=== PATIENT | female | born 1955 | race Caucasian/White ===

== ENCOUNTER 2020-03-13 20:23 | Inpatient (IN) | payer MEDICARE, SELFPAY ==
[2020-03-13 20:30] VITALS: BP 115/49; PULSE 57; RESP 26; TEMP 36.4; O2SAT 95; BMI 35.4
--- NOTE | 2020-03-13 21:36 | ED_ITS ---
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 Mode of arrival: ambulatory Limitations: no limitations History of Present Illness MD complaint: shortness of breath Onset (ago): day(s) (5) Severity: moderate Context: none known Associated symptoms: dry cough and chest pain Asthma History: childhood onset Treatments Prior to Arrival: inhaled bronchodilator Related Data Home Medications Medication Instructions Recorded Confirmed albuterol sulfate [Ventolin HFA] 2 puff PO Q6H PRN 03/14/20 03/14/20 anastrozole 1 tab PO DAILY 03/14/20 03/14/20 aspirin 1 tab PO DAILY 03/14/20 03/14/20 benzonatate 1 cap PO TID PRN 03/14/20 03/14/20 budesonide-formoterol [Symbicort] 2 puff PO Q12H 03/14/20 03/14/20 cholecalciferol (vitamin D3) 1 cap PO DAILY 03/14/20 03/14/20 clotrimazole applic TOPICAL BID 03/14/20 cyanocobalamin (vitamin B-12) 1 tab PO DAILY 03/14/20 03/14/20 diclofenac sodium g TOPICAL BID 03/14/20 fluticasone furoate-vilanterol 1 puff PO DAILY 03/14/20 03/14/20 [Breo Ellipta] furosemide 1 tab PO DAILY 03/14/20 03/14/20 gabapentin 1 tab PO TID 03/14/20 03/14/20 hydroxyzine HCl 1 tab PO DAILY PRN 03/14/20 03/14/20 insulin regular hum U-500 conc unit SUBCUT 03/14/20 [Humulin R U-500 (Conc) Kwikpen] linagliptin [Tradjenta] 1 tab PO DAILY 03/14/20 03/14/20 losartan 1 tab PO DAILY 03/14/20 03/14/20 metformin 1 tab PO DAILY 03/14/20 03/14/20 metoprolol tartrate 1 tab PO TID 03/14/20 03/14/20 mirtazapine 1 tab PO BEDTIME 03/14/20 03/14/20 omega-3 fatty acids-fish oil [Fish 1 cap PO BID 03/14/20 03/14/20 Oil] omeprazole 1 cap PO DAILY 03/14/20 03/14/20 oxycodone-acetaminophen 1 tab PO QID PRN 03/14/20 03/14/20 pravastatin 1 tab PO DAILY 03/14/20 03/14/20 sertraline 1 tab PO QAM 03/14/20 03/14/20 zafirlukast 1 tab PO BID 03/14/20 03/14/20 Allergies Allergy/AdvReac Type Severity Reaction Status Date / Time tramadol [TRAMADOL] Allergy Severe THROAT, Unverified 02/06/20 18:12 LIPS SWELLING, latex [LATEX] Allergy Intermediate RASH Unverified 02/06/20 18:12 IV plastic insert Allergy Unknown Uncoded 12/24/19 00:00 Review of Systems Review of Systems: Constitutional : No Fever, No Chills ENT/Mouth : No sore throat, No Rhinorrhea, No Swallowing Difficulty Eyes: No Eye Pain, No Swelling, No Redness Cardiovascular : positve Chest Pain, positive SOB, No Orthopnea, positive Edema Respiratory : pos Cough, No Sputum, positive Wheezing, positive dyspnea Gastrointestinal : No Nausea, No Vomiting, No Diarrhea, No abdominal Pain, No Hematochezia, No Melena Genitourinary : No Dysuria, No Urinary Frequency, No Hematuria Musculoskeletal : No joint pain, No Myalgias Skin : No Skin Lesions, No rash Neuro : No Weakness, No Numbness, No Dizziness, No Headache Psych : No Anxiety/Panic, No Depression Heme/Lymph: No Bruising, No Lymphadenopathy Endocrine : No Polyuria, No Polydipsia All other systems reviewed and are negative PMFSH Past Medical History Medical History Asthma Breast cancer Depression Diabetes mellitus, type 2 GERD (gastroesophageal reflux disease) Hyperlipidemia Hypertension Surgical History H/O: section Hx of appendectomy Social History Social History (Updated 03/13/20 @ 21:46 by Daylin Joyner DO) Alcohol intake: never Smoking Status: Former smoker Use of substances other than those prescribed or required for medical reasons: No Advance Directives: No Advance Directives Information Provided: Yes Physical Exam Vital Signs: Vital Signs: Vital Signs Temp Pulse Resp BP Pulse Ox 03/14/20 01:28 57 20 117/35 L 99 03/14/20 00:16 60 17 127/46 L 99 03/13/20 23:04 99.3 F 56 181 H 98 03/13/20 22:13 98.5 F 52 14 128/42 L 92 03/13/20 20:30 97.5 F 57 26 H 115/49 L 95 Body Mass Index 35.4 Appearance: Alert. Oriented X3. No acute distress. Eyes: Pupils equal, round and reactive to light. ENT: Pharynx normal. Neck: Normal inspection. Neck supple. CVS: Normal heart rate and rhythm. Pulses normal. Respiratory: No respiratory distress. Breath sounds decreased throughout Abdomen: Soft and nontender. Skin: Skin warm and dry. Normal skin color. Normal skin turgor. Extremities: bilateral pitting edema 1+ ankles, L ankle ttp and foot ttp NV intact, No calf ttp Neuro: Oriented X 3. No motor deficit. No sensory deficit. Course Course Course Narrative: RA sat after neb 90% now 99% on 2L NC, repeat 2.5mg albuterol neb ordered BNP > 1000 which is hightest for patient, IV lasix ordered CTA canceled, ddimer ordered she has CRI, CXR ordered, suspect volume overload, DVT studies ordered, VQ ordered for AM no significant rise in troponin signed out to Dr. Espana pending US and admission Procedures Orthopedic Splinting/Casting Injury #1: Side: left Lower Extremity Injury Location: ankle Lower Extremity Immobilizer: posterior splint and stirrup splint MDM - Asthma MDM Narrative Medical decision making narrative: 64 yo female with hx of breast cancer on oral medications, asthma here with 5 days of dyspnea and chest pain will need labs, CTA:PE given known prior malignancy, 5mg albuterol, IV steroids, rolled her L ankle prior to arrival no other injuries xray of ankle and foot ordered, dispo per results and findings Lab Data Result diagrams: 03/13/20 22:24 03/13/20 23:03 Labs: Lab Results 03/13/20 03/13/20 03/13/20 Range/Units 22:24 22:24 22:24 WBC 13.5 H (4.8-10.8) X10*3/uL RBC 3.66 L (4.20-5.50) X10*6/uL Hgb 10.3 L (12.0-16.0) g/dl Hct 30.7 L (37-47) % MCV 83.9 (80-98) fL MCH 28.1 (27.0-33.0) pg MCHC 33.6 (31.0-35.0) g/dl RDW 14.6 (11.0-16.0) % Plt Count 237 (160-400) X10*3/uL MPV 10.3 (9.4-12.3) fL Immature Gran % (Auto) 1.7 H (0.0-0.4) % Neut % (Auto) 88.6 H (45-73) % Lymph % (Auto) 6.5 L (20-40) % Harding % (Auto) 2.5 (2-11) % Eos % (Auto) 0.4 (0-4) % Baso % (Auto) 0.3 (0-2) % Lymph # (Auto) 0.9 L (1.2-4.9) X10*3/uL Harding # (Auto) 0.3 (0.1-1.2) X10*3/uL Eos # (Auto) 0.1 (0.0-0.4) X10*3/uL Baso # (Auto) 0.0 (0.0-0.2) X10*3/uL Abs Immat Gran (auto) 0.23 H (0.00-0.03) X10*3/uL Absolute Neuts (auto) 11.9 H (2.0-8.3) X10*3/uL Absolute Nucleated RBC 0.000 (0.0-0.012) X10*3/uL Nucleated RBC % (auto) 0.0 (0.0-0.2) /100WBC PT 11.8 (10.8-13.0) SEC INR 1.0 (0.9-1.1) APTT 31.5 (24.1-38.0) SEC D-Dimer 805 NG/ML Sodium (135-145) mmol/L Potassium (3.3-5.1) mmol/l Chloride (96-108) mmol/L Carbon Dioxide (22-29) mmol/L Anion Gap (12-20) BUN (9-16) mg/dL Creatinine (0.5-1.4) mg/dL Estim Creat Clear Calc Estimated GFR Random Glucose (60-115) mg/dL Lactic Acid (0.5-2.0) mmol/L Calcium (8.4-10.2) mg/dL Troponin I High Sens 112.5 H (<3.5-17.0) ng/L B-Natriuretic Peptide 1028 H (<100) pg/mL Coronavirus (PCR) (Negative) 03/13/20 03/13/20 03/13/20 Range/Units 23:03 23:04 23:51 WBC (4.8-10.8) X10*3/uL RBC (4.20-5.50) X10*6/uL Hgb (12.0-16.0) g/dl Hct (37-47) % MCV (80-98) fL MCH (27.0-33.0) pg MCHC (31.0-35.0) g/dl RDW (11.0-16.0) % Plt Count (160-400) X10*3/uL MPV (9.4-12.3) fL Immature Gran % (Auto) (0.0-0.4) % Neut % (Auto) (45-73) % Lymph % (Auto) (20-40) % Harding % (Auto) (2-11) % Eos % (Auto) (0-4) % Baso % (Auto) (0-2) % Lymph # (Auto) (1.2-4.9) X10*3/uL Harding # (Auto) (0.1-1.2) X10*3/uL Eos # (Auto) (0.0-0.4) X10*3/uL Baso # (Auto) (0.0-0.2) X10*3/uL Abs Immat Gran (auto) (0.00-0.03) X10*3/uL Absolute Neuts (auto) (2.0-8.3) X10*3/uL Absolute Nucleated RBC (0.0-0.012) X10*3/uL Nucleated RBC % (auto) (0.0-0.2) /100WBC PT (10.8-13.0) SEC INR (0.9-1.1) APTT (24.1-38.0) SEC D-Dimer NG/ML Sodium 137 (135-145) mmol/L Potassium 5.6 H (3.3-5.1) mmol/l Chloride 103 (96-108) mmol/L Carbon Dioxide 22 (22-29) mmol/L Anion Gap 18 (12-20) BUN 30 H (9-16) mg/dL Creatinine 1.57 H (0.5-1.4) mg/dL Estim Creat Clear Calc 29.8 Estimated GFR 33 Random Glucose 136 H (60-115) mg/dL Lactic Acid 1.8 (0.5-2.0) mmol/L Calcium 8.7 (8.4-10.2) mg/dL Troponin I High Sens (<3.5-17.0) ng/L B-Natriuretic Peptide (<100) pg/mL Coronavirus (PCR) NEGATIVE (Negative) 03/14/20 Range/Units 00:35 WBC (4.8-10.8) X10*3/uL RBC (4.20-5.50) X10*6/uL Hgb (12.0-16.0) g/dl Hct (37-47) % MCV (80-98) fL MCH (27.0-33.0) pg MCHC (31.0-35.0) g/dl RDW (11.0-16.0) % Plt Count (160-400) X10*3/uL MPV (9.4-12.3) fL Immature Gran % (Auto) (0.0-0.4) % Neut % (Auto) (45-73) % Lymph % (Auto) (20-40) % Harding % (Auto) (2-11) % Eos % (Auto) (0-4) % Baso % (Auto) (0-2) % Lymph # (Auto) (1.2-4.9) X10*3/uL Harding # (Auto) (0.1-1.2) X10*3/uL Eos # (Auto) (0.0-0.4) X10*3/uL Baso # (Auto) (0.0-0.2) X10*3/uL Abs Immat Gran (auto) (0.00-0.03) X10*3/uL Absolute Neuts (auto) (2.0-8.3) X10*3/uL Absolute Nucleated RBC (0.0-0.012) X10*3/uL Nucleated RBC % (auto) (0.0-0.2) /100WBC PT (10.8-13.0) SEC INR (0.9-1.1) APTT (24.1-38.0) SEC D-Dimer NG/ML Sodium (135-145) mmol/L Potassium (3.3-5.1) mmol/l Chloride (96-108) mmol/L Carbon Dioxide (22-29) mmol/L Anion Gap (12-20) BUN (9-16) mg/dL Creatinine (0.5-1.4) mg/dL Estim Creat Clear Calc Estimated GFR Random Glucose (60-115) mg/dL Lactic Acid (0.5-2.0) mmol/L Calcium (8.4-10.2) mg/dL Troponin I High Sens 125.5 H (<3.5-17.0) ng/L B-Natriuretic Peptide (<100) pg/mL Coronavirus (PCR) (Negative) ECG Data Attestation: I personally reviewed and interpreted this ECG as follows: ECG interpretation date: 03/13/20 ECG interpretation time: 22:21 Interpretation: Rate: 51 Rhythm: sinus bradycardia Jackson: normal Normal P waves. Normal [place]. Normal QRS complex. ST T wave : normal qTC: normal prior studies: no acute ischemia The study has been interpreted contemporaneously by me. . Discharge Plan Discharge Clinical Impression: Elevated troponin Asthma with acute exacerbation Qualifiers: Asthma severity: moderate Asthma persistence: persistent Qualified Code(s): J45.41 - Moderate persistent asthma with (acute) exacerbation Fibula fracture Qualifiers: Encounter type: initial encounter Fibula location: distal Fracture type: closed Fracture morphology: other fracture Laterality: left Qualified Code(s): S82.832A - Other fracture of upper and lower end of left fibula, initial encounter for closed fracture Congestive heart failure Qualifiers: Heart failure type: unspecified Heart failure chronicity: acute Qualified Code(s): I50.9 - Heart failure, unspecified Prescriptions: No Action furosemide 40 mg tablet 1 tab PO DAILY RF: 0 metformin 500 mg tablet 1 tab PO DAILY RF: 0 anastrozole 1 mg tablet 1 tab PO DAILY RF: 0 gabapentin 600 mg tablet 1 tab PO TID RF: 0 sertraline 100 mg tablet 1 tab PO QAM RF: 0 cyanocobalamin (vitamin B-12) 1,000 mcg tablet 1 tab PO DAILY RF: 0 aspirin 81 mg tablet,delayed release (DR/EC) 1 tab PO DAILY RF: 0 oxycodone-acetaminophen 5-325 mg tablet 1 tab PO QID PRN (Reason: pain) RF: 0 pravastatin 80 mg tablet 1 tab PO DAILY RF: 0 benzonatate 100 mg capsule 1 cap PO TID PRN (Reason: cough) RF: 0 zafirlukast 20 mg tablet 1 tab PO BID RF: 0 omeprazole 20 mg capsule,delayed release(DR/EC) 1 cap PO DAILY RF: 0 mirtazapine 15 mg tablet 1 tab PO BEDTIME RF: 0 albuterol sulfate [Ventolin HFA] 90 mcg/actuation HFA aerosol inhaler 2 puff PO Q6H PRN (Reason: wheezing) RF: 0 hydroxyzine HCl 10 mg tablet 1 tab PO DAILY PRN (Reason: itch) RF: 0 losartan 100 mg tablet 1 tab PO DAILY RF: 0 clotrimazole 1 % cream topical BID RF: 0 cholecalciferol (vitamin D3) 125 mcg (5,000 unit) capsule 1 cap PO DAILY RF: 0 metoprolol tartrate 25 mg tablet 1 tab PO TID RF: 0 Fish Oil 340-1,000 mg capsule 1 cap PO BID RF: 0 budesonide-formoterol [Symbicort] 160-4.5 mcg/actuation HFA aerosol inhaler 2 puff PO Q12H RF: 0 diclofenac sodium 1 % gel topical BID RF: 0 Tradjenta 5 mg tablet 1 tab PO DAILY RF: 0 Breo Ellipta 100-25 mcg/dose blister with device 1 puff PO DAILY RF: 0 Humulin R U-500 (Conc) Kwikpen 500 unit/mL (3 mL) insulin pen subcut RF: 0
--- NOTE | 2020-03-13 21:39 | ECG_ITS ---
Test Reason : SOB Blood Pressure : / mmHG Vent. Rate : 051 BPM Atrial Rate : 051 BPM P-R Int : 150 ms QRS Dur : 072 ms QT Int : 434 ms P-R-T Axes : 073 013 057 degrees QTc Int : 400 ms Sinus bradycardia Otherwise normal ECG When compared with ECG of 14-JUL-2019 10:10, Heart rate has decreased Referred By: Daylin Joyner Electronically Signed By:KIMANI FISCHER MD
[2020-03-13] MEDS: Albuterol Sulfate (0.083%) 2.5 MG/3 ML VIAL.NEB 5 MG INHALE (21:47)
--- NOTE | 2020-03-13 21:48 | XR_ITS ---
EXAMINATION: LEFT FOOT. LEFT ANKLE. CLINICAL INFORMATION: Fall. COMPARISON: None TECHNIQUE: 2 views left foot and 2 views left ankle. FINDINGS: LEFT ANKLE: There is a nondisplaced distal fibular fracture with moderate lateral malleolar soft tissue swelling. No additional fractures seen. The ankle mortise and subtalar joints are normal. LEFT FOOT: There is no visible acute fracture, dislocation or subluxation seen. There is a moderate retrocalcaneal heel spur. Soft tissues are unremarkable. XR/XR ankle LT 2V IMPRESSION: Nondisplaced oblique fracture distal fibula with moderate lateral malleolar soft tissue swelling. Unremarkable left foot exam except for a moderate-sized retrocalcaneal heel spur.
--- NOTE | 2020-03-13 21:48 | XR_ITS ---
EXAMINATION: LEFT FOOT. LEFT ANKLE. CLINICAL INFORMATION: Fall. COMPARISON: None TECHNIQUE: 2 views left foot and 2 views left ankle. FINDINGS: LEFT ANKLE: There is a nondisplaced distal fibular fracture with moderate lateral malleolar soft tissue swelling. No additional fractures seen. The ankle mortise and subtalar joints are normal. LEFT FOOT: There is no visible acute fracture, dislocation or subluxation seen. There is a moderate retrocalcaneal heel spur. Soft tissues are unremarkable. XR/XR foot LT 2V IMPRESSION: Nondisplaced oblique fracture distal fibula with moderate lateral malleolar soft tissue swelling. Unremarkable left foot exam except for a moderate-sized retrocalcaneal heel spur.
[2020-03-13 22:13] VITALS: BP 128/42; PULSE 52; RESP 14; TEMP 36.9; O2SAT 92
[2020-03-13] MEDS: methylPREDNISolone Sod Succ/PF 125 MG/2 ML VIAL 60 MG IVPUSH (22:29)
[2020-03-13 22:31] LABS: MANUAL DIFF FLAG NO
[2020-03-13 22:32] LABS: Basophils Percent Auto 0.3 % (0-2); Eosinophils Absolute Auto 0.1 X10*3/uL (0.0-0.4); Eosinophils Percent Auto 0.4 % (0-4); Hematocrit 30.7 % (37-47); Hemoglobin 10.3 g/dl (12.0-16.0); Imm Gran Abs Auto 0.23 X10*3/uL (0.00-0.03); Imm Gran Pct Auto 1.7 % (0.0-0.4); Lymphocytes Absolute Auto 0.9 X10*3/uL (1.2-4.9); Lymphocytes Percent Auto 6.5 % (20-40); Mean Corpuscular HGB Conc 33.6 g/dl (31.0-35.0); Mean Corpuscular Hemoglobin 28.1 pg (27.0-33.0); Mean Corpuscular Volume 83.9 fL (80-98); Mean Platelet Volume 10.3 fL (9.4-12.3); Monocytes Absolute Auto 0.3 X10*3/uL (0.1-1.2); Monocytes Percent Auto 2.5 % (2-11); Neutrophils Absolute Auto 11.9 X10*3/uL (2.0-8.3); Neutrophils Percent Auto 88.6 % (45-73); Platelet Count 237 X10*3/uL (160-400); Red Blood Count 3.66 X10*6/uL (4.20-5.50); Red Cell Distribution Width 14.6 % (11.0-16.0); White Blood Count 13.5 X10*3/uL (4.8-10.8)
[2020-03-13] MEDS: Albuterol Sulfate (0.083%) 2.5 MG/3 ML VIAL.NEB INHALE (22:33)
[2020-03-13] MEDS: Morphine Sulfate 4 MG/ML CARTRIDGE IVPUSH (22:33)
[2020-03-13] MEDS: ondansetron HCL 4 MG/2 ML VIAL IVPUSH (22:34)
[2020-03-13 22:40] LABS: Prothrombin Time 11.8 SEC (10.8-13.0)
[2020-03-13 22:43] LABS: Partial Thromboplastin Time 31.5 SEC (24.1-38.0)
--- NOTE | 2020-03-13 22:49 | PC.NURSE ---
Pt desat to 90-92 on room air, lung sounds remain diminished throughout, speaks in clear and full sentences. tech at bedside to apply l ankle cast
[2020-03-13 23:04] VITALS: PULSE 56; RESP 181; TEMP 37.4; O2SAT 98
--- NOTE | 2020-03-13 23:05 | PC.NURSE ---
report taken from olamide. pt has recieved two breathing treatments hx of asthma requires oxygen aty this time desats to 90's without. does not rely on oxygen at home. 98% on 2 nc. otherwise patient stable. plan for more labs, bc x 2
[2020-03-13 23:07] LABS: Troponin-I High Sensitivity 112.5 ng/L (<3.5-17.0)
[2020-03-13 23:48] LABS: B Type Natriuretic Peptide 1028 pg/mL (<100)
[2020-03-13] MEDS: Aspirin 81 MG TAB.CHEW 162 MG PO (23:50)
[2020-03-13 23:55] LABS: Lactic Acid 1.8 mmol/L (0.5-2.0)
[2020-03-13 23:57] LABS: Anion Gap 18 (12-20); Blood Urea Nitrogen 30 mg/dL (9-16); Calcium 8.7 mg/dL (8.4-10.2); Carbon Dioxide 22 mmol/L (22-29); Chloride 103 mmol/L (96-108); Creatinine Clr Calc Pharmacy 29.8; Estimated Glomerular Filt Rate 33; Glucose Random 136 mg/dL (60-115); Potassium 5.6 mmol/l (3.3-5.1); Sodium 137 mmol/L (135-145)
[2020-03-14] VITALS (9 sets, daily range): BP systolic 112–153; BP diastolic 35–76; PULSE 54–60; RESP 16–24; TEMP 35.9–36.8; O2SAT 95–99
--- NOTE | 2020-03-14 | NM_ITS ---
EXAMINATION: NM LUNG IMAGE PERFUSION CLINICAL INFORMATION: Worsening SOB. Elevated d-dimer. COMPARISON: None TECHNIQUE: Following intravenous administration of 4 mCi of technetium 99m MAA images of both lungs are obtained in multiple projections. Ventilation study was not performed. FINDINGS: There is normal perfusion seen to all segments of both both lobes of the lungs. No perfusion defects seen. NM/NM pul perfusion IMPRESSION: Normal perfusion scan.
--- NOTE | 2020-03-14 00:01 | XR_ITS ---
EXAMINATION: XR CHEST CLINICAL INFORMATION: Dyspnea COMPARISON: 07/14/2019 TECHNIQUE: Frontal view of the chest was obtained. FINDINGS: Lung volumes are symmetric. No focal consolidation is seen. Mild right basilar atelectasis is suspected, similar to prior accounting for differences in patient positioning. No evidence of pneumothorax or pleural effusion. Cardiac size appears within normal limits, with assessment somewhat limited due to patient rotation. No acute osseous findings are seen. Right axillary clips are noted. XR/XR chest 1V IMPRESSION: No acute cardiopulmonary findings. Suspect mild right basilar atelectasis.
[2020-03-14] MEDS: Furosemide 20 MG/2 ML VIAL IVPUSH ×2 (00:24→00:55)
[2020-03-14 00:28] LABS: D Dimer 805 NG/ML
--- NOTE | 2020-03-14 00:39 | US_ITS ---
EXAMINATION: US VENOUS ULTRASOUND WITH DOPPLER LOWER EXTREMITY, BILATERAL CLINICAL INFORMATION: Pain, swelling COMPARISON: None TECHNIQUE: Ultrasound of the deep veins is performed from the hip to the calf with compression sonography and color and pulse Doppler assessment. Spectral analysis with color-flow imaging is performed. FINDINGS: RIGHT: There is normal venous compression and respiratory variation and augmented flow. The visualized common femoral vein, superficial femoral vein, profunda femoral vein, popliteal vein, and the trifurcation region shows no evidence of deep venous thrombosis. There is no significant popliteal fossa cyst. LEFT: There is normal venous compression and respiratory variation and augmented flow. The visualized common femoral vein, superficial femoral vein, profunda femoral vein, popliteal vein, and the trifurcation region shows no evidence of deep venous thrombosis. Of note, the posterior tibial vein could not be imaged due to presence of a cast. There is no significant popliteal fossa cyst. If the patient's symptoms persist, followup ultrasound in 5 days 7 days might be of value to exclude proximal propagation from a non-visualized calf vein. US/US venous duplex LE BI IMPRESSION: No DVT demonstrated in the bilateral lower extremities.
--- NOTE | 2020-03-14 00:56 | PC.NURSE ---
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
[2020-03-14 01:07] LABS: SARS COV2 PCR INHOUSE NEGATIVE (Negative)
[2020-03-14 01:32] LABS: Troponin-I High Sensitivity 125.5 ng/L (<3.5-17.0)
--- NOTE | 2020-03-14 01:50 | PC.NURSE ---
us at bedside
[2020-03-14 01:54] LABS: Alanine Aminotransferase 84 U/L (0-31); Albumin Level 3.5 g/dL (3.5-5.0); Alkaline Phosphatase 136 U/L (39-117); Anion Gap 17 (12-20); Aspartate Amino Transferase 82 U/L (5-31); Bilirubin Direct 0.2 mg/dL (0.0-0.5); Bilirubin Total 0.5 mg/dL (0.0-1.0); Blood Urea Nitrogen 29 mg/dL (9-16); Calcium 8.3 mg/dL (8.4-10.2); Carbon Dioxide 22 mmol/L (22-29); Chloride 102 mmol/L (96-108); Creatinine Clr Calc Pharmacy 30.3; Estimated Glomerular Filt Rate 34; Glucose Random 158 mg/dL (60-115); Magnesium 1.8 mg/dL (1.6-2.6); Potassium 6.2 mmol/l (3.3-5.1); Sodium 135 mmol/L (135-145); Total Protein 6.6 g/dL (6.5-8.0)
--- NOTE | 2020-03-14 02:40 | PC.NURSE ---
pt up to bed side commode with 1 assist. pt voided 650 cc or urine.
--- NOTE | 2020-03-14 03:28 | PC.NURSE ---
hospitalist at bedside
[2020-03-14 03:54] LABS: Anion Gap 17 (12-20); Blood Urea Nitrogen 30 mg/dL (9-16); Calcium 8.7 mg/dL (8.4-10.2); Carbon Dioxide 24 mmol/L (22-29); Chloride 103 mmol/L (96-108); Creatinine Clr Calc Pharmacy 29.6; Estimated Glomerular Filt Rate 33; Glucose Random 90 mg/dL (60-115); Potassium 4.9 mmol/l (3.3-5.1); Sodium 139 mmol/L (135-145)
--- NOTE | 2020-03-14 04:18 | PM.IMHP ---
History of Present Illness Date of Service: 03/14/20 Chief Complaint: SOB 64 y/o female with extensive PMHX including Asthma who presented from home due to worsening SOB. Per history provided by the patient, her symptoms started approximately 10 days, which was precipitated more with exertion. Was seen by her PCP and started on prednisone 5 days ago but her symptoms did not improve. Now reports symptoms even at rest. While waiting today to come to the ED patient tripped and fell on the floor hiting her left foot on impact. On presentation to the ED patient is found to be hemodynamically stable, no evidence of fever. WBC of 13.5, creatinine of 1.5 (baseline), LFT's / alk phosph elevated, troponin from 112 to 125.5, BNP of 1028. Covid negative. Patient was given several doses of albuterol inhaler as well as lasix IV and solu-medrol. D dimer found to be elevated which raised concern for possible PE. Dopple of LE negative for DVT. Left foot xray positive for nondisplace oblique fracture of distal fibula. CXR clear, possible evidence of atelectasis. Decision for admission was given. Patient seen and examined at the bedside, laying down in bed in no acute distress. ROS as above otherwise negative. Physical exam positive for decreased bilateral breath sounds, no rales or wheezes on exam. Pitting edema +1 of bilateral LE, Cast of the left foot is evident. PMHX: 1. Type 2 diabetes mellitus. 2. Hyperlipidemia. 3. Hypertension. 4. Depression. 5. Insomnia. 6. Obstructive sleep apnea, for which she uses CPAP. 7. CKD stage III. 8. Moderate persistent asthma. 9. GERD 10.Sciatica PSX: 1. Right shoulder surgery. 2. section x3. 3. Cholecystectomy. 4. Total abdominal hysterectomy. Toxic habits: No hx of alcohol abuse, smoking or IVDA Review of Systems Cardiovascular: Cardiovascular: Reports dyspnea Respiratory: Respiratory: Reports dyspnea [facility] Medical History (Updated 03/14/20 @ 04:43 by Davonte Virk MD) Asthma Breast cancer Depression Diabetes mellitus, type 2 GERD (gastroesophageal reflux disease) Hyperlipidemia Hypertension Functional capacity: independent ambulation Surgical History H/O: section Hx of appendectomy Social History Alcohol intake: never Smoking Status: Former smoker Use of substances other than those prescribed or required for medical reasons: No Advance Directives: No Advance Directives Information Provided: Yes Meds Allergies Allergy/AdvReac Type Severity Reaction Status Date / Time tramadol [TRAMADOL] Allergy Severe THROAT, Unverified 02/06/20 18:12 LIPS SWELLING, latex [LATEX] Allergy Intermediate RASH Unverified 02/06/20 18:12 IV plastic insert Allergy Unknown Uncoded 12/24/19 00:00 Home Medications Medication Instructions Recorded Confirmed Type albuterol sulfate [Ventolin HFA] 2 puff PO Q6H PRN 03/14/20 03/14/20 History anastrozole 1 tab PO DAILY 03/14/20 03/14/20 History aspirin 1 tab PO DAILY 03/14/20 03/14/20 History benzonatate 1 cap PO TID PRN 03/14/20 03/14/20 History budesonide-formoterol [Symbicort] 2 puff PO Q12H 03/14/20 03/14/20 History cholecalciferol (vitamin D3) 1 cap PO DAILY 03/14/20 03/14/20 History clotrimazole applic TOPICAL BID 03/14/20 History cyanocobalamin (vitamin B-12) 1 tab PO DAILY 03/14/20 03/14/20 History diclofenac sodium g TOPICAL BID 03/14/20 History fluticasone furoate-vilanterol 1 puff PO DAILY 03/14/20 03/14/20 History [Breo Ellipta] furosemide 1 tab PO DAILY 03/14/20 03/14/20 History gabapentin 1 tab PO TID 03/14/20 03/14/20 History hydroxyzine HCl 1 tab PO DAILY PRN 03/14/20 03/14/20 History insulin regular hum U-500 conc unit SUBCUT 03/14/20 History [Humulin R U-500 (Conc) Kwikpen] linagliptin [Tradjenta] 1 tab PO DAILY 03/14/20 03/14/20 History losartan 1 tab PO DAILY 03/14/20 03/14/20 History metformin 1 tab PO DAILY 03/14/20 03/14/20 History metoprolol tartrate 1 tab PO TID 03/14/20 03/14/20 History mirtazapine 1 tab PO BEDTIME 03/14/20 03/14/20 History omega-3 fatty acids-fish oil [Fish 1 cap PO BID 03/14/20 03/14/20 History Oil] omeprazole 1 cap PO DAILY 03/14/20 03/14/20 History oxycodone-acetaminophen 1 tab PO QID PRN 03/14/20 03/14/20 History pravastatin 1 tab PO DAILY 03/14/20 03/14/20 History sertraline 1 tab PO QAM 03/14/20 03/14/20 History zafirlukast 1 tab PO BID 03/14/20 03/14/20 History Physical Exam Vital Signs and Narrative: Vital Signs: Last Vital Signs Temp 99.3 F 03/13/20 23:04 Pulse 56 03/14/20 03:45 Resp 20 03/14/20 03:45 BP 153/67 H 03/14/20 03:45 Pulse Ox 95 03/14/20 03:45 Body Mass Index 35.4 Const: General: cooperative, healthy appearing and comfortable Orientation/consciousness: oriented to person, oriented to place and oriented to time HENMT: Head: Yes normal to inspection Eyes: General: appearance normal, both eyes and all related structures Neck: Yes normal visual inspection Chest: Chest palpation & inspection: normal inspection of the chest Resp: Effort & Inspection: normal respiratory effort Auscultation: diminished lung sounds Cardio: Jugular venous distension: no JVD Rate: regular rate Rhythm: regular rhythm Heart sounds: S1 normal heart sound present and S2 normal heart sound present GI: Inspection: Yes normal to inspection Skin: General skin exam: no rashes or lesions noted Neuro: General: oriented to person, oriented to place and oriented to time Extrem: Left lower extremity: full ROM (Cast applied to Left foot) Psych: Appearance: grossly normal Results Labs Labs: Laboratory Tests 03/13/20 03/13/20 03/13/20 22:24 22:24 22:24 WBC 13.5 H RBC 3.66 L Hgb 10.3 L Hct 30.7 L MCV 83.9 MCH 28.1 MCHC 33.6 RDW 14.6 Plt Count 237 MPV 10.3 Immature Gran % (Auto) 1.7 H Neut % (Auto) 88.6 H Lymph % (Auto) 6.5 L [place] % (Auto) 2.5 Eos % (Auto) 0.4 Baso % (Auto) 0.3 Lymph # (Auto) 0.9 L [place] # (Auto) 0.3 Eos # (Auto) 0.1 Baso # (Auto) 0.0 Abs Immat Gran (auto) 0.23 H Absolute Neuts (auto) 11.9 H Absolute Nucleated RBC 0.000 Nucleated RBC % (auto) 0.0 PT 11.8 INR 1.0 APTT 31.5 D-Dimer 805 Sodium 135 Potassium 6.2 H* Chloride 102 Carbon Dioxide 22 Anion Gap 17 BUN 29 H Creatinine 1.54 H Estim Creat Clear Calc 30.3 Estimated GFR 34 Random Glucose 158 H Lactic Acid Calcium 8.3 L Magnesium 1.8 Total Bilirubin 0.5 Direct Bilirubin 0.2 AST 82 H ALT 84 H Alkaline Phosphatase 136 H Troponin I High Sens B-Natriuretic Peptide Total Protein 6.6 Albumin 3.5 Coronavirus (PCR) 03/13/20 03/13/20 03/13/20 22:24 23:03 23:04 WBC RBC Hgb Hct MCV MCH MCHC RDW Plt Count MPV Immature Gran % (Auto) Neut % (Auto) Lymph % (Auto) [place] % (Auto) Eos % (Auto) Baso % (Auto) Lymph # (Auto) [place] # (Auto) Eos # (Auto) Baso # (Auto) Abs Immat Gran (auto) Absolute Neuts (auto) Absolute Nucleated RBC Nucleated RBC % (auto) PT INR APTT D-Dimer Sodium 137 Potassium 5.6 H Chloride 103 Carbon Dioxide 22 Anion Gap 18 BUN 30 H Creatinine 1.57 H Estim Creat Clear Calc 29.8 Estimated GFR 33 Random Glucose 136 H Lactic Acid 1.8 Calcium 8.7 Magnesium Total Bilirubin Direct Bilirubin AST ALT Alkaline Phosphatase Troponin I High Sens 112.5 H B-Natriuretic Peptide 1028 H Total Protein Albumin Coronavirus (PCR) 03/13/20 03/14/20 03/14/20 23:51 00:35 03:13 WBC RBC Hgb Hct MCV MCH MCHC RDW Plt Count MPV Immature Gran % (Auto) Neut % (Auto) Lymph % (Auto) [place] % (Auto) Eos % (Auto) Baso % (Auto) Lymph # (Auto) [place] # (Auto) Eos # (Auto) Baso # (Auto) Abs Immat Gran (auto) Absolute Neuts (auto) Absolute Nucleated RBC Nucleated RBC % (auto) PT INR APTT D-Dimer Sodium 139 Potassium 4.9 Chloride 103 Carbon Dioxide 24 Anion Gap 17 BUN 30 H Creatinine 1.58 H Estim Creat Clear Calc 29.6 Estimated GFR 33 Random Glucose 90 Lactic Acid Calcium 8.7 Magnesium Total Bilirubin Direct Bilirubin AST ALT Alkaline Phosphatase Troponin I High Sens 125.5 H B-Natriuretic Peptide Total Protein Albumin Coronavirus (PCR) NEGATIVE Assessment and Plan (1) Asthma with acute exacerbation: Qualifiers: Asthma persistence: persistent Asthma severity: moderate Qualified Code(s): J45.41 - Moderate persistent asthma with (acute) exacerbation Status: Acute S/p multiple dose of albuterol treatment and one dose of solumedrol continue with Solumedrol as ordered and taper down as tolerated Continue with O2 therapy and titrate off as tolerated Will not start antbx given there is no evidence of any acute infectious process in the lung Covid test negative Ventilation-perfusion scan ordered to r/o PE (PE unlikely given no risk factors, elevation likely due to poor renla function). Doppler LE negative for DVT (2) Congestive heart failure: Qualifiers: Heart failure chronicity: acute Heart failure type: unspecified Qualified Code(s): I50.9 - Heart failure, unspecified Status: Acute S/p Lasix diuresis in the ED Continue with small IV lasix dose as ordered Follow up 2D echo in the am Cardiology consult in the am (3) Fibula fracture: Qualifiers: Encounter type: initial encounter Fibula location: distal Fracture morphology: other fracture Fracture type: closed Laterality: left Qualified Code(s): S82.832A - Other fracture of upper and lower end of left fibula, initial encounter for closed fracture Status: Acute Cast in place in LLE Ambulate as tolerated with NWB of LLE (4) Transaminitis: Status: Acute unknown etiology follow up US abdomen (5) Elevated troponin: Status: Acute Elevated troponin likely due to renal dysfunction troponin from 112 to 125.5. No evidence of chest pain Will continue to monitor for now quality assurance monitor chassis Cardiology evaluation in the am (6) D-dimer, elevated: Status: Acute Plan as stated above (7) Hypertension: Status: Acute conitnue with losartan home dose continue with aspirin home dose continue with metoprolol home dose (8) Diabetes mellitus, type 2: Status: Acute continue with insulin regimen as ordered (9) Peripheral neuropathy: Status: Acute continue with gabapentin home dose (10) CKD (chronic kidney disease): Status: Acute creatinine level baseline 1.5 (11) Hyperlipidemia: Status: Acute continue with statin home dose (12) Depression: Status: Acute continue with antidepressants home dose (13) Breast cancer: Problem details: s/p radiation and currently on oral hormones Status: Acute continue with anastrazole home dose
--- NOTE | 2020-03-14 05:20 | PC.NURSE ---
pending report to floor
--- NOTE | 2020-03-14 05:20 | PC.NURSE ---
pending report to floor
--- NOTE | 2020-03-14 05:51 | PC.NURSE ---
report given to ioana brooks on floor 462/2
[2020-03-14] MEDS: Heparin Sodium,Porcine 5,000 UNIT/ML VIAL 5000 UNIT SUBCUT ×3 (06:29→21:38)
[2020-03-14 08:10] LABS: Glucose, Whole Blood 96 mg/dL (60-115)
[2020-03-14] MEDS: Flu Vacc QS2020-21(6mos up)/PF 0.5 ML SYRINGE IM (08:25)
[2020-03-14] MEDS: Cholecalciferol (Vitamin D3) 25 MCG TABLET 125 MCG PO (08:30)
[2020-03-14] MEDS: 0.9 % Sodium Chloride Flush 3 ML SYRINGE IVFLUSH ×2 (08:30→15:55)
[2020-03-14] MEDS: Anastrozole 1 MG TABLET PO (08:30)
[2020-03-14] MEDS: Pravastatin Sodium 80 MG TABLET PO (08:31)
[2020-03-14] MEDS: Metoprolol Tartrate 25 MG TABLET PO ×3 (08:31→21:37)
[2020-03-14] MEDS: Aspirin Enteric Coated 81 MG TABLET.DR PO (08:31)
[2020-03-14] MEDS: Omeprazole 20 MG CAPSULE.DR PO (08:31)
[2020-03-14] MEDS: Losartan Potassium 50 MG TABLET 100 MG PO (08:31)
[2020-03-14] MEDS: Gabapentin 600 MG TABLET PO ×3 (08:31→21:37)
[2020-03-14 11:16] LABS: Glucose, Whole Blood 283 mg/dL (60-115)
--- NOTE | 2020-03-14 12:51 | PM.CNCAR ---
History of Present Illness History of Present Illness Date of Consult: March 14, 2020 Requesting physician: Salazar Short Chief complaint: ASTHMA/ASTHMA EXACERBATION/CHF EXACERBATION Narrative: This is a cardiology consultation regarding shortness of breath. Patient has numerous medical comorbidities. Current admission is for shortness of breath. She apparently has a history of asthma but no known cardiac problems. Denies any history of coronary disease myocardial infarction or cardiomyopathy or congestive heart failure or in fact any other cardiac issues in the past. The last several days, she has been getting increasingly shortness of breath. Apparently seen by PCP and put on prednisone but things did not get better. While waiting to come to the ER, she is somewhat tripped and fell down and hit her left foot on impact. So far, COVID negative. She is being treated for possible congestive heart failure as well as asthma exacerbation. Additionally, foot x-ray on the left side shows nondisplaced fracture of the distal fibula. Otherwise, she denies any clear anginal-type symptoms but has had nonspecific chest pains at different times. Review of Systems Review of Systems: Cardiac-positive for shortness of breath. No clear anginal-type symptoms. Mild leg swelling. No dizzy spells or syncopal episodes. Remainder of the 10 system review is negative. [facility] Past Medical History Medical History Asthma Breast cancer Depression Diabetes mellitus, type 2 GERD (gastroesophageal reflux disease) Hyperlipidemia Hypertension Functional capacity: independent ambulation Surgical History Surgical History H/O: section Hx of appendectomy Social History Social History Household Members: Spouse Housing: Apartment Do you presently have visiting nurse or other home services: No Alcohol intake: never Smoking Status: Former smoker Use of substances other than those prescribed or required for medical reasons: No Have you been hit, kicked, punched, or otherwise hurt by someone within the past year? If so, by whom?: No Do you feel safe in your current relationship?: Yes Is there a partner from a previous relationship who is making you feel unsafe now?: No Are you made to feel afraid or neglected: No [employer] Healthcare Practices: [employer] Advance Directives: No Advance Directives Information Provided: Yes Do you have thoughts of harming others: None Do you have a plan to hurt others: No Plan Recently lost weight without trying: Unsure Meds Allergies Allergy/AdvReac Type Severity Reaction Status Date / Time tramadol [TRAMADOL] Allergy Severe THROAT, Unverified 02/06/20 18:12 LIPS SWELLING, latex [LATEX] Allergy Intermediate RASH Unverified 02/06/20 18:12 IV plastic insert Allergy Unknown Uncoded 12/24/19 00:00 Home Medications Medication Instructions Recorded Confirmed Type albuterol sulfate [Ventolin HFA] 2 puff PO Q6H PRN 03/14/20 03/14/20 History anastrozole 1 tab PO DAILY 03/14/20 03/14/20 History aspirin 1 tab PO DAILY 03/14/20 03/14/20 History benzonatate 1 cap PO TID PRN 03/14/20 03/14/20 History budesonide-formoterol [Symbicort] 2 puff PO Q12H 03/14/20 03/14/20 History cholecalciferol (vitamin D3) 1 cap PO DAILY 03/14/20 03/14/20 History clotrimazole applic TOPICAL BID 03/14/20 History cyanocobalamin (vitamin B-12) 1 tab PO DAILY 03/14/20 03/14/20 History diclofenac sodium g TOPICAL BID 03/14/20 History fluticasone furoate-vilanterol 1 puff PO DAILY 03/14/20 03/14/20 History [Breo Ellipta] furosemide 1 tab PO DAILY 03/14/20 03/14/20 History gabapentin 1 tab PO TID 03/14/20 03/14/20 History hydroxyzine HCl 1 tab PO DAILY PRN 03/14/20 03/14/20 History insulin regular hum U-500 conc unit SUBCUT 03/14/20 History [Humulin R U-500 (Conc) Kwikpen] linagliptin [Tradjenta] 1 tab PO DAILY 03/14/20 03/14/20 History losartan 1 tab PO DAILY 03/14/20 03/14/20 History metformin 1 tab PO DAILY 03/14/20 03/14/20 History metoprolol tartrate 1 tab PO TID 03/14/20 03/14/20 History mirtazapine 1 tab PO BEDTIME 03/14/20 03/14/20 History omega-3 fatty acids-fish oil [Fish 1 cap PO BID 03/14/20 03/14/20 History Oil] omeprazole 1 cap PO DAILY 03/14/20 03/14/20 History oxycodone-acetaminophen 1 tab PO QID PRN 03/14/20 03/14/20 History pravastatin 1 tab PO DAILY 03/14/20 03/14/20 History sertraline 1 tab PO QAM 03/14/20 03/14/20 History zafirlukast 1 tab PO BID 03/14/20 03/14/20 History Physical Exam Vital Signs: Vital Signs: Vital Signs Temp Pulse Resp BP Pulse Ox 03/14/20 11:05 97.9 F 60 18 146/61 H 97 03/14/20 07:44 97.6 F 56 18 127/48 L 97 03/14/20 06:16 98.2 F 59 18 152/67 H 98 03/14/20 03:45 56 20 153/67 H 95 03/14/20 02:36 58 24 H 153/76 H 96 03/14/20 01:28 57 20 117/35 L 99 03/14/20 00:16 60 17 127/46 L 99 03/13/20 23:04 99.3 F 56 181 H 98 03/13/20 22:13 98.5 F 52 14 128/42 L 92 03/13/20 20:30 97.5 F 57 26 H 115/49 L 95 Body Mass Index 35.4 Comfortable, no distress No pallor, icterus or cyanosis HEENT -unremarkable JVD- normal Cardiac- normal heart sounds, no murmurs, gallops or rubs, normal PMI Respiratory-normal breath sounds bilaterally, no crackles, no wheeze Abdomen- soft, nontender Neuro- alert and oriented Lower extremities- trace edema, warm well perfused Results Labs and Meds Result diagrams: 03/13/20 22:24 03/14/20 03:13 Lab results: Laboratory Results - last 24 hr 03/13/20 03/13/20 03/13/20 22:24 22:24 22:24 WBC 13.5 H RBC 3.66 L Hgb 10.3 L Hct 30.7 L MCV 83.9 MCH 28.1 MCHC 33.6 RDW 14.6 Plt Count 237 MPV 10.3 Immature Gran % (Auto) 1.7 H Neut % (Auto) 88.6 H Lymph % (Auto) 6.5 L [place] % (Auto) 2.5 Eos % (Auto) 0.4 Baso % (Auto) 0.3 Lymph # (Auto) 0.9 L [place] # (Auto) 0.3 Eos # (Auto) 0.1 Baso # (Auto) 0.0 Abs Immat Gran (auto) 0.23 H Absolute Neuts (auto) 11.9 H Absolute Nucleated RBC 0.000 Nucleated RBC % (auto) 0.0 PT 11.8 INR 1.0 APTT 31.5 D-Dimer 805 Sodium 135 Potassium 6.2 H* Chloride 102 Carbon Dioxide 22 Anion Gap 17 BUN 29 H Creatinine 1.54 H Estim Creat Clear Calc 30.3 Estimated GFR 34 POC Glucose Random Glucose 158 H Lactic Acid Calcium 8.3 L Magnesium 1.8 Total Bilirubin 0.5 Direct Bilirubin 0.2 AST 82 H ALT 84 H Alkaline Phosphatase 136 H Troponin I High Sens B-Natriuretic Peptide Total Protein 6.6 Albumin 3.5 Coronavirus (PCR) 03/13/20 03/13/20 03/13/20 22:24 23:03 23:04 WBC RBC Hgb Hct MCV MCH MCHC RDW Plt Count MPV Immature Gran % (Auto) Neut % (Auto) Lymph % (Auto) [place] % (Auto) Eos % (Auto) Baso % (Auto) Lymph # (Auto) [place] # (Auto) Eos # (Auto) Baso # (Auto) Abs Immat Gran (auto) Absolute Neuts (auto) Absolute Nucleated RBC Nucleated RBC % (auto) PT INR APTT D-Dimer Sodium 137 Potassium 5.6 H Chloride 103 Carbon Dioxide 22 Anion Gap 18 BUN 30 H Creatinine 1.57 H Estim Creat Clear Calc 29.8 Estimated GFR 33 POC Glucose Random Glucose 136 H Lactic Acid 1.8 Calcium 8.7 Magnesium Total Bilirubin Direct Bilirubin AST ALT Alkaline Phosphatase Troponin I High Sens 112.5 H B-Natriuretic Peptide 1028 H Total Protein Albumin Coronavirus (PCR) 03/13/20 03/14/20 03/14/20 23:51 00:35 03:13 WBC RBC Hgb Hct MCV MCH MCHC RDW Plt Count MPV Immature Gran % (Auto) Neut % (Auto) Lymph % (Auto) [place] % (Auto) Eos % (Auto) Baso % (Auto) Lymph # (Auto) [place] # (Auto) Eos # (Auto) Baso # (Auto) Abs Immat Gran (auto) Absolute Neuts (auto) Absolute Nucleated RBC Nucleated RBC % (auto) PT INR APTT D-Dimer Sodium 139 Potassium 4.9 Chloride 103 Carbon Dioxide 24 Anion Gap 17 BUN 30 H Creatinine 1.58 H Estim Creat Clear Calc 29.6 Estimated GFR 33 POC Glucose Random Glucose 90 Lactic Acid Calcium 8.7 Magnesium Total Bilirubin Direct Bilirubin AST ALT Alkaline Phosphatase Troponin I High Sens 125.5 H B-Natriuretic Peptide Total Protein Albumin Coronavirus (PCR) NEGATIVE 03/14/20 03/14/20 07:46 11:04 WBC RBC Hgb Hct MCV MCH MCHC RDW Plt Count MPV Immature Gran % (Auto) Neut % (Auto) Lymph % (Auto) [place] % (Auto) Eos % (Auto) Baso % (Auto) Lymph # (Auto) [place] # (Auto) Eos # (Auto) Baso # (Auto) Abs Immat Gran (auto) Absolute Neuts (auto) Absolute Nucleated RBC Nucleated RBC % (auto) PT INR APTT D-Dimer Sodium Potassium Chloride Carbon Dioxide Anion Gap BUN Creatinine Estim Creat Clear Calc Estimated GFR POC Glucose 96 283 H Random Glucose Lactic Acid Calcium Magnesium Total Bilirubin Direct Bilirubin AST ALT Alkaline Phosphatase Troponin I High Sens B-Natriuretic Peptide Total Protein Albumin Coronavirus (PCR) EKG Interpretation EKG Comments: EKG shows sinus rhythm at 51/Min. No significant ST-T changes and overall unremarkable. Similar to prior. Assessment and Plan (1) Acute congestive heart failure: Qualifiers: Heart failure type: unspecified Qualified Code(s): I50.9 - Heart failure, unspecified Status: Acute (2) Elevated troponin: Status: Acute (3) Asthma with acute exacerbation: Qualifiers: Asthma persistence: persistent Asthma severity: moderate Qualified Code(s): J45.41 - Moderate persistent asthma with (acute) exacerbation Status: Acute (4) CKD (chronic kidney disease): Qualifiers: Chronic kidney disease stage: unspecified stage Qualified Code(s): N18.9 - Chronic kidney disease, unspecified Status: Acute (5) Type 2 diabetes mellitus with unspecified complications: Status: Acute (6) Essential hypertension: Status: Acute (7) Other and unspecified hyperlipidemia: Status: Acute (8) Obstructive sleep apnea on CPAP: Status: Acute Unclear if it is all diastolic heart failure versus asthma or some combination of both. Gentle diuretics. Will get an echocardiogram on Monday. At some point, she will need a stress test, possibly as an outpatient due to the numerous risk factors.
[2020-03-14] MEDS: Insulin Lispro 100 UNIT/ML 3 ML VIAL SUBCUT ×3 (13:15→21:37)
[2020-03-14] MEDS: oxyCODONE HCl Immed Release 5 MG TABLET PO (14:39)
[2020-03-14 17:11] LABS: Glucose, Whole Blood 306 mg/dL (60-115)
[2020-03-14] MEDS: Furosemide 40 MG/4 ML VIAL IVPUSH (17:36)
[2020-03-14 21:11] LABS: Glucose, Whole Blood 379 mg/dL (60-115)
[2020-03-14] MEDS: Mirtazapine 15 MG TABLET PO (21:37)
[2020-03-15] VITALS (7 sets, daily range): BP systolic 131–184; BP diastolic 60–82; PULSE 52–61; RESP 16–20; TEMP 36.3–36.8; O2SAT 96–98
--- NOTE | 2020-03-15 | ECG_ITS ---
Test Reason : HYPERKALEMIA Blood Pressure : / mmHG Vent. Rate : 060 BPM Atrial Rate : 060 BPM P-R Int : 150 ms QRS Dur : 084 ms QT Int : 442 ms P-R-T Axes : 062 017 054 degrees QTc Int : 442 ms Normal sinus rhythm Normal ECG When compared with ECG of 13-MAR-2020 22:08, No significant change was found Heart rate has increased Referred By: Salazar Short Electronically Signed By:KIMANI FISCHER MD
[2020-03-15] MEDS: 0.9 % Sodium Chloride Flush 3 ML SYRINGE IVFLUSH ×4 (00:58→21:38)
[2020-03-15] MEDS: Heparin Sodium,Porcine 5,000 UNIT/ML VIAL 5000 UNIT SUBCUT ×3 (03:18→21:38)
[2020-03-15] MEDS: Furosemide 20 MG/2 ML VIAL IVPUSH (06:38)
--- NOTE | 2020-03-15 06:45 | PC.NURSE ---
CARE ASSUMED 23:15...RESTFUL OVERNIGHT...RESPIRATIONS EASY...DENIES PAIN OR SOB WHEN AWAKE...SPLINT TO LEFT LOWER LEG/ANKLE INTACT..TOES WARM/GOOD CMS..OOB TO COMMODE WITH 2 ASSIST AND VOIDED 600ml YELLOW URINE..MONITOR SShenaJCARLOS HR 44-48 OVRNIGHT...DR BLANKENSHIP UPDATED AT R/T HR & ASYMPTOMATIC STATUS..NO NEW ORDERS
[2020-03-15 07:15] LABS: Basophils Percent Auto 0.2 % (0-2); Eosinophils Percent Auto 0.1 % (0-4); Hematocrit 34.2 % (37-47); Hemoglobin 10.9 g/dl (12.0-16.0); Lymphocytes Absolute Auto 0.6 X10*3/uL (1.2-4.9); Lymphocytes Percent Auto 6.1 % (20-40); MANUAL DIFF FLAG SCAN; Mean Corpuscular HGB Conc 31.9 g/dl (31.0-35.0); Mean Corpuscular Hemoglobin 27.5 pg (27.0-33.0); Mean Corpuscular Volume 86.4 fL (80-98); Mean Platelet Volume 10.9 fL (9.4-12.3); Monocytes Absolute Auto 0.3 X10*3/uL (0.1-1.2); Monocytes Percent Auto 3.2 % (2-11); Neutrophils Absolute Auto 9.1 X10*3/uL (2.0-8.3); Neutrophils Percent Auto 89.4 % (45-73); Platelet Count 256 X10*3/uL (160-400); Red Blood Count 3.96 X10*6/uL (4.20-5.50); Red Cell Distribution Width 14.7 % (11.0-16.0); SCAN SMEAR FLAG 1; White Blood Count 10.2 X10*3/uL (4.8-10.8)
[2020-03-15 07:49] LABS: Glucose, Whole Blood 425 mg/dL (60-115)
[2020-03-15 07:55] LABS: SLIDE REVIEW VERIFIED
[2020-03-15] MEDS: Insulin Lispro 100 UNIT/ML 3 ML VIAL SUBCUT ×4 (08:02→21:38)
[2020-03-15 08:51] LABS: Anion Gap 16 (12-20); Blood Urea Nitrogen 49 mg/dL (9-16); Calcium 8.3 mg/dL (8.4-10.2); Carbon Dioxide 27 mmol/L (22-29); Chloride 98 mmol/L (96-108); Creatinine Clr Calc Pharmacy 23.5; Estimated Glomerular Filt Rate 25; Glucose Random 449 mg/dL (60-115); Potassium 7.1 mmol/l (3.3-5.1); Sodium 134 mmol/L (135-145)
[2020-03-15] MEDS: Sodium Polystyrene Sulfon/Sorb 15 GM/60 ML ORAL.SUSP 45 GM PO (09:20)
[2020-03-15] MEDS: Insulin Regular, Human 100 UNIT/ML 3 ML VIAL 10 UNIT IVPUSH (09:23)
[2020-03-15] MEDS: Aspirin Enteric Coated 81 MG TABLET.DR PO (09:26)
[2020-03-15] MEDS: Gabapentin 600 MG TABLET PO ×3 (09:26→21:37)
[2020-03-15] MEDS: Omeprazole 20 MG CAPSULE.DR PO (09:26)
[2020-03-15] MEDS: Cholecalciferol (Vitamin D3) 25 MCG TABLET 125 MCG PO (09:26)
[2020-03-15] MEDS: Anastrozole 1 MG TABLET PO (09:26)
[2020-03-15] MEDS: Pravastatin Sodium 80 MG TABLET PO (09:26)
[2020-03-15] MEDS: Sertraline HCL 100 MG TABLET PO (09:26)
[2020-03-15] MEDS: Calcium Gluconate/NaCl,Iso-Osm 1 GM/50 ML PLAST..BAG IV (09:57)
[2020-03-15 10:12] LABS: Glucose, Whole Blood 516 mg/dL (60-115)
[2020-03-15 10:43] LABS: Potassium 4.9 mmol/l (3.3-5.1)
[2020-03-15 11:27] LABS: Glucose, Whole Blood 531 mg/dL (60-115)
[2020-03-15] MEDS: Insulin Lispro 100 UNIT/ML 3 ML VIAL 10 UNIT SUBCUT ×2 (11:30→21:37)
--- NOTE | 2020-03-15 12:26 | P.PNIM_ITS ---
Subjective Subjective Date of Service: 03/15/20 Interval History: patient seen and examined at bedside patient reported shortness of breath Cardiovascular Cardiovascular: Reports dyspnea Respiratory Respiratory: Reports dyspnea Gastrointestinal Gastrointestinal: Reports vomiting Physical Exam Vital Signs: Vital Signs: Vital Signs Temp Pulse Resp BP Pulse Ox 03/15/20 11:35 97.6 F 61 18 170/74 H 97 03/15/20 08:00 98.3 F 52 20 158/80 H 97 03/15/20 04:00 97.8 F 52 16 179/80 H 98 03/15/20 00:00 97.4 F 54 16 184/72 H 98 03/14/20 20:00 96.7 F L 54 16 129/65 98 03/14/20 15:53 97.9 F 54 18 112/48 L 95 Body Mass Index 35.4 Const: General: cooperative, healthy appearing and comfortable Orientat ion/consciousness: oriented to person, oriented to place and oriented to time HENMT: Head: Yes normal to inspection Eyes: General: appearance normal, both eyes and all related structures Neck: Neck: Yes normal visual inspection Chest: Chest palpation & inspection: normal inspection of the chest Resp: Effort & Inspection: normal respiratory effort Auscultation: diminished lung sounds Cardio: Jugular venous distension: no JVD Rate: regular rate Rhythm: regular rhythm Heart sounds: S1 normal heart sound present and S2 normal heart sound present GI: Inspection: Yes normal to inspection Skin: General skin exam: no rashes or lesions noted Neuro: General: oriented to person, oriented to place and oriented to time Extrem: Left lower extremity: full ROM (Cast applied to Left foot) Psych: Appearance: grossly normal Objective Data Current Medications Generic Name Dose Route Start Last Admin Trade Name Freq PRN Reason Stop Dose Admin Albuterol Sulfate 1.25 mg 03/14/20 04:10 Albuterol Sulfate (0.042%) 1.25 Mg/3 Ml Vial.Neb INHALE RQ4H PRN Shortness of Breath Anastrozole 1 mg 03/14/20 09:00 03/15/20 09:26 Anastrozole 1 Mg Tablet PO 1 mg DAILY SEKOU Administration Aspirin 81 mg 03/14/20 09:00 03/15/20 09:26 Aspirin Enteric Coated 81 Mg Tablet.Dr PO 81 mg DAILY SEKOU Administration Benzonatate 100 mg 03/14/20 03:09 Benzonatate 100 Mg Capsule PO TID PRN cough Fluticasone/Vilanterol 1 puff 03/14/20 09:00 Fluticasone/Vilanterol 200/25 Blst.W.Dev INHALE DAILY [facility] Gabapentin 600 mg 03/14/20 09:00 03/15/20 09:26 Gabapentin 600 Mg Tablet PO 600 mg TID SEKOU Administration Heparin Sodium (Porcine) 5,000 unit 03/14/20 04:15 03/15/20 11:31 Heparin Sodium,Porcine 5,000 Unit/Ml Vial SUBCUT 5,000 unit Q8H [facility] Administration Insulin Human Lispro 0 unit 03/14/20 07:30 03/15/20 11:31 Insulin Lispro 100 Unit/Ml 3 Ml Vial SUBCUT 10 unit QIDACHS [facility] Administration Protocol Methylprednisolone Sodium Succinate 40 mg 03/14/20 22:00 03/15/20 09:26 Methylprednisolone Sod Succ/Pf 40 Mg/Ml Vial IVPUSH 40 mg Q12H [facility] Administration Metoprolol Tartrate 25 mg 03/14/20 09:00 03/15/20 10:42 Metoprolol Tartrate 25 Mg Tablet PO Not Given TID [facility] Protocol Mirtazapine 15 mg 03/14/20 21:00 03/14/20 21:37 Mirtazapine 15 Mg Tablet PO 15 mg BEDTIME [facility] Administration Omeprazole 20 mg 03/14/20 09:00 03/15/20 09:26 Omeprazole 20 Mg Capsule.Dr PO 20 mg DAILY [facility] Administration Oxycodone HCl 5 mg 03/14/20 14:15 03/14/20 14:39 Oxycodone Hcl Immed Release 5 Mg Tablet PO 5 mg Q6H PRN Administration Pain, Moderate (Pain Scale 4-6 Pravastatin Sodium 80 mg 03/14/20 09:00 03/15/20 09:26 Pravastatin Sodium 80 Mg Tablet PO 80 mg DAILY [facility] Administration Sertraline HCl 100 mg 03/14/20 03:15 03/15/20 09:26 Sertraline Hcl 100 Mg Tablet PO 100 mg DAILY [facility] Administration Sodium Chloride 3 ml 03/14/20 08:00 03/15/20 08:04 0.9 % Sodium Chloride Flush 3 Ml Syringe IVFLUSH 3 ml QSHIFT [facility] Administration Vitamin D 125 mcg 03/14/20 09:00 03/15/20 09:26 Cholecalciferol (Vitamin D3) 25 Mcg Tablet PO 125 mcg DAILY [facility] Administration Labs CBC & Chem 7: 03/15/20 06:10 03/15/20 10:06 Microbiology Microbiology Results: Microbiology 03/13/20 23:25 Blood - Venous Blood Culture - Preliminary No growth after 24 hours. 03/13/20 23:04 Blood - Venous Blood Culture - Preliminary No growth after 24 hours. Assessment and Plan (1) Asthma with acute exacerbation: Status: Acute (2) Congestive heart failure: Status: Acute (3) Fibula fracture: Status: Acute (4) Transaminitis: Status: Acute (5) Elevated troponin: Status: Acute (6) D-dimer, elevated: Status: Acute (7) Hypertension: Status: Deleted (8) Diabetes mellitus, type 2: Status: Acute (9) Peripheral neuropathy: Status: Acute (10) CKD (chronic kidney disease): Status: Acute (11) Hyperlipidemia: Status: Deleted (12) Depression: Status: Acute (13) Breast cancer: Problem details: s/p radiation and currently on oral hormones Status: Acute Assessment and Plan: Asthma exacerbation continue steroids continue nebulizer treat continue oxygen supplementation Acute on chronic diastolic heart failure received IV Lasix hold Lasix given worsening kidney function acute on chronic kidney injury creatinine trended up from 1.5 to 1.86 likely secondary to over-diuresis will hold Lasix monitor kidney function avoid nephrotoxins hyperkalemia potassium 7.1 today morning repeat potassium was 4.9 received Kayexalate , calcium gluconate and insulin monitor potassium closely nephrology consult Elevated troponin likely due to renal dysfunction troponin from 112 to 125 seen by Cardiology ACS less likely for echocardiogram tomorrow hypertension history of CAD hold losartan for hyperkalemia continue with aspirin continue with metoprolol uncontrolled diabetes mellitus likely steroids contributing to hyperglycemia on U 500 at home blood glucose in 400s will start on Lantus continue sliding scale insulin monitor blood glucose closely creatinine level baseline 1.5 continue with statin home dose history of anxiety and depression continue with antidepressants home dose DVT prophylaxis heparin subcu
[2020-03-15] MEDS: Insulin Glargine,Hum.rec.anlog 100 UNIT/ML 10 ML VIAL 20 UNIT SUBCUT (13:21)
[2020-03-15 13:26] LABS: Glucose, Whole Blood 522 mg/dL (60-115)
--- NOTE | 2020-03-15 14:17 | PC.NURSE ---
dr stoner aware of all critical poc, patient is medicated with insulin as ordered.
--- NOTE | 2020-03-15 14:43 | PM.EVENT ---
Event Note Event Note: Pt seen and examined Full consult dictated 1. MEGA _ CHF / IV diuretic use/ ARB use / Hyperglycemia with osmotic diuresis 2. CKD - 3 baseline around 1.5 in the setting of DM/ HTN 3. Hyperkalemia - MEGA/ CKD/ ARB/ Insulin deficiency 4. ASthma/ CHF Off Diuretics now - Reevaluate in AM Medical Rx for High K - Now 4.6 Hold ARB Hold Metformin Lower Gabapentin to 300 TID Strict I and O Fluid restriction/ Low NA + K diet Renal USG in Am if creatinine not better Thx Will follow
--- NOTE | 2020-03-15 16:18 | MHC.CM.PN ---
PT LIVES AT HOME WITH HER S/O AND IS INDEPENDENT WITH SELF CARE AND MOBILITY. PT HAS A HCP ON FILE AND HER PCP IS JOYCE GRAVES CURRENT DC PLAN IS HOME WITH NO SERVICES PTS FAMILY TO TRANSPORT
[2020-03-15 16:42] LABS: Glucose, Whole Blood 457 mg/dL (60-115)
--- NOTE | 2020-03-15 19:23 | PC.NURSE ---
P: DINNER POC 457 I: PT GIVEN 10 UNITS REGULAR INSULIN PER SLIDING SCALE. COVERING MD MADE AWARE. NO NEW ORDERS PLACED. E: POC WILL BE CHECKED PRIOR TO BEDTIME.
[2020-03-15 21:14] LABS: Glucose, Whole Blood 556 mg/dL (60-115)
[2020-03-15] MEDS: oxyCODONE HCl Immed Release 5 MG TABLET PO (21:36)
[2020-03-15] MEDS: Metoprolol Tartrate 25 MG TABLET PO (21:36)
[2020-03-15] MEDS: Mirtazapine 15 MG TABLET PO (21:37)
--- NOTE | 2020-03-15 22:09 | PC.NURSE ---
POC AT HS 556. MD NOTIFIED. ADDITIONAL 10 UNITS LISPRO GIVEN PER ORDER. WILL CONTINUE TO MONITOR.
[2020-03-15 22:53] LABS: Creatinine Urine 32.28 mg/dL
[2020-03-15 22:56] LABS: Total Protein Urine Random 30 mg/dL (<12)
[2020-03-16] VITALS (12 sets, daily range): BP systolic 122–176; BP diastolic 49–76; PULSE 48–60; RESP 16–20; TEMP 36.5–36.9; O2SAT 95–98; BMI 35.4
[2020-03-16] MEDS: Heparin Sodium,Porcine 5,000 UNIT/ML VIAL 5000 UNIT SUBCUT ×3 (05:08→22:08)
[2020-03-16 07:30] LABS: Glucose, Whole Blood 340 mg/dL (60-115)
[2020-03-16] MEDS: Pravastatin Sodium 80 MG TABLET PO (08:57)
[2020-03-16] MEDS: Sertraline HCL 100 MG TABLET PO (08:57)
[2020-03-16] MEDS: Insulin Lispro 100 UNIT/ML 3 ML VIAL SUBCUT ×4 (08:57→22:07)
[2020-03-16] MEDS: Cholecalciferol (Vitamin D3) 25 MCG TABLET 125 MCG PO (08:57)
[2020-03-16] MEDS: Anastrozole 1 MG TABLET PO (08:57)
[2020-03-16] MEDS: Insulin Glargine,Hum.rec.anlog 100 UNIT/ML 10 ML VIAL 30 UNIT SUBCUT (08:57)
[2020-03-16] MEDS: Omeprazole 20 MG CAPSULE.DR PO (08:58)
[2020-03-16] MEDS: 0.9 % Sodium Chloride Flush 3 ML SYRINGE IVFLUSH ×3 (08:59→22:11)
[2020-03-16] MEDS: Aspirin Enteric Coated 81 MG TABLET.DR PO (09:02)
[2020-03-16] MEDS: Gabapentin 600 MG TABLET PO ×3 (09:02→22:06)
--- NOTE | 2020-03-16 11:00 | CA_ITS ---
Transthoracic Echocardiogram Patient (Last, First, Middle): Angela Cullen, Gender: Female Date of : 1955 Age: 64 Procedure Date: 03/16/2020 Procedure Type: Transthoracic Echocardiogram Location: [facility] [place] Height: 144. cm Weight: 74.39 kg BSA: 1.65 m2 Heart Rate: bpm BP: 122 / 54 mmHg Beading Installer: Ivonne MD: Salazar Short MD Symptoms: chf exacerbation assess LVF Study Quality: Good ECG Rhythm: Sinus Conclusions: - The left ventricular systolic function is normal. The visually estimated ejection fraction is between 60-65%. - Evidence suggests grade II (moderate) diastolic dysfunction. - The basal inferior segment is hypokinetic. - There is mild calcification of the aortic valve. - There is mild mitral valve regurgitation. Findings Left Ventricle Normal left ventricular cavity size. There is mildly increased left ventricular wall thickness. The left ventricular systolic function is normal. The visually estimated ejection fraction is between 60-65%. There is no evidence of regional wall motion abnormalities. E/E prime ratio is >15, consistent with elevated filling pressures. Evidence suggests grade II (moderate) diastolic dysfunction. Wall Motion Rest Echo Findings The basal inferior segment is hypokinetic. Atria Both atria are normal in size. Aortic Valve There is a normal trileaflet aortic valve. There is mild calcification of the aortic valve. There is no aortic valve stenosis. There is no aortic valve regurgitation. Mitral Valve The mitral valve appears normal. There is mild mitral valve regurgitation. There is no mitral valve stenosis. Pulmonic Valve The pulmonic valve was not well visualized. Tricuspid Valve Normal tricuspid valve structure. There is trace tricuspid valve regurgitation. The pulmonary artery systolic pressure is normal. Great Vessels The aortic annulus, sinuses of valsalva, asc aorta, and aortic arch are normal in size. Venous The inferior vena cava is normal in size and collapses greater than 50% with inspiration. Pericardium/Pleural There is no evidence of pericardial effusion. Prior Study Comparison No prior study available for comparison. Measurements 2D Linear Measurements RVIDd: 2.54 RVIDd Index: 1.54 IVSd: 1.09 0.6-0.9/0.6-1.0 cm LVIDd: 4.85 3.9-5.3/4.2-5.9 cm LVIDd Index: 2.94 2.4-3.2/2.2-3.1 cm/m2 LVIDs: 3.54 2.0-3.6 cm LVPWd: 1.15 0.7-1.1 cm Ao Root: 2.60 2.1-3.5 cm LA Diam: 4.10 2.7-3.8/3.0-4.0 cm LAIDs Index: 2.48 1.5-2.3 cm/m2 LV Mass: 252.01 67-162/88-224 g LV Mass Index: 152.73 43-95/49-115 g/m2 LVOT Diam: 2.00 3.0+(-)1.3 cm 2D Systolic Function EF 4C: 75.50 >55% EF 2C: 69.10 >55% EF BiP: 71.90 >55% Mitral Valve MV Pk E: 1.17 MV PK A: 0.46 MV Decel Time: 290.00 E/A: 2.60 E'Lateral: 9.19 E'Medial: 6.58 E/E' Med: 17.80 E/E' Lat: 12.70 Aortic Valve AoV Pk Mert: 1.47 AoV Mn Mert: 0.94 AoV VTI: 0.38 AoV Pk Grad: 9.00 Aov Mn Grad: 4.00 ROBERTO Cont.VTI: 1.84 LVOT LVOT Pk Mert: 0.81 LVOT Mn Mert: 0.54 LVOT VTI: 0.22 LVOT Pk Grad: 3.00 LVOT Mn Grad: 1.00 LVOT Diam: 2.00 LVOT Area: 3.14 Diastolic Function MV Pk E: 1.17 MV Pk A: 0.46 E/A: 2.60 E'Medial: 6.58 E/E' Med: 17.80 E' Laterial: 9.19 E/E' Lat: 12.70 Tricuspid Valve TR Pk Mert: 2.63 TR Pk Grad: 28.00 RA Press: 3.00 RVSP: 31.00 Great Vessels Aorta Ao Root-2D: 2.60 2.0-3.7 cm Ao Asc: 2.90 2.1-3.4 cm Ao Arch: 2.50 Updated in Other Vendor System with Status of Final Víctor Kim MD electronically signed on 03/16/2020 11:44:09 AM with status of Final
[2020-03-16 11:04] LABS: Glucose, Whole Blood 318 mg/dL (60-115)
--- NOTE | 2020-03-16 11:20 | PM.PNNEP ---
Subjective Subjective Interval history: patient seen and examined at bedside Feeling better Responded to diuretcs Physical Exam Vital Signs: Vital Signs: Vital Signs Temp Pulse Resp BP Pulse Ox 03/16/20 11:14 98.7 F 88 18 139/63 95 03/16/20 08:59 56 03/16/20 07:25 97.8 F 49 L 16 132/49 L 98 03/16/20 04:00 97.8 F 48 L 18 122/54 L 98 03/16/20 00:00 97.7 F 53 20 127/62 98 03/15/20 21:36 60 180/82 H 03/15/20 19:10 97.4 F 60 16 180/82 H 96 03/15/20 15:57 97.7 F 60 18 131/60 97 03/15/20 11:35 97.6 F 61 18 170/74 H 97 Body Mass Index 35.4 Const: General: cooperative Orientation/consciousness: patient oriented x3 HENMT: Head: Yes normal to inspection Neck: Neck: Yes supple Chest: Chest palpation & inspection: normal inspection of the chest Resp: Auscultation: diminished lung sounds Cardio: Palpation: no palpable S3 Heart sounds: no rubs GI: Inspection: Yes normal to inspection Palpation (GI): Soft to palpation Skin: General skin exam: no rashes or lesions noted Neuro: General: patient oriented x3 Motor exam (neuro): No Asterixis during motor activity present Assessment & Plan Assessment and plan (1) CKD (chronic kidney disease): Status: Acute Assessment and Plan: Most likely due to diabetic nephropathy Cr is trending up Recheck Cr today Hyperkalemia- due to CKD and possible translocation due to hyperglycemia Recheck K Optimize blood glucose (2) Acute congestive heart failure: Status: Acute
--- NOTE | 2020-03-16 11:21 | P.PNCA_ITS ---
Subjective Subjective Interval history: Patient seen and examined. She states that she feels okay. Less short of breath than before. Review of Systems Review of Systems Cardiac-positive for shortness of breath but improved from prior. No angina. No palpitations, dizzy spells, or syncopal episodes. Remainder of the 10 system review is negative. Physical Exam Vital Signs: Vital Signs Temp Pulse Resp BP Pulse Ox 03/16/20 11:14 98.7 F 88 18 139/63 95 03/16/20 08:59 56 03/16/20 07:25 97.8 F 49 L 16 132/49 L 98 03/16/20 04:00 97.8 F 48 L 18 122/54 L 98 03/16/20 00:00 97.7 F 53 20 127/62 98 03/15/20 21:36 60 180/82 H 03/15/20 19:10 97.4 F 60 16 180/82 H 96 03/15/20 15:57 97.7 F 60 18 131/60 97 03/15/20 11:35 97.6 F 61 18 170/74 H 97 Body Mass Index 35.4 Comfortable, no distress No pallor, icterus or cyanosis HEENT -unremarkable JVD- normal Cardiac- normal heart sounds, no murmurs, gallops or rubs, normal PMI Respiratory-normal breath sounds bilaterally, no crackles, no wheeze Abdomen- soft, nontender Neuro- alert and oriented Lower extremities- trace edema, warm well perfused Results Labs and Meds Result diagrams: 03/15/20 06:10 03/15/20 10:06 Progress Note: A&P Assessment and plan (1) Acute congestive heart failure: Status: Acute (2) Elevated troponin: Status: Acute (3) Asthma with acute exacerbation: Status: Acute (4) CKD (chronic kidney disease): Status: Acute (5) Type 2 diabetes mellitus with unspecified complications: Status: Acute (6) Essential hypertension: Status: Acute (7) Other and unspecified hyperlipidemia: Status: Acute (8) Obstructive sleep apnea on CPAP: Status: Acute Assessment and Plan: Unclear if it is all diastolic heart failure versus asthma or some combination of both. Gentle diuretics as tolerated by renal function. Will review her echocardiogram. At some point, she will need a stress test, possibly as an outpatient due to the numerous risk factors. Fall Risk Details Current Medications: Current Medications Generic Name Dose Route Start Last Admin Trade Name Freq PRN Reason Stop Dose Admin Albuterol Sulfate 1.25 mg 03/14/20 04:10 Albuterol Sulfate (0.042%) 1.25 Mg/3 Ml Vial.Neb INHALE RQ4H PRN Shortness of Breath Anastrozole 1 mg 03/14/20 09:00 03/16/20 08:57 Anastrozole 1 Mg Tablet PO 1 mg DAILY SEKOU Administration Aspirin 81 mg 03/14/20 09:00 03/16/20 09:02 Aspirin Enteric Coated 81 Mg Tablet. PO 81 mg DAILY SEKOU Administration Benzonatate 100 mg 03/14/20 03:09 Benzonatate 100 Mg Capsule PO TID PRN cough Fluticasone/Vilanterol 1 puff 03/14/20 09:00 Fluticasone/Vilanterol 200/25 Blst.W.Dev INHALE DAILY [facility] Gabapentin 600 mg 03/14/20 09:00 03/16/20 09:02 Gabapentin 600 Mg Tablet PO 600 mg TID SEKOU Administration Heparin Sodium (Porcine) 5,000 unit 03/14/20 04:15 03/16/20 05:08 Heparin Sodium,Porcine 5,000 Unit/Ml Vial SUBCUT 5,000 unit Q8H [facility] Administration Insulin Glargine 30 unit 03/16/20 09:00 03/16/20 08:57 Insulin Glargine,Hum.Rec.Anlog 100 Unit/Ml 10 Ml Vial SUBCUT 30 unit DAILY [facility] Administration Insulin Human Lispro 0 unit 03/14/20 07:30 03/16/20 08:57 Insulin Lispro 100 Unit/Ml 3 Ml Vial SUBCUT 10 unit QIDACHS [facility] Administration Protocol Metoprolol Tartrate 25 mg 03/14/20 09:00 03/16/20 08:59 Metoprolol Tartrate 25 Mg Tablet PO Not Given TID [facility] Protocol Mirtazapine 15 mg 03/14/20 21:00 03/15/20 21:37 Mirtazapine 15 Mg Tablet PO 15 mg BEDTIME [facility] Administration Omeprazole 20 mg 03/14/20 09:00 03/16/20 08:58 Omeprazole 20 Mg Capsule. PO 20 mg DAILY [facility] Administration Oxycodone HCl 5 mg 03/14/20 14:15 03/15/20 21:36 Oxycodone Hcl Immed Release 5 Mg Tablet PO 5 mg Q6H PRN Administration Pain, Moderate (Pain Scale 4-6 Pravastatin Sodium 80 mg 03/14/20 09:00 03/16/20 08:57 Pravastatin Sodium 80 Mg Tablet PO 80 mg DAILY [facility] Administration Sertraline HCl 100 mg 03/14/20 03:15 03/16/20 08:57 Sertraline Hcl 100 Mg Tablet PO 100 mg DAILY [facility] Administration Sodium Chloride 3 ml 03/14/20 08:00 03/16/20 08:59 0.9 % Sodium Chloride Flush 3 Ml Syringe IVFLUSH 3 ml QSHIFT [facility] Administration Vitamin D 125 mcg 03/14/20 09:00 03/16/20 08:57 Cholecalciferol (Vitamin D3) 25 Mcg Tablet PO 125 mcg DAILY [facility] Administration Time Spent With Patient Time: Total time spent is greater than 50% in coordination of care (as documented) at patient's floor/unit and/or counseling patient: Time with patient: 15 - 24 minutes
--- NOTE | 2020-03-16 13:14 | MHC.CM.PN ---
Home is the goal for dc; PT eval pending. CM will continue to follow.
--- NOTE | 2020-03-16 14:20 | P.DS_ITS ---
DS: Providers Provider Date of admission: 03/14/20 04:10 Primary care physician: Angelica Guerra MD Consults: 03/14/20 04:11 Consult to Physician Routine Consulting Provider: [facility] [place] Cardiovascular Services Reason for consultation: CHF exacerbation Has provider been notified: No 03/14/20 06:44 Consult Respiratory Therapy Routine Reason for consultation: ROLAN needs CPAP 03/15/20 09:07 Consult to Nephrology Routine Consulting Provider: Wilbur Beckman Reason for consultation: hyperkalemia janene DS: Diagnosis Discharge Diagnosis (1) CKD (chronic kidney disease): Status: Acute (2) Acute congestive heart failure: Status: Acute (3) Type 2 diabetes mellitus with unspecified complications: Status: Acute (4) Essential hypertension: Status: Acute (5) Other and unspecified hyperlipidemia: Status: Acute (6) Obstructive sleep apnea on CPAP: Status: Acute DS: Summary Time Spent with Patient Time attestation: Total time spent providing and/or coordinating discharge services: Physical Exam Vital Signs: Vital Signs: Vital Signs Temp Pulse Resp BP Pulse Ox 03/16/20 11:14 98 F 56 18 136/59 L 95 03/16/20 08:59 56 03/16/20 07:25 97.8 F 49 L 16 132/49 L 98 03/16/20 04:00 97.8 F 48 L 18 122/54 L 98 03/16/20 00:00 97.7 F 53 20 127/62 98 03/15/20 21:36 60 180/82 H 03/15/20 19:10 97.4 F 60 16 180/82 H 96 03/15/20 15:57 97.7 F 60 18 131/60 97 Body Mass Index 35.4 DS: Data Data Completed and Pending Labs on day of discharge: Labs from last 24 hours 03/16/20 03/16/20 03/15/20 11:01 07:27 22:10 POC Glucose 318 H 340 H U Random Total Protein 30 H Ur Random Sodium Urine Creatinine 03/15/20 03/15/20 03/15/20 22:10 21:08 16:19 POC Glucose 556 H* 457 H* U Random Total Protein Ur Random Sodium 39.0 Urine Creatinine 32.28 Preliminary micro results at discharge 03/13/20 23:25 Blood Culture - Preliminary Blood - Venous No growth after 48 hours. 03/13/20 23:04 Blood Culture - Preliminary Blood - Venous No growth after 48 hours. Discharge Plan Discharge Anticipated Discharge Date/Time: 03/16/20 10:57 Patient Disposition: Home Health Service Referrals: Angelica Guerra MD [Primary Care Provider] - Discharge Medications: New prednisone 20 mg tablet 20 mg PO DAILY Qty: 3 RF: 0 Continued furosemide 40 mg tablet 1 tab PO DAILY RF: 0 metformin 500 mg tablet 1 tab PO DAILY RF: 0 anastrozole 1 mg tablet 1 tab PO DAILY RF: 0 gabapentin 600 mg tablet 1 tab PO TID RF: 0 sertraline 100 mg tablet 1 tab PO QAM RF: 0 cyanocobalamin (vitamin B-12) 1,000 mcg tablet 1 tab PO DAILY RF: 0 aspirin 81 mg tablet,delayed release (DR/EC) 1 tab PO DAILY RF: 0 oxycodone-acetaminophen 5-325 mg tablet 1 tab PO QID PRN (Reason: pain) RF: 0 pravastatin 80 mg tablet 1 tab PO DAILY RF: 0 benzonatate 100 mg capsule 1 cap PO TID PRN (Reason: cough) RF: 0 zafirlukast 20 mg tablet 1 tab PO BID RF: 0 omeprazole 20 mg capsule,delayed release(DR/EC) 1 cap PO DAILY RF: 0 mirtazapine 15 mg tablet 1 tab PO BEDTIME RF: 0 albuterol sulfate [Ventolin HFA] 90 mcg/actuation HFA aerosol inhaler 2 puff PO Q6H PRN (Reason: wheezing) RF: 0 hydroxyzine HCl 10 mg tablet 1 tab PO DAILY PRN (Reason: itch) RF: 0 clotrimazole 1 % cream topical BID RF: 0 cholecalciferol (vitamin D3) 125 mcg (5,000 unit) capsule 1 cap PO DAILY RF: 0 metoprolol tartrate 25 mg tablet 1 tab PO TID RF: 0 Fish Oil 340-1,000 mg capsule 1 cap PO BID RF: 0 budesonide-formoterol [Symbicort] 160-4.5 mcg/actuation HFA aerosol inhaler 2 puff PO Q12H RF: 0 diclofenac sodium 1 % gel topical BID RF: 0 Tradjenta 5 mg tablet 1 tab PO DAILY RF: 0 Breo Ellipta 100-25 mcg/dose blister with device 1 puff PO DAILY RF: 0 Humulin R U-500 (Conc) Kwikpen 500 unit/mL (3 mL) insulin pen subcut RF: 0 Discontinued losartan 100 mg tablet 1 tab PO DAILY RF: 0 Discharge Orders: Discharge Order (Routine); Ordered 03/16/20 Ordered By: Salazar Short Diet: advance to your usual diet and diabetic diet Activity on Discharge: As tolerated Other Ambulatory Orders: NM cardiolite stress test (Routine) Timeframe: 2 Weeks Facility: [facility] - Location: Nuclear Medicine Ordered By: Víctor Kim Visit Report Forms: Patient Portal Discharge page Care Plan Goals: prevent rehospitalization Health Concerns: no new health concerns at this time except patient's chronic medical conditions Plan of Treatment: prednisone Lasix
--- NOTE | 2020-03-16 14:56 | MHC.CM.PN ---
Patient has been medically cleared for dc to home today with [facility]., Per Brit at [facility], [facility] will provide RN services r/t med management. Last IMM addressed 03/14/20.
--- NOTE | 2020-03-16 15:34 | P.PNIM_ITS ---
Subjective Subjective Date of Service: 03/16/20 Interval History: patient seen and examined at bedside patient reported shortness of breath improving Constitutional Constitutional: Reports weakness Cardiovascular Cardiovascular: Reports dyspnea Respiratory Respiratory: Reports dyspnea Gastrointestinal Gastrointestinal: Denies vomiting Neurologic Neurologic: Reports weakness Physical Exam Vital Signs: Vital Signs: Vital Signs Temp Pulse Resp BP Pulse Ox 03/16/20 15:26 56 03/16/20 15:17 56 176/76 H 03/16/20 11:14 98 F 56 18 136/59 L 95 03/16/20 08:59 56 03/16/20 07:25 97.8 F 49 L 16 132/49 L 98 03/16/20 04:00 97.8 F 48 L 18 122/54 L 98 03/16/20 00:00 97.7 F 53 20 127/62 98 03/15/20 21:36 60 180/82 H 03/15/20 19:10 97.4 F 60 16 180/82 H 96 03/15/20 15:57 97.7 F 60 18 131/60 97 Body Mass Index 35.4 Const: General: cooperative, healthy appearing and comfortable Orientation/consciousness: oriented to person, oriented to place and oriented to time HENMT: Head: Yes normal to inspection Eyes: General: appearance normal, both eyes and all related structures Neck: Neck: Yes normal visual inspection Chest: Chest palpation & inspection: normal inspection of the chest Resp: Effort & Inspection: normal respiratory effort Auscultation: diminished lung sounds Cardio: Jugular venous distension: no JVD Rate: regular rate Rhythm: regular rhythm Heart sounds: S1 normal heart sound present and S2 normal heart sound present GI: Inspection: Yes normal to inspection Skin: General skin exam: no rashes or lesions noted Neuro: General: oriented to person, oriented to place and oriented to time Extrem: Left lower extremity: full ROM (Cast applied to Left foot) Psych: Appearance: grossly normal Objective Data Current Medications Generic Name Dose Route Start Last Admin Trade Name Freq PRN Reason Stop Dose Admin Albuterol Sulfate 1.25 mg 03/14/20 04:10 Albuterol Sulfate (0.042%) 1.25 Mg/3 Ml Vial.Neb INHALE RQ4H PRN Shortness of Breath Amlodipine Besylate 5 mg 03/16/20 15:30 Amlodipine Besylate 5 Mg Tablet PO DAILY SEKOU Protocol Anastrozole 1 mg 03/14/20 09:00 03/16/20 08:57 Anastrozole 1 Mg Tablet PO 1 mg DAILY SEKOU Administration Aspirin 81 mg 03/14/20 09:00 03/16/20 09:02 Aspirin Enteric Coated 81 Mg Tablet. PO 81 mg DAILY SEKOU Administration Benzonatate 100 mg 03/14/20 03:09 Benzonatate 100 Mg Capsule PO TID PRN cough Fluticasone/Vilanterol 1 puff 03/14/20 09:00 Fluticasone/Vilanterol 200/25 Blst.W.Dev INHALE DAILY COUNTS INCLUDE 234 BEDS AT THE [facility] Gabapentin 600 mg 03/14/20 09:00 03/16/20 15:24 Gabapentin 600 Mg Tablet PO 600 mg TID SEKOU Administration Heparin Sodium (Porcine) 5,000 unit 03/14/20 04:15 03/16/20 11:38 Heparin Sodium,Porcine 5,000 Unit/Ml Vial SUBCUT 5,000 unit Q8H SEKOU Administration Insulin Glargine 30 unit 03/16/20 09:00 03/16/20 08:57 Insulin Glargine,Hum.Rec.Anlog 100 Unit/Ml 10 Ml Vial SUBCUT 30 unit DAILY SEKOU Administration Insulin Human Lispro 0 unit 03/14/20 07:30 03/16/20 11:38 Insulin Lispro 100 Unit/Ml 3 Ml Vial SUBCUT 10 unit QIDACHS COUNTS INCLUDE 234 BEDS AT THE [facility] Administration Protocol Metoprolol Tartrate 25 mg 03/14/20 09:00 03/16/20 15:26 Metoprolol Tartrate 25 Mg Tablet PO Not Given TID COUNTS INCLUDE 234 BEDS AT THE [facility] Protocol Mirtazapine 15 mg 03/14/20 21:00 03/15/20 21:37 Mirtazapine 15 Mg Tablet PO 15 mg BEDTIME SEKOU Administration Omeprazole 20 mg 03/14/20 09:00 03/16/20 08:58 Omeprazole 20 Mg Capsule. PO 20 mg DAILY SEKOU Administration Oxycodone HCl 5 mg 03/14/20 14:15 03/15/20 21:36 Oxycodone Hcl Immed Release 5 Mg Tablet PO 5 mg Q6H PRN Administration Pain, Moderate (Pain Scale 4-6 Pravastatin Sodium 80 mg 03/14/20 09:00 03/16/20 08:57 Pravastatin Sodium 80 Mg Tablet PO 80 mg DAILY SEKOU Administration Sertraline HCl 100 mg 03/14/20 03:15 03/16/20 08:57 Sertraline Hcl 100 Mg Tablet PO 100 mg DAILY SEKOU Administration Sodium Chloride 3 ml 03/14/20 08:00 03/16/20 08:59 0.9 % Sodium Chloride Flush 3 Ml Syringe IVFLUSH 3 ml QSHIFT SEKOU Administration Vitamin D 125 mcg 03/14/20 09:00 03/16/20 08:57 Cholecalciferol (Vitamin D3) 25 Mcg Tablet PO 125 mcg DAILY SEKOU Administration Labs CBC & Chem 7: 03/15/20 06:10 03/16/20 16:25 Microbiology Microbiology Results: Microbiology 03/13/20 23:25 Blood - Venous Blood Culture - Preliminary No growth after 48 hours. 03/13/20 23:04 Blood - Venous Blood Culture - Preliminary No growth after 48 hours. Assessment and Plan (1) CKD (chronic kidney disease): Status: Acute (2) Acute congestive heart failure: Status: Acute (3) Type 2 diabetes mellitus with unspecified complications: Status: Acute (4) Essential hypertension: Status: Acute (5) Other and unspecified hyperlipidemia: Status: Acute (6) Obstructive sleep apnea on CPAP: Status: Acute Assessment and Plan: Asthma exacerbation shortness of breath improved continue nebulizer treat continue oxygen supplementation Acute on chronic diastolic heart failure improving received IV Lasix hold Lasix given worsening kidney function acute on chronic kidney injury likely secondary to over-diuresis creatinine trending down will hold Lasix monitor kidney function avoid nephrotoxins hyperkalemia resolved monitor potassium Elevated troponin likely due to renal dysfunction troponin from 112 to 125 seen by Cardiology echocardiogram shows EF 60-65% , and some hypokinesis cardiology recommended stress test as outpatient hypertension hold losartan for hyperkalemia blood pressure on higher side will start amlodipine monitor blood pressure h/o CAD continue with aspirin Lopressor dose reduced from t.i.d. to b.i.d. given heart rate on lower side uncontrolled diabetes mellitus likely steroids contributing to hyperglycemia on U 500 at home blood glucose improving continue Lantus continue sliding scale insulin monitor blood glucose closely hyperlipidemia continue with statin home dose history of anxiety and depression continue with antidepressants home dose DVT prophylaxis heparin subcu
[2020-03-16] MEDS: amLODIPine Besylate 5 MG TABLET PO (15:44)
[2020-03-16 16:25] LABS: Glucose, Whole Blood 315 mg/dL (60-115)
[2020-03-16 17:47] LABS: Anion Gap 16 (12-20); Blood Urea Nitrogen 54 mg/dL (9-16); Calcium 9.2 mg/dL (8.4-10.2); Carbon Dioxide 30 mmol/L (22-29); Chloride 98 mmol/L (96-108); Estimated Glomerular Filt Rate 33; Glucose Random 317 mg/dL (60-115); Potassium 4.1 mmol/l (3.3-5.1); Sodium 140 mmol/L (135-145)
[2020-03-16 21:19] LABS: Glucose, Whole Blood 244 mg/dL (60-115)
[2020-03-16] MEDS: Mirtazapine 15 MG TABLET PO (22:06)
[2020-03-17] VITALS (8 sets, daily range): BP systolic 137–186; BP diastolic 52–74; PULSE 53–61; RESP 18; TEMP 36.4–37; O2SAT 93–96
[2020-03-17] MEDS: Heparin Sodium,Porcine 5,000 UNIT/ML VIAL 5000 UNIT SUBCUT ×2 (04:36→12:10)
[2020-03-17 07:28] LABS: Glucose, Whole Blood 249 mg/dL (60-115)
[2020-03-17] MEDS: Insulin Lispro 100 UNIT/ML 3 ML VIAL SUBCUT ×2 (07:30→12:11)
[2020-03-17] MEDS: Anastrozole 1 MG TABLET PO (09:50)
[2020-03-17] MEDS: Insulin Glargine,Hum.rec.anlog 100 UNIT/ML 10 ML VIAL 30 UNIT SUBCUT (09:50)
[2020-03-17] MEDS: Omeprazole 20 MG CAPSULE.DR PO (09:51)
[2020-03-17] MEDS: Pravastatin Sodium 80 MG TABLET PO (09:51)
[2020-03-17] MEDS: Sertraline HCL 100 MG TABLET PO (09:51)
[2020-03-17] MEDS: Cholecalciferol (Vitamin D3) 25 MCG TABLET 125 MCG PO (09:51)
[2020-03-17] MEDS: Metoprolol Tartrate 25 MG TABLET PO (09:51)
[2020-03-17] MEDS: Aspirin Enteric Coated 81 MG TABLET.DR PO (09:52)
[2020-03-17] MEDS: Gabapentin 600 MG TABLET PO ×2 (09:52→14:35)
[2020-03-17] MEDS: amLODIPine Besylate 5 MG TABLET PO ×2 (09:52→14:35)
[2020-03-17] MEDS: 0.9 % Sodium Chloride Flush 3 ML SYRINGE IVFLUSH (09:53)
--- NOTE | 2020-03-17 10:17 | CONS_ITS ---
DATE OF SERVICE: 03/15/2020 REASON FOR CONSULTATION: Consult requested by the medical team to evaluate and help in management of patient with hyperkalemia and acute kidney injury. HISTORY OF PRESENT ILLNESS: The patient is a 64-year-old female, who is a poor historian, past medical history of asthma and history of chronic kidney disease, stage 3, who presented to the hospital with shortness of breath. This has been going on for about 10 days. Her breathing was difficult with exertion and at rest. She was seen by her primary care physician and started on prednisone 5 days ago, but she had noted the symptoms did not improve. She apparently tripped and fell on the floor, hitting her left foot when she was trying to come to the ER. In the ER, the patient had a white count of 13.5. She was hemodynamically stable. Creatinine was 1.5, close to baseline. BNP was 1028. COVID was negative. She was treated with albuterol inhaler, IV Lasix, and Solu-Medrol. D-dimer was found to be elevated as there was a question of PE. Doppler of lower extremity was negative. Left foot x-ray showed nondisplaced oblique fracture of distal fibula. She was treated also with IV Lasix. Renal consult has been requested as the creatinine level is increased to 1.9 and potassium was also high, but repeat potassiums are acceptable. PAST MEDICAL HISTORY: History of type 2 diabetes mellitus; hyperlipidemia; hypertension; depression; insomnia; obstructive sleep apnea, on CPAP; chronic kidney disease, stage 3, at baseline, baseline creatinine around 1.5; moderate persistent asthma; GERD; and sciatica. PAST SURGICAL HISTORY: Includes right shoulder surgery, section x3, cholecystectomy, and total abdominal hysterectomy. PERSONAL AND SOCIAL HISTORY: The patient does not smoke, drink, or use drugs. REVIEW OF SYSTEMS: As noted above. Other system reviewed negative. ALLERGIES: TRAMADOL, LATEX, AND IV PLASTIC INSERTED PRODUCTS. HOME MEDICATIONS: Include albuterol, anastrozole, aspirin, benzonatate, Symbicort, vitamin D3, clotrimazole cream, vitamin B12, diclofenac sodium, Breo Ellipta, furosemide, gabapentin, hydroxyzine, insulin, Tradjenta, losartan, metformin, metoprolol tartrate, mirtazapine, omega-3, omeprazole, oxycodone/acetaminophen, pravastatin, Zoloft, and Singulair. PHYSICAL EXAMINATION: GENERAL: The patient is resting in the bed, obese, awake, alert. No significant distress. VITAL SIGNS: Blood pressure was 170/74, pulse 61, and afebrile. HEENT: Pupils equal, round, and reactive bilaterally to light. NECK: No jugular venous distention is noted. Neck was short and supple. No thyromegaly is noted. CARDIOVASCULAR SYSTEM: S1, S2 without rub. RESPIRATORY SYSTEM: Air entry decreased in the bases with occasional rhonchi. ABDOMEN: Obese and soft. Bowel sounds normal. EXTREMITIES: Left lower extremity has a cast. There is trace edema. There is no peripheral cyanosis or clubbing. LABORATORY DATA: Labs done today. WBC is 10.2, hemoglobin 10.9, hematocrit 34.2, platelets 256. Sodium 134; potassium 7.1, repeat again was 4.9; chloride 98; CO2 of 27; BUN 49; creatinine 1.99; glucose 449. IMPRESSION: 1. Elderly female with acute kidney injury. Acute kidney injury in this patient likely secondary to renal hypoperfusion due to multifactorial reasons including diuretic use and congestive heart failure. She was also on losartan, which could worsen the renal insufficiency. There is also likely osmotic diuresis in the setting of severe hyperglycemia with prerenal state. We need to rule out obstruction if her renal function continues to worsen. 2. Chronic kidney disease, stage 3, at baseline in setting of longstanding diabetes and hypertension. 3. Hyperkalemia due to multifactorial reasons including acute kidney injury, chronic kidney disease, use of losartan, and possible severe hyperglycemia in the setting of insulin deficiency. 4. Bronchial asthma. 5. Uncontrolled diabetes. RECOMMENDATIONS: At this juncture, I would recommend checking spot urine for creatinine and protein. I also agree with holding off on metformin and losartan. Hyperkalemia has improved with medical management. We need to keep blood sugar less than 200 and preferably less than 150. I agree with holding off on Lasix for now and re-evaluating in a.m. We should avoid using NSAIDs/LOPEZ-2 inhibitors. The patient is on high-dose gabapentin, and I recommend decreasing the dose to 300 mg 3 times a day. As mentioned before, renal function continues to worsen, I recommend doing a renal ultrasound on this patient. Thank you for allowing me to participate in medical management of patient. MD JUAN Gross/EMILIANO / [phone]
--- NOTE | 2020-03-17 10:55 | PM.PNNEP ---
Subjective Subjective Interval history: Event noted Feeling better Physical Exam Vital Signs: Vital Signs: Vital Signs Temp Pulse Resp BP Pulse Ox 03/17/20 09:52 61 157/70 H 03/17/20 09:51 61 157/70 H 03/17/20 07:15 98.6 F 61 18 157/70 H 93 03/17/20 03:08 98.0 F 56 18 156/69 H 95 03/17/20 00:00 97.5 F 53 18 137/61 93 03/16/20 22:12 54 145/67 H 03/16/20 19:56 98.4 F 54 20 145/67 H 95 03/16/20 16:13 98.3 F 60 16 176/76 H 98 03/16/20 15:44 56 176/76 H 03/16/20 15:39 98.3 F 03/16/20 15:26 56 03/16/20 15:17 56 176/76 H 03/16/20 11:14 98 F 56 18 136/59 L 95 Body Mass Index 35.4 Const: General: cooperative Orientation/consciousness: patient oriented x3 HENMT: Head: Yes normal to inspection Neck: Neck: Yes supple Chest: Chest palpation & inspection: normal inspection of the chest Resp: Auscultation: diminished lung sounds Cardio: Palpation: no palpable S3 Heart sounds: no rubs GI: Inspection: Yes normal to inspection Palpation (GI): Soft to palpation Skin: General skin exam: no rashes or lesions noted Neuro: General: patient oriented x3 Motor exam (neuro): No Asterixis during motor activity present Assessment & Plan Assessment and plan (1) CKD (chronic kidney disease): Status: Acute Assessment and Plan: Most likely due to diabetic nephropathy Cr back to baseline Hyperkalemia- due to CKD and possible translocation due to hyperglycemia REsolved Optimize blood glucose h/o CHF Can resume Lasix 40 mg QD
[2020-03-17 11:20] LABS: Glucose, Whole Blood 296 mg/dL (60-115)
--- NOTE | 2020-03-17 13:58 | PM.DS ---
DS: Providers Provider Date of admission: 03/14/20 04:10 Primary care physician: Angelica Guerra MD Consults: 03/14/20 04:11 Consult to Physician Routine Consulting Provider: [facility] Cardiovascular Services Reason for consultation: CHF exacerbation Has provider been notified: No 03/14/20 06:44 Consult Respiratory Therapy Routine Reason for consultation: ROLAN needs CPAP 03/15/20 09:07 Consult to Nephrology Routine Consulting Provider: Wilbur Beckman Reason for consultation: hyperkalemia janene DS: Diagnosis Discharge Diagnosis (1) CKD (chronic kidney disease): Status: Acute DS: Summary Hospital Course Hospital Course: 64 y/o female with extensive PMHX including Asthma who presented from home due to worsening SOB. Per history provided by the patient, her symptoms started approximately 10 days, which was precipitated more with exertion. Was seen by her PCP and started on prednisone 5 days ago but her symptoms did not improve. Now reports symptoms even at rest. While waiting today to come to the ED patient tripped and fell on the floor hiting her left foot on impact. On presentation to the ED patient is found to be hemodynamically stable, no evidence of fever. WBC of 13.5, creatinine of 1.5 (baseline), LFT's / alk phosph elevated, troponin from 112 to 125.5, BNP of 1028. Covid negative. Patient was given several doses of albuterol inhaler as well as lasix IV and solu-medrol. D dimer found to be elevated which raised concern for possible PE. Dopple of LE negative for DVT. Left foot xray positive for nondisplace oblique fracture of distal fibula. CXR clear, possible evidence of atelectasis. Decision for admission was given. Patient seen and examined at the bedside, laying down in bed in no acute distress. ROS as above otherwise negative. Physical exam positive for decreased bilateral breath sounds, no rales or wheezes on exam. Pitting edema +1 of bilateral LE, Cast of the left foot is evident. PMHX: 1. Type 2 diabetes mellitus. 2. Hyperlipidemia. 3. Hypertension. 4. Depression. 5. Insomnia. 6. Obstructive sleep apnea, for which she uses CPAP. 7. CKD stage III. 8. Moderate persistent asthma. 9. GERD 10.Sciatica Hospital course problem joe section: Asthma exacerbation: Initially started on nebs, oxygen-subsequently patient was found to have Acute on chronic diastolic heart failure : Started on IV Lasix and subsequently shortness of breath improved significantly Shortness of breath improved: Subsequently Lasix was put on hold and nephrology were consulted- creatinine seems to be in baseline today as per Nephro. Nephro suggested to restart Lasix upon discharge. Patient need to follow renal function and electrolyte outpatient with PCP and Nephro. 2. hyperkalemia: Losartan discontinued, hyperkalemia resolved Please monitor renal function and electrolyte out patiently and if needed start losartan outpatient as per Nephrology. 3.Elevated troponin likely due to renal dysfunction troponin from 112 to 125 seen by Cardiology echocardiogram shows EF 60-65% , and some hypokinesis -cardiology recommended stress test as outpatient. Patient is to follow-up with Cardiology outpatient. Cardiology may arrange their own appointment. 4.hypertension and bradycardia: Patient is symptomatic, heart rate is still in high 40s. Metoprolol adjusted 25 mg to b.i.d., amlodipine adjusted to 10 mg daily for blood pressure management further management outpatient as per PCP. 5.h/o CAD: continue with aspirin, Lopressor dose reduced from t.i.d. to b.i.d. given bradycardia. Above management discussed with the patient in detail length she understand and in agreement with the above plan, time spent 50 minutes and 50% time spent on counseling. Significant findings: As above. Procedures performed: None. Treatment and response: As above. Complications: None. Time Spent with Patient Time attestation: Total time spent providing and/or coordinating discharge services: Time spent: Greater than 30 minutes Physical Exam Vital Signs: Vital Signs: Vital Signs Temp Pulse Resp BP Pulse Ox 03/17/20 10:53 98.6 F 59 18 186/52 H 96 03/17/20 09:52 61 157/70 H 03/17/20 09:51 61 157/70 H 03/17/20 07:15 98.6 F 61 18 157/70 H 93 03/17/20 03:08 98.0 F 56 18 156/69 H 95 03/17/20 00:00 97.5 F 53 18 137/61 93 03/16/20 22:12 54 145/67 H 03/16/20 19:56 98.4 F 54 20 145/67 H 95 03/16/20 16:13 98.3 F 60 16 176/76 H 98 10/26/20 15:44 56 176/76 H 03/16/20 15:39 98.3 F 03/16/20 15:26 56 03/16/20 15:17 56 176/76 H Body Mass Index 35.4 Cvs: rrr, [id number] , no murmur res: clear to auscultation ,no rhonchii or wheezing abd: no rebound or guarding ,nt, bs present. ext pulses present , no cyanosis , left leg wrapped with dressing-no pain or swelling round it. neuro: axo3 , nonfocal. DS: Data Data Completed and Pending Labs on day of discharge: Labs from last 24 hours 03/17/20 03/17/20 03/16/20 11:13 07:18 21:12 Sodium Potassium Chloride Carbon Dioxide Anion Gap BUN Creatinine Estim Creat Clear Calc Estimated GFR POC Glucose 296 H 249 H 244 H Random Glucose Calcium 03/16/20 03/16/20 16:25 16:12 Sodium 140 Potassium 4.1 Chloride 98 Carbon Dioxide 30 H Anion Gap 16 BUN 54 H Creatinine 1.56 H Estim Creat Clear Calc 30.0 Estimated GFR 33 POC Glucose 315 H Random Glucose 317 H Calcium 9.2 Preliminary micro results at discharge 03/13/20 23:25 Blood Culture - Preliminary Blood - Venous No growth after 48 hours. 03/13/20 23:04 Blood Culture - Preliminary Blood - Venous No growth after 48 hours. Discharge Plan Discharge Anticipated Discharge Date/Time: 03/16/20 10:57 Patient Disposition: Home Health Service Referrals: [facility] will resume services [Other] Angelica Guerra MD [Primary Care Provider] - Discharge Medications: New prednisone 20 mg tablet 20 mg PO DAILY Qty: 3 RF: 0 amlodipine [Norvasc] 10 mg tablet 10 mg PO DAILY Qty: 30 RF: 0 Continued furosemide 40 mg tablet 1 tab PO DAILY RF: 0 metformin 500 mg tablet 1 tab PO DAILY RF: 0 anastrozole 1 mg tablet 1 tab PO DAILY RF: 0 gabapentin 600 mg tablet 1 tab PO TID RF: 0 sertraline 100 mg tablet 1 tab PO QAM RF: 0 cyanocobalamin (vitamin B-12) 1,000 mcg tablet 1 tab PO DAILY RF: 0 aspirin 81 mg tablet,delayed release (DR/EC) 1 tab PO DAILY RF: 0 oxycodone-acetaminophen 5-325 mg tablet 1 tab PO QID PRN (Reason: pain) RF: 0 pravastatin 80 mg tablet 1 tab PO DAILY RF: 0 benzonatate 100 mg capsule 1 cap PO TID PRN (Reason: cough) RF: 0 zafirlukast 20 mg tablet 1 tab PO BID RF: 0 omeprazole 20 mg capsule,delayed release(DR/EC) 1 cap PO DAILY RF: 0 mirtazapine 15 mg tablet 1 tab PO BEDTIME RF: 0 albuterol sulfate [Ventolin HFA] 90 mcg/actuation HFA aerosol inhaler 2 puff PO Q6H PRN (Reason: wheezing) RF: 0 hydroxyzine HCl 10 mg tablet 1 tab PO DAILY PRN (Reason: itch) RF: 0 clotrimazole 1 % cream topical BID RF: 0 cholecalciferol (vitamin D3) 125 mcg (5,000 unit) capsule 1 cap PO DAILY RF: 0 Fish Oil 340-1,000 mg capsule 1 cap PO BID RF: 0 budesonide-formoterol [Symbicort] 160-4.5 mcg/actuation HFA aerosol inhaler 2 puff PO Q12H RF: 0 diclofenac sodium 1 % gel topical BID RF: 0 Tradjenta 5 mg tablet 1 tab PO DAILY RF: 0 Breo Ellipta 100-25 mcg/dose blister with device 1 puff PO DAILY RF: 0 Humulin R U-500 (Conc) Kwikpen 500 unit/mL (3 mL) insulin pen subcut RF: 0 Changed metoprolol tartrate 25 mg tablet 1 tab PO BID Qty: 0 RF: 0 Discontinued losartan 100 mg tablet 1 tab PO DAILY RF: 0 Discharge Orders: Discharge Order (Routine); Ordered 03/17/20 Ordered By: Bhumika Stahl Diet: advance to your usual diet and diabetic diet Activity on Discharge: As tolerated Discharge Date/Time: 03/17/20 17:15 Other Ambulatory Orders: NM cardiolite stress test (Routine) Timeframe: 2 Weeks Facility: [facility] - Location: Nuclear Medicine Ordered By: Víctor Kim Visit Report Forms: Patient Portal Discharge page Care Plan Goals: prevent rehospitalization Health Concerns: no new health concerns at this time except patient's chronic medical conditions Plan of Treatment: prednisone Lasix
--- NOTE | 2020-03-17 14:58 | MHC.CM.PN ---
Patient was not dc yesterday like originally discussed. Patient has now been medically cleared for dc to home today with [facility]. Second IMM addressed.
== END 2020-03-17 17:15 | disposition home health service (06) | DRG 202 ==
LOC: HO.ED 03-14 03:06 → HO.IMC 03-14 05:10
PROVIDERS: Internal Medicine; Internal Medicine Nephrology; Admitting Provider Internal Medicine; Emergency Provider Emergency Medicine; PCP Internal Medicine; Visit Provider Internal Medicine
DX: J45.41 Moderate persistent asthma with (acute) exacerbation (principal); I13.0 Hypertensive heart and chronic kidney disease with heart failure and stage 1 through stage 4 chronic kidney disease, or unspecified chronic kidney disease; N17.9 Acute kidney failure, unspecified; I50.32 Chronic diastolic (congestive) heart failure; K21.9 Gastro-esophageal reflux disease without esophagitis; E78.5 Hyperlipidemia, unspecified; Z20.828 Contact with and (suspected) exposure to other viral communicable diseases; E11.22 Type 2 diabetes mellitus with diabetic chronic kidney disease; C50.919 Malignant neoplasm of unspecified site of unspecified female breast; E11.65 Type 2 diabetes mellitus with hyperglycemia; E87.5 Hyperkalemia; N18.30 Chronic kidney disease, stage 3 unspecified; F32.9 Major depressive disorder, single episode, unspecified; F41.9 Anxiety disorder, unspecified; Z99.89 Dependence on other enabling machines and devices; S82.832A Other fracture of upper and lower end of left fibula, initial encounter for closed fracture; W19.XXXA Unspecified fall, initial encounter; Y93.9 Activity, unspecified; Y92.9 Unspecified place or not applicable; Y99.9 Unspecified external cause status; G47.33 Obstructive sleep apnea (adult) (pediatric); I25.10 Atherosclerotic heart disease of native coronary artery without angina pectoris; R00.1 Bradycardia, unspecified; Z23 Encounter for immunization; Z88.5 Allergy status to narcotic agent; Z79.4 Long term (current) use of insulin; Z79.82 Long term (current) use of aspirin; Z79.899 Other long term (current) drug therapy
CPT/HCPCS: 36415; 71045; 73600; 73620; 78580; 80048; 80076; 82947; 83605; 83735; 83880; 84132; 84156; 84300; 84484; 85025; 85379; 85610; 85730; 87040; 87635; 90686; 93005; 93306; 93970; 96374; 96375; 99225; 99285; A9540; J0610; J1940; J2270; J2405; J2920; J2930

== ENCOUNTER → 2020-03-25 10:13 | Outpatient (BNVA) | payer MEDICARE, SELFPAY | PROVIDERS: PCP Internal Medicine; Referring Provider Internal Medicine; Visit Provider Internal Medicine Endocrinology, Diabetes & Metabolism | DX: E11.22 Type 2 diabetes mellitus with diabetic chronic kidney disease (principal); I12.9 Hypertensive chronic kidney disease with stage 1 through stage 4 chronic kidney disease, or unspecified chronic kidney disease; N18.9 Chronic kidney disease, unspecified; E11.319 Type 2 diabetes mellitus with unspecified diabetic retinopathy without macular edema; E11.40 Type 2 diabetes mellitus with diabetic neuropathy, unspecified; Z79.4 Long term (current) use of insulin; E78.5 Hyperlipidemia, unspecified; E66.9 Obesity, unspecified | CPT/HCPCS: 99212 ==

== ENCOUNTER 2020-03-30 12:09 | Outpatient (REF) | payer MEDICARE, SELFPAY ==
--- NOTE | 2020-03-30 12:51 | XR_ITS ---
EXAMINATION: XR ANKLE, LEFT CLINICAL INFORMATION: Follow-up fracture COMPARISON: Previous x-ray February 2020 TECHNIQUE: AP, lateral, and mortise views of the left ankle. FINDINGS: Nondisplaced fracture of the distal fibular shaft appears unchanged. No other fracture is seen. The ankle mortise is normal. There is a calcaneal spur at the Achilles tendon insertion. There is lateral soft tissue swelling. XR/XR ankle LT min 3V IMPRESSION: No change in nondisplaced distal fibular shaft fracture.
== END 2020-03-30 12:10 | disposition home or self-care (01) ==
LOC: HO.HOSX 12:09
PROVIDERS: Visit Provider Physician Assistant
DX: S82.62XA Displaced fracture of lateral malleolus of left fibula, initial encounter for closed fracture (principal)
CPT/HCPCS: 73610; 99202

== ENCOUNTER 2020-04-01 08:10 | Outpatient (REF) | payer MEDICARE, SELFPAY ==
[2020-04-01 08:48] LABS: MANUAL DIFF FLAG NO
[2020-04-01 09:05] LABS: Basophils Percent Auto 0.7 % (0-2); Eosinophils Absolute Auto 0.2 X10*3/uL (0.0-0.4); Eosinophils Percent Auto 3.4 % (0-4); Hematocrit 31.5 % (37-47); Hemoglobin 10.5 g/dl (12.0-16.0); Imm Gran Abs Auto 0.08 X10*3/uL (0.00-0.03); Imm Gran Pct Auto 1.3 % (0.0-0.4); Lymphocytes Absolute Auto 1.1 X10*3/uL (1.2-4.9); Lymphocytes Percent Auto 17.3 % (20-40); Mean Corpuscular HGB Conc 33.3 g/dl (31.0-35.0); Mean Corpuscular Hemoglobin 28.4 pg (27.0-33.0); Mean Corpuscular Volume 85.1 fL (80-98); Mean Platelet Volume 9.9 fL (9.4-12.3); Monocytes Absolute Auto 0.6 X10*3/uL (0.1-1.2); Neutrophils Absolute Auto 4.2 X10*3/uL (2.0-8.3); Neutrophils Percent Auto 68.3 % (45-73); Platelet Count 277 X10*3/uL (160-400); Red Cell Distribution Width 14.3 % (11.0-16.0); White Blood Count 6.1 X10*3/uL (4.8-10.8)
[2020-04-01 09:22] LABS: Albumin Level 3.5 g/dL (3.5-5.0); Anion Gap 14 (12-20); Blood Urea Nitrogen 18 mg/dL (9-16); Calcium 8.6 mg/dL (8.4-10.2); Carbon Dioxide 23 mmol/L (22-29); Chloride 105 mmol/L (96-108); Estimated Glomerular Filt Rate 41; Magnesium 1.6 mg/dL (1.6-2.6); Phosphorus 3.8 mg/dL (2.7-4.5); Sodium 137 mmol/L (135-145)
[2020-04-01 09:30] LABS: Glucose Urine UA NEG (NEG); Leukocyte Esterase Urine NEG (NEG); Nitrite Urine NEG (NEG); Specific Gravity - Urine 1.025 (1.005-1.025); Urine Blood NEG (NEG); Urine Ketones NEG (NEG); Urine Protein 2+ MG/DL (NEG-TRACE)
[2020-04-01 09:32] LABS: Appearance Urine CLEAR; Color Urine YELLOW
[2020-04-01 09:33] LABS: Renal w Reflex-LAB USE ONLY Order Verified
[2020-04-01 09:41] LABS: Bacteria Urine TRACE /LPF; RBC Urine 0 /HPF (0); Squamous Epithelial Cell Urine 2+ /LPF; WBC Urine 0-2 /HPF (0-4)
[2020-04-01 10:00] LABS: Creatinine Urine 63.18 mg/dL
[2020-04-01 10:02] LABS: Creatinine Urine 62.58 mg/dL; Protein/Creatinine Ratio, Ur 1.79 (<0.2); Total Protein Urine Random 112 mg/dL (<12)
[2020-04-01 10:13] LABS: Microalbum/Creatinine Ratio Ur 1060.4 ug/mg cr
[2020-04-01 13:21] LABS: Vitamin D 25-OH Total 33.5 ng/mL (>30)
[2020-04-01 14:16] LABS: Renal w Reflex Lab Use Only Order verified
[2020-04-03 12:02] LABS: PTHI 99 pg/mL (14-64)
== END 2020-04-01 08:11 | disposition home or self-care (01) ==
LOC: HO.LAB 08:10
PROVIDERS: PCP Internal Medicine; Visit Provider Internal Medicine Nephrology
DX: I12.9 Hypertensive chronic kidney disease with stage 1 through stage 4 chronic kidney disease, or unspecified chronic kidney disease (principal); E11.22 Type 2 diabetes mellitus with diabetic chronic kidney disease; N18.30 Chronic kidney disease, stage 3 unspecified
CPT/HCPCS: 36415; 80051; 81001; 82040; 82043; 82306; 82310; 82565; 83735; 83970; 84100; 84156; 84520; 85025

== ENCOUNTER → 2020-04-08 08:02 | Outpatient (REF) | payer MEDICARE, SELFPAY ==
--- NOTE | 2020-04-08 08:30 | CA_ITS ---
Acquisition Time: 2020-04-08 08:33:34 Total Exercise Time: 00:02:00 Test Indications: Dyspnea Medications: SEE DISCHARGE SUMMARY Protocol: LEXISCAN Max HR: 075 BPM 48% of Pred: 155 BPM Max BP: 152/070 mmHG Max Work Load: 1.0 METS Pharmacological stress test using Lexiscan while sitting and kicking her feet. Pt tolerated well, denies any anginal sx. EKG without any arrhythmias, non-diagnostic for ischemia. Nuclear images to follow. Normotensive response to test. Test reviewed with DR. Kim Referred By: Víctor Kim Overread By: Jody Mercedes
--- NOTE | 2020-04-08 08:40 | NM_ITS ---
Myocardial perfusion study Indication: Heart failure to evaluate for myocardial ischemia Technique: The patient was brought in for a Lexiscan perfusion study on 04/08/2020. Patient performed low-level exercise and was injected 0.4 mg of Lexiscan intravenously. Within a minute of injection, 25 mCi of sestamibi was given intravenously. Images were obtained using the SPECT gamma camera interlaced with the gating device. Images were obtained in supine position. Resting perfusion study was performed on 04/09/2020. Patient was administered 25 mCi of sestamibi intravenously at rest. Images were then obtained in supine position. Images obtained with and without CT attenuation. Total DLP 69 MGY-CM. Images were processed with the software and compared side to side in short axis, horizontal long axis and vertical long axis views. Findings: The stress perfusion study showed normal uptake of radiotracer in all segments of LV myocardium on non attenuated images. Attenuation corrected images show minimally reduced uptake in the apex of the LV myocardium. The gated study shows normal LV systolic function with calculated LVEF of 58%. LV cavity is normal in size. The gated study shows normal systolic wall thickening and contraction of segments. Resting study shows no change in perfusion study compared to stress perfusion study. Gating at rest reveals normal systolic wall motion with ejection fraction at 70%. The findings are consistent with normal myocardial perfusion. NM/NM cardiolite stress test Impression: 1. Myocardial perfusion imaging study shows normal myocardial perfusion 2. Gated LVEF is 58% 3. Transient ischemic dilatation not present EKG is nondiagnostic for ischemia
== END ==
LOC: HO.CARD 08:02
PROVIDERS: PCP Internal Medicine; Visit Provider Internal Medicine
DX: I50.9 Heart failure, unspecified (principal)
CPT/HCPCS: 78452; 93017; A9500; J0280; J2785

== ENCOUNTER → 2020-04-21 09:49 | Outpatient (BNVA) | payer MEDICARE, SELFPAY | PROVIDERS: PCP Internal Medicine; Visit Provider Nurse Practitioner Family | DX: E87.5 Hyperkalemia (principal); E11.21 Type 2 diabetes mellitus with diabetic nephropathy; E11.319 Type 2 diabetes mellitus with unspecified diabetic retinopathy without macular edema; E66.9 Obesity, unspecified; I11.0 Hypertensive heart disease with heart failure; I50.32 Chronic diastolic (congestive) heart failure; G47.33 Obstructive sleep apnea (adult) (pediatric); E78.5 Hyperlipidemia, unspecified; Z71.3 Dietary counseling and surveillance; Z79.4 Long term (current) use of insulin; Z99.89 Dependence on other enabling machines and devices | CPT/HCPCS: 99212 ==

== ENCOUNTER 2020-05-06 10:36 | Outpatient (REF) | payer MEDICARE, SELFPAY ==
--- NOTE | 2020-05-06 14:07 | XR_ITS ---
EXAMINATION: XR ANKLE, LEFT CLINICAL INFORMATION: Follow-up fracture COMPARISON: Previous x-ray March 2020 TECHNIQUE: AP, lateral, and mortise views of the left ankle. FINDINGS: There is a healing transverse fracture of the lateral malleolus. There is increasing bony callus formation. Fracture line is still seen. Alignment is unchanged. No other fracture is seen. The ankle mortise is normal. There is a calcaneal spur at the Achilles tendon insertion. XR/XR ankle LT min 3V IMPRESSION: Healing left lateral malleolar fracture.
== END 2020-05-06 10:37 | disposition home or self-care (01) ==
LOC: HO.HOSX 10:36
PROVIDERS: Visit Provider Physician Assistant
DX: S82.892A Other fracture of left lower leg, initial encounter for closed fracture (principal); S82.63XD Displaced fracture of lateral malleolus of unspecified fibula, subsequent encounter for closed fracture with routine healing
CPT/HCPCS: 73610; 99212

== ENCOUNTER 2020-05-08 10:04 | Outpatient (REF) | payer MEDICARE, SELFPAY ==
[2020-05-08 12:05] LABS: Anion Gap 15 (12-20); Blood Urea Nitrogen 20 mg/dL (9-16); Calcium 9.5 mg/dL (8.4-10.2); Carbon Dioxide 24 mmol/L (22-29); Chloride 107 mmol/L (96-108); Estimated Glomerular Filt Rate 46; Glucose Random 192 mg/dL (60-115); Potassium 5.2 mmol/l (3.3-5.1); Sodium 141 mmol/L (135-145)
[2020-05-08 12:09] LABS: B Type Natriuretic Peptide 485 pg/mL (<100)
== END 2020-05-08 10:05 | disposition home or self-care (01) ==
LOC: HO.LAB 10:04
PROVIDERS: PCP Internal Medicine; Visit Provider Nurse Practitioner Family
DX: I50.9 Heart failure, unspecified (principal); I11.0 Hypertensive heart disease with heart failure; G47.33 Obstructive sleep apnea (adult) (pediatric); E11.9 Type 2 diabetes mellitus without complications; E78.5 Hyperlipidemia, unspecified; Z99.89 Dependence on other enabling machines and devices
CPT/HCPCS: 80048; 83880; 99212

== ENCOUNTER → 2020-07-02 13:27 | Outpatient (BNVA) | payer MEDICARE, SELFPAY | PROVIDERS: PCP Internal Medicine; Visit Provider Hospitalist | DX: J45.40 Moderate persistent asthma, uncomplicated (principal); R06.00 Dyspnea, unspecified; I50.9 Heart failure, unspecified; G47.33 Obstructive sleep apnea (adult) (pediatric); Z99.89 Dependence on other enabling machines and devices | CPT/HCPCS: 99202 ==

== ENCOUNTER 2020-07-08 07:26 | Outpatient (REF) | payer MEDICARE, SELFPAY ==
[2020-07-08 08:12] LABS: MANUAL DIFF FLAG NO
[2020-07-08 08:14] LABS: Basophils Percent Auto 0.6 % (0-2); Eosinophils Absolute Auto 0.3 X10*3/uL (0.0-0.4); Eosinophils Percent Auto 3.8 % (0-4); Hematocrit 34.2 % (37-47); Hemoglobin 11.3 g/dl (12.0-16.0); Imm Gran Abs Auto 0.06 X10*3/uL (0.00-0.03); Imm Gran Pct Auto 0.9 % (0.0-0.4); Lymphocytes Absolute Auto 1.8 X10*3/uL (1.2-4.9); Lymphocytes Percent Auto 25.4 % (20-40); Mean Corpuscular Hemoglobin 27.8 pg (27.0-33.0); Monocytes Absolute Auto 0.9 X10*3/uL (0.1-1.2); Monocytes Percent Auto 12.5 % (2-11); Neutrophils Absolute Auto 3.9 X10*3/uL (2.0-8.3); Neutrophils Percent Auto 56.8 % (45-73); Platelet Count 244 X10*3/uL (160-400); Red Blood Count 4.07 X10*6/uL (4.20-5.50); Red Cell Distribution Width 13.8 % (11.0-16.0); White Blood Count 6.9 X10*3/uL (4.8-10.8)
[2020-07-08 09:08] LABS: Erythrocyte Sedimentation Rate 38 MM/HR (0-20)
== END 2020-07-08 07:27 | disposition home or self-care (01) ==
LOC: HO.LAB 07:26
PROVIDERS: PCP Internal Medicine; Referring Provider Nurse Practitioner Family; Visit Provider Hospitalist
DX: J45.909 Unspecified asthma, uncomplicated (principal)
CPT/HCPCS: 36415; 82785; 85025; 85652; 86003

== ENCOUNTER → 2020-08-03 10:06 | Outpatient (BNVA) | payer MEDICARE, SELFPAY | PROVIDERS: PCP Internal Medicine; Visit Provider Nurse Practitioner Family | DX: I11.0 Hypertensive heart disease with heart failure (principal); I50.9 Heart failure, unspecified; E11.22 Type 2 diabetes mellitus with diabetic chronic kidney disease; G47.33 Obstructive sleep apnea (adult) (pediatric); E78.5 Hyperlipidemia, unspecified; Z99.89 Dependence on other enabling machines and devices; Z79.899 Other long term (current) drug therapy; Z87.891 Personal history of nicotine dependence | CPT/HCPCS: 99212 ==

== ENCOUNTER 2020-08-20 08:59 | Outpatient (REF) | payer MEDICARE, SELFPAY ==
--- NOTE | 2020-08-20 11:31 | PFT_ITS ---
FLOWS: FEV1 of 76% of predicted at 1.33 L. FVC 66% of predicted at 1.53 L. FEV1 to FVC ratio of 0.87. No bronchodilator response. LUNG VOLUMES: Total lung capacity 77% of predicted at 3.11 L. Residual volume 79% of predicted at 1.40 L. Slow vital capacity 75% of predicted at 1.71 L. Expiratory reserve volume 57% of predicted at 0.27 L. Diffusion capacity is normal. IMPRESSION: Moderate restrictive ventilatory defect with no bronchodilator response. MD SHALOM Humphries/MODL / [id number]
== END 2020-08-20 09:00 | disposition home or self-care (01) ==
LOC: HO.RESP 08:59
PROVIDERS: PCP Internal Medicine; Visit Provider Hospitalist
DX: J45.909 Unspecified asthma, uncomplicated (principal)
CPT/HCPCS: 94060; 94727; 94729; 99212

== ENCOUNTER → 2020-09-01 13:55 | Outpatient (BNVA) | payer MEDICARE, SELFPAY | PROVIDERS: PCP Internal Medicine; Visit Provider Internal Medicine Endocrinology, Diabetes & Metabolism | DX: E11.319 Type 2 diabetes mellitus with unspecified diabetic retinopathy without macular edema (principal); E11.21 Type 2 diabetes mellitus with diabetic nephropathy; E11.22 Type 2 diabetes mellitus with diabetic chronic kidney disease; I12.9 Hypertensive chronic kidney disease with stage 1 through stage 4 chronic kidney disease, or unspecified chronic kidney disease; N18.9 Chronic kidney disease, unspecified; Z79.4 Long term (current) use of insulin; E78.5 Hyperlipidemia, unspecified; G62.9 Polyneuropathy, unspecified | CPT/HCPCS: 82947; 99212 ==

== ENCOUNTER 2020-11-25 17:43 | Emergency (ER) | payer MEDICARE, SELFPAY ==
--- NOTE | ~2020-11-25 | XR_ITS ---
EXAMINATION: XR CHEST CLINICAL INFORMATION: Shortness of breath COMPARISON: 03/14/2020 TECHNIQUE: 2 views of the chest were obtained. FINDINGS: Radiopaque anchor in the right humeral head. Right axillary surgical clips. The lungs are well expanded. There is no focal consolidation, edema, or effusion. Bronchial wall thickening. No pneumothorax. The cardiomediastinal silhouette is within normal limits of size with a calcified aorta. No acute osseous abnormality. XR/XR chest 2V IMPRESSION: No dense consolidation. Bronchial wall thickening can be seen with a small airways process such as asthma or atypical/viral infection.
[2020-11-25 18:27] VITALS: BP 146/69; PULSE 61; RESP 20; TEMP 36.8; O2SAT 94; BMI 37.2
--- NOTE | 2020-11-25 19:24 | ED.ASTHMA ---
HPI - Asthma General Chief Complaint: Asthma Stated Complaint: Asthma Time Seen by Provider: 11/25/20 19:23 Source: patient and family Limitations: no limitations History of Present Illness HPI Narrative: this is a 65-year-old female with a history of asthma and diabetes, as well as heart failure, who complains of wheezing since yesterday. The patient was seen in clinic today and had an EKG, was prescribed an albuterol inhaler, to use in addition to her albuterol nebulizer at home. The patient was referred here for further evaluation. The patient has had some chronic leg swelling. She denies any cough or fever. She does feel worse lying flat. She she has not had any chest pain. She denies any abdominal pain. Related Data Home Medications Medication Instructions Recorded Confirmed Fish Oil 1 cap PO BID 03/14/20 09/01/20 albuterol sulfate [Ventolin HFA] 2 puff PO Q6H PRN 03/14/20 09/01/20 anastrozole 1 tab PO DAILY 03/14/20 09/01/20 aspirin 1 tab PO DAILY 03/14/20 09/01/20 benzonatate 1 cap PO TID PRN 03/14/20 09/01/20 budesonide-formoterol [Symbicort] 2 puff PO Q12H 03/14/20 09/01/20 clotrimazole applic TOPICAL BID 03/14/20 09/01/20 cyanocobalamin (vitamin B-12) 1 tab PO DAILY 03/14/20 09/01/20 diclofenac sodium g TOPICAL BID 03/14/20 09/01/20 furosemide 1 tab PO DAILY 03/14/20 09/01/20 gabapentin 1 tab PO TID 03/14/20 09/01/20 hydroxyzine HCl 1 tab PO DAILY PRN 03/14/20 09/01/20 mirtazapine 1 tab PO BEDTIME 03/14/20 09/01/20 omeprazole 1 cap PO DAILY 03/14/20 09/01/20 oxycodone-acetaminophen 1 tab PO QID PRN 03/14/20 09/01/20 sertraline 1 tab PO QAM 03/14/20 09/01/20 docusate sodium 100 mg capsule 100 mg PO BID 04/21/20 09/01/20 mirtazapine 7.5 mg tablet 7.5 mg PO BEDTIME 04/21/20 09/01/20 losartan 50 mg tablet 50 mg PO DAILY 05/13/20 09/01/20 Previous Rx's Medication Instructions Recorded metoprolol tartrate 1 tab PO BID #0 tab 03/16/20 prednisone 20 mg PO DAILY #3 tab 03/16/20 amlodipine [Norvasc] 10 mg PO DAILY #30 tab 03/17/20 leg brace #1 ea 04/08/20 flash glucose sensor #2 ea 04/21/20 azelastine 205.5 mcg (0.15 %) 2 spray INTRANASAL BID 30 Days #30 07/02/20 nasal spray ml montelukast 10 mg tablet 10 mg PO BEDTIME 30 Days #30 tab 07/02/20 montelukast 10 mg tablet 10 mg PO BEDTIME 30 Days #30 tab 07/02/20 fluticasone fur. 200 mcg-umeclid 1 inh INHALATION DAILY 30 Days #60 08/20/20 62.5 mcg-vilant 25 mcg ea inhalat.powder prednisone 10 mg tablet 10 mg PO DAILY 18 Days #63 tab 08/20/20 insulin regular hum U-500 conc See Rx Instructions SUBCUT .Twice 09/01/20 a day 30 Days #12 ml cholecalciferol (vitamin D3) 125 125 mcg PO DAILY 90 Days #90 cap 09/15/20 mcg (5,000 unit) capsule metformin 500 mg tablet 500 mg PO DAILY 30 Days #30 tab 09/15/20 pen needle, diabetic 32 gauge x #100 ea 09/15/20 pravastatin 80 mg tablet 80 mg PO DAILY 90 Days #90 tab 09/15/20 linagliptin 5 mg tablet 5 mg PO DAILY 30 Days #30 tab 10/06/20 prednisone 40 mg PO DAILY #10 tab 11/25/20 Allergies Allergy/AdvReac Type Severity Reaction Status Date / Time tramadol [TRAMADOL] Allergy Severe THROAT, Verified 11/25/20 18:27 LIPS SWELLING, latex [LATEX] Allergy Intermediate RASH Verified 11/25/20 18:27 IV plastic insert Allergy Severe Hives and Uncoded 08/20/20 10:22 Itch Review of Systems Review of Systems: Yes all other systems are reviewed and are negative Constitutional: Constitutional: Reports as per HPI and Denies fever(s) Eyes: Eyes: Reports as per HPI and Reports no additional eye complaints ENT: Reports system reviewed and no additional complaints, except as documented, Reports as per HPI, Denies nasal congestion, Denies nasal discharge and Denies sore throat Cardiovascular: Cardiovascular: Reports as per HPI, Denies chest pain and Reports dyspnea Respiratory: Respiratory: Reports as per HPI, Denies cough and Reports dyspnea Gastrointestinal: Gastrointestinal: Reports as per HPI, Denies abdominal pain, Denies diarrhea and Denies vomiting Genitourinary: Genitourinary: Reports as per HPI, Denies hematuria, Denies urinary frequency and Denies dysuria Musculoskeletal: Musculoskeletal: Reports no additional musculoskeletal complaints and Denies numbness Integumentary/Breasts: Skin/Breast: Reports as per HPI and Denies rash Neurologic: Reports as per HPI, Denies focal weakness, Denies numbness and Denies Sensory deficit (Neuro) Psychiatric: Psychiatric: Reports no additional psychiatric complaints and Reports as per HPI Endocrine: Endocrine: Reports no additional endocrine complaints and Reports as per HPI Hematologic/Lymphatic: Hematologic/Lymphatic: Reports no additional hematologic/lymphatic complaints, Reports as per HPI and Reports other ( Chronic leg edema) [facility] Past Medical History Medical History (Updated 11/26/20 @ 00:00 by William Roche) Asthma Asthma Breast cancer Chronic restrictive lung disease Depression Diabetes mellitus, type 2 Diabetic nephropathy associated with type 2 diabetes mellitus Diabetic retinopathy associated with type 2 diabetes mellitus Dyslipidemia Dyspnea Essential hypertension GERD (gastroesophageal reflux disease) 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 Obesity (BMI 30-39.9) Obstructive sleep apnea on CPAP Other and unspecified hyperlipidemia Type 2 diabetes mellitus with unspecified complications Surgical History H/O: section Hx of appendectomy Social History Social History Household Members: Spouse Housing: Apartment Do you presently have visiting nurse or other home services: No Alcohol intake: never Advance Directives: No Advance Directives Information Provided: No service: No Current occupational status: disabled Physical Exam Vital Signs: Vital Signs: Last Vital Signs Temp 98.2 F 11/25/20 18:27 Pulse 61 11/25/20 20:10 Resp 16 11/25/20 19:43 BP 148/51 H 11/25/20 19:43 Pulse Ox 92 11/25/20 21:06 Body Mass Index 37.2 Const: General: cooperative, no acute distress and alert Orientation/consciousness: patient oriented x3 HENMT: Head: Yes normal to inspection Eyes: General: appearance normal, both eyes and all related structures Eyelids: Yes eyelids normal Conjunctivae: conjunctivae normal Pupils: Equal, round and reactive pupils present Neck: Neck: Yes normal visual inspection and Yes supple Chest: Chest palpation & inspection: normal inspection of the chest Resp: Effort & Inspection: normal respiratory effort, no audible wheezes, no cough and No prolonged expiratory phase Auscultation: clear to auscultation bilaterally Cardio: Rate: regular rate Rhythm: regular rhythm Heart sounds: S1 normal heart sound present, S2 normal heart sound present, no gallops, no murmurs and no rubs GI: Palpation (GI): Soft to palpation, nontender and Other GI palpation findings present (Non-distended) Auscultation: normal bowel sounds Skin: General skin exam: no rashes or lesions noted Neuro: General: patient oriented x3, no focal motor deficits and CN's II-XI intact bilaterally Cranial nerves: Yes Equal, round and reactive pupils present Cognition (Neuro): normal cognition Motor exam (neuro): 5/5 motor strength present throughout Sensory Exam: No Sensory deficit (Neuro) Extrem: General: Yes normal to inspection and No no pedal edema ( nonpitting edema to the lower legs bilaterally) Psych: Appearance: grossly normal Affect: normal affect MDM - Asthma MDM Narrative Medical decision making narrative: Patient with reported dyspnea, in the setting of asthma, was prescribed albuterol MDI today, has a home nebulizer machine. Patient denied any chest pain or pressure. She had clear lungs, perhaps mildly decreased breath sounds bilaterally. Chest x-ray showed no evidence of CHF or pneumonia. Patient had some improvement with an albuterol neb. Pulse oximetry was initially 94%, remained in the low 90s. Patient was given prednisone 40 mg p.o., and will be started on a 5 day course of prednisone. Imaging Data Chest x-ray: Radiologist's impression: Patient: Rsoario Cullen#: [id number]: 5Acct:[id number]/Sex: 65 / FADM Date: 11/25/20Loc: HO.EDAttending Dr: Ordering Physician: Manuel Gould MD Date of Service: 11/25/20 Procedure(s): XR chest 2V Accession Number(s): [id number] cc: Manuel Gould MD~ EXAMINATION: XR CHEST CLINICAL INFORMATION: Shortness of breath COMPARISON: 03/14/2020 TECHNIQUE: 2 views of the chest were obtained. FINDINGS: Radiopaque anchor in the right humeral head. Right axillary surgical clips. The lungs are well expanded. There is no focal consolidation, edema, or effusion. Bronchial wall thickening. No pneumothorax. The cardiomediastinal silhouette is within normal limits of size with a calcified aorta. No acute osseous abnormality. XR/XR chest 2V IMPRESSION: No dense consolidation. Bronchial wall thickening can be seen with a small airways process such as asthma or atypical/viral infection. Dictated By:Felice Nixon MDSigned By:<Electronically signed by Felice Nixon MD in OV>11/25/201937 Discharge Plan Discharge Clinical Impression: Asthma Patient Disposition: Home, Self-Care Instructions: Asthma (ED) Additional Instructions: continue using the albuterol nebulizer every 6 hours at home. Use the rescue albuterol inhaler as needed. Start the prednisone as prescribed. Follow-up with primary care physician. Return for any worsened symptoms such as worse shortness of breath Prescriptions: New prednisone 20 mg tablet 40 mg PO DAILY Qty: 10 RF: 0 No Action losartan 50 mg tablet 50 mg PO DAILY RF: 0 metformin 500 mg tablet 500 mg PO DAILY 30 Days Qty: 30 RF: 6 cholecalciferol (vitamin D3) 125 mcg (5,000 unit) capsule 125 mcg PO DAILY 90 Days Qty: 90 RF: 1 (DME) pen needle, diabetic 32 gauge x 5/32 needle See Rx Instructions ea .ROUTE BID Qty: 100 RF: 6 pravastatin 80 mg tablet 80 mg PO DAILY 90 Days Qty: 90 RF: 1 Tradjenta 5 mg tablet 5 mg PO DAILY 30 Days Qty: 30 RF: 6 furosemide 40 mg tablet 1 tab PO DAILY RF: 0 anastrozole 1 mg tablet 1 tab PO DAILY RF: 0 gabapentin 600 mg tablet 1 tab PO TID RF: 0 sertraline 100 mg tablet 1 tab PO QAM RF: 0 cyanocobalamin (vitamin B-12) 1,000 mcg tablet 1 tab PO DAILY RF: 0 aspirin 81 mg tablet,delayed release (DR/EC) 1 tab PO DAILY RF: 0 oxycodone-acetaminophen 5-325 mg tablet 1 tab PO QID PRN (Reason: pain) RF: 0 benzonatate 100 mg capsule 1 cap PO TID PRN (Reason: cough) RF: 0 omeprazole 20 mg capsule,delayed release(DR/EC) 1 cap PO DAILY RF: 0 mirtazapine 15 mg tablet 1 tab PO BEDTIME RF: 0 albuterol sulfate [Ventolin HFA] 90 mcg/actuation HFA aerosol inhaler 2 puff PO Q6H PRN (Reason: wheezing) RF: 0 hydroxyzine HCl 10 mg tablet 1 tab PO DAILY PRN (Reason: itch) RF: 0 clotrimazole 1 % cream topical BID RF: 0 Fish Oil 340-1,000 mg capsule 1 cap PO BID RF: 0 budesonide-formoterol [Symbicort] 160-4.5 mcg/actuation HFA aerosol inhaler 2 puff PO Q12H RF: 0 diclofenac sodium 1 % gel topical BID RF: 0 prednisone 20 mg tablet 20 mg PO DAILY Qty: 3 RF: 0 metoprolol tartrate 25 mg tablet 1 tab PO BID Qty: 0 RF: 0 amlodipine [Norvasc] 10 mg tablet 10 mg PO DAILY Qty: 30 RF: 0 (DME) FreeStyle Jeovany 14 Day Sensor Kit See Rx Instructions .MEDSUPPLY Qty: 2 RF: 11 (DME) Ankle Brace Misc See Rx Instructions .MEDSUPPLY Qty: 1 RF: 0 mirtazapine 7.5 mg tablet 7.5 mg PO BEDTIME RF: 0 docusate sodium 100 mg capsule 100 mg PO BID RF: 0 montelukast [Singulair] 10 mg tablet 10 mg PO BEDTIME 30 Days Qty: 30 RF: 11 azelastine 0.15 % (205.5 mcg) spray,non-aerosol 2 spray intranasal BID 30 Days Qty: 30 RF: 11 montelukast [Singulair] 10 mg tablet 10 mg PO BEDTIME 30 Days Qty: 30 RF: 11 Trelegy Ellipta 200-62.5-25 mcg blister with device 1 inh inhalation DAILY 30 Days Qty: 60 RF: 12 prednisone 10 mg tablet 10 mg PO DAILY 18 Days Qty: 63 RF: 0 Humulin R U-500 (Conc) Kwikpen 500 unit/mL (3 mL) insulin pen See Rx Instructions subcut .Twice a day 30 Days Qty: 12 RF: 6 Interventions: ED Discharge Assessment Last Done: 11/25/20 21:07 Discharge Date/Time: 11/25/20 21:08
[2020-11-25 19:43] VITALS: BP 148/51; PULSE 61; RESP 16; O2SAT 96
[2020-11-25] MEDS: Albuterol/Iprat 2.5/0.5MG 3 ML AMPUL.NEB 1.5 ML INHALE (20:09)
[2020-11-25 20:10] VITALS: PULSE 61; O2SAT 96
[2020-11-25] MEDS: predniSONE 20 MG TABLET 40 MG PO (21:01)
[2020-11-25 21:06] VITALS: O2SAT 92
== END 2020-11-25 21:08 | disposition home or self-care (01) ==
PROVIDERS: Emergency Provider Emergency Medicine; PCP Internal Medicine
DX: J45.909 Unspecified asthma, uncomplicated (principal); E11.9 Type 2 diabetes mellitus without complications; I10 Essential (primary) hypertension; Z79.4 Long term (current) use of insulin; Z79.899 Other long term (current) drug therapy
CPT/HCPCS: 71046; 94640; 99284

== ENCOUNTER → 2020-12-28 09:21 | Outpatient (REF) | payer MEDICARE, SELFPAY ==
--- NOTE | ~2020-12-28 | NM_ITS ---
Lexiscan Myocardial perfusion study Indication: Shortness of breath, assess for coronary disease and ischemia Technique: The patient was brought in for a Lexiscan perfusion study on 12/28/2020 and was injected 0.4 mg of Lexiscan intravenously. Within a minute of this injection 25 mCi of sestamibi was given intravenously. Images were obtained using the SPECT gamma camera interlaced with the gating device. Images were obtained in supine position. Resting perfusion study was performed on 12/29/2020. Patient was administered 25 mCi of sestamibi intravenously at rest. Images were then obtained in supine position. Total DLP 98mGy-cm. Images were processed with the software and compared side to side in short axis, horizontal long axis and vertical long axis views. Findings: Raw acquisition was reviewed. The stress perfusion study showed no significant perfusion abnormality. Both uncorrected as well as CT attenuation corrected images were reviewed. The gated study shows normal LV systolic function with calculated LVEF of 65%. LV cavity is normal in size. The gated study shows normal wall thickening and contraction of segments. Resting study shows no significant perfusion abnormality. Gating at rest reveals normal wall motion with ejection fraction at 72%. The findings are consistent with no reversible or fixed perfusion abnormality. NM/NM david perf SPECT rest & str Impression: 1. Myocardial perfusion imaging study shows normal myocardial perfusion. 2. Gated LVEF is 65% during stress and 72% during rest. 3. Transient ischemic dilatation not present. EKG component of the test reported separately.
--- NOTE | 2020-12-28 10:00 | CA_ITS ---
Acquisition Time: 2020-12-28 09:48:55 Total Exercise Time: 00:02:00 Test Indications: Dyspnea Medications: SEE H Protocol: LEXISCAN Max HR: 076 BPM 49% of Pred: 154 BPM Max BP: 128/054 mmHG Max Work Load: 1.0 METS Pharmacological stress test with Lexiscan injection, while sitting and kicking her legs, without anginal symptoms, with isolated PAC, with normotensive response to injection, with nondiagnostic EKG for ischemia. Nuclear images pending.Test reviewed with Dr Greer. Referred By: Raudel Castaneda Overread By: DARLEEN BENEDICT
== END ==
LOC: HO.CARD 09:21
PROVIDERS: Visit Provider Internal Medicine Cardiovascular Disease
DX: I50.9 Heart failure, unspecified (principal); R06.00 Dyspnea, unspecified
CPT/HCPCS: 78452; 93017; A9500; J0280; J2785

== ENCOUNTER 2021-01-13 08:13 | Outpatient (REF) | payer MEDICARE, SELFPAY ==
[2021-01-13 09:16] LABS: MANUAL DIFF FLAG NO
[2021-01-13 09:17] LABS: Basophils Percent Auto 0.4 % (0-2); Eosinophils Absolute Auto 0.2 X10*3/uL (0.0-0.4); Eosinophils Percent Auto 3.1 % (0-4); Hematocrit 29.8 % (37-47); Hemoglobin 9.8 g/dl (12.0-16.0); Imm Gran Pct Auto 1.5 % (0.0-0.4); Lymphocytes Absolute Auto 1.1 X10*3/uL (1.2-4.9); Mean Corpuscular HGB Conc 32.9 g/dl (31.0-35.0); Mean Corpuscular Hemoglobin 28.3 pg (27.0-33.0); Mean Corpuscular Volume 86.1 fL (80-98); Mean Platelet Volume 10.7 fL (9.4-12.3); Monocytes Absolute Auto 0.6 X10*3/uL (0.1-1.2); Monocytes Percent Auto 8.5 % (2-11); Neutrophils Absolute Auto 4.8 X10*3/uL (2.0-8.3); Neutrophils Percent Auto 70.5 % (45-73); Platelet Count 239 X10*3/uL (160-400); Red Blood Count 3.46 X10*6/uL (4.20-5.50); Red Cell Distribution Width 14.6 % (11.0-16.0); White Blood Count 6.9 X10*3/uL (4.8-10.8)
[2021-01-13 09:44] LABS: Albumin Level 3.7 g/dL (3.5-5.0); Anion Gap 15 (12-20); Blood Urea Nitrogen 38 mg/dL (9-16); Calcium 9.6 mg/dL (8.4-10.2); Carbon Dioxide 26 mmol/L (22-29); Chloride 104 mmol/L (96-108); Estimated Glomerular Filt Rate 25; Iron 60 mcg/dL (30-160); Magnesium 1.9 mg/dL (1.6-2.6); Phosphorus 3.7 mg/dL (2.7-4.5); Potassium 4.7 mmol/L (3.3-5.1); Sodium 140 mmol/L (135-145)
[2021-01-13 09:59] LABS: Vitamin D 25-OH Total 77.1 ng/mL (>30)
[2021-01-13 10:05] LABS: Glucose Urine UA NEG (NEG); Leukocyte Esterase Urine NEG (NEG); Nitrite Urine NEG (NEG); PH 6.5 (5.0-8.0); Specific Gravity - Urine 1.015 (1.005-1.025); Urine Blood NEG (NEG); Urine Ketones NEG (NEG); Urine Protein TRACE MG/DL (NEG-TRACE)
[2021-01-13 10:06] LABS: Appearance Urine HAZY; Color Urine YELLOW
[2021-01-13 10:38] LABS: Creatinine Urine 49.92 mg/dL; Microalbum/Creatinine Ratio Ur 398.6 ug/mg cr; Protein/Creatinine Ratio, Ur 0.64 (<0.2); Total Protein Urine Random 32 mg/dL (<12)
[2021-01-13 14:57] LABS: Percent Iron Saturation 17 % (15-50); Total Iron Binding Capacity 360 mcg/dL (228-428); Unsaturated Iron Binding 300 ug/dL
[2021-01-15 19:32] LABS: Calcium (PTHI) 9.7 mg/dL (8.6-10.4); PTHI 91 pg/mL (14-64)
== END 2021-01-13 08:14 | disposition home or self-care (01) ==
LOC: HO.LAB 08:13
PROVIDERS: PCP Internal Medicine; Visit Provider Internal Medicine Nephrology
DX: N18.4 Chronic kidney disease, stage 4 (severe) (principal); E11.22 Type 2 diabetes mellitus with diabetic chronic kidney disease; R80.9 Proteinuria, unspecified
CPT/HCPCS: 36415; 80051; 81003; 82040; 82043; 82306; 82310; 82565; 83540; 83735; 83970; 84100; 84156; 84520; 85025; 87086

== ENCOUNTER → 2021-03-23 09:34 | Outpatient (BNVA) | payer MEDICARE, SELFPAY | PROVIDERS: PCP Internal Medicine; Visit Provider Hospitalist | DX: J45.40 Moderate persistent asthma, uncomplicated (principal); J98.4 Other disorders of lung; G47.33 Obstructive sleep apnea (adult) (pediatric); R06.00 Dyspnea, unspecified; Z99.89 Dependence on other enabling machines and devices | CPT/HCPCS: 99212 ==

== ENCOUNTER 2021-04-18 15:08 | Emergency (ER) | payer MEDICARE, SELFPAY ==
--- NOTE | ~2021-04-18 | XR_ITS ---
EXAMINATION: XR CHEST CLINICAL INFORMATION: Chest pain. COMPARISON: Chest radiograph dated 11/25/2020. TECHNIQUE: Frontal view of the chest was obtained. FINDINGS: No focal airspace consolidation. Previously seen patchy right basilar airspace opacities no longer seen. No pleural effusion or pneumothorax. Stable cardiomediastinal silhouette. Interval placement of a left chest wall pacer with its leads in the right heart. Right humeral head surgical anchor, unchanged. XR/XR chest 1V IMPRESSION: No acute cardiopulmonary findings.
--- NOTE | 2021-04-18 15:14 | ECG_ITS ---
Test Reason : CHEST PAIN Blood Pressure : / mmHG Vent. Rate : 074 BPM Atrial Rate : 074 BPM P-R Int : 162 ms QRS Dur : 080 ms QT Int : 398 ms P-R-T Axes : 071 022 069 degrees QTc Int : 441 ms Normal sinus rhythm Normal ECG When compared with ECG of 15-MAR-2020 09:01, No significant change was found Referred By: Generic ED Physician Electronically Signed By:KIMANI FISCHER MD
[2021-04-18 15:19] VITALS: BP 151/90; PULSE 80; O2SAT 98
[2021-04-18 15:48] VITALS: BP 157/51; PULSE 75; RESP 20; TEMP 36.5; O2SAT 98; BMI 35.6
--- NOTE | 2021-04-18 15:56 | ED.CHESTPAIN ---
HPI - Chest Pain General Chief Complaint: Chest Pain Stated Complaint: cp Time Seen by Provider: 04/18/21 15:42 Source: patient and EMS Mode of arrival: EMS History of Present Illness HPI narrative: 65-year-old female with a past medical history of diabetes, hyperlipidemia, hypertension, depression, insomnia, obstructive sleep apnea on CPAP, CKD, asthma, GERD, sciatica, presenting to the ED complaining of sudden onset chest pain after witnessing granddaughter had seizure. Admits initially felt SOB/anxious. Reports mild symptomatic improvement at present. Denies fever, chills, cough, abdominal pain, nausea/vomiting, LE edema MD complaint: chest pain Related Data Home Medications Medication Instructions Recorded Confirmed albuterol sulfate 90 mcg/actuation 2 puff PO Q6H PRN 03/14/20 09/01/20 aerosol inhaler (Ventolin HFA) anastrozole 1 mg tablet 1 tab PO DAILY 03/14/20 09/01/20 aspirin 81 mg tablet,delayed 1 tab PO DAILY 03/14/20 09/01/20 release budesonide-formoterol HFA 160 2 puff PO Q12H 03/14/20 09/01/20 mcg-4.5 mcg/actuation aerosol inhaler (Symbicort) cyanocobalamin (vitamin B-12) 1 tab PO DAILY 03/14/20 09/01/20 1,000 mcg tablet gabapentin 600 mg tablet 1 tab PO TID 03/14/20 09/01/20 hydroxyzine HCl 10 mg tablet 1 tab PO DAILY PRN 03/14/20 09/01/20 omeprazole 20 mg capsule,delayed 1 cap PO DAILY 03/14/20 09/01/20 release oxycodone-acetaminophen 5 mg-325 1 tab PO QID PRN 03/14/20 09/01/20 mg tablet docusate sodium 100 mg capsule 100 mg PO BID 04/21/20 09/01/20 mirtazapine 7.5 mg tablet 7.5 mg PO BEDTIME 04/21/20 09/01/20 losartan 50 mg tablet 50 mg PO DAILY 05/13/20 09/01/20 insulin aspart U-100 100 unit/mL 8 - 20 unit SUBCUT TID ml 03/12/21 (3 mL) subcutaneous pen (Novolog Flexpen U-100 Insulin aspart) insulin glargine 100 unit/mL (3 44 unit SUBCUT QPM ml 03/12/21 mL) subcutaneous pen (Lantus Solostar U-100 Insulin) ascorbic acid (vitamin C) 500 mg 500 mg PO Q OTHER DAY 03/23/21 tablet (Vitamin C) atorvastatin 40 mg tablet 40 mg PO BEDTIME 03/23/21 carvedilol 6.25 mg tablet 6.25 mg PO BID 03/23/21 dapagliflozin 5 mg tablet (Farxiga) 5 mg PO QAM 03/23/21 folic acid 1 mg tablet 1 mg PO DAILY 03/23/21 hydralazine 50 mg tablet 50 mg PO TID 03/23/21 isosorbide dinitrate 20 mg tablet 20 mg PO TID 03/23/21 sertraline 50 mg tablet 50 mg PO QAM 03/23/21 torsemide 20 mg tablet 20 mg PO DAILY 03/23/21 Previous Rx's Medication Instructions Recorded amlodipine 10 mg tablet (Norvasc) 10 mg PO DAILY #30 tab 03/17/20 flash glucose sensor (FreeStyle #2 ea 04/21/20 Jeovany 14 Day Sensor) azelastine 205.5 mcg (0.15 %) 2 spray INTRANASAL BID 30 Days #30 07/02/20 nasal spray ml montelukast 10 mg tablet 10 mg PO BEDTIME 30 Days #30 tab 07/02/20 (Singulair) fluticasone fur. 200 mcg-umeclid 1 inh INHALATION DAILY 30 Days #60 08/20/20 62.5 mcg-vilant 25 mcg ea inhalat.powder (Trelegy Ellipta) cholecalciferol (vitamin D3) 125 125 mcg PO DAILY 90 Days #90 cap 09/15/20 mcg (5,000 unit) capsule pen needle, diabetic 32 gauge x #100 ea 09/15/20 linagliptin 5 mg tablet (Tradjenta) 5 mg PO DAILY 30 Days #30 tab 10/06/20 Allergies Allergy/AdvReac Type Severity Reaction Status Date / Time tramadol [TRAMADOL] Allergy Severe THROAT, Verified 03/23/21 09:44 LIPS SWELLING, latex [LATEX] Allergy Intermediate RASH Verified 03/23/21 09:44 IV plastic insert Allergy Severe Hives and Uncoded 03/23/21 09:44 Itch Review of Systems Review of Systems: Constitutional: No Fever, No Fatigue, No Malaise ENT/Mouth:No Ear Pain, No Nasal Congestion, No sore throat, No Swallowing Difficulty Eyes: No Eye Pain, No Swelling, No Redness Cardiovascular: + Chest Pain, + SOB (resolved), No Dyspnea on Exertion, No Edema Respiratory: No Cough, No Sputum, No Dyspnea Gastrointestinal: No Nausea, No Vomiting, No Diarrhea, No Constipation, No Abdominal pain Genitourinary: No Dysuria,No Hematuria, No Flank Pain Musculoskeletal: No joint pain, No Myalgias, No Joint Swelling Skin: No Skin Lesions, No rash Neuro: No Weakness, No Numbness, No Paresthesias, No Loss of Consciousness, No Dizziness, No Headache Yes all other systems are reviewed and are negative [facility] Past Medical History Attestation statement: The following information was validated with the patient. Medical History Asthma Asthma Breast cancer Chronic restrictive lung disease Depression Diabetes mellitus, type 2 Diabetic nephropathy associated with type 2 diabetes mellitus Diabetic retinopathy associated with type 2 diabetes mellitus Dyslipidemia Dyspnea Essential hypertension GERD (gastroesophageal reflux disease) [facility] (current) use of insulin Obesity (BMI 30-39.9) Obstructive sleep apnea on CPAP Other and unspecified hyperlipidemia Type 2 diabetes mellitus with unspecified complications Surgical History H/O: section Hx of appendectomy Social History Social History Household Members: Spouse Housing: Apartment Do you presently have visiting nurse or other home services: No Alcohol intake: never Patient Tobacco Use Status: Former Tobacco user Tobacco use type: Cigarette Years Smoked: 12 years Advance Directives: No Advance Directives Information Provided: No service: No Current occupational status: disabled Physical Exam Vital Signs: Vital Signs: Last Vital Signs Temp 97.7 F 04/18/21 15:48 Pulse 75 04/18/21 15:48 Resp 20 04/18/21 15:48 BP 157/51 H 04/18/21 15:48 Pulse Ox 98 04/18/21 15:48 Body Mass Index 35.6 Const: General: cooperative, healthy appearing and no acute distress Orientation/consciousness: patient oriented x3 Limitations: no limitations HENMT: Head: Yes normal to inspection and Yes atraumatic Ears: hearing grossly normal bilaterally General nose exam: Normal external nose present Face and sinus: Yes normal facial exam Eyes: General: appearance normal, both eyes and all related structures EOM: EOMs intact bilaterally Neck: Neck: Yes normal visual inspection and Yes no meningeal signs Chest: Chest palpation & inspection: normal inspection of the chest, no crepitus and tenderness (Left anterior chest wall) Resp: Effort & Inspection: normal respiratory effort Auscultation: clear to auscultation bilaterally, no rales, no rhonchi and no wheezes Cardio: Rate: regular rate Heart sounds: S1 normal heart sound present and S2 normal heart sound present GI: Inspection: Yes normal to inspection Palpation (GI): Soft to palpation, nontender, no guarding and not rigid Skin: Rashes: no rashes Wounds: no wounds Neuro: General: patient oriented x3 and no meningeal signs Gait exam (Neuro): Normal gait present Extrem: Other: 1+ bilaterally edema Course Course Course Narrative: -1653--no leukocytosis. H&H at patient's baseline. Chronic CKD. AST/ALT chronically elevated -initial troponin 9.3 > will obtain 3 or repeat XR chest 1V IMPRESSION: No acute cardiopulmonary findings. -1800--ED care transferred to PURVI Rodriguez pending repeat troponin at 1900 & anticipated DC home MDM - Chest Pain MDM Narrative Medical decision making narrative: 65-year-old female with a past medical history of diabetes, hyperlipidemia, hypertension, depression, insomnia, obstructive sleep apnea on CPAP, CKD, asthma, GERD, sciatica, presenting to the ED complaining of sudden onset chest pain after witnessing granddaughter had seizure. On exam vital signs stable, NAD, well-appearing, lungs CTA, 1+ bilateral edema. Concern for anxiety reaction/panic attack. Rule out ACS vs CHF. Lower concern for asthma exacerbation/PE Plan: EKG, labs, CXR, troponin x2 Medical Records Data Attestation: I reviewed the patient's medical records. Lab Data Attestation: I reviewed the patient's lab results. Result diagrams: 04/18/21 16:01 04/18/21 16:01 Labs: Lab Results 04/18/21 04/18/21 04/18/21 Range/Units 16:01 16:01 16:01 WBC 6.9 (4.8-10.8) X10*3/uL RBC 3.50 L (4.20-5.50) X10*6/uL Hgb 9.8 L (12.0-16.0) g/dl Hct 29.8 L (37.0-47.0) % MCV 85.1 (80.0-98.0) fL MCH 28.0 (27.0-33.0) pg MCHC 32.9 (31.0-35.0) g/dl RDW 13.6 (11.0-16.0) % Plt Count 214 (160-400) X10*3/uL MPV 9.8 (9.4-12.3) fL Immature Gran % (Auto) 0.6 H (0.0-0.4) % Neut % (Auto) 75.1 H (45-73) % Lymph % (Auto) 14.2 L (20-40) % [place] % (Auto) 7.3 (2-11) % Eos % (Auto) 2.2 (0-4) % Baso % (Auto) 0.6 (0-2) % Lymph # (Auto) 1.0 L (1.2-4.9) X10*3/uL [place] # (Auto) 0.5 (0.1-1.2) X10*3/uL Eos # (Auto) 0.2 (0.0-0.4) X10*3/uL Baso # (Auto) 0.0 (0.0-0.2) X10*3/uL Abs Immat Gran (auto) 0.04 H (0.00-0.03) X10*3/uL Absolute Neuts (auto) 5.2 (2.0-8.3) x10*3/uL Absolute Nucleated RBC 0.000 (0.0-0.012) X10*3/uL Nucleated RBC % (auto) 0.0 (0.0-0.2) /100WBC Sodium 141 (135-145) mmol/L Potassium 3.9 (3.3-5.1) mmol/L Chloride 109 H (96-108) mmol/L Carbon Dioxide 21 L (22-29) mmol/L Anion Gap 15 (12-20) BUN 27 H (9-16) mg/dL Creatinine 1.74 H (0.5-1.4) mg/dL Estim Creat Clear Calc 26.6 Estimated GFR 29 Random Glucose 308 H (60-115) mg/dL Calcium 9.9 (8.4-10.2) mg/dL Magnesium 1.9 (1.6-2.6) mg/dL Total Bilirubin 0.5 (0.0-1.0) mg/dL Direct Bilirubin 0.3 (0.0-0.5) mg/dL AST 58 H (5-31) U/L ALT 78 H (0-31) U/L Alkaline Phosphatase 237 H D (39-117) U/L Troponin I High Sens 9.3 (<3.5-17.0) ng/L B-Natriuretic Peptide 128 H (<100) pg/mL Total Protein 7.4 (6.5-8.0) g/dL Albumin 4.0 (3.5-5.0) g/dL Discharge Plan Discharge Clinical Impression: Anxiety Chest pain Qualifiers: Chest pain type: unspecified Qualified Code(s): R07.9 - Chest pain, unspecified Patient Disposition: Still a Patient Instructions: Chest Pain (ED) Additional Instructions: Your blood work and chest x-ray were reassuring today in the emergency department It is very important for you to follow-up with her primary care doctor If her symptoms persist or worsen, have constant worsening shortness breath, chest pain, fever or swelling in her legs please return to the ED [place] an?lisis de shakir y radiograf?a de t?rax fueron tranquilizadores hoy en el departamento de emergencias. Es muy importante que hagas un seguimiento con [facility] m?dico de atenci?n primaria. Si belen s?ntomas persisten o empeoran, tiene dificultad para respirar que empeora constantemente, dolor en el pecho, fiebre o hinchaz?n en las piernas, regrese al servicio de urgencias. Prescriptions: No Action losartan 50 mg tablet 50 mg PO DAILY RF: 0 cholecalciferol (vitamin D3) 125 mcg (5,000 unit) capsule 125 mcg PO DAILY 90 Days Qty: 90 RF: 1 (DME) pen needle, diabetic 32 gauge x 5/32 needle See Rx Instructions ea .ROUTE BID Qty: 100 RF: 6 Tradjenta 5 mg tablet 5 mg PO DAILY 30 Days Qty: 30 RF: 6 Lantus Solostar U-100 Insulin 100 unit/mL (3 mL) insulin pen 44 unit subcut QPM RF: 0 insulin aspart U-100 [Novolog Flexpen U-100 Insulin] 100 unit/mL (3 mL) insulin pen 8 - 20 unit subcut TID RF: 0 anastrozole 1 mg tablet 1 tab PO DAILY RF: 0 gabapentin 600 mg tablet 1 tab PO TID RF: 0 cyanocobalamin (vitamin B-12) 1,000 mcg tablet 1 tab PO DAILY RF: 0 aspirin 81 mg tablet,delayed release (DR/EC) 1 tab PO DAILY RF: 0 oxycodone-acetaminophen 5-325 mg tablet 1 tab PO QID PRN (Reason: pain) RF: 0 omeprazole 20 mg capsule,delayed release(DR/EC) 1 cap PO DAILY RF: 0 albuterol sulfate [Ventolin HFA] 90 mcg/actuation HFA aerosol inhaler 2 puff PO Q6H PRN (Reason: wheezing) RF: 0 hydroxyzine HCl 10 mg tablet 1 tab PO DAILY PRN (Reason: itch) RF: 0 budesonide-formoterol [Symbicort] 160-4.5 mcg/actuation HFA aerosol inhaler 2 puff PO Q12H RF: 0 amlodipine [Norvasc] 10 mg tablet 10 mg PO DAILY Qty: 30 RF: 0 (DME) FreeStyle Jeovany 14 Day Sensor Kit See Rx Instructions .MEDSUPPLY Qty: 2 RF: 11 mirtazapine 7.5 mg tablet 7.5 mg PO BEDTIME RF: 0 docusate sodium 100 mg capsule 100 mg PO BID RF: 0 azelastine 0.15 % (205.5 mcg) spray,non-aerosol 2 spray intranasal BID 30 Days Qty: 30 RF: 11 montelukast [Singulair] 10 mg tablet 10 mg PO BEDTIME 30 Days Qty: 30 RF: 11 Trelegy Ellipta 200-62.5-25 mcg blister with device 1 inh inhalation DAILY 30 Days Qty: 60 RF: 12 sertraline 50 mg tablet 50 mg PO QAM RF: 0 ascorbic acid (vitamin C) [Vitamin C] 500 mg tablet 500 mg PO Q OTHER DAY RF: 0 carvedilol 6.25 mg tablet 6.25 mg PO BID RF: 0 atorvastatin 40 mg tablet 40 mg PO BEDTIME RF: 0 torsemide 20 mg tablet 20 mg PO DAILY RF: 0 Farxiga 5 mg tablet 5 mg PO QAM RF: 0 hydralazine 50 mg tablet 50 mg PO TID RF: 0 isosorbide dinitrate 20 mg tablet 20 mg PO TID RF: 0 folic acid 1 mg tablet 1 mg PO DAILY RF: 0 Referrals: Angela Luz MD [Primary Care Provider] - 2 days Print Language: Croatian
[2021-04-18 16:05] LABS: MANUAL DIFF FLAG NO
[2021-04-18 16:06] LABS: Basophils Percent Auto 0.6 % (0-2); Eosinophils Absolute Auto 0.2 X10*3/uL (0.0-0.4); Eosinophils Percent Auto 2.2 % (0-4); Hematocrit 29.8 % (37.0-47.0); Hemoglobin 9.8 g/dl (12.0-16.0); Imm Gran Abs Auto 0.04 X10*3/uL (0.00-0.03); Imm Gran Pct Auto 0.6 % (0.0-0.4); Lymphocytes Percent Auto 14.2 % (20-40); Mean Corpuscular HGB Conc 32.9 g/dl (31.0-35.0); Mean Corpuscular Volume 85.1 fL (80.0-98.0); Mean Platelet Volume 9.8 fL (9.4-12.3); Monocytes Absolute Auto 0.5 X10*3/uL (0.1-1.2); Monocytes Percent Auto 7.3 % (2-11); Neutrophils Absolute Auto 5.2 x10*3/uL (2.0-8.3); Neutrophils Percent Auto 75.1 % (45-73); Platelet Count 214 X10*3/uL (160-400); Red Cell Distribution Width 13.6 % (11.0-16.0); White Blood Count 6.9 X10*3/uL (4.8-10.8)
[2021-04-18] MEDS: LORazepam 0.5 MG TABLET PO (16:18)
[2021-04-18 16:29] LABS: B Type Natriuretic Peptide 128 pg/mL (<100); Troponin-I High Sensitivity 9.3 ng/L (<3.5-17.0)
[2021-04-18 16:33] LABS: Alanine Aminotransferase 78 U/L (0-31); Alkaline Phosphatase 237 U/L (39-117); Anion Gap 15 (12-20); Aspartate Amino Transferase 58 U/L (5-31); Bilirubin Direct 0.3 mg/dL (0.0-0.5); Bilirubin Total 0.5 mg/dL (0.0-1.0); Blood Urea Nitrogen 27 mg/dL (9-16); Calcium 9.9 mg/dL (8.4-10.2); Carbon Dioxide 21 mmol/L (22-29); Chloride 109 mmol/L (96-108); Creatinine Clr Calc Pharmacy 26.6; Estimated Glomerular Filt Rate 29; Glucose Random 308 mg/dL (60-115); Magnesium 1.9 mg/dL (1.6-2.6); Potassium 3.9 mmol/L (3.3-5.1); Sodium 141 mmol/L (135-145); Total Protein 7.4 g/dL (6.5-8.0)
[2021-04-18 18:42] VITALS: PULSE 60; RESP 18; O2SAT 98
[2021-04-18 19:49] LABS: Troponin-I High Sensitivity 10.2 ng/L (<3.5-17.0)
[2021-04-18 20:06] VITALS: BP 148/51; PULSE 71; RESP 16; O2SAT 97
== END 2021-04-18 20:09 | disposition home or self-care (01) ==
PROVIDERS: Physician Assistant; Emergency Provider Internal Medicine; PCP Internal Medicine
DX: F41.9 Anxiety disorder, unspecified (principal); R07.9 Chest pain, unspecified; E11.22 Type 2 diabetes mellitus with diabetic chronic kidney disease; I13.0 Hypertensive heart and chronic kidney disease with heart failure and stage 1 through stage 4 chronic kidney disease, or unspecified chronic kidney disease; N18.9 Chronic kidney disease, unspecified; I50.9 Heart failure, unspecified; E78.5 Hyperlipidemia, unspecified; Z79.4 Long term (current) use of insulin; Z79.82 Long term (current) use of aspirin; Z79.02 Long term (current) use of antithrombotics/antiplatelets; Z79.899 Other long term (current) drug therapy
CPT/HCPCS: 36415; 71045; 80048; 80076; 83735; 83880; 84484; 85025; 93005; 99284; 99285

== ENCOUNTER → 2021-04-28 10:37 | Outpatient (BNVA) | payer MEDICARE, SELFPAY | PROVIDERS: PCP Internal Medicine; Visit Provider Nurse Practitioner Gerontology | DX: E11.21 Type 2 diabetes mellitus with diabetic nephropathy (principal); E11.319 Type 2 diabetes mellitus with unspecified diabetic retinopathy without macular edema; E11.22 Type 2 diabetes mellitus with diabetic chronic kidney disease; I12.9 Hypertensive chronic kidney disease with stage 1 through stage 4 chronic kidney disease, or unspecified chronic kidney disease; N18.9 Chronic kidney disease, unspecified; E78.5 Hyperlipidemia, unspecified; E66.9 Obesity, unspecified; G62.9 Polyneuropathy, unspecified; Z79.4 Long term (current) use of insulin; Z68.34 Body mass index [BMI] 34.0-34.9, adult | CPT/HCPCS: 82947; 83036; 99212 ==

== ENCOUNTER → 2021-06-18 11:41 | Outpatient (BNVA) | payer MEDICARE, SELFPAY | PROVIDERS: PCP Internal Medicine; Visit Provider Registered Nurse Diabetes Educator | CPT/HCPCS: Q3014 ==

== ENCOUNTER 2021-06-29 08:27 | Outpatient (REF) | payer MEDICARE, SELFPAY ==
[2021-06-29 09:39] LABS: Alanine Aminotransferase 70 U/L (0-31); Albumin Level 3.8 g/dL (3.5-5.0); Alkaline Phosphatase 245 U/L (39-117); Anion Gap 14 (12-20); Aspartate Amino Transferase 54 U/L (5-31); Bilirubin Total 0.7 mg/dL (0.0-1.0); Blood Urea Nitrogen 25 mg/dL (9-16); Calcium 9.5 mg/dL (8.4-10.2); Carbon Dioxide 24 mmol/L (22-29); Chloride 106 mmol/L (96-108); Cholesterol 133 mg/dL; Estimated Glomerular Filt Rate 28; Glucose Fasting 384 mg/dL (60-99); HDL Cholesterol 41 mg/dL; LDL Cholesterol Calculated 68 mg/dl; Potassium 5.1 mmol/L (3.3-5.1); Sodium 139 mmol/L (135-145); Total Protein 6.9 g/dL (6.5-8.0); Triglycerides 121 mg/dL
[2021-06-29 16:23] LABS: Creatinine Urine 32.33 mg/dL
[2021-07-01 04:06] LABS: LDL Cholesterol Direct 63 mg/dL (<100)
== END 2021-06-29 08:28 | disposition home or self-care (01) ==
LOC: HO.LAB 08:27
PROVIDERS: PCP Internal Medicine; Visit Provider Nurse Practitioner Gerontology
DX: E11.319 Type 2 diabetes mellitus with unspecified diabetic retinopathy without macular edema (principal)
CPT/HCPCS: 36415; 80053; 80061; 82043; 83721

== ENCOUNTER 2021-06-30 08:59 | Outpatient (REF) | payer MEDICARE, SELFPAY ==
[2021-06-30 10:17] LABS: Hematocrit 30.7 % (37.0-47.0); Hemoglobin 9.9 g/dl (12.0-16.0); Mean Corpuscular HGB Conc 32.2 g/dl (31.0-35.0); Mean Corpuscular Hemoglobin 27.3 pg (27.0-33.0); Mean Corpuscular Volume 84.8 fL (80.0-98.0); Mean Platelet Volume 10.7 fL (9.4-12.3); Platelet Count 211 X10*3/uL (160-400); Red Blood Count 3.62 X10*6/uL (4.20-5.50); Red Cell Distribution Width 14.4 % (11.0-16.0); White Blood Count 6.1 X10*3/uL (4.8-10.8)
[2021-06-30 11:02] LABS: Appearance Urine HAZY; Color Urine YELLOW; Glucose Urine UA >=1000 MG/DL (NEG); Leukocyte Esterase Urine NEG (NEG); Nitrite Urine NEG (NEG); Urine Blood NEG (NEG); Urine Ketones NEG (NEG); Urine Protein NEG (NEG-TRACE)
[2021-06-30 11:23] LABS: Squamous Epithelial Cell Urine 3+ /LPF
[2021-06-30 12:34] LABS: Creatinine Urine 40.35 mg/dL; Microalbum/Creatinine Ratio Ur 168.5 ug/mg cr; Protein/Creatinine Ratio, Ur 0.35 (<0.2); Total Protein Urine Random 14 mg/dL (<12)
[2021-06-30 13:00] LABS: Albumin Level 3.7 g/dL (3.5-5.0); Anion Gap 13 (12-20); Carbon Dioxide 25 mmol/L (22-29); Chloride 108 mmol/L (96-108); Estimated Glomerular Filt Rate 30; Magnesium 2.1 mg/dL (1.6-2.6); Phosphorus 3.7 mg/dL (2.7-4.5); Potassium 4.8 mmol/L (3.3-5.1); Sodium 141 mmol/L (135-145)
[2021-06-30 13:20] LABS: Vitamin D 25-OH Total 70.2 ng/mL (>30)
[2021-06-30 15:36] LABS: Blood Urea Nitrogen 27 mg/dL (9-16); Calcium 9.6 mg/dL (8.4-10.2)
[2021-07-01 17:01] LABS: Calcium (PTHI) 9.3 mg/dL (8.6-10.4); PTHI 126 pg/mL (14-64)
== END 2021-06-30 09:00 | disposition home or self-care (01) ==
LOC: HO.LAB 08:59
PROVIDERS: PCP Internal Medicine; Visit Provider Internal Medicine Nephrology
DX: N18.32 Chronic kidney disease, stage 3b (principal)
CPT/HCPCS: 36415; 80051; 81001; 82040; 82043; 82306; 82310; 82565; 83735; 83970; 84100; 84156; 84520; 85027; 87086

== ENCOUNTER → 2021-07-02 12:46 | Outpatient (BNVA) | payer MEDICARE, SELFPAY | PROVIDERS: PCP Internal Medicine; Visit Provider Registered Nurse Diabetes Educator | DX: E11.21 Type 2 diabetes mellitus with diabetic nephropathy (principal) | CPT/HCPCS: 99211 ==

== ENCOUNTER 2021-07-28 15:11 | Outpatient (REF) | payer MEDICARE, SELFPAY ==
--- NOTE | ~2021-07-28 | XR_ITS ---
EXAMINATION: XR FOOT, LEFT CLINICAL INFORMATION: Pain in left foot COMPARISON: Radiographs of the left foot 03/13/2020 TECHNIQUE: AP, lateral, and oblique views of the left foot. FINDINGS: Best visualized on oblique radiograph, there is a transversely oriented fracture at the neck of the proximal phalanx of the first toe with lucency along the lateral plantar aspect of the distal fragment. No other fractures identified. There is mild degenerative change of the midfoot with more pronounced degenerative change at the second tarsometatarsal joint. There is enthesopathy at the Achilles tendon insertion. Soft tissues are unremarkable. XR/XR foot LT min 3V IMPRESSION: Relatively transversely oriented fracture at the neck of the proximal phalanx of the first toe with some lucency along the plantar lateral margin of the distal fragments. Question whether this may represent a subacute or old injury.
== END 2021-07-28 15:12 | disposition home or self-care (01) ==
LOC: HO.XRAY 15:11
PROVIDERS: PCP Internal Medicine; Visit Provider Internal Medicine
DX: M79.672 Pain in left foot (principal)
CPT/HCPCS: 73630

== ENCOUNTER → 2021-08-05 08:57 | Outpatient (BNVA) | payer MEDICARE, SELFPAY | PROVIDERS: PCP Internal Medicine; Visit Provider Nurse Practitioner Gerontology | DX: E11.319 Type 2 diabetes mellitus with unspecified diabetic retinopathy without macular edema (principal); E11.21 Type 2 diabetes mellitus with diabetic nephropathy; E11.22 Type 2 diabetes mellitus with diabetic chronic kidney disease; I12.9 Hypertensive chronic kidney disease with stage 1 through stage 4 chronic kidney disease, or unspecified chronic kidney disease; N18.9 Chronic kidney disease, unspecified; E78.5 Hyperlipidemia, unspecified; E66.9 Obesity, unspecified; G62.9 Polyneuropathy, unspecified; R79.89 Other specified abnormal findings of blood chemistry; Z79.4 Long term (current) use of insulin; Z68.34 Body mass index [BMI] 34.0-34.9, adult | CPT/HCPCS: 82947; 83036; 99212 ==

== ENCOUNTER 2021-08-12 08:49 | Outpatient (REF) | payer MEDICARE, SELFPAY ==
--- NOTE | ~2021-08-12 | XR_ITS ---
EXAMINATION: XR WRIST, RIGHT CLINICAL INFORMATION: Pain. COMPARISON: None TECHNIQUE: PA, lateral, and oblique views of the right wrist are submitted, together with a dedicated navicular view. FINDINGS: There is bony demineralization. There is a mild ulnar positive variance. No fracture or dislocation is seen. The proximal and distal carpal rows are intact. The soft tissue planes are unremarkable, without foreign body. XR/XR wrist RT min 3V IMPRESSION: 1. No fracture, dislocation or unusual degenerative change is seen. 2. There is bony demineralization.
== END 2021-08-12 08:50 | disposition home or self-care (01) ==
LOC: HO.XRAY 08:49
PROVIDERS: PCP Internal Medicine; Visit Provider Internal Medicine
DX: M25.531 Pain in right wrist (principal)
CPT/HCPCS: 73110

== ENCOUNTER → 2021-08-31 12:52 | Outpatient (BNVA) | payer OTHER, SELFPAY | PROVIDERS: PCP Internal Medicine; Visit Provider Registered Nurse Diabetes Educator | DX: E11.8 Type 2 diabetes mellitus with unspecified complications (principal) | CPT/HCPCS: 95250; 99211 ==

== ENCOUNTER → 2021-09-14 07:55 | Outpatient (BNVA) | payer OTHER, SELFPAY | PROVIDERS: PCP Internal Medicine; Visit Provider Nurse Practitioner Gerontology | DX: E11.319 Type 2 diabetes mellitus with unspecified diabetic retinopathy without macular edema (principal); E11.21 Type 2 diabetes mellitus with diabetic nephropathy; E11.22 Type 2 diabetes mellitus with diabetic chronic kidney disease; I12.9 Hypertensive chronic kidney disease with stage 1 through stage 4 chronic kidney disease, or unspecified chronic kidney disease; N18.9 Chronic kidney disease, unspecified; E78.5 Hyperlipidemia, unspecified; E66.9 Obesity, unspecified; R79.89 Other specified abnormal findings of blood chemistry; Z79.4 Long term (current) use of insulin; G62.9 Polyneuropathy, unspecified; Z68.34 Body mass index [BMI] 34.0-34.9, adult | CPT/HCPCS: 82947; 99212 ==

== ENCOUNTER → 2021-09-23 09:53 | Outpatient (BNVA) | payer MEDICARE, SELFPAY | PROVIDERS: PCP Internal Medicine; Visit Provider Hospitalist | DX: J45.40 Moderate persistent asthma, uncomplicated (principal); J98.4 Other disorders of lung; R06.00 Dyspnea, unspecified; G47.33 Obstructive sleep apnea (adult) (pediatric); Z99.89 Dependence on other enabling machines and devices | CPT/HCPCS: 99212 ==

== ENCOUNTER 2021-10-07 09:20 | Outpatient (REF) | payer OTHER, SELFPAY ==
[2021-10-07 11:10] LABS: MANUAL DIFF FLAG NO
[2021-10-07 11:39] LABS: Basophils Absolute Auto 0.1 X10*3/uL (0.0-0.2); Basophils Percent Auto 0.6 % (0-2); Eosinophils Absolute Auto 0.2 X10*3/uL (0.0-0.4); Eosinophils Percent Auto 2.9 % (0-4); Hematocrit 32.5 % (37.0-47.0); Hemoglobin 10.8 g/dl (12.0-16.0); Imm Gran Abs Auto 0.05 X10*3/uL (0.00-0.03); Imm Gran Pct Auto 0.6 % (0.0-0.4); Lymphocytes Absolute Auto 1.5 X10*3/uL (1.2-4.9); Lymphocytes Percent Auto 18.8 % (20-40); Mean Corpuscular HGB Conc 33.2 g/dl (31.0-35.0); Mean Corpuscular Volume 84.2 fL (80.0-98.0); Mean Platelet Volume 9.4 fL (9.4-12.3); Monocytes Absolute Auto 0.8 X10*3/uL (0.1-1.2); Monocytes Percent Auto 9.4 % (2-11); Neutrophils Absolute Auto 5.6 x10*3/uL (2.0-8.3); Neutrophils Percent Auto 67.7 % (45-73); Platelet Count 260 X10*3/uL (160-400); Red Blood Count 3.86 X10*6/uL (4.20-5.50); Red Cell Distribution Width 13.7 % (11.0-16.0); White Blood Count 8.2 X10*3/uL (4.8-10.8)
[2021-10-07 12:11] LABS: Alanine Aminotransferase 90 U/L (0-31); Albumin Level 3.8 g/dL (3.5-5.0); Alkaline Phosphatase 226 U/L (39-117); Anion Gap 14 (12-20); Aspartate Amino Transferase 63 U/L (5-31); Bilirubin Total 0.5 mg/dL (0.0-1.0); Blood Urea Nitrogen 22 mg/dL (9-16); Calcium 9.9 mg/dL (8.4-10.2); Carbon Dioxide 33 mmol/L (22-29); Chloride 96 mmol/L (96-108); Estimated Glomerular Filt Rate 30; Glucose Random 141 mg/dL (60-115); Iron 61 mcg/dL (30-160); Percent Iron Saturation 19 % (15-50); Potassium 4.4 mmol/L (3.3-5.1); Sodium 139 mmol/L (135-145); Total Iron Binding Capacity 321 mcg/dL (228-428); Total Protein 7.1 g/dL (6.5-8.0); Unsaturated Iron Binding 260 ug/dL
[2021-10-07 12:25] LABS: Ferritin 141 ng/mL (10-250)
[2021-10-07 13:15] LABS: Folate > 20.0 ng/mL (> or = 4.0); Vitamin B12 1472 pg/mL (200-900)
[2021-10-10 13:56] LABS: Anti Nuclear Antibody Screen NEGATIVE (NEGATIVE)
== END 2021-10-07 09:21 | disposition home or self-care (01) ==
LOC: HO.LAB 09:20
PROVIDERS: PCP Internal Medicine; Referring Provider Internal Medicine; Visit Provider Physician Assistant
DX: R10.11 Right upper quadrant pain (principal); K52.9 Noninfective gastroenteritis and colitis, unspecified; R74.01 Elevation of levels of liver transaminase levels; R79.89 Other specified abnormal findings of blood chemistry; D64.9 Anemia, unspecified; K21.9 Gastro-esophageal reflux disease without esophagitis; K59.09 Other constipation
CPT/HCPCS: 36415; 80053; 82607; 82728; 82746; 83540; 85025; 86038; 86039; 99202; 99212

== ENCOUNTER 2021-11-05 08:06 | Outpatient (REF) | payer OTHER, SELFPAY ==
[2021-11-05 08:28] LABS: MANUAL DIFF FLAG NO
[2021-11-05 08:46] LABS: Basophils Absolute Auto 0.1 X10*3/uL (0.0-0.2); Basophils Percent Auto 0.7 % (0-2); Eosinophils Absolute Auto 0.2 X10*3/uL (0.0-0.4); Eosinophils Percent Auto 3.3 % (0-4); Hematocrit 31.4 % (37.0-47.0); Hemoglobin 10.5 g/dl (12.0-16.0); Imm Gran Abs Auto 0.12 X10*3/uL (0.00-0.03); Imm Gran Pct Auto 1.6 % (0.0-0.4); Lymphocytes Absolute Auto 1.3 X10*3/uL (1.2-4.9); Lymphocytes Percent Auto 17.4 % (20-40); Mean Corpuscular HGB Conc 33.4 g/dl (31.0-35.0); Mean Corpuscular Hemoglobin 28.4 pg (27.0-33.0); Mean Corpuscular Volume 84.9 fL (80.0-98.0); Mean Platelet Volume 9.5 fL (9.4-12.3); Monocytes Absolute Auto 0.5 X10*3/uL (0.1-1.2); Monocytes Percent Auto 6.3 % (2-11); Neutrophils Absolute Auto 5.2 x10*3/uL (2.0-8.3); Neutrophils Percent Auto 70.7 % (45-73); Platelet Count 242 X10*3/uL (160-400); Red Cell Distribution Width 14.4 % (11.0-16.0); White Blood Count 7.3 X10*3/uL (4.8-10.8)
[2021-11-05 09:21] LABS: B Type Natriuretic Peptide 35 pg/mL (<100)
[2021-11-05 09:23] LABS: Anion Gap 13 (12-20); Blood Urea Nitrogen 26 mg/dL (9-16); Carbon Dioxide 34 mmol/L (22-29); Chloride 99 mmol/L (96-108); Estimated Glomerular Filt Rate 26; Magnesium 2.1 mg/dL (1.6-2.6); Phosphorus 3.6 mg/dL (2.7-4.5); Potassium 4.1 mmol/L (3.3-5.1); Sodium 142 mmol/L (135-145)
[2021-11-05 09:40] LABS: Appearance Urine CLEAR; Color Urine YELLOW; Glucose Urine UA >=1000 MG/DL (NEG); Leukocyte Esterase Urine NEG (NEG); Nitrite Urine NEG (NEG); PH 7.5 (5.0-8.0); Specific Gravity - Urine <= 1.005 (1.005-1.025); Urine Blood NEG (NEG); Urine Ketones NEG (NEG); Urine Protein NEG (NEG-TRACE)
[2021-11-05 09:47] LABS: Vitamin D 25-OH Total 91.8 ng/mL (>30)
[2021-11-05 10:01] LABS: RBC Urine 0 /HPF (0); Squamous Epithelial Cell Urine 1+ /LPF; WBC Urine 0 /HPF (0-4)
[2021-11-05 11:39] LABS: Creatinine Urine 46.98 mg/dL; Microalbum/Creatinine Ratio Ur 97.9 ug/mg cr; Protein/Creatinine Ratio, Ur 0.21 (<0.2); Total Protein Urine Random 10 mg/dL (<12)
[2021-11-08 17:02] LABS: PTHI 76 pg/mL (16-77)
== END 2021-11-05 08:07 | disposition home or self-care (01) ==
LOC: HO.LAB 08:06
PROVIDERS: Absent Provider Internal Medicine Nephrology; PCP Internal Medicine; Visit Provider Internal Medicine Cardiovascular Disease
DX: I50.9 Heart failure, unspecified (principal); N18.4 Chronic kidney disease, stage 4 (severe); E11.22 Type 2 diabetes mellitus with diabetic chronic kidney disease; I73.9 Peripheral vascular disease, unspecified; R80.9 Proteinuria, unspecified; N25.0 Renal osteodystrophy
CPT/HCPCS: 36415; 80051; 81001; 82040; 82043; 82306; 82310; 82565; 83735; 83880; 83970; 84100; 84156; 84520; 85025; 87086

== ENCOUNTER → 2021-11-16 07:58 | Outpatient (BNVA) | payer OTHER, SELFPAY | PROVIDERS: PCP Internal Medicine; Visit Provider Nurse Practitioner Gerontology | DX: E11.319 Type 2 diabetes mellitus with unspecified diabetic retinopathy without macular edema (principal); E11.40 Type 2 diabetes mellitus with diabetic neuropathy, unspecified; E11.22 Type 2 diabetes mellitus with diabetic chronic kidney disease; I12.9 Hypertensive chronic kidney disease with stage 1 through stage 4 chronic kidney disease, or unspecified chronic kidney disease; N18.9 Chronic kidney disease, unspecified; E78.5 Hyperlipidemia, unspecified; E66.9 Obesity, unspecified; Z79.4 Long term (current) use of insulin | CPT/HCPCS: Q3014 ==

== ENCOUNTER 2021-12-01 07:55 | Outpatient (REF) | payer OTHER, SELFPAY ==
--- NOTE | ~2021-12-01 | US_ITS ---
EXAMINATION: US COMPLETE ABDOMEN WITH LIVER ELASTOGRAPHY CLINICAL INFORMATION: GERD. COMPARISON: None. TECHNIQUE: Real-time imaging of the abdominal viscera. Noninvasive ultrasound liver fibrosis assessment is performed using Mya ElastPQ point quantification shear wave elastography (2D-SWE) with a C5-2 MHz transducer. Multiple elastography samples are obtained. FINDINGS: PANCREAS: The visualized pancreatic head and body are normal in appearance. The remainder of the pancreas is obscured from visualization by the overlying bowel gas. ABDOMINAL AORTA: The proximal, middle, and distal aortic segments are normal in caliber. INFERIOR VENA CAVA: Visualized portions are normal. LIVER: The liver demonstrates normal size, contour and course increased echogenicity. No focal lesion or intrahepatic biliary duct dilatation. The right lobe measures 17.5 cm in length. The left lobe measures 14.2 cm in length. Portal flow is up Shear wave liver elastography median stiffness is 2.61 m/s (reference: normal median stiffness is 1.3 m/s or less). IQR/median stiffness to assess sampling precision is 0.06 (reference: good quality data set is IQR/median stiffness of 0.15 or less). GALLBLADDER: Normal. The gallbladder is physiologically distended without evidence of stones, sludge, polyps, wall thickening or pericholecystic fluid. COMMON BILE DUCT: Normal in caliber measuring 0.8 cm in diameter. RIGHT KIDNEY: No hydronephrosis. No renal calculi or focal parenchymal lesions. The kidney measures 10.5 cm in maximum dimension. There is an anechoic cyst versus focal caliectasis in midpole laterally measuring 0.5 x 0.4 x 0.5 cm. LEFT KIDNEY: Normal. No hydronephrosis. No renal calculi or focal parenchymal lesions. The kidney measures 10.5 cm in maximum dimension. SPLEEN: Normal. The spleen measures 13.4 cm in maximum dimension. FREE FLUID: None. US/US abdomen comp w elastography IMPRESSION: 1. Coarse echogenic liver. No focal lesion. 2. Borderline spleen. 3. Anechoic cyst versus focal caliectasis in midpole right kidney . 4. Liver elastography: Median liver stiffness measures 2.61 m/s corresponding to [facility]. REFERENCE: Society of Radiologists in Ultrasound Liver Stiffness Thresholds (2020): LIVER STIFFNESS THRESHOLDS: *Liver Stiffness equal or less than 1.3 m/s: High probability of being normal. *Liver Stiffness less than 1.7 m/s: In the absence of other known clinical signs, rules out compensated advanced chronic liver disease. *Liver Stiffness 1.7-2.1 m/s: Suggestive of compensated advanced chronic liver disease but need further test for confirmation. *Liver Stiffness over 2.1 m/s: Rules in compensated advanced chronic liver disease. *Liver Stiffness over 2.4 m/s: Suggestive of clinically significant portal hypertension. QUALITY OF DATA SET: *IQR/Median value equal or less than 0.15 implies a quality data set. *IQR/Median value over 0.15 implies a poor quality data set. SIGNIFICANT CHANGE FROM PRIOR EXAM: Significant change if liver stiffness measurement is 10% or greater from prior exam. OTHER CONSIDERATIONS: The stage of liver fibrosis may be overestimated in the setting of acute hepatitis, liver inflammation, elevated liver function tests, hepatic vascular congestion, obstructive cholestasis, non-fasting state, and infiltrative diseases such as amyloidosis and lymphoma. In some patients with NAFLD, the liver stiffness thresholds for compensated advanced chronic liver disease may be lower. In causes other than viral hepatitis and NAFLD, liver stiffness thresholds are not well established.
== END 2021-12-01 07:56 | disposition home or self-care (01) ==
LOC: HO.US 07:55
PROVIDERS: Visit Provider Physician Assistant
DX: R10.11 Right upper quadrant pain (principal); E66.9 Obesity, unspecified; R79.89 Other specified abnormal findings of blood chemistry
CPT/HCPCS: 76705; 76981

== ENCOUNTER 2022-01-13 13:34 | Emergency (ER) | payer OTHER, SELFPAY ==
--- NOTE | ~2022-01-13 | CT_ITS ---
EXAMINATION: CT ABDOMEN AND PELVIS WITHOUT CONTRAST CLINICAL INFORMATION: Liver pain COMPARISON: CT abdomen and pelvis 07/05/2012, abdominal ultrasound 12/01/2021 TECHNIQUE: Multidetector volumetric imaging was performed from the superior aspect of the liver through the pubic symphysis. Sagittal and coronal reformatted images were obtained on the technologist's workstation. This CT examination was performed using dose optimization techniques as appropriate, variously including the following: *Automated exposure control *Adjustment of mA and/or kV according to patient size (this includes techniques or standardized protocols for targeted exams where dose is matched to indication/reason for exam; i.e. extremities or head) *Use of iterative reconstruction technique DLP: 594 mGy-cm FINDINGS: LUNG BASES: Minimal bibasilar atelectasis. Pacer leads terminating in the right atrium and right ventricle. LIVER, GALLBLADDER, AND BILIARY TREE: Liver is normal in size of the right lobe measuring 15.3 cm in craniocaudal length. Mild hepatic hypoattenuation compatible with mild steatosis. Slightly lobulated/nodular liver surface contour. No liver lesion. No biliary ductal dilation. Status post cholecystectomy. Surgical clips in the gallbladder fossa. PANCREAS: Unremarkable. SPLEEN: Unremarkable. ADRENAL GLANDS: Unremarkable. KIDNEYS AND URETERS: The kidneys are normal in size, shape, and attenuation. No hydronephrosis, hydroureter, or definite calculi seen. Linear calcifications in the corticomedullary junction of both kidneys, are likely vascular calcifications. No perinephric stranding. BLADDER: Unremarkable. GASTROINTESTINAL TRACT: Single sigmoid diverticulum. No evidence of acute diverticulitis. No dilated bowel loops. No bowel wall thickening. Normal appendix. No ascites or free air. ABDOMINAL WALL: Fat-containing left inguinal hernia. LYMPH NODES: No lymphadenopathy. VASCULAR: Moderate vascular calcifications. Normal caliber abdominal aorta. PELVIC VISCERA: Status post hysterectomy. No free pelvic fluid. OSSEOUS STRUCTURES: No acute fracture or suspicious osseous lesion. CT/CT abdomen pelvis wo con IMPRESSION: 1. Normal hepatic size with mild hepatic steatosis and subtly nodular liver surface contour raising concern for underlying fibrosis/cirrhosis. 2. No acute intra-abdominal process.
[2022-01-13 13:56] VITALS: BP 142/43; PULSE 72; RESP 18; O2SAT 97; BMI 34.2
[2022-01-13 14:38] LABS: Basophils Percent Auto 0.6 % (0-2); Eosinophils Absolute Auto 0.3 X10*3/uL (0.0-0.4); Eosinophils Percent Auto 3.6 % (0-4); Hematocrit 28.9 % (37.0-47.0); Hemoglobin 9.9 g/dl (12.0-16.0); Imm Gran Abs Auto 0.06 X10*3/uL (0.00-0.03); Imm Gran Pct Auto 0.9 % (0.0-0.4); Lymphocytes Absolute Auto 1.5 X10*3/uL (1.2-4.9); Lymphocytes Percent Auto 21.5 % (20-40); MANUAL DIFF FLAG NO; Mean Corpuscular HGB Conc 34.3 g/dl (31.0-35.0); Mean Corpuscular Hemoglobin 28.6 pg (27.0-33.0); Mean Corpuscular Volume 83.5 fL (80.0-98.0); Mean Platelet Volume 8.8 fL (9.4-12.3); Monocytes Absolute Auto 0.5 X10*3/uL (0.1-1.2); Monocytes Percent Auto 7.7 % (2-11); Neutrophils Absolute Auto 4.6 x10*3/uL (2.0-8.3); Neutrophils Percent Auto 65.7 % (45-73); Platelet Count 206 X10*3/uL (160-400); Red Blood Count 3.46 X10*6/uL (4.20-5.50); Red Cell Distribution Width 13.8 % (11.0-16.0)
[2022-01-13 14:56] LABS: Anion Gap 17 (12-20); Blood Urea Nitrogen 31 mg/dL (9-16); Calcium 8.9 mg/dL (8.4-10.2); Carbon Dioxide 28 mmol/L (22-29); Chloride 101 mmol/L (96-108); Creatinine Clr Calc Pharmacy 26.1; Estimated Glomerular Filt Rate 30; Glucose Random 237 mg/dL (60-115); Potassium 3.3 mmol/L (3.3-5.1); Sodium 143 mmol/L (135-145)
--- NOTE | 2022-01-13 18:41 | ED.GENADULT ---
HPI - General Adult General Chief complaint: General Medical Stated complaint: abnormal labs Time Seen by Provider: 01/13/22 18:40 History of Present Illness HPI narrative: Patient is 66 years old sent in for evaluation of possible abnormalities in her liver. Patient has a history of breast cancer status post surgery and treatment at [facility]. Has baseline elevated LFTs. Presented today requesting further evaluation of the right upper quadrant abdominal pain. Patient had an ultrasound done of the liver back in November. She claims that this pain is continuation of the same pain. It has been ongoing for 2 months. There is no fever no chills. There is no change in diet. There is no nausea no vomiting. No coughing or congestion or upper respiratory symptoms. No change in color of stool. No new weaknesses. No chest pain shortness of breath. No diaphoresis. Patient is from home. Symptoms not affected by food. Related Data Home Medications Medication Instructions Recorded Confirmed anastrozole 1 mg tablet 1 tab PO DAILY 03/14/20 10/07/21 aspirin 81 mg tablet,delayed 1 tab PO DAILY 03/14/20 11/16/21 release cyanocobalamin (vitamin B-12) 1 tab PO DAILY 03/14/20 10/07/21 1,000 mcg tablet omeprazole 20 mg capsule,delayed 1 cap PO DAILY 03/14/20 10/07/21 release oxycodone-acetaminophen 5 mg-325 1 tab PO QID PRN pain 03/14/20 10/07/21 mg tablet docusate sodium 100 mg capsule 100 mg PO BID 04/21/20 10/07/21 atorvastatin 40 mg tablet 40 mg PO BEDTIME 03/23/21 11/16/21 carvedilol 6.25 mg tablet 6.25 mg PO BID 03/23/21 11/16/21 folic acid 1 mg tablet 1 mg PO DAILY 03/23/21 10/07/21 sertraline 50 mg tablet 50 mg PO QAM 03/23/21 10/07/21 torsemide 20 mg tablet 20 mg PO DAILY 03/23/21 10/07/21 lancets 33 gauge (TRUEplus Lancets) #100 ea 04/28/21 04/28/21 cholecalciferol (vitamin D3) 125 125 mcg PO DAILY 09/14/21 11/16/21 mcg (5,000 unit) tablet losartan 25 mg tablet 25 mg PO DAILY 09/14/21 11/16/21 albuterol sulfate 2.5 mg/3 mL mg inhalation 09/23/21 10/07/21 (0.083 %) solution for nebulization dapagliflozin 10 mg tablet 10 mg PO DAILY 09/23/21 11/16/21 ([facility]) doxepin 10 mg capsule 10 mg PO BEDTIME PRN insomnia 09/23/21 10/07/21 mirtazapine 15 mg tablet 15 mg PO BEDTIME 09/23/21 10/07/21 ascorbate calcium (vitamin C) 500 500 mg PO DAILY 10/07/21 11/16/21 mg tablet clotrimazole 1 % topical cream appl topical 10/07/21 10/07/21 gabapentin 400 mg capsule 400 mg PO TID 10/07/21 11/16/21 montelukast 10 mg tablet 10 mg PO BEDTIME 10/07/21 10/07/21 pen needle, diabetic 29 gauge x #100 ea 10/07/21 11/16/21 1/2 (UltiCare Pen Needle) Previous Rx's Medication Instructions Recorded amlodipine 10 mg tablet (Norvasc) 10 mg PO DAILY #30 tabs 03/17/20 pen needle, diabetic 32 gauge x #200 ea 08/31/21 insulin degludec 200 unit/mL (3 80 unit (0.4 mL) subcut DAILY 30 09/01/21 mL) subcutaneous pen ( #12 mL FlexTouch U-200 insulin) blood sugar diagnostic (FreeStyle #400 ea 09/14/21 Lite Strips) lancets 28 gauge (FreeStyle #400 ea 09/14/21 Lancets) liraglutide 0.6 mg/0.1 mL (18 mg/3 1.8 mg (0.3 mL) subcut Q24H #9 mL 09/14/21 mL) subcutaneous pen injector (Victoza 3-Huey) pen needle, diabetic 32 gauge x #250 ea 09/14/21 (BD Ultra-Fine Carolyn Pen Needle) azelastine 205.5 mcg (0.15 %) 2 spray intranasal BID #30 mL 09/16/21 nasal spray Trelegy Ellipta 200 mcg-62.5 1 ea inhalation DAILY #60 ea 09/23/21 mcg-25 mcg powder for inhalation (hhwthsyckyl-npcejoiiq-zhntoser) albuterol sulfate 90 mcg/actuation 2 puff PO Q6H PRN wheezing 30 days 09/23/21 aerosol inhaler (Ventolin HFA) #8.5 grams insulin aspart U-100 100 unit/mL See Rx Instructions subcut 11/16/21 (3 mL) subcutaneous pen (Novolog .COMPLEX 30 days #45 mL Flexpen U-100 Insulin aspart) Allergies Allergy/AdvReac Type Severity Reaction Status Date / Time tramadol [TRAMADOL] Allergy Severe THROAT, Verified 11/16/21 08:25 LIPS SWELLING, latex [LATEX] Allergy Intermediate RASH Verified 11/16/21 08:25 IV plastic insert Allergy Severe Hives and Uncoded 11/16/21 08:25 Itch Review of Systems Review of Systems: No fever no chills no cough no congestion or upper respiratory symptoms Yes all other systems are reviewed and are negative PMFSH Past Medical History Attestation statement: The following information was validated with the patient. 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 Obesity (BMI 30-39.9) Obstructive sleep apnea on CPAP Other and unspecified hyperlipidemia Type 2 diabetes mellitus with unspecified complications Surgical History History of 3 sections History of cholecystectomy History of esophagogastroduodenoscopy (EGD) History of permanent cardiac pacemaker placement History of shoulder surgery History of total abdominal hysterectomy Hx of colonoscopy Family History Family History Father Diabetes Brother Diabetes Sister Diabetes Mother No known problems Social History Social History Household Members: Spouse Housing: Apartment Do you presently have visiting nurse or other home services: No Alcohol intake: never Patient Tobacco Use Status: Former Tobacco user Tobacco use type: Cigarette Years Smoked: 12 years Advance Directives: No Advance Directives Information Provided: No service: No Current occupational status: disabled Physical Exam ED Vital Signs: Vital Signs - 24 hr 01/13/22 13:56 01/13/22 19:27 Pulse Rate 72 69 Respiratory Rate 18 15 Blood Pressure 142/43 H 146/50 H Pulse Oximetry 97 95 Oxygen Delivery Method Room Air Room Air BMI result Body Mass Index 34.2 Appearance: Alert. Oriented X3. No acute distress. Eyes: Pupils equal, round and reactive to light. ENT: Pharynx normal. Neck: Normal inspection. Neck supple. No lymph nodes noted. No crepitus CVS: Normal heart rate and rhythm. Pulses normal. Normal S1 and S2 Respiratory: No respiratory distress. Breath sounds normal. No Wheezing. No rales Abdomen: Soft and nontender. No rigidity. No distention. good BS x4 Skin: Skin warm and dry. Normal skin color. Normal skin turgor. Extremities: No lower extremity edema. Neurovascular intact to all extremities. No Lacerations. No Rash Neuro: Oriented X 3. No motor deficit. No sensory deficit. Moving all extermities. No slurred speech Medical Decision Making MDM Narrative Medical decision making narrative: Patient's CT scan of the abdomen did not show any acute evidence of pancreatitis although the left lipase was elevated over 191. More likely this is a nonspecific finding. Patient's LFTs are baseline. The abdominal pain has been chronic in nature. The finding was discussed with Dr. Mckeon from GI. Agreed patient can be follow up on an outpatient basis. Patient is already on a PPI. Initial liver study was ordered by GI. Dr. Mckeon will refer the patient back to [facility]. Patient is in stable condition. No acute issues tonight. She is in stable condition. Lab Data Result diagrams: 01/13/22 14:34 01/13/22 14:34 Labs: Lab Results 01/13/22 01/13/22 Range/Units 14:34 14:34 WBC 7.0 (4.8-10.8) X10*3/uL RBC 3.46 L (4.20-5.50) X10*6/uL Hgb 9.9 L (12.0-16.0) g/dl Hct 28.9 L (37.0-47.0) % MCV 83.5 (80.0-98.0) fL MCH 28.6 (27.0-33.0) pg MCHC 34.3 (31.0-35.0) g/dl RDW 13.8 (11.0-16.0) % Plt Count 206 (160-400) X10*3/uL MPV 8.8 L (9.4-12.3) fL Immature Gran % (Auto) 0.9 H (0.0-0.4) % Neut % (Auto) 65.7 (45-73) % Lymph % (Auto) 21.5 (20-40) % Converse % (Auto) 7.7 (2-11) % Eos % (Auto) 3.6 (0-4) % Baso % (Auto) 0.6 (0-2) % Lymph # (Auto) 1.5 (1.2-4.9) X10*3/uL Converse # (Auto) 0.5 (0.1-1.2) X10*3/uL Eos # (Auto) 0.3 (0.0-0.4) X10*3/uL Baso # (Auto) 0.0 (0.0-0.2) X10*3/uL Abs Immat Gran (auto) 0.06 H (0.00-0.03) X10*3/uL Absolute Neuts (auto) 4.6 (2.0-8.3) x10*3/uL Absolute Nucleated RBC 0.000 (0.0-0.012) X10*3/uL Nucleated RBC % (auto) 0.0 (0.0-0.2) /100WBC Sodium 143 (135-145) mmol/L Potassium 3.3 (3.3-5.1) mmol/L Chloride 101 (96-108) mmol/L Carbon Dioxide 28 (22-29) mmol/L Anion Gap 17 (12-20) BUN 31 H (9-16) mg/dL Creatinine 1.71 H (0.5-1.4) mg/dL Estim Creat Clear Calc 26.1 Estimated GFR 30 Random Glucose 237 H (60-115) mg/dL Calcium 8.9 D (8.4-10.2) mg/dL Total Bilirubin 0.4 (0.0-1.0) mg/dL Direct Bilirubin 0.2 (0.0-0.5) mg/dL AST 76 H (5-31) U/L ALT 54 H (0-31) U/L Alkaline Phosphatase 187 H (39-117) U/L Total Protein 7.0 (6.5-8.0) g/dL Albumin 3.8 (3.5-5.0) g/dL Lipase 191 H (8-78) U/L Discharge Plan Discharge Clinical Impression: Cirrhosis of liver Patient Disposition: Home, Self-Care Instructions: Cirrhosis (ED) Prescriptions: No Action (DME) pen needle, diabetic 32 gauge x 5/32 needle See Rx Instructions .ROUTE BID Qty: 200 11RF Rx Instructions: Six times a day Tresiba FlexTouch U-200 200 unit/mL (3 mL) insulin pen 80 unit subcut DAILY 30 Days Qty: 12 6RF azelastine 205.5 mcg (0.15 %) spray,non-aerosol 2 spray intranasal BID Qty: 30 11RF anastrozole 1 mg tablet 1 tab PO DAILY cyanocobalamin (vitamin B-12) 1,000 mcg tablet 1 tab PO DAILY aspirin 81 mg tablet,delayed release (DR/EC) 1 tab PO DAILY oxycodone-acetaminophen 5-325 mg tablet 1 tab PO QID PRN (Reason: pain) omeprazole 20 mg capsule,delayed release(DR/EC) 1 cap PO DAILY amlodipine [Norvasc] 10 mg tablet 10 mg PO DAILY Qty: 30 0RF docusate sodium 100 mg capsule 100 mg PO BID (DME) lancets [TRUEplus Lancets] 33 gauge misc See Rx Instructions Not Applicable QID Qty: 100 Rx Instructions: As directed Farxiga 10 mg tablet 10 mg PO DAILY mirtazapine 15 mg tablet 15 mg PO BEDTIME albuterol sulfate 2.5 mg /3 mL (0.083 %) solution for nebulization inhalation doxepin 10 mg capsule 10 mg PO BEDTIME PRN (Reason: insomnia) Trelegy Ellipta 200-62.5-25 mcg blister with device 1 ea inhalation DAILY Qty: 60 12RF albuterol sulfate [Ventolin HFA] 90 mcg/actuation HFA aerosol inhaler 2 puff PO Q6H PRN (Reason: wheezing) 30 Days Qty: 8.5 11RF losartan 25 mg tablet 25 mg PO DAILY cholecalciferol (vitamin D3) 125 mcg (5,000 unit) tablet 125 mcg PO DAILY Victoza 3-Huey 0.6 mg/0.1 mL (18 mg/3 mL) pen injector 1.8 mg subcut Q24H Qty: 9 6RF (DME) pen needle, diabetic [BD Ultra-Fine Carolyn Pen Needle] 32 gauge x 5/32 needle See Rx Instructions .ROUTE .MEDSUPPLY Qty: 250 11RF Rx Instructions: As directed eight times a day (DME) FreeStyle Lite Strips Strip See Rx Instructions .ROUTE .MEDSUPPLY Qty: 400 3RF Rx Instructions: As directed four times a day (DME) lancets [FreeStyle Lancets] 28 gauge misc See Rx Instructions .ROUTE .MEDSUPPLY Qty: 400 3RF Rx Instructions: 4 times a day sertraline 50 mg tablet 50 mg PO QAM carvedilol 6.25 mg tablet 6.25 mg PO BID atorvastatin 40 mg tablet 40 mg PO BEDTIME torsemide 20 mg tablet 20 mg PO DAILY folic acid 1 mg tablet 1 mg PO DAILY ascorbate calcium (vitamin C) 500 mg tablet 500 mg PO DAILY gabapentin 400 mg capsule 400 mg PO TID montelukast 10 mg tablet 10 mg PO BEDTIME (DME) pen needle, diabetic [UltiCare Pen Needle] 29 gauge x 1/2 needle See Rx Instructions .ROUTE .MEDSUPPLY Qty: 100 Rx Instructions: As directed clotrimazole 1 % cream topical insulin aspart U-100 [Novolog Flexpen U-100 Insulin] 100 unit/mL (3 mL) insulin pen See Rx Instructions subcut .COMPLEX 30 Days Qty: 45 6RF Rx Instructions: 24 u small meal, 32u medium meal, 36u large meal, + 2 u for bg over 200, +6 u for bg over 250, + 8 u for bg over 300, 12 unit snack subcut up to five times a day; Referrals: Mario Mckeon MD [Physician] - Print Language: Ghanaian
[2022-01-13 19:11] LABS: Alanine Aminotransferase 54 U/L (0-31); Albumin Level 3.8 g/dL (3.5-5.0); Alkaline Phosphatase 187 U/L (39-117); Aspartate Amino Transferase 76 U/L (5-31); Bilirubin Direct 0.2 mg/dL (0.0-0.5); Bilirubin Total 0.4 mg/dL (0.0-1.0); Lipase 191 U/L (8-78)
[2022-01-13 19:27] VITALS: BP 146/50; PULSE 69; RESP 15; O2SAT 95
[2022-01-13 20:59] VITALS: BP 142/79; PULSE 72; RESP 18; O2SAT 97
== END 2022-01-13 21:03 | disposition home or self-care (01) ==
PROVIDERS: Emergency Provider Emergency Medicine Emergency Medical Services; PCP Internal Medicine
DX: K74.60 Unspecified cirrhosis of liver (principal); R10.11 Right upper quadrant pain; E11.9 Type 2 diabetes mellitus without complications; I10 Essential (primary) hypertension; E78.5 Hyperlipidemia, unspecified; Z79.82 Long term (current) use of aspirin; Z79.02 Long term (current) use of antithrombotics/antiplatelets; Z79.899 Other long term (current) drug therapy; Z79.4 Long term (current) use of insulin; Z87.891 Personal history of nicotine dependence; Z95.0 Presence of cardiac pacemaker
CPT/HCPCS: 36415; 74176; 80048; 80076; 83690; 85025; 99283; 99284

== ENCOUNTER 2022-02-09 07:28 | Day surgery (SDC) | payer OTHER, SELFPAY ==
[2022-02-07 10:08] VITALS: BMI 34.6
--- NOTE | 2022-02-09 08:31 | P.CONAN_ITS ---
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) Dyslipidemia (Acute) Diabetic nephropathy associated with type 2 diabetes mellitus (Acute) Diabetic retinopathy associated with type 2 diabetes mellitus (Acute) Obstructive sleep apnea on CPAP (Acute) Other and unspecified hyperlipidemia (Acute) Essential hypertension (Acute) Type 2 diabetes mellitus with unspecified complications (Acute) Depression (Acute) CKD (chronic kidney disease) (Acute) Peripheral neuropathy (Acute) Diabetes mellitus, type 2 (Acute) Fibula fracture (Acute) Congestive heart failure (Acute) Past Medical History Medical History Anemia Asthma Asthma Breast cancer Chronic restrictive lung disease Depression Diabetes mellitus, type 2 Diabetic nephropathy associated with type 2 diabetes mellitus Diabetic retinopathy associated with type 2 diabetes mellitus Dyslipidemia Dyspnea Essential hypertension 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 Obesity (BMI 30-39.9) Obstructive sleep apnea on CPAP Other and unspecified hyperlipidemia Type 2 diabetes mellitus with unspecified complications Family History Family History Father Diabetes Brother Diabetes Sister Diabetes Mother No known problems Family history of problems with anesthesia: No Surgical History Surgical History History of 3 sections History of cholecystectomy History of esophagogastroduodenoscopy (EGD) History of permanent cardiac pacemaker placement History of shoulder surgery History of total abdominal hysterectomy Hx of colonoscopy History of Problems with Anesthesia: No Social History Social History Household Members: Spouse Housing: Apartment Do you presently have visiting nurse or other home services: No Alcohol intake: never Patient Tobacco Use Status: Former Tobacco user Tobacco use type: Cigarette Years Smoked: 12 years Are you DNR?: Yes Advance Directives: No Advance Directives Information Provided: Yes service: No Current occupational status: disabled Meds Allergies Allergy/AdvReac Type Severity Reaction Status Date / Time tramadol [TRAMADOL] Allergy Severe THROAT, Verified 11/16/21 08:25 LIPS SWELLING, latex [LATEX] Allergy Intermediate RASH Verified 11/16/21 08:25 Active Medications: Current Medications Lactated Ringer's (Lr) 1,000 mls @ 50 mls/hr IVCONT .Q20H SEKOU Home Medications Medication Instructions Recorded Confirmed Last Taken Type anastrozole 1 mg tablet 1 tab PO DAILY 03/14/20 10/07/21 03/13/20 History aspirin 81 mg tablet,delayed 1 tab PO DAILY 03/14/20 11/16/21 03/13/20 History release cyanocobalamin (vitamin B-12) 1 tab PO DAILY 03/14/20 10/07/21 03/13/20 History 1,000 mcg tablet omeprazole 20 mg capsule,delayed 1 cap PO DAILY 03/14/20 10/07/21 03/13/20 History release oxycodone-acetaminophen 5 mg-325 1 tab PO QID PRN pain 03/14/20 10/07/21 03/13/20 History mg tablet docusate sodium 100 mg capsule 100 mg PO BID 04/21/20 10/07/21 Unknown History atorvastatin 40 mg tablet 40 mg PO BEDTIME 03/23/21 11/16/21 Unknown History carvedilol 6.25 mg tablet 6.25 mg PO BID 03/23/21 11/16/21 Unknown History folic acid 1 mg tablet 1 mg PO DAILY 03/23/21 10/07/21 Unknown History sertraline 50 mg tablet 50 mg PO QAM 03/23/21 10/07/21 Unknown History torsemide 20 mg tablet 20 mg PO DAILY 03/23/21 10/07/21 Unknown History lancets 33 gauge (TRUEplus Lancets) #100 ea 04/28/21 04/28/21 Unknown History cholecalciferol (vitamin D3) 125 125 mcg PO DAILY 09/14/21 11/16/21 Unknown History mcg (5,000 unit) tablet losartan 25 mg tablet 25 mg PO DAILY 09/14/21 11/16/21 Unknown History albuterol sulfate 2.5 mg/3 mL mg inhalation 09/23/21 10/07/21 Unknown History (0.083 %) solution for nebulization dapagliflozin 10 mg tablet 10 mg PO DAILY 09/23/21 11/16/21 Unknown History (Farxiga) doxepin 10 mg capsule 10 mg PO BEDTIME PRN insomnia 09/23/21 10/07/21 Unknown History mirtazapine 15 mg tablet 15 mg PO BEDTIME 09/23/21 10/07/21 Unknown History ascorbate calcium (vitamin C) 500 500 mg PO DAILY 10/07/21 11/16/21 Unknown History mg tablet clotrimazole 1 % topical cream appl topical 10/07/21 10/07/21 Unknown History gabapentin 400 mg capsule 400 mg PO TID 10/07/21 11/16/21 Unknown History montelukast 10 mg tablet 10 mg PO BEDTIME 10/07/21 10/07/21 Unknown History pen needle, diabetic 29 gauge x #100 ea 10/07/21 11/16/21 Unknown History 1/2 (UltiCare Pen Needle) Exam Exam Date and Time: February 09, 2022 0831 Height,Weight and Vital Signs: Height 4 ft 9 in Weight 72.575 kg Airway Mallampati Class: II TM Dist: >3cm Neck ROM: Full Denture: Upper and Lower Heart: rrr Lungs: cta Assessment and Plan Assessment Anesthesia Assessment: Anesthesia Plan Discussed and Chart Reviewed Final Anesthetic Review Family History of Problems with Anesthesia: No History of Problems with Anesthesia: No NPO: Yes ASA Class: III Final Preanesthetic Review: No Changes in Pt Med Stat, Meds/Allgs Chart Reviewed and Consent Obtained/Reviewed Patient Risk: Intermediate Procedure Risk: Intermediate Anesthetic Plan Anesthetic Plan: MAC: Disposition: Standard PACU
[2022-02-09 08:40] VITALS: BP 150/41; PULSE 67; RESP 18; TEMP 36.1; O2SAT 96
[2022-02-09 08:43] VITALS: BMI 34.4
[2022-02-09 08:48] VITALS: BMI 34.4
--- NOTE | 2022-02-09 08:52 | MHC.SHP ---
Pre-Procedural Eval Section A Date of Service: 02/09/22 Section B Chief Complaint: anemia Relevant Family History (Specify if Yes): No Relevant Social History: None Present Medications: see Short Stay Collaborative assessment Medical History: Significant History (Anemia Asthma Asthma Breast cancer Chronic restrictive lung disease Depression Diabetes mellitus, type 2 Diabetic nephropathy associated with type 2 diabetes mellitus Diabetic retinopathy associated with type 2 diabetes mellitus Dyslipidemia Dyspnea Essential hypertension GERD (gastroesophageal refl) History of Previous Operations: Relevant previous surgery/procedure and date(s) (History of 3 sections History of cholecystectomy History of esophagogastroduodenoscopy (EGD) History of permanent cardiac pacemaker placement History of shoulder surgery History of total abdominal hysterectomy Hx of colonoscopy) Allergies: Allergies Allergy/AdvReac Type Severity Reaction Status Date / Time tramadol [TRAMADOL] Allergy Severe THROAT, Verified 11/16/21 08:25 LIPS SWELLING, latex [LATEX] Allergy Intermediate RASH Verified 11/16/21 08:25 Review of Systems Sugical H&P ROS: Negative: Constitution, Cardiovascular, Respiratory, Neurological, Psychiatric, Hem-Onc, Allergic/Immunologic, Gastrointestinal, Genitourinary, Musculoskeletal, Integumentary, Endocrine and Eyes/Ears/Nose/Throat Exam Surgical H&P Exam: Normal: HEENT, Normal: Heart, Normal: Lungs, Normal: Extremities, Normal: Abdomen, Normal: Skin and Normal: Neurological Plan Diagnosis/Plan: Unchanged I have reviewed the history and physical and performed a pertinent physical examination on my patient. No changes have occurred unless specified.
--- NOTE | 2022-02-09 08:55 | P.OP_ITS ---
Operative Note Operative Note Date of Service: 02/09/22 Narrative: Operative Information Procedure Description: EGD, Colonoscopy Indication: anemia Anesthesia: MAC FLEXIBLE TRANSORAL UPPER GASTROINTESTINAL ENDOSCOPY AND COLONOSCOPY PROCEDURE NOTE UPPER ENDOSCOPY Consent: Indications for the procedure and potential complications of bleeding, perforation, reaction to medications and missed diagnosis were discussed with the patient and informed consent was obtained. Instrument: Olympus GIF H 190 J mid size upper endoscope Monitoring: Vital signs and clinical assessment, continuous EKG monitoring, Pulse oximetry, Carbon Dioxide monitoring and blood pressure monitoring were done throughout the procedure. Procedure: The patient was placed in the left lateral decubitis position and pre-procedure medications were administered and a bite block was placed. The endoscope was inserted into the mouth and advanced under direct vision to the third part of duodenum. A careful inspection was made as the upper endoscope was withdrawn including a retroflexed examination of the proximal stomach; Findings and interventions are described below. Findings: Larynx:normal Esophagus: GE junction at 36 cm, diaphragm hiatus at 36 cm, slightly erythematous mucosa with dissication in distal esophagus, bx taken Stomach: Granular and erythematous mucosa. Biopsies were obtained. Grade 2 flap valve on retroflexed examination of the cardia. Duodenum: Normal bulb and descending duodenum, bx taken Intervention: Biopsies as noted above COLONOSCOPY Instrument: Olympus variable stiffness pediatric scope 190L Colonoscopy Monitoring: Vital signs and clinical assessment, continuous EKG monitoring, Pulse oximetry, Carbon Dioxide monitoring and blood pressure monitoring were done throughout the procedure. Colon withdrawal time was 12 minutes. Procedure: The patient was placed in the left lateral decubitis position and pre-procedure medications were administered. After a digital rectal examination of the ano-rectum, the video colonoscope was inserted into the rectum and advanced through the colon to the cecum/TI. The colonoscope was slowly withdrawn in a retrograde panoramic fashion and the colon mucosa was carefully examined including a retroflexed view of the rectum. Findings and interventions are described below. Procedure Difficulty:moderate Findings: Terminal Ileum- unable to intubate due to looping Cecum: x 1 sessile polyp removed with cold forceps -- 5-6 mm in size Ascending Colon: few diverticula seen and melanosis coli Transverse Colon - x1 sessile polyps 7-8 mm removed with cold forceps Descending Colon: x 1 sessile polyp 10-12 mm removed with cold snare and x 2 sessile polyps 6-7 mm removed with cold forceps Sigmoid Colon: mild to moderate diverticulosis Rectum: Retroflexion with small to medium sized internal hemorrhoids, grade I Anorectum - normal Colon preparation: Alexander Bowel Preparation Scale Right colon; 2 Transverse colon: 3 Left colon; 3 (0 = Unprepared colon segment with mucosa not seen due to solid stool that cannot be cleared. 1 = Portion of mucosa of the colon segment seen, but other areas of the colon segment not well seen due to staining, residual stool and/or opaque liquid. 2 = Minor amount of residual staining, small fragments of stool and/or opaque liquid, but mucosa of colon segment seen well. 3 = Entire mucosa of colon segment seen well with no residual staining, small fragments of stool or opaque liquid) Impression and Post Procedure Diagnosis: Endoscopy Findings: esophagitis gastritis Colonoscopy Findings: polyps internal hemorrhoids diverticular disease melanosis coli Plan: Await Pathology results Repeat Colonoscopy in 3-5 years or earlier if clinically indicated High fiber diet leaflet avoid straining at stool, epsom salts and sitz bath, anusol supps or cream no obvious cause for anemia, most likely it is anemia of chronic disease from her CKD Above findings were reviewed with the patient and relevant handouts were provided if indicated.
[2022-02-09] MEDS: Lactated Ringers 1,000 ML 50 ML IVCONT (09:15)
[2022-02-09 09:50] LABS: Glucose, Whole Blood 147 mg/dL (60-115)
[2022-02-09 10:03] VITALS: BP 117/44; PULSE 60; RESP 20; TEMP 36.6; O2SAT 93
[2022-02-09 10:18] VITALS: BP 117/44; PULSE 60; RESP 18; TEMP 36.7; O2SAT 93
[2022-02-09 10:18] LABS: Glucose, Whole Blood 91 mg/dL (60-115)
== END 2022-02-09 11:40 | disposition home or self-care (01) ==
PROVIDERS: PCP Internal Medicine; Visit Provider Internal Medicine Gastroenterology
PROC: (CPT 45385; principal; 2022-02-09 09:10)
DX: D64.9 Anemia, unspecified (principal); D12.0 Benign neoplasm of cecum; D12.3 Benign neoplasm of transverse colon; K63.5 Polyp of colon; K57.30 Diverticulosis of large intestine without perforation or abscess without bleeding; K64.0 First degree hemorrhoids; K63.89 Other specified diseases of intestine; K59.00 Constipation, unspecified; R10.11 Right upper quadrant pain; K29.50 Unspecified chronic gastritis without bleeding; K20.80 Other esophagitis without bleeding; K21.9 Gastro-esophageal reflux disease without esophagitis; K44.9 Diaphragmatic hernia without obstruction or gangrene; R79.89 Other specified abnormal findings of blood chemistry; I10 Essential (primary) hypertension; E11.9 Type 2 diabetes mellitus without complications; I73.9 Peripheral vascular disease, unspecified; E78.5 Hyperlipidemia, unspecified; J45.909 Unspecified asthma, uncomplicated; G47.33 Obstructive sleep apnea (adult) (pediatric); C50.919 Malignant neoplasm of unspecified site of unspecified female breast; Z79.811 Long term (current) use of aromatase inhibitors; Z79.51 Long term (current) use of inhaled steroids; Z79.4 Long term (current) use of insulin; Z88.8 Allergy status to other drugs, medicaments and biological substances; Z91.040 Latex allergy status; Z87.891 Personal history of nicotine dependence
CPT/HCPCS: 45385; 45380; 43239; 82947; 88305; 88342

== ENCOUNTER → 2022-03-31 09:44 | Outpatient (BNVA) | payer OTHER, SELFPAY | PROVIDERS: PCP Internal Medicine; Visit Provider Hospitalist | DX: J45.41 Moderate persistent asthma with (acute) exacerbation (principal); J40 Bronchitis, not specified as acute or chronic; J98.4 Other disorders of lung; R06.00 Dyspnea, unspecified; G47.33 Obstructive sleep apnea (adult) (pediatric); Z99.89 Dependence on other enabling machines and devices | CPT/HCPCS: 99212 ==

== ENCOUNTER 2022-04-21 08:56 | Outpatient (REF) | payer OTHER, SELFPAY ==
[2022-04-21 09:21] LABS: MANUAL DIFF FLAG NO
[2022-04-21 09:37] LABS: Basophils Absolute Auto 0.1 X10*3/uL (0.0-0.2); Basophils Percent Auto 0.8 % (0-2); Eosinophils Absolute Auto 0.3 X10*3/uL (0.0-0.4); Hematocrit 31.1 % (37.0-47.0); Hemoglobin 10.3 g/dl (12.0-16.0); Imm Gran Abs Auto 0.04 X10*3/uL (0.00-0.03); Imm Gran Pct Auto 0.6 % (0.0-0.4); Lymphocytes Absolute Auto 1.4 X10*3/uL (1.2-4.9); Lymphocytes Percent Auto 22.7 % (20-40); Mean Corpuscular HGB Conc 33.1 g/dl (31.0-35.0); Mean Corpuscular Hemoglobin 28.1 pg (27.0-33.0); Mean Corpuscular Volume 84.7 fL (80.0-98.0); Mean Platelet Volume 9.7 fL (9.4-12.3); Monocytes Absolute Auto 0.6 X10*3/uL (0.1-1.2); Monocytes Percent Auto 9.7 % (2-11); Neutrophils Absolute Auto 3.8 x10*3/uL (2.0-8.3); Neutrophils Percent Auto 61.2 % (45-73); Platelet Count 251 X10*3/uL (160-400); Red Blood Count 3.67 X10*6/uL (4.20-5.50); White Blood Count 6.3 X10*3/uL (4.8-10.8)
[2022-04-21 10:07] LABS: Albumin Level 3.9 g/dL (3.5-5.0); Anion Gap 21 (12-20); Blood Urea Nitrogen 26 mg/dL (9-16); Calcium 9.5 mg/dL (8.4-10.2); Carbon Dioxide 22 mmol/L (22-29); Chloride 102 mmol/L (96-108); Estimated Glomerular Filt Rate 36; Magnesium 2.3 mg/dL (1.6-2.6); Phosphorus 4.1 mg/dL (2.7-4.5); Potassium 4.1 mmol/L (3.3-5.1); Sodium 141 mmol/L (135-145)
[2022-04-21 10:28] LABS: Vitamin D 25-OH Total 91.2 ng/mL (>30)
[2022-04-21 11:38] LABS: Appearance Urine Clear; Color Urine Yellow; Glucose Urine UA Negative (Negative); Leukocyte Esterase Urine Trace (Negative); Nitrite Urine Negative (Negative); PH 5.5 (5.0-9.0); Specific Gravity - Urine 1.015 (1.005-1.025); UMIC TRIGGER UA YES; Urine Blood Negative (Negative); Urine Ketones Negative (Negative); Urine Protein 30 (1+) mg/dL (Neg-Trace)
[2022-04-21 11:45] LABS: Bacteria Urine Trace (None Seen); RBC Urine 0-2 /HPF (0-2); WBC Urine 0-5 /HPF (0-5)
[2022-04-21 12:14] LABS: Creatinine Urine 85.13 mg/dL; Microalbum/Creatinine Ratio Ur 236.1 ug/mg cr; Protein/Creatinine Ratio, Ur 0.48 (<0.2); Total Protein Urine Random 41 mg/dL (<12)
[2022-04-24 15:39] LABS: Calcium (PTHI) 9.8 mg/dL (8.6-10.4); PTHI 211 pg/mL (16-77)
== END 2022-04-21 08:57 | disposition home or self-care (01) ==
LOC: HO.LAB 08:56
PROVIDERS: Visit Provider Internal Medicine Nephrology
DX: E11.22 Type 2 diabetes mellitus with diabetic chronic kidney disease (principal); N18.4 Chronic kidney disease, stage 4 (severe); N25.0 Renal osteodystrophy
CPT/HCPCS: 36415; 80051; 81001; 82040; 82043; 82306; 82310; 82565; 83735; 83970; 84100; 84156; 84520; 85025; 87086

== ENCOUNTER → 2022-04-29 10:17 | Outpatient (BNVA) | payer OTHER, SELFPAY | PROVIDERS: PCP Internal Medicine; Visit Provider Internal Medicine Gastroenterology | DX: R79.89 Other specified abnormal findings of blood chemistry (principal); R10.11 Right upper quadrant pain | CPT/HCPCS: 99212 ==

== ENCOUNTER 2022-09-26 09:54 | Outpatient (REF) | payer OTHER, SELFPAY ==
--- NOTE | ~2022-09-26 | XR_ITS ---
EXAMINATION: XR CHEST CLINICAL INFORMATION: Chest pain COMPARISON: Chest x-ray 04/18/2021 TECHNIQUE: 2 views of the chest were obtained. FINDINGS: Cardiac silhouette is normal in size. Dual-lead pacemaker again demonstrated. The lungs are well aerated. There is no lobar consolidation. No pleural effusion or pneumothorax. Surgical clips project over the right axilla. Postsurgical changes of the right shoulder. Mild degenerative changes of the spine. XR/XR chest 2V IMPRESSION: No acute pulmonary pathology.
== END 2022-09-26 09:55 | disposition home or self-care (01) ==
LOC: HO.XRAY 09:54
PROVIDERS: PCP Internal Medicine; Visit Provider Hospitalist
DX: J45.40 Moderate persistent asthma, uncomplicated (principal); R06.00 Dyspnea, unspecified; R07.89 Other chest pain; I51.9 Heart disease, unspecified; G47.33 Obstructive sleep apnea (adult) (pediatric); J98.4 Other disorders of lung; Z99.89 Dependence on other enabling machines and devices; Z79.899 Other long term (current) drug therapy
CPT/HCPCS: 71046; 99212

== ENCOUNTER 2022-10-07 07:53 | Outpatient (REF) | payer OTHER, SELFPAY ==
[2022-10-07 08:15] LABS: MANUAL DIFF FLAG NO
[2022-10-07 08:31] LABS: Basophils Absolute Auto 0.1 X10*3/uL (0.0-0.2); Basophils Percent Auto 0.7 % (0-2); Eosinophils Absolute Auto 0.3 X10*3/uL (0.0-0.4); Eosinophils Percent Auto 3.9 % (0-4); Hematocrit 30.3 % (37.0-47.0); Hemoglobin 10.3 g/dl (12.0-16.0); Imm Gran Abs Auto 0.07 X10*3/uL (0.00-0.03); Lymphocytes Absolute Auto 1.8 X10*3/uL (1.2-4.9); Lymphocytes Percent Auto 26.2 % (20-40); Mean Corpuscular Hemoglobin 28.1 pg (27.0-33.0); Mean Corpuscular Volume 82.6 fL (80.0-98.0); Mean Platelet Volume 9.3 fL (9.4-12.3); Monocytes Absolute Auto 0.6 X10*3/uL (0.1-1.2); Monocytes Percent Auto 8.6 % (2-11); Neutrophils Absolute Auto 4.1 x10*3/uL (2.0-8.3); Neutrophils Percent Auto 59.6 % (45-73); Platelet Count 229 X10*3/uL (160-400); Red Blood Count 3.67 X10*6/uL (4.20-5.50); White Blood Count 6.9 X10*3/uL (4.8-10.8)
[2022-10-07 09:06] LABS: Anion Gap 15 (12-20); Blood Urea Nitrogen 42 mg/dL (9-16); Calcium 9.5 mg/dL (8.4-10.2); Carbon Dioxide 29 mmol/L (22-29); Chloride 101 mmol/L (96-108); Estimated Glomerular Filt Rate 30; Magnesium 2.1 mg/dL (1.6-2.6); Phosphorus 4.2 mg/dL (2.7-4.5); Potassium 3.9 mmol/L (3.3-5.1); Sodium 141 mmol/L (135-145)
[2022-10-07 09:23] LABS: Vitamin D 25-OH Total 66.8 ng/mL (>30)
[2022-10-07 10:32] LABS: Appearance Urine Clear; Color Urine Yellow; Glucose Urine UA >=1000 mg/dL (Negative); Leukocyte Esterase Urine Trace (Negative); Nitrite Urine Negative (Negative); PH 5.5 (5.0-9.0); Specific Gravity - Urine 1.015 (1.005-1.025); UMIC TRIGGER UA YES; UMIC TRIGGER UACC YES; Urine Blood Negative (Negative); Urine Ketones Negative (Negative); Urine Protein Negative (Neg-Trace)
[2022-10-07 10:56] LABS: Bacteria Urine None Seen (None Seen); Hyaline Casts Urine 0-2 /LPF (0-2); RBC Urine 0-2 /HPF (0-2); WBC Urine 0-5 /HPF (0-5)
[2022-10-07 11:16] LABS: Creatinine Urine 52.07 mg/dL; Microalbum/Creatinine Ratio Ur 21.1 ug/mg cr; Total Protein Urine Random < 7 mg/dL (<12)
[2022-10-10 15:54] LABS: Calcium (PTHI) 9.5 mg/dL (8.6-10.4); PTHI 298 pg/mL (16-77)
== END 2022-10-07 07:54 | disposition home or self-care (01) ==
LOC: HO.LAB 07:53
PROVIDERS: PCP Internal Medicine; Visit Provider Internal Medicine Nephrology
DX: E11.22 Type 2 diabetes mellitus with diabetic chronic kidney disease (principal); N18.32 Chronic kidney disease, stage 3b; N25.0 Renal osteodystrophy
CPT/HCPCS: 36415; 80051; 81001; 81003; 82043; 82306; 82310; 82565; 83735; 83970; 84100; 84156; 84520; 85025

== ENCOUNTER 2023-01-20 08:44 | Outpatient (REF) | payer OTHER, SELFPAY ==
--- NOTE | ~2023-01-20 | XR_ITS ---
EXAMINATION: XR SHOULDER, LEFT CLINICAL INFORMATION: Worsening left shoulder pain, without trauma. COMPARISON: None available. TECHNIQUE: AP external rotation, Grashey, scapular Y, and axillary views of the left shoulder. FINDINGS: The bones and soft tissues are normal. No fracture. Glenohumeral and acromioclavicular alignment is anatomic with normal joint space. No abnormal soft tissue calcifications. A pacemaker device is noted. XR/XR shoulder LT min 2V IMPRESSION: Normal left shoulder.
== END 2023-01-20 08:45 | disposition home or self-care (01) ==
LOC: HO.HHCX 08:44
PROVIDERS: Visit Provider Nurse Practitioner Primary Care
DX: M25.512 Pain in left shoulder (principal)
CPT/HCPCS: 73030

== ENCOUNTER 2023-03-02 10:52 | Outpatient (REF) | payer OTHER, SELFPAY ==
--- NOTE | ~2023-03-02 | XR_ITS ---
EXAMINATION: XR CERVICAL SPINE CLINICAL INFORMATION: Neck pain for 2 days, cervical spondylosis with radiculopathy COMPARISON: None available. TECHNIQUE: 3 views of the cervical spine were obtained. FINDINGS: The visualized cervical vertebrae are intact with normal alignment. Odontoid process is intact with normal C1/C2 lateral masses alignment. Pre-dental interval is normal. Pre vertebral soft tissue is normal in thickness. There is mild decrease in C5-C6 disc height. Sharp anterior syndesmophytes are present. Left subclavian approach dual-chamber pacemaker wires are partially visualized. XR/XR cervical spine 3V IMPRESSION: 1. C5-C6 degenerative cervical disc disease with sharp anterior syndesmophytes is present. 2. No fracture or dislocation of cervical spine is seen. Disclaimer: Plain x-rays of cervical spine cannot detect all fractures. In case of significant neck trauma, the need for further evaluation with CT scan of cervical spine will have to be decided on clinical grounds.
== END 2023-03-02 10:53 | disposition home or self-care (01) ==
LOC: HO.HHCX 10:52
PROVIDERS: Visit Provider Internal Medicine
DX: M47.22 Other spondylosis with radiculopathy, cervical region (principal)
CPT/HCPCS: 72040

== ENCOUNTER 2023-03-17 10:58 | Outpatient (REF) | payer OTHER, SELFPAY ==
[2023-03-17 11:22] LABS: MANUAL DIFF FLAG NO
[2023-03-17 11:59] LABS: Basophils Percent Auto 0.5 % (0-2); Eosinophils Absolute Auto 0.2 X10*3/uL (0.0-0.4); Eosinophils Percent Auto 3.3 % (0-4); Hematocrit 29.1 % (37.0-47.0); Hemoglobin 9.8 g/dl (12.0-16.0); Imm Gran Abs Auto 0.02 X10*3/uL (0.00-0.03); Imm Gran Pct Auto 0.4 % (0.0-0.4); Lymphocytes Absolute Auto 1.4 X10*3/uL (1.2-4.9); Lymphocytes Percent Auto 23.9 % (20-40); Mean Corpuscular HGB Conc 33.7 g/dl (31.0-35.0); Mean Corpuscular Hemoglobin 26.9 pg (27.0-33.0); Mean Corpuscular Volume 79.9 fL (80.0-98.0); Mean Platelet Volume 9.7 fL (9.4-12.3); Monocytes Absolute Auto 0.5 X10*3/uL (0.1-1.2); Monocytes Percent Auto 9.1 % (2-11); Neutrophils Absolute Auto 3.6 x10*3/uL (2.0-8.3); Neutrophils Percent Auto 62.8 % (45-73); Platelet Count 221 X10*3/uL (160-400); Red Blood Count 3.64 X10*6/uL (4.20-5.50); Red Cell Distribution Width 14.2 % (11.0-16.0); White Blood Count 5.7 X10*3/uL (4.8-10.8)
[2023-03-17 12:50] LABS: Anion Gap 16 (12-20); Blood Urea Nitrogen 24 mg/dL (9-16); Calcium 9.6 mg/dL (8.4-10.2); Carbon Dioxide 26 mmol/L (22-29); Chloride 103 mmol/L (96-108); Estimated Glomerular Filt Rate 32; Magnesium 2.2 mg/dL (1.6-2.6); Potassium 4.4 mmol/L (3.3-5.1); Sodium 141 mmol/L (135-145)
[2023-03-17 12:54] LABS: Vitamin D 25-OH Total 48.3 ng/mL (>30)
[2023-03-17 13:34] LABS: Appearance Urine Cloudy; Color Urine Yellow; Glucose Urine UA >=1000 mg/dL (Negative); Leukocyte Esterase Urine Moderate (2+) (Negative); Nitrite Urine Negative (Negative); Specific Gravity - Urine 1.015 (1.005-1.025); UMIC TRIGGER UA YES; Urine Blood Negative (Negative); Urine Ketones Negative (Negative); Urine Protein 30 (1+) mg/dL (Neg-Trace)
[2023-03-17 13:36] LABS: Bacteria Urine 4+ (None Seen); Hyaline Casts Urine 0-2 /LPF (0-2); RBC Urine 0-2 /HPF (0-2); Squamous Epithelial Cell Urine >20 /HPF (0-2); WBC Urine 21-50 /HPF (0-5)
[2023-03-17 14:24] LABS: Creatinine Urine 63.48 mg/dL; Microalbum/Creatinine Ratio Ur 296.1 ug/mg cr (<30); Protein/Creatinine Ratio, Ur 0.55 (<0.2); Total Protein Urine Random 35 mg/dL (<12)
[2023-03-20 11:48] LABS: Calcium (PTHI) 9.1 mg/dL (8.6-10.4); PTHI 340 pg/mL (16-77)
== END 2023-03-17 10:59 | disposition home or self-care (01) ==
LOC: HO.LAB 10:58
PROVIDERS: PCP Internal Medicine; Visit Provider Internal Medicine Nephrology
DX: E11.22 Type 2 diabetes mellitus with diabetic chronic kidney disease (principal); N18.4 Chronic kidney disease, stage 4 (severe); R82.90 Unspecified abnormal findings in urine
CPT/HCPCS: 36415; 80051; 81001; 82040; 82043; 82306; 82310; 82565; 82570; 83735; 83970; 84100; 84156; 84520; 85025; 87086

== ENCOUNTER 2023-03-20 09:54 | Outpatient (AMB) | payer OTHER, SELFPAY ==
--- NOTE | 2023-03-20 10:13 | MHC.OFFVIS ---
Intake Vital Signs 03/20/23 10:17 Height 4 ft 9 in Weight 154 lb 5.177 oz BMI 33.4 BP 135/46 L Blood Pressure Location Lt brachial Position Sitting Pulse 62 Intake Visit Reasons: pt req follow up Intake Note: Angela presents in the office as a follow up requested be patient. CC: She states that she gets some pains in the stomach and she has nausea and vomiting. She gets a lot of pain and a ball in her RUQ. 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 Allergies tramadol [TRAMADOL] Allergy (Severe, Verified 03/20/23 10:17) THROAT, LIPS SWELLING, latex [LATEX] Allergy (Intermediate, Verified 03/20/23 10:17) RASH HPI pt req follow up HPI Details 67 yr old f with Dm, depression, Pranav, CKD, CHF and neuropathy here for f/u She was seen by [facility] for assessment of anemia and abn LFT She had EGD, colonoscopy 02/10 with gastritis, esophagitis, polyps, melanosis coli, hemorrhoids and diverticulosis noted, no active bleeding anemia thought to be ACD and due to CKD path with serrated and adenomatous polyps LABS with stable HGB around 10 g/dl for several readings. AST, ALT, Alk p elevated US 11/2021- with coarse liver architecture and increased elastography consistent with portal hypertension INTERIM: she has been having abdominal pain RUQ and epigastric areas she has been having worsening heartburn she is taking omeprazole seats fruits, rice, veg she takes percocet QID every day for arm pain, 8 yrs ago she had her GB removed about 12 yrs ago she has been having issues with nausea and vomiting she has been having constipation --she can go up to 3 days before going to the toilet if she passes stool and gas can help her pain EXAM: GENERAL: The patient is well developed and nontoxic. VITAL SIGNS:see workflow HEENT: Nonicteric sclerae, PERRLA, EOMI. Oropharynx clear. Moist mucous membranes. Conjunctivae appear well perfused. No thyroid mass. CHEST: Chest wall is nontender. HEART: Regular rate and rhythm without murmurs. LUNGS: Clear to auscultation bilaterally. ABDOMEN: Soft, positive bowel sounds, nontender, no organomegaly.no flank tenderness SKIN: No rash, no excessive bruising, petechiae, or purpura. NEUROLOGIC: Cranial nerves II-XII intact without motor/sensory deficit. Psych: nml affect A/P: 1/ Anemia, chronic disease, stable HGB, may also be due to portal hypertension and CKD 2/ abn LFt, may have early stage compensated cirrhosis, possible from TOMLINSON given her co morbidities PLAN: 1/ liver serologies incl AMA--didnt go last time 2/ periodic HGB check, if downtrending then capsule endoscopy--has been stable 3/ movantik for constipation 4/ repeat Us in 6-12 months 5/ may have some gastroparesis 2/2 to medications and DM, advised on diet, avoiding fats, increase fluids with food, small meals--will get ba swallow 6/ AXR today to assess stool burden 7/ change ppi to esomeprazole PFSH Medical History (Updated 09/26/22 @ 21:54 by Raciel Rebolledo MD) Chest discomfort Anemia Chronic restrictive lung disease Dyspnea Asthma 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 (BMI 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 Dyslipidemia Diabetic nephropathy associated with type 2 diabetes mellitus Diabetic retinopathy associated with type 2 diabetes mellitus Obstructive sleep apnea on CPAP Other and unspecified hyperlipidemia Essential hypertension Type 2 diabetes mellitus with unspecified complications GERD (gastroesophageal reflux disease) Breast cancer Depression Diabetes mellitus, type 2 Asthma Surgical History Hx of colonoscopy History of esophagogastroduodenoscopy (EGD) History of total abdominal hysterectomy History of cholecystectomy History of shoulder surgery History of 3 sections History of permanent cardiac pacemaker placement Family History Father Diabetes Brother Diabetes Sister Diabetes Mother No known problems Social History Household Members: Spouse Housing: Apartment Do you presently have visiting nurse or other home services: No Alcohol intake: never Patient Tobacco Use Status: Former Tobacco user Tobacco use type: Cigarette Years Smoked: 12 years service: No Current occupational status: disabled Physical Exam Vital Signs: Last Vital Signs Pulse 62 03/20/23 10:17 BP 135/46 L 03/20/23 10:17 BMI result Body Mass Index 33.4 Assessment & Plan Assessment & Plan (1) Chronic constipation: Comment: Bowel regimen HFD Code(s): K59.09 - Other constipation (2) GERD (gastroesophageal reflux disease): Comment: cont ppi reflux precaution Code(s): K21.9 - Gastro-esophageal reflux disease without esophagitis (3) RUQ pain: Comment: labs U/s Code(s): R10.11 - Right upper quadrant pain Orders: Orders XR KUB Today K59.09 - Other constipation US abdomen milan w elastography Today K74.60 - Unspecified cirrhosis of liver, K75.81 - Nonalcoholic steatohepatitis (TOMLINSON) FL upper GI series Today K21.9 - Gastro-esophageal reflux disease without esophagitis, R10.11 - Right upper quadrant pain Medications: New naloxegol (Movantik) must be taken on empty stomach; no food 1 hr after or 2-3 hrs before dose 12.5 mg PO QAM 60 tabs 1RF esomeprazole magnesium 20 mg PO DAILY 90 caps 1RF Coding Level of Care Code Est Pt Level 4 (68886) Diagnoses Chronic constipation K59.09 GERD (gastroesophageal reflux disease) K21.9 RUQ pain R10.11
[2023-03-20 10:17] VITALS: BP 135/46; PULSE 62; BMI 33.4
== END 2023-03-20 11:02 | disposition home or self-care (01) ==
PROVIDERS: PCP Internal Medicine; Visit Provider Internal Medicine Gastroenterology
DX: K59.09 Other constipation (principal); K21.9 Gastro-esophageal reflux disease without esophagitis; R10.11 Right upper quadrant pain
CPT/HCPCS: 99214

== ENCOUNTER 2023-03-20 09:54 | Outpatient (REF) | payer OTHER, SELFPAY ==
--- NOTE | ~2023-03-20 | XR_ITS ---
EXAMINATION: XR ABDOMEN KUB CLINICAL INDICATION: Constipation, abdominal distention COMPARISON: CT abdomen and pelvis 01/13/2022. TECHNIQUE: 3 AP views of the abdomen. FINDINGS: Moderate to large amount of stool in the colon. Nonobstructive bowel gas pattern. Surgical clips right upper quadrant of the abdomen. Degenerative changes in the thoracic spine XR/XR KUB IMPRESSION: Moderate to large amount of stool in the colon. Nonobstructive bowel gas pattern.
[2023-03-20 11:46] LABS: Prothrombin Time 12.6 SEC (11.1-13.3)
[2023-03-20 12:55] LABS: Alanine Aminotransferase 48 U/L (0-31); Albumin Level 4.1 g/dL (3.5-5.0); Alkaline Phosphatase 168 U/L (39-117); Aspartate Amino Transferase 56 U/L (5-31); Bilirubin Direct 0.2 mg/dL (0.0-0.5); Bilirubin Total 0.4 mg/dL (0.0-1.0)
[2023-03-20 13:16] LABS: Ferritin 31 ng/mL (10-250); Vitamin D 25-OH Total 48.7 ng/mL (>30)
[2023-03-20 13:17] LABS: HBS Num1 0.17 mIU/mL (0-7.99); HBc Num1 0.12 S/CO (0.00-0.79); HBsAGNum1 0.37 S/CO (0.00-0.99); Hepatitis A Antibody IgM 0.24 Index (0-0.79); Hepatitis B Core Antibody Nonreactive (Nonreactive); Hepatitis B Surface Antigen Negative (Negative); ~HepC Num1 0.07 S/CO (0.00-0.79); ~Hepatitis A Antibody IgM Nonreactive (Nonreactive); ~Hepatitis B Surface Antibody NONREACTIVE (Nonreactive); ~Hepatitis C Antibody Nonreactive (Nonreactive)
[2023-03-20 13:23] LABS: Gamma Glutamyl Transpeptidase 215 U/L (7-33)
[2023-03-21 09:11] LABS: Folate 17.1 ng/mL (> or = 4.0); Vitamin B12 1596 pg/mL (200-900)
[2023-03-22 14:58] LABS: Immunoglobulin G 1589 mg/dL (600-1540)
[2023-03-23 12:29] LABS: Zinc 63 mcg/dL (60-130)
[2023-03-23 13:58] LABS: Mitochondrial Antibodies NEGATIVE (NEGATIVE)
[2023-03-23 17:23] LABS: Vitamin K1 395 pg/mL (130-1500)
[2023-03-24 08:24] LABS: Angiotensin Converting Enzyme 82.5 U/L (9-67)
[2023-03-24 12:28] LABS: Vitamin C 0.6 mg/dL (0.3-2.7)
[2023-03-24 13:48] LABS: Vitamin B6 10.7 ng/mL (2.1-21.7)
[2023-03-24 14:08] LABS: Smooth Muscle Antibody <20 U (<20)
[2023-03-24 15:48] LABS: Vitamin B1 45 nmol/L (8-30)
[2023-03-24 17:19] LABS: Alpha-Tocopherol 14.7 mg/L (5.7-19.9); Beta-Gamma Tocopherol <1.0 mg/L (<=4.3)
[2023-03-24 21:08] LABS: Vitamin B5 (Pantothenic Acid) 105 ng/mL (<275)
[2023-03-24 22:18] LABS: Nicotinamide 21 ng/mL; Vit B3 - Nicotinic Acid <20 ng/mL
[2023-03-27 16:14] LABS: Vitamin A 90 mcg/dL (38-98)
[2023-03-29 14:43] LABS: Transglutaminase IgA <1.0 U/mL
[2023-04-03 08:13] LABS: Soluble Liver Ag Autoantibody <20.1
== END 2023-03-20 09:55 | disposition home or self-care (01) ==
LOC: HO.XRAY 09:54
PROVIDERS: PCP Internal Medicine; Visit Provider Internal Medicine Gastroenterology
DX: R10.11 Right upper quadrant pain (principal); R10.33 Periumbilical pain; K21.9 Gastro-esophageal reflux disease without esophagitis; K52.839 Microscopic colitis, unspecified; R79.89 Other specified abnormal findings of blood chemistry; K59.09 Other constipation; E11.22 Type 2 diabetes mellitus with diabetic chronic kidney disease; N18.9 Chronic kidney disease, unspecified; K74.60 Unspecified cirrhosis of liver; K75.81 Nonalcoholic steatohepatitis (NASH); R11.2 Nausea with vomiting, unspecified
CPT/HCPCS: 36415; 74018; 80076; 82103; 82164; 82180; 82306; 82390; 82607; 82728; 82746; 82784; 82977; 83520; 84207; 84425; 84446; 84590; 84591; 84597; 84630; 85610; 86015; 86364; 86381; 86704; 86706; 86709; 86803; 87340; 99212

== ENCOUNTER 2023-03-24 08:40 | Outpatient (REF) | payer OTHER, SELFPAY ==
[2023-03-24 10:44] LABS: Anion Gap 13 (12-20); Blood Urea Nitrogen 20 mg/dL (9-16); Calcium 9.8 mg/dL (8.4-10.2); Carbon Dioxide 30 mmol/L (22-29); Chloride 102 mmol/L (96-108); Estimated Glomerular Filt Rate 30; Glucose Random 177 mg/dL (60-115); Potassium 4.2 mmol/L (3.3-5.1); Sodium 141 mmol/L (135-145)
[2023-03-24 10:45] LABS: B Type Natriuretic Peptide 63 pg/mL (<100)
== END 2023-03-24 08:41 | disposition home or self-care (01) ==
LOC: HO.LAB 08:40
PROVIDERS: PCP Internal Medicine; Visit Provider Internal Medicine Cardiovascular Disease
DX: I50.9 Heart failure, unspecified (principal)
CPT/HCPCS: 36415; 80048; 83880

== ENCOUNTER 2023-04-12 09:30 | Outpatient (AMB) | payer OTHER, SELFPAY ==
--- NOTE | 2023-04-12 09:31 | MHC.OFFVIS ---
Intake Intake Visit Reasons: New Prob- Chronic shoulder pain Intake Note: Eder 67 year old right hand dominant female presents today for an evaluation of progressively worsening left shoulder pain and weakness. Patient is states that she has undergone 2 right shoulder ?rotator cuff repair surgeries? in the past. She reports mild intermittent discomfort in her right shoulder. Patient did injure her left shoulder function 1 year ago while lifting a heavy object. Since that time her symptoms have gotten worse in spite of continued non operative treatments. She has done physical therapy for 12 weeks over the last 6 months which aggravated her pain. She has also tried Tylenol and anti-inflammatory medicines which gave her minimal relief. She has had injections in the past which gave him no relief. The patient reports difficulty lifting her left hand above shoulder height. Allergies tramadol [TRAMADOL] Allergy (Severe, Verified 04/12/23 09:36) THROAT, LIPS SWELLING, latex [LATEX] Allergy (Intermediate, Verified 04/12/23 09:36) RASH Medication List - Last Reconciled 04/12/23 by Gato Dhaliwal MD albuterol sulfate mg inhalation albuterol sulfate 90 mcg/actuation (Ventolin HFA) 2 puffs PO Q6H PRN amlodipine (Norvasc) 10 mg PO DAILY anastrozole 1 tab PO DAILY ascorbic acid (vitamin C) (Vitamin C) 0 mg PO aspirin 1 tab PO DAILY atorvastatin 40 mg PO BEDTIME azelastine 2 sprays intranasal BID blood sugar diagnostic (FreeStyle Lite Strips) As directed four times a day carvedilol 6.25 mg PO BID cholecalciferol (vitamin D3) 125 mcg PO DAILY clotrimazole 1% appl topical cyanocobalamin (vitamin B-12) 1 tab PO DAILY dapagliflozin propanediol (Farxiga) 10 mg PO DAILY docusate sodium 100 mg PO BID doxepin 10 mg PO BEDTIME PRN esomeprazole magnesium 20 mg PO DAILY folic acid 1 mg PO DAILY gabapentin 400 mg PO TID insulin aspart U-100 (Novolog FlexPen U-100 Insulin aspart) 24 u small meal, 32u medium meal, 36u large meal, + 2 u for bg over 200, +6 u for bg over 250, + 8 u for bg over 300, 12 unit snack subcut up to five times a day; 30 days insulin degludec (Tresiba FlexTouch U-200 insulin) 80 units (0.4 mL) subcut DAILY 30 days lancets (FreeStyle Lancets) 4 times a day lancets (TRUEplus Lancets) As directed liraglutide (Victoza 3-Huey) 1.8 mg (0.3 mL) subcut Q24H losartan 25 mg PO DAILY mirtazapine 15 mg PO BEDTIME montelukast 10 mg PO BEDTIME naloxegol (Movantik) 12.5 mg PO QAM oxycodone-acetaminophen 5-325 mg 1 tab PO QID PRN pen needle, diabetic Six times a day pen needle, diabetic (BD Ultra-Fine Carolyn Pen Needle) As directed eight times a day pen needle, diabetic (UltiCare Pen Needle) As directed plecanatide (Trulance) 3 mg PO DAILY sennosides (senna) 17.2 mg PO BEDTIME PRN sertraline 50 mg PO QAM torsemide 20 mg PO DAILY Trelegy Ellipta 200-62.5-25 mcg ([id number]) 1 ea inhalation DAILY [facility] Medical History (Updated 04/12/23 @ 09:48 by Gato Dhaliwal MD) Chest discomfort Anemia Chronic restrictive lung disease Dyspnea Asthma 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 Dyslipidemia Diabetic nephropathy associated with type 2 diabetes mellitus Diabetic retinopathy associated with type 2 diabetes mellitus Obstructive sleep apnea on CPAP Other and unspecified hyperlipidemia Essential hypertension Type 2 diabetes mellitus with unspecified complications GERD (gastroesophageal reflux disease) Breast cancer Depression Diabetes mellitus, type 2 Asthma Surgical History Hx of colonoscopy History of esophagogastroduodenoscopy (EGD) History of total abdominal hysterectomy History of cholecystectomy History of shoulder surgery History of 3 sections History of permanent cardiac pacemaker placement Family History Father Diabetes Brother Diabetes Sister Diabetes Mother No known problems Household Members: Spouse Housing: Apartment Do you presently have visiting nurse or other home services: No Alcohol intake: never Patient Tobacco Use Status: Former Tobacco user Tobacco use type: Cigarette Years Smoked: 12 years service: No Current occupational status: disabled Physical Exam Const Other: Well-nourished well-developed very friendly female awake alert and oriented x3 in no acute distress Lungs - clear to auscultation bilaterally with symmetric expansion Cardiovascular exam - regular rate and rhythm Abdominal exam - soft nontender nondistended Extrem Other: Bilateral upper extremity examination shows good capillary refill, no skin lesions noted, normal sensation light touch Left shoulder examination shows decreased range of motion when compared to her right shoulder, 4/5 strength with supraspinatus testing, positive impingement signs, tenderness over her acromioclavicular joint, no instability Results Reviewed Results Reviewed: X-rays of the patient's left shoulder show severe acromioclavicular joint narrowing, a type 2 acromion, no acute bony abnormalities Assessment & Plan Assessment & Plan (1) Impingement syndrome of left shoulder: Code(s): M75.42 - Impingement syndrome of left shoulder Plan: Ms. Alberto Moreno presents with progressively worsening left shoulder pain and weakness due to impingement syndrome, acromioclavicular joint arthritis and most likely a full-thickness rotator cuff tear. I had a lengthy discussion with the patient regarding the treatment options. At this point she has failed continued non operative treatments. The risks and benefits of left shoulder surgery were discussed at length with the patient. The patient wishes to proceed with surgery. The patient is not able to get an MRI because of a pacemaker implant. Surgery will most likely involve left shoulder diagnostic arthroscopy with distal clavicle excision, acromioplasty and rotator cuff repair showed a full-thickness tear be found at the time of her surgery. The patient will contact my office to pick a surgery date. She will follow-up as instructed. Feel free to call me at any time should questions regarding her orthopedic management arise. Thank you very much for asking me to see this very friendly patient. I spent 22 minutes in reviewing the patient's records and imaging studies, seeing the patient and documenting in the medical record. Coding Level of Care Code New Pt Level 2 (90660) Diagnoses Impingement syndrome of left shoulder M75.42
== END 2023-04-12 09:46 | disposition home or self-care (01) ==
PROVIDERS: PCP Internal Medicine; Visit Provider Orthopaedic Surgery
DX: M75.42 Impingement syndrome of left shoulder (principal)
CPT/HCPCS: 99202

== ENCOUNTER → 2023-04-12 09:30 | Outpatient (BNVA) | payer OTHER, SELFPAY | PROVIDERS: PCP Internal Medicine; Visit Provider Orthopaedic Surgery | DX: M75.42 Impingement syndrome of left shoulder (principal) | CPT/HCPCS: 99202 ==

== ENCOUNTER 2023-05-03 09:16 | Outpatient (REF) | payer OTHER, SELFPAY ==
--- NOTE | ~2023-05-03 | US_ITS ---
EXAMINATION: US ABDOMEN LIMITED WITH LIVER ELASTOGRAPHY CLINICAL INFORMATION: TOMLINSON COMPARISON: CT of January 13, 2022 and ultrasound of December 01, 2021 TECHNIQUE: Real-time imaging of the abdominal viscera. Noninvasive ultrasound liver fibrosis assessment is performed using Mya ElastPQ point quantification shear wave elastography (2D-SWE) with a C5-2 MHz transducer. Multiple elastography samples are obtained. FINDINGS: PANCREAS: Normal. The visualized pancreatic head and body are normal in appearance. The remainder of the pancreas is obscured from visualization by the overlying bowel gas. LIVER: There is coarsened increased echogenicity present without suspicious solid mass. There is a 4 mm cyst within the right lobe inferiorly. There is a lobulated contour to the liver. The right lobe measures 17.7 cm in length. The left lobe measures 11.7 cm in length. Portal flow is hepatopedal Shear wave liver elastography median stiffness is 1.85 m/s (reference: normal median stiffness is 1.3 m/s or less). IQR/median stiffness to assess sampling precision is 0.13 (reference: good quality data set is IQR/median stiffness of 0.15 or less). GALLBLADDER: Status post cholecystectomy COMMON BILE DUCT: Normal in caliber measuring 0.7 cm in diameter. RIGHT KIDNEY: Normal. No hydronephrosis. No renal calculi or solid focal parenchymal lesions. There is a 5 mm simple appearing cyst within the midpole which does not require follow-up. The kidney measures 10.3 cm in maximum dimension. FREE FLUID: None. US/US abdomen milan w elastography IMPRESSION: 1. Imaging findings consistent with hepatic cirrhosis 2. Liver elastography: Measurements are suggestive of compensated advanced chronic liver disease but need further test for confirmation. REFERENCE: Society of Radiologists in Ultrasound Liver Stiffness Thresholds (2020): LIVER STIFFNESS THRESHOLDS: *Liver Stiffness equal or less than 1.3 m/s: High probability of being normal. *Liver Stiffness less than 1.7 m/s: In the absence of other known clinical signs, rules out compensated advanced chronic liver disease. *Liver Stiffness 1.7-2.1 m/s: Suggestive of compensated advanced chronic liver disease but need further test for confirmation. *Liver Stiffness over 2.1 m/s: Rules in compensated advanced chronic liver disease. *Liver Stiffness over 2.4 m/s: Suggestive of clinically significant portal hypertension. QUALITY OF DATA SET: *IQR/Median value equal or less than 0.15 implies a quality data set. *IQR/Median value over 0.15 implies a poor quality data set. SIGNIFICANT CHANGE FROM PRIOR EXAM: Significant change if liver stiffness measurement is 10% or greater from prior exam. OTHER CONSIDERATIONS: The stage of liver fibrosis may be overestimated in the setting of acute hepatitis, liver inflammation, elevated liver function tests, hepatic vascular congestion, obstructive cholestasis, non-fasting state, and infiltrative diseases such as amyloidosis and lymphoma. In some patients with NAFLD, the liver stiffness thresholds for compensated advanced chronic liver disease may be lower. In causes other than viral hepatitis and NAFLD, liver stiffness thresholds are not well established.
== END 2023-05-03 09:17 | disposition home or self-care (01) ==
LOC: HO.US 09:16
PROVIDERS: PCP Internal Medicine; Visit Provider Internal Medicine Gastroenterology
DX: K75.81 Nonalcoholic steatohepatitis (NASH) (principal); K74.60 Unspecified cirrhosis of liver
CPT/HCPCS: 76705; 76981

== ENCOUNTER 2023-05-23 09:49 | Outpatient (REF) | payer OTHER, SELFPAY ==
[2023-05-23 11:52] LABS: Cholesterol 102 mg/dL (<200); HDL Cholesterol 31 mg/dL (>40); LDL Cholesterol Calculated 50 mg/dL (<100); Triglycerides 106 mg/dL (<150)
== END 2023-05-23 09:50 | disposition home or self-care (01) ==
LOC: HO.HHCL 09:49
PROVIDERS: Visit Provider Internal Medicine
DX: I10 Essential (primary) hypertension (principal)
CPT/HCPCS: 36415; 80061

== ENCOUNTER 2023-05-29 09:11 | Outpatient (REF) | payer OTHER, SELFPAY | END 2023-05-29 09:12 | disposition home or self-care (01) | LOC: HO.XRAY 09:11 | PROVIDERS: PCP Internal Medicine; Visit Provider Internal Medicine Gastroenterology | DX: R10.11 Right upper quadrant pain (principal); K21.9 Gastro-esophageal reflux disease without esophagitis | CPT/HCPCS: 74240 ==

== ENCOUNTER → 2023-05-29 09:14 | Outpatient (BNV) | payer OTHER, SELFPAY | PROVIDERS: PCP Internal Medicine; Visit Provider Radiology Diagnostic Radiology | DX: R10.13 Epigastric pain (principal); K21.9 Gastro-esophageal reflux disease without esophagitis | CPT/HCPCS: 74246 ==

== ENCOUNTER 2023-06-08 13:00 | Outpatient (RCR) | payer OTHER, SELFPAY | END 2023-06-20 11:29 | disposition home or self-care (01) | LOC: HO.PT 13:00 | PROVIDERS: PCP Internal Medicine; Visit Provider Nurse Practitioner Primary Care | DX: M25.512 Pain in left shoulder (principal); M25.511 Pain in right shoulder; G89.29 Other chronic pain | CPT/HCPCS: 97110; 97140; 97162 ==

== ENCOUNTER 2023-07-17 09:39 | Outpatient (AMB) | payer OTHER, SELFPAY ==
--- NOTE | 2023-07-17 10:21 | MHC.OFFVIS ---
Intake Vital Signs 07/17/23 10:23 Height 4 ft 9 in Weight 152 lb BMI 32.9 BP 168/70 H Blood Pressure Location Lt brachial Position Sitting Pulse 65 Intake Visit Reasons: 4 month follow up Intake Note: Angela presents in the office as a 4 month follow up. CC: feels pains in her stomach and a ball in her stomach. She has been dealing with gas and heartburn. Allergies tramadol [TRAMADOL] Allergy (Severe, Verified 07/17/23 10:22) THROAT, LIPS SWELLING, latex [LATEX] Allergy (Intermediate, Verified 07/17/23 10:22) RASH HPI 4 month follow up HPI Details 67 yr old f with Dm, depression, Pranav, CKD, CHF and neuropathy here for f/u She was [place] [facility] [place] of anemia and abn LFT She had EGD, colonoscopy 02/10 with gastritis, esophagitis, polyps, melanosis coli, hemorrhoids and diverticulosis noted, no active bleeding anemia thought to be ACD and due to CKD she had her GB removed about 12 yrs ago path with serrated and adenomatous polyps LABS with stable HGB around 10 g/dl for several readings. AST, ALT, Alk p elevated US 11/2021- with coarse liver architecture and increased elastography consistent with portal hypertension US 05/13-- cirrhosis, no masses or tumour GI series: 06/14 1. Mild esophageal dysmotility 2. Small type I hiatal hernia 3. Mild to moderate gastroesophageal reflux. 4. Technically limited evaluation of the stomach due to poor barium coating of the lesser curvature and superior wall, although suspect some degree of fold thickening consistent with mild gastritis. Recommend correlating with EGD. INTERIM: she has problems with swallowing, mostly liquids, no issues with solids she has peigastric pain she has no issues with constipation she takes percocet QID every day for arm pain, 8 yrs ago she only takes movantik occasionally, advised to take daily as she takes percocet daily--when takes it it works well for her awaiting liver bx EXAM: GENERAL: The patient is well developed and nontoxi-obese. VITAL SIGNS:see workflow HEENT: Nonicteric sclerae, PERRLA, EOMI. Oropharynx clear. Moist mucous membranes. Conjunctivae appear well perfused. No thyroid mass. CHEST: Chest wall is nontender. HEART: Regular rate and rhythm without murmurs. LUNGS: Clear to auscultation bilaterally. ABDOMEN: Soft, positive bowel sounds, tender epigastrium, no organomegaly.no flank tenderness SKIN: No rash, no excessive bruising, petechiae, or purpura. NEUROLOGIC: Cranial nerves II-XII intact without motor/sensory deficit. Psych: nml affect A/P: 1/ Anemia, chronic disease, stable HGB, may also be due to portal hypertension and CKD 2/ abn LFt, may have early stage compensated cirrhosis, possible from [place] given her co morbidities --live rbx pending PLAN: 1/ liver bx is pending 2/ periodic HGB check, if downtrending then capsule endoscopy--has been stable 3/ movantik for constipation--advised to take daily, if swallowing improves then great otherwise will get EGD 4/ repeat Us in 6-12 months for HCC screening 5/ rept KUB today [facility] Medical History (Updated 07/17/23 @ 11:12 by Chance Schwartz MD) Chest discomfort Anemia Chronic restrictive lung disease Dyspnea Asthma 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 (BMI 30-39.9) 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 Dyslipidemia Diabetic nephropathy associated with type 2 diabetes mellitus Diabetic retinopathy associated with type 2 diabetes mellitus Obstructive sleep apnea on CPAP Other and unspecified hyperlipidemia Essential hypertension Type 2 diabetes mellitus with unspecified complications GERD (gastroesophageal reflux disease) (~05/18/23) Breast cancer Depression Diabetes mellitus, type 2 Asthma Surgical History Hx of colonoscopy History of esophagogastroduodenoscopy (EGD) History of total abdominal hysterectomy History of cholecystectomy History of shoulder surgery History of 3 sections History of permanent cardiac pacemaker placement Family History Father Diabetes Brother Diabetes Sister Diabetes Mother No known problems Social History Household Members: Spouse Housing: Apartment Do you presently have visiting nurse or other home services: No Alcohol intake: never Patient Tobacco Use Status: Former Tobacco user Tobacco use type: Cigarette Years Smoked: 12 years service: No Current occupational status: disabled Physical Exam Vital Signs: Last Vital Signs Pulse 65 07/17/23 10:23 BP 168/70 H 07/17/23 10:23 BMI result Body Mass Index 32.9 Assessment & Plan Assessment & Plan (1) Elevated LFTs: Comment: labs- Code(s): R79.89 - Other specified abnormal findings of blood chemistry Plan: A/P: 1/ Anemia, chronic disease, stable HGB, may also be due to portal hypertension and CKD 2/ abn LFt, may have early stage compensated cirrhosis, possible from [place] given her co morbidities --live rbx pending PLAN: 1/ liver bx is pending 2/ periodic HGB check, if downtrending then capsule endoscopy--has been stable 3/ movantik for constipation--advised to take daily, if swallowing improves then great otherwise will get EGD 4/ repeat Us in 6-12 months for HCC screening 5/ rept KUB today (2) GERD (gastroesophageal reflux disease): Onset Date: ~05/18/23 Code(s): K21.9 - Gastro-esophageal reflux disease without esophagitis Plan: A/P: 1/ Anemia, chronic disease, stable HGB, may also be due to portal hypertension and CKD 2/ abn LFt, may have early stage compensated cirrhosis, possible from [place] given her co morbidities --live rbx pending PLAN: 1/ liver bx is pending 2/ periodic HGB check, if downtrending then capsule endoscopy--has been stable 3/ movantik for constipation--advised to take daily, if swallowing improves then great otherwise will get EGD 4/ repeat Us in 6-12 months for HCC screening 5/ rept KUB today Orders: Orders XR KUB Today Medications: Refilled naloxegol (Movantik) must be taken on empty stomach; no food 1 hr after or 2-3 hrs before dose 12.5 mg PO QAM 60 tabs 1RF Coding Level of Care Code Est Pt Level 4 (52309) Diagnoses Elevated LFTs R79.89 GERD (gastroesophageal reflux disease) K21.9
[2023-07-17 10:23] VITALS: BP 168/70; PULSE 65; BMI 32.9
== END 2023-07-17 11:11 | disposition home or self-care (01) ==
PROVIDERS: PCP Internal Medicine; Visit Provider Internal Medicine Gastroenterology
DX: R79.89 Other specified abnormal findings of blood chemistry (principal); K21.9 Gastro-esophageal reflux disease without esophagitis
CPT/HCPCS: 99214

== ENCOUNTER → 2023-07-17 09:39 | Outpatient (BNVA) | payer OTHER, SELFPAY | PROVIDERS: PCP Internal Medicine; Visit Provider Internal Medicine Gastroenterology | DX: K21.9 Gastro-esophageal reflux disease without esophagitis (principal); R79.89 Other specified abnormal findings of blood chemistry | CPT/HCPCS: 99212 ==

== ENCOUNTER 2023-07-31 08:46 | Day surgery (SDC) | payer OTHER, SELFPAY ==
[2023-07-31] VITALS (9 sets, daily range): BP systolic 128–154; BP diastolic 41–66; PULSE 60–64; RESP 16–18; TEMP 36.6–36.7; O2SAT 94–99; BMI 32.7
--- NOTE | ~2023-07-31 | US_ITS ---
Ultrasound-guided liver biopsy History: Elevated LFTs Procedure: Ultrasound-guided liver biopsy Risks and benefits and possible complications were discussed with the patient and consent form was signed. The abdomen was prepped and draped in usual sterile fashion. 1% lidocaine was used for anesthesia. A 17-gauge coaxial needle was inserted through the skin and soft tissues and into the right lobe of the liver. A total of 3, 18-gauge cores were performed. Permanent ultrasound images were archived. 2 Gelfoam torpedoes were inserted through the coaxial and administered into the biopsy tract and at the level of the capsule. The needle was then removed. The specimens were placed in formalin and sent to pathology. The patient tolerated the procedure well. The procedure was performed under moderate sedation with a dedicated nurse for monitoring of vital signs. The patient received a total of 2 Versed, and 100 Fentanyl. Moderate sedation time: 17 min This procedure was performed by Pete Burden PA-C, and directly supervised by Dr. Riggs. US/US biopsy liver Impression: Ultrasound-guided liver biopsy
[2023-07-31 10:03] LABS: Glucose, Whole Blood 128 mg/dL (60-115)
[2023-07-31 10:07] LABS: MANUAL DIFF FLAG NO
[2023-07-31 10:15] LABS: INTERNATIONAL NORM RATIO 1.1 (0.9-1.1); Prothrombin Time 13.4 SEC (11.1-13.3)
[2023-07-31 10:17] LABS: Basophils Absolute Auto 0.1 X10*3/uL (0.0-0.2); Basophils Percent Auto 0.8 % (0-2); Eosinophils Absolute Auto 0.2 X10*3/uL (0.0-0.4); Eosinophils Percent Auto 3.7 % (0-4); Hematocrit 30.1 % (37.0-47.0); Imm Gran Abs Auto 0.07 X10*3/uL (0.00-0.03); Imm Gran Pct Auto 1.1 % (0.0-0.4); Lymphocytes Absolute Auto 1.6 X10*3/uL (1.2-4.9); Lymphocytes Percent Auto 24.6 % (20-40); Mean Corpuscular HGB Conc 33.2 g/dl (31.0-35.0); Mean Corpuscular Hemoglobin 26.2 pg (27.0-33.0); Mean Platelet Volume 9.1 fL (9.4-12.3); Monocytes Absolute Auto 0.8 X10*3/uL (0.1-1.2); Monocytes Percent Auto 12.5 % (2-11); Neutrophils Absolute Auto 3.8 x10*3/uL (2.0-8.3); Neutrophils Percent Auto 57.3 % (45-73); Partial Thromboplastin Time 34.6 SEC (26.0-36.8); Platelet Count 225 X10*3/uL (160-400); Red Blood Count 3.81 X10*6/uL (4.20-5.50); Red Cell Distribution Width 15.8 % (11.0-16.0); White Blood Count 6.6 X10*3/uL (4.8-10.8)
[2023-07-31] MEDS: Lidocaine HCl 1 % MPF 5 ML VIAL 10 ML SUBCUT (11:13)
== END 2023-07-31 13:25 | disposition home or self-care (01) ==
PROVIDERS: Physician Assistant Surgical; Student in an Organized Health Care Education/Training Program; PCP Internal Medicine; Visit Provider Internal Medicine Gastroenterology
DX: R79.89 Other specified abnormal findings of blood chemistry (principal); R10.11 Right upper quadrant pain; K74.02 Hepatic fibrosis, advanced fibrosis; K76.0 Fatty (change of) liver, not elsewhere classified; K21.9 Gastro-esophageal reflux disease without esophagitis; E11.21 Type 2 diabetes mellitus with diabetic nephropathy; E11.319 Type 2 diabetes mellitus with unspecified diabetic retinopathy without macular edema; Z79.4 Long term (current) use of insulin; E11.22 Type 2 diabetes mellitus with diabetic chronic kidney disease; N18.9 Chronic kidney disease, unspecified; G62.9 Polyneuropathy, unspecified; G47.33 Obstructive sleep apnea (adult) (pediatric); Z99.89 Dependence on other enabling machines and devices; Z88.5 Allergy status to narcotic agent; Z91.040 Latex allergy status
CPT/HCPCS: 36415; 47000; 76942; 82947; 85025; 85610; 85730; 86850; 86900; 86901; 88307; 88313; 99152; 99153; J2250; J2310; J3010

== ENCOUNTER → 2023-07-31 10:09 | Outpatient (BNV) | payer OTHER, SELFPAY | PROVIDERS: PCP Internal Medicine; Visit Provider Physician Assistant Surgical | DX: R74.01 Elevation of levels of liver transaminase levels (principal) | CPT/HCPCS: 47000; 76942 ==

== ENCOUNTER 2023-08-23 17:53 | Inpatient (IN) | payer OTHER, SELFPAY ==
[2023-08-23 18:03] VITALS: BP 131/50; PULSE 78; RESP 20; TEMP 37.2; O2SAT 96; BMI 31.2
--- NOTE | 2023-08-23 18:22 | MHC.CARE ---
Patient was seen by [facility] co response and transported to [facility] ED on a section 12 secondary to endorsing suicidal ideation with plan and intent to use knife. It was reported that they engaged in self harming behavior by means of cutting yesterday. Crisis evaluation will be faxed when completed. IPLOC being recommended at this time.
--- NOTE | 2023-08-23 18:25 | ED_ITS ---
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 She is dawna upset and tearful. MD complaint: suicidal ideation and feels depressed Onset (ago): day(s) (few) Duration: getting worse History of same: No Relieving factors: none Exacerbating factors: other Context: significant life stressor Associated psychiatric symptoms: depression and suicidal ideation Associated symptoms: denies other symptoms Treatments prior to arrival: placed on mental health hold If self harm: admits thoughts of self harm, has plan, has acted on plan and self-inflicted trauma Related Data Home Medications Medication Instructions Recorded Confirmed anastrozole 1 mg tablet 1 tab PO DAILY 03/14/20 07/31/23 aspirin 81 mg tablet,delayed 1 tab PO DAILY 03/14/20 07/31/23 release cyanocobalamin (vitamin B-12) 1 tab PO DAILY 03/14/20 07/31/23 1,000 mcg tablet oxycodone-acetaminophen 5 mg-325 1 tab PO QID PRN pain 03/14/20 07/31/23 mg tablet docusate sodium 100 mg capsule 100 mg PO BID 04/21/20 07/31/23 atorvastatin 40 mg tablet 40 mg PO BEDTIME 03/23/21 07/31/23 sertraline 50 mg tablet 50 mg PO QAM 03/23/21 07/31/23 torsemide 20 mg tablet 20 mg PO DAILY 03/23/21 07/31/23 lancets 33 gauge (TRUEplus Lancets) #100 ea 04/28/21 04/12/23 cholecalciferol (vitamin D3) 125 125 mcg PO DAILY 09/14/21 07/31/23 mcg (5,000 unit) tablet losartan 25 mg tablet 25 mg PO DAILY 09/14/21 07/31/23 albuterol sulfate 2.5 mg/3 mL mg inhalation 09/23/21 04/12/23 (0.083 %) solution for nebulization dapagliflozin propanediol 10 mg 10 mg PO DAILY 09/23/21 07/31/23 tablet (Farxiga) doxepin 10 mg capsule 10 mg PO BEDTIME PRN insomnia 09/23/21 07/31/23 mirtazapine 15 mg tablet 15 mg PO BEDTIME 09/23/21 07/31/23 clotrimazole 1 % topical cream appl topical 10/07/21 04/12/23 gabapentin 400 mg capsule 400 mg PO TID 10/07/21 07/31/23 pen needle, diabetic 29 gauge x #100 ea 10/07/21 04/12/23 1/2 (UltiCare Pen Needle) sennosides 8.6 mg tablet (senna) 17.2 mg PO BEDTIME PRN constipation 03/31/22 07/31/23 ascorbic acid (vitamin C) 500 mg 0 mg PO 04/29/22 04/12/23 tablet (Vitamin C) furosemide 20 mg tablet 20 mg PO TID 07/17/23 07/31/23 naloxone 4 mg/actuation nasal spray intranasal 07/17/23 triamcinolone acetonide 0.1 % 1 appl topical BID-TID 07/17/23 07/31/23 topical cream Previous Rx's Medication Instructions Recorded amlodipine 10 mg tablet (Norvasc) 10 mg PO DAILY #30 tabs 03/17/20 pen needle, diabetic 32 gauge x #200 ea 08/31/21 insulin degludec 200 unit/mL (3 80 unit (0.4 mL) subcut DAILY 30 09/01/21 mL) subcutaneous pen ( #12 mL FlexTouch U-200 insulin) blood sugar diagnostic (FreeStyle #400 ea 09/14/21 Lite Strips) lancets 28 gauge (FreeStyle #400 ea 09/14/21 Lancets) liraglutide 0.6 mg/0.1 mL (18 mg/3 1.8 mg (0.3 mL) subcut Q24H #9 mL 09/14/21 mL) subcutaneous pen injector (Victoza 3-Huey) pen needle, diabetic 32 gauge x #250 ea 09/14/21 (BD Ultra-Fine Carolyn Pen Needle) insulin aspart U-100 100 unit/mL See Rx Instructions subcut 11/16/21 (3 mL) subcutaneous pen (Novolog .COMPLEX 30 days #45 mL FlexPen U-100 Insulin aspart) montelukast 10 mg tablet 10 mg PO BEDTIME #30 tabs 09/12/22 Trelegy Ellipta 200 mcg-62.5 1 ea inhalation DAILY #60 ea 09/14/22 mcg-25 mcg powder for inhalation (oichsheygan-zykxzplxb-isdxwhrk) azelastine 205.5 mcg (0.15 %) 2 spray intranasal BID #30 mL 12/06/22 nasal spray esomeprazole magnesium 20 mg 20 mg PO DAILY #90 caps 03/20/23 capsule,delayed release naloxegol 12.5 mg tablet (Movantik) 12.5 mg PO QAM #60 tabs 07/17/23 plecanatide 3 mg tablet (Trulance) 3 mg PO DAILY #30 tabs 07/17/23 ursodiol 500 mg tablet 500 mg PO BID #60 tabs 08/04/23 albuterol sulfate 90 mcg/actuation 2 puff inhalation Q6H PRN for 08/07/23 aerosol inhaler (Ventolin HFA) wheezing #18 grams Allergies Allergy/AdvReac Type Severity Reaction Status Date / Time tramadol [TRAMADOL] Allergy Severe THROAT, Verified 07/31/23 10:09 LIPS SWELLING, latex [LATEX] Allergy Intermediate RASH Verified 07/31/23 10:09 Review of Systems Review of Systems: Constitutional : No Fever, No Chills ENT/Mouth : No Ear Pain, No Nasal Congestion, No sore throat Eyes: No Eye Pain, No Swelling, No Redness Cardiovascular : No Chest Pain, No SOB Respiratory : No Cough, No Sputum, No Dyspnea Gastrointestinal : No Nausea, No Vomiting, No Diarrhea, No Hematochezia, No Melena Genitourinary : No Dysuria, No Urinary Frequency, No Hematuria Musculoskeletal : No Myalgias Skin : No Skin Lesions, No rash Neuro : No Weakness, No Numbness, No Paresthesias, No Dizziness, No Headache Psych : positive Anxiety, positive Depression, positive SI no HI All other systems reviewed and are negative PMFSH Past Medical History Attestation statement: The following information was validated with the patient. 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 Dyslipidemia Diabetic nephropathy associated with type 2 diabetes mellitus Diabetic retinopathy associated with type 2 diabetes mellitus Obstructive sleep apnea on CPAP Other and unspecified hyperlipidemia Essential hypertension Type 2 diabetes mellitus with unspecified complications GERD (gastroesophageal reflux disease) (~05/18/23) Breast cancer Depression Diabetes mellitus, type 2 Asthma Surgical History Hx of colonoscopy History of esophagogastroduodenoscopy (EGD) History of total abdominal hysterectomy History of cholecystectomy History of shoulder surgery History of 3 sections History of permanent cardiac pacemaker placement Family History Family History Father Diabetes Brother Diabetes Sister Diabetes Mother No known problems Social History Social History Household Members: Spouse Housing: Apartment Do you presently have visiting nurse or other home services: No Alcohol intake: never Patient Tobacco Use Status: Former Tobacco user Tobacco use type: Cigarette Years Smoked: 12 years Smoked in Last 30 Days: No Use of substances other than those prescribed or required for medical reasons: No Advance Directives: No Advance Directives Information Provided: No service: No Current occupational status: disabled Physical Exam Vital Signs: Vital Signs: Last Vital Signs Temp 98.9 F 08/23/23 18:03 Pulse 78 08/23/23 18:03 Resp 20 08/23/23 18:03 BP 131/50 L 08/23/23 18:03 Pulse Ox 96 08/23/23 18:03 BMI result Body Mass Index 31.2 Appearance: Alert. Oriented X3. No acute distress. Eyes: Pupils equal, round and reactive to light. ENT: Pharynx normal. Neck: Normal inspection. Neck supple. CVS: Normal heart rate and rhythm. Pulses normal. Respiratory: No respiratory distress. Breath sounds normal. Abdomen: Soft and non-tender. Skin: Skin warm and dry. Normal skin color. Normal skin turgor. Extremities: No lower extremity edema. No calf ttp L forearm superficial crusted and scabbed over linear abrasion Neuro: Oriented X 3. No motor deficit. No sensory deficit. CN 2-12 intact Course Course Course Narrative: ceftin for UTI ordered, culture pending Medications Administered Discontinued Medications Generic Name Dose Route Start Last Admin Trade Name Joaquina PRN Reason Stop Dose Admin Lorazepam 0.5 mg 08/23/23 18:31 08/23/23 18:49 Lorazepam 0.5 Mg Tablet PO 08/23/23 18:32 0.5 mg ONCE ONE Administration Medical Decision Making Medical Decision Making [facility] Narrative: 67 yo female with PMH of asthma, PPM, HLD, DM, ROLAN on CPAP, HTN, DM, CKD, CHF here with c/o SI and depression and wants to after her left her after a 50 year marriage. She states she wants to . At this time labs ordered. She is already inpatient bed search and S12 Differential Diagnosis Differential Diagnoses: The differential diagnosis associated with the presentation includes SI, adjustment disorder Admission/Observation Consideration of admission/observation: Escalation of care including admission/observation considered physician observation started at 635pm until placement obtained Consult Healthcare Provider Management of the patient was discussed with: Behavioral Health Provider ([facility]) Lab Data [facility] Lab Attestation statement: I reviewed the patient's lab results. Labs: Lab Results 08/23/23 Range/Units 18:33 Urine Color Yellow Urine Appearance Cloudy Urine pH 6.5 (5.0-9.0) Ur Specific [place] 1.015 (1.005-1.025) Urine Protein Trace (Neg-Trace) mg/dL Urine Glucose (UA) >=1000 H (Negative) mg/dL Urine Ketones Negative (Negative) mg/dL Urine Blood Negative (Negative) Urine Nitrite Negative (Negative) Ur Leukocyte Esterase Moderate (2+) H (Negative) Urine RBC 0-2 (0-2) /HPF Urine WBC >50 H (0-5) /HPF Ur Squamous Epith Cells >20 (0-2) /HPF Urine Bacteria 4+ (None Seen) Hyaline Casts 0-2 (0-2) /LPF Urine Opiates Screen Not Detected (Not Detect) Urine Fentanyl Screen Not Detected (Not Detect) Ur Barbiturates Screen Not Detected (Not Detect) Ur Phencyclidine Scrn Not Detected (Not Detect) Ur Amphetamines Screen Not Detected (Not Detect) U Benzodiazepines Scrn Not Detected (Not Detect) Urine Cocaine Screen Not Detected (Not Detect) U Marijuana (THC) Screen Not Detected (Not Detect) Independent Historian Clinical information obtained from an independent historian. History obtained from or confirmed by: EMS External Record Review External record reviewed: Inpatient record Discharge Plan Discharge Clinical Impression: Suicidal ideation, Acute UTI Patient Disposition: Still a Patient Prescriptions: No Action (DME) pen needle, diabetic 32 gauge x /32 needle See Rx Instructions .ROUTE BID Qty: 200 11RF Rx Instructions: Six times a day Tresiba FlexTouch U-200 200 unit/mL (3 mL) insulin pen 80 unit subcut DAILY 30 Days Qty: 12 6RF montelukast 10 mg tablet 10 mg PO BEDTIME Qty: 30 11RF Trelegy Ellipta 200-62.5-25 mcg blister with device 1 ea inhalation DAILY Qty: 60 11RF azelastine 205.5 mcg (0.15 %) spray,non-aerosol 2 spray intranasal BID Qty: 30 11RF Trulance 3 mg tablet 3 mg PO DAILY Qty: 30 2RF ursodiol 500 mg tablet 500 mg PO BID Qty: 60 3RF albuterol sulfate [Ventolin HFA] 90 mcg/actuation HFA aerosol inhaler 2 puff inhalation Q6H PRN (Reason: for wheezing) Qty: 18 11RF anastrozole 1 mg tablet 1 tab PO DAILY cyanocobalamin (vitamin B-12) 1,000 mcg tablet 1 tab PO DAILY aspirin 81 mg tablet,delayed release (DR/EC) 1 tab PO DAILY oxycodone-acetaminophen 5-325 mg tablet 1 tab PO QID PRN (Reason: pain) amlodipine [Norvasc] 10 mg tablet 10 mg PO DAILY Qty: 30 0RF docusate sodium 100 mg capsule 100 mg PO BID (DME) lancets [TRUEplus Lancets] 33 gauge misc See Rx Instructions Not Applicable QID Qty: 100 Rx Instructions: As directed Farxiga 10 mg tablet 10 mg PO DAILY mirtazapine 15 mg tablet 15 mg PO BEDTIME albuterol sulfate 2.5 mg /3 mL (0.083 %) solution for nebulization inhalation doxepin 10 mg capsule 10 mg PO BEDTIME PRN (Reason: insomnia) losartan 25 mg tablet 25 mg PO DAILY cholecalciferol (vitamin D3) 125 mcg (5,000 unit) tablet 125 mcg PO DAILY Victoza 3-Huey 0.6 mg/0.1 mL (18 mg/3 mL) pen injector 1.8 mg subcut Q24H Qty: 9 6RF (DME) pen needle, diabetic [BD Ultra-Fine Carolyn Pen Needle] 32 gauge x 5/32 needle See Rx Instructions .ROUTE .MEDSUPPLY Qty: 250 11RF Rx Instructions: As directed eight times a day (DME) FreeStyle Lite Strips Strip See Rx Instructions .ROUTE .MEDSUPPLY Qty: 400 3RF Rx Instructions: As directed four times a day (DME) lancets [FreeStyle Lancets] 28 gauge misc See Rx Instructions .ROUTE .MEDSUPPLY Qty: 400 3RF Rx Instructions: 4 times a day sennosides [senna] 8.6 mg tablet 17.2 mg PO BEDTIME PRN (Reason: constipation) ascorbic acid (vitamin C) [Vitamin C] 500 mg tablet 0 mg PO sertraline 50 mg tablet 50 mg PO QAM atorvastatin 40 mg tablet 40 mg PO BEDTIME torsemide 20 mg tablet 20 mg PO DAILY gabapentin 400 mg capsule 400 mg PO TID (DME) pen needle, diabetic [UltiCare Pen Needle] 29 gauge x 1/2 needle See Rx Instructions .ROUTE .MEDSUPPLY Qty: 100 Rx Instructions: As directed clotrimazole 1 % cream topical insulin aspart U-100 [Novolog FlexPen U-100 Insulin] 100 unit/mL (3 mL) insulin pen See Rx Instructions subcut .COMPLEX 30 Days Qty: 45 6RF Rx Instructions: 24 u small meal, 32u medium meal, 36u large meal, + 2 u for bg over 200, +6 u for bg over 250, + 8 u for bg over 300, 12 unit snack subcut up to five times a day; esomeprazole magnesium 20 mg capsule,delayed release(DR/EC) 20 mg PO DAILY Qty: 90 1RF naloxone 4 mg/actuation spray,non-aerosol intranasal furosemide 20 mg tablet 20 mg PO TID triamcinolone acetonide 0.1 % cream 1 appl topical BID-TID Movantik 12.5 mg tablet 12.5 mg PO QAM Qty: 60 1RF Rx Instructions: must be taken on empty stomach; no food 1 hr after or 2-3 hrs before dose Interventions: [place]-Suicide Risk Severity Scale Last Done: 08/23/23 18:10
[2023-08-23 18:47] LABS: Appearance Urine Cloudy; Color Urine Yellow; Glucose Urine UA >=1000 mg/dL (Negative); Leukocyte Esterase Urine Moderate (2+) (Negative); Nitrite Urine Negative (Negative); PH 6.5 (5.0-9.0); Specific Gravity - Urine 1.015 (1.005-1.025); UMIC TRIGGER UACC YES; Urine Blood Negative (Negative); Urine Ketones Negative (Negative); Urine Protein Trace mg/dL (Neg-Trace)
[2023-08-23] MEDS: LORazepam 0.5 MG TABLET PO (18:49)
[2023-08-23 18:51] LABS: Bacteria Urine 4+ (None Seen); Hyaline Casts Urine 0-2 /LPF (0-2); RBC Urine 0-2 /HPF (0-2); Squamous Epithelial Cell Urine >20 /HPF (0-2); UACC Culture Trigger YES; WBC Urine >50 /HPF (0-5)
[2023-08-23 18:53] LABS: Amphetamine Screen Urine Not Detected (Not Detect); Barbiturates, Urine Not Detected (Not Detect); Benzodiazepines Screen Urine Not Detected (Not Detect); Cannabinoid Screen Urine Not Detected (Not Detect); Cocaine Screen Urine Not Detected (Not Detect); Fentanyl, urine Not Detected (Not Detect); Opiate Screen Urine Not Detected (Not Detect); Phencyclidine Screen Urine Not Detected (Not Detect)
[2023-08-23 19:06] LABS: MANUAL DIFF FLAG NO
[2023-08-23 19:07] LABS: Basophils Percent Auto 0.5 % (0-2); Eosinophils Absolute Auto 0.2 X10*3/uL (0.0-0.4); Eosinophils Percent Auto 2.5 % (0-4); Hematocrit 31.1 % (37.0-47.0); Hemoglobin 10.4 g/dl (12.0-16.0); Imm Gran Abs Auto 0.03 X10*3/uL (0.00-0.03); Imm Gran Pct Auto 0.5 % (0.0-0.4); Lymphocytes Percent Auto 16.1 % (20-40); Mean Corpuscular HGB Conc 33.4 g/dl (31.0-35.0); Mean Corpuscular Hemoglobin 26.3 pg (27.0-33.0); Mean Corpuscular Volume 78.7 fL (80.0-98.0); Mean Platelet Volume 9.2 fL (9.4-12.3); Monocytes Absolute Auto 0.7 X10*3/uL (0.1-1.2); Monocytes Percent Auto 11.1 % (2-11); Neutrophils Absolute Auto 4.2 x10*3/uL (2.0-8.3); Neutrophils Percent Auto 69.3 % (45-73); Platelet Count 187 X10*3/uL (160-400); Red Blood Count 3.95 X10*6/uL (4.20-5.50); Red Cell Distribution Width 14.9 % (11.0-16.0)
[2023-08-23 19:23] LABS: Alanine Aminotransferase 34 U/L (0-31); Albumin Level 3.9 g/dL (3.5-5.0); Alkaline Phosphatase 127 U/L (39-117); Anion Gap 16 (12-20); Aspartate Amino Transferase 45 U/L (5-31); Bilirubin Direct 0.2 mg/dL (0.0-0.5); Bilirubin Total 0.3 mg/dL (0.0-1.0); Blood Urea Nitrogen 27 mg/dL (9-16); Calcium 9.5 mg/dL (8.4-10.2); Carbon Dioxide 25 mmol/L (22-29); Chloride 104 mmol/L (96-108); Creatinine Clr Calc Pharmacy 29.5; Estimated Glomerular Filt Rate 32; Glucose Random 108 mg/dL (60-115); Potassium 3.8 mmol/L (3.3-5.1); Sodium 141 mmol/L (135-145); Total Protein 8.2 g/dL (6.5-8.0)
[2023-08-23 21:12] LABS: Glucose, Whole Blood 35 mg/dL (60-115)
[2023-08-23 21:13] VITALS: BP 144/36; PULSE 80; RESP 18; TEMP 37; O2SAT 96
[2023-08-23 21:31] LABS: Glucose, Whole Blood 53 mg/dL (60-115)
[2023-08-23 21:55] LABS: Glucose, Whole Blood 101 mg/dL (60-115)
--- NOTE | 2023-08-23 22:08 | PC.NURSE ---
Lyrica and lantus held due to hypoglycemic episode. Will recheck in 1 hour. Notified provider, Rashel ZACARIAS
[2023-08-23] MEDS: Atorvastatin Calcium 40 MG TABLET PO (22:32)
[2023-08-23] MEDS: cefuroxime axetiL 250 MG TABLET PO (22:32)
[2023-08-23] MEDS: amLODIPine Besylate 10 MG TABLET PO (22:32)
[2023-08-23] MEDS: Montelukast Sodium 10 MG TABLET PO (22:32)
[2023-08-23] MEDS: Mirtazapine 15 MG TABLET PO (22:33)
[2023-08-23] MEDS: oxyCODONE HCl Immed Release 5 MG TABLET PO (22:34)
[2023-08-23 23:11] LABS: Glucose, Whole Blood 144 mg/dL (60-115)
--- NOTE | 2023-08-23 23:19 | PC.NURSE ---
POC 144. Provider aware. plan is to continue to hold lantus and lyrica and continue q1 poc checks until 2am
[2023-08-24 01:11] LABS: Glucose, Whole Blood 143 mg/dL (60-115)
[2023-08-24 06:15] VITALS: BP 146/53; PULSE 75; RESP 16; TEMP 36.6; O2SAT 99
[2023-08-24 06:29] LABS: Glucose, Whole Blood 71 mg/dL (60-115)
[2023-08-24] MEDS: Omeprazole 20 MG CAPSULE.DR PO (06:30)
[2023-08-24] MEDS: Anastrozole 1 MG TABLET PO (09:33)
[2023-08-24] MEDS: Losartan Potassium 25 MG TABLET PO (09:33)
[2023-08-24] MEDS: Empagliflozin 10 MG TABLET PO (09:33)
[2023-08-24] MEDS: cefuroxime axetiL 250 MG TABLET PO ×2 (09:33→20:47)
[2023-08-24] MEDS: UrsodioL 300 MG CAPSULE 600 MG PO ×2 (09:33→20:47)
[2023-08-24] MEDS: Torsemide 20 MG TABLET 40 MG PO (09:34)
[2023-08-24 09:37] LABS: Glucose, Whole Blood 95 mg/dL (60-115)
[2023-08-24] MEDS: Ascorbic Acid 500 MG TABLET PO (09:39)
[2023-08-24] MEDS: Sertraline HCL 25 MG TABLET 75 MG PO (09:39)
[2023-08-24] MEDS: Pregabalin 75 MG CAPSULE PO ×2 (09:39→20:47)
[2023-08-24] MEDS: Aspirin Enteric Coated 81 MG TABLET.DR PO (09:39)
[2023-08-24] MEDS: Docusate Sodium 100 MG CAPSULE PO ×2 (09:39→14:10)
--- NOTE | 2023-08-24 10:19 | PC.NURSE ---
chicken tender used to educate patient that POC was 95, encouraged patient to continue eating, patient would like orange juice and crackers, food brought to bedside.
[2023-08-24 11:25] LABS: Influenza A PCR NEGATIVE (Negative); Influenza B PCR NEGATIVE (Negative); Resp Syncy Virus RNA Qual PCR NEGATIVE (Negative); SARS COV2 PCR INHOUSE NEGATIVE (Negative)
--- NOTE | 2023-08-24 12:26 | PC.NURSE ---
Called Daughter Mandy for Ripnatik and Anae from home.
[2023-08-24 12:27] LABS: Glucose, Whole Blood 220 mg/dL (60-115)
--- NOTE | 2023-08-24 12:30 | PC.NURSE ---
[facility]em[facility] patients poc 220 at 1230 waiting for [facility] to arrive has lispro 30units scheduled how much do you want me to give?
[2023-08-24] MEDS: Insulin Lispro 100 UNIT/ML 3 ML VIAL 20 UNIT SUBCUT (13:46)
[2023-08-24 14:07] LABS: Estimated Average Glucose 174 mg/dL; Hemoglobin A1c % 7.7 % (<6.0)
[2023-08-24] MEDS: Fluticasone/Umeclidinium/Vilanterol 200/62.5/25 BLST.W.DEV 1 PUFF INHALE (14:12)
--- NOTE | 2023-08-24 14:16 | PC.NURSE ---
Did not give Movantik because she was just given her lunch tray.
--- NOTE | 2023-08-24 14:31 | PC.NURSE ---
Patient states she doesn't want to go inpatient. On section 12.
--- NOTE | 2023-08-24 14:32 | HO.PSYADMNOT ---
HPI Date of Service: 08/24/23 Chief Complaint: SI Sources of Information: patient interviewed, chart reviewed and crisis/core team assessment reviewed HPI Subjective Notes: Diaz Warning (given and shows understanding) and Section 12B Narrative: Mrs. Dominguez is a 67 year-old woman who was brought via EMS after daughter called 911 due to pt planning to OD on medications due to recently learning that her of 50 years was having an affair. Utox was negative. Pt had cut her left forearm superficially the day before she threatened to OD and was brought to the hospital. Pt reports she last Kashif she found out that her of 50 years was having an affair with another woman. She states she confronted him and he admitted to seeing someone else. It is unclear if plans to leave the home or separate from her. She reports he is still at home as far as she is aware. She was tearful and upset during our interview. She denied prior hisotry of suicide attempts or suicidal ideation. She reports she has multiple medical conditions which have affected her quality of life. She feels her has betrayed her. She states he had done this in the past but she had forgiven him. She denies SI/HI. However, when discussing protective factors pt continues to be very upset with her daughter for not allowing her to OD or continue self harm. Her daughter came earlier to visit her here in the hospital and pt asked her to leave. Angela continues to report that her daughter will regret calling the police with minimal insight into events leading to this admission and concern that family has about her well being. Pt reports poor appetite. She has had episodes of hypoglecemia here- due to being on high doses of humalog and lispro and not eating as much. Collateral information from daughter to care team who reported pt was pointing knife at daughter while she was calling the police due to pt insisting in OD with her medications. Daughter reported this is unlike the pt and is worried about pt's safety is discharged without treatment. 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 Dyslipidemia Diabetic nephropathy associated with type 2 diabetes mellitus Diabetic retinopathy associated with type 2 diabetes mellitus Obstructive sleep apnea on CPAP Other and unspecified hyperlipidemia Essential hypertension Type 2 diabetes mellitus with unspecified complications GERD (gastroesophageal reflux disease) (~05/18/23) Breast cancer Depression Diabetes mellitus, type 2 Asthma Surgical History Hx of colonoscopy History of esophagogastroduodenoscopy (EGD) History of total abdominal hysterectomy History of cholecystectomy History of shoulder surgery History of 3 sections History of permanent cardiac pacemaker placement Diagnostics Vital Signs (24Hr): Vital Signs - 24 hr 08/23/23 18:03 08/23/23 21:13 08/24/23 06:15 Temperature 98.9 F 98.6 F 97.8 F Pulse Rate 78 80 75 Respiratory Rate 20 18 16 Blood Pressure 131/50 L 144/36 H 146/53 H Pulse Oximetry 96 96 99 Oxygen Delivery Method Room Air Room Air BMI result Body Mass Index 31.2 Labs 08/23/23 19:02 08/23/23 19:02 Labs: Laboratory Results - last 48 hr 08/23/23 08/23/23 08/23/23 18:33 19:02 21:06 WBC 6.0 RBC 3.95 L Hgb 10.4 L Hct 31.1 L MCV 78.7 L MCH 26.3 L MCHC 33.4 RDW 14.9 Plt Count 187 MPV 9.2 L Immature Gran % (Auto) 0.5 H Neut % (Auto) 69.3 Lymph % (Auto) 16.1 L [place] % (Auto) 11.1 H Eos % (Auto) 2.5 Baso % (Auto) 0.5 Lymph # (Auto) 1.0 L [place] # (Auto) 0.7 Eos # (Auto) 0.2 Baso # (Auto) 0.0 Abs Immat Gran (auto) 0.03 Absolute Neuts (auto) 4.2 Absolute Nucleated RBC 0.000 Nucleated RBC % (auto) 0.0 Sodium 141 Potassium 3.8 Chloride 104 Carbon Dioxide 25 Anion Gap 16 BUN 27 H Creatinine 1.62 H Estim Creat Clear Calc 29.5 Estimated GFR 32 POC Glucose 35 L* Random Glucose 108 Estimat Average Glucose 174 Hemoglobin A1c % 7.7 H Calcium 9.5 Total Bilirubin 0.3 Direct Bilirubin 0.2 AST 45 H ALT 34 H Alkaline Phosphatase 127 H Total Protein 8.2 H Albumin 3.9 Urine Color Yellow Urine Appearance Cloudy Urine pH 6.5 Ur Specific [place] 1.015 Urine Protein Trace Urine Glucose (UA) >=1000 H Urine Ketones Negative Urine Blood Negative Urine Nitrite Negative Ur Leukocyte Esterase Moderate (2+) H Urine RBC 0-2 Urine WBC >50 H Ur Squamous Epith Cells >20 Urine Bacteria 4+ Hyaline Casts 0-2 Urine Opiates Screen Not Detected Urine Fentanyl Screen Not Detected Ur Barbiturates Screen Not Detected Ur Phencyclidine Scrn Not Detected Ur Amphetamines Screen Not Detected U Benzodiazepines Scrn Not Detected Urine Cocaine Screen Not Detected U Marijuana (THC) Screen Not Detected Influenza Type A (PCR) Influenza Type B (PCR) RSV RNA Qual (PCR) SARS-CoV-2 RNA (RT-PCR) 08/23/23 08/23/23 08/23/23 21:27 21:52 23:07 WBC RBC Hgb Hct MCV MCH MCHC RDW Plt Count MPV Immature Gran % (Auto) Neut % (Auto) Lymph % (Auto) [place] % (Auto) Eos % (Auto) Baso % (Auto) Lymph # (Auto) [place] # (Auto) Eos # (Auto) Baso # (Auto) Abs Immat Gran (auto) Absolute Neuts (auto) Absolute Nucleated RBC Nucleated RBC % (auto) Sodium Potassium Chloride Carbon Dioxide Anion Gap BUN Creatinine Estim Creat Clear Calc Estimated GFR POC Glucose 53 L* 101 144 H Random Glucose Estimat Average Glucose Hemoglobin A1c % Calcium Total Bilirubin Direct Bilirubin AST ALT Alkaline Phosphatase Total Protein Albumin Urine Color Urine Appearance Urine pH Ur Specific [place] Urine Protein Urine Glucose (UA) Urine Ketones Urine Blood Urine Nitrite Ur Leukocyte Esterase Urine RBC Urine WBC Ur Squamous Epith Cells Urine Bacteria Hyaline Casts Urine Opiates Screen Urine Fentanyl Screen Ur Barbiturates Screen Ur Phencyclidine Scrn Ur Amphetamines Screen U Benzodiazepines Scrn Urine Cocaine Screen U Marijuana (THC) Screen Influenza Type A (PCR) Influenza Type B (PCR) RSV RNA Qual (PCR) SARS-CoV-2 RNA (RT-PCR) 08/24/23 08/24/23 08/24/23 01:07 06:25 09:34 WBC RBC Hgb Hct MCV MCH MCHC RDW Plt Count MPV Immature Gran % (Auto) Neut % (Auto) Lymph % (Auto) [place] % (Auto) Eos % (Auto) Baso % (Auto) Lymph # (Auto) [place] # (Auto) Eos # (Auto) Baso # (Auto) Abs Immat Gran (auto) Absolute Neuts (auto) Absolute Nucleated RBC Nucleated RBC % (auto) Sodium Potassium Chloride Carbon Dioxide Anion Gap BUN Creatinine Estim Creat Clear Calc Estimated GFR POC Glucose 143 H 71 95 Random Glucose Estimat Average Glucose Hemoglobin A1c % Calcium Total Bilirubin Direct Bilirubin AST ALT Alkaline Phosphatase Total Protein Albumin Urine Color Urine Appearance Urine pH Ur Specific [place] Urine Protein Urine Glucose (UA) Urine Ketones Urine Blood Urine Nitrite Ur Leukocyte Esterase Urine RBC Urine WBC Ur Squamous Epith Cells Urine Bacteria Hyaline Casts Urine Opiates Screen Urine Fentanyl Screen Ur Barbiturates Screen Ur Phencyclidine Scrn Ur Amphetamines Screen U Benzodiazepines Scrn Urine Cocaine Screen U Marijuana (THC) Screen Influenza Type A (PCR) Influenza Type B (PCR) RSV RNA Qual (PCR) SARS-CoV-2 RNA (RT-PCR) 08/24/23 08/24/23 10:17 12:23 WBC RBC Hgb Hct MCV MCH MCHC RDW Plt Count MPV Immature Gran % (Auto) Neut % (Auto) Lymph % (Auto) [place] % (Auto) Eos % (Auto) Baso % (Auto) Lymph # (Auto) [place] # (Auto) Eos # (Auto) Baso # (Auto) Abs Immat Gran (auto) Absolute Neuts (auto) Absolute Nucleated RBC Nucleated RBC % (auto) Sodium Potassium Chloride Carbon Dioxide Anion Gap BUN Creatinine Estim Creat Clear Calc Estimated GFR POC Glucose 220 H Random Glucose Estimat Average Glucose Hemoglobin A1c % Calcium Total Bilirubin Direct Bilirubin AST ALT Alkaline Phosphatase Total Protein Albumin Urine Color Urine Appearance Urine pH Ur Specific [place] Urine Protein Urine Glucose (UA) Urine Ketones Urine Blood Urine Nitrite Ur Leukocyte Esterase Urine RBC Urine WBC Ur Squamous Epith Cells Urine Bacteria Hyaline Casts Urine Opiates Screen Urine Fentanyl Screen Ur Barbiturates Screen Ur Phencyclidine Scrn Ur Amphetamines Screen U Benzodiazepines Scrn Urine Cocaine Screen U Marijuana (THC) Screen Influenza Type A (PCR) NEGATIVE Influenza Type B (PCR) NEGATIVE RSV RNA Qual (PCR) NEGATIVE SARS-CoV-2 RNA (RT-PCR) NEGATIVE Meds/Allergies Meds Home Medications ?Medication ?Instructions ?Recorded ?Confirmed ?Type anastrozole 1 mg tablet 1 tab PO DAILY 03/14/20 08/23/23 History aspirin 81 mg tablet,delayed 1 tab PO DAILY 03/14/20 08/23/23 History release oxycodone-acetaminophen 5 mg-325 1 tab PO QID PRN pain 03/14/20 08/23/23 History mg tablet docusate sodium 100 mg capsule 100 mg PO DIRECTED 04/21/20 08/23/23 History atorvastatin 40 mg tablet 40 mg PO BEDTIME 03/23/21 08/23/23 History sertraline 50 mg tablet 75 mg PO QAM 03/23/21 08/23/23 History torsemide 20 mg tablet 40 mg PO DAILY 03/23/21 08/23/23 History losartan 25 mg tablet 25 mg PO DAILY 09/14/21 08/23/23 History doxepin 10 mg capsule 10 mg PO BEDTIME PRN insomnia 09/23/21 08/23/23 History mirtazapine 15 mg tablet 15 mg PO BEDTIME 09/23/21 08/23/23 History clotrimazole 1 % topical cream See Rx Instructions .Route 10/07/21 08/23/23 History .COMPLEX PRN Itchiness sennosides 8.6 mg tablet (senna) 17.2 mg PO BEDTIME PRN constipation 03/31/22 08/23/23 History ascorbic acid (vitamin C) 500 mg 500 mg PO DIRECTED 04/29/22 08/23/23 History tablet (Vitamin C) albuterol sulfate 2.5 mg/3 mL 1 mg inhalation TID 08/23/23 08/23/23 History (0.083 %) solution for nebulization amlodipine 10 mg tablet (Norvasc) 10 mg PO BEDTIME 08/23/23 08/23/23 History dapagliflozin propanediol 10 mg 10 mg PO DAILY 08/23/23 08/23/23 History tablet (Farxiga) insulin aspart U-100 100 unit/mL See Rx Instructions .Route .COMPLEX 08/23/23 08/23/23 History (3 mL) subcutaneous pen (Novolog FlexPen U-100 Insulin aspart) insulin degludec 200 unit/mL (3 See Rx Instructions .Route .COMPLEX 08/23/23 08/23/23 History mL) subcutaneous pen (Tresiba FlexTouch U-200 insulin) plecanatide 3 mg tablet (Trulance) 3 mg PO DAILY 08/23/23 08/23/23 History pregabalin 75 mg capsule 75 mg PO BID 08/23/23 08/23/23 History tizanidine 2 mg tablet 2 mg PO Q8H PRN muscle spasm 08/23/23 08/23/23 History Allergies Allergies Allergy/AdvReac Type Severity Reaction Status Date / Time tramadol [TRAMADOL] Allergy Severe THROAT, Verified 07/31/23 10:09 LIPS SWELLING, latex [LATEX] Allergy Intermediate RASH Verified 07/31/23 10:09 Mental Status Exam Mental Status Exam Narrative: Appearance: wearing hospital gown, fair hygine, tearful Behaviors: cooperative Psychomotor: no agitation or retardation noted Speech: clear, normal rate/rhythm/volume, spontaneous TP: linear TC: upset and overwhelmed with finding that of 50 years was having an affair mood: okay Affect: upset, intense emotions SI: denies- but still upset that daughter stopped her from OD and that police was called HI:denies VH/AH: none Delusions: none Insight/judgment: poor x 2. Memory/cog: alert, oriented x 3. pending MOCA and ACL. Assessment & Plan Assessment & Plan (1) MDD (major depressive disorder), recurrent episode, moderate: Status: Acute Code(s): F33.1 - Major depressive disorder, recurrent, moderate (2) Adjustment disorder with depressed mood: Status: Acute Code(s): F43.21 - Adjustment disorder with depressed mood Plan Mrs. Dominguez is a 67 year-old woman who was brought via EMS after daughter called police due to pt threatening to OD on her medications in setting of learning that her of 50 years is having an affair. Pt cut her left forearm superficially the day before being brought to the hospital. Pt continues to present as upset with daughter from calling the police and apparently was holding a knife to the daughter while she was calling the police asking her to hang up the phone. Pt continues to present with significant emotional dysregulation and still upset with daughter. We discussed risks, benefits and alternative treatment options. continue sertraline. Her BS has been low and she is on a high dose of humalog and lispro. A1C 7.7% today. hospitalist consult ordered to adjust insulin will hold lispro for now. PLAN 1. Admit to S1, Sect 12b, 15 minutes checks for safety 2. hospitalist consult due to hypoglecemia and high dose humalog and lispro 3. obtain collateral information 4. Aftercare planning. Patient educated on: diagnosis and medication risk/benefits Reason for continued inpatient stay Substantial Risk for: harm to self and harm to others Statement Statement: I have reviewed the history and physical and performed a pertinent examination on my patient. No changes have occurred unless specified. If the History and Physical was not performed prior to admission, the Hospitalist's service will be consulted for completing the admission physical. Time Spent With Patient Time: Total time managing care of this patient today ____ minutes.
[2023-08-24 14:44] VITALS: BP 157/74; PULSE 63; RESP 18; TEMP 36.4; O2SAT 100
--- NOTE | 2023-08-24 15:31 | PC.NURSE ---
Angela reported she uses CPAP at home and Mandy Hawley NP notified.
[2023-08-24 15:50] VITALS: BMI 31.2
[2023-08-24 16:05] LABS: Glucose, Whole Blood 77 mg/dL (60-115)
--- NOTE | 2023-08-24 16:57 | PC.ADMIT ---
Angela arrived on the unit at 1436 from the POD with suicidal ideation. She is primarily [place] speaking. Angela denied SI/HI/AVH. Angela has a PMH of asthma, HPL, DM, ROLAN, HTN, DM, CKD and CHF. She came to the hospital as her recently left her and reported she wanted to end her life. She caused an abrasion to her left forearm and reported she wrote a suicide note. Angela was tearful during the time of the interview and reported she wanted to leave. She is alert and oriented x 3 with poor insight. She was oriented to the unit, toiletries were given, and dinner was ordered. Notified Mandy Hawley NP that Angela needs a CPAP ordered. Will continue to monitor for safety and changes in behavior. Currently on five minute checks per facility protocol.
[2023-08-24 18:00] VITALS: BP 160/71; PULSE 62; RESP 18; TEMP 36.9; O2SAT 96
[2023-08-24 20:28] LABS: Glucose, Whole Blood 154 mg/dL (60-115)
[2023-08-24] MEDS: Albuterol Sulfate (0.083%) 2.5 MG/3 ML VIAL.NEB INHALE (20:39)
[2023-08-24 20:40] VITALS: PULSE 63; RESP 100; O2SAT 18
[2023-08-24] MEDS: Insulin Glargine,Hum.rec.anlog 100 UNIT/ML 10 ML VIAL 33 UNIT SUBCUT (20:43)
[2023-08-24] MEDS: amLODIPine Besylate 10 MG TABLET PO (20:46)
[2023-08-24] MEDS: Atorvastatin Calcium 40 MG TABLET PO (20:46)
[2023-08-24] MEDS: Montelukast Sodium 10 MG TABLET PO (20:47)
[2023-08-24] MEDS: Doxepin HCl 10 MG CAPSULE PO (22:52)
[2023-08-24 23:50] VITALS: PULSE 63
[2023-08-25 06:00] VITALS: BP 157/71; PULSE 67; RESP 18; TEMP 36.8; O2SAT 95
[2023-08-25] MEDS: Omeprazole 20 MG CAPSULE.DR PO (06:09)
[2023-08-25 06:29] LABS: Glucose, Whole Blood 61 mg/dL (60-115)
[2023-08-25 07:57] LABS: MANUAL DIFF FLAG NO
[2023-08-25 08:00] LABS: Basophils Absolute Auto 0.1 X10*3/uL (0.0-0.2); Eosinophils Absolute Auto 0.3 X10*3/uL (0.0-0.4); Hemoglobin 10.8 g/dl (12.0-16.0); Imm Gran Abs Auto 0.03 X10*3/uL (0.00-0.03); Imm Gran Pct Auto 0.6 % (0.0-0.4); Lymphocytes Absolute Auto 1.3 X10*3/uL (1.2-4.9); Lymphocytes Percent Auto 25.5 % (20-40); Mean Corpuscular HGB Conc 32.7 g/dl (31.0-35.0); Mean Corpuscular Hemoglobin 26.2 pg (27.0-33.0); Mean Corpuscular Volume 79.9 fL (80.0-98.0); Mean Platelet Volume 9.5 fL (9.4-12.3); Monocytes Absolute Auto 0.5 X10*3/uL (0.1-1.2); Monocytes Percent Auto 10.4 % (2-11); Neutrophils Absolute Auto 2.9 x10*3/uL (2.0-8.3); Neutrophils Percent Auto 57.5 % (45-73); Platelet Count 219 X10*3/uL (160-400); Red Blood Count 4.13 X10*6/uL (4.20-5.50); Red Cell Distribution Width 15.1 % (11.0-16.0)
[2023-08-25 08:08] LABS: Estimated Average Glucose 177 mg/dL; Hemoglobin A1c % 7.8 % (<6.0)
[2023-08-25 08:25] LABS: Alanine Aminotransferase 34 U/L (0-31); Albumin Level 3.8 g/dL (3.5-5.0); Alkaline Phosphatase 127 U/L (39-117); Anion Gap 16 (12-20); Aspartate Amino Transferase 48 U/L (5-31); Bilirubin Total 0.5 mg/dL (0.0-1.0); Blood Urea Nitrogen 21 mg/dL (9-16); Calcium 9.7 mg/dL (8.4-10.2); Carbon Dioxide 28 mmol/L (22-29); Chloride 102 mmol/L (96-108); Cholesterol 99 mg/dL (<200); Creatinine Clr Calc Pharmacy 27.7; Estimated Glomerular Filt Rate 34; Glucose Fasting 217 mg/dL (60-99); HDL Cholesterol 35 mg/dL (>40); LDL Cholesterol Calculated 40 mg/dL (<100); Potassium 4.2 mmol/L (3.3-5.1); Sodium 142 mmol/L (135-145); Total Protein 8.2 g/dL (6.5-8.0); Triglycerides 121 mg/dL (<150)
[2023-08-25 08:40] LABS: Thyroid Stimulating Hormone 1.33 uIU/mL (0.32-4.0)
[2023-08-25 08:49] LABS: Folate 13.4 ng/mL (> or = 4.0); Vitamin B12 1627 pg/mL (200-900)
[2023-08-25] MEDS: Fluticasone/Umeclidinium/Vilanterol 200/62.5/25 BLST.W.DEV 1 PUFF INHALE (08:57)
[2023-08-25] MEDS: Sertraline HCL 100 MG TABLET PO (09:00)
[2023-08-25] MEDS: cefuroxime axetiL 250 MG TABLET PO ×2 (09:00→21:23)
[2023-08-25] MEDS: Torsemide 20 MG TABLET 40 MG PO (09:00)
[2023-08-25] MEDS: Empagliflozin 10 MG TABLET PO (09:00)
[2023-08-25] MEDS: Aspirin Enteric Coated 81 MG TABLET.DR PO (09:00)
[2023-08-25] MEDS: UrsodioL 300 MG CAPSULE 600 MG PO ×2 (09:00→21:24)
[2023-08-25] MEDS: Docusate Sodium 100 MG CAPSULE PO ×2 (09:01→12:26)
[2023-08-25] MEDS: Pregabalin 75 MG CAPSULE PO ×2 (09:01→21:24)
[2023-08-25] MEDS: Losartan Potassium 25 MG TABLET PO (09:01)
[2023-08-25 11:16] LABS: Glucose, Whole Blood 220 mg/dL (60-115)
--- NOTE | 2023-08-25 11:20 | HO.PM.IMCN ---
History of Present Illness Data of Consult Service Date: 08/25/23 Primary Care Provider: Angela Haley MD HPI Reason for consult: Admission H&P Pt is a 67-year-old female with a PMH significant for? who is admitted to [facility] . Medical consult for admission H&P. ? 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 Dyslipidemia Diabetic nephropathy associated with type 2 diabetes mellitus Diabetic retinopathy associated with type 2 diabetes mellitus Obstructive sleep apnea on CPAP Other and unspecified hyperlipidemia Essential hypertension Type 2 diabetes mellitus with unspecified complications GERD (gastroesophageal reflux disease) (~05/18/23) Breast cancer Depression Diabetes mellitus, type 2 Asthma Family History Father Diabetes Brother Diabetes Sister Diabetes Mother No known problems Surgical History Hx of colonoscopy History of esophagogastroduodenoscopy (EGD) History of total abdominal hysterectomy History of cholecystectomy History of shoulder surgery History of 3 sections History of permanent cardiac pacemaker placement Social History Household Members: Spouse and Family Housing: Apartment Do you presently have visiting nurse or other home services: No Alcohol intake: never Patient Tobacco Use Status: Former Tobacco user Tobacco use type: Cigarette Years Smoked: 12 years Smoked in Last 30 Days: No e-Cigarette/Vaping Use: Former Use Patient Interested in Nicotine Replacement: No Patient Given Instructions on How to Stop Smoking: No Second Hand Smoke Exposure: No Use of substances other than those prescribed or required for medical reasons: No Currently Displaying Signs/Symptoms of Drug Intoxication Withdrawal: No Any prior treatment program specific to substance use: No Have you been hit, kicked, punched, or otherwise hurt by someone within the past year? If so, by whom?: No Do you feel safe in your current relationship?: Yes Is there a partner from a previous relationship who is making you feel unsafe now?: No Are you made to feel afraid or neglected: No Advance Directives: No Advance Directives Information Provided: No Do you have thoughts of harming others: None Do you have a plan to hurt others: No Plan Recently lost weight without trying: Yes How much weight loss: 2-13 pounds Eating poorly because of decreased appetite: Yes Nutrition screen score: 4 Nutrition Risks: No Nutritional Risk Patient : No : No Poor oral hygiene: No service: No Current occupational status: disabled Meds Allergies Allergy/AdvReac Type Severity Reaction Status Date / Time tramadol [TRAMADOL] Allergy Severe THROAT, Verified 07/31/23 10:09 LIPS SWELLING, latex [LATEX] Allergy Intermediate RASH Verified 07/31/23 10:09 Active Medications: Current Medications Acetaminophen (Acetaminophen 325 Mg Tablet) 650 mg PO Q6H PRN PRN Reason: Headache/Pain Mild Scale (1-3) Al Hydroxide/Mg Hydroxide (Magnesium Hydrox/Alum Hydrox 30 Ml Oral.Susp) 30 ml PO Q6H PRN PRN Reason: Heartburn/Nausea Albuterol Sulfate (Albuterol Sulfate 90 Mcg 8 Gm Inhaler) 2 puff INHALE Q6H PRN PRN Reason: for wheezing Albuterol Sulfate (Albuterol Sulfate (0.083%) 2.5 Mg/3 Ml Vial.Neb) 2.5 mg INHALE RTID [facility] Last Admin: 08/25/23 09:01 Dose: Not Given Amlodipine Besylate (Amlodipine Besylate 10 Mg Tablet) 10 mg PO BEDTIME [facility]; Protocol Last Admin: 08/24/23 20:46 Dose: 10 mg Anastrozole (Anastrozole 1 Mg Tablet) 1 mg PO DAILY [facility] Last Admin: 08/25/23 11:15 Dose: Not Given Ascorbic Acid (Ascorbic Acid 500 Mg Tablet) 500 mg PO Q48H [facility] Last Admin: 08/24/23 09:39 Dose: 500 mg Aspirin (Aspirin Enteric Coated 81 Mg Tablet.Dr) 81 mg PO DAILY [facility] Last Admin: 08/25/23 09:00 Dose: 81 mg Atorvastatin Calcium (Atorvastatin Calcium 40 Mg Tablet) 40 mg PO BEDTIME [facility] Last Admin: 08/24/23 20:46 Dose: 40 mg Cefuroxime Axetil (Cefuroxime Axetil 250 Mg Tablet) 250 mg PO BID [facility] Stop: 08/30/23 09:01 Last Admin: 08/25/23 09:00 Dose: 250 mg Clonazepam (Clonazepam 0.5 Mg Tablet) 0.5 mg PO BID PRN PRN Reason: moderate/severe anxiety Clotrimazole (Clotrimazole 1 % Cream 15 Gm Tube) 1 appl TOPICAL BID PRN; Protocol PRN Reason: Itchiness Docusate Sodium (Docusate Sodium 100 Mg Capsule) 100 mg PO BID@0900,1200 [facility] Last Admin: 08/25/23 09:01 Dose: 100 mg Doxepin HCl (Doxepin Hcl 10 Mg Capsule) 10 mg PO BEDTIME PRN PRN Reason: insomnia Last Admin: 08/24/23 22:52 Dose: 10 mg Empagliflozin (Empagliflozin 10 Mg Tablet) 10 mg PO DAILY [facility] Last Admin: 08/25/23 09:00 Dose: 10 mg Fluticasone/Umeclidinium/Vilanterol (Fluticasone/Umeclidinium/Vilanterol 200/62.5/25 Blst.W.Dev) 1 puff INHALE RDAILY [facility] Last Admin: 08/25/23 08:57 Dose: 1 puff Insulin Glargine (Insulin Glargine,Hum.Rec.Anlog 100 Unit/Ml 10 Ml Vial) 29 unit SUBCUT DAILY [facility] Last Admin: 08/25/23 09:01 Dose: Not Given Insulin Glargine (Insulin Glargine,Hum.Rec.Anlog 100 Unit/Ml 10 Ml Vial) 33 unit SUBCUT BEDTIME [facility] Last Admin: 08/24/23 20:43 Dose: 33 unit Losartan Potassium (Losartan Potassium 25 Mg Tablet) 25 mg PO DAILY [facility]; Protocol Last Admin: 08/25/23 09:01 Dose: 25 mg Magnesium Hydroxide (Milk Of Magnesia 30 Ml Oral.Susp) 30 ml PO DAILY PRN PRN Reason: Constipation Montelukast Sodium (Montelukast Sodium 10 Mg Tablet) 10 mg PO BEDTIME [facility] Last Admin: 08/24/23 20:47 Dose: 10 mg Patient Own ( Naloxegol [Movantik] 12.5 Mg Tablet) 12.5 mg PO DAILY [facility] Last Admin: 08/25/23 08:58 Dose: 12.5 mg Patient Own ( Plecanatide [ Trulance] 3 Mg Tablet) 3 mg PO DAILY [facility] Last Admin: 08/25/23 08:59 Dose: 3 mg Omeprazole (Omeprazole 20 Mg Capsule.Dr) 20 mg PO DAILY@0630 [facility] Last Admin: 08/25/23 06:09 Dose: 20 mg Oxycodone HCl (Oxycodone Hcl Immed Release 5 Mg Tablet) 5 mg PO QID PRN PRN Reason: Pain, Moderate(Pain Scale 4-6) Last Admin: 08/23/23 22:34 Dose: 5 mg Pregabalin (Pregabalin 75 Mg Capsule) 75 mg PO BID [facility] Last Admin: 08/25/23 09:01 Dose: 75 mg Senna (Sennosides 8.6 Mg Tablet) 17.2 mg PO BEDTIME PRN PRN Reason: constipation Sertraline HCl (Sertraline Hcl 100 Mg Tablet) 100 mg PO DAILY [facility] Last Admin: 08/25/23 09:00 Dose: 100 mg Tizanidine HCl (Tizanidine Hcl 4 Mg Tablet) 2 mg PO Q8H PRN PRN Reason: muscle spasm Torsemide (Torsemide 20 Mg Tablet) 40 mg PO DAILY [facility]; Protocol Last Admin: 08/25/23 09:00 Dose: 40 mg Ursodiol (Ursodiol 300 Mg Capsule) 600 mg PO BID [facility] Last Admin: 08/25/23 09:00 Dose: 600 mg Home Medications ?Medication ?Instructions ?Recorded ?Confirmed ?Last Taken ?Type anastrozole 1 mg tablet 1 tab PO DAILY 03/14/20 08/23/23 03/13/20 History aspirin 81 mg tablet,delayed 1 tab PO DAILY 03/14/20 08/23/23 03/13/20 History release oxycodone-acetaminophen 5 mg-325 1 tab PO QID PRN pain 03/14/20 08/23/23 03/13/20 History mg tablet docusate sodium 100 mg capsule 100 mg PO DIRECTED 04/21/20 08/23/23 Unknown History atorvastatin 40 mg tablet 40 mg PO BEDTIME 03/23/21 08/23/23 Unknown History sertraline 50 mg tablet 75 mg PO QAM 03/23/21 08/23/23 Unknown History torsemide 20 mg tablet 40 mg PO DAILY 03/23/21 08/23/23 Unknown History losartan 25 mg tablet 25 mg PO DAILY 09/14/21 08/23/23 Unknown History doxepin 10 mg capsule 10 mg PO BEDTIME PRN insomnia 09/23/21 08/23/23 Unknown History mirtazapine 15 mg tablet 15 mg PO BEDTIME 09/23/21 08/23/23 Unknown History clotrimazole 1 % topical cream See Rx Instructions .Route 10/07/21 08/23/23 Unknown History .COMPLEX PRN Itchiness sennosides 8.6 mg tablet (senna) 17.2 mg PO BEDTIME PRN constipation 03/31/22 08/23/23 Unknown History ascorbic acid (vitamin C) 500 mg 500 mg PO DIRECTED 04/29/22 08/23/23 Unknown History tablet (Vitamin C) albuterol sulfate 2.5 mg/3 mL 1 mg inhalation TID 08/23/23 08/23/23 Unknown History (0.083 %) solution for nebulization amlodipine 10 mg tablet (Norvasc) 10 mg PO BEDTIME 08/23/23 08/23/23 Unknown History dapagliflozin propanediol 10 mg 10 mg PO DAILY 08/23/23 08/23/23 Unknown History tablet (Farxiga) insulin aspart U-100 100 unit/mL See Rx Instructions .Route .COMPLEX 08/23/23 08/23/23 Unknown History (3 mL) subcutaneous pen (Novolog FlexPen U-100 Insulin aspart) insulin degludec 200 unit/mL (3 See Rx Instructions .Route .COMPLEX 08/23/23 08/23/23 Unknown History mL) subcutaneous pen (Tresiba FlexTouch U-200 insulin) plecanatide 3 mg tablet (Trulance) 3 mg PO DAILY 08/23/23 08/23/23 Unknown History pregabalin 75 mg capsule 75 mg PO BID 08/23/23 08/23/23 Unknown History tizanidine 2 mg tablet 2 mg PO Q8H PRN muscle spasm 08/23/23 08/23/23 Unknown History Physical Exam Vital Signs and Narrative: Vital Signs: Last Vital Signs Temp 98.2 F 08/25/23 06:00 Pulse 67 08/25/23 06:00 Resp 18 08/25/23 06:00 BP 157/71 H 08/25/23 06:00 Pulse Ox 95 08/25/23 06:00 O2 Del Method Room Air 08/25/23 06:00 BMI result Body Mass Index 31.2 Results Labs 08/25/23 07:37 08/25/23 07:36 Labs: Laboratory Results - last 24 hr 08/23/23 08/24/2324 19:02 10:17 12:23 MCV MCH MCHC RDW Plt Count MPV Immature Gran % (Auto) Neut % (Auto) Lymph % (Auto) [place] % (Auto) Eos % (Auto) Baso % (Auto) Lymph # (Auto) [place] # (Auto) Eos # (Auto) Baso # (Auto) Abs Immat Gran (auto) Absolute Neuts (auto) Absolute Nucleated RBC Nucleated RBC % (auto) Anion Gap Estim Creat Clear Calc Estimated GFR POC Glucose 220 H Fasting Glucose Estimat Average Glucose 174 Hemoglobin A1c % 7.7 H Calcium Total Bilirubin AST ALT Alkaline Phosphatase Total Protein Albumin Triglycerides Cholesterol LDL Cholesterol, Calc HDL Cholesterol Vitamin B12 Folate TSH Influenza Type A (PCR) NEGATIVE Influenza Type B (PCR) NEGATIVE RSV RNA Qual (PCR) NEGATIVE SARS-CoV-2 RNA (RT-PCR) NEGATIVE 08/24/23 08/24/23 08/25/23 16:01 20:23 06:04 MCV MCH MCHC RDW Plt Count MPV Immature Gran % (Auto) Neut % (Auto) Lymph % (Auto) [place] % (Auto) Eos % (Auto) Baso % (Auto) Lymph # (Auto) [place] # (Auto) Eos # (Auto) Baso # (Auto) Abs Immat Gran (auto) Absolute Neuts (auto) Absolute Nucleated RBC Nucleated RBC % (auto) Anion Gap Estim Creat Clear Calc Estimated GFR POC Glucose 77 154 H 61 Fasting Glucose Estimat Average Glucose Hemoglobin A1c % Calcium Total Bilirubin AST ALT Alkaline Phosphatase Total Protein Albumin Triglycerides Cholesterol LDL Cholesterol, Calc HDL Cholesterol Vitamin B12 Folate TSH Influenza Type A (PCR) Influenza Type B (PCR) RSV RNA Qual (PCR) SARS-CoV-2 RNA (RT-PCR) 08/25/23 08/25/23 08/25/23 07:36 07:37 11:12 MCV 79.9 L MCH 26.2 L MCHC 32.7 RDW 15.1 Plt Count 219 MPV 9.5 Immature Gran % (Auto) 0.6 H Neut % (Auto) 57.5 Lymph % (Auto) 25.5 [place] % (Auto) 10.4 Eos % (Auto) 5.0 H Baso % (Auto) 1.0 Lymph # (Auto) 1.3 [place] # (Auto) 0.5 Eos # (Auto) 0.3 Baso # (Auto) 0.1 Abs Immat Gran (auto) 0.03 Absolute Neuts (auto) 2.9 Absolute Nucleated RBC 0.000 Nucleated RBC % (auto) 0.0 Anion Gap 16 Estim Creat Clear Calc 27.7 Estimated GFR 34 POC Glucose 220 H Fasting Glucose 217 H Estimat Average Glucose 177 Hemoglobin A1c % 7.8 H Calcium 9.7 Total Bilirubin 0.5 AST 48 H ALT 34 H Alkaline Phosphatase 127 H Total Protein 8.2 H Albumin 3.8 Triglycerides 121 Cholesterol 99 LDL Cholesterol, Calc 40 HDL Cholesterol 35 L Vitamin B12 1627 H Folate 13.4 TSH 1.33 Influenza Type A (PCR) Influenza Type B (PCR) RSV RNA Qual (PCR) SARS-CoV-2 RNA (RT-PCR)
[2023-08-25] MEDS: Anastrozole 1 MG TABLET PO (11:25)
[2023-08-25] MEDS: Insulin Glargine,Hum.rec.anlog 100 UNIT/ML 10 ML VIAL 29 UNIT SUBCUT (11:25)
--- NOTE | 2023-08-25 11:44 | P.EN_ITS ---
Event Note Date of Service: 08/25/23 Event Note: Patient is a 67 female with PMH significant for asthma, HTN, HLD, insulin- dependent type 2 diabetes, ROLAN on CPAP, CKD, CHF, and pace maker in place who was admitted to [facility] for increasing depression with SI with attempt to cut herself. Hospitalist consult for insulin management and readjustment. Patient has experienced moments of hypoglycemia while hospital, including POC as low as 35 and 53. Patient was previously on Tresiba 42 units in the morning and 48 units at bedtime, but confirmed with pharmacy patient has not filled that prescription for well over a year. In the ED pt was started on Lantus 29 units in the morning and 33 units at bedtime. Patient's A1c currently 7.8. It is unclear if patient has been using any insulin at all, including her home sliding scale. Patient also prescribed Farxiga which we do not have on the formulary. Given patient likely has not been using daily long-acting insulin for quite some time, will stop all Lantus for now and cover patient only with sliding scale insulin. Encourage diabetic diet, and we will continue to follow for now and adjust insulin coverage as necessary. Time Spent With Patient Time: Total time managing care of this patient today ____ minutes.
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
--- NOTE | 2023-08-25 15:27 | P.DS_ITS ---
DS: Providers Provider Date of Service: 08/25/23 Date of admission: 08/24/23 12:07 Date of discharge: 08/25/23 Primary care physician: Angela Haley MD Consults: 08/24/23 14:36 Consult to Hospitalist Routine Comment: Consulting Provider: Hospitalist Reason For Exam: adjust high dose insulin regimen, hypoglicemia DS: Diagnosis Discharge Diagnosis (1) MDD (major depressive disorder), recurrent episode, moderate: Status: Acute (2) Adjustment disorder with depressed mood: Status: Acute DS: Medications Discharge Medications Home Medications: Home Medications ?Medication ?Instructions ?Recorded ?Confirmed anastrozole 1 mg tablet 1 tab PO DAILY 03/14/20 08/23/23 aspirin 81 mg tablet,delayed 1 tab PO DAILY 03/14/20 08/23/23 release oxycodone-acetaminophen 5 mg-325 1 tab PO QID PRN pain 03/14/20 08/23/23 mg tablet docusate sodium 100 mg capsule 100 mg PO DIRECTED 04/21/20 08/23/23 atorvastatin 40 mg tablet 40 mg PO BEDTIME 03/23/21 08/23/23 sertraline 50 mg tablet 75 mg PO QAM 03/23/21 08/23/23 torsemide 20 mg tablet 40 mg PO DAILY 03/23/21 08/23/23 losartan 25 mg tablet 25 mg PO DAILY 09/14/21 08/23/23 doxepin 10 mg capsule 10 mg PO BEDTIME PRN insomnia 09/23/21 08/23/23 mirtazapine 15 mg tablet 15 mg PO BEDTIME 09/23/21 08/23/23 clotrimazole 1 % topical cream See Rx Instructions .Route 10/07/21 08/23/23 .COMPLEX PRN Itchiness sennosides 8.6 mg tablet (senna) 17.2 mg PO BEDTIME PRN constipation 03/31/22 08/23/23 ascorbic acid (vitamin C) 500 mg 500 mg PO DIRECTED 04/29/22 08/23/23 tablet (Vitamin C) albuterol sulfate 2.5 mg/3 mL 1 mg inhalation TID 08/23/23 08/23/23 (0.083 %) solution for nebulization amlodipine 10 mg tablet (Norvasc) 10 mg PO BEDTIME 08/23/23 08/23/23 dapagliflozin propanediol 10 mg 10 mg PO DAILY 08/23/23 08/23/23 tablet (Farxiga) insulin aspart U-100 100 unit/mL See Rx Instructions .Route .COMPLEX 08/23/23 08/23/23 (3 mL) subcutaneous pen (Novolog FlexPen U-100 Insulin aspart) insulin degludec 200 unit/mL (3 See Rx Instructions .Route .COMPLEX 08/23/23 08/23/23 mL) subcutaneous pen (Tresiba FlexTouch U-200 insulin) plecanatide 3 mg tablet (Trulance) 3 mg PO DAILY 08/23/23 08/23/23 pregabalin 75 mg capsule 75 mg PO BID 08/23/23 08/23/23 tizanidine 2 mg tablet 2 mg PO Q8H PRN muscle spasm 08/23/23 08/23/23 Previous Rx's ?Medication ?Instructions ?Recorded montelukast 10 mg tablet 10 mg PO BEDTIME #30 tabs 09/12/22 Trelegy Ellipta 200 mcg-62.5 1 ea inhalation DAILY #60 ea 09/14/22 mcg-25 mcg powder for inhalation (bqenkswkgsb-gzzrmeook-bwwkuubo) esomeprazole magnesium 20 mg 20 mg PO DAILY #90 caps 03/20/23 capsule,delayed release naloxegol 12.5 mg tablet (Movantik) 12.5 mg PO QAM #60 tabs 07/17/23 ursodiol 500 mg tablet 500 mg PO BID #60 tabs 08/04/23 albuterol sulfate 90 mcg/actuation 2 puff inhalation Q6H PRN for 08/07/23 aerosol inhaler (Ventolin HFA) wheezing #18 grams Mental Status Exam Mental Status Exam Patient Appearance: Appropriate Patient Orientation: Person and Situation Level of Consciousness: Awake and Appropriate Patient Behavior: Appropriate and Cooperative Mood Description: Calm Affect Description: Constricted Ability to Follow Directions: Good Speech Pattern: Clear Hallucinations: None Delusions: Not Present Thought Process: Linear Thought Content: positive for Circumstantial Data Data Completed and Pending Completed studies during hospitalization [Text1]: 08/23/23 08/23/23 08/23/23 18:33 19:02 21:06 WBC 6.0 RBC 3.95 L Hgb 10.4 L Hct 31.1 L MCV 78.7 L MCH 26.3 L MCHC 33.4 RDW 14.9 Plt Count 187 MPV 9.2 L Immature Gran % (Auto) 0.5 H Neut % (Auto) 69.3 Lymph % (Auto) 16.1 L [place] % (Auto) 11.1 H Eos % (Auto) 2.5 Baso % (Auto) 0.5 Lymph # (Auto) 1.0 L [place] # (Auto) 0.7 Eos # (Auto) 0.2 Baso # (Auto) 0.0 Abs Immat Gran (auto) 0.03 Absolute Neuts (auto) 4.2 Absolute Nucleated RBC 0.000 Nucleated RBC % (auto) 0.0 Sodium 141 Potassium 3.8 Chloride 104 Carbon Dioxide 25 Anion Gap 16 BUN 27 H Creatinine 1.62 H Estim Creat Clear Calc 29.5 Estimated GFR 32 POC Glucose 35 L* Random Glucose 108 Fasting Glucose Estimat Average Glucose 174 Hemoglobin A1c % 7.7 H Calcium 9.5 Total Bilirubin 0.3 Direct Bilirubin 0.2 AST 45 H ALT 34 H Alkaline Phosphatase 127 H Total Protein 8.2 H Albumin 3.9 Triglycerides Cholesterol LDL Cholesterol, Calc HDL Cholesterol Vitamin B12 Folate TSH Urine Color Yellow Urine Appearance Cloudy Urine pH 6.5 Ur Specific [place] 1.015 Urine Protein Trace Urine Glucose (UA) >=1000 H Urine Ketones Negative Urine Blood Negative Urine Nitrite Negative Ur Leukocyte Esterase Moderate (2+) H Urine RBC 0-2 Urine WBC >50 H Ur Squamous Epith Cells >20 Urine Bacteria 4+ Hyaline Casts 0-2 Urine Opiates Screen Not Detected Urine Fentanyl Screen Not Detected Ur Barbiturates Screen Not Detected Ur Phencyclidine Scrn Not Detected Ur Amphetamines Screen Not Detected U Benzodiazepines Scrn Not Detected Urine Cocaine Screen Not Detected U Marijuana (THC) Screen Not Detected Influenza Type A (PCR) Influenza Type B (PCR) RSV RNA Qual (PCR) SARS-CoV-2 RNA (RT-PCR) 08/23/23 08/23/23 08/23/23 21:27 21:52 23:07 WBC RBC Hgb Hct MCV MCH MCHC RDW Plt Count MPV Immature Gran % (Auto) Neut % (Auto) Lymph % (Auto) [place] % (Auto) Eos % (Auto) Baso % (Auto) Lymph # (Auto) [place] # (Auto) Eos # (Auto) Baso # (Auto) Abs Immat Gran (auto) Absolute Neuts (auto) Absolute Nucleated RBC Nucleated RBC % (auto) Sodium Potassium Chloride Carbon Dioxide Anion Gap BUN Creatinine Estim Creat Clear Calc Estimated GFR POC Glucose 53 L* 101 144 H Random Glucose Fasting Glucose Estimat Average Glucose Hemoglobin A1c % Calcium Total Bilirubin Direct Bilirubin AST ALT Alkaline Phosphatase Total Protein Albumin Triglycerides Cholesterol LDL Cholesterol, Calc HDL Cholesterol Vitamin B12 Folate TSH Urine Color Urine Appearance Urine pH Ur Specific [place] Urine Protein Urine Glucose (UA) Urine Ketones Urine Blood Urine Nitrite Ur Leukocyte Esterase Urine RBC Urine WBC Ur Squamous Epith Cells Urine Bacteria Hyaline Casts Urine Opiates Screen Urine Fentanyl Screen Ur Barbiturates Screen Ur Phencyclidine Scrn Ur Amphetamines Screen U Benzodiazepines Scrn Urine Cocaine Screen U Marijuana (THC) Screen Influenza Type A (PCR) Influenza Type B (PCR) RSV RNA Qual (PCR) SARS-CoV-2 RNA (RT-PCR) 08/24/23 08/24/23 08/24/23 01:07 06:25 09:34 WBC RBC Hgb Hct MCV MCH MCHC RDW Plt Count MPV Immature Gran % (Auto) Neut % (Auto) Lymph % (Auto) [place] % (Auto) Eos % (Auto) Baso % (Auto) Lymph # (Auto) [place] # (Auto) Eos # (Auto) Baso # (Auto) Abs Immat Gran (auto) Absolute Neuts (auto) Absolute Nucleated RBC Nucleated RBC % (auto) Sodium Potassium Chloride Carbon Dioxide Anion Gap BUN Creatinine Estim Creat Clear Calc Estimated GFR POC Glucose 143 H 71 95 Random Glucose Fasting Glucose Estimat Average Glucose Hemoglobin A1c % Calcium Total Bilirubin Direct Bilirubin AST ALT Alkaline Phosphatase Total Protein Albumin Triglycerides Cholesterol LDL Cholesterol, Calc HDL Cholesterol Vitamin B12 Folate TSH Urine Color Urine Appearance Urine pH Ur Specific [place] Urine Protein Urine Glucose (UA) Urine Ketones Urine Blood Urine Nitrite Ur Leukocyte Esterase Urine RBC Urine WBC Ur Squamous Epith Cells Urine Bacteria Hyaline Casts Urine Opiates Screen Urine Fentanyl Screen Ur Barbiturates Screen Ur Phencyclidine Scrn Ur Amphetamines Screen U Benzodiazepines Scrn Urine Cocaine Screen U Marijuana (THC) Screen Influenza Type A (PCR) Influenza Type B (PCR) RSV RNA Qual (PCR) SARS-CoV-2 RNA (RT-PCR) 08/24/23 08/24/23 08/24/23 10:17 12:23 16:01 WBC RBC Hgb Hct MCV MCH MCHC RDW Plt Count MPV Immature Gran % (Auto) Neut % (Auto) Lymph % (Auto) [place] % (Auto) Eos % (Auto) Baso % (Auto) Lymph # (Auto) [place] # (Auto) Eos # (Auto) Baso # (Auto) Abs Immat Gran (auto) Absolute Neuts (auto) Absolute Nucleated RBC Nucleated RBC % (auto) Sodium Potassium Chloride Carbon Dioxide Anion Gap BUN Creatinine Estim Creat Clear Calc Estimated GFR POC Glucose 220 H 77 Random Glucose Fasting Glucose Estimat Average Glucose Hemoglobin A1c % Calcium Total Bilirubin Direct Bilirubin AST ALT Alkaline Phosphatase Total Protein Albumin Triglycerides Cholesterol LDL Cholesterol, Calc HDL Cholesterol Vitamin B12 Folate TSH Urine Color Urine Appearance Urine pH Ur Specific [place] Urine Protein Urine Glucose (UA) Urine Ketones Urine Blood Urine Nitrite Ur Leukocyte Esterase Urine RBC Urine WBC Ur Squamous Epith Cells Urine Bacteria Hyaline Casts Urine Opiates Screen Urine Fentanyl Screen Ur Barbiturates Screen Ur Phencyclidine Scrn Ur Amphetamines Screen U Benzodiazepines Scrn Urine Cocaine Screen U Marijuana (THC) Screen Influenza Type A (PCR) NEGATIVE Influenza Type B (PCR) NEGATIVE RSV RNA Qual (PCR) NEGATIVE SARS-CoV-2 RNA (RT-PCR) NEGATIVE 08/24/23 08/25/23 08/25/23 20:23 06:04 07:36 WBC RBC Hgb Hct MCV MCH MCHC RDW Plt Count MPV Immature Gran % (Auto) Neut % (Auto) Lymph % (Auto) [place] % (Auto) Eos % (Auto) Baso % (Auto) Lymph # (Auto) [place] # (Auto) Eos # (Auto) Baso # (Auto) Abs Immat Gran (auto) Absolute Neuts (auto) Absolute Nucleated RBC Nucleated RBC % (auto) Sodium 142 Potassium 4.2 Chloride 102 Carbon Dioxide 28 Anion Gap 16 BUN 21 H Creatinine 1.51 H Estim Creat Clear Calc 27.7 Estimated GFR 34 POC Glucose 154 H 61 Random Glucose Fasting Glucose 217 H Estimat Average Glucose 177 Hemoglobin A1c % 7.8 H Calcium 9.7 Total Bilirubin 0.5 Direct Bilirubin AST 48 H ALT 34 H Alkaline Phosphatase 127 H Total Protein 8.2 H Albumin 3.8 Triglycerides 121 Cholesterol 99 LDL Cholesterol, Calc 40 HDL Cholesterol 35 L Vitamin B12 Folate TSH 1.33 Urine Color Urine Appearance Urine pH Ur Specific [place] Urine Protein Urine Glucose (UA) Urine Ketones Urine Blood Urine Nitrite Ur Leukocyte Esterase Urine RBC Urine WBC Ur Squamous Epith Cells Urine Bacteria Hyaline Casts Urine Opiates Screen Urine Fentanyl Screen Ur Barbiturates Screen Ur Phencyclidine Scrn Ur Amphetamines Screen U Benzodiazepines Scrn Urine Cocaine Screen U Marijuana (THC) Screen Influenza Type A (PCR) Influenza Type B (PCR) RSV RNA Qual (PCR) SARS-CoV-2 RNA (RT-PCR) 08/25/23 08/25/23 07:37 11:12 WBC 5.0 RBC 4.13 L Hgb 10.8 L Hct 33.0 L MCV 79.9 L MCH 26.2 L MCHC 32.7 RDW 15.1 Plt Count 219 MPV 9.5 Immature Gran % (Auto) 0.6 H Neut % (Auto) 57.5 Lymph % (Auto) 25.5 [place] % (Auto) 10.4 Eos % (Auto) 5.0 H Baso % (Auto) 1.0 Lymph # (Auto) 1.3 [place] # (Auto) 0.5 Eos # (Auto) 0.3 Baso # (Auto) 0.1 Abs Immat Gran (auto) 0.03 Absolute Neuts (auto) 2.9 Absolute Nucleated RBC 0.000 Nucleated RBC % (auto) 0.0 Sodium Potassium Chloride Carbon Dioxide Anion Gap BUN Creatinine Estim Creat Clear Calc Estimated GFR POC Glucose 220 H Random Glucose Fasting Glucose Estimat Average Glucose Hemoglobin A1c % Calcium Total Bilirubin Direct Bilirubin AST ALT Alkaline Phosphatase Total Protein Albumin Triglycerides Cholesterol LDL Cholesterol, Calc HDL Cholesterol Vitamin B12 1627 H Folate 13.4 TSH Urine Color Urine Appearance Urine pH Ur Specific [place] Urine Protein Urine Glucose (UA) Urine Ketones Urine Blood Urine Nitrite Ur Leukocyte Esterase Urine RBC Urine WBC Ur Squamous Epith Cells Urine Bacteria Hyaline Casts Urine Opiates Screen Urine Fentanyl Screen Ur Barbiturates Screen Ur Phencyclidine Scrn Ur Amphetamines Screen U Benzodiazepines Scrn Urine Cocaine Screen U Marijuana (THC) Screen Influenza Type A (PCR) Influenza Type B (PCR) RSV RNA Qual (PCR) SARS-CoV-2 RNA (RT-PCR) 08/23/23 Unknown Urine clean catch - Urine santos top Urine Culture - Final DS: Summary Hospital Course Hospital Course: The patient is a 67-year-old [place] female with a past history of major depressive disorder who was brought into this facility for suicidal ideation in the context of finding out that her 50-year-old was cheating on her. Please see the HPI of the admission note for further details. On admission the patient was medically assessed and we found that she had a UTI. Also we decided to increased her Zoloft from 75 mg to 100 mg p.o. daily and she was started on antibiotics for the UTI. Even though the patient was upset and sad for the psychosocial stressors she was able to contract for safety and she adamantly denies any safety concerns. We had a family meeting with her daughter who lives with her and she assured us that she will be safe. Since there were no safety concerns discharge planning was discussed. The patient adamantly denies any suicidal saddle thoughts, she is future oriented and she is fully aware of her medical problems. Time spent discussing smoking cessation with patient: 3 to 10 minutes Status at Discharge Cognitive/behavioral status at discharge: At baseline Functional status at discharge: independent ambulation Overall status at discharge: patient is back to baseline Time Spent with Patient Time attestation: Total time managing care of this patient today _30___ minutes. Time spent: Less than 30 minutes Discharge Plan Discharge Anticipated Discharge Date/Time: 08/26/23 11:00 Patient Disposition: Home, Self-Care Discharge Diagnosis: Major depressive disorder recurrent episode severe Adjustment disorder UTI Referrals: Angela Luz MD [Primary Care Provider] - 09/11/23 1:00 pm (Your follow up appointment has been scheduled for Monday09/11/23 @ 1pm. ) Discharge Medications: New cefuroxime axetil 250 mg Tablet 250 mg PO BID 5 Days Qty: 10 0RF sertraline 100 mg Tablet 100 mg PO DAILY 30 Days Qty: 30 0RF Continued atorvastatin 40 mg tablet 40 mg PO BEDTIME 30 Days Qty: 30 0RF anastrozole 1 mg tablet 1 tab PO DAILY 30 Days Qty: 30 0RF sennosides 8.6 mg tablet 17.2 mg PO BEDTIME PRN (Reason: constipation) 30 Days Qty: 60 0RF torsemide 20 mg tablet 40 mg PO DAILY 30 Days Qty: 60 0RF tizanidine 2 mg tablet 2 mg PO Q8H PRN (Reason: muscle spasm) 30 Days Qty: 60 0RF albuterol sulfate 2.5 mg /3 mL (0.083 %) solution for nebulization 1 mg inhalation TID 30 Days Qty: 108 0RF doxepin 10 mg capsule 10 mg PO BEDTIME PRN (Reason: insomnia) 30 Days Qty: 30 0RF aspirin 81 mg tablet,delayed release (DR/EC) 1 tab PO DAILY 30 Days Qty: 30 0RF oxycodone-acetaminophen 5-325 mg tablet 1 tab PO QID PRN (Reason: pain) 14 Days Qty: 28 0RF ascorbic acid (vitamin C) 500 mg tablet 500 mg PO DIRECTED 30 Days Qty: 30 0RF Rx Instructions: Every other day losartan 25 mg tablet 25 mg PO DAILY 30 Days Qty: 30 0RF docusate sodium 100 mg capsule 100 mg PO DIRECTED 30 Days Qty: 30 0RF Rx Instructions: Take in the morning and at noon montelukast 10 mg tablet 10 mg PO BEDTIME Qty: 30 11RF mirtazapine 15 mg tablet 15 mg PO BEDTIME 30 Days Qty: 30 0RF albuterol sulfate 90 mcg/actuation HFA aerosol inhaler 2 puff inhalation Q6H PRN (Reason: for wheezing) Qty: 18 11RF clotrimazole 1 % cream See Rx Instructions .ROUTE .COMPLEX PRN (Reason: Itchiness) 30 Days Qty: 5 0RF Rx Instructions: Apply topically to arms and feet for itchiness esomeprazole magnesium 20 mg capsule,delayed release(DR/EC) 20 mg PO DAILY Qty: 90 1RF Rx Instructions: Before breakfast insulin aspart U-100 [Novolog FlexPen U-100 Insulin] 100 unit/mL (3 mL) insulin pen See Rx Instructions .ROUTE .COMPLEX 30 Days Qty: 10 0RF Rx Instructions: INJECT 30 UNITS SUBCUTANEOUSLY BEFORE BREAKFAST AND BEFORE LUNCH AND INJECT 40 UNITS SUBCUTANEOUSLY BEFORE SUPPER ursodiol 500 mg tablet 500 mg PO BID Qty: 60 3RF pregabalin 75 mg capsule 75 mg PO BID 30 Days Qty: 60 0RF insulin degludec [Tresiba FlexTouch U-200] 200 unit/mL (3 mL) insulin pen See Rx Instructions .ROUTE .COMPLEX 30 Days Qty: 10 0RF Rx Instructions: INJECT 42 UNITS SUBCUTANEOUSLY EVERY MORNING AND 48 UNITS SUBCUTANEOUSLY EVERY EVENING dapagliflozin propanediol [Farxiga] 10 mg tablet 10 mg PO DAILY 30 Days Qty: 30 0RF Movantik 12.5 mg tablet 12.5 mg PO QAM Qty: 60 1RF Rx Instructions: must be taken on empty stomach; no food 1 hr after or 2-3 hrs before dose Trulance 3 mg tablet 3 mg PO DAILY 30 Days Qty: 30 0RF Trelegy Ellipta 200-62.5-25 mcg blister with device 1 ea inhalation DAILY Qty: 60 11RF Changed amlodipine [Norvasc] 10 mg tablet 10 mg PO BEDTIME 30 Days Qty: 30 0RF Discontinued sertraline 50 mg tablet 75 mg PO QAM Discharge Orders: Discharge Order (Routine); Ordered 08/26/23 Ordered By: Evgeny Whiting Diet: Diabetic diet Activity on Discharge: As tolerated Stand Alone Forms: Patient Portal Discharge page Print Language: Latvian Care Plan Goals: Care plan goals achieved in this admission Health Concerns: Continue with regular primary care physician at [facility] Plan of Treatment: Continue medication management at the [facility] in [place] with also psychotherapy. Assessment: Elderly [place] female with a past history of major depressive disorder who was brought into the facility after she disclosed suicidal ideation after finding out that her of 50 years was cheating on her. The patient was assessed by crisis and transferring to this facility for stabilization. At this moment the patient does not have any suicidal thoughts she is very upset but able to cope assertively. We found out that she had a UTI we started antibiotics. Also we increase the Zoloft up to 100 mg p.o. daily to target d epression. No safety concerns at this moment
[2023-08-25 16:18] LABS: Glucose, Whole Blood 258 mg/dL (60-115)
--- NOTE | 2023-08-25 16:37 | PC.NURSE ---
POC before dinner 258. No lispro orders. Provider notified.
[2023-08-25 18:00] VITALS: BP 137/65; PULSE 65; RESP 16; TEMP 36.2; O2SAT 97
[2023-08-25 20:08] LABS: Glucose, Whole Blood 221 mg/dL (60-115)
[2023-08-25] MEDS: amLODIPine Besylate 10 MG TABLET PO (21:24)
[2023-08-25] MEDS: Atorvastatin Calcium 40 MG TABLET PO (21:24)
[2023-08-25] MEDS: Montelukast Sodium 10 MG TABLET PO (21:25)
[2023-08-26 06:00] VITALS: BP 160/72; PULSE 76; RESP 18; TEMP 36.9; O2SAT 97
[2023-08-26 06:10] LABS: Glucose, Whole Blood 51 mg/dL (60-115)
[2023-08-26] MEDS: Omeprazole 20 MG CAPSULE.DR PO (06:13)
[2023-08-26 06:41] LABS: Glucose, Whole Blood 115 mg/dL (60-115)
[2023-08-26] MEDS: Anastrozole 1 MG TABLET PO (08:51)
[2023-08-26] MEDS: Losartan Potassium 25 MG TABLET PO (08:52)
[2023-08-26] MEDS: Aspirin Enteric Coated 81 MG TABLET.DR PO (08:53)
[2023-08-26] MEDS: Pregabalin 75 MG CAPSULE PO (08:53)
[2023-08-26] MEDS: Sertraline HCL 100 MG TABLET PO (08:53)
[2023-08-26] MEDS: UrsodioL 300 MG CAPSULE 600 MG PO (08:53)
[2023-08-26] MEDS: Docusate Sodium 100 MG CAPSULE PO (08:53)
[2023-08-26] MEDS: Empagliflozin 10 MG TABLET PO (08:53)
[2023-08-26] MEDS: Ascorbic Acid 500 MG TABLET PO (08:54)
[2023-08-26] MEDS: cefuroxime axetiL 250 MG TABLET PO (08:54)
[2023-08-26] MEDS: Torsemide 20 MG TABLET 40 MG PO (09:15)
[2023-08-26] MEDS: Fluticasone/Umeclidinium/Vilanterol 200/62.5/25 BLST.W.DEV 1 PUFF INHALE (09:38)
--- NOTE | 2023-08-26 11:10 | PC.NURSE ---
Patient aware of discharge, reported readines to be discharged. D/C instructions, education on medications, appointments given to patient and her daughter Kareen Kiser, who translated information to the patient. Angela took her belongings. Left the floor at 10:52 accompanied by two daughters and pt's .
--- NOTE | 2023-08-26 11:16 | P.PNPSI_ITS ---
Subjective Subjective Date of Service: 08/26/23 Reason For Visit: SI Subjective Notes: Conditional Voluntary Interim History: Pt is awake, ambulatory, prepared for family to transport her home after discharge. We met with [facility] [place]. Pt reviewed precipitants to her admission, satisfaction with her treatment and the support received from her team. She is alert, oriented, denies SI, HI, plan or intent, denies depressive sx, denies perceptual alterations or fears at this time. She reports sleep and appetite are adequate to her usual pattern at home. She feels prepared to leave and is aware she may call and/or return as needed. Medication Compliance: Yes Side effects from medications: No Review of Systems Acute medical concerns: No Medical Review of Systems: unchanged Review of Systems Review of Systems Yes all other systems are reviewed and are negative Mental Status Exam Mental Status Exam Patient Appearance: Appropriate Patient Orientation: Person and Situation Level of Consciousness: Awake and Appropriate Patient Behavior: Appropriate and Cooperative Mood Description: Calm Affect Description: Constricted Ability to Follow Directions: Good Speech Pattern: Clear Hallucinations: None Delusions: Not Present Thought Process: Linear Thought Content: positive for Circumstantial Diagnostics Vital Signs (24Hr): Vital Signs - 24 hr 08/25/23 18:00 08/26/23 06:00 Temperature 97.1 F 98.5 F Pulse Rate 65 76 Respiratory Rate 16 18 Blood Pressure 137/65 160/72 H Pulse Oximetry 97 97 Oxygen Delivery Method Room Air Room Air BMI result Body Mass Index 31.2 Labs 08/25/23 07:37 08/25/23 07:36 Labs: Laboratory Results - last 48 hr 08/23/23 08/24/23 08/24/23 19:02 10:17 12:23 WBC RBC Hgb Hct MCV MCH MCHC RDW Plt Count MPV Immature Gran % (Auto) Neut % (Auto) Lymph % (Auto) [place] % (Auto) Eos % (Auto) Baso % (Auto) Lymph # (Auto) [place] # (Auto) Eos # (Auto) Baso # (Auto) Abs Immat Gran (auto) Absolute Neuts (auto) Absolute Nucleated RBC Nucleated RBC % (auto) Sodium Potassium Chloride Carbon Dioxide Anion Gap BUN Creatinine Estim Creat Clear Calc Estimated GFR POC Glucose 220 H Fasting Glucose Estimat Average Glucose 174 Hemoglobin A1c % 7.7 H Calcium Total Bilirubin AST ALT Alkaline Phosphatase Total Protein Albumin Triglycerides Cholesterol LDL Cholesterol, Calc HDL Cholesterol Vitamin B12 Folate TSH Influenza Type A (PCR) NEGATIVE Influenza Type B (PCR) NEGATIVE RSV RNA Qual (PCR) NEGATIVE SARS-CoV-2 RNA (RT-PCR) NEGATIVE 08/24/23 08/24/23 08/25/23 16:01 20:23 06:04 WBC RBC Hgb Hct MCV MCH MCHC RDW Plt Count MPV Immature Gran % (Auto) Neut % (Auto) Lymph % (Auto) [place] % (Auto) Eos % (Auto) Baso % (Auto) Lymph # (Auto) [place] # (Auto) Eos # (Auto) Baso # (Auto) Abs Immat Gran (auto) Absolute Neuts (auto) Absolute Nucleated RBC Nucleated RBC % (auto) Sodium Potassium Chloride Carbon Dioxide Anion Gap BUN Creatinine Estim Creat Clear Calc Estimated GFR POC Glucose 77 154 H 61 Fasting Glucose Estimat Average Glucose Hemoglobin A1c % Calcium Total Bilirubin AST ALT Alkaline Phosphatase Total Protein Albumin Triglycerides Cholesterol LDL Cholesterol, Calc HDL Cholesterol Vitamin B12 Folate TSH Influenza Type A (PCR) Influenza Type B (PCR) RSV RNA Qual (PCR) SARS-CoV-2 RNA (RT-PCR) 08/25/23 08/25/23 08/25/23 07:36 07:37 11:12 WBC 5.0 RBC 4.13 L Hgb 10.8 L Hct 33.0 L MCV 79.9 L MCH 26.2 L MCHC 32.7 RDW 15.1 Plt Count 219 MPV 9.5 Immature Gran % (Auto) 0.6 H Neut % (Auto) 57.5 Lymph % (Auto) 25.5 [place] % (Auto) 10.4 Eos % (Auto) 5.0 H Baso % (Auto) 1.0 Lymph # (Auto) 1.3 [place] # (Auto) 0.5 Eos # (Auto) 0.3 Baso # (Auto) 0.1 Abs Immat Gran (auto) 0.03 Absolute Neuts (auto) 2.9 Absolute Nucleated RBC 0.000 Nucleated RBC % (auto) 0.0 Sodium 142 Potassium 4.2 Chloride 102 Carbon Dioxide 28 Anion Gap 16 BUN 21 H Creatinine 1.51 H Estim Creat Clear Calc 27.7 Estimated GFR 34 POC Glucose 220 H Fasting Glucose 217 H Estimat Average Glucose 177 Hemoglobin A1c % 7.8 H Calcium 9.7 Total Bilirubin 0.5 AST 48 H ALT 34 H Alkaline Phosphatase 127 H Total Protein 8.2 H Albumin 3.8 Triglycerides 121 Cholesterol 99 LDL Cholesterol, Calc 40 HDL Cholesterol 35 L Vitamin B12 1627 H Folate 13.4 TSH 1.33 Influenza Type A (PCR) Influenza Type B (PCR) RSV RNA Qual (PCR) SARS-CoV-2 RNA (RT-PCR) 08/25/23 08/25/23 08/26/23 15:57 19:58 06:06 WBC RBC Hgb Hct MCV MCH MCHC RDW Plt Count MPV Immature Gran % (Auto) Neut % (Auto) Lymph % (Auto) [place] % (Auto) Eos % (Auto) Baso % (Auto) Lymph # (Auto) [place] # (Auto) Eos # (Auto) Baso # (Auto) Abs Immat Gran (auto) Absolute Neuts (auto) Absolute Nucleated RBC Nucleated RBC % (auto) Sodium Potassium Chloride Carbon Dioxide Anion Gap BUN Creatinine Estim Creat Clear Calc Estimated GFR POC Glucose 258 H 221 H 51 L* Fasting Glucose Estimat Average Glucose Hemoglobin A1c % Calcium Total Bilirubin AST ALT Alkaline Phosphatase Total Protein Albumin Triglycerides Cholesterol LDL Cholesterol, Calc HDL Cholesterol Vitamin B12 Folate TSH Influenza Type A (PCR) Influenza Type B (PCR) RSV RNA Qual (PCR) SARS-CoV-2 RNA (RT-PCR) 08/26/23 06:36 WBC RBC Hgb Hct MCV MCH MCHC RDW Plt Count MPV Immature Gran % (Auto) Neut % (Auto) Lymph % (Auto) [place] % (Auto) Eos % (Auto) Baso % (Auto) Lymph # (Auto) [place] # (Auto) Eos # (Auto) Baso # (Auto) Abs Immat Gran (auto) Absolute Neuts (auto) Absolute Nucleated RBC Nucleated RBC % (auto) Sodium Potassium Chloride Carbon Dioxide Anion Gap BUN Creatinine Estim Creat Clear Calc Estimated GFR POC Glucose 115 Fasting Glucose Estimat Average Glucose Hemoglobin A1c % Calcium Total Bilirubin AST ALT Alkaline Phosphatase Total Protein Albumin Triglycerides Cholesterol LDL Cholesterol, Calc HDL Cholesterol Vitamin B12 Folate TSH Influenza Type A (PCR) Influenza Type B (PCR) RSV RNA Qual (PCR) SARS-CoV-2 RNA (RT-PCR) Medications Allergies Allergies Allergy/AdvReac Type Severity Reaction Status Date / Time tramadol [TRAMADOL] Allergy Severe THROAT, Verified 07/31/23 10:09 LIPS SWELLING, latex [LATEX] Allergy Intermediate RASH Verified 07/31/23 10:09 Assessment & Plan Assessment & Plan (1) MDD (major depressive disorder), recurrent episode, moderate: Status: Acute Code(s): F33.1 - Major depressive disorder, recurrent, moderate (2) Adjustment disorder with depressed mood: Status: Acute Code(s): F43.21 - Adjustment disorder with depressed mood Plan Mrs. Dominguez is a 67 year-old woman who was brought via EMS after daughter called police due to pt threatening to OD on her medications in setting of learning that her of 50 years is having an affair. Pt cut her left forearm superficially the day before being brought to the hospital. Pt continues to present as upset with daughter from calling the police and apparently was holding a knife to the daughter while she was calling the police asking her to hang up the phone. Pt continues to present with significant emotional dysregulation and still upset with daughter. We discussed risks, benefits and alternative treatment options. continue sertraline. Her BS has been low and she is on a high dose of humalog and lispro. A1C 7.7% today. hospitalist consult ordered to adjust insulin will hold lispro for now. PLAN 1. Admit to S1, Sect 12b, 15 minutes checks for safety 2. hospitalist consult due to hypoglecemia and high dose humalog and lispro 3. obtain collateral information 4. Aftercare planning. Informed Consent: understands Reason for continued inpatient stay Substantial Risk for: stable for discharge Time Spent With Patient Time: Total time managing care of this patient today ____ minutes.
[2023-10-19 10:45] LABS: Glucose, Whole Blood 36 mg/dL (60-115)
== END 2023-08-26 11:10 | disposition home or self-care (01) | DRG 885 ==
LOC: HO.ED 18:44 → HO.PGERI 08-24 13:55
PROVIDERS: Social Worker; Admitting Provider Psychiatry & Neurology Psychiatry; Emergency Provider Emergency Medicine; PCP Internal Medicine; Visit Provider Psychiatry & Neurology Psychiatry
DX: F33.1 Major depressive disorder, recurrent, moderate (principal); R45.851 Suicidal ideations; N39.0 Urinary tract infection, site not specified; I13.0 Hypertensive heart and chronic kidney disease with heart failure and stage 1 through stage 4 chronic kidney disease, or unspecified chronic kidney disease; E11.42 Type 2 diabetes mellitus with diabetic polyneuropathy; E78.5 Hyperlipidemia, unspecified; F43.21 Adjustment disorder with depressed mood; G47.33 Obstructive sleep apnea (adult) (pediatric); E11.22 Type 2 diabetes mellitus with diabetic chronic kidney disease; N18.9 Chronic kidney disease, unspecified; I50.9 Heart failure, unspecified; Z95.0 Presence of cardiac pacemaker; Z87.891 Personal history of nicotine dependence; Z79.4 Long term (current) use of insulin; Z79.82 Long term (current) use of aspirin; Z79.899 Other long term (current) drug therapy
CPT/HCPCS: 0241U; 36415; 80048; 80053; 80061; 80076; 80307; 81001; 82607; 82746; 82947; 83036; 84443; 85025; 87086; 94660; 99285

== ENCOUNTER → 2023-08-24 12:07 | Outpatient (BNV) | payer OTHER, SELFPAY | PROVIDERS: Admitting Provider Psychiatry & Neurology Psychiatry; Emergency Provider Emergency Medicine; PCP Internal Medicine; Visit Provider Social Worker | DX: F33.1 Major depressive disorder, recurrent, moderate (principal); F43.21 Adjustment disorder with depressed mood | CPT/HCPCS: 90792; 99232; 99238; 99499 ==

== ENCOUNTER 2023-10-13 09:27 | Outpatient (AMB) | payer MEDICARE, MEDICAID, SELFPAY ==
--- NOTE | 2023-10-13 09:40 | A.OFFVIS_ITS ---
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 Apparently her respiratory status has been worsening for the last several years.? She did not have asthma as a child.? Later on in life she started developing asthma like symptoms.? She was started on respiratory therapy.? However, with the current respiratory regimen including Symbicort and her allergy medication and her rescue inhaler she still having shortness of breath.? About a year ago she was diagnosed with breast cancer and did undergo a lumpectomy with radiation therapy.? Currently she is on hormonal therapy.? Appears to have recovered well from that event.? The patient does have lower extremity edema and does have a cardiac condition.? In the meantime the patient has not had any allergy testing or any pulmonary function studies.? She did have a chest x-ray back in April 2020 which I personally reviewed with them.? It appears that she had increased cardiac size but otherwise some postop changes to her right breast.? No evidence of any acute lung disease.? The patient also had blood work at some point which reviewed demonstrating some de gree of eosinophilia bringing up the possibility of allergies.? On further questioning she states she has rugs at home.? She denies any past.? She does have a small dog in the house that she has had for about a year.? At this point will try to optimize respiratory therapy likely does have a known asthma component.? However it is likely that her shortness of breath is multifactorial.? Will request additional blood work in addition to her pulmonary function studies. 09/26/2022 the patient is here for a pulmonary up visit. The patient overall is doing well. She continues respiratory therapy with good response. Has not had her to use her rescue inhaler. She does complaint of some right-sided flank discomfort. Denies any pleuritic component. The pain is [id number] severity and is intermittent. Right now it she does not feel it. Will have her get a chest x-ray to make sure. In the meantime she continues use her CPAP every night CPAP therapy continues to be affecting beneficial. She gets supplies regularly. She does use it for more than 4 hours a night. Since we last spoke she has not required any prednisone. She is grieving the loss of her sister and also her knees. This has been very hard for her. 10/13/2023 the patient is here for a pulmonary follow-up visit. The patient overall has been doing well from a respiratory status. Continue the Trelegy inhaler. She does have a rescue inhaler but she typically does not have to use it more than twice a week. She has not had any recent flare-ups. Has not required any prednisone. The patient also has been using the CPAP. The CPAP therapy has been affecting beneficial. She does use it for more than 4 hours a night. She does need to get supplies so therefore I will send a script over to her [employer], [employer]. In the meantime she has struggling with the separation of her of 51 years. Been significant stress for her and her family. 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 Dyslipidemia Diabetic nephropathy associated with type 2 diabetes mellitus Diabetic retinopathy associated with type 2 diabetes mellitus Obstructive sleep apnea on CPAP Other and unspecified hyperlipidemia Essential hypertension Type 2 diabetes mellitus with unspecified complications GERD (gastroesophageal reflux disease) (~05/18/23) Breast cancer Depression Diabetes mellitus, type 2 Asthma Surgical History Hx of colonoscopy History of esophagogastroduodenoscopy (EGD) History of total abdominal hysterectomy History of cholecystectomy History of shoulder surgery History of 3 sections History of permanent cardiac pacemaker placement Family History Father Diabetes Brother Diabetes Sister Diabetes Mother No known problems Social History Household Members: Spouse and Family Housing: Apartment Do you presently have visiting nurse or other home services: No Alcohol intake: never Patient Tobacco Use Status: Former Tobacco user Tobacco use type: Cigarette Years Smoked: 12 years e-Cigarette/Vaping Use: Former Use Second Hand Smoke Exposure: No service: No Current occupational status: disabled Sexual orientation: Straight/Heterosexual Review of Systems Const Denies night sweats ENT Denies change in voice, Denies mouth pain, Reports nasal congestion and Reports nasal discharge Card Denies chest pain and Reports dyspnea on exertion Resp Denies chest congestion, Reports cough, Reports dyspnea on exertion and Denies wheezing GI Denies abdominal pain Musc Denies no additional complaints Neuro Denies Neuro-related abnormal movements Psych Denies no additional complaints Massimo/Lymph Denies easy bleeding and Denies lymphadenopathy Aller/Immun Denies wheezing Physical Exam Vital Signs: Last Vital Signs Pulse 64 10/13/23 09:41 Pulse Ox 98 10/13/23 09:41 Oxygen Delivery Method Room Air 10/13/23 09:41 BMI result Body Mass Index 32.3 Const General: alert Neck Neck: Yes normal visual inspection, Yes full ROM and Yes no lymphadenopathy Chest Chest palpation & inspection: normal inspection of the chest and tenderness (site of recent PM) pectoral muscle Resp Auscultation: no rales, no rhonchi and diminished lung sounds Cardio Rate: regular rate Rhythm: regular rhythm Heart sounds: S1 normal heart sound present and S2 normal heart sound present GI Palpation (GI): Soft to palpation and nontender Auscultation: normal bowel sounds Assessment & Plan Assessment & Plan (1) Asthma: Code(s): J45.909 - Unspecified asthma, uncomplicated Category: Medical Qualifiers: Asthma complication type: uncomplicated Asthma persistence: persistent Asthma severity: moderate Qualified Code(s): J45.40 - Moderate persistent asthma, uncomplicated (2) Dyspnea: Code(s): R06.00 - Dyspnea, unspecified Category: Medical Qualifiers: Dyspnea type: dyspnea on exertion Qualified Code(s): R06.00 - Dyspnea, unspecified (3) Obstructive sleep apnea on CPAP: Code(s): G47.33 - Obstructive sleep apnea (adult) (pediatric); Z99.89 - Dependence on other enabling machines and devices Category: Medical (4) Chronic restrictive lung disease: Code(s): J98.4 - Other disorders of lung Category: Medical Plan Continue Trelegy 200 mcg Continue singulair Continue CPAP therapy Follow-up in 8-12 months Coding Level of Care Code Est Pt Level 4 (15475) Diagnoses Moderate persistent asthma without complication J45.40 Asthma complication type: uncomplicated Asthma persistence: persistent Asthma severity: moderate Dyspnea on exertion R06.00 Dyspnea type: dyspnea on exertion Obstructive sleep apnea on CPAP G47.33; Z99.89 Chronic restrictive lung disease J98.4 Time Spent (min) 16
[2023-10-13 09:41] VITALS: PULSE 64; O2SAT 98; BMI 32.3
== END 2023-10-13 09:55 | disposition home or self-care (01) ==
PROVIDERS: PCP Internal Medicine; Visit Provider Hospitalist
DX: J45.40 Moderate persistent asthma, uncomplicated (principal); R06.00 Dyspnea, unspecified; G47.33 Obstructive sleep apnea (adult) (pediatric); Z99.89 Dependence on other enabling machines and devices; J98.4 Other disorders of lung
CPT/HCPCS: 99214

== ENCOUNTER → 2023-10-13 09:27 | Outpatient (BNVA) | payer MEDICARE, MEDICAID, SELFPAY | PROVIDERS: PCP Internal Medicine; Visit Provider Hospitalist | DX: J45.40 Moderate persistent asthma, uncomplicated (principal); R06.00 Dyspnea, unspecified; G47.33 Obstructive sleep apnea (adult) (pediatric); J98.4 Other disorders of lung; Z99.89 Dependence on other enabling machines and devices | CPT/HCPCS: 99212 ==

== ENCOUNTER 2023-11-09 09:26 | Outpatient (REF) | payer OTHER, SELFPAY ==
[2023-11-09 12:23] LABS: Anion Gap 12 (12-20); Blood Urea Nitrogen 32 mg/dL (9-16); Calcium 9.2 mg/dL (8.4-10.2); Carbon Dioxide 25 mmol/L (22-29); Chloride 109 mmol/L (96-108); Estimated Glomerular Filt Rate 41; Glucose Random 167 mg/dL (60-115); Potassium 3.4 mmol/L (3.3-5.1); Sodium 143 mmol/L (135-145)
== END 2023-11-09 09:27 | disposition home or self-care (01) ==
LOC: HO.HHCL 09:26
PROVIDERS: Visit Provider Internal Medicine
DX: I10 Essential (primary) hypertension (principal)
CPT/HCPCS: 36415; 80048

== ENCOUNTER 2023-11-20 20:35 | Emergency (ER) | payer OTHER, SELFPAY ==
[2023-11-20 21:11] VITALS: BP 154/36; PULSE 62; RESP 20; TEMP 36.8; O2SAT 97; BMI 30.7
[2023-11-20 21:20] LABS: Glucose, Whole Blood 47 mg/dL (60-115)
[2023-11-20 21:31] LABS: MANUAL DIFF FLAG NO
[2023-11-20 21:32] LABS: Basophils Percent Auto 0.5 % (0-2); Eosinophils Absolute Auto 0.2 X10*3/uL (0.0-0.4); Eosinophils Percent Auto 2.1 % (0-4); Hematocrit 28.7 % (37.0-47.0); Hemoglobin 9.7 g/dl (12.0-16.0); Imm Gran Abs Auto 0.03 X10*3/uL (0.00-0.03); Imm Gran Pct Auto 0.4 % (0.0-0.4); Lymphocytes Absolute Auto 1.7 X10*3/uL (1.2-4.9); Mean Corpuscular HGB Conc 33.8 g/dl (31.0-35.0); Mean Corpuscular Hemoglobin 25.9 pg (27.0-33.0); Mean Corpuscular Volume 76.7 fL (80.0-98.0); Mean Platelet Volume 9.3 fL (9.4-12.3); Monocytes Absolute Auto 0.9 X10*3/uL (0.1-1.2); Neutrophils Absolute Auto 5.6 x10*3/uL (2.0-8.3); Platelet Count 219 X10*3/uL (160-400); Red Blood Count 3.74 X10*6/uL (4.20-5.50); Red Cell Distribution Width 15.6 % (11.0-16.0); White Blood Count 8.4 X10*3/uL (4.8-10.8)
[2023-11-20 21:45] LABS: Glucose, Whole Blood 44 mg/dL (60-115)
[2023-11-20] MEDS: Dextrose 10 % 250 ML 750 ML IV (21:50)
--- OUTSIDE RECORDS SUMMARY | 2023-11-20 21:51 | XMS_ITS | Patient Health Record ---
Author Organization [facility] liance Address [address] [place] [address] Care Team Providers Care Valve Fitter Name Role Phone Angela Luz Primary Care Provider Nehal Skinner Unavailable [phone] Clinical, Operations Unavailable Unavailable Amari Villavicencio Unavailable [phone] Ramy Guerrero Unavailable [phone] ALLERGIES Allergen (clinical drug ingredient) Drug/Non Drug Allergy documented on EMR Reaction Allergy Type Onset Date Status Adhesive rash Allergy Active Latex Latex Unknown Allergy Active tramadol Tramadol lip swelling Drug Allergy Acti ve REASON FOR REFERRAL No Information MEDICATIONS Medication SIG (Take, Route, Frequency, Duration) Notes Start Date End Date Status Trelegy Ellipta 200-62.5-25 MCG/INH 1 puff Inhalation Once a day Active Ventolin HFA 108 (90 Base) MCG/ACT 1 puff as needed Inhalation every 4 hrs Active Vitamin C 500 MG 1 CAP Orally daily Active Lactulose 10 GM/15ML 15 mL as needed Orally Once a day reports not taking Not-Taking Naloxegol Oxalate 12.5 MG 1 tablet in the morning Orally Once a day reports not taking Not-Taking Baqsimi One Pack reports not taking Not-Taking Carvedilol 6.25 MG 1 tablet with food Orally Twice a day reports not taking Not-Taking Furosemide 20 MG 3 Tablets Orally Once a day reports not taking Not-Taking amLODIPine Besylate 10 MG 1 tablet Orally Once a day Active Gabapentin 400 MG 1 capsule Orally 3 X daily reports not taking Not-Taking Anastrozole 1 MG 1 tablet Orally Once a day Active Omeprazole 20 MG 1 capsule 30 minutes before morning meal Orally Once a day reports not taking Not-Taking Albuterol Sulfate (2.5 MG/3ML) 0.083% 3 mL as needed Inhalation Three times a day Active Aspirin Adult Low Dose 81 MG 1 tablet Orally Once a day Active Cyanocobalamin 1000 MCG 1 tablet Orally Once a day reports mot taking Not-Taking Atorvastatin Calcium 40 MG 1 tablet Orally Once a day Active NovoLOG FlexPen 100 UNIT/ML Per sliding scale - 30-40 units as directed Subcutaneous 3 times a day with meals 06/29/2021 Active Plecanatide 3 MG 1 tablet Orally Once a day Active Tresiba FlexTouch 200 UNIT/ML 42 in AM 48 in PM Subcutaneous Daily Reports taking 42 units in the AM and 48 in the evening Active Victoza 18 MG/3ML 1 X Daily Subcutaneous At Night 1.8 MG/0.3 ML 09/15/2021 Not-Taking Vitamin B 12 100 MCG 1 tablet Orally Once a day reports not taking Not-Taking Docusate Sodium 100 MG 1 capsule Orally TWICE A DAY Active Ursodiol 500 MG 1 tablet Orally Twice a day Active Doxepin HCl 10 MG 1 capsule at bedtime as needed Orally Once a day Active Trulance 3 MG 1 tablet Orally Once a day Active Esomeprazole Magnesium 20 MG 1 capsule Orally Once a day Active Triamcinolone Acetonide 0.1 % 1 application Externally Twice a day Active Farxiga 10 MG 1 tablet Orally Once a day Active Senna 8.6 MG 2 tablets at bedtime as needed Orally Once a day Active Losartan Potassium 25 MG 1 tablet Orally Once a day Active Pregabalin 75 MG 1 capsule Orally Twice a day reports taking as needed - education provided Active Mirtazapine 15 MG 1 tablet at bedtime Orally Once a day CURRENTLY NOT IN BLISTER PACK Active Clotrimazole Anti-Fungal 1 % 1 application Externally Twice a day Active Montelukast Sodium 10 MG 1 tablet Orally Once a day Active Acetaminophen 325 MG 2 tabs Orally every 4 hrs Active oxyCODONE-Acetaminoph en 5-325 MG 1 tablet as needed Orally every 6 hrs Active Albuterol Sulfate HFA 108 (90 Base) MCG/ACT 1 puff as needed Inhalation every 4 hrs Active Sertraline HCl 100 MG 1 tablet Orally Once a day Active Torsemide 20 MG 2 tables Orally Twice daily in the AM and PM for 10 days Active IMMUNIZATIONS Vaccine Route Administration Date Status Comme [facility] COVID-19 COMIRNATSynAgile Vaccine, Fall 2023, SARS-CoV-2 virus strain Omjonathanron XBB.1.5 Unknown 06/28/2023 Administered COVID-19, mRNA, LNP-S, bival ent booster, PF, 30 mcg/0.3 mL Unknown 06/10/2022 Administered Flu Vac (Flucelvax) egg free Unknown 03/21/2019 Adminis tered Flu Vac (Fluzone /Alfuria) QIV PFS Unknown 03/14/2020 A dministered FLULAVAL, VACC Unknown 02/13/2012 Administered FLULAVAL, VACC Unknown 03/28/2013 Administered FLULAVAL, VACC Unknown 04/24/2014 Administered FLULAVAL, VACC Unknown 02/23/2015 Administered FLULAVAL, VACC Unknown 05/02/2016 Administered influenza, high-dose, quadrivalent Unknown 02/26/2021 A dministered influenza, high-dose, quadrivalent Unknown 03/30/2023 A dministered Influenza, injectable, MDCK, quadrivalent, preservative Unknown 04/19/2017 Administered Pfizer-BioNTech COVID-19 Vac cine 12+ IM Unknown 10/07/2021 Administered Pfizer-BioNTech COVID-19 Vaccine IM Unknown 07/08/2020 Administered Pfizer-BioNTech COVID-19 Vaccine IM Unknown 07/30/2020 Administered Pfizer-BioNTech COVID-19 Vaccine IM Unknown 03/02/2021 Administered Pneumococcal Unknown 09/02/2014 Administered Pneumococcal Unknown 05/08/2017 Administered PNEUMOCOCCAL VAC (Prevnar 13), PFS Unknown 03/30/2021 A dministered Tdap Vac (Boostrix) PFS, IM Unknown 08/21/2012 Administ ered Tdap Vac (Boostrix) PFS, IM Unknown 03/28/2013 Administ ered Zoster Vac (Shingrix) Recombinant Unknown 03/30/2021 Ad ministered SOCIAL HISTORY Tobacco Use: Social History Observation Description Date Details (start date - stop date) Former Smoker NA - NA Sex Assigned At : Social History Observation Description Sex Assigned At Unknown Tobacco Use/Smoking Question Answer Notes Are you a former smoker Additional Findings: Tobacco Non-User Cu rrent non-smoker, but past smoking history unknown Alcohol Screen Question Answer Notes Did you have a drink containing alcohol in the p ast year? No Points 0 Interpretation Negative PROBLEMS Problem Type ICD Code Onset Dates Problem Status W/U Status Risk SNOMED Code Notes Problem Other malaise (R53.81) Inactive confirmed 728988414 Problem Anxiety disorder (F41.9) Inactive confirmed Anxiety disorde r (857996692) Problem ROLAN on CPAP (G47.33) Active confirmed Obstructive sle ep apnea syndrome (74662641) Problem Type 2 diabetes mellitus with hyperglycemia (E11.65) Active confirmed 84633777 Problem Type 2 diabetes mellitus with diabetic chronic kidney disease (E11.22) Active confirmed 52052672 Recommended by CDI Problem lobsterman (current) use of insulin (Z79.4) Active confirmed 243062331 Problem Mixed hyperlipidemia (E78.2) Active confirmed 977289600 Problem Osteoporosis (M81.0) Active confirmed Osteoporosis (46324078) Problem Arthritis (M19.90) Inactive confirmed Arthritis (5043943) Problem JENNIFER (generalized anxiety disorder) (F41.1) Active confirmed Generalized anxiety disorder (94095520) Problem Cataracts, bilateral (H26.9) Inactive confirmed Cataract (222122526) Problem Breast cancer (C50.919) Inactive confirmed Breast cancer (568450963) May 2019 Problem Osteoarthritis of multiple joints (M15.9) Active confirmed Osteoarthritis of multiple joints (361570458) Problem lobsterman (current) use of opiate analgesic (Z79.891) Active confirmed [id number] Problem Chronic kidney disease, stage 4 (severe) (N18.4) Active confirmed Chronic kid yamile disease stage 4 (919261347) Problem Gait instability (R26.81) Inactive confirmed Abnormal gait (17958690) Problem Type 2 diabetes mellitus with hypoglycemia without coma (E11.649) Active confirmed 69203530 Problem Major depressive disorder, recurrent episode, moderate degree (F33.1) Active confirmed Moderate recurrent major depression (19305089) Problem Constipation due to opioid therapy (K59.09) Active confirmed Constipation (87892930) Problem Acute systolic (congestive) heart failure (I50.21) Active confirmed 613605073 Problem jail (current) use of aspirin (Z79.82) Active confirmed [id number] Problem Hypertensive heart and chronic kidney disease with heart failure and stage 1 through stage 4 chronic kidney disease, or unspecified chronic kidney disease (I13.0) Active confirmed 61613865 Problem Breast cancer, right breast (C50.911) Active confirmed Malignant neoplasm of female breast (533732943) Problem Primary hypertension (I10) Inactive confirmed 83946944 Problem Moderate persistent asthma without complication (J45.40) Active confirmed 317459948 Problem Mild episode of recurrent major depressive disorder (F33.0) Inactive confirmed 834819328 Problem 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) Active confirmed 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 (219297652) Problem Adult general medical exam (Z00.00) Active confirmed Adult health examination (895351153) Problem Episode of recurrent major depressive disorder, unspecified depression episode severity (F33.9) Inactive confirmed 831297159 Problem Type 2 diabetes mellitus with mild nonproliferative diabetic retinopathy without macular edema, left eye (E11.3292) Active confirmed Proliferative diabetic retinopathy due to type II diabetes mellitus (6044704836060) Problem Type 2 diabetes mellitus with moderate nonproliferative diabetic retinopathy with macular edema, right eye (E11.3311) Active confirmed Moderate nonproliferative retinopathy of right eye due to diabetes mellitus (disorder) (386403653) Problem Chronic heart failure, unspecified heart failure type (I50.9) Active confirmed 91259374 Problem S/P cardiac pacemaker procedure (Z95.0) Active confirmed 238478537 Problem 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 Height 59 in 11/06/2023 Member reports checking glucose levels 3 times a day with duaghters assistance. Encounters Encounter Location Date Provider Diagnosis [facility] [address] [place] [address] 04/29/2023 Amari Villavicencio Moderate persistent asthma without complication J45.40 ; ROLAN on CPAP G47.33 ; Hypertensive heart and chronic kidney disease with heart failure and stage 1 through stage 4 chronic kidney disease, or unspecified chronic kidney disease I13.0 ; jail (current) use of aspirin Z79.82 ; Chronic kidney disease, stage 4 (severe) N18.4 ; Mixed hyperlipidemia E78.2 ; S/P cardiac pacemaker procedure Z95.0 ; Chronic heart failure with preserved ejection fraction I50.32 ; 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.22 ; Type 2 diabetes mellitus with diabetic cataract, unspecified whether assisted insulin use E11.36 ; Type 2 diabetes mellitus with hyperglycemia E11.65 ; Diabetes mellitus with ophthalmic complication E11.39 ; Type 2 diabetes mellitus with hypoglycemia without coma E11.649 ; Type 2 diabetes mellitus with moderate nonproliferative diabetic retinopathy with macular edema, right eye E11.3311 ; Type 2 diabetes mellitus with mild nonproliferative diabetic retinopathy without macular edema, left eye E11.3292 ; lobsterman (current) use of insulin Z79.4 ; 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 ; Gastroesophageal reflux disease, unspecified whether esophagitis present K21.9 ; Osteoporosis M81.0 ; Major depressive disorder, recurrent episode, moderate degree F33.1 ; Anxiety disorder F41.9 ; Osteoarthritis of multiple joints M15.9 ; jail (current) use of opiate analgesic Z79.891 ; Constipation due to opioid therapy K59.09 ; Breast cancer, right breast C50.911 ; Adult general medical exam Z00.00 ; Acute systolic (congestive) heart failure I50.21 and Chronic heart failure, unspecified heart failure type I50.[address] [address] 08/30/2023 Ramy Guerrero Major depressive disorder, recurrent episode, moderate degree F33.1 and JENNIFER (generalized anxiety disorder) F41.[address] [address] 09/19/2023 Ramy Guerrero Major depressive disorder, recurrent episode, moderate degree F33.1 and JENNIFER (generalized anxiety disorder) F41.[address] [address] 11/06/2023 Operations Clinical Moderate persistent asthma without complication J45.40 ; ROLAN on CPAP G47.33 ; Hypertensive heart and chronic kidney disease with heart failure and stage 1 through stage 4 chronic kidney disease, or unspecified chronic kidney disease I13.0 ; lobsterman (current) use of aspirin Z79.82 ; Chronic kidney disease, stage 4 (severe) N18.4 ; Mixed hyperlipidemia E78.2 ; S/P cardiac pacemaker procedure Z95.0 ; Chronic heart failure with preserved ejection fraction I50.32 ; 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.22 ; Type 2 diabetes mellitus with diabetic cataract, unspecified whether termite control technician insulin use E11.36 ; Type 2 diabetes mellitus with hyperglycemia E11.65 ; Diabetes mellitus with ophthalmic complication E11.39 ; Type 2 diabetes mellitus with hypoglycemia without coma E11.649 ; Type 2 diabetes mellitus with moderate nonproliferative diabetic retinopathy with macular edema, right eye E11.3311 ; Type 2 diabetes mellitus with mild nonproliferative diabetic retinopathy without macular edema, left eye E11.3292 ; jail (current) use of insulin Z79.4 ; 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 ; Gastroesophageal reflux disease, unspecified whether esophagitis present K21.9 ; Osteoporosis M81.0 ; Major depressive disorder, recurrent episode, moderate degree F33.1 ; Osteoarthritis of multiple joints M15.9 ; lobsterman (current) use of opiate analgesic Z79.891 ; Constipation due to opioid therapy K59.09 ; Breast cancer, right breast C50.911 ; Adult general medical exam Z00.00 ; Acute systolic (congestive) heart failure I50.21 ; Chronic heart failure, unspecified heart failure type I50.9 and JENNIFER (generalized anxiety disorder) F41.1 [facility] (Closed) [address] [place] [address] 08/24/2023 Nehal Ballard [facility] (Closed) [address] [place] [address] 08/28/2023 Nehal Ballard ASSESSMENTS Encounter Date Diagnosis Assessment Notes Treatment Notes Treatment Clinical Notes 04/29/2023 Moderate persistent asthma without complication (ICD-10 - J45.40) 08/30/2023 Major depressive disorder, recurrent episode, moderate degree (ICD-10 - F33.1) 09/19/2023 Major depressive disorder, recurrent episode, moderate degree (ICD-10 - F33.1) 11/06/2023 Moderate persistent asthma without complication (ICD-10 - J45.40) 11/06/2023 ROLAN on CPAP (ICD-10 - G47.33) 09/19/2023 JENNIFER (generalized anxiety disorder) (ICD-10 - F41.1) 08/30/2023 JENNIFER (generalized anxiety disorder) (ICD-10 - F41.1) 04/29/2023 ROLAN on CPAP (ICD-10 - G47.33) 04/29/2023 Hypertensive heart a nd chronic kidney disease with heart failure and stage 1 through stage 4 chronic kidney disease, or unspecified chronic kidney disease (ICD-10 - I13.0) 11/06/2023 Hypertensive heart a nd chronic kidney disease with heart failure and stage 1 through stage 4 chronic kidney disease, or unspecified chronic kidney disease (ICD-10 - I13.0) 11/06/2023 lobsterman (current) use of aspirin (ICD-10 - Z79.82) 04/29/2023 lobsterman (current) use of aspirin (ICD-10 - Z79.82) 04/29/2023 Chronic kidney disea se, stage 4 (severe) (ICD-10 - N18.4) 11/06/2023 Chronic kidney disea se, stage 4 (severe) (ICD-10 - N18.4) 11/06/2023 Mixed hyperlipidemia (ICD-10 - E78.2) 04/29/2023 Mixed hyperlipidemia (ICD-10 - E78.2) 04/29/2023 S/P cardiac pacemake r procedure (ICD-10 - Z95.0) 11/06/2023 S/P cardiac pacemake r procedure (ICD-10 - Z95.0) 04/29/2023 Chronic heart failur e with preserved ejection fraction (ICD-10 - I50.32) 11/06/2023 Chronic heart failur e with preserved ejection fraction (ICD-10 - I50.32) 04/29/2023 Type 2 diabetes mellitus with diabetic chronic kidney disease (ICD-10 - E11.22) Recommended by CDI 11/06/2023 Type 2 diabetes mellitus with diabetic chronic kidney disease (ICD-10 - E11.22) Recommended by CDI 04/29/2023 Type 2 diabetes mellitus with diabetic cataract, unspecified whether assisted insulin use (ICD-10 - E11.36) 11/06/2023 Type 2 diabetes mellitus with diabetic cataract, unspecified whether assisted insulin use (ICD-10 - E11.36) 04/29/2023 Type 2 diabetes mellitus with hyperglycemia (ICD-10 - E11.65) 11/06/2023 Type 2 diabetes mellitus with hyperglycemia (ICD-10 - E11.65) 11/06/2023 Diabetes mellitus wi th ophthalmic complication (ICD-10 - E11.39) 04/29/2023 Diabetes mellitus wi th ophthalmic complication (ICD-10 - E11.39) 04/29/2023 Type 2 diabetes mellitus with hypoglycemia without coma (ICD-10 - E11.649) 11/06/2023 Type 2 diabetes mellitus with hypoglycemia without coma (ICD-10 - E11.649) 11/06/2023 Type 2 diabetes mellitus with moderate nonproliferative diabetic retinopathy with macular edema, right eye (ICD-10 - E11.3311) 04/29/2023 Type 2 diabetes mellitus with moderate nonproliferative diabetic retinopathy with macular edema, right eye (ICD-10 - E11.3311) 04/29/2023 Type 2 diabetes mellitus with mild nonproliferative diabetic retinopathy without macular edema, left eye (ICD-10 - E11.3292) 11/06/2023 Type 2 diabetes mellitus with mild nonproliferative diabetic retinopathy without macular edema, left eye (ICD-10 - E11.3292) 11/06/2023 jail (current) use of insulin (ICD-10 - Z79.4) 04/29/2023 lobsterman (current) use of insulin (ICD-10 - Z79.4) 04/29/2023 Blind left eye (ICD- 10 - H54.40) 11/06/2023 Blind left eye (ICD- 10 - H54.40) 04/29/2023 Gastroesophageal ref lux disease, unspecified whether esophagitis present (ICD-10 - K21.9) 11/06/2023 Gastroesophageal ref lux disease, unspecified whether esophagitis present (ICD-10 - K21.9) 04/29/2023 Osteoporosis (ICD-10 - M81.0) 11/06/2023 Osteoporosis (ICD-10 - M81.0) 11/06/2023 Major depressive disorder, recurrent episode, moderate degree (ICD-10 - F33.1) 04/29/2023 Major depressive disorder, recurrent episode, moderate degree (ICD-10 - F33.1) 04/29/2023 Anxiety disorder (ICD-10 - F41.9) 11/06/2023 Osteoarthritis of multiple joints (ICD-10 - M15.9) 11/06/2023 jail (current) use of opiate analgesic (ICD-10 - Z79.891) 04/29/2023 Osteoarthritis of multiple joints (ICD-10 - M15.9) 04/29/2023 lobsterman (current) use of opiate analgesic (ICD-10 - Z79.891) 11/06/2023 Constipation due to opioid therapy (ICD-10 - K59.09) 11/06/2023 Breast cancer, right breast (ICD-10 - C50.911) 04/29/2023 Constipation due to opioid therapy (ICD-10 - K59.09) 04/29/2023 Breast cancer, right breast (ICD-10 - C50.911) 11/06/2023 Adult general medica l exam (ICD-10 - Z00.00) 11/06/2023 Acute systolic (congestive) heart failure (ICD-10 - I50.21) 04/29/2023 Adult general medica l exam (ICD-10 - Z00.00) 04/29/2023 Acute systolic (congestive) heart failure (ICD-10 - I50.21) 11/06/2023 Chronic heart failur e, unspecified heart failure type (ICD-10 - I50.9) 11/06/2023 JENNIFER (generalized anxiety disorder) (ICD-10 - F41.1) 04/29/2023 Chronic heart failur e, unspecified heart failure type (ICD-10 - I50.9) PLAN OF TREATMENT Pending Test Test Name Order Date BASIC METABOLIC PANEL 07/27/2021 CBC (COMPLETE BLOOD COUNT) WITH DIFF 12/2021 Insurance Providers Payer Name Payer Address Payer Phone Subscriber Number Group Number Insured Name Patient Relationship to Insured Coverage Start Date Coverage End Date [facility] ([id number]) [id number] [facility] [address] [place] [address] [id number] Angela Stahl Self - patient is the insured 9 MEDICAL (GENERAL) HISTORY Medical History History ICD Code Uncontrolled type 2 DM with retinopathy and cataracts Type 2 DM with CKD stage 4 Type 2 DM polyneuropathy Demand ischemia HFpEF ROLAN on CPAP Total loss of vision left eye Mixed hyperlipidemia Primary hypertension Moderate persistent asthma Mild depression Arthritis Osteoporosis History of breast cancer Surgical History Surgery Date(Month/Year) lumpectomy of right breast 2019 exploratory lap for ovarian cystadenofib rosie with TAHBSO 04/2011 R shoulder surgery 2011 Hospitalization History Reason Date(Month/Year) [facility]: Symptomatic bardycardia with juncti onal rhythm 02/08-02/13/21 [facility] CHF/MEGA 02/01/21-02/03/21 [facility]: HF exacerbation 11/26/20 [facility]: HF exacerbation 03/13/20
[2023-11-20 21:59] LABS: Alanine Aminotransferase 33 U/L (0-31); Albumin Level 3.8 g/dL (3.5-5.0); Alkaline Phosphatase 124 U/L (39-117); Anion Gap 13 (12-20); Aspartate Amino Transferase 52 U/L (5-31); Bilirubin Total 0.3 mg/dL (0.0-1.0); Blood Urea Nitrogen 28 mg/dL (9-16); Calcium 9.4 mg/dL (8.4-10.2); Carbon Dioxide 24 mmol/L (22-29); Chloride 108 mmol/L (96-108); Creatinine Clr Calc Pharmacy 24.2; Estimated Glomerular Filt Rate 30; Glucose Random 46 mg/dL (60-115); Lipase 105 U/L (8-78); Potassium 3.6 mmol/L (3.3-5.1); Sodium 141 mmol/L (135-145); Total Protein 7.8 g/dL (6.5-8.0)
[2023-11-20 22:00] VITALS: BP 149/43; PULSE 66; RESP 20; TEMP 36.9; O2SAT 99
--- NOTE | 2023-11-20 22:06 | ED_ITS ---
HPI - General Adult General Chief complaint: General Medical Stated complaint: low blood sugar last reading 26 Time Seen by Provider: 11/20/23 21:45 Source: patient Mode of arrival: ambulatory Limitations: no limitations and language barrier History of Present Illness HPI narrative: Patient is a 68-year-old female who presents to the emergency department with daughter. Reportedly over the past 3 hours patient blood glucose levels have been low, 30s-40s. She has attempted oral glucose gel, orange juice, and different foods over the past 2 hours. When asked, how much insulin she took today she reports 30 units of NovoLog and 80 units of Tresiba. Daughter then asked patient to elaborate further because she is supposed to be taking Tresiba 40 units in the morning and 48 units in the evening, at this time she she states that she took her insulin; NovoLog 30 units at 14:00 and Tresiba 40 units at 14:00 (in addition to 40 units in the morning, which is why she said 80). Daughter does state that she recently started taking Ozempic 3 days ago, this was started because her A1c is 8.5 and her blood glucose levels are typically ranging from 300-350. She reports that the patient does not typically eat very much, today she consumed a slice of bread with cheese and 1 cup of coffee for breakfast, this afternoon she had a piece of [place] and rice, this is typical of her appetite even before taking Ozempic. Related Data Home Medications ?Medication ?Instructions ?Recorded ?Confirmed CPAP (CPAP Machine/Device) 10/13/23 nebulizers 10/13/23 Previous Rx's ?Medication ?Instructions ?Recorded Trelegy Ellipta 200 mcg-62.5 1 ea inhalation DAILY #60 ea 08/25/23 mcg-25 mcg powder for inhalation (pvkqosbecwz-lvnowcrua-rdzkpeea) albuterol sulfate 2.5 mg/3 mL 1 mg (1.2 mL) inhalation TID 30 08/25/23 (0.083 %) solution for nebulization days #108 mL albuterol sulfate 90 mcg/actuation 2 puff inhalation Q6H PRN for 08/25/23 aerosol inhaler wheezing #18 grams amlodipine 10 mg tablet (Norvasc) 10 mg PO BEDTIME 30 days #30 tabs 08/25/23 anastrozole 1 mg tablet 1 tab PO DAILY 30 days #30 tabs 08/25/23 ascorbic acid (vitamin C) 500 mg 500 mg PO DIRECTED 30 days #30 08/25/23 tablet tabs aspirin 81 mg tablet,delayed 1 tab PO DAILY 30 days #30 tabs 08/25/23 release atorvastatin 40 mg tablet 40 mg PO BEDTIME 30 days #30 tabs 08/25/23 cefuroxime axetil 250 mg tablet 250 mg PO BID 5 days #10 tabs 08/25/23 clotrimazole 1 % topical cream See Rx Instructions .Route 08/25/23 .COMPLEX PRN Itchiness 30 days #5 grams dapagliflozin propanediol 10 mg 10 mg PO DAILY 30 days #30 tabs 08/25/23 tablet (Farxiga) docusate sodium 100 mg capsule 100 mg PO DIRECTED 30 days #30 08/25/23 caps doxepin 10 mg capsule 10 mg PO BEDTIME PRN insomnia 30 08/25/23 days #30 caps esomeprazole magnesium 20 mg 20 mg PO DAILY #90 caps 08/25/23 capsule,delayed release insulin aspart U-100 100 unit/mL See Rx Instructions .Route 08/25/23 (3 mL) subcutaneous pen (Novolog .COMPLEX 30 days #10 mL FlexPen U-100 Insulin aspart) insulin degludec 200 unit/mL (3 See Rx Instructions .Route 08/25/23 mL) subcutaneous pen (Tresiba .COMPLEX 30 days #10 mL FlexTouch U-200 insulin) losartan 25 mg tablet 25 mg PO DAILY 30 days #30 tabs 08/25/23 mirtazapine 15 mg tablet 15 mg PO BEDTIME 30 days #30 tabs 08/25/23 montelukast 10 mg tablet 10 mg PO BEDTIME #30 tabs 08/25/23 oxycodone-acetaminophen 5 mg-325 1 tab PO QID PRN pain 14 days #28 08/25/23 mg tablet tabs pregabalin 75 mg capsule 75 mg PO BID 30 days #60 caps 08/25/23 sennosides 8.6 mg tablet 17.2 mg (2 x 8.6 mg) PO BEDTIME 08/25/23 PRN constipation 30 days #60 tabs sertraline 100 mg tablet 100 mg PO DAILY 30 days #30 tabs 08/25/23 tizanidine 2 mg tablet 2 mg PO Q8H PRN muscle spasm 30 08/25/23 days #60 tabs torsemide 20 mg tablet 40 mg (2 x 20 mg) PO DAILY 30 days 08/25/23 #60 tabs ursodiol 500 mg tablet 500 mg PO BID #60 tabs 08/25/23 plecanatide 3 mg tablet (Trulance) 3 mg PO DAILY #30 tabs 10/25/23 naloxegol 12.5 mg tablet (Movantik) 12.5 mg PO QAM #60 tabs 11/11/23 Allergies Allergy/AdvReac Type Severity Reaction Status Date / Time tramadol [TRAMADOL] Allergy Severe THROAT, Verified 11/20/23 21:19 LIPS SWELLING, latex [LATEX] Allergy Intermediate RASH Verified 11/20/23 21:19 Review of Systems 2 Review of Systems: Yes all other systems are reviewed and are negative [facility] Past Medical History Attestation statement: The following information was validated with the patient. 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 Dyslipidemia Diabetic nephropathy associated with type 2 diabetes mellitus Diabetic retinopathy associated with type 2 diabetes mellitus Obstructive sleep apnea on CPAP Other and unspecified hyperlipidemia Essential hypertension Type 2 diabetes mellitus with unspecified complications GERD (gastroesophageal reflux disease) (~05/18/23) Breast cancer Depression Diabetes mellitus, type 2 Asthma Surgical History Hx of colonoscopy History of esophagogastroduodenoscopy (EGD) History of total abdominal hysterectomy History of cholecystectomy History of shoulder surgery History of 3 sections History of permanent cardiac pacemaker placement Family History Family History Father Diabetes Brother Diabetes Sister Diabetes Mother No known problems Social History Social History Household Members: Spouse and Family Housing: Apartment Do you presently have visiting nurse or other home services: No Alcohol intake: never Patient Tobacco Use Status: Former Tobacco user Tobacco use type: Cigarette Years Smoked: 12 years e-Cigarette/Vaping Use: Former Use Second Hand Smoke Exposure: No Advance Directives: No Advance Directives Information Provided: No service: No Current occupational status: disabled Sexual orientation: Straight/Heterosexual Physical Exam ED Vital Signs: Vital Signs - 24 hr 11/20/23 21:11 11/20/23 22:00 11/21/23 00:59 Temperature 98.3 F 98.5 F 98.0 F Pulse Rate 62 66 65 Respiratory Rate 20 20 17 Blood Pressure 154/36 H 149/43 H 141/42 H Pulse Oximetry 97 99 Oxygen Delivery Method Room Air Room Air Room Air BMI result Body Mass Index 30.7 Appearance: Alert.?Oriented to person, place and time. No acute distress.?Normal affect. Eyes: Pupils equal, round and reactive to light.? ENT: Pharynx normal.?? Neck: Normal inspection.? Neck supple.?? CVS: Heart sounds normal. Normal heart rate and rhythm.? Pulses normal.?? Respiratory: No respiratory distress.? Lung sounds clear to auscultation bilaterally?? Abdomen: Soft and non-tender. Normoactive bowel sounds. Skin: Skin warm and dry.? Normal skin color.? Extremities: No lower extremity edema.? No calf ttp? Neuro: Moves all extremities spontaneously. Sensation intact bilaterally. CN II- XII intact. No focal neuro deficits. Course Reevaluation(s) Reevaluation #1: Patient remains asymptomatic, offers no complaints. Ambulatory with a steady gait. After receiving dextrose glucose 160s and steady. Discussed this case with ED attending Dr. Gramajo and agree's patient stable for discharge home at this time. Discussed with patient and daughter close observation of her blood glucose levels over the next few days and if she continues to have episodes of hypoglycemia we discussed appropriate intervention, reasons to come to the emergency department, and follow-up with her doctors to consider potential medication adjustments. They verbalized understood areas Medications Administered Discontinued Medications Generic Name Dose Route Start Last Admin Trade Name Freq PRN Reason Stop Dose Admin Dextrose 250 mls @ 750 mls/hr 11/20/23 21:44 11/21/23 00:04 D10 IV Infused Q15M PRN Infusion per Hypoglycemia Standing Ord. Medical Decision Making Medical Decision Making [facility] Narrative: Patient is a 68-year-old female past medical history of asthma, PPM, HLD, DM, ROLAN on CPAP, HTN, DM, CKD, CHF who presents to the emergency department for evaluation of hypoglycemia, she is without diaphoresis, pallor, irritability, tachycardia, tremors, dizziness, anxiety, vision changes seemingly asymptomatic. Discussed with patient and daughter peak effect of Tresiba 9 hours after administration. Plan to check basic labs, urinalysis, inpatient will receive dextrose 10%; D50 equivalent and will re-evaluate. Differential Diagnosis Differential Diagnoses: The differential diagnosis associated with the presentation includes Admission/Observation Consideration of admission/observation: Escalation of care including admission/observation considered Lab Data MDM Lab Attestation statement: I reviewed the patient's lab results. CBC revealing a microcytic anemia consistent with baseline is not meet transfusion criteria, no electrolyte derangement, renal function at baseline, hypoglycemia as per course narrative. Urinalysis without compelling evidence of infection. 11/20/23 21:27 11/20/23 21:27 Labs: Lab Results 11/20/23 11/20/23 11/20/23 Range/Units 21:17 21:27 21:33 WBC 8.4 (4.8-10.8) X10*3/uL RBC 3.74 L (4.20-5.50) X10*6/uL Hgb 9.7 L (12.0-16.0) g/dl Hct 28.7 L (37.0-47.0) % MCV 76.7 L (80.0-98.0) fL MCH 25.9 L (27.0-33.0) pg MCHC 33.8 (31.0-35.0) g/dl RDW 15.6 (11.0-16.0) % Plt Count 219 (160-400) X10*3/uL MPV 9.3 L (9.4-12.3) fL Immature Gran % (Auto) 0.4 (0.0-0.4) % Neut % (Auto) 66.0 (45-73) % Lymph % (Auto) 20.0 (20-40) % Haines % (Auto) 11.0 (2-11) % Eos % (Auto) 2.1 (0-4) % Baso % (Auto) 0.5 (0-2) % Lymph # (Auto) 1.7 (1.2-4.9) X10*3/uL Haines # (Auto) 0.9 (0.1-1.2) X10*3/uL Eos # (Auto) 0.2 (0.0-0.4) X10*3/uL Baso # (Auto) 0.0 (0.0-0.2) X10*3/uL Abs Immat Gran (auto) 0.03 (0.00-0.03) X10*3/uL Absolute Neuts (auto) 5.6 (2.0-8.3) x10*3/uL Absolute Nucleated RBC 0.000 (0.0-0.012) X10*3/uL Nucleated RBC % (auto) 0.0 (0.0-0.2) /100WBC Sodium 141 (135-145) mmol/L Potassium 3.6 (3.3-5.1) mmol/L Chloride 108 (96-108) mmol/L Carbon Dioxide 24 (22-29) mmol/L Anion Gap 13 (12-20) BUN 28 H (9-16) mg/dL Creatinine 1.69 H (0.5-1.4) mg/dL Estim Creat Clear Calc 24.2 Estimated GFR 30 POC Glucose 47 L* 44 L* (60-115) mg/dL Random Glucose 46 L* (60-115) mg/dL Calcium 9.4 (8.4-10.2) mg/dL Total Bilirubin 0.3 (0.0-1.0) mg/dL AST 52 H (5-31) U/L ALT 33 H (0-31) U/L Alkaline Phosphatase 124 H (39-117) U/L Total Protein 7.8 (6.5-8.0) g/dL Albumin 3.8 (3.5-5.0) g/dL Lipase 105 H (8-78) U/L Urine Color Urine Appearance Urine pH (5.0-9.0) Ur Specific [employer] Mdl (1.005-1.025) Urine Protein (Neg-Trace) mg/dL Urine Glucose (UA) (Negative) mg/dL Urine Ketones (Negative) mg/dL Urine Blood (Negative) Urine Nitrite (Negative) Ur Leukocyte Esterase (Negative) Urine RBC (0-2) /HPF Urine WBC (0-5) /HPF Ur Squamous Epith Cells (0-2) /HPF Urine Bacteria (None Seen) Hyaline Casts (0-2) /LPF 11/20/23 11/20/23 11/21/23 Range/Units 23:07 23:29 00:15 WBC (4.8-10.8) X10*3/uL RBC (4.20-5.50) X10*6/uL Hgb (12.0-16.0) g/dl Hct (37.0-47.0) % MCV (80.0-98.0) fL MCH (27.0-33.0) pg MCHC (31.0-35.0) g/dl RDW (11.0-16.0) % Plt Count (160-400) X10*3/uL MPV (9.4-12.3) fL Immature Gran % (Auto) (0.0-0.4) % Neut % (Auto) (45-73) % Lymph % (Auto) (20-40) % Haines % (Auto) (2-11) % Eos % (Auto) (0-4) % Baso % (Auto) (0-2) % Lymph # (Auto) (1.2-4.9) X10*3/uL Haines # (Auto) (0.1-1.2) X10*3/uL Eos # (Auto) (0.0-0.4) X10*3/uL Baso # (Auto) (0.0-0.2) X10*3/uL Abs Immat Gran (auto) (0.00-0.03) X10*3/uL Absolute Neuts (auto) (2.0-8.3) x10*3/uL Absolute Nucleated RBC (0.0-0.012) X10*3/uL Nucleated RBC % (auto) (0.0-0.2) /100WBC Sodium (135-145) mmol/L Potassium (3.3-5.1) mmol/L Chloride (96-108) mmol/L Carbon Dioxide (22-29) mmol/L Anion Gap (12-20) BUN (9-16) mg/dL Creatinine (0.5-1.4) mg/dL Estim Creat Clear Calc Estimated GFR POC Glucose 173 H 167 H (60-115) mg/dL Random Glucose (60-115) mg/dL Calcium (8.4-10.2) mg/dL Total Bilirubin (0.0-1.0) mg/dL AST (5-31) U/L ALT (0-31) U/L Alkaline Phosphatase (39-117) U/L Total Protein (6.5-8.0) g/dL Albumin (3.5-5.0) g/dL Lipase (8-78) U/L Urine Color Yellow Urine Appearance Clear Urine pH 5.5 (5.0-9.0) Ur Specific [employer] Mdl <= 1.005 (1.005-1.025) Urine Protein Negative (Neg-Trace) mg/dL Urine Glucose (UA) 500 H (Negative) mg/dL Urine Ketones Negative (Negative) mg/dL Urine Blood Negative (Negative) Urine Nitrite Negative (Negative) Ur Leukocyte Esterase Moderate (2+) H (Negative) Urine RBC 0-2 (0-2) /HPF Urine WBC 11-20 H (0-5) /HPF Ur Squamous Epith Cells 0-2 (0-2) /HPF Urine Bacteria None Seen (None Seen) Hyaline Casts 0-2 (0-2) /LPF 11/21/23 Range/Units 00:30 WBC (4.8-10.8) X10*3/uL RBC (4.20-5.50) X10*6/uL Hgb (12.0-16.0) g/dl Hct (37.0-47.0) % MCV (80.0-98.0) fL MCH (27.0-33.0) pg MCHC (31.0-35.0) g/dl RDW (11.0-16.0) % Plt Count (160-400) X10*3/uL MPV (9.4-12.3) fL Immature Gran % (Auto) (0.0-0.4) % Neut % (Auto) (45-73) % Lymph % (Auto) (20-40) % Haines % (Auto) (2-11) % Eos % (Auto) (0-4) % Baso % (Auto) (0-2) % Lymph # (Auto) (1.2-4.9) X10*3/uL Haines # (Auto) (0.1-1.2) X10*3/uL Eos # (Auto) (0.0-0.4) X10*3/uL Baso # (Auto) (0.0-0.2) X10*3/uL Abs Immat Gran (auto) (0.00-0.03) X10*3/uL Absolute Neuts (auto) (2.0-8.3) x10*3/uL Absolute Nucleated RBC (0.0-0.012) X10*3/uL Nucleated RBC % (auto) (0.0-0.2) /100WBC Sodium (135-145) mmol/L Potassium (3.3-5.1) mmol/L Chloride (96-108) mmol/L Carbon Dioxide (22-29) mmol/L Anion Gap (12-20) BUN (9-16) mg/dL Creatinine (0.5-1.4) mg/dL Estim Creat Clear Calc Estimated GFR POC Glucose 161 H (60-115) mg/dL Random Glucose (60-115) mg/dL Calcium (8.4-10.2) mg/dL Total Bilirubin (0.0-1.0) mg/dL AST (5-31) U/L ALT (0-31) U/L Alkaline Phosphatase (39-117) U/L Total Protein (6.5-8.0) g/dL Albumin (3.5-5.0) g/dL Lipase (8-78) U/L Urine Color Urine Appearance Urine pH (5.0-9.0) Ur Specific [employer] Mdl (1.005-1.025) Urine Protein (Neg-Trace) mg/dL Urine Glucose (UA) (Negative) mg/dL Urine Ketones (Negative) mg/dL Urine Blood (Negative) Urine Nitrite (Negative) Ur Leukocyte Esterase (Negative) Urine RBC (0-2) /HPF Urine WBC (0-5) /HPF Ur Squamous Epith Cells (0-2) /HPF Urine Bacteria (None Seen) Hyaline Casts (0-2) /LPF Independent Historian Clinical information obtained from an independent historian. History obtained from or confirmed by: Other (Daughter who confirms history) External Record Review External record reviewed: Outpatient record Discharge Plan Discharge Clinical Impression: Hypoglycemia Patient Disposition: Home, Self-Care Additional Instructions: Monitor your blood sugar levels very closely. Be sure that you are taking your medication as prescribed by your doctor. If you continued to have episodes of low blood sugar you may need to speak with your doctor about adjustments to your diabetic medications. Be sure that you have glucose gel on hand, if you are required to take it consume with it a meal to help stabilize her blood sugar for a longer period. You may return back to emergency department any new or worsening symptoms or concerns. Prescriptions: No Action Trulance 3 mg tablet 3 mg PO DAILY Qty: 30 0RF Movantik 12.5 mg tablet 12.5 mg PO QAM Qty: 60 1RF Rx Instructions: must be taken on empty stomach; no food 1 hr after or 2-3 hrs before dose cefuroxime axetil 250 mg Tablet 250 mg PO BID 5 Days Qty: 10 0RF sertraline 100 mg Tablet 100 mg PO DAILY 30 Days Qty: 30 0RF atorvastatin 40 mg tablet 40 mg PO BEDTIME 30 Days Qty: 30 0RF anastrozole 1 mg tablet 1 tab PO DAILY 30 Days Qty: 30 0RF sennosides 8.6 mg tablet 17.2 mg PO BEDTIME PRN (Reason: constipation) 30 Days Qty: 60 0RF torsemide 20 mg tablet 40 mg PO DAILY 30 Days Qty: 60 0RF tizanidine 2 mg tablet 2 mg PO Q8H PRN (Reason: muscle spasm) 30 Days Qty: 60 0RF albuterol sulfate 2.5 mg /3 mL (0.083 %) solution for nebulization 1 mg inhalation TID 30 Days Qty: 108 0RF doxepin 10 mg capsule 10 mg PO BEDTIME PRN (Reason: insomnia) 30 Days Qty: 30 0RF aspirin 81 mg tablet,delayed release (DR/EC) 1 tab PO DAILY 30 Days Qty: 30 0RF oxycodone-acetaminophen 5-325 mg tablet 1 tab PO QID PRN (Reason: pain) 14 Days Qty: 28 0RF ascorbic acid (vitamin C) 500 mg tablet 500 mg PO DIRECTED 30 Days Qty: 30 0RF Rx Instructions: Every other day amlodipine [Norvasc] 10 mg tablet 10 mg PO BEDTIME 30 Days Qty: 30 0RF losartan 25 mg tablet 25 mg PO DAILY 30 Days Qty: 30 0RF docusate sodium 100 mg capsule 100 mg PO DIRECTED 30 Days Qty: 30 0RF Rx Instructions: Take in the morning and at noon montelukast 10 mg tablet 10 mg PO BEDTIME Qty: 30 11RF mirtazapine 15 mg tablet 15 mg PO BEDTIME 30 Days Qty: 30 0RF albuterol sulfate 90 mcg/actuation HFA aerosol inhaler 2 puff inhalation Q6H PRN (Reason: for wheezing) Qty: 18 11RF clotrimazole 1 % cream See Rx Instructions .ROUTE .COMPLEX PRN (Reason: Itchiness) 30 Days Qty: 5 0RF Rx Instructions: Apply topically to arms and feet for itchiness esomeprazole magnesium 20 mg capsule,delayed release(DR/EC) 20 mg PO DAILY Qty: 90 1RF Rx Instructions: Before breakfast insulin aspart U-100 [Novolog FlexPen U-100 Insulin] 100 unit/mL (3 mL) insulin pen See Rx Instructions .ROUTE .COMPLEX 30 Days Qty: 10 0RF Rx Instructions: INJECT 30 UNITS SUBCUTANEOUSLY BEFORE BREAKFAST AND BEFORE LUNCH AND INJECT 40 UNITS SUBCUTANEOUSLY BEFORE SUPPER ursodiol 500 mg tablet 500 mg PO BID Qty: 60 3RF pregabalin 75 mg capsule 75 mg PO BID 30 Days Qty: 60 0RF insulin degludec [Tresiba FlexTouch U-200] 200 unit/mL (3 mL) insulin pen See Rx Instructions .ROUTE .COMPLEX 30 Days Qty: 10 0RF Rx Instructions: INJECT 42 UNITS SUBCUTANEOUSLY EVERY MORNING AND 48 UNITS SUBCUTANEOUSLY EVERY EVENING dapagliflozin propanediol [Farxiga] 10 mg tablet 10 mg PO DAILY 30 Days Qty: 30 0RF Trelegy Ellipta 200-62.5-25 mcg blister with device 1 ea inhalation DAILY Qty: 60 11RF (DME) nebulizers Misc See Rx Instructions .ROUTE Rx Instructions: As directed (DME) CPAP Machine/Device Device See Rx Instructions .ROUTE Rx Instructions: As directed Referrals: Angela Luz MD [Primary Care Provider] - Interventions: ED Discharge Assessment Last Done: 11/21/23 00:59 Discharge Date/Time: 11/21/23 01:06 Print Language: Japanese
--- NOTE | 2023-11-20 22:37 | MHC.EDTECH ---
attempted to obtain urine sample. Patient unable to void.
[2023-11-20 23:12] LABS: Glucose, Whole Blood 173 mg/dL (60-115)
[2023-11-20 23:33] LABS: Glucose, Whole Blood 167 mg/dL (60-115)
[2023-11-21 00:34] LABS: Glucose, Whole Blood 161 mg/dL (60-115)
[2023-11-21 00:35] LABS: Appearance Urine Clear; Color Urine Yellow; Glucose Urine UA 500 mg/dL (Negative); Leukocyte Esterase Urine Moderate (2+) (Negative); Nitrite Urine Negative (Negative); PH 5.5 (5.0-9.0); Specific Gravity - Urine <= 1.005 (1.005-1.025); UMIC TRIGGER UACC YES; Urine Blood Negative (Negative); Urine Ketones Negative (Negative); Urine Protein Negative (Neg-Trace)
[2023-11-21 00:40] LABS: Bacteria Urine None Seen (None Seen); Hyaline Casts Urine 0-2 /LPF (0-2); RBC Urine 0-2 /HPF (0-2); Squamous Epithelial Cell Urine 0-2 /HPF (0-2); UACC Culture Trigger YES
[2023-11-21 00:59] VITALS: BP 141/42; PULSE 65; RESP 17; TEMP 36.7
== END 2023-11-21 01:06 | disposition home or self-care (01) ==
PROVIDERS: Nurse Practitioner Family; Emergency Provider Internal Medicine; PCP Internal Medicine
DX: E11.649 Type 2 diabetes mellitus with hypoglycemia without coma (principal); Z79.4 Long term (current) use of insulin; Z79.899 Other long term (current) drug therapy; Z87.891 Personal history of nicotine dependence
CPT/HCPCS: 36415; 80053; 81001; 82947; 83690; 85025; 87086; 96365; 96366; 99284

== ENCOUNTER 2023-12-11 09:33 | Outpatient (REF) | payer OTHER, SELFPAY ==
[2023-12-11 11:05] LABS: MANUAL DIFF FLAG NO
[2023-12-11 11:44] LABS: Basophils Percent Auto 0.6 % (0-2); Eosinophils Absolute Auto 0.2 X10*3/uL (0.0-0.4); Eosinophils Percent Auto 2.9 % (0-4); Hematocrit 27.9 % (37.0-47.0); Hemoglobin 9.1 g/dl (12.0-16.0); Imm Gran Abs Auto 0.04 X10*3/uL (0.00-0.03); Imm Gran Pct Auto 0.6 % (0.0-0.4); Lymphocytes Absolute Auto 1.8 X10*3/uL (1.2-4.9); Lymphocytes Percent Auto 25.7 % (20-40); Mean Corpuscular HGB Conc 32.6 g/dl (31.0-35.0); Mean Corpuscular Hemoglobin 25.6 pg (27.0-33.0); Mean Corpuscular Volume 78.6 fL (80.0-98.0); Monocytes Absolute Auto 0.7 X10*3/uL (0.1-1.2); Monocytes Percent Auto 10.1 % (2-11); Neutrophils Absolute Auto 4.2 x10*3/uL (2.0-8.3); Neutrophils Percent Auto 60.1 % (45-73); Platelet Count 190 X10*3/uL (160-400); Red Blood Count 3.55 X10*6/uL (4.20-5.50); Red Cell Distribution Width 15.4 % (11.0-16.0)
[2023-12-11 11:50] LABS: INTERNATIONAL NORM RATIO 1.3 (0.9-1.1); Prothrombin Time 15.5 SEC (11.1-13.3)
[2023-12-11 12:04] LABS: Alanine Aminotransferase 20 U/L (0-31); Albumin Level 3.7 g/dL (3.5-5.0); Alkaline Phosphatase 116 U/L (39-117); Anion Gap 15 (12-20); Aspartate Amino Transferase 29 U/L (5-31); Bilirubin Total 0.4 mg/dL (0.0-1.0); Blood Urea Nitrogen 32 mg/dL (9-16); Calcium 9.2 mg/dL (8.4-10.2); Carbon Dioxide 24 mmol/L (22-29); Chloride 102 mmol/L (96-108); Estimated Glomerular Filt Rate 23; Glucose Random 245 mg/dL (60-115); Potassium 3.5 mmol/L (3.3-5.1); Sodium 137 mmol/L (135-145); Total Protein 7.4 g/dL (6.5-8.0)
[2023-12-16 21:33] LABS: TPMT Activity 15
== END 2023-12-11 09:34 | disposition home or self-care (01) ==
LOC: HO.LAB 09:33
PROVIDERS: PCP Internal Medicine; Visit Provider Internal Medicine Gastroenterology
DX: Z23 Encounter for immunization (principal); K75.81 Nonalcoholic steatohepatitis (NASH); R79.89 Other specified abnormal findings of blood chemistry; K74.60 Unspecified cirrhosis of liver; Z20.828 Contact with and (suspected) exposure to other viral communicable diseases
CPT/HCPCS: 36415; 80053; 84433; 85025; 85610; 90471; 90632; 90746; 99212

== ENCOUNTER 2023-12-11 09:33 | Outpatient (AMB) | payer OTHER, SELFPAY ==
--- NOTE | 2023-12-11 09:45 | MHC.OFFVIS ---
Vital Signs 12/11/23 09:48 Height 4 ft 8 in Weight 143 lb 4.807 oz BMI 32.1 BP 131/61 Blood Pressure Location Lt brachial Position Sitting Pulse 59 Intake Visit Reasons: 4 month follow up Intake Note: Angela presents in the office as a 4 month follow up. CC: She is not having any concerns at this time! Denies all GI symptoms. Allergies tramadol [TRAMADOL] Allergy (Severe, Verified 12/11/23 09:48) THROAT, LIPS SWELLING, latex [LATEX] Allergy (Intermediate, Verified 12/11/23 09:48) RASH HPI HPI 4 month follow up: Details: 68 yr old f with Dm, depression, Pranav, CKD, CHF and neuropathy here for f/u She [place] [facility] [place] and abn [place]FT She had EGD, colonoscopy 02/10 with gastritis, esophagitis, polyps, melanosis coli, hemorrhoids and diverticulosis noted, no active bleeding anemia thought to be ACD and due to CKD she had her GB removed about 12 yrs ago path with serrated and adenomatous polyps LABS with stable HGB around 10 g/dl for several readings. AST, ALT, Alk p elevated US 11/2021- with coarse liver architecture and increased elastography consistent with portal hypertension US 05/13-- cirrhosis, no masses or tumour GI series: 06/14 1. Mild esophageal dysmotility 2. Small type I hiatal hernia 3. Mild to moderate gastroesophageal reflux. 4. Technically limited evaluation of the stomach due to poor bariumcoating of the lesser curvature and superior wall, although suspect some degree of fold thickening consistent with mild gastritis. Recommend correlating with EGD. liver bx: Chronic hepatitis with moderate inflammation (grade 3), mild steatosis, and stage 3-4 fibrosis/early cirrhosis - INTERIM: no swallowing issues no constipation she has episodic ruq discomfort, no joint pains reviewed liver bx with, her, stage 3 inflammation, chronic hepatitis EXAM: GENERAL: The patient is well developed and nontoxi-obese. VITAL SIGNS:see workflow HEENT: Nonicteric sclerae, PERRLA, EOMI. Oropharynx clear. Moist mucous membranes. Conjunctivae appear well perfused. No thyroid mass. CHEST: Chest wall is nontender. HEART: Regular rate and rhythm without murmurs. LUNGS: Clear to auscultation bilaterally. ABDOMEN: Soft, positive bowel sounds, tender ruq, no organomegaly.no flank tenderness SKIN: No rash, no excessive bruising, petechiae, or purpura. NEUROLOGIC: Cranial nerves II-XII intact without motor/sensory deficit. Psych: nml affect A/P: 1/ Anemia, chronic disease, stable HGB, may also be due to portal hypertension and CKD 2/ abn LFt, with stage 3 inflammation and F3/4, lymphoplasmacytic infiltrate, prob ERA neg AIH PLAN: 1/ US liver for HCC screening 2/ commence low dose pred and check TPMT< will prob start low dose AZT if ok 3/ stop ursodiol 4/ hep a and b vaccine 5/ EGD at future date 6/ recheck labs in 2 weeks PFSH Medical History Chest discomfort Anemia Chronic restrictive lung disease Dyspnea Asthma Obesity (BMI 30-39.9) MCC (current) use of insulin Dyslipidemia Diabetic nephropathy associated with type 2 diabetes mellitus Diabetic retinopathy associated with type 2 diabetes mellitus Obstructive sleep apnea on CPAP Other and unspecified hyperlipidemia Essential hypertension Type 2 diabetes mellitus with unspecified complications GERD (gastroesophageal reflux disease) (~05/18/23) Breast cancer Depression Diabetes mellitus, type 2 Asthma Surgical History Hx of colonoscopy History of esophagogastroduodenoscopy (EGD) History of total abdominal hysterectomy History of cholecystectomy History of shoulder surgery History of 3 sections History of permanent cardiac pacemaker placement Family History Father Diabetes Brother Diabetes Sister Diabetes Mother No known problems Social History Household Members: Spouse and Family Housing: Apartment Do you presently have visiting nurse or other home services: No Alcohol intake: never Patient Tobacco Use Status: Former Tobacco user Tobacco use type: Cigarette Years Smoked: 12 years e-Cigarette/Vaping Use: Former Use Second Hand Smoke Exposure: No service: No Current occupational status: disabled Sexual orientation: Straight/Heterosexual Physical Exam Vital Signs: Last Vital Signs Pulse 59 12/11/23 09:48 BP 131/61 12/11/23 09:48 BMI result Body Mass Index 32.1 Assessment & Plan Assessment & Plan (1) Elevated LFTs: Comment: labs- Code(s): R7.89 - Other specified abnormal findings of blood chemistry Category: Medical Plan: see above Orders: Orders Complete Blood Count Auto Diff Today R7 - Other specified abnormal findings of blood chemistry Comprehensive Met. Panel Today K75.81 - Nonalcoholic steatohepatitis (TOMLINSON), R79.89 - Other specified abnormal findings of blood chemistry Complete Blood Count Auto Diff Today R7. - Other specified abnormal findings of blood chemistry Complete Blood Count Auto Diff 12/25/23 R7. - Other specified abnormal findings of blood chemistry Complete Blood Count Auto Diff 01/08/24 R7.89 - Other specified abnormal findings of blood chemistry Complete Blood Count Auto Diff 02/19/24 R7. - Other specified abnormal findings of blood chemistry Comprehensive Met. Panel 01/08/24 K75.81 - Nonalcoholic steatohepatitis (TOMLINSON), R79.89 - Other specified abnormal findings of blood chemistry Comprehensive Met. Panel 01/22/24 K75.81 - Nonalcoholic steatohepatitis (TOMLINSON), R79.89 - Other specified abnormal findings of blood chemistry Comprehensive Met. Panel 02/05/24 K75.81 - Nonalcoholic steatohepatitis (TOMLINSON), R79.89 - Other specified abnormal findings of blood chemistry Thiopurine Methyltransferase Today R7.89 - Other specified abnormal findings of blood chemistry Prothrombin Time INR Today R7. - Other specified abnormal findings of blood chemistry Complete Blood Count Auto Diff 01/22/24 R7.89 - Other specified abnormal findings of blood chemistry Complete Blood Count Auto Diff 02/05/24 R7.89 - Other specified abnormal findings of blood chemistry Comprehensive Met. Panel Today K75.81 - Nonalcoholic steatohepatitis (TOMLINSON), R79.89 - Other specified abnormal findings of blood chemistry Comprehensive Met. Panel 12/25/23 K75.81 - Nonalcoholic steatohepatitis (TOMLINSON), R79.89 - Other specified abnormal findings of blood chemistry Comprehensive Met. Panel 02/19/24 K75.81 - Nonalcoholic steatohepatitis (TOMLINSON), R79.89 - Other specified abnormal findings of blood chemistry US abdomen milan w elastography Today K74.60 - Unspecified cirrhosis of liver, K75.81 - Nonalcoholic steatohepatitis (TOMLINSON) Medications: New prednisone 4 tabs for 2 weeks, 3 tab for 2 week, 2 tab for 2 week, then 1 tab for 2 week 5 mg PO DIRECTED 140 tabs 0RF Discontinued ursodiol Discontinued Reason: Doctor's Order 500 mg PO BID 60 tabs 3RF Coding Level of Care Code Est Pt Level 4 (27371) Diagnoses Elevated LFTs R79.89
[2023-12-11 09:48] VITALS: BP 131/61; PULSE 59; BMI 32.1
== END 2023-12-11 10:32 | disposition home or self-care (01) ==
PROVIDERS: PCP Internal Medicine; Visit Provider Internal Medicine Gastroenterology
DX: R79.89 Other specified abnormal findings of blood chemistry (principal); Z23 Encounter for immunization
CPT/HCPCS: 99214

== ENCOUNTER 2023-12-22 09:08 | Outpatient (REF) | payer OTHER, SELFPAY ==
--- NOTE | ~2023-12-22 | US_ITS ---
EXAMINATION: US ABDOMEN LIMITED WITH LIVER ELASTOGRAPHY CLINICAL INFORMATION: Nonalcoholic steatohepatitis. COMPARISON: Abdominal ultrasound dated 05/03/2023. TECHNIQUE: Real-time imaging of the abdominal viscera. Noninvasive ultrasound liver fibrosis assessment is performed using Mya ElastPQ point quantification shear wave elastography (pSWE) with a 5 MHz transducer. Multiple elastography samples are obtained. FINDINGS: PANCREAS: Normal. The visualized pancreatic head and body are normal in appearance. The remainder of the pancreas is obscured from visualization by the overlying bowel gas. LIVER: Normal. The liver demonstrates normal size, a lobulated contour and course echogenicity. No focal lesion or intrahepatic biliary duct dilatation. The right lobe measures 17.5 cm in length. The left lobe measures 10.6 cm in length. There is hepatopedal portal venous flow. Shear wave elastography provides a median stiffness of 1.55 m/s (reference: normal median stiffness is 0.81 - 1.22 m/s). The IQR/median stiffness to assess sampling precision is 0.10 (reference: optimal IQR/median stiffness is under 0.3). GALLBLADDER: Surgically absent. COMMON BILE DUCT: Normal in caliber measuring 0.7 cm in diameter. RIGHT KIDNEY: At the upper pole, a 3 mm nonobstructing calculus is seen. There is slight upper pole caliectasis, without samaria hydronephrosis. No focal parenchymal solid lesion is seen. The kidney measures 9.8 cm in maximum dimension. At the upper pole, a 1.1 cm benign, simple cyst is seen. At the interpolar aspect, a 5 mm benign, simple cyst is seen. At the lower pole, a 5 cm benign, simple cyst is seen. These require no imaging follow-up. FREE FLUID: None. US/US abdomen milan w elastography IMPRESSION: 1. There is coarse hepatic echotexture, consistent with fatty infiltration or hepatocellular disease. Please correlate clinically. No focal hepatic mass or intrahepatic biliary dilatation is seen. 2. There is mild hepatomegaly. 3. Elastography: Liver elastography measurements are consistent with a minimal risk for clinically significant liver fibrosis (METAVIR Stage F0-F1). 4. The gallbladder is surgically absent. 5. A 3 mm nonobstructing right renal calculus is seen. No samaria hydronephrosis is noted. Electronically signed by: Boris Mcdaniel MD 01/15/2024 05:05 PM EDT RP
== END 2023-12-22 09:09 | disposition home or self-care (01) ==
LOC: HO.US 09:08
PROVIDERS: PCP Internal Medicine; Visit Provider Internal Medicine Gastroenterology
DX: K75.81 Nonalcoholic steatohepatitis (NASH) (principal); K74.60 Unspecified cirrhosis of liver
CPT/HCPCS: 76705; 76981

== ENCOUNTER 2023-12-27 08:28 | Outpatient (REF) | payer OTHER, SELFPAY ==
[2023-12-27 08:51] LABS: MANUAL DIFF FLAG NO
[2023-12-27 09:45] LABS: Basophils Percent Auto 0.5 % (0-2); Eosinophils Absolute Auto 0.2 X10*3/uL (0.0-0.4); Eosinophils Percent Auto 4.1 % (0-4); Hematocrit 26.7 % (37.0-47.0); Hemoglobin 8.8 g/dl (12.0-16.0); Imm Gran Abs Auto 0.01 X10*3/uL (0.00-0.03); Imm Gran Pct Auto 0.2 % (0.0-0.4); Lymphocytes Absolute Auto 1.5 X10*3/uL (1.2-4.9); Lymphocytes Percent Auto 26.3 % (20-40); Mean Corpuscular Hemoglobin 25.6 pg (27.0-33.0); Mean Corpuscular Volume 77.6 fL (80.0-98.0); Mean Platelet Volume 10.3 fL (9.4-12.3); Monocytes Absolute Auto 0.6 X10*3/uL (0.1-1.2); Monocytes Percent Auto 10.7 % (2-11); Neutrophils Absolute Auto 3.3 x10*3/uL (2.0-8.3); Neutrophils Percent Auto 58.2 % (45-73); Platelet Count 219 X10*3/uL (160-400); Red Blood Count 3.44 X10*6/uL (4.20-5.50); Red Cell Distribution Width 15.5 % (11.0-16.0); White Blood Count 5.6 X10*3/uL (4.8-10.8)
[2023-12-27 09:48] LABS: Appearance Urine Cloudy; Color Urine Yellow; Glucose Urine UA >=1000 mg/dL (Negative); Leukocyte Esterase Urine Small (1+) (Negative); Nitrite Urine Negative (Negative); PH 5.5 (5.0-9.0); Specific Gravity - Urine 1.015 (1.005-1.025); UMIC TRIGGER UA YES; Urine Blood Negative (Negative); Urine Ketones Negative (Negative); Urine Protein Negative (Neg-Trace)
[2023-12-27 09:51] LABS: Bacteria Urine 3+ (None Seen); RBC Urine 0-2 /HPF (0-2); Squamous Epithelial Cell Urine >20 /HPF (0-2)
[2023-12-27 10:29] LABS: Parathyroid Hormone Intact 338.8 pg/mL (8.7-77.1)
[2023-12-27 10:35] LABS: Albumin Level 3.7 g/dL (3.5-5.0); Anion Gap 13 (12-20); Blood Urea Nitrogen 26 mg/dL (9-16); Calcium 9.6 mg/dL (8.4-10.2); Carbon Dioxide 27 mmol/L (22-29); Chloride 105 mmol/L (96-108); Estimated Glomerular Filt Rate 29; Phosphorus 3.8 mg/dL (2.7-4.5); Potassium 4.3 mmol/L (3.3-5.1); Sodium 141 mmol/L (135-145)
[2023-12-27 10:36] LABS: Creatinine Urine 61.41 mg/dL; Microalbum/Creatinine Ratio Ur 16.2 ug/mg cr (<30); Total Protein Urine Random < 7 mg/dL (<12)
[2023-12-27 10:44] LABS: Vitamin D 25-OH Total 31.1 ng/mL (>30)
== END 2023-12-27 08:29 | disposition home or self-care (01) ==
LOC: HO.LAB 08:28
PROVIDERS: PCP Internal Medicine; Visit Provider Internal Medicine Nephrology
DX: E11.22 Type 2 diabetes mellitus with diabetic chronic kidney disease (principal); N18.32 Chronic kidney disease, stage 3b; N25.0 Renal osteodystrophy
CPT/HCPCS: 36415; 80051; 81001; 82040; 82043; 82306; 82310; 82565; 82570; 83735; 83970; 84100; 84156; 84520; 85025

== ENCOUNTER 2024-01-16 08:51 | Outpatient (AMB) | payer OTHER, SELFPAY ==
--- NOTE | 2024-01-16 08:52 | A.OFFVIS_ITS ---
Intake Visit Reasons: OV - Left Shoulder - discuss surgery Intake Note: Eder 67 year old right hand dominant female presents today for an evaluation of progressively worsening left shoulder pain and weakness. Patient is states that she has undergone 2 right shoulder ?rotator cuff repair surgeries? in the past. She reports mild intermittent discomfort in her right shoulder. Patient did injure her left shoulder function 1 year ago while lifting a heavy object. Since that time her symptoms have gotten worse in spite of continued non operative treatments. She has done physical therapy for 12 weeks over the last 6 months which aggravated her pain. She has also tried Tylenol and anti- inflammatory medicines which gave her minimal relief. She has had injections in the past which gave him no relief. The patient reports difficulty lifting her left hand above shoulder height. Accompanied by: Daughter Allergies tramadol [TRAMADOL] Allergy (Severe, Verified 01/16/24 08:53) THROAT, LIPS SWELLING, latex [LATEX] Allergy (Intermediate, Verified 01/16/24 08:53) RASH Medication List - Last Reconciled 01/16/24 by Gato Dhaliwal MD albuterol sulfate 90 mcg/actuation 2 puffs inhalation Q6H PRN albuterol sulfate 1 mg (1.2 mL) inhalation TID 30 days amlodipine (Norvasc) 10 mg PO BEDTIME 30 days anastrozole 1 tab PO DAILY 30 days ascorbic acid (vitamin C) 500 mg PO DIRECTED 30 days aspirin 1 tab PO DAILY 30 days atorvastatin 40 mg PO BEDTIME 30 days cefuroxime axetil 250 mg PO BID 5 days clotrimazole 1% Apply topically to arms and feet for itchiness 30 days CPAP (CPAP Machine/Device) As directed dapagliflozin propanediol (Farxiga) 10 mg PO DAILY 30 days docusate sodium 100 mg PO DIRECTED 30 days doxepin 10 mg PO BEDTIME PRN 30 days esomeprazole magnesium 20 mg PO DAILY insulin aspart U-100 (Novolog FlexPen U-100 Insulin aspart) INJECT 30 UNITS SUBCUTANEOUSLY BEFORE BREAKFAST AND BEFORE LUNCH AND INJECT 40 UNITS SUBCUTANEOUSLY BEFORE SUPPER 30 days insulin degludec (Tresiba FlexTouch U-200 insulin) INJECT 42 UNITS SUBCUTANEOUSLY EVERY MORNING AND 48 UNITS SUBCUTANEOUSLY EVERY EVENING 30 days losartan 25 mg PO DAILY 30 days mirtazapine 15 mg PO BEDTIME 30 days montelukast 10 mg PO BEDTIME naloxegol (Movantik) 12.5 mg PO QAM nebulizers As directed oxycodone-acetaminophen 5-325 mg 1 tab PO QID PRN 14 days plecanatide (Trulance) 3 mg PO DAILY prednisone 5 mg PO DIRECTED pregabalin 75 mg PO BID 30 days semaglutide (Ozempic) mg subcut sennosides 17.2 mg (2 x 8.6 mg) PO BEDTIME PRN 30 days sertraline 100 mg PO DAILY 30 days tizanidine 2 mg PO Q8H PRN 30 days torsemide 40 mg (2 x 20 mg) PO DAILY 30 days Trelegy Ellipta 200-62.5-25 mcg (xzvybkuvjql-vflmsuklb-mjqscbge) 1 ea inhalation DAILY NS PFSH Medical History Chest discomfort Anemia Chronic restrictive lung disease Dyspnea Asthma Obesity (BMI 30-39.9) intermediate (current) use of insulin Dyslipidemia Diabetic nephropathy associated with type 2 diabetes mellitus Diabetic retinopathy associated with type 2 diabetes mellitus Obstructive sleep apnea on CPAP Other and unspecified hyperlipidemia Essential hypertension Type 2 diabetes mellitus with unspecified complications GERD (gastroesophageal reflux disease) (~05/18/23) Breast cancer Depression Diabetes mellitus, type 2 Asthma Surgical History Hx of colonoscopy History of esophagogastroduodenoscopy (EGD) History of total abdominal hysterectomy History of cholecystectomy History of shoulder surgery History of 3 sections History of permanent cardiac pacemaker placement Family History Father Diabetes Brother Diabetes Sister Diabetes Mother No known problems Social History Household Members: Spouse and Family Housing: Apartment Do you presently have visiting nurse or other home services: No Alcohol intake: never Patient Tobacco Use Status: Former Tobacco user Tobacco use type: Cigarette Years Smoked: 12 years e-Cigarette/Vaping Use: Former Use Second Hand Smoke Exposure: No service: No Current occupational status: disabled Sexual orientation: Straight/Heterosexual Physical Exam Const Other: Well-nourished well-developed very friendly female awake alert and oriented x3 in no acute distress Extrem Other: Bilateral upper extremity examination shows good capillary refill, no skin lesions noted, normal sensation light touch Left shoulder examination shows decreased range of motion when compared to her right shoulder, positive impingement signs, 4+ out of 5 strength with supraspinatus testing, tenderness over her acromioclavicular joint, no instability Results Reviewed Results Reviewed: X-rays of the patient's left shoulder taken previously show severe joint space narrowing, a type 3 acromion, no acute bony abnormalities The patient can not get an MRI because she has a pacemaker Assessment & Plan Assessment & Plan (1) Impingement syndrome of left shoulder: Code(s): M75.42 - Impingement syndrome of left shoulder Category: Medical Plan Ms. Alberto Moerno presents with progressively worsening left shoulder pain and weakness due to impingement syndrome, acromioclavicular joint arthritis and possible rotator cuff tearing. I had a lengthy discussion with the patient regarding her treatment options. At this point she has failed continued non operative treatments. The risks and benefits of left shoulder surgery were discussed at length with the patient. The patient wishes to proceed with surgery. Surgery will involve left shoulder diagnostic arthroscopy with distal clavicle excision, acromioplasty and rotator cuff repair should a full-thickness tear be found at the time of surgery. She will be scheduled for next available date. She will continue with her range of motion exercises in the meantime to prevent stiffness. She will follow-up as instructed. Feel free to call me at any time should questions regarding her orthopedic management arise. I spent 22 minutes in reviewing the patient's records and imaging studies, seeing the patient and documenting in the medical record. Coding Level of Care Code Est Pt Level 3 (05375) Diagnoses Impingement syndrome of left shoulder M75.42
== END 2024-01-16 09:03 | disposition home or self-care (01) ==
PROVIDERS: PCP Internal Medicine; Visit Provider Orthopaedic Surgery
DX: M75.42 Impingement syndrome of left shoulder (principal)
CPT/HCPCS: 99214

== ENCOUNTER → 2024-01-16 08:51 | Outpatient (BNVA) | payer OTHER, SELFPAY | PROVIDERS: PCP Internal Medicine; Visit Provider Orthopaedic Surgery | DX: M75.42 Impingement syndrome of left shoulder (principal) | CPT/HCPCS: 99212 ==

== ENCOUNTER 2024-02-02 06:45 | Day surgery (SDC) | payer OTHER, SELFPAY ==
--- NOTE | 2024-01-23 | ECG_ITS ---
Test Reason : preop Blood Pressure : / mmHG Vent. Rate : 063 BPM Atrial Rate : 063 BPM P-R Int : 144 ms QRS Dur : 076 ms QT Int : 426 ms P-R-T Axes : 069 022 054 degrees QTc Int : 435 ms Normal sinus rhythm Nonspecific ST abnormality Abnormal ECG When compared with ECG of 18-APR-2021 15:31, No significant change was found Referred By: Adriana Cosby Electronically Signed By:VERONICA BRAMBILA
[2024-01-23 10:37] VITALS: BP 168/70; PULSE 62; RESP 16; O2SAT 99; BMI 31.4
--- NOTE | 2024-01-23 10:47 | P.CONAN_ITS ---
Documented by User: Adriana Cosby NP 01/25/24 11:59 HPI - Anesthesia Eval Consult details Narrative: 68yo F for Left Shoulder Arthroscopy distal clavicle excision, acromioplasty, rotator cuff repair Pulmo optmized. Follows [facility] pulmo Cardiac optimizted. Follows [facility] Cardiol Pacer in situ No recent illness No CP/SOB with minimal activity. Short walks daily Asthma/Restrictive lung disease: Stable per patient. Albuterol ~ 1 time every 2 weeks DM2: FBS ~ 150-160 GERD: ppi controls CKD St 4: Follows renal. Last office visit 12/2023. Baseline creat 1.6-1.7 Anesthesia Pre-Procedure Meds Is the patient on any of the following meds?: GLP1/DPP4 and SGLT2 Inhib PMFSH Active Problems Active Problems: All Active Problems MDD (major depressive disorder), recurrent episode, moderate (Acute) Adjustment disorder with depressed mood (Acute) Impingement syndrome of left shoulder (Acute) Bronchitis (Acute) Asthma (Acute) Pacemaker (Acute) Chronic constipation (Acute) RUQ pain (Acute) Elevated LFTs (Acute) Closed fracture of lateral malleolus with routine healing (Acute) Lateral malleolar fracture (Acute) Closed left ankle fracture (Acute) CKD (chronic kidney disease) (Acute) Peripheral neuropathy (Acute) Congestive heart failure (Acute) Fibula fracture (Acute) Chest discomfort (Acute) GERD (gastroesophageal reflux disease) (Acute ~05/18/23) Anemia (Acute) Chronic restrictive lung disease (Acute) Dyspnea (Acute) Asthma (Acute) Obesity (BMI 30-39.9) (Acute) intermediate card tender (current) use of insulin (Acute) Dyslipidemia (Acute) Diabetic nephropathy associated with type 2 diabetes mellitus (Acute) Diabetic retinopathy associated with type 2 diabetes mellitus (Acute) Obstructive sleep apnea on CPAP (Acute) Other and unspecified hyperlipidemia (Acute) Essential hypertension (Acute) Type 2 diabetes mellitus with unspecified complications (Acute) Depression (Acute) Diabetes mellitus, type 2 (Acute) Past Medical History Medical History CKD (chronic kidney disease) Hx of radiation therapy Arthritis HTN (hypertension) Chest discomfort Anemia Chronic restrictive lung disease Dyspnea Asthma Obesity (BMI 30-39.9) intermediate card tender (current) use of insulin Dyslipidemia Diabetic nephropathy associated with type 2 diabetes mellitus Diabetic retinopathy associated with type 2 diabetes mellitus Obstructive sleep apnea on CPAP Other and unspecified hyperlipidemia Essential hypertension Type 2 diabetes mellitus with unspecified complications GERD (gastroesophageal reflux disease) (~05/18/23) Breast cancer Depression Diabetes mellitus, type 2 Family History Family History Father Diabetes Brother Diabetes Sister Diabetes Mother No known problems Family history of problems with anesthesia: No Surgical History Surgical History Hx of cardiac catheterization Hx of colonoscopy History of esophagogastroduodenoscopy (EGD) History of total abdominal hysterectomy History of cholecystectomy History of shoulder surgery History of 3 sections History of permanent cardiac pacemaker placement History of Problems with Anesthesia: No Social History Social History Household Members: Spouse and Family Housing: Apartment Are you a primary career and technology education teacher to a significant other at home: No Do you presently have visiting nurse or other home services: Yes (nurse) Alcohol intake: never Patient Tobacco Use Status: Former Tobacco user Tobacco use type: Cigarette Years Smoked: 12 years e-Cigarette/Vaping Use: Former Use Second Hand Smoke Exposure: No Use of substances other than those prescribed or required for medical reasons: No Have you been hit, kicked, punched, or otherwise hurt by someone within the past year? If so, by whom?: No Are you DNR?: Yes Advance Directives: No Advance Directives Information Provided: Yes Advance Directives on File: No Recently lost weight without trying: No Eating poorly because of decreased appetite: No Nutrition Risks: No Nutritional Risk Patient : No : No Poor oral hygiene: No (not teeth , no dentures) service: No Current occupational status: disabled Sexual orientation: Straight/Heterosexual Meds Allergies Allergy/AdvReac Type Severity Reaction Status Date / Time tramadol [TRAMADOL] Allergy Severe THROAT, Verified 02/02/24 07:21 LIPS SWELLING, latex [LATEX] Allergy Intermediate RASH Verified 02/02/24 07:21 Home Medications ?Medication ?Instructions ?Recorded ?Confirmed ?Last Taken ?Type CPAP (CPAP Machine/Device) 10/13/23 01/16/24 Unknown History nebulizers 10/13/23 01/16/24 Unknown History semaglutide 0.25 mg or 0.5 mg (2 2 mg subcut QWEEK 12/11/23 01/23/24 Unknown History mg/3 mL) subcutaneous pen injector (Ozempic) amlodipine 10 mg tablet (Norvasc) 10 mg PO DAILY 01/23/24 02/02/24 02/02/24 History atorvastatin 40 mg tablet 40 mg PO DAILY 01/23/24 02/02/24 02/02/24 History docusate sodium 100 mg capsule 100 mg PO DAILY PRN Constipation 01/23/24 01/23/24 Unknown History insulin degludec 200 unit/mL (3 40 unit subcut QNOON 01/23/24 01/23/24 Unknown History mL) subcutaneous pen (Tresiba FlexTouch U-200 insulin) pantoprazole 20 mg tablet,delayed 20 mg PO DAILY 01/23/24 02/02/24 02/02/24 History release Exam Height,Weight and Vital Signs: Height 4 ft 8 in Weight 63.503 kg Last Vital Signs Pulse 62 01/23/24 10:37 Resp 16 01/23/24 10:37 BP 168/70 H 01/23/24 10:37 Pulse Ox 99 01/23/24 10:37 O2 Del Method Room Air 01/23/24 10:37 Pertinent Lab Results Pertinent Lab Results: Lab Results 01/23/24 Range/Units 11:08 WBC 8.7 (4.8-10.8) X10*3/uL RBC 3.63 L (4.20-5.50) X10*6/uL Hgb 8.5 L (12.0-16.0) g/dl Hct 26.9 L (37.0-47.0) % MCV 74.1 L (80.0-98.0) fL MCH 23.4 L (27.0-33.0) pg MCHC 31.6 (31.0-35.0) g/dl RDW 14.5 (11.0-16.0) % Plt Count 264 (160-400) X10*3/uL MPV 9.8 (9.4-12.3) fL Absolute Nucleated RBC 0.000 (0.0-0.012) X10*3/uL Nucleated RBC % (auto) 0.0 (0.0-0.2) /100WBC Sodium 141 (135-145) mmol/L Potassium 4.1 (3.3-5.1) mmol/L Chloride 105 (96-108) mmol/L Carbon Dioxide 26 (22-29) mmol/L Anion Gap 14 (12-20) BUN 34 H (9-16) mg/dL Creatinine 1.69 H (0.5-1.4) mg/dL Estim Creat Clear Calc 23.4 Estimated GFR 30 Random Glucose 147 H (60-115) mg/dL Calcium 10.0 (8.4-10.2) mg/dL Narrative Narrative: Pacer interr 10/2023 AP 23% Battery 80% Values in nml range 0% AT/AF burden ECHO 2022 1. LV nml size 2. LV nml wall thickness 3. LVEF 65-70% 4. Nml diastolic filling pattern 5. No WMA 6. LA nml size 7. RV sys function nml 8. PAcer wire seen in right atria and ventricle 9. Aortic sclerosis without stenosis 10. Trace MR 11. No pulmo htn 12. No change c/w 2021 EKG 01/2024 NSR @ [address] abn Airway Mallampati Class: II TM Dist: <=3cm Neck ROM: Full Heart: RRR Lungs: Faint exp wheeze Assessment and Plan Assessment Anesthesia Assessment: Anesthesia Plan Discussed and PAT Visit Final Anesthetic Review Family History of Problems with Anesthesia: No History of Problems with Anesthesia: No Documented by User: Renetta Allred MD 02/02/24 08:07 HPI - Anesthesia Eval Anesthesia Pre-Procedure Meds If yes to any meds - educate patient: Pt education - increased risk of aspiration and/or euvolemic DKA and Pt education - possibility of cancelled proc at provider's discretion PMFSH Past Medical History Medical History CKD (chronic kidney disease) Hx of radiation therapy Arthritis HTN (hypertension) Chest discomfort Anemia Chronic restrictive lung disease Dyspnea Asthma Obesity (BMI 30-39.9) intermediate card tender (current) use of insulin Dyslipidemia Diabetic nephropathy associated with type 2 diabetes mellitus Diabetic retinopathy associated with type 2 diabetes mellitus Obstructive sleep apnea on CPAP Other and unspecified hyperlipidemia Essential hypertension Type 2 diabetes mellitus with unspecified complications GERD (gastroesophageal reflux disease) (~05/18/23) Breast cancer Depression Diabetes mellitus, type 2 Family History Family History Father Diabetes Brother Diabetes Sister Diabetes Mother No known problems Surgical History Surgical History Hx of cardiac catheterization Hx of colonoscopy History of esophagogastroduodenoscopy (EGD) History of total abdominal hysterectomy History of cholecystectomy History of shoulder surgery History of 3 sections History of permanent cardiac pacemaker placement Social History Social History Household Members: Spouse and Family Housing: Apartment Are you a primary career and technology education teacher to a significant other at home: No Do you presently have visiting nurse or other home services: Yes (nurse) Alcohol intake: never Patient Tobacco Use Status: Former Tobacco user Tobacco use type: Cigarette Years Smoked: 12 years e-Cigarette/Vaping Use: Former Use Second Hand Smoke Exposure: No Use of substances other than those prescribed or required for medical reasons: No Have you been hit, kicked, punched, or otherwise hurt by someone within the past year? If so, by whom?: No Are you DNR?: Yes Advance Directives: No Advance Directives Information Provided: Yes Advance Directives on File: No Recently lost weight without trying: No Eating poorly because of decreased appetite: No Nutrition Risks: No Nutritional Risk Patient : No : No Poor oral hygiene: No (not teeth , no dentures) service: No Current occupational status: disabled Sexual orientation: Straight/Heterosexual Meds Allergies Allergy/AdvReac Type Severity Reaction Status Date / Time tramadol [TRAMADOL] Allergy Severe THROAT, Verified 02/02/24 07:21 LIPS SWELLING, latex [LATEX] Allergy Intermediate RASH Verified 02/02/24 07:21 Home Medications ?Medication ?Instructions ?Recorded ?Confirmed ?Last Taken ?Type CPAP (CPAP Machine/Device) 10/13/23 01/16/24 Unknown History nebulizers 10/13/23 01/16/24 Unknown History semaglutide 0.25 mg or 0.5 mg (2 2 mg subcut QWEEK 12/11/23 01/23/24 Unknown History mg/3 mL) subcutaneous pen injector (Ozempic) amlodipine 10 mg tablet (Norvasc) 10 mg PO DAILY 01/23/24 02/02/24 02/02/24 History atorvastatin 40 mg tablet 40 mg PO DAILY 01/23/24 02/02/24 02/02/24 History docusate sodium 100 mg capsule 100 mg PO DAILY PRN Constipation 01/23/24 01/23/24 Unknown History insulin degludec 200 unit/mL (3 40 unit subcut QNOON 01/23/24 01/23/24 Unknown History mL) subcutaneous pen (Tresiba FlexTouch U-200 insulin) pantoprazole 20 mg tablet,delayed 20 mg PO DAILY 01/23/24 02/02/24 02/02/24 History release Assessment and Plan Final Anesthetic Review NPO: Yes ASA Class: III Final Preanesthetic Review: No Changes in Pt Med Stat, Meds/Allgs Chart Reviewed, Consent Obtained/Reviewed and Anes Risks/Benef Reviewed Patient Risk: Intermediate Procedure Risk: Intermediate Anesthetic Plan Anesthetic Plan: GA and Regional Block Disposition: Standard PACU
[2024-01-23 11:41] LABS: Hematocrit 26.9 % (37.0-47.0); Hemoglobin 8.5 g/dl (12.0-16.0); Mean Corpuscular HGB Conc 31.6 g/dl (31.0-35.0); Mean Corpuscular Hemoglobin 23.4 pg (27.0-33.0); Mean Corpuscular Volume 74.1 fL (80.0-98.0); Mean Platelet Volume 9.8 fL (9.4-12.3); Platelet Count 264 X10*3/uL (160-400); Red Blood Count 3.63 X10*6/uL (4.20-5.50); Red Cell Distribution Width 14.5 % (11.0-16.0); White Blood Count 8.7 X10*3/uL (4.8-10.8)
[2024-01-23 12:30] LABS: Anion Gap 14 (12-20); Blood Urea Nitrogen 34 mg/dL (9-16); Carbon Dioxide 26 mmol/L (22-29); Chloride 105 mmol/L (96-108); Creatinine Clr Calc Pharmacy 23.4; Estimated Glomerular Filt Rate 30; Glucose Random 147 mg/dL (60-115); Potassium 4.1 mmol/L (3.3-5.1); Sodium 141 mmol/L (135-145)
[2024-02-02] VITALS (8 sets, daily range): BP systolic 140–179; BP diastolic 42–54; PULSE 60–66; RESP 16–18; TEMP 36.1–37.1; O2SAT 92–100; BMI 32.3
--- OUTSIDE RECORDS SUMMARY | 2024-02-02 06:47 | XMS_ITS ---
Author Organization [facility] Address [address] [place] [address] Care Team Providers Care Motor Equipment Lieutenant Name Role Phone Angela Luz Primary Care Provider Nehal Skinner Unavailable [phone] Yamilet Barragan Unavailable [phone] Encounters Encounter Location Date Provider Diagnosis [facility] [address] [place] [address] 01/30/2024 Yamilet Barragan PLAN OF TREATMENT No Information
--- OUTSIDE RECORDS SUMMARY | 2024-02-02 06:47 | XMS_ITS ---
Author Organization [facility] Address [address] [place] [address] Care Team Providers Care Paragliding Instructor Name Role Phone Anglea Luz Primary Care Provider Nehal Skinner Unavailable [phone] Clinical, Operations Unavailable Unavailable ALLERGIES Allergen (clinical drug ingredient) Drug/Non Drug Allergy documented on EMR Reaction Allergy Type Onset Date Status Adhesive rash Allergy Active Latex Latex Unknown Allergy Active tramadol Tramadol lip swelling Drug Allergy Acti ve REASON FOR VISIT MDS assessment MEDICATIONS Medication SIG (Take, Route, Frequency, Duration) Notes Start Date End Date Status Albuterol Sulfate (2.5 MG/3ML) 0.083% 3 mL as needed Inhalation Three times a day Active Cyanocobalamin 1000 MCG 1 tablet Orally Once a day reports mot taking Not-Taking NovoLOG FlexPen 100 UNIT/ML Per sliding scale - 30-40 units as directed Subcutaneous 3 times a day with meals 06/29/2021 Active Plecanatide 3 MG 1 tablet Orally Once a day Active Tresiba FlexTouch 200 UNIT/ML 42 in AM 48 in PM Subcutaneous Daily Reports taking 42 units in the AM and 48 in the evening Active Senna 8.6 MG 2 tablets at bedtime as needed Orally Once a day Active Pregabalin 75 MG 1 capsule Orally Twice a day reports taking as needed - education provided Active Clotrimazole Anti-Fungal 1 % 1 application Externally Twice a day Active Acetaminophen 325 MG 2 tabs Orally every 4 hrs Active Albuterol Sulfate HFA 108 (90 Base) MCG/ACT 1 puff as needed Inhalation every 4 hrs Active Vitamin B 12 100 MCG 1 tablet Orally Once a day reports not taking Not-Taking Ursodiol 500 MG 1 tablet Orally Twice a day Active Trulance 3 MG 1 tablet Orally Once a day Active Triamcinolone Acetonide 0.1 % 1 application Externally Twice a day Active Victoza 18 MG/3ML 1 X Daily Subcutaneous At Night 1.8 MG/0.3 ML 09/15/2021 Not-Taking Baqsimi One Pack reports not taking Not-Taking Carvedilol 6.25 MG 1 tablet with food Orally Twice a day reports not taking Not-Taking Furosemide 20 MG 3 Tablets Orally Once a day reports not taking Not-Taking Gabapentin 400 MG 1 capsule Orally 3 X daily reports not taking Not-Taking Omeprazole 20 MG 1 capsule 30 minutes before morning meal Orally Once a day reports not taking Not-Taking Trelegy Ellipta 200-62.5-25 MCG/INH 1 puff Inhalation [...] Once a day reports not taking Not-Taking Mirtazapine 15 MG 1 tablet at bedtime Orally Once a day CURRENTLY NOT IN BLISTER PACK Active Montelukast Sodium 10 MG 1 tablet Orally Once a day Active oxyCODONE-Acetaminoph en 5-325 MG 1 tablet as needed Orally every 6 hrs Active Sertraline HCl 100 MG 1 tablet Orally Once a day Active Torsemide 20 MG 2 tables Orally Twice daily in the AM and PM for 10 days Active Docusate Sodium 100 MG 1 capsule Orally TWICE A DAY Active Doxepin HCl 10 MG 1 capsule at bedtime as needed Orally Once a day Active Esomeprazole Magnesium 20 MG 1 capsule Orally Once a day Active Farxiga 10 MG 1 tablet Orally Once a day Active Losartan Potassium 25 MG 1 tablet Orally Once a day Active amLODIPine Besylate 10 MG 1 tablet Orally Once a day Active Anastrozole 1 MG 1 tablet Orally Once a day Active Aspirin Adult Low Dose 81 MG 1 tablet Orally Once a day Active Atorvastatin Calcium 40 MG 1 tablet Orally Once a day Active VITAL SIGNS Height 59 in 11/06/2023 Height-cm 149.86 cm 11/06/2023 Member reports checking gluc ose levels 3 times a day with hugo assistance. Encounters Encounter Location Date Provider Diagnosis [facility] [address] [place] [address] 11/06/2023 Operations Clinical Moderate persistent asthma without complication J45.40 ; ROLAN on CPAP G47.33 ; Hypertensive heart and chronic kidney disease with heart failure and stage 1 through stage 4 chronic kidney disease, or unspecified chronic kidney disease I13.0 ; senior care (current) use of aspirin Z79.82 ; Chronic kidney disease, stage 4 (severe) N18.4 ; Mixed hyperlipidemia E78.2 ; S/P cardiac pacemaker procedure Z95.0 ; Chronic heart failure with preserved ejection fraction I50.32 ; 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.22 ; Type 2 diabetes mellitus with diabetic cataract, unspecified whether half-way insulin use E11.36 ; Type 2 diabetes mellitus with hyperglycemia E11.65 ; Diabetes mellitus with ophthalmic complication E11.39 ; Type 2 diabetes mellitus with hypoglycemia without coma E11.649 ; Type 2 diabetes mellitus with moderate nonproliferative diabetic retinopathy with macular edema, right eye E11.3311 ; Type 2 diabetes mellitus with mild nonproliferative diabetic retinopathy without macular edema, left eye E11.3292 ; 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 Z79.4 ; 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 ; Gastroesophageal reflux disease, unspecified whether esophagitis present K21.9 ; Osteoporosis M81.0 ; Major depressive disorder, recurrent episode, moderate degree F33.1 ; Osteoarthritis of multiple joints M15.9 ; terminal supervisor (current) use of opiate analgesic Z79.891 ; Constipation due to opioid therapy K59.09 ; Breast cancer, right breast C50.911 ; Adult general medical exam Z00.00 ; Acute systolic (congestive) heart failure I50.21 ; Chronic heart failure, unspecified heart failure type I50.9 and JENNIFER (generalized anxiety disorder) F41.1 ASSESSMENTS Encounter Date Diagnosis Assessment Notes Treatment Notes Treatment Clinical Notes 11/06/2023 Moderate persistent asthma without complication (ICD-10 - J45.40) 11/06/2023 ROLAN on CPAP (ICD-10 - G47.33) 11/06/2023 Hypertensive heart a nd chronic kidney disease with heart failure and stage 1 through stage 4 chronic kidney disease, or unspecified chronic kidney disease (ICD-10 - I13.0) 11/06/2023 senior care (current) use of aspirin (ICD-10 - Z79.82) 11/06/2023 Chronic kidney disea se, stage 4 (severe) (ICD-10 - N18.4) 11/06/2023 Mixed hyperlipidemia (ICD-10 - E78.2) 11/06/2023 S/P cardiac pacemake r procedure (ICD-10 - Z95.0) 11/06/2023 Chronic heart failur e with preserved ejection fraction (ICD-10 - I50.32) 11/06/2023 Type 2 diabetes mellitus with diabetic chronic kidney disease (ICD-10 - E11.22) Recommended by CDI 11/06/2023 Type 2 diabetes mellitus with diabetic cataract, unspecified whether parts counterman insulin use (ICD-10 - E11.36) 11/06/2023 Type 2 diabetes mellitus with hyperglycemia (ICD-10 - E11.65) 11/06/2023 Diabetes mellitus wi th ophthalmic complication (ICD-10 - E11.39) 11/06/2023 Type 2 diabetes mellitus with hypoglycemia without coma (ICD-10 - E11.649) 11/06/2023 Type 2 diabetes mellitus with moderate nonproliferative diabetic retinopathy with macular edema, right eye (ICD-10 - E11.3311) 11/06/2023 Type 2 diabetes mellitus with mild nonproliferative diabetic retinopathy without macular edema, left eye (ICD-10 - E11.3292) 11/06/2023 senior care (current) use of insulin (ICD-10 - Z79.4) 11/06/2023 Blind left eye (ICD- 10 - H54.40) 11/06/2023 Gastroesophageal ref lux disease, unspecified whether esophagitis present (ICD-10 - K21.9) 11/06/2023 Osteoporosis (ICD-10 - M81.0) 11/06/2023 Major depressive disorder, recurrent episode, moderate degree (ICD-10 - F33.1) 11/06/2023 Osteoarthritis of multiple joints (ICD-10 - M15.9) 11/06/2023 senior care (current) use of opiate analgesic (ICD-10 - Z79.891) 11/06/2023 Constipation due to opioid therapy (ICD-10 - K59.09) 11/06/2023 Breast cancer, right breast (ICD-10 - C50.911) 11/06/2023 Adult general medica l exam (ICD-10 - Z00.00) 11/06/2023 Acute systolic (congestive) heart failure (ICD-10 - I50.21) 11/06/2023 Chronic heart failur e, unspecified heart failure type (ICD-10 - I50.9) 11/06/2023 JENNIFER (generalized anxiety disorder) (ICD-10 - F41.1) PLAN OF TREATMENT No Information History and Physical Notes * HPI (History of Present Illness) Category Sub-Category Detail Notes Depression Screening PHQ-9 Little inte rest or pleasure in doing things: More than half the days Feeling down, depressed, or hopeless: Mo re than half the days Trouble falling or staying asleep, or sl eeping too much: Several days Feeling tired or having little energy: S everal days Poor appetite or overeating: Not at all Feeling bad about yourself o r that you are a failure, or have let yourself or your family down: Not at all Trouble concentrating on thi ngs, such as reading the newspaper or watching television: Several days Moving or speaking so slowly that other people could have noticed; or the opposite, being so fidgety or restless that you have been moving around a lot more than usual: Not at all Thoughts that you would be b antoni off or of hurting yourself in some way: Not at all Total Score: 7 Interpretation: Mild Depression COVID-19 Screening (Question s Revised 09/23/2019) COVID-19 Screening Member or any household memb er has any new or worsening breathing problems:: No Member or any household memb er has other general or non-respiratory symptoms:: No Member or any household memb er has been in close contact with anyone diagnosed or suspected case of COVID:: No
--- OUTSIDE RECORDS SUMMARY | 2024-02-02 06:47 | XMS_ITS ---
Author Organization [facility] liance Address [address] [place] [address] Care Team Providers Care Bagel Maker Name Role Phone Angela Luz Primary Care Provider Nehal Skinner Unavailable [phone] Jamila Ledezma Unavailable [phone] REASON FOR VISIT TFTT MEDICATIONS Medication SIG (Take, Route, Frequency, Duration) Notes Start Date End Date Status Doxepin HCl 10 MG 1 capsule at bedtime as needed Orally Once a day Active Docusate Sodium 100 MG 1 capsule Orally TWICE A DAY Active Farxiga 10 MG 1 tablet Orally Once a day Active Esomeprazole Magnesium 20 MG 1 capsule Orally Once a day Active Losartan Potassium [...] Once a day reports mot taking Not-Taking Omeprazole 20 MG 1 capsule 30 minutes before morning meal Orally Once a day reports not taking Not-Taking Gabapentin 400 MG 1 capsule Orally 3 X daily reports not taking Not-Taking Vitamin B 12 100 MCG 1 tablet Orally Once a day reports not taking Not-Taking Victoza 18 MG/3ML 1 X Daily Subcutaneous At Night 1.8 MG/0.3 ML 09/15/2021 Not-Taking Furosemide 20 MG 3 Tablets Orally Once a day reports not taking Not-Taking Lactulose 10 GM/15ML 15 mL as needed Orally Once a day reports not taking Not-Taking Tresiba FlexTouch 200 UNIT/ML 42 in AM 48 in PM Subcutaneous Daily Reports taking 42 units in the AM and 48 in the evening Active Baqsimi One Pack reports not taking Not-Taking Naloxegol Oxalate 12.5 MG 1 tablet in the morning Orally Once a day reports not taking Not-Taking Carvedilol 6.25 MG 1 tablet with food Orally Twice a day reports not taking Not-Taking Albuterol Sulfate HFA 108 (90 Base) MCG/ACT 1 puff as needed Inhalation every 4 hrs Active Acetaminophen 325 MG 2 tabs Orally every 4 hrs Active NovoLOG FlexPen 100 UNIT/ML Per sliding scale - 30-40 units as directed Subcutaneous 3 times a day with meals 06/29/2021 Active Albuterol Sulfate (2.5 MG/3ML) 0.083% 3 mL as needed Inhalation Three times a day Active Plecanatide 3 MG 1 tablet Orally Once a day Active Trulance 3 MG 1 tablet Orally Once a day Active Triamcinolone Acetonide 0.1 % 1 application Externally Twice a day Active Pregabalin 75 MG 1 capsule Orally Twice a day reports taking as needed - education provided Active Senna 8.6 MG 2 tablets at bedtime as needed Orally Once a day Active Clotrimazole Anti-Fungal 1 % 1 application Externally Twice a day Active Trelegy Ellipta 200-62.5-25 MCG/INH 1 puff Inhalation Once a day Active Ventolin HFA 108 (90 Base) MCG/ACT 1 puff as needed Inhalation every 4 hrs Active Vitamin C 500 MG 1 CAP Orally daily Active Ursodiol 500 MG 1 tablet Orally Twice a day Active Torsemide 20 MG 2 tables Orally Twice daily in the AM and PM for 10 days Active Mirtazapine 15 MG 1 tablet at bedtime Orally Once a day CURRENTLY NOT IN BLISTER PACK Active Montelukast Sodium 10 MG 1 tablet Orally Once a day Active oxyCODONE-Acetaminoph en 5-325 MG 1 tablet as needed Orally every 6 hrs Active Sertraline HCl 100 MG 1 tablet Orally Once a day Active Encounters Encounter Location Date Provider Diagnosis [facility] [address] [place] [address] 01/16/2024 Jamila Ledezma PLAN OF TREATMENT No Information Progress Notes * Examination Category Sub-Category Detail Notes ADL-IADL Bathing Limited Assistan ce Toileting Supervision Dressing Limited Assistance Transfers Limited Assistance Bowel Continence Continent Bladder Continence Occasionally Inconti nent Feeding Independent Bed Transfer Supervision Telephone Independent Travel Dependent Shopping Limited Assistance Meal Preparation Limited Assistance Housework Limited Assistance Laundry Limited Assistance Medication Administration Limited Assist ance Finances Limited Assistance History and Physical Notes * HPI (History of Present Illness) Category Sub-Category Detail Notes COVID-19 Screening (Question s Revised 09/23/2019) COVID-19 Screening Member or any household memb er has any new or worsening breathing problems:: No Member or any household memb er has other general or non-respiratory symptoms:: No Member or any household memb er has been in close contact with anyone diagnosed or suspected case of COVID:: No Medication Review Medication Review What service was performed?: Post-discharge medication review Visit/Encounter Type: Telephone Was the medication list in e CW updated?: Yes- there were no new or changed medications Were medication discrepancies/issues yuly ntified?: No What interventions have been performed?: No discrepancies found
--- OUTSIDE RECORDS SUMMARY | 2024-02-02 06:48 | XMS_ITS | Patient Health Record ---
Author Organization [facility] liance Address [address] [place] [address] Care Team Providers Care Contour Path Tape Mill Operator Name Role Phone Angela Luz Primary Care Provider Nehal Skinner Unavailable [phone] Clinical, Operations Unavailable Unavailable Amari Villavicencio Unavailable [phone] Ramy Guerrero Unavailable [phone] Jamila Ledezma Unavailable [phone] Yamilet Barragan Unavailable [phone] ALLERGIES Allergen (clinical drug ingredient) Drug/Non Drug Allergy documented on EMR Reaction Allergy Type Onset Date Status Adhesive rash Allergy Active Latex Latex Unknown Allergy Active tramadol Tramadol lip swelling Drug Allergy Acti ve REASON FOR REFERRAL No Information MEDICATIONS Medication SIG (Take, Route, Frequency, Duration) Notes Start Date End Date Status Albuterol Sulfate HFA 108 (90 Base) MCG/ACT [...] 1 tablet Orally Once a day Active Trelegy Ellipta 200-62.5-25 MCG/INH 1 puff Inhalation Once a day Active Ventolin HFA 108 (90 Base) MCG/ACT 1 puff as needed Inhalation every 4 hrs Active Anastrozole 1 MG 1 tablet Orally Once a day Active Vitamin C 500 MG 1 CAP Orally daily Active amLODIPine Besylate 10 MG 1 tablet Orally Once a day Active Atorvastatin Calcium 40 MG 1 tablet Orally Once a day Active Ursodiol 500 MG 1 tablet Orally Twice a day Active Aspirin Adult Low Dose 81 MG 1 tablet Orally Once a day Active Doxepin HCl 10 MG 1 capsule at bedtime as needed Orally Once a day Active Trulance 3 MG 1 tablet Orally Once a day Active Docusate Sodium 100 MG 1 capsule Orally TWICE A DAY Active Farxiga 10 MG 1 tablet Orally Once a day Active Lactulose 10 GM/15ML 15 mL as needed Orally Once a day reports not taking Not-Taking Esomeprazole Magnesium 20 MG 1 capsule Orally Once a day Active Tresiba FlexTouch 200 UNIT/ML 42 in AM 48 in PM Subcutaneous Daily Reports taking 42 units in the AM and 48 in the evening Active Baqsimi One Pack reports not taking Not-Taking Losartan Potassium 25 MG 1 tablet Orally Once a day Active Naloxegol Oxalate 12.5 MG 1 tablet in the morning Orally Once a day reports not taking Not-Taking Furosemide 20 MG 3 Tablets Orally Once a day reports not taking Not-Taking Carvedilol 6.25 MG 1 tablet with food Orally Twice a day reports not taking Not-Taking Omeprazole 20 MG [...] At Night 1.8 MG/0.3 ML 09/15/2021 Not-Taking Mirtazapine 15 MG 1 tablet at bedtime Orally Once a day CURRENTLY NOT IN BLISTER PACK Active Montelukast Sodium 10 MG 1 tablet Orally Once a day Active oxyCODONE-Acetaminoph en 5-325 MG 1 tablet as needed Orally every 6 hrs Active Cyanocobalamin 1000 MCG 1 tablet Orally Once a day reports mot taking Not-Taking Sertraline HCl 100 MG 1 tablet Orally Once a day Active Triamcinolone Acetonide 0.1 % 1 application Externally Twice a day Active Torsemide 20 MG 2 tables Orally Twice daily in the AM and PM for 10 days Active Pregabalin 75 MG 1 capsule Orally Twice a day reports taking as needed - education provided Active Senna 8.6 MG 2 tablets at bedtime as needed Orally Once a day Active Clotrimazole Anti-Fungal 1 % 1 application Externally Twice a day Active IMMUNIZATIONS Vaccine Route Administration Date Status Comme nts COVID-19 COMIRNATY Vaccine, Fall 2022, SARS-CoV-2 virus strain Jayla XBB.1.5 Unknown 06/28/2023 Administered COVID-19, mRNA, LNP-S, [...] Notes Problem Other malaise (R53.81) Inactive confirmed 184960672 Problem Anxiety disorder (F41.9) Inactive confirmed Anxiety disorde r (020484878) Problem ROLAN on CPAP (G47.33) Active confirmed Obstructive sle ep apnea syndrome (46562983) Problem Type 2 diabetes mellitus with hyperglycemia (E11.65) Active confirmed 74277185 Problem Type 2 diabetes mellitus with diabetic chronic kidney disease (E11.22) Active confirmed 54586606 Recommended by CDI Problem oysterman (current) use of insulin (Z79.4) Active confirmed 873034813 Problem Mixed hyperlipidemia (E78.2) Active confirmed 636099597 Problem Osteoporosis (M81.0) Active confirmed Osteoporosis (12492420) Problem Arthritis (M19.90) Inactive confirmed Arthritis (5134725) Problem JENNIFER (generalized anxiety disorder) (F41.1) Active confirmed Generalized anxiety disorder (16123912) Problem Cataracts, bilateral (H26.9) Inactive confirmed Cataract (819484229) Problem Breast cancer (C50.919) Inactive confirmed Breast cancer (592459672) May 2019 Problem Osteoarthritis of multiple joints (M15.9) Active confirmed Osteoarthritis of multiple joints (285258172) Problem oysterman (current) use of opiate analgesic (Z79.891) Active confirmed [id number] Problem Chronic kidney disease, stage 4 (severe) (N18.4) Active confirmed Chronic kid ymaile disease stage 4 (651773565) Problem Gait instability (R26.81) Inactive confirmed Abnormal gait (79955896) Problem Type 2 diabetes mellitus with hypoglycemia without coma (E11.649) Active confirmed 18229070 Problem Major depressive disorder, recurrent episode, moderate degree (F33.1) Active confirmed Moderate recurrent major depression (20903433) Problem Constipation due to opioid therapy (K59.09) Active confirmed Constipation (25971406) Problem Acute systolic (congestive) heart failure (I50.21) Active confirmed 500953378 Problem shelter (current) use of aspirin (Z79.82) Active confirmed 302266238329276 Problem Hypertensive heart and chronic kidney disease with heart failure and stage 1 through stage 4 chronic kidney disease, or unspecified chronic kidney disease (I13.0) Active confirmed 62381427 Problem Breast cancer, right breast (C50.911) Active confirmed Malignant neoplasm of female breast (626434132) Problem Primary hypertension (I10) Inactive confirmed 94756868 Problem Moderate persistent asthma without complication (J45.40) Active confirmed 590958243 Problem Mild episode of recurrent major depressive disorder (F33.0) Inactive confirmed 674137050 Problem 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) Active confirmed 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 (049800989) Problem Adult general medical exam (Z00.00) Active confirmed Adult health examination (232303776) Problem Episode of recurrent major depressive disorder, unspecified depression episode severity (F33.9) Inactive confirmed 840601219 Problem Type 2 diabetes mellitus with mild nonproliferative diabetic retinopathy without macular edema, left eye (E11.3292) Active confirmed Proliferative diabetic retinopathy due to type II diabetes mellitus (6897763183918) Problem Type 2 diabetes mellitus with moderate nonproliferative diabetic retinopathy with macular edema, right eye (E11.3311) Active confirmed Moderate nonproliferative retinopathy of right eye due to diabetes mellitus (disorder) (804455819) Problem Chronic heart failure, unspecified heart failure type (I50.9) Active confirmed 86907377 Problem S/P cardiac pacemaker procedure (Z95.0) Active confirmed 103870962 Problem 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 Height 59 in 11/06/2023 Member reports checking glucose levels 3 times a day with duaghters assistance. Encounters Encounter Location Date Provider Diagnosis [facility] [address] [place] [address] 04/29/2023 Anesu Gambiza Moderate persistent asthma without complication J45.40 ; ROLAN on CPAP G47.33 ; Hypertensive heart and chronic kidney disease with heart failure and stage 1 through stage 4 chronic kidney disease, or unspecified chronic kidney disease I13.0 ; shelter (current) use of aspirin Z79.82 ; Chronic kidney disease, stage 4 (severe) N18.4 ; Mixed hyperlipidemia E78.2 ; S/P cardiac pacemaker procedure Z95.0 ; Chronic heart failure with preserved ejection fraction I50.32 ; 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.22 ; Type 2 diabetes mellitus with diabetic cataract, unspecified whether retirement insulin use E11.36 ; Type 2 diabetes mellitus with hyperglycemia E11.65 ; Diabetes mellitus with ophthalmic complication E11.39 ; Type 2 diabetes mellitus with hypoglycemia without coma E11.649 ; Type 2 diabetes mellitus with moderate nonproliferative diabetic retinopathy with macular edema, right eye E11.3311 ; Type 2 diabetes mellitus with mild nonproliferative diabetic retinopathy without macular edema, left eye E11.3292 ; oysterman (current) use of insulin Z79.4 ; 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 ; Gastroesophageal reflux disease, unspecified whether esophagitis present K21.9 ; Osteoporosis M81.0 ; Major depressive disorder, recurrent episode, moderate degree F33.1 ; Anxiety disorder F41.9 ; Osteoarthritis of multiple joints M15.9 ; shelter (current) use of opiate analgesic Z79.891 ; Constipation due to opioid therapy K59.09 ; Breast cancer, right breast C50.911 ; Adult general medical exam Z00.00 ; Acute systolic (congestive) heart failure I50.21 and Chronic heart failure, unspecified heart failure type I50.[address] [address] 08/30/2023 Ramy Guerrero Major depressive disorder, recurrent episode, moderate degree F33.1 and JENNIFER (generalized anxiety disorder) F41.[address] [address] 09/19/2023 Ramy Guerrero Major depressive disorder, recurrent episode, moderate degree F33.1 and JENNIFER (generalized anxiety disorder) F41.1 [facility] [place] [address] 11/06/2023 Operations Clinical Moderate persistent asthma without complication J45.40 ; ROLAN on CPAP G47.33 ; Hypertensive heart and chronic kidney disease with heart failure and stage 1 through stage 4 chronic kidney disease, or unspecified chronic kidney disease I13.0 ; oysterman (current) use of aspirin Z79.82 ; Chronic kidney disease, stage 4 (severe) N18.4 ; Mixed hyperlipidemia E78.2 ; S/P cardiac pacemaker procedure Z95.0 ; Chronic heart failure with preserved ejection fraction I50.32 ; 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.22 ; Type 2 diabetes mellitus with diabetic cataract, unspecified whether long term care phlebotomist insulin use E11.36 ; Type 2 diabetes mellitus with hyperglycemia E11.65 ; Diabetes mellitus with ophthalmic complication E11.39 ; Type 2 diabetes mellitus with hypoglycemia without coma E11.649 ; Type 2 diabetes mellitus with moderate nonproliferative diabetic retinopathy with macular edema, right eye E11.3311 ; Type 2 diabetes mellitus with mild nonproliferative diabetic retinopathy without macular edema, left eye E11.3292 ; shelter (current) use of insulin Z79.4 ; 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 ; Gastroesophageal reflux disease, unspecified whether esophagitis present K21.9 ; Osteoporosis M81.0 ; Major depressive disorder, recurrent episode, moderate degree F33.1 ; Osteoarthritis of multiple joints M15.9 ; shelter (current) use of opiate analgesic Z79.891 ; Constipation due to opioid therapy K59.09 ; Breast cancer, right breast C50.911 ; Adult general medical exam Z00.00 ; Acute systolic (congestive) heart failure I50.21 ; Chronic heart failure, unspecified heart failure type I50.9 and JENNIFER (generalized anxiety disorder) F41.1 [facility] [address] [place] [address] 01/16/2024 Jamila Ledezma [facility] (Closed) [address] [place] [address] 08/24/2023 Nehal Ballard [facility] (Closed) [address] [place] [address] 08/28/2023 Nehal Ballard [facility] [address] [place] [address] 01/30/2024 Yamilet Barragan ASSESSMENTS Encounter Date Diagnosis Assessment Notes Treatment [...] chronic kidney disease (ICD-10 - I13.0) 11/06/2023 oysterman (current) use of aspirin (ICD-10 - Z79.82) 04/29/2023 shelter (current) use of aspirin (ICD-10 - Z79.82) [...] diabetes mellitus with diabetic cataract, unspecified whether retirement insulin use (ICD-10 - E11.36) 11/06/2023 Type 2 diabetes mellitus with diabetic cataract, unspecified whether long term care phlebotomist insulin use (ICD-10 - E11.36) 04/29/2023 Type [...] edema, left eye (ICD-10 - E11.3292) 11/06/2023 shelter (current) use of insulin (ICD-10 - Z79.4) 04/29/2023 shelter (current) use of insulin (ICD-10 - Z79.4) [...] of multiple joints (ICD-10 - M15.9) 11/06/2023 shelter (current) use of opiate analgesic (ICD-10 - Z79.891) 04/29/2023 Osteoarthritis of multiple joints (ICD-10 - M15.9) 04/29/2023 oysterman (current) use of opiate analgesic (ICD-10 - [...] Insured Coverage Start Date Coverage End Date [facility] ([id number]) [id number] [address] [id number] Angela Stahl Self - patient is the insured 4 9 MEDICAL (GENERAL) HISTORY Medical History History [...] [facility] 02[facility]21-02[facility]03[facility]21 [facility]: HF exacerbation 11/26/20 [facility]: HF exacerbation 03/13/20
[2024-02-02] MEDS: Lactated Ringers 1,000 ML 100 ML IVCONT (07:39)
[2024-02-02 07:56] LABS: Glucose, Whole Blood 112 mg/dL (60-115)
--- NOTE | 2024-02-02 10:41 | P.BOP_ITS ---
Brief Operative Note Date of Service: 02/02/24 Pre-op diagnosis: Left shoulder impingement syndrome, left shoulder acromioclavicular joint arthritis Post-op diagnosis: same (Same as preoperative diagnoses as well as left shoulder long head biceps tendon tear) Procedure: Left shoulder diagnostic arthroscopy with left shoulder arthroscopic distal clavicle excision, left shoulder arthroscopic acromioplasty, left shoulder arthroscopic biceps tenotomy Implants: none Surgeon: Gato Dhaliwal MD Anesthesia: GETA and regional Was an Camera Prototyping Engineer used for this Procedure?: No Estimated blood loss (mL): 10 Pathology: none sent Condition: stable Disposition: PACU
--- NOTE | 2024-02-02 10:43 | W.PM.OPN ---
Operative Note Operative Note Date of Service: 02/02/24 Narrative: After the patient was identified as Angela Moreno and her left shoulder was initialed by myself the patient was brought to the holding area where a left shoulder interscalene regional block was performed by the anesthesiologist in routine fashion. The patient was then brought to the operating room where general anesthesia was induced by the anesthesiologist in routine fashion. The patient was given 2 g of IV Ancef preoperatively for infection prophylaxis. Examination under anesthesia of the patient's left shoulder showed full passive range of motion of the patient's left shoulder when compared to the right. The patient was gently positioned in the beach chair position with all bony prominences well padded. The patient's left shoulder region and upper extremity were prepped and draped in sterile fashion. A formal time-out was completed. A #11 scalpel blade was used to make a posterior portal 2 cm inferior and 1 cm medial to the posterolateral corner of the acromion. Blunt trocar technique was used to enter the glenohumeral joint in routine fashion. An anterior portal was made just lateral to the coracoid process after proper positioning was confirmed using a spinal needle. Diagnostic arthroscopy showed minimal degenerative changes of the glenoid and humeral head articular surfaces. There was no evidence of rotator cuff tearing. There was tearing of the long head biceps tendon measuring approximately 80% of the tendon width. A biceps tenotomy was then performed using the arthroscopic biter and arthroscopic shaver. There was no inflammation of the anterior joint capsule. The arthroscope was then placed from the posterior portal into the subacromial space. A lateral portal was made 2 fingerbreadths lateral to the anterior lateral corner of the acromion. The ArthroCare Wand was used to ablate soft tissues along the undersurface of the acromion as well as to excise the coracoacromial ligament. There was a sharp spur along the undersurface of the acromion which was removed using the hooded bur. The arthroscope was then placed into the lateral portal and the acromioplasty was completed with the bur in the posterior portal using the posterior aspect of the acromion as a cutting block. The ArthroCare Wand was then brought in through the anterior portal and was used to ablate soft tissues along the acromioclavicular joint and distal clavicle. The posterior and superior ligamentous structures were left intact. A distal clavicle excision of 8 mm was performed using the hooded bur. Any remaining bursal tissue was removed using the arthroscopic shaver. The subacromial space was irrigated and then drained. All arthroscopic instruments were removed. The 3 portals were closed with 3-0 nylon interrupted suture. The subacromial space was injected with Marcaine. Dry sterile dressing was placed over all incisions. The patient's left upper extremity was placed into a sling. The patient was awoken and extubated in the operating room. The patient was transferred to the recovery room in stable condition.
[2024-02-02] MEDS: cefTRIAXone sodium 1 GM in 0.9 % Sodium Chloride 50 ML IV (10:49)
== END 2024-02-02 12:20 | disposition home or self-care (01) ==
PROVIDERS: Nurse Practitioner; PCP Internal Medicine; Visit Provider Orthopaedic Surgery
PROC: (CPT 29805; principal; 2024-02-02 09:00)
DX: M75.42 Impingement syndrome of left shoulder (principal); S46.122A Laceration of muscle, fascia and tendon of long head of biceps, left arm, initial encounter; X50.9XXA Other and unspecified overexertion or strenuous movements or postures, initial encounter; M19.012 Primary osteoarthritis, left shoulder; E11.9 Type 2 diabetes mellitus without complications; I10 Essential (primary) hypertension; E78.5 Hyperlipidemia, unspecified; J45.909 Unspecified asthma, uncomplicated; G47.33 Obstructive sleep apnea (adult) (pediatric); Z99.89 Dependence on other enabling machines and devices; Z87.891 Personal history of nicotine dependence; Z85.3 Personal history of malignant neoplasm of breast; Z95.0 Presence of cardiac pacemaker; Z79.899 Other long term (current) drug therapy; Z79.02 Long term (current) use of antithrombotics/antiplatelets; Z79.4 Long term (current) use of insulin; Z79.82 Long term (current) use of aspirin; Y93.9 Activity, unspecified; Y92.9 Unspecified place or not applicable; Y99.9 Unspecified external cause status
CPT/HCPCS: 29824; 29826; 29822; 36415; 80048; 82947; 85027; 93005; J0131; J0171; J0665; J0690; J0696; J1100; J2250; J2405; J2704; J2795; J3010

== ENCOUNTER → 2024-02-02 06:45 | Outpatient (BNV) | payer OTHER, SELFPAY | PROVIDERS: PCP Internal Medicine; Visit Provider Orthopaedic Surgery | DX: S46.112A Strain of muscle, fascia and tendon of long head of biceps, left arm, initial encounter (principal); M75.42 Impingement syndrome of left shoulder; M19.012 Primary osteoarthritis, left shoulder | CPT/HCPCS: 29824; 29826; 29828 ==

== ENCOUNTER 2024-02-15 12:53 | Outpatient (AMB) | payer OTHER, SELFPAY ==
--- NOTE | 2024-02-15 12:55 | A.OFFVIS_ITS ---
Intake Visit Reasons: PO LT shoulder 02/02/24 Intake Note: Angela is a 68 year old female that presents today for a PO appointment of left shoulder 02/02/24 . She reports some pain but otherwise doing well. Neetu Kiser, her daughter. She denies any fevers or chills. Process Lead Services: Process Lead Offered & Declined Allergies tramadol [TRAMADOL] Allergy (Severe, Verified 02/02/24 07:21) THROAT, LIPS SWELLING, latex [LATEX] Allergy (Intermediate, Verified 02/02/24 07:21) RASH Medication List - Last Reconciled 02/15/24 by Gato Dhaliwal MD albuterol sulfate 90 mcg/actuation 2 puffs inhalation Q6H PRN albuterol sulfate 1 mg (1.2 mL) inhalation TID 30 days amlodipine (Norvasc) 10 mg PO DAILY anastrozole 1 tab PO DAILY 30 days aspirin 1 tab PO DAILY 30 days atorvastatin 40 mg PO DAILY CPAP (CPAP Machine/Device) As directed dapagliflozin propanediol (Farxiga) 10 mg PO DAILY 30 days docusate sodium 100 mg PO DAILY PRN doxepin 10 mg PO BEDTIME PRN 30 days insulin aspart U-100 (Novolog FlexPen U-100 Insulin aspart) INJECT 30 UNITS SUBCUTANEOUSLY BEFORE BREAKFAST AND BEFORE LUNCH AND INJECT 40 UNITS SUBCUTANEOU SLY BEFORE SUPPER 30 days insulin degludec (Tresiba FlexTouch U-200 insulin) 40 units subcut QNOON losartan 25 mg PO DAILY 30 days mirtazapine 15 mg PO BEDTIME 30 days montelukast 10 mg PO BEDTIME naloxegol (Movantik) 12.5 mg PO QAM nebulizers As directed oxycodone 10 mg (2 x 5 mg) PO Q4H PRN 1 week oxycodone-acetaminophen 5-325 mg 1 tab PO QID PRN 14 days pantoprazole 20 mg PO DAILY plecanatide (Trulance) 3 mg PO DAILY semaglutide (Ozempic) 2 mg subcut QWEEK sertraline 100 mg PO DAILY 30 days torsemide 40 mg (2 x 20 mg) PO DAILY 30 days Trelegy Ellipta 200-62.5-25 mcg (iyzsirfkmdn-knyuhenkr-jkytgxgl) 1 ea inhalation DAILY NS [facility] Medical History CKD (chronic kidney disease) Hx of radiation therapy Arthritis HTN (hypertension) Chest discomfort Anemia Chronic restrictive lung disease Dyspnea Asthma Obesity (BMI 30-39.9) nursing home (current) use of insulin Dyslipidemia Diabetic nephropathy associated with type 2 diabetes mellitus Diabetic retinopathy associated with type 2 diabetes mellitus Obstructive sleep apnea on CPAP Other and unspecified hyperlipidemia Essential hypertension Type 2 diabetes mellitus with unspecified complications GERD (gastroesophageal reflux disease) (~05/18/23) Breast cancer Depression Diabetes mellitus, type 2 Surgical History Hx of cardiac catheterization Hx of colonoscopy History of esophagogastroduodenoscopy (EGD) History of total abdominal hysterectomy History of cholecystectomy History of shoulder surgery History of 3 sections History of permanent cardiac pacemaker placement Family History Father Diabetes Brother Diabetes Sister Diabetes Mother No known problems Social History Household Members: Spouse and Family Housing: Apartment Are you a primary care transition mgr to a significant other at home: No Do you presently have visiting nurse or other home services: Yes (nurse) Alcohol intake: never Patient Tobacco Use Status: Former Tobacco user Tobacco use type: Cigarette Years Smoked: 12 years e-Cigarette/Vaping Use: Former Use Second Hand Smoke Exposure: No service: No Current occupational status: disabled Sexual orientation: Straight/Heterosexual Physical Exam Extrem Other: Left shoulder examination shows that the surgical incisions are healing well, no erythema, minimal discomfort with shoulder range of motion Assessment & Plan Assessment & Plan (1) Left shoulder pain: Code(s): M25.512 - Pain in left shoulder Category: Medical Plan Ms. Alberto Moreno is doing very well after undergoing left shoulder arthroscopic surgery on 02/02/2024. Her sutures were removed and Steri-Strips placed over her incisions. She will continue with her qmyno-qw-eqmtax exercises. She will contact me prior to her follow-up appointment in 6 weeks should any questions or concerns arise. Feel free to call me at any time should questions regarding her orthopedic management arise. Coding Level of Care Code Global (77191) Diagnoses Left shoulder pain M25.512
== END 2024-02-15 13:11 | disposition home or self-care (01) ==
PROVIDERS: PCP Internal Medicine; Visit Provider Orthopaedic Surgery
DX: M25.512 Pain in left shoulder (principal)
CPT/HCPCS: 99024

== ENCOUNTER → 2024-02-15 12:53 | Outpatient (BNVA) | payer OTHER, SELFPAY | PROVIDERS: PCP Internal Medicine; Visit Provider Orthopaedic Surgery | DX: Z47.89 Encounter for other orthopedic aftercare (principal); Z98.890 Other specified postprocedural states | CPT/HCPCS: 99212 ==

== ENCOUNTER 2024-03-25 08:54 | Outpatient (REF) | payer OTHER, SELFPAY ==
[2024-03-25 09:52] LABS: MANUAL DIFF FLAG NO
[2024-03-25 10:35] LABS: Basophils Absolute Auto 0.1 X10*3/uL (0.0-0.2); Basophils Percent Auto 0.9 % (0-2); Eosinophils Absolute Auto 0.3 X10*3/uL (0.0-0.4); Eosinophils Percent Auto 4.6 % (0-4); Hematocrit 27.7 % (37.0-47.0); Hemoglobin 8.8 g/dl (12.0-16.0); Imm Gran Abs Auto 0.02 X10*3/uL (0.00-0.03); Imm Gran Pct Auto 0.4 % (0.0-0.4); Lymphocytes Absolute Auto 1.2 X10*3/uL (1.2-4.9); Lymphocytes Percent Auto 22.7 % (20-40); Mean Corpuscular HGB Conc 31.8 g/dl (31.0-35.0); Mean Corpuscular Hemoglobin 21.9 pg (27.0-33.0); Mean Corpuscular Volume 69.1 fL (80.0-98.0); Mean Platelet Volume 10.1 fL (9.4-12.3); Monocytes Absolute Auto 0.5 X10*3/uL (0.1-1.2); Monocytes Percent Auto 9.5 % (2-11); Neutrophils Absolute Auto 3.4 x10*3/uL (2.0-8.3); Neutrophils Percent Auto 61.9 % (45-73); Platelet Count 220 X10*3/uL (160-400); Red Blood Count 4.01 X10*6/uL (4.20-5.50); Red Cell Distribution Width 16.8 % (11.0-16.0); White Blood Count 5.5 X10*3/uL (4.8-10.8)
[2024-03-25 12:43] LABS: Alanine Aminotransferase 18 U/L (0-31); Alkaline Phosphatase 119 U/L (39-117); Anion Gap 18 (12-20); Aspartate Amino Transferase 37 U/L (5-31); Bilirubin Direct 0.2 mg/dL (0.0-0.5); Bilirubin Total 0.5 mg/dL (0.0-1.0); Blood Urea Nitrogen 17 mg/dL (9-16); Calcium 9.7 mg/dL (8.4-10.2); Carbon Dioxide 26 mmol/L (22-29); Chloride 100 mmol/L (96-108); Estimated Glomerular Filt Rate 33; Glucose Random 148 mg/dL (60-115); Sodium 139 mmol/L (135-145); Total Protein 7.8 g/dL (6.5-8.0)
[2024-03-28 13:44] LABS: TS Negative Control Passed; TS Panel A 0; TS Panel B 0; TS Positive Control Passed; TSpotTB Negative (Negative)
== END 2024-03-25 08:55 | disposition home or self-care (01) ==
LOC: HO.LAB 08:54
PROVIDERS: PCP Internal Medicine; Visit Provider Internal Medicine Gastroenterology
DX: E11.65 Type 2 diabetes mellitus with hyperglycemia (principal); Z79.4 Long term (current) use of insulin; Z11.1 Encounter for screening for respiratory tuberculosis; R79.89 Other specified abnormal findings of blood chemistry; K75.81 Nonalcoholic steatohepatitis (NASH); R10.13 Epigastric pain
CPT/HCPCS: 36415; 80053; 80076; 82248; 85025; 85610; 86481; 99212

== ENCOUNTER 2024-03-25 08:54 | Outpatient (AMB) | payer OTHER, SELFPAY ==
--- NOTE | 2024-03-25 08:57 | MHC.OFFVIS ---
Vital Signs 03/25/24 08:59 Height 4 ft 9 in Weight 132 lb 4.438 oz BMI 28.6 BP 120/74 Blood Pressure Location Lt brachial Position Sitting Pulse 60 Intake Visit Reasons: 4 month follow up Intake Note: Angela presents in the office as a 4 month follow up. CC: She states that she is feeling okay but a little but of pains in the stomach. Denies irregular bowel movements. 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 Allergies tramadol [TRAMADOL] Allergy (Severe, Verified 03/25/24 09:00) THROAT, LIPS SWELLING, latex [LATEX] Allergy (Intermediate, Verified 03/25/24 09:00) RASH HPI HPI 4 month follow up: Details: 68 yr old f with Dm, depression, Pranav, CKD, CHF and neuropathy here for f/u RECAP She was seen by [facility] for assessment of anemia and abn LFT She had EGD, colonoscopy 02/10 with gastritis, esophagitis, polyps, melanosis coli, hemorrhoids and diverticulosis noted, no active bleeding anemia thought to be ACD and due to CKD she had her GB removed about 12 yrs ago path with serrated and adenomatous polyps LABS with stable HGB around 10 g/dl for several readings. AST, ALT, Alk p elevated US 11/2021- with coarse liver architecture and increased elastography consistent with portal hypertension US 05/13-- cirrhosis, no masses or tumour GI series: 06/14 1. Mild esophageal dysmotility 2. Small type I hiatal hernia 3. Mild to moderate gastroesophageal reflux. 4. Possible gastritis liver bx: Chronic hepatitis with moderate inflammation (grade 3), mild steatosis, and stage 3-4 fibrosis/early cirrhosis - US 01/12- small right kidney stone, possibel fatty liver, F0-1 by elastography INTERIM: she has epigastric pain, can be mild 3-4 d a week can be worse with food at times she has occ swallowing problems with food getting stuck, is taking low dose pantoprazole I was going to start her on pred for hepatitis but her last LFT were normal EXAM: GENERAL: The patient is well developed and nontoxic-obese. VITAL SIGNS:see workflow HEENT: Nonicteric sclerae, PERRLA, EOMI. Oropharynx clear. Moist mucous membranes. Conjunctivae appear well perfused. No thyroid mass. CHEST: Chest wall is nontender. HEART: Regular rate and rhythm without murmurs. LUNGS: Clear to auscultation bilaterally. ABDOMEN: Soft, positive bowel sounds, tender epigastrium, no organomegaly.no flank tenderness SKIN: No rash, no excessive bruising, petechiae, or purpura. NEUROLOGIC: Cranial nerves II-XII intact without motor/sensory deficit. Psych: nml affect A/P: 1/ Anemia, chronic disease, stable HGB, may also be due to portal hypertension and CKD 2/ abn LFt, with stage 3 inflammation and F3/4, lymphoplasmacytic infiltrate, prob ERA neg AIH--last LFT were normal PLAN: 1/ US liver for HCC screening q6 months 2/ commence low dose pred and check TPMT< will prob start low dose AZT if LFT worsen again, or restart ursodiol as this may have helped 3/ EGD 4/ recheck labs today PFSH Medical History CKD (chronic kidney disease) Hx of radiation therapy Arthritis HTN (hypertension) Chest discomfort Anemia Chronic restrictive lung disease Dyspnea Asthma 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 (BMI 30-39.9) 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 of 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 Dyslipidemia Diabetic nephropathy associated with type 2 diabetes mellitus Diabetic retinopathy associated with type 2 diabetes mellitus Obstructive sleep apnea on CPAP Other and unspecified hyperlipidemia Essential hypertension Type 2 diabetes mellitus with unspecified complications GERD (gastroesophageal reflux disease) (~05/18/23) Breast cancer Depression Diabetes mellitus, type 2 Surgical History Hx of cardiac catheterization Hx of colonoscopy History of esophagogastroduodenoscopy (EGD) History of total abdominal hysterectomy History of cholecystectomy History of shoulder surgery History of 3 sections History of permanent cardiac pacemaker placement Family History Father Diabetes Brother Diabetes Sister Diabetes Mother No known problems Social History Household Members: Spouse and Family Housing: Apartment Are you a primary customer care voice consultant to a significant other at home: No Do you presently have visiting nurse or other home services: Yes (nurse) Alcohol intake: never Patient Tobacco Use Status: Former Tobacco user Tobacco use type: Cigarette Years Smoked: 12 years e-Cigarette/Vaping Use: Former Use Second Hand Smoke Exposure: No service: No Current occupational status: disabled Sexual orientation: Straight/Heterosexual Physical Exam Vital Signs: Last Vital Signs Pulse 60 03/25/24 08:59 BP 120/74 03/25/24 08:59 BMI result Body Mass Index 28.6 Assessment & Plan Assessment & Plan (1) Epigastric abdominal pain: Code(s): R10.13 - Epigastric pain Category: Medical Plan: see above Coding Level of Care Code Est Pt Level 4 (28163) Diagnoses Epigastric abdominal pain R10.13
[2024-03-25 08:59] VITALS: BP 120/74; PULSE 60; BMI 28.6
== END 2024-03-25 09:20 | disposition home or self-care (01) ==
LOC: HO.HGI 08:55
PROVIDERS: PCP Internal Medicine; Visit Provider Internal Medicine Gastroenterology
DX: R10.13 Epigastric pain (principal)
CPT/HCPCS: 99214

== ENCOUNTER 2024-03-27 10:05 | Outpatient (AMB) | payer OTHER, SELFPAY ==
--- NOTE | 2024-03-27 10:08 | MHC.OFFVIS ---
Intake Visit Reasons: PO LT shoulder 02/02/24 DR-6 Wk Intake Note: Angela is a 68 year old female who presents with complaints of mild intermittent discomfort in her left shoulder after undergoing left shoulder arthroscopic surgery on 02/02/2024. She continues with her home stretching program. She denies any fevers or chills. Allergies tramadol [TRAMADOL] Allergy (Severe, Verified 03/27/24 10:12) THROAT, LIPS SWELLING, latex [LATEX] Allergy (Intermediate, Verified 03/27/24 10:12) RASH Medication List - Last Reconciled 03/27/24 by Gato Dhaliwal MD albuterol sulfate 90 mcg/actuation 2 puffs inhalation Q6H PRN albuterol sulfate 1 mg (1.2 mL) inhalation TID 30 days amlodipine (Norvasc) 10 mg PO DAILY anastrozole 1 tab PO DAILY 30 days aspirin 1 tab PO DAILY 30 days atorvastatin 40 mg PO DAILY CPAP (CPAP Machine/Device) As directed dapagliflozin propanediol (Farxiga) 10 mg PO DAILY 30 days docusate sodium 100 mg PO DAILY PRN doxepin 10 mg PO BEDTIME PRN 30 days insulin aspart U-100 (Novolog FlexPen U-100 Insulin aspart) INJECT 30 UNITS SUBCUTANEOUSLY BEFORE BREAKFAST AND BEFORE LUNCH AND INJECT 40 UNITS SUBCUTANEOUSLY BEFORE SUPPER 30 days insulin degludec (Tresiba FlexTouch U-200 insulin) 40 units subcut QNOON losartan 25 mg PO DAILY 30 days mirtazapine 15 mg PO BEDTIME 30 days montelukast 10 mg PO BEDTIME naloxegol (Movantik) 12.5 mg PO QAM nebulizers As directed oxycodone 10 mg (2 x 5 mg) PO Q4H PRN 1 week oxycodone-acetaminophen 5-325 mg 1 tab PO QID PRN 14 days pantoprazole 20 mg PO DAILY plecanatide (Trulance) 3 mg PO DAILY semaglutide (Ozempic) 2 mg subcut QWEEK sertraline 100 mg PO DAILY 30 days torsemide 40 mg (2 x 20 mg) PO DAILY 30 days Trelegy Ellipta 200-62.5-25 mcg (xwkajvrppcg-ryxnvadwv-fdrhqbtk) 1 ea inhalation DAILY NS PFSH Medical History CKD (chronic kidney disease) Hx of radiation therapy Arthritis HTN (hypertension) Chest discomfort Anemia Chronic restrictive lung disease Dyspnea Asthma 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 (BMI 30-39.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 Dyslipidemia Diabetic nephropathy associated with type 2 diabetes mellitus Diabetic retinopathy associated with type 2 diabetes mellitus Obstructive sleep apnea on CPAP Other and unspecified hyperlipidemia Essential hypertension Type 2 diabetes mellitus with unspecified complications GERD (gastroesophageal reflux disease) (~05/18/23) Breast cancer Depression Diabetes mellitus, type 2 Surgical History Hx of cardiac catheterization Hx of colonoscopy History of esophagogastroduodenoscopy (EGD) History of total abdominal hysterectomy History of cholecystectomy History of shoulder surgery History of 3 sections History of permanent cardiac pacemaker placement Family History Father Diabetes Brother Diabetes Sister Diabetes Mother No known problems Social History Household Members: Spouse and Family Housing: Apartment Are you a primary med care manager to a significant other at home: No Do you presently have visiting nurse or other home services: Yes (nurse) Alcohol intake: never Patient Tobacco Use Status: Former Tobacco user Tobacco use type: Cigarette Years Smoked: 12 years e-Cigarette/Vaping Use: Former Use Second Hand Smoke Exposure: No service: No Current occupational status: disabled Sexual orientation: Straight/Heterosexual Physical Exam Extrem Other: Left shoulder examination shows that the surgical incisions are well healed, no erythema, slightly decreased range of motion when compared to her right shoulder, no instability Assessment & Plan Assessment & Plan (1) Left shoulder pain: Code(s): M25.512 - Pain in left shoulder Category: Medical Plan Angela continues to do fairly well after undergoing left shoulder arthroscopic surgery on 02/02/2024. She will continue with her home stretching program. She does not wish to go to formal physical therapy. She will contact me prior to her follow-up appointment in 3 months should any questions or concerns arise. Feel free to call me at any time should questions regarding her orthopedic management arise. Coding Level of Care Code Global (84925) Diagnoses Left shoulder pain M25.512
== END 2024-03-27 10:21 | disposition home or self-care (01) ==
PROVIDERS: PCP Internal Medicine; Visit Provider Orthopaedic Surgery
DX: M25.512 Pain in left shoulder (principal)
CPT/HCPCS: 99024

== ENCOUNTER → 2024-03-27 10:06 | Outpatient (BNVA) | payer OTHER, SELFPAY | PROVIDERS: PCP Internal Medicine; Visit Provider Orthopaedic Surgery | DX: M25.512 Pain in left shoulder (principal); Z47.89 Encounter for other orthopedic aftercare; Z98.890 Other specified postprocedural states | CPT/HCPCS: 99212 ==

== ENCOUNTER 2024-04-30 09:25 | Outpatient (REF) | payer OTHER, SELFPAY ==
[2024-04-30 11:42] LABS: MANUAL DIFF FLAG NO
[2024-04-30 11:58] LABS: Basophils Percent Auto 0.6 % (0-2); Eosinophils Absolute Auto 0.3 X10*3/uL (0.0-0.4); Eosinophils Percent Auto 4.2 % (0-4); Hematocrit 23.8 % (37.0-47.0); Hemoglobin 7.5 g/dl (12.0-16.0); Imm Gran Abs Auto 0.07 X10*3/uL (0.00-0.03); Imm Gran Pct Auto 1.1 % (0.0-0.4); Lymphocytes Absolute Auto 1.2 X10*3/uL (1.2-4.9); Lymphocytes Percent Auto 18.8 % (20-40); Mean Corpuscular HGB Conc 31.5 g/dl (31.0-35.0); Mean Corpuscular Hemoglobin 21.4 pg (27.0-33.0); Mean Corpuscular Volume 67.8 fL (80.0-98.0); Mean Platelet Volume 9.7 fL (9.4-12.3); Monocytes Absolute Auto 0.6 X10*3/uL (0.1-1.2); Monocytes Percent Auto 9.4 % (2-11); Neutrophils Absolute Auto 4.4 x10*3/uL (2.0-8.3); Neutrophils Percent Auto 65.9 % (45-73); Platelet Count 270 X10*3/uL (160-400); Red Blood Count 3.51 X10*6/uL (4.20-5.50); White Blood Count 6.6 X10*3/uL (4.8-10.8)
[2024-04-30 12:23] LABS: Alanine Aminotransferase 17 U/L (0-31); Albumin Level 3.4 g/dL (3.5-5.0); Alkaline Phosphatase 103 U/L (39-117); Anion Gap 15 (12-20); Aspartate Amino Transferase 34 U/L (5-31); Bilirubin Total 0.3 mg/dL (0.0-1.0); Blood Urea Nitrogen 33 mg/dL (9-16); Calcium 8.7 mg/dL (8.4-10.2); Carbon Dioxide 25 mmol/L (22-29); Chloride 107 mmol/L (96-108); Estimated Glomerular Filt Rate 39; Glucose Random 84 mg/dL (60-115); Potassium 3.6 mmol/L (3.3-5.1); Sodium 143 mmol/L (135-145); Total Protein 7.3 g/dL (6.5-8.0)
[2024-04-30 12:47] LABS: Folate 6.9 ng/mL (> or = 4.0); Vitamin B12 1150 pg/mL (200-900)
[2024-04-30 12:48] LABS: Ferritin 19 ng/mL (10-250)
[2024-04-30 13:10] LABS: Creatinine Urine 81.21 mg/dL; Microalbum/Creatinine Ratio Ur 75.1 ug/mg cr (<30)
== END 2024-04-30 09:26 | disposition home or self-care (01) ==
LOC: HO.HHCL 09:25
PROVIDERS: Internal Medicine; Visit Provider Internal Medicine Gastroenterology
DX: E11.649 Type 2 diabetes mellitus with hypoglycemia without coma (principal); K75.81 Nonalcoholic steatohepatitis (NASH); R79.89 Other specified abnormal findings of blood chemistry; D64.9 Anemia, unspecified; Z79.4 Long term (current) use of insulin
CPT/HCPCS: 36415; 80053; 82043; 82570; 82607; 82728; 82746; 85025

== ENCOUNTER 2024-05-06 10:31 | Outpatient (REF) | payer OTHER, SELFPAY ==
--- NOTE | ~2024-05-06 | XR_ITS ---
EXAMINATION: XR CHEST CLINICAL INFORMATION: cough x over 1 month COMPARISON: X-ray 09/26/2022 TECHNIQUE: 2 views of the chest were obtained. FINDINGS: Left pectoral pacemaker with leads extending to the right atrium and right ventricle. Mediastinal clips. Cardiomediastinal silhouette is stable, within normal limits. Lungs are symmetrically expanded. There is bronchial wall thickening. No focal consolidation seen. No effusion, pulmonary edema. No pneumothorax is seen. Right humeral head bone anchor. Surgical clips in the right chest wall. Multilevel spine degeneration. XR/XR chest 2V IMPRESSION: Bronchial wall thickening suggestive of small airway disease. No focal consolidation. Electronically signed by: Salazar Garza MD 05/06/2024 03:25 PM EST
== END 2024-05-06 10:32 | disposition home or self-care (01) ==
LOC: HO.HHCX 10:31
PROVIDERS: Visit Provider Internal Medicine
DX: R05.9 Cough, unspecified (principal)
CPT/HCPCS: 71046

== ENCOUNTER 2024-06-06 07:30 | Outpatient (RCR) | payer OTHER, SELFPAY ==
[2024-05-03 08:55] VITALS: BP 147/52; PULSE 60; RESP 16; TEMP 36.6; O2SAT 100
[2024-05-03] MEDS: Iron Sucrose Complex 200 MG/10 ML VIAL IVPUSH (09:04)
[2024-05-09 07:28] VITALS: BP 173/48; PULSE 65; RESP 18; TEMP 36.3
[2024-05-09] MEDS: Iron Sucrose Complex 200 MG/10 ML VIAL IVPUSH (07:40)
[2024-05-16 07:29] VITALS: BP 157/48; PULSE 62; RESP 18; TEMP 36.2
[2024-05-16] MEDS: Iron Sucrose Complex 200 MG/10 ML VIAL IVPUSH (07:32)
[2024-05-23 07:13] VITALS: BP 154/47; PULSE 60; RESP 20; TEMP 36.9; O2SAT 99
[2024-05-23] MEDS: Iron Sucrose Complex 200 MG/10 ML VIAL IVPUSH (07:25)
[2024-05-30 07:50] VITALS: BP 143/43; PULSE 60; RESP 20; TEMP 37.2; O2SAT 98
[2024-05-30] MEDS: Iron Sucrose Complex 200 MG/10 ML VIAL IVPUSH (07:55)
[2024-06-06 07:34] VITALS: BP 153/41; PULSE 59; RESP 16; TEMP 36.2; O2SAT 100
[2024-06-06] MEDS: Iron Sucrose Complex 200 MG/10 ML VIAL IVPUSH (07:47)
== END 2024-06-06 07:55 | disposition home or self-care (01) ==
LOC: HO.INF 07:30
PROVIDERS: PCP Internal Medicine; Visit Provider Internal Medicine Gastroenterology
DX: D64.9 Anemia, unspecified (principal)
CPT/HCPCS: 96374; J1756

== ENCOUNTER → 2024-06-27 09:53 | Outpatient (AMB) | payer OTHER, SELFPAY ==
--- NOTE | 2024-06-27 09:55 | A.OFFVIS_ITS ---
Vital Signs 06/27/24 09:55 Height 4 ft 9 in Weight 132 lb BMI 28.6 Intake Visit Reasons: Left shoulder pain Intake Note: Angela is a 68 year old female who presents with complaints of mild to moderate discomfort in her left shoulder after undergoing left shoulder arthroscopic surgery on 02/02/2024. She continues with her home stretching program. She denies any numbness or tingling in either of her upper extremities. She denies any fevers or chills. She has tried Tylenol and anti-inflammatory medicines which gave her mild relief. Frame Operator Required: No Allergies tramadol [TRAMADOL] Allergy (Severe, Verified 06/27/24 09:56) THROAT, LIPS SWELLING, latex [LATEX] Allergy (Intermediate, Verified 06/27/24 09:56) RASH Medication List - Last Reconciled 06/27/24 by Gato Dhaliwal MD albuterol sulfate 90 mcg/actuation 2 puffs inhalation Q6H PRN albuterol sulfate 1 mg (1.2 mL) inhalation TID 30 days amlodipine (Norvasc) 10 mg PO DAILY anastrozole 1 tab PO DAILY 30 days aspirin 1 tab PO DAILY 30 days atorvastatin 40 mg PO DAILY CPAP (CPAP Machine/Device) As directed dapagliflozin propanediol (Farxiga) 10 mg PO DAILY 30 days docusate sodium 100 mg PO DAILY PRN doxepin 10 mg PO BEDTIME PRN 30 days insulin aspart U-100 (Novolog FlexPen U-100 Insulin aspart) INJECT 30 UNITS SUBCUTANEOUSLY BEFORE BREAKFAST AND BEFORE LUNCH AND INJECT 40 UNITS SUBCUTANEOUSLY BEFORE SUPPER 30 days insulin degludec (Tresiba FlexTouch U-200 insulin) 40 units subcut QNOON losartan 25 mg PO DAILY 30 days mirtazapine 15 mg PO BEDTIME 30 days montelukast 10 mg PO BEDTIME naloxegol (Movantik) 12.5 mg PO QAM nebulizers As directed oxycodone 10 mg (2 x 5 mg) PO Q4H PRN 1 week pantoprazole 20 mg PO DAILY plecanatide (Trulance) 3 mg PO DAILY semaglutide (Ozempic) 2 mg subcut QWEEK sertraline 100 mg PO DAILY 30 days sodium,potassium,mag sulfates 17.5-3.13-1.6 gram (Suprep Bowel Prep Kit) DILUTE; drink 1/2 at 6-8 pm and half at 11 PM- 1AM torsemide 40 mg (2 x 20 mg) PO DAILY 30 days Trelegy Ellipta 200-62.5-25 mcg (skyqzxadqiz-qkkarigeu-hxadanek) 1 ea inhalation DAILY NS PFSH Medical History CKD (chronic kidney disease) Hx of radiation therapy Arthritis HTN (hypertension) Chest discomfort Anemia Chronic restrictive lung disease Dyspnea Asthma Obesity (BMI 30-39.9) 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 Dyslipidemia Diabetic nephropathy associated with type 2 diabetes mellitus Diabetic retinopathy associated with type 2 diabetes mellitus Obstructive sleep apnea on CPAP Other and unspecified hyperlipidemia Essential hypertension Type 2 diabetes mellitus with unspecified complications GERD (gastroesophageal reflux disease) (~05/18/23) Breast cancer Depression Diabetes mellitus, type 2 Surgical History Hx of cardiac catheterization Hx of colonoscopy History of esophagogastroduodenoscopy (EGD) History of total abdominal hysterectomy History of cholecystectomy History of shoulder surgery History of 3 sections History of permanent cardiac pacemaker placement Family History Father Diabetes Brother Diabetes Sister Diabetes Mother No known problems Social History Household Members: Spouse and Family Housing: Apartment Are you a primary floor care specialist to a significant other at home: No Do you presently have visiting nurse or other home services: Yes (nurse) Alcohol intake: never Patient Tobacco Use Status: Former Tobacco user Tobacco use type: Cigarette Years Smoked: 12 years e-Cigarette/Vaping Use: Former Use Second Hand Smoke Exposure: No service: No Current occupational status: disabled Sexual orientation: Straight/Heterosexual Physical Exam Vital Signs: BMI result Body Mass Index 28.6 Const Other: Well-nourished well-developed very friendly female awake alert and oriented x3 in no acute distress Extrem Other: Left shoulder examination shows that the surgical incisions are well healed, no erythema, slightly decreased range of motion when compared to her right shoulder, 5/5 strength with supraspinatus testing, mild to moderate discomfort with resisted forward flexion, no instability Office Procedures AMB Joint Injection/Aspiration Joint Injection/Aspiration Primary Site: left shoulder Prep: site was prepped using aseptic technique Injected: 40 mg of, DepoMedrol and 1% plain lidocaine Procedure: The patient tolerated the procedure well Coding - Large joint Procedure code (CPT) selection complete Assessment & Plan Assessment & Plan (1) Impingement syndrome of left shoulder: Code(s): M75.42 - Impingement syndrome of left shoulder Category: Medical (2) Left shoulder pain: Code(s): M25.512 - Pain in left shoulder Category: Medical Plan Ms. Alberto Moreno presents with left shoulder pain due to rotator cuff tendinosis after undergoing arthroscopic surgery on 02/02/2024. The risks and benefits of a left shoulder cortisone injection were discussed at length with the patient. The patient wished to proceed. She tolerated the injection well. She will continue with her home stretching program. She will contact me prior to her follow-up appointment in 3 months should any questions or concerns arise. Feel free to call me at any time should questions regarding her orthopedic management arise. I spent 22 minutes in reviewing the patient's records and imaging studies, seeing the patient and documenting in the medical record. Orders: Orders AMB Joint Injection/Aspiration Today M75.42 - Impingement syndrome of left shoulder Coding Level of Care Code Est Pt Level 3 (29823) Complex EM visit Add On G2211 Diagnoses Impingement syndrome of left shoulder M75.42 Left shoulder pain M25.512 CPT Codes Coding - Large joint: 39576 - Large joint ([id number])
--- OUTSIDE RECORDS SUMMARY | 2024-06-27 09:57 | XMS_ITS | Encounter Summary ---
Author Organization [facility] Address [address] [facility] [address] [place] [address] Phone Care Team Providers Care Thickener Operator Name Role Phone Angela Luz MD Primary Care Provide r Reason for Visit * Reason Comments Med Refill Encounter Details Date Type Department Care Team (Late Contact Info) Description 06/26/2024 Refill [facility] [address] [facility] [address] [place] [phone] Beau Vargas MD [address] [facility] [address] [place] [phone] Hypertension; Type 2 diabetes mellitus with diabetic chronic kidney disease (HCC); Anemia in chronic kidney disease; Iron deficiency anemia, not otherwise specified Social History Tobacco Use Types Packs/Day Years Used Date Smoking Tobacco: Never Smokeless Tobacco: Never Alcohol Use Standard Drinks/Week Comments No 0 (1 standard drink = 0.6 oz pur e alcohol) Comments Unknown Sex and Gender Information Value Date Recorded Sex Assigned at Female 04/25/2022 7:28 PM EST Legal Sex Female 4:55 PM EST Gender Identity Not on file Sexual Orientation Not on file documented as of this encounter Plan of Treatment Upcoming Encounters Date Type Department Care Team (Late Contact Info) Description 08/05/2024 1:00 PM EDT Office Visit [facility] [address] [place] [phone] Beau Vargas MD [address] [facility] [address] [place] [address] documented as of this encounter Visit Diagnoses Diagnosis Hypertension Type 2 diabetes mellitus with diabetic chronic kidney disease (HCC) Anemia in chronic kidney disease Iron deficiency anemia, not otherwise specified documented in this encounter Care Teams Thickener Operator Relationship Specialty Start Date End Date Angela Luz MD [address] [place] [phone] PCP - General Internal Medicine 01/12/21 documented as of this encounter
--- OUTSIDE RECORDS SUMMARY | 2024-06-27 09:58 | XMS_ITS | Data Portability ---
Author Organization [employer] [place] [employer] [place] Address [address] [place] [id number] Care Team Providers Care Consultant Technology Name Role Phone [facility] Referring Provider [phone] Assessment Encounter Date Assessment Date Assessment LastModified by Organization Details LastModified Time 07/27/2021 07/27/2021 65 YOF w/ hx of HTN, COPD, DM, and recent falls due to generalised weakness in the legs. She notes she has felt generally weak and her knees have buckled on her. She does walk with a cane at baseline. No fevers, chills, chest pain, SOB, or increased LE swelling. EKG show normal sinus rhythm no acute ischemic changes or evidence of arrythmia [email or web address] Not available 07/27/2021 15:36:59 04/11/2022 04/11/2022 Called to rigoberto solis 66 y/o f w h/o CHF, breast CA who c/o rash x 4 days. Per medic, describes rash as pruritic, painful, burning limited to UE b/l, upper torso and chest. Denies any other assoc sxs or use of new creams/detergen ts. VSS, skin: rash along length of C4-C5 dermatome A/P: Presentation appears c/w shingles, neuropathic pain and location of rash consistent. Member at risk given breast ca diagnosis. Plan to treat accordingly. Alarm signs/sxs reviewed, advised to call 911 if onset. Care team, please f/u w member in 2-3 days. [email or web address] Not available 04/11/2022 14:51:28 Plan of Treatment Reminders Order Date Submit Date Provider Last Modified By Organization Details Last Modified Time Details Appointments None recorded. Lab CBC 2021 022 [facility], [address], [place], [id number], 11:32:54 Referral None recorded. Procedures None recorded. Surgeries None recorded. Imaging None recorded. Medication Orders valacyclovi r 1 gram tablet 2021 022 [facility], [address] [place] [address], [id number], 2 15:01:13 torsemide 40 mg tablet 2021 022 [facility], [address] [place] [address], [id number], 2 14:01:21 Patient TargetsNo targets recorded. Patient InstructionsNo instructions recorded. Reason for Referral None Reported. Medical Equipment None Reported. Allergies Allergen ID Allergen Name Allergen Category Reaction Reaction Severity Criticality Documentation Date Start Date Code Code System Note Provider Name and Address Organization Details Recorded Time 8628 latex environme nt,medica tion Not available Not available Not available 03/19/2024 57116 91 RxNorm Not Available [facility] - production 4 03:45:39 Medications Name Sig Start Date Stop Date Status Note LastModified by Organization Details LastModified Time Prescription - Renewal active Not Available Not Available No t Available furosemide 40 mg tablet TAKE 1 TABLET BY MOUTH ONCE DAILY active Not Available Not Available No t Available atorvastatin 40 mg tablet TAKE 1 TABLET BY MOUTH EVERY DAY active Not Available Not Available No t Available anastrozole 1 mg tablet TAKE 1 TABLET BY MOUTH EVERY DAY active Not Available Not Available No t Available carvedilol 6.25 mg tablet TAKE 1 TABLET BY MOUTH EVERY DAY WITH FOOD active Not Available Not Available No t Available prednisone 10 mg tablet TAKE 2 TABLETS BY MOUTH DAILY FOR 5 DAYS, THEN TAKE 1 TABLET DAILY FOR 5 DAYS active Not Available Not Available No t Available torsemide 20 mg tablet TAKE 2 TABLETS BY MOUTH TWICE DAILY active Not Available Not Available No t Available albuterol sulfate 2.5 mg/3 mL (0.083 %) solution for nebulization USE 1 AMPULE USING A NEBULIZER THREE TIMES DAILY active Not Available Not Available No t Available Vitamin C 500 mg tablet TAKE 1 TABLET BY MOUTH EVERY OTHER DAY active Not Available Not Available No t Available valacyclovir 1 gram tablet TAKE 1 TABLET BY MOUTH THREE TIMES DAILY FOR 10 DAYS active Not Available Not Available Not Available senna 8.6 mg tablet TAKE 2 TABLETS BY MOUTH AT BEDTIME NEEDED FOR CONSTIPATIO N active Not Available Not Available No t Available gabapentin 400 mg capsule TAKE 1 CAPSULE BY MOUTH THREE TIMES DAILY active Not Available Not Available Not Available permethrin 5 % topical cream APPLY BY TOPICAL ROUTE. THOROUGHLY MASSAGE INTO SKIN FROM HEAD TO SOLES OF FEET ONCE. LEAVE ON FOR 8 TO 14 HOURS, THEN REMOVE BY THOROUGH WASHING active Not Available Not Available No t Available cyanocobalam in (vit B-12) 1,000 mcg tablet TAKE 1 TABLET BY MOUTH EVERY DAY active Not Available Not Available No t Available doxepin 10 mg capsule TAKE 1 CAPSULE BY MOUTH AT BEDTIME NEEDED for SLEEP active Not Available Not Available No t Available aspirin 81 mg tablet,delay ed release TAKE 1 TABLET BY MOUTH EVERY DAY active Not Available Not Available No t Available oxycodone-ac etaminophen 5 mg-325 mg tablet TAKE 1 TABLET BY MOUTH EVERY 6 HOURS NEEDED active Not Available Not Available No t Available amlodipine 10 mg tablet TAKE 1 TABLET BY MOUTH EVERY DAY active Not Available Not Available No t Available isosorbide dinitrate 20 mg tablet TAKE 1 TABLET BY MOUTH THREE TIMES DAILY active Not Available Not Available Not Available losartan 25 mg tablet TAKE 1 TABLET BY MOUTH EVERY DAY active Not Available Not Available No t Available docusate sodium 100 mg capsule TAKE 1 CAPSULE BY MOUTH TWICE DAILY active Not Available Not Available No t Available omeprazole 20 mg capsule,aidan yed release TAKE 1 CAPSULE BY MOUTH EVERY DAY BEFORE A MEAL active Not Available Not Available No t Available Banophen 25 mg capsule TAKE 1 TO 2 CAPSULES BY MOUTH EVERY 4 TO 6 HOURS NEEDED FOR ITCHING active Not Available Not Available No t Available aspirin 81 mg chewable tablet CHEW 1 TABLET BY MOUTH EVERY DAY active Not Available Not Available No t Available folic acid 1 mg tablet TAKE 1 TABLET BY MOUTH EVERY DAY active Not Available Not Available No t Available montelukast 10 mg tablet TAKE 1 TABLET BY MOUTH AT BEDTIME active Not Available Not Available No t Available bisacodyl 5 mg tablet,delay ed release TAKE 2 TABLETS BY MOUTH ONCE DIRECTED BEFORE DE LA COLONOSCOPY active Not Available Not Available Not Available hydralazine 50 mg tablet TAKE 1 TABLET BY MOUTH THREE TIMES DAILY WITH FOOD active Not Available Not Available No t Available furosemide 20 mg tablet TAKE 1 TABLET BY MOUTH EVERY DAY active Not Available Not Available No t Available mirtazapine 15 mg tablet TAKE 1 TABLET BY MOUTH AT BEDTIME active Not Available Not Available No t Available Novolog U-100 Insulin aspart 100 unit/mL subcutaneous solution INJECT SUBCUTANEOU SLY PER SLIDING SCALE BLOOD SUGAR 100-149 = 14 UNITS, 150-199=16U , 200-249= 18U, 250-299= 20U, 300-349= 22U; 350-399= 24U, >400= 26U. MAX DAILY DOSE= 78U active Not Available Not Available No t Available polyethylene glycol 3350 17 gram/dose oral powder MIX AND DRINK DIRECTED BEFORE DE LA COLONOSCOPY active Not Available Not Available Not Available clotrimazole 1 % topical cream APPLY TO AFFECTED AREA(S) AND SURROUNDING AREA(S) TWICE DAILY IN THE MORNING AND EVENING active Not Available Not Available No t Available sertraline 50 mg tablet TAKE 1 TABLET BY MOUTH EVERY MORNING active Not Available Not Available No t Available Ventolin HFA 90 mcg/actuatio n aerosol inhaler INHALE 2 PUFFS BY MOUTH EVERY 6 HOURS NEEDED FOR WHEEZING active Not Available Not Available No t Available ciclopirox 0.77 % topical gel APPLY TO TOENAILS ONCE DAILY DIRECTED active Not Available Not Available Not Available azithromycin 500 mg tablet TAKE 1 TABLET BY MOUTH DAILY FOR 3 DAYS active Not Available Not Available N ot Available Novolog FlexPen U-100 Insulin aspart 100 unit/mL (3 mL) subcutaneous INJECT 8-22 UNITS SUBCUTANEOU SLY DIRECTED PER SLIDING SCALE active Not Available Not Available No t Available metoprolol tartrate 25 mg tablet TAKE 1/2 TABLET BY MOUTH TWICE DAILY active Not Available Not Available No t Available mirtazapine 7.5 mg tablet TAKE 1 TABLET BY MOUTH AT BEDTIME active Not Available Not Available No t Available nitrofuranto in monohydrate/ macrocrystal s 100 mg capsule TAKE 1 CAPSULE BY MOUTH EVERY TWELVE HOURS WITH FOOD UNTIL FINISHED active Not Available Not Available No t Available UltiCare Pen Needle 29 gauge x 1/2 USE FOUR TIMES DAILY WITH INSULIN active Not Available Not Available No t Available ferrous gluconate 324 mg (38 mg iron) tablet TAKE 1 TABLET BY MOUTH EVERY OTHER DAY active Not Available Not Available No t Available Glutose-15 40 % oral gel TAKE 1 TUBE NEEDED FOR BLOOD SUGAR LESS THAN 70mg/dl. REPEAT IN 15 MINUTES IF NO IMPROVEMENT active Not Available Not Available Not Available FreeStyle Lite Strips TEST BLOOD SUGAR FOUR TIMES DAILY active Not Available Not Available Not Available FeroSul 325 mg (65 mg iron) tablet TAKE 1 TABLET BY MOUTH EVERY OTHER DAY with vitamin c active Not Available Not Available No t Available Lantus Solostar U-100 Insulin 100 unit/mL (3 mL) subcutaneous pen INJECT 78 UNITS SUBCUTANEOU SLY EVERY EVENING active Not Available Not Available No t Available cholecalcife rol (vitamin D3) 125 mcg (5,000 unit) tablet TAKE 1 TABLET BY MOUTH DAILY active Not Available Not Available Not Available azelastine 205.5 mcg (0.15 %) nasal spray USE 2 SPRAYS IN EACH NOSTRIL TWICE DAILY active Not Available Not Available Not Available Tradjenta 5 mg tablet TAKE 1 TABLET BY MOUTH EVERY DAY active Not Available Not Available No t Available TRUEplus Lancets 33 gauge TEST BLOOD SUGAR FOUR TIMES DAILY active Not Available Not Available Not Available Victoza 3-Huey 0.6 mg/0.1 mL (18 mg/3 mL) subcutaneous pen injector INJECT 1.2 MG SUBCUTANEOU SLY EVERY DAY active Not Available Not Available No t Available Farxiga 10 mg tablet TAKE 1 TABLET BY MOUTH EVERY DAY active Not Available Not Available No t Available Farxiga 5 mg tablet TAKE 1 TABLET BY MOUTH EVERY DAY IN THE MORNING active Not Available Not Available No t Available Pentips Pen Needle 32 gauge x 5/32 USE SIX TIMES DAILY active Not Available Not Available Not Available Tresiba FlexTouch U-200 insulin 200 unit/mL (3 mL) subcutaneous pen INJECT 80 UNITS SUBCUTANEOU SLY EVERY DAY DIRECTED active Not Available Not Available No t Available Tresiba FlexTouch U-100 insulin 100 unit/mL (3 mL) subcutaneous pen INJECT 76 UNITS SUBCUTANEOU SLY ONCE DAILY active Not Available Not Available No t Available Narcan 4 mg/actuation nasal spray FOR SUSPECTED OPIOID OVERDOSE. SPRAY 0.1mL IN ONE NOSTRIL. REPEAT IN ALTERNATE NOSTRIL 2-3 MINUTES IF NEEDED. SEEK MEDICAL ATTENTION IMMEDIATELY EVEN IF PATIENT RESPONDS. active Not Available Not Available No t Available Humulin R U-500 (Conc) Insulin Kwikpen 500 unit/mL (3 mL) subcutaneous INJECT 120 UNITS SUBCUTANEOU SLY BEFORE BREAKFAST AND 80 UNITS BEFORE LUNCH active Not Available Not Available No t Available Trulance 3 mg tablet active Not Available Not Available No t Available Baqsimi 3 mg/actuation nasal spray USE DIRECTED IN NOSTRIL FOR LOW BLOOD SUGAR < 54 REPEAT IN 15 MINUTES IF NO IMPROVEMENT active Not Available Not Available Not Available Trelegy Ellipta 200 mcg-62.5 mcg-25 mcg powder for inhalation INHALE 1 PUFF EVERY DAY AT THE SAME TIME active Not Available Not Available No t Available torsemide 40 mg tablet Take 1 tablet twice a day by oral route for 30 days. 2021 active Not Available Not Available Not Avai lable Vitals Date Recorded Respiratory rate Oxygen saturation Oxygen saturation in Arterial blood by Pulse oximetry Heart rate Heart rate Respiratory rate Body weight Body temperature Oxygen saturation Oxygen saturation in Arterial blood by Pulse oximetry Systolic blood pressure Diastolic blood pressure Systolic blood pressure Diastolic blood pressure Provider Name and Address Organization Details Last Updated DateTime 2 12 /min 98 % 98 % 65 /min 65 /min 12 /min 28122.7 2 g 98.4 [degF] 98 % 98 % 146 mm[Hg] 52 mm[Hg] 146 mm[Hg] 52 mm[Hg] Not Available [employer] [facility] production 2 11:35:05 Date Recorded Respiratory rate Heart rate Oxygen saturation Oxygen saturation in Arterial blood by Pulse oximetry Body temperature Systolic blood pressure Diastolic blood pressure Provider Name and Address Organization Details Last Updated DateTime 2 18 /min 62 /min 97 % 97 % 98.1 [degF] 135 mm[Hg] 86 mm[Hg] Not Available [employer] [employer] 13:40:32 Social History None recorded. Functional Status None recorded. Mental Status None recorded. Family History Nothing Reported. Medical History No medical history recorded. Gynecological HistoryNo gynecological history recorded. Obstetrics History GPAL:G 0 P 0 0 0 0 Past Encounters Encounter ID Performer Location Encounter Start Date Encounter Closed Date Diagnosis/Indication Diagnosis SNOMED-CT Code Diagnosis ICD10 Code Diagnosis Note [id number] Pete Cunha MD [facility] - [facility] [address] [place] [phone] 07/27/2021 13:19:49 01/21/2022 11:58:08 Fatigue 10183614 R53.83 [id number] Kanchan Meza MD [facility] - [facility] [address] [place] [id number] 04/11/2022 11:34:58 04/13/2022 12:51:20 Herpes zoster 5665111 B02.9 [id number] Remi Ríos MD Main - [address] [phone] 04/13/2022 13:40:15 04/15/2022 10:51:28 Chronic systolic heart failure [id number] I50.22 This 66-year-ol d female with a history of type 2 diabetes and CHP called [facility] because of shortness of breath and exertional dyspnea without chest pain. Her EKG was unremarkab le. I ordered Lasix 40 mg IV and I called in a refill for her Demadex 40 mg bid. She will follow-up with her PCP. She will call 911 if her condition worsens. The patient agreed with this plan. Hyperglyce renato due to type 2 diabetes mellitus [id number] 34700 E11.65 This 66-year-ol d female with poorly controlled type 2 diabetes took her usual dose of Novolog 30 u this morning. Now her glucose is 527. I recommende d that she give herself an additional 20 units of Novolog now. She will contact her PCP regarding further management decisions. The patient agreed with this plan. Health Concerns Section Related Observation LastModified by Organization Detai ls LastModified Time None Recorded Concern Status LastModified by Organization Details LastModified Time None Recorded Advance Directives Directive None Recorded Payers Encounter Date Sequence Insurance Name Policy Number Policy Jin Covered Member ID Jin Member ID Guarantor Name 07/27/2021 1 [facility] - DOS PRIOR TO 2022 - DUAL ELIGIBLE (MEDICARE REPLACEMENT/ADV ANTAGE - HMO) Angela Dominguez Josh [id number] Angela Dominguez Moreno 04/11/2022 1 [facility] - DOS PRIOR TO 2022 - DUAL ELIGIBLE (MEDICARE REPLACEMENT/ADV ANTAGE - HMO) Angela Dominguez Moreno [id number] Angela Dominguez Moreno 04/13/2022 1 [facility] - DOS PRIOR TO 2022 - DUAL ELIGIBLE (MEDICARE REPLACEMENT/ADV ANTAGE - HMO) Angela Caceresagena [id number] Angela Paza Notes Date Note Type Note Provider Name and Address Organization Details Recorded Time 07/27/2021 text/html 65 YOF w/ hx of HTN, COPD, DM, and recent falls due to generalised weakness in the legs. She notes she has felt generally weak and her knees have buckled on her. She does walk with a cane at baseline. No fevers, chills, chest pain, SOB, or increased LE swelling. Pete Cunha MD [address] [facility],[address], [place], [phone], [place] [employer] 07/27/2021 15:37:23 04/11/2022 text/html HPI: 66 y/o female admitted to palliative care on 01/19/22 with palliative diagnosis of CHF. Comorbidities include: SSS, tricuspid regurgitation, DM II, HTN, glaucoma, obesity, vitamin B insufficiency, mild ROLAN, venous insufficiency HLD, PAD, s/p pacemaker, right breast cancer s/p radiation on oral chemo, osteopenia, anemia, and CKD stage 4. Member with worsening rash and itching to chest and arms for past 4 days unrelieved with Benadryl. Denies sick contacts, fever, chills, drainage, use of new skin products/detergents , changes in medication, or worsening shortness of breath. ................... ................... ................... ................... ................... ................... ................... ........ CRC Nursing Assessment: Comments: CRC RN DID NOT NEED FURTHER INFO ................... ................... ................... ................... ................... ................... ................... ........ Application Development Consultant Note: Dispatched to the home of 66-year-old female patient who has a rash which started four days ago on her body. Patient denies any new laundry detergent, soaps, clothes, or medication. Otherwise patient? s vitals are is noted and is stable. Question jamal Spoke to Dr. SANTORO and she is calling in a prescription for valacyclovir and will treat patient for the shingles. Educated family on treatment and if rash progresses to face ears, her eyes, the patient should go to the emergency room. ................... ................... ................... ................... ................... ................... ................... ........ Disposition: Fulfilled Kanchan Meza MD [address] [place] [address],[address] [facility], [place], [phone], [employer] 04/13/2022 09:19:05 04/13/2022 text/html HPI: This RN who has not seen member with hx. of CHF since 12/22/21 received call from member's daughter Nora, who reports member has had a 5lb. weight gain in the past 2 days with some increased SOB. Daughter did call electric sign assembler who is not in the office. ................... ................... ................... ................... ................... ................... ................... ........ CRC Nursing Assessment: Comments: CRC RN DID NOT NEED FURTHER INFO Remi Ríos MD [address] [place] [address],[address], [place], [phone], [employer] [employer] 04/13/2022 13:53:09 OBGyn Episode No OBEpisode recorded.
--- OUTSIDE RECORDS SUMMARY | 2024-06-27 09:58 | XMS_ITS | Clinical Summary ---
Author Organization [facility] Address [address] [place] [address] Phone Care Team Providers Care Service Tester Name Role Phone Angela Luz MD Primary Care Provide r Allergies Active Allergy Reactions Criticality Noted Date Comments Latex 07/08/2019 Tramadol 07/08/2019 Medications Medication Sig Dispensed Refills Start Date End Date Status acetaminophen (TYLENOL 8 HOUR) 650 mg 8 hr tablet Take 1 tablet (650 mg total) by mouth every 8 hours as needed. Active albuterol 2.5 mg /3 mL (0.083 %) nebulizer solution Take 3 mL (2.5 mg total) by nebulization every 6 (six) hours as needed for wheezing. Active albuterol sulfate 90 mcg/actuation aerosol powdr breath activated Inhale into the lungs. Active amLODIPine (NORVASC) 10 mg tablet Take 1 tablet (10 mg total) by mouth 1 (one) time each day. Active anastrozole (ARIMIDEX) 1 mg TAKE 1 TABLET BY MOUTH EVERY EVENING 09/19/2023 Active ascorbic acid (VITAMIN C) 250 mg tablet Take 2 tablets (500 mg total) by mouth daily. Active aspirin 81 mg EC tablet Take 1 tablet (81 mg total) by mouth 1 (one) time each day. Active atorvastatin (LIPITOR) 40 mg tablet Take 1 tablet (40 mg total) by mouth 1 (one) time each day. Active azelastine (ASTELIN) 137 mcg (0.1 %) nasal spray spray or apply 1 spray inside Nose 2 (two) times a day. Use in each nostril as directed Active carvediloL (COREG) 6.25 mg tablet Take by mouth 2 (two) times a day with meals. Active clotrimazole (LOTRIMIN) 1 % cream Apply topically 2 (two) times a day. Active cyanocobalamin (VITAMIN B-12) 500 mcg tablet Take 1,000 mcg by mouth daily. Active dapagliflozin propanediol (Farxiga) 5 mg tablet Take by mouth. Active diphenhydrAMINE (BENADRYL) 25 mg capsule Take 1 capsule (25 mg total) by mouth Every 4 hours as needed. Active docusate sodium (COLACE) 100 mg capsule Take 1 capsule (100 mg total) by mouth 2 (two) times a day. Active doxepin (SINEquan) 10 mg capsule Take 1 capsule (10 mg total) by mouth every night at bedtime. Active esomeprazole (NexIUM) [address] capsule Take 1 capsule (20 mg total) by mouth every morning before breakfast. Active fluticasone-umeclid inium-vilanterol (TRELEGY ELLIPTA) 200-62.5-25 mcg inhaler Inhale into the lungs. Active gabapentin (NEURONTIN) 400 mg capsule Take 1 capsule (400 mg total) by mouth 3 (three) times a day. Active INSULIN ASPART U-100 SUBQ Inject 8 Units under the skin 3 (three) times a day with meals. Active insulin degludec (Tresiba U-100 Insulin) 100 unit/mL injection Inject under the skin. Active insulin glargine (LANTUS) 100 unit/mL injection Inject under the skin every night at bedtime. Active lactulose (CHRONULAC) solution Take 30 mL (20 g total) by mouth once. Active liraglutide (Victoza 2-Huey) 0.6 mg/0.1 mL (18 mg/3 mL) injection Inject under the skin. Active losartan (COZAAR) 100 mg tablet Take 25 mg by mouth daily. Active mirtazapine (REMERON) 7.5 mg tablet Take 2 tablets (15 mg total) by mouth every night at bedtime. Active montelukast (SINGULAIR) 10 mg tablet Take 1 tablet (10 mg total) by mouth every night at bedtime. Active naloxegoL (Movantik) 12.5 mg tablet Take 12.5 mg by mouth daily. Active oxyCODONE-acetamino phen (PERCOCET) 5-325 mg per tablet Take 1 tablet by mouth Every 4 hours as needed. Active pen needle, diabetic (Pen Needle) 31 gauge x 3/16 needle by Does not apply route. Active sertraline (ZOLOFT) 100 mg tablet Take 1 tablet (100 mg total) by mouth 1 (one) time each day. Active torsemide (DEMADEX) 20 mg tablet Take 1 tablet (20 mg total) by mouth 1 (one) time each day. Active blood-glucose meter misc by Does not apply route. Active glucose blood (Blood Glucose Test) test strip 1 each by Other route as needed for other. Use as instructed Active FREESTYLE LANCETS MISC 1 each by Other route as needed for other. Use as instructed Active naloxone HCl (NARCAN NASL) spray or apply inside Nose. Active RSV vacc, preF A and preF B/PF (ABRYSVO, PF, IM) Inject into the muscle. Active Ozempic 0.25 mg or 0.5 mg (2 mg/3 mL) injection pen INJECT 0.5 MG SUBCUTANEOUSLY EVERY 7 DAYS IN THE ABDOMEN, THIGHS, OR UPPER ARM, ROTATE INJECTION SITES. Active Encounters Date Type Department Care Team Description 04/19/2024 8:47 AM EST - 04/19/2024 11:59 PM EST Hospital Encounter [facility] at [address] [address] Encounter for screening mammogram for breast cancer Discharge Disposition: Home or Self Care 04/19/2024 8:46 AM EST - 04/19/2024 11:59 PM EST Hospital Encounter [facility] Bone Density [address] [place] [address] Osteopenia, unspecified location; Post-menopausal Discharge Disposition: Home or Self Care 03/28/2024 9:00 AM EST Office Visit [facility] Hematology Oncology [address] [place] [phone] Nabeel March MD Invasive ductal carcinoma of right breast (CMS/HCC) (Primary Dx) from Last 3 Months Immunizations Name Administration Dates Next Due COVID-19 (Pfizer/Comirnaty) 12yo and older 06/28/2023 [facility] SARS-CoV-2 COVID-19, mRNA, LNP-S, preservative free 06/10/2022,10/07/2021,03/02/2021,2020,07/02/2020 Surgical History Surgery Date Site/Laterality Comments OTHER SURGICAL HISTORY PROCEDURE:HISTORICAL CHOLECYSTECTOMY PROCEDURE:CHOLECYSTECTOMY COLONOSCOPY PROCEDURE:COLONOSCOPY OTHER SURGICAL HISTORY PROCEDURE:HISTORICAL EYE SURGERY OTHER SURGICAL HISTORY PROCEDURE:HISTORICAL SHOULDER SURGERY HYSTERECTOMY PROCEDURE:HYSTERECTOMY BREAST LUMPECTOMY Medical History Medical History Date Comments Obesity DX:Obesity Post-nasal drainage DX:Post-nasa l drainage Allergic rhinitis due to pollen DX:Allergic rhinitis due to pollen Cervical spondylosis with radiculopathy DX:Cervical spondylosis with radiculopathy Chronic neck pain DX:Chronic nec k pain Methacholine challenge positive DX:Methacholine challenge positive Moderate persistent asthma DX:Mo derate persistent asthma CKD stage 3 due to type 2 di abetes mellitus ([facility]/HCC) DX:CKD stage 3 due to type 2 diabetes mellitus (HCC) Insomnia DX:Insomnia Chronic shoulder pain DX:Chronic shoulder pain Type 2 diabetes mellitus wit h diabetic neuropathy (CMS/HCC) DX:Type 2 diabetes mellitus with diabetic neuropathy (HCC) Heel pain DX:Heel pain Venous insufficiency DX:Venous i nsufficiency HTN, goal below 140/80 DX:HTN, g oal below 140/80 Vitamin B12 deficiency anemia DX :Vitamin B12 deficiency anemia Allergic rhinitis DX:Allergic rh initis Solitary pulmonary nodule DX:Alisa itary pulmonary nodule Nonproliferative diabetic re tinopathy associated with type 2 diabetes mellitus (CMS/HCC) DX:Nonproliferative diabetic retinopathy associated with type 2 diabetes mellitus (HCC) Mild obstructive sleep apnea DX: Mild obstructive sleep apnea RLS (restless legs syndrome) DX: RLS (restless legs syndrome) Anemia DX:Anemia PAD (peripheral artery disease) (CMS/HCC) DX:PAD (peripheral artery disease) ([facility]) Hyperlipidemia DX:Hyperlipidemi a Essential hypertension, benign D X:Essential hypertension, benign Glaucoma DX:Glaucoma DM (diabetes mellitus) type II controlled, neurological manifestation (CMS/HCC) DX:DM (diabetes m ellitus) type II controlled, neurological manifestation ([facility]) Breast cancer ([facility]/HCC) Social History Tobacco Use Types Packs/Day Years Used Date Smoking Tobacco: Former Smokeless Tobacco: Never Alcohol Use Standard Drinks/Week Comments No 0 (1 standard drink = 0.6 oz pur e alcohol) Sex and Gender Information Value Date Recorded Sex Assigned at Not on file Gender Identity Not on file Sexual Orientation Not on file Job Start Date Occupation Industry Not on file Not on file Not on file Obstetrics History Para Term AB IAB SAB Ectopic Multiple Livin g Live Births 3 Last Filed Vital Signs Vital Sign Reading Time Taken Comments Blood Pressure 147/49 03/28/2024 9:10 AM EST Pulse 61 03/28/2024 9:10 AM EST Temperature 37.1 ??C (98.8 ??F) 03/28/2024 9:10 AM ES T Respiratory Rate - - Oxygen Saturation 100% 03/28/2024 9:10 AM EST Inhaled Oxygen Concentration - - Weight 61.7 kg (136 lb) 04/19/2024 9:25 AM EST Height 142.2 cm (4' 8 ) 04/19/2024 9:25 AM EST Body Mass Index 30.49 04/19/2024 9:25 AM EST Plan of Treatment Upcoming Encounters Date Type Department Care Team (Late st Contact Info) Description 11/25/2024 9:00 AM EDT Office Visit [facility] Hematology Oncology [address] [place] [phone] Nabeel March MD [address] [place] [address] Health Maintenance Due Date Last Done Comments Diabetes: Annual Foot Exam 1964 Diabetes: Annual Retina Eye Exam 1965 Colorectal Cancer Screening: Colonoscopy 04/28/2022 Depression Screening 04/28/2022 Falls Risk Assessment 04/28/2022 Medicare Annual Wellness Visit 04/28/2022 Social Influencers of Health Screening 04/28/2022 Diabetes: Blood Sugar Control Test (HGBA1C) 09/23/2024 03/26/2024, 03/29/2021 Diabetes: Annual Urine Albumin-Creatinine Ratio (uACR) 12/26/2024 12/27/2023, 10/07/2022 Diabetes: Annual GFR (Glomerular Filtration Rate) 01/22/2025 01/23/2024, 01/13/2022 Hypertension/CHF/CAD Annual BMP Blood Test 01/22/2025 01/23/2024, 01/13/2022 Breast Cancer Screening 04/19/2026 04/19/20 24, 04/17/2023, 06/03/2019, Additional history exists Cholesterol Screening (Lipid Panel) 05/23/2028 05/23/2023, 05/23/2023 DTaP,Tdap,and Td Vaccines (4 - Td or Tdap) 08/20/2033 08/21/2023, 03/28/2013, 08/21/2012 Osteoporosis Screening (Bone Density Screening) 04/19/2034 04/19/2024, 01/21/2022, 12/18/2019 Hepatitis C Screening Completed 11/17/2021 Pneumococcal Vaccine: 65+ Years Completed 06/28/2023, 03/30/2021, 05/08/2017, Additional history exists RSV Immunization Patients 60+ Years Old Completed 07/20/2023 Zoster Vaccines Completed 07/20/2023, 03/30/2021 Hepatitis A Vaccines Aged Out 12/11/2023 No long er eligible based on patient's age to complete this topic Hepatitis B Vaccines Completed 12/11/2023, 12/07/2023, 08/21/2023 COVID-19 Vaccine Completed 03/26/2024, 11/2023, 06/10/2022, Additional history exists Influenza Vaccine Completed 03/26/2024, , 02/26/2021, Additional history exists HIB Vaccines Aged Out No longer eligi ble based on patient's age to complete this topic HPV Vaccines Aged Out No longer eligi ble based on patient's age to complete this topic IPV Vaccines Aged Out No longer eligi ble based on patient's age to complete this topic MMR Vaccines Aged Out No longer eligi ble based on patient's age to complete this topic Meningococcal ACWY Vaccine Aged Out N o longer eligible based on patient's age to complete this topic RSV Immunization Patients Under 20 months Aged Out No longer eligible based on patient's age to complete this topic Varicella Vaccines Aged Out No longer eligible based on patient's age to complete this topic Procedures Procedure Name Priority Date/Time Associated Diagnosis Comments MG MAMMO DIGITAL SCREENING W RANDELL BILAT Routine 04/19/2024 10:02 AM EST Encounter for screening mammogram for breast cancer BD BONE DENSITY DXA AXIAL SKELETON Routine 04/19/2024 9:31 AM EST Osteopenia, unspecified location Post-menopausal LIPID PANEL Routine 05/23/2023 URINE ALBUMIN CREATININE RATIO Routine 10/07/2022 ANNUAL BMP BLOOD TEST Routine 01/13/2022 HEPATITIS C SCREENING Routine 11/17/2021 HEMOGLOBIN A1C Routine 03/29/2021 from Last 3 Months or Most Recently Relevant to Health Maintenance Results * MG Mammo Digital Screening w Randell bilat (04/19/2024 10:02 AM EST) Anatomical Region Laterality Modality Breast Bilateral Mammography 04/19/2024 2:04 PM EST Impressions 04/19/2024 2:13 PM EST No mammographic evidence of new or recurrent malignancy. ?? No suspicious interval change. A negative mammogram in the presence of a clinically suspicious palpable abnormality does not preclude the possibility of malignancy or alter the indications for biopsy. ASSESSMENT: ?? BI-RADS 2: BENIGN RECOMMENDATION(S): 1: Routine screening mammogram BILATERAL in 1 year. -------- FINAL REPORT -------- Dictated By: Raymon Pruitt Dictated Date: 04/19/2024 14:04 ET Assigned Physician: Raymon Pruitt Reviewed and Electronically Signed By: Raymon Pruitt Signed Date: 04/19/2024 14:13 ET Workstation ID: [id number] Transcribed By: Self Edit Transcribed Date: 04/19/2024 14:04 ET Narrative 04/19/2024 2:13 PM EST EXAM: ??SCREENING MAMMOGRAPHY, BILATERAL HISTORY: ??SCREENING. ??Personal history of breast cancer. ??Prior right lumpectomy COMPARISON: ??04/17/2023, 04/08/2022, 03/08/2021, 03/06/2020 TECHNIQUE: Synthesized CC and MLO projections of each breast. ??Tomosynthesis of each breast in the CC and MLO projections. ADDITIONAL IMAGING: Craniocaudal view of the right breast exaggerated toward the axilla using Tomosynthesis Computer-aided detection was employed with the iCAD ??profound AI 3-D. TISSUE DENSITY: The breasts are heterogeneously dense, which may obscure small masses. (BI-RADS category C) FINDINGS: RIGHT BREAST: The right breast is smaller than the left. ??There is skin retraction. ??There is architectural distortion. ??There are surgical clips. ??There is evolving calcified fat necrosis surrounding an oil cyst. ??No additional suspicious right breast findings LEFT BREAST: No suspicious mass. No new suspicious calcification. No distortion. ?? No suspicious change in some regional punctate calcifications in the upper outer left breast. ??These should be monitored at the time of annual screening. Power generator obscures some of the anatomy. Procedure Note Raymon Pruitt MD - 04/19/2024 EXAM: SCREENING MAMMOGRAPHY, BILATERAL HISTORY: SCREENING. Personal history of breast cancer. Prior rightlumpectomy COMPARISON: 04/17/2023, 04/08/2022, 03/08/2021, 03/06/2020 TECHNIQUE: Synthesized CC and MLO projections of each breast.Tomosynthesis of each breast in the CC and MLO projections. ADDITIONAL IMAGING: Craniocaudal view of the right breast exaggeratedtoward the axilla using Tomosynthesis Computer-aided detection was employed with the iCAD profound AI 3-D. TISSUE DENSITY: The breasts are heterogeneously dense, which may obscuresmall masses. (BI-RADS category C) FINDINGS: RIGHT BREAST: The right breast is smaller than the left. There is skin retraction.There is architectural distortion. There are surgical clips. There isevolving calcified fat necrosis surrounding an oil cyst. No additionalsuspicious right breast findings LEFT BREAST: No suspicious mass. No new suspicious calcification. No distortion. Nosuspicious change in some regional punctate calcifications in the upperouter left breast. These should be monitored at the time of annualscreening. Power generator obscures some of the anatomy. IMPRESSION: No mammographic evidence of new or recurrent malignancy. No suspicious interval change. A negative mammogram in the presence of a clinically suspicious palpableabnormality does not preclude the possibility of malignancy or alter theindications for biopsy. ASSESSMENT: BI-RADS 2: BENIGN RECOMMENDATION(S): 1: Routine screening mammogram BILATERAL in 1 year. -------- FINAL REPORT -------- Dictated By: Raymon Pruitt Dictated Date: 04/19/2024 14:04 ET Assigned Physician: Raymon Pruitt Reviewed and Electronically Signed By: Raymon Pruitt Signed Date: 04/19/2024 14:13 ET Workstation ID: [id number] Transcribed By: Self Edit Transcribed Date: 04/19/2024 14:04 ET Angela Haley MD IMG BI PROCED URES * BD Bone Density DXA Axial Skeleton (04/19/2024 9:31 AM EST) Anatomical Region Laterality Modality Wrist, Hip, L-spine Bone Densito metry 04/19/2024 9:53 AM EST Impressions 04/19/2024 9:54 AM EST 1. Osteopenia. ??There has been an increase of 6.6% in bone mineral density in the lumbar spine since the prior examination of 01/21/2022. ??There has been a decrease of 3.1% in bone mineral density in the right femur and a decrease of 10.4% in bone mineral density in the left femur. 2. FRAX analysis yields a 10-year probability of major osteoporotic fracture of 17.4% and a 10-year probability of hip fracture of 4.0%. Code 69362 -------- FINAL REPORT -------- Dictated By: Joby Brand Dictated Date: 04/19/2024 09:53 ET Assigned Physician: Joby Brand Reviewed and Electronically Signed By: Joby Brand Signed Date: 04/19/2024 09:54 ET Workstation ID: [id number] Transcribed By: Self Edit Transcribed Date: 04/19/2024 09:53 ET Narrative 04/19/2024 9:54 AM EST HISTORY: ??The patient is a 68-year-old postmenopausal female with clinical concern for metabolic bone disease. FINDINGS: ??Dual energy x-ray absorptiometry of the lumbar spine and femurs is performed. The mean bone mineral density at L1-L4 is 1.083 gm/cm2 which is 92% of that of young normals and 107% of that of age matched controls. This yields a T- score of -0.8 and a Z-score of 0.6 and there is therefore no evidence of osteoporosis or osteopenia here. The mean bone mineral density of the femurs bilaterally is 0.907 gm/cm2 which is 90% of that of young normals and 107% of that of age matched controls. ??This yields a T-score of -0.8 and a Z-score of 0.5 and there is therefore no evidence of osteoporosis or osteopenia here. However, the T-score of the right femoral neck is -2.2 and that of the left femoral neck is -2.2 which is diagnostic of osteopenia. Procedure Note Joby Brand MD - 04/19/2024 HISTORY: The patient is a 68-year-old postmenopausal female with clinicalconcern for metabolic bone disease. FINDINGS: Dual energy x-ray absorptiometry of the lumbar spine and femursis performed. The mean bone mineral density at L1-L4 is 1.083 gm/cm2 whichis 92% of that of young normals and 107% of that of age matched controls.This yields a T-score of -0.8 and a Z-score of 0.6 and there is thereforeno evidence of osteoporosis or osteopenia here. The mean bone mineral density of the femurs bilaterally is 0.907 gm/tw6wuake is 90% of that of young normals and 107% of that of age matchedcontrols. This yields a T-score of -0.8 and a Z-score of 0.5 and there istherefore no evidence of osteoporosis or osteopenia here. However, theT-score of the right femoral neck is -2.2 and that of the left femoralneck is -2.2 which is diagnostic of osteopenia. IMPRESSION: 1. Osteopenia. There has been an increase of 6.6% in bone mineral densityin the lumbar spine since the prior examination of 01/21/2022. There hasbeen a decrease of 3.1% in bone mineral density in the right femur and adecrease of 10.4% in bone mineral density in the left femur. 2. FRAX analysis yields a 10-year probability of major osteoporoticfracture of 17.4% and a 10-year probability of hip fracture of 4.0%. Code 82081 -------- FINAL REPORT -------- Dictated By: Joby Brand Dictated Date: 04/19/2024 09:53 ET Assigned Physician: Joby Brand Reviewed and Electronically Signed By: Joby Brand Signed Date: 04/19/2024 09:54 ET Workstation ID: [id number] Transcribed By: Self Edit Transcribed Date: 04/19/2024 09:53 ET Nabeel March MD IMJonnathan DXA PROCEDURES * Lipid panel (05/23/2023) [facility] Triglycerides 0 mg/dL Comment:No interpretation Cholesterol 0 mg/dL Comment:No interpretation HDL 0 mg/dL Comment:No interpretation LDL Cholesterol 0 mg/dL Comment:No interpretation Blood Venous blood specimen / Unknown Historical Provider LAB BLOOD ORDERAB LES * Urine Albumin Creatinine Ratio (10/07/2022) [facility] Urine Albumin Creatinine Ratio Abstracted [facility] Provider [facility] Annual BMP Blood Test (01/13/2022) [facility] Annual BMP Blood Test Abstracted [facility] Provider [facility] Hepatitis C Screening (11/17/2021) [facility] Hepatitis C Screening Abstracted [facility] Provider [facility] Hemoglobin A1c (03/29/2021) [facility] Hemoglobin A1C 0.0 % Comment:No interpretation Blood Venous blood specimen / Unknown Historical Provider LAB BLOOD ORDERAB LES from Last 3 Months or Most Recently Relevant to Health Maintenance Care Teams Service Tester Relationship Specialty Start Date End Date Angela Luz MD [address] [facility] [address] [place] [id number] PCP - General Internal Medicine 01/28/21
--- OUTSIDE RECORDS SUMMARY | 2024-06-27 09:58 | XMS_ITS | Clinical Summary ---
Author Organization [facility] Facility Address [address] [place] [id number] Care Team Providers Care Butter Fat Tester Name Role Phone Angela Luz MD Primary Care Provide r Allergies Active Allergy Reactions Criticality Noted Date Comments Latex Other (see comments) 06/10/2019 Tramadol Rash,Swelling,Other (see comments) Low 0 10/06/2011 Medications GABAPENTIN ENACARBIL ER PO Take 400 mg by mouth 3 (three) times a day Active insulin degludec (Tresiba FlexTouch) 200 UNIT/ML injection Inject 82 Units under the skin Active pravastatin (PRAVACHOL) 80 MG tablet Take 1 tablet by mouth 1 (one) time each day Active sertraline (ZOLOFT) 100 MG tablet Take 1 tablet by mouth 02/09/2018 Active anastrozole (ARIMIDEX) 1 MG chemo tablet Take 1 mg by mouth 1 (one) time each day Swallow whole with a drink of water. Active amLODIPine (NORVASC) 10 MG tablet Take 0.5 tablets (5 mg total) by mouth 1 (one) time each day 90 tablet 3 07/20/2020 Active aspirin (ST IRAM) 81 MG EC tablet Take 81 mg by mouth 1 (one) time each day 12/05/2019 Active FeroSul 325 (65 Fe) MG tablet Take 1 tablet by mouth every other day 12/28/2020 Active folic acid (FOLVITE) 1 MG tablet Take 1 tablet by mouth 1 (one) time each day 09/21/2020 Active hydrALAZINE 50 MG tablet Take 50 mg by mouth 3 (three) times a day with meals 12/17/2020 Active isosorbide dinitrate (ISORDIL) 20 MG tablet Take 20 mg by mouth 3 times a day 12/17/2020 Active metoprolol tartrate 25 MG tablet Take 1 tablet by mouth 3 times a day 09/21/2020 Active mirtazapine (REMERON) 7.5 MG tablet Take 7.5 mg by mouth every night Active oxyCODONE-aceta minophen (PERCOCET) 5-325 MG per tablet Take 1 tablet by mouth 4 (four) times a day Active losartan (COZAAR) 100 MG tablet Take 100 mg by mouth 1 (one) time each day Active predniSONE (DELTASONE) 20 MG tablet Take 40 mg by mouth 1 (one) time each day Active linaGLIPtin (Tradjenta) 5 MG tablet Take 5 mg by mouth 1 (one) time each day Active cholecalciferol (VITAMIN D-3) 125 MCG (5000 UT) capsule Take 5,000 Units by mouth 1 (one) time each day Active carvedilol (COREG) 6.25 MG tablet Take 6.25 mg by mouth 1 (one) time each day 03/08/2021 Active atorvastatin (LIPITOR) 40 MG tablet Take 40 mg by mouth at bed time at bedtime 03/08/2021 Active insulin aspart (NovoLOG) 100 UNIT/ML injection Inject under the skin 3 (three) times a day before meals 24-36 units Active Torsemide 40 MG tablet Take 40 mg by mouth in the morning and 40 mg before bedtime. 180 tablet 3 05/08/2023 Active torsemide (DEMADEX) 20 MG tabletIndicatio ns:Hypertension ,Type 2 diabetes mellitus with diabetic chronic kidney disease (HCC),Anemia in chronic kidney disease,Iron deficiency anemia, not otherwise specified Take 1 tablet (20 mg total) by mouth in the morning and 1 tablet (20 mg total) in the evening. 180 tablet 2 10/24/2023 Active calcitriol (ROCALTROL) 0.25 MCG capsule TAKE 1 CAPSULE BY MOUTH EVERY OTHER DAY IN THE MORNING 45 capsule 04/08/2024 Active Farxiga 10 MG tablet TAKE 1 TABLET BY MOUTH EVERY MORNING 90 tablet 3 05/01/2024 Active Active Problems Problem Noted Date Diagnosed Date Epistaxis 10/07/2022 Precordial pain 04/29/2022 Pain in wrist 04/29/2022 Pain in right shoulder 04/29/2022 Forgetful 04/29/2022 Foot pain 04/29/2022 Closed fracture of proximal phalanx of great toe 04/29/2022 Chronic systolic heart failure 04/29/2022 Chronic obstructive pulmonary disease 12/16/2021 Depressive disorder 12/16/2021 Gastroesophageal reflux disease 12/16/2021 Generalized anxiety disorder 12/16/2021 Anemia in chronic kidney disease 07/19/2021 Renal osteodystrophy 07/19/2021 Chronic kidney disease, stage 4 (severe) Chronic kidney disease, stage 4 (severe) Type 2 diabetes mellitus wit h diabetic chronic kidney disease 01/12/2021 Microalbuminuria 12/04/2020 Stage 3b chronic kidney disease 05/04/2017 Type 2 diabetes mellitus with diabetic neuropath y 12/17/2015 Overview (07/20/2020): Last Assessment & Plan: Pt is currently taking Lantus 50 units daily at 7pm. She will stop Humulin R and start Humalog 4 units before each meal with sliding scale coverage for elevations BS 200-250, add 2 units BS 251-300, add 4 units BS 301-350, add 6 units Nutritional anemia 09/19/2012 Overview (07/20/2020): Seeing Dr. Adams. Labs have been unremarkable including LDH, hapto, iron, B12. Pt declines BMBx. Expectant mgt Type 2 diabetes mellitus 05/07/2012 Overview (01/12/2021): Dr. Gee Oneal Peripheral vascular disease 02/15/2011 Overview (01/12/2021): 04/03/2013 US - 50-99% left SFA but impression mild diffuse plaque of b/l MAURA. Dr. Crowley's note 06/13/13, no significant PAD . 03/2014 US - moderate (20-49%) stenosis in right EIA, left EIA, left SFA Gastroparesis 02/14/2011 Overview (01/12/2021): Last Assessment & Plan: Pt is currently taking Lantus 50 units daily at 7pm. She will stop Humulin R and start Humalog 4 units before each meal with sliding scale coverage for elevations BS 200-250, add 2 units BS 251-300, add 4 units BS 301-350, add 6 units Resolved Problems Problem Noted Date Diagnosed Date Resolved Date Congestive heart failure 07/20/2020 Malignant tumor of breast 06/24/2019 Overview (07/20/2020): Right partial mastectomy 07/11, invasive intraductal carcinoma Body mass index 30+ - obesity 04/01/2019 01/11/2021 Allergic rhinitis due to pollen 04/06/2018 01/11/2021 Radiculopathy due to cervical spondylosis 03/26/2018 01/11/2021 Overview (07/20/2020): 2011 - Dr Guevara Chronic neck pain 03/26/2018 01/11/2021 Moderate persistent asthma 08/07/2017 0 01/11/2021 Overview (07/20/2020): Methacholine challenge (+) Insomnia 10/05/2016 01/11/2021 Shoulder pain 09/16/2016 01/11/2021 Overview (07/20/2020): 2011 - right shoulder pain; complete rotator cuff tear s/p surgery Venous insufficiency of leg 02/10/2014 01/11/2021 Overview (07/20/2020): S/p right endovenous ablation 2013 Allergic rhinitis 09/18/2012 01/11/2021 Solitary pulmonary nodule 06/11/2012 Overview (07/20/2020): 01/[address] in [place]. Last CT (abd) 06/02/12 - 5x7 pulm nodule, recommended rpt CT to confirm 2 years of stability. Obstructive sleep apnea 01/31/201212/21 Restless legs 10/06/2011 01/11/2021 Glaucoma 02/15/2011 01/11/2021 Hyperlipidemia 02/15/2011 01/11/2021 Encounters Date Type Department Care Team Description 06/26/2024 Refill [facility] [address] [place] [phone] Beau Vargas MD Hypertension; Type 2 diabetes mellitus with diabetic chronic kidney disease (HCC); Anemia in chronic kidney disease; Iron deficiency anemia, not otherwise specified 05/01/2024 Refill [facility] [place] [address] [place] [phone] Baeu Vargas MD 04/07/2024 Refill [facility] [address] [place] [address] Beau Vargas MD from Last 3 Months Immunizations Name Administration Dates Next Due Influenza TIV (IM) 05/02/2016, 5,04/24/2014,03/28,02/13/2012 Influenza, MDCK, PF, Quadrivalent 03/21/2019 Influenza, MDCK, Quadrivalen t, with preservative 04/19/2017 Influenza, Quadrivalent, Pre servative Free 03/14/2020 Influenza, Trivalent, Adjuvanted 016,02/23/2015,04/24/2014,03/28,02/13/2012 Influenza, Unspecified 02/26/2021,03/21/2019, Pfizer SARS-COV-2 06/10/2022, 2,03/02/2021,07/30,07/02/2020 Pneumococcal Conjugate 13-Valent 03/30/2021 Pneumococcal Polysaccharide 05/08/2017, 5 Shingrix 03/30/2021 Tdap 03/28/2013,08/21/2012 Family History Medical History Relation Comments Diabetes Child Diabetes Father Diabetes Sibling Relation Status Comments Child Father Mother Sibling Social History Tobacco Use Types Packs/Day Years [...] on file Sexual Orientation Not on file Last Filed Vital Signs Vital Sign Reading Time Taken Comments Blood Pressure 128/64 01/15/2024 1:23 PM EDT Pulse 64 01/15/2024 1:23 PM EDT Temperature - - Respiratory Rate - - Oxygen Saturation 98% 01/15/2024 1:23 PM EDT Inhaled Oxygen Concentration - - Weight 63.9 kg (140 lb 12.8 oz) 01/15/2024 1:23 PM EDT Height 144.8 cm (4' 9 ) 03/30/2020 12:0 0 PM EST Body Mass Index 30.47 03/30/2020 12:00 PM EST Plan of Treatment Upcoming Encounters Date Type Department Care Team (Late st Contact Info) Description 08/05/2024 1:00 PM EDT Office Visit [facility] [address] [place] [phone] Beau Vargas MD [address] [facility] [address] [place] [phone] Health Maintenance Due Date Last Done Comments Breast Cancer Screening 1955 Colorectal Cancer Screening: Annual FOBT 10/24/2003 Colorectal Cancer Screening: Colonoscopy 10/24/2003 Colorectal Cancer Screening: Sigmoidoscopy 10/24/2003 Diabetes: Ophthalmology Exam 06/18/2020 Diabetes: Pedal Pulse Checked 06/18/2020 Diabetes: Sensory Foot Exam 06/18/2020 Diabetes: Visual Foot Exam 06/18/2020 Hepatitis B Vaccine (3 of 3 - 19+ 3-dose series) 02/20/2024 12/11/2023, 12/07/2023, 08/21/2023 Diabetes: Hemoglobin A1C 06/26/2024 024, 12/06/2023, 03/30/2023, Additional history exists Pneumococcal Vaccine: 65+ Years Completed 06/28/2023, 03/30/2021, 05/08/2017, Additional history exists Influenza Vaccine Completed 03/26/2024, , 03/14/2020, Additional history exists Insurance [facility] ([id number]) [facility] ([id number]) Care Teams Butter Fat Tester Relationship Specialty Start Date End Date Angela Luz MD [address] [place] [address] [place] [phone] PCP - General Internal Medicine 01/12/21
== END | disposition home or self-care (01) ==
PROVIDERS: PCP Internal Medicine; Visit Provider Orthopaedic Surgery
CPT/HCPCS: 20610; 99213

== ENCOUNTER → 2024-06-27 09:53 | Outpatient (BNVA) | payer OTHER, SELFPAY | PROVIDERS: PCP Internal Medicine; Visit Provider Orthopaedic Surgery | DX: M75.42 Impingement syndrome of left shoulder (principal); M25.512 Pain in left shoulder; Z98.890 Other specified postprocedural states | CPT/HCPCS: 20610; 99212; J1010; J2003 ==

== ENCOUNTER 2024-07-22 09:00 | Outpatient (REF) | payer OTHER, SELFPAY ==
[2024-07-22 10:22] LABS: MANUAL DIFF FLAG NO
[2024-07-22 10:41] LABS: Basophils Percent Auto 0.8 % (0-2); Eosinophils Absolute Auto 0.3 X10*3/uL (0.0-0.4); Eosinophils Percent Auto 5.7 % (0-4); Hematocrit 35.5 % (37.0-47.0); Hemoglobin 11.7 g/dl (12.0-16.0); Imm Gran Abs Auto 0.02 X10*3/uL (0.00-0.03); Imm Gran Pct Auto 0.4 % (0.0-0.4); Lymphocytes Absolute Auto 1.4 X10*3/uL (1.2-4.9); Lymphocytes Percent Auto 27.4 % (20-40); Mean Corpuscular Hemoglobin 26.3 pg (27.0-33.0); Mean Corpuscular Volume 79.8 fL (80.0-98.0); Mean Platelet Volume 9.3 fL (9.4-12.3); Monocytes Absolute Auto 0.4 X10*3/uL (0.1-1.2); Monocytes Percent Auto 7.5 % (2-11); Neutrophils Percent Auto 58.2 % (45-73); Red Blood Count 4.45 X10*6/uL (4.20-5.50); Red Cell Distribution Width 20.4 % (11.0-16.0); White Blood Count 5.2 X10*3/uL (4.8-10.8)
[2024-07-22 10:53] LABS: Platelet Count 141 X10*3/uL (160-400)
--- OUTSIDE RECORDS SUMMARY | 2024-07-22 11:20 | XMS_ITS ---
Author Organization [facility] Address [address] [place] [address] Care Team Providers Care Knot Tying Operator Name Role Phone Angela Luz Primary Care Provider Jen vailable Dunia Trevino Unavailable [phone] REASON FOR VISIT Chronic Care F/U Medications Medication SIG (Take, Route, Frequency, Duration) Notes Start Date End Date Status Triamcinolone Acetonide 0.1 % 1 application Externally Twice a day Active Trulance 3 MG 1 tablet Orally Once a day Active Vitamin C 500 MG 1 CAP Orally daily Active Ursodiol 500 MG 1 tablet Orally Twic e a day Active Ventolin HFA 108 (90 Base) MCG/ACT 1 puff as needed Inhalation every 4 hrs Active Torsemide 20 MG 1 tablet Orally Twic e daily in the AM and PM for 10 days Active Trelegy Ellipta 200-62.5-25 MCG/INH 1 puff Inhalation Once a day Active Senna 8.6 MG 2 tablets at bedtime as needed Orally Once a day Active Sertraline HCl 100 MG 1 tablet Orally On ce a day Active Tresiba FlexTouch 200 UNIT/ML 42 in AM 48 in PM Subcutaneous Daily Active Movantik 12.5 MG 1 tablet in the morn ing Orally Once a day Active Ozempic (0.25 or 0.5 MG/DOSE) 2 MG/3ML as directed Subcutaneous Active Pregabalin 75 MG 1 capsule Orally Twi ce a day Active NovoLOG FlexPen 100 UNIT/ML Per sliding scale - 30-40 units as directed Subcutaneous 3 times a day with meals tid 06/29/2021 Active oxyCODONE-Acetaminophen 5-325 MG 1 tablet as needed Orally every 6 hrs Active Glucose 15 GM/33GM as directed Orally Active Losartan Potassium 25 MG 1 tablet Orally Once a day Active Farxiga 10 MG 1 tablet Orally Once a day Active Mirtazapine 15 MG 1 tablet at bedtime Orally Once a day Active Montelukast Sodium 10 MG 1 tablet Orally Once a day Active Esomeprazole Magnesium 20 MG 1 capsule Orally Once a day Active Docusate Sodium 100 MG 1 capsule Orally TWICE A DAY Active Doxepin HCl 10 MG 1 capsule at bedtime as needed Orally Once a day Active Calcitriol 0.25 MCG 1 capsule Orally michelle ry other day in morning 02/09/2024 Active Clotrimazole Anti-Fungal 1 % 1 application Externally Twice a day Active amLODIPine Besylate 10 MG 1 tablet Orall y Once a day Active Anastrozole 1 MG 1 tablet Orally Once a day Active Aspirin Adult Low Dose 81 MG 1 tablet Orally Once a day Active Atorvastatin Calcium 40 MG 1 tablet Oral ly Once a day Active Baqsimi Two Pack 3 MG/DOSE as directed Nasally Active Albuterol Sulfate (2.5 MG/3ML) 0.083% 3 mL as needed Inhalation Three times a day Active Albuterol Sulfate HFA 108 (90 Base) MCG/ACT 1 puff as needed Inhalation every 4 hrs Active Problems Problem Type SNOMED Code ICD Code Onset Dates Problem Status W/U Status Risk Notes Problem [id number] 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 supervisor 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 use of oral hypoglycemic drug (Z79.84) Active confirmed Problem 444458135 Long-term current use of injectable noninsulin antidiabetic medication (Z79.85) Active confirmed Problem [id number] Unqualified visual loss, left eye, 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) Active confirmed Recommended by CDI Problem [id number] Drug induced constipation (K59.03) Active confirmed Recommended by CDI Vital Signs Heart Rate 60 /min 06/24/2024 Blood pressure systolic 116 mm Hg 06/24/19 25 Blood pressure diastolic 50 mm Hg 025 Respiratory Rate 16 /min 06/24/2024 Oximetry 99 % 06/24/2024 Height 59 in 06/24/2024 Height-cm 149.86 cm 06/24/2024 Encounters Encounter Location Date Provider Diagnosis [address] [address] 06/24/2024 Dunia Trevino 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.22 ; Chronic kidney disease, stage 4 (severe) N18.4 ; halfway (current) use of insulin Z79.4 ; 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 supervisor current use of oral hypoglycemic drug Z79.84 ; Long-term current use of injectable noninsulin antidiabetic medication Z79.85 ; Osteoarthritis of multiple joints M15.9 ; Hypertensive heart and chronic kidney disease with heart failure and stage 1 through stage 4 chronic kidney disease, or unspecified chronic kidney disease I13.0 and Chronic heart failure with preserved ejection fraction I50.32 Assessments Encounter Date Diagnosis (ICD Code) Assessment Notes Treatment Notes Treatment Clinical Notes Section Notes 06/24/2024 Type 2 diabetes mellitus with diabetic chronic kidney disease (ICD-10 - E11.22) Recommended by CDI N18.4 Chronic kidney disease, stage IV (severe)Z79.4 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 supervisor (current) use of nsphslgI69.84 Long-term current use of oral hypoglycemic xipauE90.85 Long-term current use of injectable non-insulin antidiabetic drugs-Patient follows closely with an penciller. She has a continuous glucose monitor. Her A1c is now around 7. She also follows with a dielectric testing machine operator. Would continue current medications for now. 06/24/2024 Chronic kidney disease, stage 4 (severe) (ICD-10 - N18.4) 06/24/2024 halfway (current) use of insulin (ICD-10 - Z79.4) 06/24/2024 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 supervisor current use of oral hypoglycemic drug (ICD-10 - Z79.84) 06/24/2024 Long-term current use of injectable noninsulin antidiabetic medication (ICD-10 - Z79.85) 06/24/2024 Osteoarthritis of multiple joints (ICD-10 - M15.9) - Patient has osteoarthritis. She is going to see the orthopedic at [facility] on for her issues with her left shoulder. Hopefully she is able to start with injections now that her A1c is more controlled. 06/24/2024 Hypertensive heart and chronic kidney disease with heart failure and stage 1 through stage 4 chronic kidney disease, or unspecified chronic kidney disease (ICD-10 - I13.0) I50.32 Chronic heart failure with preserved ejection fraction-Blood pressure as above. Patient appears euvolemic on exam. She follows closely with her PCP and repulping supervisor. She also follows with a dielectric testing machine operator for CKD 4. Would continue current medications for now. She denies any major symptoms associated with these diagnoses 06/24/2024 Chronic heart failure with preserved ejection fraction (ICD-10 - I50.32) Plan Of Treatment Treatment Notes Assessment Notes Type 2 diabetes mellitus wit h diabetic chronic kidney disease N18.4 Chronic kidney disease, stage IV (severe)Z79.4 halfway (current) use of xortaswF88.84 Long-term current use of oral hypoglycemic ddhbbH92.85 Long-term current use of injectable non-insulin antidiabetic drugs-Patient follows closely with an penciller. She has a continuous glucose monitor. Her A1c is now around 7. She also follows with a dielectric testing machine operator. Would continue current medications for now. Osteoarthritis of multiple joints - Kaitlynn ent has osteoarthritis. She is going to see the orthopedic at [facility] on for her issues with her left shoulder. Hopefully she is able to start with injections now that her A1c is more controlled. Hypertensive heart and chron ic kidney disease with heart failure and stage 1 through stage 4 chronic kidney disease, or unspecified chronic kidney disease I50.32 Chronic heart failure with preserved ejection fraction-Blood pressure as above. Patient appears euvolemic on exam. She follows closely with her PCP and repulping supervisor. She also follows with a dielectric testing machine operator for CKD 4. Would continue current medications for now. She denies any major symptoms associated with these diagnoses Next Appt Details Follow Up: 09/25/24, Reason: Provider Name:Dunia Cortes, 09/25/2024 10:30:00 AM, [address] [place] [address], [phone], Progress Notes * Angela MATUTE SDOB :1955 (68 yo F)Acc No.[id number]:06/24/2024 Patient:?Helder MATUTE ??External Provider:?Dunia Trevino :1955???Age:68 Y???Sex:Female D ate:06/24/2024 Address:[address] [place] [address], [place], [id number] Pcp:Angela Haley Patient's Default Facility:[facility] Subjective: * Chief Complaints: * ???Chronic Care F/U * HPI: ???History of Present Illness:? Angela Moreno is a 68-year-old female with chronic medical conditions significant for asthma, ROLAN, HTN, CKD 4, DM II w/ jail insulin use, s/p cardiac pacemaker, HLD, CHF, blind left eye, GERD, osteoporosis, JENNIFER, depression. ?. ?She is seen today in her home for [facility] follow up. She overall has been feeling well, aside from her issues with neuropathy and left shoulder pain. She is going to see the orthopedic at [facility] on . They were not able to do injections in the past due to her diabetes, but it is now under control. ?PCP: C ?Assistant Program Director: [facility] ?Director Of Guidance: [facility] ?Fishing Boat Mate: Dr. More ? Providers: BHN, Psych every 2 mos; therapy every 2 weeks ?Pharmacy: [facility] ?Distribution Technician: [facility] ?Ortho: [facility] ?Oncology: [facility] ?Podiatry: [facility] ?Opthamologist: [facility] ? . ???General Visit Information:?Encounter Information:?Other(s) present at the visit:?Yes ?Name:?Daughter, Neetu ?Length of Visit (total time spent):?42 * ROS:?General ROS:?CONSTITUTIONAL?Denies, fever, chills, sweats, malaise,?headache, lightheadedness.?Reports change in appetite.?EYES?Denies:, blurred vision, red eye, discharge, eye pain.?ENT?Denies, decreased hearing, ear pain, ringing in the ears, sinus pain, ?difficulty swallowing, sore throat, hoarseness, swollen glands.?Reports no teeth, runny nose, nasal congestion.?CARDIOVASCULAR?Denies, chest pain at rest, chest pain with exertion, dyspnea on exertion, dyspnea at rest, dyspnea lying flat, palpitations, fluid accumulation in the legs, dizziness, weakness.?RESPIRATORY?Denies?shortness of breath, increased sputum production,??wheezing, chest pain with inspiration.?Reports cough.?GASTROINTESTINAL?Denies, nausea, vomiting, abdominal pain, diarrhea, constipation, change in bowel habits, blood in the stool, rectal bleeding, difficulty swallowing.?SKIN?Denies, rash, itching, changing moles, new skin lesions, discoloration, skin breakdown.?NEUROLOGIC Denies?difficulty speaking, dizziness, syncope, seizures, headaches, tingling or numbness, memory loss.?Reports difficulty with balance.?GENITOURINARY?Denies, painful urination, frequent urination, incontinence, blood in the urine, flank pain.?PSYCHIATRIC?Denies?suicidal thoughts, thoughts of hurting others, auditory or visual hallucinations.?Reports depressed/anxious mood.? * Medical History:?? * Surgical History:? * Hospitalization/Major Diagno stic Procedure:? * Family History:?Father: dece ased, diagnosed with Unspecified heart disease, Diabetes, Hypertension.?Mother: .? Members mother Is , she tells me that her mother from complications related to kidney disease. Father is also , she tells me he related to heart problems and diabetes. She has 3 living children, they suffered from diabetes, hypertension, asthma and two have thyroid disorders. * Medications:?TakingAlbuterol Sulfate (2.5 MG/3ML) 0.083% Nebulization Solution 3 mL as needed Inhalation Three times a day Albuterol Sulfate HFA 108 (90 Base) MCG/ACT Aerosol Solution 1 puff as needed Inhalation every 4 hrs amLODIPine Besylate 10 MG Tablet 1 tablet Orally Once a day Anastrozole 1 MG Tablet 1 tablet Orally Once a day Aspirin Adult Low Dose 81 MG Tablet Delayed Release 1 tablet Orally Once a day Atorvastatin Calcium 40 MG Tablet 1 tablet Orally Once a day Baqsimi Two Pack 3 MG/DOSE Powder as directed Nasally Calcitriol 0.25 MCG Capsule 1 capsule Orally every other day in morning Clotrimazole Anti-Fungal 1 % Cream 1 application Externally Twice a day Docusate Sodium 100 MG Capsule 1 capsule Orally TWICE A DAY Doxepin HCl 10 MG Capsule 1 capsule at bedtime as needed Orally Once a day Esomeprazole Magnesium 20 MG Capsule Delayed Release 1 capsule Orally Once a day Farxiga 10 MG Tablet 1 tablet Orally Once a day Glucose 15 GM/33GM Gel as directed Orally Losartan Potassium 25 MG Tablet 1 tablet Orally Once a day Mirtazapine 15 MG Tablet 1 tablet at bedtime Orally Once a day Montelukast Sodium 10 MG Tablet 1 tablet Orally Once a day Movantik 12.5 MG Tablet 1 tablet in the morning Orally Once a day NovoLOG FlexPen 100 UNIT/ML Solution Pen-injector Per sliding scale - 30-40 units as directed Subcutaneous 3 times a day with meals , Notes to Pharmacist: tidoxyCODONE-Acetaminophen 5-325 MG Tablet 1 tablet as needed Orally every 6 hrs Ozempic (0.25 or 0.5 MG/DOSE) 2 MG/3ML Solution Pen-injector as directed Subcutaneous Pregabalin 75 MG Capsule 1 capsule Orally Twice a day Senna 8.6 MG Tablet 2 tablets at bedtime as needed Orally Once a day Sertraline HCl 100 MG Tablet 1 tablet Orally Once a day Torsemide 20 MG Tablet 1 tablet Orally Twice daily in the AM and PM Trelegy Ellipta 200-62.5-25 MCG/INH Aerosol Powder Breath Activated 1 puff Inhalation Once a day Tresiba FlexTouch 200 UNIT/ML Solution Pen-injector 42 in AM 48 in PM Subcutaneous Daily Triamcinolone Acetonide 0.1 % Lotion 1 application Externally Twice a day Trulance 3 MG Tablet 1 tablet Orally Once a day Ursodiol 500 MG Tablet 1 tablet Orally Twice a day Ventolin HFA 108 (90 Base) MCG/ACT Aerosol Solution 1 puff as needed Inhalation every 4 hrs Vitamin C 500 MG Capsule 1 CAP Orally daily Medication List reviewed and reconciled with the patientTaking Albuterol Sulfate (2.5 MG/3ML) 0.083% Nebulization Solution 3 mL as needed Inhalation Three times a day Taking Albuterol Sulfate HFA 108 (90 Base) MCG/ACT Aerosol Solution 1 puff as needed Inhalation every 4 hrs Taking amLODIPine Besylate 10 MG Tablet 1 tablet Orally Once a day Taking Anastrozole 1 MG Tablet 1 tablet Orally Once a day Taking Aspirin Adult Low Dose 81 MG Tablet Delayed Release 1 tablet Orally Once a day Taking Atorvastatin Calcium 40 MG Tablet 1 tablet Orally Once a day Taking Baqsimi Two Pack 3 MG/DOSE Powder as directed Nasally Taking Calcitriol 0.25 MCG Capsule 1 capsule Orally every other day in morning Taking Clotrimazole Anti-Fungal 1 % Cream 1 application Externally Twice a day Taking Docusate Sodium 100 MG Capsule 1 capsule Orally TWICE A DAY Taking Doxepin HCl 10 MG Capsule 1 capsule at bedtime as needed Orally Once a day Taking Esomeprazole Magnesium 20 MG Capsule Delayed Release 1 capsule Orally Once a day Taking Farxiga 10 MG Tablet 1 tablet Orally Once a day Taking Glucose 15 GM/33GM Gel as directed Orally Taking Losartan Potassium 25 MG Tablet 1 tablet Orally Once a day Taking Mirtazapine 15 MG Tablet 1 tablet at bedtime Orally Once a day Taking Montelukast Sodium 10 MG Tablet 1 tablet Orally Once a day Taking Movantik 12.5 MG Tablet 1 tablet in the morning Orally Once a day Taking NovoLOG FlexPen 100 UNIT/ML Solution Pen- injector Per sliding scale - 30-40 units as directed Subcutaneous 3 times a day with meals , Notes to Pharmacist: tidTaking oxyCODONE-Acetaminophen 5-325 MG Tablet 1 tablet as needed Orally every 6 hrs Taking Ozempic (0.25 or 0.5 MG/DOSE) 2 MG/3ML Solution Pen-injector as directed Subcutaneous Taking Pregabalin 75 MG Capsule 1 capsule Orally Twice a day Taking Senna 8.6 MG Tablet 2 tablets at bedtime as needed Orally Once a day Taking Sertraline HCl 100 MG Tablet 1 tablet Orally Once a day Taking Torsemide 20 MG Tablet 1 tablet Orally Twice daily in the AM and PM Taking Trelegy Ellipta 200-62.5-25 MCG/INH Aerosol Powder Breath Activated 1 puff Inhalation Once a day Taking Tresiba FlexTouch 200 UNIT/ML Solution Pen-injector 42 in AM 48 in PM Subcutaneous Daily Taking Triamcinolone Acetonide 0.1 % Lotion 1 application Externally Twice a day Taking Trulance 3 MG Tablet 1 tablet Orally Once a day Taking Ursodiol 500 MG Tablet 1 tablet Orally Twice a day Taking Ventolin HFA 108 (90 Base) MCG/ACT Aerosol Solution 1 puff as needed Inhalation every 4 hrs Taking Vitamin C 500 MG Capsule 1 CAP Orally daily Medication List reviewed and reconciled with the patient Objective: * Vitals:?HR:60/min, BP:116/50 mm Hg, RR:16/min, Oxygen sat %:99%, Pain scale:60- 10, Ht: 59 in, Ht-cm: 149.86 cm. * Examination: ???General Examination-New: ?GENERAL APPEARANCE:?alert, well hydrated, in no acute distress.?HEAD:?normocephalic, atraumatic.?EYES:?extraocular movement intact (EOMI).?EARS:?No external deformities.?NOSE:?no lesions.?SKIN:?Warm and dry.?HEART:?regular rate and rhythm,, S1, S2 normal, no murmurs, rubs, gallops, no jugular venous distention.?LUNGS:?clear to auscultation bilaterally.?ABDOMEN:?bowel sounds present, soft, non tender, non distended.?EXTREMITIES:?no edema.?NEUROLOGIC:?oriented to person, place, time, situation, normal speech, cooperative with exam.?PSYCH:?alert, oriented, cognitive function intact, cooperative with exam, good eye contact, judgement and insight good, mood/affect full range, speech clear, thought process logical, goal directed.? Assessment: * Assessment: 1.?Type 2 diabetes mellitus with diabetic chronic kidney disease - E11.22, Recommended by CDI?2.?Chronic kidney disease, stage 4 (severe) - N18.4?3.?halfway (current) use of insulin - Z79.4?4.?halfway current use of oral hypoglycemic drug - Z79.84?5.?Long-term current use of injectable noninsulin antidiabetic medication - Z79.85?6.?Osteoarthritis of multiple joints - M15.9?7.?Hypertensive heart and chronic kidney disease with heart failure and stage 1 through stage 4 chronic kidney disease, or unspecified chronic kidney disease - I13.0?8.?Chronic heart failure with preserved ejection fraction - I50.32? Plan: * Treatment: 2.?Osteoarthritis of multipl e joints? Notes: - Patient has osteoarthritis. She is going to see the orthopedic at [facility] on for her issues with her left shoulder. Hopefully she is able to start with injections now that her A1c is more controlled.?? 3.?Hypertensive heart and ch ronic kidney disease with heart failure and stage 1 through stage 4 chronic kidney disease, or unspecified chronic kidney disease? Notes: I50.32 Chronic heart failure with preserved ejection fraction-Blood pressure as above. Patient appears euvolemic on exam. She follows closely with her PCP and repulping supervisor. She also follows with a dielectric testing machine operator for CKD 4. Would continue current medications for now. She denies any major symptoms associated with these diagnoses?? * Procedure Codes:?1159F Medic ation list documented in medical [id number] Review of all medications by a prescribing practitioner or clinical pharmacist documented in the medical [id number] Most recent systolic blood pressure < 130 mm [id number] Most recent diastolic blood pressure < 80 mm [id number] Pain severity quantified; pain present * Follow Up:?09/25/24 Care Plan: * Problems:? * * Sign off status: Completed true * Provider:?Dunia Trevino Date:?06/24/19 Generated for Stephen ying/Nelda/Gita on:?07/22/2024 10:56 AM EST History and Physical Notes * HPI (History of Present Illness) Category Sub-Category Detail Notes Category Not es General Visit Information Encounter Information: Other(s) present at the visit:: Yes ?Name:: Neetu Palomino Length of Visit (total time spent):: 42 Examination Category Sub-Category Detail Notes Category Not es General Examination-New GENERAL APPEARANCE: alert, well hydrated, in no acute distress HEAD: normocephalic, atrau matic EYES: extraocular movement intact (EOMI) EARS: No external deformit ies NOSE: no lesions SKIN: Warm and dry HEART: regular rate and rhy thm,, S1, S2 normal, no murmurs, rubs, gallops, no jugular venous distention LUNGS: clear to auscultatio n bilaterally ABDOMEN: bowel sounds present , soft, non tender, non distended EXTREMITIES: no edema NEUROLOGIC: oriented to person, place, time, situation, normal speech, cooperative with exam PSYCH: alert, oriented, cog nitive function intact, cooperative with exam, good eye contact, judgement and insight good, mood/affect full range, speech clear, thought process logical, goal directed
--- OUTSIDE RECORDS SUMMARY | 2024-07-22 11:20 | XMS_ITS | Encounter Summary ---
Author Organization [employer] Address [address] [place] [address] Care Team Providers Care Core Man Name Role Phone Angela Luz MD Primary Care Provide r Ninfa Dietrich PharmD Unavailable [phone] Reason for Visit * Reason Comments Med Refill Encounter Details Date Type Department Care Team (Late st Contact Info) Description 05/30/2023 Refill [facility] [address] [place], [place] [phone] Angela Cornell MD [address] [place], [place] [phone] Type 2 diabetes mellitus with stage 3 [...] Info) Description 07/23/2024 9:00 AM EST Telemedicine [facility] [address] [place] [phone] Ninfa Dietrich PharmD [address] [place] [phone] 08/21/2024 10:30 AM EDT Clinical Support [facility] [address] [place] [phone] Nazia Martins RN documented as of this encounter Visit Diagnoses Diagnosis Type 2 diabetes mellitus with stage 3 chronic kidney disease, with long-term current use of insulin, unspecified whether stage 3a or 3b CKD (CMS/HCC) documented in this encounter Care Teams Core Man Relationship Specialty Start Date End Date Angela Luz MD [address] [place] [phone] PCP - General Family Medicine 10/27/20 Ninfa Dietrich PharmD [address] [place] [phone] Pharmacist Internal Medicine 11/10/23 [employer] 12/20/23 documented as of this encounter
--- OUTSIDE RECORDS SUMMARY | 2024-07-22 11:20 | XMS_ITS | Encounter Summary ---
Author Organization [employer] Address [address] [facility] 7[address] [place] [address] Care Team Providers Care Associate Professor Of Biostatistics Name Role Phone Angela Luz MD Primary Care Provide r Ninfa Dietrich PharmD Unavailable [phone] Encounter Details Date Type Department Care Team (Late st Contact Info) Description 03/26/2024 Orders Only [facility] [address] [place], [place] [phone] Angela Luz MD [address] [place], [place] [phone] Social History Tobacco Use Types Packs/Day Years [...] Info) Description 07/23/2024 9:00 AM EST Telemedicine [facility] [address] [place] [phone] Ninfa Dietrich, LauraD [address] [place] [phone] 08/21/2024 10:30 AM EDT Clinical Support [address] [address] aNzia Martins, RN documented as of this encounter [...] on filedocumented in this encounter Care Teams Associate Professor Of Biostatistics Relationship Specialty Start Date End Date Angela Luz MD [address] [place] [phone] PCP - General Family Medicine 10/27/20 Ninfa Dietrich, LauraD [address] [place] [phone] Pharmacist Internal Medicine 11/10/23 [employer] 12/20/23 documented as of this encounter
--- OUTSIDE RECORDS SUMMARY | 2024-07-22 11:20 | XMS_ITS | Encounter Summary ---
Author Organization [facility] Address [address] [facility] [address] [place] [address] Phone Care Team Providers Care Penciller Name Role Phone Angela Luz MD Primary Care Provide r Reason for Visit * Reason Comments Med Refill Encounter Details Date Type Department Care Team (Late Contact Info) Description 06/26/2024 Refill [facility] [address] [facility] [address] [place] [phone] Beau Vargas MD [address] [facility] [address] [place] [phone] Hypertension; Type 2 diabetes mellitus with diabetic [...] Visit [facility] [address] [place] [phone] Beau Vargas MD [address] [facility] [address] [place] [address] documented as of this encounter Visit Diagnoses Diagnosis Hypertension Type 2 diabetes mellitus with diabetic chronic kidney disease (HCC) Anemia in chronic kidney disease Iron deficiency anemia, not otherwise specified documented in this encounter Care Teams Penciller Relationship Specialty Start Date End Date Angela Luz MD [address] [place] [phone] PCP - General Internal Medicine 01/12/21 documented as of this encounter
--- OUTSIDE RECORDS SUMMARY | 2024-07-22 11:21 | XMS_ITS | Encounter Summary ---
Author Organization [employer] Address 75 [facility] 7t [place] [address] Care Team Providers Care Tele Marketing Executive Name Role Phone Angela Luz MD Primary Care Provide r Ninfa Dietrich PharmD Unavailable Reason for Visit * Reason Comments Med Refill Encounter Details Date Type Department Care Team ([facility] Contact Info) Description 07/21/2022 Refill [facility] 230 [place], [place] [phone] vAa Winn DO 230 [place], [place] [phone] Other chronic pain Social History Tobacco Use [...] Info) Description 07/23/2024 9:00 AM EST Telemedicine [facility] [address] [place] [phone] Ninfa Dietrich PharmD [address] [place] [address] 08/21/2024 10:30 AM EDT Clinical Support [address] [address] Nazia Martins, DIAMOND documented as of this encounter Visit Diagnoses Diagnosis Other chronic pain documented in this encounter Care Teams Tele Marketing Executive Relationship Specialty Start Date End Date Angela Luz MD [address] [place] [address] PCP - General Family Medicine 10/27/20 Ninfa Dietrich PharmD [address] [place] [address] Pharmacist Internal Medicine 11/10/23 [employer] 12/20/23 documented as of this encounter
--- OUTSIDE RECORDS SUMMARY | 2024-07-22 11:21 | XMS_ITS | Encounter Summary ---
Author Organization [employer] Address 75 [facility] 7t [place] [address] Care Team Providers Care Sizer Machine Name Role Phone Angela Luz MD Primary Care Provide r Ninfa Dietrich PharmD Unavailable [phone]- [phone] Reason for Visit * Reason Comments Med Refill Encounter Details Date Type Department Care Team ([facility] st Contact Info) Description 03/21/2023 Refill [facility] 230 [place], [place] [phone] Angela Luz MD 230 [place], [place] [phone] Other chronic pain Social History Tobacco Use [...] Description 07/23/2024 9:00 AM EST Telemedicine [facility] [address] [place] [address] Ninfa Dietrich PharmD [address] [place] [address] 08/21/2024 10:30 AM EDT Clinical Support [address] [address] Nazia Martins RN documented as of this encounter Visit Diagnoses Diagnosis Other chronic pain documented in this encounter Care Teams Sizer Machine Relationship Specialty Start Date End Date Angela Luz MD [address] [place] [address] PCP - General Family Medicine 10/27/20 Ninfa Dietrich, PharmD [address] [place] [address] Pharmacist Internal Medicine 11/10/23 [employer] 12/20/23 documented as of this encounter
--- OUTSIDE RECORDS SUMMARY | 2024-07-22 11:21 | XMS_ITS | Encounter Summary ---
Author Organization [employer] Address 75 [facility] 7t [place] [address] Care Team Providers Care Shopper Name Role Phone Angela Luz MD Primary Care Provide r Ninfa Dietrich PharmD Unavailable [phone]- [phone] Reason for Visit * Reason Comments Med Refill Encounter Details Date Type Department Care Team (Late Contact Info) Description 01/27/2023 Refill [facility] 230 [place] [address] Angela Luz MD 230 [place], [place] [phone] Other chronic pain Social History Tobacco Use [...] Description 07/23/2024 9:00 AM EST Telemedicine [facility] [address] [place], [place] [phone] Ninfa Dietrich, PharmD 230 [place] [address] 08/21/2024 10:30 AM EDT Clinical Support [facility] [address] [place] [address] Nazia Martins RN documented as of this encounter Visit Diagnoses Diagnosis Other chronic pain documented in this encounter Care Teams Shopper Relationship Specialty Start Date End Date Angela Luz MD [address] [place] [address] PCP - General Family Medicine 10/27/20 Ninfa Dietrich PharmD [address] [place] [address] Pharmacist Internal Medicine 11/10/23 [employer] 12/20/23 documented as of this encounter
--- OUTSIDE RECORDS SUMMARY | 2024-07-22 11:21 | XMS_ITS | Encounter Summary ---
Author Organization [employer] Address 75 [facility] 7t [place] [address] Care Team Providers Care Quality Assurance Lab Technician Name Role Phone Angela Luz MD Primary Care Provide r Ninfa Dietrich PharmD Unavailable Reason for Visit * Reason Comments Med Refill Encounter Details Date Type Department Care Team (Late Contact Info) Description 02/22/2023 Refill [facility] 230 [place], [place] [phone] Angela Luz MD 230 [place], [place] [phone] Type 2 diabetes mellitus with stage 3 [...] Info) Description 07/23/2024 9:00 AM EST Telemedicine [facility] [address] [place] [address] Ninfa Dietrich PharmD [address] [place] [address] 08/21/2024 10:30 AM EDT Clinical Support [address] [address] Nazia Martins RN documented as of this encounter Visit Diagnoses Diagnosis Type 2 diabetes mellitus with stage 3 chronic kidney disease, with long-term current use of insulin, unspecified whether stage 3a or 3b CKD (CMS/HCC) documented in this encounter Care Teams Quality Assurance Lab Technician Relationship Specialty Start Date End Date Angela Luz MD [address] [place] [address] PCP - General Family Medicine 10/27/20 Ninfa Dietrich PharmD [address] [place] [phone] Pharmacist Internal Medicine 11/10/23 [employer] 12/20/23 documented as of this encounter
--- OUTSIDE RECORDS SUMMARY | 2024-07-22 11:21 | XMS_ITS | Encounter Summary ---
Author Organization [employer] Address 75 [facility] 7t [place] [address] Care Team Providers Care Mine Equipment Design Engineer Name Role Phone Angela Luz MD Primary Care Provide r Ninfa Dietrich PharmD Unavailable [phone]- [phone] Reason for Visit * Reason Onset Date Comments Med Refill 05/30/2023 Encounter Details Date Type Department Care Team (Late st Contact Info) Description 05/30/2023 Refill [facility] 230 [place], [place] [phone] Lashonda Alvarado MD 230 [place], [place] [phone] Constipation, unspecified constipation type Social History Tobacco [...] Info) Description 07/23/2024 9:00 AM EST Telemedicine [facility] [address] [place] [address] Ninfa Dietrich PharmD [address] [place] [address] 08/21/2024 10:30 AM EDT Clinical Support [address] [address] Nazia Martins RN documented as of this encounter Visit Diagnoses Diagnosis Constipation, unspecified constipation type documented in this encounter Care Teams Mine Equipment Design Engineer Relationship Specialty Start Date End Date Angela Luz MD [address] [place] [address] PCP - General Family Medicine 10/27/20 Ninfa Dietrich PharmD [address] [place] [address] Pharmacist Internal Medicine 11/10/23 [employer] 12/20/23 documented as of this encounter
--- OUTSIDE RECORDS SUMMARY | 2024-07-22 11:21 | XMS_ITS | Encounter Summary ---
Author Organization [employer] Address 75 [facility] 7t [place] [address] Care Team Providers Care Director Of Perioperative Services Name Role Phone Angela Luz MD Primary Care Provide r Ninfa Dietrich PharmD Unavailable [phone]- [phone] Reason for Visit * Reason Comments Med Refill Encounter Details Date Type Department Care Team (Late st Contact Info) Description 07/20/2023 Refill [facility] 230 [place], [place] [phone] Angela Cornell MD 230 [place], [place] [phone] Social History Tobacco Use Types Packs/Day Years [...] Info) Description 07/23/2024 9:00 AM EST Telemedicine [address] [address] Ninfa Dietrich PharmD [address] [place] [address] 08/21/2024 10:30 AM EDT Clinical Support [address] [address] Nazia Martins RN documented as of this [...] on filedocumented in this encounter Care Teams Director Of Perioperative Services Relationship Specialty Start Date End Date Angela Luz MD [address] [place] [address] [phone] PCP - General Family Medicine 10/27/20 Ninfa Dietrich PharmD [address] [place] [address] [phone] Pharmacist Internal Medicine 11/10/23 [employer] 12/20/23 documented as of this encounter
--- OUTSIDE RECORDS SUMMARY | 2024-07-22 11:21 | XMS_ITS | Encounter Summary ---
Author Organization [employer] Address 75 [facility] 7t [place] [address] Care Team Providers Care Tobacco Grader Name Role Phone Angela Luz MD Primary Care Provide r Ninfa Dietrich PharmD Unavailable [phone]- [phone] Reason for Visit * Reason Onset Date Comments Med Refill 05/30/2023 Encounter Details Date Type Department Care Team (Late st Contact Info) Description 05/30/2023 Refill [facility] 230 [place], [place] [phone] Gemini Lagunas MD 230 [place], [place] [phone] Primary hypertension Social History Tobacco Use Types [...] Info) Description 07/23/2024 9:00 AM EST Telemedicine [facility] [address] [place] [address] Ninfa Dietrich PharmD [address] [place] [address] 08/21/2024 10:30 AM EDT Clinical Support [facility] [address] [place] [address] Nazia Martins RN documented as of this encounter Visit Diagnoses Diagnosis Primary hypertension Unspecified essential hypertension documented in this encounter Care Teams Tobacco Grader Relationship Specialty Start Date End Date Angela Luz MD [address] [place] [address] PCP - General Family Medicine 10/27/20 Ninfa Dietrich PharmD [address] [place] [phone] Pharmacist Internal Medicine 11/10/23 [employer] 12/20/23 documented as of this encounter
--- OUTSIDE RECORDS SUMMARY | 2024-07-22 11:21 | XMS_ITS | Encounter Summary ---
Author Organization [employer] Address 75 [facility] 7t [place] [address] Care Team Providers Care Scout Name Role Phone Angela Luz MD Primary Care Provide r Ninfa Dietrich PharmD Unavailable [phone]- [phone] Reason for Visit * Reason Comments Follow-up COPD Encounter Details Date Type Department Care Team (Late st Contact Info) Description 06/28/2024 11:15 AM EST Office Visit [facility] 230 [place], [place] [phone] Angela Luz MD 230 [place], [place] [phone] Primary hypertension (Primary Dx); Type 2 diabetes [...] disease, with long-term current use of insulin ([facility]/HCC) Social History Tobacco Use Types Packs/Day [...] retinopathy associated with type 2 diabetes mellitus ([facility]/HCC) Normocytic anemia B12 deficiency anemia Obesity (BMI 30-39.9) Obstructive sleep apnea Precordial pain Renal osteodystrophy Solitary pulmonary nodule Type 2 diabetes mellitus with diabetic chronic kidney disease (CMS/HCC) Type 2 diabetes mellitus ([facility]/HCC) Hypertension Venous insufficiency of leg Other chronic pain Type 2 diabetes mellitus with stage 3 chronic kidney disease, with long-term current use of insulin([facility]) Epistaxis Other constipation Diabetic polyneuropathy associated with type 2 diabetes mellitus ([facility]/HCC) Depression with anxiety Type 2 diabetes mellitus with hypoglycemia without coma, with long-term current use of insulin ([facility]) Anemia due to stage 3b chronic kidney disease (CMS/HCC) (CMS/HCC) Congestive heart failure ([facility]/HCC) Health care maintenance Idiopathic hypotension Chronic kidney disease, stage 4 (severe) ([facility]) No family history on file. Review [...] by mouth daily. Blood Glucose Monitoring Suppl (RFMicronyle Lite) device Inject under the skin 4 [...] THE EVENING 30 g 0 Continuous Glucose Sediment Remediation Consultant (RFMicronyle Jeovany 2 [place]) device USE DIRECTED TO TEST BLOOD SUGAR [...] tip and replace cap. 16 g 0 Vdvarjxrkfw-Wbxpfzzzk-Hthahz (Trelegy Ellipta) 200-62.5-25 MCG/ACT aerosol powder inhale [...] Addressed This Visit Type 2 diabetes mellitus ([facility]) Diabetes is: controlled - Lab Results [...] dose Chronic kidney disease, stage 4 (severe) ([facility]) Creatinine and EGFR seems to be stable I advised to avoid nephrotoxic medications Continue to follow-up with nephrology Chronic combined systolic and diastolic heart failure ([facility]) Patient is clinically stable Continue with same medications and follow-up with cardiology Chronic obstructive pulmonary disease ([facility]) Stable continue with same medications and continue to follow-up with pulmonology Congestive heart failure ([facility]) documented in this encounter Miscellaneous Notes * Assessment & Plan Note - Angela Haley MD - 06/28/2024 4:40 PM EST Associated Problem(s): Type 2 diabetes mellitus ([facility]) Diabetes is: controlled - Lab Results [...] Info) Description 07/23/2024 9:00 AM EST Telemedicine [facility] [address] [place] [address] [phone] Ninfa Dietrich LauraD 230 [place] [address] 08/21/2024 10:30 AM EDT Clinical Support [facility] 230 [place] [address] Nazia Martins, RN Scheduled Orders Name Type Priority Associated Diagnoses Orde r Schedule Lipid Panel, Standard Lab Routine Type 2 diabetes mellitus with hyperglycemia, with long-term current use of insulin ([facility]) Expected: 06/28/2024 (Approximate), Expires: 06/28/2025 Comprehensive Metabolic Panel Lab Routine Type 2 diabetes mellitus with hyperglycemia, with long-term current use of insulin ([facility]) Expected: 06/28/2024 (Approximate), Expires: 06/28/2025 documented [...] hyperglycemia, with long-term current use of insulin ([facility]) documented in this encounter Results * (ABNORMAL) POCT glucose manually resulted (06/28/2024 11:07 AM EST) Glucose Blood, POC 273(A) 60 - 200 mg/dL [facility] Blood Capillary blood specimen / Unknown 06/28/2024 11:07 AM EST us Angela Haley MD POINT OF CARE TEST EN TER/EDIT ORDERABLES Final Result [facility] [address] [place] [phone] documented in this encounter Visit Diagnoses Diagnosis Primary hypertension- Primary Unspecified essential hypertension Type 2 diabetes mellitus with hyperglycemia, with long-term current use of insulin ([facility]) Chronic kidney disease, stage 4 (severe) (CMS/HCC) Chronic combined systolic and diastolic heart failure ([facility]/HCC) Chronic combined systolic and diastolic heart failure Chronic bronchitis, unspecified chronic bronchitis type ([facility]/HCC) Congestive heart failure, unspecified HF chronicity, unspecified heart failure type ([facility]) Type 2 diabetes mellitus with stage 3b chronic kidney disease, with long-term current use of insulin ([facility]) documented in this encounter Care Teams Scout Relationship Specialty Start Date End Date Angela Luz MD 230 [place] [address] PCP - General Family Medicine 10/27/20 Ninfa Dietrich PharmD 230 [place] [address] Pharmacist Internal Medicine 11/10/23 [employer] 12/20/23 documented as of this encounter
--- OUTSIDE RECORDS SUMMARY | 2024-07-22 11:21 | XMS_ITS | Encounter Summary ---
Author Organization [employer] Address [address] [facility] [address] 7t [place] [address] Care Team Providers Care Allergist/Immunologist Name Role Phone Angela Luz MD Primary Care Provide r Ninfa Dietrich PharmD Unavailable [phone]- [phone] Reason for Visit * Reason Onset Date Comments Med Refill 05/30/2023 Encounter Details Date Type Department Care Team (Late st Contact Info) Description 05/30/2023 Refill [facility] [address] [place], [place] [phone] Angela Cornell MD 230 [place], [place] [phone] Diabetic polyneuropathy associated with type 2 diabetes [...] Info) Description 07/23/2024 9:00 AM EST Telemedicine [facility]INE [address] [place] [address] Ninfa Dietrich PharmD [address] [place] [address] 08/21/2024 10:30 AM EDT Clinical Support [address] [address] Nazia Martins, DIAMOND documented as of this encounter Visit Diagnoses Diagnosis Diabetic polyneuropathy associated with type 2 diabetes mellitus (CMS/HCC) documented in this encounter Care Teams Allergist/Immunologist Relationship Specialty Start Date End Date Angela Luz MD [address] [place] [address] PCP - General Family Medicine 10/27/20 Ninfa Dietrich PharmD [address] [place] [address] Pharmacist Internal Medicine 11/10/23 [employer] 12/20/23 documented as of this encounter
--- OUTSIDE RECORDS SUMMARY | 2024-07-22 11:21 | XMS_ITS | Encounter Summary ---
Author Organization [employer] Address 75 [facility] 7t [place] [address] Care Team Providers Care Furniture Mover Helper Name Role Phone Angela Luz MD Primary Care Provide r Ninfa Dietrich PharmD Unavailable [phone]- [phone] Reason for Visit * Reason Comments Med Refill Encounter Details Date Type Department Care Team ([facility] st Contact Info) Description 06/29/2024 Refill [facility] 230 [place], [place] [phone] Angela Luz MD 230 [place], [place] [phone] Social History Tobacco Use Types Packs/Day Years [...] Description 07/23/2024 9:00 AM EST Telemedicine [address] [address] Ninfa Dietrich, LauraD [address] [place] [address] 08/21/2024 10:30 AM EDT Clinical Support [address] [address] Nazia Martins RN documented as of this [...] on filedocumented in this encounter Care Teams Furniture Mover Helper Relationship Specialty Start Date End Date Angela Luz MD [address] [place] [address] PCP - General Family Medicine 10/27/20 Ninfa Dietrich, LauraD [address] [place] [address] Pharmacist Internal Medicine 11/10/23 [employer] 12/20/23 documented as of this encounter
--- OUTSIDE RECORDS SUMMARY | 2024-07-22 11:21 | XMS_ITS | Encounter Summary ---
Author Organization [employer] Address [address] [facility] [address] 7t [place] [address] Care Team Providers Care Banquet Steward Name Role Phone Angela Luz MD Primary Care Provide r Ninfa Dietrich PharmD Unavailable [phone]- [phone] Encounter Details Date Type Department Care Team [...] Info) Description 07/23/2024 9:00 AM EST Telemedicine [address] [phone] Ninfa Dietrich PharmD [address] [place] [address] 08/21/2024 10:30 AM EDT Clinical Support [address] [address] Nazia Martins, DIAMOND documented as of this [...] on filedocumented in this encounter Care Teams Banquet Steward Relationship Specialty Start Date End Date Angela Luz MD [address] [place] [address] [phone] PCP - General Family Medicine 10/27/20 Ninfa Dietrich PharmD [address] [place] [address] [phone] Pharmacist Internal Medicine 11/10/23 [employer] 12/20/23 documented as of this encounter
--- OUTSIDE RECORDS SUMMARY | 2024-07-22 11:21 | XMS_ITS | Encounter Summary ---
Author Organization [employer] Address 75 [facility] 7t [place] [address] Care Team Providers Care Oxyacetylene Cutter Name Role Phone Angela Luz MD Primary Care Provide r Ninfa Dietrich PharmD Unavailable [phone]- [phone] Reason for Visit * Reason Onset Date Comments Med Refill 02/28/2023 Encounter Details Date Type Department Care Team (Late st Contact Info) Description 02/28/[address] [facility] MED[facility]INE 230 [place], [place] [phone] Angela Luz MD 230 [place], [place] [phone] Other chronic pain Social History Tobacco Use [...] 07/23/2024 9:00 AM EST Telemedicine [facility] MEDICINE [address] [place] [address] Ninfa Dietrich PharmD [address] [place] [address] 08/21/2024 10:30 AM EDT Clinical Support [address] [address] Nazia Martins RN documented as of this encounter Visit Diagnoses Diagnosis Other chronic pain documented in this encounter Care Teams Oxyacetylene Cutter Relationship Specialty Start Date End Date Angela Luz MD [address] [place] [address] PCP - General Family Medicine 10/27/20 Ninfa Dietrich PharmD [address] [place] [address] Pharmacist Internal Medicine 11/10/23 [employer] 12/20/23 documented as of this encounter
--- OUTSIDE RECORDS SUMMARY | 2024-07-22 11:21 | XMS_ITS | Clinical Summary ---
Author Organization [employer] Address [address] [facility] [address] [place] [address] Care Team Providers Care Dust Collector Ore Crushing Name Role Phone Angela Luz MD Primary Care Provide r Ninfa Dietrich PharmD Unavailable [phone] Allergies Active Allergy Reactions Criticality Noted Date [...] MG/3ML) 0.083% nebulizer solutionIndicati ons:Simple chronic bronchitis ([facility]) INHALE 1 AMPULE USING A NEBULIZER THREE [...] unspecified whether stage 3a or 3b CKD ([facility]) Use to test blood sugar 3 times daily 100 each 12 024 2024 Active sertraline (Zoloft) 100 MG tablet Take 1 tablet by mouth in the morning. 024 Active glucose (Glutose) 40 % gel oral gelIndications:T ype 2 diabetes mellitus with stage 3 chronic kidney disease, with long-term current use of insulin, unspecified whether stage 3a or 3b CKD ([facility]) Take 15 g by mouth if needed for low blood sugar. 45 g 11 06/28/2 024 Active glucagon (Baqsimi) 3 MG/DOSE nasal powderIndication s:Type 2 diabetes mellitus with hypoglycemia without coma, with long-term current use of insulin ([facility]) For severe hypoglycemia, administer 3 mg (1 [...] coma, with long-term current use of insulin ([facility]) Use for insulin administration three times daily. Use as instructed 100 each 024 2024 Active clotrimazole (Lotrimin) 1 % creamIndications :Type 2 diabetes mellitus with other specified complication, unspecified whether ferry terminal agent insulin use ([facility]) APPLY TOPICALLY TO AFFECTED AREA(S) AND SURROUNDING AREA(S) TWICE DAILY IN THE MORNING AND IN THE EVENING 30 g Active Continuous Glucose Ship Surveyor (FreeStyle Jeovany 2 [place]) deviceIndication s:Type 2 diabetes mellitus with stage 3 chronic kidney disease, with long-term current use of insulin, unspecified whether stage 3a or 3b CKD ([facility]) USE DIRECTED TO TEST BLOOD SUGAR EVERY [...] unspecified whether stage 3a or 3b CKD ([facility]) INJECT 44 UNITS SUBCUTANEOUSLY ONCE DAILY 024 Active pregabalin (Lyrica) 75 MG capsuleIndicatio ns:Diabetic polyneuropathy associated with type 2 diabetes mellitus ([facility]) TAKE 1 CAPSULE BY MOUTH TWICE DAILY IN THE MORNING AND IN THE EVENING 60 capsule 1 024 Active insulin aspart (NovoLOG FLEXPEN) 100 UNIT/ML penIndications:T ype 2 diabetes mellitus with stage 3 chronic kidney disease, with long-term current use of insulin, unspecified whether stage 3a or 3b CKD ([facility]) USE DIRECTED THREE TIMES DAILY PER SLIDING [...] unspecified whether stage 3a or 3b CKD ([facility]) USE DIRECTED CHANGE EVERY 14 DAYS 2 [...] hyperglycemia, with long-term current use of insulin ([facility]) Inject 1 mg under the skin 1 [...] unspecified whether stage 3a or 3b CKD ([facility]) Inject under the skin 4 times daily. [...] hyperglycemia, with long-term current use of insulin ([facility]) INJECT 0.5 MG SUBCUTANEOUSLY EVERY 7 DAYS [...] AM EDT): I will refer patient to scrap dealer outside after this plan is to refer [...] current medications - Patient already has seen scrap dealer diabetes has being challenging to manage I will refer her to endocrinology Assessment & Plan (07/21/2022 12:56 PM EST): Llast A1c was high. Continue current insulins dose XXXXX Continue Farxiga. FU with PCP in 2 months. FU closely with registered nurse fetal. Assessment & Plan (06/08/2022 1:02 PM EST): Restart Farxiga 10 mg and increase Lantus to 50 units qhs, continue 43 units in the morning. -Continue Humalog sliding scale. -Encouraged to increase small in fraction meals. -Will refer to state tested nursing assistant and transport corps officer. -FU with me in 3-4 weeks. Other [...] or stolen. Prescription sent today. FU with DRAFT ROLLER [employer]ER nurse. Moderate persistent asthma 08/07/2017 Overview (04/29/2022): [...] 06/11/2012 Overview (04/29/2022): 01/[address] in [place]. Last CT (abd) 06/02/12 - 5x7 pulm [...] 06/03/2019 that showed infiltrating ductal carcinoma, ER VT positive HER-2/ayanna negative grade 2 malignancy Patient [...] right breast. Pt follow up closely at [facility]/Dr. March. Obtain result of last mammogram. Continue on anastrozole Encounters Date Type Department Care Team Description 07/22/2024 Orders Only GENERIC EXTERNAL DATA DEPARTMENT Provider, Generic External Data 07/09/2024 Refill [facility] [address] [place] [phone] Angela Luz MD Other chronic pain 07/01/2024 Travel 06/29/2024 Refill [facility] [address] [place] [address] Angela Luz MD 06/28/2024 11:15 AM EST Office Visit [facility] [address] [place] [address] Angela Luz MD Primary hypertension (Primary Dx); Type 2 diabetes mellitus with hyperglycemia, with long-term current use of insulin ([facility]); Chronic kidney disease, stage 4 (severe) ([facility]); Chronic combined systolic and diastolic heart failure ([facility]); Chronic bronchitis, unspecified chronic bronchitis type ([facility]); Congestive heart failure, unspecified HF chronicity, unspecified heart failure type ([facility]); Type 2 diabetes mellitus with stage 3b chronic kidney disease, with long-term current use of insulin ([facility]) 06/28/2024 Travel 06/26/2024 Telephone [facility] [address] [place] [address] Lars Vides [place] Chart Prep 06/23/2024 Refill [facility] [address] [place], [place] [phone] Angela Luz MD 06/10/2024 Refill [facility] [address] [place] [address] Angela Luz MD Type 2 diabetes mellitus with stage 3 chronic kidney disease, with long-term current use of insulin, unspecified whether stage 3a or 3b CKD ([facility]) 06/06/2024 Refill [facility] [address] [place] [address] Angela Luz MD Other chronic pain 05/31/2024 Refill [facility] [address] [place] [address] Angela Luz MD 05/30/2024 Refill [facility] [address] [place] [address] Angela Luz MD Primary hypertension; Constipation, unspecified constipation type 05/28/2024 Refill [facility] [address] [place] [address] Ninfa Dietrich PharmD Type 2 diabetes mellitus with stage 3 chronic kidney disease, with long-term current use of insulin, unspecified whether stage 3a or 3b CKD (CMS/HCC) 05/16/2024 Refill [facility] [address] [place] [address] Angela Luz MD Diabetic polyneuropathy associated with type 2 diabetes mellitus ([facility]) 05/10/2024 Telephone [facility] [address] [place] [address] Angela Luz MD Med Refill 05/10/2024 Refill [facility] [address] [place] [phone] Angela Luz MD Other chronic pain 05/07/2024 Telephone [facility] [address] [place] [phone] Hortencia Dueñas MD 05/07/2024 Telephone [facility] [address] [place] [phone] Joyce Peñaloza [place] 05/06/2024 9:20 AM EST Office Visit [facility] [address] [place] [phone] Hortencia Dueñas MD Cough in adult patient; Acute cough 05/03/2024 Refill [facility] [address] [place] [phone] Angela Luz MD 05/01/2024 Refill [facility] [address] [place] [phone] Angela Luz MD Anemia in chronic kidney disease, unspecified CKD stage 04/30/2024 Orders Only [facility] [address] [place] [phone] Angela Luz MD Type 2 diabetes mellitus with stage 3 chronic kidney disease, with long-term current use of insulin, unspecified whether stage 3a or 3b CKD ([facility]) (Primary Dx); Primary hypertension 04/30/2024 Orders Only [facility] [address] [place] [address] Angela Luz MD 04/30/2024 Telephone [facility] [address] [place] [address] Ninfa Dietrich, Shadia 04/30/2024 Travel 04/25/2024 10:00 AM EST Office Visit [facility] [address] [place] [address] Azalea España ANP Viral URI (Primary Dx); Nasal congestion; Acute cough 04/25/2024 9:00 AM EST Clinical Support [facility] [address] [place], [place] [phone] Nazia Martins, service establishment attendant right shoulder pain (Primary Dx) 04/25/2024 Travel 04/25/2024 Refill [facility] [address] [place] [address] Ninfa Dietrich, PharmD Type 2 diabetes mellitus with hyperglycemia, with long-term current use of insulin ([facility]) 04/25/2024 Telephone [facility] [address] [place] [address] Nazia Martins, RN Recomended [employer] Tier 3 from Last 3 Months Immunizations [...] t he electric, gas, oil or water [employer] threatened to shut off services in your [...] 9:00 AM EST Telemedicine [facility] [address] [place] [phone] Ninfa Dietrich, LauraD [address] [place] [phone] 08/21/2024 10:30 AM EDT Clinical Support [facility] [address] [place] [phone] Nazia Martins, DIAMOND Health Maintenance Due Date Last Done Comments CT Colonography 1955 Colonoscopy 1955 Colorectal Cancer Screening 1955 Dental Prophylaxis 1955 Dental X-Ray: Bitewings 1954 FIT DNA/Cologuard 1955 FIT 1955 FOBT 1955 Sigmoidoscopy 1954 Diabetes: Foot Exam 1964 Eye Exam 1965 Dental Oral Exam 08/08/2023 02/06/2023 Lipid Panel 05/23/2024 05/23/2023, 0212/2021, 10/28/2020 Diabetes: Hemoglobin A1C 06/26/2024 024, 12/06/2023, 09/11/2023, Additional history exists SDOH Screening 06/27/2024 06/27/2023 Depression Screening 12/25/2024 12/26/2023, 12/26/19 24 Alcohol/Substance [...] Procedure Name Priority Date/Time Associated Diagnosis Comments PROTHROMBIN TIME-INR Routine 07/22/2024 10:21 AM EST CBC WITH AUTO DIFFERENTIAL Routine 07/22/2024 10:21 AM EST POCT GLUCOSE Routine 06/28/2024 11:07 AM EST Type 2 diabetes mellitus with hyperglycemia, with long-term current use of insulin ([facility]) XR CHEST 2 VIEWS Routine 05/06/2024 10:3 [...] disease, with long-term current use of insulin ([facility]) LIPID PANEL, STANDARD Routine 05/23/2023 9:57 AM EST Primary hypertension HEPATITIS PANEL, GENERAL Routine 03/20/2023 11:30 AM EDT PANORAMIC RADIOGRAPHIC IMAGE Routine 02/06/2023 11:00 AM EDT Edentulism COMPREHENSIVE ORAL EVALUATION - NEW OR ESTABLISHED PATIENT Routine 02/06/2023 11:00 AM EDT Edentulism HM MAMMOGRAPHY Routine 04/08/2022 from Last 3 Months or Most Recently Relevant to Health Maintenance Results * (ABNORMAL) CBC auto differential (07/22/2024 10:21 AM EST) White Blood Count 5.2 4.8 - 10.8 X10*3/uL [facility] Red Blood Count 4.45 4.20 - 5.50 X10*6/uL [facility] Hemoglobin 11.7(L) 12.0 - 16.0 g/dl [facility] Hematocrit 35.5(L) 37.0 - 47.0 % [facility] Mean Corpuscular Volume 79.8(L) 80.0 - 98.0 fL [facility] Mean Corpuscular Hemoglobin 26.3(L) 27.0 - 33.0 pg [facility] Mean Corpuscular HGB Conc 33.0 31.0 - 35.0 g/dl [facility] Red Cell Distribution Width 20.4(H) 11.0 - 16.0 % [facility] Platelet Count 141(L) 160 - 400 X10*3/uL [facility] Comment:Test was verified by repeat analysis. Mean Platelet Volume 9.3(L) 9.4 - 12.3 fL [facility] Neutrophils Percent Auto 58.2 45 - 73 % [facility] Imm Gran Pct Auto 0.4 0.0 - 0.4 % [facility] Lymphocytes Percent Auto 27.4 20 - 40 % [facility] Monocytes Percent Auto 7.5 2 - 11 % [facility] Eosinophils Percent Auto 5.7(H) 0 - 4 % [facility] Basophils Percent Auto 0.8 0 - 2 % [facility] NRBC Pct Auto 0.0 0.0 - 0.2 /100WBC [facility] Neutrophils Absolute Auto 3.0 2.0 - 8.3 x10*3/uL [facility] Imm Gran Abs Auto 0.02 0.00 - 0.03 X10*3/uL [facility] Lymphocytes Absolute Auto 1.4 1.2 - 4.9 X10*3/uL [facility] Monocytes Absolute Auto 0.4 0.1 - 1.2 X10*3/uL [facility] Eosinophils Absolute Auto 0.3 0.0 - 0.4 X10*3/uL [facility] Basophils Absolute Auto 0.0 0.0 - 0.2 X10*3/uL [facility] NRBC Abs Auto 0.000 0.0 - 0.012 X10*3/uL [facility] 07/22/2024 10:2 1 AM EST 07/22/2024 10:21 AM EST us Generic External Data Provider LAB BLOOD ORDERAB LES Final Result [facility] [address] [place] [phone] * Prothrombin Time-INR (07/22/2024 10:21 AM EST) Prothrombin Time 12.0 10.9 - 12.4 SEC [facility] INTERNATIONAL NORM RATIO 1.0 0.9 - 1.1 [facility] Comment:INTERNATIONAL NORMAL IZED RATIO (INR) REFERENCE RANGES Reference RangeFor patients not on anticoagulant therapy: 0.9 - 1.1INR ranges for oral anticoagulanttherapy:For prevention and treatment of venous thrombosis and pulmonary embolism: 2.0 - 3.0For acute myocardial infarction with aspirin therapy: 2.0 - 3.0For acute myocardial infarction without aspirin therapy: 3.0 - 4.0For patients with mechanical prosthetic heart valves: 2.5 - 3.5 07/22/2024 10:2 1 AM EST 07/22/2024 10:21 AM EST us Generic External Data Provider LAB BLOOD ORDERAB LES Final Result Performing Organization Address [facility] Co de Phone Number [facility] [address] [place] [phone] * (ABNORMAL) POCT glucose manually resulted (06/28/2024 11:07 AM EST) Glucose Blood, POC 273(A) 60 - 200 mg/dL [facility] Blood Capillary blood specimen / Unknown 06/28/2024 11:07 AM EST us Angela Haley MD POINT OF CARE TEST EN TER/EDIT ORDERABLES Final Result Performing Organization Address [facility] Co de Phone Number [facility] [address] [place] [phone] * XR Chest 2 Views (05/06/2024 10:32 AM EST) Anatomical Region Laterality Modality Chest Radiographic [place] ging 05/06/2024 10:3 2 AM EST Narrative 05/06/2024 3:28 PM EST ?[facility] ?[address] ?[place] [address] ?XRay Report ? Signed ? Patient: Dominguez Moreno,Angela ?MR#: ?? [id number] ? : 1955 ?Acct:[id number] ? Age/Sex: 68 / F ?ADM Date: 12/16/24 ? Loc: HO.HHCX ? Attending Dr: Hortencia Dueñas MD ? Ordering Physician: Hortencia Dueñas MD ?? Date of Service: 05/06/24 ?? Procedure(s): XR chest 2V ?? Accession Number(s): [id number] ? cc: Hortencia Dueñas MD ? EXAMINATION: [...] ??Salazar Garza MD ??05/06/2024 03:25 PM EST ? Dictated By: ?Salazar Garza MD ? Signed By: ?<Electronically signed by Salazar Garza MD in OV> ?05/06/24 1525 ? DD/ 1032 ? TD/TT: 05/06/24 1040 ? Ring Striker: HB ? Procedure Note Benjamin, Varun - 05/06/[address] [address] XRay Report Signed Patient: Angela Cullen#: [id number] : 5Acct:[id number] Age/Sex: 68 / FADM Date: 05/06/24 Loc: HO.HHCX Attending Dr: Hortencia Dueñas MD Ordering Physician: Hortencia Deuñas MD Date of Service: 05/06/24 Procedure(s): XR chest 2V Accession Number(s): [id number] cc: Hortencia Dueñas MD EXAMINATION: XR CHEST [...] Salazar Garza MD 05/06/2024 03:25 PM EST RP Dictated By: Salazar Garza MD Signed By: <Electronically signed by Salazar Garza MD in OV> 05/06/24 1525 DD/ 1032 TD/TT: 05/06/24 1040 Ring Striker: HB us Hortencia Dueñas MD IMG XR PROCEDURES Edited Re sult - Final * Influenza B (ID NOW Rapid Molecular) (05/06/2024 9:42 AM EST) Only the most recent of2 resultswithin the time period is included. [facility] Influenza B Negative Negative, Indeterminate [facility] Swab 05/06/2024 9:42 AM EST us Hortencia Dueñas MD POINT OF CARE TEST ENTER/ED IT ORDERABLES Final Result [facility] [address] [place] [phone] * Influenza A (ID NOW Rapid Molecular) (05/06/2024 9:42 AM EST) Only the most recent of2 resultswithin the time period is included. [facility] Influenza A Negative Negative, Indeterminate [facility] Swab 05/06/2024 9:42 AM EST us Hortencia Dueñas MD POINT OF CARE TEST ENTER/ED IT ORDERABLES Final Result Performing Organization Address City/[facility] Co de Phone Number [facility] [address] [place] [phone] * POCT Rapid COVID Ag (05/06/2024 9:34 AM EST) [facility] Rapid COVID Ag Negative Swab 05/06/2024 9:34 AM EST us Hortencia Dueñas MD POINT OF CARE TEST ENTER/ED IT ORDERABLES Final Result * (ABNORMAL) Albumin, Random Urine W/Creatinine (04/30/2024 9:29 AM EST) [facility] Creatinine, Urine 81.21 mg/dL [facility] Microalbumin Urine 61.0 mg/L [facility] Microalbum Creatinine Ratio Ur 75.1(H) <30 ug/mg cr [facility] Comment:Albumin/Creatinine R atio Reference Ranges: Normal: < 30 ug/mg creatinine Microalbuminuria: 30 - 300 ug/mg creatinineClinical Albuminuria: > 300 ug/mg creatinine 04/30/2024 9:29 AM EST 04/30/2024 11:34 AM EST us Angela Haley MD LAB URINE ORDERABLES Final Result Performing Organization Address City/[facility]/ZIP Co de Phone Number [facility] [address] [place] [phone] * POCT Rapid Covid-19 HAYDEN ID NOW (04/25/2024 10:10 AM EST) [facility] Coronavirus Antigen PCR Negative Negative, Indeterminate, None Detected, Invalid, Specimen unsatisfactory for evaluation, Weakly Positive [facility] QC Media Lot # [id number] [facility] Lot# Expiration Date [id number] [facility] Swab 04/25/2024 10:1 0 AM EST Azalea CENTENO POINT OF CARE TEST ENTER/EDIT OR DERABLES Final Result [facility] [address] [place] [address] [phone] * POCT MIRANDA-14 Urine Drug Screen [...] Date Blood 03/26/2024 10:1 8 AM EST Agnela Haley MD POINT OF CARE TEST EN TER/EDIT ORDERABLES Final Result * (ABNORMAL) Lipid Panel, Standard (05/23/2023 9:57 AM EST) Triglycerides 106 <150 mg/dL [facility] Comment:Desirable Triglyceri de: less than 150 mg/dLBorderline High Triglyceride 150-199 mg/dLHigh Triglyceride: 200-499 mg/dLVery High Triglyceride: greater than or equal to 5OO mg/dL Cholesterol 102 <200 mg/dL [facility] Comment:Desirable Cholestero l: less than 200 mg/dLBorderline High Cholesterol: 200-239 mg/dLHigh Cholesterol: greater than 239 mg/dL LDL Cholesterol Calculated 50 <100 mg/dL [facility] Comment:Desirable LDL: less than 100 mg/dLNear Optimal/Above Optimal LDL: 110- 129 mg/dLBorderline High LDL: 130-159 mg/dLHigh LDL: 160-189 mg/dLVery High LDL: greater than or equal to 190 mg/dL HDL Cholesterol 31(L) >40 mg/dL [facility] Comment:Desirable HDL: great er than 40 mg/dL Note: This HDL assay may give artificially low results in patients with liver disease. Blood Venous blood specimen / Unknown 05/23/2023 9:57 AM EST 05/23/2023 10:59 AM EST Angela Haley MD LAB BLOOD ORDERABLES Final Result Performing Organization Address [facility] Co de Phone Number [facility] [address] [place] [phone] * Hepatitis Panel, General (03/20/2023 11:30 AM EDT) Hepatitis A IgM Nonreactive Nonreactive [facility] Comment:IgM antibodies to [place] V not detected; does not exclude earlyacute or recovered HAV infection. ~Hepatitis B Surface Antibody NONREACTIVE Nonreactive [facility] Comment:Nonreactive: < 8.00 mIU/mL Hepatitis B Core Antibody Nonreactive Nonreactive [facility] Hepatitis C Antibody Nonreactive Nonreactive [facility] Comment:Antibodies to HCV no t detected; does not exclude early acuteHCV infection. Hepatitis B Surface Ag Negative Negative [facility] 03/20/2023 11:3 0 AM EDT 03/20/2023 11:32 AM EDT [facility] External Provider LAB BLO OD ORDERABLES Final Result Performing Organization Address [facility] Co de Phone Number [facility] [address] [place] [phone] * Hm Mammography (04/08/2022) Pathologist [facility], [facility]1983 Mammogram Bi-rads 2 Anatomical Region Laterality Modality Other us Historical Provider MD HEALTH MAINTENANCE Final Result from Last 3 Months or Most Recently Relevant to Health Maintenance Insurance [facility] Care Teams Dust Collector Ore Crushing Relationship Specialty Start Date End Date Angela Luz MD [address] [place] [address] PCP - General Family Medicine 10/27/20 Ninfa Dietrich, LauraD [address] [place] [address] Pharmacist Internal Medicine 11/10/23 [employer] 12/20/23
--- OUTSIDE RECORDS SUMMARY | 2024-07-22 11:21 | XMS_ITS | Encounter Summary ---
Author Organization [employer] Address [address] [place] [address] Care Team Providers Care Global Human Resources Director Name Role Phone Angela Luz MD Primary Care Provide r Ninfa Dietrich PharmD Unavailable [phone] Encounter Details Date Type Department Care Team [...] Info) Description 07/23/2024 9:00 AM EST Telemedicine [address] [phone] Ninfa Dietrich PharmD [address] [place] [phone] 08/21/2024 10:30 AM EDT Clinical Support [address] [phone] Nazia Martins, DIAMOND documented as of this [...] on filedocumented in this encounter Care Teams Global Human Resources Director Relationship Specialty Start Date End Date Angela Luz MD [address] [place] [address] [phone] PCP - General Family Medicine 10/27/20 Ninfa Dietrich PharmD [address] [place] [address] [phone] Pharmacist Internal Medicine 11/10/23 [employer] 12/20/23 documented as of this encounter
--- OUTSIDE RECORDS SUMMARY | 2024-07-22 11:21 | XMS_ITS | Encounter Summary ---
Author Organization [employer] Address 75 [facility] 7t [place] [address] Care Team Providers Care Gas Engine Operator Name Role Phone Angela Luz MD Primary Care Provide r Ninfa Dietrich PharmD Unavailable [phone]- [phone] Reason for Visit * Reason Onset Date Comments Med Refill 05/30/2023 Encounter Details Date Type Department Care Team (Late st Contact Info) Description 05/30/2023 Refill [facility] 230 [place], [place] [phone] Yunier Mohr MD 230 [place], [place] [phone] Forgetfulness Social History Tobacco Use Types Packs/Day [...] Description 07/23/2024 9:00 AM EST Telemedicine [facility] [address] [place] [address] Ninfa Dietrich PharmD [address] [place] [address] 08/21/2024 10:30 AM EDT Clinical Support [address] [address] Nazia Martins RN documented as of this encounter Visit Diagnoses Diagnosis Forgetfulness Other general symptoms documented in this encounter Care Teams Gas Engine Operator Relationship Specialty Start Date End Date Angela Luz MD [address] [place] [address] PCP - General Family Medicine 10/27/20 Ninfa Dietrcih, LauraD [address] [place] [address] Pharmacist Internal Medicine 11/10/23 [employer] 12/20/23 documented as of this encounter
--- OUTSIDE RECORDS SUMMARY | 2024-07-22 11:21 | XMS_ITS | Encounter Summary ---
Author Organization [employer] Address [address] [facility] [address] 7t [place] [address] Care Team Providers Care Gasoline Locomotive Crane Operator Name Role Phone Angela Luz MD Primary Care Provide r Ninfa Dietrich PharmD Unavailable [phone]- [phone] Reason for Visit * Reason Onset Date Comments Med Refill 05/30/2023 Encounter Details Date Type Department Care Team (Late st Contact Info) Description 05/30/2023 Refill [facility] 230 [place], [place] [phone] Yunier Mohr MD 230 [place], [place] [phone] Cervical spondylosis with radiculopathy Social History Tobacco [...] Info) Description 07/23/2024 9:00 AM EST Telemedicine [address] [address] Ninfa Dietrich PharmD [address] [place] [address] 08/21/2024 10:30 AM EDT Clinical Support [address] [address] Nazia Martins, DIAMOND documented as of this encounter Visit Diagnoses Diagnosis Cervical spondylosis with radiculopathy Cervical spondylosis with myelopathy documented in this encounter Care Teams Gasoline Locomotive Crane Operator Relationship Specialty Start Date End Date Angela Luz MD [address] [place] [address] PCP - General Family Medicine 10/27/20 Ninfa Dietrich PharmD [address] [place] [address] Pharmacist Internal Medicine 11/10/23 [employer] 12/20/23 documented as of this encounter
--- OUTSIDE RECORDS SUMMARY | 2024-07-22 11:21 | XMS_ITS | Encounter Summary ---
Author Organization [employer] Address 75 [facility] 7t [place] [address] Care Team Providers Care Learn To Swim Instructor Name Role Phone Angela Luz MD Primary Care Provide r Ninfa Dietrich PharmD Unavailable [phone]- [phone] Reason for Visit * Reason Comments Med Refill Encounter Details Date Type Department Care Team (Late st Contact Info) Description 07/03/2023 Refill [facility] 230 [place], [place] [phone] Angela Luz MD 230 [place], [place] [phone] Seasonal allergic rhinitis, unspecified trigger; Type 2 diabetes mellitus with other specified complication, unspecified whether water commissioner insulin use ([facility] Social History Tobacco Use Types Packs/Day Years [...] Info) Description 07/23/2024 9:00 AM EST Telemedicine [facility] [address] [place] [address] Ninfa Dietrich PharmD [address] [place] [address] 08/21/2024 10:30 AM EDT Clinical Support [facility] [address] [place] [address] Nazia Martins RN documented as of this encounter Visit Diagnoses Diagnosis Seasonal allergic rhinitis, unspecified trigger Type 2 diabetes mellitus with other specified complication, unspecified whether water commissioner insulin use ([facility]) documented in this encounter Care Teams Learn To Swim Instructor Relationship Specialty Start Date End Date Angela Luz MD [address] [place] [address] PCP - General Family Medicine 10/27/20 Ninfa Dietrich PharmD [address] [place] [address] Pharmacist Internal Medicine 11/10/23 [employer] 12/20/23 documented as of this encounter
--- OUTSIDE RECORDS SUMMARY | 2024-07-22 11:21 | XMS_ITS | Encounter Summary ---
Author Organization [employer] Address 75 [facility] 7t [place] [address] Care Team Providers Care Clinical Support Nurse Name Role Phone Angela Luz MD Primary Care Provide r Ninfa Dietrich PharmD Unavailable [phone]- [phone] Reason for Visit * Reason Onset Date Comments Med Refill 06/28/2023 Encounter Details Date Type Department Care Team (Late st Contact Info) Description 06/28/2023 Refill [facility] 230 [place], [place] [phone] Angela Luz MD 230 [place], [place] [phone] Other chronic pain Social History Tobacco Use [...] Info) Description 07/23/2024 9:00 AM EST Telemedicine [facility] [address] [place] [address] Ninfa Dietrich PharmD [address] [place] [address] 08/21/2024 10:30 AM EDT Clinical Support [address] [address] Nazia Martins RN documented as of this encounter Visit Diagnoses Diagnosis Other chronic pain documented in this encounter Care Teams Clinical Support Nurse Relationship Specialty Start Date End Date Angela Luz MD [address] [place] [address] PCP - General Family Medicine 10/27/20 Ninfa Dietrich, PharmD [address] [place] [address] Pharmacist Internal Medicine 11/10/23 [employer] 12/20/23 documented as of this encounter
--- OUTSIDE RECORDS SUMMARY | 2024-07-22 11:21 | XMS_ITS | Encounter Summary ---
Author Organization [employer] Address 75 [facility] 7t [place] [address] Care Team Providers Care Office Auditor Name Role Phone Angela Luz MD Primary Care Provide r Ninfa Dietrich PharmD Unavailable [phone]- [phone] Reason for Visit * Reason Comments Med Refill Encounter Details Date Type Department Care Team ([facility] st Contact Info) Description 03/14/2023 Refill [facility] 230 [place], [place] [phone] Jeancarlos Brice MD 230 [place], [place] [phone] Chronic pruritus Social History Tobacco Use Types Packs/Day Years Used Date Smoking Tobacco: Never Passive Smoke Exposure: Never Smokeless Tobacco: Never Alcohol Use Standard Drinks/Week Comments Never 0 (1 standard drink = 0.6 oz pur e alcohol) Housing Stability Answer Date Recorded What is your housing situation today? I have aclos carmen 03/07/[address] you [...] 9:00 AM EST Telemedicine [facility] [address] [place] [address] Ninfa Dietrich PharmD [address] [place] [address] 08/21/2024 10:30 AM EDT Clinical Support [address] [address] Nazia Martins RN documented as of this encounter Visit Diagnoses Diagnosis Chronic pruritus documented in this encounter Care Teams Office Auditor Relationship Specialty Start Date End Date Angela Luz MD [address] [place] [address] PCP - General Family Medicine 10/27/20 Ninfa Dietrich, PharmD [address] [place] [address] Pharmacist Internal Medicine 11/10/23 [employer] 12/20/23 documented as of this encounter
--- OUTSIDE RECORDS SUMMARY | 2024-07-22 11:21 | XMS_ITS | Encounter Summary ---
Author Organization [employer] Address 75 [facility] 7t [place] [address] Care Team Providers Care Eastern Philosophy Professor Name Role Phone Angela Luz MD Primary Care Provide r Ninfa Dietrich PharmD Unavailable Reason for Visit * Reason Comments Med Refill Encounter Details Date Type Department Care Team (Late Contact Info) Description 02/20/2023 Refill [facility] 505 [place], [place] [phone] Angela Luz MD 230 [place], [place] [phone] Gastroesophageal reflux disease, unspecified whether esophagitis present [...] Info) Description 07/23/2024 9:00 AM EST Telemedicine [facility] 230 [place], [place] [phone] Ninfa Dietrich PharmD [address] [place] [address] 08/21/2024 10:30 AM EDT Clinical Support [facility] [address] [place] [address] Nazia Martins RN documented as of this encounter Visit Diagnoses Diagnosis Gastroesophageal reflux disease, unspecified whether esophagitis present documented in this encounter Care Teams Eastern Philosophy Professor Relationship Specialty Start Date End Date Angela Luz MD [address] [place] [address] PCP - General Family Medicine 10/27/20 Ninfa Dietrich PharmD [address] [place] [address] Pharmacist Internal Medicine 11/10/23 [employer] 12/20/23 documented as of this encounter
--- OUTSIDE RECORDS SUMMARY | 2024-07-22 11:21 | XMS_ITS | Encounter Summary ---
Author Organization [employer] Address 75 [facility] 7t [place] [address] Care Team Providers Care Pattern Carrier Name Role Phone Angela Luz MD Primary Care Provide r Ninfa Dietrich PharmD Unavailable [phone] Reason for Visit * Reason Comments Med Refill Encounter Details Date Type Department Care Team ([facility] st Contact Info) Description 07/09/2024 Refill [facility] 230 [place], [place] [phone] Angela Luz MD 230 [place], [place] [phone] Other chronic pain Social History Tobacco Use [...] Info) Description 07/23/2024 9:00 AM EST Telemedicine [address] [address] Ninfa Dietrich PharmD [address] [place] [address] 08/21/2024 10:30 AM EDT Clinical Support [address] [address] Nazia Martins RN documented as of this [...] pain documented in this encounter Care Teams Pattern Carrier Relationship Specialty Start Date End Date Angela Luz MD [address] [place] [address] PCP - General Family Medicine 10/27/20 Ninfa Dietrich, LauraD [address] [place] [address] Pharmacist Internal Medicine 11/10/23 [employer] 12/20/23 documented as of this encounter
--- OUTSIDE RECORDS SUMMARY | 2024-07-22 11:21 | XMS_ITS | Encounter Summary ---
Author Organization [employer] Address [address] [facility] [address] 7t [place] [address] Care Team Providers Care Sanitation Worker Name Role Phone Angela Luz MD Primary Care Provide r Ninfa Dietrich PharmD Unavailable [phone] Reason for Visit * Reason Comments Med Refill Encounter Details Date Type Department Care Team (Late st Contact Info) Description 06/23/2024 Refill [facility] [address] [place], [place] [phone] Angela Luz MD 230 [place], [place] [phone] Social History Tobacco Use Types Packs/Day Years [...] Info) Description 07/23/2024 9:00 AM EST Telemedicine [address] [address] Ninfa Dietrich PharmD [address] [place] [address] 08/21/2024 10:30 AM EDT Clinical Support [address] [address] Nazia Martins RN documented as of this [...] on filedocumented in this encounter Care Teams Sanitation Worker Relationship Specialty Start Date End Date Angela Luz MD [address] [place] [address] PCP - General Family Medicine 10/27/20 Ninfa Dietrich, Shadia [address] [place] [address] Pharmacist Internal Medicine 11/10/23 [employer] 12/20/23 documented as of this encounter
--- OUTSIDE RECORDS SUMMARY | 2024-07-22 11:21 | XMS_ITS | Encounter Summary ---
Author Organization [employer] Address [address] [facility] [address] 7t [place] [address] Care Team Providers Care Repairer Pump Name Role Phone Angela Luz MD Primary Care Provide r Ninfa Dietrich PharmD Unavailable [phone] Reason for Visit * Reason Onset Date Comments Chart Prep 06/26/2024 Encounter Details Date Type Department Care Team ([facility] st Contact Info) Description 06/26/2024 Telephone [facility] 230 [place], [place] [phone] Lars Vides MA Chart Prep Social History [...] Description 07/23/2024 9:00 AM EST Telemedicine [facility] [address] [place] [address] Ninfa Dietrich, LauraD [address] [place] [address] 08/21/2024 10:30 AM EDT Clinical Support [facility] [address] [place] [address] Nazia Martins RN documented as of this [...] on filedocumented in this encounter Care Teams Repairer Pump Relationship Specialty Start Date End Date Angela Luz MD 230 [place] [address] PCP - General Family Medicine 10/27/20 Ninfa Dietrich PharmD 230 [place] [address] Pharmacist Internal Medicine 11/10/23 [employer] 12/20/23 documented as of this encounter
--- OUTSIDE RECORDS SUMMARY | 2024-07-22 11:21 | XMS_ITS | Encounter Summary ---
Author Organization [employer] Address 75 [facility] 7t [place] [address] Care Team Providers Care Arboreal Scientist Name Role Phone Angela Luz MD Primary Care Provide r Ninfa Dietrich PharmD Unavailable [phone]- [phone] Reason for Visit * Reason Onset Date Comments Med Refill 03/14/2024 Encounter Details Date Type Department Care Team (Late st Contact Info) Description 03/14/2024 Refill [facility] 230 [place], [place] [phone] Angela Luz MD 230 [place], [place] [phone] Social History Tobacco Use Types Packs/Day Years [...] Description 07/23/2024 9:00 AM EST Telemedicine [facility] [address] [place] [address] Ninfa Dietrich PharmD [address] [place] [address] 08/21/2024 10:30 AM EDT Clinical Support [address] [address] Nazia Martins RN documented as of this [...] on filedocumented in this encounter Care Teams Arboreal Scientist Relationship Specialty Start Date End Date Angela Luz MD [address] [place] [address] PCP - General Family Medicine 10/27/20 Ninfa Dietrich, Shadia [address] [place] [address] Pharmacist Internal Medicine 11/10/23 [employer] 12/20/23 documented as of this encounter
--- OUTSIDE RECORDS SUMMARY | 2024-07-22 11:22 | XMS_ITS | Encounter Summary ---
Author Organization [employer] Address 75 [facility] 7t [place] [address] Care Team Providers Care Surgical Appliances Salesperson Name Role Phone Angela Luz MD Primary Care Provide r Ninfa Dietrich PharmD Unavailable Reason for Visit * Reason Comments Med Refill Encounter Details Date Type Department Care Team (Late Contact Info) Description 12/05/2022 Refill [facility] 505 [place] [address] Angela Luz MD 230 [place] [address] Diabetic polyneuropathy associated with type 2 diabetes [...] Info) Description 07/23/2024 9:00 AM EST Telemedicine [address] [address] Ninfa Dietrich PharmD [address] [place] [address] 08/21/2024 10:30 AM EDT Clinical Support [address] [address] Nazia Martins RN documented as of this encounter Visit Diagnoses Diagnosis Diabetic polyneuropathy associated with type 2 diabetes mellitus (CMS/HCC) Primary hypertension Unspecified essential hypertension Chronic right-sided thoracic back pain documented in this encounter Care Teams Surgical Appliances Salesperson Relationship Specialty Start Date End Date Angela Luz MD [address] [place] [address] PCP - General Family Medicine 10/27/20 Ninfa Dietrich PharmD [address] [place] [address] Pharmacist Internal Medicine 11/10/23 [employer] 12/20/23 documented as of this encounter
--- OUTSIDE RECORDS SUMMARY | 2024-07-22 11:22 | XMS_ITS | Encounter Summary ---
Author Organization [employer] Address 75 [facility] 7t [place] [address] Care Team Providers Care Side Door Worker Name Role Phone Angela Luz MD Primary Care Provide r Ninfa Dietrich PharmD Unavailable Reason for Visit * Reason Comments Med Refill Encounter Details Date Type Department Care Team (Late Contact Info) Description 12/05/2022 Refill [facility] 230 [place] [address] Gemini Lagunas MD 230 [place], [place] [phone] Type 2 diabetes mellitus with unspecified complications [...] AM EST Telemedicine [facility] 230 [place], [place] [phone] Ninfa Dietrich PharmD [address] [place] [address] 08/21/2024 10:30 AM EDT Clinical Support [facility] [address] [place] [address] Nazia Martins RN documented as of this encounter Visit Diagnoses Diagnosis Type 2 diabetes mellitus with unspecified complications (CMS/HCC) documented in this encounter Care Teams Side Door Worker Relationship Specialty Start Date End Date Angela Luz MD [address] [place] [address] PCP - General Family Medicine 10/27/20 Ninfa Dietrich PharmD [address] [place] [address] Pharmacist Internal Medicine 11/10/23 [employer] 12/20/23 documented as of this encounter
--- OUTSIDE RECORDS SUMMARY | 2024-07-22 11:22 | XMS_ITS | Clinical Summary ---
Author Organization [facility] Address [address] [place] [address] Care Team Providers Care Monologist Name Role Phone Angela Luz MD Primary [...] 06/11/2012 Overview (07/20/2020): 01/[address] in [place]. Last CT (abd) 06/02/12 - 5x7 pulm nodule, recommended rpt CT to confirm 2 years of stability. Obstructive sleep apnea 01/31/201212/21 Restless legs 10/06/2011 01/11/2021 Glaucoma 02/15/2011 01/11/2021 Hyperlipidemia 02/15/2011 01/11/2021 Encounters Date Type Department Care Team Description 06/26/2024 Refill [facility] [address] [place] [address] Beau Vargas MD Hypertension; Type 2 diabetes mellitus with diabetic chronic kidney disease (HCC); Anemia in chronic kidney disease; Iron deficiency anemia, not otherwise specified 05/01/2024 Refill [facility] [address] [place] [address] Beau Vargas MD from Last 3 Months [...] Visit [facility] [address] [place] [address] Beau Vargas MD [address] [facility] [address] [place] [phone] Health Maintenance Due Date Last Done Comments [...] 03/26/2024, , 03/14/2020, Additional history exists Insurance [facility] ([id number]) [place] [id number] [id number] [facility] [place] [address] [facility] ([id number]) Care Teams Monologist Relationship Specialty Start Date End Date Angela Luz MD [address] [place] [phone] PCP - General Internal Medicine 01/12/21
--- OUTSIDE RECORDS SUMMARY | 2024-07-22 11:22 | XMS_ITS | Encounter Summary ---
Author Organization [employer] Address [address] [facility] [address] 7t [place] [address] Care Team Providers Care Enamel Cracker Name Role Phone Angela Luz MD Primary Care Provide r Ninfa Dietrich PharmD Unavailable [phone]- [phone] Encounter Details Date Type Department Care Team (Late st Contact Info) Description 04/18/2023 Abstract [facility]INE 230 [place] [address] Delia Ballard Social History Tobacco Use Types [...] Description 07/23/2024 9:00 AM EST Telemedicine [facility]INE [address] [place] [address] Ninfa Dietrich PharmD [address] [place] [address] 08/21/2024 10:30 AM EDT Clinical Support [facility] [address] [place] [address] Nazia Martins RN documented as of this encounter Visit Diagnoses Not on filedocumented in this encounter Care Teams Enamel Cracker Relationship Specialty Start Date End Date Anegla Luz MD [address] [place] [address] [phone] PCP - General Family Medicine 10/27/20 Ninfa Dietrich PharmD [address] [place] [address] Pharmacist Internal Medicine 11/10/23 [employer] 12/20/23 documented as of this encounter
--- OUTSIDE RECORDS SUMMARY | 2024-07-22 11:22 | XMS_ITS | Encounter Summary ---
Author Organization [employer] Address 75 [facility] 7t [place] [address] Care Team Providers Care Laser Beam Machine Operator Name Role Phone Angela Luz MD Primary Care Provide r Ninfa Dietrich PharmD Unavailable Reason for Visit * Reason Comments Med Refill Encounter Details Date Type Department Care Team ([facility] Contact Info) Description 06/30/2022 Refill [facility] 505 [place] [address] Balwinder Kumar MD 230 [place] [address] Social History Tobacco Use Types Packs/Day Years [...] Upcoming Encounters Date Type Department Care Team ([facility] Contact Info) Description 07/23/2024 9:00 AM EST Telemedicine [address] [address] Ninfa Dietrich PharmD [address] [place] [address] 08/21/2024 10:30 AM EDT Clinical Support [address] [address] Nazia Martins RN documented as of this encounter Visit Diagnoses Not on filedocumented in this encounter Care Teams Laser Beam Machine Operator Relationship Specialty Start Date End Date Angela Luz MD [address] [place] [address] PCP - General Family Medicine 10/27/20 Ninfa Dietrich PharmD [address] [place] [address] Pharmacist Internal Medicine 11/10/23 [employer] 12/20/23 documented as of this encounter
--- OUTSIDE RECORDS SUMMARY | 2024-07-22 11:22 | XMS_ITS | Encounter Summary ---
Author Organization [employer] Address 75 [facility] 7t [place] [address] Care Team Providers Care Iap Displays Analyst Name Role Phone Angela Luz MD Primary Care Provide r Ninfa Dietrich PharmD Unavailable [phone] Encounter Details Date Type Department Care Team (Late st Contact Info) Description 08/30/2022 Telephone [facility] MEDICINE 230 [place] [address] Lacie Mtz, DIAMOND 230 [place] [address] Social History Tobacco Use Types Packs/Day Years [...] DM RV. Pt seen 07/[address] Cornell for DM. Will task to team MA's to follow up and schedule as needed. documented in this encounter Plan of Treatment Upcoming Encounters Date Type Department Care Team (Late st Contact Info) Description 07/23/2024 9:00 AM EST Telemedicine [address] [address] Ninfa Dietrich PharmD [address] [place] [address] 08/21/2024 10:30 AM EDT Clinical Support [address] [address] Nazia Martins RN documented as of this encounter Visit Diagnoses Not on filedocumented in this encounter Care Teams Iap Displays Analyst Relationship Specialty Start Date End Date Angela Luz MD [address] [place] [address] PCP - General Family Medicine 10/27/20 Ninfa Dietrich, LauraD [address] [place] [address] Pharmacist Internal Medicine 11/10/23 [employer] 12/20/23 documented as of this encounter
--- OUTSIDE RECORDS SUMMARY | 2024-07-22 11:22 | XMS_ITS | Encounter Summary ---
Author Organization [employer] Address [address] [facility] 7t [place] [address] Care Team Providers Care Unleavened Dough Mixer Name Role Phone Angela Luz MD Primary Care Provide r Ninfa Dietrich PharmD Unavailable Reason for Visit * Reason Comments Med Refill Encounter Details Date Type Department Care Team ([facility] Contact Info) Description 06/30/2022 Refill [facility] CHC MED & PEDS [address] [place] [address] Yunier Mohr MD [address] [place] [address] Seasonal allergic rhinitis, unspecified trigger Social History [...] Upcoming Encounters Date Type Department Care Team ([facility] Contact Info) Description 07/23/2024 9:00 AM EST Telemedicine [address] [address] Ninfa Dietrich PharmD [address] [place] [address] 08/21/2024 10:30 AM EDT Clinical Support [address] [address] Nazia Martins RN documented as of this encounter Visit Diagnoses Diagnosis Seasonal allergic rhinitis, unspecified trigger documented in this encounter Care Teams Unleavened Dough Mixer Relationship Specialty Start Date End Date Angela Luz MD [address] [place] [address] PCP - General Family Medicine 10/27/20 Ninfa Dietrich PharmD [address] [place] [address] Pharmacist Internal Medicine 11/10/23 [employer] 12/20/23 documented as of this encounter
--- OUTSIDE RECORDS SUMMARY | 2024-07-22 11:22 | XMS_ITS ---
Author Organization [facility] [place] [address] Care Team Providers Care Trimmer Tailer Name Role Phone Angela Luz Primary Care Provider Jen vailable Dunia Trevino Unavailable [phone] Marissa Piper Unavailable [phone] REASON FOR VISIT MDS/FA Assessment Encounters Encounter Location Date Provider Diagnosis [facility] [address] [facility] [place] [place] [address] 07/19/2024 Marissa Piper Plan Of Treatment Next Appt Details Provider Name:Dunia Cortes, 09/25/2024 10:30:00 AM, [address] [facility] [place], [address], Progress Notes * Angela MATUTE SDOB :1955 (68 yo F)Acc No.[id number]:07/19/2024 Patient:?Helder MATUTE ??External Provider:?Marissa Piper RN :1955???Age:68 Y???Sex:Female D ate:07/19/2024 Address:[address] [place] [address], [address] , [place], [id number] Pcp:Angela Haley Patient's Default Facility:[facility] Subjective: * Chief Complaints: * ???1. MDS/FA Assessment. * Medical History:?? Objective: * Vitals:? Assessment: Plan: * Treatment: Care Plan: * Problems:? * * The named appointment provid er may or may not be the originator of this progress note, and it is not deemed complete until electronically signed by the appointment provider. Sign off status: Pending * Provider:?Marissa Piper RN Date:? 025 Generated for Stephen ying/Nelda/eTransmitting on:?07/22/2024 10:56 AM EST
--- OUTSIDE RECORDS SUMMARY | 2024-07-22 11:22 | XMS_ITS | Encounter Summary ---
Author Organization [employer] Address [address] [facility] 7t [place] [address] Care Team Providers Care Business Support Coordinator Name Role Phone Angela Luz MD Primary Care Provide r Ninfa Dietrich PharmD Unavailable [phone] Reason for Visit * Reason Onset Date Comments Med Refill 04/03/2023 Encounter Details Date Type Department Care Team (Late st Contact Info) Description 04/03/2023 Refill [facility] MEDICINE 230 [place], [place] [phone] Angela Luz MD 230 [place], [place] [phone] Type 2 diabetes mellitus with other specified complication, unspecified whether fdc insulin use ([facility]) Social History Tobacco Use Types Packs/Day Years [...] 07/23/2024 9:00 AM EST Telemedicine [facility] [address] [place] [address] Ninfa Dietrich PharmD [address] [place] [address] 08/21/2024 10:30 AM EDT Clinical Support [address] [address] Nazia Martins, DIAMOND documented as of this encounter Visit Diagnoses Diagnosis Type 2 diabetes mellitus with other specified complication, unspecified whether fdc insulin use ([facility]) documented in this encounter Care Teams Business Support Coordinator Relationship Specialty Start Date End Date Angela Luz MD [address] [place] [address] PCP - General Family Medicine 10/27/20 Ninfa Dietrich PharmD [address] [place] [address] Pharmacist Internal Medicine 11/10/23 [employer] 12/20/23 documented as of this encounter
--- OUTSIDE RECORDS SUMMARY | 2024-07-22 11:22 | XMS_ITS | Encounter Summary ---
Author Organization [email or web address] Address [address] [facility] [address] 7[address] [place] [address] Care Team Providers Care Frame Opener Name Role Phone Angeal Luz MD Primary Care Provide r Ninfa Dietrich PharmD Unavailable [phone] Reason for Visit * Reason Comments Med Refill Encounter Details Date Type Department Care Team (Late st Contact Info) Description 03/24/2023 Refill [facility] 230 [place], [place] [phone] Angela Luz MD 230 [place], [place] [phone] Cervical spondylosis with radiculopathy Social History Tobacco [...] Description 07/23/2024 9:00 AM EST Telemedicine [facility] MEDICINE [address] [place] [address] Ninfa Dietrich PharmD [address] [place] [address] 08/21/2024 10:30 AM EDT Clinical Support [address] [address] Nazia Martins RN documented as of this encounter Visit Diagnoses Diagnosis Cervical spondylosis with radiculopathy Cervical spondylosis with myelopathy documented in this encounter Care Teams Frame Opener Relationship Specialty Start Date End Date Angela Luz MD [address] [place] [address] PCP - General Family Medicine 10/27/20 Ninfa Dietrich, LauraD [address] [place] [address] Pharmacist Internal Medicine 11/10/23 [employer] 12/20/23 documented as of this encounter
--- OUTSIDE RECORDS SUMMARY | 2024-07-22 11:22 | XMS_ITS | Encounter Summary ---
Author Organization [employer] Address [address] [facility] [place] [place] [address] [place] [address] Care Team Providers Care Cement Mason Highways And Streets Name Role Phone Angela Luz MD Primary Care Provide r Ninfa Dietrich PharmD Unavailable Reason for Visit * Reason Comments Med Refill Encounter Details Date Type Department Care Team (Late st Contact Info) Description 09/27/2023 Refill [facility] CHC MED & PEDS [address] [place], [place] [phone] Angela Luz MD 230 [place], [place] [phone] Seasonal allergic rhinitis, unspecified trigger; Other chronic [...] Info) Description 07/23/2024 9:00 AM EST Telemedicine [address] [address] Ninfa Dietrich PharmD [address] [place] [address] 08/21/2024 10:30 AM EDT Clinical Support [address] [address] Nazia Martins RN documented as of this [...] in this encounter Care Teams [employer] Relationship Specialty Start Date End Date Angela Luz MD [address] [place] [address] PCP - General Family Medicine 10/27/20 Ninfa Dietrich PharmD 230 [place] [address] Pharmacist Internal Medicine 11/10/23 [employer] 12/20/23 documented as of this encounter
--- OUTSIDE RECORDS SUMMARY | 2024-07-22 11:22 | XMS_ITS | Encounter Summary ---
Author Organization [employer] Address 75 [facility] 7t [place] [address] Care Team Providers Care Pharmacy Benefit Manager Name Role Phone Angela Luz MD Primary Care Provide r Ninfa Dietrich PharmD Unavailable Reason for Visit * Reason Comments Med Refill Encounter Details Date Type Department Care Team (Late Contact Info) Description 09/13/[address] [facility] MEDICINE 230 [place] [address] Angela Luz MD 230 [place], [place] [phone] Other chronic pain Social History Tobacco Use [...] 9:00 AM EST Telemedicine [facility] MED[facility]INE 230 [place], [place] [phone] Ninfa Dietrich, PharmD 230 [place] [address] 08/21/2024 10:30 AM EDT Clinical Support [facility] MED[facility] [address] [place] [address] Nazia Martins RN documented as of this encounter Visit Diagnoses Diagnosis Other chronic pain documented in this encounter Care Teams Pharmacy Benefit Manager Relationship Specialty Start Date End Date Angela Luz MD [address] [place] [address] PCP - General Family Medicine 10/27/20 Ninfa Dietrich PharmD [address] [place] [address] Pharmacist Internal Medicine 11/10/23 [employer] 12/20/23 documented as of this encounter
--- OUTSIDE RECORDS SUMMARY | 2024-07-22 11:22 | XMS_ITS | Encounter Summary ---
Author Organization [employer] Address [address] [facility] [address] [place] [address] Care Team Providers Care Basket Assembler Name Role Phone Angela Luz MD Primary Care Provide r Ninfa Dietrich PharmD Unavailable [phone] Reason for Visit * Reason Onset Date Comments Call Back Request 01/24/2024 Encounter Details Date Type Department Care Team ([facility] st Contact Info) Description 01/24/2024 Telephone [facility] MEDICINE 230 [place], [place] [phone] Angela Luz MD 230 [place], [place] [phone] Call Back Request Social History Tobacco Use [...] EDT Tc from Angela the [facility] at [employer] requesting a calll back in regards to a sliding scale that was suppose to be faxed to [phone] please call Angela at [phone] documented in this encounter Plan of Treatment Upcoming Encounters Date Type Department Care Team (Late st Contact Info) Description 07/23/2024 9:00 AM EST Telemedicine [facility] MEDICINE [address] [place] [address] Ninfa Dietrich PharmD [address] [place] [address] 08/21/2024 10:30 AM EDT Clinical Support [facility] [address] [place] [address] Nazia Martins RN documented as of this [...] on filedocumented in this encounter Care Teams Basket Assembler Relationship Specialty Start Date End Date Angela Luz MD 230 [place] [address] PCP - General Family Medicine 10/27/20 Ninfa Dietrich, Shadia [address] [place] [address] Pharmacist Internal Medicine 11/10/23 [employer] 12/20/23 documented as of this encounter
--- OUTSIDE RECORDS SUMMARY | 2024-07-22 11:22 | XMS_ITS | Encounter Summary ---
Author Organization [employer] Address [address] [facility] 7t [place] [address] Care Team Providers Care Solar Designer/Installer Name Role Phone Angela Luz MD Primary Care Provide r Ninfa Dietrich PharmD Unavailable Reason for Visit * Reason Onset Date Comments Med Refill 11/11/2022 Encounter Details Date Type Department Care Team (Late st Contact Info) Description 11/11/2022 Refill [facility] MEDICINE 230 [place], [place] [phone] Angela Luz MD 230 [place], [place] [phone] Other chronic pain Social History Tobacco Use [...] Info) Description 07/23/2024 9:00 AM EST Telemedicine [address] [address] Ninfa Dietrich PharmD [address] [place] [address] 08/21/2024 10:30 AM EDT Clinical Support [address] [address] Nazia Martins RN documented as of this encounter Visit Diagnoses Diagnosis Other chronic pain documented in this encounter Care Teams Solar Designer/Installer Relationship Specialty Start Date End Date Angela Luz MD [address] [place] [address] PCP - General Family Medicine 10/27/20 Ninfa Dietrich PharmD [address] [place] [address] Pharmacist Internal Medicine 11/10/23 [employer] 12/20/23 documented as of this encounter
--- OUTSIDE RECORDS SUMMARY | 2024-07-22 11:22 | XMS_ITS | Encounter Summary ---
Author Organization [employer] Address [address] [facility] [address]t [place] [address] Care Team Providers Care Fire Support Specialist Name Role Phone Angela Luz MD Primary Care Provide r Ninfa Dietrich PharmD Unavailable [phone] Reason for Visit * Reason Comments Med Refill Encounter Details Date Type Department Care Team (Late st Contact Info) Description 09/06/2023 Refill [facility] MEDICINE 230 [place], [place] [phone] Angela Luz MD 230 [place], [place] [phone] Type 2 diabetes mellitus with other specified complication, unspecified whether intermediate insulin use ([facility]) Social History Tobacco Use Types [...] Info) Description 07/23/2024 9:00 AM EST Telemedicine [address] [address] Ninfa Dietrich PharmD [address] [place] [address] 08/21/2024 10:30 AM EDT Clinical Support [address] [address] Nazia Martins, DIAMOND documented as of this [...] mellitus with other specified complication, unspecified whether terminal operations supervisor insulin use (CMS/HCC) documented in this encounter Care Teams Fire Support Specialist Relationship Specialty Start Date End Date Angela Luz MD [address] [place] [address] PCP - General Family Medicine 10/27/20 Ninfa Dietrich PharmD [address] [place] [address] Pharmacist Internal Medicine 11/10/23 [employer] 12/20/23 documented as of this encounter
--- OUTSIDE RECORDS SUMMARY | 2024-07-22 11:22 | XMS_ITS | Encounter Summary ---
Author Organization [employer] Address 75 [facility] 7t [place] [address] Care Team Providers Care Diamond Cleaver Name Role Phone Angela Luz MD Primary Care Provide r Ninfa Dietrich PharmD Unavailable [phone] Reason for Visit * Reason Onset Date Comments Med Refill 12/04/2023 Encounter Details Date Type Department Care Team (Late st Contact Info) Description 12/04/2023 Refill [facility] MEDICINE 230 [place], [place] [phone] Angela Luz MD 230 [place], [place] [phone] Other chronic pain Social History Tobacco Use [...] Info) Description 07/23/2024 9:00 AM EST Telemedicine [facility] MEDICINE [address] [place] [address] Ninfa Dietrich PharmD [address] [place] [address] 08/21/2024 10:30 AM EDT Clinical Support [address] [address] Nazia Martins RN documented as of this [...] pain documented in this encounter Care Teams Diamond Cleaver Relationship Specialty Start Date End Date Angela Luz MD [address] [place] [address] PCP - General Family Medicine 10/27/20 Ninfa Dietrich PharmD [address] [place] [address], [place] [address] Pharmacist Internal Medicine 11/10/23 [employer] 12/20/23 documented as of this encounter
--- OUTSIDE RECORDS SUMMARY | 2024-07-22 11:22 | XMS_ITS | Clinical Summary ---
Author Organization [facility] Address [address] [place] [address] Phone Care Team Providers Care Jewelry Bench Worker Name Role Phone Angela Luz MD [...] Due COVID-19 (Pfizer/Comirnaty) 12yo and older 06/28/2023 [employer] SARS-CoV-2 COVID-19, mRNA, LNP-S, preservative free 06/10/2022,10/07/2021,03/02/2021,2020,07/02/2020 [...] 2 diabetes mellitus wit h diabetic neuropathy ([facility]/HCC) DX:Type 2 diabetes mellitus with diabetic neuropathy (HCC) Heel pain DX:Heel pain Venous insufficiency DX:Venous i nsufficiency HTN, goal below 140/80 DX:HTN, g oal below 140/80 Vitamin B12 deficiency anemia DX :Vitamin B12 deficiency anemia Allergic rhinitis DX:Allergic rh initis Solitary pulmonary nodule DX:Alisa itary pulmonary nodule Nonproliferative diabetic re tinopathy associated with type 2 diabetes mellitus ([facility]/HCC) DX:Nonproliferative diabetic retinopathy associated with type 2 diabetes mellitus ([facility]) Mild obstructive sleep apnea DX: Mild obstructive sleep apnea RLS (restless legs syndrome) DX: RLS (restless legs syndrome) Anemia DX:Anemia PAD (peripheral artery disease) ([facility]) DX:PAD (peripheral artery disease) ([facility]) Hyperlipidemia DX:Hyperlipidemi a Essential hypertension, benign D X:Essential hypertension, benign Glaucoma DX:Glaucoma DM (diabetes mellitus) type II controlled, neurological manifestation ([facility]) DX:DM (diabetes m ellitus) type II controlled, neurological manifestation ([facility]) Breast cancer ([facility]) Social History Tobacco Use Types Packs/Day Years [...] Description 11/25/2024 9:00 AM EDT Office Visit [facility] Hematology Oncology [address] [place] [phone] Nabeel March MD [address] [place] [address] Health Maintenance Due Date Last Done Comments [...] Signed Date: 04/19/2024 14:13 ET Workstation ID: [id number] Transcribed By: Self Edit Transcribed Date: 04/19/2024 [...] Tomosynthesis Computer-aided detection was employed with the [employer] AI 3-D. TISSUE DENSITY: The breasts are [...] Signed Date: 04/19/2024 14:13 ET Workstation ID: [id number] Transcribed By: Self Edit Transcribed Date: 04/19/2024 [...] probability of hip fracture of 4.0%. Code 77928 -------- FINAL REPORT -------- Dictated By: Joby Brand Dictated Date: 04/19/2024 09:53 ET Assigned Physician: Joby Brand Reviewed and Electronically Signed By: Joby Brand Signed Date: 04/19/2024 09:54 ET Workstation ID: [id number] Transcribed By: Self Edit Transcribed Date: 04/19/2024 [...] density of the femurs bilaterally is 0.907 gm/db9relbb is 90% of that of young normals [...] probability of hip fracture of 4.0%. Code 65469 -------- FINAL REPORT -------- Dictated By: Joby Brand Dictated Date: 04/19/2024 09:53 ET Assigned Physician: Joby Brand Reviewed and Electronically Signed By: Joby Brand Signed Date: 04/19/2024 09:54 ET Workstation ID: [id number] Transcribed By: Self Edit Transcribed Date: 04/19/2024 09:53 ET us Nabeel March MD IM DXA PROCEDURES Final Res ult * Lipid panel (05/23/2023) [facility] Triglycerides 0 mg/dL Comment:No interpretation Cholesterol 0 mg/dL Comment:No interpretation HDL 0 mg/dL Comment:No interpretation LDL Cholesterol 0 mg/dL Comment:No interpretation Blood Venous blood specimen / Unknown Result [facility] Provider LAB BLOOD ORDERABLES Ruthy l Result * Urine Albumin Creatinine Ratio (10/07/2022) Pathologist [facility] Urine Albumin Creatinine Ratio Abstracted Result [facility] Provider HEALTH MAINTENANCE Final Result * Annual BMP Blood Test (01/13/2022) [facility] Annual BMP Blood Test Abstracted Result [facility] HEALTH MAINTENANCE Final Result * Hepatitis C Screening (11/17/2021) [facility] Hepatitis C Screening Abstracted Result [facility] HEALTH MAINTENANCE Final Result * Hemoglobin A1c (03/29/2021) [facility] Hemoglobin A1C 0.0 % Comment:No interpretation Blood Venous blood specimen / Unknown Result [facility] LAB BLOOD ORDERABLES Ruthy l Result from Last 3 Months or Most Recently Relevant to Health Maintenance Insurance [facility] MEDICARE Member Subscriber Plan / Payer (Ef fective 2023-Present) Name:Angela Dominguez Relation to Subscriber:Self Name:Angela Dominguez Payer ID:[id number] Group ID:[id number] Type:Not on file Address: [place] [address] [address] [address] Care Teams Jewelry Bench Worker Relationship Specialty Start Date End Date Angela Luz MD 230 [facility] [address] [place] [address] PCP - General Internal Medicine 01/28/21
--- OUTSIDE RECORDS SUMMARY | 2024-07-22 11:22 | XMS_ITS | Encounter Summary ---
Author Organization [employer] Address [address] [facility] [address] 7t [place] [address] Care Team Providers Care Institutional Nutrition Consultant Name Role Phone Angela Luz MD Primary Care Provide r Ninfa Dietrich PharmD Unavailable [phone] Reason for Visit * Reason Onset Date Comments Med Refill 05/30/2023 Encounter Details Date Type Department Care Team (Late st Contact Info) Description 05/30/2023 Refill [facility] CHC MED & PEDS [address] [place], [place] [phone] Angela Luz MD 230 [place], [place] [phone] Primary hypertension Social History Tobacco Use Types [...] Info) Description 07/23/2024 9:00 AM EST Telemedicine [facility] MEDICINE [address] [place] [address] Ninfa Dietrich PharmD [address] [place] [address] 08/21/2024 10:30 AM EDT Clinical Support [address] [address] Nazia Martins RN documented as of this encounter Visit Diagnoses Diagnosis Primary hypertension Unspecified essential hypertension documented in this encounter Care Teams Institutional Nutrition Consultant Relationship Specialty Start Date End Date Angela Luz MD [address] [place] [address] PCP - General Family Medicine 10/27/20 Ninfa Dietrich PharmD [address] [place] [address] [phone] Pharmacist Internal Medicine 11/10/23 [employer] 12/20/23 documented as of this encounter
--- OUTSIDE RECORDS SUMMARY | 2024-07-22 11:22 | XMS_ITS | Encounter Summary ---
Author Organization [employer] Address [address] [facility] [address] 7t [place] [address] Care Team Providers Care Vp Mobile Products Name Role Phone Angela Luz MD Primary Care Provide r Ninfa Dietrich PharmD Unavailable [phone] Reason for Visit * Reason Onset Date Comments Shade 03/28/2023 Encounter Details Date Type Department Care Team ([facility] st Contact Info) Description 03/28/2023 Telephone [facility] ADULT DENTAL [address] [place] [address] Percy Dennison, DMD [address] [place], [place] [phone] Shade Social History Tobacco Use Types Packs/Day [...] from [employer] looking for shade of denture. [phone]. Pls contact lab documented in this encounter Plan of Treatment Upcoming Encounters Date Type Department Care Team (Late st Contact Info) Description 07/23/2024 9:00 AM EST Telemedicine [facility] MEDICINE [address] [place] [address] Ninfa Dietrich PharmD [address] [place] [address] 08/21/2024 10:30 AM EDT Clinical Support [facility] MEDICINE [address] [place] [address] Nazia Martins RN documented as of this encounter Visit Diagnoses Not on filedocumented in this encounter Care Teams Vp Mobile Products Relationship Specialty Start Date End Date Angela Luz MD [address] [place] [address] [phone] PCP - General Family Medicine 10/27/20 Ninfa Dietrich PharmD [address] [place] [address] Pharmacist Internal Medicine 11/10/23 [employer] 12/20/23 documented as of this encounter
--- OUTSIDE RECORDS SUMMARY | 2024-07-22 11:22 | XMS_ITS | Encounter Summary ---
Author Organization [employer] Address [address] [place] [address] Care Team Providers Care Sales Analyst Name Role Phone Angela Luz MD Primary Care Provide r Ninfa Dietrich PharmD Unavailable Reason for Visit * Reason Comments Med Refill Encounter Details Date Type Department Care Team (Late st Contact Info) Description 02/15/2024 Refill [facility] MED & PEDS [address] [place], [place] [phone] Angela Luz MD [address] [place], [place] [phone] Seasonal allergic rhinitis, unspecified trigger Social History [...] EST Telemedicine [facility] MEDICINE [address] [place] [phone] Ninfa Dietrich PharmD [address] [place] [address] 08/21/2024 10:30 AM EDT Clinical Support [address] [address] Nazia Martins RN documented as of this [...] trigger documented in this encounter Care Teams Sales Analyst Relationship Specialty Start Date End Date Angela Luz MD [address] [place] [phone] PCP - General Family Medicine 10/27/20 Ninfa Dietrich, LauraD [address] [place] [address] Pharmacist Internal Medicine 11/10/23 [employer] 12/20/23 documented as of this encounter
--- OUTSIDE RECORDS SUMMARY | 2024-07-22 11:22 | XMS_ITS | Encounter Summary ---
Author Organization [employer] Address [address] [facility] 7t [place] [address] Care Team Providers Care Payroll And Benefits Coordinator Name Role Phone Angela Luz MD Primary Care Provide r Ninfa Dietrich PharmD Unavailable [phone] Reason for Visit * Reason Onset Date Comments Med Refill 05/30/2023 Encounter Details Date Type Department Care Team (Late st Contact Info) Description 05/30/2023 Refill [facility] MEDICINE [address] [place], [place] [phone] Angela Luz MD [address] [place], [place] [phone] Type 2 diabetes mellitus with other specified complication, unspecified whether group home insulin use (CMS/HCC); Type 2 diabetes mellitus [...] Info) Description 07/23/2024 9:00 AM EST Telemedicine [address] [address] Ninfa Dietrich PharmD [address] [place] [address] 08/21/2024 10:30 AM EDT Clinical Support [address] [address] Nazia Martins RN documented as of this encounter Visit Diagnoses Diagnosis Type 2 diabetes mellitus with other specified complication, unspecified whether group home insulin use (CMS/HCC) Type 2 diabetes mellitus with stage 3 chronic kidney disease, with long-term current use of insulin, unspecified whether stage 3a or 3b CKD (CMS/HCC) Other chronic pain documented in this encounter Care Teams Payroll And Benefits Coordinator Relationship Specialty Start Date End Date Angela Luz MD [address] [place] [phone] PCP - General Family Medicine 10/27/20 Ninfa Dietrich PharmD [address] [place] [address] Pharmacist Internal Medicine 11/10/23 [employer] 12/20/23 documented as of this encounter
--- OUTSIDE RECORDS SUMMARY | 2024-07-22 11:22 | XMS_ITS | Encounter Summary ---
Author Organization [employer] Address [address] 7[address] [place] [address] Care Team Providers Care Student Truck Driver Name Role Phone Angela Luz MD Primary Care Provide r Ninfa Dietrich PharmD Unavailable [phone] Reason for Visit * Reason Onset Date Comments Med Refill 05/30/2023 Encounter Details Date Type Department Care Team (Late st Contact Info) Description 05/30/2023 Refill [facility] CH[facility] MED & PEDS [address] [place], [place] [phone] Balwinder Kumar MD [address] [place], [place] [phone] Seasonal allergic rhinitis, unspecified trigger Social History [...] 07/23/2024 9:00 AM EST Telemedicine [facility] MEDICINE [address] [place] [address] Ninfa Dietrich PharmD [address] [place] [phone] 08/21/2024 10:30 AM EDT Clinical Support [address] [address] Nazia Martins RN documented as of this encounter Visit Diagnoses Diagnosis Seasonal allergic rhinitis, unspecified trigger documented in this encounter Care Teams Student Truck Driver Relationship Specialty Start Date End Date Angela Luz MD [address] [place] [phone] PCP - General Family Medicine 10/27/20 Ninfa Dietrich PharmD [address] [place] [phone] Pharmacist Internal Medicine 11/10/23 En[employer] 12/20/23 documented as of this encounter
--- OUTSIDE RECORDS SUMMARY | 2024-07-22 11:22 | XMS_ITS ---
Author Organization [facility] Address [address] [place] [address] Care Team Providers Care Quality Head Name Role Phone Angela Luz Primary Care Provider Jen vailable Dunia Trevino Unavailable [phone] Christie Preciado Unavailable [phone] Allergies Allergen (clinical drug ingredient) Drug/Non Drug Allergy documented on EMR Reaction Allergy Type Onset Date Status Adhesive rash Allergy Active Latex Latex Unknown Allergy Active tramadol Tramadol lip swelling Drug Allergy Acti ve REASON FOR VISIT MDS assessment Medications Medication SIG (Take, Route, Frequency, Duration) Notes Start Date End Date Status Movantik 12.5 MG 1 tablet in the morn ing Orally Once a day Active Ozempic (0.25 or 0.5 MG/DOSE) 2 MG/3ML as directed Subcutaneous Active Tresiba FlexTouch 200 UNIT/ML 42 in AM 48 in PM Subcutaneous Daily Active Calcitriol 0.25 MCG 1 capsule Orally michelle ry other day in morning 02/09/2024 Active Glucose 15 GM/33GM as directed Orally Active Clotrimazole Anti-Fungal 1 % 1 application Externally Twice a day Active Baqsimi Two Pack 3 MG/DOSE as directed Nasally Not-Taki ng Albuterol Sulfate HFA 108 (90 Base) MCG/ACT 1 puff as needed Inhalation every 4 hrs Active Albuterol Sulfate (2.5 MG/3ML) 0.083% 3 mL as needed Inhalation Three times a day Active NovoLOG FlexPen 100 UNIT/ML Per sliding scale - 30-40 units as directed Subcutaneous 3 times a day with meals tid 06/29/2021 Active Pregabalin 75 MG 1 capsule Orally Twi ce a day Active Senna 8.6 MG 2 tablets at bedtime as needed Orally Once a day Active Triamcinolone Acetonide 0.1 % 1 application Externally Twice a day Active Trulance 3 MG 1 tablet Orally Once a day Active Ursodiol 500 MG 1 tablet Orally Twic e a day Active Sertraline HCl 100 MG 1 tablet Orally On ce a day Active Trelegy Ellipta 200-62.5-25 MCG/INH 1 puff Inhalation Once a day Active Torsemide 20 MG 1 tablet Orally Twic e daily in the AM and PM for 10 days Active Vitamin C 500 MG 1 CAP Orally daily Active Ventolin HFA 108 (90 Base) MCG/ACT 1 puff as needed Inhalation every 4 hrs Active oxyCODONE-Acetaminophen 5-325 MG 1 tablet as needed Orally every 6 hrs Active Montelukast Sodium 10 MG 1 tablet Orally Once a day Active Mirtazapine 15 MG 1 tablet at bedtime Orally Once a day Active Losartan Potassium 25 MG 1 tablet Orally Once a day Active Farxiga 10 MG 1 tablet Orally Once a day Active Aspirin Adult Low Dose 81 MG 1 tablet Orally Once a day Active Atorvastatin Calcium 40 MG 1 tablet Orally Once a day Active Esomeprazole Magnesium 20 MG 1 capsule Orally Once a day Active Doxepin HCl 10 MG 1 capsule at bedtime as needed Orally Once a day Active Docusate Sodium 100 MG 1 capsule Orally TWICE A DAY Active amLODIPine Besylate 10 MG 1 tablet Orall y Once a day Active Anastrozole 1 MG 1 tablet Orally Once a day Active Encounters Encounter Location Date Provider Diagnosis [facility] (Closed) [address] [place] [address] 07/19/2024 Christie Preciado Breast cancer, right breast C50.911 ; 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.22 ; Type 2 diabetes mellitus with mild nonproliferative diabetic retinopathy without macular edema, left eye E11.3292 ; Type 2 diabetes mellitus with moderate nonproliferative diabetic retinopathy with macular edema, right eye E11.3311 ; Type 2 diabetes mellitus with moderate nonproliferative diabetic retinopathy without macular edema, right eye E11.3391 ; Type 2 diabetes mellitus with diabetic cataract, unspecified whether mcfp insulin use E11.36 ; Type 2 diabetes mellitus with hypoglycemia without coma E11.649 ; Type 2 diabetes mellitus with hyperglycemia E11.65 ; Overweight E66.3 ; Mixed hyperlipidemia E78.2 ; Major depressive disorder, recurrent episode, moderate degree F33.1 ; JENNIFER (generalized anxiety disorder) F41.1 ; ROLAN on CPAP G47.33 ; Unqualified visual loss, left eye, normal vision right eye H54.62 ; Hypertensive heart and chronic kidney disease with heart failure and stage 1 through stage 4 chronic kidney disease, or unspecified chronic kidney disease I13.0 ; Chronic heart failure with preserved ejection fraction I50.32 ; Moderate persistent asthma without complication J45.40 ; Gastroesophageal reflux disease, unspecified whether esophagitis present K21.9 ; Drug induced constipation K59.03 ; Osteoarthritis of multiple joints M15.9 ; Osteoporosis M81.0 ; Chronic kidney disease, stage 4 (severe) N18.4 ; BMI 27.0-27.9,adult Z68.27 ; remote computer terminal operator (current) use of insulin Z79.4 ; remote computer terminal operator (current) use of aspirin Z79.82 ; senior care current use of oral hypoglycemic drug Z79.84 ; Long-term current use of injectable noninsulin antidiabetic medication Z79.85 ; remote computer terminal operator (current) use of opiate analgesic Z79.891 and S/P cardiac pacemaker procedure Z95.0 Assessments Encounter Date Diagnosis (ICD Code) Assessment Notes Treatment Notes Treatment Clinical Notes Section Notes 07/19/2024 Breast cancer, right breast (ICD-10 - C50.911) 07/19/2024 Type 2 diabetes mellitus with diabetic chronic kidney disease (ICD-10 - E11.22) Recommended by CDI 07/19/2024 Type 2 diabetes mellitus with mild nonproliferative diabetic retinopathy without macular edema, left eye (ICD-10 - E11.3292) 07/19/2024 Type 2 diabetes mellitus with moderate nonproliferative diabetic retinopathy with macular edema, right eye (ICD-10 - E11.3311) 07/19/2024 Type 2 diabetes mellitus with moderate nonproliferative diabetic retinopathy without macular edema, right eye (ICD-10 - E11.3391) 07/19/2024 Type 2 diabetes mellitus with diabetic cataract, unspecified whether manager terminal insulin use (ICD-10 - E11.36) 07/19/2024 Type 2 diabetes mellitus with hypoglycemia without coma (ICD-10 - E11.649) 07/19/2024 Type 2 diabetes mellitus with hyperglycemia (ICD-10 - E11.65) 07/19/2024 Overweight (ICD-10 - E66.3) 07/19/2024 Mixed hyperlipidemia (ICD-10 - E78.2) 07/19/2024 Major depressive disorder, recurrent episode, moderate degree (ICD-10 - F33.1) 07/19/2024 JENNIFER (generalized anxiety disorder) (ICD-10 - F41.1) 07/19/2024 ROLAN on CPAP (ICD-10 - G47.33) 07/19/2024 Unqualified visual loss, left eye, normal vision right eye (ICD-10 - H54.62) Recommended by [facility] 07/19/2024 Hypertensive heart and chronic kidney disease with heart failure and stage 1 through stage 4 chronic kidney disease, or unspecified chronic kidney disease (ICD-10 - I13.0) 07/19/2024 Chronic heart failure with preserved ejection fraction (ICD-10 - I50.32) 07/19/2024 Moderate persistent asthma without complication (ICD-10 - J45.40) 07/19/2024 Gastroesophageal reflux disease, unspecified whether esophagitis present (ICD-10 - K21.9) 07/19/2024 Drug induced constipation (ICD-10 - K59.03) Recommended by [facility] 07/19/2024 Osteoarthritis of multiple joints (ICD-10 - M15.9) 07/19/2024 Osteoporosis (ICD-10 - M81.0) 07/19/2024 Chronic kidney disease, stage 4 (severe) (ICD-10 - N18.4) 07/19/2024 BMI 27.0-27.9,adult (ICD-10 - Z68.27) 07/19/2024 remote computer terminal operator (current) use of insulin (ICD-10 - Z79.4) 07/19/2024 senior care (current) use of aspirin (ICD-10 - Z79.82) 07/19/2024 senior care current use of oral hypoglycemic drug (ICD-10 - Z79.84) 07/19/2024 Long-term current use of injectable noninsulin antidiabetic medication (ICD-10 - Z79.85) 07/19/2024 senior care (current) use of opiate analgesic (ICD-10 - Z79.891) 07/19/2024 S/P cardiac pacemaker procedure (ICD-10 - Z95.0) Plan Of Treatment Next Appt Details Provider Name:Dunia Richard mario, 09/25/2024 10:30:00 AM, [address], [place], [address], Progress Notes * MIO COMBS Angela SDOB :1955 (68 yo F)Acc No.[id number]:07/19/2024 Patient:?MIO COMBSHelder ??External Provider:?Christie Preciado RN, [facility]1955???Age:68 Y???Sex:Female D ate:07/19/2024 Address:[address] [place], [place] [phone] Pcp:Angela Haley Patient's Default Facility:[facility] Subjective: * Chief Complaints: * ???MDS assessment * HPI: ???Depression Screening:?PHQ-9?Little interest or pleasure in doing things?Not at all ?Feeling down, depressed, or hopeless?Not at all ?Trouble falling or staying asleep, or sleeping too much?Not at all ?Feeling tired or having little energy?Not at all ?Poor appetite or overeating?Not at all ?Feeling bad about yourself or that you are a failure, or have let yourself or your family down?Not at all ?Trouble concentrating on things, such as reading the newspaper or watching television?Not at all ?Moving or speaking so slowly that other people could have noticed; or the opposite, being so fidgety or restless that you have been moving around a lot more than usual?Not at all ?Thoughts that you would be better off or of hurting yourself in some way?Not at all ?Total Score?0 ???COVID-19 Screening (Questions Revised 08/15/2019):?COVID-19 Screening?Member or any household member has any new or worsening breathing problems:?No ?Member or any household member has a fever or fatigue/myalgia:?No ?Member or any household member has been in close contact with anyone diagnosed with COVID19:?No ?Member or any household member traveled abroad or aey-ne-jmdso or been on a cruise ship in the past 14 days:?No * Medical History:?? * Surgical History:? * Hospitalization/Major Diagno stic Procedure:? * Medications:?TakingamLODIPin e Besylate 10 MG Tablet 1 tablet Orally Once a day Anastrozole 1 MG Tablet 1 tablet Orally Once a day Aspirin Adult Low Dose 81 MG Tablet Delayed Release 1 tablet Orally Once a day Atorvastatin Calcium 40 MG Tablet 1 tablet Orally Once a day Docusate Sodium 100 MG Capsule 1 capsule Orally TWICE A DAY Doxepin HCl 10 MG Capsule 1 capsule at bedtime as needed Orally Once a day Esomeprazole Magnesium 20 MG Capsule Delayed Release 1 capsule Orally Once a day Farxiga 10 MG Tablet 1 tablet Orally Once a day Losartan Potassium 25 MG Tablet 1 tablet Orally Once a day Mirtazapine 15 MG Tablet 1 tablet at bedtime Orally Once a day Montelukast Sodium 10 MG Tablet 1 tablet Orally Once a day oxyCODONE-Acetaminophen 5-325 MG Tablet 1 tablet as needed Orally every 6 hrs Sertraline HCl 100 MG Tablet 1 tablet Orally Once a day Torsemide 20 MG Tablet 1 tablet Orally Twice daily in the AM and PM Trelegy Ellipta 200-62.5-25 MCG/INH Aerosol Powder Breath Activated 1 puff Inhalation Once a day Ventolin HFA 108 (90 Base) MCG/ACT Aerosol Solution 1 puff as needed Inhalation every 4 hrs Vitamin C 500 MG Capsule 1 CAP Orally daily Ursodiol 500 MG Tablet 1 tablet Orally Twice a day Trulance 3 MG Tablet 1 tablet Orally Once a day Triamcinolone Acetonide 0.1 % Lotion 1 application Externally Twice a day Senna 8.6 MG Tablet 2 tablets at bedtime as needed Orally Once a day Pregabalin 75 MG Capsule 1 capsule Orally Twice a day Clotrimazole Anti-Fungal 1 % Cream 1 application Externally Twice a day Albuterol Sulfate HFA 108 (90 Base) MCG/ACT Aerosol Solution 1 puff as needed Inhalation every 4 hrs Albuterol Sulfate (2.5 MG/3ML) 0.083% Nebulization Solution 3 mL as needed Inhalation Three times a day NovoLOG FlexPen 100 UNIT/ML Solution Pen-injector Per sliding scale - 30-40 units as directed Subcutaneous 3 times a day with meals , Notes to Pharmacist: Rigo FlexTouch 200 UNIT/ML Solution Pen-injector 42 in AM 48 in PM Subcutaneous Daily Calcitriol 0.25 MCG Capsule 1 capsule Orally every other day in morning Glucose 15 GM/33GM Gel as directed Orally Movantik 12.5 MG Tablet 1 tablet in the morning Orally Once a day Ozempic (0.25 or 0.5 MG/DOSE) 2 MG/3ML Solution Pen-injector as directed Subcutaneous Taking amLODIPine Besylate 10 MG Tablet 1 tablet Orally Once a day Taking Anastrozole 1 MG Tablet 1 tablet Orally Once a day Taking Aspirin Adult Low Dose 81 MG Tablet Delayed Release 1 tablet Orally Once a day Taking Atorvastatin Calcium 40 MG Tablet 1 tablet Orally Once a day Taking Docusate Sodium 100 MG Capsule 1 capsule Orally TWICE A DAY Taking Doxepin HCl 10 MG Capsule 1 capsule at bedtime as needed Orally Once a day Taking Esomeprazole Magnesium 20 MG Capsule Delayed Release 1 capsule Orally Once a day Taking Farxiga 10 MG Tablet 1 tablet Orally Once a day Taking Losartan Potassium 25 MG Tablet 1 tablet Orally Once a day Taking Mirtazapine 15 MG Tablet 1 tablet at bedtime Orally Once a day Taking Montelukast Sodium 10 MG Tablet 1 tablet Orally Once a day Taking oxyCODONE-Acetaminophen 5-325 MG Tablet 1 tablet as needed Orally every 6 hrs Taking Sertraline HCl 100 MG Tablet 1 tablet Orally Once a day Taking Torsemide 20 MG Tablet 1 tablet Orally Twice daily in the AM and PM Taking Trelegy Ellipta 200-62.5-25 MCG/INH Aerosol Powder Breath Activated 1 puff Inhalation Once a day Taking Ventolin HFA 108 (90 Base) MCG/ACT Aerosol Solution 1 puff as needed Inhalation every 4 hrs Taking Vitamin C 500 MG Capsule 1 CAP Orally daily Taking Ursodiol 500 MG Tablet 1 tablet Orally Twice a day Taking Trulance 3 MG Tablet 1 tablet Orally Once a day Taking Triamcinolone Acetonide 0.1 % Lotion 1 application Externally Twice a day Taking Senna 8.6 MG Tablet 2 tablets at bedtime as needed Orally Once a day Taking Pregabalin 75 MG Capsule 1 capsule Orally Twice a day Taking Clotrimazole Anti- Fungal 1 % Cream 1 application Externally Twice a day Taking Albuterol Sulfate HFA 108 (90 Base) MCG/ACT Aerosol Solution 1 puff as needed Inhalation every 4 hrs Taking Albuterol Sulfate (2.5 MG/3ML) 0.083% Nebulization Solution 3 mL as needed Inhalation Three times a day Taking NovoLOG FlexPen 100 UNIT/ML Solution Pen-injector Per sliding scale - 30-40 units as directed Subcutaneous 3 times a day with meals , Notes to Pharmacist: tidTaking Tresiba FlexTouch 200 UNIT/ML Solution Pen-injector 42 in AM 48 in PM Subcutaneous Daily Taking Calcitriol 0.25 MCG Capsule 1 capsule Orally every other day in morning Taking Glucose 15 GM/33GM Gel as directed Orally Taking Movantik 12.5 MG Tablet 1 tablet in the morning Orally Once a day Taking Ozempic (0.25 or 0.5 MG/DOSE) 2 MG/3ML Solution Pen-injector as directed Subcutaneous Not- TakingBaqsimi Two Pack 3 MG/DOSE Powder as directed Nasally Medication List reviewed and reconciled with the patientNot-Taking Baqsimi Two Pack 3 MG/DOSE Powder as directed Nasally Medication List reviewed and reconciled with the patient * Allergies:?Adhesive: rash - Side EffectsTramadol: lip swelling - AllergyLatexno[Allergies Verified] Objective: * Vitals:? Assessment: * Assessment: 1.?Breast cancer, right jessica st - C50.911 (Primary)???2.?Type 2 diabetes mellitus with diabetic chronic kidney disease - E11???Notes :Recommended by CDI???3.?Type 2 diabetes mellitus with mild nonproliferative diabetic retinopathy without macular edema, left eye - E11.3292???4.?Type 2 diabetes mellitus with moderate nonproliferative diabetic retinopathy with macular edema, right eye - E11.3311?? 5.?Type 2 diabetes mellitus with moderate nonproliferative diabetic retinopathy without macular edema, right eye - E11.3391???6.?Type 2 diabetes mellitus with diabetic cataract, unspecified whether mcfp insulin use - E11.36???7.?Type 2 diabetes mellitus with hypoglycemia without coma - E11.649???8.?Type 2 diabetes mellitus with hyperglycemia - E11.65???9.?Overweight - E66.3???10.?Mixed hyperlipidemia - E78.2???11.?Major depressive disorder, recurrent episode, moderate degree - F33.1???12.?JENNIFER (generalized anxiety disorder) - F41.1???13.?ROLAN on CPAP - G47.33???14.?Unqualified visual loss, left eye, normal vision right eye - H54.62???Notes :Recommended by CDI???15.?Hypertensive heart and chronic kidney disease with heart failure and stage 1 through stage 4 chronic kidney disease, or unspecified chronic kidney disease - I13.0? ?16.?Chronic heart failure with preserved ejection fraction - I50.32???17.?Moderate persistent asthma without complication - J45.40???18.?Gastroesophageal reflux disease, unspecified whether esophagitis present - K21.9???19.?Drug induced constipation - K59.03???Notes :Recommended by CDI???20.?Osteoarthritis of multiple joints - M15.9???21.?Osteoporosis - M81.0???22.?Chronic kidney disease, stage 4 (severe) - N18.4? ?23.?BMI 27.0-27.9,adult - Z68.27???24.?remote computer terminal operator (current) use of insulin - Z79.4???25.?senior care (current) use of aspirin - Z79.82???26.?remote computer terminal operator current use of oral hypoglycemic drug - Z79.84???27.?Long-term current use of injectable noninsulin antidiabetic medication - Z79.85???28.?remote computer terminal operator (current) use of opiate analgesic - Z79.891???29.?S/P cardiac pacemaker procedure - Z95.0??? Plan: * Treatment: * Procedure Codes:? Care Plan: * Problems:? * * Sign off status: Completed true * Provider:?Christie Preciado RN, CCACG W est Date:?07/19/2024 Generated for Printing/Faxing/eTransmitting on:?07/22/2024 11:21 AM EST History and Physical Notes * HPI (History of Present Illness) Category Sub-Category Detail Notes Category Not es Depression Screening PHQ-9 Little inte rest or pleasure in doing things: Not at all Feeling down, depressed, or hopeless: No t at all Trouble falling or staying asleep, or sl eeping too much: Not at all Feeling tired or having little energy: N ot at all Poor appetite or overeating: Not at all Feeling bad about yourself o r that you are a failure, or have let yourself or your family down: Not at all Trouble concentrating on thi ngs, such as reading the newspaper or watching television: Not at all Moving or speaking so slowly that other people could have noticed; or the opposite, being so fidgety or restless that you have been moving around a lot more than usual: Not at all Thoughts that you would be b antoni off or of hurting yourself in some way: Not at all Total Score: 0 COVID-19 Screening (Question s Revised 08/15/2019) COVID-19 Screening Member or any household memb er has any new or worsening breathing problems:: No Member or any household member has a fev er or fatigue/myalgia: : No Member or any household memb er has been in close contact with anyone diagnosed with COVID19: : No Member or any household memb er traveled abroad or oom-cj-yjliu or been on a cruise ship in the past 14 days: : No
--- OUTSIDE RECORDS SUMMARY | 2024-07-22 11:22 | XMS_ITS | Encounter Summary ---
Author Organization [employer] Address 75 [facility] 7t [place] [address] Care Team Providers Care Manufacturing Engineering Intern Name Role Phone Angela Luz MD Primary Care Provide r Ninfa Dietrich PharmD Unavailable Reason for Visit * Reason Comments Med Refill Encounter Details Date Type Department Care Team (Late st Contact Info) Description 10/26/2022 Refill [facility] [address] [place], [place] [phone] Angela Luz MD [address] [place], [place] [phone] Type 2 diabetes mellitus with other specified complication, unspecified whether assisted insulin use ([facility]) Social History Tobacco Use Types Packs/Day [...] Info) Description 07/23/2024 9:00 AM EST Telemedicine [address] [address] Ninfa Dietrich PharmD [address] [place] [address] 08/21/2024 10:30 AM EDT Clinical Support [address] [address] Nazia Martins, DIAMOND documented as of this encounter Visit Diagnoses Diagnosis Type 2 diabetes mellitus with other specified complication, unspecified whether computer terminal operator insulin use ([facility]) documented in this encounter Care Teams Manufacturing Engineering Intern Relationship Specialty Start Date End Date Angela Luz MD [address] [place] [address] PCP - General Family Medicine 10/27/20 Ninfa iDetrich PharmD [address] [place] [address] Pharmacist Internal Medicine 11/10/23 [employer] 12/20/23 documented as of this encounter
--- OUTSIDE RECORDS SUMMARY | 2024-07-22 11:22 | XMS_ITS | Encounter Summary ---
Author Organization [employer] Address 75 [facility] 7t [place] [address] Care Team Providers Care Coal Cutting Machine Operator Name Role Phone Angela Luz MD Primary Care Provide r Ninfa Dietrich PharmD Unavailable [phone]- [phone] Encounter Details Date Type Department Care Team (Late st Contact Info) Description 07/22/2024 Orders Only GENERIC EXTERNAL DATA DEPARTMENT Provider, Generic External Data Social History Tobacco Use Types Packs/Day Years [...] Info) Description 07/23/2024 9:00 AM EST Telemedicine [facility] [address] [place] [address] Ninfa Dietrich PharmD [address] [place] [address] 08/21/2024 10:30 AM EDT Clinical Support [address] [address] Nazia Martins RN documented as of this encounter Goals Goal Patient Goal Type Associated Problems Recent Progress Patient-Stated? Author Blood Pressure < 140/90 Blood Pressure 142/44(2024 10:39 AM EST) No Ady Araujo Hemoglobin A1c < 8 Result Component 6.9( 10:18 AM EST) No Ady Araujo Note: Comorbidities: CHF, CKD, cirrhosis documented as of this encounter Procedures Procedure Name Priority Date/Time Associated Diagnosis Comments CBC WITH AUTO DIFFERENTIAL Routine 07/22/2024 10:21 AM EST PROTHROMBIN TIME-INR Routine 07/22/2024 10:21 AM EST documented in this encounter Results * Prothrombin Time-INR (07/22/2024 10:21 AM EST) Prothrombin Time 12.0 10.9 - 12.4 SEC [facility] INTERNATIONAL NORM RATIO 1.0 0.9 - 1.1 [facility] Comment:INTERNATIONAL NORMAL IZED RATIO (INR) [...] Provider LAB BLOOD ORDERAB LES Final Result [facility] [address] [place] [phone] * (ABNORMAL) CBC auto differential (07/22/2024 10:21 AM EST) White Blood Count 5.2 4.8 - 10.8 X10*3/uL [facility] Red Blood Count 4.45 4.20 - 5.50 X10*6/uL [facility] Hemoglobin 11.7(L) 12.0 - 16.0 g/dl [facility] Hematocrit 35.5(L) 37.0 - 47.0 % [facility] Mean Corpuscular Volume 79.8(L) 80.0 - 98.0 fL [facility] Mean Corpuscular Hemoglobin 26.3(L) 27.0 - 33.0 pg [facility] Mean Corpuscular HGB Conc 33.0 31.0 - 35.0 g/dl [facility] Red Cell Distribution Width 20.4(H) 11.0 - 16.0 % [facility] Platelet Count 141(L) 160 - 400 X10*3/uL [facility] Comment:Test was verified by repeat analysis. Mean Platelet Volume 9.3(L) 9.4 - 12.3 fL [facility] Neutrophils Percent Auto 58.2 45 - 73 % [facility] Imm Gran Pct Auto 0.4 0.0 - 0.4 % [facility] Lymphocytes Percent Auto 27.4 20 - 40 % [facility] Monocytes Percent Auto 7.5 2 - 11 % [facility] Eosinophils Percent Auto 5.7(H) 0 - 4 % [facility] Basophils Percent Auto 0.8 0 - 2 % [facility] NRBC Pct Auto 0.0 0.0 - 0.2 /100WBC [facility] Neutrophils Absolute Auto 3.0 2.0 - 8.3 x10*3/uL [facility] Imm Gran Abs Auto 0.02 0.00 - 0.03 X10*3/uL [facility] Lymphocytes Absolute Auto 1.4 1.2 - 4.9 X10*3/uL [facility] Monocytes Absolute Auto 0.4 0.1 - 1.2 X10*3/uL [facility] Eosinophils Absolute Auto 0.3 0.0 - 0.4 X10*3/uL [facility] Basophils Absolute Auto 0.0 0.0 - 0.2 X10*3/uL [facility] NRBC Abs Auto 0.000 0.0 - 0.012 X10*3/uL [facility] 07/22/2024 10:2 1 AM EST 07/22/2024 10:21 AM EST us Generic External Data Provider LAB BLOOD ORDERAB LES Final Result Performing Organization Address City/State/[facility] Co de Phone Number [facility] [address] [place] [phone] documented in this encounter Visit Diagnoses Not on filedocumented in this encounter Care Teams Coal Cutting Machine Operator Relationship Specialty Start Date End Date Angela Luz MD [address] [place] [address] PCP - General Family Medicine 10/27/20 Ninfa Dietrich, Shadia [address] [place] [address] Pharmacist Internal Medicine 11/10/23 [employer] 12/20/23 documented as of this encounter
[2024-07-22 11:32] LABS: Alanine Aminotransferase 27 U/L (0-31); Alkaline Phosphatase 129 U/L (39-117); Anion Gap 15 (12-20); Aspartate Amino Transferase 37 U/L (5-31); Bilirubin Total 0.5 mg/dL (0.0-1.0); Blood Urea Nitrogen 36 mg/dL (9-16); Calcium 9.6 mg/dL (8.4-10.2); Carbon Dioxide 29 mmol/L (22-29); Chloride 103 mmol/L (96-108); Estimated Glomerular Filt Rate 36; Ferritin 435 ng/mL (10-250); Glucose Random 105 mg/dL (60-115); Potassium 4.6 mmol/L (3.3-5.1); Sodium 142 mmol/L (135-145); Total Protein 8.1 g/dL (6.5-8.0)
== END 2024-07-22 09:01 | disposition home or self-care (01) ==
LOC: HO.LAB 09:00
PROVIDERS: PCP Internal Medicine; Visit Provider Internal Medicine Gastroenterology
DX: D64.9 Anemia, unspecified (principal); R10.13 Epigastric pain; K75.81 Nonalcoholic steatohepatitis (NASH)
CPT/HCPCS: 36415; 80053; 82728; 85025; 85610; 99212

== ENCOUNTER 2024-07-22 09:00 | Outpatient (AMB) | payer OTHER, SELFPAY ==
[2024-07-22 09:24] VITALS: BP 129/67; PULSE 60; BMI 28.1
--- NOTE | 2024-07-22 09:24 | MHC.OFFVIS ---
Vital Signs 07/22/24 09:24 Height 4 ft 9 in Weight 130 lb BMI 28.1 BP 129/67 Blood Pressure Location Lt brachial Position Sitting Pulse 60 Intake Visit Reasons: 4 months f/u Intake Note: Angela presents in the office as a 4 month follow up. CC: She states that she is just here for a follow up - no concerns at this time. Support Services Tech Required: No Allergies tramadol [TRAMADOL] Allergy (Severe, Verified 07/22/24 09:32) THROAT, LIPS SWELLING, latex [LATEX] Allergy (Intermediate, Verified 07/22/24 09:32) RASH HPI HPI 4 months f/u: Details: 68 yr old f with Dm, depression, Pranav, CKD, CHF and neuropathy here for f/u RECAP She was seen by [facility] for assessment of anemia and abn LFT She had EGD, colonoscopy 02/10 with gastritis, esophagitis, polyps, melanosis coli, hemorrhoids and diverticulosis noted, no active bleeding anemia thought to be ACD and due to CKD she had her GB removed about 12 yrs ago path with serrated and adenomatous polyps LABS with stable HGB around 10 g/dl for several readings. AST, ALT, Alk p elevated US 11/2021- with coarse liver architecture and increased elastography consistent with portal hypertension US 05/13-- cirrhosis, no masses or tumour GI series: 06/14 1. Mild esophageal dysmotility 2. Small type I hiatal hernia 3. Mild to moderate gastroesophageal reflux. 4. Possible gastritis liver bx: Chronic hepatitis with moderate inflammation (grade 3), mild steatosis, and stage 3-4 fibrosis/early cirrhosis - US 01/12- small right kidney stone, possibel fatty liver, F0-1 by elastography INTERIM: she has epigastric pain, same as before no issues with swallowing appetite is good taking ursodiol no nausea or vomiting no melena or rectal bleeding got iron infusions after last HGB EXAM: GENERAL: The patient is well developed and nontoxic-obese. VITAL SIGNS:see workflow HEENT: Nonicteric sclerae, PERRLA, EOMI. Oropharynx clear. Moist mucous membranes. Conjunctivae appear well perfused. No thyroid mass. CHEST: Chest wall is nontender. HEART: Regular rate and rhythm without murmurs. LUNGS: Clear to auscultation bilaterally. ABDOMEN: Soft, positive bowel sounds, tender epigastrium, no organomegaly.no flank tenderness SKIN: No rash, no excessive bruising, petechiae, or purpura. NEUROLOGIC: Cranial nerves II-XII intact without motor/sensory deficit. 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 Dyslipidemia Diabetic nephropathy associated with type 2 diabetes mellitus Diabetic retinopathy associated with type 2 diabetes mellitus Obstructive sleep apnea on CPAP Other and unspecified hyperlipidemia Essential hypertension Type 2 diabetes mellitus with unspecified complications GERD (gastroesophageal reflux disease) (~05/18/23) Breast cancer Depression Diabetes mellitus, type 2 Surgical History Hx of cardiac catheterization Hx of colonoscopy History of esophagogastroduodenoscopy (EGD) History of total abdominal hysterectomy History of cholecystectomy History of shoulder surgery History of 3 sections History of permanent cardiac pacemaker placement Family History Father Diabetes Brother Diabetes Sister Diabetes Mother No known problems Social History Household Members: Spouse and Family Housing: Apartment Are you a primary director of health care marketing to a significant other at home: No Do you presently have visiting nurse or other home services: Yes (nurse) Alcohol intake: never Patient Tobacco Use Status: Former Tobacco user Tobacco use type: Cigarette Years Smoked: 12 years e-Cigarette/Vaping Use: Former Use Second Hand Smoke Exposure: No service: No Current occupational status: disabled Sexual orientation: Straight/Heterosexual Physical Exam Vital Signs: Last Vital Signs Pulse 60 07/22/24 09:24 BP 129/67 07/22/24 09:24 BMI result Body Mass Index 28.1 Assessment & Plan Assessment & Plan (1) Anemia: Comment: labs EGD/ colo with anesthesia consult-pulmonary, cardiology clearance Code(s): D64.9 - Anemia, unspecified Category: Medical Plan: as above (2) Epigastric abdominal pain: Code(s): R10.13 - Epigastric pain Category: Medical Plan: as above Orders: Orders Complete Blood Count Auto Diff Today D64.9 - Anemia, unspecified, R10.13 - Epigastric pain Comprehensive Met. Panel Today D64.9 - Anemia, unspecified, K75.81 - Nonalcoholic steatohepatitis (TOMLINSON), R10.13 - Epigastric pain US abdomen milan w elastography Today K74.60 - Unspecified cirrhosis of liver, K75.81 - Nonalcoholic steatohepatitis (TOMLINSON) Ferritin Today D64.9 - Anemia, unspecified, R10.13 - Epigastric pain Prothrombin Time INR Today D64.9 - Anemia, unspecified, R10.13 - Epigastric pain Coding Level of Care Code Est Pt Level 4 (97556) Diagnoses Anemia D64.9 Epigastric abdominal pain R10.13
--- OUTSIDE RECORDS SUMMARY | 2024-07-22 09:38 | XMS_ITS | Encounter Summary ---
Author Organization [employer] Address [address] [facility] [address] [place] [address] Care Team Providers Care Coat Joiner Lockstitch Name Role Phone Angela Luz MD Primary Care Provide r Ninfa Dietrich PharmD Unavailable [phone] Reason for Visit * Reason Onset Date Comments Med Refill 06/28/2023 Encounter Details Date Type Department Care Team (Late st Contact Info) Description 06/28/2023 Refill [facility] [address] [place], [place] [phone] Angela Luz MD [address] [place], [place] [phone] Other chronic pain Social History Tobacco Use Types Packs/Day Years Used Date Smoking Tobacco: Never Passive Smoke Exposure: Never Smokeless Tobacco: Never Alcohol Use Standard Drinks/Week Comments Never 0 (1 standard drink = 0.6 oz pur e alcohol) Housing Stability Answer Date Recorded What is your housing situation today? I have calos carmen 03/07/[address] you li ve. Do you have problems with any of the following? None of the above 03/07/2023 Food Insecurity Answer Date Recorded Within the past 12 months, y ou worried that your food would run out before you got money to buy more: Never True 03/07/2023 Within the past 12 months,th e food you bought just didn't last and you didn't have enough money to get more: Never True Transportation Answer Date Recorded In the past 12 months, has l ack of transportation kept you from medical appts, meetings, work or from getting things needed for daily living? No 03/07/2023 Utilities Answer Date Recorded In the past 12 months, has t he electric, gas, oil or water company threatened to shut off services in your home? No 03/07/2023 Depression Answer Date Recorded Patient Health Questionnaire-2 Score 0 07/21/2022 Comments Unknown Sex and Gender Information Value Date Recorded Sex Assigned at Female 03/21/2022 10:38 AM EDT Legal Sex Female 10:38 AM EDT Gender Identity Female 03/21/2022 10:38 AM EDT Sexual Orientation Straight 03/21/2022 10 :38 AM EDT documented as of this encounter Plan of Treatment Upcoming Encounters Date Type Department Care Team (Late st Contact Info) Description 07/23/2024 9:00 AM EST Telemedicine [facility] [address] [place] [phone] Ninfa Dietrich PharmD [address] [place] [phone] 08/21/2024 10:30 AM EDT Clinical Support [address] [address] Nazia Martins RN documented as of this encounter Visit Diagnoses Diagnosis Other chronic pain documented in this encounter Care Teams Coat Joiner Lockstitch Relationship Specialty Start Date End Date Angela Luz MD [address] [place] [id number] PCP - General Family Medicine 10/27/20 Ninfa Dietrich, PharmD [address] [place] [phone] Pharmacist Internal Medicine 11/10/23 Hotreader 12/20/23 documented as of this encounter
--- OUTSIDE RECORDS SUMMARY | 2024-07-22 09:38 | XMS_ITS | Clinical Summary ---
Author Organization [employer] Address [address] [place] [address] Care Team Providers Care Battery Charger Name Role Phone Angela Luz MD Primary Care Provide r Ninfa Dietrich PharmD Unavailable [phone] Allergies Active Allergy Reactions Criticality Noted Date Comments Latex Dermatitis,Rash Low 06/10/2019 Tramadol Rash,Swelling Low 10/06/2011 Other reaction(s): Lip swelling, Other (see comments) Medications * This document contains information received from the source organization and may not represent a complete record from that organization. anastrozole (Arimidex) 1 MG chemo tablet take 1 tablet by oral route every day Active aspirin 81 MG EC tablet Take 1 tablet by mouth daily. Active atorvastatin (Lipitor) 40 MG tablet Take 1 tablet by mouth daily. Active doxepin (SINEquan) 10 MG capsule Take 1 capsule by mouth if needed at bedtime for sleep. Active dapagliflozin (Farxiga) 10 MG take 1 tablet by oral route every day Active mirtazapine (Remeron) 15 MG tablet Take 1 Tab by mouth at bedtime. Active montelukast (Singulair) 10 MG tablet take 1 tablet by oral route every day in the evening Active torsemide (Demadex) 20 MG tablet Take 20 mg by mouth 2 times daily. Active Fluticasone-Umec lidin-Vilant (Trelegy Ellipta) 200-62.5-25 MCG/ACT aerosol powder inhale 1 puff by inhalation route every day at the same time each day Active albuterol 108 (90 Base) MCG/ACT inhaler inhale 2 puff by inhalation route every 6 hours as needed for wheezing 022 Active plecanatide (Trulance) tablet tablet Take 1 tablet by mouth every day Active ceramides (CeraVe) moisturizing creamIndications :Chronic pruritus Mix with triamcinolone and apply as directed 453 g 1 023 Active albuterol (2.5 MG/3ML) 0.083% nebulizer solutionIndicati ons:Simple chronic bronchitis ([facility]) INHALE 1 AMPULE USING A NEBULIZER THREE TIMES DAILY 180 mL 3 024 Active Movantik 12.5 MG tablet TAKE 1 TABLET BY MOUTH EVERY MORNING ON AN EMPTY STOMACH, no FOOD 1 HOUR AFTER OR 2 TO 3 HOURS BEFORE DOSE 024 Active lactulose (Chronulac) 10 GM/15ML solution TAKE 15 ML BY MOUTH EVERY MORNING FOR 10 DAYS 150 mL 1 024 Active Lancets 33G misc 1 each 2 times daily. Test blood sugar 4 times a day 400 each 11 024 Active triamcinolone (Kenalog) 0.1 % creamIndications :Chronic pruritus MIX WITH cerave CREAM AND APPLY TO THE AFFECTED AREA(S) TWICE DAILY IN THE MORNING AND AT BEDTIME NEEDED FOR PAIN AND SWELLING 80 g 3 024 Active glucose blood (FreeStyle Precision Boris Test) test stripIndications :Type 2 diabetes mellitus with stage 3 chronic kidney disease, with long-term current use of insulin, unspecified whether stage 3a or 3b CKD ([facility]) Use to test blood sugar 3 times daily 100 each 12 024 2024 Active sertraline (Zoloft) 100 MG tablet Take 1 tablet by mouth in the morning. 024 Active glucose (Glutose) 40 % gel oral gelIndications:T ype 2 diabetes mellitus with stage 3 chronic kidney disease, with long-term current use of insulin, unspecified whether stage 3a or 3b CKD ([facility]) Take 15 g by mouth if needed for low blood sugar. 45 g 11 06/28/2 024 Active glucagon (Baqsimi) 3 MG/DOSE nasal powderIndication s:Type 2 diabetes mellitus with hypoglycemia without coma, with long-term current use of insulin ([facility] For severe hypoglycemia, administer 3 mg (1 actuation) into 1 nostril. May repeat dose if there has been no response after 15 minutes 2 each Active predniSONE (Deltasone) 5 MG tablet TAKE 4 TABLETS BY MOUTH DAILY FOR FOURTEEN DAYS, 3 TABLET FOR FOURTEEN DAYS, 2 TABLET FOR FOURTEEN DAYS, THEN 1 TABLET FOR FOURTEEN DAYS Active pen needle 32G x 4 mm miscIndications: Type 2 diabetes mellitus with hypoglycemia without coma, with long-term current use of insulin ([facility] Use for insulin administration three times daily. Use as instructed 100 each 024 2024 Active clotrimazole (Lotrimin) 1 % creamIndications :Type 2 diabetes mellitus with other specified complication, unspecified whether dedicated intermodal truck driver insulin use ([facility]) APPLY TOPICALLY TO AFFECTED AREA(S) AND SURROUNDING AREA(S) TWICE DAILY IN THE MORNING AND IN THE EVENING 30 g Active Continuous Glucose Retort Condenser Attendant (FreeStyle Jeovany 2 [place]) deviceIndication s:Type 2 diabetes mellitus with stage 3 chronic kidney disease, with long-term current use of insulin, unspecified whether stage 3a or 3b CKD ([facility]) USE DIRECTED TO TEST BLOOD SUGAR EVERY 8 HOURS 1 each Active calcitriol (Rocaltrol) 0.25 MCG capsule Take 0.25 mcg by mouth every other day. Active amLODIPine (Norvasc) 10 MG tabletIndication s:Primary hypertension TAKE 1 TABLET BY MOUTH AT BEDTIME 90 tablet 1 Active naloxone (Narcan) 4 mg/0.1 mL nasal sprayIndications :Chronic right shoulder pain Administer 1 spray (4 mg) into affected nostril(s) if needed for opioid reversal. spray 0.1 milliliter by intranasal route in 1 nostril may repeat dose every 2-3 minutes as needed alternating nostrils with each dose 2 each 2 Active diphenhydrAMINE (Banophen) 25 MG capsuleIndicatio ns:Seasonal allergic rhinitis, unspecified trigger TAKE 1 TO 2 CAPSULES BY MOUTH EVERY 4 TO 6 HOURS NEEDED FOR ITCHING 40 capsule 024 Active fluticasone (Flonase) 50 MCG/ACT nasal sprayIndications :Nasal congestion Administer 1-2 sprays into each nostril 1-2x per day as needed for congestion. Shake gently. Before first use, prime pump. After use, clean tip and replace cap. 16 g 024 Active insulin degludec (Tresiba FlexTouch) 200 UNIT/ML injectionIndicat ions:Type 2 diabetes mellitus with stage 3 chronic kidney disease, with long-term current use of insulin, unspecified whether stage 3a or 3b CKD ([facility]) INJECT 44 UNITS SUBCUTANEOUSLY ONCE DAILY 024 Active pregabalin (Lyrica) 75 MG capsuleIndicatio ns:Diabetic polyneuropathy associated with type 2 diabetes mellitus ([facility]) TAKE 1 CAPSULE BY MOUTH TWICE DAILY IN THE MORNING AND IN THE EVENING 60 capsule 1 024 Active insulin aspart (NovoLOG FLEXPEN) 100 UNIT/ML penIndications:T ype 2 diabetes mellitus with stage 3 chronic kidney disease, with long-term current use of insulin, unspecified whether stage 3a or 3b CKD ([facility]) USE DIRECTED THREE TIMES DAILY PER SLIDING SCALE <150mg/dL= 0 units,151-199mg/ dL=4 units,200-249mg/ dL=6 units,250-299mg/ dL=8 units,300-349mg/ dL=10 units,350-399mg/ dL=12 units,>400mg/dL 14 units & call offic 15 mL 3 025 Active losartan (Cozaar) 25 MG tabletIndication s:Primary hypertension TAKE 1 TABLET BY MOUTH EVERY MORNING 90 tablet 1 025 Active senna (Senokot) 8.6 MG tabletIndication s:Constipation, unspecified constipation type TAKE 2 TABLETS BY MOUTH EVERY DAY AT BEDTIME NEEDED FOR CONSTIPATION 180 tablet 1 025 Active Continuous Glucose Sensor (FreeStyle Jeovany 2 Sensor) miscIndications: Type 2 diabetes mellitus with stage 3 chronic kidney disease, with long-term current use of insulin, unspecified whether stage 3a or 3b CKD ([facility]) USE DIRECTED CHANGE EVERY 14 DAYS 2 each 2 025 Active esomeprazole (NexIUM) [address] capsule TAKE 1 CAPSULE BY MOUTH EVERY MORNING BEFORE BREAKFAST 30 capsule 025 Active ursodiol (Actigall) 500 MG tablet TAKE 1 TABLET BY MOUTH TWICE DAILY IN THE MORNING AND IN THE EVENING 60 tablet 025 Active semaglutide (Ozempic, 1 MG/DOSE,) 2 MG/1.5ML solution pen-injectorIndi cations:Type 2 diabetes mellitus with hyperglycemia, with long-term current use of insulin ([facility]) Inject 1 mg under the skin 1 (one) time per week. 2 each 3 025 Active oxyCODONE-acetam inophen (Percocet) 5-325 MG tabletIndication s:Other chronic pain TAKE 1 TABLET BY MOUTH EVERY 6 HOURS NEEDED FOR SEVERE PAIN 112 tablet 025 2024 Active Blood Glucose Monitoring Suppl (FreeStyle Lite) deviceIndication s:Type 2 diabetes mellitus with stage 3 chronic kidney disease, with long-term current use of insulin, unspecified whether stage 3a or 3b CKD ([facility]) Inject under the skin 4 times daily. Test daily before all meals/snacks and once before bedtime. 1 each 023 2024 Discontinued(O ther) glucose blood (FREESTYLE LITE) test strip TEST BLOOD SUGAR FOUR TIMES DAILY 200 strip 3 024 2024 Discontinued(O ther) acetaminophen (Tylenol 8 Hour) 650 MG ER tabletIndication s:Cervical spondylosis with radiculopathy TAKE 1 TABLET BY MOUTH EVERY 8 HOURS NEEDED FOR MILD PAIN FOR UP TO 10 DAYS DO NOT BREAK, CRUSH, DISSOLVE OR CHEW 30 tablet 024 2024 Discontinued(M ed list cleanup (will not trigger notification to Pharmacy)) esomeprazole (NexIUM) [address] capsule Take 1 capsule (20 mg) by mouth before breakfast. 30 capsule 3 024 2024 Discontinued Ozempic, 0.25 or 0.5 MG/DOSE, 2 MG/3ML solution pen-injectorIndi cations:Type 2 diabetes mellitus with hyperglycemia, with long-term current use of insulin ([facility]) INJECT 0.5 MG SUBCUTANEOUSLY EVERY 7 DAYS IN THE ABDOMEN, THIGHS, OR UPPER ARM, ROTATE INJECTION SITES. 3 mL 3 024 2024 Discontinued(D ose adjustment) Ascorbic Acid (vitamin C) 500 MG tabletIndication s:Anemia in chronic kidney disease, unspecified CKD stage TAKE 1 TABLET BY MOUTH EVERY OTHER DAY IN THE MORNING 45 tablet 1 024 2024 Discontinued(T herapy completed) ursodiol (Actigall) 500 MG tablet TAKE 1 TABLET BY MOUTH TWICE DAILY IN THE MORNING AND IN THE EVENING 60 tablet 025 2024 Discontinued oxyCODONE-acetam inophen (Percocet) 5-325 MG tabletIndication s:Other chronic pain TAKE 1 TABLET BY MOUTH EVERY 6 HOURS NEEDED FOR SEVERE PAIN 112 tablet 025 2024 Discontinued Active Problems Problem Noted Date Diagnosed Date Chronic kidney disease, stage 4 (severe) Assessment & Plan (06/28/2024 4:39 PM EST): Creatinine and EGFR seems to be stable I advised to avoid nephrotoxic medications Continue to follow-up with nephrology Idiopathic hypotension 03/27/2024 Assessment & Plan (03/27/2024 4:16 PM EST): Patient known to have low diastolic blood pressure, she is clinically asymptomatic, I advise to c/w same medication regimens, maintain hydration, continue to follow also with specialists Health care maintenance 01/14/2024 Assessment & Plan (01/14/2024 1:01 PM EDT): S/p hysterectomy In care with dental /optometry In care with pharm for shady Arevalo on colonoscopy, 02/10 mammogram (managed by oncology) Osteoporosis- managed by oncology In care with GI, cardiology, nephrology, and team Anticipatory guidance reviewed Anemia due to stage 3b chronic kidney disease ([facility]) 12/26/2023 Congestive heart failure 12/26/2023 Overview (12/26/2023): 04/13 echo wnl Assessment & Plan (01/14/2024 12:45 PM EDT): Continue current regimen, in care with cardiology, denies orthopnea, edema or sob, Bp above goal today but at goal at home per pt report Type 2 diabetes mellitus wit h hypoglycemia without coma, with long-term current use of insulin 12/06/2023 Assessment & Plan (12/15/2023 12:30 PM EDT): I will adjust insulin doses A1c today is 7 I will go down on tresibe to 38U AM and PM I also went down on novolog to 28U with breakfast and 34U with dinner C/w ozempic 0.25mg weekly Patient is already refer to our pharmacy team CTDM for further medication adjustments Its my medical opinion patient will benefit from VNA services for help in glucose monitoring and medications administration, service will be set up for her Depression with anxiety 09/11/2023 Assessment & Plan (09/11/2023 1:57 PM EDT): Continue to follow up with psychiatrist and therapist Diabetic polyneuropathy asso ciated with type 2 diabetes mellitus 08/08/2023 Assessment & Plan (01/14/2024 12:46 PM EDT): Tolerating lyrica DM management is significantly improved Continue with pharm dm visits Assessment & Plan (08/08/2023 9:46 AM EDT): I discontinue her gabapentine on chart I will start her on pregabalin 75mg BID Continue to follow with podiatry Other constipation 03/30/2023 Assessment & Plan (01/14/2024 12:55 PM EDT): Current regimen effective , continue senna Assessment & Plan (12/06/2023 11:04 AM EDT): Refill for colace done today Assessment & Plan (03/30/2023 12:34 PM EST): More water and fiber on diet Epistaxis 10/07/2022 Type 2 diabetes mellitus wit h stage 3 chronic kidney disease, with long-term current use of insulin 06/08/2022 Assessment & Plan (03/26/2024 11:07 AM EST): Diabetes is: controlled - Lab Results Component Value Date HGBA1C 6.9 (A) 03/26/2024 HGBA1C 7.0 (A) 12/06/2023 HGBA1C 7.5 (A) 09/11/2023 - Lab Results Component Value Date MICROALBUR 11.0 10/07/2022 CREATININE 1.69 (H) 01/23/2024 -Changes: none - Diabetic eye exam:upcoming visit next month - Diabetic foot exam:up to date - Continue lifestyle modifications - Continue current medications - Follow up: 3 months Assessment & Plan (09/11/2023 1:57 PM EDT): Continue with same interventions Assessment & Plan (08/08/2023 9:48 AM EDT): I will refer patient to pre certification specialist outside after this plan is to refer her to endocrinology Meanwhile c/w same insulin regimen, I agree with discontinuation of trcachorro, extensive discussion about diabetic diet done Assessment & Plan (06/28/2023 10:51 AM EST): - Lab Results Component Value Date HGBA1C 8.0 (A) 06/28/2023 HGBA1C 7.7 (A) 03/30/2023 HGBA1C 8.3 (A) 01/19/2023 - Lab Results Component Value Date MICROALBUR 11.0 10/07/2022 CREATININE 1.72 (H) 10/07/2022 - - Diabetic eye exam: - Diabetic foot exam: - Continue lifestyle modifications - Continue current medications Assessment & Plan (03/30/2023 12:35 PM EST): - Lab Results Component Value Date HGBA1C 7.7 (A) 03/30/2023 HGBA1C 8.3 (A) 01/19/2023 HGBA1C 9.3 (A) 10/07/2022 - Lab Results Component Value Date MICROALBUR 11.0 10/07/2022 CREATININE 1.72 (H) 10/07/2022 - Diabetic eye exam: up to date - Diabetic foot exam:pending - Continue lifestyle modifications - Continue current medications Assessment & Plan (10/07/2022 9:39 AM EDT): - Lab Results Component Value Date HGBA1C 8.8 (A) 05/25/2022 HGBA1C 10.2 (H) 03/29/2021 HGBA1C 9.7 (H) 10/28/2020 - Lab Results Component Value Date MICROALBUR 201.0 04/21/2022 CREATININE 1.72 (H) 10/07/2022 - - Diabetic eye exam: up to date - Diabetic foot exam: pending - Continue lifestyle modifications - Continue current medications - Patient already has seen pre certification specialist diabetes has being challenging to manage I will refer her to endocrinology Assessment & Plan (07/21/2022 12:56 PM EST): Llast A1c was high. Continue current insulins dose XXXXX Continue Farxiga. FU with PCP in 2 months. FU closely with centrifugal station operator. Assessment & Plan (06/08/2022 1:02 PM EST): Restart Farxiga 10 mg and increase Lantus to 50 units qhs, continue 43 units in the morning. -Continue Humalog sliding scale. -Encouraged to increase small in fraction meals. -Will refer to school vocational educator and implant polisher. -FU with me in 3-4 weeks. Other chronic pain 05/25/2022 Assessment & Plan (01/14/2024 12:44 PM EDT): Continue current regimen of oxycodone 5/325 q 6 hours prn Assessment & Plan (05/25/2022 10:10 PM EST): ?msucular? Related to previous lumpectomy? Use diclofenac gel prn pain Continue Oxycodone same dose, patient is Aware that she is due to pick it up tomorrow. Chronic combined systolic and diastolic heart fa ilure 04/29/2022 Assessment & Plan (06/28/2024 4:39 PM EST): Patient is clinically stable Continue with same medications and follow-up with cardiology Bradycardia 04/29/2022 Chronic right shoulder pain 04/29/2022 Pain in wrist 04/29/2022 Chronic systolic heart failure 04/29/2022 Closed fracture of proximal phalanx of great toe 04/29/2022 Left foot pain 04/29/2022 Forgetfulness 04/29/2022 Precordial pain 04/29/2022 Chronic obstructive pulmonary disease 12/16/2021 Assessment & Plan (06/28/2024 4:38 PM EST): Stable continue with same medications and continue to follow-up with pulmonology Depressive disorder 12/16/2021 Assessment & Plan (01/14/2024 12:50 PM EDT): Stable on setraline, Gastroesophageal reflux disease 12/16/2021 Generalized anxiety disorder 12/16/2021 Normocytic anemia 07/19/2021 Assessment & Plan (01/14/2024 12:48 PM EDT): In care with GI, thought to be secondary to CKD. Utd on endoscopy and colonoscopy , abdominal ultrasound ordered by GI Renal osteodystrophy 07/19/2021 Type 2 diabetes mellitus wit h diabetic chronic kidney disease 01/12/2021 Microalbuminuria 12/04/2020 Obesity (BMI 30-39.9) 04/01/2019 Cervical spondylosis with radiculopathy 03/26/20 18 Overview (04/29/2022): 2012 - Dr Guevara Assessment & Plan (03/02/2023 10:16 AM EDT): Pt here with acute onset of neck pain, examination indicative of muscle spasm, review of medical record shows a Hx of cervical spondylosis with radiculopathy. No fever, no meningismus. No headache. Plan: Continue Oxycodone, Add Acetaminophen and muscle relaxant, Not a good candidate for NSAIDS. Plain films of Cervical Spine. Instructed to call or present to the ER if symptoms do nor improve or worsen, or if she is to develop headache, fever, or any other associated symptoms. Follow up with PCP in 1 week Assessment & Plan (07/21/2022 12:53 PM EST): Pain is controlled with oxycodone 3-4 times per day. Reminded about taking medications as prescribed with mild to moderate pain symptoms. We have done Pharmaco education re opiate side effects including dizziness, somnolence, constipation, urinary retention, dependance, etc. Patient is aware of the importance of avoiding any activity that requires vigilance while taking these meds including driving. We have discussed re avoiding diversion of medication, including giving pills to relatives. Patient is to keep medications in a safe place and is aware that rx will not be replaced if lost or stolen. Prescription sent today. FU with PATTERN GRADER SUPERVISOR nurse. Moderate persistent asthma 08/07/2017 Overview (04/29/2022): Methacholine challenge (+) Assessment & Plan (01/14/2024 12:44 PM EDT): Stable on current inhalers continue Chronic kidney disease 05/04/2017 Assessment & Plan (01/14/2024 12:56 PM EDT): Creatinine 2. Continue losartan Pain in right shoulder 09/16/2016 Overview (11/10/2023): 2011 - right shoulder pain; complete rotator cuff tear s/p surgery Venous insufficiency of leg 02/10/2014 Overview (04/29/2022): 04/03/2013 US - 50-99% left SFA but impression mild diffuse plaque of b/l MAURA. Dr. Crowley's note 06/13/13, no significant PAD . 03/2014 US - moderate (20-49%) stenosis in right EIA, left EIA, left SFA S/p right endovenous ablation 2013 Hypertension 10/24/2013 Assessment & Plan (06/28/2024 4:39 PM EST): Blood pressure seems to be under control I advised low-sodium diet and to take her medications every day without missing any dose Assessment & Plan (03/26/2024 11:06 AM EST): Maintenance: BMP:up to date Lipid Panel:up to date ASCVD Risk:high on atorvastatin 40mg daily, ASA 81mg daily - Aerobic exercise to reduce BP. Initial goal of 30 min walk 3-5x/week. Increase as tolerated. - low-sodium diet (goal: <2g/day) and heart healthy diet such as DASH to reduce BP and prevent ASCVD. - Home BP monitoring 1-2 x day with goal of <140/90. - Seek immediate medical attention for chest pain, palpitations, SOB, syncope, or sudden changes in mental status. - Do not change or discontinue current prescriptions without first consulting health care provider Assessment & Plan (01/14/2024 12:57 PM EDT): Above goal today, continue to monitor Continue amlodipine. Assessment & Plan (09/11/2023 1:56 PM EDT): Today BP is estefany I suspect it is because she is very upset, I advise to take her medications every day and to maintain a low Na diet, I ask her to log her BP and bring it for next upcoming appointment with me Assessment & Plan (06/28/2023 1:35 PM EST): - Aerobic exercise to reduce BP. Initial goal of 30 min walk 3-5x/week. Increase as tolerated. - low-sodium diet (goal: <2g/day) and heart healthy diet such as DASH to reduce BP and prevent ASCVD. - Home BP monitoring 1-2 x day with goal of <140/90. - Seek immediate medical attention for chest pain, palpitations, SOB, syncope, or sudden changes in mental status. - Do not change or discontinue current prescriptions without first consulting health care provider Assessment & Plan (03/30/2023 12:34 PM EST): - Aerobic exercise to reduce BP. Initial goal of 30 min walk 3-5x/week. Increase as tolerated. - low-sodium diet (goal: <2g/day) and heart healthy diet such as DASH to reduce BP and prevent ASCVD. - Home BP monitoring 1-2 x day with goal of <140/90. - Seek immediate medical attention for chest pain, palpitations, SOB, syncope, or sudden changes in mental status. - Do not change or discontinue current prescriptions without first consulting health care provider Assessment & Plan (10/07/2022 9:32 AM EDT): - Aerobic exercise to reduce BP. Initial goal of 30 min walk 3-5x/week. Increase as tolerated. - low-sodium diet (goal: <2g/day) and heart healthy diet such as DASH to reduce BP and prevent ASCVD. - Home BP monitoring 1-2 x day with goal of <140/90. - Seek immediate medical attention for chest pain, palpitations, SOB, syncope, or sudden changes in mental status. - Do not change or discontinue current prescriptions without first consulting health care provider Assessment & Plan (07/21/2022 12:59 PM EST): BP is at goal. Continue losartan 25 + carvedilol 6.25 + amlodipine 10 Counseled re low salt diet/increase moderate physical activity. Check home BP BIW and prn CP/CAMARILLO/RAMIREZ Non smoking patient. Assessment & Plan (05/25/2022 10:06 PM EST): Uncontrolled today, likely related to pain Continue to monitor BP at home three times per week and fu in 1m. No med changes today B12 deficiency anemia 09/19/2012 Allergic rhinitis 09/18/2012 Solitary pulmonary nodule 06/11/2012 Overview (04/29/2022): 01/[address] [place]. Last CT (abd) 06/02/12 - 5x7 pulm nodule, recommended rpt CT to confirm 2 years of stability. Nonproliferative diabetic re tinopathy associated with type 2 diabetes mellitus 05/07/2012 Overview (04/29/2022): Dr. Gee Oneal Type 2 diabetes mellitus 05/07/2012 Overview (04/29/2022): Last Assessment & Plan: Pt is currently taking Lantus 50 units daily at 7pm. She will stop Humulin R and start Humalog 4 units before each meal with sliding scale coverage for elevations BS 200-250, add 2 units BS 251-300, add 4 units BS 301-350, add [address] Gee Oneal Assessment & Plan (06/28/2024 4:40 PM EST): Diabetes is: controlled - Lab Results Component Value Date HGBA1C 6.9 (A) 03/26/2024 HGBA1C 7.0 (A) 12/06/2023 HGBA1C 7.5 (A) 09/11/2023 - Lab Results Component Value Date MICROALBUR 61.0 04/30/2024 CREATININE 1.69 (H) 01/23/2024 -Changes: None - Diabetic eye exam: Pending - Diabetic foot exam: Pending - Continue lifestyle modifications - Continue current medications - Follow up: 3 months Assessment & Plan (05/25/2022 10:09 PM EST): Patient is having hypoglycemia, liekly due to high Novolog dose. Increase Tresiba to 86u and fu in 1-2w, may need to split dose in to bid. Decrease Novolog tid ac meals to 6-15u and adjust at next appt according to fgstks. FU in 1-2w Obstructive sleep apnea 01/31/2012 Assessment & Plan (01/14/2024 12:17 PM EDT): Tolerating mask nightly, continue Assessment & Plan (07/21/2022 1:01 PM EST): Pt using cpap every night, tolerates well. Needs to continue using CPAP to decrease morbidity and mortality. Gastroparesis 02/14/2011 Overview (04/29/2022): Last Assessment & Plan: Pt is currently taking Lantus 50 units daily at 7pm. She will stop Humulin R and start Humalog 4 units before each meal with sliding scale coverage for elevations BS 200-250, add 2 units BS 251-300, add 4 units BS 301-350, add 6 units Last Assessment & Plan: Pt is currently taking Lantus 50 units daily at 7pm. She will stop Humulin R and start Humalog 4 units before each meal with sliding scale coverage for elevations BS 200-250, add 2 units BS 251-300, add 4 units BS 301-350, add 6 units Resolved Problems Problem Noted Date Diagnosed Date Resolved Date Breast cancer, right 06/24/2019 025 Overview (12/26/2023): Right partial mastectomy 07/11, invasive intraductal carcinoma Patient underwent ultrasound-guided core biopsy on 06/03/2019 that showed infiltrating ductal carcinoma, ER DE positive HER-2/ayanna negative grade [address] Oziel Sanchez and on 06/10/2019 patient underwent partial mastectomy/lumpectomy with sentinel lymph node dissection, pathology result showed 1.2 cm single focus invasive ductal carcinoma, sentinel lymph node was negative for malignancy (pathological stage T1cN0) Assessment & Plan (01/14/2024 12:11 PM EDT): Continue in care with oncology tolerating anastrazole Assessment & Plan (07/21/2022 12:54 PM EST): On right breast. Pt follow up closely at [facility]/Dr. March. Obtain result of last mammogram. Continue on anastrozole Encounters Date Type Department Care Team Description 07/09/2024 Refill [facility] [address] [place] [address] Angela Luz MD Other chronic pain 07/01/2024 Travel 06/29/2024 Refill [facility] [address] [place] [address] Angela Luz MD 06/28/2024 11:15 AM EST Office Visit [facility] [address] [place] [address] Angela Luz MD Primary hypertension (Primary Dx); Type 2 diabetes mellitus with hyperglycemia, with long-term current use of insulin ([facility]); Chronic kidney disease, stage 4 (severe) ([facility]); Chronic combined systolic and diastolic heart failure ([facility]); Chronic bronchitis, unspecified chronic bronchitis type ([facility]); Congestive heart failure, unspecified HF chronicity, unspecified heart failure type ([facility]); Type 2 diabetes mellitus with stage 3b chronic kidney disease, with long-term current use of insulin ([facility]) 06/28/2024 Travel 06/26/2024 Telephone [facility] [address] [place] [address] Lars Vides MA Chart Prep 06/23/2024 Refill [facility] [address] [place] [address] Angela Luz MD 06/10/2024 Refill [facility] [address] [place] [address] Angela Luz MD Type 2 diabetes mellitus with stage 3 chronic kidney disease, with long-term current use of insulin, unspecified whether stage 3a or 3b CKD ([facility]) 06/06/2024 Refill [facility] [address] [place] [address] Angela Luz MD Other chronic pain 05/31/2024 Refill [facility] [address] [place] [address] Angela Luz MD 05/30/2024 Refill [facility] [address] [place] [address] Angela Luz MD Primary hypertension; Constipation, unspecified constipation type 05/28/2024 Refill [facility] [address] [place] [address] Ninfa Dietrich PharmD Type 2 diabetes mellitus with stage 3 chronic kidney disease, with long-term current use of insulin, unspecified whether stage 3a or 3b CKD (CMS/HCC) 05/16/2024 Refill [facility] [address] [place] [phone] Angela Luz MD Diabetic polyneuropathy associated with type 2 diabetes mellitus (CMS/HCC) 05/10/2024 Telephone [facility] [address] [place] [address] Angela Luz MD Med Refill 05/10/2024 Refill [facility] [address] [place] [phone] Angela Luz MD Other chronic pain 05/07/2024 Telephone [facility] [address] [place] [address] Hortencia Dueñas MD 05/07/2024 Telephone [facility] [address] [place] [phone] Jh Joyce, [place] 05/06/2024 9:20 AM EST Office Visit [facility] [address] [place] [phone] Hortencia Dueñas MD Cough in adult patient; Acute cough 05/03/2024 Refill [facility] [address] [place] [phone] Angela Luz MD 05/01/2024 Refill [facility] [address] [place] [phone] Angela Luz MD Anemia in chronic kidney disease, unspecified CKD stage 04/30/2024 Orders Only [facility] [address] [place] [phone] Angela Luz MD Type 2 diabetes mellitus with stage 3 chronic kidney disease, with long-term current use of insulin, unspecified whether stage 3a or 3b CKD (CMS/HCC) (Primary Dx); Primary hypertension 04/30/2024 Orders Only [facility] [address] [place] [phone] Angela Luz MD 04/30/2024 Telephone [facility] [address] [place] [address] Ninfa Dietrich, PharmD 04/30/2024 Travel 04/25/2024 10:00 AM EST Office Visit [address] [address] Azalea España ANP Viral URI (Primary Dx); Nasal congestion; Acute cough 04/25/2024 9:00 AM EST Clinical Support [address] [address] Nazia Martins, schedule clerk right shoulder pain (Primary Dx) 04/25/2024 Travel 04/25/2024 Refill [facility] [address] [place] [address] Ninfa Dietrich, PharmD Type 2 diabetes mellitus with hyperglycemia, with long-term current use of insulin ([facility]) 04/25/2024 Telephone [facility] [address] [place] [address] Nazia Martins, RN 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 Tier 3 from Last 3 Months Immunizations Name Administration Dates Next Due Hep A, Adult 12/11/2023 Hep B, adult 12/11/2023 HepB-CpG 12/07/2023,08/21/2023 INFLUENZA INJECTABLE QUADRIV ALANT CCIIV4 MDCK Multi-dose vial 04/19/2017 Influenza High-dose Quadriva lent Preservative Free 03/30/2023,02/26/2021 Influenza Injectable Quadriv alant Preservative Free IIV4 MDCK 03/21/2019 Influenza injectable quadriv alent preservative free 03/14/2020 Influenza, High Dose Seasona l, Preservative Free 03/26/2024 Influenza, IIV3, injectable 03/21/2019,1 06/19/2016,05/02/2016,02/23,04/24/2014,03/28/2013,02/13/2012 Influenza, Unspecified 02/26/2021 Influenza, trivalent, adjuvanted 016,02/23/2015,04/24/2014,03/28,02/13/2012 Pfizer Covid-19 Vaccine 12+ 03/26/2024,0 06/28/2023,10/07/2021,03/02,07/30/2020,07/08/2020,07/02/2020 Pfizer Covid-19 Vaccine 12+ Bivalent 06/10/2022 Pfizer Covid-19 Vaccine 12+ kelechi-sucrose (Rosales Cap) 10/07/2021 Pneumococcal Conjugate PCV 13 03/30/2021 Pneumococcal Conjugate PCV 20 06/28/2023 Pneumococcal Polysaccharide PPSV23 05/08/2017, RSV Bivalent 07/20/2023 Tdap 08/21/2023,03/28/2013,08/21/2012 Zoster, Recombinant 07/20/2023,03/30/2021 Social History Tobacco Use Types Packs/Day Years Used Date Smoking Tobacco: Never Passive Smoke Exposure: Never Smokeless Tobacco: Never Tobacco Cessation:Counseling Given: Not Answered Alcohol Use Standard Drinks/Week Comments Never 0 (1 standard drink = 0.6 oz pur e alcohol) Alcohol Answer Date Recorded Frequency of Alcohol Consumption Not on file 03/26/2024 Average Number of Drinks Not on file 024 Frequency of Binge Drinking Not on file 09/2023 Score 0 03/26/2024 Housing Stability Answer Date Recorded What is your housing situation today? I have calosamado carmen 03/07/[address] you [...] Answer Date Recorded Patient Health Questionnaire-2 Score 6 12/26/2023 Comments Unknown Sex and Gender Information Value Date Recorded Sex Assigned at Female 03/21/2022 10:38 AM EDT Legal Sex Female 10:38 AM EDT Gender Identity Female 03/21/2022 10:38 AM EDT Sexual Orientation Straight 03/21/2022 10 :38 AM EDT Last Filed Vital Signs Vital Sign Reading Time Taken Comments Blood Pressure 142/44 07/01/2024 10:39 AM EST Pulse 61 07/01/2024 10:39 AM EST Temperature 36.7 ??C (98 ??F) 06/28/2024 11:05 AM EST Respiratory Rate 20 06/28/2024 11:05 AM EST Oxygen Saturation 100% 05/06/2024 9:31 AM EST Inhaled Oxygen Concentration - - Weight 62.7 kg (138 lb 3.2 oz) 06/28/2024 11:05 AM EST Height 142.2 cm (4' 8 ) 04/25/2024 10:00 AM EST Body Mass Index 30.98 04/25/2024 10:00 AM EST Plan of Treatment Upcoming Encounters Date Type Department Care Team (Late st Contact Info) Description 07/23/2024 9:00 AM EST Telemedicine [facility] [address] [place] [phone] Ninfa Dietrich, PharmD [address] [place] [phone] 08/21/2024 10:30 AM EDT Clinical Support [facility] [address] [place] [phone] Nazia Martins, DIAMOND Health Maintenance Due Date Last Done Comments CT Colonography 1955 Colonoscopy 1955 Colorectal Cancer Screening 1955 Dental Prophylaxis 1955 Dental X-Ray: Bitewings 1954 FIT DNA/Cologuard 1955 FIT 1955 FOBT 1955 Sigmoidoscopy 1955 Diabetes: Foot Exam 1964 Eye Exam 1965 Dental Oral Exam 08/08/2023 02/06/2023 Lipid Panel 05/23/2024 05/23/2023, 02/0 12/2021, 10/28/2020 SDOH Screening 06/27/2024 06/27/2023 Diabetes: Hemoglobin A1C 09/23/2024 024, 12/06/2023, 09/11/2023, Additional history exists Depression Screening 12/25/2024 12/26/2023, 12/26/19 24 Alcohol/Substance Use Screening 03/26/2025 03/26/2024 Mammogram 04/19/2025 04/19/2024, 03/22, 04/08/2022 Tobacco Screening 04/25/2025 04/25/2024 Dental X-Ray: Full Mouth 02/07/2026 02/06/2023 DTaP/Tdap/Td Vaccines (4 - Td or Tdap) 08/20/2033 08/21/2023, 03/28/2013, 08/21/2012 Hepatitis C Screening Completed 03/20/2023, 022 Pneumococcal Vaccine: 50+ Years Completed 06/28/2023, 03/30/2021, 05/08/2017, Additional history exists RSV Patients and Patients Aged 60 years or older Completed 07/20/2023 Zoster Vaccines Completed 07/20/2023, 03/30/2021 [...] patient's age to complete this topic Meningococcal Vaccine Aged Out No mari ngoc eligible based on patient's age to complete this topic RSV under 20 months Aged Out No longe r eligible based on patient's age to complete this topic Rotavirus Vaccines Aged Out No longer eligible based on patient's age to complete this topic Goals Goal Patient Goal Type Associated Problems Recent Progress Patient-Stated? Author Blood Pressure < 140/90 Blood Pressure 142/44(2024 10:39 AM EST) No Ady Araujo Hemoglobin A1c < 8 Result Component 6.9( 10:18 AM EST) No Ady Araujo Note: Comorbidities: CHF, CKD, cirrhosis Procedures Procedure Name Priority Date/Time Associated Diagnosis Comments POCT GLUCOSE Routine 06/28/2024 11:07 AM EST Type 2 diabetes mellitus with hyperglycemia, with long-term current use of insulin ([facility]) XR CHEST 2 VIEWS Routine 05/06/2024 10:3 2 AM EST Cough in adult patient POCT INFLUENZA B (ID NOW RAPID MOLECULAR) Routine 05/06/2024 9:42 AM EST Cough in adult patient POCT INFLUENZA A (ID NOW RAPID MOLECULAR) Routine 05/06/2024 9:42 AM EST Cough in adult patient POCT RAPID COVID ANTIGEN Routine 05/06/2024 9:34 AM EST Cough in adult patient ALBUMIN, RANDOM URINE W/CREATININE Routine 04/30/2024 9:29 AM EST POCT INFLUENZA B (ID NOW RAPID MOLECULAR) Routine 04/25/2024 10:11 AM EST Nasal congestion POCT INFLUENZA A (ID NOW RAPID MOLECULAR) Routine 04/25/2024 10:10 AM EST Nasal congestion POCT COVID-19 AG HAYDEN ID NOW Routine 04/25/2024 10:10 AM EST Nasal congestion POCT MIRANDA-14 URINE DRUG SCREEN Routine 04/25/2024 9:12 AM EST Chronic right shoulder pain POCT GLYCATED HEMOGLOBIN, TOTAL Routine 03/26/2024 10:18 AM EST Type 2 diabetes mellitus with stage 3b chronic kidney disease, with long-term current use of insulin (CMS/HCC) LIPID PANEL, STANDARD Routine 05/23/2023 9:57 AM EST Primary hypertension HEPATITIS PANEL, GENERAL Routine 03/20/2023 11:30 AM EDT PANORAMIC RADIOGRAPHIC IMAGE Routine 02/06/2023 11:00 AM EDT Edentulism COMPREHENSIVE ORAL EVALUATION - NEW OR ESTABLISHED PATIENT Routine 02/06/2023 11:00 AM EDT Edentulism HM MAMMOGRAPHY Routine 04/08/2022 from Last 3 Months or Most Recently Relevant to Health Maintenance Results * (ABNORMAL) POCT glucose manually resulted (06/28/2024 11:07 AM EST) Glucose Blood, POC 273(A) 60 - 200 mg/dL [facility] Blood Capillary blood specimen / Unknown 06/28/2024 11:07 AM EST us Angela Haley MD POINT OF CARE TEST EN TER/EDIT ORDERABLES Final Result [facility] [address] [place] [phone] * XR Chest 2 Views (05/06/2024 10:32 AM EST) Anatomical Region Laterality Modality Chest Radiographic Kenya ging 05/06/2024 10:3 2 AM EST Narrative 05/06/2024 3:28 PM EST ?[facility] ?[address] ?[place] [address] ?XRay Report ? Signed ? Patient: Dominguez Moreno,Angela ?MR#: ?? [id number] ? : 1955 ?Acct:[id number] ? Age/Sex: 68 / F ?ADM Date: 12/16/24 ? Loc: HO.HHCX ? Attending Dr: Hortencia Dueñas MD ? Ordering Physician: Hortencia Dueñas MD ?? Date of Service: 05/06/24 ?? Procedure(s): XR chest 2V ?? Accession Number(s): [id number] ? cc: Hortencia Dueñas MD ? EXAMINATION: ?? XR CHEST ? CLINICAL INFORMATION: ?? cough x over 1 month ? COMPARISON: ?? X-ray 09/26/2022 ? TECHNIQUE: ?? 2 views of the chest were obtained. ? FINDINGS: ?? Left pectoral pacemaker with leads extending to the right atrium and ?? right ventricle. Mediastinal clips. Cardiomediastinal silhouette is ?? stable, within normal limits. ?? Lungs are symmetrically expanded. There is bronchial wall thickening. ?? No focal consolidation seen. No effusion, pulmonary edema. No ?? pneumothorax is seen. Right humeral head bone anchor. Surgical clips in ?? the right chest wall. Multilevel spine degeneration. ? XR/XR chest 2V ?? IMPRESSION: ?? Bronchial wall thickening suggestive of small airway disease. ?? No focal consolidation. ? Electronically signed by: ??Salazar Garza MD ??05/06/2024 03:25 PM EST ?? RP ? Dictated By: ?Salazar Garza MD ? Signed By: ?<Electronically signed by Salazar Garza MD in OV> ?05/06/24 1525 ? DD/ 1032 ? TD/TT: 05/06/24 1040 ? Office Machine Service Supervisor: HB ? Procedure Note Varun Alexander - 05/06/[address] [address] XRay Report Signed Patient: Angela CullenMR#: [id number] : 5Acct:[id number] Age/Sex: 68 / FADM Date: 05/06/24 Loc: HO.HHCX Attending Dr: Hortencia Dueñas MD Ordering Physician: Hortencia Dueñas MD Date of Service: 05/06/24 Procedure(s): XR chest 2V Accession Number(s): [id number] cc: Hortencia Dueñas MD EXAMINATION: XR CHEST CLINICAL INFORMATION: cough x over 1 month COMPARISON: X-ray 09/26/2022 TECHNIQUE: 2 views of the chest were obtained. FINDINGS: Left pectoral pacemaker with leads extending to the right atrium and right ventricle. Mediastinal clips. Cardiomediastinal silhouette is stable, within normal limits. Lungs are symmetrically expanded. There is bronchial wall thickening. No focal consolidation seen. No effusion, pulmonary edema. No pneumothorax is seen. Right humeral head bone anchor. Surgical clips in the right chest wall. Multilevel spine degeneration. XR/XR chest 2V IMPRESSION: Bronchial wall thickening suggestive of small airway disease. No focal consolidation. Electronically signed by: Salazar Garza MD 05/06/2024 03:25 PM EST Dictated By: Salazar Garza MD Signed By: <Electronically signed by Salazar Garza MD in OV> 05/06/24 1525 DD/ 1032 TD/TT: 05/06/24 1040 Office Machine Service Supervisor: HB us Hortencia Dueñas MD IMG XR PROCEDURES Edited Re sult - Final * Influenza B (ID NOW Rapid Molecular) (05/06/2024 9:42 AM EST) Only the most recent of2 resultswithin the time period is included. Influenza B Negative Negative, Indeterminate [facility] Swab 05/06/2024 9:42 AM EST us Hortencia Dueñas MD POINT OF CARE TEST ENTER/ED IT ORDERABLES Final Result [facility] [address] [place] [phone] * Influenza A (ID NOW Rapid Molecular) (05/06/2024 9:42 AM EST) Only the most recent of2 resultswithin the time period is included. Influenza A Negative Negative, Indeterminate [facility] Swab 05/06/2024 9:42 AM EST us Hortencia Dueñas MD POINT OF CARE TEST ENTER/ED IT ORDERABLES Final Result Performing Organization Address [facility] Co de Phone Number [facility] [address] [place] [address] [phone] * POCT Rapid COVID Ag (05/06/2024 9:34 AM EST) Rapid COVID Ag Negative Swab 05/06/2024 9:34 AM EST us Hortencia Dueñas MD POINT OF CARE TEST ENTER/ED IT ORDERABLES Final Result * (ABNORMAL) Albumin, Random Urine W/Creatinine (04/30/2024 9:29 AM EST) Pathologist [facility] Creatinine, Urine 81.21 mg/dL [facility] Microalbumin Urine 61.0 mg/L [facility] Microalbum Creatinine Ratio Ur 75.1(H) <30 ug/mg cr [facility] Comment:Albumin/Creatinine R atio Reference Ranges: Normal: < 30 ug/mg creatinine Microalbuminuria: 30 - 300 ug/mg creatinineClinical Albuminuria: > 300 ug/mg creatinine 04/30/2024 9:29 AM EST 04/30/2024 11:34 AM EST us Angela Haley MD LAB URINE ORDERABLES Final Result Performing Organization Address [facility] Co de Phone Number [facility] [address] [place] [address] [phone] * POCT Rapid Covid-19 HAYDEN ID NOW (04/25/2024 10:10 AM EST) Coronavirus Antigen PCR Negative Negative, Indeterminate, None Detected, Invalid, Specimen unsatisfactory for evaluation, Weakly Positive [facility] QC Media Lot # [id number] [facility] Lot# Expiration Date [id number] [facility] Swab 04/25/2024 10:1 0 AM EST Azalea CENTENO POINT OF CARE TEST ENTER/EDIT OR DERABLES Final Result [facility] [address] [place] [address] [phone] * POCT MIRANDA-14 Urine Drug Screen (04/25/2024 9:12 AM EST) TCA, Urine Positive Oxycodone Screen, Urine Positive Urine Urine specimen obtained by clean catch procedure / Unknown 04/25/2024 9:12 AM EST Angela Haley MD POINT OF CARE TEST EN TER/EDIT ORDERABLES Final Result * (ABNORMAL) POCT HGB A1C (03/26/2024 10:18 AM EST) Hemoglobin A1C 6.9(A) 4.0 - 6.0 % QC Media Lot # [id number] Lot# Expiration Date Blood 03/26/2024 10:1 8 AM EST Angela Haley MD POINT OF CARE TEST EN TER/EDIT ORDERABLES Final Result * (ABNORMAL) Lipid Panel, Standard (05/23/2023 9:57 AM EST) Triglycerides 106 <150 mg/dL [facility] Comment:Desirable Triglyceri de: less than 150 mg/dLBorderline High Triglyceride 150-199 mg/dLHigh Triglyceride: 200-499 mg/dLVery High Triglyceride: greater than or equal to 5OO mg/dL Cholesterol 102 <200 mg/dL [facility] Comment:Desirable Cholestero l: less than 200 mg/dLBorderline High Cholesterol: 200-239 mg/dLHigh Cholesterol: greater than 239 mg/dL LDL Cholesterol Calculated 50 <100 mg/dL [facility] Comment:Desirable LDL: less than 100 mg/dLNear Optimal/Above Optimal LDL: 110- 129 mg/dLBorderline High LDL: 130-159 mg/dLHigh LDL: 160-189 mg/dLVery High LDL: greater than or equal to 190 mg/dL HDL Cholesterol 31(L) >40 mg/dL [facility] Comment:Desirable HDL: great er than 40 mg/dL Note: This HDL assay may give artificially low results in patients with liver disease. Blood Venous blood specimen / Unknown 05/23/2023 9:57 AM EST 05/23/2023 10:59 AM EST Angela Haley MD LAB BLOOD ORDERABLES Final Result Performing Organization Address [facility] de Phone Number [facility] [address] [place] [phone] * Hepatitis Panel, General (03/20/2023 11:30 AM EDT) Pathologist [facility] Hepatitis A IgM Nonreactive Nonreactive [facility] Comment:IgM antibodies to [place] V not detected; does not exclude earlyacute or recovered HAV infection. ~Hepatitis B Surface Antibody NONREACTIVE Nonreactive [facility] Comment:Nonreactive: < 8.00 mIU/mL Hepatitis B Core Antibody Nonreactive Nonreactive [facility] Hepatitis C Antibody Nonreactive Nonreactive [facility] Comment:Antibodies to HCV no t detected; does not exclude early acuteHCV infection. Hepatitis B Surface Ag Negative Negative [facility] 03/20/2023 11:3 0 AM EDT 03/20/2023 11:32 AM EDT [facility] External Provider LAB BLO OD ORDERABLES Final Result Performing Organization Address [facility] Co de Phone Number [facility] [address] [place] [phone] * Mammography (04/08/2022) Mammogram Bi-rads 2 Anatomical Region Laterality Modality Other us Historical Provider MD HEALTH MAINTENANCE Final Result from Last 3 Months or Most Recently Relevant to Health Maintenance Insurance [facility] [address] [place] [address] [phone] [address] [place] [phone] Care Teams Battery Charger Relationship Specialty Start Date End Date Angela Luz MD [address] [place] [address] PCP - General Family Medicine 10/27/20 Ninfa Dietrich, LauraD [address] [place] [address] Pharmacist Internal Medicine 11/10/23 [employer] 12/20/23
--- OUTSIDE RECORDS SUMMARY | 2024-07-22 09:38 | XMS_ITS | Encounter Summary ---
Author Organization [employer] Address [address] [place] [address] Care Team Providers Care Home Fire Alarm Installer Name Role Phone Angela Luz MD Primary Care Provide r Ninfa Dietrich PharmD Unavailable [phone] Reason for Visit * Reason Onset Date Comments Med Refill 05/30/2023 Encounter Details Date Type Department Care Team (Late st Contact Info) Description 05/30/2023 Refill [facility] [address] [place], [place] [phone] Gemini Lagunas MD [address] [place], [place] [phone] Primary hypertension Social History Tobacco Use Types Packs/Day Years [...] Info) Description 07/23/2024 9:00 AM EST Telemedicine [facility] [address] [place] [phone] Ninfa Dietrich PharmD [address] [place] [phone] 08/21/2024 10:30 AM EDT Clinical Support [facility] [address] [place] [phone] Nazia Martins RN documented as of this encounter Visit Diagnoses Diagnosis Primary hypertension Unspecified essential hypertension documented in this encounter Care Teams Home Fire Alarm Installer Relationship Specialty Start Date End Date Angela Luz MD [address] [place] [phone] PCP - General Family Medicine 10/27/20 Ninfa Dietrich PharmD [address] [place] [phone] Pharmacist Internal Medicine 11/10/23 [employer] 12/20/23 documented as of this encounter
--- OUTSIDE RECORDS SUMMARY | 2024-07-22 09:38 | XMS_ITS | Encounter Summary ---
Author Organization [employer] Address 75 [facility] 7t [place] [address] Care Team Providers Care Warp Worker Name Role Phone Angela Luz MD Primary Care Provide r Ninfa Dietrich PharmD Unavailable [phone]- [phone] Reason for Visit * Reason Onset Date Comments Med Refill 05/30/2023 Encounter Details Date Type Department Care Team (Late st Contact Info) Description 05/30/2023 Refill [facility] 230 [place], [place] [phone] Yunier Mohr MD 230 [place], [place] [phone] Forgetfulness Social History Tobacco Use Types Packs/Day Years [...] Info) Description 07/23/2024 9:00 AM EST Telemedicine [facility] [address] [place] [address] Ninfa Dietrich PharmD [address] [place] [address] 08/21/2024 10:30 AM EDT Clinical Support [address] [address] Nazia Martins RN documented as of this encounter Visit Diagnoses Diagnosis Forgetfulness Other general symptoms documented in this encounter Care Teams Warp Worker Relationship Specialty Start Date End Date Angela Luz MD [address] [place] [address] PCP - General Family Medicine 10/27/20 Ninfa Dietrich, LauraD [address] [place] [address] Pharmacist Internal Medicine 11/10/23 [employer] 12/20/23 documented as of this encounter
--- OUTSIDE RECORDS SUMMARY | 2024-07-22 09:38 | XMS_ITS | Encounter Summary ---
Author Organization [employer] Address [address] [facility] [address] 7t [place] [address] Care Team Providers Care Yard Brakeman Name Role Phone Angela Luz MD Primary Care Provide r Ninfa Dietrich PharmD Unavailable [phone]- [phone] Reason for Visit * Reason Comments Med Refill Encounter Details Date Type Department Care Team (Late st Contact Info) Description 05/30/2023 Refill [facility] 230 [place], [place] [phone] Angela Cornell MD 230 [place], [place] [phone] Type 2 diabetes mellitus with stage 3 chronic kidney disease, with long-term current use of insulin, unspecified whether stage 3a or 3b CKD (CMS/HCC) Social History Tobacco Use Types Packs/Day Years Used Date Smoking Tobacco: Never Passive Smoke Exposure: Never Smokeless Tobacco: Never Alcohol Use Standard Drinks/Week Comments Never 0 (1 standard drink = 0.6 oz pur e alcohol) Housing Stability Answer Date Recorded What is your housing situation today? I have calos sing 03/07/[address] you li [...] Info) Description 07/23/2024 9:00 AM EST Telemedicine [facility] [address] [place] [address] Ninfa Dietrich PharmD [address] [place] [address] 08/21/2024 10:30 AM EDT Clinical Support [facility] [address] [place] [address] Nazia Martins RN documented as of this encounter Visit Diagnoses Diagnosis Type 2 diabetes mellitus with stage 3 chronic kidney disease, with long-term current use of insulin, unspecified whether stage 3a or 3b CKD (CMS/HCC) documented in this encounter Care Teams Yard Brakeman Relationship Specialty Start Date End Date Angela Luz MD [address] [place] [address] PCP - General Family Medicine 10/27/20 Ninfa Dietrich PharmD [address] [place] [address] Pharmacist Internal Medicine 11/10/23 [employer] 12/20/23 documented as of this encounter
--- OUTSIDE RECORDS SUMMARY | 2024-07-22 09:38 | XMS_ITS | Encounter Summary ---
Author Organization [employer] Address 75 [facility] 7t [place] [address] Care Team Providers Care Licensed Massage Therapist Name Role Phone Angela Luz MD Primary Care Provide r Ninfa Dietrich PharmD Unavailable [phone]- [phone] Encounter Details Date Type Department Care Team (Late st Contact Info) Description 03/26/2024 Orders Only [facility] MEDICINE 230 [place], [place] [phone] Angela uLz MD 230 [place], [place] [phone] Social History Tobacco Use Types Packs/Day Years [...] Info) Description 07/23/2024 9:00 AM EST Telemedicine [facility] MED[facility]INE [address] [place] [address] Ninfa Dietrich, LauraD [address] [place] [address] 08/21/2024 10:30 AM EDT Clinical Support [address] [address] Nazia Martins, RN documented as of this encounter Goals Goal Patient Goal Type Associated Problems Recent Progress Patient-Stated? Author Blood Pressure < 140/90 Blood Pressure 142/44(2024 10:39 AM EST) No Ady Araujo Hemoglobin A1c < 8 Result Component 6.9( 10:18 AM EST) No Ady Araujo Note: Comorbidities: CHF, CKD, cirrhosis documented as of this encounter Visit Diagnoses Not on filedocumented in this encounter Care Teams Licensed Massage Therapist Relationship Specialty Start Date End Date Angela Luz MD [address] [place] [address] PCP - General Family Medicine 10/27/20 Ninfa Dietrich, LauraD [address] [place] [address] Pharmacist Internal Medicine 11/10/23 [employer] 12/20/23 documented as of this encounter
--- OUTSIDE RECORDS SUMMARY | 2024-07-22 09:38 | XMS_ITS | Encounter Summary ---
Author Organization [employer] Address 75 [facility] 7t [place] [address] Care Team Providers Care Global Program Manager Name Role Phone Angela Luz MD Primary Care Provide r Ninfa Dietrich PharmD Unavailable [phone]- [phone] Reason for Visit * Reason Onset Date Comments Med Refill 05/30/2023 Encounter Details Date Type Department Care Team (Late st Contact Info) Description 05/30/2023 Refill [facility] 230 [place], [place] [phone] Lashonda Alvarado MD 230 [place], [place] [phone] Constipation, unspecified constipation type Social History Tobacco Use Types Packs/Day Years [...] Info) Description 07/23/2024 9:00 AM EST Telemedicine [facility] [address] [place] [address] Ninfa Dietrich PharmD [address] [place] [address] 08/21/2024 10:30 AM EDT Clinical Support [address] [address] Nazia Martins RN documented as of this encounter Visit Diagnoses Diagnosis Constipation, unspecified constipation type documented in this encounter Care Teams Global Program Manager Relationship Specialty Start Date End Date Angela Luz MD [address] [place] [address] PCP - General Family Medicine 10/27/20 Ninfa Dietrich PharmD [address] [place] [address] Pharmacist Internal Medicine 11/10/23 [employer] 12/20/23 documented as of this encounter
--- OUTSIDE RECORDS SUMMARY | 2024-07-22 09:38 | XMS_ITS | Encounter Summary ---
Author Organization [employer] Address [address] [facility] [address] 7t [place] [address] Care Team Providers Care Sales Agent Protective Service Name Role Phone Angela Luz MD Primary Care Provide r Ninfa Dietrich PharmD Unavailable [phone] Reason for Visit * Reason Onset Date Comments Med Refill 05/30/2023 Encounter Details Date Type Department Care Team (Late st Contact Info) Description 05/30/2023 Refill [facility] [address] [place], [place] [phone] Angela Cornell MD 230 [place], [place] [phone] Diabetic polyneuropathy associated with type 2 diabetes mellitus (CMS/HCC) Social History Tobacco Use Types Packs/Day [...] Info) Description 07/23/2024 9:00 AM EST Telemedicine [facility] MEDICINE [address] [place] [address] Ninfa Dietrich PharmD [address] [place] [address] 08/21/2024 10:30 AM EDT Clinical Support [address] [address] Nazia Martins, DIAMOND documented as of this encounter Visit Diagnoses Diagnosis Diabetic polyneuropathy associated with type 2 diabetes mellitus (CMS/HCC) documented in this encounter Care Teams Sales Agent Protective Service Relationship Specialty Start Date End Date Angela Luz MD [address] [place] [address] PCP - General Family Medicine 10/27/20 Ninfa Dietrich PharmD [address] [place] [address] Pharmacist Internal Medicine 11/10/23 [employer] 12/20/23 documented as of this encounter
--- OUTSIDE RECORDS SUMMARY | 2024-07-22 09:38 | XMS_ITS | Encounter Summary ---
Author Organization [employer] Address [address] [facility] [address] 7t [place] [address] Care Team Providers Care Emergency Room Clinician Name Role Phone Angela Luz MD Primary Care Provide r Ninfa Dietrich PharmD Unavailable [phone]- [phone] Reason for Visit * Reason Onset Date Comments Med Refill 05/30/2023 Encounter Details Date Type Department Care Team (Late st Contact Info) Description 05/30/2023 Refill [facility] 230 [place], [place] [phone] Yunier Mohr MD 230 [place], [place] [phone] Cervical spondylosis with radiculopathy Social History Tobacco Use Types Packs/Day Years [...] Info) Description 07/23/2024 9:00 AM EST Telemedicine [address] [address] Ninfa Dietrich PharmD [address] [place] [address] 08/21/2024 10:30 AM EDT Clinical Support [address] [address] Nazia Martins, DIAMOND documented as of this encounter Visit Diagnoses Diagnosis Cervical spondylosis with radiculopathy Cervical spondylosis with myelopathy documented in this encounter Care Teams Emergency Room Clinician Relationship Specialty Start Date End Date Angela Luz MD [address] [place] [address] PCP - General Family Medicine 10/27/20 Ninfa Dietrich PharmD [address] [place] [address] Pharmacist Internal Medicine 11/10/23 [employer] 12/20/23 documented as of this encounter
--- OUTSIDE RECORDS SUMMARY | 2024-07-22 09:39 | XMS_ITS | Encounter Summary ---
Author Organization [employer] Address [address] [facility] [address] 7t [place] [address] Care Team Providers Care Event Representative Name Role Phone Angela Luz MD Primary Care Provide r Ninfa Dietrich PharmD Unavailable [phone] Reason for Visit * Reason Comments Med Refill Encounter Details Date Type Department Care Team (Late st Contact Info) Description 06/23/2024 Refill [facility] MED & PEDS [address] [place], [place] [phone] Angela Luz MD 230 [place], [place] [phone] Social History Tobacco Use Types Packs/Day Years [...] Info) Description 07/23/2024 9:00 AM EST Telemedicine [address] [address] Ninfa Dietrich PharmD [address] [place] [address] 08/21/2024 10:30 AM EDT Clinical Support [address] [address] Nazia Martins RN documented as of this encounter Goals Goal Patient Goal Type Associated Problems Recent Progress Patient-Stated? Author Blood Pressure < 140/90 Blood Pressure 142/44(2024 10:39 AM EST) No Ady Araujo Hemoglobin A1c < 8 Result Component 6.9( 10:18 AM EST) No Ady Arajuo Note: Comorbidities: CHF, CKD, cirrhosis documented as of this encounter Visit Diagnoses Not on filedocumented in this encounter Care Teams Event Representative Relationship Specialty Start Date End Date Angela Luz MD [address] [place] [address] PCP - General Family Medicine 10/27/20 Ninfa Dietrich, Shadia [address] [place] [address] Pharmacist Internal Medicine 11/10/23 [employer] 12/20/23 documented as of this encounter
--- OUTSIDE RECORDS SUMMARY | 2024-07-22 09:39 | XMS_ITS | Encounter Summary ---
Author Organization [employer] Address 75 [facility] 7t [place] [address] Care Team Providers Care Tool And Die Supervisor Name Role Phone Angela Luz MD Primary Care Provide r Ninfa Dietrich PharmD Unavailable [phone]- [phone] Reason for Visit * Reason Onset Date Comments Med Refill 02/28/2023 Encounter Details Date Type Department Care Team (Late st Contact Info) Description 02/28/2023 Refill [facility] MEDICINE 230 [place], [place] [phone] Angela Luz MD 230 [place], [place] [phone] Other chronic pain Social History Tobacco Use Types Packs/Day Years Used Date Smoking Tobacco: Never Smokeless Tobacco: Never Alcohol Use Standard Drinks/Week Comments Never 0 (1 standard drink = 0.6 oz pur e alcohol) Housing Stability Answer Date Recorded What is your housing situation today? I have calos carmen 02/27/[address] you li ve. Do you have problems with any of the following? None of the above 02/27/2023 Food Insecurity Answer Date Recorded Within the past 12 months, y ou worried that your food would run out before you got money to buy more: Never True 02/27/2023 Within the past 12 months,th e food you bought just didn't last and you didn't have enough money to get more: Never True 01/2023 Transportation Answer Date Recorded In the past 12 months, has l ack of transportation kept you from medical appts, meetings, work or from getting things needed for daily living? No 02/27/2023 Utilities Answer Date Recorded In the past 12 months, has t he electric, gas, oil or water company threatened to shut off services in your home? No 02/27/2023 Depression Answer Date Recorded Patient Health Questionnaire-2 [...] Info) Description 07/23/2024 9:00 AM EST Telemedicine [facility] MEDICINE [address] [place] [address] Ninfa Dietrich PharmD [address] [place] [address] 08/21/2024 10:30 AM EDT Clinical Support [address] [address] Nazia Martins RN documented as of this encounter Visit Diagnoses Diagnosis Other chronic pain documented in this encounter Care Teams Tool And Die Supervisor Relationship Specialty Start Date End Date Angela Luz MD [address] [place] [address] PCP - General Family Medicine 10/27/20 Ninfa Dietrich PharmD [address] [place] [address] Pharmacist Internal Medicine 11/10/23 [employer] 12/20/23 documented as of this encounter
--- OUTSIDE RECORDS SUMMARY | 2024-07-22 09:39 | XMS_ITS | Encounter Summary ---
Author Organization [employer] Address 75 [facility] 7t [place] [address] Care Team Providers Care Implementation Specialist Payroll Name Role Phone Angela Luz MD Primary Care Provide r Ninfa Dietrich PharmD Unavailable [phone]- [phone] Reason for Visit * Reason Onset Date Comments Med Refill 03/14/2024 Encounter Details Date Type Department Care Team (Late st Contact Info) Description 03/14/2024 Refill [facility] MEDICINE 230 [place], [place] [phone] Angela Luz MD 230 [place], [place] [phone] Social History Tobacco Use Types Packs/Day Years [...] Info) Description 07/23/2024 9:00 AM EST Telemedicine [facility] MEDICINE [address] [place] [address] Ninfa Dietrich PharmD [address] [place] [address] 08/21/2024 10:30 AM EDT Clinical Support [address] [address] Nazia Martins RN documented as of this [...] on filedocumented in this encounter Care Teams Implementation Specialist Payroll Relationship Specialty Start Date End Date Angela Luz MD [address] [place] [address] PCP - General Family Medicine 10/27/20 Ninaf Dietrich, Shadia [address] [place] [address] Pharmacist Internal Medicine 11/10/23 [employer] 12/20/23 documented as of this encounter
--- OUTSIDE RECORDS SUMMARY | 2024-07-22 09:39 | XMS_ITS | Encounter Summary ---
Author Organization [employer] Address [address] [facility] [address] 7t [place] [address] Care Team Providers Care On Site Manager Name Role Phone Angela Luz MD Primary Care Provide r Ninfa Dietrich PharmD Unavailable [phone]- [phone] Reason for Visit * Reason Onset Date Comments Chart Prep 06/26/2024 Encounter Details Date Type Department Care Team ([facility] st Contact Info) Description 06/26/2024 Telephone [facility] 230 [place], [place] [phone] Lars Vides MA Chart Prep Social History Tobacco Use Types Packs/Day Years [...] AM EDT documented as of this encounter Miscellaneous Notes * Telephone Encounter - Lars Vides MA - 06/26/2024 2:47 PM EST Chart Prep Labs: done Images: done Vaccines due: no updates Referrals: complete Screenings: colonoscopy , eye exam , Foot Exam Overdue care gaps: Glucose, SDOH, Oral Health documented in this encounter Plan of Treatment Upcoming Encounters Date Type Department Care Team (Late st Contact Info) Description 07/23/2024 9:00 AM EST Telemedicine [facility] [address] [place] [address] Ninfa Dietrich, LauraD [address] [place] [address] 08/21/2024 10:30 AM EDT Clinical Support [facility] [address] [place] [address] Nazia Martins RN documented as of this encounter Goals Goal Patient Goal Type Associated Problems Recent Progress Patient-Stated? Author Blood Pressure < 140/90 Blood Pressure 142/44(2024 10:39 AM EST) No Ady Araujo Hemoglobin A1c < 8 Result Component 6.9( 10:18 AM EST) Ady Chan Note: Comorbidities: CHF, CKD, cirrhosis documented as of this encounter Visit Diagnoses Not on filedocumented in this encounter Care Teams On Site Manager Relationship Specialty Start Date End Date Angela Luz MD 230 [place] [address] PCP - General Family Medicine 10/27/20 Ninfa Dietrich PharmD 230 [place] [address] Pharmacist Internal Medicine 11/10/23 [employer] 12/20/23 documented as of this encounter
--- OUTSIDE RECORDS SUMMARY | 2024-07-22 09:39 | XMS_ITS | Encounter Summary ---
Author Organization [employer] Address 75 [facility] 7t [place] [address] Care Team Providers Care Research Contracts Supervisor Name Role Phone Angela Luz MD Primary Care Provide r Ninfa Dietrich PharmD Unavailable [phone] Reason for Visit * Reason Comments Med Refill Encounter Details Date Type Department Care Team (Late st Contact Info) Description 07/03/2023 Refill [facility] 230 [place], [place] [phone] Angela Luz MD 230 [place], [place] [phone] Seasonal allergic rhinitis, unspecified trigger; Type 2 diabetes mellitus with other specified complication, unspecified whether industrial psychology teacher insulin use ([facility]) Social History Tobacco Use Types Packs/Day Years [...] Info) Description 07/23/2024 9:00 AM EST Telemedicine [facility] [address] [place] [address] Ninfa Dietrich PharmD [address] [place] [address] 08/21/2024 10:30 AM EDT Clinical Support [facility] [address] [place] [address] Nazia Martins RN documented as of this encounter Visit Diagnoses Diagnosis Seasonal allergic rhinitis, unspecified trigger Type 2 diabetes mellitus with other specified complication, unspecified whether industrial psychology teacher insulin use ([facility]) documented in this encounter Care Teams Research Contracts Supervisor Relationship Specialty Start Date End Date Angela Luz MD [address] [place] [address] PCP - General Family Medicine 10/27/20 Ninfa Dietrich PharmD [address] [place] [address] Pharmacist Internal Medicine 11/10/23 [employer] 12/20/23 documented as of this encounter
--- OUTSIDE RECORDS SUMMARY | 2024-07-22 09:39 | XMS_ITS | Encounter Summary ---
Author Organization [employer] Address 75 [facility] 7t [place] [address] Care Team Providers Care Metal Organ Pipe Maker Name Role Phone Angela Luz MD Primary Care Provide r Ninfa Dietrich PharmD Unavailable Reason for Visit * Reason Comments Med Refill Encounter Details Date Type Department Care Team ([facility] Contact Info) Description 07/21/2022 Refill [facility] MEDICINE 230 [place], [place] [phone] Ava Winn DO 230 [place], [place] [phone] Other chronic pain Social History Tobacco Use Types Packs/Day Years Used Date Smoking Tobacco: Never Smokeless Tobacco: Never Alcohol Use Standard Drinks/Week Comments Never 0 (1 standard drink = 0.6 oz pur e alcohol) Depression Answer Date Recorded Patient Health Questionnaire-2 Score 0 07/21/2022 Comments Unknown Sex and Gender Information Value Date Recorded Sex Assigned at Female 03/21/2022 10:38 AM EDT Legal Sex Female 10:38 AM EDT Gender Identity Female 03/21/2022 10:38 AM EDT Sexual Orientation Straight 03/21/2022 10 :38 AM EDT COVID-19 Exposure Response Date Recorded In the last 10 days, have yo u been in contact with someone who was confirmed or suspected to have Coronavirus/COVID-19? No / Unsure 07/21/2022 11:14 AM EST documented as of this encounter Plan of Treatment Upcoming Encounters Date Type Department Care Team (Late st Contact Info) Description 07/23/2024 9:00 AM EST Telemedicine [facility] MEDICINE [address] [place] [address] Ninfa Dietrich PharmD [address] [place] [address] 08/21/2024 10:30 AM EDT Clinical Support [address] [address] Nazia Martins, DIAMOND documented as of this encounter Visit Diagnoses Diagnosis Other chronic pain documented in this encounter Care Teams Metal Organ Pipe Maker Relationship Specialty Start Date End Date Angela Luz MD [address] [place] [address] PCP - General Family Medicine 10/27/20 Ninfa Dietrich PharmD [address] [place] [address] Pharmacist Internal Medicine 11/10/23 [employer] 12/20/23 documented as of this encounter
--- OUTSIDE RECORDS SUMMARY | 2024-07-22 09:39 | XMS_ITS | Encounter Summary ---
Author Organization [employer] Address 75 [facility] 7t [place] [address] Care Team Providers Care Meter Repair Shop Supervisor Name Role Phone Angela Luz MD Primary Care Provide r Ninfa Dietrich PharmD Unavailable [phone] Reason for Visit * Reason Comments Med Refill Encounter Details Date Type Department Care Team (Late Contact Info) Description 01/27/2023 Refill [facility] MEDICINE 230 [place] [address] Angela Luz MD 230 [place], [place] [phone] Other chronic pain Social History Tobacco Use [...] Department Care Team (Late Contact Info) Description 07/23/2024 9:00 AM EST Telemedicine [facility] MED[facility]INE 230 [place], [place] [phone] Ninfa Dietrich, PharmD 230 [place] [address] 08/21/2024 10:30 AM EDT Clinical Support [facility] MED[facility]INE [address] [place] [phone] Nazia Martins RN documented as of this encounter Visit Diagnoses Diagnosis Other chronic pain documented in this encounter Care Teams Meter Repair Shop Supervisor Relationship Specialty Start Date End Date Angela Luz MD [address] [place] [address] PCP - General Family Medicine 10/27/20 Ninfa Dietrich PharmD [address] [place] [address] Pharmacist Internal Medicine 11/10/23 [employer] 12/20/23 documented as of this encounter
--- OUTSIDE RECORDS SUMMARY | 2024-07-22 09:39 | XMS_ITS | Encounter Summary ---
Author Organization [employer] Address [address] [facility] 7t [place] [address] Care Team Providers Care Inspector Filters Name Role Phone Agnela Luz MD Primary Care Provide r Ninfa Dietrich PharmD Unavailable Reason for Visit * Reason Comments Med Refill Encounter Details Date Type Department Care Team (Late Contact Info) Description 02/20/2023 Refill [facility] MED & PEDS [address] [place], [place] [phone] Angela Luz MD [address] [place], [place] [phone] Gastroesophageal reflux disease, unspecified whether esophagitis present Social History Tobacco Use Types Packs/Day Years [...] Description 07/23/2024 9:00 AM EST Telemedicine [facility] MEDICINE [address] [place], [place] [phone] Ninfa Dietrich PharmD [address] [place] [phone] 08/21/2024 10:30 AM EDT Clinical Support [facility] MEDICINE [address] [place] [phone] Nazia Martins RN documented as of this encounter Visit Diagnoses Diagnosis Gastroesophageal reflux disease, unspecified whether esophagitis present documented in this encounter Care Teams Inspector Filters Relationship Specialty Start Date End Date Angela Luz MD [address] [place] [phone] PCP - General Family Medicine 10/27/20 Ninfa Dietrich PharmD [address] [place] [phone] Pharmacist Internal Medicine 11/10/23 [employer] 12/20/23 documented as of this encounter
--- OUTSIDE RECORDS SUMMARY | 2024-07-22 09:39 | XMS_ITS | Encounter Summary ---
Author Organization [employer] Address [address] [facility] 7t [place] [address] Care Team Providers Care Photographic Laboratory Supervisor Name Role Phone Angela Luz MD Primary Care Provide r Ninfa Dietrich PharmD Unavailable [phone] Reason for Visit * Reason Comments Med Refill Encounter Details Date Type Department Care Team (Late st Contact Info) Description 07/20/2023 Refill [facility] MEDICINE [address] [place], [place] [phone] Angela Cornell MD [address] [place], [place] [phone] Social History Tobacco Use Types Packs/Day Years [...] Info) Description 07/23/2024 9:00 AM EST Telemedicine [address] [address] Ninfa Dietrich PharmD [address] [place] [phone] 08/21/2024 10:30 AM EDT Clinical Support [address] [address] Nazia Martins RN documented as of this [...] on filedocumented in this encounter Care Teams Photographic Laboratory Supervisor Relationship Specialty Start Date End Date Angela Luz MD [address] [place] [address] [phone] PCP - General Family Medicine 10/27/20 Ninfa Dietrich PharmD [address] [place] [address] [phone] Pharmacist Internal Medicine 11/10/23 [email or web address] 12/20/23 documented as of this encounter
--- OUTSIDE RECORDS SUMMARY | 2024-07-22 09:39 | XMS_ITS | Encounter Summary ---
Author Organization [employer] Address [address] [facility] [address] 7t [place] [address] Care Team Providers Care Warehouse Helper Name Role Phone Angela Luz MD Primary Care Provide r Ninfa Dietrich PharmD Unavailable [phone] Encounter Details Date Type Department Care Team (Latest Contact Info) Description 07/01/2024 Travel Social History Tobacco Use Types Packs/Day Years [...] Info) Description 07/23/2024 9:00 AM EST Telemedicine [address] [phone] Ninfa Dietrich PharmD [address] [place] [phone] 08/21/2024 10:30 AM EDT Clinical Support [address] [address] Nazia Martins, DIAMOND documented as of this encounter Goals Goal Patient Goal Type Associated Problems Recent Progress Patient-Stated? Author Blood Pressure < 140/90 Blood Pressure 142/44(2024 10:39 AM EST) No Ady Araujo Hemoglobin A1c < 8 Result Component 6.9( 10:18 AM EST) No Ady Araujo Note: Comorbidities: CHF, CKD, cirrhosis documented as of this encounter Visit Diagnoses Not on filedocumented in this encounter Care Teams Warehouse Helper Relationship Specialty Start Date End Date Angela Luz MD [address] [place] [address] [phone] PCP - General Family Medicine 10/27/20 Ninfa Dietrich PharmD [address] [place] [address] [phone] Pharmacist Internal Medicine 11/10/23 [employer] 12/20/23 documented as of this encounter
--- OUTSIDE RECORDS SUMMARY | 2024-07-22 09:39 | XMS_ITS | Encounter Summary ---
Author Organization [employer] Address 75 [facility] 7t [place] [address] Care Team Providers Care Yacht Master Name Role Phone Angela Luz MD Primary Care Provide r Ninfa Dietrich PharmD Unavailable [phone] Reason for Visit * Reason Comments Med Refill Encounter Details Date Type Department Care Team ([facility] st Contact Info) Description 07/09/2024 Refill [facility] MEDICINE [address] [place], [place] [phone] Angela Luz MD [address] [place], [place] [phone] Other chronic pain Social History Tobacco Use [...] Info) Description 07/23/2024 9:00 AM EST Telemedicine [address] [phone] Ninfa Dietrich PharmD [address] [place] [phone] 08/21/2024 10:30 AM EDT Clinical Support [address] [address] Nazia Martins RN documented as of this [...] pain documented in this encounter Care Teams Yacht Master Relationship Specialty Start Date End Date Angela Luz MD [address] [place] [phone] PCP - General Family Medicine 10/27/20 Ninfa Dietrich, LauraD [address] [place] [phone] Pharmacist Internal Medicine 11/10/23 [email or web address] 12/20/23 documented as of this encounter
--- OUTSIDE RECORDS SUMMARY | 2024-07-22 09:39 | XMS_ITS | Encounter Summary ---
Author Organization [employer] Address 75 [facility] 7t [place] [address] Care Team Providers Care Clinical Documentation Nurse Name Role Phone Angela Luz MD Primary Care Provide r Ninfa Dietrich PharmD Unavailable [phone] Reason for Visit * Reason Comments Follow-up COPD Encounter Details Date Type Department Care Team (Late st Contact Info) Description 06/28/2024 11:15 AM EST Office Visit [facility] MEDICINE [address] [place], [place] [phone] Angela Luz MD [address] [place], [place] [phone] Primary hypertension (Primary Dx); Type 2 diabetes mellitus with hyperglycemia, with long-term current use of insulin (CMS/HCC); Chronic kidney disease, stage 4 (severe) (CMS/HCC); Chronic combined systolic and diastolic heart failure (CMS/HCC); Chronic bronchitis, unspecified chronic bronchitis type (CMS/HCC); Congestive heart failure, unspecified HF chronicity, unspecified heart failure type (CMS/HCC); Type 2 diabetes mellitus with stage 3b chronic kidney disease, with long-term current use of insulin ([facility]/HCC) Social History Tobacco Use Types Packs/Day Years Used Date Smoking Tobacco: Never Passive Smoke Exposure: Never Smokeless Tobacco: Never Alcohol Use Standard Drinks/Week Comments Never 0 (1 standard drink = 0.6 oz pur e alcohol) Alcohol Answer Date Recorded Frequency of Alcohol Consumption Not on file 03/26/2024 Average Number of Drinks Not on file 024 Frequency of Binge Drinking Not on file 1109/2023 Score 0 03/26/2024 Housing Stability Answer Date [...] AM EDT documented as of this encounter Last Filed Vital Signs Vital Sign Reading Time Taken Comments Blood Pressure 128/74 06/28/2024 11:05 AM EST Pulse 84 06/28/2024 11:05 AM EST Temperature 36.7 ??C (98 ??F) 06/28/2024 11:05 AM EST Respiratory Rate 20 06/28/2024 11:05 AM EST Oxygen Saturation - - Inhaled Oxygen Concentration - - Weight 62.7 kg (138 lb 3.2 oz) 06/28/2024 11:05 AM EST Height - - Body Mass Index 30.98 04/25/2024 10:00 AM EST documented in this encounter Progress Notes * Angela Haley MD - 06/28/2024 11:15 AM EST SUBJECTIVE: Angela Moreno is a 68 y.o. year old female who presents for Chronic Disease Management . Patient reports she has been doing well, reports anxiety depression is not under control Patient reports her glucose and blood pressure also has been stable at home Patient reports her asthma COPD is also under control she is using her inhalers and medications as prescribed Patient reports she has not been having any shortness of breath or fatigue she follows with cardiology also regularly Patient does complain of polyarthralgia especially her shoulder she recently had a steroid injection done reports it helped but pain is persistent, she also reports her oxycodone does help as well Social History Social History Narrative Living situation: lives with brother Employment/Education: staying at home Substance use: -alcohol -tobacco quit smoking >43 years ago -opioids Sexual activity: no , does not have Patient Active Problem List Diagnosis Chronic combined systolic and diastolic heart failure (CMS/HCC) Allergic rhinitis Bradycardia Cervical spondylosis with radiculopathy Chronic kidney disease Chronic obstructive pulmonary disease (CMS/HCC) Chronic right shoulder pain Pain in right shoulder Pain in wrist Chronic systolic heart failure (CMS/HCC) Closed fracture of proximal phalanx of great toe Depressive disorder Left foot pain Forgetfulness Gastroesophageal reflux disease Gastroparesis Generalized anxiety disorder Microalbuminuria Moderate persistent asthma Nonproliferative diabetic retinopathy associated with type 2 diabetes mellitus ([facility]/HCC) Normocytic anemia B12 deficiency anemia Obesity (BMI 30-39.9) Obstructive sleep apnea Precordial pain Renal osteodystrophy Solitary pulmonary nodule Type 2 diabetes mellitus with diabetic chronic kidney disease (CMS/HCC) Type 2 diabetes mellitus ([facility]/HCC) Hypertension Venous insufficiency of leg Other chronic pain Type 2 diabetes mellitus with stage 3 chronic kidney disease, with long-term current use of insulin([facility]) Epistaxis Other constipation Diabetic polyneuropathy associated with type 2 diabetes mellitus ([facility]/HCC) Depression with anxiety Type 2 diabetes mellitus with hypoglycemia without coma, with long-term current use of insulin ([facility]) Anemia due to stage 3b chronic kidney disease (CMS/HCC) (CMS/HCC) Congestive heart failure ([facility]/HCC) Health care maintenance Idiopathic hypotension Chronic kidney disease, stage 4 (severe) (CMS/[facility]) No family history on file. Review of Systems Constitutional: Negative. HENT: Negative. Respiratory: Negative. Cardiovascular: Negative. Musculoskeletal: Positive for arthralgias and myalgias. OBJECTIVE: Vitals: 06/28/24 1105 BP: 128/74 Pulse: 84 Resp: 20 Temp: 98 ??F (36.7 ??C) TempSrc: Oral Weight: 138 lb 3.2 oz (62.7 kg) Physical Exam Constitutional: Appearance: Normal appearance. Cardiovascular: Rate and Rhythm: Normal rate and regular rhythm. Pulmonary: Effort: Pulmonary effort is normal. Breath sounds: Normal breath sounds. Abdominal: General: Abdomen is flat. Palpations: Abdomen is soft. Musculoskeletal: Right lower leg: No edema. Left lower leg: No edema. Neurological: Mental Status: She is alert. Follow Up: No follow-ups on file. Current Outpatient Medications on File Prior to Visit Medication Sig Dispense Refill acetaminophen (Tylenol 8 Hour) 650 MG ER tablet TAKE 1 TABLET BY MOUTH EVERY 8 HOURS NEEDED FOR MILD PAIN FOR UP TO 10 DAYS DO NOT BREAK, CRUSH, DISSOLVE OR CHEW 30 tablet 0 albuterol (2.5 MG/3ML) 0.083% nebulizer solution INHALE 1 AMPULE USING A NEBULIZER THREE TIMES DAILY 180 mL 3 albuterol 108 (90 Base) MCG/ACT inhaler inhale 2 puff by inhalation route every 6 hours as needed for wheezing amLODIPine (Norvasc) 10 MG tablet TAKE 1 TABLET BY MOUTH AT BEDTIME 90 tablet 1 anastrozole (Arimidex) 1 MG chemo tablet take 1 tablet by oral route every day Ascorbic Acid (vitamin C) 500 MG tablet TAKE 1 TABLET BY MOUTH EVERY OTHER DAY IN THE MORNING 45 tablet 1 aspirin 81 MG EC tablet Take 1 tablet by mouth daily. atorvastatin (Lipitor) 40 MG tablet Take 1 tablet by mouth daily. Blood Glucose Monitoring Suppl (Foodtoeatyle Lite) device Inject under the skin 4 times daily. Test daily before all meals/snacks and once before bedtime. 1 each 0 calcitriol (Rocaltrol) 0.25 MCG capsule Take 0.25 mcg by mouth every other day. ceramides (CeraVe) moisturizing cream Mix with triamcinolone and apply as directed 453 g 1 clotrimazole (Lotrimin) 1 % cream APPLY TOPICALLY TO AFFECTED AREA(S) AND SURROUNDING AREA(S) TWICEDAILY IN THE MORNING AND IN THE EVENING 30 g 0 Continuous Glucose Carpenter Supervisor Wooden Ship (Foodtoeatyle Jeovany 2 Denton) device USE DIRECTED TO TEST BLOOD SUGAR EVERY 8 HOURS 1 each 0 Continuous Glucose Sensor (FreeStyle Jeovany 2 Sensor) misc USE DIRECTED CHANGE EVERY 14 DAYS 2 each 2 dapagliflozin (Farxiga) 10 MG take 1 tablet by oral route every day diphenhydrAMINE (Banophen) 25 MG capsule TAKE 1 TO 2 CAPSULES BY MOUTH EVERY 4 TO 6 HOURS NEEDEDFOR ITCHING 40 capsule 0 doxepin (SINEquan) 10 MG capsule Take 1 capsule by mouth if needed at bedtime for sleep. esomeprazole (NexIUM) [address] capsule TAKE 1 CAPSULE BY MOUTH EVERY MORNING BEFORE BREAKFAST 30 capsule 0 fluticasone (Flonase) 50 MCG/ACT nasal spray Administer 1-2 sprays into each nostril 1-2x per day as needed for congestion. Shake gently. Before first use, prime pump. After use, clean tip and replace cap. 16 g 0 Zwquosoyoyc-Wwqubsrcl-Krtagu (Trelegy Ellipta) 200-62.5-25 MCG/ACT aerosol powder inhale 1 puff by inhalation route every day at the same time each day glucagon (Baqsimi) 3 MG/DOSE nasal powder For severe hypoglycemia, administer 3 mg (1 actuation) into 1 nostril. May repeat dose if there has been no response after 15 minutes 2 each 11 glucose (Glutose) 40 % gel oral gel Take 15 g by mouth if needed for low blood sugar. 45 g 11 glucose blood (FREESTYLE LITE) test strip TEST BLOOD SUGAR FOUR TIMES DAILY 200 strip 3 glucose blood (FreeStyle Precision Boris Test) test strip Use to test blood sugar 3 times daily 100 each 12 insulin aspart (NovoLOG FLEXPEN) 100 UNIT/ML pen USE DIRECTED THREE TIMES DAILY PER SLIDING SCALE <150mg/dL= 0 units,151-199mg/dL=4 units,200-249mg/dL=6 units,250-299mg/dL=8 units,300-349mg/dL=10 units,350-399mg/dL=12 units,>400mg/dL 14 units & call offic 15 mL 3 insulin degludec (Tresiba FlexTouch) 200 UNIT/ML injection INJECT 44 UNITS SUBCUTANEOUSLY ONCE DAILY lactulose (Chronulac) 10 GM/15ML solution TAKE 15 ML BY MOUTH EVERY MORNING FOR 10 DAYS 150 mL 1 Lancets 33G misc 1 each 2 times daily. Test blood sugar 4 times a day 400 each 11 losartan (Cozaar) 25 MG tablet TAKE 1 TABLET BY MOUTH EVERY MORNING 90 tablet 1 mirtazapine (Remeron) 15 MG tablet Take 1 Tab by mouth at bedtime. montelukast (Singulair) 10 MG tablet take 1 tablet by oral route every day in the evening Movantik 12.5 MG tablet TAKE 1 TABLET BY MOUTH EVERY MORNING ON AN EMPTY STOMACH, no FOOD 1 HOUR AFTER OR 2 TO 3 HOURS BEFORE DOSE naloxone (Narcan) 4 mg/0.1 mL nasal spray Administer 1 spray (4 mg) into affected nostril(s) if needed for opioid reversal. spray 0.1 milliliter by intranasal route in 1 nostril may repeat dose every2-3 minutes as needed alternating nostrils with each dose 2 each 2 oxyCODONE-acetaminophen (Percocet) 5-325 MG tablet TAKE 1 TABLET BY MOUTH EVERY 6 HOURS NEEDED FOR SEVERE PAIN 112 tablet 0 Ozempic, 0.25 or 0.5 MG/DOSE, 2 MG/3ML solution pen-injector INJECT 0.5 MG SUBCUTANEOUSLY EVERY 7 DAYS IN THE ABDOMEN, THIGHS, OR UPPER ARM, ROTATE INJECTION SITES. 3 mL 3 pen needle 32G x 4 mm misc Use for insulin administration three times daily. Use as instructed 100 each 11 plecanatide (Trulance) tablet tablet Take 1 tablet by mouth every day predniSONE (Deltasone) 5 MG tablet TAKE 4 TABLETS BY MOUTH DAILY FOR FOURTEEN DAYS, 3 TABLET FOR FOURTEEN DAYS, 2 TABLET FOR FOURTEEN DAYS, THEN 1 TABLET FOR FOURTEEN DAYS pregabalin (Lyrica) 75 MG capsule TAKE 1 CAPSULE BY MOUTH TWICE DAILY IN THE MORNING AND IN THE EVENING 60 capsule 1 senna (Senokot) 8.6 MG tablet TAKE 2 TABLETS BY MOUTH EVERY DAY AT BEDTIME NEEDED FOR CONSTIPATION 180 tablet 1 sertraline (Zoloft) 100 MG tablet Take 1 tablet by mouth in the morning. torsemide (Demadex) 20 MG tablet Take 20 mg by mouth 2 times daily. triamcinolone (Kenalog) 0.1 % cream MIX WITH cerave CREAM AND APPLY TO THE AFFECTED AREA(S) TWICE DAILY IN THE MORNING AND AT BEDTIME NEEDED FOR PAIN AND SWELLING 80 g 3 ursodiol (Actigall) 500 MG tablet TAKE 1 TABLET BY MOUTH TWICE DAILY IN THE MORNING AND IN THE EVENING 60 tablet 0 [DISCONTINUED] esomeprazole (NexIUM) [address] capsule Take 1 capsule (20 mg) by mouth before breakfast. 30 capsule 3 No current facility-administered medications on file prior to visit. Problem List Items Addressed This Visit Type 2 diabetes mellitus ([facility]) Diabetes is: controlled - Lab Results Component Value Date HGBA1C 6.9 (A) 03/26/2024 HGBA1C 7.0 (A) 12/06/2023 HGBA1C 7.5 (A) 09/11/2023 - Lab Results Component Value Date MICROALBUR 61.0 04/30/2024 CREATININE 1.69 (H) 01/23/2024 -Changes: None - Diabetic eye exam: Pending - Diabetic foot exam: Pending - Continue lifestyle modifications - Continue current medications - Follow up: 3 months Relevant Orders POCT glucose manually resulted (Completed) Lipid Panel, Standard Comprehensive Metabolic Panel Hypertension - Primary Blood pressure seems to be under control I advised low-sodium diet and to take her medications every day without missing any dose Chronic kidney disease, stage 4 (severe) ([facility]) Creatinine and EGFR seems to be stable I advised to avoid nephrotoxic medications Continue to follow-up with nephrology Chronic combined systolic and diastolic heart failure ([facility]) Patient is clinically stable Continue with same medications and follow-up with cardiology Chronic obstructive pulmonary disease ([facility]) Stable continue with same medications and continue to follow-up with pulmonology Congestive heart failure ([facility]) documented in this encounter Miscellaneous Notes * Assessment & Plan Note - Angela Haley MD - 06/28/2024 4:40 PM EST Associated Problem(s): Type 2 diabetes mellitus ([facility]) Diabetes is: controlled - Lab Results Component Value Date HGBA1C 6.9 (A) 03/26/2024 HGBA1C 7.0 (A) 12/06/2023 HGBA1C 7.5 (A) 09/11/2023 - Lab Results Component Value Date MICROALBUR 61.0 04/30/2024 CREATININE 1.69 (H) 01/23/2024 -Changes: None - Diabetic eye exam: Pending - Diabetic foot exam: Pending - Continue lifestyle modifications - Continue current medications - Follow up: 3 months * Assessment & Plan Note - Angela Haley MD - 06/28/2024 4:39 PM EST Associated Problem(s): Chronic kidney disease, stage 4 (severe) (CMS/HCC) Creatinine and EGFR seems to be stable I advised to avoid nephrotoxic medications Continue to follow-up with nephrology * Assessment & Plan Note - Angela Haley MD - 06/28/2024 4:39 PM EST Associated Problem(s): Hypertension Blood pressure seems to be under control I advised low-sodium diet and to take her medications every day without missing any dose * Assessment & Plan Note - Angela Haley MD - 06/28/2024 4:39 PM EST Associated Problem(s): Chronic combined systolic and diastolic heart failure (CMS/HCC) Patient is clinically stable Continue with same medications and follow-up with cardiology * Assessment & Plan Note - Angela Haley MD - 06/28/2024 4:38 PM EST Associated Problem(s): Chronic obstructive pulmonary disease (CMS/HCC) Stable continue with same medications and continue to follow-up with pulmonology documented in this encounter Plan of Treatment Upcoming Encounters Date Type Department Care Team (Late st Contact Info) Description 07/23/2024 9:00 AM EST Telemedicine [facility] MEDICINE [address] [place] [address] [phone] Ninfa Dietrich LauraD [address] [place] [address] 08/21/2024 10:30 AM EDT Clinical Support [facility] MEDICINE [address] [place] [address] Nazia Martins, RN Scheduled Orders Name Type Priority Associated Diagnoses Orde r Schedule Lipid Panel, Standard Lab Routine Type 2 diabetes mellitus with hyperglycemia, with long-term current use of insulin ([facility]) Expected: 06/28/2024 (Approximate), Expires: 06/28/2025 Comprehensive Metabolic Panel Lab Routine Type 2 diabetes mellitus with hyperglycemia, with long-term current use of insulin ([facility]) Expected: 06/28/2024 (Approximate), Expires: 06/28/2025 documented as of this encounter Goals Goal Patient Goal Type Associated Problems Recent Progress Patient-Stated? Author Blood Pressure < 140/90 Blood Pressure 142/44(2024 10:39 AM EST) No Ady Araujo Hemoglobin A1c < 8 Result Component 6.9( 10:18 AM EST) No Ady Araujo Note: Comorbidities: CHF, CKD, cirrhosis documented as of this encounter Procedures Procedure Name Priority Date/Time Associated Diagnosis Comments POCT GLUCOSE Routine 06/28/2024 11:07 AM EST Type 2 diabetes mellitus with hyperglycemia, with long-term current use of insulin ([facility]) documented in this encounter Results * (ABNORMAL) POCT glucose manually resulted (06/28/2024 11:07 AM EST) Glucose Blood, POC 273(A) 60 - 200 mg/dL [facility] Blood Capillary blood specimen / Unknown 06/28/2024 11:07 AM EST us Angela Haley MD POINT OF CARE TEST EN TER/EDIT ORDERABLES Final Result [facility] [address] [place] [phone] documented in this encounter Visit Diagnoses Diagnosis Primary hypertension- Primary Unspecified essential hypertension Type 2 diabetes mellitus with hyperglycemia, with long-term current use of insulin ([facility]) Chronic kidney disease, stage 4 (severe) (CMS/HCC) Chronic combined systolic and diastolic heart failure ([facility]/HCC) Chronic combined systolic and diastolic heart failure Chronic bronchitis, unspecified chronic bronchitis type ([facility]/HCC) Congestive heart failure, unspecified HF chronicity, unspecified heart failure type ([facility]) Type 2 diabetes mellitus with stage 3b chronic kidney disease, with long-term current use of insulin ([facility]) documented in this encounter Care Teams Clinical Documentation Nurse Relationship Specialty Start Date End Date Angela Luz MD [address] [place] [address] PCP - General Family Medicine 10/27/20 Ninfa Dietrich PharmD [address] [place] [address] Pharmacist Internal Medicine 11/10/23 [employer] 12/20/23 documented as of this encounter
--- OUTSIDE RECORDS SUMMARY | 2024-07-22 09:39 | XMS_ITS | Encounter Summary ---
Author Organization [employer] Address 75 [facility] 7t [place] [address] Care Team Providers Care Face Boss Name Role Phone Angela Luz MD Primary Care Provide r Ninfa Dietrich PharmD Unavailable [phone]- [phone] Reason for Visit * Reason Comments Med Refill Encounter Details Date Type Department Care Team ([facility] st Contact Info) Description 06/29/[address] [facility] MEDICINE [address] [place], [place] [phone] Angela Luz MD [address] [place], [place] [phone] Social History Tobacco Use Types Packs/Day Years [...] Info) Description 07/23/2024 9:00 AM EST Telemedicine [address] [address] Ninfa Dietrich, LauraD [address] [place] [address] 08/21/2024 10:30 AM EDT Clinical Support [address] [address] Nazia Martins RN documented as of this [...] on filedocumented in this encounter Care Teams Face Boss Relationship Specialty Start Date End Date Angela Luz MD [address] [place] [address] PCP - General Family Medicine 10/27/20 Ninfa Dietrich, LauraD [address] [place] [phone] Pharmacist Internal Medicine 11/10/23 [employer] 12/20/23 documented as of this encounter
--- OUTSIDE RECORDS SUMMARY | 2024-07-22 09:39 | XMS_ITS | Encounter Summary ---
Author Organization [employer] Address [address] [facility] [address] 7t [place] [address] Care Team Providers Care Full Stack Java Developer Name Role Phone Angela Luz MD Primary Care Provide r Ninfa Dietrich PharmD Unavailable [phone]- [phone] Encounter Details Date Type Department Care Team (Latest Contact Info) Description 06/28/2024 Travel Social History Tobacco Use Types Packs/Day [...] Info) Description 07/23/2024 9:00 AM EST Telemedicine [address] [phone] Ninfa Dietrich PharmD [address] [place] [address] 08/21/2024 10:30 AM EDT Clinical Support [address] [address] Nazia Martins, DIAMOND documented as of this [...] on filedocumented in this encounter Care Teams Full Stack Java Developer Relationship Specialty Start Date End Date Angela Luz MD [address] [place] [address] [phone] PCP - General Family Medicine 10/27/20 Ninfa Dietrich PharmD [address] [place] [address] [phone] Pharmacist Internal Medicine 11/10/23 [employer] 12/20/23 documented as of this encounter
--- OUTSIDE RECORDS SUMMARY | 2024-07-22 09:40 | XMS_ITS | Encounter Summary ---
Author Organization [employer] Address [address] [facility] [address] 7t [place] [address] Care Team Providers Care Break Up Worker Name Role Phone Angela Luz MD Primary Care Provide r Ninfa Dietrich PharmD Unavailable [phone]- [phone] Reason for Visit * Reason Onset Date Comments Call Back Request 01/24/2024 Encounter Details Date Type Department Care Team ([facility] st Contact Info) Description 01/24/2024 Telephone [facility] MEDICINE 230 [place], [place] [phone] Angela Luz MD [address] [place], [place] [phone] Call Back Request Social History Tobacco Use Types Packs/Day Years [...] encounter Miscellaneous Notes * Telephone Encounter - Jared Christie - 01/24/2024 11:42 AM EDT Tc from Angela the [facility] requesting a calll back in regards to a sliding scale that was suppose to be faxed to [phone] please call Angela at [phone] documented in this encounter Plan of Treatment Upcoming Encounters Date Type Department Care Team (Late st Contact Info) Description 07/23/2024 9:00 AM EST Telemedicine [facility] MEDICINE [address] [place] [address] Ninfa Dietrich PharmD [address] [place] [address] 08/21/2024 10:30 AM EDT Clinical Support [facility] MEDICINE [address] [place] [address] Nazia Martins RN documented as of this [...] on filedocumented in this encounter Care Teams Break Up Worker Relationship Specialty Start Date End Date Angela Luz MD [address] [place] [address] PCP - General Family Medicine 10/27/20 Ninfa Dietrich, Shadia [address] [place] [address] Pharmacist Internal Medicine 11/10/23 [employer] 12/20/23 documented as of this encounter
--- OUTSIDE RECORDS SUMMARY | 2024-07-22 09:40 | XMS_ITS | Clinical Summary ---
Author Organization [facility] Address [address] [place] [address] Phone Care Team Providers Care Web Operations Lead Name Role Phone Angela Luz MD Primary Care Provide r Allergies Active Allergy Reactions Criticality Noted Date Comments Latex 07/08/2019 Tramadol 07/08/2019 Medications acetaminophen (TYLENOL 8 HOUR) 650 mg 8 [...] TAKE 1 TABLET BY MOUTH EVERY EVENING 09/19/19 24 Active ascorbic acid (VITAMIN C) 250 mg [...] (Farxiga) 5 mg tablet Take by mouth. Activ e diphenhydrAMINE (BENADRYL) 25 mg capsule Take 1 [...] by mouth every morning before breakfast. Active fluticasone-ume clidinium-vilan terol (TRELEGY ELLIPTA) 200-62.5-25 mcg inhaler Inhale into [...] Take 12.5 mg by mouth daily. Active oxyCODONE-aceta minophen (PERCOCET) 5-325 mg per tablet Take 1 [...] OR UPPER ARM, ROTATE INJECTION SITES. Active Immunizations Name Administration Dates Next Due COVID-19 (Pfizer/Comirnaty) 12yo and older 06/28/2023 Netotiate SARS-CoV-2 COVID-19, mRNA, LNP-S, preservative free 06/10/2022,10/07/2021,03/02/2021,2020,07/02/2020 [...] due to type 2 di abetes mellitus (CMS/HCC) DX:CKD stage 3 due to type 2 diabetes mellitus (HCC) Insomnia DX:Insomnia Chronic shoulder pain DX:Chronic shoulder pain Type 2 diabetes mellitus wit h diabetic neuropathy ([facility]/HCC) DX:Type 2 diabetes mellitus with diabetic neuropathy (HCC) Heel pain DX:Heel pain Venous insufficiency DX:Venous i nsufficiency HTN, goal below 140/80 DX:HTN, g oal below 140/80 Vitamin B12 deficiency anemia DX :Vitamin B12 deficiency anemia Allergic rhinitis DX:Allergic rh initis Solitary pulmonary nodule DX:Alisa itary pulmonary nodule Nonproliferative diabetic re tinopathy associated with type 2 diabetes mellitus ([facility]/HCC) DX:Nonproliferative diabetic retinopathy associated with type 2 diabetes mellitus ([facility]) Mild obstructive sleep apnea DX: Mild obstructive sleep apnea RLS (restless legs syndrome) DX: RLS (restless legs syndrome) Anemia DX:Anemia PAD (peripheral artery disease) ([facility]) DX:PAD (peripheral artery disease) ([facility]) Hyperlipidemia DX:Hyperlipidemi a Essential hypertension, benign D X:Essential hypertension, benign Glaucoma DX:Glaucoma DM (diabetes mellitus) type II controlled, neurological manifestation ([facility]) DX:DM (diabetes m ellitus) type II controlled, neurological manifestation ([facility]) Breast cancer ([facility]) Social History Tobacco Use Types Packs/Day Years Used Date Smoking Tobacco: Former Smokeless Tobacco: Never Alcohol Use Standard Drinks/Week Comments No 0 (1 standard drink = 0.6 oz pur e alcohol) Comments No Sex and Gender Information Value Date Recorded Sex Assigned at Not on file Legal Sex Female 4:36 AM EST Gender Identity Not on file Sexual Orientation Not on file Obstetrics History Para Term [...] Description 11/25/2024 9:00 AM EDT Office Visit [facility] Hematology Oncology [address] [place] [phone] Nabeel March MD [address] [place] [address] Health Maintenance Due Date Last Done Comments [...] Hepatitis C Screening Completed 11/17/2021 Pneumococcal Vaccine: 50+ Years Completed 06/28/2023, 03/30/2021, [...] patient's age to complete this topic Meningococcal B Vacine Aged Out No lo nger eligible based on patient's age to complete [...] Signed Date: 04/19/2024 14:13 ET Workstation ID: [id number] Transcribed By: Self Edit Transcribed Date: 04/19/2024 [...] obscures some of the anatomy. Procedure Note Sonal, Raymon F, MD - 04/19/2024 EXAM: SCREENING MAMMOGRAPHY, BILATERAL HISTORY: SCREENING. Personal history of breast cancer. Prior rightlumpectomy COMPARISON: 04/17/2023, 04/08/2022, 03/08/2021, 03/06/2020 TECHNIQUE: Synthesized CC and MLO projections of each breast.Tomosynthesis of each breast in the CC and MLO projections. ADDITIONAL IMAGING: Craniocaudal view of the right breast exaggeratedtoward the axilla using Tomosynthesis Computer-aided detection was employed with the [employer] AI 3-D. TISSUE DENSITY: The breasts are [...] Signed Date: 04/19/2024 14:13 ET Workstation ID: [id number] Transcribed By: Self Edit Transcribed Date: 04/19/2024 14:04 ET us Angela Haley MD IMG BI PROCEDURES Fin al Result * BD Bone Density DXA Axial Skeleton [...] probability of hip fracture of 4.0%. Code 62162 -------- FINAL REPORT -------- Dictated By: Joby Brand Dictated Date: 04/19/2024 09:53 ET Assigned Physician: Joby Brand Reviewed and Electronically Signed By: Joby Brand Signed Date: 04/19/2024 09:54 ET Workstation ID: [id number] Transcribed By: Self Edit Transcribed Date: 04/19/2024 [...] density of the femurs bilaterally is 0.907 gm/xu0knyop is 90% of that of young normals [...] probability of hip fracture of 4.0%. Code 30911 -------- FINAL REPORT -------- Dictated By: Joby Brand Dictated Date: 04/19/2024 09:53 ET Assigned Physician: Joby Brand Reviewed and Electronically Signed By: Joby Brand Signed Date: 04/19/2024 09:54 ET Workstation ID: [id number] Transcribed By: Self Edit Transcribed Date: 04/19/2024 09:53 ET us Nabeel March MD IM DXA PROCEDURES Final Res ult * Lipid panel (05/23/2023) [facility] Triglycerides 0 mg/dL Comment:No interpretation Cholesterol 0 mg/dL Comment:No interpretation HDL 0 mg/dL Comment:No interpretation LDL Cholesterol 0 mg/dL Comment:No interpretation Blood Venous blood specimen / Unknown Result [facility] Provider LAB BLOOD ORDERABLES Ruthy l Result * Urine Albumin Creatinine Ratio (10/07/2022) Pathologist [facility] Urine Albumin Creatinine Ratio Abstracted Result [facility] Provider HEALTH MAINTENANCE Final Result * Annual BMP Blood Test (01/13/2022) [facility] Annual BMP Blood Test Abstracted Result [facility] HEALTH MAINTENANCE Final Result * Hepatitis C Screening (11/17/2021) [facility] Hepatitis C Screening Abstracted Result [facility] HEALTH MAINTENANCE Final Result * Hemoglobin A1c (03/29/2021) [facility] Hemoglobin A1C 0.0 % Comment:No interpretation Blood Venous blood specimen / Unknown Result [facility] LAB BLOOD ORDERABLES Ruthy l Result from Last 3 Months or Most Recently Relevant to Health Maintenance Insurance [facility] MEDICARE Member Subscriber Plan / Payer (Ef fective 2023-Present) Name:Angela Dominguez Relation to Subscriber:Self Name:Angela Dominguez Payer ID:[id number] Group ID:[id number] Type:Not on file Address: [place] [address] [address] [id number] Care Teams Web Operations Lead Relationship Specialty Start Date End Date Angela Luz MD 230 [facility] [address] [place] [address] PCP - General Internal Medicine 01/28/21
--- OUTSIDE RECORDS SUMMARY | 2024-07-22 09:40 | XMS_ITS | Encounter Summary ---
Author Organization [employer] Address 75 [facility] 7t [place] [address] Care Team Providers Care Heater Mechanic Name Role Phone Angela Luz MD Primary Care Provide r Ninfa Dietrich PharmD Unavailable [phone]- [phone] Reason for Visit * Reason Comments Med Refill Encounter Details Date Type Department Care Team ([facility] st Contact Info) Description 03/14/2023 Refill [facility] MEDICINE [address] [place], [place] [phone] Jeancarlos Brice MD [address] [place], [place] [phone] Chronic pruritus Social History Tobacco Use Types Packs/Day Years [...] Info) Description 07/23/2024 9:00 AM EST Telemedicine [facility] MEDICINE [address] [place] [address] Ninfa Dietrich PharmD [address] [place] [address] 08/21/2024 10:30 AM EDT Clinical Support [address] [address] Nazia Martins RN documented as of this encounter Visit Diagnoses Diagnosis Chronic pruritus documented in this encounter Care Teams Heater Mechanic Relationship Specialty Start Date End Date Angela Luz MD [address] [place] [phone] PCP - General Family Medicine 10/27/20 Ninfa Dietrich, PharmD [address] [place] [phone] Pharmacist Internal Medicine 11/10/23 [employer] 12/20/23 documented as of this encounter
--- OUTSIDE RECORDS SUMMARY | 2024-07-22 09:40 | XMS_ITS | Encounter Summary ---
Author Organization [employer] Address 75 [facility] 7t [place] [address] Care Team Providers Care Leather Stamper Name Role Phone Angela Luz MD Primary Care Provide r Ninfa Dietrich PharmD Unavailable [phone]- [phone] Reason for Visit * Reason Onset Date Comments Med Refill 05/30/2023 Encounter Details Date Type Department Care Team (Late st Contact Info) Description 05/30/2023 Refill [facility] MEDICINE 230 [place], [place] [phone] Angela Luz MD [address] [place], [place] [phone] Type 2 diabetes mellitus with other specified complication, unspecified whether residential insulin use (CMS/HCC); Type 2 diabetes mellitus with stage 3 chronic kidney disease, with long-term current use of insulin, unspecified whether stage 3a or 3b CKD (CMS/HCC); Other chronic pain Social History Tobacco Use [...] Info) Description 07/23/2024 9:00 AM EST Telemedicine [address] [address] Ninfa Dietrich PharmD [address] [place] [address] 08/21/2024 10:30 AM EDT Clinical Support [address] [address] Nazia Martins RN documented as of this encounter Visit Diagnoses Diagnosis Type 2 diabetes mellitus with other specified complication, unspecified whether residential insulin use (CMS/HCC) Type 2 diabetes mellitus with stage 3 chronic kidney disease, with long-term current use of insulin, unspecified whether stage 3a or 3b CKD (CMS/HCC) Other chronic pain documented in this encounter Care Teams Leather Stamper Relationship Specialty Start Date End Date Angela Luz MD [address] [place] [phone] PCP - General Family Medicine 10/27/20 Ninfa Dietrich PharmD [address] [place] [address] Pharmacist Internal Medicine 11/10/23 [employer] 12/20/23 documented as of this encounter
--- OUTSIDE RECORDS SUMMARY | 2024-07-22 09:40 | XMS_ITS | Encounter Summary ---
Author Organization [employer] Address 75 [facility] 7t [place] [address] Care Team Providers Care Supervisor Park Workers Name Role Phone Angela Luz MD Primary Care Provide r Ninfa Dietrich PharmD Unavailable Reason for Visit * Reason Comments Med Refill Encounter Details Date Type Department Care Team ([facility] Contact Info) Description 06/30/2022 Refill [facility] PEDS [address] [place] [address] Balwinder Kumar MD [address] [place] [address] Social History Tobacco Use Types Packs/Day Years [...] suspected to have Coronavirus/COVID-19? No / Unsure 06/30/2022 9:37 AM EST documented as of this encounter Plan of Treatment Upcoming Encounters Date Type Department Care Team ([facility] Contact Info) Description 07/23/2024 9:00 AM EST Telemedicine [address] [address] Ninfa Dietrich PharmD [address] [place] [address] 08/21/2024 10:30 AM EDT Clinical Support [address] [address] Nazia Martins RN documented as of this encounter Visit Diagnoses Not on filedocumented in this encounter Care Teams Supervisor Park Workers Relationship Specialty Start Date End Date Angela Luz MD [address] [place] [address] PCP - General Family Medicine 10/27/20 Ninfa Dietrich PharmD [address] [place] [phone] Pharmacist Internal Medicine 11/10/23 [employer] 12/20/23 documented as of this encounter
--- OUTSIDE RECORDS SUMMARY | 2024-07-22 09:40 | XMS_ITS | Encounter Summary ---
Author Organization [employer] Address 75 [facility] 7t [place] [address] Care Team Providers Care Arc Cutter Plasma Arc Name Role Phone Angela Luz MD Primary Care Provide r Ninfa Dietrich PharmD Unavailable [phone]- [phone] Reason for Visit * Reason Comments Med Refill Encounter Details Date Type Department Care Team (Late st Contact Info) Description 09/06/2023 Refill [facility] MEDICINE [address] [place], [place] [phone] Angela Luz MD 230 [place], [place] [phone] Type 2 diabetes mellitus with other specified complication, unspecified whether senior living insulin use ([facility]) Social History Tobacco Use Types [...] enough money to get more: Never True 10/ Transportation Answer Date Recorded In the past [...] Info) Description 07/23/2024 9:00 AM EST Telemedicine [address] [address] Ninfa Dietrich PharmD [address] [place] [address] 08/21/2024 10:30 AM EDT Clinical Support [address] [address] Nazia Martins, DIAMOND documented as of this [...] mellitus with other specified complication, unspecified whether long haul truck driver insulin use (CMS/HCC) documented in this encounter Care Teams Arc Cutter Plasma Arc Relationship Specialty Start Date End Date Angela Luz MD [address] [place] [address] PCP - General Family Medicine 10/27/20 Ninfa Dietrich PharmD [address] [place] [address] Pharmacist Internal Medicine 11/10/23 [employer] 12/20/23 documented as of this encounter
--- OUTSIDE RECORDS SUMMARY | 2024-07-22 09:40 | XMS_ITS | Encounter Summary ---
Author Organization [employer] Address [address] [facility] [address] 7t [place] [address] Care Team Providers Care Acct Exec Name Role Phone Angela Luz MD Primary Care Provide r Ninfa Dietrich PharmD Unavailable [phone]- [phone] Encounter Details Date Type Department Care Team (Late st Contact Info) Description 04/18/2023 Abstract [facility] MEDICINE [address] [place] [address] Delia Ballard Social History Tobacco Use Types Packs/Day Years [...] Info) Description 07/23/2024 9:00 AM EST Telemedicine [facility] MEDICINE [address] [place] [address] Ninfa Dietrich PharmD [address] [place] [address] 08/21/2024 10:30 AM EDT Clinical Support [facility] MEDICINE [address] [place] [address] Nazia Martins RN documented as of this encounter Visit Diagnoses Not on filedocumented in this encounter Care Teams Acct Exec Relationship Specialty Start Date End Date Angela Luz MD [address] [place] [address] [phone] PCP - General Family Medicine 10/27/20 Ninfa Dietrich PharmD [address] [place] [address] Pharmacist Internal Medicine 11/10/23 [employer] 12/20/23 documented as of this encounter
--- OUTSIDE RECORDS SUMMARY | 2024-07-22 09:40 | XMS_ITS | Encounter Summary ---
Author Organization [employer] Address 75 [facility] 7t [place] [address] Care Team Providers Care Balance And Hairspring Assembler Name Role Phone Angela Luz MD Primary Care Provide r Ninfa Dietrich PharmD Unavailable Reason for Visit * Reason Onset Date Comments Med Refill 11/11/2022 Encounter Details Date Type Department Care Team (Late st Contact Info) Description 11/11/2022 Refill [facility] MEDICINE [address] [place], [place] [phone] Angela Luz MD 230 [place], [place] [phone] Other chronic pain Social History Tobacco Use [...] suspected to have Coronavirus/COVID-19? No / Unsure 10/20/2022 8:34 AM EDT documented as of this encounter Plan of Treatment Upcoming Encounters Date Type Department Care Team (Late st Contact Info) Description 07/23/2024 9:00 AM EST Telemedicine [address] [address] Ninfa Dietrich PharmD [address] [place] [address] 08/21/2024 10:30 AM EDT Clinical Support [address] [address] Nazia Martins RN documented as of this encounter Visit Diagnoses Diagnosis Other chronic pain documented in this encounter Care Teams Balance And Hairspring Assembler Relationship Specialty Start Date End Date Angela Luz MD [address] [place] [address] PCP - General Family Medicine 10/27/20 Ninfa Dietrich PharmD [address] [place] [address] Pharmacist Internal Medicine 11/10/23 [employer] 12/20/23 documented as of this encounter
--- OUTSIDE RECORDS SUMMARY | 2024-07-22 09:40 | XMS_ITS | Encounter Summary ---
Author Organization [employer] Address 75 [facility] 7t [place] [address] Care Team Providers Care Computer Information Systems Professor Name Role Phone Angela Luz MD Primary Care Provide r Ninfa Dietrich PharmD Unavailable [phone] Reason for Visit * Reason Comments Med Refill Encounter Details Date Type Department Care Team ([facility] st Contact Info) Description 03/21/2023 Refill [facility] MEDICINE 230 [place], [place] [phone] Angela Luz MD 230 [place], [place] [phone] Other chronic pain Social History Tobacco Use [...] Info) Description 07/23/2024 9:00 AM EST Telemedicine [facility] MEDICINE [address] [place] [address] Ninfa Dietrich PharmD [address] [place] [address] 08/21/2024 10:30 AM EDT Clinical Support [address] [address] Nazia Martins RN documented as of this encounter Visit Diagnoses Diagnosis Other chronic pain documented in this encounter Care Teams Computer Information Systems Professor Relationship Specialty Start Date End Date Angela Luz MD [address] [place] [address] PCP - General Family Medicine 10/27/20 Ninfa Dietrich, PharmD [address] [place] [phone] Pharmacist Internal Medicine 11/10/23 [employer] 12/20/23 documented as of this encounter
--- OUTSIDE RECORDS SUMMARY | 2024-07-22 09:40 | XMS_ITS | Encounter Summary ---
Author Organization [employer] Address [address] [facility] [address] 7t [place] [address] Care Team Providers Care Lead Caster Name Role Phone Angela Luz MD Primary Care Provide r Ninfa Dietrich PharmD Unavailable Reason for Visit * Reason Onset Date Comments [place] 03/28/2023 Encounter Details Date Type Department Care Team ([facility] st Contact Info) Description 03/28/2023 Telephone [facility] [address] [place] [address] Percy Dennison, DMD [address] [place], [place] [phone] [place] Social History Tobacco Use Types Packs/Day Years [...] encounter Miscellaneous Notes * Telephone Encounter - Mala Herring - 03/28/2023 10:34 AM EST Allen from [employer] looking for shade of denture. [phone]. Pls contact lab documented in this encounter Plan of Treatment Upcoming Encounters Date Type Department Care Team (Late st Contact Info) Description 07/23/2024 9:00 AM EST Telemedicine [facility] [address] [place] [address] Ninfa Dietrich PharmD [address] [place] [address] 08/21/2024 10:30 AM EDT Clinical Support [facility] [address] [place] [address] Nazia Martins RN documented as of this encounter Visit Diagnoses Not on filedocumented in this encounter Care Teams Lead Caster Relationship Specialty Start Date End Date Angela Luz MD [address] [place] [address] [phone] PCP - General Family Medicine 10/27/20 Ninfa Dietrich PharmD [address] [place] [address] Pharmacist Internal Medicine 11/10/23 [employer] 12/20/23 documented as of this encounter
--- OUTSIDE RECORDS SUMMARY | 2024-07-22 09:40 | XMS_ITS | Encounter Summary ---
Author Organization [employer] Address [address] [facility] 7t [place] [address] Care Team Providers Care Sports Centre Manager Name Role Phone Angela Luz MD Primary Care Provide r Ninfa Dietrich PharmD Unavailable Reason for Visit * Reason Comments Med Refill Encounter Details Date Type Department Care Team (Late Contact Info) Description 09/13/2022 Refill [facility] [address] [place] [address] Angela Luz MD [address] [place], [place] [phone] Other chronic pain Social History Tobacco Use [...] Info) Description 07/23/2024 9:00 AM EST Telemedicine [facility] [address] [place], [place] [phone] Ninfa Dietrich, PharmD [address] [place] [address] 08/21/2024 10:30 AM EDT Clinical Support [facility] [address] [place] [address] Nazia Martins RN documented as of this encounter Visit Diagnoses Diagnosis Other chronic pain documented in this encounter Care Teams Sports Centre Manager Relationship Specialty Start Date End Date Angela Luz MD [address] [place] [address] PCP - General Family Medicine 10/27/20 Ninfa Dietrich PharmD [address] [place] [address] Pharmacist Internal Medicine 11/10/23 [employer] 12/20/23 documented as of this encounter
--- OUTSIDE RECORDS SUMMARY | 2024-07-22 09:40 | XMS_ITS | Encounter Summary ---
Author Organization [employer] Address [address] [facility] [address] 7t [place] [address] Care Team Providers Care Complaint Manager Name Role Phone Angela Luz MD Primary Care Provide r Ninfa Dietrich PharmD Unavailable [phone] Reason for Visit * Reason Onset Date Comments Med Refill 05/30/2023 Encounter Details Date Type Department Care Team (Late st Contact Info) Description 05/30/2023 Refill [facility] PEDS [address] [place], [place] [phone] Balwinder Kumar MD 230 [place], [place] [phone] Seasonal allergic rhinitis, unspecified trigger Social History Tobacco Use Types Packs/Day Years [...] Info) Description 07/23/2024 9:00 AM EST Telemedicine [facility] MED[facility] [address] [place] [address] Ninfa Dietrich PharmD [address] [place] [address] 08/21/2024 10:30 AM EDT Clinical Support [address] [address] Nazia Martins RN documented as of this encounter Visit Diagnoses Diagnosis Seasonal allergic rhinitis, unspecified trigger documented in this encounter Care Teams Complaint Manager Relationship Specialty Start Date End Date Angela Luz MD [address] [place] [address] PCP - General Family Medicine 10/27/20 Ninfa Dietrich PharmD [address] [place] [address] [phone] Pharmacist Internal Medicine 11/10/23 [employer] 12/20/23 documented as of this encounter
--- OUTSIDE RECORDS SUMMARY | 2024-07-22 09:40 | XMS_ITS | Encounter Summary ---
Author Organization [employer] Address 75 [facility] 7t [place] [address] Care Team Providers Care Softlines Supervisor Name Role Phone Angela Luz MD Primary Care Provide r Ninfa Dietrich PharmD Unavailable Reason for Visit * Reason Comments Med Refill Encounter Details Date Type Department Care Team (Late Contact Info) Description 12/05/2022 Refill [facility] MEDICINE 230 [place] [address] Gemiin Lagunas MD 230 [place], [place] [phone] Type 2 diabetes mellitus with unspecified complications (CMS/HCC) Social History Tobacco Use Types Packs/Day [...] Description 07/23/2024 9:00 AM EST Telemedicine [facility] MEDICINE 230 [place], [place] [phone] Ninfa Dietrich PharmD [address] [place] [address] 08/21/2024 10:30 AM EDT Clinical Support [facility] [address] [place] [address] Nazia Martins RN documented as of this encounter Visit Diagnoses Diagnosis Type 2 diabetes mellitus with unspecified complications (CMS/HCC) documented in this encounter Care Teams Softlines Supervisor Relationship Specialty Start Date End Date Angela Luz MD [address] [place] [address] PCP - General Family Medicine 10/27/20 Ninfa Dietrich PharmD [address] [place] [address] Pharmacist Internal Medicine 11/10/23 [employer] 12/20/23 documented as of this encounter
--- OUTSIDE RECORDS SUMMARY | 2024-07-22 09:40 | XMS_ITS | Encounter Summary ---
Author Organization [employer] Address [address] [facility] 7t [place] [address] Care Team Providers Care Order Booker Name Role Phone Angela Luz MD Primary Care Provide r Ninfa Dietrich PharmD Unavailable Reason for Visit * Reason Comments Med Refill Encounter Details Date Type Department Care Team (Late st Contact Info) Description 10/26/2022 Refill [facility] MED[facility] 230 [place], [place] [phone] Angela Luz MD 230 [place], [place] [phone] Type 2 diabetes mellitus with other specified complication, unspecified whether detention insulin use ([facility]) Social History Tobacco Use Types Packs/Day Years [...] Info) Description 07/23/2024 9:00 AM EST Telemedicine [address] [address] Ninfa Dietrich PharmD [address] [place] [address] 08/21/2024 10:30 AM EDT Clinical Support [address] [address] Nazia Martins, DIAMOND documented as of this encounter Visit Diagnoses Diagnosis Type 2 diabetes mellitus with other specified complication, unspecified whether medical terminologist insulin use ([facility]) documented in this encounter Care Teams Order Booker Relationship Specialty Start Date End Date Angela Luz MD [address] [place] [address] PCP - General Family Medicine 10/27/20 Ninfa Dietrich PharmD [address] [place] [address] Pharmacist Internal Medicine 11/10/23 [email or web address] 12/20/23 documented as of this encounter
--- OUTSIDE RECORDS SUMMARY | 2024-07-22 09:40 | XMS_ITS | Encounter Summary ---
Author Organization [employer] Address [address] [facility] [address] [address] 7t [place] [address] Care Team Providers Care Loan Supervisor Name Role Phone Angela Luz MD Primary Care Provide r Ninfa Dietrich PharmD Unavailable [phone] Reason for Visit * Reason Comments Med Refill Encounter Details Date Type Department Care Team (Late st Contact Info) Description 03/24/2023 Refill [facility] 230 [place], [place] [phone] Angela Luz MD 230 [place], [place] [phone] Cervical spondylosis with radiculopathy Social History Tobacco [...] Info) Description 07/23/2024 9:00 AM EST Telemedicine [facility] MEDICINE [address] [place] [address] Ninfa Dietrich PharmD [address] [place] [address] 08/21/2024 10:30 AM EDT Clinical Support [address] [address] Nazia Martins RN documented as of this encounter Visit Diagnoses Diagnosis Cervical spondylosis with radiculopathy Cervical spondylosis with myelopathy documented in this encounter Care Teams Loan Supervisor Relationship Specialty Start Date End Date Angela Luz MD [address] [place] [address] PCP - General Family Medicine 10/27/20 Ninfa Dietrich, LauraD [address] [place] [address] Pharmacist Internal Medicine 11/10/23 [employer] 12/20/23 documented as of this encounter
--- OUTSIDE RECORDS SUMMARY | 2024-07-22 09:40 | XMS_ITS | Encounter Summary ---
Author Organization [employer] Address [address] [facility] [address] 7t [place] [address] Care Team Providers Care Dining Host Name Role Phone Angela Luz MD Primary Care Provide r Ninfa Dietrich PharmD Unavailable [phone] Reason for Visit * Reason Comments Med Refill Encounter Details Date Type Department Care Team (Late st Contact Info) Description 09/27/2023 Refill [facility] CH[facility] MED & PEDS [address] [place], [place] [phone] Angela Luz MD 230 [place], [place] [phone] Seasonal allergic rhinitis, unspecified trigger; Other chronic pain Social History Tobacco Use [...] Info) Description 07/23/2024 9:00 AM EST Telemedicine [address] [address] Ninfa Dietrich PharmD [address] [place] [address] 08/21/2024 10:30 AM EDT Clinical Support [address] [address] Nazia Martins RN documented as of this encounter Goals Goal Patient Goal Type Associated Problems Recent Progress Patient-Stated? Author Blood Pressure < 140/90 Blood Pressure 142/44(2024 10:39 AM EST) No Ady Araujo Hemoglobin A1c < 8 Result Component 6.9( 10:18 AM EST) No Ady Araujo Note: Comorbidities: CHF, CKD, cirrhosis documented as of this encounter Visit Diagnoses Diagnosis Seasonal allergic rhinitis, unspecified trigger Other chronic pain documented in this encounter Care Teams Dining Host Relationship Specialty Start Date End Date Angela Luz MD [address] [place] [address] PCP - General Family Medicine 10/27/20 Ninfa Dietrich PharmD 230 [place] [address] Pharmacist Internal Medicine 11/10/23 [employer] 12/20/23 documented as of this encounter
--- OUTSIDE RECORDS SUMMARY | 2024-07-22 09:40 | XMS_ITS | Encounter Summary ---
Author Organization [employer] Address [address] [facility] 7t [place] [address] Care Team Providers Care Casting Technician Name Role Phone Angela Luz MD Primary Care Provide r Ninfa Dietrich PharmD Unavailable Reason for Visit * Reason Onset Date Comments Med Refill 04/03/2023 Encounter Details Date Type Department Care Team (Late st Contact Info) Description 04/03/2023 Refill [facility] MEDICINE [address] [place], [place] [phone] Angela Luz MD 230 [place], [place] [phone] Type 2 diabetes mellitus with other specified complication, unspecified whether skilled nursing insulin use ([facility]) Social History Tobacco Use Types Packs/Day Years Used Date Smoking Tobacco: Never Passive Smoke Exposure: Never Smokeless Tobacco: Never Alcohol Use Standard Drinks/Week Comments Never 0 (1 standard drink = 0.6 oz pur e alcohol) Housing Stability Answer Date Recorded What is your housing situation today? I have [place] 03/07/[address] you li [...] Info) Description 07/23/2024 9:00 AM EST Telemedicine [facility] MEDICINE [address] [place] [address] Ninfa Dietrich PharmD [address] [place] [address] 08/21/2024 10:30 AM EDT Clinical Support [address] [address] Nazia Martins, DIAMOND documented as of this encounter Visit Diagnoses Diagnosis Type 2 diabetes mellitus with other specified complication, unspecified whether skilled nursing insulin use ([facility]) documented in this encounter Care Teams Casting Technician Relationship Specialty Start Date End Date Angela Luz MD [address] [place] [address] PCP - General Family Medicine 10/27/20 Ninfa Dietrich PharmD [address] [place] [address] Pharmacist Internal Medicine 11/10/23 [employer] 12/20/23 documented as of this encounter
--- OUTSIDE RECORDS SUMMARY | 2024-07-22 09:40 | XMS_ITS | Encounter Summary ---
Author Organization [employer] Address 75 [facility] 7t [place] [address] Care Team Providers Care Cement Mason Apprentice Name Role Phone Angela Luz MD Primary Care Provide r Ninfa Dietrich PharmD Unavailable Reason for Visit * Reason Comments Med Refill Encounter Details Date Type Department Care Team (Late Contact Info) Description 12/05/2022 Refill [facility] CH[facility] MED & PEDS 505 [place] [address] Angela Luz MD 230 [place] [address] Diabetic polyneuropathy associated with type 2 diabetes mellitus (CMS/HCC); Primary hypertension; Chronic right-sided thoracic back pain Social History Tobacco Use Types Packs/Day [...] Info) Description 07/23/2024 9:00 AM EST Telemedicine [address] [address] Ninfa Dietrich PharmD [address] [place] [address] 08/21/2024 10:30 AM EDT Clinical Support [address] [address] Nazia Martins RN documented as of this encounter Visit Diagnoses Diagnosis Diabetic polyneuropathy associated with type 2 diabetes mellitus (CMS/HCC) Primary hypertension Unspecified essential hypertension Chronic right-sided thoracic back pain documented in this encounter Care Teams Cement Mason Apprentice Relationship Specialty Start Date End Date Angela Luz MD [address] [place] [address] PCP - General Family Medicine 10/27/20 Ninfa Dietrich PharmD [address] [place] [address] Pharmacist Internal Medicine 11/10/23 [employer] 12/20/23 documented as of this encounter
--- OUTSIDE RECORDS SUMMARY | 2024-07-22 09:40 | XMS_ITS | Clinical Summary ---
Author Organization [facility] Address [address] [place] [address] Care Team Providers Care Pipe Insulator Helper Name Role Phone Angela Luz MD [...] MG tablet Take 1 tablet by mouth 8 Active anastrozole (ARIMIDEX) 1 MG chemo tablet Take 1 mg by mouth 1 (one) time each day Swallow whole with a drink of water. Active amLODIPine (NORVASC) 10 MG tablet Take 0.5 tablets (5 mg total) by mouth 1 (one) time each day 90 tablet 3 1 Active aspirin (ST IRAM) 81 MG EC tablet Take 81 mg by mouth 1 (one) time each day 0 Active FeroSul 325 (65 Fe) MG tablet Take 1 tablet by mouth every other day 1 Active folic acid (FOLVITE) 1 MG tablet Take 1 tablet by mouth 1 (one) time each day 1 Active hydrALAZINE 50 MG tablet Take 50 mg by mouth 3 (three) times a day with meals 1 Active isosorbide dinitrate (ISORDIL) 20 MG tablet Take 20 mg by mouth 3 times a day 1 Active metoprolol tartrate 25 MG tablet Take 1 tablet by mouth 3 times a day 1 Active mirtazapine (REMERON) 7.5 MG tablet Take 7.5 mg by mouth every night Active oxyCODONE-acet aminophen (PERCOCET) 5-325 MG per tablet Take 1 [...] mouth 1 (one) time each day Active cholecalcifero l (VITAMIN D-3) 125 MCG (5000 UT) capsule Take 5,000 Units by mouth 1 (one) time each day Active carvedilol (COREG) 6.25 MG tablet Take 6.25 mg by mouth 1 (one) time each day 1 Active atorvastatin (LIPITOR) 40 MG tablet Take 40 mg by mouth at bed time at bedtime 1 Active insulin aspart (NovoLOG) 100 UNIT/ML injection Inject under the skin 3 (three) times a day before meals 24-36 units Active Torsemide 40 MG tablet Take 40 mg by mouth in the morning and 40 mg before bedtime. 180 tablet 3 3 Active calcitriol (ROCALTROL) 0.25 MCG capsule TAKE 1 CAPSULE BY MOUTH EVERY OTHER DAY IN THE MORNING 45 capsule 4 Active Farxiga 10 MG tablet TAKE 1 TABLET BY MOUTH EVERY MORNING 90 tablet 3 4 Active torsemide (DEMADEX) 20 MG tabletIndicati ons:Hypertensi on,Type 2 diabetes mellitus with diabetic chronic kidney disease (HCC),Anemia in chronic kidney disease,Iron deficiency anemia, not otherwise specified TAKE 1 TABLET BY MOUTH TWICE DAILY IN THE MORNING AND IN THE EVENING 180 tablet 2 5 Active torsemide (DEMADEX) 20 MG tabletIndicati ons:Hypertensi on,Type 2 diabetes mellitus with diabetic chronic kidney disease (HCC),Anemia in chronic kidney disease,Iron deficiency anemia, not otherwise specified Take 1 tablet (20 mg total) by mouth in the morning and 1 tablet (20 mg total) in the evening. 180 tablet 2 4 06/27/19 25 Discontinued Active Problems Problem Noted Date Diagnosed [...] 06/11/2012 Overview (07/20/2020): 01/[address] in [place] Last CT (abd) 06/02/12 - 5x7 pulm nodule, recommended rpt CT to confirm 2 years of stability. Obstructive sleep apnea 01/31/201212/21 Restless legs 10/06/2011 01/11/2021 Glaucoma 02/15/2011 01/11/2021 Hyperlipidemia 02/15/2011 01/11/2021 Encounters Date Type Department Care Team Description 06/26/2024 Refill [facility] [address] [place] [address] Beau Vargas MD Hypertension; Type 2 diabetes mellitus with diabetic chronic kidney disease (HCC); Anemia in chronic kidney disease; Iron deficiency anemia, not otherwise specified 05/01/2024 Refill [facility] [address] [place] [address] Beau Vargas MD from Last 3 Months [...] Visit [facility] [address] [place] [address] Beau Vargas MD [address] [facility] [address] [place] [phone] Health Maintenance Due Date Last Done Comments [...] 03/26/2024, , 03/14/2020, Additional history exists Insurance [facility] ([id number]) [place] [id number] [address] [facility] [place] [address] [facility] ([id number]) Care Teams Pipe Insulator Helper Relationship Specialty Start Date End Date Angela Luz MD [address] [place] [phone] PCP - General Internal Medicine 01/12/21
--- OUTSIDE RECORDS SUMMARY | 2024-07-22 09:40 | XMS_ITS | Encounter Summary ---
Author Organization [employer] Address [address] [facility] [address] 7t [place] [address] Care Team Providers Care Funeral Home Attendant Name Role Phone Angela Luz MD Primary Care Provide r Ninfa Dietrich PharmD Unavailable Reason for Visit * Reason Comments Med Refill Encounter Details Date Type Department Care Team (Late st Contact Info) Description 02/15/2024 Refill [facility] CH[facility] MED & PEDS [address] [place], [place] [phone] Angela Luz MD 230 [place], [place] [phone] Seasonal allergic rhinitis, unspecified trigger Social History [...] 07/23/2024 9:00 AM EST Telemedicine [facility] MEDICINE [address] [place] [address] Ninfa Dietrich PharmD [address] [place] [address] 08/21/2024 10:30 AM EDT Clinical Support [address] [address] Nazia Martins RN documented as of this [...] trigger documented in this encounter Care Teams Funeral Home Attendant Relationship Specialty Start Date End Date Angela Luz MD [address] [place] [address] PCP - General Family Medicine 10/27/20 Ninfa Dietrich, LauraD 230 [place] [address] Pharmacist Internal Medicine 11/10/23 [employer] 12/20/23 documented as of this encounter
--- OUTSIDE RECORDS SUMMARY | 2024-07-22 09:40 | XMS_ITS | Encounter Summary ---
Author Organization [employer] Address [address] [facility] 7t [place] [address] Care Team Providers Care Dye Range Operator Cloth Name Role Phone Angela Luz MD Primary Care Provide r Ninfa Dietrich PharmD Unavailable [phone] Reason for Visit * Reason Onset Date Comments Med Refill 12/04/2023 Encounter Details Date Type Department Care Team (Late st Contact Info) Description 12/04/2023 Refill [facility] MEDICINE 230 [place], [place] [phone] Angela Luz MD 230 [place], [place] [phone] Other chronic pain Social History Tobacco Use [...] Info) Description 07/23/2024 9:00 AM EST Telemedicine [facility] MEDICINE [address] [place] [address] Ninfa Dietrich PharmD [address] [place] [address] 08/21/2024 10:30 AM EDT Clinical Support [address] [address] aNzia Martins RN documented as of this encounter [...] pain documented in this encounter Care Teams Dye Range Operator Cloth Relationship Specialty Start Date End Date Angela Luz MD [address] [place] [address] PCP - General Family Medicine 10/27/20 Ninfa Dietrich PharmD [address] [place] [address], [place] [address] Pharmacist Internal Medicine 11/10/23 [employer] 12/20/23 documented as of this encounter
--- OUTSIDE RECORDS SUMMARY | 2024-07-22 09:40 | XMS_ITS | Encounter Summary ---
Author Organization [employer] Address [address] [facility] 7t [place] [address] Care Team Providers Care Administrator Of Home Health Name Role Phone Angela Luz MD Primary Care Provide r Ninfa Dietrich PharmD Unavailable [phone] Reason for Visit * Reason Comments Med Refill Encounter Details Date Type Department Care Team (Late Contact Info) Description 02/22/2023 Refill [facility] MED[facility] 230 [place], [place] [phone] Angela Luz MD 230 [place], [place] [phone] Type 2 diabetes mellitus with stage 3 [...] AM EST Telemedicine [facility] MEDICINE [address] [place] [address] Ninfa Dietrich PharmD [address] [place] [address] 08/21/2024 10:30 AM EDT Clinical Support [address] [address] Nazia Martins RN documented as of this encounter Visit Diagnoses Diagnosis Type 2 diabetes mellitus with stage 3 chronic kidney disease, with long-term current use of insulin, unspecified whether stage 3a or 3b CKD (CMS/HCC) documented in this encounter Care Teams Administrator Of Home Health Relationship Specialty Start Date End Date Angela Luz MD [address] [place] [address] PCP - General Family Medicine 10/27/20 Ninfa Dietrich PharmD [address] [place] [address] Pharmacist Internal Medicine 11/10/23 [employer] 12/20/23 documented as of this encounter
--- OUTSIDE RECORDS SUMMARY | 2024-07-22 09:40 | XMS_ITS | Data Portability ---
Author Organization [employer] [facility], [place] in - [employer] Address [address] [place] [id number] Care Team Providers Care Physical Integration Practitioner Name Role Phone [facility] Referring Provider [phone] Assessment Encounter Date Assessment Date Assessment LastModified [...] Appointments None recorded. Lab CBC 2021 022 odessao [facility] (Centralized Electronic Ordering - All Locations), Patient Can Go To The Location Of Their Choice, [address] 11:32:54 Referral None recorded. Procedures None recorded. Surgeries None recorded. Imaging None recorded. Medication Orders torsemide 40 mg tablet 2021 [facility], [address] [place] [address], [id number], 14:01:21 valacyclovi r 1 gram tablet 2021 [facility], [address] [place] [address], [id number], 15:01:13 Patient TargetsNo targets recorded. Patient InstructionsNo instructions recorded. Reason for Referral None Reported. Medical Equipment None Reported. Allergies Allergen ID Allergen Name Allergen Category Reaction Reaction Severity Criticality Documentation Date Start Date Code Code System Note Provider Name and Address Organization Details Recorded Time 8628 latex environme nt,medica tion Not available Not available Not available 03/19/2024 19966 91 RxNorm Not Available [facility] - production [...] % 65 /min 65 /min 12 /min 90254.7 2 g 98.4 [degF] 98 % 98 % 146 mm[Hg] 52 mm[Hg] 146 mm[Hg] 52 mm[Hg] Not Available [facility] - production 11:35:05 Date Recorded Respiratory rate Heart rate Oxygen saturation Oxygen saturation in Arterial blood by Pulse oximetry Body temperature Systolic blood pressure Diastolic blood pressure Provider Name and Address Organization Details Last Updated DateTime 2 18 /min 62 /min 97 % 97 % 98.1 [degF] 135 mm[Hg] 86 mm[Hg] Not Available [facility] - production 13:40:32 Social History None recorded. Functional Status [...] 366 Pete Cunha MD Main - [facility] [address] [place] [phone] 07/27/2021 13:19:49 01/21/2022 11:58:08 Fatigue 36529126 R53.83 5473 Kanchan Meza MD Main - [facility] [address] [place] [phone] 04/11/2022 11:34:58 04/13/2022 12:51:20 Herpes zoster 3242510 B02.9 5556 Remi Ríos MD Main - [address] [phone] 04/13/2022 13:40:15 04/15/2022 10:51:28 Chronic systolic heart failure [id number] I50.22 This 66-year-ol d female with a history of type 2 diabetes and CHP [facility] of [facility] and exertional dyspnea without chest pain. Her EKG was unremarkab le. I ordered Lasix 40 mg IV and I called in a refill for her Demadex 40 mg bid. She will follow-up with her PCP. She will call 911 if her condition worsens. The patient agreed with this plan. Hyperglyce renato due to type 2 diabetes mellitus [id number] E11.65 This 66-year-ol d female with poorly [...] Jin Member ID Guarantor Name 07/27/2021 1 [facility] - DOS PRIOR TO 2022 - DUAL ELIGIBLE (MEDICARE REPLACEMENT/ADV ANTAGE - HMO) Angela Dominguez Josh [id number] Angela Dominguez Josh 04/11/2022 1 [facility] - DOS PRIOR TO 2022 - DUAL ELIGIBLE (MEDICARE REPLACEMENT/ADV ANTAGE - HMO) Angela Dominguez Moreno [id number] Angela Dominguez Moreno 04/13/2022 1 [facility] - DOS PRIOR TO 2022 - DUAL ELIGIBLE (MEDICARE REPLACEMENT/ADV ANTAGE - HMO) Angela Dominguez Moreno [id number] Angela Paza Notes Date Note Type Note [...] increased LE swelling. Pete Cunha MD [address] [facility],[address], [place], [phone], [employer] 07/27/2021 15:37:23 04/11/2022 text/html HPI: 66 y/o [...] ................... ................... ................... ................... ................... ................... ........ Mail Manager Note: Dispatched to the home of 66-year-old [...] ................... ........ Disposition: Fulfilled Kanchan Meza MD [address] [place] [address],[address] [facility], [place], [phone], [employer] 04/13/2022 09:19:05 04/13/2022 text/html HPI: This RN who has not seen member with hx. of CHF since 12/22/21 received call from member's daughter Nora, who reports member has had a 5lb. weight gain in the past 2 days with some increased SOB. Daughter did call allergy and immunology chief who is not in the office. ................... ................... ................... ................... ................... ................... ................... ........ CRC Nursing Assessment: Comments: CRC RN DID NOT NEED FURTHER INFO Remi Ríos MD [address] [place] [address],[address], [place], [phone], [facility] - [facility] 04/13/2022 13:53:09 OBGyn Episode No OBEpisode recorded.
--- OUTSIDE RECORDS SUMMARY | 2024-07-22 09:40 | XMS_ITS | Encounter Summary ---
Author Organization [employer] Address [address] [facility] [address] [place] [address] Care Team Providers Care Supervisor Boiler Repair Name Role Phone Angela Luz MD Primary Care Provide r Ninfa Dietrich PharmD Unavailable [phone] Encounter Details Date Type Department Care Team (Late st Contact Info) Description 08/30/[address] [facility] MED[facility]INE [address] [place] [address] Lacie Mtz, DIAMOND [address] [place] [address] Social History Tobacco Use Types Packs/Day Years [...] encounter Miscellaneous Notes * Telephone Encounter - Lacie Mtz RN - 08/30/2022 5:08 PM EDT Pt requesting DM RV. Pt seen 07/[address] Conrell for DM. Will task to team MA's to follow up and schedule as needed. documented in this encounter Plan of Treatment Upcoming Encounters Date Type Department Care Team (Late st Contact Info) Description 07/23/2024 9:00 AM EST Telemedicine [address] [address] Ninfa Dietrich PharmD [address] [place] [phone] 08/21/2024 10:30 AM EDT Clinical Support [address] [address] Nazia Martins RN documented as of this encounter Visit Diagnoses Not on filedocumented in this encounter Care Teams Supervisor Boiler Repair Relationship Specialty Start Date End Date Angela Luz MD [address] [place] [phone] PCP - General Family Medicine 10/27/20 Ninfa Dietrich, LauraD [address] [place] [phone] Pharmacist Internal Medicine 11/10/23 [place] 12/20/23 documented as of this encounter
--- OUTSIDE RECORDS SUMMARY | 2024-07-22 09:40 | XMS_ITS | Encounter Summary ---
Author Organization [employer] Address [address] [facility] [address] [place] [address] Care Team Providers Care Meter Changes Records Clerk Name Role Phone Angela Luz MD Primary Care Provide r Ninfa Dietrich PharmD Unavailable Reason for Visit * Reason Comments Med Refill Encounter Details Date Type Department Care Team ([facility] Contact Info) Description 06/30/2022 Refill [facility] MED & PEDS [address] [place] [address] Yunier Mohr MD [address] [place] [address] Seasonal allergic rhinitis, unspecified trigger Social History [...] Upcoming Encounters Date Type Department Care Team ([facility] Contact Info) Description 07/23/2024 9:00 AM EST Telemedicine [address] [address] Ninfa Dietrich PharmD [address] [place] [phone] 08/21/2024 10:30 AM EDT Clinical Support [address] [address] Nazia Martins RN documented as of this encounter Visit Diagnoses Diagnosis Seasonal allergic rhinitis, unspecified trigger documented in this encounter Care Teams Meter Changes Records Clerk Relationship Specialty Start Date End Date Angela Luz MD [address] [place] [phone] PCP - General Family Medicine 10/27/20 Ninfa Dietrich PharmD [address] [place] [phone] Pharmacist Internal Medicine 11/10/23 [facility] 12/20/23 documented as of this encounter
--- OUTSIDE RECORDS SUMMARY | 2024-07-22 09:40 | XMS_ITS | Encounter Summary ---
Author Organization [employer] Address [address] [facility] [address] [place] [address] Care Team Providers Care Cafeteria Or Lunchroom Checker Name Role Phone Angela Luz MD Primary Care Provide r Ninfa Dietrich PharmD Unavailable [phone] Reason for Visit * Reason Onset Date Comments Med Refill 05/30/2023 Encounter Details Date Type Department Care Team (Late st Contact Info) Description 05/30/2023 Refill [facility] MED & PEDS [address] [place], [place] [phone] Angela Luz MD [address] [place], [place] [phone] Primary hypertension Social History Tobacco Use Types [...] Info) Description 07/23/2024 9:00 AM EST Telemedicine [facility] MED[facility]INE [address] [place] [phone] Ninfa Dietrich PharmD [address] [place] [phone] 08/21/2024 10:30 AM EDT Clinical Support [address] [address] Nazia Martins RN documented as of this encounter Visit Diagnoses Diagnosis Primary hypertension Unspecified essential hypertension documented in this encounter Care Teams Cafeteria Or Lunchroom Checker Relationship Specialty Start Date End Date Angela Luz MD [address] [place] [phone] PCP - General Family Medicine 10/27/20 Ninfa Dietrich PharmD [address] [place] [address] [phone] Pharmacist Internal Medicine 11/10/23 [facility] 12/20/23 documented as of this encounter
== END 2024-07-22 09:50 | disposition home or self-care (01) ==
PROVIDERS: PCP Internal Medicine; Visit Provider Internal Medicine Gastroenterology
DX: D64.9 Anemia, unspecified (principal); R10.13 Epigastric pain
CPT/HCPCS: 99214

== ENCOUNTER 2024-07-30 07:58 | Outpatient (REF) | payer OTHER, SELFPAY ==
--- OUTSIDE RECORDS SUMMARY | 2024-07-30 08:15 | XMS_ITS ---
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) Active confirmed Recommended by CDI Problem 650252489032572 Drug induced constipation (K59.03) Active confirmed Recommended by CDI Vital Signs Heart Rate 60 /min 06/24/2024 Blood pressure systolic 116 mm Hg 06/24/19 25 Blood pressure diastolic 50 mm Hg 025 Respiratory Rate 16 /min 06/24/2024 Oximetry 99 % 06/24/2024 Height 59 in 06/24/2024 Height-cm 149.86 cm 06/24/2024 Encounters Encounter Location Date Provider Diagnosis [address] [phone] 06/24/2024 Dunia Trevino 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.22 ; Chronic kidney disease, stage 4 (severe) N18.4 ; shelter (current) use of insulin Z79.4 ; shelter current use of oral hypoglycemic drug Z79.84 [...] N18.4 Chronic kidney disease, stage IV (severe)Z79.4 shelter (current) use of kqhjsmpW72.84 Long-term current use of oral hypoglycemic zghthU48.85 Long-term current use of injectable non-insulin antidiabetic drugs-Patient follows closely with an welder apprentice combination. She has a continuous glucose monitor. Her A1c is now around 7. She also follows with a integrated program teacher. Would continue current medications for now. 06/24/2024 Chronic kidney disease, stage 4 (severe) (ICD-10 - N18.4) 06/24/2024 shelter (current) use of insulin (ICD-10 - Z79.4) 06/24/2024 shelter current use of oral hypoglycemic drug (ICD-10 - Z79.84) 06/24/2024 Long-term current use of injectable noninsulin antidiabetic medication (ICD-10 - Z79.85) 06/24/2024 Osteoarthritis of multiple joints (ICD-10 - M15.9) - Patient has osteoarthritis. She is going to see the orthopedic at [facility] on for her issues with her left [...] She follows closely with her PCP and supervisor plastics. She also follows with a integrated program teacher for CKD 4. Would continue current medications for now. She denies any major symptoms associated with these diagnoses 06/24/2024 Chronic heart failure with preserved ejection fraction (ICD-10 - I50.32) Plan Of Treatment Treatment Notes Assessment Notes Type 2 diabetes mellitus wit h diabetic chronic kidney disease N18.4 Chronic kidney disease, stage IV (severe)Z79.4 shelter (current) use of lhjgmtyM58.84 Long-term current use of oral hypoglycemic ihjstX33.85 Long-term current use of injectable non-insulin antidiabetic drugs-Patient follows closely with an welder apprentice combination. She has a continuous glucose monitor. Her A1c is now around 7. She also follows with a integrated program teacher. Would continue current medications for now. Osteoarthritis of multiple joints - Kaitlynn ent has osteoarthritis. She is going to see the orthopedic at [facility] on for her issues with her left [...] She follows closely with her PCP and supervisor plastics. She also follows with a integrated program teacher for CKD 4. Would continue current medications for now. She denies any major symptoms associated with these diagnoses Next Appt Details Follow Up: 09/25/24, Reason: Provider Name:Dunia Cortes, 09/25/2024 10:30:00 AM, [address] [place] [address], [phone], Progress Notes * Angela MATUTE SDOB :1955 (68 yo F)Acc No.[id number]:06/24/2024 Patient:?Helder MATUTE ??External Provider:?Dunia Trevino :1955???Age:68 Y???Sex:Female D ate:06/24/2024 Address:[address] [place] [address], [phone] Pcp:Angela Haley Patient's Default Facility:[facility] Subjective: * Chief Complaints: * ???Chronic Care F/U * HPI: ???History of Present Illness:? Angela Moreno is a 68-year-old female with chronic medical conditions significant for asthma, ROLAN, HTN, CKD 4, DM II w/ fci insulin use, s/p cardiac pacemaker, HLD, CHF, blind left eye, GERD, osteoporosis, JENNIFER, depression. ?. ?She is seen today in her home for [facility] follow up. She overall has been feeling well, aside from her issues with neuropathy and left shoulder pain. She is going to see the orthopedic at [facility] on . They were not able to do injections in the past due to her diabetes, but it is now under control. ?PCP: C ?Planning Advisor: [facility] ?Waredresser: [facility] ?Supervisor Knitting: Dr. More ? Providers: BHN, Psych every 2 mos; therapy every 2 weeks ?Pharmacy: [facility] ?Dobby Loom Chain Pegger: [facility] ?Ortho: [facility] ?Oncology: [facility] ?Podiatry: [facility] [...] CDI?2.?Chronic kidney disease, stage 4 (severe) - N18.4?3.?front counter clerk (current) use of insulin - Z79.4?4.?shelter current use of oral hypoglycemic drug - [...] is going to see the orthopedic at [facility] on for her issues with her left [...] She follows closely with her PCP and supervisor plastics. She also follows with a integrated program teacher for CKD 4. Would continue current medications for now. She denies any major symptoms associated with these diagnoses?? * Procedure Codes:?1159F Medic ation list documented in medical [id number] Review of all medications by a prescribing practitioner or clinical pharmacist documented in the medical [id number] Most recent systolic blood pressure < 130 mm It9993A Most recent diastolic blood pressure < 80 mm [id number] Pain severity quantified; pain present * Follow Up:?09/25/24 Care Plan: * Problems:? * * Sign off status: Completed true * Provider:?Dunia Trevino Date:?06/24/19 Generated for Stephen ying/Nelda/Gita on:?07/30/2024 08:15 AM EDT History and Physical Notes * HPI (History [...]
--- OUTSIDE RECORDS SUMMARY | 2024-07-30 08:15 | XMS_ITS | Encounter Summary ---
Author Organization [employer] Address [address] [facility] [address] 7t [place] [address] Care Team Providers Care Manager Of Maintenance Name Role Phone Angela Luz MD Primary Care Provide r Ninfa Dietrich PharmD Unavailable [phone] Reason for Visit * Reason Comments Med Refill Encounter Details Date Type Department Care Team (Late st Contact Info) Description 05/30/2023 Refill [facility] MED[facility]INE [address] [place], [place] [phone] Angela Cornell MD 230 [place], [place] [phone] Type 2 diabetes mellitus with stage 3 [...] Care Team (Late st Contact Info) Description 08/07/2024 9:30 AM EDT Medication Management [facility] MED[facility]INE [address] [place] [address] Ninfa Dietrich PharmD [address] [place] [address] 08/21/2024 10:30 AM EDT Clinical Support [facility] [address] [place] [address] Nazia Martins RN documented as of this encounter Visit Diagnoses Diagnosis Type 2 diabetes mellitus with stage 3 chronic kidney disease, with long-term current use of insulin, unspecified whether stage 3a or 3b CKD (CMS/HCC) documented in this encounter Care Teams Manager Of Maintenance Relationship Specialty Start Date End Date Angela Luz MD [address] [place] [address] PCP - General Family Medicine 10/27/20 Ninfa Dietrich PharmD [address] [place] [address] Pharmacist Internal Medicine 11/10/23 [employer] 12/20/23 documented as of this encounter
--- OUTSIDE RECORDS SUMMARY | 2024-07-30 08:15 | XMS_ITS | Encounter Summary ---
Author Organization [employer] Address 75 [facility] 7t [place] [address] Care Team Providers Care Braiding Machine Operator Name Role Phone Angela Luz MD Primary Care Provide r Ninfa Dietrich PharmD Unavailable [phone] Encounter Details Date Type Department Care Team (Late st Contact Info) Description 03/26/2024 Orders Only [facility] MEDICINE 230 [place], [place] [phone] Angela Luz MD 230 [place], [place] [phone] Social History Tobacco Use Types Packs/Day Years [...] Description 08/07/2024 9:30 AM EDT Medication Management [address] [address] Ninfa Dietrich, PharmD [address] [place] [address] 08/21/2024 10:30 AM EDT Clinical Support [address] [address] Nazia Martins, RN documented as of this [...] on filedocumented in this encounter Care Teams Braiding Machine Operator Relationship Specialty Start Date End Date Angela Luz MD [address] [place] [address] PCP - General Family Medicine 10/27/20 Ninfa Dietrich, Shadia [address] [place] [address] Pharmacist Internal Medicine 11/10/23 [employer] 12/20/23 documented as of this encounter
--- OUTSIDE RECORDS SUMMARY | 2024-07-30 08:16 | XMS_ITS | Encounter Summary ---
Author Organization [employer] Address 75 [facility] 7t [place] [address] Care Team Providers Care Director Of Regional Sales Name Role Phone Angela Luz MD Primary Care Provide r Ninfa Dietrich PharmD Unavailable Reason for Visit * Reason Comments Med Refill Encounter Details Date Type Department Care Team ([facility] Contact Info) Description 07/21/2022 Refill [facility] [address] [place], [place] [phone] Ava Winn DO [address] [place], [place] [phone] Other chronic pain Social History Tobacco Use [...] Description 08/07/2024 9:30 AM EDT Medication Management [facility] [address] [place] [address] Ninfa Dietrich PharmD [address] [place] [address] 08/21/2024 10:30 AM EDT Clinical Support [address] [address] Nazia Martins, DIAMOND documented as of this encounter Visit Diagnoses Diagnosis Other chronic pain documented in this encounter Care Teams Director Of Regional Sales Relationship Specialty Start Date End Date Angela Luz MD [address] [place] [address] PCP - General Family Medicine 10/27/20 Ninfa iDetrich PharmD [address] [place] [address] Pharmacist Internal Medicine 11/10/23 [employer] 12/20/23 documented as of this encounter
--- OUTSIDE RECORDS SUMMARY | 2024-07-30 08:16 | XMS_ITS | Encounter Summary ---
Author Organization [employer] Address [address] [facility] [address] 7t [place] [address] Care Team Providers Care Flight Information Expediter Name Role Phone Angela Luz MD Primary Care Provide r Ninfa Dietrich PharmD Unavailable [phone] Reason for Visit * Reason Onset Date Comments Med Refill 05/30/2023 Encounter Details Date Type Department Care Team (Late st Contact Info) Description 05/30/2023 Refill [facility] PEDS [address] [place], [place] [phone] Angela Cornell MD [address] [place], [place] [phone] Diabetic polyneuropathy associated with type 2 diabetes [...] Description 08/07/2024 9:30 AM EDT Medication Management [address] [address] Ninfa Dietrich PharmD [address] [place] [address] 08/21/2024 10:30 AM EDT Clinical Support [address] [address] Nazia Martins, DIAMOND documented as of this encounter Visit Diagnoses Diagnosis Diabetic polyneuropathy associated with type 2 diabetes mellitus (CMS/HCC) documented in this encounter Care Teams Flight Information Expediter Relationship Specialty Start Date End Date Angela Luz MD [address] [place] [address] PCP - General Family Medicine 10/27/20 Ninfa Dietrich PharmD [address] [place] [phone] Pharmacist Internal Medicine 11/10/23 [employer] 12/20/23 documented as of this encounter
--- OUTSIDE RECORDS SUMMARY | 2024-07-30 08:16 | XMS_ITS | Encounter Summary ---
Author Organization [employer] Address [address] [facility] [address] 7t [place] [address] Care Team Providers Care Miniature Set Builder Name Role Phone Angela Luz MD Primary Care Provide r Ninfa Dietrich PharmD Unavailable [phone] Reason for Visit * Reason Onset Date Comments Med Refill 05/30/2023 Encounter Details Date Type Department Care Team (Late st Contact Info) Description 05/30/2023 Refill [facility] MEDICINE 230 [place], [place] [phone] Yunier Mohr MD 230 [place], [place] [phone] Forgetfulness Social History Tobacco Use Types Packs/Day [...] Description 08/07/2024 9:30 AM EDT Medication Management [address] [address] Ninfa Dietrich PharmD [address] [place] [address] 08/21/2024 10:30 AM EDT Clinical Support [address] [address] Naiza Martins RN documented as of this encounter Visit Diagnoses Diagnosis Forgetfulness Other general symptoms documented in this encounter Care Teams Miniature Set Builder Relationship Specialty Start Date End Date Angela Luz MD [address] [place] [phone] PCP - General Family Medicine 10/27/20 Ninfa Dietrich, PharmD [address] [place] [address] [phone] Pharmacist Internal Medicine 11/10/23 [employer] 12/20/23 documented as of this encounter
--- OUTSIDE RECORDS SUMMARY | 2024-07-30 08:16 | XMS_ITS | Encounter Summary ---
Author Organization [employer] Address [address] [facility] [address] 7t [place] [address] Care Team Providers Care Petroleum Refinery Laborer Name Role Phone Angela Luz MD Primary Care Provide r Ninfa Dietrich PharmD Unavailable [phone] Reason for Visit * Reason Onset Date Comments Med Refill 05/30/2023 Encounter Details Date Type Department Care Team (Late st Contact Info) Description 05/30/2023 Refill [facility] 230 [place], [place] [phone] Yunier Mohr MD 230 [place], [place] [phone] Cervical spondylosis with radiculopathy Social History Tobacco [...] Description 08/07/2024 9:30 AM EDT Medication Management [address] [address] Ninfa Dietrich PharmD [address] [place] [address] 08/21/2024 10:30 AM EDT Clinical Support [address] [address] Nazia Martins, DIAMOND documented as of this encounter Visit Diagnoses Diagnosis Cervical spondylosis with radiculopathy Cervical spondylosis with myelopathy documented in this encounter Care Teams Petroleum Refinery Laborer Relationship Specialty Start Date End Date Angela Luz MD [address] [place] [address] PCP - General Family Medicine 10/27/20 Ninfa Dietrich PharmD [address] [place] [phone] Pharmacist Internal Medicine 11/10/23 [employer] 12/20/23 documented as of this encounter
--- OUTSIDE RECORDS SUMMARY | 2024-07-30 08:16 | XMS_ITS | Encounter Summary ---
Author Organization [employer] Address 75 [facility] 7t [place] [address] Care Team Providers Care Yard Conductor Name Role Phone Angela Luz MD Primary Care Provide r Ninfa Dietrich PharmD Unavailable [phone] Reason for Visit * Reason Onset Date Comments Med Refill 06/28/2023 Encounter Details Date Type Department Care Team (Late st Contact Info) Description 06/28/2023 Refill [facility] MEDICINE 230 [place], [place] [phone] Angela Luz MD 230 [place], [place] [phone] Other chronic pain Social History Tobacco Use [...] Description 08/07/2024 9:30 AM EDT Medication Management [address] [address] Ninfa Dietrich PharmD [address] [place] [address] 08/21/2024 10:30 AM EDT Clinical Support [address] [address] Nazia Martins RN documented as of this encounter Visit Diagnoses Diagnosis Other chronic pain documented in this encounter Care Teams Yard Conductor Relationship Specialty Start Date End Date Angela Luz MD [address] [place] [address] PCP - General Family Medicine 10/27/20 Ninfa Dietrich, PharmD [address] [place] [address] [phone] Pharmacist Internal Medicine 11/10/23 [employer] 12/20/23 documented as of this encounter
--- OUTSIDE RECORDS SUMMARY | 2024-07-30 08:16 | XMS_ITS | Clinical Summary ---
Author Organization [employer] Address [address] [facility] [address] [place] [address] Care Team Providers Care Baseball Winder Name Role Phone Angela Luz MD Primary Care Provide r Ninfa Dietrich PharmD Unavailable [phone] Allergies Active Allergy Reactions Criticality Noted Date [...] every 6 hours as needed for wheezing Active plecanatide (Trulance) tablet tablet Take 1 tablet by mouth every day Active ceramides (CeraVe) moisturizing creamIndications :Chronic pruritus Mix with triamcinolone and apply as directed 453 g 1 Active Movantik 12.5 MG tablet TAKE 1 TABLET BY MOUTH EVERY MORNING ON AN EMPTY STOMACH, no FOOD 1 HOUR AFTER OR 2 TO 3 HOURS BEFORE DOSE Active lactulose (Chronulac) 10 GM/15ML solution TAKE 15 ML BY MOUTH EVERY MORNING FOR 10 DAYS 150 mL 1 Active Lancets 33G misc 1 each 2 times daily. Test blood sugar 4 times a day 400 each Active triamcinolone (Kenalog) 0.1 % creamIndications :Chronic pruritus MIX WITH cerave CREAM AND APPLY TO THE AFFECTED AREA(S) TWICE DAILY IN THE MORNING AND AT BEDTIME NEEDED FOR PAIN AND SWELLING 80 g 3 Active glucose blood (FreeStyle Precision Boris Test) test stripIndications :Type 2 diabetes mellitus with stage 3 chronic kidney disease, with long-term current use of insulin, unspecified whether stage 3a or 3b CKD ([facility]) Use to test blood sugar 3 times daily 100 each 12 2024 Active sertraline (Zoloft) 100 MG tablet Take 1 tablet by mouth in the morning. Active glucose (Glutose) 40 % gel oral gelIndications:T ype 2 diabetes mellitus with stage 3 chronic kidney disease, with long-term current use of insulin, unspecified whether stage 3a or 3b CKD (CMS/HCC) Take 15 g by mouth if needed for low blood sugar. 45 g 024 Active glucagon (Baqsimi) 3 MG/DOSE nasal powderIndication s:Type 2 diabetes mellitus with hypoglycemia without coma, with long-term current use of insulin ([facility]) For severe hypoglycemia, administer 3 mg (1 actuation) into 1 nostril. May repeat dose if there has been no response after 15 minutes 2 each 11 Active predniSONE (Deltasone) 5 MG tablet TAKE 4 TABLETS BY MOUTH DAILY FOR FOURTEEN DAYS, 3 TABLET FOR FOURTEEN DAYS, 2 TABLET FOR FOURTEEN DAYS, THEN 1 TABLET FOR FOURTEEN DAYS Active pen needle 32G x 4 mm miscIndications: Type 2 diabetes mellitus with hypoglycemia without coma, with long-term current use of insulin ([facility]) Use for insulin administration three times daily. Use as instructed 100 each 024 2024 Active clotrimazole (Lotrimin) 1 % creamIndications :Type 2 diabetes mellitus with other specified complication, unspecified whether prison insulin use ([facility]) APPLY TOPICALLY TO AFFECTED AREA(S) AND SURROUNDING AREA(S) TWICE DAILY IN THE MORNING AND IN THE EVENING 30 g Active calcitriol (Rocaltrol) 0.25 MCG capsule Take 0.25 mcg by mouth every other day. Active naloxone (Narcan) 4 mg/0.1 mL nasal [...] 6 HOURS NEEDED FOR ITCHING 40 capsule Active fluticasone (Flonase) 50 MCG/ACT nasal sprayIndications :Nasal congestion Administer 1-2 sprays into each nostril 1-2x per day as needed for congestion. Shake gently. Before first use, prime pump. After use, clean tip and replace cap. 16 g Active pregabalin (Lyrica) 75 MG capsuleIndicatio ns:Diabetic polyneuropathy associated with type 2 diabetes mellitus ([facility]/HCC) TAKE 1 CAPSULE BY MOUTH TWICE DAILY IN THE MORNING AND IN THE EVENING 60 capsule 1 Active insulin aspart (NovoLOG FLEXPEN) 100 UNIT/ML penIndications:T ype 2 diabetes mellitus with stage 3 chronic kidney disease, with long-term current use of insulin, unspecified whether stage 3a or 3b CKD ([facility]) USE DIRECTED THREE TIMES DAILY PER SLIDING SCALE <150mg/dL= 0 units,151-199mg/ dL=4 units,200-249mg/ dL=6 units,250-299mg/ dL=8 units,300-349mg/ dL=10 units,350-399mg/ dL=12 units,>400mg/dL 14 units & call offic 15 mL 3 025 Active senna (Senokot) 8.6 MG tabletIndication s:Constipation, unspecified constipation type TAKE 2 TABLETS BY MOUTH EVERY DAY AT BEDTIME NEEDED FOR CONSTIPATION 180 tablet 1 025 Active ursodiol (Actigall) 500 MG tablet TAKE 1 TABLET BY MOUTH TWICE DAILY IN THE MORNING AND IN THE EVENING 60 tablet 025 Active oxyCODONE-acetam inophen (Percocet) 5-325 MG tabletIndication s:Other chronic pain TAKE 1 TABLET BY MOUTH EVERY 6 HOURS NEEDED FOR SEVERE PAIN 112 tablet 025 2024 Active Continuous Glucose Mica Washer Gluer (FreeStyle Jeovany 3 Manteca) deviceIndication s:Type 2 diabetes mellitus with hyperglycemia, with long-term current use of insulin ([facility]) 1 each Once per day. Use as directed for CGM 1 each 025 Active Continuous Glucose Sensor (FreeStyle Jeovany 3 Plus Sensor) miscIndications: Type 2 diabetes mellitus with hyperglycemia, with long-term current use of insulin ([facility]) 1 each every 15 days. Apply 1 every 15 days as directed for CGM 2 each 025 Active losartan (Cozaar) 50 MG tablet Take 50 mg by mouth in the morning. 025 Active Ozempic, 1 MG/DOSE, 4 MG/3ML solution pen-injector Inject 1 MG SUBCUTANEOUSLY EVERY 7 DAYS IN THE ABDOMEN, THIGHS OR UPPER ARM. ROTATE INJECTION SITES. 025 Active insulin degludec (Tresiba FlexTouch) 200 UNIT/ML injectionIndicat ions:Type 2 diabetes mellitus with stage 3 chronic kidney disease, with long-term current use of insulin, unspecified whether stage 3a or 3b CKD (CMS/HCC) INJECT 36 UNITS SUBCUTANEOUSLY ONCE DAILY 025 Active amLODIPine (Norvasc) 10 MG tabletIndication s:Primary hypertension TAKE 1 TABLET BY MOUTH AT BEDTIME 90 tablet 1 025 Active albuterol (2.5 MG/3ML) 0.083% nebulizer solutionIndicati ons:Simple chronic bronchitis (CMS/HCC) INHALE 1 AMPULE USING A NEBULIZER THREE TIMES DAILY 180 mL 3 025 Active esomeprazole (NexIUM) [address] capsule TAKE 1 CAPSULE BY MOUTH EVERY MORNING BEFORE BREAKFAST 30 capsule 025 Active Blood Glucose Monitoring Suppl (FreeStyle Lite) deviceIndication s:Type 2 diabetes mellitus with stage 3 chronic kidney disease, with long-term current use of insulin, unspecified whether stage 3a or 3b CKD (CMS/HCC) Inject under the skin 4 times daily. [...] cleanup (will not trigger notification to Pharmacy)) albuterol (2.5 MG/3ML) 0.083% nebulizer solutionIndicati ons:Simple chronic bronchitis (CMS/HCC) INHALE 1 AMPULE USING A NEBULIZER THREE TIMES DAILY 180 mL 3 024 2024 Discontinued Continuous Glucose Mica Washer Gluer (FreeStyle Jeovany 2 Manteca) deviceIndication s:Type 2 diabetes mellitus with stage 3 chronic kidney disease, with long-term current use of insulin, unspecified whether stage 3a or 3b CKD (CMS/HCC) USE DIRECTED TO TEST BLOOD SUGAR EVERY 8 HOURS 1 each 024 2024 Discontinued amLODIPine (Norvasc) 10 MG tabletIndication s:Primary hypertension TAKE 1 TABLET BY MOUTH AT BEDTIME 90 tablet 1 024 2024 Discontinued Ozempic, 0.25 or 0.5 MG/DOSE, 2 MG/3ML solution pen-injectorIndi cations:Type 2 diabetes mellitus with hyperglycemia, with long-term current use of insulin ([facility]) INJECT 0.5 MG SUBCUTANEOUSLY EVERY 7 DAYS IN THE ABDOMEN, THIGHS, OR UPPER ARM, ROTATE INJECTION SITES. 3 mL 3 024 2024 Discontinued(D ose adjustment) insulin degludec (Tresiba FlexTouch) 200 UNIT/ML injectionIndicat ions:Type 2 diabetes mellitus with stage 3 chronic kidney disease, with long-term current use of insulin, unspecified whether stage 3a or 3b CKD ([facility]) INJECT 44 UNITS SUBCUTANEOUSLY ONCE DAILY 024 2024 Discontinued Ascorbic Acid (vitamin C) 500 MG tabletIndication s:Anemia in chronic kidney disease, unspecified CKD stage TAKE 1 TABLET BY MOUTH EVERY OTHER DAY IN THE MORNING 45 tablet 1 024 2024 Discontinued(T herapy completed) losartan (Cozaar) 25 MG tabletIndication s:Primary hypertension TAKE 1 TABLET BY MOUTH EVERY MORNING 90 tablet 1 025 2024 Discontinued( ed list cleanup (will not trigger notification to Pharmacy)) ursodiol (Actigall) 500 MG tablet TAKE 1 TABLET BY MOUTH TWICE DAILY IN THE MORNING AND IN THE EVENING 60 tablet 025 2024 Discontinued oxyCODONE-acetam inophen (Percocet) 5-325 MG tabletIndication s:Other chronic pain TAKE 1 TABLET BY MOUTH EVERY 6 HOURS NEEDED FOR SEVERE PAIN 112 tablet 025 2024 Discontinued Continuous Glucose Sensor (FreeStyle Jeovany 2 Sensor) miscIndications: Type 2 diabetes mellitus with stage 3 chronic kidney disease, with long-term current use of insulin, unspecified whether stage 3a or 3b CKD ([facility]) USE DIRECTED CHANGE EVERY 14 DAYS 2 each 2 025 2024 Discontinued esomeprazole (NexIUM) [address] capsule TAKE 1 CAPSULE BY MOUTH EVERY MORNING BEFORE BREAKFAST 30 capsule 025 2024 Discontinued(R eorder (will not trigger notification to Pharmacy)) semaglutide (Ozempic, 1 MG/DOSE,) 2 MG/1.5ML solution pen-injectorIndi cations:Type 2 diabetes mellitus with hyperglycemia, with long-term current use of insulin ([facility]) Inject 1 mg under the skin 1 (one) time per week. 2 each 3 025 2024 Discontinued(M ed list cleanup (will not trigger notification to Pharmacy)) Active Problems Problem Noted Date Diagnosed Date [...] dental /optometry In care with pharm for [employer] on colonoscopy, 02/10 mammogram (managed by oncology) [...] is already refer to our pharmacy team [facility] for further medication adjustments Its my medical [...] AM EDT): I will refer patient to tube builder airplane outside after this plan is to refer her to endocrinology Meanwhile c/w same insulin regimen, I agree with discontinuation of trulicluis, extensive discussion about diabetic diet done Assessment [...] current medications - Patient already has seen tube builder airplane diabetes has being challenging to manage I will refer her to endocrinology Assessment & Plan (07/21/2022 12:56 PM EST): Llast A1c was high. Continue current insulins dose XXXXX Continue Farxiga. FU with PCP in 2 months. FU closely with endoscope technician. Assessment & Plan (06/08/2022 1:02 PM EST): Restart Farxiga 10 mg and increase Lantus to 50 units qhs, continue 43 units in the morning. -Continue Humalog sliding scale. -Encouraged to increase small in fraction meals. -Will refer to peer educator and remodeler. -FU with me in 3-4 weeks. Other [...] spondylosis with radiculopathy 03/26/20 18 Overview (04/29/2022): 2011 - Dr Guevara Assessment & Plan (03/02/2023 [...] or stolen. Prescription sent today. FU with [employer]ER nurse. Moderate persistent asthma 08/07/2017 Overview (04/29/2022): [...] 06/11/2012 Overview (04/29/2022): 01/[address] in [place] 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 Pt follow up closely at [facility]/Dr. March. Obtain result of last mammogram. Continue on anastrozole Encounters Date Type Department Care Team Description 07/29/2024 Refill [facility] [address] [place] [address] Angela uLz MD 07/26/2024 Refill [facility] [address] [place] [address] Jasper Avila MD 07/26/2024 Refill [facility] [address] [place] [address] Angela Luz MD Simple chronic bronchitis (CMS/HCC) 07/25/2024 Refill [facility] [address] [place] [address] Angela Luz MD Primary hypertension 07/23/2024 9:00 AM EST Telemedicine [facility] [address] [place] [address] Ninfa Dietrich PharmD Type 2 diabetes mellitus with hyperglycemia, with long-term current use of insulin (CMS/[facility]) (Primary Dx); Type 2 diabetes mellitus with stage 3 chronic kidney disease, with long-term current use of insulin, unspecified whether stage 3a or 3b CKD (CMS/HCC); Primary hypertension 07/22/2024 Orders Only GENERIC EXTERNAL DATA DEPARTMENT Provider, Generic External Data 07/09/2024 Refill [facility] [address] [place] [address] Angela Luz MD Other chronic pain 07/01/2024 Travel 06/29/2024 Refill [facility] [address] [place] [address] Angela Luz MD 06/28/2024 11:15 AM EST Office Visit [facility] [address] [place] [address] Angela Luz MD Primary hypertension (Primary Dx); [...] with long-term current use of insulin (CMS/HCC) 06/28/2024 Travel 06/26/2024 Telephone [facility] [address] [place] [address] Lars Vides MA Chart Prep 06/23/2024 Refill [facility] [address], [place] [phone] Angela Luz MD 06/10/2024 Refill [facility] [address] [place] [address] Angela Luz MD Type 2 diabetes mellitus with stage 3 chronic kidney disease, with long-term current use of insulin, unspecified whether stage 3a or 3b CKD ([facility]/HCC) 06/06/2024 Refill [facility] [address] [place] [address] Angela Luz MD Other chronic pain 05/31/2024 Refill [facility] [address] [place] [address] Angela Luz MD 05/30/2024 Refill [facility] [address] [place] [address] Angela Luz MD Primary hypertension; Constipation, unspecified constipation type 05/28/2024 Refill [facility] [address] [place] [address] Ninfa Dietrich PharmD Type 2 diabetes mellitus with stage 3 chronic kidney disease, with long-term current use of insulin, unspecified whether stage 3a or 3b CKD ([facility]/HCC) 05/16/2024 Refill [facility] [address] [place] [address] Angela Luz MD Diabetic polyneuropathy associated with type 2 diabetes mellitus ([facility]) 05/10/2024 Telephone [facility] [address] [place] [address] Angela Luz MD Med Refill 05/10/2024 Refill [facility] [address] [place], [place] [phone] Angela Luz MD Other chronic pain 05/07/2024 Telephone [facility] [address] [place] [address] [phone] Hortencia Dueñas MD 05/07/2024 Telephone [facility] [address] [place], [place] [phone] oJyce Peñaloza [place] 05/06/2024 9:20 AM EST Office Visit [facility] [address] [place] [address] Hortencia Dueñas MD Cough in adult patient; Acute cough 05/03/2024 Refill [facility] [address] [place] [address] Angela Luz MD 05/01/2024 Refill [facility] [address] [place] [address] Angela Luz MD Anemia in chronic kidney disease, unspecified CKD stage from Last 3 Months Immunizations Name Administration [...] Description 08/07/2024 9:30 AM EDT Medication Management [facility] [address] [place] [phone] Ninfa Dietrich, LauraD [address] [place] [address] 08/21/2024 10:30 AM EDT Clinical Support [facility] [address] [place] [phone] Nazia Martins, RN Health Maintenance Due Date Last Done Comments [...] history exists Depression Screening 12/25/2024 12/26/2023, 12/26/19 Alcohol/Substance Use Screening 03/26/2025 03/26/2024 Mammogram 04/19/2025 [...] 140/90 Blood Pressure 142/44(2024 10:39 AM EST) Ady Chan Hemoglobin A1c < 8 Result Component 6.9( 10:18 AM EST) Ady Chan Note: Comorbidities: CHF, CKD, cirrhosis Procedures Procedure Name Priority Date/Time Associated Diagnosis Comments FERRITIN Routine 07/22/2024 10:21 AM EST COMPREHENSIVE METABOLIC PANEL Routine 07/22/2024 10:21 AM EST PROTHROMBIN TIME-INR Routine 07/22/2024 10:21 AM EST CBC WITH AUTO DIFFERENTIAL Routine 07/22/2024 10:21 AM EST POCT GLUCOSE Routine 06/28/2024 11:07 AM EST Type 2 diabetes mellitus with hyperglycemia, with long-term current use of insulin (CMS/HCC) XR CHEST 2 VIEWS Routine 05/06/2024 10:3 2 AM EST Cough in adult patient POCT INFLUENZA B (ID NOW RAPID MOLECULAR) Routine 05/06/2024 9:42 AM EST Cough in adult patient POCT INFLUENZA A (ID NOW RAPID MOLECULAR) Routine 05/06/2024 9:42 AM EST Cough in adult patient POCT RAPID COVID ANTIGEN Routine 05/06/2024 9:34 AM EST Cough in adult patient POCT GLYCATED HEMOGLOBIN, TOTAL Routine 03/26/2024 10:18 [...] Blood Count 5.2 4.8 - 10.8 X10*3/uL [facility] Red Blood Count 4.45 4.20 - 5.50 X10*6/uL [facility] Hemoglobin 11.7(L) 12.0 - 16.0 g/dl [facility] Hematocrit 35.5(L) 37.0 - 47.0 % [facility] Mean Corpuscular Volume 79.8(L) 80.0 - 98.0 fL [facility] Mean Corpuscular Hemoglobin 26.3(L) 27.0 - 33.0 pg [facility] Mean Corpuscular HGB Conc 33.0 31.0 - 35.0 g/dl [facility] Red Cell Distribution Width 20.4(H) 11.0 - 16.0 % [facility] Platelet Count 141(L) 160 - 400 X10*3/uL [facility] Comment:Test was verified by repeat analysis. Mean Platelet Volume 9.3(L) 9.4 - 12.3 fL [facility] Neutrophils Percent Auto 58.2 45 - 73 % [facility] Imm Gran Pct Auto 0.4 0.0 - 0.4 % [facility] Lymphocytes Percent Auto 27.4 20 - 40 % [facility] Monocytes Percent Auto 7.5 2 - 11 % [facility] Eosinophils Percent Auto 5.7(H) 0 - 4 % [facility] Basophils Percent Auto 0.8 0 - 2 % [facility] NRBC Pct Auto 0.0 0.0 - 0.2 /100WBC [facility] Neutrophils Absolute Auto 3.0 2.0 - 8.3 x10*3/uL [facility] Imm Gran Abs Auto 0.02 0.00 - 0.03 X10*3/uL [facility] Lymphocytes Absolute Auto 1.4 1.2 - 4.9 X10*3/uL [facility] Monocytes Absolute Auto 0.4 0.1 - 1.2 X10*3/uL [facility] Eosinophils Absolute Auto 0.3 0.0 - 0.4 X10*3/uL [facility] Basophils Absolute Auto 0.0 0.0 - 0.2 X10*3/uL [facility] NRBC Abs Auto 0.000 0.0 - 0.012 X10*3/uL [facility] 07/22/2024 10:2 1 AM EST 07/22/2024 10:21 AM EST Generic External Data Provider LAB BLOOD ORDERAB LES Final Result Performing Organization Address [facility] Co de Phone Number [facility] [address] [place] [phone] * Prothrombin Time-INR (07/22/2024 10:21 AM EST) Prothrombin Time 12.0 10.9 - 12.4 SEC [facility] INTERNATIONAL NORM RATIO 1.0 0.9 - 1.1 [facility] Comment:INTERNATIONAL NORMAL IZED RATIO (INR) REFERENCE [...] 1 AM EST 07/22/2024 10:21 AM EST [employer] External Data Provider LAB BLOOD ORDERAB LES Final Result Performing Organization Address [facility] Co de Phone Number [facility] [address] [place] [phone] * (ABNORMAL) Ferritin (07/22/2024 10:21 AM EST) Ferritin 435(H) 10 - 250 ng/mL [facility] 07/22/2024 10:2 1 AM EST 07/22/2024 10:21 AM EST us Generic External Data Provider LAB BLOOD ORDERAB LES Final Result [facility] [address] [place] [phone] * (ABNORMAL) Comprehensive Metabolic Panel (07/22/2024 10:21 AM EST) Sodium 142 135 - 145 mmol/L [facility] Potassium 4.6 3.3 - 5.1 mmol/L [facility] Chloride 103 96 - 108 mmol/L [facility] Carbon Dioxide 29 22 - 29 mmol/L [facility] Anion Gap 15 12 - 20 [facility] Urea Nitrogen (BUN) 36(H) 9 - 16 mg/dL [facility] Creatinine, Serum 1.46(H) 0.5 - 1.4 mg/dL [facility] Estimated Glomerular Filt Rate 36 [facility] Comment:Chronic Kidney Disea se: Estimated GFR < 60 mL/min/[id number] Kidney Disease: Estimated GFR < 15 mL/min/1.73m2 Glucose 105 60 - 115 mg/dL [facility] Calcium 9.6 8.4 - 10.2 mg/dL [facility] Bilirubin, Total 0.5 0.0 - 1.0 mg/dL [facility] Aspartate Amino Transferase 37(H) 5 - 31 U/L [facility] Alanine Aminotransferase 27 0 - 31 U/L [facility] Total Protein 8.1(H) 6.5 - 8.0 g/dL [facility] Albumin Level 4.0 3.5 - 5.0 g/dL [facility] Alkaline Phosphatase 129(H) 39 - 117 U/L [facility] 07/22/2024 10:2 1 AM EST 07/22/2024 10:21 AM EST us Generic External Data Provider LAB BLOOD ORDERAB LES Final Result [facility] [address] [place] [phone] * (ABNORMAL) POCT glucose manually resulted (06/28/2024 11:07 AM EST) Glucose Blood, POC 273(A) 60 - 200 mg/dL [facility] Blood Capillary blood specimen / Unknown 06/28/2024 11:07 AM EST us Angela Haley MD POINT OF CARE TEST EN TER/EDIT ORDERABLES Final Result Performing Organization Address City/State/[facility] Co de Phone Number [facility] [address] [place] [phone] * XR Chest 2 Views (05/06/2024 10:32 AM EST) Anatomical Region Laterality Modality Chest Radiographic [place] ging 05/06/2024 10:3 2 AM EST Narrative 05/06/2024 3:28 PM EST ?[facility] ?[address] ?[place] [address] ?XRay Report ? Signed ? Patient: Angela Cullen ?MR#: ?? [id number] ? : 1955 ?Acct:[id number] ? Age/Sex: 68 / F ?ADM Date: 05/06/24 ? Loc: HO.HHCX ? Attending Dr: Hortencia Dueñas MD ? Ordering Physician: Hortencia Dueñas MD ?? Date of Service: 05/06/24 ?? Procedure(s): XR chest 2V ?? Accession Number(s): [id number] ? cc: Hortencia Dueñas MD ? EXAMINATION: [...] ??05/06/2024 03:25 PM EST ? Dictated By: ?Salaazr Garza MD ? Signed By: ?<Electronically signed by Salazar Garza MD in OV> ?05/06/24 1525 ? DD/ 1032 ? TD/TT: 05/06/24 1040 ? Jewel Stripper: HB ? Procedure Note Donamparoter, Image - 05/06/2024 [place] [address] XRay Report Signed Patient: Angela CullenMR#: [id number] : 5Acct:[id number] Age/Sex: 68 / FADM Date: 05/06/24 Loc: HO.HHCX Attending Dr: Hortencia Dueñas MD Ordering Physician: Hortencia Dueñas MD Date of Service: 05/06/24 Procedure(s): XR chest 2V Accession Number(s): [id number] cc: Hortencia Dueñas MD EXAMINATION: XR CHEST [...] 05/06/24 1525 DD/ 1032 TD/TT: 05/06/24 1040 Jewel Stripper: MALVIN us Hortencia Dueñas MD IMG XR PROCEDURES Edited Re sult - Final * Influenza B (ID NOW Rapid Molecular) (05/06/2024 9:42 AM EST) [facility] Influenza B Negative Negative, Indeterminate [facility] Swab 05/06/2024 9:42 AM EST us Hortencia Dueñas MD POINT OF CARE TEST ENTER/ED IT ORDERABLES Final Result Performing Organization Address [facility] Co de Phone Number [facility] [address] [place] [phone] * Influenza A (ID NOW Rapid Molecular) (05/06/2024 9:42 AM EST) [facility] Influenza A Negative Negative, Indeterminate [facility] Swab 05/06/2024 9:42 AM EST us Hortencia Dueñas MD POINT OF CARE TEST ENTER/ED IT ORDERABLES Final Result Performing Organization Address [facility] Co de Phone Number [facility] [address] [place] [phone] * POCT Rapid COVID Ag (05/06/2024 9:34 AM EST) [facility] Rapid COVID Ag Negative Swab 05/06/2024 9:34 AM EST us Hortencia Dueñas MD POINT OF CARE TEST ENTER/ED IT ORDERABLES Final Result * (ABNORMAL) POCT HGB A1C (03/26/2024 10:18 AM EST) Hemoglobin A1C 6.9(A) 4.0 - 6.0 % QC Media Lot # [id number] Lot# Expiration Date [id number] Blood 03/26/2024 10:1 8 AM EST Angela Haley MD POINT OF CARE TEST EN TER/EDIT ORDERABLES Final Result * (ABNORMAL) Lipid Panel, Standard (05/23/2023 9:57 AM EST) Triglycerides 106 <150 mg/dL [facility] Comment:Desirable Triglyceri de: less than 150 mg/dLBorderline High Triglyceride 150-199 mg/dLHigh Triglyceride: 200-499 mg/dLVery High Triglyceride: greater than or equal to 5OO mg/dL Cholesterol 102 <200 mg/dL [facility] Comment:Desirable Cholestero l: less than 200 mg/dLBorderline High Cholesterol: 200-239 mg/dLHigh Cholesterol: greater than 239 mg/dL LDL Cholesterol Calculated 50 <100 mg/dL [facility] Comment:Desirable LDL: less than 100 mg/dLNear Optimal/Above Optimal LDL: 110- 129 mg/dLBorderline High LDL: 130-159 mg/dLHigh LDL: 160-189 mg/dLVery High LDL: greater than or equal to 190 mg/dL HDL Cholesterol 31(L) >40 mg/dL [facility] Comment:Desirable HDL: great er than 40 mg/dL Note: This HDL assay may give artificially low results in patients with liver disease. Blood Venous blood specimen / Unknown 05/23/2023 9:57 AM EST 05/23/2023 10:59 AM EST Angela Haley MD LAB BLOOD ORDERABLES Final Result [facility] [address] [place] [phone] * Hepatitis Panel, General (03/20/2023 11:30 AM EDT) Hepatitis A IgM Nonreactive Nonreactive [facility] Comment:IgM antibodies to [place] V not detected; does not exclude earlyacute or recovered HAV infection. ~Hepatitis B Surface Antibody NONREACTIVE Nonreactive [facility] Comment:Nonreactive: < 8.00 mIU/mL Hepatitis B Core Antibody Nonreactive Nonreactive [facility] Hepatitis C Antibody Nonreactive Nonreactive [facility] Comment:Antibodies to HCV no t detected; does not exclude early acuteHCV infection. Hepatitis B Surface Ag Negative Negative [facility] 03/20/2023 11:3 0 AM EDT 03/20/2023 11:32 AM EDT [facility] External Provider LAB BLO OD ORDERABLES Final Result Performing Organization Address City/State/[facility] Co de Phone Number [facility] [address] [place] [phone] * Mammography (04/08/2022) Mammogram Bi-rads 2 Anatomical Region Laterality Modality Other Historical Provider MD HEALTH MAINTENANCE Final Result from Last 3 Months or Most Recently Relevant to Health Maintenance Insurance [facility] - [facility] Care Teams Baseball Winder Relationship Specialty Start Date End Date Angela Luz MD [address] [place] [address] PCP - General Family Medicine 10/27/20 Ninfa Dietrich PharmD [address] [place] [address] Pharmacist Internal Medicine 11/10/23 [employer] 12/20/23
--- OUTSIDE RECORDS SUMMARY | 2024-07-30 08:16 | XMS_ITS | Encounter Summary ---
Author Organization [employer] Address 75 [facility] 7t [place] [address] Care Team Providers Care Hand Sole Sewer Name Role Phone Angela Luz MD Primary Care Provide r Ninfa Dietrich PharmD Unavailable [phone]- [phone] Reason for Visit * Reason Comments Med Refill Encounter Details Date Type Department Care Team (Late st Contact Info) Description 07/20/2023 Refill [facility] MEDICINE 230 [place], [place] [phone] Angela Cornell MD 230 [place], [place] [phone] Social History Tobacco Use Types Packs/Day Years [...] 08/07/2024 9:30 AM EDT Medication Management [address] [address] Ninfa Dietrich PharmD [address] [place] [address] 08/21/2024 10:30 AM EDT Clinical Support [address] [address] Nazia Martins RN documented as of this [...] on filedocumented in this encounter Care Teams Hand Sole Sewer Relationship Specialty Start Date End Date Angela Luz MD [address] [place] [address] [phone] PCP - General Family Medicine 10/27/20 Ninfa Dietrich, Shadia [address] [place] [address] [phone] Pharmacist Internal Medicine 11/10/23 [employer] 12/20/23 documented as of this encounter
--- OUTSIDE RECORDS SUMMARY | 2024-07-30 08:16 | XMS_ITS | Encounter Summary ---
Author Organization [employer] Address 75 [facility] 7t [place] [address] Care Team Providers Care Interactive Video Technician Name Role Phone Angela Luz MD Primary Care Provide r Ninfa Dietrich PharmD Unavailable [phone]- [phone] Reason for Visit * Reason Onset Date Comments Med Refill 05/30/2023 Encounter Details Date Type Department Care Team (Late st Contact Info) Description 05/30/2023 Refill [facility] MEDICINE 230 [place], [place] [phone] Gemini Lagunas MD 230 [place], [place] [phone] Primary hypertension Social History Tobacco Use Types [...] Description 08/07/2024 9:30 AM EDT Medication Management [address] [address] Ninfa Dietrich PharmD [address] [place] [address] 08/21/2024 10:30 AM EDT Clinical Support [address] [address] Nazia Martins RN documented as of this encounter Visit Diagnoses Diagnosis Primary hypertension Unspecified essential hypertension documented in this encounter Care Teams Interactive Video Technician Relationship Specialty Start Date End Date Angela Luz MD [address] [place] [address] PCP - General Family Medicine 10/27/20 Ninfa Dietrich, PharmD [address] [place] [address] Pharmacist Internal Medicine 11/10/23 [employer] 12/20/23 documented as of this encounter
--- OUTSIDE RECORDS SUMMARY | 2024-07-30 08:16 | XMS_ITS | Encounter Summary ---
Author Organization [employer] Address 75 [facility] 7t [place] [address] Care Team Providers Care Trend Investigator Name Role Phone Angela Luz MD Primary Care Provide r Ninfa Dietrich PharmD Unavailable [phone]- [phone] Reason for Visit * Reason Comments Med Refill Encounter Details Date Type Department Care Team (Late st Contact Info) Description 07/03/2023 Refill [facility] MEDICINE 230 [place], [place] [phone] Angela Luz MD 230 [place], [place] [phone] Seasonal allergic rhinitis, unspecified trigger; Type 2 diabetes mellitus with other specified complication, unspecified whether termite control technician insulin use ([facility] Social History Tobacco Use Types Packs/Day Years [...] Description 08/07/2024 9:30 AM EDT Medication Management [facility] MEDICINE [address] [place] [address] Ninfa Dietrich PharmD [address] [place] [address] 08/21/2024 10:30 AM EDT Clinical Support [facility] MEDICINE [address] [place] [address] Nazia Martins, DIAMOND documented as of this encounter Visit Diagnoses Diagnosis Seasonal allergic rhinitis, unspecified trigger Type 2 diabetes mellitus with other specified complication, unspecified whether termite control technician insulin use ([facility]) documented in this encounter Care Teams Trend Investigator Relationship Specialty Start Date End Date Angela Luz MD [address] [place] [address] PCP - General Family Medicine 10/27/20 Ninfa Dietrich PharmD [address] [place] [address] Pharmacist Internal Medicine 11/10/23 [employer] 12/20/23 documented as of this encounter
--- OUTSIDE RECORDS SUMMARY | 2024-07-30 08:16 | XMS_ITS | Encounter Summary ---
Author Organization [employer] Address 75 [facility] 7t [place] [address] Care Team Providers Care Compliance Coordinator Name Role Phone Angela Luz MD Primary Care Provide r Ninfa Dietrich PharmD Unavailable [phone]- [phone] Reason for Visit * Reason Onset Date Comments Med Refill 05/30/2023 Encounter Details Date Type Department Care Team (Late st Contact Info) Description 05/30/2023 Refill [facility] MEDICINE 230 [place], [place] [phone] Lashonda Alvarado MD 230 [place], [place] [phone] Constipation, unspecified constipation type Social History Tobacco [...] Description 08/07/2024 9:30 AM EDT Medication Management [address] [address] Ninfa Dietrich PharmD [address] [place] [address] 08/21/2024 10:30 AM EDT Clinical Support [address] [address] Nazia Martins RN documented as of this encounter Visit Diagnoses Diagnosis Constipation, unspecified constipation type documented in this encounter Care Teams Compliance Coordinator Relationship Specialty Start Date End Date Angela Luz MD [address] [place] [address] PCP - General Family Medicine 10/27/20 Ninfa Dietrich PharmD [address] [place] [address] [phone] Pharmacist Internal Medicine 11/10/23 [employer] 12/20/23 documented as of this encounter
--- OUTSIDE RECORDS SUMMARY | 2024-07-30 08:17 | XMS_ITS | Encounter Summary ---
Author Organization [employer] Address 75 [facility] 7t [place] [address] Care Team Providers Care Energy Manager Name Role Phone Angela Luz MD Primary Care Provide r Ninfa Dietrich PharmD Unavailable [phone] Reason for Visit * Reason Comments Med Refill Encounter Details Date Type Department Care Team ([facility] st Contact Info) Description 07/09/2024 Refill [facility] MEDICINE 230 [place], [place] [phone] Angela Luz MD 230 [place], [place] [phone] Other chronic pain Social History Tobacco Use [...] Description 08/07/2024 9:30 AM EDT Medication Management [address] [address] Ninfa Dietrich PharmD [address] [place] [address] 08/21/2024 10:30 AM EDT Clinical Support [address] [address] Nazia Martins RN documented as of this [...] pain documented in this encounter Care Teams Energy Manager Relationship Specialty Start Date End Date Angela Luz MD [address] [place] [address] PCP - General Family Medicine 10/27/20 Ninfa Dietrich PharmD [address] [place] [address] Pharmacist Internal Medicine 11/10/23 [email or web address] 12/20/23 documented as of this encounter
--- OUTSIDE RECORDS SUMMARY | 2024-07-30 08:17 | XMS_ITS | Encounter Summary ---
Author Organization [employer] Address 75 [facility] 7t [place] [address] Care Team Providers Care Prepress Specialist Name Role Phone Angela Luz MD Primary Care Provide r Ninfa Dietrich PharmD Unavailable [phone] Reason for Visit * Reason Comments Med Refill Encounter Details Date Type Department Care Team ([facility] st Contact Info) Description 03/21/2023 Refill [facility] MEDICINE 230 [place], [place] [phone] Angela Luz MD 230 [place], [place] [phone] Other chronic pain Social History Tobacco Use [...] Description 08/07/2024 9:30 AM EDT Medication Management [address] [address] Ninfa Dietrich PharmD [address] [place] [address] 08/21/2024 10:30 AM EDT Clinical Support [address] [address] Nazia Martins RN documented as of this encounter Visit Diagnoses Diagnosis Other chronic pain documented in this encounter Care Teams Prepress Specialist Relationship Specialty Start Date End Date Angela Luz MD [address] [place] [address] PCP - General Family Medicine 10/27/20 Ninfa Dietrich, PharmD [address] [place] [address] Pharmacist Internal Medicine 11/10/23 [employer] 12/20/23 documented as of this encounter
--- OUTSIDE RECORDS SUMMARY | 2024-07-30 08:17 | XMS_ITS | Encounter Summary ---
Author Organization [employer] Address 75 [facility] 7t [place] [address] Care Team Providers Care Hard Candy Spinner Name Role Phone Angela Luz MD Primary Care Provide r Ninfa Dietrich PharmD Unavailable Reason for Visit * Reason Comments Med Refill Encounter Details Date Type Department Care Team (Late Contact Info) Description 02/22/2023 Refill [facility] MEDICINE 230 [place], [place] [phone] Angela Luz MD 230 [place], [place] [phone] Type 2 diabetes mellitus with stage 3 [...] Department Care Team (Late Contact Info) Description 08/07/2024 9:30 AM EDT Medication Management [address] [address] Ninfa Dietrich PharmD [address] [place] [address] 08/21/2024 10:30 AM EDT Clinical Support [address] [address] Nazia Martins RN documented as of this encounter Visit Diagnoses Diagnosis Type 2 diabetes mellitus with stage 3 chronic kidney disease, with long-term current use of insulin, unspecified whether stage 3a or 3b CKD (CMS/[facility]) documented in this encounter Care Teams Hard Candy Spinner Relationship Specialty Start Date End Date Angela Luz MD [address] [place] [address] PCP - General Family Medicine 10/27/20 Ninfa Dietrich PharmD [address] [place] [address] Pharmacist Internal Medicine 11/10/23 [employer] 12/20/23 documented as of this encounter
--- OUTSIDE RECORDS SUMMARY | 2024-07-30 08:17 | XMS_ITS | Encounter Summary ---
Author Organization [employer] Address 75 [facility] 7t [place] [address] Care Team Providers Care Geomorphologist Name Role Phone Angela Luz MD Primary Care Provide r Ninfa Dietrich PharmD Unavailable Reason for Visit * Reason Comments Med Refill Encounter Details Date Type Department Care Team (Late Contact Info) Description 02/20/2023 Refill [facility] PEDS [address] [place], [place] [phone] Angela Luz MD 230 [place], [place] [phone] Gastroesophageal reflux disease, unspecified whether esophagitis present [...] Description 08/07/2024 9:30 AM EDT Medication Management [facility] MEDICINE 230 [place], [place] [phone] Ninfa Dietrich PharmD [address] [place] [address] 08/21/2024 10:30 AM EDT Clinical Support [facility] MEDICINE [address] [place] [address] Nazia Martins RN documented as of this encounter Visit Diagnoses Diagnosis Gastroesophageal reflux disease, unspecified whether esophagitis present documented in this encounter Care Teams Geomorphologist Relationship Specialty Start Date End Date Angela Luz MD [address] [place] [address] PCP - General Family Medicine 10/27/20 Ninfa Dietrich PharmD [address] [place] [address] Pharmacist Internal Medicine 11/10/23 [employer] 12/20/23 documented as of this encounter
--- OUTSIDE RECORDS SUMMARY | 2024-07-30 08:17 | XMS_ITS | Encounter Summary ---
Author Organization [employer] Address 75 [facility] 7t [place] [address] Care Team Providers Care Roofing Superintendent Name Role Phone Angela Luz MD Primary Care Provide r Ninfa Dietrich PharmD Unavailable [phone] Reason for Visit * Reason Onset Date Comments Med Refill 03/14/2024 Encounter Details Date Type Department Care Team (Late st Contact Info) Description 03/14/2024 Refill [facility] MEDICINE 230 [place], [place] [phone] Angela Luz MD 230 [place], [place] [phone] Social History Tobacco Use Types Packs/Day Years [...] 08/07/2024 9:30 AM EDT Medication Management [address] [address] Ninfa Dietrich PharmD [address] [place] [address] 08/21/2024 10:30 AM EDT Clinical Support [address] [address] Nazia Martins RN documented as of this [...] on filedocumented in this encounter Care Teams Roofing Superintendent Relationship Specialty Start Date End Date Angela Luz MD [address] [place] [address] PCP - General Family Medicine 10/27/20 Ninfa Dietrich PharmD [address] [place] [address], [place] [address] Pharmacist Internal Medicine 11/10/23 [employer] 12/20/23 documented as of this encounter
--- OUTSIDE RECORDS SUMMARY | 2024-07-30 08:17 | XMS_ITS | Encounter Summary ---
Author Organization [employer] Address 75 [facility] 7t [place] [address] Care Team Providers Care Factory Maintenance Manager Name Role Phone Angela Luz MD Primary Care Provide r Ninfa Dietrich PharmD Unavailable [phone] Reason for Visit * Reason Comments Med Refill Encounter Details Date Type Department Care Team ([facility] st Contact Info) Description 03/14/2023 Refill [facility] MEDICINE 230 [place], [place] [phone] Jeancarlos Brice MD 230 [place], [place] [phone] Chronic pruritus Social History Tobacco Use Types [...] Description 08/07/2024 9:30 AM EDT Medication Management [address] [address] Ninfa Dietrich PharmD [address] [place] [address] 08/21/2024 10:30 AM EDT Clinical Support [address] [address] Nazia Martins RN documented as of this encounter Visit Diagnoses Diagnosis Chronic pruritus documented in this encounter Care Teams Factory Maintenance Manager Relationship Specialty Start Date End Date Angela Luz MD [address] [place] [address] PCP - General Family Medicine 10/27/20 Ninfa Dietrich, PharmD [address] [place] [address] Pharmacist Internal Medicine 11/10/23 [employer] 12/20/23 documented as of this encounter
--- OUTSIDE RECORDS SUMMARY | 2024-07-30 08:17 | XMS_ITS | Encounter Summary ---
Author Organization [employer] Address 75 [facility] 7t [place] [address] Care Team Providers Care Supervisor Spring Up Name Role Phone Angela Lzu MD Primary Care Provide r Ninfa Dietrich PharmD Unavailable [phone] Reason for Visit * Reason Comments Med Refill Encounter Details Date Type Department Care Team ([facility] st Contact Info) Description 06/29/2024 Refill [facility] MEDICINE 230 [place], [place] [phone] Angela Luz MD 230 [place], [place] [phone] Social History Tobacco Use Types Packs/Day Years [...] Description 08/07/2024 9:30 AM EDT Medication Management [address] [address] Ninfa Dietrich, PharmD [address] [place] [address] 08/21/2024 10:30 AM EDT Clinical Support [address] [address] Nazia Martins RN documented as of this [...] filedocumented in this encounter Care Teams Supervisor Spring Up Relationship Specialty Start Date End Date Angela Luz MD [address] [place] [address] PCP - General Family Medicine 10/27/20 Ninfa Dietrich, LauraD [address] [place] [address] Pharmacist Internal Medicine 11/10/23 [employer] 12/20/23 documented as of this encounter
--- OUTSIDE RECORDS SUMMARY | 2024-07-30 08:17 | XMS_ITS | Encounter Summary ---
Author Organization [employer] Address 75 [facility] 7t [place] [address] Care Team Providers Care Child Care Coordinator Name Role Phone Angela Luz MD Primary Care Provide r Ninfa Dietrich PharmD Unavailable [phone] Reason for Visit * Reason Comments Med Refill Encounter Details Date Type Department Care Team (Late Contact Info) Description 01/27/2023 Refill [facility] MEDICINE 230 [place] [address] Angela Luz MD 230 [place], [place] [phone] Other chronic pain Social History Tobacco Use [...] Description 08/07/2024 9:30 AM EDT Medication Management [facility] MEDICINE 230 [place] [address] Ninfa Dietrich, PharmD [address] [place] [address] 08/21/2024 10:30 AM EDT Clinical Support [facility] MEDICINE [address] [place] [address] [phone] Nazia Martins RN documented as of this encounter Visit Diagnoses Diagnosis Other chronic pain documented in this encounter Care Teams Child Care Coordinator Relationship Specialty Start Date End Date Angela Luz MD [address] [place] [address] [phone] PCP - General Family Medicine 10/27/20 Ninfa Dietrich, LauraD [address] [place] [address] Pharmacist Internal Medicine 11/10/23 [employer] 12/20/23 documented as of this encounter
--- OUTSIDE RECORDS SUMMARY | 2024-07-30 08:17 | XMS_ITS | Encounter Summary ---
Author Organization [employer] Address [address] [facility] [address] 7t [place] [address] Care Team Providers Care Extension Clerk Name Role Phone Angela Luz MD Primary Care Provide r Ninfa Dietrich PharmD Unavailable [phone] Encounter Details Date Type Department Care Team [...] Description 08/07/2024 9:30 AM EDT Medication Management [address] [phone] Ninfa Dietrich PharmD [address] [place] [address] 08/21/2024 10:30 AM EDT Clinical Support [address] [address] Nazia Martins, DIAMOND documented as of this [...] on filedocumented in this encounter Care Teams Extension Clerk Relationship Specialty Start Date End Date Angela Luz MD [address] [place] [address] [phone] PCP - General Family Medicine 10/27/20 Ninfa Dietrich PharmD [address] [place] [address] [phone] Pharmacist Internal Medicine 11/10/23 [employer] 12/20/23 documented as of this encounter
--- OUTSIDE RECORDS SUMMARY | 2024-07-30 08:17 | XMS_ITS | Encounter Summary ---
Author Organization [employer] Address 75 [facility] 7t [place] [address] Care Team Providers Care Fountain Clerk Name Role Phone Angela Luz MD Primary Care Provide r Ninfa Dietrich PharmD Unavailable [phone] Reason for Visit * Reason Onset Date Comments Med Refill 02/28/2023 Encounter Details Date Type Department Care Team (Late st Contact Info) Description 02/28/2023 Refill [facility] MEDICINE 230 [place], [place] [phone] Angela Luz MD 230 [place], [place] [phone] Other chronic pain Social History Tobacco Use [...] Description 08/07/2024 9:30 AM EDT Medication Management [address] [address] Ninfa Dietrich PharmD [address] [place] [address] 08/21/2024 10:30 AM EDT Clinical Support [address] [address] Nazia Martins RN documented as of this encounter Visit Diagnoses Diagnosis Other chronic pain documented in this encounter Care Teams Fountain Clerk Relationship Specialty Start Date End Date Angela Luz MD [address] [place] [address] PCP - General Family Medicine 10/27/20 Ninfa Dietrich, PharmD [address] [place] [address] Pharmacist Internal Medicine 11/10/23 [employer] 12/20/23 documented as of this encounter
--- OUTSIDE RECORDS SUMMARY | 2024-07-30 08:18 | XMS_ITS | Encounter Summary ---
Author Organization [employer] Address [address] [facility] [address] 7t [place] [address] Care Team Providers Care Paste Up Artist Name Role Phone Angela Luz MD Primary Care Provide r Ninfa Dietrich PharmD Unavailable Reason for Visit * Reason Onset Date Comments Shade 03/28/2023 Encounter Details Date Type Department Care Team ([facility] st Contact Info) Description 03/28/2023 Telephone [facility] ADULT DENTAL [address] [place] [address] Percy Dennison, DMD [address] [place], [place] [phone] Shade Social History Tobacco Use Types Packs/Day [...] from [employer] looking for shade of denture. [phone]. Pls contact lab documented in this encounter Plan of Treatment Upcoming Encounters Date Type Department Care Team (Late st Contact Info) Description 08/07/2024 9:30 AM EDT Medication Management [facility] MEDICINE [address] [place] [address] Ninfa Dietrich PharmD [address] [place] [address] 08/21/2024 10:30 AM EDT Clinical Support [facility] MEDICINE [address] [place] [address] Nazia Martins RN documented as of this encounter Visit Diagnoses Not on filedocumented in this encounter Care Teams Paste Up Artist Relationship Specialty Start Date End Date Angela Luz MD [address] [place] [address] PCP - General Family Medicine 10/27/20 Ninfa Dietrich PharmD [address] [place] [address] Pharmacist Internal Medicine 11/10/23 [employer] 12/20/23 documented as of this encounter
--- OUTSIDE RECORDS SUMMARY | 2024-07-30 08:18 | XMS_ITS | Encounter Summary ---
Author Organization [employer] Address 75 [facility] 7t [place] [address] Care Team Providers Care Refinery Operator Crude Unit Name Role Phone Angela Luz MD Primary Care Provide r Ninfa Dietrich PharmD Unavailable [phone]- [phone] Reason for Visit * Reason Comments Med Refill Encounter Details Date Type Department Care Team (Late Contact Info) Description 09/13/2022 Refill [facility] 230 [place] [address] Angela Luz MD 230 [place], [place] [phone] Other chronic pain Social History Tobacco Use [...] Description 08/07/2024 9:30 AM EDT Medication Management [facility] 230 [place] [address] Ninfa Dietrich, PharmD [address] [place] [address] 08/21/2024 10:30 AM EDT Clinical Support [facility] [address] [place] [address] [phone] Nazia Martins RN documented as of this encounter Visit Diagnoses Diagnosis Other chronic pain documented in this encounter Care Teams Refinery Operator Crude Unit Relationship Specialty Start Date End Date Angela Luz MD [address] [place] [address] [phone] PCP - General Family Medicine 10/27/20 Ninfa Dietrich, LauraD [address] [place] [address] Pharmacist Internal Medicine 11/10/23 [employer] 12/20/23 documented as of this encounter
--- OUTSIDE RECORDS SUMMARY | 2024-07-30 08:18 | XMS_ITS | Encounter Summary ---
Author Organization [employer] Address [address] [facility] [address] 7t [place] [address] Care Team Providers Care Captain Cannery Tender Name Role Phone Angela Luz MD Primary Care Provide r Ninfa Dietrich PharmD Unavailable Reason for Visit * Reason Comments Med Refill Encounter Details Date Type Department Care Team (Late st Contact Info) Description 02/15/2024 Refill [facility] PEDS [address] [place], [place] [phone] Angela Luz MD 230 [place], [place] [phone] Seasonal allergic rhinitis, unspecified trigger Social History [...] Description 08/07/2024 9:30 AM EDT Medication Management [address] [address] Ninfa Dietrich PharmD [address] [place] [address] 08/21/2024 10:30 AM EDT Clinical Support [address] [address] Nazia Martins RN documented as of this [...] trigger documented in this encounter Care Teams Captain Cannery Tender Relationship Specialty Start Date End Date Angela Luz MD [address] [place] [address] PCP - General Family Medicine 10/27/20 Ninfa Dietrich, LauraD 230 [place] [address] Pharmacist Internal Medicine 11/10/23 [employer] 12/20/23 documented as of this encounter
--- OUTSIDE RECORDS SUMMARY | 2024-07-30 08:18 | XMS_ITS | Encounter Summary ---
Author Organization [employer] Address [address] [facility] [address] 7t [place] [address] Care Team Providers Care Videotape Editor Name Role Phone Anegla Luz MD Primary Care Provide r Ninfa Dietrich PharmD Unavailable [phone] Encounter Details Date Type Department Care Team (Late st Contact Info) Description 04/18/2023 Abstract [facility] MEDICINE 230 [place] [address] Delia Ballard Social History Tobacco Use Types [...] 9:30 AM EDT Medication Management [facility] MED[facility]INE [address] [place] [address] Ninfa Dietrich PharmD [address] [place] [address] 08/21/2024 10:30 AM EDT Clinical Support [facility] MED[facility] [address] [place] [address] Nazia Martins RN documented as of this encounter Visit Diagnoses Not on filedocumented in this encounter Care Teams Videotape Editor Relationship Specialty Start Date End Date Angela Luz MD [address] [place] [address] [phone] PCP - General Family Medicine 10/27/20 Ninfa Dietrich PharmD [address] [place] [address] Pharmacist Internal Medicine 11/10/23 [employer] 12/20/23 documented as of this encounter
--- OUTSIDE RECORDS SUMMARY | 2024-07-30 08:18 | XMS_ITS | Encounter Summary ---
Author Organization [employer] Address 75 [facility] 7t [place] [address] Care Team Providers Care Budget Analyst Name Role Phone Angela Luz MD Primary Care Provide r Ninfa Dietrich PharmD Unavailable Reason for Visit * Reason Onset Date Comments Med Refill 04/03/2023 Encounter Details Date Type Department Care Team (Late st Contact Info) Description 04/03/2023 Refill [facility] MEDICINE 230 [place], [place] [phone] Angela Luz MD 230 [place], [place] [phone] Type 2 diabetes mellitus with other specified complication, unspecified whether penitentiary insulin use ([facility]) Social History Tobacco Use Types Packs/Day [...] Description 08/07/2024 9:30 AM EDT Medication Management [facility] MED[facility]INE [address] [place] [address] Ninfa Dietrich PharmD [address] [place] [address] 08/21/2024 10:30 AM EDT Clinical Support [address] [address] Nazia Martins, DIAMOND documented as of this encounter Visit Diagnoses Diagnosis Type 2 diabetes mellitus with other specified complication, unspecified whether penitentiary insulin use ([facility]) documented in this encounter Care Teams Budget Analyst Relationship Specialty Start Date End Date Angela Luz MD [address] [place] [address] PCP - General Family Medicine 10/27/20 Ninfa Dietrich PharmD [address] [place] [address] Pharmacist Internal Medicine 11/10/23 [employer] 12/20/23 documented as of this encounter
--- OUTSIDE RECORDS SUMMARY | 2024-07-30 08:18 | XMS_ITS | Encounter Summary ---
Author Organization [employer] Address [address] [facility] [address] 7t [place] [address] Care Team Providers Care Pharmacy Tech Customer Service Name Role Phone Angela Luz MD Primary Care Provide r Ninfa Dietrich PharmD Unavailable [phone] Reason for Visit * Reason Comments Med Refill Encounter Details Date Type Department Care Team (Late st Contact Info) Description 03/24/2023 Refill [facility] 230 [place], [place] [phone] Angela Luz MD 230 [place], [place] [phone] Cervical spondylosis with radiculopathy Social History Tobacco [...] Description 08/07/2024 9:30 AM EDT Medication Management [address] [address] Ninfa Dietrich PharmD [address] [place] [address] 08/21/2024 10:30 AM EDT Clinical Support [address] [address] Nazia Martins RN documented as of this encounter Visit Diagnoses Diagnosis Cervical spondylosis with radiculopathy Cervical spondylosis with myelopathy documented in this encounter Care Teams Pharmacy Tech Customer Service Relationship Specialty Start Date End Date Angela Luz MD [address] [place] [address] PCP - General Family Medicine 10/27/20 Ninfa Dietrich, PharmD [address] [place] [address] Pharmacist Internal Medicine 11/10/23 [employer] 12/20/23 documented as of this encounter
--- OUTSIDE RECORDS SUMMARY | 2024-07-30 08:18 | XMS_ITS | Encounter Summary ---
Author Organization [employer] Address [address] [facility] [address] 7t [place] [address] Care Team Providers Care Casting Operator Helper Name Role Phone Angela Luz MD Primary Care Provide r Ninfa Dietrich PharmD Unavailable [phone] Reason for Visit * Reason Onset Date Comments Call Back Request 01/24/2024 Encounter Details Date Type Department Care Team ([facility] st Contact Info) Description 01/24/[address] [facility] MEDICINE 230 [place], [place] [phone] Angela Luz MD 230 [place], [place] [phone] Call Back Request Social History Tobacco Use [...] EDT Tc from Angela the VNA at [facility] requesting a calll back in regards to a sliding scale that was suppose to be faxed to [phone] please call Angela at [phone] documented in this encounter Plan of Treatment Upcoming Encounters Date Type Department Care Team (Late st Contact Info) Description 08/07/2024 9:30 AM EDT Medication Management [address] [address] Ninfa Dietrich, PharmD [address] [place] [address] 08/21/2024 10:30 AM EDT Clinical Support [facility] MEDICINE [address] [place] [address] Nazia Martins RN documented as of this [...] on filedocumented in this encounter Care Teams Casting Operator Helper Relationship Specialty Start Date End Date Angela Luz MD 230 [place] [address] PCP - General Family Medicine 10/27/20 Ninfa Dietrich PharmD 230 [place] [address] Pharmacist Internal Medicine 11/10/23 [employer] 12/20/23 documented as of this encounter
--- OUTSIDE RECORDS SUMMARY | 2024-07-30 08:19 | XMS_ITS | Encounter Summary ---
Author Organization [employer] Address [address] [facility] [address] 7t [place] [address] Care Team Providers Care Typing Checker Name Role Phone Angela Lzu MD Primary Care Provide r Ninfa Dietrich PharmD Unavailable Encounter Details Date Type Department Care Team (Late st Contact Info) Description 07/23/2024 9:[address] [facility] MEDICINE 230 [place], [place] [phone] Ninfa Dietrich, PharmD 230 [place], [place] [phone] Type 2 diabetes mellitus with hyperglycemia, with long-term current use of insulin (CMS/HCC) (Primary Dx); Type 2 diabetes mellitus with stage 3 chronic kidney disease, with long-term current use of insulin, unspecified whether stage 3a or 3b CKD (CMS/HCC); Primary hypertension Social History Tobacco Use Types [...] AM EDT documented as of this encounter Progress Notes * Ninfa Dietrich PharmD - 07/23/2024 9:00 AM EST Images from the original note were not included. Pharmacy Consult Visit Type: CDTM Pharmacist: Shadia Camarillo Smith Moreno is a 68 y.o. year old patient here for follow up visit completed over the phone. JUN Miller: [phone] Subjective History: General / Intake (updated 11/09/23) Allergies: is allergic to latex and tramadol. Read/Write: No Recent Hospitalizations: ED visit 11/20/23 for hypoglycemia, 4/4/24 for SI Social History as reported by patient: Tobacco: Denies Alcohol: Denies Caffeine: Denies Illicit drugs: Denies Adherence / patient self-management Uses medboxes from [facility] pharmacy Reports satisfaction with medboxes Denies missed doses or removing medication Denies ISMAEL to current treatment OTC medication, vitamin, supplement use: denies Type 2 Diabetes VNA RN visits twice daily and administers insulin and all injections [facility] called patient's VNA RN following this visit who stated patient's BG have been improving since increase of Ozempic however experiencing occasional hypoglycemia Pertinent negatives include polyuria, polydypsia, blurred vision Currently SMBG using [employer] Jeovany 2, patient's daughter dropped off CGM reader following this televisit: Hypertension Pertinent negatives include chest pain, head ache, blurry vision, dizziness Losartan increased by cardiology to 50mg once daily following message left with provider to discusspotential increase for assistance with treatment of microalbuminuria Scr continues to be elevated, last result 07/22/24 however improved from 01/23/24 (1.69mg/dL) Objective History: Treatment history/considerations: PMH: Heart failure ROLAN Pacemaker COPD Asthma CKD PAD Normocytic anemia Nonproliferative diabetic retinopathy Medication: N/A Recent labs: Lab Results Component Value Date ALT 27 07/22/2024 AST 37 (H) 07/22/2024 LDLCHOLCAL 50 05/23/2023 TRIG 106 05/23/2023 K 4.6 07/22/2024 NA 142 07/22/2024 VITB12 1,596 (H) 03/20/2023 VITB12 1,596 (H) 03/20/2023 MICROALBCREU 75.1 (H) 04/30/2024 CREATININE 1.46 (H) 07/22/2024 EGFR 36 07/22/2024 HGBA1C 6.9 (A) 03/26/2024 HGBA1C 7.0 (A) 12/06/2023 HGBA1C 7.5 (A) 09/11/2023 Estimated Creatinine Clearance: 25.2 mL/min (A) (by C-G formula based on SCr of 1.46 mg/dL (H)). Recent blood pressure readings: BP Readings from Last 4 Encounters: 07/01/24 (!) 142/44 06/28/24 128/74 05/06/24 138/64 04/30/24 (!) 142/40 Pulse Readings from Last 4 Encounters: 07/01/24 61 06/28/24 84 05/06/24 69 04/30/24 60 Immunizations Due: No gaps identified Preferred Pharmacy: [facility] [address] [phone] Assessment/Plan: Type 2 Diabetes Pharmacologic Therapy: Farxiga 10mg once daily Novolog flexpen: USE DIRECTED THREE TIMES DAILY PER SLIDING SCALE <150mg/dL= 0 units,151-199mg/dL=4 units,200-249mg/dL=6 units,250-299mg/dL=8 units,300- 349mg/dL=10 units,350-399mg/dL=12 units,>400mg/dL 14 units & call office Tresiba flextouch 44 units once daily Ozempic 1mg once weekly Additional recommendations per ADA: On aspirin:Yes, for primary prevention On statin: Yes Atorvastatin 40mg On ACEI/ARB: Yes losartan 50mg Dental Exam in the past 6 mo: Unknown Eye Exam in the past 12 mo: Unknown Goals of Therapy per the ADA Standards of Medical Care in Diabetes Achieve A1c of <8% while also minimizing episodes of hypoglycemia (A1C <8% due to age, CKD, HF) Plan: Patient would benefit from ongoing CGM use. New RXs issued for [employer] Libe 3 reader & Jeovany 3 plus sensors today to replace Jeovany 2 which will be discontinued by community living coach this year. Reviewed use & differences vs former sensor (sensor size, wear length 15d, no scans needed, application, etc). Patient confirmed understanding, denies questions. Due to hypoglycemia (mostly fasting in the morning/overnight), decrease tresiba by 20% to use 36 units once daily; this was discussed with VNA RN Continue current insulin regimen as administered by VNA RN Re-educated patient on importance of dietary choices and portion sizes Follow up with CDTM in 2 weeks Education: Healthy diet and lifestyle. Discussed role of A1c monitoring, A1c and SMBG goals Reviewed risks of macro- and microvascular complications of uncontrolled DM. Reviewed signs, symptoms and treatments of hypoglycemia to which patient confirmed understanding. Has glucose gel to use as needed Hypertension Pharmacotherapy: Losartan 50mg once daily Amlodipine 10mg once daily Torsemide 20mg twice daily Goals of Therapy per JNC 8: Achieve BP <140/90mmHg Plan: Continue current therapy and monitoring Follow up with CDTM in 2 weeks Education: Reviewed benefits of DASH diet for improved BP control. Reviewed BP goals, patient instructed to call if extremes of BP are noted prior to next scheduled visit. documented in this encounter Plan of Treatment Upcoming Encounters Date Type Department Care Team (Late st Contact Info) Description 08/07/2024 9:30 AM EDT Medication Management [facility] MEDICINE [address] [place] [address] Ninfa Dietrich PharmD [address] [place] [address] 08/21/2024 10:30 AM EDT Clinical Support [address] [address] Nazia Martins RN documented as of this encounter Goals Goal Patient Goal Type Associated Problems Recent Progress Patient-Stated? Author Blood Pressure < 140/90 Blood Pressure 142/44(2024 10:39 AM EST) No Ady Araujo Hemoglobin A1c < 8 Result Component 6.9(11/05/202 4 10:18 AM EST) Ady Chan Note: Comorbidities: CHF, CKD, cirrhosis documented as of this encounter Visit Diagnoses Diagnosis Type 2 diabetes mellitus with hyperglycemia, with long-term current use of insulin (CMS/HCC)- Primary Type 2 diabetes mellitus with stage 3 chronic kidney disease, with long-term current use of insulin, unspecified whether stage 3a or 3b CKD (CMS/HCC) Primary hypertension Unspecified essential hypertension documented in this encounter Care Teams Typing Checker Relationship Specialty Start Date End Date Angela Luz MD 230 [place] [address] PCP - General Family Medicine 10/27/20 Ninfa Dietrich, LauraD 230 [place] [address] Pharmacist Internal Medicine 11/10/23 [employer] 12/20/23 documented as of this encounter
--- OUTSIDE RECORDS SUMMARY | 2024-07-30 08:19 | XMS_ITS | Encounter Summary ---
Author Organization [employer] Address [address] [facility] [address] 7t [place] [address] Care Team Providers Care Home Supervisor Name Role Phone Angela Luz MD Primary Care Provide r Ninfa Dietrich PharmD Unavailable Reason for Visit * Reason Comments Med Refill Encounter Details Date Type Department Care Team (Late st Contact Info) Description 09/27/2023 Refill [facility] MED & PEDS [address] [place], [place] [phone] Angela Luz MD 230 [place], [place] [phone] Seasonal allergic rhinitis, unspecified trigger; Other chronic [...] Description 08/07/2024 9:30 AM EDT Medication Management [address] [address] Ninfa Dietrich PharmD [address] [place] [address] 08/21/2024 10:30 AM EDT Clinical Support [address] [address] Nazia Martins RN documented as of this [...] pain documented in this encounter Care Teams Home Supervisor Relationship Specialty Start Date End Date Angela Luz MD [address] [place] [address] PCP - General Family Medicine 10/27/20 Ninfa Dietrich, PharmD 230 [place] [address] Pharmacist Internal Medicine 11/10/23 [employer] 12/20/23 documented as of this encounter
--- OUTSIDE RECORDS SUMMARY | 2024-07-30 08:19 | XMS_ITS | Encounter Summary ---
Author Organization [employer] Address 75 [facility] 7t [place] [address] Care Team Providers Care Zinc Chloride Operator Name Role Phone Angela Luz MD Primary Care Provide r Ninfa Dietrich PharmD Unavailable Reason for Visit * Reason Comments Med Refill Encounter Details Date Type Department Care Team (Late st Contact Info) Description 10/26/2022 Refill [facility] MEDICINE 230 [place], [place] [phone] Angela Luz MD 230 [place], [place] [phone] Type 2 diabetes mellitus with other specified complication, unspecified whether long term care social worker insulin use ([facility]) Social History Tobacco Use [...] Description 08/07/2024 9:30 AM EDT Medication Management [address] [address] Ninfa Dietrich PharmD [address] [place] [address] 08/21/2024 10:30 AM EDT Clinical Support [address] [address] Nazia Martins, DIAMOND documented as of this encounter Visit Diagnoses Diagnosis Type 2 diabetes mellitus with other specified complication, unspecified whether long term care social worker insulin use ([facility]) documented in this encounter Care Teams Zinc Chloride Operator Relationship Specialty Start Date End Date Angela Luz MD [address] [place] [address] PCP - General Family Medicine 10/27/20 Ninfa Dietrich PharmD [address] [place] [address] Pharmacist Internal Medicine 11/10/23 [employer] 12/20/23 documented as of this encounter
--- OUTSIDE RECORDS SUMMARY | 2024-07-30 08:19 | XMS_ITS | Encounter Summary ---
Author Organization [employer] Address 75 [facility] 7t [place] [address] Care Team Providers Care Software Support Specialist Name Role Phone Angela Luz MD Primary Care Provide r Ninfa Dietrich PharmD Unavailable [phone]- [phone] Encounter Details Date Type Department Care Team (Late st Contact Info) Description 08/30/2022 Telephone [facility] MEDICINE 230 [place] [address] Lacie Mtz, DIAMOND 230 [place] [address] Social History Tobacco Use Types Packs/Day Years [...] 08/07/2024 9:30 AM EDT Medication Management [address] [address] Ninfa Dietrich PharmD [address] [place] [address] 08/21/2024 10:30 AM EDT Clinical Support [address] [address] Nazia Martins, DIAMOND documented as of this encounter Visit Diagnoses Not on filedocumented in this encounter Care Teams Software Support Specialist Relationship Specialty Start Date End Date Angela Luz MD [address] [place] [address] PCP - General Family Medicine 10/27/20 Ninfa Dietrich, LauraD [address] [place] [address] Pharmacist Internal Medicine 11/10/23 [employer] 12/20/23 documented as of this encounter
--- OUTSIDE RECORDS SUMMARY | 2024-07-30 08:19 | XMS_ITS | Encounter Summary ---
Author Organization [employer] Address 75 [facility] 7t [place] [address] Care Team Providers Care Toe Pounder Name Role Phone Angela Luz MD Primary Care Provide r Ninfa Dietrich PharmD Unavailable [phone] Reason for Visit * Reason Comments Med Refill Encounter Details Date Type Department Care Team (Late st Contact Info) Description 09/06/2023 Refill [facility] MEDICINE 230 [place], [place] [phone] Angela Luz MD 230 [place], [place] [phone] Type 2 diabetes mellitus with other specified complication, unspecified whether intermodal customer service insulin use ([facility]) Social History Tobacco Use Types Packs/Day [...] Description 08/07/2024 9:30 AM EDT Medication Management [address] [address] Ninfa Dietrich PharmD [address] [place] [address] 08/21/2024 10:30 AM EDT Clinical Support [address] [address] Nazia Martins, DIAMOND documented as of this [...] mellitus with other specified complication, unspecified whether intermodal customer service insulin use (CMS/HCC) documented in this encounter Care Teams Toe Pounder Relationship Specialty Start Date End Date Angela Luz MD [address] [place] [address] PCP - General Family Medicine 6/8/21 Ninfa Dietrich, Shadia [address] [place] [address] Pharmacist Internal Medicine 11/10/23 [employer] 12/20/23 documented as of this encounter
--- OUTSIDE RECORDS SUMMARY | 2024-07-30 08:20 | XMS_ITS | Encounter Summary ---
Author Organization [employer] Address [address] [facility] [address] 7t [place] [address] Care Team Providers Care Cloud Software Engineer Name Role Phone Angela Luz MD Primary Care Provide r Ninfa Dietrich PharmD Unavailable [phone] Reason for Visit * Reason Comments Med Refill Encounter Details Date Type Department Care Team (Late st Contact Info) Description 07/29/2024 Refill [facility] MED & PEDS [address] [place], [place] [phone] Angela Luz MD 230 [place], [place] [phone] Social History Tobacco Use Types Packs/Day Years [...] Description 08/07/2024 9:30 AM EDT Medication Management [address] [address] Ninfa Dietrich PharmD [address] [place] [address] 08/21/2024 10:30 AM EDT Clinical Support [address] [address] Nazia Martins RN documented as of this [...] on filedocumented in this encounter Care Teams Cloud Software Engineer Relationship Specialty Start Date End Date Angela Luz MD [address] [place] [address] PCP - General Family Medicine 10/27/20 Ninfa Dietrich, Shadia [address] [place] [address] Pharmacist Internal Medicine 11/10/23 [email or web address] 12/20/23 documented as of this encounter
--- OUTSIDE RECORDS SUMMARY | 2024-07-30 08:20 | XMS_ITS | Encounter Summary ---
Author Organization [employer] Address 75 [facility] 7t [place] [address] Care Team Providers Care Sheetrock Applicator Name Role Phone Angela Luz MD Primary Care Provide r Ninfa Dietrich PharmD Unavailable Reason for Visit * Reason Comments Med Refill Encounter Details Date Type Department Care Team (Late Contact Info) Description 12/05/2022 Refill [facility] MED[facility]INE [address] [place], [place] [phone] Gemini Lagunas MD 230 [place], [place] [phone] Type 2 diabetes mellitus with unspecified complications [...] Description 08/07/2024 9:30 AM EDT Medication Management [facility] [address] [place] [address] Ninfa Dietrich PharmD [address] [place] [address] 08/21/2024 10:30 AM EDT Clinical Support [facility] [address] [place] [address] Nazia Martins RN documented as of this encounter Visit Diagnoses Diagnosis Type 2 diabetes mellitus with unspecified complications (CMS/HCC) documented in this encounter Care Teams Sheetrock Applicator Relationship Specialty Start Date End Date Angela Luz MD [address] [place] [address] PCP - General Family Medicine 10/27/20 Ninfa Dietrich PharmD [address] [place] [address] Pharmacist Internal Medicine 11/10/23 [employer] 12/20/23 documented as of this encounter
--- OUTSIDE RECORDS SUMMARY | 2024-07-30 08:20 | XMS_ITS | Encounter Summary ---
Author Organization [employer] Address 75 [facility] 7t [place] [address] Care Team Providers Care Light Adjuster Name Role Phone Angela Luz MD Primary Care Provide r Ninfa Dietrich PharmD Unavailable [phone] Reason for Visit * Reason Comments Med Refill Encounter Details Date Type Department Care Team (Late st Contact Info) Description 07/25/2024 Refill [facility] MEDICINE 230 [place], [place] [phone] Angela Luz MD [address] [place], [place] [phone] Primary hypertension Social History Tobacco Use Types [...] Description 08/07/2024 9:30 AM EDT Medication Management [address] [address] Ninfa Dietrich PharmD [address] [place] [address] 08/21/2024 10:30 AM EDT Clinical Support [address] [address] Nazia Martins RN documented as of this [...] hypertension documented in this encounter Care Teams Light Adjuster Relationship Specialty Start Date End Date Angela Luz MD [address] [place] [address] PCP - General Family Medicine 10/27/20 Ninfa Dietrich, Shadia [address] [place] [address] [place] [address] Pharmacist Internal Medicine 11/10/23 [employer] 12/20/23 documented as of this encounter
--- OUTSIDE RECORDS SUMMARY | 2024-07-30 08:20 | XMS_ITS | Encounter Summary ---
Author Organization [employer] Address [address] [facility] [address] 7t [place] [address] Care Team Providers Care Inspector Type Name Role Phone Angela Luz MD Primary Care Provide r Ninfa Dietrich PharmD Unavailable Reason for Visit * Reason Comments Med Refill Encounter Details Date Type Department Care Team (Late st Contact Info) Description 07/26/2024 Refill [facility] [address] [place], [place] [phone] Angela Luz MD 230 [place], [place] [phone] Simple chronic bronchitis (CMS/HCC) Social History Tobacco Use Types Packs/Day [...] Description 08/07/2024 9:30 AM EDT Medication Management [address] [address] Ninfa Dietrich, LauraD [address] [place] [address] 08/21/2024 10:30 AM EDT Clinical Support [address] [address] Nazia Martins RN documented as of this encounter Goals Goal Patient Goal Type Associated Problems Recent Progress Patient-Stated? Author Blood Pressure < 140/90 Blood Pressure 142/44(2024 10:39 AM EST) No Ady Araujo Hemoglobin A1c < 8 Result Component 6.9( 10:18 AM EST) No Ady Araujo Note: Comorbidities: CHF, CKD, cirrhosis documented as of this encounter Visit Diagnoses Diagnosis Simple chronic bronchitis (CMS/HCC) Simple chronic bronchitis documented in this encounter Care Teams Inspector Type Relationship Specialty Start Date End Date Angela Luz MD 230 [place] [address] PCP - General Family Medicine 10/27/20 Ninfa Dietrich, Shadia [address] [place] [address] Pharmacist Internal Medicine 11/10/23 [employer] 12/20/23 documented as of this encounter
--- OUTSIDE RECORDS SUMMARY | 2024-07-30 08:20 | XMS_ITS | Encounter Summary ---
Author Organization [employer] Address 75 [facility] 7t [place] [address] Care Team Providers Care Tax Investigator Name Role Phone Angela Luz MD Primary Care Provide r Ninfa Dietrich PharmD Unavailable Reason for Visit * Reason Onset Date Comments Med Refill 11/11/2022 Encounter Details Date Type Department Care Team (Late st Contact Info) Description 11/11/2022 Refill [facility] MEDICINE 230 [place], [place] [phone] Angela Luz MD 230 [place], [place] [phone] Other chronic pain Social History Tobacco Use [...] Description 08/07/2024 9:30 AM EDT Medication Management [address] [address] Ninfa Dietrich PharmD [address] [place] [address] 08/21/2024 10:30 AM EDT Clinical Support [address] [address] Nazia Martins RN documented as of this encounter Visit Diagnoses Diagnosis Other chronic pain documented in this encounter Care Teams Tax Investigator Relationship Specialty Start Date End Date Angela Luz MD [address] [place] [address] PCP - General Family Medicine 10/27/20 Ninfa Dietrich PharmD [address] [place] [address] Pharmacist Internal Medicine 11/10/23 [employer] 12/20/23 documented as of this encounter
--- OUTSIDE RECORDS SUMMARY | 2024-07-30 08:20 | XMS_ITS | Encounter Summary ---
Author Organization [employer] Address [address] [facility] [address] 7t [place] [address] Care Team Providers Care Mental Health Nurse Practitioner Name Role Phone Angela Luz MD Primary Care Provide r Ninfa Dietrich PharmD Unavailable [phone] Reason for Visit * Reason Comments Med Refill Encounter Details Date Type Department Care Team (Late st Contact Info) Description 07/26/2024 Refill [facility] [address] [place], [place] [phone] Name, MD Jasper 230 [place] [address] Social History Tobacco Use Types Packs/Day Years [...] Description 08/07/2024 9:30 AM EDT Medication Management [address] [address] Ninfa Dietrich, PharmD [address] [place] [address] 08/21/2024 10:30 AM EDT Clinical Support [address] [address] Nazia Martins, DIAMOND documented as of this [...] on filedocumented in this encounter Care Teams Mental Health Nurse Practitioner Relationship Specialty Start Date End Date Angela Luz MD [address] [place] [address] PCP - General Family Medicine 10/27/20 Ninfa Dietrich, LauraD [address] [place] [address] Pharmacist Internal Medicine 11/10/23 [employer] 12/20/23 documented as of this encounter
--- OUTSIDE RECORDS SUMMARY | 2024-07-30 08:21 | XMS_ITS | Continuity of Care Document ---
Author Organization [facility] Address [address] [place] [address] [place] [phone] Phone Care Team Providers Care Unindentured Apprentice Name Role Phone Kierajulio Flaquito CHIN Unavailable Unavailabl e Procedures Procedure Date Therapeutic Activities Neuromuscular Re-Ed Therapeutic Exercise Hot or Cold Pack Therapeutic Activities Neuromuscular Re-Ed Therapeutic Exercise Manual Therapy Hot or Cold Pack Therapeutic Activities Neuromuscular Re-Ed Therapeutic Exercise Manual Therapy Hot or Cold Pack Neuromuscular Re-Ed Manual Therapy Hot or Cold Pack Therapeutic Activities Neuromuscular Re-Ed Therapeutic Exercise Manual Therapy Therapeutic Activities Neuromuscular Re-Ed Therapeutic Exercise Manual Therapy Hot or Cold Pack Therapeutic Activities Neuromuscular Re-Ed Therapeutic Exercise Manual Therapy Hot or Cold Pack Therapeutic Activities Therapeutic Exercise Neuromuscular Re-Ed Manual Therapy Hot or Cold Pack Progress Note Therapeutic Activities Neuromuscular Re-Ed Therapeutic Exercise Manual Therapy Hot or Cold Pack Therapeutic Activities Neuromuscular Re-Ed Therapeutic Exercise Manual Therapy Therapeutic Activities Neuromuscular Re-Ed Therapeutic Exercise Manual Therapy Therapeutic Activities Neuromuscular Re-Ed Therapeutic Exercise Manual Therapy Neuromuscular Re-Ed Therapeutic Exercise Manual Therapy Therapeutic Exercise Manual Therapy Hot or Cold Pack Therapeutic Activities Neuromuscular Re-Ed Therapeutic Exercise Manual Therapy Therapeutic Activities Neuromuscular Re-Ed Therapeutic Exercise Manual Therapy Therapeutic Activities Neuromuscular Re-Ed Therapeutic Exercise Manual Therapy Doc neg elder mal no plan PRES/ABSN URINE INCON ASSESS PT Evaluation Low Complexity Therapeutic Exercise Advance Directives Directive Yes / No Effective Date File Name No Information Encounters Encounter Description Practice Location Reason(s) For Visit Diagnoses Date Provider Providers Copied on Encounter [facility] [address], [id number], tel:[phone] Cecilia Ramos [place] No Information Mar- 3 Vianney Huddleston. . Referring Provider: Belgica Ferreira, [address], [place], [place], . tel:[phone] [place] [facility], [place], [place], [id number], tel:[phone] Cecilia - [place] No Information Mar- 3 Kieraicola Flaquito. . Referring Provider: Belgica Ferreira, [address] [place] [address], [place], [place], . tel:[phone] [facility], [address] [place] [address], [place], [place], [id number], [place] tel:[phone] [place] No Information 3 Eladio Donnie. . Referring Provider: Belgica Ferreira, [address] [place] [address], [place], . tel:[phone] [facility], [address] [place] [address], [place], [place], [id number], [place] tel:[phone] [place] No Information 3 Mackey Rosana. . Referring Provider: Belgica Ferreira, [address] [place] [address], [place], [place], . tel:[phone] [facility] [address] [place] [address], [place], [place], [id number], [place] tel:[phone] [place] No Information 3 Himelright Cheryl. . Referring Provider: Belgica Ferreira [address] [place] [address], [place], . tel:[phone] [facility], [address] [place] [address], [place], [place], [id number], tel:[phone] [place] - [place] No Information 3 Eladiovandana Fields. . Referring Provider: Belgica Ferreira [address] [place] [address], [place], . tel:[phone] [facility], [address] [facility] 300, [place], [place], [id number], [place] tel:[phone] [place] No Information 3 Mackey Rosana. . Referring Provider: Belgica Ferreira [facility] N [address] [place] [address], [place], . tel:[phone] [facility], 2[address] [facility] 300, [place], [place], [id number], tel:[phone] [place] No Information Nov-0 8-202 3 Mackey Rosana. . Referring Provider: Belgica Ferreira [address] [place] [address], [place], . tel:[phone] [facility], [address] [place] [address], [id number], tel:[phone] [place] - [place] No Information Nov-0 6-202 3 Cinicola Flaquito. . Referring Provider: Belgica Ferreira, [address] [place] [address], [place], . tel:[phone] [facility] [address] [place] [address], [id number], tel:[phone] [place] - [place] No Information Nov-0 3-202 3 Mackey Rosana. . Referring Provider: Belgica Ferreira [address] [place] [address], [place], . tel:[phone] [facility], [address] [place] [address], [id number], tel:[phone] [place] - [place] No Information Nov-0 1-202 3 Mackey Rosana. . Referring Provider: Belgica Ferreira [address] [place] [address], [place], . tel:[phone] [facility] [address], [id number], tel:[phone] [place] - [place] No Information Oct-3 0-202 3 Mackey Rosana. . Referring Provider: Belgica Ferreira [address] [place] [address], [place], . tel:[phone] [facility], [address], [id number], tel:[phone] [place] - [place] No Information Oct-2 7-202 3 Himelright Cheryl. . Referring Provider: Belgica Ferreira [address] [place] [address] [place], . tel:[phone] [facility] [address] [place] [address], [id number], tel:[phone] [place] No Information 3 Mackey Rosana. . Referring Provider: Belgica Ferreira, [address] [place] [address], [place], . tel:[phone] [facility] [address] [place] [address], [id number], [place] tel:[phone] [place] No Information 3 Mackey Rosana. . Referring Provider: Belgica Ferreira, [address] [place] [address], [place], . tel:[phone] [facility] [address] [place] [address], [id number], tel:[phone] [place] No Information 3 Mackey Rosana. . Referring Provider: Belgica Ferreira [address] [place] [address], [place], . tel:[phone] [facility] [address] [place] [address], [id number], tel:[phone] [place] No Information 3 Cinicola Flaquito. . Referring Provider: Blegica Ferreira [address] [place] [address], [place], . tel:[phone] [facility] [address], [id number], [place] tel:[phone] [place] - [place] No Information 3 Cinicola Flaquito. . Referring Provider: Belgica Ferreira [address] [place] [address], [place], . tel:[phone] Family History Family Member Type Diagnosis Age At Onset No Information Payers Payer name Insurance type Covered republican ID Authoriza tion(s) [employer] Medicare Replacement [id number] Social History Type Description Quantity Date Captured Comments Sex Female Smoking Status No Information Chief Complaint And Reason For Visit No Information Reason For Referral Reason For Referral No Information History Of Present Illness Encounter Date Complaint History Of Prese nt Illness No Information Functional Status Date Functional Assessmen t No Information Instructions Date Instruction Additional Infor ervin Giving encouragement to exercise Related to Overweight Giving encouragement to exercise Related to Overweight Assessments Type Assessment Date No Information Patient Care Teams Name Effective Dates (start - stop) Status Members No Information
--- OUTSIDE RECORDS SUMMARY | 2024-07-30 08:21 | XMS_ITS | Encounter Summary ---
Author Organization [employer] Address 75 [facility] 7t [place] [address] Care Team Providers Care Metal Shaping Machine Operator Name Role Phone Angela Luz MD Primary Care Provide r Ninfa Dietrich PharmD Unavailable [phone] Reason for Visit * Reason Onset Date Comments Med Refill 05/30/2023 Encounter Details Date Type Department Care Team (Late st Contact Info) Description 05/30/2023 Refill [facility] MEDICINE 230 [place], [place] [phone] Angela Luz MD 230 [place], [place] [phone] Type 2 diabetes mellitus with other specified complication, unspecified whether alf insulin use (CMS/HCC); Type 2 diabetes mellitus [...] Description 08/07/2024 9:30 AM EDT Medication Management [address] [address] Ninfa Dietrich PharmD [address] [place] [address] 08/21/2024 10:30 AM EDT Clinical Support [address] [address] Nazia Martins RN documented as of this encounter Visit Diagnoses Diagnosis Type 2 diabetes mellitus with other specified complication, unspecified whether ocean transportation intermediary insulin use (CMS/[facility]) Type 2 diabetes mellitus with stage 3 chronic kidney disease, with long-term current use of insulin, unspecified whether stage 3a or 3b CKD (CMS/[facility]) Other chronic pain documented in this encounter Care Teams Metal Shaping Machine Operator Relationship Specialty Start Date End Date Angela Luz MD [address] [place] [address] PCP - General Family Medicine 10/27/20 Ninfa Dietrich, PharmD 230 [place] [address] Pharmacist Internal Medicine 11/10/23 [employer] 12/20/23 documented as of this encounter
--- OUTSIDE RECORDS SUMMARY | 2024-07-30 08:21 | XMS_ITS | Encounter Summary ---
Author Organization [employer] Address 75 [facility] 7t [place] [address] Care Team Providers Care Reception Name Role Phone Angela Luz MD Primary Care Provide r Ninfa Dietrich PharmD Unavailable [phone] Reason for Visit * Reason Onset Date Comments Med Refill 12/04/2023 Encounter Details Date Type Department Care Team (Late st Contact Info) Description 12/04/2023 Refill [facility] MEDICINE 230 [place], [place] [phone] Angela Luz MD 230 [place], [place] [phone] Other chronic pain Social History Tobacco Use [...] Description 08/07/2024 9:30 AM EDT Medication Management [address] [address] Ninfa Dietrich PharmD [address] [place] [address] 08/21/2024 10:30 AM EDT Clinical Support [address] [address] Nazia Martins RN documented as of this [...] pain documented in this encounter Care Teams Reception Relationship Specialty Start Date End Date Angela Luz MD [address] [place] [address] PCP - General Family Medicine 10/27/20 Ninfa Dietrich PharmD [address] [place] [address] Pharmacist Internal Medicine 11/10/23 [employer] 12/20/23 documented as of this encounter
--- OUTSIDE RECORDS SUMMARY | 2024-07-30 08:21 | XMS_ITS | Clinical Summary ---
Author Organization [facility] Address [address] [place] [address] Phone Care Team Providers Care Gastroenterology Nurse Practitioner Name Role Phone Angela Luz [...] Due COVID-19 (Pfizer/Comirnaty) 12yo and older 06/28/2023 [email or web address] SARS-CoV-2 COVID-19, mRNA, LNP-S, preservative free 06/10/2022,10/07/2021,03/02/2021,2020,07/02/2020 [...] 2 diabetes mellitus wit h diabetic neuropathy ([facility]/HCC) DX:Type 2 diabetes mellitus with diabetic neuropathy (HCC) Heel pain DX:Heel pain Venous insufficiency DX:Venous i nsufficiency HTN, goal below 140/80 DX:HTN, g oal below 140/80 Vitamin B12 deficiency anemia DX :Vitamin B12 deficiency anemia Allergic rhinitis DX:Allergic rh initis Solitary pulmonary nodule DX:Alisa itary pulmonary nodule Nonproliferative diabetic re tinopathy associated with type 2 diabetes mellitus ([facility]/HCC) DX:Nonproliferative diabetic retinopathy associated with type 2 diabetes mellitus ([facility]) Mild obstructive sleep apnea DX: Mild obstructive sleep apnea RLS (restless legs syndrome) DX: RLS (restless legs syndrome) Anemia DX:Anemia PAD (peripheral artery disease) ([facility]) DX:PAD (peripheral artery disease) ([facility]) Hyperlipidemia DX:Hyperlipidemi a Essential hypertension, benign D X:Essential hypertension, benign Glaucoma DX:Glaucoma DM (diabetes mellitus) type II controlled, neurological manifestation ([facility]) DX:DM (diabetes m ellitus) type II controlled, neurological manifestation ([facility]) Breast cancer ([facility]) Social History Tobacco Use Types Packs/Day Years [...] Description 11/25/2024 9:00 AM EDT Office Visit [facility] Hematology Oncology [address] [place] [phone] Nabeel March MD [address] [place] [address] Health Maintenance Due Date Last Done Comments [...] Signed Date: 04/19/2024 14:13 ET Workstation ID: [id number] Transcribed By: Self Edit Transcribed Date: 04/19/2024 [...] Tomosynthesis Computer-aided detection was employed with the [employer] AI 3-D. TISSUE DENSITY: The breasts are [...] Signed Date: 04/19/2024 14:13 ET Workstation ID: [id number] Transcribed By: Self Edit Transcribed Date: 04/19/2024 [...] probability of hip fracture of 4.0%. Code 05186 -------- FINAL REPORT -------- Dictated By: Joby Brand Dictated Date: 04/19/2024 09:53 ET Assigned Physician: Joby Brand Reviewed and Electronically Signed By: Joby Brand Signed Date: 04/19/2024 09:54 ET Workstation ID: [id number] Transcribed By: Self Edit Transcribed Date: 04/19/2024 [...] density of the femurs bilaterally is 0.907 gm/wv3glzgw is 90% of that of young normals [...] probability of hip fracture of 4.0%. Code 00700 -------- FINAL REPORT -------- Dictated By: Joby Brand Dictated Date: 04/19/2024 09:53 ET Assigned Physician: Joby Brand Reviewed and Electronically Signed By: Joby Brand Signed Date: 04/19/2024 09:54 ET Workstation ID: [id number] Transcribed By: Self Edit Transcribed Date: 04/19/2024 09:53 ET us Nabeel March MD IM DXA PROCEDURES Final Res ult * Lipid panel (05/23/2023) [facility] Triglycerides 0 mg/dL Comment:No interpretation Cholesterol 0 mg/dL Comment:No interpretation HDL 0 mg/dL Comment:No interpretation LDL Cholesterol 0 mg/dL Comment:No interpretation Blood Venous blood specimen / Unknown Result [facility] Provider LAB BLOOD ORDERABLES Ruthy l Result * Urine Albumin Creatinine Ratio (10/07/2022) Pathologist [facility] Urine Albumin Creatinine Ratio Abstracted Result [facility] Provider HEALTH MAINTENANCE Final Result * Annual BMP Blood Test (01/13/2022) [facility] Annual BMP Blood Test Abstracted Result [facility] HEALTH MAINTENANCE Final Result * Hepatitis C Screening (11/17/2021) [facility] Hepatitis C Screening Abstracted Result [facility] HEALTH MAINTENANCE Final Result * Hemoglobin A1c (03/29/2021) [facility] Hemoglobin A1C 0.0 % Comment:No interpretation Blood Venous blood specimen / Unknown Result [facility] LAB BLOOD ORDERABLES Ruthy l Result from Last 3 Months or Most Recently Relevant to Health Maintenance Insurance [facility] MEDICARE Member Subscriber Plan / Payer (Ef fective 2023-Present) Name:Angela Dominguez Relation to Subscriber:Self Name:Angela Dominguez Payer ID:[id number] Group ID:[id number] Type:Not on file Address: [place] [address] [place] [id number] Care Teams Gastroenterology Nurse Practitioner Relationship Specialty Start Date End Date Angela Luz MD 230 [facility] [address] [place] [address] PCP - General Internal Medicine 01/28/21
--- OUTSIDE RECORDS SUMMARY | 2024-07-30 08:21 | XMS_ITS | Encounter Summary ---
Author Organization [employer] Address [address] [facility] [address] 7t [place] [address] Care Team Providers Care Bill Of Lading Clerk Name Role Phone Angela Luz MD Primary Care Provide r Ninfa Dietrich PharmD Unavailable [phone] Reason for Visit * Reason Onset Date Comments Med Refill 05/30/2023 Encounter Details Date Type Department Care Team (Late st Contact Info) Description 05/30/2023 Refill [facility] CHC MED & PEDS [address] [place], [place] [phone] Balwinder Kumar MD [address] [place], [place] [phone] Seasonal allergic rhinitis, unspecified trigger Social History [...] Description 08/07/2024 9:30 AM EDT Medication Management [address] [address] Ninfa Dietrich PharmD [address] [place] [address] 08/21/2024 10:30 AM EDT Clinical Support [address] [address] Nazia Martins RN documented as of this encounter Visit Diagnoses Diagnosis Seasonal allergic rhinitis, unspecified trigger documented in this encounter Care Teams Bill Of Lading Clerk Relationship Specialty Start Date End Date Angela Luz MD [address] [place] [address] PCP - General Family Medicine 10/27/20 Ninfa Dietrich PharmD [address] [place] [address] Pharmacist Internal Medicine 11/10/23 [employer] 12/20/23 documented as of this encounter
--- OUTSIDE RECORDS SUMMARY | 2024-07-30 08:21 | XMS_ITS | Encounter Summary ---
Author Organization [employer] Address [address] [facility] [address] 7t [place] [address] Care Team Providers Care Construction Framer Name Role Phone Angela Luz MD Primary Care Provide r Ninfa Dietrich PharmD Unavailable [phone] Reason for Visit * Reason Onset Date Comments Med Refill 05/30/2023 Encounter Details Date Type Department Care Team (Late st Contact Info) Description 05/30/2023 Refill [facility] CHC MED & PEDS [address] [place], [place] [phone] Angela Luz MD [address] [place], [place] [phone] Primary hypertension Social History Tobacco Use Types [...] Description 08/07/2024 9:30 AM EDT Medication Management [address] [address] Ninfa Dietrich PharmD [address] [place] [address] 08/21/2024 10:30 AM EDT Clinical Support [address] [address] Nazia Martins RN documented as of this encounter Visit Diagnoses Diagnosis Primary hypertension Unspecified essential hypertension documented in this encounter Care Teams Construction Framer Relationship Specialty Start Date End Date Angela Luz MD [address] [place] [address] PCP - General Family Medicine 10/27/20 Ninfa Dietrcih PharmD [address] [place] [address] Pharmacist Internal Medicine 11/10/23 [employer] 12/20/23 documented as of this encounter
--- OUTSIDE RECORDS SUMMARY | 2024-07-30 08:21 | XMS_ITS | Encounter Summary ---
Author Organization [employer] Address [address] [facility] 7t [place] [address] Care Team Providers Care Customer Specialist Name Role Phone Angela Luz MD Primary Care Provide r Ninfa Dietrich PharmD Unavailable Reason for Visit * Reason Comments Med Refill Encounter Details Date Type Department Care Team (Late Contact Info) Description 12/05/2022 Refill [facility] CHC MED & PEDS [address] [place] [address] Angela Luz MD [address] [place] [address] Diabetic polyneuropathy associated with type 2 diabetes [...] Description 08/07/2024 9:30 AM EDT Medication Management [facility] MEDICINE [address] [place] [address] Ninfa Dietrich PharmD [address] [place] [address] 08/21/2024 10:30 AM EDT Clinical Support [address] [address] Nazia Martins RN documented as of this encounter Visit Diagnoses Diagnosis Diabetic polyneuropathy associated with type 2 diabetes mellitus ([facility]) Primary hypertension Unspecified essential hypertension Chronic right-sided thoracic back pain documented in this encounter Care Teams Customer Specialist Relationship Specialty Start Date End Date Angela Luz MD [address] [place] [address] PCP - General Family Medicine 10/27/20 Ninfa Dietrich PharmD [address] [place] [address] Pharmacist Internal Medicine 11/10/23 [employer] 12/20/23 documented as of this encounter
--- OUTSIDE RECORDS SUMMARY | 2024-07-30 08:22 | XMS_ITS | Encounter Summary ---
Author Organization [employer] Address [address] [facility] 7t [place] [address] Care Team Providers Care Therapeutic Specialist Name Role Phone Angela Luz MD Primary Care Provide r Ninfa Dietrich PharmD Unavailable [phone] Encounter Details Date Type Department Care Team [...] Description 08/07/2024 9:30 AM EDT Medication Management [address] [address] Ninfa Dietrich PharmD [address] [place] [address] 08/21/2024 10:30 AM EDT Clinical Support [address] [address] Nazia Martins RN documented as of this [...] PROTHROMBIN TIME-INR Routine 07/22/2024 10:21 AM EST FERRITIN Routine 07/22/2024 10:21 AM EST COMPREHENSIVE METABOLIC PANEL Routine 07/22/2024 10:21 AM EST documented in this encounter Results * (ABNORMAL) Ferritin (07/22/2024 10:21 AM EST) Ferritin 435(H) 10 - 250 ng/mL [facility] 07/22/2024 10:2 1 AM EST 07/22/2024 10:21 AM EST us Generic External Data Provider LAB BLOOD ORDERAB LES Final Result [facility] [address] [place] [phone] * (ABNORMAL) Comprehensive Metabolic Panel (07/22/2024 10:21 AM EST) Sodium 142 135 - 145 mmol/L [facility] Potassium 4.6 3.3 - 5.1 mmol/L [facility] Chloride 103 96 - 108 mmol/L [facility] Carbon Dioxide 29 22 - 29 mmol/L [facility] Anion Gap 15 12 - 20 [facility] Urea Nitrogen (BUN) 36(H) 9 - 16 mg/dL [facility] Creatinine, Serum 1.46(H) 0.5 - 1.4 mg/dL [facility] Estimated Glomerular Filt Rate 36 [facility] Comment:Chronic Kidney Disea se: Estimated GFR < 60 mL/min/1.53a2Kuvmfj Kidney Disease: Estimated GFR < 15 mL/min/1.73m2 Glucose 105 60 - 115 mg/dL [facility] Calcium 9.6 8.4 - 10.2 mg/dL [facility] Bilirubin, Total 0.5 0.0 - 1.0 mg/dL [facility] Aspartate Amino Transferase 37(H) 5 - 31 U/L [facility] Alanine Aminotransferase 27 0 - 31 U/L [facility] Total Protein 8.1(H) 6.5 - 8.0 g/dL [facility] Albumin Level 4.0 3.5 - 5.0 g/dL [facility] Alkaline Phosphatase 129(H) 39 - 117 U/L [facility] 07/22/2024 10:2 1 AM EST 07/22/2024 10:21 AM EST us Generic External Data Provider LAB BLOOD ORDERAB LES Final Result Performing Organization Address [facility]/ZIP Co de Phone Number [facility] [address] [place] [phone] * Prothrombin Time-INR (07/22/2024 10:21 AM EST) Prothrombin Time 12.0 10.9 - 12.4 SEC [facility] INTERNATIONAL NORM RATIO 1.0 0.9 - 1.1 [facility] Comment:INTERNATIONAL NORMAL IZED RATIO (INR) REFERENCE [...] ORDERAB LES Final Result Performing Organization Address [facility]/ZIP Co de Phone Number [facility] [address] [place] [phone] * (ABNORMAL) CBC auto differential (07/22/2024 10:21 AM EST) White Blood Count 5.2 4.8 - 10.8 X10*3/uL [facility] Red Blood Count 4.45 4.20 - 5.50 X10*6/uL [facility] Hemoglobin 11.7(L) 12.0 - 16.0 g/dl [facility] Hematocrit 35.5(L) 37.0 - 47.0 % [facility] Mean Corpuscular Volume 79.8(L) 80.0 - 98.0 fL [facility] Mean Corpuscular Hemoglobin 26.3(L) 27.0 - 33.0 pg [facility] Mean Corpuscular HGB Conc 33.0 31.0 - 35.0 g/dl [facility] Red Cell Distribution Width 20.4(H) 11.0 - 16.0 % [facility] Platelet Count 141(L) 160 - 400 X10*3/uL [facility] Comment:Test was verified by repeat analysis. Mean Platelet Volume 9.3(L) 9.4 - 12.3 fL [facility] Neutrophils Percent Auto 58.2 45 - 73 % [facility] Imm Gran Pct Auto 0.4 0.0 - 0.4 % [facility] Lymphocytes Percent Auto 27.4 20 - 40 % [facility] Monocytes Percent Auto 7.5 2 - 11 % [facility] Eosinophils Percent Auto 5.7(H) 0 - 4 % [facility] Basophils Percent Auto 0.8 0 - 2 % [facility] NRBC Pct Auto 0.0 0.0 - 0.2 /100WBC [facility] Neutrophils Absolute Auto 3.0 2.0 - 8.3 x10*3/uL [facility] Imm Gran Abs Auto 0.02 0.00 - 0.03 X10*3/uL [facility] Lymphocytes Absolute Auto 1.4 1.2 - 4.9 X10*3/uL [facility] Monocytes Absolute Auto 0.4 0.1 - 1.2 X10*3/uL [facility] Eosinophils Absolute Auto 0.3 0.0 - 0.4 X10*3/uL [facility] Basophils Absolute Auto 0.0 0.0 - 0.2 X10*3/uL [facility] NRBC Abs Auto 0.000 0.0 - 0.012 X10*3/uL [facility] 07/22/2024 10:2 1 AM EST 07/22/2024 10:21 AM EST us Generic External Data Provider LAB BLOOD ORDERAB LES Final Result [facility] [address] [place] [phone] documented in this encounter Visit Diagnoses Not on filedocumented in this encounter Care Teams Therapeutic Specialist Relationship Specialty Start Date End Date Angela Luz MD [address] [place] [address] PCP - General Family Medicine 10/27/20 Ninfa Dietrich PharmD [address] [place] [address] Pharmacist Internal Medicine 11/10/23 [employer] 12/20/23 documented as of this encounter
--- OUTSIDE RECORDS SUMMARY | 2024-07-30 08:22 | XMS_ITS ---
Author Organization [facility] [place] [address] Care Team Providers Care Dietary Internship Name Role Phone Angela Luz Primary Care Provider Jen vailable Dunia Trevino Unavailable [phone] Marissa Piper Unavailable [phone] REASON FOR VISIT MDS/FA Assessment Encounters Encounter Location Date Provider Diagnosis [facility] [address] [facility] [place] [address] 07/19/2024 Marissa Piper Plan Of Treatment Next Appt Details Provider Name:Dunia Cortes, 09/25/2024 10:30:00 AM, [address] [facility] [place], [address], Progress Notes * Angela MATUTE SDOB :1955 (68 yo F)Acc No.[id number]:07/19/2024 Patient:?Helder MATUTE ??External Provider:?Marissa Piper RN :1955???Age:68 Y???Sex:Female D ate:07/19/2024 Address:[address] [place] [address], [address] , [place], [id number] Pcp:Angela Haley Patient's Default Facility:[facility] Subjective: * Chief Complaints: * ???1. [...] Piper RN Date:? 025 Generated for Stephen ying/Nelda/eTlorenasmitting on:?07/30/2024 08:22 AM EDT
--- OUTSIDE RECORDS SUMMARY | 2024-07-30 08:22 | XMS_ITS | Encounter Summary ---
Author Organization [employer] Address [address] [facility] 7t [place] [address] Care Team Providers Care Filterer Name Role Phone Angela Luz MD Primary Care Provide r Ninfa Dietrich PharmD Unavailable [phone] Reason for Visit * Reason Comments Med Refill Encounter Details Date Type Department Care Team ([facility] Contact Info) Description 06/30/2022 Refill [facility] CHC MED & PEDS [address] [place] [address] Balwinder Kumar MD [address] [place] [address] Social History Tobacco Use Types Packs/Day Years [...] Encounters Date Type Department Care Team ([facility] Contact Info) Description 08/07/2024 9:30 AM EDT Medication Management [address] [address] Ninfa Dietrich PharmD [address] [place] [address] 08/21/2024 10:30 AM EDT Clinical Support [address] [address] Nazia Martins RN documented as of this encounter Visit Diagnoses Not on filedocumented in this encounter Care Teams Filterer Relationship Specialty Start Date End Date Angela Luz MD [address] [place] [address] PCP - General Family Medicine 10/27/20 Ninfa Dietrich PharmD [address] [place] [address] Pharmacist Internal Medicine 11/10/23 [employer] 12/20/23 documented as of this encounter
--- OUTSIDE RECORDS SUMMARY | 2024-07-30 08:22 | XMS_ITS | Data Portability ---
Author Organization [employer] [facility] [place] [facility] [employer] Address [address] [place] [phone] Care Team Providers Care French Pastry Cook Name Role Phone [facility] Referring Provider Assessment Encounter Date Assessment Date Assessment LastModified [...] Go To The Location Of Their Choice, [address] 11:32:54 Referral None recorded. Procedures None recorded. Surgeries None recorded. Imaging None recorded. Medication Orders torsemide 40 mg tablet 2021 [facility], [address] [place] [address], [id number], 14:01:21 valacyclovi r 1 gram tablet 2021 [facility], [address] [place] [address], [id number], 15:01:13 Patient TargetsNo targets recorded. Patient InstructionsNo instructions recorded. Reason for Referral None Reported. Medical Equipment None Reported. Allergies Allergen ID Allergen Name Allergen Category Reaction Reaction Severity Criticality Documentation Date Start Date Code Code System Note Provider Name and Address Organization Details Recorded Time 8628 latex environme nt,medica tion Not available Not available Not available 03/19/2024 65658 91 RxNorm Not Available [employer] - production [...] % 65 /min 65 /min 12 /min 83589.7 2 g 98.4 [degF] 98 % 98 % 146 mm[Hg] 52 mm[Hg] 146 mm[Hg] 52 mm[Hg] Not Available [employer] - production 11:35:05 Date Recorded Respiratory rate Heart rate Oxygen saturation Oxygen saturation in Arterial blood by Pulse oximetry Body temperature Systolic blood pressure Diastolic blood pressure Provider Name and Address Organization Details Last Updated DateTime 2 18 /min 62 /min 97 % 97 % 98.1 [degF] 135 mm[Hg] 86 mm[Hg] Not Available [employer] - production 13:40:32 Social History None recorded. [...] 366 Pete Cunha MD Main - [facility] [address] [place] [phone] 07/27/2021 13:19:49 01/21/2022 11:58:08 Fatigue 90088563 R53.83 5473 Kanchan Meza MD Main - [facility] [address] [place] [phone] 04/11/2022 11:34:58 04/13/2022 12:51:20 Herpes zoster 7892848 B02.9 5556 Remi Ríos MD Main - [address] [phone] 04/13/2022 13:40:15 04/15/2022 10:51:28 Chronic systolic heart failure 541195673 I50.22 This 66-year-ol d female with a history of type 2 diabetes and [facility] and exertional dyspnea without chest pain. Her EKG was unremarkab le. I ordered Lasix 40 mg IV and I called in a refill for her Demadex 40 mg bid. She will follow-up with her PCP. She will call 911 if her condition worsens. The patient agreed with this plan. Hyperglyce renato due to type 2 diabetes mellitus [id number] [address] E11.65 This 66-year-ol d female with poorly [...] Jin Member ID Guarantor Name 07/27/2021 1 [facility] - DOS PRIOR TO 2022 - DUAL ELIGIBLE (MEDICARE REPLACEMENT/ADV ANTAGE - HMO) Angela Dominguez Josh [id number] Angela Dominguez Josh 04/11/2022 1 [facility] - DOS PRIOR TO 2022 - DUAL ELIGIBLE (MEDICARE REPLACEMENT/ADV ANTAGE - HMO) Angela Dominguez Moreno [id number] Angela Dominguez Moreno 04/13/2022 1 [facility] - DOS PRIOR TO 2022 - DUAL ELIGIBLE (MEDICARE REPLACEMENT/ADV ANTAGE - HMO) Angela Dominguez Moreno [id number] Angela Paza Notes Date Note Type Note [...] increased LE swelling. Pete Cunha MD [address] [facility],[address], [place], [address], [employer] 07/27/2021 15:37:23 04/11/2022 text/html HPI: 66 y/o [...] ................... ................... ................... ................... ................... ................... ........ Barrel Painter Note: Dispatched to the home of 66-year-old [...] ................... ........ Disposition: Fulfilled Kanchan Meza MD [address] [place] [address],[address] [facility], [place], [address], [employer] 04/13/2022 09:19:05 04/13/2022 text/html HPI: This RN who has not seen member with hx. of CHF since 12/22/21 received call from member's daughter Nora, who reports member has had a 5lb. weight gain in the past 2 days with some increased SOB. Daughter did call firmware software verification engineer who is not in the office. ................... ................... ................... ................... ................... ................... ................... ........ CRC Nursing Assessment: Comments: CRC RN DID NOT NEED FURTHER INFO Remi Ríos MD [address] [place] [address],[address], [place], [phone], FROD - [employer] 04/13/2022 13:53:09 OBGyn Episode No OBEpisode recorded.
--- OUTSIDE RECORDS SUMMARY | 2024-07-30 08:22 | XMS_ITS ---
Author Organization [facility] Address [address] [place] [address] Care Team Providers Care Size Marker Name Role Phone Angela Luz Primary Care Provider Jen vailable Dunia Trevino Unavailable [phone] Christie Preciado Unavailable [phone] Allergies Allergen (clinical drug ingredient) Drug/Non Drug [...] Active Encounters Encounter Location Date Provider Diagnosis [facility] (Closed) [address] [place] [address] 07/19/2024 Christie Preciado Breast cancer, right breast [...] diabetes mellitus with diabetic cataract, unspecified whether custodial insulin use E11.36 ; Type 2 diabetes [...] (severe) N18.4 ; BMI 27.0-27.9,adult Z68.27 ; long term care phlebotomist (current) use of insulin Z79.4 ; prison (current) use of aspirin Z79.82 ; long term care phlebotomist current use of oral hypoglycemic drug Z79.84 ; Long-term current use of injectable noninsulin antidiabetic medication Z79.85 ; prison (current) use of opiate analgesic Z79.891 and [...] diabetes mellitus with diabetic cataract, unspecified whether 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 supervisor insulin use (ICD-10 - E11.36) 07/19/2024 Type [...] right eye (ICD-10 - H54.62) Recommended by [facility] 07/19/2024 Hypertensive heart and chronic kidney disease [...] induced constipation (ICD-10 - K59.03) Recommended by [facility] 07/19/2024 Osteoarthritis of multiple joints (ICD-10 - M15.9) 07/19/2024 Osteoporosis (ICD-10 - M81.0) 07/19/2024 Chronic kidney disease, stage 4 (severe) (ICD-10 - N18.4) 07/19/2024 BMI 27.0-27.9,adult (ICD-10 - Z68.27) 07/19/2024 long term care phlebotomist (current) use of insulin (ICD-10 - Z79.4) 07/19/2024 prison (current) use of aspirin (ICD-10 - Z79.82) 07/19/2024 long term care phlebotomist current use of oral hypoglycemic drug (ICD-10 - Z79.84) 07/19/2024 Long-term current use of injectable noninsulin antidiabetic medication (ICD-10 - Z79.85) 07/19/2024 prison (current) use of opiate analgesic (ICD-10 - Z79.891) 07/19/2024 S/P cardiac pacemaker procedure (ICD-10 - Z95.0) Plan Of Treatment Next Appt Details Provider Name:Dunia Richard mario, 09/25/2024 10:30:00 AM, [address], [place], [address], Progress Notes * MIO COMBS Angela SDOB :1955 (68 yo F)Acc No.[id number]:07/19/2024 Patient:?MIO COMBSHeledr ??External Provider:?Christ[facility]ado [facility], [facility] :1955???Age:68 Y???Sex:Female D ate:07/19/2024 Address:[address] [place], [place] [phone] Pcp:Angela Haley Patient's Default Facility:[facility] Subjective: * Chief Complaints: * ???MDS [...] or any household member traveled abroad or zux-pn-zpalz or been on a cruise ship in [...] diabetes mellitus with diabetic cataract, unspecified whether custodial insulin use - E11.36???7.?Type 2 diabetes mellitus [...] 4 (severe) - N18.4? ?23.?BMI 27.0-27.9,adult - Z68.27???24.?prison (current) use of insulin - Z79.4???25.?long term care phlebotomist (current) use of aspirin - Z79.82???26.?prison current use of oral hypoglycemic drug - Z79.84???27.?Long-term current use of injectable noninsulin antidiabetic medication - Z79.85???28.?prison (current) use of opiate analgesic - Z79.891???29.?S/P cardiac pacemaker procedure - Z95.0??? Plan: * Treatment: * Procedure Codes:? Care Plan: * Problems:? * * Sign off status: Completed true * Provider:?Christie Preciado RN, CCACG W est Date:?07/19/2024 Generated for Printing/Faxing/eTransmitting on:?07/30/2024 08:21 AM EDT History and Physical Notes * [...] any household memb er traveled abroad or wbo-cc-mffcb or been on a cruise ship in the past 14 days: : No
--- OUTSIDE RECORDS SUMMARY | 2024-07-30 08:22 | XMS_ITS | Encounter Summary ---
Author Organization [employer] Address [address] [facility] 7t [place] [address] Care Team Providers Care E Mail System Administrator Name Role Phone Angela Luz MD Primary Care Provide r Ninfa Dietrich PharmD Unavailable Reason for Visit * Reason Comments Med Refill Encounter Details Date Type Department [facility] Team [facility] Description 06/30/2022 Refill [facility] CH[facility] MED & PEDS [address] [place] [address] Yunier Mohr MD [address] [place] [address] Seasonal allergic rhinitis, unspecified trigger Social History [...] Upcoming Encounters Date Type Department Care Team ([facility] Contact Info) Description 08/07/2024 9:30 AM EDT Medication Management [address] [address] Ninfa Dietrich PharmD [address] [place] [address] 08/21/2024 10:30 AM EDT Clinical Support [address] [address] Nazia Martins RN documented as of this encounter Visit Diagnoses Diagnosis Seasonal allergic rhinitis, unspecified trigger documented in this encounter Care Teams E Mail System Administrator Relationship Specialty Start Date End Date Angela Luz MD [address] [place] [address] PCP - General Family Medicine 10/27/20 Ninfa Dietrich PharmD [address] [place] [address] Pharmacist Internal Medicine 11/10/23 [employer] 12/20/23 documented as of this encounter
--- OUTSIDE RECORDS SUMMARY | 2024-07-30 08:22 | XMS_ITS | Clinical Summary ---
Author Organization [facility] Facility Address [address] [place] [address] Care Team Providers Care Core Winding Operator Name Role Phone Angela Luz MD [...] before bedtime. 180 tablet 3 05/08/2023 Active calcitriol (ROCALTROL) 0.25 MCG capsule TAKE 1 CAPSULE BY MOUTH EVERY OTHER DAY IN THE MORNING 45 capsule 04/08/2024 Active Farxiga 10 MG tablet TAKE 1 TABLET BY MOUTH EVERY MORNING 90 tablet 3 05/01/2024 Active torsemide (DEMADEX) 20 MG tabletIndicatio ns:Hypertension ,Type 2 diabetes mellitus with diabetic chronic kidney disease (HCC),Anemia in chronic kidney disease,Iron deficiency anemia, not otherwise specified TAKE 1 TABLET BY MOUTH TWICE DAILY IN THE MORNING AND IN THE EVENING 180 tablet 2 06/27/2024 Active Active Problems Problem Noted Date Diagnosed [...] 06/11/2012 Overview (07/20/2020): 01/[address] in [place] Last CT (abd) 06/02/12 - 5x7 pulm nodule, recommended rpt CT to confirm 2 years of stability. Obstructive sleep apnea 01/31/201212/21 Restless legs 10/06/2011 01/11/2021 Glaucoma 02/15/2011 01/11/2021 Hyperlipidemia 02/15/2011 01/11/2021 Encounters Date Type Department Care Team Description 06/26/2024 Refill [facility] [address] [place] [address] Beau Vargas MD Hypertension; Type 2 diabetes mellitus with diabetic chronic kidney disease (HCC); Anemia in chronic kidney disease; Iron deficiency anemia, not otherwise specified 05/01/2024 Refill [facility] [address] [place] [address] Beau Vargas MD from Last 3 Months [...] Visit [facility] [address] [place] [address] Beau Vargas MD [address] [place] [address] Health Maintenance Due Date Last Done Comments [...] 03/26/2024, , 03/14/2020, Additional history exists Insurance [facility] ([id number]) [facility] ([id number]) Care Teams Core Winding Operator Relationship Specialty Start Date End Date Angela Luz MD [address] [place] [address] [place] [address] PCP - General Internal Medicine 01/12/21
[2024-07-30 08:28] LABS: MANUAL DIFF FLAG NO
[2024-07-30 09:42] LABS: Basophils Percent Auto 0.6 % (0-2); Eosinophils Absolute Auto 0.3 X10*3/uL (0.0-0.4); Eosinophils Percent Auto 6.5 % (0-4); Hematocrit 35.8 % (37.0-47.0); Imm Gran Abs Auto 0.03 X10*3/uL (0.00-0.03); Imm Gran Pct Auto 0.6 % (0.0-0.4); Lymphocytes Absolute Auto 1.6 X10*3/uL (1.2-4.9); Mean Corpuscular HGB Conc 33.5 g/dl (31.0-35.0); Mean Corpuscular Hemoglobin 26.7 pg (27.0-33.0); Mean Corpuscular Volume 79.7 fL (80.0-98.0); Mean Platelet Volume 9.4 fL (9.4-12.3); Monocytes Absolute Auto 0.5 X10*3/uL (0.1-1.2); Monocytes Percent Auto 9.9 % (2-11); Neutrophils Absolute Auto 2.7 x10*3/uL (2.0-8.3); Neutrophils Percent Auto 51.4 % (45-73); Platelet Count 179 X10*3/uL (160-400); Red Blood Count 4.49 X10*6/uL (4.20-5.50); Red Cell Distribution Width 18.8 % (11.0-16.0); White Blood Count 5.3 X10*3/uL (4.8-10.8)
[2024-07-30 10:03] LABS: Appearance Urine Cloudy; Color Urine Yellow; Glucose Urine UA >=1000 mg/dL (Negative); Leukocyte Esterase Urine Moderate (2+) (Negative); Nitrite Urine Negative (Negative); PH 5.5 (5.0-9.0); Specific Gravity - Urine 1.015 (1.005-1.025); UMIC TRIGGER UA YES; Urine Blood Negative (Negative); Urine Ketones Negative (Negative); Urine Protein Negative (Neg-Trace)
[2024-07-30 10:09] LABS: Bacteria Urine 4+ (None Seen); RBC Urine 0-2 /HPF (0-2); Squamous Epithelial Cell Urine >20 /HPF (0-2); WBC Urine 21-50 /HPF (0-5)
[2024-07-30 10:33] LABS: Alanine Aminotransferase 33 U/L (0-31); Albumin Level 3.8 g/dL (3.5-5.0); Alkaline Phosphatase 134 U/L (39-117); Anion Gap 13 (12-20); Aspartate Amino Transferase 41 U/L (5-31); Bilirubin Total 0.5 mg/dL (0.0-1.0); Blood Urea Nitrogen 31 mg/dL (9-16); Calcium 9.3 mg/dL (8.4-10.2); Carbon Dioxide 27 mmol/L (22-29); Chloride 108 mmol/L (96-108); Cholesterol 126 mg/dL (<200); Estimated Glomerular Filt Rate 33; Ferritin 398 ng/mL (10-250); Glucose Random 161 mg/dL (60-115); HDL Cholesterol 47 mg/dL (>40); Iron 87 mcg/dL (30-160); LDL Cholesterol Calculated 53 mg/dL (<100); Magnesium 2.1 mg/dL (1.6-2.6); Percent Iron Saturation 35 % (15-50); Potassium 3.9 mmol/L (3.3-5.1); Sodium 144 mmol/L (135-145); Total Iron Binding Capacity 251 mcg/dL (228-428); Total Protein 7.9 g/dL (6.5-8.0); Triglycerides 130 mg/dL (<150); Unsaturated Iron Binding 164 ug/dL; Vitamin D 25-OH Total 28.3 ng/mL (>30)
[2024-07-30 11:51] LABS: Microalbum/Creatinine Ratio Ur 20.6 ug/mg cr (<30); Total Protein Urine Random < 7 mg/dL (<12)
== END 2024-07-30 07:59 | disposition home or self-care (01) ==
LOC: HO.LAB 07:58
PROVIDERS: Internal Medicine Nephrology; PCP Internal Medicine; Visit Provider Internal Medicine
DX: N18.32 Chronic kidney disease, stage 3b (principal); E11.65 Type 2 diabetes mellitus with hyperglycemia; Z79.4 Long term (current) use of insulin; E11.22 Type 2 diabetes mellitus with diabetic chronic kidney disease; N25.0 Renal osteodystrophy; D63.1 Anemia in chronic kidney disease
CPT/HCPCS: 36415; 80053; 80061; 81001; 81003; 82043; 82306; 82570; 82728; 83540; 83735; 83970; 84100; 84156; 85025

== ENCOUNTER 2024-08-16 10:10 | Outpatient (REF) | payer OTHER, SELFPAY ==
--- NOTE | ~2024-08-16 | US_ITS ---
EXAMINATION: US ABDOMEN LIMITED WITH LIVER ELASTOGRAPHY HISTORY: K75.81 - Nonalcoholic steatohepatitis (TOMLINSON) TECHNIQUE: Real-time grayscale ultrasound imaging of the right upper quadrant was performed and images were reviewed. COMPARISON: Comparison is made with the prior examination dated 12/22/2023. FINDINGS: Liver: The right lobe of the liver measures 16.4 cm in size. The left lobe of the liver measures 8.9 cm in size. The liver again demonstrates a lobular contour, suspicious for cirrhosis. There is mild coarsened, increased hepatic echotexture, consistent with steatosis. No focal mass or intrahepatic biliary ductal dilatation is identified. There is normal hepatopedal flow in the portal vein. Ultrasound elastography of the liver was performed with 10 separate measurements of the liver parenchyma with the patient in the supine position. Measurements were obtained approximately 2 cm below Aisha's capsule and perpendicular to the capsule. Images are of satisfactory quality. The median shear wave velocity is 1.38 m/s (previously 1.55 m/s). The interquartile range/median (IQR/median) is 0.24. Gallbladder and biliary tree: The gallbladder is surgically absent. The common bile duct is normal in caliber measuring 4 mm. Right Kidney: The right kidney measures 9.8 cm in length and demonstrates a 5 x 3 x 3 mm cyst in the interpolar region and a 3 mm cyst at the lower pole. The right kidney is otherwise unremarkable, without evidence of solid masses, hydronephrosis, or calculi. Pancreas: The pancreatic head, neck, and body are unremarkable. The pancreatic tail is obscured by bowel gas. Abdominal aorta and inferior vena cava: The visualized portions of the abdominal aorta and inferior vena cava are normal in caliber. There is no free fluid in the right upper quadrant. US/US abdomen milan w elastography IMPRESSION: Mild hepatic steatosis. Lobulated liver contour suggestive of cirrhosis. The median shear wave velocity in the liver is 1.38 m/s, corresponding to a median liver stiffness of 5.79 kPa. The IQR/median value is 0.24. This is indicative of a poor quality data set, and the estimated liver stiffness may be unreliable. Findings are indicative of a low elastography value which rules out advanced chronic liver disease in asymptomatic patients. REFERENCE: Society of Radiologists in Ultrasound Liver Stiffness Thresholds (2020): LIVER STIFFNESS THRESHOLDS: *Shear wave velocity less than 1.3 m/s (Liver Stiffness equal or less than 5 kPa): High probability of being normal. *Shear wave velocity less than 1.7 m/s (Liver Stiffness less than 9 kPa): In the absence of other known clinical signs, rules out compensated advanced chronic liver disease. *Shear wave velocity between 1.7-2.1 m/s (Liver Stiffness 9-13 kPa): Suggestive of compensated advanced chronic liver disease but need further test for confirmation. *Shear wave velocity between 2.1-2.4 m/s (Liver Stiffness 13-17 kPa): Rules in compensated advanced chronic liver disease. *Shear wave velocity greater than 2.4 m/s (Liver Stiffness over 17 kPa): Suggestive of clinically significant portal hypertension. QUALITY OF DATA SET: *IQR/Median value equal or less than 0.15 implies a quality data set. *IQR/Median value over 0.15 implies a poor quality data set. SIGNIFICANT CHANGE FROM PRIOR EXAM: Significant change if liver stiffness measurement is 10% or greater from prior exam. OTHER CONSIDERATIONS: The stage of liver fibrosis may be overestimated in the setting of acute hepatitis, liver inflammation, elevated liver function tests, hepatic vascular congestion, obstructive cholestasis, non-fasting state, and infiltrative diseases such as amyloidosis and lymphoma. In some patients with NAFLD, the liver stiffness thresholds for compensated advanced chronic liver disease may be lower. In causes other than viral hepatitis and NAFLD, liver stiffness thresholds are not well established. Electronically signed by: Ignacio Mead MD 08/16/2024 12:46 PM EDT
== END 2024-08-16 10:11 | disposition home or self-care (01) ==
LOC: HO.US 10:10
PROVIDERS: PCP Internal Medicine; Visit Provider Internal Medicine Gastroenterology
DX: K75.81 Nonalcoholic steatohepatitis (NASH) (principal); K74.60 Unspecified cirrhosis of liver
CPT/HCPCS: 76705; 76981

== ENCOUNTER → 2024-08-16 10:12 | Outpatient (BNV) | payer OTHER, SELFPAY | PROVIDERS: PCP Internal Medicine; Visit Provider Radiology Diagnostic Radiology | DX: K75.81 Nonalcoholic steatohepatitis (NASH) (principal) | CPT/HCPCS: 76705; 76981 ==

== ENCOUNTER 2024-09-25 09:30 | Outpatient (AMB) | payer OTHER, SELFPAY ==
--- NOTE | 2024-09-25 09:37 | A.OFFVIS_ITS ---
Vital Signs 09/25/24 09:39 Height 4 ft 9 in Weight 130 lb BMI 28.1 Intake Visit Reasons: OV LT shoulder 02/02/24 , last inj 06/27/24 Intake Note: Angela is a 68 year old female who presents with complaints of intermittent left shoulder pain. She did undergo left shoulder arthroscopic surgery on 02/02/2024. She was given a cortisone injection into her left shoulder earlier this year which gave her fairly good relief. She denies any weakness. She has tried physical therapy exercises which aggravated her pain. She has also tried Tylenol, anti-inflammatory medicines and oxycodone which gave her mild relief. Allergies tramadol [TRAMADOL] Allergy (Severe, Verified 09/25/24 09:40) THROAT, LIPS SWELLING, latex [LATEX] Allergy (Intermediate, Verified 09/25/24 09:40) RASH Medication List - Last Reconciled 09/25/24 by Gato Dhaliwal MD albuterol sulfate 90 mcg/actuation 2 puffs inhalation Q6H PRN albuterol sulfate 1 mg (1.2 mL) inhalation TID 30 days amlodipine (Norvasc) 10 mg PO DAILY anastrozole 1 tab PO DAILY 30 days aspirin 1 tab PO DAILY 30 days atorvastatin 40 mg PO DAILY CPAP (CPAP Machine/Device) As directed dapagliflozin propanediol (Farxiga) 10 mg PO DAILY 30 days docusate sodium 100 mg PO DAILY PRN doxepin 10 mg PO BEDTIME PRN 30 days esomeprazole magnesium mg PO DAILY flash glucose sensor (FreeStyle Jeovany 2 Sensor kit) As directed insulin aspart U-100 (Novolog FlexPen U-100 Insulin aspart) INJECT 30 UNITS SUBCUTANEOUSLY BEFORE BREAKFAST AND BEFORE LUNCH AND INJECT 40 UNITS SUBCUTANEOUSLY BEFORE SUPPER 30 days insulin degludec (Tresiba FlexTouch U-200 insulin) 40 units subcut QNOON losartan 25 mg PO DAILY 30 days mirtazapine 15 mg PO BEDTIME 30 days montelukast 10 mg PO BEDTIME naloxegol (Movantik) 12.5 mg PO QAM nebulizers As directed plecanatide (Trulance) 3 mg PO DAILY semaglutide (Ozempic) 2 mg subcut QWEEK sertraline 100 mg PO DAILY 30 days sodium,potassium,mag sulfates 17.5-3.13-1.6 gram (Suprep Bowel Prep Kit) DILUTE each bottle with 16oz of water; drink first bottle 5pm evening before procedure AND second bottle at 11pm; follow each bottle with at least 32 oz.of water within 1 hour after each bottle torsemide 40 mg (2 x 20 mg) PO DAILY 30 days Trelegy Ellipta 200-62.5-25 mcg (cgortfxevgk-qoszjvtiu-garrchop) 1 ea inhalation DAILY NS ursodiol mg PO PFSH Medical History (Updated 09/13/24 @ 15:02 by Kayla Low RN) Sick sinus syndrome CKD (chronic kidney disease) Hx of radiation therapy Arthritis HTN (hypertension) Anemia Chronic restrictive lung disease Dyspnea Asthma Obesity (BMI 30-39.9) 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 Dyslipidemia Diabetic nephropathy associated with type 2 diabetes mellitus Diabetic retinopathy associated with type 2 diabetes mellitus Obstructive sleep apnea on CPAP Other and unspecified hyperlipidemia Essential hypertension Type 2 diabetes mellitus with unspecified complications GERD (gastroesophageal reflux disease) (~05/18/23) Breast cancer Depression Diabetes mellitus, type 2 Surgical History (Updated 09/13/24 @ 15:03 by Kayla Low RN) History of liver biopsy Hx of cardiac catheterization Hx of colonoscopy History of esophagogastroduodenoscopy (EGD) History of total abdominal hysterectomy History of cholecystectomy History of shoulder surgery History of 3 sections History of permanent cardiac pacemaker placement Family History Father Diabetes Brother Diabetes Sister Diabetes Mother No known problems Social History Household Members: Spouse and Family Housing: Apartment Are you a primary childbirth and infant care teacher to a significant other at home: No Do you presently have visiting nurse or other home services: Yes (nurse) Alcohol intake: never Patient Tobacco Use Status: Former Tobacco user Tobacco use type: Cigarette Years Smoked: 12 years e-Cigarette/Vaping Use: Former Use Second Hand Smoke Exposure: No service: No Current occupational status: disabled Sexual orientation: Straight/Heterosexual Physical Exam Vital Signs: BMI result Body Mass Index 28.1 Const Other: Well-nourished well-developed very friendly female awake alert and oriented x3 in no acute distress Extrem Other: Bilateral upper extremity examination shows good capillary refill, no skin lesions noted, normal sensation light touch Left shoulder examination shows that the surgical incisions are well healed, no erythema, mild discomfort with resisted forward flexion, no instability Office Procedures AMB Joint Injection/Aspiration Joint Injection/Aspiration Primary Site: left shoulder Prep: site was prepped using aseptic technique Injected: 40 mg of, DepoMedrol and 1% plain lidocaine Procedure: The patient tolerated the procedure well Coding - Large joint Procedure code (CPT) selection complete Assessment & Plan Assessment & Plan (1) Left shoulder pain: Code(s): M25.512 - Pain in left shoulder Category: Medical Plan Ms. Alberto Moreno presents with left shoulder pain due to rotator cuff tendinosis. The risks and benefits of a left shoulder cortisone injection were discussed at length with the patient. The patient wished to proceed. She tolerated the injection well. She will continue with her wnydn-zv-xfewuq exercises to prevent stiffness. She will contact me prior to her follow-up appointment in 3 months should any questions or concerns arise. Feel free to call me at any time should questions regarding her orthopedic management arise. I spent 21 minutes in reviewing the patient's records and imaging studies, seeing the patient and documenting in the medical record. Orders: Orders AMB Joint Injection/Aspiration Today M25.512 - Pain in left shoulder Coding Level of Care Code Est Pt Level 3 (33144) Complex EM visit Add On G2211 Diagnoses Left shoulder pain M25.512 CPT Codes Coding - 34102 Large joint: 61017 - Large joint ([id number])
[2024-09-25 09:39] VITALS: BMI 28.1
--- OUTSIDE RECORDS SUMMARY | 2024-09-25 10:18 | XMS_ITS | Encounter Summary ---
Author Organization [facility] Address [address] [place] [address] Care Team Providers Care Pigs Feet Cleaner Name Role Phone Angelica Guerra MD Primary Care Provider Unava ilable Angelica Guerra MD Unavailable Unavailable Stacie Easton PA-C Unavailable Mahesh Acevedo NP Unavailable [phone] [facility], Pcp Primary Care Provider Unavailabl e Encounter Details Date Type Department Care Team Description 05/07/2017 Hospital Medical Records [address] [place] [address] Erik Dang MD Social History Tobacco Use [...] on filedocumented in this encounter Care Teams Pigs Feet Cleaner Relationship Specialty Start Date End Date Angelica Guerra MD PCP - General Internal Medicine 03/02/17 08/01/21 [facility], Pcp PCP - General Internal Medicine 08/02/21 Angelica Guerra MD 02/10/17 Stacie Easton PA-C Specialist Cardiology 12/24/20 Mahesh Acevedo NP Specialist Cardiology 12/24/20 documented as of this encounter
--- OUTSIDE RECORDS SUMMARY | 2024-09-25 10:18 | XMS_ITS | Encounter Summary ---
Author Organization [facility] Address [address] [place] [address] Care Team Providers Care Field Marketing Specialist Name Role Phone Lucia Montes Primary Care Provider Unavailab Angelica Jeong MD Primary Care Provider UnaAngelica Cisneros MD Unavailable Unavailable Stacie Easton PA-C [facility]available [facility] Unavailable [phone] [facility], Pcp Primary Care Provider Unavailabl e Reason for Visit * Reason Onset Date Comments Faxed Refill 02/10/2017 Encounter Details Date Type Department Care Team Description 02/10/2017 Refill Adult Medicine [address] [address] Lucia Montes Faxed Refill Social History Tobacco Use Types Packs/Day Years Used Date Smoking Tobacco: Former Smokeless Tobacco: Never Alcohol Use Standard Drinks/Week Comments No 0 (1 standard drink = 0.6 oz pur e alcohol) Sex Assigned at Date Recorded Not on file documented as of this encounter Miscellaneous Notes * Telephone Encounter - Crys Suh L.P.N. - 02/15/2017 8:43 AM EDT No return call, closing chart * Telephone Encounter - Crys Suh L.P.N. - 02/10/2017 3:43 PM EDT LEFT WITH MALE TO CALL HER INSURANCE COMPANY WE ARE NOT LISTED * Telephone Encounter - Anika Ontiveros - 02/10/2017 1:12 PM EDT Patient would like script to be: E-PRESCRIBED/FAXED TO PHARMACY WHEN WAS THE PATIENT'S LAST APPOINTMENT IN ADULT MEDICINE? 01/04/2017 WHEN WAS THE LAST TIME THE PATIENT SAW THEIR PCP? Patient has outside pcp listed. Does patient have an upcoming appointment? Yes 05/04/2017 (THE MEDICATION REQUESTED IS ON THE MED LIST ABOVE) All of the medications requested were on the CURRENT MEDS list Did you check the Pharmacy information above?: YES Patient wants: 30 -day supply Is this a mail order prescription request ? NO Patients current insurance carrier is: Payor: [employer] / Plan: [employer] $0 [place]ANC[place] [id number] / Product Type: MEDICAID [id number] documented in this encounter Plan of Treatment Not on file documented as of this encounter Visit Diagnoses Diagnosis Insomnia Insomnia, unspecified documented in this encounter Care Teams Field Marketing Specialist Relationship Specialty Start Date End Date Lucia Montes PCP - General Internal Medicine 02/10/17 03/01/17 Angelica Guerra MD PCP - General Internal Medicine 03/02/17 [facility]01[facility]21 [facility] - [facility] 08/02/21 Angelica Guerra MD 02/10/17 Stacie Easton PA-C Specialist Cardiology 12/24/20 Mahesh Acevedo NP Specialist Cardiology 12/24/20 documented as of this encounter
--- OUTSIDE RECORDS SUMMARY | 2024-09-25 10:18 | XMS_ITS | Encounter Summary ---
Author Organization [employer] [facility] Address [address] [place] [address] Care Team Providers Care Pageant Director Name Role Phone Angelica Guerra MD Primary Care Provider Unava ilable Angelica Guerra MD Unavailable Unavailable Stacie Easton PA-C Unavailable Mahesh Acevedo NP Unavailable [phone] [facility], Pcp Primary Care Provider Unavailabl e Encounter Details Date Type Department Care Team Description 04/20/2017 Release of Information Medical Records [address] [place] [id number] Abstract, Provider Social History Tobacco Use Types [...] on filedocumented in this encounter Care Teams Pageant Director Relationship Specialty Start Date End Date Angelica Guerra MD PCP - General Internal Medicine 03/02/17 08/01/21 [facility], Pcp PCP - General Internal Medicine 08/02/21 Angelica Guerra MD 02/10/17 Stacie Easton PA-C Specialist Cardiology 8/5/21 Mahesh Acevedo NP Specialist Cardiology 12/24/20 documented as of this encounter
--- OUTSIDE RECORDS SUMMARY | 2024-09-25 10:18 | XMS_ITS | Encounter Summary ---
Author Organization [employer] [facility] Address [address] [place] [address] Care Team Providers Care Buffing And Polishing Wheel Repairer Name Role Phone Angelica Guerra MD Primary Care Provider Unava ilable Angelica Guerra MD Unavailable Unavailable Stacie Easton PA-C Unavailable Mahesh Acevedo NP Unavailable [phone] [facility], Pcp Primary Care Provider Unavailabl e Encounter Details Date Type Department Care Team Description 07/15/2019 Vice President [employer] Report Medical Records [address] [place] [address] Nabeel March MD Social History Tobacco Use [...] on filedocumented in this encounter Care Teams Buffing And Polishing Wheel Repairer Relationship Specialty Start Date End Date Angelica Guerra MD PCP - General Internal Medicine 03/02/17 08/01/21 [facility], Pcp PCP - General Internal Medicine 08/02/21 Angelica Guerra MD 02/10/17 Stacie Easton PA-C Specialist Cardiology 12/24/20 Mahesh Acevedo NP Specialist Cardiology 12/24/20 documented as of this encounter
--- OUTSIDE RECORDS SUMMARY | 2024-09-25 10:18 | XMS_ITS | Encounter Summary ---
Author Organization [employer] Address [address] [place] [address] Care Team Providers Care Tank Operator Name Role Phone Angela Luz MD Primary Care Provide r Ninfa Dietrich PharmD Unavailable [phone] Encounter Details Date Type Department Care Team (Latest Contact Info) Description 09/20/2024 Travel Social History Tobacco Use Types Packs/Day [...] Care Team (Late st Contact Info) Description 10/17/2024 10:00 AM EDT Clinical Support [address] [address] Nazia Martins RN 10/21/2024 10:00 AM EDT Medication Management [address] [address] Ninfa Dietrich, LauraD [address] [place] [address] 10/28/2024 9:00 AM EDT Office Visit [address] [address] Angela Luz MD [address] [place] [address] documented as of this encounter Goals Goal Patient Goal Type Associated Problems Recent Progress Patient-Stated? Author Blood Pressure < 140/90 Blood Pressure 120/44(2024 10:03 AM EDT) No Ady Araujo Hemoglobin A1c < 8 Result Component 8.5( 10:01 AM EDT) No Ady Araujo Note: Comorbidities: CHF, CKD, cirrhosis documented as of this encounter Visit Diagnoses Not on filedocumented in this encounter Care Teams Tank Operator Relationship Specialty Start Date End Date Angela Luz MD [address] [place] [address] PCP - General Family Medicine 10/27/20 Ninfa Dietrich, Shadia [address] [place] [address] [place] [address] Pharmacist Internal Medicine 11/10/23 AJ Team Products 12/20/23 documented as of this encounter
--- OUTSIDE RECORDS SUMMARY | 2024-09-25 10:18 | XMS_ITS | Encounter Summary ---
Author Organization [employer] [facility] Address [address] [place] [address] Care Team Providers Care Inserting Operator Name Role Phone Angelica Guerra MD Primary Care Provider Unava ilable Angelica Guerra MD Unavailable Unavailable Stacie Eatson PA-C Unavailable Mahesh Acevedo NP Unavailable [phone] [facility], Pcp Primary Care Provider Unavailabl e Encounter Details Date Type Department Care Team Description 08/08/2019 Waste Cotton Cleaner Report Medical Records [address] [place] [address] Willy Avilez Social History Tobacco Use Types [...] on filedocumented in this encounter Care Teams Inserting Operator Relationship Specialty Start Date End Date Angelica Guerra MD PCP - General Internal Medicine 03/02/17 08/01/21 [facility], Pcp PCP - General Internal Medicine 08/02/21 Angelica Guerra MD 02/10/17 Stacie Easton PA-C Specialist Cardiology 12/24/20 Mahesh Acevedo NP Specialist Cardiology 12/24/20 documented as of this encounter
--- OUTSIDE RECORDS SUMMARY | 2024-09-25 10:18 | XMS_ITS | Encounter Summary ---
Author Organization [facility] Address [address] [place] [address] Care Team Providers Care Histology Specialist Name Role Phone Angelica Guerra MD Primary Care Provider Unava ilable Angelica Guerra MD Unavailable Unavailable Stacie Easton PA-C Unavailable Mahesh Acevedo NP Unavailable [phone] [facility], Pcp Primary Care Provider Unavailabl e Encounter Details Date Type Department Care Team Description 08/06/2019 [facility] Medical Records [address] [place] [address] Abstract, Provider Social History Tobacco Use Types [...] on filedocumented in this encounter Care Teams Histology Specialist Relationship Specialty Start Date End Date Angelica Guerra MD PCP - General Internal Medicine 03/02/17 08/01/21 [facility], Pcp PCP - General Internal Medicine 08/02/21 Angelica Guerra MD 02/10/17 Stacie Easton PA-C Specialist Cardiology 8/5/21 Mahesh Acevedo NP Specialist Cardiology 12/24/20 documented as of this encounter
--- OUTSIDE RECORDS SUMMARY | 2024-09-25 10:18 | XMS_ITS | Encounter Summary ---
Author Organization [employer] [facility] Address [address] [place] [address] Care Team Providers Care Electrolysis Engineer Name Role Phone Angelica Guerra MD Primary Care Provider Unava ilable Angelica Guerra MD Unavailable Unavailable Stacie Easton PA-C Unavailable Mahesh Acevedo NP Unavailable [phone] [facility], Pcp Primary Care Provider Unavailabl e Encounter Details Date Type Department Care Team Description 07/16/2019 Customer Order Clerk Report Medical Records [address] [place] [id number] Maia Herring MD Social History Tobacco Use [...] on filedocumented in this encounter Care Teams Electrolysis Engineer Relationship Specialty Start Date End Date Angelica Guerra MD PCP - General Internal Medicine 03/02/17 08/01/21 [facility], Pcp PCP - General Internal Medicine 08/02/21 Angelica Guerra MD 02/10/17 Stacie Easton PA-C Specialist Cardiology 12/24/20 Mahesh Acevedo NP Specialist Cardiology 12/24/20 documented as of this encounter
--- OUTSIDE RECORDS SUMMARY | 2024-09-25 10:18 | XMS_ITS | Encounter Summary ---
Author Organization [employer] Address [address] [facility] [address] [place] [address] Care Team Providers Care Supervisor Cold Rolling Name Role Phone Angela Luz MD Primary Care Provide r Ninfa Dietrich PharmD Unavailable [phone] Encounter Details Date Type Department Care Team (Late st Contact Info) Description 09/20/2024 Telephone [facility] [address] [place], [place] [phone] Ninfa Dietrich, PharmD [address] [place], [place] [phone] Social History Tobacco Use Types Packs/Day Years [...] encounter Miscellaneous Notes * Telephone Encounter - Ninfa Dietrich PharmD - 09/20/2024 2:54 PM EDT Patient reports going to [facility] [place] for [facility]PH care and states that she was last seen about 3 weeks ago. Notes are not currently found in EHR; please assist in obtaining, thank you! documented in this encounter Plan of Treatment Upcoming Encounters Date Type Department Care Team (Late st Contact Info) Description 10/17/2024 10:00 AM EDT Clinical Support [facility] [address] [place] [address] Nazia Martins RN 10/21/2024 10:00 AM EDT Medication Management [facility] [address] [place] [address] Ninfa Dietrich PharmD [address] [place] [address] 10/28/2024 9:00 AM EDT Office Visit [facility] [address] [place] [phone] Angela Luz MD [address] [place] [phone] documented as of this encounter Goals Goal Patient Goal Type Associated Problems Recent Progress Patient-Stated? Author Blood Pressure < 140/90 Blood Pressure 120/44(2024 10:03 AM EDT) No Ady Araujo Hemoglobin A1c < 8 Result Component 8.5( 10:01 AM EDT) No Ady Araujo Note: Comorbidities: CHF, CKD, cirrhosis documented as of this encounter Visit Diagnoses Not on filedocumented in this encounter Care Teams Supervisor Cold Rolling Relationship Specialty Start Date End Date Angela Luz MD [address] [place] [address] PCP - General Family Medicine 10/27/20 Ninfa Dietrich, LauraD [address] [place] [address] Pharmacist Internal Medicine 11/10/23 [facility] 12/20/23 documented as of this encounter
--- OUTSIDE RECORDS SUMMARY | 2024-09-25 10:18 | XMS_ITS | Clinical Summary ---
Author Organization [email or web address] Address [address] [place] [address] Care Team Providers Care Master Ocean Name Role Phone Angela Luz MD Primary Care Provide r Ninfa Dietrich PharmD Unavailable Allergies Active Allergy Reactions Criticality Noted Date [...] unspecified whether stage 3a or 3b CKD ([facility]) Take 15 g by mouth if needed for low blood sugar. 45 g 11 Active glucagon (Baqsimi) 3 MG/DOSE nasal powderIndication s:Type 2 diabetes mellitus with hypoglycemia without coma, with long-term current use of insulin ([facility]) For severe hypoglycemia, administer 3 mg (1 actuation) into 1 nostril. May repeat dose if there has been no response after 15 minutes 2 each 11 Active calcitriol (Rocaltrol) 0.25 MCG capsule Take [...] with each dose 2 each 2 Active pregabalin (Lyrica) 75 MG capsuleIndicatio ns:Diabetic polyneuropathy associated with type 2 diabetes mellitus ([facility]/HCC) TAKE 1 CAPSULE BY MOUTH TWICE DAILY IN THE MORNING AND IN THE EVENING 60 capsule 1 024 Active senna (Senokot) 8.6 MG tabletIndication s:Constipation, unspecified constipation type TAKE 2 TABLETS BY MOUTH EVERY DAY AT BEDTIME NEEDED FOR CONSTIPATION 180 tablet 1 025 Active Continuous Glucose Catalog Librarian (FreeStyle Jeovany 3 [place]) deviceIndication s:Type 2 diabetes mellitus with hyperglycemia, with long-term current use of insulin ([facility]) 1 each Once per day. Use as directed for CGM 1 each 025 Active Continuous Glucose Sensor (FreeStyle Jeovany 3 Plus Sensor) miscIndications: Type 2 diabetes mellitus with hyperglycemia, with long-term current use of insulin ([facility]) 1 each every 15 days. Apply 1 every 15 days as directed for CGM 2 each 025 Active losartan (Cozaar) 50 MG tablet Take 50 mg by mouth in the morning. 025 Active amLODIPine (Norvasc) 10 MG tabletIndication s:Primary hypertension TAKE 1 TABLET BY MOUTH AT BEDTIME 90 tablet 1 025 Active albuterol (2.5 MG/3ML) 0.083% nebulizer solutionIndicati ons:Simple chronic bronchitis ([facility]) INHALE 1 AMPULE USING A NEBULIZER THREE TIMES DAILY 180 mL 3 025 Active TRUEplus Lancets 33G miscIndications: Type 2 diabetes mellitus with hyperglycemia, with long-term current use of insulin ([facility]) USE DIRECTED TO TEST BLOOD SUGAR FOUR TIMES DAILY 400 each 025 Active ursodiol (Actigall) 500 MG tablet TAKE 1 TABLET BY MOUTH TWICE DAILY IN THE MORNING AND IN THE EVENING 60 tablet 025 Active esomeprazole (NexIUM) [address] capsule TAKE 1 CAPSULE BY MOUTH EVERY MORNING BEFORE BREAKFAST 30 capsule 025 Active fluticasone (Flonase) 50 MCG/ACT nasal sprayIndications :Nasal congestion USE 1-2 SPRAYS IN EACH NOSTRIL ONE OR TWO TIMES DAILY NEEDED FOR NASAL CONGESTION 16 g 025 Active oxyCODONE-acetam inophen (Percocet) 5-325 MG tabletIndication s:Other chronic pain TAKE 1 TABLET BY MOUTH EVERY 6 HOURS NEEDED FOR SEVERE PAIN 112 tablet 025 Active insulin pen needle (Easy Touch Pen [place]) 31G X 8 mm miscIndications: Type 2 diabetes mellitus with hypoglycemia without coma, with long-term current use of insulin ([facility]) USE DIRECTED TO INJECT INSULIN 100 each 025 Active glucose blood (FreeStyle Precision Boris Test) test stripIndications :Type 2 diabetes mellitus with stage 3 chronic kidney disease, with long-term current use of insulin, unspecified whether stage 3a or 3b CKD ([facility]) Test blood sugar as directed three times daily 100 each 025 2025 Active Semaglutide, 2 MG/DOSE, (Ozempic, 2 MG/DOSE,) 8 MG/3ML solution pen-injectorIndi cations:Type 2 diabetes mellitus with stage 3 chronic kidney disease, with long-term current use of insulin, unspecified whether stage 3a or 3b CKD ([facility]) Inject 0.75 mL (2 mg) under the skin every 7 (seven) days. 3 mL Active insulin degludec (Tresiba FlexTouch) 200 UNIT/ML injectionIndicat ions:Type 2 diabetes mellitus with stage 3 chronic kidney disease, with long-term current use of insulin, unspecified whether stage 3a or 3b CKD ([facility]) INJECT 38 UNITS SUBCUTANEOUSLY ONCE DAILY Active NovoLOG FLEXPEN 100 UNIT/ML penIndications:T ype 2 diabetes mellitus with stage 3 chronic kidney disease, with long-term current use of insulin, unspecified whether stage 3a or 3b CKD ([facility]) USE DIRECTED THREE TIMES DAILY PER SLIDING SCALE <150mg/dL= 0 units,151-199mg/ dL=4 units,200-249mg/ dL=6 units,250-299mg/ dL=8 units,300-349mg/ dL=10 units,350-399mg/ dL=12 units,>400mg/dL 14 units & call offic 15 mL 025 Active pen needle 32G x 4 mm miscIndications: Type 2 diabetes mellitus with hypoglycemia without coma, with long-term current use of insulin ([facility]) Use for insulin administration three times daily. Use as instructed 100 each 024 2024 Discontinued fluticasone (Flonase) 50 MCG/ACT nasal sprayIndications :Nasal congestion Administer 1-2 sprays into each nostril 1-2x per day as needed for congestion. Shake gently. Before first use, prime pump. After use, clean tip and replace cap. 16 g 024 2024 Discontinued(R eorder (will not trigger notification to Pharmacy)) insulin aspart (NovoLOG FLEXPEN) 100 UNIT/ML penIndications:T ype 2 diabetes mellitus with stage 3 chronic kidney disease, with long-term current use of insulin, unspecified whether stage 3a or 3b CKD ([facility]) USE DIRECTED THREE TIMES DAILY PER SLIDING SCALE <150mg/dL= 0 units,151-199mg/ dL=4 units,200-249mg/ dL=6 units,250-299mg/ dL=8 units,300-349mg/ dL=10 units,350-399mg/ dL=12 units,>400mg/dL 14 units & call offic 15 mL 3 025 2024 Discontinued Ozempic, 1 MG/DOSE, 4 MG/3ML solution pen-injector Inject 1 MG SUBCUTANEOUSLY EVERY 7 DAYS IN THE ABDOMEN, THIGHS OR UPPER ARM. ROTATE INJECTION SITES. 025 2024 Discontinued(D ose adjustment) insulin degludec (Tresiba FlexTouch) 200 UNIT/ML injectionIndicat ions:Type 2 diabetes mellitus with stage 3 chronic kidney disease, with long-term current use of insulin, unspecified whether stage 3a or 3b CKD ([facility]) INJECT 36 UNITS SUBCUTANEOUSLY ONCE DAILY 025 2024 Discontinued esomeprazole (NexIUM) [address] capsule TAKE 1 CAPSULE BY MOUTH EVERY MORNING BEFORE BREAKFAST 30 capsule 025 2024 Discontinued ursodiol (Actigall) 500 MG tablet TAKE 1 TABLET BY MOUTH TWICE DAILY IN THE MORNING AND IN THE EVENING 60 tablet 025 2024 Discontinued oxyCODONE-acetam inophen (Percocet) 5-325 MG tabletIndication s:Other chronic pain TAKE 1 TABLET BY MOUTH EVERY 6 HOURS NEEDED FOR SEVERE PAIN 112 tablet 025 2024 Discontinued Active Problems Problem Noted Date Diagnosed Date Chronic kidney disease, stage 4 (severe) 025 Assessment & Plan (06/28/2024 4:39 PM EST): [...] up with psychiatrist and therapist Diabetic polyneuropathy keegan chacon with type 2 diabetes mellitus 08/08/2023 Assessment [...] AM EDT): I will refer patient to desk representative outside after this plan is to refer her to endocrinology Meanwhile c/w same insulin regimen, I agree with discontinuation of berkley, extensive discussion about diabetic diet done Assessment [...] current medications - Patient already has seen desk representative diabetes has being challenging to manage I will refer her to endocrinology Assessment & Plan (07/21/2022 12:56 PM EST): Llast A1c was high. Continue current insulins dose XXXXX Continue Farxiga. FU with PCP in 2 months. FU closely with benefits consultant. Assessment & Plan (06/08/2022 1:02 PM EST): Restart Farxiga 10 mg and increase Lantus to 50 units qhs, continue 43 units in the morning. -Continue Humalog sliding scale. -Encouraged to increase small in fraction meals. -Will refer to life educator and butcher all round. -FU with me in 3-4 weeks. Other [...] or stolen. Prescription sent today. FU with BEHAVIORAL INTERVENTION SPECIALIST nurse. Moderate persistent asthma 08/07/2017 Overview (04/29/2022): [...] 06/11/2012 Overview (04/29/2022): 01/[address] in [place] 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 Pt follow up closely at [facility]/Dr. March. Obtain result of last mammogram. Continue on anastrozole Encounters Date Type Department Care Team Description 09/23/2024 Refill [facility] [address] [place] [address] Ninfa Dietrich PharmD Type 2 diabetes mellitus with stage 3 chronic kidney disease, with long-term current use of insulin, unspecified whether stage 3a or 3b CKD ([facility]/HCC) 09/20/2024 Telephone [facility] [address] [place] [address] Angela Luz MD Record Request 09/20/2024 Telephone [facility] [address] [place] [address] Ninfa Dietrich PharmD 09/20/2024 Travel 09/19/2024 Travel 09/13/2024 Telephone [facility] [address], [place] [phone] Angela Luz MD 09/11/2024 Refill [facility] [address] [place] [address] Ninfa Dietrich PharmD Type 2 diabetes mellitus with hypoglycemia without coma, with long-term current use of insulin (CMS/HCC) 09/11/2024 Refill [facility] [address] [place] [address] Angela Luz MD Other chronic pain 08/29/2024 Refill [facility] [address] [place] [address] Angela Luz MD Nasal congestion 08/29/2024 Refill [facility] [address] [place] [address] Ninfa Dietrich PharmD Type 2 diabetes mellitus with hyperglycemia, with long-term current use of insulin ([facility]) 08/29/2024 Refill [facility] [address] [place] [address] Azalea España ANP Nasal congestion 08/22/2024 Refill [facility] [address] [place] [address] Angela Luz MD Diabetic polyneuropathy associated with type 2 diabetes mellitus ([facility]) 08/16/2024 Orders Only [facility] External Provider, [facility] 08/14/2024 Telephone [facility] [address] [place] [address] Angela Luz MD 08/13/2024 Travel 08/05/2024 Refill [facility] [address] [place] [address] Angela Luz MD Other chronic pain 07/31/2024 Travel 07/31/2024 Refill [facility] [address] [place] [address] Angela Luz MD Other chronic pain 07/30/2024 Orders Only GENERIC EXTERNAL DATA DEPARTMENT Provider, Generic External Data 07/30/2024 Refill [facility] [address] [place] [address] Angela Luz MD 07/29/2024 Refill [facility] [address] [place] [address] Angela Luz MD Type 2 diabetes mellitus with hyperglycemia, with long-term current use of insulin ([facility]) 07/26/2024 Refill [facility] [address] [place] [address] Jasper Avila MD 07/26/2024 Refill [facility] [address] [place] [address] Angela Luz MD Simple chronic bronchitis ([facility]/HCC) 07/25/2024 Refill [facility] [address] [place] [address] Angela Luz MD Primary hypertension 07/23/2024 9:00 AM EST Telemedicine [facility] [address] [place] [address] Ninfa Dietrich PharmD Type 2 diabetes mellitus with hyperglycemia, with long-term current use of insulin ([facility]) (Primary Dx); Type 2 diabetes mellitus with stage 3 chronic kidney disease, with long-term current use of insulin, unspecified whether stage 3a or 3b CKD ([facility]); Primary hypertension 07/22/2024 Orders Only GENERIC EXTERNAL DATA DEPARTMENT Provider, Generic External Data 07/09/2024 Refill [facility] [address] [place] [address] Angela Luz MD Other chronic pain 07/01/2024 Travel 06/29/2024 Refill [facility] [address] [place] [address] Angela Luz MD 06/28/2024 11:15 AM EST Office Visit [facility] [address] [place] [address] Angela Luz MD Primary hypertension (Primary Dx); Type 2 diabetes mellitus with hyperglycemia, with long-term current use of insulin ([facility]); Chronic kidney disease, stage 4 (severe) (CMS/HCC); Chronic combined systolic and diastolic heart failure (CMS/HCC); Chronic bronchitis, unspecified chronic bronchitis type (CMS/[facility]); Congestive heart failure, unspecified HF chronicity, unspecified heart failure type (CMS/[facility]); Type 2 diabetes mellitus with stage 3b chronic kidney disease, with long-term current use of insulin ([facility]/HCC) 06/28/2024 Travel from Last 3 Months Immunizations Name Administration [...] Sign Reading Time Taken Comments Blood Pressure 120/44 09/20/2024 10:03 AM EDT Pulse 60 09/20/2024 10:03 AM EDT Temperature 36.7 ??C (98 ??F) [...] Department Care Team (Late Contact Info) Description 10/17/2024 10:00 AM EDT Clinical Support [facility] [address] [place] [phone] Nazia Martins RN 10/21/2024 10:00 AM EDT Medication Management [address] [address] Ninfa Dietrich, LauraD [address] [place] [address] 10/28/2024 9:00 AM EDT Office Visit [address] [address] Angela Luz MD [address] [place], [place] [phone] Health Maintenance Due Date Last Done Comments CT Colonography 1954 Dental Prophylaxis 1955 Dental X-Ray: Bitewings 1954 FIT DNA/Cologuard 1955 FIT 1955 FOBT 1955 Sigmoidoscopy 1955 Diabetes: Foot Exam 1964 Eye Exam 1965 Dental Oral Exam 08/08/2023 02/06/2023 SDOH Screening 06/27/2024 06/27/2023 Diabetes: Hemoglobin A1C 12/21/2024 025, 03/26/2024, 12/06/2023, Additional history exists Depression Screening 12/25/2024 12/26/2023, 12/26/19 24 Colonoscopy 02/09/2025 Colorectal Cancer Screening 02/09/2025 Alcohol/Substance Use Screening 03/26/2025 03/26/2024 Mammogram 04/19/2025 04/19/2024, 03/23, 04/08/2022, Additional history exists Tobacco Screening 04/25/2025 04/25/2024 Lipid Panel 07/30/2025 07/30/2024, 01/0 06/2023, 06/29/2021, Additional history exists Dental X-Ray: [...] Name Priority Date/Time Associated Diagnosis Comments POCT GLYCATED HEMOGLOBIN, TOTAL Routine 09/20/2024 10:01 AM EDT Type 2 diabetes mellitus with stage 3 chronic kidney disease, with long-term current use of insulin, unspecified whether stage 3a or 3b CKD (CMS/HCC) US ABDOMEN SHEPARD W ELASTOGRAPHY Routine 08/16/2024 [...] with long-term current use of insulin ([facility]) LIPID PANEL, STANDARD Routine 07/30/2024 8:25 AM EDT Type 2 diabetes mellitus with hyperglycemia, with long-term current use of insulin (CMS/[facility]) FERRITIN Routine 07/22/2024 10:21 AM EST COMPREHENSIVE [...] to Health Maintenance Results * (ABNORMAL) POCT A1C (09/20/2024 10:01 AM EDT) Hemoglobin A1C 8.5(A) 4.0 - 6.0 % QC Media Lot # [id number] Lot# Expiration Date Blood 09/20/2024 10:0 1 AM EDT us Angela Haley MD POINT OF CARE TEST EN TER/EDIT ORDERABLES Final Result * US ABDOMEN SHEPARD W ELASTOGRAPHY (08/16/2024 11:16 AM EDT) Anatomical Region Laterality Modality Abdomen Ultrasound 08/16/2024 11:1 6 AM EDT Narrative 08/16/2024 12:49 PM EDT ? [facility] ?[address] ?[place] [address] ? Ultrasound Report ? Signed ? Patient: Dominguez Moreno,Angela ?MR#: ?? [id number] ? : 1955 ?Acct:[id number] ? Age/Sex: 68 / F ?ADM Date: 03/28/25 ? Loc: HO.US ? Attending Dr: Chance Schwartz MD ? Ordering Physician: Chance Schwartz MD ?? Date of Service: 08/16/24 ?? Procedure(s): US abdomen shepard w elastography ?? Accession Number(s): [id number] ? cc: Angela Luz MD; Chance Schwartz [...] ??Ignacio Mead MD ??08/16/2024 12:46 PM EDT ?? RP ? Dictated By: ?Ignacio Mead MD ? Signed By: ?<Electronically signed by Ignacio Mead MD in OV> ?08/16/24 1246 ? DD/ 1116 ? TD/TT: 08/16/24 1148 ? Hand Stoner: ? Procedure Note Donamparoter, Image - 08/16/2024 [place] [id number] Ultrasound Report Signed Patient: Angela CullenMR#: [id number] : 5Acct:[id number] Age/Sex: 68 / FADM Date: 08/16/24 Loc: HO.US Attending Dr: Chance Schwartz MD Ordering Physician: Chance Schwartz MD Date of Service: 08/16/24 Procedure(s): US abdomen shepard w elastography Accession Number(s): [id number] cc: Angela Luz MD; Chance Schwartz MD [...] Ignacio Mead MD 08/16/2024 12:46 PM EDT RP Dictated By: Ignacio Mead MD Signed By: <Electronically signed by Ignacio Mead MD in OV> 08/16/24 1246 DD/ 1116 TD/TT: 08/16/24 1148 Hand Stoner: [facility] External Provider IMG US PROCEDURES Final Result * Protein Creatinine Ratio, Urine (07/30/2024 8:26 AM EDT) Protein, Total, Random Urine <7 <12 mg/dL [facility] Protein/Creatin ine Ratio, Ur TNP <0.2 [facility] Comment:Unable to calculate urine protein creatinine ratio due tolow creatinine or protein result. 07/30/2024 8:26 AM EDT 07/30/2024 9:39 AM EDT Generic External Data Provider LAB URINE ORDERAB LES Final Result [facility] [address] [place] [phone] [phone] * (ABNORMAL) Urinalysis with Reflex to Microscopic (07/30/2024 8:26 AM EDT) Color Urine Yellow [facility] Appearance Urine Cloudy [facility] PH 5.5 5.0 - 9.0 [facility] Glucose Urine UA >=1000(A) Negative mg/dL [facility] Urine Blood Negative Negative [facility] Specific [place] - Urine 1.015 1.005 - 1.025 [facility] Urine Protein Negative Neg-Trace mg/dL [facility] Urine Ketones Negative Negative mg/dL [facility] Nitrite Urine Negative Negative [facility] Leukocyte Esterase Urine Moderate (2+)(A) Negative [facility] 07/30/2024 8:26 AM EDT 07/30/2024 9:39 AM EDT us Generic External Data Provider LAB URINE ORDERAB LES Final Result Performing Organization Address [place] de Phone Number [facility] [address] [place] [phone] * Albumin, Random Urine W/Creatinine (07/30/2024 8:26 AM EDT) Creatinine, Urine 82.20 mg/dL [facility] Microalbumin Urine 17.0 mg/L [facility] Microalbum Creatinine Ratio Ur 20.6 <30 ug/mg cr [facility] Comment:Albumin/Creatinine R atio Reference Ranges: Normal: < 30 ug/mg creatinine Microalbuminuria: 30 - 300 ug/mg creatinineClinical Albuminuria: > 300 ug/mg creatinine 07/30/2024 8:26 AM EDT 07/30/2024 9:39 AM EDT us Generic External Data Provider LAB URINE ORDERAB LES Final Result Performing Organization Address [facility] de Phone Number [facility] [address] [place] [phone] * (ABNORMAL) Urinalysis Complete (07/30/2024 8:26 AM EDT) Color Urine Yellow [facility] Appearance Urine Cloudy [facility] PH 5.5 5.0 - 9.0 [facility] Glucose Urine UA >=1000(A) Negative mg/dL [facility] Urine Blood Negative Negative [facility] Specific [place] - Urine 1.015 1.005 - 1.025 [facility] Urine Protein Negative Neg-Trace mg/dL [facility] Urine Ketones Negative Negative mg/dL [facility] Nitrite Urine Negative Negative [facility] Leukocyte Esterase Urine Moderate (2+)(A) Negative [facility] RBC Urine 0-2 0 - 2 /HPF [facility] Urine WBC 21-50(A) 0 - 5 /HPF [facility] Urine Squamous Epithelial Cell >20 0 - 2 /HPF [facility] Urine Bacteria 4+ None Seen [facility] Hyaline Casts, Urine 3-5 0 - 2 /LPF [facility] 07/30/2024 8:26 AM EDT 07/30/2024 9:39 AM EDT us Generic External Data Provider LAB URINE ORDERAB LES Final Result [facility] [address] [place] [phone] * (ABNORMAL) Vitamin D, 25-Hydroxy, Total, Immunoassay (07/30/2024 8:25 AM EDT) Vitamin D 25-OH Total 28.3(L) >30 ng/mL [facility] Comment:Health Based Referen ce Values*< 20 ng/mL [id number] ng/mL Insufficient> 30 ng/mL Sufficient*Christi KOCH. N [...] Provider LAB BLOOD ORDERAB LES Final Result [facility] [address] [place] [phone] * (ABNORMAL) CBC auto differential (07/30/2024 8:25 AM EDT) Only the most recent of2 resultswithin the time period is included. White Blood Count 5.3 4.8 - 10.8 X10*3/uL [facility] Red Blood Count 4.49 4.20 - 5.50 X10*6/uL [facility] Hemoglobin 12.0 12.0 - 16.0 g/dl [facility] Hematocrit 35.8(L) 37.0 - 47.0 % [facility] Mean Corpuscular Volume 79.7(L) 80.0 - 98.0 fL [facility] Mean Corpuscular Hemoglobin 26.7(L) 27.0 - 33.0 pg [facility] Mean Corpuscular HGB Conc 33.5 31.0 - 35.0 g/dl [facility] Red Cell Distribution Width 18.8(H) 11.0 - 16.0 % [facility] Platelet Count 179 160 - 400 X10*3/uL [facility] Mean Platelet Volume 9.4 9.4 - 12.3 fL [facility] Neutrophils Percent Auto 51.4 45 - 73 % [facility] Imm Gran Pct Auto 0.6(H) 0.0 - 0.4 % [facility] Lymphocytes Percent Auto 31.0 20 - 40 % [facility] Monocytes Percent Auto 9.9 2 - 11 % [facility] Eosinophils Percent Auto 6.5(H) 0 - 4 % [facility] Basophils Percent Auto 0.6 0 - 2 % [facility] NRBC Pct Auto 0.0 0.0 - 0.2 /100WBC [facility] Neutrophils Absolute Auto 2.7 2.0 - 8.3 x10*3/uL [facility] Imm Gran Abs Auto 0.03 0.00 - 0.03 X10*3/uL [facility] Lymphocytes Absolute Auto 1.6 1.2 - 4.9 X10*3/uL [facility] Monocytes Absolute Auto 0.5 0.1 - 1.2 X10*3/uL [facility] Eosinophils Absolute Auto 0.3 0.0 - 0.4 X10*3/uL [facility] Basophils Absolute Auto 0.0 0.0 - 0.2 X10*3/uL [facility] NRBC Abs Auto 0.000 0.0 - 0.012 X10*3/uL [facility] 07/30/2024 8:25 AM EDT 07/30/2024 8:25 AM EDT us Generic External Data Provider LAB BLOOD ORDERAB LES Final Result Performing Organization Address [facility] Co de Phone Number [facility] [address] [place] [phone] * Iron And Total Iron Binding Capacity (07/30/2024 8:25 AM EDT) Iron 87 30 - 160 mcg/dL [facility] Total Iron Binding Capacity 251 228 - 428 mcg/dL [facility] Percent Iron Saturation 35 15 - 50 % [facility] Unsaturated Iron Binding 164 ug/dL [facility] 07/30/2024 8:25 AM EDT 07/30/2024 8:25 AM EDT us Generic External Data Provider LAB BLOOD ORDERAB LES Final Result [facility] [address] [place] [phone] * Phosphate (As Phosphorus) (07/30/2024 8:25 AM EDT) Phosphorus 4.0 2.7 - 4.5 mg/dL [facility] 07/30/2024 8:25 AM EDT 07/30/2024 8:25 AM EDT us Generic External Data Provider LAB BLOOD ORDERAB LES Final Result Performing Organization Address [facility] Co de Phone Number [facility] [address] [place] [phone] * (ABNORMAL) PTH, Intact Without Calcium (07/30/2024 8:25 AM EDT) Parathyroid Hormone, Intact 475.0(H) 8.7 - 77.1 pg/mL [facility] 07/30/2024 8:25 AM EDT 07/30/2024 8:25 AM EDT us Generic External Data Provider LAB BLOOD ORDERAB LES Final Result Performing Organization Address [place] de Phone Number [facility] [facility] [address] [place] [phone] * Magnesium (07/30/2024 8:25 AM EDT) Magnesium 2.1 1.6 - 2.6 mg/dL [facility] 07/30/2024 8:25 AM EDT 07/30/2024 8:25 AM EDT Generic External Data Provider LAB BLOOD ORDERAB LES Final Result Performing Organization Address [facility] Co de Phone Number [facility] [address] [place] [phone] * (ABNORMAL) Ferritin (07/30/2024 8:25 AM EDT) Only the most recent of2 resultswithin the time period is included. Ferritin 398(H) 10 - 250 ng/mL [facility] 07/30/2024 8:25 AM EDT 07/30/2024 8:25 AM EDT us Generic External Data Provider LAB BLOOD ORDERAB LES Final Result Performing Organization Address [facility] Co de Phone Number [facility] [address] [place] [address] [phone] * Lipid Panel, Standard (07/30/2024 8:25 AM EDT) Triglycerides 130 <150 mg/dL [facility] Comment:Desirable Triglyceri de: less than 150 mg/dLBorderline High Triglyceride 150-199 mg/dLHigh Triglyceride: 200-499 mg/dLVery High Triglyceride: greater than or equal to 5OO mg/dL Cholesterol 126 <200 mg/dL [facility] Comment:Desirable Cholestero l: less than 200 mg/dLBorderline High Cholesterol: 200-239 mg/dLHigh Cholesterol: greater than 239 mg/dL LDL Cholesterol Calculated 53 <100 mg/dL [facility] Comment:Desirable LDL: less than 100 mg/dLNear Optimal/Above Optimal LDL: 110- 129 mg/dLBorderline High LDL: 130-159 mg/dLHigh LDL: 160-189 mg/dLVery High LDL: greater than or equal to 190 mg/dL HDL Cholesterol 47 >40 mg/dL [facility] Comment:Desirable HDL: great er than 40 mg/dL Note: This HDL assay may give artificially low results in patients with liver disease. Blood Venous blood specimen / Unknown 07/30/2024 8:25 AM EDT 07/30/2024 8:25 AM EDT us Angela Haley MD LAB BLOOD ORDERABLES Final Result Performing Organization Address City/[facility]/ZIP Co de Phone Number [facility] [address] [place] [phone] [phone] * (ABNORMAL) Comprehensive Metabolic Panel (07/30/2024 8:25 AM EDT) Only the most recent of2 resultswithin the time period is included. Sodium 144 135 - 145 mmol/L [facility] Potassium 3.9 3.3 - 5.1 mmol/L [facility] Chloride 108 96 - 108 mmol/L [facility] Carbon Dioxide 27 22 - 29 mmol/L [facility] Anion Gap 13 12 - 20 [facility] Urea Nitrogen (BUN) 31(H) 9 - 16 mg/dL [facility] Creatinine, Serum 1.57(H) 0.5 - 1.4 mg/dL [facility] Estimated Glomerular Filt Rate 33 [facility] Comment:Chronic Kidney Disea se: Estimated GFR < 60 mL/min/1.25n8Sosqfu Kidney Disease: Estimated GFR < 15 mL/min/1.73m2 Glucose 161(H) 60 - 115 mg/dL [facility] Calcium 9.3 8.4 - 10.2 mg/dL [facility] Bilirubin, Total 0.5 0.0 - 1.0 mg/dL [facility] Aspartate Amino Transferase 41(H) 5 - 31 U/L [facility] Alanine Aminotransferase 33(H) 0 - 31 U/L [facility] Total Protein 7.9 6.5 - 8.0 g/dL [facility] Albumin Level 3.8 3.5 - 5.0 g/dL [facility] Alkaline Phosphatase 134(H) 39 - 117 U/L [facility] Blood Venous blood specimen / Unknown 07/30/2024 8:25 AM EDT 07/30/2024 8:25 AM EDT us Angela Haley MD LAB BLOOD ORDERABLES Final Result [facility] [address] [place] [address] [phone] * Prothrombin Time-INR (07/22/2024 10:21 AM EST) [facility] Prothrombin Time 12.0 10.9 - 12.4 SEC [facility] INTERNATIONAL NORM RATIO 1.0 0.9 - 1.1 [facility] Comment:INTERNATIONAL NORMAL IZED RATIO (INR) [...] ORDERAB LES Final Result Performing Organization Address [facility]/ZIP Co de Phone Number [facility] [address] [place] [phone] * (ABNORMAL) POCT glucose manually resulted (06/28/2024 11:07 AM EST) [facility] Glucose Blood, POC 273(A) 60 - 200 mg/dL [facility] Blood Capillary blood specimen / Unknown 06/28/2024 11:07 AM EST us Angela Haley MD POINT OF CARE TEST EN TER/EDIT ORDERABLES Final Result Performing Organization Address [facility]/ZIP Co de Phone Number [facility] [address] [place] [phone] * Hepatitis Panel, General (03/20/2023 11:30 AM EDT) [facility] Hepatitis A IgM Nonreactive Nonreactive [facility] Comment:IgM antibodies to [place]O V not detected; does not exclude earlyacute or recovered HAV infection. ~Hepatitis B Surface Antibody NONREACTIVE Nonreactive [facility] Comment:Nonreactive: < 8.00 mIU/mL Hepatitis B Core Antibody Nonreactive Nonreactive [facility] Hepatitis C Antibody Nonreactive Nonreactive [facility] Comment:Antibodies to HCV no t detected; does not exclude early acuteHCV infection. Hepatitis B Surface Ag Negative Negative [facility] 03/20/2023 11:3 0 AM EDT 03/20/2023 11:32 AM EDT [facility] External Provider LAB BLO OD ORDERABLES Final Result [facility] [address] [place] [address] [phone] * Mammography (04/08/2022) Mammogram Bi-rads 2 Anatomical Region Laterality Modality Other Historical Provider HEALTH MAINTENANCE Final Result from Last 3 Months or Most Recently Relevant to Health Maintenance Insurance [facility] PENITENTIARY OPTIONS (O D-SNP) RELL OSORIO [id number] [facility] Care Teams Master Ocean Relationship Specialty Start Date End Date Angela Luz MD [address] [place] [address] PCP - General Family Medicine 10/27/20 Ninfa Dietrich, LauraD [address] [place], [place] Pharmacist Internal Medicine 11/10/23 [employer] 12/20/23
--- OUTSIDE RECORDS SUMMARY | 2024-09-25 10:18 | XMS_ITS | Encounter Summary ---
Author Organization [employer] [facility] Address [address] [place] [address] Care Team Providers Care Travel Nurse Name Role Phone Angelica Guerra MD Primary Care Provider Unava ilable Angelica Guerra MD Unavailable Unavailable Stacie Easton PA-C Unavailable Mahesh Acevedo NP Unavailable [phone] [facility], Pcp Primary Care Provider Unavailabl e Encounter Details Date Type Department Care Team Description 07/24/2019 Parking Officer Report Medical Records [address] [place] [address] Willy Avilez Social History Tobacco Use Types [...] on filedocumented in this encounter Care Teams Travel Nurse Relationship Specialty Start Date End Date Angelica Guerra MD PCP - General Internal Medicine 03/02/17 08/01/21 [facility], Pcp PCP - General Internal Medicine 08/02/21 Angelica Guerra MD 02/10/17 Stacie Easton PA-C Specialist Cardiology 12/24/20 Mahesh Acevedo NP Specialist Cardiology 12/24/20 documented as of this encounter
--- OUTSIDE RECORDS SUMMARY | 2024-09-25 10:18 | XMS_ITS | Encounter Summary ---
Author Organization [employer] [facility] Address [address] [place] [address] Care Team Providers Care Computer Scientist Name Role Phone Angelica Guerra MD Primary Care Provider Unava ilable Angelica Guerra MD Unavailable Unavailable Stacie Easton PA-C Unavailable Mahesh Acevedo NP Unavailable [phone] [facility], Pcp Primary Care Provider Unavailabl e Encounter Details Date Type Department Care Team Description 11/18/2019 Consulting Sme Report Medical Records [address] [place] [phone] Ava Morse MD Social History Tobacco Use [...] on filedocumented in this encounter Care Teams Computer Scientist Relationship Specialty Start Date End Date Angelica Guerra MD PCP - General Internal Medicine 03/02/17 08/01/21 [facility], Pcp PCP - General Internal Medicine 08/02/21 Angelica Guerra MD 02/10/17 Stacie Easton PA-C Specialist Cardiology 12/24/20 Mahesh Acevedo NP Specialist Cardiology 12/24/20 documented as of this encounter
--- OUTSIDE RECORDS SUMMARY | 2024-09-25 10:18 | XMS_ITS | Encounter Summary ---
Author Organization [employer] Address [address] [facility] 7t [place] [address] Care Team Providers Care Cotton Farmworker Name Role Phone Angela Luz MD Primary Care Provide r Ninfa Dietrich PharmD Unavailable [phone] Encounter Details Date Type Department Care Team (Late st Contact Info) Description 03/26/2024 Orders Only [facility] [address] [place], [place] [phone] Angela Luz MD [address] [place], [place] [phone] Social History Tobacco Use Types Packs/Day Years [...] Description 10/17/2024 10:00 AM EDT Clinical Support [address] [address] Nazia Martins RN 10/21/2024 10:00 AM EDT Medication Management [address] [address] Ninfa Dietrich, LauraD [address] [place] [address] 10/28/2024 9:00 AM EDT Office Visit [address] [address] Angela Luz MD [address] [place] [phone] documented as of this encounter Goals Goal Patient Goal Type Associated Problems Recent Progress Patient-Stated? Author Blood Pressure < 140/90 Blood Pressure 120/44(2024 10:03 AM EDT) No Ady Araujo Hemoglobin A1c < 8 Result Component 8.5( 10:01 AM EDT) Ady Chan Note: Comorbidities: CHF, CKD, cirrhosis documented as of this encounter Visit Diagnoses Not on filedocumented in this encounter Care Teams Cotton Farmworker Relationship Specialty Start Date End Date Angela Luz MD [address] [place] [address] PCP - General Family Medicine 10/27/20 Ninfa Dietrich, Shadia [address] [place] [address] Pharmacist Internal Medicine 11/10/23 [employer] 12/20/23 documented as of this encounter
--- OUTSIDE RECORDS SUMMARY | 2024-09-25 10:18 | XMS_ITS | Encounter Summary ---
Author Organization [employer] [facility] Address [address] [place] [address] Care Team Providers Care Assembler Flexible Leads Name Role Phone Angelica Guerra MD Primary Care Provider Unava ilable Angelica Guerra MD Unavailable Unavailable Stacie Easton PA-C Unavailable Mahesh Acevedo NP Unavailable [phone] [facility], Pcp Primary Care Provider Unavailabl e Encounter Details Date Type Department Care Team Description 08/27/2019 Photographic Equipment Technician Report Medical Records [address] [place] [address] Maia Herring MD Social History Tobacco Use [...] on filedocumented in this encounter Care Teams Assembler Flexible Leads Relationship Specialty Start Date End Date Angelica Guerra MD PCP - General Internal Medicine 03/02/17 08/01/21 [facility], Pcp PCP - General Internal Medicine 08/02/21 Angelica Guerra MD 02/10/17 Stacie Easton PA-C Specialist Cardiology 12/24/20 Mahesh Acevedo NP Specialist Cardiology 12/24/20 documented as of this encounter
--- OUTSIDE RECORDS SUMMARY | 2024-09-25 10:18 | XMS_ITS | Encounter Summary ---
Author Organization [facility] Address [address] [place] [address] Care Team Providers Care Senior Insight Manager Name Role Phone Angelica Guerra MD Primary Care Provider Unava ilable Angelica Guerra MD Unavailable Unavailable Stacie Easton PA-C Unavailable Mahesh Acevedo NP Unavailable [phone] [facility], Pcp Primary Care Provider Unavailabl e Reason for Visit * Reason Onset Date Comments Faxed Refill 08/14/2019 Encounter Details Date Type Department Care Team Description 08/14/2019 Refill Adult Medicine [address] [address] Angelica Guerra MD Faxed Refill Social History Tobacco Use Types Packs/Day Years Used Date Smoking Tobacco: Former Smokeless Tobacco: Never Alcohol Use Standard Drinks/Week Comments No 0 (1 standard drink = 0.6 oz pur e alcohol) Sex Assigned at Date Recorded Not on file documented as of this encounter Miscellaneous Notes * Telephone Encounter - Nisha Freeman M.A. - 08/14/2019 2:04 PM EDT Lab Results Component Value Date NA 138 06/18/2019 K 4.5 06/18/2019 CO2 24 06/18/2019 CL 107 06/18/2019 BUN 53 06/18/2019 CREAT 1.53 06/18/2019 GLU 295 06/18/2019 CA 9.7 06/18/2019 GFR 34 06/18/2019 * Telephone Encounter - Stacie Winifred - 08/14/2019 1:55 PM EDT Patient would like script to be: E-PRESCRIBED/FAXED TO PHARMACY WHEN WAS THE PATIENT'S LAST APPOINTMENT IN ADULT MEDICINE? 07/25/19 WHEN WAS THE LAST TIME THE PATIENT SAW THEIR PCP? 07/25/19 Does patient have an upcoming appointment? Yes 09/19/19 (THE MEDICATION REQUESTED IS ON THE MED [...] N/A Patients current insurance carrier is: Payor: [employer] FFS / Plan: [employer] [place] [facility] / Product Type: MEDICAID RISK documented in this encounter Plan of Treatment Not on file documented as of this encounter Visit Diagnoses Not on filedocumented in this encounter Care Teams Senior Insight Manager Relationship Specialty Start Date End Date Angelica Guerra MD PCP - General Internal Medicine 03/02/17 08/01/21 [facility]cp PCP - General Internal Medicine 08/02/21 Angelica Guerra MD 02/10/17 Stacie Easton PA-C Specialist Cardiology 12/24/20 Mahesh Acevedo NP Specialist Cardiology 12/24/20 documented as of this encounter
--- OUTSIDE RECORDS SUMMARY | 2024-09-25 10:18 | XMS_ITS | Encounter Summary ---
Author Organization [facility] Address [address] [place] [address] Care Team Providers Care Civil Transportation Engineer Name Role Phone Angelica Guerra MD Primary Care Provider Unava ilable Angelica Guerra MD Unavailable Unavailable Stacie Easton PA-C Unavailable Mahesh Acevedo NP Unavailable [phone] [facility], Pcp Primary Care Provider Unavailabl e Reason for Visit * Reason Onset Date Comments APPOINTMENT 11/01/2019 Encounter Details Date Type Department Care Team Description 11/01/2019 Telephone Adult [address] [address] Angelica Guerra MD APPOINTMENT Social History Tobacco Use Types Packs/Day Years Used Date Smoking Tobacco: Former Smokeless Tobacco: Never Alcohol Use Standard Drinks/Week Comments No 0 (1 standard drink = 0.6 oz pur e alcohol) Sex Assigned at Date Recorded Not on file documented as of this encounter Miscellaneous Notes * Telephone Encounter - Dbera Teague M.A. - 11/01/2019 9:30 AM EDT Patient is in need of a 3 month csc f/u due November, polish speaking please book with pcp documented in this encounter Plan of Treatment Not on file documented as of this encounter Visit Diagnoses Not on filedocumented in this encounter Care Teams Civil Transportation Engineer Relationship Specialty Start Date End Date Angelica Guerra MD PCP - General Internal Medicine 03/02/17 08/01/21 [facility] PCP - General Internal Medicine 08/02/21 Angelica Guerra MD 02/10/17 Stacie Easton PA-C Specialist Cardiology 12/24/20 Mahesh Acevedo NP Specialist Cardiology 12/24/20 documented as of this encounter
--- OUTSIDE RECORDS SUMMARY | 2024-09-25 10:18 | XMS_ITS | Encounter Summary ---
Author Organization [employer] Address [address] [facility] 7t [place] [address] Care Team Providers Care Corn Chip Maker Name Role Phone Angela Lzu MD Primary Care Provide r Ninfa Dietrich PharmD Unavailable [phone] Reason for Visit * Reason Onset Date Comments Record Request 09/20/2024 Encounter Details Date Type Department Care Team ([facility] st Contact Info) Description 09/20/2024 Telephone [facility] [address] [place], [place] [phone] Angela Luz MD [address] [place], [place] [phone] Record Request Social History Tobacco Use Types Packs/Day [...] encounter Miscellaneous Notes * Telephone Encounter - Arelis Pérez [place] - 09/20/2024 3:02 PM EDT [facility]. Fax number provided, notes will be faxed over. documented in this encounter Plan of Treatment Upcoming Encounters Date Type Department Care Team (Late st Contact Info) Description 10/17/2024 10:00 AM EDT Clinical Support [facility] [address] [place] [phone] Nazia Martins, RN 10/21/2024 10:00 AM EDT Medication Management [facility] [address] [place] [phone] Ninfa Dietrich, LauraD [address] [place] [address] 10/28/2024 9:00 AM EDT Office Visit [facility] [address] [place] [address] Angela Luz MD [address] [place] [address] documented as of this encounter Goals Goal Patient Goal Type Associated Problems Recent Progress Patient-Stated? Author Blood Pressure < 140/90 Blood Pressure 120/44(2024 10:03 AM EDT) No Ady Araujo Hemoglobin A1c < 8 Result Component 8.5( 10:01 AM EDT) No Ady Araujo Note: Comorbidities: CHF, CKD, cirrhosis documented as of this encounter Visit Diagnoses Not on filedocumented in this encounter Care Teams Corn Chip Maker Relationship Specialty Start Date End Date Angela Luz MD [address] [place] [address] PCP - General Family Medicine 10/27/20 Ninfa Dietrich, LauraD [address] [place] [address] Pharmacist Internal Medicine 11/10/23 [employer] 12/20/23 documented as of this encounter
--- OUTSIDE RECORDS SUMMARY | 2024-09-25 10:18 | XMS_ITS | Encounter Summary ---
Author Organization [employer] Address [address] [facility] 7t [place] [address] Care Team Providers Care Radiation Therapist Name Role Phone Angela Luz MD Primary Care Provide r Ninfa Dietrich PharmD Unavailable Reason for Visit * Reason Comments Med Refill Encounter Details Date Type Department Care Team ([facility] Contact Info) Description 07/21/2022 Refill [facility] [address] [place], [place] [phone] Ava Winn DO [address] [place], [place] [phone] Other chronic pain Social History Tobacco Use [...] Upcoming Encounters Date Type Department Care Team ([facility] Contact Info) Description 10/17/2024 10:00 AM EDT Clinical Support [facility] [address] [place] [phone] Nazia Martins, DIAMOND 10/21/2024 10:00 AM EDT Medication Management [address] [address] Ninfa Dietrich PharmD [address] [place] [address] 10/28/2024 9:00 AM EDT Office Visit [address] [address] Angela Luz MD [address] [place] [address] documented as of this encounter Visit Diagnoses Diagnosis Other chronic pain documented in this encounter Care Teams Radiation Therapist Relationship Specialty Start Date End Date Angela Luz MD [address] [place] [address] PCP - General Family Medicine 10/27/20 Ninfa Dietrich PharmD [address] [place] [address] Pharmacist Internal Medicine 11/10/23 [employer] 12/20/23 documented as of this encounter
--- OUTSIDE RECORDS SUMMARY | 2024-09-25 10:18 | XMS_ITS | Encounter Summary ---
Author Organization [facility] Address [address] [place] [address] Care Team Providers Care Staffing Program Manager Name Role Phone Angelica Guerra MD Primary Care Provider Unava ilable Lucia Montes Primary Care Provider Unavailab le Angelica Guerra MD Primary Care Provider Unava ilable Angelica Guerra MD Unavailable Unavailable Angelica Guerra MD Unavailable Unavailable Stacie Easton PA-C Unavailable [facility] NP Unavailable [phone] [facility], Pcp Primary Care Provider [facility] Encounter Details Date Type Department Care Team Description 01/16/2017 Genetic Supervisor Report Medical Records [address] [place] [address] Zeina Renee [address] [place] [address] Social History Tobacco Use Types Packs/Day Years [...] on filedocumented in this encounter Care Teams Staffing Program Manager Relationship Specialty Start Date End Date Angelica Guerra MD PCP - General 06/25/15 02/09/17 Lucia Montes PCP - General Internal Medicine 02/10/17 03/01/17 Angelica Guerra MD PCP - General Internal Medicine 03/02/17 08/01/21 [facility], Pcp PCP - General Internal Medicine 08/02/21 Angelica Guerra MD 06/25/15 02/09/17 Angelica Guerra MD 02/10/17 Stacie Easton PA-C Specialist Cardiology 12/24/20 Mahesh Acevedo NP Specialist Cardiology 12/24/20 documented as of this encounter
--- OUTSIDE RECORDS SUMMARY | 2024-09-25 10:18 | XMS_ITS | Encounter Summary ---
Author Organization [employer] Address [address] [facility] 7t [place] [address] Care Team Providers Care Community Health Educator Name Role Phone Angela Luz MD Primary Care Provide r Ninfa Dietrich PharmD Unavailable Reason for Visit * Reason Comments Med Refill Encounter Details Date Type Department Care Team (Late st Contact Info) Description 09/23/2024 Refill [facility] [address] [place], [place] [phone] Ninfa Dietrich, PharmD [address] [place], [place] [phone] Type 2 diabetes mellitus with stage 3 [...] the past 12 months, has t he eFans, gas, oil or water company threatened to [...] Description 10/17/2024 10:00 AM EDT Clinical Support [facility] [address] [place] [phone] Nazia Mratins RN 10/21/2024 10:00 AM EDT Medication Management [facility] [address] [place] [address] Ninfa Dietrich, PharmD [address] [place] [address] 10/28/2024 9:00 AM EDT Office Visit [facility] [address] [place] [phone] Angela Luz MD [address] [place] [address] documented as of this encounter Goals Goal Patient Goal Type Associated Problems Recent Progress Patient-Stated? Author Blood Pressure < 140/90 Blood Pressure 120/44(2024 10:03 AM EDT) No Sampognaro, Ady Hemoglobin A1c < 8 Result Component 8.5( 5 10:01 AM EDT) No Ady Araujo Note: Comorbidities: CHF, CKD, cirrhosis documented as of this encounter Visit Diagnoses Diagnosis Type 2 diabetes mellitus with stage 3 chronic kidney disease, with long-term current use of insulin, unspecified whether stage 3a or 3b CKD (CMS/HCC) documented in this encounter Care Teams Community Health Educator Relationship Specialty Start Date End Date Angela Luz MD [address] [place] [address] PCP - General Family Medicine 10/27/20 Ninfa Dietrich, LauraD [address] [place] [address] Pharmacist Internal Medicine 11/10/23 [employer] 12/20/23 documented as of this encounter
--- OUTSIDE RECORDS SUMMARY | 2024-09-25 10:19 | XMS_ITS | Encounter Summary ---
Author Organization [facility] Address [address] [place] [address] Care Team Providers Care Multifocal Button Grinder Name Role Phone Angelica Guerra MD Primary Care Provider Unava ilable Angelica Guerra MD Unavailable Unavailable Stacie Easton PA-C Unavailable Mahesh Acevedo NP Unavailable [phone] [facility], Pcp Primary Care Provider Unavailabl e Encounter Details Date Type Department Care Team Description 01/23/2020 Device Test Engineer Report Medical Records [address] [place] [address] Beau Vargas MD Social History Tobacco Use Types Packs/Day [...] on filedocumented in this encounter Care Teams Multifocal Button Grinder Relationship Specialty Start Date End Date Angelica Guerra MD PCP - General Internal Medicine 03/02/17 08/01/21 [facility], Pcp PCP - General Internal Medicine 08/02/21 Angelica Guerra MD 02/10/17 Stacie Easton PA-C Specialist Cardiology 12/24/20 Mahehs Acevedo NP Specialist Cardiology 12/24/20 documented as of this encounter
--- OUTSIDE RECORDS SUMMARY | 2024-09-25 10:19 | XMS_ITS | Encounter Summary ---
Author Organization [email or web address] [facility] Address [address] [place] [address] Care Team Providers Care Primary Mill Roller Name Role Phone Angelica Guerra MD Primary Care Provider Unava ilable Angelica Guerra MD Unavailable Unavailable Stacie Easton PA-C Unavailable Mahesh Acevedo NP Unavailable [phone] [facility], Pcp Primary Care Provider Unavailabl e Encounter Details Date Type Department Care Team Description 12/17/2019 Survey Technician Report Medical Records [address] [place] [address] Nabeel March MD Social History Tobacco Use [...] on filedocumented in this encounter Care Teams Primary Mill Roller Relationship Specialty Start Date End Date Angelica Guerra MD PCP - General Internal Medicine 03/02/17 08/01/21 [facility], Pcp PCP - General Internal Medicine 08/02/21 Angelica Guerra MD 02/10/17 Stacie Easton PA-C Specialist Cardiology 12/24/20 Mahesh Acevedo NP Specialist Cardiology 12/24/20 documented as of this encounter
--- OUTSIDE RECORDS SUMMARY | 2024-09-25 10:19 | XMS_ITS | Encounter Summary ---
Author Organization [facility] Address [address] [place] [address] Care Team Providers Care Corporate Intern Name Role Phone Angelica Guerra MD Primary Care Provider Unava ilable Angelica Guerra MD Unavailable Unavailable Stacie Easton PA-C Unavailable Mahesh Acevedo NP Unavailable [phone] [facility], Pcp Primary Care Provider Unavailabl e Encounter Details Date Type Department Care Team Description 07/21/2017 [facility] Medical Records [address] [place] [address] Abstract, Provider Social History Tobacco Use Types [...] on filedocumented in this encounter Care Teams Corporate Intern Relationship Specialty Start Date End Date Angelica Guerra MD PCP - General Internal Medicine 03/02/17 08/01/21 [facility] Pcp PCP - General Internal Medicine 08/02/21 Angelica Guerra MD 02/10/17 Stacie Easton PA-C Specialist Cardiology 8/5/21 Mahesh Acevedo NP Specialist Cardiology 12/24/20 documented as of this encounter
--- OUTSIDE RECORDS SUMMARY | 2024-09-25 10:19 | XMS_ITS | Encounter Summary ---
Author Organization [employer] Address [address] [facility] 7t [place] [address] Care Team Providers Care Phone Representative Name Role Phone Angela Luz MD Primary Care Provide r Ninfa Dietrich PharmD Unavailable [phone] Reason for Visit * Reason Onset Date Comments Med Refill 02/28/2023 Encounter Details Date Type Department Care Team (Late st Contact Info) Description 02/28/2023 Refill [facility] MEDICINE [address] [place], [place] [phone] Angela Luz MD [address] [place], [place] [phone] Other chronic pain Social History Tobacco Use Types Packs/Day Years Used Date Smoking Tobacco: Never Smokeless Tobacco: Never Alcohol Use Standard Drinks/Week Comments Never 0 (1 standard drink = 0.6 oz pur e alcohol) Housing Stability Answer Date Recorded What is your housing situation today? I have calosamado carmen 02/27/[address] you [...] Description 10/17/2024 10:00 AM EDT Clinical Support [address] [address] Nazia Martins RN 10/21/2024 10:00 AM EDT Medication Management [address] [address] Ninfa Dietrich PharmD [address] [place] [address] 10/28/2024 9:00 AM EDT Office Visit [address] [address] Angela Luz MD [address] [place] [address] documented as of this encounter Visit Diagnoses Diagnosis Other chronic pain documented in this encounter Care Teams Phone Representative Relationship Specialty Start Date End Date Angela Luz MD [address] [place] [address] PCP - General Family Medicine 10/27/20 Ninfa Dietrich PharmD [address] [place] [address] Pharmacist Internal Medicine 11/10/23 Pfenex 12/20/23 documented as of this encounter
--- OUTSIDE RECORDS SUMMARY | 2024-09-25 10:19 | XMS_ITS | Encounter Summary ---
Author Organization [employer] [facility] Address [address] [place] [address] Care Team Providers Care Parts Person Name Role Phone Angelica Guerra MD Primary Care Provider Unava ilable Angelica Guerra MD Unavailable Unavailable Stacie Easton PA-C Unavailable Mahesh Acevedo NP Unavailable [phone] [facility], Pcp Primary Care Provider Unavailabl e Encounter Details Date Type Department Care Team Description 06/21/2017 Credit Card Associate Report Medical Records [address] [place] [address] Willy Avilez Social History Tobacco Use Types [...] on filedocumented in this encounter Care Teams Parts Person Relationship Specialty Start Date End Date Angelica Guerra MD PCP - General Internal Medicine 03/02/17 08/01/21 [facility] Pcp PCP - General Internal Medicine 08/02/21 Angelica Guerra MD 02/10/17 Stacie Easton PA-C Specialist Cardiology 12/24/20 Mahesh Acevedo NP Specialist Cardiology 12/24/20 documented as of this encounter
--- OUTSIDE RECORDS SUMMARY | 2024-09-25 10:19 | XMS_ITS | Encounter Summary ---
Author Organization [facility] Address [address] [place] [address] Care Team Providers Care Associate Consulting Engineer Name Role Phone Angelica Guerra MD Primary Care Provider Unava ilable Angelica Guerra MD Unavailable Unavailable Stacie Easton PA-C Unavailable Mahesh Acevedo NP Unavailable [phone] [facility], Pcp Primary Care Provider Unavailabl e Reason for Visit * Reason Onset Date Comments Provider Call Back 05/09/2017 Encounter Details Date Type Department Care Team Description 05/09/2017 Telephone Physiatry - [address] [address] Champ Asif DO Provider Call Back Social [...] filedocumented in this encounter Care Teams Associate Consulting Engineer Relationship Specialty Start Date End Date Angelica Guerra MD PCP - General Internal Medicine 03/02/17 08/01/21 [facility] PCP - General Internal Medicine 08/02/21 Angelica Guerra MD 02/10/17 Stacie Easton PA-C Specialist Cardiology 12/24/20 Mahesh Acevedo NP Specialist Cardiology 12/24/20 documented as of this encounter
--- OUTSIDE RECORDS SUMMARY | 2024-09-25 10:19 | XMS_ITS | Encounter Summary ---
Author [facility] Address [address] [place] [address] Care Team Providers Care Sat Act Instructor Name Role Phone Angelica Guerra MD Primary Care Provider Unava ilable Angelica Guerra MD Unavailable Unavailable Stacie Easton PA-C Unavailable Mahesh Acevedo NP Unavailable [phone] [facility], Pcp Primary Care Provider Unavailabl e Reason for Referral * Non ELIANE (Routine) - Closed Specialty Diagnoses / Procedures Referred By Contcordelia t Referred To Contact Podiatry Procedures REFERRAL TO PODIATRY (IN NETWORK) Angelica Guerra MD [address] [place] [address] Pod/[place] [address] [place] [address] Referral ID Status Reason Start Date Expiration Date Visits Re quested Visits Authorized [id number] Closed 12/18/2019 12/17/2020 1 1 Reason for Visit * Reason Onset Date Comments Call From Hospital 12/17/2019 Encounter Details Date Type Department Care Team Description 12/17/2019 Telephone Adult [facility] [address] [place] [address] Angelica Guerra MD Call From Hospital Social [...] 12/19/2019 10:30 AM EDT Order faxed to [facility] Mammo fax# [phone] * Telephone Encounter - Angelica Guerra MD - 12/18/2019 3:21 PM EDT Placed mammo order (usually gets it here, but now w/ dx of breast CA and subsequent imaging being done at [facility], can fax the order there) Her Lucille mammo was canceled due to COVID Pls fax to [facility] as indicated * Telephone Encounter - Pete Puga - 12/17/2019 11:04 AM EDT Deanna at Radiation Oncology at [facility] calling on behalf of Dr. Morse's office [...] Primary documented in this encounter Care Teams Sat Act Instructor Relationship Specialty Start Date End Date Angelica Guerra MD PCP - General Internal Medicine 03/02/17 08/01/21 [facility], Pcp PCP - General Internal Medicine 08/02/21 Angelica Guerra MD 02/10/17 Stacie Easton PA-C Specialist Cardiology 12/24/20 Mahesh Acevedo NP Specialist Cardiology 12/24/20 documented as of this encounter
--- OUTSIDE RECORDS SUMMARY | 2024-09-25 10:19 | XMS_ITS | Encounter Summary ---
Author Organization [facility] Address [address] [place] [address] Care Team Providers Care Facs Teacher Name Role Phone Angelica Guerra MD Primary Care Provider Unava ilable Angelica Guerra MD Primary Care Provider Unava ilable Lucia Montes Primary Care Provider Unavailab le Angelica Guerra MD Primary Care Provider Unava ilable Angelica Guerra MD Unavailable Unavailable Angelica Guerra MD Unavailable Unavailable Stacie Easton PA-C Unavailable [facility] Unavailable [phone] [facility], Pcp Primary Care Provider Unavailabl e Encounter Details Date Type Department Care Team Description 03/30/2011 Telephone Adult Medicine [address] [address] Angelica Guerra MD Social History Tobacco Use Types Packs/Day [...] on filedocumented in this encounter Care Teams Facs Teacher Relationship Specialty Start Date End Date Guerra, Angelica, MD PCP - General 02/10/11 06/24/15 Angelica Guerra MD PCP - General 06/25/15 02/09/17 Lucia Montes PCP - General Internal Medicine 02/10/17 03/01/17 Angelica Guerra MD PCP - General Internal Medicine 03/02/17 08/01/21 [facility], [facility] PCP - General Internal Medicine 08/02/21 Angelica Guerra MD 06/25/15 02/09/17 Angelica Guerra MD 02/10/17 Stacie Easton PA-C Specialist Cardiology 12/24/20 Mahesh Acevedo NP Specialist Cardiology 12/24/20 documented as of this encounter
--- OUTSIDE RECORDS SUMMARY | 2024-09-25 10:19 | XMS_ITS | Encounter Summary ---
Author Organization [facility] Address [address] [place] [address] Care Team Providers Care Battery Repairer Name Role Phone Angelica Guerra MD Primary Care Provider Unava ilable Angelica Guerra MD Unavailable Unavailable Stacie Easton PA-C Unavailable Mahesh Acevedo NP Unavailable [phone] [facility], Pcp Primary Care Provider Unavailabl e Encounter Details Date Type Department Care Team Description 05/31/2017 Buffing And Polishing Wheel Repairer Report Medical Records [address] [place] [address] Willy Avilez Social History Tobacco Use Types [...] on filedocumented in this encounter Care Teams Battery Repairer Relationship Specialty Start Date End Date Angelica Guerra MD PCP - General Internal Medicine 03/02/17 08/01/21 [facility], Pcp PCP - General Internal Medicine 08/02/21 Angelica Guerra MD 02/10/17 Stacie Easton PA-C Specialist Cardiology 12/24/20 Mahesh Acevedo NP Specialist Cardiology 12/24/20 documented as of this encounter
--- OUTSIDE RECORDS SUMMARY | 2024-09-25 10:19 | XMS_ITS | Encounter Summary ---
Author Organization [employer] Address [address] [facility] 7t [place] [address] Care Team Providers Care Dock Superintendent Name Role Phone Angela Luz MD Primary Care Provide r Ninfa Dietrich PharmD Unavailable [phone] Reason for Visit * Reason Onset Date Comments Med Refill 03/14/2024 Encounter Details Date Type Department Care Team (Late st Contact Info) Description 03/14/2024 Refill [facility] MEDICINE [address] [place], [place] [phone] Angela Luz MD [address] [place], [place] [phone] Social History Tobacco Use Types Packs/Day Years [...] Description 10/17/2024 10:00 AM EDT Clinical Support [address] [address] Nazia Martins RN 10/21/2024 10:00 AM EDT Medication Management [address] [address] Ninfa Dietrich, PharmD [address] [place] [address] 10/28/2024 9:00 AM EDT Office Visit [address] [address] Angela Luz MD [address] [place] [address] documented as of this encounter Goals Goal Patient Goal Type Associated Problems Recent Progress Patient-Stated? Author Blood Pressure < 140/90 Blood Pressure 120/44(2024 10:03 AM EDT) No Ady Araujo Hemoglobin A1c < 8 Result Component 8.5( 10:01 AM EDT) No Ady Araujo Note: Comorbidities: CHF, CKD, cirrhosis documented as of this encounter Visit Diagnoses Not on filedocumented in this encounter Care Teams Dock Superintendent Relationship Specialty Start Date End Date Angela Luz MD [address] [place] [address] PCP - General Family Medicine 10/27/20 Ninfa Dietrich, LauraD [address] [place] [address] Pharmacist Internal Medicine 11/10/23 [employer] 12/20/23 documented as of this encounter
--- OUTSIDE RECORDS SUMMARY | 2024-09-25 10:19 | XMS_ITS | Encounter Summary ---
Author Organization [employer] Address [address] [facility] 7t [place] [address] Care Team Providers Care Director Credit Risk Name Role Phone Angela Luz MD Primary Care Provide r Ninfa Dietrich PharmD Unavailable [phone] Reason for Visit * Reason Comments Med Refill Encounter Details Date Type Department Care Team ([facility] st Contact Info) Description 03/14/2023 Refill [facility] MEDICINE [address] [place], [place] [phone] Jeancarlos Brice MD [address] [place], [place] [phone] Chronic pruritus Social History Tobacco Use Types [...] Description 10/17/2024 10:00 AM EDT Clinical Support [address] [address] Nazia Martins RN 10/21/2024 10:00 AM EDT Medication Management [address] [address] Ninfa Dietrich PharmD [address] [place] [address] 10/28/2024 9:00 AM EDT Office Visit [address] [address] Angela Luz MD [address] [place] [address] documented as of this encounter Visit Diagnoses Diagnosis Chronic pruritus documented in this encounter Care Teams Director Credit Risk Relationship Specialty Start Date End Date Angela Luz MD [address] [place] [address] PCP - General Family Medicine 10/27/20 Ninfa Dietrich PharmD [address] [place] [address] Pharmacist Internal Medicine 11/10/23 [employer] 12/20/23 documented as of this encounter
--- OUTSIDE RECORDS SUMMARY | 2024-09-25 10:19 | XMS_ITS | Encounter Summary ---
Author Organization [facility] Address [address] [place] [address] Care Team Providers Care Business Office Technology Instructor Name Role Phone Angelica Guerra MD Primary Care Provider Unava ilable Angelica Guerra MD Primary Care Provider Unava ilable Lucia Montes Primary Care Provider Unavailab le Angelica Guerra MD Primary Care Provider Unava ilable Angelica Guerra MD Unavailable Unavailable Angelica Guerra MD Unavailable Unavailable Stacie Easton PA-C Unavailable [facility] NP Unavailable [phone] [facility], Pcp Primary Care Provider Unavailabl e Encounter Details Date Type Department Care Team Description 05/30/2014 FULL STACK DEVELOPER/Mass[employer] Report Medical Records [address] [place] [address] Abstract, Provider Social History Tobacco Use Types [...] filedocumented in this encounter Care Teams Business Office Technology Instructor Relationship Specialty Start Date End Date Angelica Guerra MD PCP - General 9/22/11 2/3/16 Angelica Guerra MD PCP - General 06/25/15 02/09/17 Lucia Montes PCP - General Internal Medicine 02/10/17 03/01/17 Angelica Guerra MD PCP - General Internal Medicine 03/02/17 08/01/21 [facility], [facility] PCP - General Internal Medicine 08/02/21 Angelica Guerra MD 06/25/15 02/09/17 Angelica Guerra MD 02/10/17 Stacie Easton PA-C Specialist Cardiology 12/24/20 Mahesh Acevedo NP Specialist Cardiology 12/24/20 documented as of this encounter
--- OUTSIDE RECORDS SUMMARY | 2024-09-25 10:19 | XMS_ITS | Encounter Summary ---
Author Organization [facility] Address [address] [place] [address] Care Team Providers Care Roller Printer Name Role Phone Angelica Guerra MD Primary Care Provider Unava ilable Angelica Guerra MD Unavailable Unavailable Stacie Easton PA-C Unavailable Mahesh Acevedo NP Unavailable [phone] [facility], Pcp Primary Care Provider Unavailabl e Encounter Details Date Type Department Care Team Description 01/23/2020 Deputy Sheriff K9 Handler Report Medical Records [address] [place] [address] Beau Vargas [address] [place] [address] Social History Tobacco Use Types Packs/Day Years [...] on filedocumented in this encounter Care Teams Roller Printer Relationship Specialty Start Date End Date Angelica Guerra MD PCP - General Internal Medicine 03/02/17 08/01/21 [facility], Pcp PCP - General Internal Medicine 08/02/21 Angelica Guerra MD 02/10/17 Stacie Easton PA-C Specialist Cardiology 12/24/20 Mahesh Acevedo NP Specialist Cardiology 12/24/20 documented as of this encounter
--- OUTSIDE RECORDS SUMMARY | 2024-09-25 10:19 | XMS_ITS | Encounter Summary ---
Author Organization [facility] Address [address] [place] [address] Care Team Providers Care Director Of Planning Name Role Phone Angelica Guerra MD Primary Care Provider Unava ilable Angelica Guerra MD Unavailable Unavailable Stacie Easton PA-C Unavailable Mahesh Acevedo NP Unavailable [phone] [facility], Pcp Primary Care Provider Unavailabl e Encounter Details Date Type Department Care Team Description 11/08/2017 Music Manager Report Medical Records [address] [place] [address] Zeina Renee [address] [place] [address] Social History Tobacco Use Types Packs/Day Years [...] in this encounter Care Teams Director Of Planning Relationship Specialty Start Date End Date Angelica Guerra MD PCP - General Internal Medicine 03/02/17 08/01/21 [facility], Pcp PCP - General Internal Medicine 08/02/21 Angelica Guerra MD 02/10/17 Stacie Easton PA-C Specialist Cardiology 12/24/20 Mahesh Acevedo NP Specialist Cardiology 12/24/20 documented as of this encounter
--- OUTSIDE RECORDS SUMMARY | 2024-09-25 10:19 | XMS_ITS | Encounter Summary ---
Author Organization [employer] Address [address] [facility] 7t [place] [address] Care Team Providers Care Communications Electrician Supervisor Name Role Phone nAgela Luz MD Primary Care Provide r Ninfa Dietrich PharmD Unavailable [phone] Reason for Visit * Reason Comments Med Refill Encounter Details Date Type Department Care Team (Late Contact Info) Description 01/27/2023 Refill [facility] MEDICINE [address] [place], [place] [phone] Angela Luz MD [address] [place], [place] [phone] Other chronic pain Social History Tobacco Use [...] Description 10/17/2024 10:00 AM EDT Clinical Support [facility] MEDICINE [address] [place], [place] [phone] Nazia Martins RN 10/21/2024 10:00 AM EDT Medication Management [facility] MEDICINE [address] [place] [address] Ninfa Dietrich PharmD [address] [place] [address] 10/28/2024 9:00 AM EDT Office Visit [facility] MEDICINE [address] [place] [address] Angela Luz MD [address] [place] [address] documented as of this encounter Visit Diagnoses Diagnosis Other chronic pain documented in this encounter Care Teams Communications Electrician Supervisor Relationship Specialty Start Date End Date Angela Luz MD [address] [place] [address] PCP - General Family Medicine 10/27/20 Ninfa Dietrich, LauraD [address] [place] [address] Pharmacist Internal Medicine 11/10/23 [employer] 12/20/23 documented as of this encounter
--- OUTSIDE RECORDS SUMMARY | 2024-09-25 10:19 | XMS_ITS | Encounter Summary ---
Author Organization [employer] Address [address] [facility] 7t [place] [address] Care Team Providers Care Travel Pt Name Role Phone Angela Luz MD Primary Care Provide r Ninfa Dietrich PharmD Unavailable Reason for Visit * Reason Comments Med Refill Encounter Details Date Type Department Care Team (Late Contact Info) Description 02/22/2023 Refill [facility] MEDIC[facility] [address] [place], [place] [phone] Angela Luz MD [address] [place], [place] [phone] Type 2 diabetes mellitus with stage 3 [...] Description 10/17/2024 10:00 AM EDT Clinical Support [address] [address] Nazia Martins RN 10/21/2024 10:00 AM EDT Medication Management [address] [address] Ninfa Dietrich PharmD [address] [place] [address] 10/28/2024 9:00 AM EDT Office Visit [address] [address] Angela Luz MD [address] [place] [phone] documented as of this encounter Visit Diagnoses Diagnosis Type 2 diabetes mellitus with stage 3 chronic kidney disease, with long-term current use of insulin, unspecified whether stage 3a or 3b CKD ([facility]) documented in this encounter Care Teams Travel Pt Relationship Specialty Start Date End Date Angela Luz MD [address] [place] [address] PCP - General Family Medicine 10/27/20 Ninfa Dietrich PharmD [address] [place] [address] Pharmacist Internal Medicine 11/10/23 [employer] 12/20/23 documented as of this encounter
--- OUTSIDE RECORDS SUMMARY | 2024-09-25 10:19 | XMS_ITS | Encounter Summary ---
Author Organization [employer] Address [address] [facility] 7t [place] [address] Care Team Providers Care Sed Special Education Teacher Name Role Phone Angela Luz MD Primary Care Provide r Ninfa Dietrich PharmD Unavailable Reason for Visit * Reason Comments Med Refill Encounter Details Date Type Department Care Team (Late Contact Info) Description 02/20/2023 Refill [facility] [address] [place], [place] [phone] Angela Luz MD [address] [place], [place] [phone] Gastroesophageal reflux disease, unspecified whether esophagitis present [...] Description 10/17/2024 10:00 AM EDT Clinical Support [facility] MEDICINE [address] [place], [place] [phone] Nazia Martins RN 10/21/2024 10:00 AM EDT Medication Management [facility] MEDICINE [address] [place] [address] Ninfa Dietrich PharmD [address] [place] [address] 10/28/2024 9:00 AM EDT Office Visit [facility] MEDICINE [address] [place] [address] Angela Luz MD [address] [place] [address] documented as of this encounter Visit Diagnoses Diagnosis Gastroesophageal reflux disease, unspecified whether esophagitis present documented in this encounter Care Teams Sed Special Education Teacher Relationship Specialty Start Date End Date Angela Luz MD [address] [place] [address] PCP - General Family Medicine 10/27/20 Ninfa Dietrich PharmD [address] [place] [address] Pharmacist Internal Medicine 11/10/23 [employer] 12/20/23 documented as of this encounter
--- OUTSIDE RECORDS SUMMARY | 2024-09-25 10:19 | XMS_ITS | Encounter Summary ---
Author Organization [facility] Address [address] [place] [address] Care Team Providers Care Planning Coordinator Name Role Phone Angelica Guerra MD Primary Care Provider Unava ilable Angelica Guerra MD Primary Care Provider Unava ilable Lucia Montes Primary Care Provider Unavailab le Angelica Guerra MD Primary Care Provider Unava ilable Angelica Guerra MD Unavailable Unavailable Angelica Guerra MD Unavailable Unavailable Stacie Easton PA-C Unavailable [facility] NP Unavailable [phone] [facility], Pcp Primary Care Provider Unavailabl e Encounter Details Date Type Department Care Team Description 02/25/2011 Hospital Medical Records [address] [place] [address] Erik Dang MD Social History Tobacco Use [...] on filedocumented in this encounter Care Teams Planning Coordinator Relationship Specialty Start Date End Date Angelica Guerra MD PCP - General 02/10/11 06/24/15 Angelica Guerra MD PCP - General 06/25/15 02/09/17 Lucia Montes PCP - General Internal Medicine 02/10/17 03/01/17 Angelica Guerra MD PCP - General Internal Medicine 03/02/17 08/01/21 [facility], [facility] PCP - General Internal Medicine 08/02/21 Angelica Guerra MD 06/25/15 02/09/17 Angelica Guerra MD 02/10/17 Stacie Easton PA-C Specialist Cardiology 12/24/20 Mahesh Acevedo NP Specialist Cardiology 12/24/20 documented as of this encounter
--- OUTSIDE RECORDS SUMMARY | 2024-09-25 10:19 | XMS_ITS | Encounter Summary ---
Author Organization [facility] Address [address] [place] [address] Care Team Providers Care Spray Foam Installer Name Role Phone Angelica Guerra MD Primary Care Provider Unava ilable Angelica Guerra MD Unavailable Unavailable Stacie Easton PA-C Unavailable Mahesh Acevedo NP Unavailable [phone] [facility], Pcp Primary Care Provider Unavailabl e Encounter Details Date Type Department Care Team Description 10/10/2017 Ditcher Report Medical Records [address] [place] [address] Willy Avilez Social History Tobacco Use Types [...] on filedocumented in this encounter Care Teams Spray Foam Installer Relationship Specialty Start Date End Date Angelica Guerra MD PCP - General Internal Medicine 03/02/17 08/01/21 [facility], Pcp PCP - General Internal Medicine 08/02/21 Angelica Guerra MD 02/10/17 Stacie Easton PA-C Specialist Cardiology 12/24/20 Mahesh Acevedo NP Specialist Cardiology 12/24/20 documented as of this encounter
--- OUTSIDE RECORDS SUMMARY | 2024-09-25 10:19 | XMS_ITS | Encounter Summary ---
Author Organization [facility] Address [address] [place] [address] Care Team Providers Care Administrative Dietitian Name Role Phone Angelica Guerra MD Primary Care Provider Unava ilable Angelica Guerra MD Primary Care Provider Unava ilable Lucia Montes Primary Care Provider Unavailab le Angelica Guerra MD Primary Care Provider Unava ilable Angelica Guerra MD Unavailable Unavailable Angelica Guerra MD Unavailable Unavailable Stacie Easton PA-C [facility]available [facility] Unavailable [phone] [facility], Pcp Primary Care Provider Unavailabl e Encounter Details Date Type Department Care Team Description 03/14/2011 Home Health Certification Medical Records [address] [place] [address] Vna Social History Tobacco Use Types Packs/Day Years [...] filedocumented in this encounter Care Teams Administrative Dietitian Relationship Specialty Start Date End Date Angelica Guerra MD PCP - General 02/10/11 06/24/15 Angelica Guerra MD PCP - General 06/25/15 02/09/17 Lucia Montes PCP - General Internal Medicine 02/10/17 03/01/17 Angelica Guerra MD PCP - General Internal Medicine 03/02/17 08/01/21 [facility], Pcp PCP - General Internal Medicine 08/02/21 Angelica Guerra MD 06/25/15 02/09/17 Angelica Guerra MD 02/10/17 Stacie Easton PA-C Specialist Cardiology 12/24/20 Mahesh Acevedo NP Specialist Cardiology 12/24/20 documented as of this encounter
--- OUTSIDE RECORDS SUMMARY | 2024-09-25 10:19 | XMS_ITS | Encounter Summary ---
Author Organization [employer] Address [address] [place] [address] Care Team Providers Care Manager English Name Role Phone Angelica Guerra MD Primary Care Provider Unava ilable Angelica Guerra MD Unavailable Unavailable Stacie Easton PA-C Unavailable Mahesh Acevedo NP Unavailable [phone] [facility], Pcp Primary Care Provider Unavailabl e Encounter Details Date Type Department Care Team Description 05/09/2017 Hospital Medical Records [address] [place] [address] Javy Hopkins MD Social History Tobacco Use [...] filedocumented in this encounter Care Teams Manager English Relationship Specialty Start Date End Date Angelica Guerra MD PCP - General Internal Medicine 03/02/17 08/01/21 [facility], Pcp PCP - General Internal Medicine 08/02/21 Angelica Guerra MD 02/10/17 Stacie Easton PA-C Specialist Cardiology 12/24/20 Mahesh Acevedo NP Specialist Cardiology 12/24/20 documented as of this encounter
--- OUTSIDE RECORDS SUMMARY | 2024-09-25 10:20 | XMS_ITS | Encounter Summary ---
Author Organization [employer] [facility] Address [address] [place] [address] Care Team Providers Care Boiling House Hand Name Role Phone Angelica Guerra MD Primary Care Provider Unava ilable Angelica Guerra MD Unavailable Unavailable Stacie Easton PA-C Unavailable Mahesh Acevedo NP Unavailable [phone] [facility], Pcp Primary Care Provider Unavailabl e Encounter Details Date Type Department Care Team Description 06/28/2019 Hospital Medical Records [address] [place] [address] Oziel Sanchez MD [address] [place] [address] Social History Tobacco Use Types Packs/Day Years [...] on filedocumented in this encounter Care Teams Boiling House Hand Relationship Specialty Start Date End Date Angelica Guerra MD PCP - General Internal Medicine 03/02/17 08/01/21 [facility], Pcp PCP - General Internal Medicine 08/02/21 Angelica Guerra MD 02/10/17 Stacie Easton PA-C Specialist Cardiology 12/24/20 Mahesh Acevedo NP Specialist Cardiology 12/24/20 documented as of this encounter
--- OUTSIDE RECORDS SUMMARY | 2024-09-25 10:20 | XMS_ITS | Encounter Summary ---
Author Organization [employer] Address [address] [facility] 7t [place] [address] Care Team Providers Care Slip Cover Maker Name Role Phone Angela Luz MD Primary Care Provide r Ninfa Dietrich PharmD Unavailable [phone] Reason for Visit * Reason Comments Med Refill Encounter Details Date Type Department Care Team (Late Contact Info) Description 09/13/2022 Refill [facility] [address] [place], [place] [phone] Angela Luz MD [address] [place], [place] [phone] Other chronic pain Social History Tobacco Use [...] Description 10/17/2024 10:00 AM EDT Clinical Support [facility] [address] [place], [place] [phone] Nazia Martins RN 10/21/2024 10:00 AM EDT Medication Management [facility] [address] [place] [address] Ninfa Dietrich PharmD [address] [place] [address] 10/28/2024 9:00 AM EDT Office Visit [facility] [address] [place] [address] Angela Luz MD [address] [place] [address] documented as of this encounter Visit Diagnoses Diagnosis Other chronic pain documented in this encounter Care Teams Slip Cover Maker Relationship Specialty Start Date End Date Angela Luz MD [address] [place] [address] PCP - General Family Medicine 10/27/20 Ninfa Dietrich, LauraD [address] [place] [address] Pharmacist Internal Medicine 11/10/23 [employer] 12/20/23 documented as of this encounter
--- OUTSIDE RECORDS SUMMARY | 2024-09-25 10:20 | XMS_ITS | Encounter Summary ---
Author Organization [facility] Address [address] [place] [address] Care Team Providers Care Billet Inspector Name Role Phone Angelica Guerra MD Primary Care Provider Unava ilable Lucia Montes Primary Care Provider Unavailab Angelica Jeong MD Primary Care Provider Unava ilable Angelica Guerra MD Unavailable Unavailable Angelica Guerra MD Unavailable Unavailable Stacie Easton PA-C Unavailable [facility] Unavailable [phone] [facility], Pcp Primary Care Provider Unavailabl e Reason for Visit * Reason Onset Date Comments Testing 01/13/2017 MRI of Cervical Spine CPT- 90971 Encounter Details Date Type Department Care Team Description 01/13/2017 Telephone Adult [address] [address] Angelica Guerra MD Testing (MRI of Cervical Spine CPT- 67054) Social History Tobacco Use Types Packs/Day Years Used Date Smoking Tobacco: Former Smokeless Tobacco: Never Alcohol Use Standard Drinks/Week Comments No 0 (1 standard drink = 0.6 oz pur e alcohol) Sex Assigned at Date Recorded Not on file documented as of this encounter Miscellaneous Notes * Telephone Encounter - Angelica Guerra MD - 01/16/2017 12:54 PM EDT She already has an appt with Physiatry. She did have MRI in 2011 showing disc herniation, spondylosis. Will hold off on peer to peer, if physiatry feels it's needed, can reorder (higher likelihood of getting it approved) * Telephone Encounter - Fabby Cady - 01/13/2017 12:08 PM EDT Insurance is requesting a peer to peer be done before a determination is made on this case. Please call - Option # 3 Please advise Thank you documented in this encounter Plan of Treatment Not on file documented as of this encounter Visit Diagnoses Not on filedocumented in this encounter Care Teams Billet Inspector Relationship Specialty Start Date End Date Angelica Guerra MD PCP - General 06/25/15 02/09/17 Lucia Montes PCP - General Internal Medicine 02/10/17 03/01/17 Angelica Guerra MD PCP - General Internal Medicine 03/02/17 08/01/21 [facility], Pcp PCP - General Internal Medicine 08/02/21 Angelica Guerra MD 06/25/15 02/09/17 Angelica Guerra MD 02/10/17 Stacie Easton PA-C Specialist Cardiology 12/24/20 Mahesh Acevedo NP Specialist Cardiology 12/24/20 documented as of this encounter
--- OUTSIDE RECORDS SUMMARY | 2024-09-25 10:20 | XMS_ITS | Encounter Summary ---
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
--- OUTSIDE RECORDS SUMMARY | 2024-09-25 10:20 | XMS_ITS | Encounter Summary ---
Author Organization [facility] Address [address] [place] [address] Care Team Providers Care Director Chemistry Name Role Phone Angelica Guerra MD Primary Care Provider Unava ilable Angelica Guerra MD Primary Care Provider Unava ilable Lucia Montes Primary Care Provider Unavailab le Angelica Guerra MD Primary Care Provider Unava ilable Angelica Guerra MD Unavailable Unavailable Angelica Guerra MD Unavailable Unavailable Stacie Easton PA-C [facility]available [facility] Unavailable [phone] [facility], Pcp Primary Care Provider Unavailabl e Encounter Details Date Type Department Care Team Description 02/15/2011 Release of Information Medical Records [address] [place] [address] Abstract, Provider Social History Tobacco Use Types [...] filedocumented in this encounter Care Teams Director Chemistry Relationship Specialty Start Date End Date Angelica Guerra MD PCP - General 02/10/11 06/24/15 Angelica Guerra MD PCP - General 06/25/15 02/09/17 Lucia Montes PCP - General Internal Medicine 02/10/17 03/01/17 Angelica Guerra MD PCP - General Internal Medicine 03/02/17 08/01/21 [facility], [facility] PCP - General Internal Medicine 08/02/21 Angelica Guerra MD 06/25/15 02/09/17 Angelica Guerra MD 02/10/17 Stacie Easton PA-C Specialist Cardiology 12/24/20 Mahesh Acevedo NP Specialist Cardiology 12/24/20 documented as of this encounter
--- OUTSIDE RECORDS SUMMARY | 2024-09-25 10:20 | XMS_ITS | Encounter Summary ---
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
--- OUTSIDE RECORDS SUMMARY | 2024-09-25 10:20 | XMS_ITS | Encounter Summary ---
Author Organization [employer] Address [address] [facility] 7t [place] [address] Care Team Providers Care Salesperson Books Name Role Phone Angela Luz MD Primary Care Provide r Ninfa Dietrich PharmD Unavailable [phone] Encounter Details Date Type Department Care Team (Late st Contact Info) Description 08/30/2022 Telephone [facility] [address] [place] [address] Lacie Mtz RN [address] [place] [address] Social History Tobacco Use Types Packs/Day Years [...] 10/17/2024 10:00 AM EDT Clinical Support [address] [address] Nazia Martins RN 10/21/2024 10:00 AM EDT Medication Management [address] [address] Ninfa Dietrich PharmD [address] [place] [address] 10/28/2024 9:00 AM EDT Office Visit [address] [address] Angela Luz MD [address] [place] [address] documented as of this encounter Visit Diagnoses Not on filedocumented in this encounter Care Teams Salesperson Books Relationship Specialty Start Date End Date Angela Luz MD [address] [place] [address] PCP - General Family Medicine 10/27/20 Ninfa Dietrich PharmD [address] [place] [address] Pharmacist Internal Medicine 11/10/23 [employer] 12/20/23 documented as of this encounter
--- OUTSIDE RECORDS SUMMARY | 2024-09-25 10:20 | XMS_ITS | Encounter Summary ---
Author Organization [facility] Address [address] [place] [address] Care Team Providers Care Barge Pilot Name Role Phone Angelica Guerra MD Primary Care Provider Unava ilable Angelica Guerra MD Primary Care Provider Unava ilable Lucia Montes Primary Care Provider Unavailab le Angelica Guerra MD Primary Care Provider Unava ilable Angelica Guerra MD Unavailable Unavailable Angelica Guerra MD Unavailable Unavailable Stacie Easton PA-C Unavailable [facility] NP Unavailable [phone] [facility], Pcp Primary Care Provider Unavailabl e Encounter Details Date Type Department Care Team Description 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 PCP - General Internal Medicine 08/02/21 Angelica Guerra MD 06/25/15 02/09/17 Angelica Guerra MD 02/10/17 Stacie Easton PA-C Specialist Cardiology 12/24/20 Mahesh Acevedo NP Specialist Cardiology 12/24/20 documented as of this encounter
--- OUTSIDE RECORDS SUMMARY | 2024-09-25 10:20 | XMS_ITS | Encounter Summary ---
Author Organization [employer] Address [address] [facility] 7t [place] [address] Care Team Providers Care Home Theater Expert Name Role Phone Angela Luz MD Primary Care Provide r Ninfa Dietrich PharmD Unavailable [phone] Reason for Visit * Reason Comments Med Refill Encounter Details Date Type Department Care Team (Late Contact Info) Description 06/30/2022 Refill [facility] [address] [place] [address] Yunier Mohr MD [address] [place], [place] [phone] Seasonal allergic rhinitis, unspecified trigger Social History [...] 10/17/2024 10:00 AM EDT Clinical Support [address] [address] Nazia Martins RN 10/21/2024 10:00 AM EDT Medication Management [address] [address] Ninfa Dietrich PharmD [address] [place] [address] 10/28/2024 9:00 AM EDT Office Visit [address] [address] Angela Luz MD [address] [place] [address] documented as of this encounter Visit Diagnoses Diagnosis Seasonal allergic rhinitis, unspecified trigger documented in this encounter Care Teams Home Theater Expert Relationship Specialty Start Date End Date Angela Luz MD [address] [place] [address] PCP - General Family Medicine 10/27/20 Ninfa Dietrich PharmD [address] [place] [address] Pharmacist Internal Medicine 11/10/23 [employer] 12/20/23 documented as of this encounter
--- OUTSIDE RECORDS SUMMARY | 2024-09-25 10:20 | XMS_ITS | Encounter Summary ---
Author Organization [employer] Address [address] [facility] [address] 7t [place] [address] Care Team Providers Care Medicare Nurse Name Role Phone Angela Luz MD Primary Care Provide r Ninfa Dietrich PharmD Unavailable [phone] Encounter Details Date Type Department Care Team (Late st Contact Info) Description 04/18/2023 Abstract [facility] [address] [place], [place] [phone] Delia Ballard Social History Tobacco Use Types [...] Description 10/17/2024 10:00 AM EDT Clinical Support [facility] [address] [place] [address] Nazia Martins RN 10/21/2024 10:00 AM EDT Medication Management [address] [address] Ninfa Dietrich PharmD [address] [place] [address] 10/28/2024 9:00 AM EDT Office Visit [facility] [address] [place] [address] Angela Luz MD [address] [place] [address] documented as of this encounter Visit Diagnoses Not on filedocumented in this encounter Care Teams Medicare Nurse Relationship Specialty Start Date End Date Angela Luz MD [address] [place] [address] PCP - General Family Medicine 10/27/20 Ninfa Dietrich PharmD [address] [place] [address] Pharmacist Internal Medicine 11/10/23 [employer] 12/20/23 documented as of this encounter
--- OUTSIDE RECORDS SUMMARY | 2024-09-25 10:20 | XMS_ITS | Encounter Summary ---
Author Organization [employer] Address [address] [facility] 7t [place] [address] Care Team Providers Care Custom Tailor Apprentice Name Role Phone Angela Luz MD Primary Care Provide r Ninfa Dietrich PharmD Unavailable Reason for Visit * Reason Comments Med Refill Encounter Details Date Type Department Care Team (Late Contact Info) Description 12/05/2022 Refill [facility] [address] [place] [address] Angela uLz MD [address] [place], [place] [phone] Diabetic polyneuropathy associated with type 2 diabetes [...] Description 10/17/2024 10:00 AM EDT Clinical Support [address] [address] Nazia Martins, DIAMOND 10/21/2024 10:00 AM EDT Medication Management [address] [address] Ninfa Dietrich PharmD [address] [place] [address] 10/28/2024 9:00 AM EDT Office Visit [address] [address] Angela Luz MD [address] [place] [address] documented as of this encounter Visit Diagnoses Diagnosis Diabetic polyneuropathy associated with type 2 diabetes mellitus ([facility]) Primary hypertension Unspecified essential hypertension Chronic right-sided thoracic back pain documented in this encounter Care Teams Custom Tailor Apprentice Relationship Specialty Start Date End Date Angela Luz MD [address] [place] [address] PCP - General Family Medicine 10/27/20 Ninfa Dietrich PharmD [address] [place] [address] Pharmacist Internal Medicine 11/10/23 [employer] 12/20/23 documented as of this encounter
--- OUTSIDE RECORDS SUMMARY | 2024-09-25 10:20 | XMS_ITS | Encounter Summary ---
Author Organization [facility] Address [address] [place] [address] Care Team Providers Care Kids Activities Coach Name Role Phone Angelica Guerra MD Primary Care Provider Unava ilable Angelica Guerra MD Unavailable Unavailable Stacie Eastno PA-C Unavailable Mahesh Acevedo NP Unavailable [facility], Pcp Primary Care Provider Unavailabl e Reason for Visit * Reason Onset Date Comments Pre-visit Diabetes Lab Adult Medicine 03/07/2019 DM due 03/21/2019 at 1:00 pm Encounter Details Date Type Department Care Team Description 03/07/2019 Telephone Respiratory and Diabetes Medicaid/ACO Pharmacist [address] [place] [address] Angelica Guerra MD Pre-visit Diabetes Lab Adult [...] ask that any orders entered by the [facility] Medicaid staff be associated with a diabetes diagnosis. You can use any diabetes diagnosis found on the problem list. Isha Dominguez Community Health Worker [facility] Net Plan [facility] W [phone] F [phone] documented in this encounter Plan of Treatment Not on file documented as of this encounter Results * (ABNORMAL) HEMOGLOBIN A1C (03/18/2019 8:06 AM EDT) GLYCATED HEMOGLOBIN A1C 10.4(H) <6.5 % 03/18/2019 2:03 PM EDT [facility] ESTIMATED AVERAGE GLUCOSE 252 mg/dL 03/18/2019 2:03 PM EDT [facility] 03/18/2019 8:06 AM EDT 03/18/2019 8:06 AM EDT Angelica Guerra MD LAB [facility] documented in this encounter Visit Diagnoses Diagnosis Type 2 diabetes mellitus with diabetic neuropathy, without long-term current use of insulin (HCC)- Primary documented in this encounter Care Teams Kids Activities Coach Relationship Specialty Start Date End Date Angelica Guerra MD PCP - General Internal Medicine 03/02/17 08/01/21 [facility], [facility] PCP - General Internal Medicine 08/02/21 Angelica Guerra MD 02/10/17 Stacie Easton PA-C Specialist Cardiology 12/24/20 Mahesh Acevedo NP Specialist Cardiology 12/24/20 documented as of this encounter
--- OUTSIDE RECORDS SUMMARY | 2024-09-25 10:20 | XMS_ITS | Encounter Summary ---
Author Organization [facility] Address [address] [place] [address] Care Team Providers Care Booking Manager Name Role Phone Angelica Guerra MD Primary Care Provider Unava ilable Angelica Guerra MD Unavailable Unavailable Stacie Easton PA-C Unavailable Mahesh Acevedo NP Unavailable [phone] [facility], Pcp Primary Care Provider Unavailabl e Encounter Details Date Type Department Care Team Description 07/05/2019 Orders Only Medical Records [address] [place] [address] Oziel Sanchez MD [address] [place] [address] Social History Tobacco Use Types Packs/Day Years [...] Name Priority Date/Time Associated Diagnosis Comments OUTSIDE PATHOLOGY Routine 06/28/2019 documented in this encounter Results * OUTSIDE PATHOLOGY (06/28/2019) Oziel Sanchez MD OUTSIDE LAB documented in this encounter Visit Diagnoses Not on filedocumented in this encounter Care Teams Booking Manager Relationship Specialty Start Date End Date Angelica Guerra MD PCP - General Internal Medicine 03/02/17 08/01/21 [facility], Pcp PCP - General Internal Medicine 08/02/21 Angelica Guerra MD 02/10/17 Stacie Easton PA-C Specialist Cardiology 12/24/20 Mahesh Acevedo NP Specialist Cardiology 12/24/20 documented as of this encounter
--- OUTSIDE RECORDS SUMMARY | 2024-09-25 10:20 | XMS_ITS | Encounter Summary ---
[facility] Organization [facility] Address [address] [place] [address] Care Team Providers Care Cereal Maker Name Role Phone Angelica Guerra MD Primary Care Provider Unava ilable Lucia Montes Primary Care Provider Unavailab le Angelica Guerra MD Primary Care Provider Unava ilable Angelica Guerra MD Unavailable Unavailable Angelica Guerra MD Unavailable Unavailable Stacie Easton PA-C Unavailable [facility] NP Unavailable [phone] [facility], Pcp Primary Care Provider [facility] e Encounter Details Date Type Department Care Team Description 12/27/2016 Self Defense Instructor Report Medical Records [address] [place] [address] Zeina Renee [address] [place] [address] Social History Tobacco Use Types Packs/Day Years [...] on filedocumented in this encounter Care Teams Cereal Maker Relationship Specialty Start Date End Date Angelica Guerra MD PCP - General 06/25/15 02/09/17 Lucia Montes PCP - General Internal Medicine 02/10/17 03/01/17 Angelica Guerra MD PCP - General Internal Medicine 03/02/17 08/01/21 [facility], Pcp PCP - General Internal Medicine 08/02/21 Angelica Guerra MD 06/25/15 02/09/17 Angelica Guerra MD 02/10/17 Stacie Easton PA-C Specialist Cardiology 12/24/20 Mahesh Acevedo NP Specialist Cardiology 12/24/20 documented as of this encounter
--- OUTSIDE RECORDS SUMMARY | 2024-09-25 10:20 | XMS_ITS | Encounter Summary ---
Author Organization [employer] Address [address] [facility] 7t [place] [address] Care Team Providers Care Application Systems Administrator Name Role Phone Angela Luz MD Primary Care Provide r Ninfa Dietrich PharmD Unavailable [phone] Reason for Visit * Reason Comments Med Refill Encounter Details Date Type Department Care Team (Late st Contact Info) Description 07/31/2024 Refill [facility] [address] [place], [place] [phone] Angela Luz MD [address] [place], [place] [phone] Other chronic pain Social History Tobacco Use [...] 10:00 AM EDT Clinical Support [facility] [address] [place] [address] Nazia Martins RN 10/21/2024 10:00 AM EDT Medication Management [address] [address] Ninfa Dietrich, PharmD [address] [place] [address] 10/28/2024 9:00 AM EDT Office Visit [facility] [address] [place] [address] Angela Luz MD [address] [place] [address] documented as of this encounter Goals Goal Patient Goal Type Associated Problems Recent Progress Patient-Stated? Author Blood Pressure < 140/90 Blood Pressure 120/44(2024 10:03 AM EDT) Ady Chan Hemoglobin A1c < 8 Result Component 8.5( 10:01 AM EDT) No Ady Araujo Note: Comorbidities: CHF, CKD, cirrhosis documented as of this encounter Visit Diagnoses Diagnosis Other chronic pain documented in this encounter Care Teams Application Systems Administrator Relationship Specialty Start Date End Date Angela Luz MD [address] [place] [address] PCP - General Family Medicine 10/27/20 Ninfa Dietrich PharmD [address] [place] [address] Pharmacist Internal Medicine 11/10/23 [place] 12/20/23 documented as of this encounter
--- OUTSIDE RECORDS SUMMARY | 2024-09-25 10:20 | XMS_ITS | Encounter Summary ---
Author Organization [facility] Address [address] [place] [address] Care Team Providers Care Development Mgr Name Role Phone Angelica Guerra MD Primary Care Provider Unava ilable Angelica Guerra MD Unavailable Unavailable Stacie Easton PA-C Unavailable Mahesh Acevedo NP Unavailable [phone] [facility], Pcp Primary Care Provider Unavailabl e Encounter Details Date Type Department Care Team Description 05/23/2019 [facility] Medical Records [address] [place] [address] Abstract, Provider Social History Tobacco Use Types [...] on filedocumented in this encounter Care Teams Development Mgr Relationship Specialty Start Date End Date Angelica Guerra MD PCP - General Internal Medicine 03/02/17 08/01/21 [facility], Pcp PCP - General Internal Medicine 08/02/21 Angelica Guerra MD 02/10/17 Stacie Easton PA-C Specialist Cardiology 8/5/21 Mahesh Acevedo NP Specialist Cardiology 12/24/20 documented as of this encounter
--- OUTSIDE RECORDS SUMMARY | 2024-09-25 10:20 | XMS_ITS | Encounter Summary ---
Author Organization [facility] Address [address] [place] [address] Care Team Providers Care Physical Sciences Instructor Name Role Phone Angelica Guerra MD Primary Care Provider Unava ilable Lucia Montes Primary Care Provider Unavailab le Angelica Guerra MD Primary Care Provider Unava ilable Angelica Guerra MD Unavailable Unavailable Angelica Guerra MD Unavailable Unavailable Stacie Easton PA-C Unavailable [facility] NP Unavailable [phone] [facility], Pcp Primary Care Provider [facility] e Encounter Details Date Type Department Care Team Description 07/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 Medical Records [address] [place] [address] Abstract, Provider Social History Tobacco Use Types [...] on filedocumented in this encounter Care Teams Physical Sciences Instructor Relationship Specialty Start Date End Date Angelica Guerra MD PCP - General 06/25/15 02/09/17 Lucia Montes PCP - General Internal Medicine 02/10/17 03/01/17 Angelica Guerra MD PCP - General Internal Medicine 03/02/17 08/01/21 [facility], Pcp PCP - General Internal Medicine 08/02/21 Angelica Guerra MD 06/25/15 02/09/17 Angelica Guerra MD 02/10/17 Stacie Easton PA-C Specialist Cardiology 12/24/20 Mahesh Acevedo NP Specialist Cardiology 12/24/20 documented as of this encounter
--- OUTSIDE RECORDS SUMMARY | 2024-09-25 10:20 | XMS_ITS | Encounter Summary ---
Author Organization [facility] Address [address] [place] [address] Care Team Providers Care Branding Specialist Name Role Phone Angelica Guerra MD Primary Care Provider Unava ilable Lucia Montes Primary Care Provider Unavailab le Angelica Guerra MD Primary Care Provider Unava ilable Angelica Guerra MD Unavailable Unavailable Angelica Guerra MD Unavailable Unavailable Stacie Easton PA-C Unavailable [facility] NP Unavailable [phone] [facility], Pcp Primary Care Provider [facility] e Encounter Details Date Type Department Care Team Description 01/12/2017 [facility] Controlled Substance Contract Medical Records [address] [place] [address] Abstract, Provider Social History Tobacco Use Types [...] on filedocumented in this encounter Care Teams Branding Specialist Relationship Specialty Start Date End Date [...]
--- OUTSIDE RECORDS SUMMARY | 2024-09-25 10:20 | XMS_ITS | Encounter Summary ---
Author Organization [employer] Address 75 [facility] 7t [place] [address] Care Team Providers Care Supervisor Anodizing Name Role Phone Angela Luz MD Primary Care Provide r Ninfa Dietrich PharmD Unavailable Reason for Visit * Reason Comments Med Refill Encounter Details Date Type Department Care Team ([facility] Contact Info) Description 06/30/2022 Refill [facility]S [address] [place], [place] [phone] Balwinder Kumar MD [address] [place], [place] [phone] Social History Tobacco Use Types Packs/Day Years [...] Upcoming Encounters Date Type Department Care Team ([facility] Contact Info) Description 10/17/2024 10:00 AM EDT Clinical Support [address] [address] Nazia Martins, DIAMOND 10/21/2024 10:00 AM EDT Medication Management [address] [address] Ninfa Dietrich PharmD [address] [place] [address] 10/28/2024 9:00 AM EDT Office Visit [address] [address] Angela Luz MD [address] [place] [address] documented as of this encounter Visit Diagnoses Not on filedocumented in this encounter Care Teams Supervisor Anodizing Relationship Specialty Start Date End Date Angela Luz MD [address] [place] [address] PCP - General Family Medicine 10/27/20 Ninfa Dietrich PharmD [address] [place] [address] Pharmacist Internal Medicine 11/10/23 [employer] 12/20/23 documented as of this encounter
--- OUTSIDE RECORDS SUMMARY | 2024-09-25 10:20 | XMS_ITS | Clinical Summary ---
Author Organization [facility] Address [address] [place] [address] Care Team Providers Care Tubular Splitting Machine Tender Name Role Phone Angelica Guerra MD Unavailable Unavailable Stacie Easton PA-C Unavailable Mahesh Acevedo NP Unavailable [phone] [facility], Pcp Primary Care Provider Unavailabl e [...] MINI PEN NEEDLE) 31G X 5 MM [facility], [facility]1983c Use to inject insulin 4 times daily. [...] just unsure what to do Educational Resources [employer] (www.diabetes.org) Centers for Disease Control [...] nodule 06/11/2012 Overview: 01/[address] in [place]. Last CT (abd) 06/02/12 - 5x7 pulm [...] S/p LESLEE-BSO. Sees dr. Anival Tuttle at [facility] Production Assembly Supervisor Immunizations Name Administration Dates Next Due COVID-19 [...] HEPATITIS C SCREENING Completed 12/25/2012 Care Teams Tubular Splitting Machine Tender Relationship Specialty Start Date End Date [facility], Pcp PCP - General Internal Medicine 08/02/21 Angelica Guerra MD 02/10/17 Stacie Easton PA-C Specialist Cardiology 12/24/20 Mahesh Acevedo NP Specialist Cardiology 12/24/20
--- OUTSIDE RECORDS SUMMARY | 2024-09-25 10:20 | XMS_ITS | Encounter Summary ---
Author Organization [employer] Address 75 [facility] 7t [place] [address] Care Team Providers Care Bundle Packer Name Role Phone Angela Luz MD Primary Care Provide r Ninfa Dietrich PharmD Unavailable Reason for Visit * Reason Onset Date Comments Med Refill 11/11/2022 Encounter Details Date Type Department Care Team (Late st Contact Info) Description 11/11/2022 Refill [facility] MED[facility] [address] [place], [place] [phone] Angela Luz MD [address] [place], [place] [phone] Other chronic pain Social History Tobacco Use [...] Description 10/17/2024 10:00 AM EDT Clinical Support [address] [address] Nazia Martins, RN 10/21/2024 10:00 AM EDT Medication Management [address] [address] Ninfa Dietrich PharmD [address] [place] [address] 10/28/2024 9:00 AM EDT Office Visit [address] [address] Angela Luz MD [address] [place] [address] documented as of this encounter Visit Diagnoses Diagnosis Other chronic pain documented in this encounter Care Teams Bundle Packer Relationship Specialty Start Date End Date Angela Luz MD [address] [place] [address] PCP - General Family Medicine 10/27/20 Ninfa Dietrich PharmD [address] [place] [address] Pharmacist Internal Medicine 11/10/23 [facility] 12/20/23 documented as of this encounter
--- OUTSIDE RECORDS SUMMARY | 2024-09-25 10:20 | XMS_ITS | Encounter Summary ---
Author Organization [facility] Address [address] [place] [address] Care Team Providers Care Draughtsman Name Role Phone Angelica Guerra MD Primary Care Provider Unava ilable Angelica Guerra MD Primary Care Provider Unava ilable Lucia Montes Primary Care Provider Unavailab le Angelica Guerra MD Primary Care Provider Unava ilable Angelica Guerra MD Unavailable Unavailable Angelica Guerra MD Unavailable Unavailable Stacie Easton PA-C Unavailable [facility] NP Unavailable [phone] [facility], Pcp Primary Care Provider Unavailabl e Encounter Details Date Type Department Care Team Description 02/25/2011 Hospital Medical Records [address] [place] [address] Adam Adair MD Social History Tobacco Use Types Packs/Day [...] on filedocumented in this encounter Care Teams Draughtsman Relationship Specialty Start Date End Date Angelica Guerra MD PCP - General 02/10/11 06/24/15 Angelica Guerra MD PCP - General 06/25/15 02/09/17 Lucia Montes PCP - General Internal Medicine 02/10/17 03/01/17 Angelica Guerra MD PCP - General Internal Medicine 03/02/17 08/01/21 [facility], [facility] PCP - General Internal Medicine 08/02/21 Angelica Guerra MD 06/25/15 02/09/17 Angelica Guerra MD 02/10/17 Stacie Easton PA-C Specialist Cardiology 12/24/20 Mahesh Acevedo NP Specialist Cardiology 12/24/20 documented as of this encounter
--- OUTSIDE RECORDS SUMMARY | 2024-09-25 10:20 | XMS_ITS | Encounter Summary ---
Author Organization [facility] Address [address] [place] [address] Care Team Providers Care Welding Machine Operator Helper Arc Name Role Phone Angelica Guerra MD Primary Care Provider Unava ilable Angelica Guerra MD Unavailable Unavailable Stacie Easton PA-C Unavailable Mahesh Acevedo NP Unavailable [phone] [facility], Pcp Primary Care Provider Unavailabl e Encounter Details Date Type Department Care Team Description 05/07/2019 Collection Systems Technician Report Medical Records [address] [place] [address] Zeina Renee [address] [place] [address] Social History Tobacco Use Types Packs/Day Years [...] on filedocumented in this encounter Care Teams Welding Machine Operator Helper Arc Relationship Specialty Start Date End Date Angelica Guerra MD PCP - General Internal Medicine 03/02/17 08/01/21 [facility], Pcp PCP - General Internal Medicine 08/02/21 Angelica Guerra MD 02/10/17 Stacie Easton PA-C Specialist Cardiology 12/24/20 Mahesh Acevedo NP Specialist Cardiology 12/24/20 documented as of this encounter
--- OUTSIDE RECORDS SUMMARY | 2024-09-25 10:20 | XMS_ITS | Encounter Summary ---
Author Organization [employer] Address [address] [facility] 7t [place] [address] Care Team Providers Care Archivist Military History Name Role Phone Angela Luz MD Primary Care Provide r Ninfa Dietrich PharmD Unavailable [phone] Reason for Visit * Reason Comments Med Refill Encounter Details Date Type Department Care Team (Late st Contact Info) Description 05/30/2023 Refill [facility] [address] [place], [place] [phone] Angela Cornell MD [address] [place], [place] [phone] Type 2 diabetes mellitus with stage 3 [...] Description 10/17/2024 10:00 AM EDT Clinical Support [address] [address] Nazia Martins RN 10/21/2024 10:00 AM EDT Medication Management [address] [address] Ninfa Dietrich, LauraD [address] [place] [address] 10/28/2024 9:00 AM EDT Office Visit [address] [address] Angela Luz MD [address] [place] [address] documented as of this encounter Visit Diagnoses Diagnosis Type 2 diabetes mellitus with stage 3 chronic kidney disease, with long-term current use of insulin, unspecified whether stage 3a or 3b CKD (CMS/HCC) documented in this encounter Care Teams Archivist Military History Relationship Specialty Start Date End Date Angela Luz MD [address] [place] [address] PCP - General Family Medicine 10/27/20 Ninfa Dietrich, LauraD [address] [place] [address] Pharmacist Internal Medicine 11/10/23 [employer] 12/20/23 documented as of this encounter
--- OUTSIDE RECORDS SUMMARY | 2024-09-25 10:20 | XMS_ITS | Encounter Summary ---
Author Organization [employer] Address [address] [facility] 7t [place] [address] Care Team Providers Care Die Cast Supervisor Name Role Phone Angela Luz MD Primary Care Provide r Ninfa Dietrich PharmD Unavailable [phone] Reason for Visit * Reason Comments Med Refill Encounter Details Date Type Department Care Team (Late st Contact Info) Description 10/26/2022 Refill [facility] [address] [place], [place] [phone] Angela Luz MD [address] [place], [place] [phone] Type 2 diabetes mellitus with other specified complication, unspecified whether composing room machinist apprentice insulin use ([facility]) Social History Tobacco Use Types [...] Description 10/17/2024 10:00 AM EDT Clinical Support [address] [address] Nazia Martins, RN 10/21/2024 10:00 AM EDT Medication Management [address] [address] Ninfa Dietrich PharmD [address] [place] [address] 10/28/2024 9:00 AM EDT Office Visit [address] [address] Angela Luz MD [address] [place] [address] documented as of this encounter Visit Diagnoses Diagnosis Type 2 diabetes mellitus with other specified complication, unspecified whether composing room machinist apprentice insulin use ([facility]) documented in this encounter Care Teams Die Cast Supervisor Relationship Specialty Start Date End Date Angela Luz MD [address] [place] [address] PCP - General Family Medicine 10/27/20 Ninfa Dietrich PharmD [address] [place] [address] Pharmacist Internal Medicine 11/10/23 [employer] 12/20/23 documented as of this encounter
--- OUTSIDE RECORDS SUMMARY | 2024-09-25 10:20 | XMS_ITS | Encounter Summary ---
Author Organization [facility] Address [address] [place] [address] Care Team Providers Care Golf Cart Mechanic Name Role Phone Angelica Guerra MD Primary Care Provider Unava ilable Angelica Guerra MD Primary Care Provider Unava ilable Lucia Montes Primary Care Provider Unavailab le Angelica Guerra MD Primary Care Provider Unava ilable Angelica Guerra MD Unavailable Unavailable Angelica Guerra MD Unavailable Unavailable Stacie Easton PA-C Unavailable [facility] Unavailable [phone] [facility], Pcp Primary Care Provider Unavailabl e Encounter Details Date Type Department Care Team Description 06/08/2011 Eye Financial Advocate Report Medical Records [address] [place] [address] Gee Oneal MD Social History Tobacco Use [...] on filedocumented in this encounter Care Teams Golf Cart Mechanic Relationship Specialty Start Date End Date Angelica Guerra MD PCP - General 02/10/11 06/24/15 Angelica Guerra MD PCP - General 06/25/15 02/09/17 Lucia Montes PCP - General Internal Medicine 02/10/17 03/01/17 Angelica Guerra MD PCP - General Internal Medicine 03/02/17 08/01/21 [facility], [facility] PCP - General Internal Medicine 08/02/21 Angelica Guerra MD 06/25/15 02/09/17 Angelica Guerra MD 02/10/17 Stacie Easton PA-C Specialist Cardiology 12/24/20 Mahesh Acevedo NP Specialist Cardiology 12/24/20 documented as of this encounter
--- OUTSIDE RECORDS SUMMARY | 2024-09-25 10:20 | XMS_ITS | Encounter Summary ---
Author Organization [facility] Address [address] [place] [address] Care Team Providers Care Professor Of Exercise Science Name Role Phone Angelica Guerra MD Primary Care Provider Unava ilable Lucia Montes Primary Care Provider Unavailab Angelica Jeong MD Primary Care Provider Unava ilable Angelica Guerra MD Unavailable Unavailable Angelica Guerra MD Unavailable Unavailable Stacie Easton PA-C Unavailable [facility] Unavailable [phone] [facility], Pcp Primary Care Provider Unavailabl e Reason for Visit * Reason Onset Date Comments Faxed Refill 12/01/2016 Encounter Details Date Type Department Care Team Description 12/01/2016 Refill Adult Medicine [address] [address] Angelica Guerra MD Faxed Refill Social History [...] out Telephone Information: Pt nor dtr speaks maltese Sienna got on the phone Asked if someone could call us tomorrow, who speaks Polish * Telephone Encounter - Renae Dominguez - [...] YES Patients current insurance carrier is: Payor: [employer] / Plan: [employer] $0 FRANCISCO [id number] / Product Type: MEDICAID [id number] documented in this encounter Plan of Treatment Not on file documented as of this encounter Visit Diagnoses Diagnosis Essential hypertension, benign Atypical chest pain Other chest pain documented in this encounter Care Teams Professor Of Exercise Science Relationship Specialty Start Date End Date Angelica [...]
--- OUTSIDE RECORDS SUMMARY | 2024-09-25 10:20 | XMS_ITS | Encounter Summary ---
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
--- OUTSIDE RECORDS SUMMARY | 2024-09-25 10:20 | XMS_ITS | Encounter Summary ---
Author Organization [employer] Address [address] [facility] 7t [place] [address] Care Team Providers Care Director Of Critical Care Name Role Phone Angela Luz MD Primary Care Provide r Ninfa Dietrich PharmD Unavailable Reason for Visit * Reason Onset Date Comments Med Refill 04/03/2023 Encounter Details Date Type Department Care Team (Late st Contact Info) Description 04/03/2023 Refill [facility] MEDICINE [address] [place], [place] [phone] Angela Luz MD [address] [place], [place] [phone] Type 2 diabetes mellitus with other specified complication, unspecified whether mcfp insulin use ([facility]) Social History Tobacco Use [...] Description 10/17/2024 10:00 AM EDT Clinical Support [address] [address] Nazia Martins RN 10/21/2024 10:00 AM EDT Medication Management [address] [address] Ninfa Dietrich PharmD [address] [place] [address] 10/28/2024 9:00 AM EDT Office Visit [address] [address] Angela Luz MD [address] [place] [address] documented as of this encounter Visit Diagnoses Diagnosis Type 2 diabetes mellitus with other specified complication, unspecified whether mcfp insulin use ([facility]) documented in this encounter Care Teams Director Of Critical Care Relationship Specialty Start Date End Date Angela Luz MD [address] [place] [address] PCP - General Family Medicine 10/27/20 Ninfa Dietrich, PharmD [address] [place] [address] Pharmacist Internal Medicine 11/10/23 [employer] 12/20/23 documented as of this encounter
--- OUTSIDE RECORDS SUMMARY | 2024-09-25 10:20 | XMS_ITS | Encounter Summary ---
Author Organization [facility] Address [address] [place] [address] Care Team Providers Care Guard Driver Name Role Phone Angelica Guerra MD Primary Care Provider Unava ilable Angelica Guerra MD Unavailable Unavailable Stacie Easton PA-C Unavailable Mahesh Acevedo NP Unavailable [phone] [facility], Pcp Primary Care Provider Unavailabl e Encounter Details Date Type Department Care Team Description 03/12/2019 Clinical Social Work Aide Report Medical Records [address] [place] [address] Abstract, Provider Social History Tobacco Use Types [...] on filedocumented in this encounter Care Teams Guard Driver Relationship Specialty Start Date End Date Angelica Guerra MD PCP - General Internal Medicine 03/02/17 08/01/21 [facility], Pcp PCP - General Internal Medicine 08/02/21 Angelica Guerra MD 02/10/17 Stacie Easton PA-C Specialist Cardiology 12/24/20 Mahesh Acevedo NP Specialist Cardiology 12/24/20 documented as of this encounter
--- OUTSIDE RECORDS SUMMARY | 2024-09-25 10:20 | XMS_ITS | Encounter Summary ---
Author Organization [employer] Address [address] 7t [place] [address] Care Team Providers Care Finance Vice President Name Role Phone Angela Luz MD Primary Care Provide r Ninfa Dietrich PharmD Unavailable [phone] Reason for Visit * Reason Comments Med Refill Encounter Details Date Type Department Care Team ([facility] st Contact Info) Description 03/21/2023 Refill [facility] [address] [place], [place] [phone] Angela Luz MD [address] [place], [place] [phone] Other chronic pain Social History Tobacco Use [...] Description 10/17/2024 10:00 AM EDT Clinical Support [address] [address] Nazia Martins RN 10/21/2024 10:00 AM EDT Medication Management [address] [address] Ninfa Dietrich PharmD [address] [place] [address] 10/28/2024 9:00 AM EDT Office Visit [address] [address] Angela Luz MD [address] [place] [address] documented as of this encounter Visit Diagnoses Diagnosis Other chronic pain documented in this encounter Care Teams Finance Vice President Relationship Specialty Start Date End Date Angela Luz MD [address] [place] [address] PCP - General Family Medicine 10/27/20 Ninfa Dietrich PharmD [address] [place] [address] Pharmacist Internal Medicine 11/10/23 [employer] 12/20/23 documented as of this encounter
--- OUTSIDE RECORDS SUMMARY | 2024-09-25 10:20 | XMS_ITS | Encounter Summary ---
Author Organization [employer] Address [address] [facility] [address] 7t [place] [address] Care Team Providers Care Plumber Apprentice Name Role Phone Agnela Luz MD Primary Care Provide r Ninfa Dietrich PharmD Unavailable Reason for Visit * Reason Comments Med Refill Encounter Details Date Type Department Care Team (Late st Contact Info) Description 03/24/2023 Refill [facility] 230 [place], [place] [phone] Angela Luz MD 230 [place], [place] [phone] Cervical spondylosis with radiculopathy Social History Tobacco [...] Description 10/17/2024 10:00 AM EDT Clinical Support [address] [address] Nazia Martins RN 10/21/2024 10:00 AM EDT Medication Management [address] [address] Ninfa Dietrich PharmD [address] [place] [address] 10/28/2024 9:00 AM EDT Office Visit [address] [address] Angela Luz MD [address] [place] [address] documented as of this encounter Visit Diagnoses Diagnosis Cervical spondylosis with radiculopathy Cervical spondylosis with myelopathy documented in this encounter Care Teams Plumber Apprentice Relationship Specialty Start Date End Date Angela Luz MD [address] [place] [address] PCP - General Family Medicine 10/27/20 Ninfa Dietrich PharmD [address] [place] [address] Pharmacist Internal Medicine 11/10/23 [employer] 12/20/23 documented as of this encounter
--- OUTSIDE RECORDS SUMMARY | 2024-09-25 10:20 | XMS_ITS | Encounter Summary ---
Author Organization [employer] Address [address] [facility] 7t [place] [address] Care Team Providers Care Machinist/Machine Builder Name Role Phone Angela Luz MD Primary Care Provide r Ninfa Dietrich PharmD Unavailable [phone] Reason for Visit * Reason Onset Date Comments Shade 03/28/2023 Encounter Details Date Type Department Care Team ([facility] Contact Info) Description 03/28/2023 Telephone [facility] 230 [place], [place] [phone] Percy Dennison, LÓPEZ [address] [place], [place] [phone] Shade Social History Tobacco Use Types Packs/Day [...] from [employer] looking for shade of denture. [phone]. Pls contact lab documented in this encounter Plan of Treatment Upcoming Encounters Date Type Department Care Team (Late st Contact Info) Description 10/17/2024 10:00 AM EDT Clinical Support [facility] [address] [place] [address] Nazia Martins RN 10/21/2024 10:00 AM EDT Medication Management [facility] [address] [place] [address] Ninfa Dietrich, PharmD [address] [place] [address] 10/28/2024 9:00 AM EDT Office Visit [facility] [address] [place] [address] Angela Luz MD [address] [place] [address] documented as of this encounter Visit Diagnoses Not on filedocumented in this encounter Care Teams Machinist/Machine Builder Relationship Specialty Start Date End Date Angela Luz MD [address] [place] [address] PCP - General Family Medicine 10/27/20 Ninfa Dietrich, Shadia [address] [place] [address] Pharmacist Internal Medicine 11/10/23 [employer] 12/20/23 documented as of this encounter
--- OUTSIDE RECORDS SUMMARY | 2024-09-25 10:20 | XMS_ITS | Encounter Summary ---
Author Organization [facility] Address [address] [place] [address] Care Team Providers Care Lead Software Qa Engineer Name Role Phone Angelica Guerra MD Primary Care Provider Unava ilable Angelica Guerra MD Unavailable Unavailable Stacie Easton PA-C Unavailable Mahesh Acevedo NP Unavailable [phone] [facility], Pcp Primary Care Provider Unavailabl e Encounter Details Date Type Department Care Team Description 04/08/2019 Shop Laborer Report Medical Records [address] [place] [address] Yin Rebolledo [address] [place] [address] Social History Tobacco Use Types Packs/Day Years [...] filedocumented in this encounter Care Teams Lead Software Qa Engineer Relationship Specialty Start Date End Date Angelica Guerra MD PCP - General Internal Medicine 03/02/17 08/01/21 [facility], Pcp PCP - General Internal Medicine 08/02/21 Angelica Guerra MD 02/10/17 Stacie Easton PA-C Specialist Cardiology 12/24/20 Mahesh Acevedo NP Specialist Cardiology 12/24/20 documented as of this encounter
--- OUTSIDE RECORDS SUMMARY | 2024-09-25 10:20 | XMS_ITS | Encounter Summary ---
Author Organization [facility] Address [address] [place] [address] Care Team Providers Care Assistant General Manager Name Role Phone Angelica Guerra MD Primary Care Provider Unava ilable Lucia Montes Primary Care Provider Unavailab le Angelica Guerra MD Primary Care Provider Unava ilable Angelica Guerra MD Unavailable Unavailable Angelica Guerra MD Unavailable Unavailable Stacie Easton PA-C Unavailable [facility] NP Unavailable [phone] [facility], Pcp Primary Care Provider [facility] Encounter Details Date Type Department Care Team Description 01/12/2017 [facility] Medical Records [address] [place] [address] Abstract, Provider Social History Tobacco Use Types [...] filedocumented in this encounter Care Teams Assistant General Manager Relationship Specialty Start Date End Date Angelica Guerra MD PCP - General 06/25/15 02/09/17 Lucia Montes PCP - General Internal Medicine 02/10/17 03/01/17 Angelica Guerra MD PCP - General Internal Medicine 03/02/17 08/01/21 [facility], Pcp PCP - General Internal Medicine 08/02/21 Angelica Guerra MD 06/25/15 02/09/17 Angelica Guerra MD 02/10/17 Stacie Easton PA-C Specialist Cardiology 12/24/20 Mahesh Acevedo NP Specialist Cardiology 12/24/20 documented as of this encounter
--- OUTSIDE RECORDS SUMMARY | 2024-09-25 10:20 | XMS_ITS | Encounter Summary ---
Author Organization [facility] Address [address] [place] [address] Care Team Providers Care Whizzer Operator Name Role Phone Angelica Guerra MD Primary Care Provider Unava ilable Angelica Guerra MD Primary Care Provider Unava ilable Lucia Montes Primary Care Provider Unavailab le Angelica Guerra MD Primary Care Provider Unava ilable Angelica Guerra MD Unavailable Unavailable Angelica Guerra MD Unavailable Unavailable Stacie Easton PA-C Unavailable [facility] NP Unavailable [phone] [facility], Pcp Primary Care Provider Unavailabl e Encounter Details Date Type Department Care Team Description 04/10/2013 Controlled Substance Plan Medical Records [address] [place] [address] Abstract, Provider Social History Tobacco Use Types [...] on filedocumented in this encounter Care Teams Whizzer Operator Relationship Specialty Start Date End Date Angelica Guerra MD PCP - General 02/10/11 06/24/15 Angelica Guerra MD PCP - General 06/25/15 02/09/17 Lucia Montes PCP - General Internal Medicine 02/10/17 03/01/17 Angelica Guerra MD PCP - General Internal Medicine 03/02/17 08/01/21 [facility], [facility] PCP - General Internal Medicine 08/02/21 Angelica Guerra MD 06/25/15 02/09/17 Angelica Guerra MD 02/10/17 Stacie Easton PA-C Specialist Cardiology 12/24/20 Mahesh Acevedo NP Specialist Cardiology 12/24/20 documented as of this encounter
--- OUTSIDE RECORDS SUMMARY | 2024-09-25 10:20 | XMS_ITS | Encounter Summary ---
Author Organization [employer] [facility] Address [address] [place] [address] Care Team Providers Care Toy Electric Train Repairer Name Role Phone Angelica Guerra MD Primary Care Provider Unava ilable Angelica Guerra MD Unavailable Unavailable Stacie Easton PA-C Unavailable Mahesh Acevedo NP Unavailable [phone] [facility], Pcp Primary Care Provider Unavailabl e Encounter Details Date Type Department Care Team Description 07/01/2019 Orders Only Medical Records [address] [place] [address] Oziel Sanchez MD [address] [place] [address] Social History Tobacco Use Types Packs/Day Years [...] Date/Time Associated Diagnosis Comments OUTSIDE MAMMO Routine 06/28/2019 documented in this encounter Results * OUTSIDE MAMMO (06/28/2019) Oziel Sanchez MD RADIOLOGY documented in this encounter Visit Diagnoses Not on filedocumented in this encounter Care Teams Toy Electric Train Repairer Relationship Specialty Start Date End Date Angelica Guerra MD PCP - General Internal Medicine 03/02/17 08/01/21 [facility], Pcp PCP - General Internal Medicine 08/02/21 Angelica Guerra MD 02/10/17 Stacie Easton PA-C Specialist Cardiology 12/24/20 Maehsh Acevedo NP Specialist Cardiology 12/24/20 documented as of this encounter
--- OUTSIDE RECORDS SUMMARY | 2024-09-25 10:20 | XMS_ITS | Encounter Summary ---
Author Organization [facility] Address [address] [place] [address] Care Team Providers Care Acid Changer Name Role Phone Angelica Guerra MD Primary Care Provider Unava ilable Angelica Guerra MD Unavailable Unavailable Stacie Easton PA-C Unavailable Mahesh Acevedo NP Unavailable [phone] [facility], Pcp Primary Care Provider Unavailabl e Encounter Details Date Type Department Care Team Description 03/12/2019 Old Medical Records Medical Records [address] [place] [address] Abstract, Provider Social History Tobacco Use Types [...] on filedocumented in this encounter Care Teams Acid Changer Relationship Specialty Start Date End Date Angelica Guerra MD PCP - General Internal Medicine 03/02/17 08/01/21 [facility], Pcp PCP - General Internal Medicine 08/02/21 Angelica Guerra MD 02/10/17 Stacie Easton PA-C Specialist Cardiology 8/5/21 Mahesh Acevedo NP Specialist Cardiology 12/24/20 documented as of this encounter
--- OUTSIDE RECORDS SUMMARY | 2024-09-25 10:20 | XMS_ITS | Encounter Summary ---
Author Organization [employer] Address [address] [facility] 7t [place] [address] Care Team Providers Care Cardiac Cath Lab Radiology Technologist Name Role Phone Angela Luz MD Primary Care Provide r Ninfa Dietrich PharmD Unavailable Reason for Visit * Reason Comments Med Refill Encounter Details Date Type Department Care Team (Late Contact Info) Description 12/05/2022 Refill [facility] [address] [place], [place] [phone] Gemini Lagunas MD [address] [place] [address] [phone] Type 2 diabetes mellitus with unspecified complications [...] 10:00 AM EDT Clinical Support [facility] [address] [place], [place] [phone] Nazia Martins RN 10/21/2024 10:00 AM EDT Medication Management [facility] [address] [place] [address] Ninfa Dietrich PharmD [address] [place] [address] 10/28/2024 9:00 AM EDT Office Visit [facility] [address] [place] [address] Angela Luz MD [address] [place] [address] [phone] documented as of this encounter Visit Diagnoses Diagnosis Type 2 diabetes mellitus with unspecified complications (CMS/HCC) documented in this encounter Care Teams Cardiac Cath Lab Radiology Technologist Relationship Specialty Start Date End Date Angela Luz MD [address] [place] [address] [phone] PCP - General Family Medicine 10/27/20 Ninfa Dietrich, Shadia [address] [place] [address] [phone] Pharmacist Internal Medicine 11/10/23 [employer] 12/20/23 documented as of this encounter
--- OUTSIDE RECORDS SUMMARY | 2024-09-25 10:21 | XMS_ITS | Encounter Summary ---
Author Organization [facility] Address [address] [place] [address] Care Team Providers Care Puller Over Name Role Phone Angelica Guerra MD Primary Care Provider Unava ilable Lucia Montes Primary Care Provider Unavailab le Angelica Guerra MD Primary Care Provider Unava ilable Angelica Guerra MD Unavailable Unavailable Angelica Guerra MD Unavailable Unavailable Stacie Easton PA-C Unavailable [facility] NP Unavailable [phone] [facility], Pcp Primary Care Provider Unavailformerly [facility] e Encounter Details Date Type Department Care Team Description 06/07/2016 Steam Gigger Report Medical Records [address] [place] [address] Zeina Renee [address] [place] [address] Social History Tobacco Use Types Packs/Day Years [...] on filedocumented in this encounter Care Teams Puller Over Relationship Specialty Start Date End Date Angelica Guerra MD PCP - General 06/25/15 02/09/17 Lucia Montes PCP - General Internal Medicine 02/10/17 03/01/17 Angelica Guerra MD PCP - General Internal Medicine 03/02/17 08/01/21 [facility], Pcp PCP - General Internal Medicine 08/02/21 Angelica Guerra MD 06/25/15 02/09/17 Angelica Guerra MD 02/10/17 Stacie Easton PA-C Specialist Cardiology 12/24/20 Mahesh Acevedo NP Specialist Cardiology 12/24/20 documented as of this encounter
--- OUTSIDE RECORDS SUMMARY | 2024-09-25 10:21 | XMS_ITS | Encounter Summary ---
Author [facility] Address [address] [place] [address] Care Team Providers Care Firer Locomotive Crane Name Role Phone Angelica Guerra MD Primary Care Provider Unava ilable Angelica Guerra MD Primary Care Provider Unava ilable Lucia Montes Primary Care Provider Unavailab Angelica Jeong MD Primary Care Provider Unava ilable Angelica Guerra MD Unavailable Unavailable Angelica Guerra MD Unavailable Unavailable Stacie Easton PA-C Unavailable [facility] Unavailable [phone] [facility], Pcp Primary Care Provider Unavailabl e Encounter Details Date Type Department Care Team Description 08/01/2012 Telephone Cardiology - [place] [address] [place], [place] [phone] Stacie Easton PA-C [address] [place], [place] [phone] Social History Tobacco Use Types Packs/Day Years Used Date Smoking Tobacco: Never Smokeless Tobacco: Never Alcohol Use Standard Drinks/Week Comments No 0 (1 standard drink = 0.6 oz pur e alcohol) Sex Assigned at Date Recorded Not on file documented as of this encounter Miscellaneous Notes * Telephone Encounter - Stacie Easton PA-C - 08/01/2012 10:22 AM EDT Labs from [facility] 06/02 Hct as low as 26.5 on 1.17- 29.3 unclear if transfused, do not have [facility] notes, pt unsure- stat cbc drawn, will obtain rest portion of test and reschedule for pharmacological stressin near future. documented in this encounter Plan of Treatment Not on file documented as of this encounter Visit Diagnoses Not on filedocumented in this encounter Care Teams Firer Locomotive Crane Relationship Specialty Start Date End Date Angelica Guerra MD PCP - General 02/10/11 06/24/15 Angelica Guerra MD PCP - General 06/25/15 02/09/17 Lucia Montes PCP - General Internal Medicine 02/10/17 03/01/17 Angelica Guerra MD PCP - General Internal Medicine 03/02/17 08/01/21 [facility] PCP - General Internal Medicine 08/02/21 Angelica Guerra MD 06/25/15 02/09/17 Angelica Guerra MD 02/10/17 Stacie Easton PA-C Specialist Cardiology 12/24/20 Mahesh Acevedo NP Specialist Cardiology 12/24/20 documented as of this encounter
--- OUTSIDE RECORDS SUMMARY | 2024-09-25 10:21 | XMS_ITS | Encounter Summary ---
Author Organization [employer] Address [address] 7t [place] [address] Care Team Providers Care Patient Accounts Coordinator Name Role Phone Angela Luz MD Primary Care Provide r Ninfa Dietrich PharmD Unavailable [phone] Reason for Visit * Reason Onset Date Comments Med Refill 05/30/2023 Encounter Details Date Type Department Care Team (Late st Contact Info) Description 05/30/2023 Refill [facility] [address] [place], [place] [phone] Yunier Mohr MD [address] [place], [place] [phone] Cervical spondylosis with radiculopathy Social History Tobacco [...] Description 10/17/2024 10:00 AM EDT Clinical Support [address] [address] Nazia Martins RN 10/21/2024 10:00 AM EDT Medication Management [address] [address] Ninfa Dietrich PharmD [address] [place] [address] 10/28/2024 9:00 AM EDT Office Visit [address] [address] Angela Luz MD [address] [place] [address] documented as of this encounter Visit Diagnoses Diagnosis Cervical spondylosis with radiculopathy Cervical spondylosis with myelopathy documented in this encounter Care Teams Patient Accounts Coordinator Relationship Specialty Start Date End Date Angela Luz MD [address] [place] [address] PCP - General Family Medicine 10/27/20 Ninfa Dietrich, PharmD [address] [place] [address] Pharmacist Internal Medicine 11/10/23 Take the Interview 12/20/23 documented as of this encounter
--- OUTSIDE RECORDS SUMMARY | 2024-09-25 10:21 | XMS_ITS | Encounter Summary ---
Author Organization [employer] Address [address] [facility] 7t [place] [address] Care Team Providers Care Freelance Makeup Artist Name Role Phone Angela Luz MD Primary Care Provide r Ninfa Dietrich PharmD Unavailable [phone] Reason for Visit * Reason Onset Date Comments Med Refill 05/30/2023 Encounter Details Date Type Department Care Team (Late st Contact Info) Description 05/30/2023 Refill [facility] [address] [place], [place] [phone] Lashonda Alvarado MD [address] [place], [place] [phone] Constipation, unspecified constipation type Social History Tobacco [...] Description 10/17/2024 10:00 AM EDT Clinical Support [address] [address] Nazia Martins RN 10/21/2024 10:00 AM EDT Medication Management [address] [address] Ninfa Dietrich PharmD [address] [place] [address] 10/28/2024 9:00 AM EDT Office Visit [address] [address] Angela Luz MD [address] [place] [address] documented as of this encounter Visit Diagnoses Diagnosis Constipation, unspecified constipation type documented in this encounter Care Teams Freelance Makeup Artist Relationship Specialty Start Date End Date Angela Luz MD [address] [place] [address] PCP - General Family Medicine 10/27/20 Ninfa Dietrich PharmD [address] [place] [address] Pharmacist Internal Medicine 11/10/23 [employer] 12/20/23 documented as of this encounter
--- OUTSIDE RECORDS SUMMARY | 2024-09-25 10:21 | XMS_ITS | Encounter Summary ---
Author [facility] Address [address] [place] [address] Care Team Providers Care Overcoiler Name Role Phone Angelica Guerra MD Primary Care Provider Unava ilable Lucia Montes Primary Care Provider Unavailab le Angelica Guerra MD Primary Care Provider Unava ilable Angelica Guerra MD Unavailable Unavailable Angelica Guerra MD Unavailable Unavailable Stacie Easton PA-C Unavailable [facility] NP Unavailable [phone] Count Includes [facility], Pcp Primary Care Provider Unavailveterans health administration e Encounter Details Date Type Department Care Team Description 03/30/2016 [facility] Medical Records [address] [place] [address] Abstract, Provider Social History Tobacco Use Types [...] on filedocumented in this encounter Care Teams Overcoiler Relationship Specialty Start Date End Date Angelica Guerra MD PCP - General 06/25/15 02/09/17 Lucia Montes PCP - General Internal Medicine 02/10/17 03/01/17 Angelica Guerra MD PCP - General Internal Medicine 03/02/17 08/01/21 Count Includes [facility], Pcp PCP - General Internal Medicine 08/02/21 Angelica Guerra MD 06/25/15 02/09/17 Angelica Guerra MD 02/10/17 Stacie Easton PA-C Specialist Cardiology 12/24/20 Mahesh Acevedo NP Specialist Cardiology 12/24/20 documented as of this encounter
--- OUTSIDE RECORDS SUMMARY | 2024-09-25 10:21 | XMS_ITS | Encounter Summary ---
Author Organization [facility] Address [address] [place] [address] Care Team Providers Care Tanyard Worker Name Role Phone Angelica Guerra MD Primary Care Provider Unava ilable Lucia Montes Primary Care Provider Unavailab le Angelica Guerra MD Primary Care Provider Unava ilable Angelica Guerra MD Unavailable Unavailable Angelica Guerra MD Unavailable Unavailable Stacie Easton PA-C Unavailable [facility] NP Unavailable [phone] [facility], Pcp Primary Care Provider Unavailabl e Encounter Details Date Type Department Care Team Description 12/29/2015 [facility] Medical Records [address] [place] [address] Abstract, Provider Painful swallowing Social History Tobacco [...] unspecified documented in this encounter Care Teams Tanyard Worker Relationship Specialty Start Date End Date Angelica Guerra MD PCP - General 06/25/15 02/09/17 Lucia Montes PCP - General Internal Medicine 02/10/17 03/01/17 Angelica Guerra MD PCP - General Internal Medicine 03/02/17 08/01/21 [facility] PCP - General Internal Medicine 08/02/21 Angelica Guerra MD 06/25/15 02/09/17 Angelica Guerra MD 02/10/17 Stacie Easton PA-C Specialist Cardiology 12/24/20 Mahesh Acevedo NP Specialist Cardiology 12/24/20 documented as of this encounter
--- OUTSIDE RECORDS SUMMARY | 2024-09-25 10:21 | XMS_ITS | Encounter Summary ---
Author Organization [facility] Address [address] [place] [address] Care Team Providers Care Senior It Security Analyst Name Role Phone Angelica Guerra MD Primary Care Provider Unava ilable Angelica Guerra MD Unavailable Unavailable Stacie Easton PA-C Unavailable Mahesh Acevedo NP Unavailable [phone] [facility], Pcp Primary Care Provider Unavailabl e Reason for Visit * Reason Onset Date Comments Call From Insurance Co 01/15/2019 [facility] Encounter Details Date Type Department Care Team Description 01/15/2019 Telephone Dermatology - [address] [phone] Joyce Mcnair PA-C Call From [...] filedocumented in this encounter Care Teams Senior It Security Analyst Relationship Specialty Start Date End Date Angelica Guerra MD PCP - General Internal Medicine 03/02/17 08/01/21 [facility] PCP - General Internal Medicine 08/02/21 Angelica Guerra MD 02/10/17 Stacie Easton PA-C Specialist Cardiology 12/24/20 Mahesh Acevedo NP Specialist Cardiology 12/24/20 documented as of this encounter
--- OUTSIDE RECORDS SUMMARY | 2024-09-25 10:21 | XMS_ITS | Encounter Summary ---
Author Organization [facility] Address [address] [place] [address] Care Team Providers Care Hat Blocking Operator Name Role Phone Angelica Guerra MD Primary Care Provider Unava ilable Lucia Montes Primary Care Provider Unavailab le Angelica Guerra MD Primary Care Provider Unava ilable Angelica Guerra MD Unavailable Unavailable Angelica Guerra MD Unavailable Unavailable Stacie Easton PA-C Unavailable [facility] Unavailable [phone] [facility], Pcp Primary Care Provider [facility] Encounter Details Date Type Department Care Team Description 02/17/2016 Rn Internship Report Medical Records [address] [place] [address] Michael Bautista MD Social History Tobacco Use Types Packs/Day [...] on filedocumented in this encounter Care Teams Hat Blocking Operator Relationship Specialty Start Date End Date Angelica Guerra MD PCP - General 06/25/15 02/09/17 Lucia Montes PCP - General Internal Medicine 02/10/17 03/01/17 Angelica Guerra MD PCP - General Internal Medicine 03/02/17 08/01/21 [facility], Pcp PCP - General Internal Medicine 08/02/21 Angelica Guerra MD 06/25/15 02/09/17 Angelica Guerra MD 02/10/17 Stacie Easton PA-C Specialist Cardiology 12/24/20 Mahesh Acevedo NP Specialist Cardiology 12/24/20 documented as of this encounter
--- OUTSIDE RECORDS SUMMARY | 2024-09-25 10:21 | XMS_ITS | Encounter Summary ---
Author Organization [employer] Address [address] [facility] 7t [place] [address] Care Team Providers Care Quality Assurance Manager Name Role Phone Angela Luz MD Primary Care Provide r Ninfa Dietrich PharmD Unavailable Reason for Visit * Reason Comments Med Refill Encounter Details Date Type Department Care Team (Late st Contact Info) Description 07/03/2023 Refill [facility] MEDICINE [address] [place], [place] [phone] Angela Luz MD [address] [place], [place] [phone] Seasonal allergic rhinitis, unspecified trigger; Type 2 diabetes mellitus with other specified complication, unspecified whether emt intermediate insulin use ([facility]) Social History Tobacco Use Types Packs/Day [...] Description 10/17/2024 10:00 AM EDT Clinical Support [address] [address] Nazia Martins RN 10/21/2024 10:00 AM EDT Medication Management [facility] MEDICINE [address] [place] [address] Ninfa Dietrich, PharmD [address] [place] [address] 10/28/2024 9:00 AM EDT Office Visit [address] [address] Angela Luz MD [address] [place] [address] documented as of this encounter Visit Diagnoses Diagnosis Seasonal allergic rhinitis, unspecified trigger Type 2 diabetes mellitus with other specified complication, unspecified whether emt intermediate insulin use ([facility]) documented in this encounter Care Teams Quality Assurance Manager Relationship Specialty Start Date End Date Angela Luz MD [address] [place] [address] PCP - General Family Medicine 10/27/20 Ninfa Dietrich, PharmD [address] [place] [address] Pharmacist Internal Medicine 11/10/23 [employer] 12/20/23 documented as of this encounter
--- OUTSIDE RECORDS SUMMARY | 2024-09-25 10:21 | XMS_ITS | Encounter Summary ---
Author Organization [facility] Address [address] [place] [address] Care Team Providers Care Doctor Of Pharmacy Name Role Phone Angelica Guerra MD Primary Care Provider Unava ilable Angelica Guerra MD Primary Care Provider Unava ilable Lucia Montes Primary Care Provider Unavailab le Angelica Guerra MD Primary Care Provider Unava ilable Angelica Guerra MD Unavailable Unavailable Angelica Guerra MD Unavailable Unavailable Stacie Easton PA-C Unavailable [facility] Unavailable [phone] [facility], Pcp Primary Care Provider Unavailabl e Encounter Details Date Type Department Care Team Description 09/18/2012 Controlled Substance Contract with [facility] Medical Records [address] [place] [address] Abstract, Provider Social History Tobacco Use Types [...] on filedocumented in this encounter Care Teams Doctor Of Pharmacy Relationship Specialty Start Date End Date Angelica Guerra MD PCP - General 02/10/11 06/24/15 Angelica Guerra MD PCP - General 06/25/15 02/09/17 Lucia Montes PCP - General Internal Medicine 02/10/17 03/01/17 Angelica Guerra MD PCP - General Internal Medicine 03/02/17 08/01/21 [facility], [facility] PCP - General Internal Medicine 08/02/21 Angelica Guerra MD 06/25/15 02/09/17 Angelica Guerra MD 02/10/17 Stacie Easton PA-C Specialist Cardiology 12/24/20 Mahesh Acevedo NP Specialist Cardiology 12/24/20 documented as of this encounter
--- OUTSIDE RECORDS SUMMARY | 2024-09-25 10:21 | XMS_ITS | Encounter Summary ---
Author Organization [facility] Address [address] [place] [address] Care Team Providers Care Transition Manager Name Role Phone Angelica Guerra MD Primary Care Provider Unava ilable Angelica Guerra MD Unavailable Unavailable Stacie Easton PA-C Unavailable Mahesh Acevedo NP Unavailable [phone] [facility], Pcp Primary Care Provider Unavailabl e Encounter Details Date Type Department Care Team Description 02/05/2019 Asphalt Dauber Report Medical Records [address] [place] [address] Yin Rebolledo [address] [place] [address] Social History Tobacco Use Types Packs/Day Years [...] on filedocumented in this encounter Care Teams Transition Manager Relationship Specialty Start Date End Date Angelica Guerra MD PCP - General Internal Medicine 03/02/17 08/01/21 [facility], Pcp PCP - General Internal Medicine 08/02/21 Angelica Guerra MD 02/10/17 Stacie Easton PA-C Specialist Cardiology 12/24/20 Mahesh Acevedo NP Specialist Cardiology 12/24/20 documented as of this encounter
--- OUTSIDE RECORDS SUMMARY | 2024-09-25 10:21 | XMS_ITS | Encounter Summary ---
Author Organization [facility] Address [address] [place] [address] Care Team Providers Care Solid Plasterer Name Role Phone Angelica Guerra MD Primary Care Provider Unava ilable Angelica Guerra MD Unavailable Unavailable Stacie Easton PA-C Unavailable Mahesh Acevedo NP Unavailable [phone] [facility] [place], Pcp Primary Care Provider Unavailabl e Encounter Details Date Type Department Care Team Description 11/07/2018 Administrative Nursing Supervisor Report Medical Records [address] [place] [address] Yin Rebolledo [address] [place] [address] Social History Tobacco Use Types Packs/Day Years [...] on filedocumented in this encounter Care Teams Solid Plasterer Relationship Specialty Start Date End Date Angelica Guerra MD PCP - General Internal Medicine 03/02/17 08/01/21 [facility] [place], Pcp PCP - General Internal Medicine 08/02/21 Angelica Guerra MD 02/10/17 Stacie Easton PA-C Specialist Cardiology 12/24/20 Mahesh Acevedo NP Specialist Cardiology 12/24/20 documented as of this encounter
--- OUTSIDE RECORDS SUMMARY | 2024-09-25 10:21 | XMS_ITS | Encounter Summary ---
Author Organization [employer] [facility] Address [address] [place] [address] Care Team Providers Care Director Semiconductor Name Role Phone Angelica Guerra MD Primary Care Provider Unava ilable Angelica Guerra MD Unavailable Unavailable Stacie Easton PA-C Unavailable Mahesh Acevedo NP Unavailable [phone] [facility], Pcp Primary Care Provider Unavailabl e Reason for Visit * Reason Onset Date Comments Faxed Refill 02/07/2019 Encounter Details Date Type Department Care Team Description 02/07/2019 Refill Adult Medicine [address] [address] Angelica Guerra MD Faxed Refill Social History [...] N/A Patients current insurance carrier is: Payor: [employer] FFS / Plan: [employer] / Product Type: MEDICAID RISK documented in this encounter Plan of Treatment Not on file documented as of this encounter Visit Diagnoses Not on filedocumented in this encounter Care Teams Director Semiconductor Relationship Specialty Start Date End Date Angelica Guerra MD PCP - General Internal Medicine 03/02/17 08/01/21 [facility] PCP - General Internal Medicine 08/02/21 Angelica Guerra MD 02/10/17 Stacie Easton PA-C Specialist Cardiology 12/24/20 Mahesh Acevedo NP Specialist Cardiology 12/24/20 documented as of this encounter
--- OUTSIDE RECORDS SUMMARY | 2024-09-25 10:21 | XMS_ITS | Encounter Summary ---
Author Organization [employer] Address [address] [facility] 7t [place] [address] Care Team Providers Care Brush Operator Name Role Phone Angela Luz MD Primary Care Provide r Ninfa Dietrich PharmD Unavailable [phone] Reason for Visit * Reason Onset Date Comments Med Refill 06/28/2023 Encounter Details Date Type Department Care Team (Late st Contact Info) Description 06/28/[address] [facility] MEDICINE [address] [place], [place] [phone] Angela Luz MD [address] [place], [place] [phone] Other chronic pain Social History Tobacco Use [...] Description 10/17/2024 10:00 AM EDT Clinical Support [address] [address] Nazia Martins RN 10/21/2024 10:00 AM EDT Medication Management [address] [address] Ninfa Dietrich PharmD [address] [place] [address] 10/28/2024 9:00 AM EDT Office Visit [address] [address] Angela Luz MD [address] [place] [address] documented as of this encounter Visit Diagnoses Diagnosis Other chronic pain documented in this encounter Care Teams Brush Operator Relationship Specialty Start Date End Date Angela Luz MD [address] [place] [address] PCP - General Family Medicine 10/27/20 Ninfa Dietrich, PharmD [address] [place] [address] Pharmacist Internal Medicine 11/10/23 [employer] 12/20/23 documented as of this encounter
--- OUTSIDE RECORDS SUMMARY | 2024-09-25 10:21 | XMS_ITS | Encounter Summary ---
Author Organization [facility] Address [address] [place] [address] Care Team Providers Care Underwriting Clerks Supervisor Name Role Phone Angelica Guerra MD Primary Care Provider Unava ilable Lucia Montes Primary Care Provider Unavailab le Angelica Guerra MD Primary Care Provider Unava ilable Angelica Guerra MD Unavailable Unavailable Angelica Guerra MD Unavailable Unavailable Stacie Easton PA-C Unavailable [facility] NP Unavailable [phone] [facility], Pcp Primary Care Provider [facility] e Encounter Details Date Type Department Care Team Description 03/14/2016 SCAN Medical Records [address] [place] [address] Abstract, Provider Social History Tobacco Use Types [...] on filedocumented in this encounter Care Teams Underwriting Clerks Supervisor Relationship Specialty Start Date End Date Angelica Guerra MD PCP - General 06/25/15 02/09/17 Lucia Montes PCP - General Internal Medicine 02/10/17 03/01/17 Angelica Guerra MD PCP - General Internal Medicine 03/02/17 08/01/21 [facility], Pcp PCP - General Internal Medicine 08/02/21 Angelica Guerra MD 06/25/15 02/09/17 Angelica Guerra MD 02/10/17 Stacie Easton PA-C Specialist Cardiology 12/24/20 Mahesh Acevedo NP Specialist Cardiology 12/24/20 documented as of this encounter
--- OUTSIDE RECORDS SUMMARY | 2024-09-25 10:21 | XMS_ITS | Encounter Summary ---
Author Organization [employer] Address [address] [facility] 7t [place] [address] Care Team Providers Care Materials Handling Coordinator Name Role Phone Angela Luz MD Primary Care Provide r Ninfa Dietrich PharmD Unavailable [phone] Reason for Visit * Reason Onset Date Comments Med Refill 05/30/2023 Encounter Details Date Type Department Care Team (Late st Contact Info) Description 05/30/2023 Refill [facility] MEDICINE [address] [place], [place] [phone] Gemini Lagunas MD [address] [place], [place] [phone] Primary hypertension Social History Tobacco Use Types [...] 10/17/2024 10:00 AM EDT Clinical Support [address] [address] Nazia Martins RN 10/21/2024 10:00 AM EDT Medication Management [address] [address] Ninfa Dietrich PharmD [address] [place] [address] 10/28/2024 9:00 AM EDT Office Visit [address] [address] Angela Luz MD [address] [place] [address] documented as of this encounter Visit Diagnoses Diagnosis Primary hypertension Unspecified essential hypertension documented in this encounter Care Teams Materials Handling Coordinator Relationship Specialty Start Date End Date Angela Luz MD [address] [place] [address] PCP - General Family Medicine 10/27/20 Ninfa Dietrich PharmD [address] [place] [address] Pharmacist Internal Medicine 11/10/23 [employer] 12/20/23 documented as of this encounter
--- OUTSIDE RECORDS SUMMARY | 2024-09-25 10:21 | XMS_ITS | Encounter Summary ---
Author Organization Nadine [facility] Address [address] [place] [address] Care Team Providers Care Lithostripper Name Role Phone Angelica Guerra MD Primary Care Provider Unava ilable Angelica Guerra MD Unavailable Unavailable Stacie Easton PA-C Unavailable Mahesh Acevedo NP Unavailable [phone] [facility], Pcp Primary Care Provider Unavailabl e Encounter Details Date Type Department Care Team Description 12/14/2018 Detective Sergeant Report Medical Records [address] [place] [address] Yin Rebolledo [address] [place] [address] Social History Tobacco Use Types Packs/Day Years [...] on filedocumented in this encounter Care Teams Lithostripper Relationship Specialty Start Date End Date Angelica Guerra MD PCP - General Internal Medicine 03/02/17 08/01/21 [facility], Pcp PCP - General Internal Medicine 08/02/21 Angelica Guerra MD 02/10/17 Stacie Easton PA-C Specialist Cardiology 12/24/20 Mahesh Acevedo NP Specialist Cardiology 12/24/20 documented as of this encounter
--- OUTSIDE RECORDS SUMMARY | 2024-09-25 10:21 | XMS_ITS | Encounter Summary ---
Author Organization [employer] Address [address] [facility] 7t [place] [address] Care Team Providers Care Senior Staff Psychologist Name Role Phone Angela Luz MD Primary Care Provide r Ninfa Dietrich PharmD Unavailable [phone] Reason for Visit * Reason Comments Med Refill Encounter Details Date Type Department Care Team (Late st Contact Info) Description 07/20/2023 Refill [facility] MEDICINE [address] [place], [place] [phone] Angela Conrell MD [address] [place], [place] [phone] Social History Tobacco Use Types Packs/Day Years [...] Description 10/17/2024 10:00 AM EDT Clinical Support [address] [address] Nazia Martins RN 10/21/2024 10:00 AM EDT Medication Management [address] [address] Ninfa Dietrich, PharmD [address] [place] [address] 10/28/2024 9:00 AM EDT Office Visit [address] [address] Angela Luz MD [address] [place] [address] documented as of this encounter Goals Goal Patient Goal Type Associated Problems Recent Progress Patient-Stated? Author Blood Pressure < 140/90 Blood Pressure 120/44(2024 10:03 AM EDT) No Ady Araujo Hemoglobin A1c < 8 Result Component 8.5( 10:01 AM EDT) No Ady Araujo Note: Comorbidities: CHF, CKD, cirrhosis documented as of this encounter Visit Diagnoses Not on filedocumented in this encounter Care Teams Senior Staff Psychologist Relationship Specialty Start Date End Date Angela Luz MD [address] [place] [address] PCP - General Family Medicine 10/27/20 Ninfa Dietrich, LauraD [address] [place] [address] Pharmacist Internal Medicine 11/10/23 [employer] 12/20/23 documented as of this encounter
--- OUTSIDE RECORDS SUMMARY | 2024-09-25 10:21 | XMS_ITS | Encounter Summary ---
Author Organization [facility] Address [address] [place] [address] Care Team Providers Care Senior Project Controls Specialist Name Role Phone Angelica Guerra MD Primary Care Provider Unava ilable Angelica Guerra MD Unavailable Unavailable Stacie Easton PA-C Unavailable Mahesh Acevedo NP Unavailable [phone] [facility], Pcp Primary Care Provider Unavailabl e Encounter Details Date Type Department Care Team Description 10/10/2018 Lumber Marker Report Medical Records [address] [place] [address] Yin Rebolledo [address] [place] [address] Social History Tobacco Use Types Packs/Day Years [...] filedocumented in this encounter Care Teams Senior Project Controls Specialist Relationship Specialty Start Date End Date Angelica Guerra MD PCP - General Internal Medicine 03/02/17 08/01/21 [facility], Pcp PCP - General Internal Medicine 08/02/21 Angelica Guerra MD 02/10/17 Stacie Easton PA-C Specialist Cardiology 12/24/20 Mahesh Acevedo NP Specialist Cardiology 12/24/20 documented as of this encounter
--- OUTSIDE RECORDS SUMMARY | 2024-09-25 10:21 | XMS_ITS | Encounter Summary ---
Author Organization [employer] [facility] Address [address] [place] [address] Care Team Providers Care Plastic Maker Name Role Phone Angelica Guerra MD Primary Care Provider Unava ilable Angelica Guerra MD Unavailable Unavailable Stacie Easton PA-C Unavailable Mahesh Acevedo NP Unavailable [phone] [facility], Pcp Primary Care Provider Unavailabl e Encounter Details Date Type Department Care Team Description 02/22/2019 Ink Printer Report Medical Records [address] [place] [address] Willy Avilez Social History Tobacco Use Types [...] on filedocumented in this encounter Care Teams Plastic Maker Relationship Specialty Start Date End Date Angelica Guerra MD PCP - General Internal Medicine 03/02/17 08/01/21 [facility]cp PCP - General Internal Medicine 08/02/21 Angelica Guerra MD 02/10/17 Stacie Easton PA-C Specialist Cardiology 12/24/20 Mahesh Acevedo NP Specialist Cardiology 12/24/20 documented as of this encounter
--- OUTSIDE RECORDS SUMMARY | 2024-09-25 10:21 | XMS_ITS | Encounter Summary ---
Author Organization [email or web address] Address [address] [facility] 7t [place] [address] Care Team Providers Care School Photographs Detailer Name Role Phone Angela Luz MD Primary Care Provide r Ninfa Dietrich PharmD Unavailable [phone] Reason for Visit * Reason Onset Date Comments Med Refill 05/30/2023 Encounter Details Date Type Department Care Team (Late st Contact Info) Description 05/30/2023 Refill [facility] MEDICINE [address] [place], [place] [phone] Yunier Mohr MD [address] [place], [place] [phone] Forgetfulness Social History Tobacco Use Types Packs/Day [...] Description 10/17/2024 10:00 AM EDT Clinical Support [address] [address] Nazia Martins RN 10/21/2024 10:00 AM EDT Medication Management [address] [address] Ninfa Dietrich PharmD [address] [place] [address] 10/28/2024 9:00 AM EDT Office Visit [address] [address] Angela Luz MD [address] [place] [address] documented as of this encounter Visit Diagnoses Diagnosis Forgetfulness Other general symptoms documented in this encounter Care Teams School Photographs Detailer Relationship Specialty Start Date End Date Angela Luz MD [address] [place] [address] PCP - General Family Medicine 10/27/20 Ninfa Dietrich, PharmD [address] [place] [address] Pharmacist Internal Medicine 11/10/23 [employer] 12/20/23 documented as of this encounter
--- OUTSIDE RECORDS SUMMARY | 2024-09-25 10:21 | XMS_ITS | Encounter Summary ---
Author Organization [employer] Address [address] [facility] 7t [place] [address] Care Team Providers Care Dressmaker Garment Fitter Name Role Phone Angela Luz MD Primary Care Provide r Ninfa Dietrich PharmD Unavailable [phone] Reason for Visit * Reason Onset Date Comments Med Refill 05/30/2023 Encounter Details Date Type Department Care Team (Late st Contact Info) Description 05/30/2023 Refill [facility] [address] [place], [place] [phone] Angela Cornell MD [address] [place], [place] [phone] Diabetic polyneuropathy associated with type 2 diabetes [...] Description 10/17/2024 10:00 AM EDT Clinical Support [address] [address] Nazia Martins RN 10/21/2024 10:00 AM EDT Medication Management [address] [address] Ninfa Dietrich PharmD [address] [place] [address] 10/28/2024 9:00 AM EDT Office Visit [address] [address] Angela Luz MD [address] [place] [address] documented as of this encounter Visit Diagnoses Diagnosis Diabetic polyneuropathy associated with type 2 diabetes mellitus (CMS/HCC) documented in this encounter Care Teams Dressmaker Garment Fitter Relationship Specialty Start Date End Date Angela Luz MD [address] [place] [address] PCP - General Family Medicine 10/27/20 Ninfa Dietrich PharmD [address] [place] [address], [place] [address] Pharmacist Internal Medicine 11/10/23 [employer] 12/20/23 documented as of this encounter
--- OUTSIDE RECORDS SUMMARY | 2024-09-25 10:21 | XMS_ITS | Encounter Summary ---
Author Organization [employer] [facility] Address [address] [place] [address] Care Team Providers Care Millinery Salesperson Name Role Phone Angelica Guerra MD Primary Care Provider Unava ilable Angelica Guerra MD Unavailable Unavailable Stacie Easton PA-C Unavailable Mahesh Acevedo NP Unavailable [phone] [facility], Pcp Primary Care Provider Unavailabl e Encounter Details Date Type Department Care Team Description 01/17/2019 SCAN Medical Records [address] [place] [address] Stacie Easton PA-C [address] [place], [place] [phone] Social History Tobacco Use Types Packs/Day Years [...] on filedocumented in this encounter Care Teams Millinery Salesperson Relationship Specialty Start Date End Date Angelica Guerra MD PCP - General Internal Medicine 03/02/17 08/01/21 [facility], Pcp PCP - General Internal Medicine 08/02/21 Angelica Guerra MD 02/10/17 Stacie Easton PA-C Specialist Cardiology 12/24/20 Mahesh Acevedo NP Specialist Cardiology 12/24/20 documented as of this encounter
--- OUTSIDE RECORDS SUMMARY | 2024-09-25 10:21 | XMS_ITS | Encounter Summary ---
Author Organization [employer] [facility] Address [address] [place] [address] Care Team Providers Care Seal Extrusion Operator Name Role Phone Angelica Guerra MD Primary Care Provider Unava ilable Angelica Guerra MD Unavailable Unavailable Stacie Easton PA-C Unavailable Mahesh Acevedo NP Unavailable [phone] [facility], Pcp Primary Care Provider Unavailabl e Encounter Details Date Type Department Care Team Description 09/07/2018 Manager Review Report Medical Records [address] [place] [address] Willy Avilez Social History Tobacco Use Types [...]
--- OUTSIDE RECORDS SUMMARY | 2024-09-25 10:22 | XMS_ITS | Encounter Summary ---
Author Organization [facility] Address [address] [place] [address] Care Team Providers Care Plant Operations Engineer Name Role Phone Angelica Guerra MD Primary Care Provider Unava ilable Angelica Guerra MD Primary Care Provider Unava ilable Lucia Montes Primary Care Provider Unavailab le Angelica Guerra MD Primary Care Provider Unava ilable Angelica Guerra MD Unavailable Unavailable Angelica Guerra MD Unavailable Unavailable Stacie Easton PA-C Unavailable [facility] m[facility] NP Unavailable [phone] [facility], Pcp Primary Care Provider Unavailabl e Encounter Details Date Type Department Care Team Description 06/07/2012 Hospital Medical Records [address] [place] [address] Fabby Anthony MD Social History Tobacco Use Types Packs/Day [...] on filedocumented in this encounter Care Teams Plant Operations Engineer Relationship Specialty Start Date End Date Angelica Guerra MD PCP - General 9/22/11 2/3/16 Angelica Guerra MD PCP - General 06/25/15 02/09/17 Lucia Montes PCP - General Internal Medicine 02/10/17 03/01/17 Angelica Guerra MD PCP - General Internal Medicine 03/02/17 08/01/21 [facility], [facility] PCP - General Internal Medicine 08/02/21 Angelica Guerra MD 06/25/15 02/09/17 Angelica Guerra MD 02/10/17 Stacie Easton PA-C Specialist Cardiology 12/24/20 Mahesh Acevedo NP Specialist Cardiology 12/24/20 documented as of this encounter
--- OUTSIDE RECORDS SUMMARY | 2024-09-25 10:22 | XMS_ITS | Encounter Summary ---
Author Organization [employer] Address [address] [facility] 7t [place] [address] Care Team Providers Care Glass Processing Worker Name Role Phone Angela Luz MD Primary Care Provide r Ninfa Dietrich PharmD Unavailable [phone] Reason for Visit * Reason Onset Date Comments Med Refill 12/04/2023 Encounter Details Date Type Department Care Team (Late st Contact Info) Description 12/04/2023 Refill [facility] [address] [place], [place] [phone] Angela Luz MD [address] [place], [place] [phone] Other chronic pain Social History Tobacco Use [...] Description 10/17/2024 10:00 AM EDT Clinical Support [address] [address] Nazia Martins RN 10/21/2024 10:00 AM EDT Medication Management [address] [address] Ninfa Dietrich, PharmD [address] [place] [address] 10/28/2024 9:00 AM EDT Office Visit [address] [address] Angela Luz MD [address] [place] [address] documented as of this encounter Goals Goal [...] pain documented in this encounter Care Teams Glass Processing Worker Relationship Specialty Start Date End Date Angela Luz MD [address] [place] [address] PCP - General Family Medicine 10/27/20 Ninfa Dietrich, LauraD [address] [place] [address] Pharmacist Internal Medicine 11/10/23 [employer] 12/20/23 documented as of this encounter
--- OUTSIDE RECORDS SUMMARY | 2024-09-25 10:22 | XMS_ITS | Encounter Summary ---
Author Organization [employer] [facility] Address [address] [place] [address] Care Team Providers Care Hair Or Beauty Salon Assistant Name Role Phone Angelica Guerra MD Primary Care Provider Unava ilable Angelica Guerra MD Unavailable Unavailable Stacie Easton PA-C Unavailable Mahesh Acevedo NP Unavailable [phone] [facility], Pcp Primary Care Provider Unavailabl e Reason for Visit * Reason Onset Date Comments Faxed Order 03/23/2018 Encounter Details Date Type Department Care Team Description 03/23/2018 Telephone Adult [address] [address] Angelica Guerra MD Faxed Order Social History Tobacco Use Types Packs/Day Years Used Date Smoking Tobacco: Former Smokeless Tobacco: Never Alcohol Use Standard Drinks/Week Comments No 0 (1 standard drink = 0.6 oz pur e alcohol) Sex Assigned at Date Recorded Not on file documented as of this encounter Miscellaneous Notes * Telephone Encounter - Tawny Cortes - 03/23/2018 3:18 PM EDT [id number] faxed over patient's plan of care, please sign and fax back orders to [phone]. Orders placed in pcp bin documented in this encounter Plan of Treatment Not on file documented as of this encounter Visit Diagnoses Not on filedocumented in this encounter Care Teams Hair Or Beauty Salon Assistant Relationship Specialty Start Date End Date Angelica Guerra MD PCP - General Internal Medicine 03/02/17 08/01/21 [facility] Pcp PCP - General Internal Medicine 08/02/21 Angelica Guerra MD 02/10/17 Stacie Easton PA-C Specialist Cardiology 12/24/20 Mahesh Acevedo NP Specialist Cardiology 12/24/20 documented as of this encounter
--- OUTSIDE RECORDS SUMMARY | 2024-09-25 10:22 | XMS_ITS | Encounter Summary ---
Author Organization [employer] [facility] Address [address] [place] [address] Care Team Providers Care Tire Trucker Name Role Phone Angelica Guerra MD Primary Care Provider Unava ilable Angelica Guerra MD Unavailable Unavailable Stacie Easton PA-C Unavailable Mahesh Acevedo NP Unavailable [phone] [facility], Pcp Primary Care Provider Unavailabl e Encounter Details Date Type Department Care Team Description 09/28/2020 Refill Podiatry - [address] [phone] Missy Saeed DPM Social History Tobacco Use Types Packs/Day Years [...] have Coronavirus / COVID-19? No / Unsure 09/21/2020 10:38 AM EDT documented as of this encounter Miscellaneous Notes * Telephone Encounter - Angelica Guerra MD - 10/05/2020 4:59 PM EDT Will send refill now, but future refills will require an appointment. Usually ciclopirox is used for [address] Saeed prescribed it in 2018 then again in 2019. Possible that patient's onychomycosis recurred. * Telephone Encounter - Lucila Ledezma M.A. - 10/01/2020 9:[address] Saeed no longer here documented in this encounter Plan of Treatment Not on file documented as of this encounter Visit Diagnoses Diagnosis Onychomycosis Dermatophytosis of nail documented in this encounter Care Teams Tire Trucker Relationship Specialty Start Date End Date Angelica Guerra MD PCP - General Internal Medicine 03/02/17 08/01/21 [facility] PCP - General Internal Medicine 08/02/21 Angelica Guerra MD 02/10/17 Stacie Easton PA-C Specialist Cardiology 12/24/20 Mahesh Acevedo NP Specialist Cardiology 12/24/20 documented as of this encounter
--- OUTSIDE RECORDS SUMMARY | 2024-09-25 10:22 | XMS_ITS | Encounter Summary ---
Author Organization [facility] Address [address] [place] [address] Care Team Providers Care Loom Inspector Name Role Phone Angelica Guerra MD Primary Care Provider Unava ilable Angelica Guerra MD Primary Care Provider Unava ilable Lucia Montes Primary Care Provider Unavailab le Angelica Guerra MD Primary Care Provider Unava ilable Angelica Guerra MD Unavailable Unavailable Angelica Guerra MD Unavailable Unavailable Stacie Easton PA-C Unavailable [facility] Unavailable [phone] [facility], Pcp Primary Care Provider Unavailabl e Encounter Details Date Type Department Care Team Description 02/27/2015 Refill Adult Medicine [address] [address] Angelica Guerra MD Social History Tobacco Use [...] on filedocumented in this encounter Care Teams Loom Inspector Relationship Specialty Start Date End Date Angelica Guerra MD PCP - General 02/10/11 06/24/15 Angelica Guerra MD PCP - General 06/25/15 02/09/17 Lucia Montes PCP - General Internal Medicine 02/10/17 03/01/17 Angelica Guerra MD PCP - General Internal Medicine 03/02/17 08/01/21 [facility] PCP - General Internal Medicine 08/02/21 Angelica Guerra MD 06/25/15 02/09/17 Angelica Guerra MD 02/10/17 Stacie Easton PA-C Specialist Cardiology 12/24/20 Mahesh Acevedo NP Specialist Cardiology 12/24/20 documented as of this encounter
--- OUTSIDE RECORDS SUMMARY | 2024-09-25 10:22 | XMS_ITS | Encounter Summary ---
Author Organization [employer] [facility] Address [address] [place] [address] Care Team Providers Care Nailhead Operator Name Role Phone Angelica Guerra MD Primary Care Provider Unava ilable Angelica Guerra MD Unavailable Unavailable Stacie Easton PA-C Unavailable Mahesh Acevedo NP Unavailable [phone] [facility], Pcp Primary Care Provider Unavailabl e Encounter Details Date Type Department Care Team Description 03/21/2018 Relations Coordinator Report Medical Records [address] [place] [address] Willy Avilez Social History Tobacco Use Types [...] on filedocumented in this encounter Care Teams Nailhead Operator Relationship Specialty Start Date End Date Angelica Guerra MD PCP - General Internal Medicine 03/02/17 08/01/21 [facility] Pcp PCP - General Internal Medicine 08/02/21 Angelica Guerra MD 02/10/17 Stacie Easton PA-C Specialist Cardiology 12/24/20 Mahesh Acevedo NP Specialist Cardiology 12/24/20 documented as of this encounter
--- OUTSIDE RECORDS SUMMARY | 2024-09-25 10:22 | XMS_ITS | Encounter Summary ---
Author Organization [employer] Address [address] [facility] [address] [place] [address] Care Team Providers Care Learning Support Specialist Name Role Phone Angela Luz MD Primary Care Provide r Ninfa Dietrich PharmD Unavailable Reason for Visit * Reason Onset Date Comments Med Refill 05/30/2023 Encounter Details Date Type Department Care Team (Late st Contact Info) Description 05/30/2023 Refill [facility] MED & PEDS [address] [place], [place] [phone] Balwinder Kumar MD [address] [facility] [place], [place] [phone] Seasonal allergic rhinitis, unspecified trigger Social History [...] 10/17/2024 10:00 AM EDT Clinical Support [address] [address] Nazia Martins RN 10/21/2024 10:00 AM EDT Medication Management [address] [address] Ninfa Dietrich PharmD [address] [place] [address] 10/28/2024 9:00 AM EDT Office Visit [address] [address] Angela Luz MD [address] [place] [address] documented as of this encounter Visit Diagnoses Diagnosis Seasonal allergic rhinitis, unspecified trigger documented in this encounter Care Teams Learning Support Specialist Relationship Specialty Start Date End Date Angela Luz MD [address] [place] [address] PCP - General Family Medicine 10/27/20 Ninfa Dietrich, PharmD [address] [place] [address] Pharmacist Internal Medicine 11/10/23 [employer] 12/20/23 documented as of this encounter
--- OUTSIDE RECORDS SUMMARY | 2024-09-25 10:22 | XMS_ITS | Encounter Summary ---
Author Organization [facility] Address [address] [place] [address] Care Team Providers Care Plastic Fixture Builder Name Role Phone Angelica Guerra MD Primary Care Provider Unava ilable Angelica Guerra MD Unavailable Unavailable Stacie Easton PA-C Unavailable Mahesh Acevedo NP Unavailable [phone] [facility], Pcp Primary Care Provider Unavailabl e Encounter Details Date Type Department Care Team Description 06/18/2018 Hospital Medical Records [address] [place] [address] Bird Lopez Social History Tobacco Use Types Packs/Day Years [...] filedocumented in this encounter Care Teams Plastic Fixture Builder Relationship Specialty Start Date End Date Angelica Guerra MD PCP - General Internal Medicine 03/02/17 08/01/21 [facility] Pcp PCP - General Internal Medicine 08/02/21 Angelica Guerra MD 02/10/17 Stacie Easton PA-C Specialist Cardiology 12/24/20 Mahesh Acevedo NP Specialist Cardiology 12/24/20 documented as of this encounter
--- OUTSIDE RECORDS SUMMARY | 2024-09-25 10:22 | XMS_ITS | Encounter Summary ---
Author Organization [employer] [facility] Address [address] [place] [address] Care Team Providers Care Pnp Name Role Phone Angelica Guerra MD Primary Care Provider Unava ilable Angelica Guerra MD Unavailable Unavailable Stacie Easton PA-C Unavailable Mahesh Acevedo NP Unavailable [phone] [facility], Pcp Primary Care Provider Unavailabl e Encounter Details Date Type Department Care Team Description 03/06/2020 Orders Only General Surgery [address] [place], [place] [phone] Oziel Sanchez MD [address] [place] [address] Left breast mass Social History Tobacco Use [...] breast documented in this encounter Care Teams Pnp Relationship Specialty Start Date End Date Angelica Guerra MD PCP - General Internal Medicine 03/02/17 08/01/21 [facility] PCP - General Internal Medicine 08/02/21 Angelica Guerra MD 02/10/17 Stacie Easton PA-C Specialist Cardiology 12/24/20 Mahesh Acevedo NP Specialist Cardiology 12/24/20 documented as of this encounter
--- OUTSIDE RECORDS SUMMARY | 2024-09-25 10:22 | XMS_ITS | Encounter Summary ---
Author Organization [employer] Address [address] [facility] 7t [place] [address] Care Team Providers Care Senior Account Clerk Name Role Phone Angela Luz MD Primary Care Provide r Ninfa Dietrich PharmD Unavailable [phone] Reason for Visit * Reason Onset Date Comments Med Refill 05/30/2023 Encounter Details Date Type Department Care Team (Late st Contact Info) Description 05/30/2023 Refill [facility] MED & PEDS [address] [place], [place] [phone] Angela Luz MD [address] [place], [place] [phone] Primary hypertension Social History Tobacco Use Types [...] Description 10/17/2024 10:00 AM EDT Clinical Support [address] [address] Nazia Martins RN 10/21/2024 10:00 AM EDT Medication Management [address] [address] Ninfa Dietrich PharmD [address] [place] [address] 10/28/2024 9:00 AM EDT Office Visit [address] [address] Angela Luz MD [address] [place] [address] documented as of this encounter Visit Diagnoses Diagnosis Primary hypertension Unspecified essential hypertension documented in this encounter Care Teams Senior Account Clerk Relationship Specialty Start Date End Date Angela Luz MD [address] [place] [address] PCP - General Family Medicine 10/27/20 Ninfa Dietrich, PharmD [address] [place] [address] Pharmacist Internal Medicine 11/10/23 [employer] 12/20/23 documented as of this encounter
--- OUTSIDE RECORDS SUMMARY | 2024-09-25 10:22 | XMS_ITS | Encounter Summary ---
Author Organization [facility] Address [address] [place] [address] Care Team Providers Care Mortgage Advisor Name Role Phone Angelica Guerra MD Primary Care Provider Unava ilable Angelica Guerra MD Unavailable Unavailable Stacie Easton PA-C Unavailable Mahesh Acevedo NP Unavailable [phone] [facility], Pcp Primary Care Provider Unavailabl e Encounter Details Date Type Department Care Team Description 07/20/2020 Old Medical Records Medical Records [address] [place] [address] Abstract, Provider Social History Tobacco Use Types [...] have Coronavirus / COVID-19? No / Unsure 07/08/2020 8:10 AM EST documented as of this encounter Plan of Treatment Not on file documented as of this encounter Visit Diagnoses Not on filedocumented in this encounter Care Teams Mortgage Advisor Relationship Specialty Start Date End Date Angelica Guerra MD PCP - General Internal Medicine 03/02/17 08/01/21 [facility] Pcp PCP - General Internal Medicine 08/02/21 Angelica Guerra MD 02/10/17 Stacie Easton PA-C Specialist Cardiology 12/24/20 Mahesh Acevedo NP Specialist Cardiology 12/24/20 documented as of this encounter
--- OUTSIDE RECORDS SUMMARY | 2024-09-25 10:22 | XMS_ITS | Encounter Summary ---
Author Organization [facility] Address [address] [place] [address] Care Team Providers Care Fluid Designer Name Role Phone Angelica Guerra MD Primary Care Provider Unava ilable Angelica Guerra MD Unavailable Unavailable Stacie Easton PA-C Unavailable Mahesh Acevedo NP Unavailable [phone] [facility], Pcp Primary Care Provider Unavailabl e Encounter Details Date Type Department Care Team Description 06/26/2018 Retail Banking Manager Report Medical Records [address] [place] [address] Zeina Renee [address] [place] [address] Social History Tobacco Use Types Packs/Day Years [...] on filedocumented in this encounter Care Teams Fluid Designer Relationship Specialty Start Date End Date Angelica Guerra MD PCP - General Internal Medicine 03/02/17 08/01/21 [facility] Pcp PCP - General Internal Medicine 08/02/21 Angelica Guerra MD 02/10/17 Stacie Easton PA-C Specialist Cardiology 12/24/20 Mahesh Acevedo NP Specialist Cardiology 12/24/20 documented as of this encounter
--- OUTSIDE RECORDS SUMMARY | 2024-09-25 10:22 | XMS_ITS | Encounter Summary ---
Author Organization [employer] Address [address] [facility] [address] 7[address] [place] [address] Care Team Providers Care Housemaid Name Role Phone Angela Luz MD Primary Care Provide r Ninfa Dietrich PharmD Unavailable Reason for Visit * Reason Comments Med Refill Encounter Details Date Type Department Care Team (Late st Contact Info) Description 09/27/2023 Refill [facility] MED & PEDS [address] [place], [place] [phone] Angela Luz MD [address] [place], [place] [phone] Seasonal allergic rhinitis, unspecified trigger; Other chronic [...] Description 10/17/2024 10:00 AM EDT Clinical Support [address] [address] Nazia Martins RN 10/21/2024 10:00 AM EDT Medication Management [address] [address] Ninfa Dietrich, PharmD [address] [place] [address] 10/28/2024 9:00 AM EDT Office Visit [address] [address] Angela Luz MD [address] [place] [address] documented as of this encounter Goals Goal [...] pain documented in this encounter Care Teams Housemaid Relationship Specialty Start Date End Date Angela Luz MD [address] [place] [address] PCP - General Family Medicine 10/27/20 Ninfa Dietrich, LauraD [address] [place] [address] Pharmacist Internal Medicine 11/10/23 [employer] 12/20/23 documented as of this encounter
--- OUTSIDE RECORDS SUMMARY | 2024-09-25 10:22 | XMS_ITS | Encounter Summary ---
Author Organization [employer] Address [address] [facility] 7t [place] [address] Care Team Providers Care Clerical Receptionist Name Role Phone Angela Luz MD Primary Care Provide r Ninfa Dietrich PharmD Unavailable [phone] Reason for Visit * Reason Onset Date Comments Call Back Request 01/24/2024 Encounter Details Date Type Department Care Team ([facility] st Contact Info) Description 01/24/2024 Telephone [facility] [address] [place], [place] [phone] Angela Luz MD [address] [place], [place] [phone] Call Back Request Social History Tobacco Use [...] EDT Tc from Angela the [facility] at [employer] requesting a calll back in regards to a sliding scale that was suppose to be faxed to [phone] please call Angela at [phone] documented in this encounter Plan of Treatment Upcoming Encounters Date Type Department Care Team (Late st Contact Info) Description 10/17/2024 10:00 AM EDT Clinical Support [address] [address] Nazia Martins RN 10/21/2024 10:00 AM EDT Medication Management [address] [address] Ninfa Dietrich, LauraD [address] [place] [address] 10/28/2024 9:00 AM EDT Office Visit [address] [address] Angela Luz MD [address] [place] [address] documented as of this encounter Goals Goal Patient Goal Type Associated Problems Recent Progress Patient-Stated? Author Blood Pressure < 140/90 Blood Pressure 120/44(2024 10:03 AM EDT) No Ady Araujo Hemoglobin A1c < 8 Result Component 8.5( 10:01 AM EDT) No Ady Araujo Note: Comorbidities: CHF, CKD, cirrhosis documented as of this encounter Visit Diagnoses Not on filedocumented in this encounter Care Teams Clerical Receptionist Relationship Specialty Start Date End Date Angela Luz MD [address] [place] [address] PCP - General Family Medicine 10/27/20 Ninfa Dietrich, LauraD [address] [place] [address] Pharmacist Internal Medicine 11/10/23 [employer] 12/20/23 documented as of this encounter
--- OUTSIDE RECORDS SUMMARY | 2024-09-25 10:22 | XMS_ITS | Encounter Summary ---
Author Organization [employer] [facility] Address [address] [place] [address] Care Team Providers Care Event Staff Member Name Role Phone Angelica Guerra MD Primary Care Provider Unava ilable Angelica Guerra MD Unavailable Unavailable Stacie Easton PA-C Unavailable Mahesh Acevedo NP Unavailable [phone] [facility], Pcp Primary Care Provider Unavailabl e Encounter Details Date Type Department Care Team Description 05/06/2020 Horticultural Farm Manager Report Medical Records [address] [place] [address] Sarah Parks Social History Tobacco Use Types [...] filedocumented in this encounter Care Teams Event Staff Member Relationship Specialty Start Date End Date Angelica Guerra MD PCP - General Internal Medicine 03/02/17 08/01/21 [facility] Pcp PCP - General Internal Medicine 08/02/21 Angelica Guerra MD 02/10/17 Stacie Easton PA-C Specialist Cardiology 12/24/20 Mahesh Acevedo NP Specialist Cardiology 12/24/20 documented as of this encounter
--- OUTSIDE RECORDS SUMMARY | 2024-09-25 10:22 | XMS_ITS | Encounter Summary ---
Author Organization [facility] Address [address] [place] [address] Care Team Providers Care Electrocardiogram Technician Name Role Phone Angelica Guerra MD Primary Care Provider Unava ilable Angelica Guerra MD Unavailable Unavailable Stacie Easton PA-C Unavailable Mahesh Acevedo NP Unavailable [phone] [facility], Pcp Primary Care Provider Unavailabl e Encounter Details Date Type Department Care Team Description 11/30/2020 Orders Only Cardio [facility] [address] [place] [address] [address] [place] [address] Mahesh Acevedo NP [address] [place] [phone] Chest pain, unspecified type (Primary Dx) Social History Tobacco Use Types Packs/Day Years Used Date Smoking Tobacco: Former Smokeless Tobacco: Never Alcohol Use Standard Drinks/Week Comments No 0 (1 standard drink = 0.6 oz pur e alcohol) Sex Assigned at Date Recorded Not on file documented as of this encounter Plan of Treatment Scheduled Orders Name Type Priority Associated Diagnoses Orde r Schedule NUCLEAR STRESS WITH EXERCISE, REGADENOSON, OR DOBUTAMINE PER PROTOCOL Cardiology Routine Chest pain, unspecified type Expected: 11/30/2020, Expires: 11/30/2021 documented as of this encounter Visit Diagnoses Diagnosis Chest pain, unspecified type- Primary documented in this encounter Care Teams Electrocardiogram Technician Relationship Specialty Start Date End Date Angelica Guerra MD PCP - General Internal Medicine 03/02/17 08/01/21 [facility] PCP - General Internal Medicine 08/02/21 Angelica Guerra MD 02/10/17 Stacie Easton PA-C Specialist Cardiology 12/24/20 Mahesh Acevedo NP Specialist Cardiology 12/24/20 documented as of this encounter
--- OUTSIDE RECORDS SUMMARY | 2024-09-25 10:22 | XMS_ITS | Encounter Summary ---
Author Organization [facility] Address [address] [place] [address] Care Team Providers Care Md Ophthalmologist Name Role Phone Angelica Guerra MD Primary Care Provider Unava ilable Angelica Guerra MD Unavailable Unavailable Stacie Easton PA-C Unavailable Mahesh Acevedo NP Unavailable [phone] [facility], Pcp Primary Care Provider Unavailabl e Reason for Visit * Reason Comments E-prescribe Rx Request Encounter Details Date Type Department Care Team Description 07/02/2020 Refill General Surgery [address] [place], [place] [phone] Oziel Sanchez MD [address] [place] [address] E-prescribe Rx Request Social History Tobacco Use [...] Mastodynia documented in this encounter Care Teams Md Ophthalmologist Relationship Specialty Start Date End Date Angelica Guerra MD PCP - General Internal Medicine 03/02/17 08/01/21 [facility] PCP - General Internal Medicine 08/02/21 Angelica Guerra MD 02/10/17 Stacie Easton PA-C Specialist Cardiology 12/24/20 Mahesh Acevedo NP Specialist Cardiology 12/24/20 documented as of this encounter
--- OUTSIDE RECORDS SUMMARY | 2024-09-25 10:22 | XMS_ITS | Encounter Summary ---
Author Organization [facility] Address [address] [place] [address] Care Team Providers Care Cement Conveyor Operator Name Role Phone Angelica Guerra MD Primary Care Provider Unava ilable Angelica Guerra MD Unavailable Unavailable Stacie Easton PA-C Unavailable Mahesh Acevedo NP Unavailable [phone] [facility], Pcp Primary Care Provider Unavailabl e Encounter Details Date Type Department Care Team Description 02/27/2018 [facility] Medical Records [address] [place] [address] Abstract, Provider Social History Tobacco Use Types [...] on filedocumented in this encounter Care Teams Cement Conveyor Operator Relationship Specialty Start Date End Date Angelica Guerra MD PCP - General Internal Medicine 03/02/17 08/01/21 [facility] Pcp PCP - General Internal Medicine 08/02/21 Angelica Guerra MD 02/10/17 Stacie Easton PA-C Specialist Cardiology 8/5/21 Mahesh Acevedo NP Specialist Cardiology 12/24/20 documented as of this encounter
--- OUTSIDE RECORDS SUMMARY | 2024-09-25 10:22 | XMS_ITS | Encounter Summary ---
Author Organization [employer] Address [address] [facility] 7t [place] [address] Care Team Providers Care Liberal Arts And Humanities Chair Name Role Phone Angela Luz MD Primary Care Provide r Ninfa Dietrich PharmD Unavailable Reason for Visit * Reason Onset Date Comments Med Refill 05/30/2023 Encounter Details Date Type Department Care Team (Late st Contact Info) Description 05/30/2023 Refill [facility] [address] [place], [place] [phone] Angela Luz MD [address] [place], [place] [phone] Type 2 diabetes mellitus with other specified complication, unspecified whether fpc insulin use (CMS/HCC); Type 2 diabetes mellitus [...] AM EDT Clinical Support [facility] [address] [place] [address] Nazia Martins RN 10/21/2024 10:00 AM EDT Medication Management [facility] [address] [place] [address] Ninfa Dietrich PharmD [address] [place] [address] 10/28/2024 9:00 AM EDT Office Visit [facility] [address] [place] [address] Angela Luz MD [address] [place] [address] documented as of this encounter Visit Diagnoses Diagnosis Type 2 diabetes mellitus with other specified complication, unspecified whether fpc insulin use ([facility]) Type 2 diabetes mellitus with stage 3 chronic kidney disease, with long-term current use of insulin, unspecified whether stage 3a or 3b CKD ([facility]) Other chronic pain documented in this encounter Care Teams Liberal Arts And Humanities Chair Relationship Specialty Start Date End Date Angela Luz MD [address] [place] [address] PCP - General Family Medicine 10/27/20 Ninfa Dietrich PharmD [address] [place] [address] Pharmacist Internal Medicine 11/10/23 [employer] 12/20/23 documented as of this encounter
--- OUTSIDE RECORDS SUMMARY | 2024-09-25 10:22 | XMS_ITS | Encounter Summary ---
Author Organization [facility] Address [address] [place] [address] Care Team Providers Care Extractor Operator Solvent Process Name Role Phone Angelica Guerra MD Primary Care Provider Unava ilable Angelica Guerra MD Unavailable Unavailable Stacie Easton PA-C Unavailable Mahesh Acevedo NP Unavailable [phone] [facility], Pcp Primary Care Provider Unavailabl e Reason for Visit * Reason Onset Date Comments Medication 08/26/2020 Encounter Details Date Type Department Care Team Description 08/26/2020 Telephone Adult [address] [address] Angelica Guerra MD Medication Social History Tobacco [...] MED LIST AND IS IDENTIFIED BELOW): {MED LIST:72965) Med name: Easy Touch Pen Needle 31 GX3/16 Dosage: # of tablets: 400.00 Local pharmacy with request for 90 -day supply Instructions: USE FOUR TIMES DAILY Did you check the pharmacy information above?: YES Patients current insurance carrier: Payor: [facility] MCR / Plan: O $0 [facility] [id number] / Product Type: HMO [id number] documented in this encounter Plan of Treatment Not on file documented as of this encounter Visit Diagnoses Not on filedocumented in this encounter Care Teams Extractor Operator Solvent Process Relationship Specialty Start Date End Date Angelica Guerra MD PCP - General Internal Medicine 03/02/17 08/01/21 [facility] Pcp PCP - General Internal Medicine 08/02/21 Angelica Guerra MD 02/10/17 Stacie Easton PA-C Specialist Cardiology 12/24/20 Mahesh Acevedo NP Specialist Cardiology 12/24/20 documented as of this encounter
--- OUTSIDE RECORDS SUMMARY | 2024-09-25 10:22 | XMS_ITS | Encounter Summary ---
[facility] Address [address] [place] [address] Care Team Providers Care Board Of Directors Name Role Phone Angelica Guerra MD Primary Care Provider Unava ilable Lucia Montes Primary Care Provider Unavailab le Angelica Guerra MD Primary Care Provider Unava ilable Angelica Guerra MD Unavailable Unavailable Angelica Guerra MD Unavailable Unavailable Stacie Easton PA-C Unavailable [facility] NP Unavailable [phone] [facility], Pcp Primary Care Provider [facility] e Encounter Details Date Type Department Care Team Description 06/25/2015 Electromechanical Equipment Tester Report Medical Records [address] [place] [address] Grey Joshua MD Social History Tobacco Use [...] on filedocumented in this encounter Care Teams Board Of Directors Relationship Specialty Start Date End Date Angelica Guerra MD PCP - General 06/25/15 02/09/17 Lucia Montes PCP - General Internal Medicine 02/10/17 03/01/17 Angelica Guerra MD PCP - General Internal Medicine 03/02/17 08/01/21 [facility], Pcp PCP - General Internal Medicine 08/02/21 Angelica Guerra MD 06/25/15 02/09/17 Angelica Guerra MD 02/10/17 Stacie Easton PA-C Specialist Cardiology 12/24/20 Mahesh Acevedo NP Specialist Cardiology 12/24/20 documented as of this encounter
--- OUTSIDE RECORDS SUMMARY | 2024-09-25 10:22 | XMS_ITS | Encounter Summary ---
Author Organization [employer] Address [address] [facility] 7t [place] [address] Care Team Providers Care Risk Control Product Liability Director Name Role Phone Angela Luz MD Primary Care Provide r Ninfa Dietrich PharmD Unavailable Reason for Visit * Reason Comments Med Refill Encounter Details Date Type Department Care Team (Late st Contact Info) Description 09/06/2023 Refill [facility] [address] [place], [place] [phone] Angela Luz MD [address] [place], [place] [phone] Type 2 diabetes mellitus with other specified complication, unspecified whether termite treater helper insulin use ([facility]) Social History Tobacco Use Types Packs/Day [...] Description 10/17/2024 10:00 AM EDT Clinical Support [address] [address] Nazia Martins RN 10/21/2024 10:00 AM EDT Medication Management [address] [address] Ninfa Dietrich, PharmD [address] [place] [address] 10/28/2024 9:00 AM EDT Office Visit [address] [address] Angela Luz MD [address] [place] [address] documented as of this encounter Goals Goal [...] with other specified complication, unspecified whether termite treater helper insulin use ([facility]) documented in this encounter Care Teams Risk Control Product Liability Director Relationship Specialty Start Date End Date Angela Luz MD [address] [place] [address] PCP - General Family Medicine 10/27/20 Ninfa Dietrich PharmD [address] [place] [address] Pharmacist Internal Medicine 11/10/23 [employer] 12/20/23 documented as of this encounter
--- OUTSIDE RECORDS SUMMARY | 2024-09-25 10:22 | XMS_ITS | Encounter Summary ---
Author Organization [employer] Address [address] [facility] [address] 7t [place] [address] Care Team Providers Care Neck Band Setter Name Role Phone Angela Luz MD Primary Care Provide r Ninfa Dietrich PharmD Unavailable Reason for Visit * Reason Comments Med Refill Encounter Details Date Type Department Care Team (Late st Contact Info) Description 02/15/2024 Refill [facility] [address] [place], [place] [phone] Angela Luz MD [address] [place], [place] [phone] Seasonal allergic rhinitis, unspecified trigger Social History [...] Description 10/17/2024 10:00 AM EDT Clinical Support [address] [address] Nazia Martins RN 10/21/2024 10:00 AM EDT Medication Management [address] [address] Ninfa Dietrich, PharmD [address] [place] [address] 10/28/2024 9:00 AM EDT Office Visit [address] [address] Angela Luz MD [address] [place] [address] documented as of this encounter Goals Goal [...] trigger documented in this encounter Care Teams Neck Band Setter Relationship Specialty Start Date End Date Angela Luz MD [address] [place], [place] [phone] PCP - General Family Medicine 10/27/20 Ninfa Dietrich, LauraD [address] [place] [address] Pharmacist Internal Medicine 11/10/23 [employer] 12/20/23 documented as of this encounter
--- OUTSIDE RECORDS SUMMARY | 2024-09-25 10:22 | XMS_ITS | Encounter Summary ---
Author Organization [facility] Address [address] [place] [address] Care Team Providers Care Register Of Wills Name Role Phone Angelica Guerra MD Primary Care Provider Unava ilable Angelica Guerra MD Unavailable Unavailable Stacie Easton PA-C Unavailable Mahesh Acevedo NP Unavailable [phone] [facility], Pcp Primary Care Provider Unavailabl e Encounter Details Date Type Department Care Team Description 06/16/2018 [facility] Medical Records [address] [place] [address] [facility] Social History Tobacco Use Types Packs/Day Years [...] on filedocumented in this encounter Care Teams Register Of Wills Relationship Specialty Start Date End Date Angelica Guerra MD PCP - General Internal Medicine 03/02/17 08/01/21 [facility] Pcp PCP - General Internal Medicine 08/02/21 Angelica Guerra MD 02/10/17 Stacie Easton PA-C Specialist Cardiology 8/5/21 Mahesh Acevedo NP Specialist Cardiology 12/24/20 documented as of this encounter
--- OUTSIDE RECORDS SUMMARY | 2024-09-25 10:22 | XMS_ITS | Encounter Summary ---
Author Organization [facility] Address [address] [place] [address] Care Team Providers Care Cupola Melter Name Role Phone Angelica Guerra MD Primary Care Provider Unava ilable Angelica Guerra MD Unavailable Unavailable Stacie Easton PA-C Unavailable Mahesh Acevedo NP Unavailable [phone] [facility], Pcp Primary Care Provider Unavailabl e Encounter Details Date Type Department Care Team Description 06/16/2020 Non Linear Editor Report Medical Records [address] [place] [address] Nabeel March MD Social History Tobacco Use [...] on filedocumented in this encounter Care Teams Cupola Melter Relationship Specialty Start Date End Date Angelica Guerra MD PCP - General Internal Medicine 03/02/17 08/01/21 [facility], Pcp PCP - General Internal Medicine 08/02/21 Angelica Guerra MD 02/10/17 Stacie Easton PA-C Specialist Cardiology 12/24/20 Mahesh Acevedo NP Specialist Cardiology 12/24/20 documented as of this encounter
--- OUTSIDE RECORDS SUMMARY | 2024-09-25 10:22 | XMS_ITS | Encounter Summary ---
Author Organization [employer] [facility] Address [address] [place] [address] Care Team Providers Care Sammying Machine Operator Name Role Phone Angelica Guerra MD Primary Care Provider Unava ilable Angelica Guerra MD Unavailable Unavailable Stacie Easton PA-C Unavailable Mahesh Acevedo NP Unavailable [phone] [facility], Pcp Primary Care Provider Unavailabl e Encounter Details Date Type Department Care Team Description 05/04/2018 Instructional Resource Teacher Report Medical Records [address] [place] [address] Abstract, Provider Social History Tobacco Use Types [...] on filedocumented in this encounter Care Teams Sammying Machine Operator Relationship Specialty Start Date End Date Angelica Guerra MD PCP - General Internal Medicine 03/02/17 08/01/21 [facility], Pcp PCP - General Internal Medicine 08/02/21 Angelica Guerra MD 02/10/17 Stacie Easton PA-C Specialist Cardiology 12/24/20 Mahesh Acevedo NP Specialist Cardiology 12/24/20 documented as of this encounter
--- OUTSIDE RECORDS SUMMARY | 2024-09-25 10:22 | XMS_ITS | Encounter Summary ---
Author Organization [employer] Address [address] [facility] 7t [place] [address] Care Team Providers Care Recreational Facilities Motel Manager Name Role Phone Angela Luz MD Primary Care Provide r Ninfa Dietrich PharmD Unavailable Reason for Visit * Reason Comments Med Refill Encounter Details Date Type Department Care Team (Late st Contact Info) Description 08/29/2024 Refill [facility] [address] [place], [place] [phone] Ninfa Dietrich, PharmD [address] [place], [place] [phone] Type 2 diabetes mellitus with hyperglycemia, with long-term current use of insulin ([facility]) Social History Tobacco Use Types Packs/Day Years [...] Telephone Encounter - Ninfa Dietrich PharmD - 08/30/2024 10:12 AM EDT Prescription is currently waiting for pickup and has 11 remaining refills. documented in this encounter Plan of Treatment Upcoming Encounters Date Type Department Care Team (Late st Contact Info) Description 10/17/2024 10:00 AM EDT Clinical Support [facility] [address] [place] [address] Nazia Martins RN 10/21/2024 10:00 AM EDT Medication Management [facility] [address] [place] [address] Ninfa Dietrich PharmD [address] [place] [address] 10/28/2024 9:00 AM EDT Office Visit [facility] [address] [place] [address] Angela Luz MD [address] [place] [address] documented as of this encounter Goals Goal [...] hyperglycemia, with long-term current use of insulin ([facility]) documented in this encounter Care Teams Recreational Facilities Motel Manager Relationship Specialty Start Date End Date Angela Luz MD [address] [place] [address] PCP - General Family Medicine 10/27/20 Ninfa Dietrich, LauraD [address] [place] [address] Pharmacist Internal Medicine 11/10/23 [employer] 12/20/23 documented as of this encounter
--- OUTSIDE RECORDS SUMMARY | 2024-09-25 10:22 | XMS_ITS | Encounter Summary ---
Author Organization [employer] Address [address] [facility] 7t [place] [address] Care Team Providers Care Hot Dip Plating Supervisor Name Role Phone Angela Luz MD Primary Care Provide r Ninfa Dietrich PharmD Unavailable Reason for Visit * Reason Comments Med Refill Encounter Details Date Type Department Care Team (Late st Contact Info) Description 08/22/2024 Refill [facility] [address] [place], [place] [phone] Angela Luz MD [address] [place], [place] [phone] Diabetic polyneuropathy associated with type 2 diabetes [...] Description 10/17/2024 10:00 AM EDT Clinical Support [facility] [address] [place] [address] Nazia Martins RN 10/21/2024 10:00 AM EDT Medication Management [facility] [address] [place] [address] Ninfa Dietrich, LauraD [address] [place] [address] 10/28/2024 9:00 AM EDT Office Visit [facility] [address] [place] [address] Angela Luz MD [address] [place] [address] documented as of this encounter Goals Goal [...] (CMS/HCC) documented in this encounter Care Teams Hot Dip Plating Supervisor Relationship Specialty Start Date End Date Angela Luz MD [address] [place] [address] PCP - General Family Medicine 10/27/20 Ninfa Dietrich PharmD [address] [place] [address] Pharmacist Internal Medicine 11/10/23 [employer] 12/20/23 documented as of this encounter
--- OUTSIDE RECORDS SUMMARY | 2024-09-25 10:22 | XMS_ITS | Encounter Summary ---
Author Organization [facility] Address [address] [place] [address] Care Team Providers Care Strainer Tender Name Role Phone Angelica Guerra MD Primary Care Provider Unava ilable Angelica Guerra MD Primary Care Provider Unava ilable Lucia Montes Primary Care Provider Unavailab le Angelica Guerra MD Primary Care Provider Unava ilAngelica Killian MD Unavailable Unavailable Angelica Guerra MD Unavailable Unavailable Stacie Easton PA-C Unavailable Mahesh Acevedo NP Unavailable [phone] [facility], Pcp Primary Care Provider Unavailabl e Reason for Visit * Reason Onset Date Comments refill request 02/24/2012 Encounter Details Date Type Department Care Team Description 02/24/2012 Refill Physiatry - [address] [address] Ifrah Mccoy PA-C refill request Social History Tobacco Use Types Packs/Day Years Used Date Smoking Tobacco: Never Smokeless Tobacco: Never Alcohol Use Standard Drinks/Week Comments No 0 (1 standard drink = 0.6 oz pur e alcohol) Sex Assigned at Date Recorded Not on file documented as of this encounter Miscellaneous Notes * Telephone Encounter - Thu Sousa - 02/24/2012 10:44 AM EDT All of the medications requested were on the CURRENT MEDS list Did you check the Pharmacy information above?: NO Patient wants: 30 -day supply Is this a mail order prescription request ? NO Indicate how soon the patient needs the script: BY THE END OF THE DAY Patient would like script to be: PLACED IN PATIENT NAVAL ENGINEER If the patients Provider is not in tell the patient that the covering provider will get the request. Patients current insurance carrier is: Payor: [email or web address] FFS Plan: FFS HMO $0 [id number] Product Type: MEDICAID RISK documented in this encounter Plan of Treatment Not on file documented as of this encounter Visit Diagnoses Not on filedocumented in this encounter Care Teams Strainer Tender Relationship Specialty Start Date End Date Angelica Guerra MD PCP - General 02/10/11 06/24/15 Angelica Guerra MD PCP - General 06/25/15 02/09/17 Lucia Montes PCP - General Internal Medicine 02/10/17 03/01/17 Angelica Guerra MD PCP - General Internal Medicine 03/02/17 08/01/21 [facility] Pcp PCP - General Internal Medicine 08/02/21 Angelica Guerra MD 06/25/15 02/09/17 Angelica Guerra MD 02/10/17 Stacie Easton PA-C Specialist Cardiology 12/24/20 Mahesh Acevedo NP Specialist Cardiology 12/24/20 documented as of this encounter
--- OUTSIDE RECORDS SUMMARY | 2024-09-25 10:22 | XMS_ITS | Encounter Summary ---
Author Organization [facility]ine [facility] Address [address] [place] [address] Care Team Providers Care Machine Adjuster Name Role Phone Angelica Guerra MD Primary Care Provider Unava ilable Angelica Guerra MD Unavailable Unavailable Stacie Easton PA-C Unavailable Mahesh Acevedo NP Unavailable [phone] [facility], Pcp Primary Care Provider Unavailabl e Reason for Visit * Reason Onset Date Comments Faxed Refill 06/05/2020 Encounter Details Date Type Department Care Team Description 06/05/2020 Refill Adult Medicine [address] [address] Angelica Guerra MD Faxed Refill Social History Tobacco Use Types Packs/Day Years Used Date Smoking Tobacco: Former Smokeless Tobacco: Never Alcohol Use Standard Drinks/Week Comments No 0 (1 standard drink = 0.6 oz pur e alcohol) Sex Assigned at Date Recorded Not on file documented as of this encounter Miscellaneous Notes * Telephone Encounter - Kay Velasquez M.A. - 06/08/2020 12:04 PM EST [facility]EN[facility] 12/05/2019 telehealth F/U appt 06/24/2020 30 day supply pending med f/u appt * Telephone Encounter - Missy Salcidochace - 06/05/2020 3:11 PM EST Patient would like script to be: E-PRESCRIBED/FAXED TO PHARMACY ?? WHEN WAS THE PATIENT'S LAST APPOINTMENT IN ADULT MEDICINE? 03/24/20 ?? WHEN WAS THE LAST TIME THE PATIENT SAW THEIR PCP? Same as above ?? Does patient have an upcoming appointment? Yes 06/24/20 ?? (THE MEDICATION REQUESTED IS ON THE MED LIST ABOVE) All of the medications requested were on the CURRENT MEDS list ?? Did you check the Pharmacy information above?: YES ?? Patient wants: 30 -day supply ?? Is this a mail order prescription request ? NO ?? If the refill is from a FAXED refill request what is the RX # listed on the fax? N/A ?? Patients current insurance carrier is: Payor: [facility] MCR / Plan: [facility] $0 [facility] [id number] / Product Type: HMO [id number] ?? documented in this encounter Plan of Treatment Not on file documented as of this encounter Visit Diagnoses Not on filedocumented in this encounter Care Teams Machine Adjuster Relationship Specialty Start Date End Date Angelica Guerra MD PCP - General Internal Medicine 03/02/17 08/01/21 [facility], Pcp PCP - General Internal Medicine 08/02/21 Angelica Guerra MD 02/10/17 Stacie Easton PA-C Specialist Cardiology 12/24/20 Mahesh Acevedo NP Specialist Cardiology 12/24/20 documented as of this encounter
--- OUTSIDE RECORDS SUMMARY | 2024-09-25 10:22 | XMS_ITS | Encounter Summary ---
Author Organization [employer] [facility] Address [address] [place] [address] Care Team Providers Care Telemarketer Name Role Phone Angelica Guerra MD Primary Care Provider Unava ilable Angelica Guerra MD Unavailable Unavailable Stacie Easton PA-C Unavailable Mahesh Acevedo NP Unavailable [phone] [facility], Pcp Primary Care Provider Unavailabl e Encounter Details Date Type Department Care Team Description 02/24/2021 Welfare Specialist Report Medical Records [address] [place] [address] Raudel Castaneda MD Social History Tobacco Use [...] on filedocumented in this encounter Care Teams Telemarketer Relationship Specialty Start Date End Date Angelica Guerra MD PCP - General Internal Medicine 03/02/17 08/01/21 [facility], Pcp PCP - General Internal Medicine 08/02/21 Angelica Guerra MD 02/10/17 Stacie Easton PA-C Specialist Cardiology 12/24/20 Mahesh Acevedo NP Specialist Cardiology 12/24/20 documented as of this encounter
--- OUTSIDE RECORDS SUMMARY | 2024-09-25 10:22 | XMS_ITS | Encounter Summary ---
Author Organization [facility] Address [address] [place] [address] Care Team Providers Care Cathead Operator Name Role Phone Angelica Guerra MD Primary Care Provider Unava ilable Lucia Montes Primary Care Provider Unavailab le Angelica Guerra MD Primary Care Provider Unava ilable Angelica Guerra MD Unavailable Unavailable Angelica Guerra MD Unavailable Unavailable Stacie Easton PA-C Unavailable [facility] NP Unavailable [phone] [facility], Pcp Primary Care Provider [facility] Encounter Details Date Type Department Care Team Description 08/09/2016 Controlled Substance Plan Medical Records [address] [place] [phone] Abstract, Provider Social History Tobacco Use Types [...] on filedocumented in this encounter Care Teams Cathead Operator Relationship Specialty Start Date End Date Angelica Guerra MD PCP - General 06/25/15 02/09/17 Lucia Montes PCP - General Internal Medicine 02/10/17 03/01/17 Angelica Guerra MD PCP - General Internal Medicine 03/02/17 08/01/21 [facility], Pcp PCP - General Internal Medicine 08/02/21 Angelica Guerra MD 06/25/15 02/09/17 Angelica Guerra MD 02/10/17 Stacie Easton PA-C Specialist Cardiology 12/24/20 Mahesh Acevedo NP Specialist Cardiology 12/24/20 documented as of this encounter
--- OUTSIDE RECORDS SUMMARY | 2024-09-25 10:22 | XMS_ITS | Encounter Summary ---
Author Organization [facility] Address [address] [place] [address] Care Team Providers Care Radar Engineer Name Role Phone Angelica Guerra MD Primary Care Provider Unava ilable Angelica Guerra MD Unavailable Unavailable Stacie Easton PA-C Unavailable Mahesh Acevedo NP Unavailable [phone] [facility] Primary Care Provider Unavailabl e Reason for Visit * Reason Onset Date Comments Prior Authorization 03/31/2020 Encounter Details Date Type Department Care Team Description 03/31/2020 Telephone Adult [address] [address] Angelica Guerra MD Prior Authorization Social History [...] from 04/02/2020 until 04/02/2021 Approval faxed to [facility] at [phone] * Telephone Encounter - Stacie Chamorro M.A. - 04/02/2020 12:19 PM EST Elly from [facility] called looking for more information. Pt has tried breo and airduo. * Telephone Encounter - Nalini Mustafa M.A. - 04/01/2020 11:29 AM EST Prior auth done by form to [facility] for symbicort Dx moderate persistent asthma J45.40 [...] What Pharmacy did the fax come from: [facility] Pharmacy fax #: [phone] [employer] Information from fax: What Prescription Plan does the patient have? N/a BIN/PCN if applicable: n/a Cardholder ID:n/a Person Code: n/a Relationship Code: n/a Help desk phone: n/a documented in this encounter Plan of Treatment Not on file documented as of this encounter Visit Diagnoses Not on filedocumented in this encounter Care Teams Radar Engineer Relationship Specialty Start Date End Date Angelica Guerra MD PCP - General Internal Medicine 03/02/17 08/01/21 [facility] PCP - General Internal Medicine 08/02/21 Angelica Guerra MD 02/10/17 Stacie Easton PA-C Specialist Cardiology 12/24/20 Mahesh Acevedo NP Specialist Cardiology 12/24/20 documented as of this encounter
--- OUTSIDE RECORDS SUMMARY | 2024-09-25 10:22 | XMS_ITS | Encounter Summary ---
Author Organization [facility] Address [address] [place] [address] Care Team Providers Care Forming Yardage Control Operator Name Role Phone Angelica Guerra MD Primary Care Provider Unava ilable Angelica Guerra MD Unavailable Unavailable Stacie Easton PA-C Unavailable Mahesh Acevedo NP Unavailable [phone] [facility], Pcp Primary Care Provider Unavailabl e Encounter Details Date Type Department Care Team Description 08/11/2020 [facility] Medical Records [address] [place] [address] Abstract, Provider Social History Tobacco Use Types [...] on filedocumented in this encounter Care Teams Forming Yardage Control Operator Relationship Specialty Start Date End Date Angelica Guerra MD PCP - General Internal Medicine 03/02/17 08/01/21 [facility]cp PCP - General Internal Medicine 08/02/21 Angelica Guerra MD 02/10/17 Stacie Easton PA-C Specialist Cardiology 12/24/20 Mahesh Acevedo NP Specialist Cardiology 12/24/20 documented as of this encounter
--- OUTSIDE RECORDS SUMMARY | 2024-09-25 10:22 | XMS_ITS | Encounter Summary ---
Author Organization [facility] Address [address] [place] [address] Care Team Providers Care Filler Mixer Name Role Phone Angelica Guerra MD Primary Care Provider Unava ilable Angelica Guerra MD Primary Care Provider Unava ilable Lucia Montes Primary Care Provider Unavailab le Angelica Guerra MD Primary Care Provider Unava ilable Angelica Guerra MD Unavailable Unavailable Angelica Guerra MD Unavailable Unavailable Stacie Easton PA-C Unavailable [facility] NP Unavailable [phone] [facility], Pcp Primary Care Provider Unavailabl e Encounter Details Date Type Department Care Team Description 06/04/2012 Release of Information Medical Records [address] [place] [id number] Abstract, Provider Social History Tobacco Use Types [...] on filedocumented in this encounter Care Teams Filler Mixer Relationship Specialty Start Date End Date Angelica Guerra MD PCP - General 02/10/11 06/24/15 Angelica Guerra MD PCP - General 06/25/15 02/09/17 Lucia Montes PCP - General Internal Medicine 02/10/17 03/01/17 Angelica Guerra MD PCP - General Internal Medicine 03/02/17 08/01/21 [facility], [facility] PCP - General Internal Medicine 08/02/21 Angelica Guerra MD 06/25/15 02/09/17 Angelica Guerra MD 02/10/17 Stacie Easton PA-C Specialist Cardiology 12/24/20 Mahesh Acevedo NP Specialist Cardiology 12/24/20 documented as of this encounter
--- OUTSIDE RECORDS SUMMARY | 2024-09-25 10:23 | XMS_ITS | Data Portability ---
Author Organization [employer] [place] [employer] [facility] [employer] Address [address] [place] [id number] Care Team Providers Care Communications Maintainer Name Role Phone [facility] Referring Provider Assessment Encounter Date [...] Go To The Location Of Their Choice, [address] 11:32:54 Referral None recorded. Procedures None recorded. Surgeries None recorded. Imaging None recorded. Medication Orders torsemide 40 mg tablet 2021 [facility], [address] [place] [address], [id number], 14:01:21 valacyclovi r 1 gram tablet 2021 [facility], [address] [place] [address], [id number], 15:01:13 Patient TargetsNo targets recorded. Patient InstructionsNo instructions recorded. Reason for Referral None Reported. Medical Equipment None Reported. Allergies Allergen ID Allergen Name Allergen Category Reaction Reaction Severity Criticality Documentation Date Start Date Code Code System Note Provider Name and Address Organization Details Recorded Time 8628 latex environme nt,medica tion Not available Not available Not available 03/19/2024 98384 91 RxNorm Not Available [employer] - production [...] % 65 /min 65 /min 12 /min 60502.7 2 g 98.4 [degF] 98 % 98 % 146 mm[Hg] 52 mm[Hg] 146 mm[Hg] 52 mm[Hg] Not Available [employer] - production 11:35:05 Date Recorded Respiratory rate Heart rate Oxygen saturation Oxygen saturation in Arterial blood by Pulse oximetry Body temperature Systolic blood pressure Diastolic blood pressure Provider Name and Address Organization Details Last Updated DateTime 2 18 /min 62 /min 97 % 97 % 98.1 [degF] 135 mm[Hg] 86 mm[Hg] Not Available [employer] - production 13:40:32 Social History None recorded. [...] 366 Pete Cunha MD Main - [facility] [address] [place] [phone] 07/27/2021 13:19:49 01/21/2022 11:58:08 Fatigue 63488267 R53.83 5473 Kanchan Meza MD Main - [facility] [address] [place] [phone] 04/11/2022 11:34:58 04/13/2022 12:51:20 Herpes zoster 4716702 B02.9 5556 Remi Ríos MD Main - [address] [phone] 04/13/2022 13:40:15 04/15/2022 10:51:28 Chronic systolic heart failure [id number] I50.22 This 66-year-ol d female with a history of type 2 diabetes and [facility] [...] renato due to type 2 diabetes mellitus [id number] [address]1530 E11.65 This 66-year-ol d female with poorly [...] Recorded Advance Directives Directive None Recorded Payers Insurance Date Sequence Insurance Name Policy Number Policy Jin Covered Member ID Jin Member ID Guarantor Name 10/21/2023 1 [facility] - DOS PRIOR TO 2022 - DUAL ELIGIBLE (MEDICARE REPLACEMENT/AD VANTAGE - HMO) Angela Mtz Alberto Moreno [id number] Teresa Alberto Moreno 10/21/2023 1 [facility] - DOS ON OR AFTER 2022 - DUAL ELIGIBLE - SNF OPTIONS AND ONE CARE (MEDICARE REPLACEMENT/AD VANTAGE - HMO) Angela Alberto Moreno [id number] Angela Mtz Alberto Moreno Notes Date Note Type Note Provider Name [...] increased LE swelling. Pete Cunha MD [address] [facility], [place], [address], [employer] 07/27/2021 15:37:23 04/11/2022 text/html HPI: 66 y/o [...] ................... ................... ................... ................... ................... ................... ........ River Driver Note: Dispatched to the home of 66-year-old [...] ................... ........ Disposition: Fulfilled Kanchan Meza MD [address] [place] [address],[address] [facility], [place], [address], [employer] 04/13/2022 09:19:05 04/13/2022 text/html HPI: This RN who has not seen member with hx. of CHF since 12/22/21 received call from member's daughter Nora, who reports member has had a 5lb. weight gain in the past 2 days with some increased SOB. Daughter did call global cto who is not in the office. ................... ................... ................... ................... ................... ................... ................... ........ CRC Nursing Assessment: Comments: CRC RN DID NOT NEED FURTHER INFO Remi Ríos MD [address] [facility], [place], [address], [employer] 04/13/2022 13:53:09 OBGyn Episode No OBEpisode recorded.
--- OUTSIDE RECORDS SUMMARY | 2024-09-25 10:23 | XMS_ITS | Clinical Summary ---
Author Organization [facility] Address [address] [place] [address] Care Team Providers Care Nissan Sales Consultant Name Role Phone Angela Luz MD [...] before bedtime. 180 tablet 3 05/08/2023 Active Farxiga 10 MG tablet TAKE 1 TABLET BY MOUTH EVERY MORNING 90 tablet 3 05/01/2024 Active torsemide (DEMADEX) 20 MG tabletIndicatio ns:Hypertension ,Type 2 diabetes mellitus with diabetic chronic kidney disease (HCC),Anemia in chronic kidney disease,Iron deficiency anemia, not otherwise specified TAKE 1 TABLET BY MOUTH TWICE DAILY IN THE MORNING AND IN THE EVENING 180 tablet 2 06/27/2024 Active calcitriol (ROCALTROL) 0.25 MCG capsule TAKE 1 CAPSULE BY MOUTH EVERY OTHER DAY IN THE MORNING 45 capsule 07/30/2024 Active Active Problems Problem Noted Date Diagnosed [...] (severe) Chronic kidney disease, stage 4 (severe) 021 Type 2 diabetes mellitus wit h diabetic [...] 06/11/2012 Overview (07/20/2020): 01/[address] in [place]. Last CT (abd) 06/02/12 - 5x7 pulm nodule, recommended rpt CT to confirm 2 years of stability. Obstructive sleep apnea 01/31/2012 08/2 07/2020 Restless legs 10/06/2011 01/11/2021 Glaucoma 02/15/2011 01/11/2021 Hyperlipidemia 02/15/2011 01/11/2021 Encounters Date Type Department Care Team Description 08/05/2024 1:00 PM EDT Office Visit [facility] [address] [place] [address] Beau Vargas MD Stage 3b chronic kidney disease (HCC) (Primary Dx); Type 2 diabetes mellitus with diabetic chronic kidney disease (HCC); Renal osteodystrophy; Anemia in chronic kidney disease 07/30/2024 Refill [facility] [address] [place] [address] Beau Vargas MD from Last 3 Months Immunizations Immunization Administration [...] Visit [facility] [address] [place] [address] Beau Vargas MD [address] [facility] [address] [place] [phone] Health Maintenance Due Date Last Done Comments [...] Completed 06/28/2023, 03/30/2021, 05/08/2017, Additional history exists Pneumococcal Vaccine: Peds ( 0 to 5 Years) and At-Risk Patients (6 to 49 Years) Discontinued 06/28/2023, 03/30/2021, 05/08/2017, Additional history exists Influenza [...] Vargas MD LAB URINE ORDERABLES Final Re sul Performing Organization Address [facility] de Phone Number [place] See order comments [place] [address] * Albumin, urine, random (07/30/2024 9:39 AM [...] Vargas MD LAB URINE ORDERABLES Final Re [facility] Performing Organization Address [facility] Phone Number [place] See order comments [place] [address] * (ABNORMAL) Urinalysis with microscopic (07/30/2024 9:39 AM EDT) Color Urine Yellow See orde r comments Appearance Urine Cloudy See order comments pH Urine 5.5 5.0 - 9.0 See order comments Glucose Urine >=1000(A) Negative mg/dL See order comments Blood, Urine Negative Negative See ord er comments Specific [place] Urine 1.015 1.005 - 1.025 See order [...] ORDERABLES Final Re sult Performing Organization Address [facility] de Phone Number [place] See order comments [place] [address] * (ABNORMAL) Urinalysis (07/30/2024 9:39 AM EDT) Color Urine Yellow See orde r comments Appearance Urine Cloudy See order comments pH Urine 5.5 5.0 - 9.0 See order comments Glucose Urine >=1000(A) Negative mg/dL See order comments Blood, Urine Negative Negative See ord er comments Specific [place] Urine 1.015 1.005 - 1.025 See order comments Protein Urine Negative Neg-Trace mg/dL See order comments Ketones, Urine Negative Negative mg/dL See order comments Nitrite, Urine Negative Negative See o rder comments Leukocyte Esterase Urine Moderate (2+)(A) Negative See order comments 07/30/2024 9:39 AM EDT 07/30/2024 9:39 AM EDT Beau Vargas MD LAB URINE ORDERABLES Final Re sult Performing Organization Address [facility] de Phone Number [place] See order comments [place] [address] * (ABNORMAL) PTH, Intact (07/30/2024 8:25 AM EDT) Parathyroid Hormone, Intact 475.0(H) 8.7 - 77.1 pg/mL See order comments 07/30/2024 8:25 AM EDT 07/30/2024 8:25 AM EDT Beau Vargas MD LAB YUEHUGOSIC-[id number] SOLICITED RESULTS Final Result Performing Organization Address [facility] de Phone Number [place] See order comments [place] [address] * Iron Panel (Fe, TIBC, TSAT) (07/30/2024 [...] ORDERABLES Final Re sult Performing Organization Address [facility] de Phone Number [place] See order comments [place] [address] * (ABNORMAL) Vitamin D 25 Hydroxy (07/30/2024 8:25 AM EDT) Pathologist [facility] Vitamin D, 25-Hydroxy 28.3(L) >30 ng/mL See [...] ORDERABLES Final Re sult Performing Organization Address [facility] de Phone Number [place] See order comments [place] [address] * (ABNORMAL) CBC and Differential (07/30/2024 8:25 [...] ORDERABLES Final Re sult Performing Organization Address [facility] Phone Number [place] See order comments [place] [address] * Phosphorus (07/30/2024 8:25 AM EDT) Phosphorus, Serum 4.0 2.7 - 4.5 mg/dL See order comments 07/30/2024 8:25 AM EDT 07/30/2024 8:25 AM EDT us Beau Vargas MD LAB BLOOD ORDERABLES Final Re sult Performing Organization Address [facility] Phone Number [place] See order comments [place] [address] * Magnesium (07/30/2024 8:25 AM EDT) Magnesium 2.1 1.6 - 2.6 mg/dL See order comments 07/30/2024 8:25 AM EDT 07/30/2024 8:25 AM EDT us Beau Vargas MD LAB BLOOD ORDERABLES Final Re sult Performing Organization Address [facility] Phone Number [place] See order comments [place] [address] * (ABNORMAL) Ferritin (07/30/2024 8:25 AM EDT) Ferritin 398(H) 10 - 250 ng/mL See order comments 07/30/2024 8:25 AM EDT 07/30/2024 8:25 AM EDT us Beau Vargas MD LAB BLOOD ORDERABLES Final Re sult Performing Organization Address [facility] Phone Number [place] See order comments [place] [address] * Lipid panel (07/30/2024 8:25 AM EDT) [...] MD LAB BLOOD ORDERABLES Final Re sult [id number] See order comments [place] [address] * (ABNORMAL) Comprehensive Metabolic Panel (07/30/2024 8:25 [...] EDT 07/30/2024 8:25 AM EDT us Beau Vargsa MD LAB BLOOD ORDERABLES Final Re sult [place] See order comments [place] [address] from Last 3 Months Insurance [facility] ([id number]) [facility] ([id number]) Care Teams Nissan Sales Consultant Relationship Specialty Start Date End Date Angela Luz MD [address] [place] [address] [place] [phone] PCP - General Internal Medicine 01/12/21
== END 2024-09-25 09:57 | disposition home or self-care (01) ==
LOC: HO.HOS 09:31
PROVIDERS: PCP Internal Medicine; Visit Provider Orthopaedic Surgery
DX: M25.512 Pain in left shoulder (principal)
CPT/HCPCS: 20610; 99213

== ENCOUNTER → 2024-09-25 09:30 | Outpatient (BNVA) | payer OTHER, SELFPAY | PROVIDERS: PCP Internal Medicine; Visit Provider Orthopaedic Surgery | DX: M25.512 Pain in left shoulder (principal) | CPT/HCPCS: 20610; 99212; J1010; J2003 ==

== ENCOUNTER 2024-10-18 07:37 | Outpatient (REF) | payer OTHER, SELFPAY ==
[2024-10-18 08:06] LABS: MANUAL DIFF FLAG NO
[2024-10-18 08:18] LABS: Basophils Absolute Auto 0.1 X10*3/uL (0.0-0.2); Basophils Percent Auto 1.2 % (0-2); Eosinophils Absolute Auto 0.2 X10*3/uL (0.0-0.4); Hematocrit 31.6 % (37.0-47.0); Hemoglobin 10.6 g/dl (12.0-16.0); Imm Gran Abs Auto 0.03 X10*3/uL (0.00-0.03); Imm Gran Pct Auto 0.7 % (0.0-0.4); Lymphocytes Absolute Auto 1.1 X10*3/uL (1.2-4.9); Lymphocytes Percent Auto 25.1 % (20-40); Mean Corpuscular HGB Conc 33.5 g/dl (31.0-35.0); Mean Corpuscular Volume 86.3 fL (80.0-98.0); Mean Platelet Volume 9.5 fL (9.4-12.3); Monocytes Absolute Auto 0.4 X10*3/uL (0.1-1.2); Neutrophils Absolute Auto 2.4 x10*3/uL (2.0-8.3); Platelet Count 137 X10*3/uL (160-400); Red Blood Count 3.66 X10*6/uL (4.20-5.50); Red Cell Distribution Width 13.1 % (11.0-16.0); White Blood Count 4.2 X10*3/uL (4.8-10.8)
[2024-10-18 08:58] LABS: Albumin Level 3.8 g/dL (3.5-5.0); Anion Gap 12 (12-20); Blood Urea Nitrogen 64 mg/dL (9-16); Calcium 9.4 mg/dL (8.4-10.2); Carbon Dioxide 27 mmol/L (22-29); Chloride 105 mmol/L (96-108); Estimated Glomerular Filt Rate 25; Magnesium 2.1 mg/dL (1.6-2.6); Phosphorus 2.8 mg/dL (2.7-4.5); Potassium 4.3 mmol/L (3.3-5.1); Sodium 140 mmol/L (135-145)
[2024-10-18 09:01] LABS: Appearance Urine Clear; Color Urine Yellow; Glucose Urine UA >=1000 mg/dL (Negative); Leukocyte Esterase Urine Moderate (2+) (Negative); Nitrite Urine Negative (Negative); PH 5.5 (5.0-9.0); Specific Gravity - Urine 1.015 (1.005-1.025); UMIC TRIGGER UA YES; Urine Blood Negative (Negative); Urine Ketones Negative (Negative); Urine Protein Negative (Neg-Trace)
[2024-10-18 09:03] LABS: Bacteria Urine Trace (None Seen); Hyaline Casts Urine 0-2 /LPF (0-2); RBC Urine 0-2 /HPF (0-2)
[2024-10-18 09:19] LABS: Vitamin D 25-OH Total 28.4 ng/mL (>30)
[2024-10-18 09:43] LABS: Creatinine Urine 66.56 mg/dL; Microalbumin Urine < 5.0 mg/L; Total Protein Urine Random < 7 mg/dL (<12)
== END 2024-10-18 07:38 | disposition home or self-care (01) ==
LOC: HO.LAB 07:37
PROVIDERS: PCP Internal Medicine; Visit Provider Internal Medicine Nephrology
DX: N18.32 Chronic kidney disease, stage 3b (principal); E11.22 Type 2 diabetes mellitus with diabetic chronic kidney disease; N25.0 Renal osteodystrophy; D63.1 Anemia in chronic kidney disease
CPT/HCPCS: 36415; 80051; 81001; 82040; 82043; 82306; 82310; 82565; 82570; 83735; 83970; 84100; 84156; 84520; 85025; 87086

== ENCOUNTER 2024-11-11 14:38 | Outpatient (AMB) | payer OTHER, SELFPAY ==
[2024-11-11 14:46] VITALS: BP 126/50; PULSE 61; O2SAT 97; BMI 29.6
--- NOTE | 2024-11-11 14:46 | MHC.OFFVIS ---
Vital Signs 11/11/24 14:46 Height 4 ft 9 in Weight 136 lb 10.986 oz BMI 29.6 BP 126/50 L Blood Pressure Location Lt brachial Position Sitting Pulse 61 Pulse Source Pulse Oximeter Pulse Oximetry (%) 97 Oxygen Delivery Method Room Air Intake Visit Reasons: EDG/Colonoscopy Clearance (Dr. Schwartz) Accompanied by: Self / Same As Patient Allergies tramadol (TRAMADOL) Allergy (Severe, Verified 11/11/24 14:49) THROAT, LIPS SWELLING, latex (LATEX) Allergy (Intermediate, Verified 11/11/24 14:49) RASH HPI Comments Details: The patient is a 69-year-old woman known history of asthma in addition to heart disease and breast cancer history.? Apparently her respiratory status has been worsening for the last several years.? She did not have asthma as a child.? Later on in life she started developing asthma like symptoms.? She was started on respiratory therapy.? However, with the current respiratory regimen including Symbicort and her allergy medication and her rescue inhaler she still having shortness of breath.? About a year ago she was diagnosed with breast cancer and did undergo a lumpectomy with radiation therapy.? Currently she is on hormonal therapy.? Appears to have recovered well from that event.? The patient does have lower extremity edema and does have a cardiac condition.? In the meantime the patient has not had any allergy testing or any pulmonary function studies.? She did have a chest x-ray back in April 2020 which I personally reviewed with them.? It appears that she had increased cardiac size but otherwise some postop changes to her right breast.? No evidence of any acute lung disease.? The patient also had blood work at some point which reviewed demonstrating some degree of eosinophilia bringing up the possibility of allergies.? On further questioning she states she has rugs at home.? She denies any past.? She does have a small dog in the house that she has had for about a year.? At this point will try to optimize respiratory therapy likely does have a known asthma component.? However it is likely that her shortness of breath is multifactorial.? Will request additional blood work in addition to her pulmonary function studies. 09/26/2022 the patient is here for a pulmonary up visit. The patient overall is doing well. She continues respiratory therapy with good response. Has not had her to use her rescue inhaler. She does complaint of some right-sided flank discomfort. Denies any pleuritic component. The pain is [id number] severity and is intermittent. Right now it she does not feel it. Will have her get a chest x-ray to make sure. In the meantime she continues use her CPAP every night CPAP therapy continues to be affecting beneficial. She gets supplies regularly. She does use it for more than 4 hours a night. Since we last spoke she has not required any prednisone. She is grieving the loss of her sister and also her knees. This has been very hard for her. 10/13/2023 the patient is here for a pulmonary follow-up visit. The patient overall has been doing well from a respiratory status. Continue the Trelegy inhaler. She does have a rescue inhaler but she typically does not have to use it more than twice a week. She has not had any recent flare-ups. Has not required any prednisone. The patient also has been using the CPAP. The CPAP therapy has been affecting beneficial. She does use it for more than 4 hours a night. She does need to get supplies so therefore I will send a script over to her [employer] [employer]. In the meantime she has struggling with the separation of her of 51 years. Been significant stress for her and her family. 11/11/2024 the patient is here for pulmonary follow-up visit. Overall the patient is doing well. She continues uses CPAP every night. CPAP therapy has been very affecting beneficial. She does use it for more than 4 hours a night. The patient though has an issue with her machine. It broke and is older than 6 years patient should get a replacement APAP machine at this time. I will send a request for replacement APAP to her [employer]. Respiratory joe the patient is doing well on her current respiratory inhalers. Denies having to use her rescue inhaler regularly. The patient is scheduled to undergo a GI procedure both endoscopy and colonoscopy. From a pulmonary standpoint the patient may be able to proceed with anesthesia and her GI procedures without any restrictions. The patient follow-up in 1 year. If any new issues arise the patient will call for an earlier assessment. 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 Dyslipidemia Diabetic nephropathy associated with type 2 diabetes mellitus Diabetic retinopathy associated with type 2 diabetes mellitus Obstructive sleep apnea on CPAP Other and unspecified hyperlipidemia Essential hypertension Type 2 diabetes mellitus with unspecified complications GERD (gastroesophageal reflux disease) (~05/18/23) Breast cancer Depression Diabetes mellitus, type 2 Surgical History (Updated 09/13/24 @ 15:03 by Kayla Low RN) History of liver biopsy Hx of cardiac catheterization Hx of colonoscopy History of esophagogastroduodenoscopy (EGD) History of total abdominal hysterectomy History of cholecystectomy History of shoulder surgery History of 3 sections History of permanent cardiac pacemaker placement Family History Father Diabetes Brother Diabetes Sister Diabetes Mother No known problems Social History Household Members: Spouse and Family Housing: Apartment Are you a primary health care coordinator to a significant other at home: No Do you presently have visiting nurse or other home services: Yes (nurse) Alcohol intake: never Patient Tobacco Use Status: Former Tobacco user Tobacco use type: Cigarette Years Smoked: 12 years e-Cigarette/Vaping Use: Former Use Second Hand Smoke Exposure: No service: No Current occupational status: disabled Sexual orientation: Straight/Heterosexual Review of Systems Const Denies night sweats ENT Denies change in voice, Denies mouth pain, Reports nasal congestion and Reports nasal discharge Card Denies chest pain and Reports dyspnea on exertion Resp Denies chest congestion, Reports cough, Reports dyspnea on exertion and Denies wheezing GI Denies abdominal pain Reports as per HPI Musc Denies no additional complaints Neuro Denies Neuro-related abnormal movements Psych Denies no additional complaints Massimo/Lymph Denies easy bleeding and Denies lymphadenopathy Aller/Immun Denies wheezing Physical Exam Vital Signs: Last Vital Signs Pulse 61 11/11/24 14:46 BP 126/50 L 11/11/24 14:46 Pulse Ox 97 11/11/24 14:46 Oxygen Delivery Method Room Air 11/11/24 14:46 BMI result Body Mass Index 29.6 Const General: alert Neck Neck: Yes normal visual inspection, Yes full ROM and Yes no lymphadenopathy Chest Chest palpation & inspection: normal inspection of the chest Resp Auscultation: no rales, no rhonchi and diminished lung sounds Cardio Rate: regular rate Rhythm: regular rhythm Heart sounds: S1 normal heart sound present and S2 normal heart sound present GI Palpation (GI): Soft to palpation and nontender Auscultation: normal bowel sounds Assessment & Plan Assessment & Plan (1) Asthma: Code(s): J45.909 - Unspecified asthma, uncomplicated Category: Medical Qualifiers: Asthma complication type: uncomplicated Asthma persistence: persistent Asthma severity: moderate Qualified Code(s): J45.40 - Moderate persistent asthma, uncomplicated (2) Dyspnea: Code(s): R06.00 - Dyspnea, unspecified Category: Medical Qualifiers: Dyspnea type: dyspnea on exertion Qualified Code(s): R06.00 - Dyspnea, unspecified (3) Obstructive sleep apnea on CPAP: Code(s): G47.33 - Obstructive sleep apnea (adult) (pediatric); Z99.89 - Dependence on other enabling machines and devices Category: Medical (4) Chronic restrictive lung disease: Code(s): J98.4 - Other disorders of lung Category: Medical Plan Proceed with anesthesia and EGD/colonoscopy Continue Trelegy 200 mcg Continue singulair Continue CPAP therapy, current APAP is broken beyond repeair and will request a replacement APAP Follow-up in 8-12 months Coding Level of Care Code Est Pt Level 4 (03812) Diagnoses Moderate persistent asthma without complication J45.40 Asthma complication type: uncomplicated Asthma persistence: persistent Asthma severity: moderate Dyspnea on exertion R06.00 Dyspnea type: dyspnea on exertion Obstructive sleep apnea on CPAP G47.33; Z99.89 Chronic restrictive lung disease J98.4 Time Spent (min) 16
--- OUTSIDE RECORDS SUMMARY | 2024-11-11 16:12 | XMS_ITS | Data Portability ---
Author Organization [employer] [facility], [place] [employer] [facility] Address [address] [place] [address] Care Team Providers Care Travel Physical Therapist Name Role Phone [facility] Referring Provider Assessment Encounter Date [...] recorded. Lab CBC 2021 022 navjot [facility] (Centralized Electronic Ordering - All Locations), Patient Can Go To The Location Of Their Choice, [address] 11:32:54 Referral None recorded. Procedures None recorded. Surgeries None recorded. Imaging None recorded. Medication Orders torsemide 40 mg tablet 2021 022 [facility], [address] [place] [address], [id number], 14:01:21 valacyclovi r 1 gram tablet 2021 022 [facility], [address] [place] [address], [id number], 15:01:13 Patient TargetsNo targets recorded. Patient InstructionsNo instructions recorded. Reason for Referral None Reported. Medical Equipment None Reported. Allergies Allergen ID Allergen Name Allergen Category Reaction Reaction Severity Criticality Documentation Date Start Date Code Code System Note Provider Name and Address Organization Details Recorded Time 8628 latex environme nt,medica tion Not available Not available Not available 03/19/2024 69073 91 RxNorm Not Available [facility] - production [...] % 65 /min 65 /min 12 /min 78337.7 2 g 98.4 [degF] 98 % 98 % 146 mm[Hg] 52 mm[Hg] 146 mm[Hg] 52 mm[Hg] Not Available [facility] - production 2 11:35:05 Date Recorded Respiratory rate Heart rate Oxygen saturation Oxygen saturation in Arterial blood by Pulse oximetry Body temperature Systolic blood pressure Diastolic blood pressure Provider Name and Address Organization Details Last Updated DateTime 2 18 /min 62 /min 97 % 97 % 98.1 [degF] 135 mm[Hg] 86 mm[Hg] Not Available [facility] - production 2 13:40:32 Social History None recorded. Functional Status [...] 366 Pete Cunha MD Main - [facility] [address] [place] [phone] 07/27/2021 13:19:49 01/21/2022 11:58:08 Fatigue [id number] R53.83 [id number] Kanchan Meza MD Main - [facility] [address] [place] [phone] 04/11/2022 11:34:58 04/13/2022 12:51:20 Herpes zoster [id number] B02.9 [id number] Remi Ríos MD Main - [address] [phone] 04/13/2022 13:40:15 04/15/2022 10:51:28 Chronic systolic heart failure [id number] I50.22 This 66-year-ol d female with a history of type 2 diabetes and [facility] and exertional dyspnea without chest pain. Her EKG was unremarkab le. I ordered Lasix 40 mg IV and I called in a refill for her Demadex 40 mg bid. She will follow-up with her PCP. She will call 911 if her condition worsens. The patient agreed with this plan. Hyperglyce renato due to type 2 diabetes mellitus [id number] E11.65 This 66-year-ol d female with poorly [...] Jin Member ID Guarantor Name 10/21/2023 1 [facility] - DOS PRIOR TO 2022 - DUAL ELIGIBLE (MEDICARE REPLACEMENT/AD VANTAGE - HMO) Angela Mtz Alberto Moreno [id number] Angela Mtz Alberto Moreno 10/21/2023 1 [facility] - DOS ON OR AFTER 2022 - DUAL ELIGIBLE - PRISON OPTIONS AND ONE CARE (MEDICARE REPLACEMENT/AD VANTAGE - HMO) Angela Alberto Moreno [id number] Angela Mtz Alberto Moreno Notes Date Note [...] increased LE swelling. Pete Cunha MD [address] [facility],[address], [place], [phone], [employer] 07/27/2021 15:37:23 04/11/2022 text/html HPI: 66 y/o [...] ................... ................... ................... ................... ................... ................... ........ Senior Quantity Surveyor Note: Dispatched to the home of 66-year-old female patient who has a rash which started four days ago on her body. Patient denies any new laundry detergent, soaps, clothes, or medication. Otherwise patient s vitals are is noted and is [...] ................... ........ Disposition: Fulfilled Kanchan Meza MD [address] [place] [address],[address] [facility], [place], [phone], [employer] 04/13/2022 09:19:05 04/13/2022 text/html HPI: This RN who has not seen member with hx. of CHF since 12/22/21 received call from member's daughter Nora, who reports member has had a 5lb. weight gain in the past 2 days with some increased SOB. Daughter did call roof tiler who is not in the office. ................... ................... ................... ................... ................... ................... ................... ........ CRC Nursing Assessment: Comments: CRC RN DID NOT NEED FURTHER INFO Remi Ríos MD [address] [facility],[address], [place], [address], [employer] [place] 04/13/2022 13:53:09 OBGyn Episode No OBEpisode recorded.
== END 2024-11-11 16:13 | disposition home or self-care (01) ==
LOC: HO.HPS 14:39
PROVIDERS: PCP Internal Medicine; Visit Provider Hospitalist
DX: J45.40 Moderate persistent asthma, uncomplicated (principal); R06.00 Dyspnea, unspecified; G47.33 Obstructive sleep apnea (adult) (pediatric); Z99.89 Dependence on other enabling machines and devices; J98.4 Other disorders of lung
CPT/HCPCS: 99214

== ENCOUNTER → 2024-11-11 14:38 | Outpatient (BNVA) | payer OTHER, SELFPAY | PROVIDERS: PCP Internal Medicine; Visit Provider Hospitalist | DX: Z01.811 Encounter for preprocedural respiratory examination (principal); J45.40 Moderate persistent asthma, uncomplicated; J98.4 Other disorders of lung; R06.00 Dyspnea, unspecified; G47.33 Obstructive sleep apnea (adult) (pediatric); Z85.3 Personal history of malignant neoplasm of breast; Z99.89 Dependence on other enabling machines and devices | CPT/HCPCS: 99212 ==

== ENCOUNTER 2024-11-28 08:19 | Day surgery (SDC) | payer OTHER, SELFPAY ==
--- OUTSIDE RECORDS SUMMARY | 2024-08-29 14:34 | XMS_ITS | Encounter Summary ---
Author Organization [facility] Address [address] [place] [address] Care Team Providers Care Resume Specialist Name Role Phone Angelica Guerra MD Primary Care Provider Unava ilable Agnelica Guerra MD Unavailable Unavailable Stacie Easton PA-C Unavailable Mahesh Acevedo NP Unavailable [phone] [facility], Pcp Primary Care Provider Unavailabl e Encounter Details Date Type Department Care Team Description 05/07/2017 Hospital Medical Records [address] [place] [address] Erik Dang MD Social History Tobacco Use Types Packs/Day Years Used Date Smoking Tobacco: Former Smokeless Tobacco: Never Alcohol Use Standard Drinks/Week Comments No 0 (1 standard drink = 0.6 oz pur e alcohol) Sex Assigned at Date Recorded Not on file documented as of this encounter Plan of Treatment Not on file documented as of this encounter Visit Diagnoses Not on filedocumented in this encounter Care Teams Resume Specialist Relationship Specialty Start Date End Date Angelica Guerra MD PCP - General Internal Medicine 03/02/17 08/01/21 [facility], Pcp PCP - General Internal Medicine 08/02/21 Angelica Guerra MD 02/10/17 Stacie Easton PA-C Specialist Cardiology 12/24/20 Mahesh Acevedo NP Specialist Cardiology 12/24/20 documented as of this encounter
--- OUTSIDE RECORDS SUMMARY | 2024-08-29 14:34 | XMS_ITS | Encounter Summary ---
Author Organization [employer] [facility] Address [address] [place] [address] Care Team Providers Care Leather Production Artisan Name Role Phone Angelica Guerra MD Primary Care Provider Unava ilable Angelica Guerra MD Unavailable Unavailable Stacie Easton PA-C Unavailable Mahesh Acevedo NP Unavailable [phone] [facility], Pcp Primary Care Provider Unavailabl e Encounter Details Date Type Department Care Team Description 04/20/2017 Release of Information Medical Records [address] [place] [address] Abstract, Provider Social History Tobacco Use Types Packs/Day Years [...] on filedocumented in this encounter Care Teams Leather Production Artisan Relationship Specialty Start Date End Date Angelica Guerra MD PCP - General Internal Medicine 03/02/17 08/01/21 [facility], Pcp PCP - General Internal Medicine 08/02/21 Angelica Guerra MD 02/10/17 Stacie Easton PA-C Specialist Cardiology 8/5/21 Mahesh Acevedo NP Specialist Cardiology 12/24/20 documented as of this encounter
--- OUTSIDE RECORDS SUMMARY | 2024-08-29 14:34 | XMS_ITS | Encounter Summary ---
Author Organization [facility] Address [address] [place] [address] Care Team Providers Care Food Critic Name Role Phone Angelica Guerra MD Primary Care Provider Unava ilable Angelica Guerra MD Unavailable Unavailable Stacie Easton PA-C Unavailable Mahesh Acevedo NP Unavailable [phone] [facility], Pcp Primary Care Provider Unavailabl e Encounter Details Date Type Department Care Team Description 08/05/2019 Insights Manager Report Medical Records [address] [place] [address] Beau Vargas [address] [place] [address] Social History Tobacco Use Types Packs/Day Years [...] on filedocumented in this encounter Care Teams Food Critic Relationship Specialty Start Date End Date Angelica Guerra MD PCP - General Internal Medicine 03/02/17 08/01/21 [facility], Pcp PCP - General Internal Medicine 08/02/21 Angelica Guerra MD 02/10/17 Stacie Easton PA-C Specialist Cardiology 12/24/20 Mahesh Acevedo NP Specialist Cardiology 12/24/20 documented as of this encounter
--- OUTSIDE RECORDS SUMMARY | 2024-08-29 14:34 | XMS_ITS | Encounter Summary ---
Author Organization [facility] Address [address] [place] [address] Care Team Providers Care Exhibition Carver Name Role Phone Angelica Guerra MD Primary Care Provider Unava ilable Angelica Guerra MD Unavailable Unavailable Stacie Easton PA-C Unavailable Mahesh Acevedo NP Unavailable [facility], Pcp Primary Care Provider Unavailabl e Encounter Details Date Type Department Care Team Description 10/10/2019 Division Toll Wire Chief Report Medical Records [address] [place] [address] Ava Morse MD Social History Tobacco Use Types Packs/Day [...] on filedocumented in this encounter Care Teams Exhibition Carver Relationship Specialty Start Date End Date Angelica Guerra MD PCP - General Internal Medicine 03/02/17 08/01/21 [facility], Pcp PCP - General Internal Medicine 08/02/21 Angelica Guerra MD 02/10/17 Stacie Easton PA-C Specialist Cardiology 12/24/20 Mahesh Acevedo NP Specialist Cardiology 12/24/20 documented as of this encounter
--- OUTSIDE RECORDS SUMMARY | 2024-08-29 14:34 | XMS_ITS | Encounter Summary ---
Author Organization [facility] Address [address] [place] [address] Care Team Providers Care Clinical Informaticist Name Role Phone Angelica Guerra MD Primary Care Provider Unava ilable Angelica Guerra MD Unavailable Unavailable Stacie Easton PA-C Unavailable Mahesh Acevedo NP Unavailable [phone] [facility], Pcp Primary Care Provider Unavailabl e Encounter Details Date Type Department Care Team Description 08/06/2019 [facility] Medical Records [address] [place] [address] Abstract, Provider Social History Tobacco Use Types [...] on filedocumented in this encounter Care Teams Clinical Informaticist Relationship Specialty Start Date End Date Angelica Guerra MD PCP - General Internal Medicine 03/02/17 08/01/21 [facility], Pcp PCP - General Internal Medicine 08/02/21 Angelica Guerra MD 02/10/17 Stacie Easton PA-C Specialist Cardiology 8/5/21 Mahesh Acevedo NP Specialist Cardiology 12/24/20 documented as of this encounter
--- OUTSIDE RECORDS SUMMARY | 2024-08-29 14:34 | XMS_ITS | Encounter Summary ---
Author Organization [facility] Address [address] [place] [address] Care Team Providers Care Farm Reporter Name Role Phone Angelica Guerra MD Primary Care Provider Unava ilable Angelica Guerra MD Unavailable Unavailable Stacie Easton PA-C Unavailable Mahesh Acevedo NP Unavailable [phone] [facility], Pcp Primary Care Provider Unavailabl e Encounter Details Date Type Department Care Team Description 05/05/2017 Orders Only Pulmonology [address] [place] [address] Michael Rutledge MD [address] [address] Mild pulmonary hypertension; Gastroesophageal reflux disease without esophagitis; Shortness of breath; ROLAN on CPAP Social History Tobacco Use Types Packs/Day Years Used Date Smoking Tobacco: Former Smokeless Tobacco: Never Alcohol Use Standard Drinks/Week Comments No 0 (1 standard drink = 0.6 oz pur e alcohol) Sex Assigned at Date Recorded Not on file documented as of this encounter Plan of Treatment Not on file documented as of this encounter Procedures Procedure Name Priority Date/Time Associated Diagnosis Comments CHG BLOOD GASES ANY COMBINATION PH PCO2 PO2 CO2 HCO3 Routine 05/05/2017 1:01 PM EST Mild pulmonary hypertension Gastroesophageal reflux disease without esophagitis Shortness of breath ROLAN on CPAP documented in this encounter Results * ASSAY, BLOOD GASES: PH/PO2/PCO2/ETC (05/05/2017 1:01 PM EST) 05/05/2017 1:01 PM EST Michael Rutledge MD [facility] [employer] documented in this encounter Visit Diagnoses Diagnosis Mild pulmonary hypertension (HCC) Other chronic pulmonary heart diseases Gastroesophageal reflux disease without esophagitis Esophageal reflux Shortness of breath ROLAN on CPAP Obstructive sleep apnea (adult) (pediatric) documented in this encounter Care Teams Farm Reporter Relationship Specialty Start Date End Date Angelica Guerra MD PCP - General Internal Medicine 03/02/17 08/01/21 [facility], Pcp PCP - General Internal Medicine 08/02/21 Angelica Guerra MD 02/10/17 Stacie Easton PA-C Specialist Cardiology 12/24/20 Mahesh Acevedo NP Specialist Cardiology 12/24/20 documented as of this encounter
--- OUTSIDE RECORDS SUMMARY | 2024-08-29 14:34 | XMS_ITS | Encounter Summary ---
Author Organization [facility] Address [address] [place] [address] Care Team Providers Care Coffee Host Name Role Phone Angelica Guerra MD Primary Care Provider Unava ilable Angelica Guerra MD Unavailable Unavailable Stacie Easton PA-C Unavailable Mahesh Acevedo NP Unavailable [phone] [facility], Pcp Primary Care Provider Unavailabl e Encounter Details Date Type Department Care Team Description 11/18/2019 Brush Hand Report Medical Records [address] [place] [address] Ava Morse MD Social History Tobacco Use [...] on filedocumented in this encounter Care Teams Coffee Host Relationship Specialty Start Date End Date Angelica Guerra MD PCP - General Internal Medicine 03/02/17 08/01/21 [facility], Pcp PCP - General Internal Medicine 08/02/21 Angelica Guerra MD 02/10/17 Stacie Easton PA-C Specialist Cardiology 12/24/20 Mahesh Acevedo NP Specialist Cardiology 12/24/20 documented as of this encounter
--- OUTSIDE RECORDS SUMMARY | 2024-08-29 14:34 | XMS_ITS | Encounter Summary ---
Author Organization [facility] Address [address] [place] [address] Care Team Providers Care Busser Name Role Phone Angelica Guerra MD Primary Care Provider Unava ilable Angelica Guerra MD Unavailable Unavailable Stacie Easton PA-C Unavailable Mahesh Acevedo NP Unavailable [phone] [facility], Pcp Primary Care Provider Unavailabl e Encounter Details Date Type Department Care Team Description 07/16/2019 Casino Floor Person Report Medical Records [address] [place] [address] Maia Herring MD Social History Tobacco Use Types Packs/Day [...] on filedocumented in this encounter Care Teams Busser Relationship Specialty Start Date End Date Angelica Guerra MD PCP - General Internal Medicine 03/02/17 08/01/21 [facility], Pcp PCP - General Internal Medicine 08/02/21 Angelica Guerra MD 02/10/17 Stacie Easton PA-C Specialist Cardiology 12/24/20 Mahesh Acevedo NP Specialist Cardiology 12/24/20 documented as of this encounter
--- OUTSIDE RECORDS SUMMARY | 2024-08-29 14:34 | XMS_ITS | Encounter Summary ---
Author Organization [employer] [facility] Address [address] [place] [address] Care Team Providers Care Paper Roller Name Role Phone Angelica Guerra MD Primary Care Provider Unava ilable Angelica Guerra MD Unavailable Unavailable Stacie Easton PA-C Unavailable Mahesh Acevedo NP Unavailable [phone] [facility], Pcp Primary Care Provider Unavailabl e Encounter Details Date Type Department Care Team Description 07/15/2019 Furnace Tapper Report Medical Records [address] [place] [address] Nabeel March MD Social History Tobacco Use Types Packs/Day [...] on filedocumented in this encounter Care Teams Paper Roller Relationship Specialty Start Date End Date Angelica Guerra MD PCP - General Internal Medicine 03/02/17 08/01/21 [facility], Pcp PCP - General Internal Medicine 08/02/21 Angelica Guerra MD 02/10/17 Stacie Easton PA-C Specialist Cardiology 12/24/20 Mahesh Acevedo NP Specialist Cardiology 12/24/20 documented as of this encounter
--- OUTSIDE RECORDS SUMMARY | 2024-08-29 14:34 | XMS_ITS | Encounter Summary ---
Author Organization [employer] Address [address] [facility] 7[address] [place] [address] Care Team Providers Care Seal Extrusion Operator Name Role Phone Angela Luz MD Primary Care Provide r Ninfa Dietrich PharmD Unavailable [phone] Encounter Details Date Type Department Care Team (Late st Contact Info) Description 03/26/2024 Orders Only [facility] MEDICINE [address] [place], [place] [phone] Angela Luz MD [address] [place], [place] [phone] Social History Tobacco Use Types Packs/Day Years [...] Care Team (Late st Contact Info) Description 09/20/2024 10:00 AM EDT Medication Management [address] [address] Ninfa Dietrich, PharmD [address] [place] [address] 10/17/2024 10:00 AM EDT Clinical Support [address] [address] Nazia Martins, RN documented as of this encounter Goals Goal Patient Goal Type Associated Problems Recent Progress Patient-Stated? Author Blood Pressure < 140/90 Blood Pressure 120/50(2024 9:37 AM EDT) No Ady Araujo Hemoglobin A1c < 8 Result Component 6.9( 10:18 AM EST) No Ady Araujo Note: Comorbidities: CHF, CKD, cirrhosis documented as of this encounter Visit Diagnoses Not on filedocumented in this encounter Care Teams Seal Extrusion Operator Relationship Specialty Start Date End Date Angela Luz MD [address] [place] [address] PCP - General Family Medicine 10/27/20 Ninfa Dietrich, Shadia [address] [place] [address] Pharmacist Internal Medicine 11/10/23 [facility] 12/20/23 documented as of this encounter
--- OUTSIDE RECORDS SUMMARY | 2024-08-29 14:35 | XMS_ITS | Encounter Summary ---
Author Organization [employer] [facility] Address [address] [place] [address] Care Team Providers Care Provider Network Manager Name Role Phone Angelica Guerra MD Primary Care Provider Unava ilable Angelica Guerra MD Unavailable Unavailable Stacie Easton PA-C Unavailable Mahesh Acevedo NP Unavailable [phone] [facility], Pcp Primary Care Provider Unavailabl e Encounter Details Date Type Department Care Team Description 05/31/2017 Crayon Molding Machine Operator Report Medical Records [address] [place] [address] Willy Avilez Social History Tobacco Use Types Packs/Day Years [...] on filedocumented in this encounter Care Teams Provider Network Manager Relationship Specialty Start Date End Date Angelica Guerra MD PCP - General Internal Medicine 03/02/17 08/01/21 [facility], Pcp PCP - General Internal Medicine 08/02/21 Angelica Guerra MD 02/10/17 Stacie Easton PA-C Specialist Cardiology 12/24/20 Mahesh Acevedo NP Specialist Cardiology 12/24/20 documented as of this encounter
--- OUTSIDE RECORDS SUMMARY | 2024-08-29 14:35 | XMS_ITS | Encounter Summary ---
Author Organization [employer] Address [address] [facility] 7t [place] [address] Care Team Providers Care Loading Unit Tool Setter Name Role Phone Angela Luz MD Primary Care Provide r Ninfa Dietrich PharmD Unavailable Reason for Visit * Reason Comments Med Refill Encounter Details Date Type Department Care Team (Late Contact Info) Description 02/22/2023 Refill [facility] MEDICINE [address] [place], [place] [phone] Angela Luz MD [address] [place], [place] [phone] Type 2 diabetes mellitus with stage 3 [...] Department Care Team (Late Contact Info) Description 09/20/2024 10:00 AM EDT Medication Management [facility] MEDICINE [address] [place] [address] Ninfa Dietrich PharmD [address] [place] [address] 10/17/2024 10:00 AM EDT Clinical Support [address] [address] Nazia Martins RN documented as of this encounter Visit Diagnoses Diagnosis Type 2 diabetes mellitus with stage 3 chronic kidney disease, with long-term current use of insulin, unspecified whether stage 3a or 3b CKD (CMS/[facility]) documented in this encounter Care Teams Loading Unit Tool Setter Relationship Specialty Start Date End Date Angela Luz MD [address] [place] [address] PCP - General Family Medicine 10/27/20 Ninfa Dietrich PharmD [address] [place] [address] Pharmacist Internal Medicine 11/10/23 [facility] 12/20/23 documented as of this encounter
--- OUTSIDE RECORDS SUMMARY | 2024-08-29 14:35 | XMS_ITS | Encounter Summary ---
Author Organization [facility] Address [address] [place] [address] Care Team Providers Care Supervisor Receiving And Processing Name Role Phone Angelica Guerra MD Primary Care Provider Unava ilable Angelica Guerra MD Unavailable Unavailable Stacie Easton PA-C Unavailable Mahesh Acevedo NP Unavailable [facility], Pcp Primary Care Provider Unavailabl e Encounter Details Date Type Department Care Team Description 12/24/2019 Detective Youth Bureau Report Medical Records [address] [place] [address] Willy Avilez Social History Tobacco Use Types [...] filedocumented in this encounter Care Teams Supervisor Receiving And Processing Relationship Specialty Start Date End Date Angelica Guerra MD PCP - General Internal Medicine 03/02/17 08/01/21 [facility], Pcp PCP - General Internal Medicine 08/02/21 Angelica Guerra MD 02/10/17 Stacie Easton PA-C Specialist Cardiology 12/24/20 Mahesh Acevedo NP Specialist Cardiology 12/24/20 documented as of this encounter
--- OUTSIDE RECORDS SUMMARY | 2024-08-29 14:35 | XMS_ITS | Encounter Summary ---
Author Organization [employer] [facility] Address [address] [place] [address] Care Team Providers Care Vault Cashier Name Role Phone Angelica Guerra MD Primary Care Provider Unava ilable Angelica Guerra MD Unavailable Unavailable Stacie Easton PA-C Unavailable Mahesh Acevedo NP Unavailable [phone] [facility], Pcp Primary Care Provider Unavailabl e Reason for Visit * Reason Onset Date Comments Provider Call Back 05/09/2017 Encounter Details Date Type Department Care Team Description 05/09/2017 Telephone Physiatry - [address] [address] Champ Asif DO Provider Call Back Social History Tobacco Use Types Packs/Day Years Used Date Smoking Tobacco: Former Smokeless Tobacco: Never Alcohol Use Standard Drinks/Week Comments No 0 (1 standard drink = 0.6 oz pur e alcohol) Sex Assigned at Date Recorded Not on file documented as of this encounter Miscellaneous Notes * Telephone Encounter - Ava Cedillo - 05/09/2017 2:54 PM EST Left message for patient to call. * Telephone Encounter - Mackenzie Linda - 05/09/2017 1:54 PM EST Patient wants to reschedule the injection that was missed today. She was in the hospital. documented in this encounter Plan of Treatment Not on file documented as of this encounter Visit Diagnoses Not on filedocumented in this encounter Care Teams Vault Cashier Relationship Specialty Start Date End Date Angelica Guerra MD PCP - General Internal Medicine 03/02/17 08/01/21 [facility] PCP - General Internal Medicine 08/02/21 Angelica Guerra MD 02/10/17 Stacie Easton PA-C Specialist Cardiology 12/24/20 Mahesh Acevedo NP Specialist Cardiology 12/24/20 documented as of this encounter
--- OUTSIDE RECORDS SUMMARY | 2024-08-29 14:35 | XMS_ITS | Encounter Summary ---
Author Organization [employer] Address [address] [facility] 7t [place] [address] Care Team Providers Care Hedge Fund Principal Name Role Phone Angela Luz MD Primary Care Provide r Ninfa Dietrich PharmD Unavailable [phone] Reason for Visit * Reason Onset Date Comments Med Refill 02/28/2023 Encounter Details Date Type Department Care Team (Late st Contact Info) Description 02/28/2023 Refill [facility] [address] [place], [place] [phone] Angela Luz MD [address] [place], [place] [phone] Other chronic pain Social History Tobacco Use [...] Description 09/20/2024 10:00 AM EDT Medication Management [address] [address] Ninfa Dietrich PharmD [address] [place] [address] 10/17/2024 10:00 AM EDT Clinical Support [address] [address] Nazia Martins RN documented as of this encounter Visit Diagnoses Diagnosis Other chronic pain documented in this encounter Care Teams Hedge Fund Principal Relationship Specialty Start Date End Date Angela Luz MD [address] [place] [id number] PCP - General Family Medicine 10/27/20 Ninfa Dietrich, PharmD [address] [place] [address] Pharmacist Internal Medicine 11/10/23 [employer] 12/20/23 documented as of this encounter
--- OUTSIDE RECORDS SUMMARY | 2024-08-29 14:35 | XMS_ITS | Encounter Summary ---
Author Organization [employer] Address [address] [facility] 7t [place] [address] Care Team Providers Care Rod Tape Operator Name Role Phone Angela Luz MD Primary Care Provide r Ninfa Dietrich PharmD Unavailable Reason for Visit * Reason Comments Med Refill Encounter Details Date Type Department Care Team ([facility] Contact Info) Description 07/21/2022 Refill [facility] [address] [place], [place] [phone] Ava Winn DO [address] [place], [place] [phone] Other chronic pain Social History Tobacco Use [...] Description 09/20/2024 10:00 AM EDT Medication Management [facility] [address] [place] [address] Ninfa Dietrich PharmD [address] [place] [address] 10/17/2024 10:00 AM EDT Clinical Support [address] [address] Nazia Martins, DIAMOND documented as of this encounter Visit Diagnoses Diagnosis Other chronic pain documented in this encounter Care Teams Rod Tape Operator Relationship Specialty Start Date End Date Angela Luz MD [address] [place] [address] PCP - General Family Medicine 10/27/20 iNnfa Dietrich PharmD [address] [place] [address] Pharmacist Internal Medicine 11/10/23 [employer] 12/20/23 documented as of this encounter
--- OUTSIDE RECORDS SUMMARY | 2024-08-29 14:35 | XMS_ITS | Encounter Summary ---
Author Organization [facility] Address [address] [place] [address] Care Team Providers Care Product Communications Manager Name Role Phone Angelica Guerra MD Primary Care Provider Unava ilable Angelica Guerra MD Unavailable Unavailable Stacie Easton PA-C Unavailable Mahesh Acevedo NP Unavailable [phone] [facility], Pcp Primary Care Provider Unavailabl e Reason for Referral * Non ELIANE (Routine) - Closed Specialty Diagnoses / Procedures Referred By Contcordelia t Referred To Contact Podiatry Procedures REFERRAL TO PODIATRY (IN NETWORK) Angelica Guerra MD [address] [place] [address] [facility] [address] [place] [address] Referral ID Status Reason Start Date Expiration Date Visits Re quested Visits Authorized [id number] Closed 12/18/2019 12/17/2020 1 1 Reason for Visit * Reason Onset Date Comments Call From Hospital 12/17/2019 Encounter Details Date Type Department Care Team Description 12/17/2019 Telephone Adult [facility] [address] [place] [address] Angelica Guerra MD Call From Hospital Social History Tobacco Use Types Packs/Day Years Used Date Smoking Tobacco: Former Smokeless Tobacco: Never Alcohol Use Standard Drinks/Week Comments No 0 (1 standard drink = 0.6 oz pur e alcohol) Sex Assigned at Date Recorded Not on file documented as of this encounter Miscellaneous Notes * Telephone Encounter - Thu Hinojosa M.A. - 12/19/2019 10:30 AM EDT Order faxed to [facility] Mammo fax# [phone] * Telephone Encounter - Angelica Guerra MD - 12/18/2019 3:21 PM EDT Placed mammo order (usually gets it here, but now w/ dx of breast CA and subsequent imaging being done at [facility], can fax the order there) Her Lucille mammo was canceled due to COVID Pls fax to [facility] as indicated * Telephone Encounter - Pete Puga - 12/17/2019 11:04 AM EDT Deanna at Radiation Oncology at [facility] calling on behalf of Dr. Morse's office because they need a new order for a mammogram. Deanna also requests that we call the patient when an order has been placed so that they know they can get the mammogram. documented in this encounter Plan of Treatment Not on file documented as of this encounter Visit Diagnoses Diagnosis Screening mammogram for high-risk patient- Primary documented in this encounter Care Teams Product Communications Manager Relationship Specialty Start Date End Date Angelica Guerra MD PCP - General Internal Medicine 03/02/17 08/01/21 [facility], Pcp PCP - General Internal Medicine 08/02/21 Angelica Guerra MD 02/10/17 Stacie Easton PA-C Specialist Cardiology 12/24/20 Mahesh Acevedo NP Specialist Cardiology 12/24/20 documented as of this encounter
--- OUTSIDE RECORDS SUMMARY | 2024-08-29 14:35 | XMS_ITS | Encounter Summary ---
Author Organization [employer] Address [address] [facility] [address] 7t [place] [address] Care Team Providers Care Public Relations Representative Name Role Phone Angela Luz MD Primary Care Provide r Ninfa Dietrich PharmD Unavailable Reason for Visit * Reason Onset Date Comments Shade 03/28/2023 Encounter Details Date Type Department Care Team ([facility] st Contact Info) Description 03/28/2023 Telephone [facility] [address] [place] [address] Percy Dennison, DMD [address] [place], [place] [phone] [place] Social History Tobacco Use Types Packs/Day [...] Miscellaneous Notes * Telephone Encounter - Mala Nima - 03/28/2023 10:34 AM EST Allen from [employer] looking for shade of denture. [phone]. Pls contact lab documented in this encounter Plan of Treatment Upcoming Encounters Date Type Department Care Team (Late st Contact Info) Description 09/20/2024 10:00 AM EDT Medication Management [facility] [address] [place] [address] Ninfa Dietrich PharmD [address] [place] [address] 10/17/2024 10:00 AM EDT Clinical Support [facility] [address] [place] [address] Nazia Martins RN documented as of this encounter Visit Diagnoses Not on filedocumented in this encounter Care Teams Public Relations Representative Relationship Specialty Start Date End Date Angela Luz MD [address] [place] [address] PCP - General Family Medicine 10/27/20 Ninfa Dietrich PharmD [address] [place] [address] Pharmacist Internal Medicine 11/10/23 [employer] 12/20/23 documented as of this encounter
--- OUTSIDE RECORDS SUMMARY | 2024-08-29 14:35 | XMS_ITS | Encounter Summary ---
Author Organization [employer] Address [address] 7t [place] [address] Care Team Providers Care Bucket Pusher Name Role Phone Angela Luz MD Primary Care Provide r Ninfa Dietrich PharmD Unavailable [phone] Reason for Visit * Reason Comments Med Refill Encounter Details Date Type Department Care Team (Late st Contact Info) Description 03/24/2023 Refill [facility] [address] [place], [place] [phone] Angela Luz MD [address] [place], [place] [phone] Cervical spondylosis with radiculopathy Social History Tobacco [...] Description 09/20/2024 10:00 AM EDT Medication Management [address] [address] Ninfa Dietrich PharmD [address] [place] [address] 10/17/2024 10:00 AM EDT Clinical Support [address] [address] Nazia Martins RN documented as of this encounter Visit Diagnoses Diagnosis Cervical spondylosis with radiculopathy Cervical spondylosis with myelopathy documented in this encounter Care Teams Bucket Pusher Relationship Specialty Start Date End Date Angela Luz MD [address] [place] [address] PCP - General Family Medicine 10/27/20 Ninfa Dietrich, PharmD [address] [place] [address] Pharmacist Internal Medicine 11/10/23 [employer] 12/20/23 documented as of this encounter
--- OUTSIDE RECORDS SUMMARY | 2024-08-29 14:35 | XMS_ITS | Encounter Summary ---
Author Organization [employer] Address [address] [facility] 7t [place] [address] Care Team Providers Care Paper Roller Name Role Phone Angela Luz MD Primary Care Provide r Ninfa Dietrich PharmD Unavailable [phone] Reason for Visit * Reason Comments Med Refill Encounter Details Date Type Department Care Team (Late Contact Info) Description 01/27/2023 Refill [facility] MED[facility]INE [address] [place] [address] Angela Luz MD [address] [place], [place] [phone] Other chronic pain Social History Tobacco Use [...] Description 09/20/2024 10:00 AM EDT Medication Management [facility] [address] [place] [address] Ninfa Dietrich, PharmD [address] [place] [address] 10/17/2024 10:00 AM EDT Clinical Support [facility] [address] [place] [address] [phone] Nazia Martins RN documented as of this encounter Visit Diagnoses Diagnosis Other chronic pain documented in this encounter Care Teams Paper Roller Relationship Specialty Start Date End Date Angela Luz MD [address] [place] [phone] PCP - General Family Medicine 10/27/20 Ninfa Dietrich, LauraD [address] [place] [address] Pharmacist Internal Medicine 11/10/23 [employer] 12/20/23 documented as of this encounter
--- OUTSIDE RECORDS SUMMARY | 2024-08-29 14:35 | XMS_ITS | Encounter Summary ---
Author Organization [facility] Address [address] [place] [address] Care Team Providers Care Anode Builder Name Role Phone Angelica Guerra MD Primary Care Provider Unava ilable Angelica Guerra MD Primary Care Provider Unava ilable Lucia Montes Primary Care Provider Unavailab le Angelica Guerra MD Primary Care Provider Unava ilable Angelica Guerra MD Unavailable Unavailable Angelica Guerra MD Unavailable Unavailable Stacie Easton PA-C Unavailable [facility] Unavailable [phone] [facility], Pcp Primary Care Provider Unavailabl e Encounter Details Date Type Department Care Team Description 05/30/2014 REHABILITATION WORK[facility] Report Medical Records [address] [place] [address] Abstract, Provider Social History Tobacco Use Types [...] on filedocumented in this encounter Care Teams Anode Builder Relationship Specialty Start Date End Date Angelica Guerra MD PCP - General 9/22/11 2/3/16 Angelica Guerra MD PCP - General 06/25/15 02/09/17 Lucia Montes PCP - General Internal Medicine 02/10/17 03/01/17 Angelica Guerra MD PCP - General Internal Medicine 03/02/17 08/01/21 [facility], [facility] PCP - General Internal Medicine 08/02/21 Angelica Guerra MD 06/25/15 02/09/17 Angelica Guerra MD 02/10/17 Stacie Easton PA-C Specialist Cardiology 12/24/20 Mahesh Acevedo NP Specialist Cardiology 12/24/20 documented as of this encounter
--- OUTSIDE RECORDS SUMMARY | 2024-08-29 14:35 | XMS_ITS | Encounter Summary ---
Author Organization [employer] Address [address] [facility] 7t [place] [address] Care Team Providers Care Crime Lab Technician Name Role Phone Angela Luz MD Primary Care Provide r Ninfa Dietrich PharmD Unavailable Reason for Visit * Reason Comments Med Refill Encounter Details Date Type Department Care Team (Late Contact Info) Description 02/20/2023 Refill [facility] [address] [place], [place] [phone] Angela uLz MD [address] [place], [place] [phone] Gastroesophageal reflux disease, unspecified whether esophagitis present [...] Description 09/20/2024 10:00 AM EDT Medication Management [facility] [address] [place], [place] [phone] Ninfa Dietrich PharmD [address] [place] [address] 10/17/2024 10:00 AM EDT Clinical Support [facility] [address] [place] [address] Nazia Martins RN documented as of this encounter Visit Diagnoses Diagnosis Gastroesophageal reflux disease, unspecified whether esophagitis present documented in this encounter Care Teams Crime Lab Technician Relationship Specialty Start Date End Date Angela Luz MD [address] [place] [address] PCP - General Family Medicine 10/27/20 Ninfa Dietrich PharmD [address] [place] [phone] Pharmacist Internal Medicine 11/10/23 [employer] 12/20/23 documented as of this encounter
--- OUTSIDE RECORDS SUMMARY | 2024-08-29 14:35 | XMS_ITS | Encounter Summary ---
Author Organization [employer] Address [address] [facility] 7t [place] [address] Care Team Providers Care Cable Technician Name Role Phone Angela Luz MD Primary Care Provide r Ninfa Dietrich PharmD Unavailable [phone] Reason for Visit * Reason Comments Med Refill Encounter Details Date Type Department Care Team ([facility] st Contact Info) Description 03/14/2023 Refill [facility] MEDICINE [address] [place], [place] [phone] Jeancarlos Brice MD [address] [place], [place] [phone] Chronic pruritus Social History Tobacco Use Types [...] Description 09/20/2024 10:00 AM EDT Medication Management [address] [address] Ninfa Dietrich PharmD [address] [place] [address] 10/17/2024 10:00 AM EDT Clinical Support [address] [address] Nazia Martins RN documented as of this encounter Visit Diagnoses Diagnosis Chronic pruritus documented in this encounter Care Teams Cable Technician Relationship Specialty Start Date End Date Angela Luz MD [address] [place] [address] PCP - General Family Medicine 10/27/20 Ninaf Dietrich, PharmD [address] [place] [address] Pharmacist Internal Medicine 11/10/23 [employer] 12/20/23 documented as of this encounter
--- OUTSIDE RECORDS SUMMARY | 2024-08-29 14:35 | XMS_ITS | Encounter Summary ---
Author Organization [facility] Address [address] [place] [address] Care Team Providers Care Cook Fruit Name Role Phone Angelica Guerra MD Primary Care Provider Unava ilable Angelica Guerra MD Primary Care Provider Unava ilable Lucia Montes Primary Care Provider Unavailab le Angelica Guerra MD Primary Care Provider Unava ilable Angelica Guerra MD Unavailable Unavailable Angelica Guerra MD Unavailable Unavailable Stacie Easton PA-C Unavailable [facility] Unavailable [phone] [facility], Pcp Primary Care Provider Unavailabl e Encounter Details Date Type Department Care Team Description 06/11/2014 Gang [facility] Report Medical Records [address] [place] [address] Oziel Crowley MD Social History Tobacco Use Types Packs/Day [...] on filedocumented in this encounter Care Teams Cook Fruit Relationship Specialty Start Date End Date Angelica Guerra MD PCP - General 02/10/11 06/24/15 Angelica Guerra MD PCP - General 06/25/15 02/09/17 Lucia Montes PCP - General Internal Medicine 02/10/17 03/01/17 Angelica Guerra MD PCP - General Internal Medicine 03/02/17 08/01/21 [facility], [facility] PCP - General Internal Medicine 08/02/21 Angelica Guerra MD 06/25/15 02/09/17 Angelica Guerra MD 02/10/17 Stacie Easton PA-C Specialist Cardiology 12/24/20 Mahesh Acevedo NP Specialist Cardiology 12/24/20 documented as of this encounter
--- OUTSIDE RECORDS SUMMARY | 2024-08-29 14:35 | XMS_ITS | Clinical Summary ---
Author Organization [employer] Address [address] [facility] [address] [place] [address] Care Team Providers Care A&P Technician Name Role Phone Angela Luz MD Primary Care Provide r Ninfa Dietrich PharmD Unavailable [phone] Allergies Active Allergy Reactions Criticality Noted Date [...] 1 tablet by mouth every day Active Movantik 12.5 MG tablet TAKE 1 TABLET BY MOUTH EVERY MORNING ON AN EMPTY STOMACH, no FOOD 1 HOUR AFTER OR 2 TO 3 HOURS BEFORE DOSE Active lactulose (Chronulac) 10 GM/15ML solution TAKE 15 ML BY MOUTH EVERY MORNING FOR 10 DAYS 150 mL 1 Active sertraline (Zoloft) 100 MG tablet Take 1 tablet by mouth in the morning. Active glucose (Glutose) 40 % gel oral gelIndications:T ype 2 diabetes mellitus with stage 3 chronic kidney disease, with long-term current use of insulin, unspecified whether stage 3a or 3b CKD ([facility]) Take 15 g by mouth if needed for low blood sugar. 45 g Active glucagon (Baqsimi) 3 MG/DOSE nasal powderIndication s:Type 2 diabetes mellitus with hypoglycemia without coma, with long-term current use of insulin ([facility]) For severe hypoglycemia, administer 3 mg (1 actuation) into 1 nostril. May repeat dose if there has been no response after 15 minutes 2 each Active pen needle 32G x 4 mm miscIndications: Type 2 diabetes mellitus with hypoglycemia without coma, with long-term current use of insulin ([facility]) Use for insulin administration three times daily. Use as instructed 100 each 024 2024 Active calcitriol (Rocaltrol) 0.25 MCG capsule Take 0.25 mcg by mouth every other day. 024 Active naloxone (Narcan) 4 mg/0.1 mL nasal sprayIndications :Chronic right shoulder pain Administer 1 spray (4 mg) into affected nostril(s) if needed for opioid reversal. spray 0.1 milliliter by intranasal route in 1 nostril may repeat dose every 2-3 minutes as needed alternating nostrils with each dose 2 each 2 024 Active fluticasone (Flonase) 50 MCG/ACT nasal sprayIndications :Nasal congestion Administer 1-2 sprays into each nostril 1-2x per day as needed for congestion. Shake gently. Before first use, prime pump. After use, clean tip and replace cap. 16 g 024 Active pregabalin (Lyrica) 75 MG capsuleIndicatio ns:Diabetic polyneuropathy associated with type 2 diabetes mellitus ([facility]) TAKE 1 CAPSULE BY MOUTH TWICE DAILY IN THE MORNING AND IN THE EVENING 60 capsule 1 024 Active insulin aspart (NovoLOG FLEXPEN) 100 UNIT/ML penIndications:T ype 2 diabetes mellitus with stage 3 chronic kidney disease, with long-term current use of insulin, unspecified whether stage 3a or 3b CKD ([facility]) USE DIRECTED THREE TIMES DAILY PER SLIDING SCALE <150mg/dL= 0 units,151-199mg/ dL=4 units,200-249mg/ dL=6 units,250-299mg/ dL=8 units,300-349mg/ dL=10 units,350-399mg/ dL=12 units,>400mg/dL 14 units & call offic 15 mL 3 025 Active senna (Senokot) 8.6 MG tabletIndication s:Constipation, unspecified constipation type TAKE 2 TABLETS BY MOUTH EVERY DAY AT BEDTIME NEEDED FOR CONSTIPATION 180 tablet 1 025 Active Continuous Glucose Radio Installer (FreeStyle Jeovany 3 [place]) deviceIndication s:Type 2 diabetes mellitus with hyperglycemia, with long-term current use of insulin ([facility]) 1 each Once per day. Use as directed for CGM 1 each 025 Active Continuous Glucose Sensor (FreeStyle Jeovany 3 Plus Sensor) miscIndications: Type 2 diabetes mellitus with hyperglycemia, with long-term current use of insulin ([facility]) 1 each every 15 days. Apply 1 [...] unspecified whether stage 3a or 3b CKD ([facility]) INJECT 36 UNITS SUBCUTANEOUSLY ONCE DAILY 025 Active amLODIPine (Norvasc) 10 MG tabletIndication s:Primary hypertension TAKE 1 TABLET BY MOUTH AT BEDTIME 90 tablet 1 025 Active albuterol (2.5 MG/3ML) 0.083% nebulizer solutionIndicati ons:Simple chronic bronchitis ([facility]) INHALE 1 AMPULE USING A NEBULIZER THREE TIMES DAILY 180 mL 3 025 Active esomeprazole (NexIUM) [address] capsule TAKE 1 CAPSULE BY MOUTH EVERY MORNING BEFORE BREAKFAST 30 capsule 025 Active TRUEplus Lancets 33G miscIndications: Type 2 diabetes mellitus with hyperglycemia, with long-term current use of insulin ([facility]) USE DIRECTED TO TEST BLOOD SUGAR FOUR TIMES DAILY 400 each 11 025 Active ursodiol (Actigall) 500 MG tablet TAKE 1 TABLET BY MOUTH TWICE DAILY IN THE MORNING AND IN THE EVENING 60 tablet 025 Active oxyCODONE-acetam inophen (Percocet) 5-325 MG tabletIndication s:Other chronic pain TAKE 1 TABLET BY MOUTH EVERY 6 HOURS NEEDED FOR SEVERE PAIN 112 tablet 025 2024 Active ceramides (CeraVe) moisturizing creamIndications :Chronic pruritus Mix with triamcinolone and apply as directed 453 g 1 023 2024 Discontinued(M ed list cleanup (will not trigger notification to Pharmacy)) triamcinolone (Kenalog) 0.1 % creamIndications :Chronic pruritus MIX WITH cerave CREAM AND APPLY TO THE AFFECTED AREA(S) TWICE DAILY IN THE MORNING AND AT BEDTIME NEEDED FOR PAIN AND SWELLING 80 g 3 024 2024 Discontinued(M ed list cleanup (will not trigger notification to Pharmacy)) glucose blood (FreeStyle Precision Boris Test) test stripIndications :Type 2 diabetes mellitus with stage 3 chronic kidney disease, with long-term current use of insulin, unspecified whether stage 3a or 3b CKD ([facility]) Use to test blood sugar 3 times daily 100 each 12 024 2024 predniSONE (Deltasone) 5 MG tablet TAKE 4 TABLETS BY MOUTH DAILY FOR FOURTEEN DAYS, 3 TABLET FOR FOURTEEN DAYS, 2 TABLET FOR FOURTEEN DAYS, THEN 1 TABLET FOR FOURTEEN DAYS 2024 Discontinued(M ed list cleanup (will not trigger notification to Pharmacy)) clotrimazole (Lotrimin) 1 % creamIndications :Type 2 diabetes mellitus with other specified complication, unspecified whether jail insulin use ([facility]) APPLY TOPICALLY TO AFFECTED AREA(S) AND SURROUNDING AREA(S) TWICE DAILY IN THE MORNING AND IN THE EVENING 30 g 024 2024 Discontinued(M ed list cleanup (will not trigger notification to Pharmacy)) diphenhydrAMINE (Banophen) 25 MG capsuleIndicatio ns:Seasonal allergic rhinitis, unspecified trigger TAKE 1 TO 2 CAPSULES BY MOUTH EVERY 4 TO 6 HOURS NEEDED FOR ITCHING 40 capsule 2024 Discontinued(M ed list cleanup (will not trigger notification to Pharmacy)) ursodiol (Actigall) 500 MG tablet TAKE 1 TABLET BY MOUTH TWICE DAILY IN THE MORNING AND IN THE EVENING 60 tablet 025 2024 Discontinued oxyCODONE-acetam inophen (Percocet) 5-325 MG tabletIndication s:Other chronic pain TAKE 1 TABLET BY MOUTH EVERY 6 HOURS NEEDED FOR SEVERE PAIN 112 tablet 2024 Discontinued Active Problems Problem Noted Date [...] due to stage 3b chronic kidney disease Congestive heart failure 12/26/2023 Overview (12/26/2023): 04/13 [...] AM EDT): I will refer patient to tactical response group officer outside after this plan is to refer [...] current medications - Patient already has seen tactical response group officer diabetes has being challenging to manage I will refer her to endocrinology Assessment & Plan (07/21/2022 12:56 PM EST): Llast A1c was high. Continue current insulins dose XXXXX Continue Farxiga. FU with PCP in 2 months. FU closely with billing department supervisor. Assessment & Plan (06/08/2022 1:02 PM EST): Restart Farxiga 10 mg and increase Lantus to 50 units qhs, continue 43 units in the morning. -Continue Humalog sliding scale. -Encouraged to increase small in fraction meals. -Will refer to hematology nurse educator and time stamp assembler. -FU with me in 3-4 weeks. Other [...] or stolen. Prescription sent today. FU with [facility]EARCH DIETITIAN nurse. Moderate persistent asthma 08/07/2017 Overview (04/29/2022): [...] 06/11/2012 Overview (04/29/2022): 01/[address] in [place] 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 Pt follow up closely at [facility]/Dr. March. Obtain result of last mammogram. Continue on anastrozole Encounters Date Type Department Care Team Description 08/29/2024 Refill [facility] [address] [place] [address] Angela Luz MD Nasal congestion 08/29/2024 Refill [facility] [address] [place] [address] Ninfa Dietrich, Shadia Type 2 diabetes mellitus with hyperglycemia, with long-term current use of insulin ([facility]) 08/29/2024 Refill [facility] [address] [place] [address] Azalea España ANP Nasal congestion 08/22/2024 Refill [facility] [address] [place] [address] Angela Luz MD Diabetic polyneuropathy associated with type 2 diabetes mellitus ([facility]) 08/16/2024 Orders Only [facility] External Provider, [facility] 08/14/2024 Telephone [facility] [address] [place] [address] Angela Luz MD 08/13/2024 Travel 08/05/2024 Refill [facility] [address] [place] [address] Angela Luz MD Other chronic pain 07/31/2024 Travel 07/31/2024 Refill [facility] [address] [place] [address] Angela Luz MD Other chronic pain 07/30/2024 Orders Only GENERIC EXTERNAL DATA DEPARTMENT Provider, Generic External Data 07/30/2024 Refill [facility] [address] [place] [address] Angela Luz MD 07/29/2024 Refill [facility] [address] [place] [address] Angela Luz MD Type 2 diabetes mellitus with hyperglycemia, with long-term current use of insulin ([facility]) 07/26/2024 Refill [facility] [address] [place] [address] Jasper Avila MD 07/26/2024 Refill [facility] [address] [place] [address] Angela Luz MD Simple chronic bronchitis (CMS/HCC) 07/25/2024 Refill [facility] [address] [place] [address] Angela Luz MD Primary hypertension 07/23/2024 9:00 AM EST Telemedicine [facility] [address] [place] [phone] Ninfa Dietrich PharmD Type 2 diabetes mellitus with hyperglycemia, with long-term current use of insulin ([facility]) (Primary Dx); Type 2 diabetes mellitus with stage 3 chronic kidney disease, with long-term current use of insulin, unspecified whether stage 3a or 3b CKD (CMS/HCC); Primary hypertension 07/22/2024 Orders Only GENERIC EXTERNAL DATA DEPARTMENT Provider, Generic External Data 07/09/2024 Refill [facility] [address] [place] [address] Angela Luz MD Other chronic pain 07/01/2024 Travel 06/29/2024 Refill [facility] [address] [place] [address] Angela Luz MD 06/28/2024 11:15 AM EST Office Visit [facility] [address] [place] [phone] Angela Luz MD Primary hypertension (Primary Dx); Type 2 diabetes mellitus with hyperglycemia, with long-term current use of insulin (CMS/HCC); Chronic kidney disease, stage 4 (severe) ([facility]); Chronic combined systolic and diastolic heart failure ([facility]); Chronic bronchitis, unspecified chronic bronchitis type ([facility]); Congestive heart failure, unspecified HF chronicity, unspecified heart failure type ([facility]); Type 2 diabetes mellitus with stage 3b chronic kidney disease, with long-term current use of insulin ([facility]) 06/28/2024 Travel 06/26/2024 Telephone [facility] [address] [place] [address] Lars Vides [place] Chart Prep 06/23/2024 Refill [facility] [address] [place], [place] [phone] Angela Luz MD 06/10/2024 Refill [facility] [address] [place] [address] Angela Luz MD Type 2 diabetes mellitus with stage 3 chronic kidney disease, with long-term current use of insulin, unspecified whether stage 3a or 3b CKD ([facility]) 06/06/2024 Refill [facility] [address] [place] [address] Angela Luz MD Other chronic pain 05/31/2024 Refill [facility] [address] [place] [address] Angela Luz MD from Last 3 Months Immunizations Name [...] Sign Reading Time Taken Comments Blood Pressure 120/50 08/13/2024 9:37 AM EDT Pulse 60 08/13/2024 9:37 AM EDT Temperature 36.7 ??C (98 ??F) 06/28/2024 11:05 [...] Description 09/20/2024 10:00 AM EDT Medication Management [facility] [address] [place] [phone] Ninfa Dietrich, PharmD [address] [place] [address] 10/17/2024 10:00 AM EDT Clinical Support [facility] [address] [place] [phone] Nazia Martins, DIAMOND Health Maintenance Due Date Last Done Comments CT Colonography 1954 Dental Prophylaxis 1954 Dental X-Ray: Bitewings 1954 FIT DNA/Cologuard 1955 FIT 1955 FOBT 1955 Sigmoidoscopy 1955 Diabetes: Foot Exam 1964 Eye Exam 1965 Dental Oral Exam 08/08/2023 02/06/2023 SDOH Screening 06/27/2024 06/27/2023 Diabetes: Hemoglobin A1C 09/23/2024 024, 12/06/2023, 09/11/2023, Additional history exists Depression Screening 12/25/2024 12/26/2023, 12/26/19 24 Colonoscopy 02/09/2025 Colorectal Cancer Screening 02/09/2025 Alcohol/Substance Use Screening 03/26/2025 03/26/2024 Mammogram 04/19/2025 04/19/2024, 03/23, 04/08/2022, Additional history exists Tobacco Screening 04/25/2025 04/25/2024 Lipid Panel 07/30/2025 07/30/2024, 0 06/2023, 06/29/2021, Additional history exists Dental X-Ray: Full Mouth 02/07/2026 02/06/2023 DTaP/Tdap/Td [...] Procedure Name Priority Date/Time Associated Diagnosis Comments US ABDOMEN SHEPARD W ELASTOGRAPHY Routine 08/16/2024 11:16 AM EDT PROTEIN CREATININE RATIO, URINE Routine 07/30/2024 8:26 AM EDT ALBUMIN, RANDOM URINE W/CREATININE Routine 07/30/2024 8:26 AM EDT URINALYSIS, COMPLETE Routine 07/30/2024 8:26 AM EDT URINALYSIS WITH REFLEX TO MICROSCOPIC Routine 07/30/2024 8:26 AM EDT PTH, INTACT WITHOUT CALCIUM Routine 07/30/2024 8:25 AM EDT VITAMIN D,25-OH,TOTAL,IA Routine 07/30/2024 8:25 AM EDT FERRITIN Routine 07/30/2024 8:25 AM EDT IRON AND TOTAL IRON BINDING CAPACITY Routine 07/30/2024 8:25 AM EDT MAGNESIUM Routine 07/30/2024 8:25 AM EDT PHOSPHATE ( PHOSPHORUS) Routine 07/30/2024 8:25 AM EDT CBC WITH AUTO DIFFERENTIAL Routine 07/30/2024 8:25 AM EDT COMPREHENSIVE METABOLIC PANEL Routine 07/30/2024 8:25 AM EDT Type 2 diabetes mellitus with hyperglycemia, with long-term current use of insulin (CMS/HCC) LIPID PANEL, STANDARD Routine 07/30/2024 8:25 AM EDT Type 2 diabetes mellitus with hyperglycemia, with long-term current use of insulin (CMS/HCC) FERRITIN Routine 07/22/2024 10:21 AM EST COMPREHENSIVE METABOLIC PANEL Routine 07/22/2024 10:21 AM EST PROTHROMBIN TIME-INR Routine 07/22/2024 10:21 AM EST CBC WITH AUTO DIFFERENTIAL Routine 07/22/2024 10:21 AM EST POCT GLUCOSE Routine 06/28/2024 11:07 AM EST Type 2 diabetes mellitus with hyperglycemia, with long-term current use of insulin (CMS/HCC) POCT GLYCATED HEMOGLOBIN, TOTAL Routine 03/26/2024 10:18 AM EST Type 2 diabetes mellitus with stage 3b chronic kidney disease, with long-term current use of insulin (CMS/HCC) HEPATITIS PANEL, GENERAL Routine 03/20/2023 11:30 AM EDT PANORAMIC RADIOGRAPHIC IMAGE Routine 02/06/2023 11:00 AM EDT Edentulism COMPREHENSIVE ORAL EVALUATION - NEW OR ESTABLISHED PATIENT Routine 02/06/2023 11:00 AM EDT Edentulism HM MAMMOGRAPHY Routine 04/08/2022 from Last 3 Months or Most Recently Relevant to Health Maintenance Results * US ABDOMEN SHEPARD W ELASTOGRAPHY (08/16/2024 11:16 AM EDT) Anatomical Region Laterality Modality Abdomen Ultrasound 08/16/2024 11:1 6 AM EDT Narrative 08/16/2024 12:49 PM EDT ? [facility] ?[address] ?[place] [address] ? Ultrasound Report ? Signed ? Patient: Dominguez Moreno,Angela ?MR#: ?? [id number] ? : 1955 ?Acct:[id number] ? Age/Sex: 68 / F ?ADM Date: 08/16/24 ? Loc: HO.US ? Attending Dr: Chance Schwartz MD ? Ordering Physician: Chance Schwartz MD ?? Date of Service: 08/16/24 ?? Procedure(s): US abdomen shepard w elastography ?? Accession Number(s): [id number] ? cc: Angela Luz MD; Chance Schwartz MD ? EXAMINATION: ??US ABDOMEN LIMITED WITH LIVER ELASTOGRAPHY ? HISTORY: K75.81 - Nonalcoholic steatohepatitis ([facility]) ? TECHNIQUE: Real-time grayscale ultrasound imaging of the right upper ?? quadrant was performed and images were reviewed. ? COMPARISON: Comparison is made with the prior examination dated ?? 12/22/2023. ? FINDINGS: ?? Liver: ?? The right lobe of the liver measures 16.4 cm in size. The left ?? lobe of the liver measures 8.9 cm in size. The liver again demonstrates ?? a lobular contour, suspicious for cirrhosis. There is mild coarsened, ?? increased hepatic echotexture, consistent with steatosis. ??No focal ?? mass or intrahepatic biliary ductal dilatation is identified. ??There is ?? normal hepatopedal flow in the portal vein. ? Ultrasound elastography of the liver was performed with 10 separate ?? measurements of the liver parenchyma with the patient in the supine ?? position. ??Measurements were obtained approximately 2 cm below ?? Aisha's capsule and perpendicular to the capsule. ??Images are of ?? satisfactory quality. ? The median shear wave velocity is 1.38 m/s (previously 1.55 m/s). ?? The interquartile range/median (IQR/median) is 0.24. ? Gallbladder and biliary tree: The gallbladder is surgically absent. ? The common bile duct is normal in caliber measuring 4 mm. ? Right Kidney: ??The right kidney measures 9.8 cm in length and ?? demonstrates a 5 x 3 x 3 mm cyst in the interpolar region and a 3 mm ?? cyst at the lower pole. ??The right kidney is otherwise unremarkable, ?? without evidence of solid masses, hydronephrosis, or calculi. ? Pancreas: The pancreatic head, neck, and body are unremarkable. The ?? pancreatic tail is obscured by bowel gas. ? Abdominal aorta and inferior vena cava: The visualized portions of the ?? abdominal aorta and inferior vena cava are normal in caliber. ? There is no free fluid in the right upper quadrant. ? US/US abdomen shepard w elastography ?? IMPRESSION: ? Mild hepatic steatosis. Lobulated liver contour suggestive of cirrhosis. ? The median shear wave velocity in the liver is 1.38 m/s, corresponding ?? to a median liver stiffness of 5.79 kPa. ??The IQR/median value is 0.24. ?? This is indicative of a poor quality data set, and the estimated liver ?? stiffness may be unreliable. ?? Findings are indicative of a low elastography value which rules out ?? advanced chronic liver disease in asymptomatic patients. ? REFERENCE: ?? Society of Radiologists in Ultrasound Liver Stiffness Thresholds (2019): ? LIVER STIFFNESS THRESHOLDS: ?? *Shear wave velocity less than 1.3 m/s (Liver Stiffness equal or less ?? than 5 kPa): ??High probability of being normal. ?? *Shear wave velocity less than 1.7 m/s (Liver Stiffness less than 9 ?? kPa): ??In the absence of other known clinical signs, rules out ?? compensated advanced chronic liver disease. ?? *Shear wave velocity between 1.7-2.1 m/s (Liver Stiffness 9-13 kPa): ? Suggestive of compensated advanced chronic liver disease but need ?? further test for confirmation. ?? *Shear wave velocity between 2.1-2.4 m/s (Liver Stiffness 13-17 kPa): ? Rules in compensated advanced chronic liver disease. ?? *Shear wave velocity ??greater than 2.4 m/s (Liver Stiffness over 17 ?? kPa): ??Suggestive of clinically significant portal hypertension. ? QUALITY OF DATA SET: ?? *IQR/Median value equal or less than 0.15 implies a quality data set. ?? *IQR/Median value over 0.15 implies a poor quality data set. ? SIGNIFICANT CHANGE FROM PRIOR EXAM: ?? Significant change if liver stiffness measurement is 10% or greater ?? from prior exam. ? OTHER CONSIDERATIONS: ?? The stage of liver fibrosis may be overestimated in the setting of ?? acute hepatitis, liver inflammation, elevated liver function tests, ?? hepatic vascular congestion, obstructive cholestasis, non-fasting ?? state, and infiltrative diseases such as amyloidosis and lymphoma. ??In ?? some patients with NAFLD, the liver stiffness thresholds for ?? compensated advanced chronic liver disease may be lower. ??In causes ?? other than viral hepatitis and NAFLD, liver stiffness thresholds are ?? not well established. ? Electronically signed by: ??Ignacio Mead MD ??08/16/2024 12:46 PM EDT ? Dictated By: ?Ignacio Mead MD ? Signed By: ?<Electronically signed by Ignacio Mead MD in OV> ?08/16/24 1246 ? DD/ 1116 ? TD/TT: 08/16/24 1148 ? Asset Protection Agent: ? Procedure Note Benjamin, Varun - 08/16/2024 [place] [id number] Ultrasound Report Signed Patient: Angela CullenMR#: [id number] : 5Acct:[id number] Age/Sex: 68 / FADM Date: 08/16/24 Loc: HO.US Attending Dr: Chance Schwartz MD Ordering Physician: Chance Schwartz MD Date of Service: 08/16/24 Procedure(s): US abdomen shepard w elastography Accession Number(s): [id number] cc: Angela Luz MD; Chance Schwartz MD EXAMINATION: US ABDOMEN LIMITED WITH LIVER ELASTOGRAPHY HISTORY: K75.81 - Nonalcoholic steatohepatitis ([facility]) TECHNIQUE: Real-time grayscale ultrasound imaging of the right upper quadrant was performed and images were reviewed. COMPARISON: Comparison is made with the prior examination dated 12/22/2023. FINDINGS: Liver: The right lobe of the liver measures 16.4 cm in size. The left lobe of the liver measures 8.9 cm in size. The liver again demonstrates a lobular contour, suspicious for cirrhosis. There is mild coarsened, increased hepatic echotexture, consistent with steatosis. No focal mass or intrahepatic biliary ductal dilatation is identified. There is normal hepatopedal flow in the portal vein. Ultrasound elastography of the liver was performed with 10 separate measurements of the liver parenchyma with the patient in the supine position. Measurements were obtained approximately 2 cm below Aisha's capsule and perpendicular to the capsule. Images are of satisfactory quality. The median shear wave velocity is 1.38 m/s (previously 1.55 m/s). The interquartile range/median (IQR/median) is 0.24. Gallbladder and biliary tree: The gallbladder is surgically absent. The common bile duct is normal in caliber measuring 4 mm. Right Kidney: The right kidney measures 9.8 cm in length and demonstrates a 5 x 3 x 3 mm cyst in the interpolar region and a 3 mm cyst at the lower pole. The right kidney is otherwise unremarkable, without evidence of solid masses, hydronephrosis, or calculi. Pancreas: The pancreatic head, neck, and body are unremarkable. The pancreatic tail is obscured by bowel gas. Abdominal aorta and inferior vena cava: The visualized portions of the abdominal aorta and inferior vena cava are normal in caliber. There is no free fluid in the right upper quadrant. US/US abdomen shepard w elastography IMPRESSION: Mild hepatic steatosis. Lobulated liver contour suggestive of cirrhosis. The median shear wave velocity in the liver is 1.38 m/s, corresponding to a median liver stiffness of 5.79 kPa. The IQR/median value is 0.24. This is indicative of a poor quality data set, and the estimated liver stiffness may be unreliable. Findings are indicative of a low elastography value which rules out advanced chronic liver disease in asymptomatic patients. REFERENCE: Society of Radiologists in Ultrasound Liver Stiffness Thresholds (2020): LIVER STIFFNESS THRESHOLDS: *Shear wave velocity less than 1.3 m/s (Liver Stiffness equal or less than 5 kPa): High probability of being normal. *Shear wave velocity less than 1.7 m/s (Liver Stiffness less than 9 kPa): In the absence of other known clinical signs, rules out compensated advanced chronic liver disease. *Shear wave velocity between 1.7-2.1 m/s (Liver Stiffness 9-13 kPa): Suggestive of compensated advanced chronic liver disease but need further test for confirmation. *Shear wave velocity between 2.1-2.4 m/s (Liver Stiffness 13-17 kPa): Rules in compensated advanced chronic liver disease. *Shear wave velocity greater than 2.4 m/s (Liver Stiffness over 17 kPa): Suggestive of clinically significant portal hypertension. QUALITY OF DATA SET: *IQR/Median value equal or less than 0.15 implies a quality data set. *IQR/Median value over 0.15 implies a poor quality data set. SIGNIFICANT CHANGE FROM PRIOR EXAM: Significant change if liver stiffness measurement is 10% or greater from prior exam. OTHER CONSIDERATIONS: The stage of liver fibrosis may be overestimated in the setting of acute hepatitis, liver inflammation, elevated liver function tests, hepatic vascular congestion, obstructive cholestasis, non-fasting state, and infiltrative diseases such as amyloidosis and lymphoma. In some patients with NAFLD, the liver stiffness thresholds for compensated advanced chronic liver disease may be lower. In causes other than viral hepatitis and NAFLD, liver stiffness thresholds are not well established. Electronically signed by: Ignacio Mead MD 08/16/2024 12:46 PM EDT Dictated By: Ignacio Mead MD Signed By: <Electronically signed by Ignacio Mead MD in OV> 08/16/24 1246 DD/ 1116 TD/TT: 08/16/24 1148 Asset Protection Agent: us [facility] External Provider IMG US PROCEDURES Final Result * Protein Creatinine Ratio, Urine (07/30/2024 8:26 AM EDT) Protein, Total, Random Urine <7 <12 mg/dL [facility] Protein/Creatin ine Ratio, Ur TNP <0.2 [facility] Comment:Unable to calculate urine protein creatinine ratio due tolow creatinine or protein result. 07/30/2024 8:26 AM EDT 07/30/2024 9:39 AM EDT us Generic External Data Provider LAB URINE ORDERAB LES Final Result Performing Organization Address [facility]/ZIP Co de Phone Number [facility] [address] [place] [address] [phone] * (ABNORMAL) Urinalysis with Reflex to Microscopic (07/30/2024 8:26 AM EDT) Color Urine Yellow [facility] Appearance Urine Cloudy [facility] PH 5.5 5.0 - 9.0 [facility] Glucose Urine UA >=1000(A) Negative mg/dL [facility] Urine Blood Negative Negative [facility] Specific [place] - Urine 1.015 1.005 - 1.025 [facility] Urine Protein Negative Neg-Trace mg/dL [facility] Urine Ketones Negative Negative mg/dL [facility] Nitrite Urine Negative Negative [facility] Leukocyte Esterase Urine Moderate (2+)(A) Negative [facility] 07/30/2024 8:26 AM EDT 07/30/2024 9:39 AM EDT us Generic External Data Provider LAB URINE ORDERAB LES Final Result Performing Organization Address [facility] Co de Phone Number [facility] [address] [place] [address] [phone] * Albumin, Random Urine W/Creatinine (07/30/2024 8:26 AM EDT) Creatinine, Urine 82.20 mg/dL [facility] Microalbumin Urine 17.0 mg/L [facility] Microalbum Creatinine Ratio Ur 20.6 <30 ug/mg cr [facility] Comment:Albumin/Creatinine R atio Reference Ranges: Normal: < 30 ug/mg creatinine Microalbuminuria: 30 - 300 ug/mg creatinineClinical Albuminuria: > 300 ug/mg creatinine 07/30/2024 8:26 AM EDT 07/30/2024 9:39 AM EDT Generic External Data Provider LAB URINE ORDERAB LES Final Result Performing Organization Address [facility] Co de Phone Number [facility] [address] [place] [address] [phone] * (ABNORMAL) Urinalysis Complete (07/30/2024 8:26 AM EDT) Color Urine Yellow [facility] Appearance Urine Cloudy [facility] PH 5.5 5.0 - 9.0 [facility] Glucose Urine UA >=1000(A) Negative mg/dL [facility] Urine Blood Negative Negative [facility] Specific [place] - Urine 1.015 1.005 - 1.025 [facility] Urine Protein Negative Neg-Trace mg/dL [facility] Urine Ketones Negative Negative mg/dL [facility] Nitrite Urine Negative Negative [facility] Leukocyte Esterase Urine Moderate (2+)(A) Negative [facility] RBC Urine 0-2 0 - 2 /HPF [facility] Urine WBC 21-50(A) 0 - 5 /HPF [facility] Urine Squamous Epithelial Cell >20 0 - 2 /HPF [facility] Urine Bacteria 4+ None Seen [facility] Hyaline Casts, Urine 3-5 0 - 2 /LPF [facility] 07/30/2024 8:26 AM EDT 07/30/2024 9:39 AM EDT us Generic External Data Provider LAB URINE ORDERAB LES Final Result Performing Organization Address [facility]/ZIP Co de Phone Number [facility] [address] [place] [address] [phone] * (ABNORMAL) Vitamin D, 25-Hydroxy, Total, Immunoassay (07/30/2024 8:25 AM EDT) Vitamin D 25-OH Total 28.3(L) >30 ng/mL [facility] Comment:Health Based Referen ce Values*< 20 ng/mL Ysclefhvi52-69 ng/mL Insufficient> 30 ng/mL Sufficient*Christi KOCH. N Engl J Med. 2007;357:266-280Care must be taken in interpreting Vitamin D results fromdifferent laboratories and methodologies. Published datademonstrated that results from patients undergoinghemodialysis may show a negative bias when tested withvarious automated 25-OH vitamin D assays when compared toLC-MS/MS.When testing samples from patients whose predominant form ofVitamin D is Vitamin D2, such as patients receiving VitaminD2 supplementation, results that are subtherapeutic shouldbe confirmed with another method such as LC-MS/MS. 07/30/2024 8:25 AM EDT 07/30/2024 8:25 AM EDT us Generic External Data Provider LAB BLOOD ORDERAB LES Final Result [facility] [address] [place] [address] [phone] * (ABNORMAL) CBC auto differential (07/30/2024 8:25 AM EDT) Only the most recent of2 resultswithin the time period is included. White Blood Count 5.3 4.8 - 10.8 X10*3/uL [facility] Red Blood Count 4.49 4.20 - 5.50 X10*6/uL [facility] Hemoglobin 12.0 12.0 - 16.0 g/dl [facility] Hematocrit 35.8(L) 37.0 - 47.0 % [facility] Mean Corpuscular Volume 79.7(L) 80.0 - 98.0 fL [facility] Mean Corpuscular Hemoglobin 26.7(L) 27.0 - 33.0 pg [facility] Mean Corpuscular HGB Conc 33.5 31.0 - 35.0 g/dl [facility] Red Cell Distribution Width 18.8(H) 11.0 - 16.0 % [facility] Platelet Count 179 160 - 400 X10*3/uL [facility] Mean Platelet Volume 9.4 9.4 - 12.3 fL [facility] Neutrophils Percent Auto 51.4 45 - 73 % [facility] Imm Gran Pct Auto 0.6(H) 0.0 - 0.4 % [facility] Lymphocytes Percent Auto 31.0 20 - 40 % [facility] Monocytes Percent Auto 9.9 2 - 11 % [facility] Eosinophils Percent Auto 6.5(H) 0 - 4 % [facility] Basophils Percent Auto 0.6 0 - 2 % [facility] NRBC Pct Auto 0.0 0.0 - 0.2 /100WBC [facility] Neutrophils Absolute Auto 2.7 2.0 - 8.3 x10*3/uL [facility] Imm Gran Abs Auto 0.03 0.00 - 0.03 X10*3/uL [facility] Lymphocytes Absolute Auto 1.6 1.2 - 4.9 X10*3/uL [facility] Monocytes Absolute Auto 0.5 0.1 - 1.2 X10*3/uL [facility] Eosinophils Absolute Auto 0.3 0.0 - 0.4 X10*3/uL [facility] Basophils Absolute Auto 0.0 0.0 - 0.2 X10*3/uL [facility] NRBC Abs Auto 0.000 0.0 - 0.012 X10*3/uL [facility] 07/30/2024 8:25 AM EDT 07/30/2024 8:25 AM EDT us Generic External Data Provider LAB BLOOD ORDERAB LES Final Result [facility] [address] [place] [phone] * Iron And Total Iron Binding Capacity (07/30/2024 8:25 AM EDT) Iron 87 30 - 160 mcg/dL [facility] Total Iron Binding Capacity 251 228 - 428 mcg/dL [facility] Percent Iron Saturation 35 15 - 50 % [facility] Unsaturated Iron Binding 164 ug/dL [facility] 07/30/2024 8:25 AM EDT 07/30/2024 8:25 AM EDT Generic External Data Provider LAB BLOOD ORDERAB LES Final Result Performing Organization Address [facility] Co de Phone Number [facility] [address] [place] [address] [phone] * Phosphate (As Phosphorus) (07/30/2024 8:25 AM EDT) Phosphorus 4.0 2.7 - 4.5 mg/dL [facility] 07/30/2024 8:25 AM EDT 07/30/2024 8:25 AM EDT Generic External Data Provider LAB BLOOD ORDERAB LES Final Result Performing Organization Address [facility] Co de Phone Number [facility] [address] [place] [address] [phone] * (ABNORMAL) PTH, Intact Without Calcium (07/30/2024 8:25 AM EDT) Parathyroid Hormone, Intact 475.0(H) 8.7 - 77.1 pg/mL [facility] 07/30/2024 8:25 AM EDT 07/30/2024 8:25 AM EDT Generic External Data Provider LAB BLOOD ORDERAB LES Final Result Performing Organization Address [facility] Co de Phone Number [facility] [address] [place] [address] [phone] * Magnesium (07/30/2024 8:25 AM EDT) Magnesium 2.1 1.6 - 2.6 mg/dL [facility] 07/30/2024 8:25 AM EDT 07/30/2024 8:25 AM EDT us Generic External Data Provider LAB BLOOD ORDERAB LES Final Result Performing Organization Address City/[facility]/ZIP Co de Phone Number [facility] [address] [place] [address] [phone] * (ABNORMAL) Ferritin (07/30/2024 8:25 AM EDT) Only the most recent of2 resultswithin the time period is included. Ferritin 398(H) 10 - 250 ng/mL [facility] 07/30/2024 8:25 AM EDT 07/30/2024 8:25 AM EDT us Generic External Data Provider LAB BLOOD ORDERAB LES Final Result Performing Organization Address [facility] Co de Phone Number [facility] [address] [place] [address] [phone] * Lipid Panel, Standard (07/30/2024 8:25 AM EDT) Triglycerides 130 <150 mg/dL [facility] Comment:Desirable Triglyceri de: less than 150 mg/dLBorderline High Triglyceride 150-199 mg/dLHigh Triglyceride: 200-499 mg/dLVery High Triglyceride: greater than or equal to 5OO mg/dL Cholesterol 126 <200 mg/dL [facility] Comment:Desirable Cholestero l: less than 200 mg/dLBorderline High Cholesterol: 200-239 mg/dLHigh Cholesterol: greater than 239 mg/dL LDL Cholesterol Calculated 53 <100 mg/dL [facility] Comment:Desirable LDL: less than 100 mg/dLNear Optimal/Above Optimal LDL: 110- 129 mg/dLBorderline High LDL: 130-159 mg/dLHigh LDL: 160-189 mg/dLVery High LDL: greater than or equal to 190 mg/dL HDL Cholesterol 47 >40 mg/dL [facility] Comment:Desirable HDL: great er than 40 mg/dL Note: This HDL assay may give artificially low results in patients with liver disease. Blood Venous blood specimen / Unknown 07/30/2024 8:25 AM EDT 07/30/2024 8:25 AM EDT us Angela Haley MD LAB BLOOD ORDERABLES Final Result [facility] [address] [place] [phone] * (ABNORMAL) Comprehensive Metabolic Panel (07/30/2024 8:25 AM EDT) Only the most recent of2 resultswithin the time period is included. Sodium 144 135 - 145 mmol/L [facility] Potassium 3.9 3.3 - 5.1 mmol/L [facility] Chloride 108 96 - 108 mmol/L [facility] Carbon Dioxide 27 22 - 29 mmol/L [facility] Anion Gap 13 12 - 20 [facility] Urea Nitrogen (BUN) 31(H) 9 - 16 mg/dL [facility] Creatinine, Serum 1.57(H) 0.5 - 1.4 mg/dL [facility] Estimated Glomerular Filt Rate 33 [facility] Comment:Chronic Kidney Disea se: Estimated GFR < 60 mL/min/[id number] Kidney Disease: Estimated GFR < 15 mL/min/1.73m2 Glucose 161(H) 60 - 115 mg/dL [facility] Calcium 9.3 8.4 - 10.2 mg/dL [facility] Bilirubin, Total 0.5 0.0 - 1.0 mg/dL [facility] Aspartate Amino Transferase 41(H) 5 - 31 U/L [facility] Alanine Aminotransferase 33(H) 0 - 31 U/L [facility] Total Protein 7.9 6.5 - 8.0 g/dL [facility] Albumin Level 3.8 3.5 - 5.0 g/dL [facility] Alkaline Phosphatase 134(H) 39 - 117 U/L [facility] Blood Venous blood specimen / Unknown 07/30/2024 8:25 AM EDT 07/30/2024 8:25 AM EDT us Angela Haley MD LAB BLOOD ORDERABLES Final Result Performing Organization Address [facility]/ZIP Co de Phone Number [facility] [address] [place] [address] [phone] * Prothrombin Time-INR (07/22/2024 10:21 AM EST) Prothrombin Time 12.0 10.9 - 12.4 SEC [facility] INTERNATIONAL NORM RATIO 1.0 0.9 - 1.1 [facility] Comment:INTERNATIONAL NORMAL IZED RATIO (INR) [...] ORDERAB LES Final Result Performing Organization Address [facility] Co de Phone Number [facility] [address] [place] [address] [phone] * (ABNORMAL) POCT glucose manually resulted (06/28/2024 11:07 AM EST) Glucose Blood, POC 273(A) 60 - 200 mg/dL [facility] Blood Capillary blood specimen / Unknown 06/28/2024 11:07 AM EST us Angela Haley MD POINT OF CARE TEST EN TER/EDIT ORDERABLES Final Result Performing Organization Address City/[facility]/ZIP Co de Phone Number [facility] [address] [place] [address] [phone] * (ABNORMAL) POCT HGB A1C (03/26/2024 10:18 AM EST) Hemoglobin A1C 6.9(A) 4.0 - 6.0 % QC Media Lot # [id number] Lot# Expiration Date ,649,705 Blood 03/26/2024 10:1 8 AM EST Angela Haley MD POINT OF CARE TEST EN TER/EDIT ORDERABLES Final Result * Hepatitis Panel, General (03/20/2023 11:30 AM EDT) Pathologist [facility] Hepatitis A IgM Nonreactive Nonreactive [facility] Comment:IgM antibodies to [place] V not detected; does not exclude earlyacute or recovered HAV infection. ~Hepatitis B Surface Antibody NONREACTIVE Nonreactive [facility] Comment:Nonreactive: < 8.00 mIU/mL Hepatitis B Core Antibody Nonreactive Nonreactive [facility] Hepatitis C Antibody Nonreactive Nonreactive [facility] Comment:Antibodies to HCV no t detected; does not exclude early acuteHCV infection. Hepatitis B Surface Ag Negative Negative [facility] 03/20/2023 11:3 0 AM EDT 03/20/2023 11:32 AM EDT [facility] External Provider LAB BLO OD ORDERABLES Final Result [facility] [address] [place] [address] [phone] * Mammography (04/08/2022) Mammogram Bi-rads 2 Anatomical Region Laterality Modality Other Historical Provider HEALTH MAINTENANCE Final Result from Last 3 Months or Most Recently Relevant to Health Maintenance Insurance DENTAL - [facility] Care Teams A&P Technician Relationship Specialty Start Date End Date Angela Luz MD [address] [place] [address] PCP - General Family Medicine 10/27/20 Ninfa Dietrich, Shadia [address] [place] [phone] Pharmacist Internal Medicine 11/10/23 [employer] 12/20/23
--- OUTSIDE RECORDS SUMMARY | 2024-08-29 14:35 | XMS_ITS | Encounter Summary ---
Author Organization [employer] [facility] Address [address] [place] [address] Care Team Providers Care Fire Alarm Technician Name Role Phone Angelica Guerra MD Primary Care Provider Unava ilable Angelica Guerra MD Unavailable Unavailable Stacie Easton PA-C Unavailable Mahesh Acevedo NP Unavailable [phone] [facility], Pcp Primary Care Provider Unavailabl e Encounter Details Date Type Department Care Team Description 06/21/2017 Senior Software Architect Report Medical Records [address] [place] [address] Willy Avilez Social History Tobacco Use Types [...] on filedocumented in this encounter Care Teams Fire Alarm Technician Relationship Specialty Start Date End Date Angelica Guerra MD PCP - General Internal Medicine 03/02/17 08/01/21 [facility], Pcp PCP - General Internal Medicine 08/02/21 Angelica Guerra MD 02/10/17 Satcie Easton PA-C Specialist Cardiology 12/24/20 Mahesh Acevedo NP Specialist Cardiology 12/24/20 documented as of this encounter
--- OUTSIDE RECORDS SUMMARY | 2024-08-29 14:35 | XMS_ITS | Encounter Summary ---
Author Organization [facility] Address [address] [place] [address] Care Team Providers Care Market Sales Manager Name Role Phone Angelica Guerra MD Primary Care Provider Unava ilable Angelica Guerra MD Primary Care Provider Unava ilable Lucia Montes Primary Care Provider Unavailab le Angelica Guerra MD Primary Care Provider Unava ilable Angelica Guerra MD Unavailable Unavailable Angelica Guerra MD Unavailable Unavailable Stacie Easton PA-C Unavailable [facility] NP Unavailable [phone] [facility], Pcp Primary Care Provider Unavailabl e Encounter Details Date Type Department Care Team Description 03/17/2014 Orthopedic Podiatrist Report Medical Records [address] [place] [address] Arcadio Bazzi MD Social History Tobacco Use Types Packs/Day [...] on filedocumented in this encounter Care Teams Market Sales Manager Relationship Specialty Start Date End Date Angelica Guerra MD PCP - General 02/10/11 06/24/15 Angelica Guerra MD PCP - General 06/25/15 02/09/17 Lucia Montes PCP - General Internal Medicine 02/10/17 03/01/17 Angelica Guerra MD PCP - General Internal Medicine 03/02/17 08/01/21 [facility], [facility] PCP - General Internal Medicine 08/02/21 Angelica Guerra MD 06/25/15 02/09/17 Angelica Guerra MD 02/10/17 Stacie Easton PA-C Specialist Cardiology 12/24/20 Mahesh Acevedo NP Specialist Cardiology 12/24/20 documented as of this encounter
--- OUTSIDE RECORDS SUMMARY | 2024-08-29 14:35 | XMS_ITS | Encounter Summary ---
Author Organization [facility] [facility] Address [address] [place] [address] Care Team Providers Care Filter Machine Operator Name Role Phone Angelica Guerra MD Primary Care Provider Unava ilable Angelica Guerra MD Unavailable Unavailable Stacie Easton PA-C Unavailable Mahesh Acevedo NP Unavailable [phone] [facility], Pcp Primary Care Provider Unavailabl e Encounter Details Date Type Department Care Team Description 01/23/2020 Kitchen Bath Designer Report Medical Records [address] [place] [address] Beau Vargas [address] [place] [address] Social History Tobacco Use Types Packs/Day Years [...] on filedocumented in this encounter Care Teams Filter Machine Operator Relationship Specialty Start Date End Date Angelica Guerra MD PCP - General Internal Medicine 03/02/17 08/01/21 [facility], Pcp PCP - General Internal Medicine 08/02/21 Angelica Guerra MD 02/10/17 Stacie Easton PA-C Specialist Cardiology 12/24/20 Mahesh Acevedo NP Specialist Cardiology 12/24/20 documented as of this encounter
--- OUTSIDE RECORDS SUMMARY | 2024-08-29 14:35 | XMS_ITS | Encounter Summary ---
Author Organization [employer] [facility] Address [address] [place] [address] Care Team Providers Care Aesthetics Instructor Name Role Phone Angelica Guerra MD Primary Care Provider Unava ilable Angelica Guerra MD Unavailable Unavailable Stacie Easton PA-C Unavailable Mahesh Acevedo NP Unavailable [phone] [facility], Pcp Primary Care Provider Unavailabl e Encounter Details Date Type Department Care Team Description 07/21/2017 [facility] Medical Records [address] [place] [id number] Abstract, Provider Social History Tobacco Use Types [...] on filedocumented in this encounter Care Teams Aesthetics Instructor Relationship Specialty Start Date End Date Angelica Guerra MD PCP - General Internal Medicine 03/02/17 08/01/21 [facility], Pcp PCP - General Internal Medicine 08/02/21 Angelica Guerra MD 02/10/17 Stacie Easton PA-C Specialist Cardiology 8/5/21 Mahesh Acevedo NP Specialist Cardiology 12/24/20 documented as of this encounter
--- OUTSIDE RECORDS SUMMARY | 2024-08-29 14:35 | XMS_ITS | Encounter Summary ---
Author Organization [facility] Address [address] [place] [address] Care Team Providers Care Psychological Tests Sales Agent Name Role Phone Angelica Guerra MD Primary Care Provider Unava ilable Angelica Guerra MD Primary Care Provider Unava ilable Lucia Montes Primary Care Provider Unavailab le Angelica Guerra MD Primary Care Provider Unava ilable Angelica Guerra MD Unavailable Unavailable Angelica Guerra MD Unavailable Unavailable Stacie Easton PA-C Unavailable [facility] NP Unavailable [phone] [facility], Pcp Primary Care Provider Unavailabl e Encounter Details Date Type Department Care Team Description 02/25/2011 Hospital Medical Records [address] [place] [address] Erik Dang MD Social History Tobacco Use [...] on filedocumented in this encounter Care Teams Psychological Tests Sales Agent Relationship Specialty Start Date End Date Angelica Guerra MD PCP - General 02/10/11 06/24/15 Angelica Guerra MD PCP - General 06/25/15 02/09/17 Lucia Montes PCP - General Internal Medicine 02/10/17 03/01/17 Angelica Guerra MD PCP - General Internal Medicine 03/02/17 08/01/21 [facility], [facility] PCP - General Internal Medicine 08/02/21 Angelica Guerra MD 06/25/15 02/09/17 Angelica Guerra MD 02/10/17 Stacie Easton PA-C Specialist Cardiology 12/24/20 Mahesh Acevedo NP Specialist Cardiology 12/24/20 documented as of this encounter
--- OUTSIDE RECORDS SUMMARY | 2024-08-29 14:35 | XMS_ITS | Encounter Summary ---
Author Organization [employer] Address [address] [facility] [address] [place] [address] Care Team Providers Care Hazmat Truck Driver Name Role Phone Angela Luz MD Primary Care Provide r Ninfa Dietrich PharmD Unavailable [phone] Reason for Visit * Reason Comments Med Refill Encounter Details Date Type Department Care Team ([facility] st Contact Info) Description 03/21/2023 Refill [facility] MEDICINE [address] [place], [place] [phone] Angela Luz MD [address] [place], [place] [phone] Other chronic pain Social History Tobacco Use [...] Description 09/20/2024 10:00 AM EDT Medication Management [address] [address] Ninfa Dietrich PharmD [address] [place] [phone] 10/17/2024 10:00 AM EDT Clinical Support [address] [address] Nazia Martins RN documented as of this encounter Visit Diagnoses Diagnosis Other chronic pain documented in this encounter Care Teams Hazmat Truck Driver Relationship Specialty Start Date End Date Angela Luz MD [address] [place] [phone] PCP - General Family Medicine 10/27/20 Ninfa Dietrich, PharmD [address] [place] [phone] Pharmacist Internal Medicine 11/10/23 [facility] 12/20/23 documented as of this encounter
--- OUTSIDE RECORDS SUMMARY | 2024-08-29 14:35 | XMS_ITS | Encounter Summary ---
Author Organization [employer] Address [address] [facility] 7t [place] [address] Care Team Providers Care Electrical Sign Wirer Name Role Phone Angela Luz MD Primary Care Provide r Ninfa Dietrich PharmD Unavailable [phone] Reason for Visit * Reason Onset Date Comments Med Refill 03/14/2024 Encounter Details Date Type Department Care Team (Late st Contact Info) Description 03/14/2024 Refill [facility] [address] [place], [place] [phone] Agnela Luz MD [address] [place], [place] [phone] Social History Tobacco Use Types Packs/Day Years [...] Description 09/20/2024 10:00 AM EDT Medication Management [address] [address] Ninfa Dietrich PharmD [address] [place] [address] 10/17/2024 10:00 AM EDT Clinical Support [address] [address] Nazia Martins RN documented as of this [...] on filedocumented in this encounter Care Teams Electrical Sign Wirer Relationship Specialty Start Date End Date Angela Luz MD [address] [place] [address] PCP - General Family Medicine 10/27/20 Ninfa Dietrich, LauraD [address] [place] [address] Pharmacist Internal Medicine 11/10/23 [employer] 12/20/23 documented as of this encounter
--- OUTSIDE RECORDS SUMMARY | 2024-08-29 14:35 | XMS_ITS | Encounter Summary ---
Author Organization [facility] Address [address] [place] [address] Care Team Providers Care Fresco Artist Name Role Phone Angelica Guerra MD Primary Care Provider Unava ilable Angelica Guerra MD Unavailable Unavailable Stacie Easton PA-C Unavailable Mahesh Acevedo NP Unavailable [phone] [facility], Pcp Primary Care Provider Unavailabl e Encounter Details Date Type Department Care Team Description 05/09/2017 Hospital Medical Records [address] [place] [address] Javy Hopkins MD Social History Tobacco Use Types Packs/Day [...] on filedocumented in this encounter Care Teams Fresco Artist Relationship Specialty Start Date End Date Angelica Guerra MD PCP - General Internal Medicine 03/02/17 08/01/21 [facility], Pcp PCP - General Internal Medicine 08/02/21 Angelica Guerra MD 02/10/17 Stacie Easton PA-C Specialist Cardiology 12/24/20 Mahesh Acevedo NP Specialist Cardiology 12/24/20 documented as of this encounter
--- OUTSIDE RECORDS SUMMARY | 2024-08-29 14:35 | XMS_ITS | Encounter Summary ---
Author Organization [facility] Address [address] [place] [address] Care Team Providers Care Supervisor Securities Vault Name Role Phone Angelica Guerra MD Primary Care Provider Unava ilable Angelica Guerra MD Unavailable Unavailable Stacie Easton PA-C Unavailable Mahesh Acevedo NP Unavailable [phone] [facility], Pcp Primary Care Provider Unavailabl e Encounter Details Date Type Department Care Team Description 10/10/2017 Switchboard Wire Worker Helper Report Medical Records [address] [place] [address] Willy Avilez Social History Tobacco Use Types [...] filedocumented in this encounter Care Teams Supervisor Securities Vault Relationship Specialty Start Date End Date Angelica Guerra MD PCP - General Internal Medicine 03/02/17 08/01/21 [facility], Pcp PCP - General Internal Medicine 08/02/21 Angelica uGerra MD 02/10/17 Stacie Easton PA-C Specialist Cardiology 12/24/20 Mahesh Acevedo NP Specialist Cardiology 12/24/20 documented as of this encounter
--- OUTSIDE RECORDS SUMMARY | 2024-08-29 14:35 | XMS_ITS | Encounter Summary ---
Author Organization [facility] Address [address] [place] [address] Care Team Providers Care Senior Piping Designer Name Role Phone Angelica Guerra MD Primary Care Provider Unava ilable Angelica Guerra MD Unavailable Unavailable Stacie Easton PA-C Unavailable Mahesh Acevedo NP Unavailable [facility], Pcp Primary Care Provider Unavailabl e Encounter Details Date Type Department Care Team Description 05/16/2017 Chamber Worker Report Medical Records [address] [place] [address] Zeina Renee [address] [place] [address] Social History Tobacco Use Types Packs/Day Years [...] on filedocumented in this encounter Care Teams Senior Piping Designer Relationship Specialty Start Date End Date Angelica Guerra MD PCP - General Internal Medicine 03/02/17 08/01/21 [facility], Pcp PCP - General Internal Medicine 08/02/21 Angelica Guerra MD 02/10/17 Stacie Easton PA-C Specialist Cardiology 12/24/20 Mahesh Acevedo NP Specialist Cardiology 12/24/20 documented as of this encounter
--- OUTSIDE RECORDS SUMMARY | 2024-08-29 14:36 | XMS_ITS | Encounter Summary ---
Author Organization [employer] Address 75 [facility] 7t [place] [address] Care Team Providers Care Charter Boat Operator Name Role Phone Angela Luz MD Primary Care Provide r Ninfa Dietrich PharmD Unavailable Reason for Visit * Reason Comments Med Refill Encounter Details Date Type Department Care Team ([facility] Contact Info) Description 06/30/2022 Refill [facility] MED & PEDS [address] [place] [address] Balwinder Kumar MD 230 [place] [address] Social History Tobacco Use Types Packs/Day Years [...] Team ([facility] Contact Info) Description 09/20/2024 10:00 AM EDT Medication Management [address] [address] Ninfa Dietrich PharmD [address] [place] [address] 10/17/2024 10:00 AM EDT Clinical Support [address] [address] Nazia Martins RN documented as of this encounter Visit Diagnoses Not on filedocumented in this encounter Care Teams Charter Boat Operator Relationship Specialty Start Date End Date Angela Luz MD [address] [place] [address] PCP - General Family Medicine 10/27/20 Ninfa Dietrich PharmD [address] [place] [address] Pharmacist Internal Medicine 11/10/23 [employer] 12/20/23 documented as of this encounter
--- OUTSIDE RECORDS SUMMARY | 2024-08-29 14:36 | XMS_ITS | Encounter Summary ---
Author Organization [facility] Address [address] [place] [address] Care Team Providers Care Independent Sales Representative Name Role Phone Angelica Guerra MD Primary Care Provider Unava ilable Angelica Guerra MD Unavailable Unavailable Stacie Easton PA-C Unavailable Mahesh Acevedo NP Unavailable [facility], Pcp Primary Care Provider Unavailabl e Encounter Details Date Type Department Care Team Description 05/23/2019 [facility] Medical Records [address] [place] [address] Abstract, Provider Social History Tobacco Use Types [...] on filedocumented in this encounter Care Teams Independent Sales Representative Relationship Specialty Start Date End Date Angelica Guerra MD PCP - General Internal Medicine 03/02/17 08/01/21 [facility], Pcp PCP - General Internal Medicine 08/02/21 Angelica Guerra MD 02/10/17 Stacie Easton PA-C Specialist Cardiology 8/5/21 Mahesh Acevedo NP Specialist Cardiology 12/24/20 documented as of this encounter
--- OUTSIDE RECORDS SUMMARY | 2024-08-29 14:36 | XMS_ITS | Encounter Summary ---
Author Organization [employer] Address [address] [place] [address] Care Team Providers Care Mortgage Loan Processing Clerk Name Role Phone Angelica Guerra MD Primary Care Provider Unava ilable Angelica Guerra MD Unavailable Unavailable Stacie Easton PA-C Unavailable Mahesh Acevedo NP Unavailable [phone] [facility], Pcp Primary Care Provider Unavailabl e Encounter Details Date Type Department Care Team Description 06/28/2019 Hospital Medical Records [address] [place] [address] Oziel Sanchez MD 4 [place] [address] Social History Tobacco Use Types Packs/Day Years [...] on filedocumented in this encounter Care Teams Mortgage Loan Processing Clerk Relationship Specialty Start Date End Date Angelica Guerra MD PCP - General Internal Medicine 03/02/17 08/01/21 [facility], Pcp PCP - General Internal Medicine 08/02/21 Angelica Guerra MD 02/10/17 Stacie Easton PA-C Specialist Cardiology 12/24/20 Mahesh Acevedo NP Specialist Cardiology 12/24/20 documented as of this encounter
--- OUTSIDE RECORDS SUMMARY | 2024-08-29 14:36 | XMS_ITS | Encounter Summary ---
Author Organization [employer] Address [address] [facility] [address] 7t [place] [address] Care Team Providers Care Division Field Inspector Name Role Phone Angela Luz MD Primary Care Provide r Ninfa Dietrich PharmD Unavailable [phone] Encounter Details Date Type Department Care Team (Late st Contact Info) Description 04/18/2023 Abstract [facility] MEDICINE [address] [place] [address] Delia Ballard Social History Tobacco Use Types [...] 09/20/2024 10:00 AM EDT Medication Management [facility] MEDICINE [address] [place] [address] Ninfa Dietrich PharmD [address] [place] [address] 10/17/2024 10:00 AM EDT Clinical Support [facility] MEDICINE [address] [place] [address] Nazia Martins RN documented as of this encounter Visit Diagnoses Not on filedocumented in this encounter Care Teams Division Field Inspector Relationship Specialty Start Date End Date Angela Luz MD [address] [place] [phone] PCP - General Family Medicine 10/27/20 Ninfa Dietrich PharmD [address] [place] [address] Pharmacist Internal Medicine 11/10/23 [employer] 12/20/23 documented as of this encounter
--- OUTSIDE RECORDS SUMMARY | 2024-08-29 14:36 | XMS_ITS | Encounter Summary ---
Author Organization [facility] Address [address] [place] [address] Care Team Providers Care World History Teacher Name Role Phone Angelica Guerra MD Primary Care Provider Unava ilable Angelica Guerra MD Unavailable Unavailable Stacie Easton PA-C Unavailable Mahesh Acevedo NP Unavailable [phone] [facility], Pcp Primary Care Provider Unavailabl e Encounter Details Date Type Department Care Team Description 03/12/2019 Fourth Officer Report Medical Records 4 [place] [address] Abstract, Provider Social History Tobacco Use Types [...] on filedocumented in this encounter Care Teams World History Teacher Relationship Specialty Start Date End Date Angelica Guerra MD PCP - General Internal Medicine 03/02/17 08/01/21 [facility], Pcp PCP - General Internal Medicine 08/02/21 Angelica Guerra MD 02/10/17 Stacie Easton PA-C Specialist Cardiology 12/24/20 Mahesh Acevedo NP Specialist Cardiology 12/24/20 documented as of this encounter
--- OUTSIDE RECORDS SUMMARY | 2024-08-29 14:36 | XMS_ITS | Encounter Summary ---
Author Organization [facility] Address [address] [place] [address] Care Team Providers Care Case Management Rn Name Role Phone Angelica Guerra MD Primary Care Provider Unava ilable Angelica Guerra MD Unavailable Unavailable Stacie Easton PA-C Unavailable Mahesh Acevedo NP Unavailable [facility], Pcp Primary Care Provider Unavailabl e Encounter Details Date Type Department Care Team Description 06/19/2019 Orders Only General Surgery - [address] [place] [address] Oziel Sanchez MD [address] [place] [address] Stage 1 infiltrating ductal carcinoma of right female breast (HCC) Social History Tobacco Use Types Packs/Day Years Used Date Smoking Tobacco: Former Smokeless Tobacco: Never Alcohol Use Standard Drinks/Week Comments No 0 (1 standard drink = 0.6 oz pur e alcohol) Sex Assigned at Date Recorded Not on file documented as of this encounter Plan of Treatment Not on file documented as of this encounter Procedures Procedure Name Priority Date/Time Associated Diagnosis Comments SONO BREAST, COMPLETE STAT 06/18/2019 Stage 1 infiltrating ductal carcinoma of right female breast (HCC) DX MAMMO INCL CAD BI STAT 06/18/2019 Stage 1 infiltrating ductal carcinoma of right female breast (HCC) documented in this encounter Results * SONO BREAST, COMPLETE (06/18/2019) Oziel Sanchez MD MAMMOGRAPHY * DX MAMMO INCL CAD BI (06/18/2019) Oziel Sanchez MD MAMMOGRAPHY documented in this encounter Visit Diagnoses Diagnosis Stage 1 infiltrating ductal carcinoma of right female breast (HCC) documented in this encounter Care Teams Case Management Rn Relationship Specialty Start Date End Date Angelica Guerra MD PCP - General Internal Medicine 03/02/17 08/01/21 [facility] PCP - General Internal Medicine 08/02/21 Angelica Guerra MD 02/10/17 Stacie Easton PA-C Specialist Cardiology 12/24/20 Mahesh Acevedo NP Specialist Cardiology 12/24/20 documented as of this encounter
--- OUTSIDE RECORDS SUMMARY | 2024-08-29 14:36 | XMS_ITS | Encounter Summary ---
Author Organization [facility] Address [address] [place] [address] Care Team Providers Care Cripple Worker Name Role Phone Angelica Guerra MD Primary Care Provider Unava ilable Angelica Guerra MD Unavailable Unavailable Stacie Easton PA-C Unavailable Mahesh Acevedo NP Unavailable [phone] [facility], Pcp Primary Care Provider Unavailabl e Reason for Visit * Reason Onset Date Comments Pre-visit Diabetes Lab Adult Medicine 03/07/2019 DM due 03/21/2019 at 1:00 pm Encounter Details Date Type Department Care Team Description 03/07/2019 Telephone Respiratory and Diabetes Medicaid/ACO Pharmacist [address] [place] [phone] Angelica Guerra MD Pre-visit Diabetes Lab Adult Medicine (DM due 03/21/2019 at 1:00 pm) Social History Tobacco Use Types Packs/Day Years Used Date Smoking Tobacco: Former Smokeless Tobacco: Never Alcohol Use Standard Drinks/Week Comments No 0 (1 standard drink = 0.6 oz pur e alcohol) Sex Assigned at Date Recorded Not on file documented as of this encounter Miscellaneous Notes * Telephone Encounter - Isha Dominguez - 03/07/2019 9:04 AM EDT Angela Dominguez is scheduled to see you on 03/21/2019 for diabetes follow up . I have contacted the patient and instructed them to have their labwork done 1 week prior to the appointment. Diabetes pre-visit orders have been pended. Please sign the orders then route the encounter back to sender . Donot close the encounter. If there are other orders you would like performed prior to the visit, please add them to the pended orders then sign all the orders. I would ask that any orders entered by the [facility] Medicaid staff be associated with a diabetes diagnosis. You can use any diabetes diagnosis found on the problem list. Isha Dominguez Community Health Worker [facility] Net Plan [facility] W [phone] F [phone] documented in this encounter Plan of Treatment Not on file documented as of this encounter Results * (ABNORMAL) HEMOGLOBIN A1C (03/18/2019 8:06 AM EDT) GLYCATED HEMOGLOBIN A1C 10.4(H) <6.5 % 03/18/2019 2:03 PM EDT [facility] ESTIMATED AVERAGE GLUCOSE 252 mg/dL 03/18/2019 2:03 PM EDT [facility] 03/18/2019 8:06 AM EDT 03/18/2019 8:06 AM EDT Angelica Guerra MD LAB [facility] documented in this encounter Visit Diagnoses Diagnosis Type 2 diabetes mellitus with diabetic neuropathy, without long-term current use of insulin (HCC)- Primary documented in this encounter Care Teams Cripple Worker Relationship Specialty Start Date End Date Angelica Guerra MD PCP - General Internal Medicine 03/02/17 08/01/21 [facility] PCP - General Internal Medicine 08/02/21 Angelica Guerra MD 02/10/17 Stacie Easton PA-C Specialist Cardiology 12/24/20 Mahesh Acevedo NP Specialist Cardiology 12/24/20 documented as of this encounter
--- OUTSIDE RECORDS SUMMARY | 2024-08-29 14:36 | XMS_ITS | Encounter Summary ---
Author Organization [employer] Address 75 [facility] 7t [place] [address] Care Team Providers Care Doughnut Icer Machine Name Role Phone Angela Luz MD Primary Care Provide r Ninfa Dietrich PharmD Unavailable [phone] Reason for Visit * Reason Comments Med Refill Encounter Details Date Type Department Care Team (Late Contact Info) Description 09/13/2022 Refill [facility] MEDICINE [address] [place] [address] Angela Luz MD [address] [place], [place] [phone] Other chronic pain Social History Tobacco Use [...] Description 09/20/2024 10:00 AM EDT Medication Management [facility] MEDICINE [address] [place] [address] Ninfa Dietrich, PharmD [address] [place] [address] 10/17/2024 10:00 AM EDT Clinical Support [facility] MEDICINE [address] [place] [address] [phone] Nazia Martins RN documented as of this encounter Visit Diagnoses Diagnosis Other chronic pain documented in this encounter Care Teams Doughnut Icer Machine Relationship Specialty Start Date End Date Angela Luz MD [address] [place] [address] [phone] PCP - General Family Medicine 10/27/20 Ninfa Dietrich, LauraD [address] [place] [address] Pharmacist Internal Medicine 11/10/23 [employer] 12/20/23 documented as of this encounter
--- OUTSIDE RECORDS SUMMARY | 2024-08-29 14:36 | XMS_ITS | Encounter Summary ---
Author Organization [facility] Address [address] [place] [address] Care Team Providers Care Looper Operator Name Role Phone Angelica Guerra MD Primary Care Provider Unava ilable Lucia Montes Primary Care Provider Unavailab le Angelica Guerra MD Primary Care Provider Unava ilable Angelica Guerra MD Unavailable Unavailable Angelica Guerra MD Unavailable Unavailable Stacie Easton PA-C [facility]available [facility] Unavailable [phone] [facility], Pcp Primary Care Provider [facility] Encounter Details Date Type Department Care Team Description 01/12/2017 [facility] Controlled Substance Contract Medical Records [address] [place] [id number] Abstract, Provider Social History Tobacco Use Types [...] on filedocumented in this encounter Care Teams Looper Operator Relationship Specialty Start Date End Date Angelica Guerra MD PCP - General 06/25/15 02/09/17 Lucia Montes PCP - General Internal Medicine 02/10/17 03/01/17 Angelica Guerra MD PCP - General Internal Medicine 03/02/17 08/01/21 [facility], Pcp PCP - General Internal Medicine 08/02/21 Angelica Guerra MD 06/25/15 02/09/17 Angelica Guerra MD 02/10/17 Stacie Easton PA-C Specialist Cardiology 12/24/20 Mahesh Acevedo NP Specialist Cardiology 12/24/20 documented as of this encounter
--- OUTSIDE RECORDS SUMMARY | 2024-08-29 14:36 | XMS_ITS | Encounter Summary ---
Author Organization [employer] Address 75 [facility] 7t [place] [address] Care Team Providers Care Solution Advisor Name Role Phone Angela Luz MD Primary Care Provide r Ninfa Dietrich PharmD Unavailable [phone] Reason for Visit * Reason Comments Med Refill Encounter Details Date Type Department Care Team (Late Contact Info) Description 12/05/2022 Refill [facility] CHC MED & PEDS [address] [place] [address] Angela Luz MD [address] [place] [address] Diabetic polyneuropathy associated with type 2 diabetes [...] 09/20/2024 10:00 AM EDT Medication Management [facility] MEDICINE [address] [place] [address] Ninfa Dietrich PharmD [address] [place] [address] 10/17/2024 10:00 AM EDT Clinical Support [address] [address] Nazia Martins RN documented as of this encounter Visit Diagnoses Diagnosis Diabetic polyneuropathy associated with type 2 diabetes mellitus ([facility]) Primary hypertension Unspecified essential hypertension Chronic right-sided thoracic back pain documented in this encounter Care Teams Solution Advisor Relationship Specialty Start Date End Date Angela Luz MD [address] [place] [phone] PCP - General Family Medicine 10/27/20 Ninfa Dietrich PharmD [address] [place] [phone] Pharmacist Internal Medicine 11/10/23 [employer] 12/20/23 documented as of this encounter
--- OUTSIDE RECORDS SUMMARY | 2024-08-29 14:36 | XMS_ITS | Encounter Summary ---
Author Organization [employer] Address 75 [facility] 7t [place] [address] Care Team Providers Care Solar Energy Systems Designer Name Role Phone Angela Luz MD Primary Care Provide r Ninfa Dietrich PharmD Unavailable [phone] Reason for Visit * Reason Onset Date Comments Med Refill 04/03/2023 Encounter Details Date Type Department Care Team (Late st Contact Info) Description 04/03/2023 Refill [facility] MEDICINE [address] [place], [place] [phone] Angela Luz MD [address] [place], [place] [phone] Type 2 diabetes mellitus with other specified complication, unspecified whether assisted insulin use ([facility]) Social History Tobacco Use Types Packs/Day Years [...] Description 09/20/2024 10:00 AM EDT Medication Management [facility] MEDICINE [address] [place] [address] Ninfa Dietrich PharmD [address] [place] [address] 10/17/2024 10:00 AM EDT Clinical Support [address] [address] Nazia Martins, DIAMOND documented as of this encounter Visit Diagnoses Diagnosis Type 2 diabetes mellitus with other specified complication, unspecified whether terminal gauger supervisor insulin use ([facility]) documented in this encounter Care Teams Solar Energy Systems Designer Relationship Specialty Start Date End Date Angela Luz MD [address] [place] [address] PCP - General Family Medicine 10/27/20 Ninfa Dietrich PharmD [address] [place] [address] Pharmacist Internal Medicine 11/10/23 [employer] 12/20/23 documented as of this encounter
--- OUTSIDE RECORDS SUMMARY | 2024-08-29 14:36 | XMS_ITS | Encounter Summary ---
Author Organization [employer] Address 75 [facility] 7t [place] [address] Care Team Providers Care Electronic Security Specialist Name Role Phone Angela Luz MD Primary Care Provide r Ninfa Dietrich PharmD Unavailable [phone] Encounter Details Date Type Department Care Team (Late st Contact Info) Description 08/30/[address] [facility] MEDICINE [address] [place] [address] Lacie Mtz, DIAMOND [address] [place] [address] Social History Tobacco Use Types Packs/Day Years [...] Description 09/20/2024 10:00 AM EDT Medication Management [address] [address] Ninfa Dietrich PharmD [address] [place] [address] 10/17/2024 10:00 AM EDT Clinical Support [address] [address] Nazia Martins, DIAMOND documented as of this encounter Visit Diagnoses Not on filedocumented in this encounter Care Teams Electronic Security Specialist Relationship Specialty Start Date End Date Angela Luz MD [address] [place] [address] PCP - General Family Medicine 10/27/20 Ninfa Dietrich, LauraD [address] [place] [phone] Pharmacist Internal Medicine 11/10/23 [employer] 12/20/23 documented as of this encounter
--- OUTSIDE RECORDS SUMMARY | 2024-08-29 14:36 | XMS_ITS | Encounter Summary ---
Author Organization [employer] Address 75 [facility] 7t [place] [address] Care Team Providers Care Educational Adviser Name Role Phone Angela Luz MD Primary Care Provide r Ninfa Dietrich PharmD Unavailable Reason for Visit * Reason Onset Date Comments Med Refill 11/11/2022 Encounter Details Date Type Department Care Team (Late st Contact Info) Description 11/11/2022 Refill [facility] MEDICINE 230 [place], [place] [phone] Angela Luz MD 230 [place], [place] [phone] Other chronic pain Social History Tobacco Use [...] Description 09/20/2024 10:00 AM EDT Medication Management [address] [address] Ninfa Dietrich PharmD [address] [place] [address] 10/17/2024 10:00 AM EDT Clinical Support [address] [address] Nazia Martins RN documented as of this encounter Visit Diagnoses Diagnosis Other chronic pain documented in this encounter Care Teams Educational Adviser Relationship Specialty Start Date End Date Angela Luz MD [address] [place] [address] PCP - General Family Medicine 10/27/20 Ninfa Dietrich PharmD [address] [place] [address] Pharmacist Internal Medicine 11/10/23 [employer] 12/20/23 documented as of this encounter
--- OUTSIDE RECORDS SUMMARY | 2024-08-29 14:36 | XMS_ITS | Encounter Summary ---
Author Organization [facility] Address [address] [place] [address] Care Team Providers Care Customer Relations Assistant Name Role Phone Angelica Guerra MD Primary Care Provider Unava ilable Angelica Guerra MD Unavailable Unavailable Stacie Easton PA-C Unavailable Mahesh Acevedo NP Unavailable [phone] [facility], Pcp Primary Care Provider Unavailabl e Reason for Visit * Reason Onset Date Comments preop exam 06/27/2019 please complete this note from 06/24 for pending surgery Encounter Details Date Type Department Care Team Description 06/27/2019 Telephone Adult Medicine [address] [address] Angelica Guerra MD preop exam (please complete this note from 06/24 for pending surgery) Social History Tobacco Use Types Packs/Day Years Used Date Smoking Tobacco: Former Smokeless Tobacco: Never Alcohol Use Standard Drinks/Week Comments No 0 (1 standard drink = 0.6 oz pur e alcohol) Sex Assigned at Date Recorded Not on file documented as of this encounter Miscellaneous Notes * Telephone Encounter - Angelica Guerra MD - 06/27/2019 10:39 AM EST done * Telephone Encounter - Debra Teague M.A. - 06/27/2019 9:22 AM EST Message received from Brooke regarding note from preop exam [phone] This is needed radha documented in this encounter Plan of Treatment Not on file documented as of this encounter Visit Diagnoses Not on filedocumented in this encounter Care Teams Customer Relations Assistant Relationship Specialty Start Date End Date Angelica Guerra MD PCP - General Internal Medicine 03/02/17 08/01/21 [facility] PCP - General Internal Medicine 08/02/21 Angelica Guerra MD 02/10/17 Stacie Easton PA-C Specialist Cardiology 12/24/20 Mahesh Acevedo NP Specialist Cardiology 12/24/20 documented as of this encounter
--- OUTSIDE RECORDS SUMMARY | 2024-08-29 14:36 | XMS_ITS | Encounter Summary ---
Author Organization [facility] Address [address] [place] [address] Care Team Providers Care Home Security Professional Name Role Phone Angelica Guerra MD Primary Care Provider Unava ilable Angelica Guerra MD Unavailable Unavailable Stacie Easton PA-C Unavailable Mahesh Acevedo NP Unavailable [phone] [facility], Pcp Primary Care Provider Unavailabl e Encounter Details Date Type Department Care Team Description 05/07/2019 Phlebotomy Program Coordinator Report Medical Records [address] [place] [address] Zeina Renee [address] [place] [address] Social History Tobacco Use Types Packs/Day Years [...] on filedocumented in this encounter Care Teams Home Security Professional Relationship Specialty Start Date End Date Angelica Guerra MD PCP - General Internal Medicine 03/02/17 08/01/21 [facility]cp PCP - General Internal Medicine 08/02/21 Angelica Guerra MD 02/10/17 Stacie Easton PA-C Specialist Cardiology 12/24/20 Mahesh Aecvedo NP Specialist Cardiology 12/24/20 documented as of this encounter
--- OUTSIDE RECORDS SUMMARY | 2024-08-29 14:36 | XMS_ITS | Encounter Summary ---
Author Organization [facility] Address [address] [place] [address] Care Team Providers Care Electrical And Radio Mechanic Name Role Phone Angelica Guerra MD Primary Care Provider Unava ilable Angelica Guerra MD Unavailable Unavailable Stacie Easton PA-C Unavailable Mahesh Acevedo NP Unavailable [facility], Pcp Primary Care Provider Unavailabl e Encounter Details Date Type Department Care Team Description 06/17/2019 Orders Only General Surgery - [address] [place] [address] Oziel Sanchez MD [address] [place] [address] Stage 1 infiltrating ductal carcinoma of right female breast (HCC) (Primary Dx) Social History Tobacco Use Types Packs/Day Years Used Date Smoking Tobacco: Former Smokeless Tobacco: Never Alcohol Use Standard Drinks/Week Comments No 0 (1 standard drink = 0.6 oz pur e alcohol) Sex Assigned at Date Recorded Not on file documented as of this encounter Plan of Treatment Not on file documented as of this encounter Results * SONO BREAST, COMPLETE (06/18/2019) Oziel Sanchez MD MAMMOGRAPHY * DX MAMMO INCL CAD BI (06/18/2019) Oziel Sanchez MD MAMMOGRAPHY documented in this encounter Visit Diagnoses Diagnosis Stage 1 infiltrating ductal carcinoma of right female breast (HCC)- Primary documented in this encounter Care Teams Electrical And Radio Mechanic Relationship Specialty Start Date End Date Angelica Guerra MD PCP - General Internal Medicine 03/02/17 08/01/21 [facility] PCP - General Internal Medicine 08/02/21 Angelica Guerra MD 02/10/17 Stacie Easton PA-C Specialist Cardiology 12/24/20 Mahesh Acevedo NP Specialist Cardiology 12/24/20 documented as of this encounter
--- OUTSIDE RECORDS SUMMARY | 2024-08-29 14:36 | XMS_ITS | Encounter Summary ---
Author Organization [facility] Address [address] [place] [address] Care Team Providers Care Plasma Center Technician Name Role Phone Angelica Guerra MD Primary Care Provider Unava ilable Angelica Guerra MD Unavailable Unavailable Stacie Easton PA-C Unavailable Mahesh Acevedo NP Unavailable [phone] [facility], Pcp Primary Care Provider Unavailabl e Encounter Details Date Type Department Care Team Description 04/24/2019 Old Medical Records Medical Records [address] [place] [address] Abstract, Provider Social History Tobacco Use Types [...] on filedocumented in this encounter Care Teams Plasma Center Technician Relationship Specialty Start Date End Date Angelica Guerra MD PCP - General Internal Medicine 03/02/17 08/01/21 [facility]cp PCP - General Internal Medicine 08/02/21 Angelica Guerra MD 02/10/17 Stacie Easton PA-C Specialist Cardiology 8/5/21 Mahesh Acevedo NP Specialist Cardiology 12/24/20 documented as of this encounter
--- OUTSIDE RECORDS SUMMARY | 2024-08-29 14:36 | XMS_ITS | Encounter Summary ---
[facility] Address [address] [place] [address] Care Team Providers Care Wine Consultant Name Role Phone Angelica Guerra MD Primary Care Provider Unava ilable Lucia Montes Primary Care Provider Unavailab le Angelica Guerra MD Primary Care Provider Unava ilable Angelica Guerra MD Unavailable Unavailable Angelica Guerra MD Unavailable Unavailable Stacie Easton PA-C Unavailable [facility] Unavailable [phone] [facility], Pcp Primary Care Provider [facility] e Encounter Details Date Type Department Care Team Description 01/12/2017 [facility] Medical Records [address] [place] [address] Abstract, Provider Social History Tobacco Use Types [...] on filedocumented in this encounter Care Teams Wine Consultant Relationship Specialty Start Date End Date Angelica Guerra MD PCP - General 06/25/15 02/09/17 Lucia Montes PCP - General Internal Medicine 02/10/17 03/01/17 Angelica Guerra MD PCP - General Internal Medicine 03/02/17 08/01/21 [facility], Pcp PCP - General Internal Medicine 08/02/21 Angelica Guerra MD 06/25/15 02/09/17 Angelica Guerra MD 02/10/17 Stacie Easton PA-C Specialist Cardiology 12/24/20 Mahesh Acevedo NP Specialist Cardiology 12/24/20 documented as of this encounter
--- OUTSIDE RECORDS SUMMARY | 2024-08-29 14:36 | XMS_ITS | Encounter Summary ---
Author Organization [facility] Address [address] [place] [address] Care Team Providers Care Soda Tester Name Role Phone Angelica Guerra MD Primary Care Provider Unava ilable Angelica Guerra MD Primary Care Provider Unava ilable Lucia Montes Primary Care Provider Unavailab le Angelica Guerra MD Primary Care Provider Unava ilable Angelica Guerra MD Unavailable Unavailable Angelica Guerra MD Unavailable Unavailable Stacie Easton PA-C Unavailable [facility] Unavailable [phone] [facility], [facility], Pcp Primary Care Provider Unavailabl e Encounter Details Date Type Department Care Team Description 06/08/2011 Eye Pharmacy Technician Infusion Report Medical Records [address] [place] [address] Gee Oneal MD Social History Tobacco Use Types Packs/Day [...] on filedocumented in this encounter Care Teams Soda Tester Relationship Specialty Start Date End Date Angelica Guerra MD PCP - General 02/10/11 06/24/15 Angelica Guerra MD PCP - General 06/25/15 02/09/17 Lucia Montes PCP - General Internal Medicine 02/10/17 03/01/17 Angelica Guerra MD PCP - General Internal Medicine 03/02/17 08/01/21 [facility], [facility], [facility] PCP - General Internal Medicine 08/02/21 Angelica Guerra MD 06/25/15 02/09/17 Angelica Guerra MD 02/10/17 Stacie Easton PA-C Specialist Cardiology 12/24/20 Mahesh Acevedo NP Specialist Cardiology 12/24/20 documented as of this encounter
--- OUTSIDE RECORDS SUMMARY | 2024-08-29 14:36 | XMS_ITS | Encounter Summary ---
[facility] Address [address] [place] [address] Care Team Providers Care Fiber Optic Central Office Installer Name Role Phone Angelica Guerra MD Primary Care Provider Unava ilable Angelica Guerra MD Unavailable Unavailable Stacie Easton PA-C Unavailable Mahesh Acevedo NP Unavailable [phone] [facility], Pcp Primary Care Provider Unavailabl e Encounter Details Date Type Department Care Team Description 04/02/2019 Orders Only Pulmonology - [place] [address] [facility] [address] [place] [address] Michael Rutledge MD [address] [facility] [address] [place] [address] Moderate persistent asthma, unspecified whether complicated; Methacholine challenge positive; Allergic rhinitis due to pollen, unspecified seasonality; Post-nasal drainage; Obesity (BMI 30-39.9); ROLAN on CPAP Social History Tobacco Use [...] Name Priority Date/Time Associated Diagnosis Comments CHG RADIOLOGIC EXAM CHEST 2 VIEWS Routine 04/01/2019 Moderate persistent asthma, unspecified whether complicated Methacholine challenge positive Allergic rhinitis due to pollen, unspecified seasonality Post-nasal drainage Obesity (BMI 30-39.9) ROLAN on CPAP documented in this encounter Results * RADIOLOGIC EXAM CHEST 2 VIEWS (04/01/2019) Michael Rutledge MD RADIOLOGY documented in this encounter Visit Diagnoses Diagnosis Moderate persistent asthma, unspecified whether complicated Methacholine challenge positive Nonspecific abnormal results of other specified function study Allergic rhinitis due to pollen, unspecified seasonality Post-nasal drainage Unspecified sinusitis (chronic) Obesity (BMI 30-39.9) Obesity, unspecified ROLAN on CPAP Obstructive sleep apnea (adult) (pediatric) documented in this encounter Care Teams Fiber Optic Central Office Installer Relationship Specialty Start Date End Date Angelica Guerra MD PCP - General Internal Medicine 03/02/17 08/01/21 [facility] PCP - General Internal Medicine 08/02/21 Angelica Guerra MD 02/10/17 Stacie Easton PA-C Specialist Cardiology 12/24/20 Mahesh Acevedo NP Specialist Cardiology 12/24/20 documented as of this encounter
--- OUTSIDE RECORDS SUMMARY | 2024-08-29 14:36 | XMS_ITS | Encounter Summary ---
Author Organization [facility] Address [address] [facility] 7t [place] [address] Care Team Providers Care Bracelet And Brooch Maker Name Role Phone Angela Luz MD Primary Care Provide r Ninfa Dietrich PharmD Unavailable [phone] Reason for Visit * Reason Comments Med Refill Encounter Details Date Type Department Care Team ([facility] st Contact Info) Description 07/31/2024 Refill [facility] MEDICINE [address] [place], [place] [phone] Angela Luz MD [address] [place], [place] [phone] Other chronic pain Social History Tobacco Use [...] Description 09/20/2024 10:00 AM EDT Medication Management [address] [address] Ninfa Dietrich PharmD [address] [place] [address] 10/17/2024 10:00 AM EDT Clinical Support [address] [address] Nazia Martins RN documented as of this [...] pain documented in this encounter Care Teams Bracelet And Brooch Maker Relationship Specialty Start Date End Date Angela Luz MD [address] [place] [address] PCP - General Family Medicine 10/27/20 Ninfa Dietrich, Shadia [address] [place] [address] Pharmacist Internal Medicine 11/10/23 [employer] 12/20/23 documented as of this encounter
--- OUTSIDE RECORDS SUMMARY | 2024-08-29 14:36 | XMS_ITS | Encounter Summary ---
Author Organization [facility] [facility] Address [address] [place] [address] Care Team Providers Care Low Pressure Firer Name Role Phone Angelica Guerra MD Primary Care Provider Unava ilable Angelica Guerra MD Unavailable Unavailable Stacie Easton PA-C Unavailable Mahesh Acevedo NP Unavailable [phone] [facility], Pcp Primary Care Provider Unavailabl e Reason for Visit * Reason Onset Date Comments E-prescribe Rx Request 03/11/2019 vitamin B -12 (CYANOCOBALAMIN) 1000 MCG tablet Encounter Details Date Type Department Care Team Description 03/11/2019 Telephone Adult Medicine [address] [address] Angelica Guerra MD E-prescribe Rx Request (vitamin B-12 (CYANOCOBALAMIN) 1000 MCG tablet) Social History Tobacco Use Types Packs/Day Years Used Date Smoking Tobacco: Former Smokeless Tobacco: Never Alcohol Use Standard Drinks/Week Comments No 0 (1 standard drink = 0.6 oz pur e alcohol) Sex Assigned at Date Recorded Not on file documented as of this encounter Miscellaneous Notes * Telephone Encounter - Lawanda Cruz M.A. - 03/11/2019 2:56 PM EDT Lab Results Component Value Date NA 142 12/10/2018 K 4.1 12/10/2018 CO2 27 12/10/2018 CL 107 12/10/2018 BUN 47 12/10/2018 CREAT 1.42 12/10/2018 GLU 230 12/10/2018 CA 9.5 12/10/2018 GFR 37 12/10/2018 * Telephone Encounter - Pauline Swan - 03/11/2019 2:04 PM EDT Patient would like script to be: E-PRESCRIBED/FAXED TO PHARMACY WHEN WAS THE PATIENT'S LAST APPOINTMENT IN ADULT MEDICINE? 12/13/18 WHEN WAS THE LAST TIME THE PATIENT SAW THEIR PCP? 11/20/18 Does patient have an upcoming appointment? Yes 03/21/19 (THE MEDICATION REQUESTED IS ON THE MED LIST ABOVE) All of the medications requested were on the CURRENT MEDS list Did you check the Pharmacy information above?: YES Patient wants: 30 -day supply Is this a mail order prescription request ? NO If the refill is from a FAXED refill request what is the RX # listed on the fax? N/A Patients current insurance carrier is: Payor: [employer] FFS / Plan: [employer]IANCE / Product Type: MEDICAID RISK documented in this encounter Plan of Treatment Not on file documented as of this encounter Visit Diagnoses Not on filedocumented in this encounter Care Teams Low Pressure Firer Relationship Specialty Start Date End Date Angelica Guerra MD PCP - General Internal Medicine 03/02/17 [facility] 08/02/21 Angelica Guerra MD 02/10/17 Stacie Easton PA-C Specialist Cardiology 12/24/20 Mahesh Acevedo NP Specialist Cardiology 12/24/20 documented as of this encounter
--- OUTSIDE RECORDS SUMMARY | 2024-08-29 14:36 | XMS_ITS | Encounter Summary ---
Author Organization [employer] Address [address] [facility] 7t [place] [address] Care Team Providers Care Quality Control Chemist Name Role Phone Angela Luz MD Primary Care Provide r Ninfa Dietrich PharmD Unavailable Reason for Visit * Reason Comments Med Refill Encounter Details Date Type Department Care Team (Late st Contact Info) Description 10/26/2022 Refill [facility] MEDICINE [address] [place], [place] [phone] Angela Luz MD [address] [place], [place] [phone] Type 2 diabetes mellitus with other specified complication, unspecified whether medical terminologist insulin use ([facility]) Social History Tobacco Use Types Packs/Day Years [...] Description 09/20/2024 10:00 AM EDT Medication Management [address] [address] Ninfa Dietrich PharmD [address] [place] [address] 10/17/2024 10:00 AM EDT Clinical Support [address] [address] Nazia Martins, DIAMOND documented as of this encounter Visit Diagnoses Diagnosis Type 2 diabetes mellitus with other specified complication, unspecified whether chcf insulin use ([facility]) documented in this encounter Care Teams Quality Control Chemist Relationship Specialty Start Date End Date Angela Luz MD [address] [place] [address] PCP - General Family Medicine 10/27/20 Ninfa Dietrich PharmD [address] [place] [address] Pharmacist Internal Medicine 11/10/23 [employer] 12/20/23 documented as of this encounter
--- OUTSIDE RECORDS SUMMARY | 2024-08-29 14:36 | XMS_ITS | Encounter Summary ---
Author Organization [employer] Address [address] [facility] 7t [place] [address] Care Team Providers Care Product Support Analyst Name Role Phone Angela Luz MD Primary Care Provide r Ninfa Dietrich PharmD Unavailable Reason for Visit * Reason Comments Med Refill Encounter Details Date Type Department Care Team ([facility] Contact Info) Description 06/30/2022 Refill [facility] MED & PEDS [address] [place] [address] Yunier Mohr MD [address] [place] [address] Seasonal allergic rhinitis, unspecified trigger Social History [...] Upcoming Encounters Date Type Department Care Team ([facility] Contact Info) Description 09/20/2024 10:00 AM EDT Medication Management [address] [address] Ninfa Dietrich PharmD [address] [place] [address] 10/17/2024 10:00 AM EDT Clinical Support [address] [address] Nazia Martins RN documented as of this encounter Visit Diagnoses Diagnosis Seasonal allergic rhinitis, unspecified trigger documented in this encounter Care Teams Product Support Analyst Relationship Specialty Start Date End Date Angela Luz MD [address] [place] [address] PCP - General Family Medicine 10/27/20 Ninfa Dietrich PharmD [address] [place] [address] Pharmacist Internal Medicine 11/10/23 [employer] 12/20/23 documented as of this encounter
--- OUTSIDE RECORDS SUMMARY | 2024-08-29 14:36 | XMS_ITS | Encounter Summary ---
Author Organization [employer] Address [address] [facility] 7t [place] [address] Care Team Providers Care Automatic Equipment Technician Name Role Phone Angela Luz MD Primary Care Provide r Ninfa Dietrich PharmD Unavailable Reason for Visit * Reason Comments Med Refill Encounter Details Date Type Department Care Team (Late Contact Info) Description 12/05/[address] [facility] MEDICINE [address] [place], [place] [phone] Gemini Lagunas MD [address] [place], [place] [phone] Type 2 diabetes mellitus with unspecified complications [...] Description 09/20/2024 10:00 AM EDT Medication Management [facility] MED[facility] [address] [place] [address] Ninfa Dietrich PharmD [address] [place] [address] 10/17/2024 10:00 AM EDT Clinical Support [facility] [address] [place] [address] Nazia Martins RN documented as of this encounter Visit Diagnoses Diagnosis Type 2 diabetes mellitus with unspecified complications (CMS/HCC) documented in this encounter Care Teams Automatic Equipment Technician Relationship Specialty Start Date End Date Angela Luz MD [address] [place] [address] PCP - General Family Medicine 10/27/20 Ninfa Dietrich PharmD [address] [place] [address] Pharmacist Internal Medicine 11/10/23 [employer] 12/20/23 documented as of this encounter
--- OUTSIDE RECORDS SUMMARY | 2024-08-29 14:37 | XMS_ITS | Encounter Summary ---
Author Organization [facility] Address [address] [place] [address] Care Team Providers Care Fun House Attendant Name Role Phone Angelica Guerra MD Primary Care Provider Unava ilable Lucia Montes Primary Care Provider Unavailab le Angelica Guerra MD Primary Care Provider Unava ilable Angelica Guerra MD Unavailable Unavailable Angelica Guerra MD Unavailable Unavailable Stacie Easton PA-C [facility]available [facility] NP Unavailable [phone] [facility], Pcp Primary Care Provider [facility] Encounter Details Date Type Department Care Team Description 06/07/2016 Government Affairs Researcher Report Medical Records [address] [place] [address] Zeina Renee [address] [place] [address] Social History Tobacco Use Types Packs/Day Years [...] on filedocumented in this encounter Care Teams Fun House Attendant Relationship Specialty Start Date End Date Angelica Guerra MD PCP - General 06/25/15 02/09/17 Lucia Montes PCP - General Internal Medicine 02/10/17 03/01/17 Angelica Guerra MD PCP - General Internal Medicine 03/02/17 08/01/21 [facility], Pcp PCP - General Internal Medicine 08/02/21 Angelica Guerra MD 06/25/15 02/09/17 Angelica Guerra MD 02/10/17 Stacie Easton PA-C Specialist Cardiology 12/24/20 Mahesh Acevedo NP Specialist Cardiology 12/24/20 documented as of this encounter
--- OUTSIDE RECORDS SUMMARY | 2024-08-29 14:37 | XMS_ITS | Encounter Summary ---
Author Organization [employer] [facility] Address [address] [place] [address] Care Team Providers Care Vacuum Frame Operator Name Role Phone Angelica Guerra MD Primary Care Provider Unava ilable Angelica Guerra MD Unavailable Unavailable Stacie Easton PA-C Unavailable Mahesh Acevedo NP Unavailable [phone] [facility], Pcp Primary Care Provider Unavailabl e Reason for Visit * Reason Onset Date Comments Faxed Refill 02/07/2019 Encounter Details Date Type Department Care Team Description 02/07/2019 Refill Adult Medicine [address] [address] Angelica Guerra MD Faxed Refill Social History Tobacco Use Types Packs/Day Years Used Date Smoking Tobacco: Former Smokeless Tobacco: Never Alcohol Use Standard Drinks/Week Comments No 0 (1 standard drink = 0.6 oz pur e alcohol) Sex Assigned at Date Recorded Not on file documented as of this encounter Miscellaneous Notes * Telephone Encounter - Thu Ann M.A. - 02/07/2019 4:42 PM EDT Lab Results Component Value Date HGBA1C 8.6 12/10/2018 MALBUR 31.7 12/10/2018 MALBCR 52.8 12/10/2018 CHOL 164 12/10/2018 LDL 71 12/10/2018 HDL 41 12/10/2018 TRIG 263 12/10/2018 GLU 230 12/10/2018 CREAT 1.42 12/10/2018 Pending ov with pcp 03/21/19 * Telephone Encounter - Zuly Hernandez - 02/07/2019 4:39 PM EDT Patient would like script to be: E-PRESCRIBED/FAXED TO PHARMACY WHEN WAS THE PATIENT'S LAST APPOINTMENT IN ADULT MEDICINE? 12-13-2018 WHEN WAS THE LAST TIME THE PATIENT SAW THEIR PCP? 11-20-2018 Does patient have an upcoming appointment? 03-21-2019 (THE MEDICATION REQUESTED IS ON THE MED [...] N/A Patients current insurance carrier is: Payor: [employer] FFS / Plan: [employer] / Product Type: MEDICAID RISK documented in this encounter Plan of Treatment Not on file documented as of this encounter Visit Diagnoses Not on filedocumented in this encounter Care Teams Vacuum Frame Operator Relationship Specialty Start Date End Date Angelica Guerra MD PCP - General Internal Medicine 03/02/17 08/01[facility]21 [facility] - General Internal Medicine 08/02/21 Angelica Guerra MD 02/10/17 Stacie Easton PA-C Specialist Cardiology 12/24/20 Mahesh Acevedo NP Specialist Cardiology 12/24/20 documented as of this encounter
--- OUTSIDE RECORDS SUMMARY | 2024-08-29 14:37 | XMS_ITS | Encounter Summary ---
[facility] Address [address] [place] [address] Care Team Providers Care Milk Hauler Name Role Phone Angelica Guerra MD Primary Care Provider Unava ilable Angelica Guerra MD Primary Care Provider Unava ilable Lucia Montes Primary Care Provider Unavailab le Angelica Guerra MD Primary Care Provider Unava ilable Angelica Guerra MD Unavailable Unavailable Angelica Guerra MD Unavailable Unavailable Stacie Easton PA-C Unavailable Mahesh Acevedo NP Unavailable [phone] [facility], Pcp Primary Care Provider Unavailabl e Encounter Details Date Type Department Care Team Description 06/20/2012 Parking Enforcer Report Medical Records [address] [place] [address] Anival Tuttle Social History Tobacco Use Types Packs/Day Years [...] on filedocumented in this encounter Care Teams Milk Hauler Relationship Specialty Start Date End Date Angelica Guerra MD PCP - General 02/10/11 06/24/15 Angelica Guerra MD PCP - General 06/25/15 02/09/17 Lucia Montes PCP - General Internal Medicine 02/10/17 03/01/17 Angelica Guerra MD PCP - General Internal Medicine 03/02/17 08/01/21 [facility], [facility] PCP - General Internal Medicine 08/02/21 Angelica Guerra MD 06/25/15 02/09/17 Angelica Guerra MD 02/10/17 Stacie Easton PA-C Specialist Cardiology 12/24/20 Mahesh Acevedo NP Specialist Cardiology 12/24/20 documented as of this encounter
--- OUTSIDE RECORDS SUMMARY | 2024-08-29 14:37 | XMS_ITS | Encounter Summary ---
Author Organization [facility] Address [address] [place] [address] Care Team Providers Care Framing And Hanging Name Role Phone Angelica Guerra MD Primary Care Provider Unava ilable Angelica Guerra MD Primary Care Provider Unava ilable Lucia Montes Primary Care Provider Unavailab le Angelica Guerra MD Primary Care Provider Unava ilable Angelica Guerra MD Unavailable Unavailable Angelica Guerra MD Unavailable Unavailable Stacie Easton PA-C Unavailable Mahesh Acevedo NP Unavailable [phone] [facility], Pcp Primary Care Provider Unavailabl e Encounter Details Date Type Department Care Team Description 04/10/2013 Controlled Substance Plan Medical Records [address] [place] [address] Abstract, Provider Social History Tobacco Use Types [...] on filedocumented in this encounter Care Teams Framing And Hanging Relationship Specialty Start Date End Date Angelica Guerra MD PCP - General 02/10/11 06/24/15 Angelica Guerra MD PCP - General 06/25/15 02/09/17 Lucia Montes PCP - General Internal Medicine 02/10/17 03/01/17 Angelica Guerra MD PCP - General Internal Medicine 03/02/17 08/01/21 [facility], [facility] PCP - General Internal Medicine 08/02/21 Angelica Guerra MD 06/25/15 02/09/17 Angelica Guerra MD 02/10/17 Stacie Easton PA-C Specialist Cardiology 12/24/20 Mahesh Acevedo NP Specialist Cardiology 12/24/20 documented as of this encounter
--- OUTSIDE RECORDS SUMMARY | 2024-08-29 14:37 | XMS_ITS | Encounter Summary ---
Author Organization [facility] Address [address] [place] [address] Care Team Providers Care Farm Operations Manager Name Role Phone Angelica Guerra MD Primary Care Provider Unava ilable Angelica Guerra MD Unavailable Unavailable Stacie Easton PA-C Unavailable Mahesh Acevedo NP Unavailable [phone] [facility], Pcp Primary Care Provider Unavailabl e Encounter Details Date Type Department Care Team Description 11/07/2018 Information Coder Report Medical Records [address] [place] [address] Yin Rebolledo [address] [place] [id number] Social History Tobacco Use Types Packs/Day Years [...] on filedocumented in this encounter Care Teams Farm Operations Manager Relationship Specialty Start Date End Date Angelica Guerra MD PCP - General Internal Medicine 03/02/17 08/01/21 [facility], Pcp PCP - General Internal Medicine 08/02/21 Angelica Guerra MD 02/10/17 Stacie Easton PA-C Specialist Cardiology 12/24/20 Mahesh Acevedo NP Specialist Cardiology 12/24/20 documented as of this encounter
--- OUTSIDE RECORDS SUMMARY | 2024-08-29 14:37 | XMS_ITS | Clinical Summary ---
Author Organization [facility] Address [address] [place] [address] Care Team Providers Care Assistant Press Operator Offset Name Role Phone Angelica Guerra MD Unavailable Unavailable Stacie Easton PA-C Unavailable Mahesh Acevedo NP Unavailable [phone] [facility], Pcp Primary Care Provider Unavailabl e Allergies Active Allergy Reactions Severity Noted Date Comments Latex Rash/Dermatitis 06/10/2019 Tramadol Hcl Swelling/Edema 10/06/2011 Medications Medication Sig Dispensed Refills Start Date End Date Status CPAP Historical (HISTORICAL CPAP)Indication s:Obstructive sleep apnea (adult) (pediatric) Inhale into the lungs at bedtime. [employer]-pressure 10 0 Active clonazepam (KLONOPIN) 1 MG tablet Take 1 Tab by mouth at bedtime as needed for Anxiety. 0 10/01/2013 Active buPROPion (WELLBUTRIN SR) 100 MG 12 hr tablet 1 Tab daily. 0 11/26/2013 Active Blood Glucose Monitoring Suppl (FREESTYLE LITE) Device Test blood sugar daily 1 Device 0 03/06/2017 Active fluticasone (FLONASE) 50 MCG/ACT nasal spray 2 Sprays by Nasal route daily. 1 Bottle 5 08/29/2017 Active FREESTYLE LANCETS Misc Test blood sugar 4 times daily. Dx E11.49 400 Each 1 02/08/2018 Active TRADJENTA 5 MG Tab Take 1 Tab by mouth daily. 0 03/21/2018 Active sertraline (ZOLOFT) 100 MG tablet Take 1 Tab by mouth daily. 0 02/09/2018 Active Glucose Blood (FREESTYLE LITE) Strip Test blood sugar 4 times daily 400 Strip 1 02/07/2019 Active aspirin (SB LOW DOSE ASA EC) 81 MG EC tablet Take 1 Tab by mouth daily. 90 Tab 1 12/05/2019 Active anastrozole (ARIMIDEX) 1 MG tablet Take 1 mg by mouth daily. 0 09/09/2019 Active D-3-5 5000 units Cap Take 1 Cap by mouth daily. 0 11/27/2019 Active mirtazapine (REMERON) 15 MG tablet Take 1 Tab by mouth at bedtime. 0 11/13/2019 Active Fluticasone Furoate-Vilante rol (BREO ELLIPTA) 100-25 MCG/INH AEROSOL POWDER,BREATH ACTIVATED Inhale 100 mcg into the lungs daily. 3 Each 3 02/28/2020 Active clotrimazole (LOTRIMIN) 1 % cream APPLY TO FEET TWICE DAILY FOR 6 WEEKS 30 g 5 04/07/2020 Active Diclofenac Sodium 1 % GelIndications: Breast pain APPLY TO THE AFFECTED AREA(S) TWICE DAILY DIRECTED 100 g 0 05/18/2020 Active benzonatate (TESSALON) 100 MG capsule Take 1 Cap by mouth 3 times daily as needed for Cough. Additional refills at appt 06/24/2020 30 Cap 0 06/08/2020 Active Insulin Pen Needle (ULTRA-THIN II MINI PEN NEEDLE) [facility] 4 times daily. Dx E11.49 400 Each 1 08/27/2020 Active folic acid (FOLVITE) 1 MG tablet Take 1 tablet by mouth daily. 30 tablet 5 09/21/2020 Active gabapentin (NEURONTIN) 600 MG tablet Take 1 tablet by mouth 3 times daily. 270 tablet 1 09/21/2020 Active losartan (COZAAR) 100 MG tablet Take 1 tablet by mouth daily. 90 tablet 1 09/21/2020 Active furosemide (LASIX) 40 MG tablet Take 1 tablet by mouth daily. 90 tablet 1 09/21/2020 Active vitamin B-12 (CYANOCOBALAMIN ) 1000 MCG tablet Take 1 tablet by mouth daily. 90 tablet 1 09/21/2020 Active omeprazole (PRILOSEC) 20 MG capsule Take 1 capsule by mouth daily. 90 capsule 1 09/21/2020 Active Insulin Regular Human, Conc, (HumuLIN R U-500 KwikPen) 500 UNIT/ML Solution Pen-injector Inject 120 Units into the skin every morning (before breakfast). And 80 units with supper 0 09/21/2020 Active albuterol (PROVENTIL) (2.5 MG/3ML) 0.083% nebulizer solution Take 1 Vial by nebulization every 4 hours as needed for Wheezing or Shortness of Breath. 100 Vial 5 09/28/2020 Active Ciclopirox 0.77 % GelIndications: Onychomycosis Apply to toenails once daily 60 g 2 10/05/2020 Active oxycodone-aceta minophen (Percocet) 5-325 MG per tabletIndicatio ns:Chronic neck pain Take 1 tablet by mouth every 6 hours as needed for Pain for up to 28 days. 112 tablet 0 10/27/2020 Active docusate sodium ([employer] STOOL SOFTENER) 100 MG capsule Take 1 Cap by mouth 2 times daily. 60 Cap 5 03/24/2020 Discontinued Active Problems Patient Care Coordination No te Formatting of this note is d ifferent from the original. Checking Your Blood Sugars Please check your blood sugars every day. Please check your sugars at the following times of day: before breakfast, before lunch and before dinner Your Blood Sugar Goals Pre Meal: 90-130 2 hours after meals: 110-160 Bedtime: 110-150 Use the Results ?? Bring your glucometer to every appointment ?? Write your fingerstick blood sugars down on a log sheet or record book. Bring them to your appointment ?? Look for patterns in the numbers. The results help you and your provider make decisions about your diabetes treatment plan. Your Results and your Goals Your Result / Date of Completion Your Goal / How Often to Assess Component Value Date HGBA1C 8.1 06/01/2015 Less than 7%--- 2-4 times per year BP Readings from Last 1 Encounters: 10/01/15 120/60 Less than 130/80--- once per year Component Value Date LDL 92 06/01/2015 LDL less than 100--- once per year Component Value Date MALBUR 40.5 02/23/2015 Less than 30--- once per year Wt Readings from Last 1 Encounters: 10/01/15 153 lb (69.4 kg) Your goal weight by next visit: 139 --- reassess 2-4 times a year Health Maintenance Due Topic Date Due ? ? Adult Immunization: Zostavax For Patients Over 60 2014 ? ? Diabetes: Annual Care Plan 09/03/2015 ? ? Diabetes: Blood Sugar Control Test (Hgba1c) 09/30/2015 Your Action Plan Check blood glucose as directed and write down all results. Check feet for sores every day Contact me if you experience any barriers to care such as inability to purchase your medication, difficulty getting to your appointments or difficulty understanding your care plan Please get your yearly flu shot When to Call your Healthcare Provider If your blood sugar falls below 70 and you do not know why or you become unconscious If you are sick and unable to take liquids because or nausea or vomiting If you have a fever over 101 If your blood sugar is 300 or higher on greater than 3 separate occasions during the same week If you are just unsure what to do Educational Resources [place] [employer] (www.diabetes.org) Centers for Disease Control and Prevention (www.cdc.gov/diabetes) This care plan was created in collaboration with Angela Dominguez on 10/01/2015 Problem Noted Date DM type 2 causing eye disease 12/04/2020 DM (diabetes mellitus), type 2 with eduard l complications 12/04/2020 DM (diabetes mellitus), type 2 with ellie pheral vascular complications 12/04/2020 Microalbuminuria 12/04/2020 Breast cancer, right 06/24/2019 Overview: Right partial mastectomy 07/11, invasive intraductal carcinoma Obesity (BMI 30-39.9) 04/01/2019 Cervical spondylosis with radiculopathy 03/26/2018 Overview: 2011 - Dr Guevara Moderate persistent asthma 08/07/2017 Overview: Methacholine challenge (+) CKD (chronic kidney disease) stage 3, GF R 30-59 ml/min 05/04/2017 Insomnia 10/05/2016 Chronic shoulder pain 09/16/2016 Overview: 2012 - right shoulder pain; complete rotator cuff tear s/p surgery DM (diabetes mellitus), type 2 with neur ological complications 12/17/2015 Venous insufficiency of leg 02/10/2014 Overview: S/p right endovenous ablation 2013 Hypertension 10/24/2013 B12 deficiency anemia 09/19/2012 Allergic rhinitis 09/18/2012 Solitary pulmonary nodule 06/11/2012 Overview: 01/[address] in [place]. Last CT (abd) 06/02/12 - 5x7 pulm nodule, recommended rpt CT to confirm 2 years of stability. Nonproliferative diabetic retinopathy Overview: Dr. Gee Oneal Obstructive sleep apnea mild overall 03/2012 RLS (restless legs syndrome) 10/06/2011 Anemia 09/20/2011 Overview: Seeing Dr. Adams. Labs have been unremarkable including LDH, hapto, iron, B12. Pt declines BMBx. Expectant mgt PAD (peripheral artery disease) 02/16/20 11 Hyperlipidemia 02/15/2011 Glaucoma 02/15/2011 Gastroparesis 02/14/2011 Last Assessment & Plan: Pt is currently taking Lantus 50 units daily at 7pm. She will stop Humulin R and start Humalog 4 units before each meal with sliding scale coverage for elevations BS 200-250, add 2 units BS 251-300, add 4 units BS 301-350, add 6 units Resolved Problems Problem Noted Date Resolved Date Post-nasal drainage 04/06/2018 07/25/2019 Methacholine challenge positive 10/04/2017 09/22/2019 Heel pain 06/01/2015 07/25/2019 Diabetic gastroparesis 01/25/2012 3 Pelvic mass 02/14/2011 03/28/2013 Overview: S/p LESLEE-BSO. Sees dr. Anival Tuttle at [facility] Immunizations Name Administration Dates Next Due COVID-19 (Pfizer) Pt Reported 07/30/2020,02/11/2 021 Influenza (> 6 Months) 05/02/2016,2014,04/24/2014,03/28,02/13/2012 Influenza Vaccine-preservati ve Free-quadrivalent 4 Years 03/21/2019 Influenza Vaccine-quadrivale nt 4 Years Plus 04/19/2017 Pneumoccoccal(Adult) Polysac charide PPSV23 05/08/2017,09/02/2014 Tdap 03/28/2013 Family History Medical History Relation Name Comments Thyroid Disorder Daughter x2 CA Breast Negative Hx CA Ovarian Negative Hx Relation Name Status Comments Daughter Social History Tobacco Use Types Packs/Day Years Used Date Smoking Tobacco: Former Smokeless Tobacco: Never Alcohol Use Standard Drinks/Week Comments No 0 (1 standard drink = 0.6 oz pur e alcohol) Sex Assigned at Date Recorded Not on file Last Filed Vital Signs Vital Sign Reading Time Taken Comments Blood Pressure 138/59 09/21/2020 10:55 AM EDT Pulse 59 09/21/2020 10:55 AM EDT Temperature 36.5 ??C (97.7 ??F) 09/02/2021 9:16 AM ED T Respiratory Rate 16 09/21/2020 10:54 AM EDT Oxygen Saturation 96% 08/12/2020 9:13 AM EDT Inhaled Oxygen Concentration - - Weight 72.6 kg (160 lb) 11/04/2021 8:32 AM EDT Height 144.8 cm (4' 9 ) 11/04/2021 8:32 AM EDT Body Mass Index 34.62 11/04/2021 8:32 AM EDT Plan of Treatment Health Maintenance Due Date Last Done Comments SHINGLES VACCINE (1 of 2) 2004 DIABETES: ANNUAL EYE EXAM 07/11/20192018, 01/17/2018, 11/16/2017, Additional history exists PNEUMOCOCCAL VACCINE (2 - PCV) 10/24/2019 05/08/2017 , 09/02/2014 DIABETES: ANNUAL FOOT EXAM 02/12/202002/11, 10/09/2018, 04/10/2018, Additional history exists DIABETES: BLOOD SUGAR CONTRO L TEST (HGBA1C) 10/05/2020 07/08/2020, 12/06/2019, 07/24/2019 (External Completion), Additional history exists DIABETES/HEART DISEASE: ISHAAN AL CHOLESTEROL (LDL) 07/08/2021 07/08/2020, 12/06/2019, 06/18/2019, Additional history exists DIABETES: ANNUAL URINE PROTE IN TEST (MICROALBUMIN) 07/08/2021 07/08/2020, 12/06/2019, 06/18/2019, Additional history exists COLON CANCER SCREENING 08/18/2021 08/19/2011 BONE DENSITY SCREENING 12/01/2021 12/02/2019 MAMMOGRAM 03/08/2022 03/08/2021, 02/19, 03/06/2020, Additional history exists DTAP/TDAP/TD (3 - Td or Tdap) 03/28/2023 03/28/2013, 08/21/2012 Covid-19 Vaccine (2022-06 4 season) 2024 06/10/2022, 10/07/2021, 03/02/2021, Additional history exists BMI CHECK/ADVISE 05/22/2024 09/21/2020, , 06/24/2020, Additional history exists DEPRESSION SCREENING/FOLLOWUP 05/22/2024 06/17/2019, 12/13/2018 INFLUENZA (Season Ended) 2025 019, 04/19/2017, 05/02/2016, Additional history exists HEPATITIS C SCREENING Completed 12/25/2012 Care Teams Assistant Press Operator Offset Relationship Specialty Start Date End Date [facility], Pcp PCP - General Internal Medicine 08/02/21 Angelica Guerra MD 02/10/17 Stacie Easton PA-C Specialist Cardiology 12/24/20 Mahesh Acevedo NP Specialist Cardiology 12/24/20
--- OUTSIDE RECORDS SUMMARY | 2024-08-29 14:37 | XMS_ITS | Encounter Summary ---
Author Organization [facility] Address [address] [place] [address] Care Team Providers Care Occupational Health And Safety Adviser Name Role Phone Angelica Guerra MD Primary Care Provider Unava ilable Angelica Guerra MD Unavailable Unavailable Stacie Easton PA-C Unavailable Mhaesh Acevedo NP Unavailable [phone] [facility], Pcp Primary Care Provider Unavailabl e Encounter Details Date Type Department Care Team Description 02/22/2019 Alum Plant Operator Report Medical Records [address] [place] [address] Willy Avilez Social History Tobacco Use Types [...] on filedocumented in this encounter Care Teams Occupational Health And Safety Adviser Relationship Specialty Start Date End Date Angelica Guerra MD PCP - General Internal Medicine 03/02/17 08/01/21 [facility], Pcp PCP - General Internal Medicine 08/02/21 Angelica Guerra MD 02/10/17 Stacie Easton PA-C Specialist Cardiology 12/24/20 Mahesh Acevedo NP Specialist Cardiology 12/24/20 documented as of this encounter
--- OUTSIDE RECORDS SUMMARY | 2024-08-29 14:37 | XMS_ITS | Encounter Summary ---
Author Organization [facility] Address [address] [place] [address] Care Team Providers Care Director Smb Sales Name Role Phone Angelica Guerra MD Primary Care Provider Unava ilable Angelica Guerra MD Unavailable Unavailable Stacie Easton PA-C Unavailable Mahesh Acevedo NP Unavailable [phone] [facility], Pcp Primary Care Provider Unavailabl e Encounter Details Date Type Department Care Team Description 02/05/2020 [facility] Medical Records [address] [place] [id number] Abstract, Provider Social History Tobacco Use Types Packs/Day Years Used Date Smoking Tobacco: Former Smokeless Tobacco: Never Alcohol Use Standard Drinks/Week Comments No 0 (1 standard drink = 0.6 oz pur e alcohol) Sex Assigned at Date Recorded Not on file COVID-19 Exposure Response Date Recorded In the last month, have you been in contact with someone who was confirmed or suspected to have Coronavirus / COVID-19? No / Unsure 02/05/2020 10:29 AM EDT documented as of this encounter Plan of Treatment Not on file documented as of this encounter Visit Diagnoses Not on filedocumented in this encounter Care Teams Director Smb Sales Relationship Specialty Start Date End Date Angelica Guerra MD PCP - General Internal Medicine 03/02/17 08/01/21 [facility], Pcp PCP - General Internal Medicine 08/02/21 Angelica Guerra MD 02/10/17 Stacie Easton PA-C Specialist Cardiology 12/24/20 Mahesh Acevedo NP Specialist Cardiology 12/24/20 documented as of this encounter
--- OUTSIDE RECORDS SUMMARY | 2024-08-29 14:37 | XMS_ITS | Encounter Summary ---
Author Organization [facility] Address [address] [place] [address] Care Team Providers Care Sheet Metal Operator Name Role Phone Angelica Guerra MD Primary Care Provider Unava ilable Angelica Guerra MD Primary Care Provider Unava ilable Lucia Montes Primary Care Provider Unavailab le Angelica Guerra MD Primary Care Provider Unava ilAngelica Killian MD Unavailable Unavailable Angelica Guerra MD Unavailable Unavailable Stacie Easton PA-C Unavailable [facility] Unavailable [phone] [facility], Pcp Primary Care Provider Unavailabl e Reason for Visit * Reason Onset Date Comments Testing 06/18/2013 CT Lumbar Spine Encounter Details Date Type Department Care Team Description 06/18/2013 Telephone Cardiology - [address] [address] Oziel Crowley MD Testing (CT Lumbar Spine) Social History Tobacco Use Types Packs/Day Years Used Date Smoking Tobacco: Never Smokeless Tobacco: Never Alcohol Use Standard Drinks/Week Comments No 0 (1 standard drink = 0.6 oz pur e alcohol) Sex Assigned at Date Recorded Not on file documented as of this encounter Miscellaneous Notes * Telephone Encounter - Linda Snider - 06/18/2013 9:59 AM EST Insurance denied request for Lumbar Spine. [facility] [place] we are unable to authorize the requested procedure based on [facility] Spine Imaging Guidelines which might support advanced imagingin the evaluation of suspected or known spinal disease with one of the followin.) failure to improve after a recent 6 week trial of physician -guided clinical care with clinical re- evaluation or 2.) any signs or symptoms such as significant motor weakness, severe and worsening pain, recent malignancy or infection. I did submit all related clinical material but unfortunately it did not meet criteria. Please contact physician review to discuss this case at option 4 [facility] Case # [id number] Thank you documented in this encounter Plan of Treatment Not on file documented as of this encounter Visit Diagnoses Not on filedocumented in this encounter Care Teams Sheet Metal Operator Relationship Specialty Start Date End Date Angelica Guerra MD PCP - General 02/10/11 06/24/15 Angelica Guerra MD PCP - General 06/25/15 02/09/17 Lucia Montes PCP - General Internal Medicine 02/10/17 03/01/17 Angelica Guerra MD PCP - General Internal Medicine 03/02/17 08/01/21 [facility], Pcp PCP - General Internal Medicine 08/02/21 Angelica Guerra MD 06/25/15 02/09/17 Angelica Guerra MD 02/10/17 Stacie Easton PA-C Specialist Cardiology 12/24/20 Mahesh Acevedo NP Specialist Cardiology 12/24/20 documented as of this encounter
--- OUTSIDE RECORDS SUMMARY | 2024-08-29 14:37 | XMS_ITS | Encounter Summary ---
Author Organization [facility] Address [address] [place] [address] Care Team Providers Care Cut Off Sawyer Shingle Mill Name Role Phone Angelica Guerra MD Primary Care Provider Unava ilable Angelica Guerra MD Primary Care Provider Unava ilable Lucia Montes Primary Care Provider Unavailab le Angelica Guerra MD Primary Care Provider Unava ilAngelica Killian MD Unavailable Unavailable Angelica Guerra MD Unavailable Unavailable Stacie Easton PA-C Unavailable [facility] m[facility] NP Unavailable [phone] [facility], Pcp Primary Care Provider Unavailabl e Reason for Visit * Reason Onset Date Comments refill request 05/10/2013 Encounter Details Date Type Department Care Team Description 05/10/2013 Refill Adult Medicine [address] [address] Angelica Guerra MD refill request Social History Tobacco Use Types Packs/Day Years Used Date Smoking Tobacco: Never Smokeless Tobacco: Never Alcohol Use Standard Drinks/Week Comments No 0 (1 standard drink = 0.6 oz pur e alcohol) Sex Assigned at Date Recorded Not on file documented as of this encounter Miscellaneous Notes * Telephone Encounter - Kay Velasquez M.A. - 05/10/2013 4:14 PM EST Uds ordered, son in law informed pt needs to do uds before rx p/u. Rx in pod * Telephone Encounter - Ava Beckham PA-C - 05/10/2013 11:26 AM EST Please order UDS and hold RX in PPU until UDS is completed * Telephone Encounter - Kay Velasquez M.A. - 05/10/2013 11:16 AM EST Controlled substance contract and last issue date of medication reviewed. Patient is due for medication. No results found for this basename: urineoxycod, URBENZO, URAMPHETAMIN, URMARIJUANA, UROPIATES, URBARBITUATE, URCOCAINE, LHYDROCO, LHM, URINEETOH, METHADONE, HYDROCODONE * Telephone Encounter - Lizbet Thomas - 05/10/2013 10:36 AM EST Patient would like script to be: PLACED IN PATIENT STAFF DEVELOPMENT COORDINATOR RN WHEN WAS THE PATIENT'S LAST APPOINTMENT IN ADULT MEDICINE? [id number] WHEN WAS THE LAST TIME THE PATIENT SAW THEIR PCP? Same as above Does patient have an upcoming appointment? No-unable to reach left [facility] to call for appointment due to refill request. Appt due [id number] (THE MEDICATION REQUESTED IS ON THE MED LIST ABOVE) All of the medications requested were on the CURRENT MEDS list Did you check the Pharmacy information above?: NO Patient wants: 30 -day supply Is this a mail order prescription request ? NO Patients current insurance carrier is: Payor: [employer] FFS Plan: FFS HMO $0 [id number] Product Type: MEDICAID RISK documented in this encounter Plan of Treatment Not on file documented as of this encounter Results * ASSAY, DIHYDROCODEINONE (05/13/2013 9:01 AM EST) HYDROCODONE UR GCMS Negative . ng/mL 05/18/2013 6:06 PM EST [facility] HYDROMORPHONE UR GCMS Negative . ng/mL 05/18/2013 6:06 PM EST [facility] Comment: Performed at: ??[employer] [facility] [employer] [address] ??[id number] Director Of Child Welfare Services: Bj Breen MD, Phone: ??[phone] 05/13/2013 9:01 AM EST 05/13/2013 9:01 AM EST Angelica Guerra MD LAB Performing Organization Address City/[facility]/ZIP Co de Phone Number [facility] Lighting by LED * (ABNORMAL) OXYCODONE, URINE (05/13/2013 9:01 AM EST) URINE OXYCODONE LEVEL POSITIVE( A) NEGATIVE 05/13/2013 11:00 AM EST [facility] Comment: Semi-quantitative urine assay for screening purposes only. Unconfirmed screening results should not be used for non-medical purposes. ALTERNATE METHOD CONFIRMATION DONE UPON REQUEST ONLY 05/13/2013 9:01 AM EST 05/13/2013 9:01 AM EST Angelica Gurera MD LAB [address] * (ABNORMAL) DRUG OF ABUSE SCREEN (05/13/2013 9:01 AM EST) AMPHETAMINE, URINE NEGATIVE NEGATIVE 05/13/2013 10:42 AM EST [facility] BARBITURATES, URINE NEGATIVE NEGATIVE 05/13/2013 10:41 AM [facility] BENZODIAZEPINE, URINE POSITIVE(A) NEGATIVE 05/13/2013 11:00 AM [facility] Comment: Semi-quantitative urine assay for screening purposes only. Unconfirmed screening results should not be used for non-medical purposes. ALTERNATE METHOD CONFIRMATION DONE UPON REQUEST ONLY COCAINE, URINE NEGATIVE NEGATIVE 05/13/2013 10:42 AM EST [facility] OPIATES, URINE NEGATIVE NEGATIVE 05/13/2013 10:44 AM EST [facility] MARIJUANA(THC), URINE NEGATIVE NEGATIVE 05/13/2013 10:42 AM [facility] 05/13/2013 9:01 AM EST 05/13/2013 9:01 AM EST Angelica Guerra MD LAB Performing Organization Address City/State/[facility] de Phone Number [facility] [address] documented in this encounter Visit Diagnoses Diagnosis Encounter for long-term (current) use of other medications- Primary documented in this encounter Care Teams Cut Off Sawyer [place] [place] Relationship Specialty Start Date End Date Angelica Guerra MD PCP - General 02/10/11 06/24/15 Angelica Guerra MD PCP - General 06/25/15 02/09/17 Lucia Montes PCP - General Internal Medicine 02/10/17 03/01/17 Angelica Guerra MD PCP - General Internal Medicine 03/02/17 08/01/21 [facility] Pcp PCP - General Internal Medicine 08/02/21 Angelica Guerra MD 06/25/15 02/09/17 Angelica Guerra MD 02/10/17 Stacie Easton PA-C Specialist Cardiology 12/24/20 Mahesh Acevedo NP Specialist Cardiology 12/24/20 documented as of this encounter
--- OUTSIDE RECORDS SUMMARY | 2024-08-29 14:37 | XMS_ITS | Encounter Summary ---
Author Organization [facility] Address [address] [place] [address] Care Team Providers Care Physician Obstetrician Name Role Phone Angelica Guerra MD Primary Care Provider Unava ilable Angelica Guerra MD Unavailable Unavailable Stacie Easton PA-C Unavailable Mahesh Acevedo NP Unavailable [phone] [facility], Pcp Primary Care Provider Unavailabl e Encounter Details Date Type Department Care Team Description 01/17/2019 SCAN Medical Records [address] [place] [address] Stacie Easton PA-C [address] [place], [place] [phone] Social History Tobacco Use Types Packs/Day Years Used Date Smoking Tobacco: Former Smokeless Tobacco: Never Alcohol Use Standard Drinks/Week Comments No 0 (1 standard drink = 0.6 oz pur e alcohol) Sex Assigned at Date Recorded Not on file documented as of this encounter Plan of Treatment Not on file documented as of this encounter Procedures Procedure Name Priority Date/Time Associated Diagnosis Comments OUTSIDE EKG Routine 01/17/2019 documented in this encounter Results * OUTSIDE EKG (01/17/2019) Provider Default CARDIOLOGY documented in this encounter Visit Diagnoses Not on filedocumented in this encounter Care Teams Physician Obstetrician Relationship Specialty Start Date End Date Angelica Guerra MD PCP - General Internal Medicine 03/02/17 08/01/21 [facility], Pcp PCP - General Internal Medicine 08/02/21 Angelica Guerra MD 02/10/17 Stacie Easton PA-C Specialist Cardiology 12/24/20 Mahesh Acevedo NP Specialist Cardiology 12/24/20 documented as of this encounter
--- OUTSIDE RECORDS SUMMARY | 2024-08-29 14:37 | XMS_ITS | Encounter Summary ---
Author Organization [employer] Address [address] [place] [address] Care Team Providers Care Weed Thinner Name Role Phone Angela Luz MD Primary Care Provide r Ninfa Dietrich PharmD Unavailable [phone] Reason for Visit * Reason Onset Date Comments Med Refill 05/30/2023 Encounter Details Date Type Department Care Team (Late st Contact Info) Description 05/30/2023 Refill [facility] MEDICINE [address] [place], [place] [phone] Lashonda Alvarado MD [address] [place], [place] [phone] Constipation, unspecified constipation type Social History Tobacco [...] Description 09/20/2024 10:00 AM EDT Medication Management [address] [address] Ninfa Dietrich PharmD [address] [place] [address] 10/17/2024 10:00 AM EDT Clinical Support [address] [address] Nazia Martins RN documented as of this encounter Visit Diagnoses Diagnosis Constipation, unspecified constipation type documented in this encounter Care Teams Weed Thinner Relationship Specialty Start Date End Date Angela Luz MD [address] [place] [id number] PCP - General Family Medicine 10/27/20 Ninfa Dietrich PharmD [address] [place] [address] [phone] Pharmacist Internal Medicine 11/10/23 [facility] 12/20/23 documented as of this encounter
--- OUTSIDE RECORDS SUMMARY | 2024-08-29 14:37 | XMS_ITS | Encounter Summary ---
Author Organization [facility] Address [address] [place] [address] Care Team Providers Care Manager Money Name Role Phone Angelica Guerra MD Primary Care Provider Unava ilable Lucia Montes Primary Care Provider Unavailab le Angelica Guerra MD Primary Care Provider Unava ilable Angelica Guerra MD Unavailable Unavailable Angelica Guerra MD Unavailable Unavailable Stacie Easton PA-C Unavailable [facility] m[facility] NP Unavailable [phone] [facility], Pcp Primary Care Provider [facility]ail[facility] e Encounter Details Date Type Department Care Team Description 07/13/2016 Salt Cutter Report Medical Records [address] [place] [id number] Abstract, Provider Social History Tobacco Use Types [...] on filedocumented in this encounter Care Teams Manager Money Relationship Specialty Start Date End Date Angelica Guerra MD PCP - General 06/25/15 02/09/17 Lucia Montes PCP - General Internal Medicine 02/10/17 03/01/17 Angelica Guerra MD PCP - General Internal Medicine 03/02/17 08/01/21 [facility], Pcp PCP - General Internal Medicine 08/02/21 Angelica Guerra MD 06/25/15 02/09/17 Angelica Guerra MD 02/10/17 Stacie Easton PA-C Specialist Cardiology 12/24/20 Mahesh Acevedo NP Specialist Cardiology 12/24/20 documented as of this encounter
--- OUTSIDE RECORDS SUMMARY | 2024-08-29 14:37 | XMS_ITS | Encounter Summary ---
Author Organization [facility] Address [address] [place] [address] Care Team Providers Care Awning Finisher Name Role Phone Angelica Guerra MD Primary Care Provider Unava ilable Angelica Guerra MD Primary Care Provider Unava ilable Lucia Montes Primary Care Provider Unavailab le Angelica Guerra MD Primary Care Provider Unava ilable Angelica Guerra MD Unavailable Unavailable Angelica Guerra MD Unavailable Unavailable Stacie Easton PA-C Unavailable [facility] m[facility] NP Unavailable [phone] [facility] Primary Care Provider Unavailabl e Encounter Details Date Type Department Care Team Description 01/03/2013 Transfer Records Medical Records [address] [place] [address] Abstract, Provider Social History Tobacco Use Types [...] on filedocumented in this encounter Care Teams Awning Finisher Relationship Specialty Start Date End Date Angelica Guerra MD PCP - General 02/10/11 06/24/15 Angelica Guerra MD PCP - General 06/25/15 02/09/17 Lucia Montes PCP - General Internal Medicine 02/10/17 03/01/17 Angelica Guerra MD PCP - General Internal Medicine 03/02/17 08/01/21 [facility] PCP - General Internal Medicine 08/02/21 Angelica Guerra MD 06/25/15 02/09/17 Angelica Guerra MD 02/10/17 Stacie Easton PA-C Specialist Cardiology 12/24/20 Mahesh Acevedo NP Specialist Cardiology 12/24/20 documented as of this encounter
--- OUTSIDE RECORDS SUMMARY | 2024-08-29 14:37 | XMS_ITS | Encounter Summary ---
Author Organization [facility] Address [address] [place] [address] Care Team Providers Care Supervisor Electronic Coils Name Role Phone Angelica Guerra MD Primary Care Provider Unava ilable Lucia Montes Primary Care Provider Unavailab Angelica Jeong MD Primary Care Provider Unava ilable Angelica Guerra MD Unavailable Unavailable Angelica Guerra MD Unavailable Unavailable Stacie Easton PA-C Unavailable [facility] NP Unavailable [phone] [facility], Pcp Primary Care Provider Unavailabl e Reason for Visit * Reason Onset Date Comments Faxed Refill 12/01/2016 Encounter Details Date Type Department Care Team Description 12/01/2016 Refill Adult Medicine [address] [address] Angelica Guerra MD Faxed Refill Social History Tobacco Use Types Packs/Day Years Used Date Smoking Tobacco: Former Smokeless Tobacco: Never Alcohol Use Standard Drinks/Week Comments No 0 (1 standard drink = 0.6 oz pur e alcohol) Sex Assigned at Date Recorded Not on file documented as of this encounter Miscellaneous Notes * Telephone Encounter - Kaci Arevalo M.A. - 12/02/2016 10:03 AM EDT Lab Results Component Value Date NA 143 04/21/2016 K 4.3 04/21/2016 CO2 31.3 04/21/2016 CL 100 04/21/2016 BUN 23 04/21/2016 CREAT 1.2 04/21/2016 GLU 184 04/21/2016 CA 9.6 04/21/2016 GFR 49 04/21/2016 * Telephone Encounter - Crys Suh L.P.N. - 12/01/2016 4:51 PM EDT Last script 02/2016 with 5 refills would of ran out Telephone Information: Pt nor dtr speaks mohawk Sienna got on the phone Asked if someone could call us tomorrow, who speaks Bengali * Telephone Encounter - Renae Dominguez - 12/01/2016 4:44 PM EDT Patient would like script to be: E-PRESCRIBED/FAXED TO PHARMACY WHEN WAS THE PATIENT'S LAST APPOINTMENT IN ADULT MEDICINE? 09/12/2016 WHEN WAS THE LAST TIME THE PATIENT SAW THEIR PCP? Same as above Does patient have an upcoming appointment? Yes 01/04/2017 (THE MEDICATION REQUESTED IS ON THE MED LIST ABOVE) All of the medications requested were on the CURRENT MEDS list Did you check the Pharmacy information above?: YES Patient wants: 30 -day supply Is this a mail order prescription request ? YES Patients current insurance carrier is: Payor: [employer] / Plan: [employer] $0 [place] [id number] / Product Type: MEDICAID [id number] documented in this encounter Plan of Treatment Not on file documented as of this encounter Visit Diagnoses Diagnosis Essential hypertension, benign Atypical chest pain Other chest pain documented in this encounter Care Teams Supervisor Electronic Coils Relationship Specialty Start Date End Date Angelica Guerra MD PCP - General 06/25/15 02/09/17 Lucia Montes PCP - General Internal Medicine 02/10/17 03/01/17 Angelica Guerra MD PCP - General Internal Medicine 03/02/17 08/01/21 [facility] PCP - General Internal Medicine 08/02/21 Angelica Guerra MD 06/25/15 02/09/17 Angelica Guerra MD 02/10/17 Stacie Easton PA-C Specialist Cardiology 12/24/20 Mahesh Acevedo NP Specialist Cardiology 12/24/20 documented as of this encounter
--- OUTSIDE RECORDS SUMMARY | 2024-08-29 14:37 | XMS_ITS | Encounter Summary ---
Author Organization [employer] Address [address] [facility] 7t [place] [address] Care Team Providers Care Circular Ripsaw Operator Name Role Phone Angela Luz MD Primary Care Provide r Ninfa Dietrich PharmD Unavailable [phone] Reason for Visit * Reason Onset Date Comments Med Refill 05/30/2023 Encounter Details Date Type Department Care Team (Late st Contact Info) Description 05/30/2023 Refill [facility] MEDICINE [address] [place], [place] [phone] Gemini Lagunas MD [address] [place], [place] [phone] Primary hypertension Social History Tobacco Use Types [...] Description 09/20/2024 10:00 AM EDT Medication Management [address] [address] Ninfa Dietrich PharmD [address] [place] [phone] 10/17/2024 10:00 AM EDT Clinical Support [address] [address] Nazia Martins RN documented as of this encounter Visit Diagnoses Diagnosis Primary hypertension Unspecified essential hypertension documented in this encounter Care Teams Circular Ripsaw Operator Relationship Specialty Start Date End Date Angela Luz MD [address] [place] [address] PCP - General Family Medicine 10/27/20 Ninfa Dietrich, PharmD [address] [place] [phone] Pharmacist Internal Medicine 11/10/23 [employer] 12/20/23 documented as of this encounter
--- OUTSIDE RECORDS SUMMARY | 2024-08-29 14:37 | XMS_ITS | Encounter Summary ---
Author Organization [employer] Address [address] [place] [address] Care Team Providers Care Siderographer Name Role Phone Angela Luz MD Primary Care Provide r Ninfa Dietrich PharmD Unavailable [phone] Reason for Visit * Reason Comments Med Refill Encounter Details Date Type Department Care Team (Late st Contact Info) Description 05/30/2023 Refill [facility] MEDICINE [address] [place], [place] [phone] Angela Cornell MD [address] [place], [place] [phone] Type 2 diabetes mellitus with stage 3 [...] Description 09/20/2024 10:00 AM EDT Medication Management [facility] MEDICINE [address] [place] [address] Ninfa Dietrich PharmD [address] [place] [address] 10/17/2024 10:00 AM EDT Clinical Support [address] [address] Nazia Martins RN documented as of this encounter Visit Diagnoses Diagnosis Type 2 diabetes mellitus with stage 3 chronic kidney disease, with long-term current use of insulin, unspecified whether stage 3a or 3b CKD (CMS/HCC) documented in this encounter Care Teams Siderographer Relationship Specialty Start Date End Date Angela Luz MD [address] [place] [phone] PCP - General Family Medicine 10/27/20 Ninfa Dietrich PharmD [address] [place] [phone] Pharmacist Internal Medicine 11/10/23 [employer] 12/20/23 documented as of this encounter
--- OUTSIDE RECORDS SUMMARY | 2024-08-29 14:37 | XMS_ITS | Encounter Summary ---
Author Organization [facility] Address [address] [place] [address] Care Team Providers Care Donor Services Technician Name Role Phone Angelica Guerra MD Primary Care Provider Unava ilable Lucia Montes Primary Care Provider Unavailab le Angelica Guerra MD Primary Care Provider Unava ilable Angelica Gurera MD Unavailable Unavailable Angelica Guerra MD Unavailable Unavailable Stacie Easton PA-C Unavailable [facility] m[facility] NP Unavailable [phone] [facility], Pcp Primary Care Provider [facility] e Encounter Details Date Type Department Care Team Description 11/29/2016 Community Outreach Manager Report Medical Records [address] [place] [address] Zeina Renee [address] [place] [address] Social History Tobacco Use Types Packs/Day Years [...] on filedocumented in this encounter Care Teams Donor Services Technician Relationship Specialty Start Date End Date Angelica Guerra MD PCP - General 06/25/15 02/09/17 Lucia Montes PCP - General Internal Medicine 02/10/17 03/01/17 Angelica Guerra MD PCP - General Internal Medicine 03/02/17 08/01/21 [facility], Pcp PCP - General Internal Medicine 08/02/21 Angelica Guerra MD 06/25/15 02/09/17 Angelica Guerra MD 02/10/17 Stacie Easton PA-C Specialist Cardiology 12/24/20 Mahesh Acevedo NP Specialist Cardiology 12/24/20 documented as of this encounter
--- OUTSIDE RECORDS SUMMARY | 2024-08-29 14:37 | XMS_ITS | Encounter Summary ---
Author Organization [facility] Address [address] [place] [address] Care Team Providers Care Professional Development Instructor Name Role Phone Angelica Guerra MD Primary Care Provider Unava ilable Lucia Montes Primary Care Provider Unavailab le Angelica Guerra MD Primary Care Provider Unava ilable Angelica Guerra MD Unavailable Unavailable Angelica Guerra MD Unavailable Unavailable Stacie Easton PA-C Unavailable [facility] NP Unavailable [phone] [facility], Pcp Primary Care Provider [facility] Encounter Details Date Type Department Care Team Description 01/18/2016 Home Aide Report Medical Records [address] [place] [address] Jhony Rivero MD Social History Tobacco Use Types Packs/Day [...] on filedocumented in this encounter Care Teams Professional Development Instructor Relationship Specialty Start Date End Date Angelica Guerra MD PCP - General 06/25/15 02/09/17 Lucia Montes PCP - General Internal Medicine 02/10/17 03/01/17 Angelica Guerra MD PCP - General Internal Medicine 03/02/17 08/01/21 [facility], Pcp PCP - General Internal Medicine 08/02/21 Angelica Guerra MD 06/25/15 02/09/17 Angelica Guerra MD 02/10/17 Stacie Easton PA-C Specialist Cardiology 12/24/20 Mahesh Acevedo NP Specialist Cardiology 12/24/20 documented as of this encounter
--- OUTSIDE RECORDS SUMMARY | 2024-08-29 14:37 | XMS_ITS | Encounter Summary ---
Author Organization [facility] Address [address] [place] [address] Care Team Providers Care Nutritionist Public Health Name Role Phone Angelica Guerra MD Primary Care Provider Unava ilable Lucia Montes Primary Care Provider Unavailab le Angelica Guerra MD Primary Care Provider Unava ilable Angelica Guerra MD Unavailable Unavailable Angelica Guerra MD Unavailable Unavailable Stacie Easton PA-C Unavailable [facility] NP Unavailable [phone] [facility], Pcp Primary Care Provider [facility] e Encounter Details Date Type Department Care Team Description 10/12/2016 Engineering Secretary Report Medical Records [address] [place] [id number] [place] [address] Social History Tobacco Use Types Packs/Day Years [...] on filedocumented in this encounter Care Teams Nutritionist Public Health Relationship Specialty Start Date End Date Angelica [...]
--- OUTSIDE RECORDS SUMMARY | 2024-08-29 14:37 | XMS_ITS | Encounter Summary ---
Author Organization [employer] Address [address] [place] [address] Care Team Providers Care Fish Hatchery Assistant Name Role Phone Angela Luz MD Primary Care Provide r Ninfa Dietrich PharmD Unavailable [phone] Reason for Visit * Reason Onset Date Comments Med Refill 05/30/2023 Encounter Details Date Type Department Care Team (Late st Contact Info) Description 05/30/2023 Refill [facility] MEDICINE [address] [place], [place] [phone] Yunier Mohr MD [address] [place], [place] [phone] Forgetfulness Social History Tobacco Use Types Packs/Day [...] Description 09/20/2024 10:00 AM EDT Medication Management [address] [address] Ninfa Dietrich PharmD [address] [place] [phone] 10/17/2024 10:00 AM EDT Clinical Support [address] [address] Nazia Martins RN documented as of this encounter Visit Diagnoses Diagnosis Forgetfulness Other general symptoms documented in this encounter Care Teams Fish Hatchery Assistant Relationship Specialty Start Date End Date Angela Luz MD [address] [place] [phone] PCP - General Family Medicine 10/27/20 Ninfa Dietrich, PharmD [address] [place] [address] [phone] Pharmacist Internal Medicine 11/10/23 [employer] 12/20/23 documented as of this encounter
--- OUTSIDE RECORDS SUMMARY | 2024-08-29 14:37 | XMS_ITS | Encounter Summary ---
Author Organization [facility] Address [address] [place] [address] Care Team Providers Care Shift Mgr Name Role Phone Angelica Guerra MD Primary Care Provider Unava ilable Angelica Guerra MD Unavailable Unavailable Stacie Easton PA-C Unavailable Mahesh Acevedo NP Unavailable [phone] Formerly [facility], 1928–1983, Pcp Primary Care Provider Unavailabl e Encounter Details Date Type Department Care Team Description 10/10/2018 Head Of Advertising Report Medical Records [address] [place] [address] Yin Rebolledo [address] [place] [address] Social History Tobacco Use Types Packs/Day Years [...] on filedocumented in this encounter Care Teams Shift Mgr Relationship Specialty Start Date End Date Angelica Guerra MD PCP - General Internal Medicine 03/02/17 08/01/21 [facility]ly [facility], 1928–1983, Pcp PCP - General Internal Medicine 08/02/21 Angelica Guerra MD 02/10/17 Stacie Easton PA-C Specialist Cardiology 12/24/20 Mahesh Acevedo NP Specialist Cardiology 12/24/20 documented as of this encounter
--- OUTSIDE RECORDS SUMMARY | 2024-08-29 14:37 | XMS_ITS | Encounter Summary ---
Author Organization [facility] Address [address] [place] [address] Care Team Providers Care Food Prep Worker Name Role Phone Angelica Guerra MD Primary Care Provider Unava ilable Angelica Guerra MD Unavailable Unavailable Stacie Easton PA-C Unavailable Mahesh Acevedo NP Unavailable [phone] [facility], Pcp Primary Care Provider Unavailabl e Encounter Details Date Type Department Care Team Description 03/06/2020 Orders Only General Surgery [address], [place] [id number] Oziel Sanchez MD [address] [place] [address] Left breast mass Social History Tobacco Use Types Packs/Day Years [...] have Coronavirus / COVID-19? No / Unsure 02/24/2020 3:29 PM EDT documented as of this encounter Plan of Treatment Not on file documented as of this encounter Procedures Procedure Name Priority Date/Time Associated Diagnosis Comments DX MAMMO INCL CAD BI Routine 03/06/2020 Left breast mass documented in this encounter Results * DX MAMMO INCL CAD BI (03/06/2020) Oziel Sanchez MD MAMMOGRAPHY documented in this encounter Visit Diagnoses Diagnosis Left breast mass Lump or mass in breast documented in this encounter Care Teams Food Prep Worker Relationship Specialty Start Date End Date Angelica Guerra MD PCP - General Internal Medicine 03/02/17 08/01/21 [facility] PCP - General Internal Medicine 08/02/21 Angelica Guerra MD 02/10/17 Stacie Easton PA-C Specialist Cardiology 12/24/20 Mahesh Acevedo NP Specialist Cardiology 12/24/20 documented as of this encounter
--- OUTSIDE RECORDS SUMMARY | 2024-08-29 14:37 | XMS_ITS | Encounter Summary ---
Author Organization [facility] Address [address] [place] [address] Care Team Providers Care Optometrist/Practice Owner Name Role Phone Angelica Guerra MD Primary Care Provider Unava ilable Angelica Guerra MD Unavailable Unavailable Stacie Easton PA-C Unavailable Mahesh Acevedo NP Unavailable [phone] [facility], Pcp Primary Care Provider Unavailabl e Encounter Details Date Type Department Care Team Description 10/03/2018 [place] [employer] Group Leader Report Medical Records [address] [place] [address] Willy Avilez Social History Tobacco Use Types [...] on filedocumented in this encounter Care Teams Optometrist/Practice Owner Relationship Specialty Start Date End Date Angelica Guerra MD PCP - General Internal Medicine 03/02/17 08/01/21 [facility] Pcp PCP - General Internal Medicine 08/02/21 Angelica Guerra MD 02/10/17 Stacie Easton PA-C Specialist Cardiology 12/24/20 Mahesh Acevedo NP Specialist Cardiology 12/24/20 documented as of this encounter
--- OUTSIDE RECORDS SUMMARY | 2024-08-29 14:37 | XMS_ITS | Encounter Summary ---
Author Organization [facility] Address [address] [place] [address] Care Team Providers Care Correctional Maintenance Technician Name Role Phone Angelica Guerra MD Primary Care Provider Unava ilable Lucia Montes Primary Care Provider Unavailab Angelica Jeong MD Primary Care Provider Unava ilable Angelica Guerra MD Unavailable Unavailable Angelica Guerra MD Unavailable Unavailable Stacie Easton PA-C Unavailable [facility] Unavailable [phone] [facility], Pcp Primary Care Provider Unavailabl e Reason for Visit * Reason Onset Date Comments Faxed Order 06/02/2016 Encounter Details Date Type Department Care Team Description 06/02/2016 Telephone Adult Medicine [address] [address] Angelica Guerra MD Faxed Order Social History Tobacco Use Types Packs/Day Years Used Date Smoking Tobacco: Never Smokeless Tobacco: Never Alcohol Use Standard Drinks/Week Comments No 0 (1 standard drink = 0.6 oz pur e alcohol) Sex Assigned at Date Recorded Not on file documented as of this encounter Miscellaneous Notes * Telephone Encounter - Bobby Gomez - 06/02/2016 1:41 PM EST Please sign orders for quality life, placed in Dr. Guerra incoming documented in this encounter Plan of Treatment Not on file documented as of this encounter Visit Diagnoses Not on filedocumented in this encounter Care Teams Correctional Maintenance Technician Relationship Specialty Start Date End Date Angelica Guerra MD PCP - General 06/25/15 02/09/17 Lucia Montes PCP - General Internal Medicine 02/10/17 03/01/17 Angelica Guerra MD PCP - General Internal Medicine 03/02/17 08/01/21 [facility] PCP - General Internal Medicine 08/02/21 Angelica Guerra MD 06/25/15 02/09/17 Angelica Guerra MD 02/10/17 Stacie Easton PA-C Specialist Cardiology 12/24/20 Mahesh Acevedo NP Specialist Cardiology 12/24/20 documented as of this encounter
--- OUTSIDE RECORDS SUMMARY | 2024-08-29 14:37 | XMS_ITS | Encounter Summary ---
Author Organization [facility] Address [address] [place] [address] Care Team Providers Care Fire Sprinkler Inspector Name Role Phone Angelica Guerra MD Primary Care Provider Unava ilable Angelica Guerra MD Unavailable Unavailable Stacie Easton PA-C Unavailable Mahesh Acevedo NP Unavailable [phone] Pending [facility] To [facility], Pcp Primary Care Provider Unavailabl e Encounter Details Date Type Department Care Team Description 12/14/2018 River Rafting Guide Report Medical Records [address] [place] [address] Yin Rebolledo [address] [place] [address] Social History Tobacco Use Types Packs/Day Years [...] filedocumented in this encounter Care Teams Fire Sprinkler Inspector Relationship Specialty Start Date End Date Angelica Guerra MD PCP - General Internal Medicine 03/02/17 08/01/21 Pending Sale To [facility], Pcp PCP - General Internal Medicine 08/02/21 Angelica Guerra MD 02/10/17 Stacie Easton PA-C Specialist Cardiology 12/24/20 Mahesh Acevedo NP Specialist Cardiology 12/24/20 documented as of this encounter
--- OUTSIDE RECORDS SUMMARY | 2024-08-29 14:37 | XMS_ITS | Encounter Summary ---
Author Organization [facility] Address [address] [place] [address] Care Team Providers Care Assistant Inventory Manager Name Role Phone Angelica Guerra MD Primary Care Provider Unava ilable Angelica Guerra MD Primary Care Provider Unava ilable Lucia Montes Primary Care Provider Unavailab le Angelica Guerra MD Primary Care Provider Unava ilable Angelica Guerra MD Unavailable Unavailable Angelica Guerra MD Unavailable Unavailable Stacie Easton PA-C Unavailable [facility] Unavailable [phone] Formerly [facility], Pcp Primary Care Provider Unavailabl e Encounter Details Date Type Department Care Team Description 09/18/2012 Controlled Substance Contract with [facility] Medical Records [address] [place] [address] Abstract, Provider Social History Tobacco Use Types [...] on filedocumented in this encounter Care Teams Assistant Inventory Manager Relationship Specialty Start Date End Date Angelica Guerra MD PCP - General 02/10/11 06/24/15 Angelica Guerra MD PCP - General 06/25/15 02/09/17 Lucia Montes PCP - General Internal Medicine 02/10/17 03/01/17 Angelica Guerra MD PCP - General Internal Medicine 03/02/17 08/01/21 [facility]ly [facility] PCP - General Internal Medicine 08/02/21 Angelica Guerra MD 06/25/15 02/09/17 Angelica Guerra MD 02/10/17 Stacie Easton PA-C Specialist Cardiology 12/24/20 Mahesh Acevedo NP Specialist Cardiology 12/24/20 documented as of this encounter
--- OUTSIDE RECORDS SUMMARY | 2024-08-29 14:37 | XMS_ITS | Encounter Summary ---
Author Organization [facility] Address [address] [place] [address] Care Team Providers Care Aircraft Engineer Name Role Phone Angelica Guerra MD Primary Care Provider Unava ilable Angelica Guerra MD Unavailable Unavailable Stacie Easton PA-C Unavailable Mahesh Acevedo NP Unavailable [phone] [facility], Pcp Primary Care Provider Unavailabl e Encounter Details Date Type Department Care Team Description 07/23/2018 [facility] Medical Records [address] [place] [address] Abstract, Provider Social History Tobacco Use Types [...] on filedocumented in this encounter Care Teams Aircraft Engineer Relationship Specialty Start Date End Date Angelica Guerra MD PCP - General Internal Medicine 03/02/17 08/01/21 [facility] Pcp PCP - General Internal Medicine 08/02/21 Angelica Guerra MD 02/10/17 Stacie Easton PA-C Specialist Cardiology 8/5/21 Mahesh Acevedo NP Specialist Cardiology 12/24/20 documented as of this encounter
--- OUTSIDE RECORDS SUMMARY | 2024-08-29 14:37 | XMS_ITS | Encounter Summary ---
Author Organization [facility] Address [address] [place] [address] Care Team Providers Care Personal Care Service Provider Name Role Phone Angelica Guerra MD Primary Care Provider Unava ilable Angelica Guerra MD Unavailable Unavailable Stacie Easton PA-C Unavailable Mahesh Acevedo NP Unavailable [phone] [facility], Pcp Primary Care Provider Unavailabl e Encounter Details Date Type Department Care Team Description 12/04/2018 Sales Program Coordinator Report Medical Records [address] [place] [address] Willy Avilez Social History Tobacco Use Types [...] on filedocumented in this encounter Care Teams Personal Care Service Provider Relationship Specialty Start Date End Date Angelica Guerra MD PCP - General Internal Medicine 03/02/17 08/01/21 [facility], Pcp PCP - General Internal Medicine 08/02/21 Angelica Guerra MD 02/10/17 Stacie Easton PA-C Specialist Cardiology 12/24/20 Mahesh Acevedo NP Specialist Cardiology 12/24/20 documented as of this encounter
--- OUTSIDE RECORDS SUMMARY | 2024-08-29 14:37 | XMS_ITS | Encounter Summary ---
Author Organization [employer] Address [address] [facility] 7t [place] [address] Care Team Providers Care Brake Reliner Name Role Phone Angela Luz MD Primary Care Provide r Ninfa Dietrich PharmD Unavailable [phone] Reason for Visit * Reason Comments Med Refill Encounter Details Date Type Department Care Team (Late st Contact Info) Description 07/20/2023 Refill [facility] [address] [place], [place] [phone] Angela Cornell MD [address] [place], [place] [phone] Social History Tobacco Use Types Packs/Day Years [...] Description 09/20/2024 10:00 AM EDT Medication Management [address] [address] Ninfa Dietrich PharmD [address] [place] [address] 10/17/2024 10:00 AM EDT Clinical Support [address] [address] Nazia Martins RN documented as of this [...] on filedocumented in this encounter Care Teams Brake Reliner Relationship Specialty Start Date End Date Angela Luz MD [address] [place] [address] [id number] PCP - General Family Medicine 10/27/20 Ninfa Dietrich, Shadia [address] [place] [id number] Pharmacist Internal Medicine 11/10/23 [employer] 12/20/23 documented as of this encounter
--- OUTSIDE RECORDS SUMMARY | 2024-08-29 14:37 | XMS_ITS | Encounter Summary ---
Author Organization [facility] Address [address] [place] [address] Care Team Providers Care Filemaker Developer Name Role Phone Angelica Guerra MD Primary Care Provider Unava ilable Angelica Guerra MD Primary Care Provider Unava ilable Lucia Montes Primary Care Provider Unavailab le Angelica Guerra MD Primary Care Provider Unava ilable Angelica Guerra MD Unavailable Unavailable Angelica Guerra MD Unavailable Unavailable Stacie Easton PA-C Unavailable [facility] NP Unavailable [phone] [facility], Pcp Primary Care Provider Unavailabl e Encounter Details Date Type Department Care Team Description 04/08/2013 ROVING CAN TENDER/[employer] Report Medical Records [address] [place] [address] Abstract, Provider Social History Tobacco Use Types [...] on filedocumented in this encounter Care Teams Filemaker Developer Relationship Specialty Start Date End Date Angelica Guerra MD PCP - General 9/22/11 2/3/16 Angelica Guerra MD PCP - General 06/25/15 02/09/17 Lucia Montes PCP - General Internal Medicine 02/10/17 03/01/17 Angelica Guerra MD PCP - General Internal Medicine 03/02/17 08/01/21 [facility] PCP - General Internal Medicine 08/02/21 Angelica Guerra MD 06/25/15 02/09/17 Angelica Guerra MD 02/10/17 Stacie Easton PA-C Specialist Cardiology 12/24/20 Mahesh Acevedo NP Specialist Cardiology 12/24/20 documented as of this encounter
--- OUTSIDE RECORDS SUMMARY | 2024-08-29 14:37 | XMS_ITS | Encounter Summary ---
Author Organization [facility] Address [address] [place] [address] Care Team Providers Care Event Marketing Manager Name Role Phone Angelica Guerra MD Primary Care Provider Unava ilable Angelica Guerra MD Unavailable Unavailable Stacie Easton PA-C Unavailable Mahesh Acevedo NP Unavailable [phone] [facility], Pcp Primary Care Provider Unavailabl e Reason for Visit * Reason Onset Date Comments Call From Insurance Co 01/15/2019 [facility] Encounter Details Date Type Department Care Team Description 01/15/2019 Telephone Dermatology - [address] [address] Joyce Mcnair PA-C Call From Insurance Co ([facility]) Social History Tobacco Use Types Packs/Day Years Used Date Smoking Tobacco: Former Smokeless Tobacco: Never Alcohol Use Standard Drinks/Week Comments No 0 (1 standard drink = 0.6 oz pur e alcohol) Sex Assigned at Date Recorded Not on file documented as of this encounter Miscellaneous Notes * Telephone Encounter - Lisa Dominguez M.A. - 01/16/2019 10:03 AM EDT Thank you Angela * Telephone Encounter - Angela Mota M.A. - 01/16/2019 9:34 AM EDT No need to appeal. 2 compression stocking is ok. * Telephone Encounter - Daylin De - 01/15/2019 11:34 AM EDT Insurance called to inform you that the compression stockings were approved for 2 pairs, not 3 as prescribed. An appeal is allowed. documented in this encounter Plan of Treatment Not on file documented as of this encounter Visit Diagnoses Not on filedocumented in this encounter Care Teams Event Marketing Manager Relationship Specialty Start Date End Date Angelica Guerra MD PCP - General Internal Medicine 03/02/17 08/01/21 [facility] PCP - General Internal Medicine 08/02/21 Angelica Guerra MD 02/10/17 Stacie Easton PA-C Specialist Cardiology 12/24/20 Mahesh Acevedo NP Specialist Cardiology 12/24/20 documented as of this encounter
--- OUTSIDE RECORDS SUMMARY | 2024-08-29 14:37 | XMS_ITS | Encounter Summary ---
Author Organization [employer] Address [address] [facility] 7[address] [place] [address] Care Team Providers Care Video Production Intern Name Role Phone Angela Luz MD Primary Care Provide r Ninfa Dietrich PharmD Unavailable [phone] Reason for Visit * Reason Comments Med Refill Encounter Details Date Type Department Care Team (Late st Contact Info) Description 07/03/2023 Refill [facility] [address] [place], [place] [phone] Angela Luz MD [address] [place], [place] [phone] Seasonal allergic rhinitis, unspecified trigger; Type 2 diabetes mellitus with other specified complication, unspecified whether intermediate accountant insulin use ([facility]) Social History Tobacco Use Types Packs/Day [...] Description 09/20/2024 10:00 AM EDT Medication Management [facility] [address] [place] [address] Ninfa Dietrich PharmD [address] [place] [phone] 10/17/2024 10:00 AM EDT Clinical Support [facility] [address] [place] [address] Nazia Martins, DIAMOND documented as of this encounter Visit Diagnoses Diagnosis Seasonal allergic rhinitis, unspecified trigger Type 2 diabetes mellitus with other specified complication, unspecified whether mcc insulin use ([facility]) documented in this encounter Care Teams Video Production Intern Relationship Specialty Start Date End Date Angela Luz MD [address] [place] [id number] PCP - General Family Medicine 10/27/20 Ninfa Dietrich PharmD [address] [place] [address] Pharmacist Internal Medicine 11/10/23 [employer] 12/20/23 documented as of this encounter
--- OUTSIDE RECORDS SUMMARY | 2024-08-29 14:37 | XMS_ITS | Encounter Summary ---
Author Organization [facility] Address [address] [place] [address] Care Team Providers Care Company Laundry Worker Name Role Phone Angelica Guerra MD Primary Care Provider Unava ilable Angelica Guerra MD Unavailable Unavailable Stacie Easton PA-C Unavailable Mahesh Acevedo NP Unavailable [phone] [facility], Pcp Primary Care Provider Unavailabl e Encounter Details Date Type Department Care Team Description 08/23/2018 Commercial Credit Reviewer Report Medical Records [address] [place] [id number] Abstract, Provider Social History Tobacco Use Types [...] on filedocumented in this encounter Care Teams Company Laundry Worker Relationship Specialty Start Date End Date Angelica Guerra MD PCP - General Internal Medicine 03/02/17 08/01/21 [facility], Pcp PCP - General Internal Medicine 08/02/21 Angelica Guerra MD 02/10/17 Stacie Easton PA-C Specialist Cardiology 12/24/20 Mahesh Acevedo NP Specialist Cardiology 12/24/20 documented as of this encounter
--- OUTSIDE RECORDS SUMMARY | 2024-08-29 14:37 | XMS_ITS | Encounter Summary ---
Author Organization [employer] Address [address] [facility] 7t [place] [address] Care Team Providers Care Concrete Precast Moulder Name Role Phone Angela Luz MD Primary Care Provide r Ninfa Dietrich PharmD Unavailable [phone] Reason for Visit * Reason Onset Date Comments Med Refill 06/28/2023 Encounter Details Date Type Department Care Team (Late st Contact Info) Description 06/28/2023 Refill [facility] [address] [place], [place] [phone] Angela Luz MD [address] [place], [place] [phone] Other chronic pain Social History Tobacco Use [...] Description 09/20/2024 10:00 AM EDT Medication Management [address] [address] Ninfa Dietrich PharmD [address] [place] [phone] 10/17/2024 10:00 AM EDT Clinical Support [address] [address] Nazia Martins RN documented as of this encounter Visit Diagnoses Diagnosis Other chronic pain documented in this encounter Care Teams Concrete Precast Moulder Relationship Specialty Start Date End Date Angela Luz MD [address] [place] [address] PCP - General Family Medicine 10/27/20 Ninfa Dietrich, PharmD [address] [place] [address] [phone] Pharmacist Internal Medicine 11/10/23 [employer] 12/20/23 documented as of this encounter
--- OUTSIDE RECORDS SUMMARY | 2024-08-29 14:37 | XMS_ITS | Encounter Summary ---
Author Organization [facility] Address [address] [place] [address] Care Team Providers Care Manufacturing Engineer Chief Name Role Phone Angelica Guerra MD Primary Care Provider Unava ilable Angelica Guerra MD Unavailable Unavailable Stacie Easton PA-C Unavailable Mahesh Acevedo NP Unavailable [phone] [facility], Pcp Primary Care Provider Unavailabl e Encounter Details Date Type Department Care Team Description 01/17/2019 Advisory Software Engineer Report Medical Records [address] [place] [address] Stacie Easton PA-C [address] [place], [place] [phone] Social History Tobacco Use Types Packs/Day Years [...] on filedocumented in this encounter Care Teams Manufacturing Engineer Chief Relationship Specialty Start Date End Date Angelica Guerra MD PCP - General Internal Medicine 03/02/17 08/01/21 [facility], Pcp PCP - General Internal Medicine 08/02/21 Angelica Guerra MD 02/10/17 Stacie Easton PA-C Specialist Cardiology 12/24/20 Mahesh Acevedo NP Specialist Cardiology 12/24/20 documented as of this encounter
--- OUTSIDE RECORDS SUMMARY | 2024-08-29 14:37 | XMS_ITS | Encounter Summary ---
Author Organization [facility] Address [address] [place] [address] Care Team Providers Care Operations Analyst Name Role Phone Angelica Guerra MD Primary Care Provider Unava ilable Lucia Montes Primary Care Provider Unavailab le Angelica Guerra MD Primary Care Provider Unava ilable Angelica Guerra MD Unavailable Unavailable Angelica Guerra MD Unavailable Unavailable Stacie Easton PA-C Unavailable [facility] NP Unavailable [phone] [facility], Pcp Primary Care Provider Unavailabl e Encounter Details Date Type Department Care Team Description 12/29/2015 SCAN Medical Records [address] [place] [phone] Abstract, Provider Painful swallowing Social History Tobacco Use Types Packs/Day Years [...] Date/Time Associated Diagnosis Comments CHG RADIOLOGIC EXAM ESOPHAGU S SINGLE CONTRAST STUDY Routine 12/10/2015 Painful swallowing documented in this encounter Results * BARIUM SWALLOW (12/10/2015) Angelica Guerra MD RADIOLOGY documented in this encounter Visit Diagnoses Diagnosis Painful swallowing Dysphagia, unspecified documented in this encounter Care Teams Operations Analyst Relationship Specialty Start Date End Date Angelica Guerra MD PCP - General 06/25/15 02/09/17 Lucia Montes PCP - General Internal Medicine 02/10/17 03/01/17 Angelica Guerra MD PCP - General Internal Medicine 03/02/17 08/01/21 [facility] [place] PCP - General Internal Medicine 08/02/21 Angelica Guerra MD 06/25/15 02/09/17 Angelica Guerra MD 02/10/17 Stacie Easton PA-C Specialist Cardiology 12/24/20 Mahesh Acevedo NP Specialist Cardiology 12/24/20 documented as of this encounter
--- OUTSIDE RECORDS SUMMARY | 2024-08-29 14:37 | XMS_ITS | Encounter Summary ---
Author Organization [employer] Address [address] [place] [address] Care Team Providers Care Drycleaner Name Role Phone Angela Luz MD Primary Care Provide r Ninfa Dietrich PharmD Unavailable [phone] Reason for Visit * Reason Onset Date Comments Med Refill 05/30/2023 Encounter Details Date Type Department Care Team (Late st Contact Info) Description 05/30/2023 Refill [facility] CHC MED & PEDS [address] [place], [place] [phone] Angela Cornell MD [address] [place], [place] [phone] Diabetic polyneuropathy associated with type 2 diabetes [...] 09/20/2024 10:00 AM EDT Medication Management [address] [address] Ninfa Dietrich PharmD [address] [place] [address] 10/17/2024 10:00 AM EDT Clinical Support [address] [address] Nazia Martins, DIAMOND documented as of this encounter Visit Diagnoses Diagnosis Diabetic polyneuropathy associated with type 2 diabetes mellitus (CMS/HCC) documented in this encounter Care Teams Drycleaner Relationship Specialty Start Date End Date Angela Luz MD [address] [place] [address] PCP - General Family Medicine 10/27/20 Ninfa Dietrich PharmD [address] [place] [address] Pharmacist Internal Medicine 11/10/23 [employer] 12/20/23 documented as of this encounter
--- OUTSIDE RECORDS SUMMARY | 2024-08-29 14:37 | XMS_ITS | Encounter Summary ---
Author Organization [employer] Address [address] 7[address] [place] [address] Care Team Providers Care Java Swing Developer Name Role Phone Angela Luz MD Primary Care Provide r Ninfa Dietrich PharmD Unavailable [phone] Reason for Visit * Reason Onset Date Comments Med Refill 05/30/2023 Encounter Details Date Type Department Care Team (Late st Contact Info) Description 05/30/2023 Refill [facility] [address] [place], [place] [phone] Yunier Mohr MD [address] [place], [place] [phone] Cervical spondylosis with radiculopathy Social History Tobacco [...] 09/20/2024 10:00 AM EDT Medication Management [address] [address] Ninfa Dietrich PharmD [address] [place] [address] 10/17/2024 10:00 AM EDT Clinical Support [address] [address] Nazia Martins, DIAMOND documented as of this encounter Visit Diagnoses Diagnosis Cervical spondylosis with radiculopathy Cervical spondylosis with myelopathy documented in this encounter Care Teams Java Swing Developer Relationship Specialty Start Date End Date Angela Luz MD [address] [place] [address] PCP - General Family Medicine 10/27/20 Ninfa Dietrich PharmD [address] [place] [address] Pharmacist Internal Medicine 11/10/23 [employer] 12/20/23 documented as of this encounter
--- OUTSIDE RECORDS SUMMARY | 2024-08-29 14:37 | XMS_ITS | Encounter Summary ---
Author Organization [employer] [facility] Address [address] [place] [address] Care Team Providers Care Technical Support Specialist Name Role Phone Angelica Guerra MD Primary Care Provider Unava ilable Angelica Guerra MD Unavailable Unavailable Stacie Easton PA-C Unavailable Mahesh Acevedo NP Unavailable [phone] [facility], Pcp Primary Care Provider Unavailabl e Encounter Details Date Type Department Care Team Description 09/07/2018 Pipelines Laborer Report Medical Records [address] [place] [address] Willy Avilez Social History Tobacco Use Types [...] on filedocumented in this encounter Care Teams Technical Support Specialist Relationship Specialty Start Date End Date Angelica Guerra MD PCP - General Internal Medicine 03/02/17 08/01/21 [facility], Pcp PCP - General Internal Medicine 08/02/21 Angelica Guerra MD 02/10/17 Stacie Easton PA-C Specialist Cardiology 12/24/20 Mahesh Acevedo NP Specialist Cardiology 12/24/20 documented as of this encounter
--- OUTSIDE RECORDS SUMMARY | 2024-08-29 14:37 | XMS_ITS | Encounter Summary ---
Author Organization [facility] Address [address] [place] [address] Care Team Providers Care Tire Classifier Name Role Phone Angelica Guerra MD Primary Care Provider Unava ilable Lucia Montes Primary Care Provider Unavailab le Angelica Guerra MD Primary Care Provider Unava ilable Angelica Guerra MD Unavailable Unavailable Angelica Guerra MD Unavailable Unavailable Stacie Easton PA-C Unavailable [facility] NP Unavailable [phone] [facility], Pcp Primary Care Provider [facility] Encounter Details Date Type Department Care Team Description 03/30/2016 [facility] Medical Records [address] [place] [address] Abstract, Provider Social History Tobacco Use Types [...] on filedocumented in this encounter Care Teams Tire Classifier Relationship Specialty Start Date End Date Angelica Guerra MD PCP - General 06/25/15 02/09/17 Lucia oMntes PCP - General Internal Medicine 02/10/17 03/01/17 Angelica Guerra MD PCP - General Internal Medicine 03/02/17 08/01/21 [facility], Pcp PCP - General Internal Medicine 08/02/21 Angelica Guerra MD 06/25/15 02/09/17 Angelica Guerra MD 02/10/17 Stacie Easton PA-C Specialist Cardiology 12/24/20 Mahesh Acevedo NP Specialist Cardiology 12/24/20 documented as of this encounter
--- OUTSIDE RECORDS SUMMARY | 2024-08-29 14:38 | XMS_ITS | Data Portability ---
Author Organization [employer] [place] [employer] Address [address] [place] [address] Care Team Providers Care Systems Integration Manager Name Role Phone [facility] Referring Provider [phone] Assessment Encounter Date Assessment Date Assessment LastModified [...] Go To The Location Of Their Choice, [address] 11:32:54 Referral None recorded. Procedures None recorded. Surgeries None recorded. Imaging None recorded. Medication Orders torsemide 40 mg tablet 2021 [facility], [address] [place] [address], [id number], 14:01:21 valacyclovi r 1 gram tablet 2021 [facility], [address] [place] [address], [id number], 15:01:13 Patient TargetsNo targets recorded. Patient InstructionsNo instructions recorded. Reason for Referral None Reported. Medical Equipment None Reported. Allergies Allergen ID Allergen Name Allergen Category Reaction Reaction Severity Criticality Documentation Date Start Date Code Code System Note Provider Name and Address Organization Details Recorded Time 8628 latex environme nt,medica tion Not available Not available Not available 03/19/2024 53151 91 RxNorm Not Available [employer] - production [...] % 65 /min 65 /min 12 /min 07121.7 2 g 98.4 [degF] 98 % 98 % 146 mm[Hg] 52 mm[Hg] 146 mm[Hg] 52 mm[Hg] Not Available [facility] - production 11:35:05 Date Recorded Respiratory rate Heart rate Oxygen saturation Oxygen saturation in Arterial blood by Pulse oximetry Body temperature Systolic blood pressure Diastolic blood pressure Provider Name and Address Organization Details Last Updated DateTime 2 18 /min 62 /min 97 % 97 % 98.1 [degF] 135 mm[Hg] 86 mm[Hg] Not Available [facility] - production 13:40:32 Social History None recorded. [...] 366 Pete Cunha MD Main - [facility] [address] [place] [phone] 07/27/2021 13:19:49 01/21/2022 11:58:08 Fatigue 72087709 R53.83 5473 Kanchan Meza MD Main - [facility] [address] [place] [phone] 04/11/2022 11:34:58 04/13/2022 12:51:20 Herpes zoster 3526686 B02.9 5556 Remi Ríos MD Main - [address] [phone] 04/13/2022 13:40:15 04/15/2022 10:51:28 Chronic systolic heart failure 308188113 I50.22 This 66-year-ol d female with a history of type 2 diabetes and [facility] and exertional dyspnea without chest pain. Her EKG was unremarkab le. I ordered Lasix 40 mg IV and I called in a refill for her Demadex 40 mg bid. She will follow-up with her PCP. She will call 911 if her condition worsens. The patient agreed with this plan. Hyperglyce renato due to type 2 diabetes mellitus [id number] 19143 E11.65 This 66-year-ol d female with poorly [...] Jin Member ID Guarantor Name 07/27/[address] [facility] - DOS PRIOR TO 2022 - DUAL ELIGIBLE (MEDICARE REPLACEMENT/ADV ANTAGE - HMO) Angela Dominguez Josh [id number] Angela Dominguez Josh 04/11/[address] [facility] - DOS PRIOR TO 2022 - DUAL ELIGIBLE (MEDICARE REPLACEMENT/ADV ANTAGE - HMO) Angela Dominguez Moreno [id number] Angela Dominguez Moreno 04/13/[address] [facility] - DOS PRIOR TO 2022 - DUAL ELIGIBLE (MEDICARE REPLACEMENT/ADV ANTAGE - HMO) Angela Dominguez Moreno [id number] Angela Paza Notes Date Note Type Note [...] increased LE swelling. Pete Cunha MD [address] [facility],[address], [place], [address], [employer] 07/27/2021 15:37:23 04/11/2022 text/html HPI: 66 y/o [...] ................... ................... ................... ................... ................... ................... ........ Tentmaker Note: Dispatched to the home of 66-year-old [...] ................... ........ Disposition: Fulfilled Kanchan Meza MD [address] [place] [address],[address] [facility], [place], [address], [employer] 04/13/2022 09:19:05 04/13/2022 text/html HPI: This RN who has not seen member with hx. of CHF since 12/22/21 received call from member's daughter Nora, who reports member has had a 5lb. weight gain in the past 2 days with some increased SOB. Daughter did call petroleum inspector who is not in the office. ................... ................... ................... ................... ................... ................... ................... ........ CRC Nursing Assessment: Comments: CRC RN DID NOT NEED FURTHER INFO Remi Ríos MD [address] [place] [address],[address], [place], [address], [place] [facility] [employer] 04/13/2022 13:53:09 OBGyn Episode No OBEpisode recorded.
--- OUTSIDE RECORDS SUMMARY | 2024-08-29 14:38 | XMS_ITS | Encounter Summary ---
Author Organization [employer] [facility] Address [address] [place] [address] Care Team Providers Care Scalper Operator Name Role Phone Angelica Guerra MD Primary Care Provider Unava ilable Angelica Guerra MD Unavailable Unavailable Stacie Easton PA-C Unavailable Mahesh Acevedo NP Unavailable [phone] [facility], Pcp Primary Care Provider Unavailabl e Encounter Details Date Type Department Care Team Description 08/11/2020 [facility] Medical Records [address] [place] [address] Abstract, Provider Social History Tobacco Use Types [...] have Coronavirus / COVID-19? No / Unsure 08/12/2020 8:48 AM EDT documented as of this encounter Plan of Treatment Not on file documented as of this encounter Visit Diagnoses Not on filedocumented in this encounter Care Teams Scalper Operator Relationship Specialty Start Date End Date Angelica Guerra MD PCP - General Internal Medicine 03/02/17 08/01/21 [facility], Pcp PCP - General Internal Medicine 08/02/21 Angelica Guerra MD 02/10/17 Stacie Easton PA-C Specialist Cardiology 12/24/20 Mahesh Acevedo NP Specialist Cardiology 12/24/20 documented as of this encounter
--- OUTSIDE RECORDS SUMMARY | 2024-08-29 14:38 | XMS_ITS | Encounter Summary ---
Author Organization [facility] Address [address] [place] [address] Care Team Providers Care Tester Wafer Substrate Name Role Phone Angelica Guerra MD Primary Care Provider Unava ilable Angelica Guerra MD Primary Care Provider Unava ilable Lucia Montes Primary Care Provider Unavailab le Angelica Guerra MD Primary Care Provider Unava ilable Angelica Guerra MD Unavailable Unavailable Angelica Guerra MD Unavailable Unavailable Stacie Easton PA-C Unavailable [facility] NP Unavailable [phone] [facility], Pcp Primary Care Provider Unavailabl e Encounter Details Date Type Department Care Team Description 05/31/2012 Hospital Medical Records [address] [place] [address] Maya Maldonado MD Social History Tobacco Use Types Packs/Day [...] on filedocumented in this encounter Care Teams Tester Wafer Substrate Relationship Specialty Start Date End Date Angelica Guerra MD PCP - General 02/10/11 06/24/15 Angelica Guerra MD PCP - General 06/25/15 02/09/17 Lucia Montes PCP - General Internal Medicine 02/10/17 03/01/17 Angelica Guerra MD PCP - General Internal Medicine 03/02/17 08/01/21 [facility], [facility] PCP - General Internal Medicine 08/02/21 Angelica Guerra MD 06/25/15 02/09/17 Angelica Guerra MD 02/10/17 Stacie Easton PA-C Specialist Cardiology 12/24/20 Mahesh Acevedo NP Specialist Cardiology 12/24/20 documented as of this encounter
--- OUTSIDE RECORDS SUMMARY | 2024-08-29 14:38 | XMS_ITS | Encounter Summary ---
Author Organization [employer] Address [address] [place] [address] Care Team Providers Care Firefighter Marine Name Role Phone Angela Luz MD Primary Care Provide r Ninfa Dietrich PharmD Unavailable Reason for Visit * Reason Comments Med Refill Encounter Details Date Type Department Care Team (Late st Contact Info) Description 02/15/2024 Refill [facility] CHC MED & PEDS [address] [place], [place] [phone] Angela Luz MD [address] [place], [place] [phone] Seasonal allergic rhinitis, unspecified trigger Social History [...] 09/20/2024 10:00 AM EDT Medication Management [address] [address] Ninfa Dietrich PharmD [address] [place] [address] 10/17/2024 10:00 AM EDT Clinical Support [address] [address] Nazia Martins RN documented as of this [...] trigger documented in this encounter Care Teams Firefighter Marine Relationship Specialty Start Date End Date Angela Luz MD [address] [place] [address] PCP - General Family Medicine 10/27/20 Ninfa Dietrich PharmD [address] [place] [address] Pharmacist Internal Medicine 11/10/23 [employer] 12/20/23 documented as of this encounter
--- OUTSIDE RECORDS SUMMARY | 2024-08-29 14:38 | XMS_ITS | Encounter Summary ---
Author Organization [facility] Address [address] [place] [address] Care Team Providers Care Customer Support Agent Name Role Phone Angelica Guerra MD Primary Care Provider Unava ilable Angelica Guerra MD Primary Care Provider Unava ilable Lucia Montes Primary Care Provider Unavailab le Angelica Guerra MD Primary Care Provider Unava ilable Angelica Guerra MD Unavailable Unavailable Angelica Guerra MD Unavailable Unavailable Stacie Easton PA-C Unavailable [facility] NP Unavailable [phone] [facility], Pcp Primary Care Provider Unavailabl e Encounter Details Date Type Department Care Team Description 02/23/2012 Field Project Manager Report Medical Records [address] [place] [address] Triston Garay Social History Tobacco Use Types Packs/Day Years [...] filedocumented in this encounter Care Teams Customer Support Agent Relationship Specialty Start Date End Date Angelica Guerra MD PCP - General 02/10/11 06/24/15 Angelica Guerra MD PCP - General 06/25/15 02/09/17 Lucia Montes PCP - General Internal Medicine 02/10/17 03/01/17 Angelica Guerra MD PCP - General Internal Medicine 03/02/17 08/01/21 [facility], [facility] PCP - General Internal Medicine 08/02/21 Angelica Guerra MD 06/25/15 02/09/17 Angelica Guerra MD 02/10/17 Stacie Easton PA-C Specialist Cardiology 12/24/20 Mahesh Acevedo NP Specialist Cardiology 12/24/20 documented as of this encounter
--- OUTSIDE RECORDS SUMMARY | 2024-08-29 14:38 | XMS_ITS | Encounter Summary ---
Author Organization [employer] Address [address] [facility] 7t [place] [address] Care Team Providers Care Packaging Clerk Name Role Phone Angela Luz MD Primary Care Provide r Ninfa Dietrich PharmD Unavailable [phone] Reason for Visit * Reason Onset Date Comments Med Refill 12/04/2023 Encounter Details Date Type Department Care Team (Late st Contact Info) Description 12/04/2023 Refill [facility] MEDICINE [address] [place], [place] [phone] Angela Luz MD [address] [place], [place] [phone] Other chronic pain Social History Tobacco Use [...] Description 09/20/2024 10:00 AM EDT Medication Management [address] [address] Ninfa Dietrich PharmD [address] [place] [address] 10/17/2024 10:00 AM EDT Clinical Support [address] [address] Nazia Martins RN documented as of this [...] pain documented in this encounter Care Teams Packaging Clerk Relationship Specialty Start Date End Date Angela Luz MD [address] [place] [address] PCP - General Family Medicine 10/27/20 Ninfa Dietrich PharmD [address] [place] [address] Pharmacist Internal Medicine 11/10/23 [employer] 12/20/23 documented as of this encounter
--- OUTSIDE RECORDS SUMMARY | 2024-08-29 14:38 | XMS_ITS | Encounter Summary ---
Author Organization [facility] Address [address] [place] [address] Care Team Providers Care Statement Clerks Supervisor Name Role Phone Angelica Guerra MD Primary Care Provider Unava ilable Angelica Guerra MD Primary Care Provider Unava ilable Lucia Montes Primary Care Provider Unavailab le Angelica Guerra MD Primary Care Provider Unava ilable Angelica Guerra MD Unavailable Unavailable Angelica Guerra MD Unavailable Unavailable Stacie Easton PA-C Unavailable Mahesh Acevedo NP Unavailable [phone] [facility], Pcp Primary Care Provider Unavailabl e Encounter Details Date Type Department Care Team Description 12/19/2011 Immigration Officer Report Medical Records [address] [place] [address] Anival Tuttle Social History Tobacco Use Types [...] on filedocumented in this encounter Care Teams Statement Clerks Supervisor Relationship Specialty Start Date End Date Angelica Guerra MD PCP - General 02/10/11 06/24/15 Angelica Guerra MD PCP - General 06/25/15 02/09/17 Lucia Montes PCP - General Internal Medicine 02/10/17 03/01/17 Angelica Guerra MD PCP - General Internal Medicine 03/02/17 08/01/21 [facility], [facility] PCP - General Internal Medicine 08/02/21 Angelica Guerra MD 06/25/15 02/09/17 Angelica Guerra MD 02/10/17 Stacie Easton PA-C Specialist Cardiology 12/24/20 Mahesh Acevedo NP Specialist Cardiology 12/24/20 documented as of this encounter
--- OUTSIDE RECORDS SUMMARY | 2024-08-29 14:38 | XMS_ITS | Encounter Summary ---
Author Organization [employer] [facility] Address [address] [place] [address] Care Team Providers Care Business Agent Name Role Phone Angelica Guerra MD Primary Care Provider Unava ilable Angelica Guerra MD Unavailable Unavailable Stacie Easton PA-C Unavailable Mahesh Acevedo NP Unavailable [phone] [facility], Pcp Primary Care Provider Unavailabl e Encounter Details Date Type Department Care Team Description 03/21/2018 Security Operations Center Analyst Report Medical Records [address] [place] [address] Willy Avilez Social History Tobacco Use Types [...] on filedocumented in this encounter Care Teams Business Agent Relationship Specialty Start Date End Date Angelica Guerra MD PCP - General Internal Medicine 03/02/17 08/01/21 [facility], Pcp PCP - General Internal Medicine 08/02/21 Angelica Guerra MD 02/10/17 Stacie Easton PA-C Specialist Cardiology 12/24/20 Mahesh Acevedo NP Specialist Cardiology 12/24/20 documented as of this encounter
--- OUTSIDE RECORDS SUMMARY | 2024-08-29 14:38 | XMS_ITS | Encounter Summary ---
Author Organization [facility] Address [address] [place] [address] Care Team Providers Care Electronic Sales And Service Technician Name Role Phone Angelica Guerra MD Primary Care Provider Unava ilable Angelica Guerra MD Primary Care Provider Unava ilable Lucia Montes Primary Care Provider Unavailab le Angelica Guerra MD Primary Care Provider Unava ilable Angelica Guerra MD Unavailable Unavailable Angelica Guerra MD Unavailable Unavailable Stacie Easton PA-C Unavailable Mahesh Acevedo NP Unavailable [phone] [facility], Pcp Primary Care Provider Unavailabl e Encounter Details Date Type Department Care Team Description 01/12/2012 Clothing Supervisor Report Medical Records [address] [place] [address] Triston Garay Social History Tobacco Use Types [...] filedocumented in this encounter Care Teams Electronic Sales And Service Technician Relationship Specialty Start Date End Date Angelica Guerra MD PCP - General 02/10/11 06/24/15 Angelica Guerra MD PCP - General 06/25/15 02/09/17 Lucia Montes PCP - General Internal Medicine 02/10/17 03/01/17 Angelica Guerra MD PCP - General Internal Medicine 03/02/17 08/01/21 [facility], [facility] PCP - General Internal Medicine 08/02/21 Angelica Guerra MD 06/25/15 02/09/17 Angelica Guerra MD 02/10/17 Stacie Easton PA-C Specialist Cardiology 12/24/20 Mahesh Acevedo NP Specialist Cardiology 12/24/20 documented as of this encounter
--- OUTSIDE RECORDS SUMMARY | 2024-08-29 14:38 | XMS_ITS | Encounter Summary ---
Author Organization [facility] Address [address] [place] [address] Care Team Providers Care Alcoholism Worker Name Role Phone Angelica Guerra MD Primary Care Provider Unava ilable Angelica Guerra MD Unavailable Unavailable Stacie Easton PA-C Unavailable Mahesh Acevedo NP Unavailable [phone] [facility], Pcp Primary Care Provider Unavailabl e Encounter Details Date Type Department Care Team Description 11/26/2020 Structural Analyst Report Medical Records [address] [place] [address] Raudel Castaneda MD Social History Tobacco Use Types Packs/Day [...] on filedocumented in this encounter Care Teams Alcoholism Worker Relationship Specialty Start Date End Date Angelica Guerra MD PCP - General Internal Medicine 03/02/17 08/01/21 [facility], Pcp PCP - General Internal Medicine 08/02/21 Angelica Guerra MD 02/10/17 Stacie Easton PA-C Specialist Cardiology 12/24/20 Mahesh Acevedo NP Specialist Cardiology 12/24/20 documented as of this encounter
--- OUTSIDE RECORDS SUMMARY | 2024-08-29 14:38 | XMS_ITS | Encounter Summary ---
Author Organization [facility] Address [address] [place] [address] Care Team Providers Care Sr Technical Sales Consultant Name Role Phone Angelica Guerra MD Primary Care Provider Unava ilable Angelica Guerra MD Unavailable Unavailable Stacie Easton PA-C Unavailable Mahesh Acevedo NP Unavailable [phone] [facility], Pcp Primary Care Provider Unavailabl e Encounter Details Date Type Department Care Team Description 07/11/2018 Oak Tanner Report Medical Records [address] [place] [address] Zeina Renee [address] [place] [address] Social History Tobacco Use Types Packs/Day Years [...] on filedocumented in this encounter Care Teams Sr Technical Sales Consultant Relationship Specialty Start Date End Date Angelica Guerra MD PCP - General Internal Medicine 03/02/17 08/01/21 [facility], Pcp PCP - General Internal Medicine 08/02/21 Angelica Guerra MD 02/10/17 Stacie Easton PA-C Specialist Cardiology 12/24/20 Mahesh Acevedo NP Specialist Cardiology 12/24/20 documented as of this encounter
--- OUTSIDE RECORDS SUMMARY | 2024-08-29 14:38 | XMS_ITS | Encounter Summary ---
Author Organization [employer] Address [address] [facility] [address] 7t [place] [address] Care Team Providers Care Expediter Clerk Name Role Phone Angela Luz MD Primary Care Provide r Ninfa Dietrich PharmD Unavailable [phone] Reason for Visit * Reason Comments Med Refill Encounter Details Date Type Department Care Team (Late st Contact Info) Description 08/29/2024 Refill [facility] [address] [place], [place] [phone] Ninfa Dietrich, PharmD [address] [place], [place] [phone] Type 2 diabetes mellitus with hyperglycemia, with long-term current use of insulin ([facility]) Social History Tobacco Use Types Packs/Day [...] Description 09/20/2024 10:00 AM EDT Medication Management [address] [address] Ninfa Dietrich PharmD [address] [place] [address] 10/17/2024 10:00 AM EDT Clinical Support [address] [address] Nazia Martins RN documented as of this [...] hyperglycemia, with long-term current use of insulin ([facility]) documented in this encounter Care Teams Expediter Clerk Relationship Specialty Start Date End Date Angela Luz MD [address] [place], [place] [phone] PCP - General Family Medicine 10/27/20 Ninfa Dietrich, PharmD [address] [place], [place] [phone] Pharmacist Internal Medicine 11/10/23 [employer] 12/20/23 documented as of this encounter
--- OUTSIDE RECORDS SUMMARY | 2024-08-29 14:38 | XMS_ITS | Encounter Summary ---
Author Organization [employer] Address [address] [facility] 7t [place] [address] Care Team Providers Care Production Estimator Name Role Phone Angela Luz MD Primary Care Provide r Ninfa Dietrich PharmD Unavailable [phone] Reason for Visit * Reason Onset Date Comments Med Refill 05/30/2023 Encounter Details Date Type Department Care Team (Late st Contact Info) Description 05/30/2023 Refill [facility] 230 [place], [place] [phone] Angela Luz MD 230 [place], [place] [phone] Type 2 diabetes mellitus with other specified complication, unspecified whether half-way insulin use (CMS/HCC); Type 2 diabetes mellitus [...] Description 09/20/2024 10:00 AM EDT Medication Management [address] [address] Ninfa Dietrich PharmD [address] [place] [address] 10/17/2024 10:00 AM EDT Clinical Support [address] [address] Nazia Martins RN documented as of this encounter Visit Diagnoses Diagnosis Type 2 diabetes mellitus with other specified complication, unspecified whether half-way insulin use (CMS/[facility]) Type 2 diabetes mellitus with stage 3 chronic kidney disease, with long-term current use of insulin, unspecified whether stage 3a or 3b CKD (CMS/[facility]) Other chronic pain documented in this encounter Care Teams Production Estimator Relationship Specialty Start Date End Date Angela Luz MD [address] [place] [address] PCP - General Family Medicine 10/27/20 Ninfa Dietrich, PharmD [address] [place] [address] Pharmacist Internal Medicine 11/10/23 [employer] 12/20/23 documented as of this encounter
--- OUTSIDE RECORDS SUMMARY | 2024-08-29 14:38 | XMS_ITS | Encounter Summary ---
Author Organization [facility] Address [address] [place] [address] Care Team Providers Care Packing Room Inspector Name Role Phone Angelica Guerra MD Primary Care Provider Unava ilable Angelica Guerra MD Unavailable Unavailable Stacie Easton PA-C Unavailable Mahesh Acevedo NP Unavailable [facility], Pcp Primary Care Provider Unavailabl e Reason for Visit * Reason Onset Date Comments Medication 08/26/2020 Encounter Details Date Type Department Care Team Description 08/26/2020 Telephone Adult [address] [address] Angelica Guerra MD Medication Social History Tobacco Use Types Packs/Day Years [...] encounter Miscellaneous Notes * Telephone Encounter - Demetri Contreras M.A. - 08/28/2020 10:04 AM EDT This was reordered on 08/27/20 * Telephone Encounter - Nery Shelton C.M.A - 08/27/2020 10:15 AM EDT Lab Results Component Value Date NA 140 07/08/2020 K 4.2 07/08/2020 CO2 24 07/08/2020 CL 105 07/08/2020 BUN 33 07/08/2020 CREAT 1.61 07/08/2020 GLU 116 07/08/2020 CA 9.7 07/08/2020 GFR 32 07/08/2020 * Telephone Encounter - Pete Puga - 08/26/2020 2:44 PM EDT Placed original faxed copy of the script in Dr. Angelica Guerra's bin to review if more information is needed. Patient would like script to be: E-PRESCRIBED/FAXED TO PHARMACY When was the patients last office visit in Adult Medicine?: 08/12/20 When was the last time the patient saw their PCP? 03/24/20 Does patient have an upcoming appointment? Yes 09/21/20 (THE MEDICATION IS NOT ON THE MED LIST AND IS IDENTIFIED BELOW): {MED LIST:68729) Med name: Easy Touch Pen Needle 31 GX3/16 Dosage: # of tablets: 400.00 Local pharmacy with request for 90 -day supply Instructions: USE FOUR TIMES DAILY Did you check the pharmacy information above?: YES Patients current insurance carrier: Payor: [facility] M[facility] / Plan: O $0 [facility] [id number] / Product Type: HMO [id number] documented in this encounter Plan of Treatment Not on file documented as of this encounter Visit Diagnoses Not on filedocumented in this encounter Care Teams Packing Room Inspector Relationship Specialty Start Date End Date Angelica Guerra MD PCP - General Internal Medicine 03/02/17 08/01/21 [facility] Pcp PCP - General Internal Medicine 08/02/21 Angelica Guerra MD 02/10/17 Stacie Easton PA-C Specialist Cardiology 12/24/20 Mahesh Acevedo NP Specialist Cardiology 12/24/20 documented as of this encounter
--- OUTSIDE RECORDS SUMMARY | 2024-08-29 14:38 | XMS_ITS | Encounter Summary ---
Author Organization [facility] Address [address] [place] [address] Care Team Providers Care Physics Instructor Name Role Phone Angelica Guerra MD Primary Care Provider Unava ilable Angelica Guerra MD Unavailable Unavailable Stacie Easton PA-C Unavailable Mahesh Acevedo NP Unavailable [phone] [facility], Pcp Primary Care Provider Unavailabl e Reason for Visit * Reason Onset Date Comments Prior Authorization 03/31/2020 Encounter Details Date Type Department Care Team Description 03/31/2020 Telephone Adult [address] [address] Angelica Guerra MD Prior Authorization Social History Tobacco Use Types Packs/Day Years [...] have Coronavirus / COVID-19? No / Unsure 03/24/2020 2:29 PM EST documented as of this encounter Miscellaneous Notes * Telephone Encounter - Stacie Chamorro M.A. - 04/03/2020 9:48 AM EST Prior authorization for the budesonide was approved Approved from 04/02/2020 until 04/02/2021 Approval faxed to [facility] at [phone] * Telephone Encounter - Stacie Chamorro M.A. - 04/02/2020 12:19 PM EST Elly from [facility] called looking for more information. Pt has tried breo and airduo. * Telephone Encounter - Nalini Mustafa M.A. - 04/01/2020 11:29 AM EST Prior auth done by form to [facility] for symbicort Dx moderate persistent asthma J45.40 Continuation of therapy Tried singulair in past * Telephone Encounter - Stacie Vitale - 03/31/2020 2:35 PM EST Prior Authorization for Medication-do not complete and send this encounter unless you have the fax from the pharmacy. Is this a Cover My Meds request: Yes -- Aguirre Code [id number] Name of Medication Symbicort Dose of Medication n/a What is the RX # from the faxed refill? N/a How does patient take this med? N/a What Pharmacy did the fax come from: [facility] fax #: [phone] [employer] Information from fax: What Prescription Plan does the patient have? N/a BIN/PCN if applicable: n/a Cardholder ID:n/a Person Code: n/a Relationship Code: n/a Help desk phone: n/a documented in this encounter Plan of Treatment Not on file documented as of this encounter Visit Diagnoses Not on filedocumented in this encounter Care Teams Physics Instructor Relationship Specialty Start Date End Date Angelica Guerra MD PCP - General Internal Medicine 03/02/17 08/01/21 [facility], [facility] PCP - General Internal Medicine 08/02/21 Angelica Guerra MD 02/10/17 Stacie Easton PA-C Specialist Cardiology 12/24/20 Mahesh Acevedo NP Specialist Cardiology 12/24/20 documented as of this encounter
--- OUTSIDE RECORDS SUMMARY | 2024-08-29 14:38 | XMS_ITS | Encounter Summary ---
Author Organization [employer] Address [address] [facility] 7t [place] [address] Care Team Providers Care Pipe Welder Name Role Phone Angela Luz MD Primary Care Provide r Ninfa Dietrich PharmD Unavailable [phone] Reason for Visit * Reason Comments Med Refill Encounter Details Date Type Department Care Team (Late st Contact Info) Description 09/06/2023 Refill [facility] 230 [place], [place] [phone] Angela Luz MD 230 [place], [place] [phone] Type 2 diabetes mellitus with other specified complication, unspecified whether meterman insulin use ([facility]) Social History Tobacco Use Types [...] Description 09/20/2024 10:00 AM EDT Medication Management [address] [address] Ninfa Dietrich PharmD [address] [place] [address] 10/17/2024 10:00 AM EDT Clinical Support [address] [address] Nazia Martins, DIAMOND documented as of this [...] mellitus with other specified complication, unspecified whether meterman insulin use (CMS/HCC) documented in this encounter Care Teams Pipe Welder Relationship Specialty Start Date End Date Angela Luz MD [address] [place] [address] PCP - General Family Medicine 10/27/20 Ninfa Dietrich PharmD [address] [place] [address] Pharmacist Internal Medicine 11/10/23 [email or web address] 12/20/23 documented as of this encounter
--- OUTSIDE RECORDS SUMMARY | 2024-08-29 14:38 | XMS_ITS | Encounter Summary ---
Author Organization [employer] [facility] Address [address] [place] [address] Care Team Providers Care Setter Machine Name Role Phone Angelica Guerra MD Primary Care Provider Unava ilable Angelica Guerra MD Unavailable Unavailable Stacie Easton PA-C Unavailable Mahesh Acevedo NP Unavailable [phone] [facility], Pcp Primary Care Provider Unavailabl e Encounter Details Date Type Department Care Team Description 08/20/2020 Supervisor Partial Denture Department Report Medical Records [address] [place] [address] Raciel Rebolledo MD Social History Tobacco Use Types Packs/Day [...] on filedocumented in this encounter Care Teams Setter Machine Relationship Specialty Start Date End Date Angelica Guerra MD PCP - General Internal Medicine 03/02/17 08/01/21 [facility], Pcp PCP - General Internal Medicine 08/02/21 Angelica Guerra MD 02/10/17 Stacie Easton PA-C Specialist Cardiology 12/24/20 Mahesh Acevedo NP Specialist Cardiology 12/24/20 documented as of this encounter
--- OUTSIDE RECORDS SUMMARY | 2024-08-29 14:38 | XMS_ITS | Encounter Summary ---
Author Organization [employer] Address [address] [facility] 7t [place] [address] Care Team Providers Care Press Supervisor Name Role Phone Angela Luz MD Primary Care Provide r Ninfa Dietrich PharmD Unavailable [phone] Reason for Visit * Reason Comments Med Refill Encounter Details Date Type Department Care Team (Late st Contact Info) Description 08/22/2024 Refill [facility] [address] [place], [place] [phone] Angela Luz MD [address] [place], [place] [phone] Diabetic polyneuropathy associated with type 2 diabetes mellitus ([facility]/HCC) Social History Tobacco Use Types Packs/Day [...] Description 09/20/2024 10:00 AM EDT Medication Management [address] [address] Ninfa Dietrich, LauraD [address] [place] [address] 10/17/2024 10:00 AM EDT Clinical Support [address] [address] Nazia Martins RN documented as of this [...] (CMS/HCC) documented in this encounter Care Teams Press Supervisor Relationship Specialty Start Date End Date Angela Luz MD [address] [place] [address] PCP - General Family Medicine 10/27/20 Ninfa Dietrich, Shadia [address] [place] [address] Pharmacist Internal Medicine 11/10/23 [email or web address] 12/20/23 documented as of this encounter
--- OUTSIDE RECORDS SUMMARY | 2024-08-29 14:38 | XMS_ITS | Encounter Summary ---
Author Organization [employer] Address [address] [facility] [address] 7t [place] [address] Care Team Providers Care Manufacturing Plant Manager Name Role Phone Angela Luz MD Primary Care Provide r Ninfa Dietrich PharmD Unavailable Reason for Visit * Reason Comments Med Refill Encounter Details Date Type Department Care Team (Late st Contact Info) Description 09/27/2023 Refill [facility] & PEDS [address] [place], [place] [phone] Angela Luz MD [address] [place], [place] [phone] Seasonal allergic rhinitis, unspecified trigger; Other chronic [...] Description 09/20/2024 10:00 AM EDT Medication Management [address] [address] Ninfa Dietrich PharmD [address] [place] [address] 10/17/2024 10:00 AM EDT Clinical Support [address] [address] Nazia Martins RN documented as of this [...] pain documented in this encounter Care Teams Manufacturing Plant Manager Relationship Specialty Start Date End Date Angela Luz MD [address] [place] [address] PCP - General Family Medicine 10/27/20 Ninfa Dietrich PharmD [address] [place] [address] Pharmacist Internal Medicine 11/10/23 [employer] 12/20/23 documented as of this encounter
--- OUTSIDE RECORDS SUMMARY | 2024-08-29 14:38 | XMS_ITS | Encounter Summary ---
Author Organization [employer] [facility] Address [address] [place] [address] Care Team Providers Care Packing Room Inspector Name Role Phone Angelica Guerra MD Primary Care Provider Unava ilable Angelica Guerra MD Unavailable Unavailable Stacie Easton PA-C Unavailable Mahesh Acevedo NP Unavailable [phone] [facility], Pcp Primary Care Provider Unavailabl e Encounter Details Date Type Department Care Team Description 03/09/2021 Orders Only Medical Records [address] [place] [address] Oziel Sanchez MD [address] [place] [address] [phone] Social History Tobacco Use Types Packs/Day Years [...] Name Priority Date/Time Associated Diagnosis Comments OUTSIDE MAMMO Routine 03/08/2021 documented in this encounter Results * OUTSIDE MAMMO (03/08/2021) Oziel Sanchez MD RADIOLOGY documented in this encounter Visit Diagnoses Not on filedocumented in this encounter Care Teams Packing Room Inspector Relationship Specialty Start Date End Date Angelica Guerra MD PCP - General Internal Medicine 03/02/17 08/01/21 [facility], Pcp PCP - General Internal Medicine 08/02/21 Angelica Guerra MD 02/10/17 Stacie Easton PA-C Specialist Cardiology 12/24/20 Mahesh Acevedo NP Specialist Cardiology 12/24/20 documented as of this encounter
--- OUTSIDE RECORDS SUMMARY | 2024-08-29 14:38 | XMS_ITS | Encounter Summary ---
Author Organization [facility] Address [address] [place] [address] Care Team Providers Care Supervisor Long Goods Name Role Phone Angelica Guerra MD Primary Care Provider Unava ilable Angelica Guerra MD Unavailable Unavailable Stacie Easton PA-C Unavailable Mahesh Acevedo NP Unavailable [phone] [facility], Pcp Primary Care Provider Unavailabl e Encounter Details Date Type Department Care Team Description 02/27/2018 [facility] Medical Records [address] [place] [address] Abstract, Provider Social History Tobacco Use Types [...] filedocumented in this encounter Care Teams Supervisor Long Goods Relationship Specialty Start Date End Date Angelica Guerra MD PCP - General Internal Medicine 03/02/17 08/01/21 [facility] Pcp PCP - General Internal Medicine 08/02/21 Angelica Guerra MD 02/10/17 Stacie Easton PA-C Specialist Cardiology 8/5/21 Mahesh Acevedo NP Specialist Cardiology 12/24/20 documented as of this encounter
--- OUTSIDE RECORDS SUMMARY | 2024-08-29 14:38 | XMS_ITS | Encounter Summary ---
Author Organization [email or web address] Address [address] [facility] 7t [place] [address] Care Team Providers Care Filter Changer Name Role Phone Angela Luz MD Primary Care Provide r Ninfa Dietrich PharmD Unavailable [phone] Reason for Visit * Reason Comments Med Refill Encounter Details Date Type Department Care Team ([facility] st Contact Info) Description 08/29/2024 Refill [facility] MEDICINE [address] [place], [place] [phone] Angela Luz MD [address] [place], [place] [phone] Nasal congestion Social History Tobacco Use Types Packs/Day Years [...] 09/20/2024 10:00 AM EDT Medication Management [address] [address] Ninfa Dietrich PharmD [address] [place] [address] 10/17/2024 10:00 AM EDT Clinical Support [address] [address] Nazia Martins RN documented as of this encounter Goals Goal Patient Goal Type Associated Problems Recent Progress Patient-Stated? Author Blood Pressure < 140/90 Blood Pressure 120/50(2024 9:37 AM EDT) No Ady Araujo Hemoglobin A1c < 8 Result Component 6.9( 10:18 AM EST) No Ady Araujo Note: Comorbidities: CHF, CKD, cirrhosis documented as of this encounter Visit Diagnoses Diagnosis Nasal congestion Other diseases of nasal cavity and sinuses documented in this encounter Care Teams Filter Changer Relationship Specialty Start Date End Date Angela Luz MD [address] [place] [address] PCP - General Family Medicine 10/27/20 Ninfa Dietrich PharmD [address] [place] [address] [place] [address] Pharmacist Internal Medicine 11/10/23 [employer] 12/20/23 documented as of this encounter
--- OUTSIDE RECORDS SUMMARY | 2024-08-29 14:38 | XMS_ITS | Encounter Summary ---
Author Organization [facility] Address [address] [place] [address] Care Team Providers Care Med Spa Manager Name Role Phone Angelica Guerra MD Primary Care Provider Unava ilable Angelica Guerra MD Primary Care Provider Unava ilable Lucia Montes Primary Care Provider Unavailab le Angelica Guerra MD Primary Care Provider Unava ilable Angelica Guerra MD Unavailable Unavailable Angelica Guerra MD Unavailable Unavailable Stacie Easton PA-C Unavailable [facility] NP Unavailable [phone] [facility], Pcp Primary Care Provider Unavailabl e Encounter Details Date Type Department Care Team Description 06/04/2012 Release of Information Medical Records [address] [place] [id number] Abstract, Provider Social History Tobacco Use Types [...] on filedocumented in this encounter Care Teams Med Spa Manager Relationship Specialty Start Date End Date Angelica Guerra MD PCP - General 02/10/11 06/24/15 Angelica Guerra MD PCP - General 06/25/15 02/09/17 Lucia Montes PCP - General Internal Medicine 02/10/17 03/01/17 Angelica Guerra MD PCP - General Internal Medicine 03/02/17 08/01/21 [facility], [facility] PCP - General Internal Medicine 08/02/21 Angelica Guerra MD 06/25/15 02/09/17 Angelica Guerra MD 02/10/17 Stacie Easton PA-C Specialist Cardiology 12/24/20 Mahesh Acevedo NP Specialist Cardiology 12/24/20 documented as of this encounter
--- OUTSIDE RECORDS SUMMARY | 2024-08-29 14:38 | XMS_ITS | Encounter Summary ---
Author Organization [employer] Address [address] [facility] [address] 7t [place] [address] Care Team Providers Care Superintendent Colliery Name Role Phone Angela Luz MD Primary Care Provide r Ninfa Dietrich PharmD Unavailable [phone] Reason for Visit * Reason Onset Date Comments Med Refill 05/30/2023 Encounter Details Date Type Department Care Team (Late st Contact Info) Description 05/30/2023 Refill [facility] CH[facility] MED & PEDS [address] [place], [place] [phone] Angela Luz MD [address] [place], [place] [phone] Primary hypertension Social History Tobacco Use Types [...] 09/20/2024 10:00 AM EDT Medication Management [address] [address] Ninfa Dietrich PharmD [address] [place] [address] 10/17/2024 10:00 AM EDT Clinical Support [address] [address] Nazia Martins RN documented as of this encounter Visit Diagnoses Diagnosis Primary hypertension Unspecified essential hypertension documented in this encounter Care Teams Superintendent Colliery Relationship Specialty Start Date End Date Angela Luz MD [address] [place] [address] PCP - General Family Medicine 10/27/20 Ninfa Dietrich PharmD [address] [place] [address] Pharmacist Internal Medicine 11/10/23 [email or web address] 12/20/23 documented as of this encounter
--- OUTSIDE RECORDS SUMMARY | 2024-08-29 14:38 | XMS_ITS | Encounter Summary ---
Author Organization [employer] Address 75 [facility] 7t [place] [address] Care Team Providers Care Pelletizer Tender Name Role Phone Angela Luz MD Primary Care Provide r Ninfa Dietrich PharmD Unavailable [phone] Reason for Visit * Reason Comments Med Refill Encounter Details Date Type Department Care Team (Late st Contact Info) Description 08/29/2024 Refill [facility] MEDICINE [address] [place], [place] [phone] [employer] ANP [address] [place], [place] [phone] Nasal congestion Social History Tobacco Use Types [...] Description 09/20/2024 10:00 AM EDT Medication Management [address] [address] Ninfa Dietrich, PharmD [address] [place] [address] 10/17/2024 10:00 AM EDT Clinical Support [address] [address] Nazia Martins, DIAMOND documented as of this [...] sinuses documented in this encounter Care Teams Pelletizer Tender Relationship Specialty Start Date End Date Angela Luz MD [address] [place] [address] PCP - General Family Medicine 10/27/20 Ninfa Dietrich PharmD [address] [place] [address] Pharmacist Internal Medicine 11/10/23 [employer] 12/20/23 documented as of this encounter
--- OUTSIDE RECORDS SUMMARY | 2024-08-29 14:38 | XMS_ITS | Encounter Summary ---
Author Organization [facility] Address [address] [place] [address] Care Team Providers Care Band Top Maker Name Role Phone Angelica Guerra MD Primary Care Provider Unava ilable Angelica Guerra MD Unavailable Unavailable Stacie Easton PA-C Unavailable Mahesh Acevedo NP Unavailable [phone] [facility], Pcp Primary Care Provider Unavailabl e Reason for Visit * Reason Comments E-prescribe Rx Request Encounter Details Date Type Department Care Team Description 07/02/2020 Refill General Surgery [address] [place], [place] [phone] Oziel Sanchez MD [address] [place] [address] E-prescribe Rx Request Social History Tobacco Use Types Packs/Day [...] have Coronavirus / COVID-19? No / Unsure 06/24/2020 12:48 PM EST documented as of this encounter Plan of Treatment Not on file documented as of this encounter Visit Diagnoses Diagnosis Breast pain Mastodynia documented in this encounter Care Teams Band Top Maker Relationship Specialty Start Date End Date Angelica Guerra MD PCP - General Internal Medicine 03/02/17 08/01/21 [facility] PCP - General Internal Medicine 08/02/21 Angelica Guerra MD 02/10/17 Stacie Easton PA-C Specialist Cardiology 12/24/20 Mahesh Acevedo NP Specialist Cardiology 12/24/20 documented as of this encounter
--- OUTSIDE RECORDS SUMMARY | 2024-08-29 14:38 | XMS_ITS | Clinical Summary ---
Author Organization [facility] Address [address] [place] [address] Phone Care Team Providers Care Facilities Engineer Name Role Phone Angela Luz MD [...] mouth 1 (one) time each day. Active ascorbic acid (VITAMIN C) 250 mg [...] mg tablet Take by mouth. Activ e diphenhydrAMIN E (BENADRYL) 25 mg capsule Take 1 capsule [...] by mouth every morning before breakfast. Active fluticasone-um eclidinium-zion anterol (TRELEGY ELLIPTA) 200-62.5-25 mcg inhaler Inhale into [...] Take 12.5 mg by mouth daily. Active oxyCODONE-acet aminophen (PERCOCET) 5-325 mg per tablet Take 1 [...] OR UPPER ARM, ROTATE INJECTION SITES. Active anastrozole (ARIMIDEX) 1 mg TAKE 1 TABLET BY MOUTH EVERY EVENING 30 tablet 11 025 Active anastrozole (ARIMIDEX) 1 mg TAKE 1 TABLET BY MOUTH EVERY EVENING 024 2024 Discontinued Immunizations Name Administration Dates Next Due COVID-19 (Pfizer/Comirnaty) 12yo and older 06/28/2023 Adayana SARS-CoV-2 COVID-19, mRNA, LNP-S, preservative free 06/10/2022,10/07/2021,03/02/2021,2020,07/02/2020 [...] due to type 2 di abetes mellitus ([facility] [place]24, [facility] [place] V28) DX:CKD stage 3 due to type 2 diabetes mellitus (HCC) Insomnia DX:Insomnia Chronic shoulder pain DX:Chronic shoulder pain Type 2 diabetes mellitus wit h diabetic neuropathy ([facility] [place] V24, [facility] [place] V28) DX:Type 2 diabet es mellitus with diabetic neuropathy ([facility]) Heel pain DX:Heel pain Venous insufficiency DX:Venous i nsufficiency HTN, goal below 140/80 DX:HTN, g oal below 140/80 Vitamin B12 deficiency anemia DX :Vitamin B12 deficiency anemia Allergic rhinitis DX:Allergic rh initis Solitary pulmonary nodule DX:Alisa itary pulmonary nodule Nonproliferative diabetic re tinopathy associated with type 2 diabetes mellitus ([facility] [place] V24, [facility] [place] V28) DX:Nonproliferative diabeti c retinopathy associated with type 2 diabetes mellitus ([facility]) Mild obstructive sleep apnea DX: Mild obstructive sleep apnea RLS (restless legs syndrome) DX: RLS (restless legs syndrome) Anemia DX:Anemia PAD (peripheral artery disea se) ([facility] [place] V24) DX:PAD (peripheral artery di sease) ([facility]) Hyperlipidemia DX:Hyperlipidemi a Essential hypertension, benign D X:Essential hypertension, benign Glaucoma DX:Glaucoma DM (diabetes mellitus) type II controlled, neurological manifestation ([facility] [place] V24, [facility] [place] V28) DX:DM (diabetes mellitus) ty pe II controlled, neurological manifestation ([facility]) Breast cancer ([facility] [place] V24, [facility] [place] V28) Social History Tobacco Use Types Packs/Day Years [...] [facility] Hematology Oncology [address] [place] [id number] Nabeel March MD [address] [place] [address] Health Maintenance Due Date Last Done Comments [...] 03/30/2021, 05/08/2017, Additional history exists RSV Immunization Adult Patients Completed 07/20/2023 Zoster Vaccines Completed 07/20/2023, 03/30/2021 [...] age to complete this topic Meningococcal B Vaccine Aged Out No l onger eligible based on patient's age to complete [...] Signed Date: 04/19/2024 14:13 ET Workstation ID: [id number] Transcribed By: Self Edit Transcribed Date: 04/19/2024 [...] Tomosynthesis Computer-aided detection was employed with the [employer] AI 3-D. TISSUE DENSITY: The breasts are [...] Signed Date: 04/19/2024 14:13 ET Workstation ID: [id number] Transcribed By: Self Edit Transcribed Date: 04/19/2024 [...] probability of hip fracture of 4.0%. Code 63899 -------- FINAL REPORT -------- Dictated By: Joby Brand Dictated Date: 04/19/2024 09:53 ET Assigned Physician: Joby Brand Reviewed and Electronically Signed By: Joby Brand Signed Date: 04/19/2024 09:54 ET Workstation ID: [id number] Transcribed By: Self Edit Transcribed Date: 04/19/2024 [...] density of the femurs bilaterally is 0.907 gm/[id number] is 90% of that of young normals [...] probability of hip fracture of 4.0%. Code 38643 -------- FINAL REPORT -------- Dictated By: Joby Brand Dictated Date: 04/19/2024 09:53 ET Assigned Physician: Joby Brand Reviewed and Electronically Signed By: Joby Brand Signed Date: 04/19/2024 09:54 ET Workstation ID: [id number] Transcribed By: Self Edit Transcribed Date: 04/19/2024 09:53 ET Result [facility] Nabeel March MD IMG DXA PROCEDURES Final Res ult * Lipid panel (05/23/2023) [facility] Triglycerides 0 mg/dL Comment:No interpretation Cholesterol 0 mg/dL Comment:No interpretation HDL 0 mg/dL Comment:No interpretation LDL Cholesterol 0 mg/dL Comment:No interpretation Blood Venous blood specimen / Unknown Result [facility] Historical Provider LAB BLOOD ORDERABLES Ruthy l Result * Urine Albumin Creatinine Ratio (10/07/2022) [facility] Urine Albumin Creatinine Ratio Abstracted Result [facility] Provider HEALTH MAINTENANCE Final Result * Annual BMP Blood Test (01/13/2022) [facility] Annual BMP Blood Test Abstracted Result [facility] Historical Provider HEALTH MAINTENANCE Final Result * Hepatitis C Screening (11/17/2021) [facility] Hepatitis C Screening Abstracted Result [facility] Historical Provider HEALTH MAINTENANCE Final Result * Hemoglobin A1c (03/29/2021) [facility] Hemoglobin A1C 0.0 % Comment:No interpretation Blood Venous blood specimen / Unknown Result [facility] Historical Provider LAB BLOOD ORDERABLES Ruthy l Result from Last 3 Months or Most Recently Relevant to Health Maintenance Insurance [employer] MEDICARE Member Subscriber Plan / Payer (Ef fective 2023-Present) Name:Angela Dominguez Relation to Subscriber:Self Name:Angela Dominguez Payer ID:[id number] Group ID:[id number] Type:Not on file Address: [place] [address] [id number] Care Teams Facilities Engineer Relationship Specialty Start Date End Date Angela Luz MD [address] [place] [phone] PCP - General Internal Medicine 01/28/21
--- OUTSIDE RECORDS SUMMARY | 2024-08-29 14:38 | XMS_ITS | Encounter Summary ---
Author Organization [facility] Address [address] [place] [address] Care Team Providers Care Threading Machine Feeder Automatic Name Role Phone Angelica Guerra MD Primary Care Provider Unava ilable Lucia Montes Primary Care Provider Unavailab le Angelica Guerra MD Primary Care Provider Unava ilable Angelica Guerra MD Unavailable Unavailable Angelica Guerra MD Unavailable Unavailable Stacie Easton PA-C Unavailable [facility] Unavailable [phone] [facility], Pcp Primary Care Provider [facility] e Encounter Details Date Type Department Care Team Description 06/25/2015 Decorative Cutting Machine Tender Report Medical Records [address] [place] [address] Grey Joshua MD Social History Tobacco Use Types Packs/Day [...] on filedocumented in this encounter Care Teams Threading Machine Feeder Automatic Relationship Specialty Start Date End Date Angelica Guerra MD PCP - General 06/25/15 02/09/17 Lucia Montes PCP - General Internal Medicine 02/10/17 03/01/17 Angelica Guerra MD PCP - General Internal Medicine 03/02/17 08/01/21 [facility], Pcp PCP - General Internal Medicine 08/02/21 Angelica Guerra MD 06/25/15 02/09/17 Angelica Guerra MD 02/10/17 Stacie Easton PA-C Specialist Cardiology 12/24/20 Mahehs Acevedo NP Specialist Cardiology 12/24/20 documented as of this encounter
--- OUTSIDE RECORDS SUMMARY | 2024-08-29 14:38 | XMS_ITS | Encounter Summary ---
Author Organization [facility] Address [address] [place] [address] Care Team Providers Care Foreign Language Interpreter Name Role Phone Angelica Guerra MD Primary Care Provider Unava ilable Angelica Guerra MD Unavailable Unavailable Stacie Easton PA-C Unavailable Mahesh Acevedo NP Unavailable [phone] [facility], Pcp Primary Care Provider Unavailabl e Reason for Visit * Reason Onset Date Comments VNA Call 05/18/2018 Encounter Details Date Type Department Care Team Description 05/18/2018 Telephone Adult [address] [address] Angelica Guerra MD VNA Call Social History Tobacco Use Types Packs/Day Years Used Date Smoking Tobacco: Former Smokeless Tobacco: Never Alcohol Use Standard Drinks/Week Comments No 0 (1 standard drink = 0.6 oz pur e alcohol) Sex Assigned at Date Recorded Not on file documented as of this encounter Miscellaneous Notes * Telephone Encounter - Kayla Ballard R.N. - 05/25/2018 1:38 PM EST Thank you for forwarding this information to [facility]. Pt was previously reached out to for enrollment in [facility] CM program and had declined; dtr was present at the time of the home visit. Pt stated her dtr assists with IADLs which includes meds. Left msg for [facility] to speak with career resource specialist/nurse to discuss options for medication managementservices. Thank you, Kayla Ballard RN Loin [facility] Office: [phone] * Telephone Encounter - Vanda Schneider CMA - 05/25/2018 10:54 AM EST Just returned from vacation. Message sent to care management * Telephone Encounter - Angelica Guerra MD - 05/21/2018 12:46 PM EST Agree, she should have help with medication management. [facility] is not a VNA agency though I will ask our Quality nurse to reach out to pt for case management. [facility] has [facility] * Telephone Encounter - Renae Dominguez LShenaP.NShena - 05/18/2018 2:56 PM EST fyi to dr Guerra * Telephone Encounter - Emily Hannon - 05/18/2018 1:22 PM EST VNA CALL Which A office is calling? [facility] Full name of caller: Nisha The caller is A nurse Is the caller at the patients home?: NO Reason for call: Nisha thinks that patient has poor understanding of her medications wants Angelica Guerra to be aware as patient has heavy set of medications including diabetes meds, psych and painmedications. Nisha thinks patient needs help with medication management. Does caller need an urgent call back? NO Was CONTACT Telephone # obtained above?: YES Fax #: documented in this encounter Plan of Treatment Not on file documented as of this encounter Visit Diagnoses Not on filedocumented in this encounter Care Teams Foreign Language Interpreter Relationship Specialty Start Date End Date Angelica Guerra MD PCP - General Internal Medicine 03/02/17 08/01/21 [facility] PCP - General Internal Medicine 08/02/21 Angelica Guerra MD 02/10/17 Stacie Easton PA-C Specialist Cardiology 12/24/20 Mahesh Acevedo NP Specialist Cardiology 12/24/20 documented as of this encounter
--- OUTSIDE RECORDS SUMMARY | 2024-08-29 14:38 | XMS_ITS | Encounter Summary ---
Author Organization [employer] Address [address] [place] [address] Care Team Providers Care Reading Interventionist Name Role Phone Angela Luz MD Primary Care Provide r Ninfa Dietrich PharmD Unavailable [phone] Reason for Visit * Reason Onset Date Comments Call Back Request 01/24/2024 Encounter Details Date Type Department Care Team ([facility] st Contact Info) Description 01/24/2024 Telephone [facility] [address], [place] [phone] Angela Luz MD [address] [place], [place] [phone] Call Back Request Social History Tobacco Use [...] EDT Tc from Angela the VNA at [facility] requesting a calll back in regards to a sliding scale that was suppose to be faxed to [phone] please call Angela at [phone] documented in this encounter Plan of Treatment Upcoming Encounters Date Type Department Care Team (Late st Contact Info) Description 09/20/2024 10:00 AM EDT Medication Management [address] [address] Ninfa Dietrich, PharmD [address] [place] [address] 10/17/2024 10:00 AM EDT Clinical Support [facility] [address] [place] [address] Nazia Martins RN documented as of this [...] on filedocumented in this encounter Care Teams Reading Interventionist Relationship Specialty Start Date End Date Angela Luz MD [address] [place] [address] PCP - General Family Medicine 10/27/20 Ninfa Dietrich PharmD [address] [place] [address] Pharmacist Internal Medicine 11/10/23 [facility] 12/20/23 documented as of this encounter
--- OUTSIDE RECORDS SUMMARY | 2024-08-29 14:38 | XMS_ITS | Encounter Summary ---
Author Organization [facility] Address [address] [place] [address] Care Team Providers Care Timekeeper Supervisor Name Role Phone Angelica Guerra MD Primary Care Provider Unava ilable Angelica Guerra MD Unavailable Unavailable Stacie Easton PA-C Unavailable Mahesh Acevedo NP Unavailable [phone] [facility], Pcp Primary Care Provider Unavailabl e Encounter Details Date Type Department Care Team Description 06/26/2018 [employer]iconductor Testing Group Leader Report Medical Records [address] [place] [address] Zeina Renee [address] [place] [address] Social History Tobacco Use Types Packs/Day Years [...] on filedocumented in this encounter Care Teams Timekeeper Supervisor Relationship Specialty Start Date End Date Angelica Guerra MD PCP - General Internal Medicine 03/02/17 08/01/21 [facility], Pcp PCP - General Internal Medicine 08/02/21 Angelica Guerra MD 02/10/17 Stcaie Easton PA-C Specialist Cardiology 12/24/20 Mahesh Acevedo NP Specialist Cardiology 12/24/20 documented as of this encounter
--- OUTSIDE RECORDS SUMMARY | 2024-08-29 14:38 | XMS_ITS | Encounter Summary ---
Author Organization [facility] Address [address] [place] [address] Care Team Providers Care Alterations Sewer Name Role Phone Angelica Guerra MD Primary Care Provider Unava ilable Angelica Guerra MD Unavailable Unavailable Stacie Easton PA-C Unavailable Mahesh Acevedo NP Unavailable [phone] [facility], Pcp Primary Care Provider Unavailabl e Reason for Visit * Reason Comments E-prescribe Rx Request Encounter Details Date Type Department Care Team Description 03/30/2020 Refill General Surgery [address] [place] [address] Oziel Sanchez MD [address] [place] [address] E-prescribe Rx Request Social History Tobacco Use [...] Mastodynia documented in this encounter Care Teams Alterations Sewer Relationship Specialty Start Date End Date Angelica Guerra MD PCP - General Internal Medicine 03/02/17 08/01/21 [facility] PCP - General Internal Medicine 08/02/21 Angelica Guerra MD 02/10/17 Stacie Easton PA-C Specialist Cardiology 12/24/20 Mahesh Acevedo NP Specialist Cardiology 12/24/20 documented as of this encounter
--- OUTSIDE RECORDS SUMMARY | 2024-08-29 14:38 | XMS_ITS | Encounter Summary ---
Author Organization [facility] Address [address] [place] [address] Care Team Providers Care Egg Candler Name Role Phone Angelica Guerra MD Primary Care Provider Unava ilable Angelica Guerra MD Unavailable Unavailable Stacie Easotn PA-C Unavailable Mahesh Acevedo NP Unavailable [phone] [facility], Pcp Primary Care Provider Unavailabl e Encounter Details Date Type Department Care Team Description 05/06/2020 Ophthalmic Pathologist Report Medical Records [address] [place] [address] Sarah Parks Social History Tobacco Use Types Packs/Day Years [...] on filedocumented in this encounter Care Teams Egg Candler Relationship Specialty Start Date End Date Angelica Guerra MD PCP - General Internal Medicine 03/02/17 08/01/21 [facility], Pcp PCP - General Internal Medicine 08/02/21 Angelica Guerra MD 02/10/17 Stacie Easton PA-C Specialist Cardiology 12/24/20 Mahesh Acevedo NP Specialist Cardiology 12/24/20 documented as of this encounter
--- OUTSIDE RECORDS SUMMARY | 2024-08-29 14:38 | XMS_ITS | Encounter Summary ---
Author Organization [facility] Address [address] [place] [address] Care Team Providers Care Administrative Supervisor Name Role Phone Angelica Guerra MD Primary Care Provider Unava ilable Angelica Guerra MD Unavailable Unavailable Stacie Easton PA-C Unavailable Mahesh Acevedo NP Unavailable [phone] [facility], Pcp Primary Care Provider Unavailabl e Encounter Details Date Type Department Care Team Description 03/28/2018 Hosiery Bagger Report Medical Records [address] [place] [address] Zeina Renee [address] [place] [address] Social History Tobacco Use Types Packs/Day Years [...] on filedocumented in this encounter Care Teams Administrative Supervisor Relationship Specialty Start Date End Date Angelica Guerra MD PCP - General Internal Medicine 03/02/17 08/01/21 [facility], Pcp PCP - General Internal Medicine 08/02/21 Angelica Guerra MD 02/10/17 Stacie Easton PA-C Specialist Cardiology 12/24/20 Mahesh Acevedo NP Specialist Cardiology 12/24/20 documented as of this encounter
--- OUTSIDE RECORDS SUMMARY | 2024-08-29 14:38 | XMS_ITS | Encounter Summary ---
Author Organization [employer] Address [address] [place] [address] Care Team Providers Care Funeral Driver Name Role Phone Angela Luz MD Primary Care Provide r Ninfa Dietrich PharmD Unavailable [phone] Reason for Visit * Reason Onset Date Comments Med Refill 05/30/2023 Encounter Details Date Type Department Care Team (Late st Contact Info) Description 05/30/2023 Refill [facility] [address] [place], [place] [phone] Balwinder Kumar MD [address] [place], [place] [phone] Seasonal allergic rhinitis, unspecified trigger Social History [...] 09/20/2024 10:00 AM EDT Medication Management [address] [address] Ninfa Dietrich PharmD [address] [place] [address] 10/17/2024 10:00 AM EDT Clinical Support [address] [address] Nazia Martins RN documented as of this encounter Visit Diagnoses Diagnosis Seasonal allergic rhinitis, unspecified trigger documented in this encounter Care Teams Funeral Driver Relationship Specialty Start Date End Date Angela Luz MD [address] [place] [address] PCP - General Family Medicine 10/27/20 Ninfa Dietrich PharmD [address] [place] [address] Pharmacist Internal Medicine 11/10/23 [employer] 12/20/23 documented as of this encounter
--- OUTSIDE RECORDS SUMMARY | 2024-08-29 14:38 | XMS_ITS | Encounter Summary ---
Author Organization [facility] Address [address] [place] [address] Care Team Providers Care Chain Builder Loom Control Name Role Phone Angelica Guerra MD Primary Care Provider Unava ilable Angelica Guerra MD Unavailable Unavailable Stacie Easton PA-C Unavailable Mahesh Acevedo NP Unavailable [phone] [facility], Pcp Primary Care Provider Unavailabl e Reason for Visit * Reason Onset Date Comments Testing 12/28/2020 cx appt Encounter Details Date Type Department Care Team Description 12/28/2020 Telephone Cardio PVC POC [address] [place], [place] [phone] Jevon Sellers PA [address] [place] [phone] Testing (cx appt ) Social History Tobacco Use Types Packs/Day Years Used Date Smoking Tobacco: Former Smokeless Tobacco: Never Alcohol Use Standard Drinks/Week Comments No 0 (1 standard drink = 0.6 oz pur e alcohol) Sex Assigned at Date Recorded Not on file documented as of this encounter Miscellaneous Notes * Telephone Encounter - Jackeline Mandel - 12/28/2020 12:16 PM EDT 12/28/2020 Pts daughter irving Called to cx nuc On 12/28/2020 states pt has a sress test at [facility] on 12/28/2020 in the AM and is now seeing Cardiology at [facility] Ryan documented in this encounter Plan of Treatment Not on file documented as of this encounter Visit Diagnoses Not on filedocumented in this encounter Care Teams Chain Builder Loom Control Relationship Specialty Start Date End Date Angelica Guerra MD PCP - General Internal Medicine 03/02/17 08/01/21 [facility] Pcp PCP - General Internal Medicine 08/02/21 Angelica Guerra MD 02/10/17 Stacie Easton PA-C Specialist Cardiology 12/24/20 Mahesh Acevedo NP Specialist Cardiology 12/24/20 documented as of this encounter
--- OUTSIDE RECORDS SUMMARY | 2024-08-29 14:38 | XMS_ITS | Encounter Summary ---
Author Organization [facility] Address [address] [place] [address] Care Team Providers Care Flight Communications Specialist Name Role Phone Angelica Guerra MD Primary Care Provider Unava ilable Angelica Guerra MD Primary Care Provider Unava ilable Lucia Montes Primary Care Provider Unavailab le Angelica Guerra MD Primary Care Provider Unava ilable Angelica Guerra MD Unavailable Unavailable Angelica Guerra MD Unavailable Unavailable Stacie Easton PA-C Unavailable [facility] Unavailable [facility], Pcp Primary Care Provider Unavailabl e Encounter Details Date Type Department Care Team Description 03/01/2012 Supervisor Rides Report Medical Records [address] [place] [address] Bobby Guevara MD Social History Tobacco Use Types Packs/Day [...] on filedocumented in this encounter Care Teams Flight Communications Specialist Relationship Specialty Start Date End Date Angelica Guerra MD PCP - General 02/10/11 06/24/15 Angelica Guerra MD PCP - General 06/25/15 02/09/17 Lucia Montes PCP - General Internal Medicine 02/10/17 03/01/17 Angelica Guerra MD PCP - General Internal Medicine 03/02/17 08/01/21 [facility] PCP - General Internal Medicine 08/02/21 Angelica Guerra MD 06/25/15 02/09/17 Angelica Guerra MD 02/10/17 Stacie Easton PA-C Specialist Cardiology 12/24/20 Mahesh Acevedo NP Specialist Cardiology 12/24/20 documented as of this encounter
--- OUTSIDE RECORDS SUMMARY | 2024-08-29 14:39 | XMS_ITS | Clinical Summary ---
Author Organization [facility] Facility Address [address] [place] [id number] Care Team Providers Care Rn International Name Role Phone Angela Luz MD Primary [...] before bedtime. 180 tablet 3 3 Active Farxiga 10 MG tablet TAKE 1 TABLET BY MOUTH EVERY MORNING 90 tablet 3 4 Active torsemide (DEMADEX) 20 MG tabletIndicatio ns:Hypertension ,Type 2 diabetes mellitus with diabetic chronic kidney disease (HCC),Anemia in chronic kidney disease,Iron deficiency anemia, not otherwise specified TAKE 1 TABLET BY MOUTH TWICE DAILY IN THE MORNING AND IN THE EVENING 180 tablet 2 5 Active calcitriol (ROCALTROL) 0.25 MCG capsule TAKE 1 CAPSULE BY MOUTH EVERY OTHER DAY IN THE MORNING 45 capsule 5 Active predniSONE (DELTASONE) 20 MG tablet Take 40 mg by mouth 1 (one) time each day 08/06/19 25 Discontinu ed(Alterna te therapy) Active Problems Problem Noted Date Diagnosed Date [...] 06/11/2012 Overview (07/20/2020): 01/[address] in [place] Last CT (abd) 06/02/12 - 5x7 pulm nodule, recommended rpt CT to confirm 2 years of stability. Obstructive sleep apnea 01/31/201212/21 Restless legs 10/06/2011 01/11/2021 Glaucoma 02/15/2011 01/11/2021 Hyperlipidemia 02/15/2011 01/11/2021 Encounters Date Type Department Care Team Description 08/05/2024 1:00 PM EDT Office Visit [facility] [address] [place] [address] Beau Vargas MD Stage 3b chronic kidney disease (HCC) (Primary Dx); Type 2 diabetes mellitus with diabetic chronic kidney disease (HCC); Renal osteodystrophy; Anemia in chronic kidney disease 07/30/2024 Refill [facility] [address] [place] [address] Beau Vargas MD 06/26/2024 Refill [facility] [address] [place] [address] Beau Vargas MD Hypertension; Type 2 diabetes mellitus with diabetic chronic kidney disease (HCC); Anemia in chronic kidney disease; Iron deficiency anemia, not otherwise specified from Last 3 Months Immunizations Immunization Administration Dates Next Due Influenza TIV (IM) [...] Sign Reading Time Taken Comments Blood Pressure 124/78 08/05/2024 12:39 PM EDT Pulse 77 08/05/2024 12:39 PM EDT Temperature - - Respiratory Rate - - Oxygen Saturation 99% 08/05/2024 12: 39 PM EDT Inhaled Oxygen Concentration - - Weight 63.4 kg (139 lb 12.8 oz) 025 12:39 PM EDT Height 144.8 cm (4' 9 ) 03/30/2020 12:0 0 PM EST Body Mass Index 30.25 03/30/2020 12:00 PM EST Plan of Treatment Upcoming Encounters Date Type Department Care Team (Late st Contact Info) Description 12/23/2024 3:15 PM EDT Office Visit [facility] [address] [place] [address] Beau Vargas MD [address] [facility] [address] [place] [address] Health Maintenance Due Date Last Done Comments [...] 12/06/2023, 03/30/2023, Additional history exists Pneumococcal Vaccine: 50+ Years Completed 06/28/2023, 03/30/2021, 05/08/2017, Additional history exists Influenza Vaccine Completed 03/26/2024, , 03/14/2020, Additional history exists Procedures Procedure Name Priority Date/Time Associated Diagnosis Comments PROTEIN / CREATININE RATIO, URINE Routine 07/30/2024 9:39 AM EDT ALBUMIN, URINE, RANDOM Routine 9:39 AM EDT URINALYSIS WITH MICROSCOPIC Routine 07/30/2024 9:39 AM EDT URINALYSIS Routine 07/30/2024 9:39 AM EDT PTH, INTACT (HC) Routine 07/30/2024 8:25 AM EDT VITAMIN D 25 HYDROXY Routine 07/30/2024 8:25 AM EDT LIPID PANEL Routine 07/30/2024 8:25 AM EDT FERRITIN Routine 07/30/2024 8:25 AM EDT IRON PANEL (FE, TIBC, TSAT) Routine 07/30/2024 8:25 AM EDT MAGNESIUM Routine 07/30/2024 8:25 AM EDT PHOSPHATE ( PHOSPHORUS) Routine 07/30/2024 8:25 AM EDT COMPREHENSIVE METABOLIC PANEL Routine 07/30/2024 8:25 AM EDT CBC AND DIFFERENTIAL Routine 07/30/2024 8:25 AM EDT from Last 3 Months Results * Protein, Total, Random Urine w/Creatinine (Protein/Creat Ratio) (07/30/2024 9:39 AM EDT) Protein Urine Random <7 <12 mg/dL See order comments Protein/Creatin ine Ratio, Urine TNP <0.2 See order comments Comment: Unable to calculate urine protein creatinine ratio due to low creatinine or protein result. 07/30/2024 9:39 AM EDT 07/30/2024 9:39 AM EDT Beau Vargas MD LAB URINE ORDERABLES Final Re sult Performing Organization Address [facility] de Phone Number [place] See order comments [place] [address] * Albumin, urine, random (07/30/2024 9:39 AM EDT) Creatinine, Urine 82.20 mg/dL Se e order comments Urine Microalbumin 17.0 mg/L See order comments Microalbumin/Crea tinine Ratio 20.6 <30 ug/mg cr See order comments Comment: ?Albumin/Creatinine Ratio Reference Ranges: ?Normal: < 30 ug/mg creatinine ?Microalbuminuria: ??30 - 300 ug/mg creatinine Clinical Albuminuria: ??> 300 ug/mg creatinine 07/30/2024 9:39 AM EDT 07/30/2024 9:39 AM EDT Beau Vargas MD LAB URINE ORDERABLES Final Re sult Performing Organization Address [facility] de Phone Number [place] See order comments [place] [address] * (ABNORMAL) Urinalysis with microscopic (07/30/2024 9:39 AM EDT) Color Urine Yellow See orde r comments Appearance Urine Cloudy See order comments pH Urine 5.5 5.0 - 9.0 See order comments Glucose Urine >=1000(A) Negative mg/dL See order comments Blood, Urine Negative Negative See ord er comments Specific [place] Urine 1.015 1.005 - 1.025 See order comments Protein Urine Negative Neg-Trace mg/dL See order comments Ketones, Urine Negative Negative mg/dL See order comments Nitrite, Urine Negative Negative See o rder comments Leukocyte Esterase Urine Moderate (2+)(A) Negative See order comments RBC, Urine 0-2 0 - 2 /HPF See orde r comments WBC 21-50(A) 0 - 5 /HPF See order comments Squamous Epithelial, Urine >20 0 - 2 /HPF See order comments Bacteria, Urine 4+ None Seen See order comments Hyaline Casts, Urine 3-5 0 - 2 /LPF See order comments 07/30/2024 9:39 AM EDT 07/30/2024 9:39 AM EDT Beau Vargas MD LAB URINE ORDERABLES Final Re sult Performing Organization Address [facility] de Phone Number [place] See order comments [place] [address] * (ABNORMAL) Urinalysis (07/30/2024 9:39 AM EDT) Color Urine Yellow See orde r comments Appearance Urine Cloudy See order comments pH Urine 5.5 5.0 - 9.0 See order comments Glucose Urine >=1000(A) Negative mg/dL See order comments Blood, Urine Negative Negative See ord er comments Specific [place] Urine 1.015 1.005 - 1.025 See order comments Protein Urine Negative Neg-Trace mg/dL See order comments Ketones, Urine Negative Negative mg/dL See order comments Nitrite, Urine Negative Negative See o rder comments Leukocyte Esterase Urine Moderate (2+)(A) Negative See order comments 07/30/2024 9:39 AM EDT 07/30/2024 9:39 AM EDT Beau Vargas MD LAB URINE ORDERABLES Final Re sult Performing Organization Address [facility] [place] Co de Phone Number [facility] See order comments [place] [address] * (ABNORMAL) PTH, Intact (07/30/2024 8:25 AM EDT) Parathyroid Hormone, Intact 475.0(H) 8.7 - 77.1 pg/mL See order comments 07/30/2024 8:25 AM EDT 07/30/2024 8:25 AM EDT us Beau Vargas MD LAB [id number] SOLICITED RESULTS Final Result Performing Organization Address [facility] [place] Co de Phone Number [place] See order comments [place] [address] * Iron Panel (Fe, TIBC, TSAT) (07/30/2024 8:25 AM EDT) Iron 87 30 - 160 mcg/dL See order comments TIBC 251 228 - 428 mcg/dL See order comments Iron Saturation (TSat) 35 15 - 50 % See order comments UIBC 164 ug/dL See order comments 07/30/2024 8:25 AM EDT 07/30/2024 8:25 AM EDT us Beau Vargas MD LAB BLOOD ORDERABLES Final Re sult Performing Organization Address [facility] de Phone Number [place] See order comments [place] [address] * (ABNORMAL) Vitamin D 25 Hydroxy (07/30/2024 8:25 AM EDT) Vitamin D, 25-Hydroxy 28.3(L) >30 ng/mL See order comments Comment: Health Based Reference Values* < 20 ??ng/mL ??Deficient 20-30 ng/mL ??Insufficient > 30 ??ng/mL ??Sufficient *Christi KOCH. N Engl J Med. 2007;357:266-280 Care must be taken in interpreting Vitamin D results from different laboratories and methodologies. ??Published data demonstrated that results from patients undergoing hemodialysis may show a negative bias when tested with various automated 25-OH vitamin D assays when compared to LC-MS/MS. When testing samples from patients whose predominant form of Vitamin D is Vitamin D2, such as patients receiving Vitamin D2 supplementation, results that are subtherapeutic should be confirmed with another method such as LC-MS/MS. 07/30/2024 8:25 AM EDT 07/30/2024 8:25 AM EDT us Beau Vargas MD LAB BLOOD ORDERABLES Final Re sult [place] See order comments [place] [address] * (ABNORMAL) CBC and Differential (07/30/2024 8:25 AM EDT) WBC 5.3 4.8 - 10.8 X10*3/uL See order comments RBC 4.49 4.20 - 5.50 X10*6/uL See order comments Hgb 12.0 12.0 - 16.0 g/dl See order comments Hematocrit 35.8(L) 37.0 - 47.0 % See order comments MCV 79.7(L) 80.0 - 98.0 fL See order comments MCH 26.7(L) 27.0 - 33.0 pg See order comments MCHC 33.5 31.0 - 35.0 g/dl See order comments RDW 18.8(H) 11.0 - 16.0 % See order comments Platelets 179 160 - 400 X10*3/uL See order comments MPV 9.4 9.4 - 12.3 fL See order comments Neutrophils % Auto 51.4 45 - 73 % See order comments Immature Granulocytes 0.6(H) 0.0 - 0.4 % See order comments Lymphocytes Relative 31.0 20 - 40 % See order comments Monocytes 9.9 2 - 11 % See order comments Eosinophils Relative 6.5(H) 0 - 4 % See order comments Basophils Relative 0.6 0 - 2 % See order comments nRBC Count 0.0 0.0 - 0.2 /100WBC See order comments Neutrophils Absolute 2.7 2.0 - 8.3 x10*3/uL See order comments Immature Grans (Absolute) 0.03 0.00 - 0.03 X10*3/uL See order comments Lymphocytes Absolute 1.6 1.2 - 4.9 X10*3/uL See order comments Monocytes Absolute 0.5 0.1 - 1.2 X10*3/uL See order comments Eosinophils Absolute 0.3 0.0 - 0.4 X10*3/uL See order comments Basophils Absolute 0.0 0.0 - 0.2 X10*3/uL See order comments NRBC Absolute 0.000 0.0 - 0.012 X10*3/uL See order comments 07/30/2024 8:25 AM EDT 07/30/2024 8:25 AM EDT us Beau Vargas MD LAB BLOOD ORDERABLES Final Re sult Performing Organization Address [facility] Phone Number [place] See order comments [place] [address] * Phosphorus (07/30/2024 8:25 AM EDT) Phosphorus, Serum 4.0 2.7 - 4.5 mg/dL See order comments 07/30/2024 8:25 AM EDT 07/30/2024 8:25 AM EDT us Beau Vargas MD LAB BLOOD ORDERABLES Final Re sult Performing Organization Address [facility] Phone Number [place] See order comments [place] [address] * Magnesium (07/30/2024 8:25 AM EDT) Magnesium 2.1 1.6 - 2.6 mg/dL See order comments 07/30/2024 8:25 AM EDT 07/30/2024 8:25 AM EDT us Beau Vargas MD LAB BLOOD ORDERABLES Final Re sult Performing Organization Address [facility] Phone Number [place] See order comments [place] [address] * (ABNORMAL) Ferritin (07/30/2024 8:25 AM EDT) Ferritin 398(H) 10 - 250 ng/mL See order comments 07/30/2024 8:25 AM EDT 07/30/2024 8:25 AM EDT us Beau Vargas MD LAB BLOOD ORDERABLES Final Re sult Performing Organization Address [facility] Co de Phone Number [place] See order comments [place] [address] * Lipid panel (07/30/2024 8:25 AM EDT) Triglycerides 130 <150 mg/dL See o rder comments Comment: Desirable Triglyceride: ? less than 150 mg/dL Borderline High Triglyceride ??150-199 mg/dL High Triglyceride: ?200-499 mg/dL Very High Triglyceride: ? greater than or equal to ?5OO mg/dL Cholesterol 126 <200 mg/dL See ord er comments Comment: Desirable Cholesterol: ?less than 200 mg/dL Borderline High Cholesterol: ??200-239 mg/dL High Cholesterol: ? greater than 239 mg/dL LDL Calculated 53 <100 mg/dL See order comments Comment: Desirable LDL: ? less than 100 mg/dL Near Optimal/Above Optimal LDL: ??110-129 mg/dL Borderline High LDL: ? 130-159 mg/dL High LDL: ?160-189 mg/dL Very High LDL: ? greater than or equal to ? 190 mg/dL HDL 47 >40 mg/dL See order comments Comment: Desirable HDL: ??greater than 40 mg/dL ?Note: This HDL assay may give artificially ?low results in patients with liver disease. 07/30/2024 8:25 AM EDT 07/30/2024 8:25 AM EDT us Beau Vargas MD LAB BLOOD ORDERABLES Final Re sult [place] See order comments [place] [address] * (ABNORMAL) Comprehensive Metabolic Panel (07/30/2024 8:25 AM EDT) Sodium 144 135 - 145 mmol/L See order comments Potassium 3.9 3.3 - 5.1 mmol/L See order comments Chloride 108 96 - 108 mmol/L See order comments Bicarbonate (CO2) 27 22 - 29 mmol/L See order comments Anion Gap 13 12 - 20 See order comments BUN 31(H) 9 - 16 mg/dL See order comments Creatinine Serum 1.57(H) 0.5 - 1.4 mg/dL See order comments eGFR 33 See order comments Comment: Chronic Kidney Disease: ??Estimated GFR < 60 mL/min/1.73m2 Severe Kidney Disease: ??Estimated GFR < 15 mL/min/1.73m2 Glucose 161(H) 60 - 115 mg/dL See order comments Calcium 9.3 8.4 - 10.2 mg/dL See order comments Total Bilirubin 0.5 0.0 - 1.0 mg/dL See order comments AST (SGOT) 41(H) 5 - 31 U/L See orde r comments ALT (SGPT) 33(H) 0 - 31 U/L See orde r comments Total Protein 7.9 6.5 - 8.0 g/dL See order comments Albumin 3.8 3.5 - 5.0 g/dL See order comments Alkaline phosphatase 134(H) 39 - 117 U/L See order comments 07/30/2024 8:25 AM EDT 07/30/2024 8:25 AM EDT Beau Vargas MD LAB BLOOD ORDERABLES Final Re sult [place] See order comments [place] [address] from Last 3 Months Insurance [facility] ([id number]) [place] [phone] [address] [place] [address] [facility] ([id number]) [place] [phone] Care Teams Rn International Relationship Specialty Start Date End Date Angela Luz MD [address] [place] [address] [facility] [address] PCP - General Internal Medicine 01/12/21
[2024-09-13 15:04] VITALS: BMI 28.1
--- NOTE | 2024-11-27 13:07 | P.CONAN_ITS ---
Documented by User: Adriana Cosby NP 11/27/24 13:13 HPI - Anesthesia Eval Consult details Narrative: 69yo F for Upper Endoscopy and Colonoscopy Cardiac optimized. Follows [facility] Cardiology for: Pacer (SSS) - interrogation 07/2024 on chart Pulmo optimized. Follows [facility] pulmo for ROLAN (CPAP QHS) and asthma (stable without albuterol need) PMFSH Active Problems Active Problems: All Active Problems Epigastric abdominal pain (Acute) Left shoulder pain (Acute) MDD (major depressive disorder), recurrent episode, moderate (Acute) Adjustment disorder with depressed mood (Acute) Impingement syndrome of left shoulder (Acute) Chest discomfort (Acute) Bronchitis (Acute) Asthma (Acute) Pacemaker (Acute) Chronic constipation (Acute) RUQ pain (Acute) Elevated LFTs (Acute) Closed fracture of lateral malleolus with routine healing (Acute) Lateral malleolar fracture (Acute) Closed left ankle fracture (Acute) CKD (chronic kidney disease) (Acute) Peripheral neuropathy (Acute) Congestive heart failure (Acute) Fibula fracture (Acute) GERD (gastroesophageal reflux disease) (Acute ~05/18/23) Anemia (Acute) Chronic restrictive lung disease (Acute) Dyspnea (Acute) Asthma (Acute) Obesity (BMI 30-39.9) (Acute) 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 of 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 (Acute) Dyslipidemia (Acute) Diabetic nephropathy associated with type 2 diabetes mellitus (Acute) Diabetic retinopathy associated with type 2 diabetes mellitus (Acute) Obstructive sleep apnea on CPAP (Acute) Other and unspecified hyperlipidemia (Acute) Essential hypertension (Acute) Type 2 diabetes mellitus with unspecified complications (Acute) Depression (Acute) Diabetes mellitus, type 2 (Acute) Past Medical History Medical History (Updated 09/13/24 @ 15:02 by Kayla Low RN) Sick sinus syndrome CKD (chronic kidney disease) Hx of radiation therapy Arthritis HTN (hypertension) Anemia Chronic restrictive lung disease Dyspnea Asthma Obesity (BMI 30-39.9) 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 of 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 Dyslipidemia Diabetic nephropathy associated with type 2 diabetes mellitus Diabetic retinopathy associated with type 2 diabetes mellitus Obstructive sleep apnea on CPAP Other and unspecified hyperlipidemia Essential hypertension Type 2 diabetes mellitus with unspecified complications GERD (gastroesophageal reflux disease) (~05/18/23) Breast cancer Depression Diabetes mellitus, type 2 Family History Family History Father Diabetes Brother Diabetes Sister Diabetes Mother No known problems Family history of problems with anesthesia: No Surgical History Surgical History (Updated 09/13/24 @ 15:03 by Kayla Low RN) History of liver biopsy Hx of cardiac catheterization Hx of colonoscopy History of esophagogastroduodenoscopy (EGD) History of total abdominal hysterectomy History of cholecystectomy History of shoulder surgery History of 3 sections History of permanent cardiac pacemaker placement History of Problems with Anesthesia: No Social History Social History Household Members: Spouse and Family Housing: Apartment Are you a primary geriatric personal care aide to a significant other at home: No Do you presently have visiting nurse or other home services: Yes (nurse) Alcohol intake: never Patient Tobacco Use Status: Former Tobacco user Tobacco use type: Cigarette Years Smoked: 12 years e-Cigarette/Vaping Use: Former Use Second Hand Smoke Exposure: No Are you DNR?: Yes Advance Directives: No Advance Directives Information Provided: Yes service: No Current occupational status: disabled Sexual orientation: Straight/Heterosexual Meds Allergies Allergy/AdvReac Type Severity Reaction Status Date / Time tramadol (TRAMADOL) Allergy Severe THROAT, Verified 11/11/24 14:49 LIPS SWELLING, latex (LATEX) Allergy Intermediate RASH Verified 11/11/24 14:49 Home Medications ?Medication ?Instructions ?Recorded ?Confirmed ?Last Taken ?Type CPAP (CPAP Machine/Device) 10/13/23 09/25/24 Unknown History nebulizers 10/13/23 09/25/24 Unknown H istory semaglutide 0.25 mg or 0.5 mg (2 2 mg subcut QWEEK 09/25/24 11/15/24 History mg/3 mL) subcutaneous pen injector (Ozempic) amlodipine 10 mg tablet (Norvasc) 10 mg PO DAILY 01/2209/25/24 02/02/24 History atorvastatin 40 mg tablet 40 mg PO DAILY 01/23/2412/1302/02/24 History docusate sodium 100 mg capsule 100 mg PO DAILY PRN Con stipation 01/23/24 09/25/24 Unknown History insulin degludec 200 unit/mL (3 40 unit subcut QNOON 0 01/23/24 09/25/24 Unknown History mL) subcutaneous pen (Tresiba FlexTouch U-200 insulin) esomeprazole magnesium 20 mg mg PO DAILY 07/22/24/12/13 Unknown History capsule,delayed release flash glucose sensor (FreeStyle #1 ea 07/22/24 5 Unknown History Jeovany 2 Sensor kit) ursodiol 500 mg tablet mg PO 07/22/24 09/25/24 Unkn own History Exam Height,Weight and Vital Signs: Height 4 ft 9 in Weight 58.967 kg Narrative Narrative: EKG 2023 NSR @ [address] abn ECHO 2022 LV size nml LV wall thickness nml Overall LV sys function nml with EF 65-70% Diastolic filling pattern nml No evidence of WMA LA size nml RV sys function nml Pacer wire seen in RA and RV Aortic sclerosis without stenosis Trace MR No pulmo htn Assessment and Plan Assessment Anesthesia Assessment: Chart Reviewed Final Anesthetic Review Family History of Problems with Anesthesia: No History of Problems with Anesthesia: No Documented by User: Erlin Cruz MD 11/28/24 10:23 [facility] Past Medical History Medical History (Updated 09/13/24 @ 15:02 by Kayla Low RN) Sick sinus syndrome CKD (chronic kidney disease) Hx of radiation therapy Arthritis HTN (hypertension) Anemia Chronic restrictive lung disease Dyspnea Asthma Obesity (BMI 30-39.9) 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 of insulin Dyslipidemia Diabetic nephropathy associated with type 2 diabetes mellitus Diabetic retinopathy associated with type 2 diabetes mellitus Obstructive sleep apnea on CPAP Other and unspecified hyperlipidemia Essential hypertension Type 2 diabetes mellitus with unspecified complications GERD (gastroesophageal reflux disease) (~05/18/23) Breast cancer Depression Diabetes mellitus, type 2 Family History Family History Father Diabetes Brother Diabetes Sister Diabetes Mother No known problems Surgical History Surgical History (Updated 09/13/24 @ 15:03 by Kayla Low RN) History of liver biopsy Hx of cardiac catheterization Hx of colonoscopy History of esophagogastroduodenoscopy (EGD) History of total abdominal hysterectomy History of cholecystectomy History of shoulder surgery History of 3 sections History of permanent cardiac pacemaker placement Social History Social History Household Members: Spouse and Family Housing: Apartment Are you a primary geriatric personal care aide to a significant other at home: No Do you presently have visiting nurse or other home services: Yes (nurse) Alcohol intake: never Patient Tobacco Use Status: Former Tobacco user Tobacco use type: Cigarette Years Smoked: 12 years e-Cigarette/Vaping Use: Former Use Second Hand Smoke Exposure: No Are you DNR?: Yes Advance Directives: No Advance Directives Information Provided: Yes service: No Current occupational status: disabled Sexual orientation: Straight/Heterosexual Meds Allergies Allergy/AdvReac Type Severity Reaction Status Date / Time tramadol (TRAMADOL) Allergy Severe THROAT, Verified 11/11/24 14:49 LIPS SWELLING, latex (LATEX) Allergy Intermediate RASH Verified 11/11/24 14:49 Home Medications ?Medication ?Instructions ?Recorded ?Confirmed ?Last Taken ?Type CPAP (CPAP Machine/Device) 10/13/23 09/25/24 Unknown History nebulizers 10/13/23 09/25/24 Unknown H istory semaglutide 0.25 mg or 0.5 mg (2 2 mg subcut QWEEK 09/25/24 11/15/24 History mg/3 mL) subcutaneous pen injector (Ozempic) amlodipine 10 mg tablet (Norvasc) 10 mg PO DAILY 01/2209/25/24 02/02/24 History atorvastatin 40 mg tablet 40 mg PO DAILY 01/23/2412/1302/02/24 History docusate sodium 100 mg capsule 100 mg PO DAILY PRN Con stipation 01/23/24 09/25/24 Unknown History insulin degludec 200 unit/mL (3 40 unit subcut QNOON 0 01/23/24 09/25/24 Unknown History mL) subcutaneous pen (Tresiba FlexTouch U-200 insulin) esomeprazole magnesium 20 mg mg PO DAILY 07/22/24 050 12/13 Unknown History capsule,delayed release flash glucose sensor (FreeStyle #1 ea 07/22/24 5 Unknown History Jeovany 2 Sensor kit) ursodiol 500 mg tablet mg PO 07/22/24 09/25/24 Unkn own History Exam Airway Mallampati Class: II TM Dist: <=3cm Neck ROM: Full Denture: Upper and Lower Heart: ok. see above Lungs: ok. Sat 98% on room air. Seeabove. Assessment and Plan Assessment Anesthesia Assessment: Anesthesia Plan Discussed Final Anesthetic Review NPO: Yes ASA Class: III and IV Final Preanesthetic Review: No Changes in Pt Med Stat, Meds/Allgs Chart Reviewed, Consent Obtained/Reviewed, Anes Risks/Benef Reviewed and DNR Form (If Appl.) Patient Risk: High Procedure Risk: Intermediate Anesthetic Plan Anesthetic Plan: Agree w/ Assess. and Plan and TIVA Disposition: Standard PACU
[2024-11-28 09:17] VITALS: BMI 29.5
[2024-11-28 09:34] VITALS: BP 160/35; PULSE 62; RESP 18; TEMP 36.6; O2SAT 98
[2024-11-28] MEDS: Lactated Ringers 1,000 ML 100 ML IVCONT (09:39)
[2024-11-28 09:45] LABS: Glucose, Whole Blood 172 mg/dL (60-115)
--- NOTE | 2024-11-28 10:49 | P.HPSUR_ITS ---
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 Dyslipidemia Diabetic nephropathy associated with type 2 diabetes mellitus Diabetic re) History of Previous Operations: Relevant previous surgery/procedure and date(s) ( History of liver biopsy Hx of cardiac catheterization Hx of colonoscopy History of esophagogastroduodenoscopy (EGD) History of total abdominal hysterectomy History of cholecystectomy History of shoulder surgery History of 3 sections History of permanent cardiac pacemaker placement) Allergies: Allergies Allergy/AdvReac Type Severity Reaction Status Date / Time tramadol (TRAMADOL) Allergy Severe THROAT, Verified 11/11/24 14:49 LIPS SWELLING, latex (LATEX) Allergy Intermediate RASH Verified 11/11/24 14:49 Review of Systems Sugical H&P ROS: Negative: Constitution, Cardiovascular, Respiratory, Neurological, Psychiatric, Hem-Onc, Allergic/Immunologic, Gastrointestinal, Genitourinary, Musculoskeletal, Integumentary, Endocrine and Eyes/Ears/Nose/Throat Exam Surgical H&P Exam: Normal: HEENT, Normal: Heart, Normal: Lungs, Normal: Extremities, Normal: Abdomen, Normal: Skin and Normal: Neurological Plan Diagnosis/Plan: Unchanged I have reviewed the history and physical and performed a pertinent physical examination on my patient. No changes have occurred unless specified. Time Spent With Patient Time: Total time managing care of this patient today ____ minutes.
--- NOTE | 2024-11-28 11:33 | HO.OPN-COLON ---
Colonoscopy Operative Note Operative Note Date of Service: 11/28/24 Narrative: Operative Information Procedure Description: EGD, Colonoscopy Indication: hx of polyps, epigastric pain Anesthesia: MAC FLEXIBLE TRANSORAL UPPER GASTROINTESTINAL ENDOSCOPY AND COLONOSCOPY PROCEDURE NOTE UPPER ENDOSCOPY Consent: Indications for the procedure and potential complications of bleeding, perforation, reaction to medications and missed diagnosis were discussed with the patient and informed consent was obtained. Instrument: Olympus GIF H 190 J mid size upper endoscope Monitoring: Vital signs and clinical assessment, continuous EKG monitoring, Pulse oximetry, Carbon Dioxide monitoring and blood pressure monitoring were done throughout the procedure. Procedure: The patient was placed in the left lateral decubitis position and pre-procedure medications were administered and a bite block was placed. The endoscope was inserted into the mouth and advanced under direct vision to the third part of duodenum. A careful inspection was made as the upper endoscope was withdrawn including a retroflexed examination of the proximal stomach; Findings and interventions are described below. Findings: Larynx:normal Esophagus: GE junction at 40 cm, diaphragm hiatus at 40 cm, normal mucosa Stomach: mild gastritis. Biopsies were obtained. Grade 2 flap valve on retroflexed examination of the cardia. Duodenum: Normal bulb and descending duodenum, bx taken Intervention: Biopsies as noted above, COLONOSCOPY Instrument: Olympus variable stiffness pediatric scope 190L Colonoscopy Monitoring: Vital signs and clinical assessment, continuous EKG monitoring, Pulse oximetry, Carbon Dioxide monitoring and blood pressure monitoring were done throughout the procedure. Colon withdrawal time was 18 minutes. Procedure: The patient was placed in the left lateral decubitis position and pre-procedure medications were administered. After a digital rectal examination of the ano-rectum, the video colonoscope was inserted into the rectum and advanced through the colon to the cecum/TI. The colonoscope was slowly withdrawn in a retrograde panoramic fashion and the colon mucosa was carefully examined including a retroflexed view of the rectum. Findings and interventions are described below. Procedure Difficulty:moderate Findings: Terminal Ileum- unable to intubate due to looping Cecum: melanosis coli Ascending Colon: few diverticula seen and melanosis coli Transverse Colon - normal Descending Colon: x 2 sessile polyp 4-5 mm removed with cold forceps Sigmoid Colon: mild to moderate diverticulosis, x 2 sessile polyps 8-10 mm removed with cold snare Rectum: Retroflexion with small to medium sized internal hemorrhoids, grade I Anorectum - normal Colon preparation: [place] Bowel Preparation Scale Right colon; 2 Transverse colon: 2 Left colon; 2 (0 = Unprepared colon segment with mucosa not seen due to solid stool that cannot be cleared. 1 = Portion of mucosa of the colon segment seen, but other areas of the colon segment not well seen due to staining, residual stool and/or opaque liquid. 2 = Minor amount of residual staining, small fragments of stool and/or opaque liquid, but mucosa of colon segment seen well. 3 = Entire mucosa of colon segment seen well with no residual staining, small fragments of stool or opaque liquid) Impression and Post Procedure Diagnosis: Endoscopy Findings: gastritis Colonoscopy Findings: diverticulosis colon polyps internal hemorrhoids Plan: Await Pathology results Repeat Colonoscopy in 3 years or earlier if clinically indicated High fiber diet leaflet avoid straining at stool, epsom salts and sitz bath, anusol supps or cream if bx neg then consider GES Above findings were reviewed with the patient and relevant handouts were provided if indicated.
[2024-11-28 11:39] VITALS: BP 116/43; PULSE 60; RESP 18; TEMP 37.6; O2SAT 96
[2024-11-28 11:51] VITALS: BP 137/46; PULSE 60; RESP 18; O2SAT 96
[2024-11-28 11:56] VITALS: BP 145/46; PULSE 60; RESP 16; TEMP 36.9; O2SAT 97
== END 2024-11-28 12:37 | disposition home or self-care (01) ==
PROVIDERS: PCP Internal Medicine; Visit Provider Internal Medicine Gastroenterology
PROC: (CPT 43239; principal; 2024-11-28 13:00)
DX: K56.2 Volvulus (principal); K63.89 Other specified diseases of intestine; K57.30 Diverticulosis of large intestine without perforation or abscess without bleeding; K64.0 First degree hemorrhoids; Z86.0101 Personal history of adenomatous and serrated colon polyps; R10.13 Epigastric pain; D64.9 Anemia, unspecified; K29.60 Other gastritis without bleeding; E11.22 Type 2 diabetes mellitus with diabetic chronic kidney disease; I13.0 Hypertensive heart and chronic kidney disease with heart failure and stage 1 through stage 4 chronic kidney disease, or unspecified chronic kidney disease; N18.9 Chronic kidney disease, unspecified; I50.9 Heart failure, unspecified; E78.5 Hyperlipidemia, unspecified; G47.33 Obstructive sleep apnea (adult) (pediatric); J45.909 Unspecified asthma, uncomplicated; R06.02 Shortness of breath; Z85.3 Personal history of malignant neoplasm of breast; Z87.891 Personal history of nicotine dependence; Z99.89 Dependence on other enabling machines and devices; Z79.4 Long term (current) use of insulin; Z79.899 Other long term (current) drug therapy; Z79.82 Long term (current) use of aspirin; Z79.02 Long term (current) use of antithrombotics/antiplatelets
CPT/HCPCS: 43239; 45385; 45380; 82947; 88305; 88313; 88342; J2003; J2704

== ENCOUNTER → 2024-11-28 08:19 | Outpatient (BNV) | payer OTHER, SELFPAY | PROVIDERS: PCP Internal Medicine; Visit Provider Internal Medicine Gastroenterology | DX: K29.70 Gastritis, unspecified, without bleeding (principal); K63.5 Polyp of colon; K57.90 Diverticulosis of intestine, part unspecified, without perforation or abscess without bleeding; K64.8 Other hemorrhoids; Z86.0100 Personal history of colon polyps, unspecified | CPT/HCPCS: 43239; 45380; 45385 ==

== ENCOUNTER 2025-01-02 07:35 | Outpatient (AMB) | payer OTHER, SELFPAY ==
--- OUTSIDE RECORDS SUMMARY | 2025-01-02 07:39 | XMS_ITS | Encounter Summary ---
Author Organization [employer] Address [address] [facility] [address] [place] [address] Care Team Providers Care Sap Portal Consultant Name Role Phone Angela Luz MD Primary Care Provide r Ninfa Dietrich PharmD Unavailable [phone] Encounter Details Date Type Department Care Team ([facility] st Contact Info) Description 03/26/2024 Orders Only [facility] [address], [place] [phone] Angela Luz MD [address], [place] [phone] Social History Tobacco Use Types Packs/Day Years [...] Care Team (Late st Contact Info) Description 02/17/2025 9:30 AM EDT Medication Management [address] [address] Ninfa Dietrich, PharmD [address] [place] [id number] 02/19/2025 9:00 AM EDT Clinical Support [address] [address] Nazia Martins, RN documented as of this encounter Goals Goal Patient Goal Type Associated Problems Recent Progress Patient-Stated? Author Blood Pressure < 140/90 Blood Pressure 120/40(2024 9:33 AM EDT) No Ady Araujo Hemoglobin A1c < 8 Result Component 7.1( 10:02 AM EDT) No Ady Araujo Note: Comorbidities: CHF, CKD, cirrhosis documented as of this encounter Visit Diagnoses Not on filedocumented in this encounter Care Teams Sap Portal Consultant Relationship Specialty Start Date End Date Angela Luz MD [address] [place] [phone] PCP - General Family Medicine 10/27/20 Ninfa Dietrich, Shadia [address] [place] [phone] Pharmacist Internal Medicine 11/10/23 Fiber Options 12/20/23 documented as of this encounter
--- OUTSIDE RECORDS SUMMARY | 2025-01-02 07:39 | XMS_ITS | Clinical Summary ---
Author Organization [facility] Address [address] [place] [address] Phone Care Team Providers Care Primary Therapist Name Role Phone Angela Luz MD [...] BY MOUTH EVERY EVENING 30 tablet 11 08/23/19 25 Active Encounters Date Type Department Care Team Description 11/25/2024 9:00 AM EDT Office Visit [facility] Hematology Oncology [address] [place] [address] Nabeel March MD Invasive ductal carcinoma of right breast (CMS/HCC V24, CMS/HCC V28) (Primary Dx) from Last 3 Months Immunizations Name Administration Dates Next Due COVID-19 (Pfizer/Comirnaty) 12yo and older 06/28/2023 Encentuate SARS-CoV-2 COVID-19, mRNA, LNP-S, preservative free 06/10/2022,10/07/2021,03/02/2021,2020,07/02/2020 [...] due to type 2 di abetes mellitus ([facility] V24, [facility] V28) DX:CKD stage 3 due to type 2 diabetes mellitus ([facility]) Insomnia DX:Insomnia Chronic shoulder pain DX:Chronic shoulder pain Type 2 diabetes mellitus wit h diabetic neuropathy ([facility] V24, [facility] V28) DX:Type 2 diabet es mellitus with diabetic neuropathy ([facility]) Heel pain DX:Heel pain Venous insufficiency DX:Venous i nsufficiency HTN, goal below 140/80 DX:HTN, g oal below 140/80 Vitamin B12 deficiency anemia DX :Vitamin B12 deficiency anemia Allergic rhinitis DX:Allergic rh initis Solitary pulmonary nodule DX:Alisa itary pulmonary nodule Nonproliferative diabetic re tinopathy associated with type 2 diabetes mellitus ([facility] V24, [facility] V28) DX:Nonproliferative diabeti c retinopathy associated with type 2 diabetes mellitus ([facility]) Mild obstructive sleep apnea DX: Mild obstructive sleep apnea RLS (restless legs syndrome) DX: RLS (restless legs syndrome) Anemia DX:Anemia PAD (peripheral artery disea se) ([facility] V24) DX:PAD (peripheral artery di sease) ([facility]) Hyperlipidemia DX:Hyperlipidemi a Essential hypertension, benign D X:Essential hypertension, benign Glaucoma DX:Glaucoma DM (diabetes mellitus) type II controlled, neurological manifestation ([facility] V24, [facility] V28) DX:DM (diabetes mellitus) ty pe II controlled, neurological manifestation ([facility]) Breast cancer ([facility] V24, [facility] V28) Social History Tobacco Use Types Packs/Day [...] Sign Reading Time Taken Comments Blood Pressure 156/57 11/25/2024 9:04 AM EDT Pulse 60 11/25/2024 9:04 AM EDT Temperature 36.7 C (98 F) 11/25/2024 9:04 AM EDT Respiratory Rate - - Oxygen Saturation 100% 11/25/2024 9:04 AM EDT Inhaled Oxygen Concentration - - Weight 61.7 kg (136 lb) 11/25/2024 9:04 AM EDT Height 144.8 cm (4' 9 ) 11/25/2024 9:04 AM EDT Body Mass Index 29.43 11/25/2024 9:04 AM EDT Plan of Treatment Upcoming Encounters Date Type Department Care Team (Late st Contact Info) Description 11/25/2025 8:30 AM EDT Office Visit [facility] Hematology Oncology [address] [place] [phone] Nabeel March MD [address] [place] [address] Health Maintenance Due Date Last Done Comments Diabetes: Annual Foot Exam 1965 Diabetes: Annual Retina Eye Exam 1965 Colorectal Cancer Screening: Colonoscopy 04/28/2022 Falls Risk Assessment 04/28/2022 Medicare Annual Wellness Visit 04/28/2022 Social Influencers of Health Screening 04/28/2022 Depression Screening 05/22/2024 COVID-19 Vaccine (9 - Pfizer risk season) 2024 03/26/2024, 06/28/2023, 06/10/2022, Additional history exists Influenza Vaccine (#1) 2025 , 03/30/2023, 02/26/2021, Additional history exists Diabetes: Blood Sugar Control Test (HGBA1C) 03/23/2025 09/20/2024, 03/26/2024, 03/29/2021 Diabetes: Annual GFR (Glomerular Filtration Rate) 07/30/2025 07/30/2024, 01/23/2024, 01/13/2022 Hypertension/CHF/CAD Annual BMP Blood Test 07/30/2025 07/30/2024, 01/23/2024, 01/13/2022 Diabetes: Annual Urine Albumin-Creatinine Ratio (uACR) 10/18/2025 10/18/2024, 12/27/2023, 10/07/2022 Breast Cancer Screening 04/19/2026 04/19/20 24, 04/17/2023, 06/03/2019, Additional history exists Cholesterol Screening (Lipid Panel) 07/30/2029 07/30/2024, 05/23/2023, 05/23/2023 DTaP,Tdap,and Td Vaccines (4 - [...] Hepatitis B Vaccines Completed 12/11/2023, 12/07/2023, 08/21/2023 HIB Vaccines Aged Out No longer eligi [...] or alter the indications for biopsy. ASSESSMENT: BI-RADS 2: BENIGN RECOMMENDATION(S): 1: Routine screening mammogram BILATERAL in 1 year. -------- FINAL REPORT -------- Dictated By: Raymon Pruitt Dictated Date: 04/19/2024 14:04 ET Assigned Physician: Raymon Pruitt Reviewed and Electronically Signed By: Raymon Pruitt Signed Date: 04/19/2024 14:13 ET Workstation ID: [id number] Transcribed By: Self Edit Transcribed Date: 04/19/2024 14:04 ET Narrative 04/19/2024 2:13 PM EST EXAM: SCREENING MAMMOGRAPHY, BILATERAL HISTORY: SCREENING. Personal history of breast cancer. Prior right lumpectomy COMPARISON: 04/17/2023, 04/08/2022, 03/08/2021, 03/06/2020 TECHNIQUE: Synthesized CC and MLO projections of each breast. Tomosynthesis of each breast in the CC and MLO projections. ADDITIONAL IMAGING: Craniocaudal view of the right breast exaggerated toward the axilla using Tomosynthesis Computer-aided detection was employed with the Tourjive profound AI 3-D. TISSUE DENSITY: The breasts are heterogeneously dense, which may obscure small masses. (BI-RADS category C) FINDINGS: RIGHT BREAST: The right breast is smaller than the left. There is skin retraction. There is architectural distortion. There are surgical clips. There is evolving calcified fat necrosis surrounding an oil cyst. No additional suspicious right breast findings LEFT BREAST: No suspicious mass. No new suspicious calcification. No distortion. No suspicious change in some regional punctate calcifications in the upper outer left breast. These should be monitored at [...] Tomosynthesis Computer-aided detection was employed with the Tourjive profound AI 3-D. TISSUE DENSITY: The breasts [...] Signed Date: 04/19/2024 14:13 ET Workstation ID: [id number] Transcribed By: Self Edit Transcribed Date: 04/19/2024 14:04 ET us Angela Haley MD IMG BI PROCEDURES Fin al Result * BD Bone Density DXA Axial Skeleton (04/19/2024 9:31 AM EST) Anatomical Region Laterality Modality Wrist, Hip, L-spine Bone Densito metry 04/19/2024 9:53 AM EST Impressions 04/19/2024 9:54 AM EST 1. Osteopenia. There has been an increase of 6.6% in bone mineral density in the lumbar spine since the prior examination of 01/21/2022. There has been a decrease of 3.1% in bone mineral density in the right femur and a decrease of 10.4% in bone mineral density in the left femur. 2. FRAX analysis yields a 10-year probability of major osteoporotic fracture of 17.4% and a 10-year probability of hip fracture of 4.0%. Code 72441 -------- FINAL REPORT -------- Dictated By: Joby Brand Dictated Date: 04/19/2024 09:53 ET Assigned Physician: Joby Brand Reviewed and Electronically Signed By: Joby Brand Signed Date: 04/19/2024 09:54 ET Workstation ID: [id number] Transcribed By: Self Edit Transcribed Date: 04/19/2024 09:53 ET Narrative 04/19/2024 9:54 AM EST HISTORY: The patient is a 68-year-old postmenopausal female with clinical concern for metabolic bone disease. FINDINGS: Dual energy x-ray absorptiometry of the lumbar spine and femurs is performed. The mean bone mineral density at L1-L4 is 1.083 gm/cm2 which is 92% of that of young normals and 107% of that of age matched controls. This yields a T-score of -0.8 and a Z-score of 0.6 and there is therefore no evidence of osteoporosis or osteopenia here. The mean bone mineral density of the femurs bilaterally is 0.907 gm/cm2 which is 90% of that of young normals and 107% of that of age matched controls. This yields a T-score of -0.8 and [...] density of the femurs bilaterally is 0.907 gm/le2vrfbk is 90% of that of young normals [...] probability of hip fracture of 4.0%. Code 50748 -------- FINAL REPORT -------- Dictated By: Joby Brand Dictated Date: 04/19/2024 09:53 ET Assigned Physician: Joby Brand Reviewed and Electronically Signed By: Joby Brand Signed Date: 04/19/2024 09:54 ET Workstation ID: [id number] Transcribed By: Self Edit Transcribed Date: 04/19/2024 09:53 ET Result [facility] Nabeel March MD IMG DXA PROCEDURES Final Res ult * Lipid panel (05/23/2023) [facility] Triglycerides 0 mg/dL Comment:No interpretation Cholesterol 0 mg/dL Comment:No interpretation HDL 0 mg/dL Comment:No interpretation LDL Cholesterol 0 mg/dL Comment:No interpretation Blood Venous blood specimen / Unknown Result [facility] LAB BLOOD ORDERABLES Ruthy l Result * Urine Albumin Creatinine Ratio (10/07/2022) [facility] Urine Albumin Creatinine Ratio Abstracted Result [facility] HEALTH MAINTENANCE Final Result * Annual BMP Blood Test (01/13/2022) [facility] Annual BMP Blood Test Abstracted Result [facility] HEALTH MAINTENANCE Final Result * Hepatitis C Screening (11/17/2021) [facility] Hepatitis C Screening Abstracted Result [facility] HEALTH MAINTENANCE Final Result * Hemoglobin A1c (03/29/2021) [facility] Hemoglobin A1C 0.0 % Comment:No interpretation Blood Venous blood specimen / Unknown Result [facility] Provider LAB BLOOD ORDERABLES Ruthy l Result from Last 3 Months or Most Recently Relevant to Health Maintenance Insurance [facility] MEDICARE Member Subscriber Plan / Payer (Ef fective 2023-Present) Name:Angela Cullen Relation to Subscriber:Self Name:Angela Dominguez Payer ID:[id number] Group ID:[id number] Type:Not on file Address: [place] [address] [address] [address] Care Teams Primary Therapist Relationship Specialty Start Date End Date Angela Luz MD [address] [place] [address] PCP - General Internal Medicine 01/28/21
--- NOTE | 2025-01-02 08:32 | MHC.OFFVIS ---
Vital Signs 01/02/25 08:33 Height 4 ft 9 in Intake Visit Reasons: OV LT shoulder 02/02/24 , last inj 09/25/24 Intake Note: Angela is a 69 year old female who presents with complaints of pain along the lateral aspect of her left shoulder. She did undergo left shoulder arthroscopic surgery on 02/02/2024. At her last visit she was given a cortisone injection into her left shoulder. She states that she got fairly good relief from that injection. She denies any weakness. She continues with her home stretching program. Allergies tramadol (TRAMADOL) Allergy (Severe, Verified 01/02/25 08:32) THROAT, LIPS SWELLING, latex (LATEX) Allergy (Intermediate, Verified 01/02/25 08:32) RASH Medication List - Last Reconciled 01/02/25 by Gato Dhaliwal MD albuterol sulfate 90 mcg/actuation 2 puffs inhalation Q6H PRN albuterol sulfate 1 mg (1.2 mL) inhalation TID 30 days amlodipine (Norvasc) 10 mg PO DAILY anastrozole 1 tab PO DAILY 30 days aspirin 1 tab PO DAILY 30 days atorvastatin 40 mg PO DAILY CPAP (CPAP Machine/Device) As directed dapagliflozin propanediol (Farxiga) 10 mg PO DAILY 30 days docusate sodium 100 mg PO DAILY PRN doxepin 10 mg PO BEDTIME PRN 30 days esomeprazole magnesium mg PO DAILY flash glucose sensor (FreeStyle Jeovany 2 Sensor kit) As directed insulin aspart U-100 (Novolog FlexPen U-100 Insulin aspart) INJECT 30 UNITS SUBCUTANEOUSLY BEFORE BREAKFAST AND BEFORE LUNCH AND INJECT 40 UNITS SUBCUTANEOUSLY BEFORE SUPPER 30 days insulin degludec (Tresiba FlexTouch U-200 insulin) 40 units subcut QNOON losartan 25 mg PO DAILY 30 days mirtazapine 15 mg PO BEDTIME 30 days montelukast 10 mg PO BEDTIME naloxegol (Movantik) 12.5 mg PO QAM nebulizers As directed plecanatide (Trulance) 3 mg PO DAILY semaglutide (Ozempic) 2 mg subcut QWEEK sertraline 100 mg PO DAILY 30 days sodium,potassium,mag sulfates 17.5-3.13-1.6 gram (Suprep Bowel Prep Kit) DILUTE each bottle with 16oz of water; drink first bottle 5pm evening before procedure AND second bottle at 11pm; follow each bottle with at least 32 oz.of water within 1 hour after each bottle torsemide 40 mg (2 x 20 mg) PO DAILY 30 days Trelegy Ellipta 200-62.5-25 mcg (tbnlyafnrjl-dixjmtrnh-ndakedjn) 1 ea inhalation DAILY NS ursodiol mg PO PFSH Medical History (Updated 09/13/24 @ 15:02 by Kayla Low RN) Sick sinus syndrome CKD (chronic kidney disease) Hx of radiation therapy Arthritis HTN (hypertension) Anemia Chronic restrictive lung disease Dyspnea Asthma 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 (BMI 30-39.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 Dyslipidemia Diabetic nephropathy associated with type 2 diabetes mellitus Diabetic retinopathy associated with type 2 diabetes mellitus Obstructive sleep apnea on CPAP Other and unspecified hyperlipidemia Essential hypertension Type 2 diabetes mellitus with unspecified complications GERD (gastroesophageal reflux disease) (~05/18/23) Breast cancer Depression Diabetes mellitus, type 2 Surgical History (Updated 09/13/24 @ 15:03 by Kayla Low RN) History of liver biopsy Hx of cardiac catheterization Hx of colonoscopy History of esophagogastroduodenoscopy (EGD) History of total abdominal hysterectomy History of cholecystectomy History of shoulder surgery History of 3 sections History of permanent cardiac pacemaker placement Family History Father Diabetes Brother Diabetes Sister Diabetes Mother No known problems Social History Household Members: Spouse and Family Housing: Apartment Are you a primary caretaker to a significant other at home: No Do you presently have visiting nurse or other home services: Yes (nurse) Alcohol intake: never Patient Tobacco Use Status: Former Tobacco user Tobacco use type: Cigarette Years Smoked: 12 years e-Cigarette/Vaping Use: Former Use Second Hand Smoke Exposure: No service: No Current occupational status: disabled Sexual orientation: Straight/Heterosexual Physical Exam Const Other: Well-nourished well-developed very friendly female awake alert and oriented x3 in no acute distress Extrem Other: Bilateral upper extremity examination shows good capillary refill, no skin lesions noted, normal sensation light touch Left shoulder examination shows that the surgical incisions are well healed, no erythema, almost full range of motion when compared to her right shoulder, mild discomfort with resisted forward flexion, 5/5 strength with supraspinatus testing, no instability Office Procedures AMB Joint Injection/Aspiration Joint Injection/Aspiration Primary Site: left shoulder Prep: site was prepped using aseptic technique Injected: 40 mg of, DepoMedrol and 1% plain lidocaine Procedure: The patient tolerated the procedure well Coding - Large joint Procedure code (CPT) selection complete Assessment & Plan Assessment & Plan (1) Impingement syndrome of left shoulder: Code(s): M75.42 - Impingement syndrome of left shoulder Category: Medical Plan Angela presents with left shoulder pain due to impingement syndrome. The risks and benefits of a left shoulder cortisone injection were discussed at length with the patient. The patient wished to proceed. She tolerated the injection well. She will continue with her home stretching program. She will follow up on an as-needed basis should her symptoms not plateau at an unacceptable level over the next few months. Feel free to call me at any time should questions regarding her orthopedic management arise. I spent 22 minutes in reviewing the patient's records and imaging studies, seeing the patient and documenting in the medical record. Orders: Orders AMB Joint Injection/Aspiration Today M75.42 - Impingement syndrome of left shoulder Coding Level of Care Code Est Pt Level 3 (39233) Complex EM visit Add On G2211 Diagnoses Impingement syndrome of left shoulder M75.42 CPT Codes Coding - 56594 Large joint: 44325 - Large joint ([id number])
== END 2025-01-02 08:44 | disposition home or self-care (01) ==
LOC: HO.HOS 07:36
PROVIDERS: PCP Internal Medicine; Visit Provider Orthopaedic Surgery
DX: M75.42 Impingement syndrome of left shoulder (principal)
CPT/HCPCS: 20610; 99213

== ENCOUNTER → 2025-01-02 07:35 | Outpatient (BNVA) | payer OTHER, SELFPAY | PROVIDERS: PCP Internal Medicine; Visit Provider Orthopaedic Surgery | DX: M25.512 Pain in left shoulder (principal); M75.42 Impingement syndrome of left shoulder | CPT/HCPCS: 20610; 99212; J1010; J2003 ==

== ENCOUNTER 2025-02-10 12:04 | Outpatient (REF) | payer OTHER, SELFPAY ==
[2025-02-10 12:56] LABS: MANUAL DIFF FLAG NO
[2025-02-10 13:29] LABS: Hematocrit 34.9 % (37.0-47.0); Hemoglobin 11.8 g/dl (12.0-16.0); Imm Gran Abs Auto 0.07 X10*3/uL (0.00-0.03); Imm Gran Pct Auto 0.9 % (0.0-0.4); Lymphocytes Absolute Auto 1.7 X10*3/uL (1.2-4.9); Mean Corpuscular HGB Conc 33.8 g/dl (31.0-35.0); Mean Corpuscular Hemoglobin 28.2 pg (27.0-33.0); Mean Corpuscular Volume 83.5 fL (80.0-98.0); NRBC Abs Auto 0.000 X10*3/uL (0.0-0.012); NRBC Pct Auto 0.0 /100WBC (0.0-0.2); Platelet Count 180 X10*3/uL (160-400); Red Blood Count 4.18 X10*6/uL (4.20-5.50); White Blood Count 7.4 X10*3/uL (4.8-10.8)
[2025-02-10 13:33] LABS: INTERNATIONAL NORM RATIO 1.1 (0.9-1.1); Prothrombin Time 12.5 SEC (10.9-12.4)
[2025-02-10 14:18] LABS: Alanine Aminotransferase 28 U/L (0-31); Albumin Level 4.3 g/dL (3.5-5.0); Alkaline Phosphatase 142 U/L (39-117); Anion Gap 13 (12-20); Aspartate Amino Transferase 36 U/L (5-31); Blood Urea Nitrogen 27 mg/dL (9-16); Calcium 9.8 mg/dL (8.4-10.2); Carbon Dioxide 27 mmol/L (22-29); Chloride 103 mmol/L (96-108); Estimated Glomerular Filt Rate 31; Potassium 3.9 mmol/L (3.3-5.1); Sodium 139 mmol/L (135-145); Total Protein 7.7 g/dL (6.5-8.0)
== END 2025-02-10 12:05 | disposition home or self-care (01) ==
LOC: HO.LAB 12:04
PROVIDERS: PCP Internal Medicine; Visit Provider Internal Medicine Gastroenterology
DX: K74.60 Unspecified cirrhosis of liver (principal); R79.89 Other specified abnormal findings of blood chemistry
CPT/HCPCS: 36415; 80053; 85025; 85610; 99212

== ENCOUNTER 2025-02-10 12:04 | Outpatient (AMB) | payer OTHER, SELFPAY ==
--- NOTE | 2025-02-10 12:07 | MHC.OFFVIS ---
Vital Signs 02/10/25 12:13 Height 4 ft 8 in Weight 134 lb BMI 30.0 BP 135/64 Blood Pressure Location Lt brachial Position Sitting Pulse 60 Pulse Oximetry (%) 95 Oxygen Delivery Method Room Air Intake Visit Reasons: 4 month f/u Intake Note: Patient follow up for Diverticulosis of intestine Patient cc: diarrhea, abdominal pain with bloating, acid reflux med is helping, and poor appetite. 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 Accompanied by: Family/Other Allergies tramadol (TRAMADOL) Allergy (Severe, Verified 02/10/25 12:06) THROAT, LIPS SWELLING, latex (LATEX) Allergy (Intermediate, Verified 02/10/25 12:06) RASH HPI HPI 4 month f/u: Details: 69 yr old f with Dm, depression, Pranav, CKD, CHF and neuropathy here for f/u RECAP She was seen by [facility] for assessment of anemia and abn LFT She had EGD, colonoscopy 02/10 with gastritis, esophagitis, polyps, melanosis coli, hemorrhoids and diverticulosis noted, no active bleeding anemia thought to be ACD and due to CKD she had her GB removed about 12 yrs ago path with serrated and adenomatous polyps LABS with stable HGB around 10 g/dl for several readings. AST, ALT, Alk p elevated US 11/2021- with coarse liver architecture and increased elastography consistent with portal hypertension US 05/13-- cirrhosis, no masses or tumour GI series: 06/14 1. Mild esophageal dysmotility 2. Small type I hiatal hernia 3. Mild to moderate gastroesophageal reflux. 4. Possible gastritis liver bx: Chronic hepatitis with moderate inflammation (grade 3), mild steatosis, and stage 3-4 fibrosis/early cirrhosis - US 01/12- small right kidney stone, possibel fatty liver, F0-1 by elastography US: 08/13; cirrhosis EGD/colo 12/13: Endoscopy Findings: gastritis Colonoscopy Findings: diverticulosis colon polyps internal hemorrhoids Path: tubualr adenomas, melanosis coli INTERIM: she is taking the urosdiol no blood in stool no melena appetite is good no nausea or vomiting breathing is ok ongoing upper and right sided pain, can be worse with standing or sitting also with dinner or water EXAM: GENERAL: The patient is well developed and nontoxic-obese. VITAL SIGNS:see workflow HEENT: Nonicteric sclerae, PERRLA, EOMI. Oropharynx clear. Moist mucous membranes. Conjunctivae appear well perfused. No thyroid mass. CHEST: Chest wall is nontender. HEART: Regular rate and rhythm without murmurs. LUNGS: Clear to auscultation bilaterally. ABDOMEN: Soft, positive bowel sounds, tender epigastrium, no organomegaly.no flank tenderness SKIN: No rash, no excessive bruising, petechiae, or purpura. NEUROLOGIC: Cranial nerves II-XII intact without motor/sensory deficit. Psych: nml affect tender mid spine and reproduces pain in the side of her abdomen, some kyphosis noted A/P: 1/ Anemia, chronic disease, stable HGB, may also be due to portal hypertension and CKD 2/ abn LFt, with stage 3 inflammation and F3/4, lymphoplasmacytic infiltrate, prob ERA neg AIH--last LFT were normal 3/ referred pain, spinal PLAN: 1/ US liver for HCC screening q6 months--ordered now 2/ cont urosdiol 3/ offered PT or pain mx referral, declines at this time, 4/ recheck labs today--if LFT high then steroids vs imuran PFSH Medical History (Updated 09/13/24 @ 15:02 by Kayla Low, RN) Sick sinus syndrome CKD (chronic kidney disease) Hx of radiation therapy Arthritis HTN (hypertension) Anemia Chronic restrictive lung disease Dyspnea Asthma Obesity (BMI 30-39.9) skilled nursing (current) use of insulin Dyslipidemia Diabetic nephropathy associated with type 2 diabetes mellitus Diabetic retinopathy associated with type 2 diabetes mellitus Obstructive sleep apnea on CPAP Other and unspecified hyperlipidemia Essential hypertension Type 2 diabetes mellitus with unspecified complications GERD (gastroesophageal reflux disease) (~05/18/23) Breast cancer Depression Diabetes mellitus, type 2 Surgical History History of liver biopsy Hx of cardiac catheterization Hx of colonoscopy History of esophagogastroduodenoscopy (EGD) History of total abdominal hysterectomy History of cholecystectomy History of shoulder surgery History of 3 sections History of permanent cardiac pacemaker placement Family History Father Diabetes Brother Diabetes Sister Diabetes Mother No known problems Social History Household Members: Spouse and Family Housing: Apartment Are you a primary home care attendant to a significant other at home: No Do you presently have visiting nurse or other home services: Yes (nurse) Alcohol intake: never Patient Tobacco Use Status: Former Tobacco user Tobacco use type: Cigarette Years Smoked: 12 years e-Cigarette/Vaping Use: Former Use Second Hand Smoke Exposure: No service: No Current occupational status: disabled Sexual orientation: Straight/Heterosexual Physical Exam Vital Signs: Last Vital Signs Pulse 60 02/10/25 12:13 BP 135/64 02/10/25 12:13 Pulse Ox 95 02/10/25 12:13 Oxygen Delivery Method Room Air 02/10/25 12:13 BMI result Body Mass Index 30.0 Assessment & Plan Assessment & Plan (1) Elevated LFTs: Comment: labs- Code(s): R79.89 - Other specified abnormal findings of blood chemistry Category: Medical Plan: as above Orders: Orders Comprehensive Met. Panel Today K75.81 - Nonalcoholic steatohepatitis (TOMLINSON), R79.89 - Other specified abnormal findings of blood chemistry US abdomen milan w elastography Today K74.60 - Unspecified cirrhosis of liver, K75.81 - Nonalcoholic steatohepatitis (TOMLINSON), R79.89 - Other specified abnormal findings of blood chemistry Complete Blood Count Auto Diff Today R79.89 - Other specified abnormal findings of blood chemistry Prothrombin Time INR Today R79.89 - Other specified abnormal findings of blood chemistry Coding Level of Care Code Est Pt Level 3 (31584) Diagnoses Elevated LFTs R79.89
[2025-02-10 12:13] VITALS: BP 135/64; PULSE 60; O2SAT 95
--- OUTSIDE RECORDS SUMMARY | 2025-02-10 14:47 | XMS_ITS ---
Encounter Summary Created on: February 10, 2025
== END 2025-02-10 12:35 | disposition home or self-care (01) ==
LOC: HO.HGI 12:05
PROVIDERS: PCP Internal Medicine; Visit Provider Internal Medicine Gastroenterology
DX: R79.89 Other specified abnormal findings of blood chemistry (principal)
CPT/HCPCS: 99213

== ENCOUNTER 2025-04-23 08:22 | Outpatient (AMB) | payer OTHER, SELFPAY ==
--- OUTSIDE RECORDS SUMMARY | 2025-04-21 08:50 | XMS_ITS | Encounter Summary ---
Author Organization [employer] Address [address] [place] [address] Care Team Providers Care Cruller Maker Name Role Phone Angela Luz MD Primary Care Provide r Reason for Referral * Imaging (Routine) - Authorized Specialty Diagnoses / Procedures Referred By Contac t Referred To Contact Radiology Diagnoses Encounter for screening mammogram for breast cancer Procedures MG Mammo Digital Screening w Randell bilat Sppl, Self Referral [facility] Referral ID Status Reason Start Date Expiration Date V isits Requested Visits Authorized [id number] Authorized 03/11/2025 03/11/2026 1 1 * Imaging (Routine) - Authorized Specialty Diagnoses / Procedures Referred By Contac t Referred To Contact Radiology Diagnoses Encounter for screening mammogram for breast cancer Procedures MG Mammo Digital Screening w Randell bilat Sppl, Self Referral [facility] Referral ID Status Reason Start Date Expiration Date V isits Requested Visits Authorized [id number] Authorized 03/11/2025 03/11/2026 1 1 Reason for Visit * Imaging (Routine) - Authorized Specialty Diagnoses / Procedures Referred By Contac t Referred To Contact Radiology Diagnoses Encounter for screening mammogram for breast cancer Procedures MG Mammo Digital Screening w Randell bilat Sppl, Self Referral [facility] Referral ID Status Reason Start Date Expiration Date V isits Requested Visits Authorized [id number] Authorized 03/11/2025 03/11/2026 1 1 Encounter Details Date Type Department Care Team (Latest Contact Info) Description 04/21/2025 8:50 AM EST - 04/21/2025 11:59 PM EST Hospital [facility] [address] [address] Encounter for screening mammogram for breast cancer Discharge Disposition: Home or Self Care Social History Tobacco Use Types Packs/Day Years Used Date Smoking Tobacco: Former Smokeless Tobacco: Never Alcohol Use Standard Drinks/Week Comments No 0 (1 standard drink = 0.6 oz pur e alcohol) Comments No Sex and Gender Information Value Date Recorded Sex Assigned at Female 03/11/2025 10:51 AM EDT Legal Sex Female 4:36 AM EST Gender Identity Female 03/11/2025 10:51 AM EDT Sexual Orientation Straight 03/11/2025 10 :51 AM EDT documented as of this encounter Medications at Time of Discharge acetaminophen (TYLENOL 8 HOUR) 650 mg 8 hr tablet Take 1 tablet (650 mg total) by mouth every 8 hours as needed. albuterol 2.5 mg /3 mL (0.083 %) nebulizer solution Take 3 mL (2.5 mg total) by nebulization every 6 (six) hours as needed for wheezing. albuterol sulfate 90 mcg/actuation aerosol powdr breath activated Inhale into the lungs. amLODIPine (NORVASC) 10 mg tablet Take 1 tablet (10 mg total) by mouth 1 (one) time each day. ammonium lactate (AmLactin) 12 % lotion Apply topically if needed for dry skin. 400 g 2 03/26/2025 03/26/20 26 anastrozole (ARIMIDEX) 1 mg TAKE 1 TABLET BY MOUTH EVERY EVENING 30 tablet 11 08/22/2024 ascorbic acid (VITAMIN C) 250 mg tablet Take 2 tablets (500 mg total) by mouth daily. aspirin 81 mg EC tablet Take 1 tablet (81 mg total) by mouth 1 (one) time each day. atorvastatin (LIPITOR) 40 mg tablet Take 1 tablet (40 mg total) by mouth 1 (one) time each day. azelastine (ASTELIN) 137 mcg (0.1 %) nasal spray spray or apply 1 spray inside Nose 2 (two) times a day. Use in each nostril as directed blood-glucose meter misc by Does not apply route. carvediloL (COREG) 6.25 mg tablet Take by mouth 2 (two) times a day with meals. clotrimazole (LOTRIMIN) 1 % cream Apply topically 2 (two) times a day. cyanocobalamin (VITAMIN B-12) 500 mcg tablet Take 1,000 mcg by mouth daily. dapagliflozin propanediol (Farxiga) 5 mg tablet Take by mouth. diphenhydrAMINE (BENADRYL) 25 mg capsule Take 1 capsule (25 mg total) by mouth Every 4 hours as needed. docusate sodium (COLACE) 100 mg capsule Take 1 capsule (100 mg total) by mouth 2 (two) times a day. doxepin (SINEquan) 10 mg capsule Take 1 capsule (10 mg total) by mouth every night at bedtime. esomeprazole (NexIUM) [address] capsule Take 1 capsule (20 mg total) by mouth every morning before breakfast. fluticasone-umec lidinium-vilante rol (TRELEGY ELLIPTA) 200-62.5-25 mcg inhaler Inhale into the lungs. FREESTYLE LANCETS MISC 1 each by Other route as needed for other. Use as instructed gabapentin (Neurontin) 100 mg capsule Take 1 capsule (100 mg total) by mouth 3 (three) times a day. 90 each 2 03/26/2025 06/24/19 26 gabapentin (NEURONTIN) 400 mg capsule Take 1 capsule (400 mg total) by mouth 3 (three) times a day. glucose blood (Blood Glucose Test) test strip 1 each by Other route as needed for other. Use as instructed INSULIN ASPART U-100 SUBQ Inject 8 Units under the skin 3 (three) times a day with meals. insulin degludec (Tresiba U-100 Insulin) 100 unit/mL injection Inject under the skin. insulin glargine (LANTUS) 100 unit/mL injection Inject under the skin every night at bedtime. lactulose (CHRONULAC) solution Take 30 mL (20 g total) by mouth once. liraglutide (Victoza 2-Huey) 0.6 mg/0.1 mL (18 mg/3 mL) injection Inject under the skin. losartan (COZAAR) 100 mg tablet Take 25 mg by mouth daily. mirtazapine (REMERON) 7.5 mg tablet Take 2 tablets (15 mg total) by mouth every night at bedtime. montelukast (SINGULAIR) 10 mg tablet Take 1 tablet (10 mg total) by mouth every night at bedtime. naloxegoL (Movantik) 12.5 mg tablet Take 12.5 mg by mouth daily. naloxone HCl (NARCAN NASL) spray or apply inside Nose. oxyCODONE-acetam inophen (PERCOCET) 5-325 mg per tablet Take 1 tablet by mouth Every 4 hours as needed. Ozempic 0.25 mg or 0.5 mg (2 mg/3 mL) injection pen INJECT 0.5 MG SUBCUTANEOUSLY EVERY 7 DAYS IN THE ABDOMEN, THIGHS, OR UPPER ARM, ROTATE INJECTION SITES. pen needle, diabetic (Pen Needle) 31 gauge x 3/16 needle by Does not apply route. RSV vacc, preF A and preF B/PF (ABRYSVO, PF, IM) Inject into the muscle. sertraline (ZOLOFT) 100 mg tablet Take 1 tablet (100 mg total) by mouth 1 (one) time each day. torsemide (DEMADEX) 20 mg tablet Take 1 tablet (20 mg total) by mouth 1 (one) time each day. documented as of this encounter Discharge Disposition Disposition Code Departure Means Destination Home or Self Care documented in this encounter Plan of Treatment Upcoming Encounters Date Type Department Care Team (Late st Contact Info) Description 06/26/2025 9:15 AM EST Office Visit [facility] [place] [address] [phone] Silviano Ingram DPM [address] [address] 11/25/2025 8:30 AM EDT Office Visit [facility] Hematology Oncology [address] [place] [phone] Nabeel March MD [address] [place] [address] documented as of this encounter Procedures Procedure Name Priority Date/Time Associated Diagnosis Comments MG MAMMO DIGITAL SCREENING W RANDELL BILAT Routine 04/21/2025 9:07 AM EST Encounter for screening mammogram for breast cancer documented in this encounter Results * MG Mammo Digital Screening w Randell bilat (04/21/2025 9:07 AM EST) Anatomical Region Laterality Modality Breast Bilateral Mammography 04/21/2025 9:15 AM EST Impressions 04/21/2025 9:25 AM EST No mammographic evidence of new or recurrent malignancy. No suspicious interval change. A negative mammogram in the presence of a clinically suspicious palpable abnormality does not preclude the possibility of malignancy or alter the indications for biopsy. ASSESSMENT: BI-RADS 2: BENIGN RECOMMENDATION(S): 1: Routine screening mammogram BILATERAL in 1 year. [facility]amm[facility] location: [facility] at [address], [address] -------- FINAL REPORT -------- Dictated By: Raymon Pruitt Dictated Date: 04/21/2025 09:15 ET Assigned Physician: Raymon Pruitt Reviewed and Electronically Signed By: Raymon Pruitt Signed Date: 04/21/2025 09:25 ET Workstation ID: [id number] Transcribed By: Self Edit Transcribed Date: 04/21/2025 09:15 ET Narrative 04/21/2025 9:25 AM EST EXAM: SCREENING MAMMOGRAPHY, BILATERAL HISTORY: SCREENING. Personal history of right breast cancer. Prior lumpectomy COMPARISON: 04/19/24, 04/17/23, 04/08/22, 03/08/21 TECHNIQUE: Synthesized CC and MLO projections of each breast. Tomosynthesis of each breast in the CC and MLO projections. ADDITIONAL IMAGING: Craniocaudal view of the right breast exaggerated toward the axilla using Tomosynthesis. Computer-aided detection was employed with the [employer] AI 3-D. TISSUE DENSITY: The breasts are heterogeneously dense, which may obscure small masses. (BI-RADS category C) FINDINGS: RIGHT BREAST: There is skin retraction with distortion. There is fat necrosis with oil cyst and evolving dystrophic calcification. There are surgical clips. There are clips in the axilla. No new suspicious mass. No new suspicious calcification. No new area of distortion. No additional suspicious right breast findings LEFT BREAST: No suspicious mass. No new suspicious calcification. No distortion. No convincing change in some regional calcifications in the upper outer left breast. A power generator obscures some of the anatomy. No additional suspicious left breast findings Procedure Note Raymon Pruitt MD - 04/21/2025 EXAM: SCREENING MAMMOGRAPHY, BILATERAL HISTORY: SCREENING. Personal history of right breast cancer. Priorlumpectomy COMPARISON: 04/19/24, 04/17/23, 04/08/22, 03/08/21 TECHNIQUE: Synthesized CC and MLO projections of each breast.Tomosynthesis of each breast in the CC and MLO projections. ADDITIONAL IMAGING: Craniocaudal view of the right breast exaggeratedtoward the axilla using Tomosynthesis. Computer-aided detection was employed with the [employer] 3-D. TISSUE DENSITY: The breasts are heterogeneously dense, which may obscuresmall masses. (BI-RADS category C) FINDINGS: RIGHT BREAST: There is skin retraction with distortion. There is fat necrosis with oilcyst and evolving dystrophic calcification. There are surgical clips.There are clips in the axilla. No new suspicious mass. No new suspicious calcification. No new area ofdistortion. No additional suspicious right breast findings LEFT BREAST: No suspicious mass. No new suspicious calcification. No distortion. No convincing change in some regional calcifications in the upper outerleft breast. A power generator obscures some of the anatomy. No additional suspicious left breast findings IMPRESSION: No mammographic evidence of new or recurrent malignancy. No suspicious interval change. A negative mammogram in the presence of a clinically suspicious palpableabnormality does not preclude the possibility of malignancy or alter theindications for biopsy. ASSESSMENT: BI-RADS 2: BENIGN RECOMMENDATION(S): 1: Routine screening mammogram BILATERAL in 1 year. [facility] location[facility] at [address], [address] -------- FINAL REPORT -------- Dictated By: Raymon Pruitt Dictated Date: 04/21/2025 09:15 ET Assigned Physician: Raymon Pruitt Reviewed and Electronically Signed By: Raymon Pruitt Signed Date: 04/21/2025 09:25 ET Workstation ID: [id number] Transcribed By: Self Edit Transcribed Date: 04/21/2025 09:15 ET us Self Referral Sppl IMG BI PROCEDURES Final Resul t documented in this encounter Visit Diagnoses Diagnosis Encounter for screening mammogram for breast cancer documented in this encounter Care Teams Cruller Maker Relationship Specialty Start Date End Date Angela Luz MD [address] [phone] PCP - General Internal Medicine 01/28/21 documented as of this encounter
--- NOTE | 2025-04-23 08:26 | A.OFFVIS_ITS ---
Vital Signs 04/23/25 08:31 Height 4 ft 8 in Weight 138 lb BMI 30.9 Intake Visit Reasons: OV LT shoulder 02/02/24 , last inj 01/02/25 Intake Note: Angela is a 69 year old female who presents with complaints of intermittent discomfort along the lateral aspect of her left shoulder. She denies any weakness. She has tried Tylenol and anti-inflammatory medicines which gave her mild relief. She has had cortisone injections in the past which gave her fairly good relief. Allergies tramadol (TRAMADOL) Allergy (Severe, Verified 04/23/25 08:31) THROAT, LIPS SWELLING, latex (LATEX) Allergy (Intermediate, Verified 04/23/25 08:31) RASH Medication List - Last Reconciled 04/23/25 by Gato Dhaliwal MD albuterol sulfate 90 mcg/actuation 2 puffs inhalation Q6H PRN albuterol sulfate 1 mg (1.2 mL) inhalation TID 30 days amlodipine (Norvasc) 10 mg PO DAILY anastrozole 1 tab PO DAILY 30 days aspirin 1 tab PO DAILY 30 days atorvastatin 40 mg PO DAILY CPAP (CPAP Machine/Device) As directed dapagliflozin propanediol (Farxiga) 10 mg PO DAILY 30 days docusate sodium 100 mg PO DAILY PRN doxepin 10 mg PO BEDTIME PRN 30 days esomeprazole magnesium mg PO DAILY flash glucose sensor (FreeStyle Jeovany 2 Sensor kit) As directed insulin aspart U-100 (Novolog FlexPen U-100 Insulin aspart) INJECT 30 UNITS SUBCUTANEOUSLY BEFORE BREAKFAST AND BEFORE LUNCH AND INJECT 40 UNITS SUBCUTANEOUSLY BEFORE SUPPER 30 days insulin degludec (Tresiba FlexTouch U-200 insulin) 40 units subcut QNOON losartan 25 mg PO DAILY 30 days mirtazapine 15 mg PO BEDTIME 30 days montelukast 10 mg PO BEDTIME naloxegol (Movantik) 12.5 mg PO QAM nebulizers As directed plecanatide (Trulance) 3 mg PO DAILY semaglutide (Ozempic) 2 mg subcut QWEEK sertraline 100 mg PO DAILY 30 days sodium,potassium,mag sulfates 17.5-3.13-1.6 gram (Suprep Bowel Prep Kit) DILUTE each bottle with 16oz of water; drink first bottle 5pm evening before procedure AND second bottle at 11pm; follow each bottle with at least 32 oz.of water within 1 hour after each bottle torsemide 40 mg (2 x 20 mg) PO DAILY 30 days Trelegy Ellipta 200-62.5-25 mcg (djzlojibuog-[id number]-mqmvziyt) 1 ea inhalation DAILY NS ursodiol mg PO PFSH Medical History Sick sinus syndrome CKD (chronic kidney disease) Hx of radiation therapy Arthritis HTN (hypertension) Anemia Chronic restrictive lung disease Dyspnea Asthma Obesity (BMI 30-39.9) correction (current) use of insulin Dyslipidemia Diabetic nephropathy associated with type 2 diabetes mellitus Diabetic retinopathy associated with type 2 diabetes mellitus Obstructive sleep apnea on CPAP Other and unspecified hyperlipidemia Essential hypertension Type 2 diabetes mellitus with unspecified complications GERD (gastroesophageal reflux disease) (~05/18/23) Breast cancer Depression Diabetes mellitus, type 2 Surgical History History of liver biopsy Hx of cardiac catheterization Hx of colonoscopy History of esophagogastroduodenoscopy (EGD) History of total abdominal hysterectomy History of cholecystectomy History of shoulder surgery History of 3 sections History of permanent cardiac pacemaker placement Family History Father Diabetes Brother Diabetes Sister Diabetes Mother No known problems Social History Household Members: Spouse and Family Housing: Apartment Are you a primary special needs child caregiver to a significant other at home: No Do you presently have visiting nurse or other home services: Yes (nurse) Alcohol intake: never Patient Tobacco Use Status: Former Tobacco user Tobacco use type: Cigarette Years Smoked: 12 years e-Cigarette/Vaping Use: Former Use Second Hand Smoke Exposure: No service: No Current occupational status: disabled Sexual orientation: Straight/Heterosexual Physical Exam Vital Signs: BMI result Body Mass Index 30.9 Const Other: Well-nourished well-developed very friendly female awake alert and oriented x3 in no acute distress Extrem Other: Left shoulder examination shows slightly decreased range of motion when compared to her right shoulder, 4+ out of 5 strength with supraspinatus testing, mild discomfort with resisted forward flexion, no instability Office Procedures AMB Joint Injection/Aspiration Joint Injection/Aspiration Primary Site: Left Shoulder Prep: site was prepped using aseptic technique Injected: 40 mg of, DepoMedrol, with 3 mL of and 1% plain Lidocaine Procedure: The patient tolerated the procedure well Coding - Large joint Procedure code (CPT) selection complete Assessment & Plan Assessment & Plan (1) Left shoulder pain: Code(s): M25.512 - Pain in left shoulder Category: Medical Plan Angela presents with left shoulder pain due to rotator cuff tendinosis. The risks and benefits of a left shoulder cortisone injection were discussed at length with the patient. The patient wished to proceed. She tolerated the injection well. She will continue with her home exercise program. She will contact me prior to her follow-up appointment in 3 months should any questions or concerns arise. Feel free to call me at any time should questions regarding her orthopedic management arise. I spent 22 minutes in reviewing the patient's records and imaging studies, seeing the patient and documenting in the medical record. Orders: Orders AMB Joint Injection/Aspiration Today M25.512 - Pain in left shoulder Coding Level of Care Code Est Pt Level 3 (42351) Complex visit Add On G2211 Diagnoses Left shoulder pain M25.512 CPT Codes Coding - 95253 Large joint: 78532 - Large joint ([id number])
[2025-04-23 08:31] VITALS: BMI 30.9
--- OUTSIDE RECORDS SUMMARY | 2025-04-23 08:31 | XMS_ITS | Encounter Summary ---
Author Organization [employer] Address 75 [facility] 7t [place] [address] Care Team Providers Care Chaser Helper Name Role Phone Angela Luz MD Primary Care Provide r Ninfa Dietrich PharmD Unavailable [phone]- [phone] Reason for Visit * Reason Comments Med Refill Encounter Details Date Type Department Care Team (Late st Contact Info) Description 05/30/2023 Refill [facility] 230 [place], [place] [phone] Angela Cornell MD 230 [place], [place] [phone] Type 2 diabetes mellitus with stage 3 [...] Care Team (Late st Contact Info) Description 05/12/2025 9:00 AM EST Medication Management [facility] [address] [place] [address] Ninfa Dietrich PharmD [address] [place] [address] 05/30/2025 9:00 AM EST Telemedicine [facility] [address] [place] [address] Nazia Martins RN documented as of this encounter Visit Diagnoses Diagnosis Type 2 diabetes mellitus with stage 3 chronic kidney disease, with long-term current use of insulin, unspecified whether stage 3a or 3b CKD (HCC) documented in this encounter Care Teams Chaser Helper Relationship Specialty Start Date End Date Angela Luz MD [address] [place] [address] PCP - General Family Medicine 10/27/20 Ninfa Dietrich PharmD [address] [place] [address]66 Pharmacist Internal Medicine 11/10/23 [employer] 12/20/23 documented as of this encounter
--- OUTSIDE RECORDS SUMMARY | 2025-04-23 08:31 | XMS_ITS | Encounter Summary ---
Author Organization [employer] Address 75 [facility] 7t [place] [address] Care Team Providers Care Tip Cutter Name Role Phone Angela Luz MD Primary Care Provide r Ninfa Dietrich PharmD Unavailable [phone]- [phone] Reason for Visit * Reason Onset Date Comments Med Refill 06/28/2023 Encounter Details Date Type Department Care Team (Late st Contact Info) Description 06/28/2023 Refill [facility] MED[facility] 230 [place], [place] [phone] Angela Luz MD 230 [place], [place] [phone] Other chronic pain Social History Tobacco Use [...] Description 05/12/2025 9:00 AM EST Medication Management [address] [address] Ninfa Dietrich PharmD [address] [place] [address] 05/30/2025 9:00 AM EST Telemedicine [address] [address] Nazia Martins RN documented as of this encounter Visit Diagnoses Diagnosis Other chronic pain documented in this encounter Care Teams Tip Cutter Relationship Specialty Start Date End Date Angela Luz MD [address] [place] [address]498 PCP - General Family Medicine 10/27/20 Ninfa Dietrich, LauraD [address] [place] [address]66 Pharmacist Internal Medicine 11/10/23 [employer] 12/20/23 documented as of this encounter
--- OUTSIDE RECORDS SUMMARY | 2025-04-23 08:31 | XMS_ITS | Encounter Summary ---
Author Organization [employer] Address 75 [facility] [address] 7t [place] [address] Care Team Providers Care Information Security Risk Analyst Name Role Phone Angela Luz MD Primary Care Provide r Ninfa Dietrich PharmD Unavailable [phone]- [phone] Reason for Visit * Reason Onset Date Comments Med Refill 05/30/2023 Encounter Details Date Type Department Care Team (Late st Contact Info) Description 05/30/2023 Refill [facility] MEDICINE 230 [place], [place] [phone] Lashonda Alvarado MD 230 [place], [place] [phone] Constipation, unspecified constipation type Social History Tobacco [...] Description 05/12/2025 9:00 AM EST Medication Management [address] [address] Ninfa Dietrich PharmD [address] [place] [address] 05/30/2025 9:00 AM EST Telemedicine [address] [address] Nazia Martins RN documented as of this encounter Visit Diagnoses Diagnosis Constipation, unspecified constipation type documented in this encounter Care Teams Information Security Risk Analyst Relationship Specialty Start Date End Date Angela Luz MD [address] [place] [address] PCP - General Family Medicine 10/27/20 Ninfa Dietrich, LauraD [address] [place] [address] 24548 Pharmacist Internal Medicine 11/10/23 [employer] 12/20/23 documented as of this encounter
--- OUTSIDE RECORDS SUMMARY | 2025-04-23 08:31 | XMS_ITS | Encounter Summary ---
Author Organization [employer] Address 75 [facility] [address] 7t [place] [address] Care Team Providers Care Industrial Cook Name Role Phone Angela Luz MD Primary Care Provide r Ninfa Dietrich PharmD Unavailable [phone]- [phone] Reason for Visit * Reason Onset Date Comments Med Refill 05/30/2023 Encounter Details Date Type Department Care Team (Late st Contact Info) Description 05/30/2023 Refill [facility] MED & PEDS [address] [place], [place] [phone] Angela Cornell MD 230 [place], [place] [phone] Diabetic polyneuropathy associated with type 2 diabetes [...] Description 05/12/2025 9:00 AM EST Medication Management [facility] MEDICINE [address] [place] [address] Ninfa Dietrich PharmD [address] [place] [address] 05/30/2025 9:00 AM EST Telemedicine [facility] MED[facility]INE [address] [place] [address] Nazia Martins, DIAMOND documented as of this encounter Visit Diagnoses Diagnosis Diabetic polyneuropathy associated with type 2 diabetes mellitus (HCC) documented in this encounter Care Teams Industrial Cook Relationship Specialty Start Date End Date Angela Luz MD [address] [place] [address] PCP - General Family Medicine 10/27/20 Ninfa Dietrich PharmD [address] [place] [address] 10442 Pharmacist Internal Medicine 11/10/23 [employer] 12/20/23 documented as of this encounter
--- OUTSIDE RECORDS SUMMARY | 2025-04-23 08:31 | XMS_ITS | Encounter Summary ---
Author Organization [employer] Address [address] [facility] [address] 7t [place] [address] Care Team Providers Care Escrow Processor Name Role Phone Angela Luz MD Primary Care Provide r Ninfa Dietrich PharmD Unavailable [phone]- [phone] Reason for Visit * Reason Onset Date Comments Med Refill 05/30/2023 Encounter Details Date Type Department Care Team (Late st Contact Info) Description 05/30/2023 Refill [facility] 230 [place], [place] [phone] Yunier Mohr MD 230 [place], [place] [phone] Cervical spondylosis with radiculopathy Social History Tobacco [...] Description 05/12/2025 9:00 AM EST Medication Management [address] [address] Ninfa Dietrich PharmD [address] [place] [address] 05/30/2025 9:00 AM EST Telemedicine [address] [address] Nazia Martins, DIAMOND documented as of this encounter Visit Diagnoses Diagnosis Cervical spondylosis with radiculopathy Cervical spondylosis with myelopathy documented in this encounter Care Teams Escrow Processor Relationship Specialty Start Date End Date Angela Luz MD [address] [place] [address]678 PCP - General Family Medicine 10/27/20 Ninfa Dietrich PharmD [address] [place] [address]657 Pharmacist Internal Medicine 11/10/23 [employer] 12/20/23 documented as of this encounter
--- OUTSIDE RECORDS SUMMARY | 2025-04-23 08:31 | XMS_ITS | Encounter Summary ---
Author Organization [employer] Address 75 [facility] 7t [place] [address] Care Team Providers Care Corporate Travel Expert Name Role Phone Angela Luz MD Primary Care Provide r Ninfa Dietrich PharmD Unavailable [phone] Encounter Details Date Type Department Care Team ([facility] st Contact Info) Description 03/26/2024 Orders Only [facility] MEDICINE 230 [place], [place] [phone] Angela Luz MD 230 [place], [place] [phone] Social History Tobacco Use Types Packs/Day Years [...] Description 05/12/2025 9:00 AM EST Medication Management [address] [address] Ninfa Dietrich, PharmD [address] [place] [address] 05/30/2025 9:00 AM EST Telemedicine [address] [address] Nazia Martins, DIAMOND documented as of this encounter Goals Goal Patient Goal Type Associated Problems Recent Progress Patient-Stated? Author Blood Pressure < 140/90 Blood Pressure 142/68(2024 9:04 AM EDT) No Ady Araujo Hemoglobin A1c < 8 Result Component 7.7( 9:06 AM EDT) No Ady Araujo Note: Comorbidities: CHF, CKD, cirrhosis documented as of this encounter Visit Diagnoses Not on filedocumented in this encounter Care Teams Corporate Travel Expert Relationship Specialty Start Date End Date Angela Luz MD [address] [place] [address] PCP - General Family Medicine 10/27/20 Ninfa Dietrich, LauraD [address] [place] [address]150 Pharmacist Internal Medicine 11/10/23 [email or web address] 12/20/23 documented as of this encounter
--- OUTSIDE RECORDS SUMMARY | 2025-04-23 08:31 | XMS_ITS | Encounter Summary ---
Author Organization [employer] Address [address] [facility] [address] 7t [place] [address] Care Team Providers Care Transition Specialist Name Role Phone Angela Luz MD Primary Care Provide r Ninfa Dietrich PharmD Unavailable [phone]- [phone] Reason for Visit * Reason Onset Date Comments Med Refill 05/30/2023 Encounter Details Date Type Department Care Team (Late st Contact Info) Description 05/30/2023 Refill [facility] MEDICINE 230 [place], [place] [phone] Gemini Lagunas MD 230 [place], [place] [phone] Primary hypertension Social History Tobacco Use Types [...] Description 05/12/2025 9:00 AM EST Medication Management [address] [address] Ninfa Dietrich PharmD [address] [place] [address] 05/30/2025 9:00 AM EST Telemedicine [address] [address] Nazia Martins RN documented as of this encounter Visit Diagnoses Diagnosis Primary hypertension Unspecified essential hypertension documented in this encounter Care Teams Transition Specialist Relationship Specialty Start Date End Date Angela Luz MD [address] [place] [address] PCP - General Family Medicine 10/27/20 Ninfa Dietrich PharmD [address] [place] [address] Pharmacist Internal Medicine 11/10/23 [employer] 12/20/23 documented as of this encounter
--- OUTSIDE RECORDS SUMMARY | 2025-04-23 08:31 | XMS_ITS | Encounter Summary ---
Author Organization [employer] Address 75 [facility] [address] 7t [place] [address] Care Team Providers Care Sexual Abuse Counsellor Name Role Phone Angela Luz MD Primary Care Provide r Ninfa Dietrich PharmD Unavailable [phone] Reason for Visit * Reason Onset Date Comments Med Refill 05/30/2023 Encounter Details Date Type Department Care Team (Late st Contact Info) Description 05/30/2023 Refill [facility] MEDICINE 230 [place], [place] [phone] Yunier Mohr MD 230 [place], [place] [phone] Forgetfulness Social History Tobacco Use Types Packs/Day [...] Description 05/12/2025 9:00 AM EST Medication Management [address] [address] Ninfa Dietrich PharmD [address] [place] [address] 05/30/2025 9:00 AM EST Telemedicine [address] [address] Nazia Martins RN documented as of this encounter Visit Diagnoses Diagnosis Forgetfulness Other general symptoms documented in this encounter Care Teams Sexual Abuse Counsellor Relationship Specialty Start Date End Date Angela Luz MD [address] [place] [address] PCP - General Family Medicine 10/27/20 Ninfa Dietrich, PharmD [address] [place] [address] Pharmacist Internal Medicine 11/10/23 [employer] 12/20/23 documented as of this encounter
--- OUTSIDE RECORDS SUMMARY | 2025-04-23 08:32 | XMS_ITS | Encounter Summary ---
Author Organization [employer] Address 75 [facility] 7t [place] [address] Care Team Providers Care Gas Regulator Repairer Helper Name Role Phone Angela Luz MD Primary Care Provide r Ninfa Dietrich PharmD Unavailable [phone] Reason for Visit * Reason Comments Med Refill Encounter Details Date Type Department Care Team ([facility] st Contact Info) Description 09/06/2023 Refill [facility] 230 [place], [place] [phone] Angela Luz MD 230 [place], [place] [phone] Type 2 diabetes mellitus with other specified complication, unspecified whether long term care administrator insulin use ([facility]) Social History Tobacco Use Types [...] Description 05/12/2025 9:00 AM EST Medication Management [address] [address] Ninfa Dietrich PharmD [address] [place] [address] 05/30/2025 9:00 AM EST Telemedicine [address] [address] Nazia Martins, DIAMOND documented as of this [...] specified complication, unspecified whether long term care administrator insulin use (HCC) documented in this encounter Care Teams Gas Regulator Repairer Helper Relationship Specialty Start Date End Date Angela Luz MD [address] [place] [address] PCP - General Family Medicine 10/27/20 Ninfa Dietrich, Shadia [address] [place] [address] Pharmacist Internal Medicine 11/10/23 [employer] 12/20/23 documented as of this encounter
--- OUTSIDE RECORDS SUMMARY | 2025-04-23 08:32 | XMS_ITS | Encounter Summary ---
Author Organization [employer] Address 75 [facility] 7t [place] [address] Care Team Providers Care Associate Professor Of Forestry Name Role Phone Angela Luz MD Primary Care Provide r Ninfa Dietrich PharmD Unavailable [phone] Reason for Visit * Reason Comments Med Refill Encounter Details Date Type Department Care Team (Late st Contact Info) Description 07/21/2022 Refill [facility] MEDICINE 230 [place], [place] [phone] Ava Winn DO 230 [place], [place] [phone] Other chronic pain Social History Tobacco Use [...] AM EST documented as of this encounter Functional Status * Over the past 2 weeks, how often have you been bothered by any of the following problems? Question Answer Date of Assessment Author Little interest or pleasure in doing things Not at all 07/21/2022 11:48 AM EST Cele Myles [place] Feeling down, depressed, or hopeless Not at all 07/21/2022 11:48 AM EST Nicolette Myles MA Patient Health Questionnaire-2 Score 0 07/21/2022 11:48 AM EST Denver Myles [place] documented as of this encounter Plan of Treatment Upcoming Encounters Date Type Department Care Team (Late st Contact Info) Description 05/12/2025 9:00 AM EST Medication Management [address] [address] Ninfa Dietrich PharmD [address] [place] [address] 05/30/2025 9:00 AM EST Telemedicine [facility] MEDICINE [address] [place] [address] Nazia Martins, DIAMOND documented as of this encounter Visit Diagnoses Diagnosis Other chronic pain documented in this encounter Care Teams Associate Professor Of Forestry Relationship Specialty Start Date End Date Angela Luz MD [address] [place] [address] PCP - General Family Medicine 10/27/20 Ninfa Dietrich PharmD [address] [place] [address] Pharmacist Internal Medicine 11/10/23 [employer] 12/20/23 documented as of this encounter
--- OUTSIDE RECORDS SUMMARY | 2025-04-23 08:32 | XMS_ITS | Encounter Summary ---
Author Organization [employer] Address 75 [facility] 7t [place] [address] Care Team Providers Care Copper Plate Lithographer Name Role Phone Angela Luz MD Primary Care Provide r Ninfa Dietrich PharmD Unavailable [phone] Reason for Visit * Reason Onset Date Comments Med Refill 04/03/2023 Encounter Details Date Type Department Care Team (Late st Contact Info) Description 04/03/2023 Refill [facility] MEDICINE 230 [place], [place] [phone] Angela Luz MD 230 [place], [place] [phone] Type 2 diabetes mellitus with other specified complication, unspecified whether penitentiary insulin use ([facility]) Social History Tobacco Use Types Packs/Day Years [...] Description 05/12/2025 9:00 AM EST Medication Management [address] [address] Ninfa Dietrich PharmD [address] [place] [address] 05/30/2025 9:00 AM EST Telemedicine [address] [address] Nazia Martins RN documented as of this encounter Visit Diagnoses Diagnosis Type 2 diabetes mellitus with other specified complication, unspecified whether oil heaterman insulin use (HCC) documented in this encounter Care Teams Copper Plate Lithographer Relationship Specialty Start Date End Date Angela Luz MD [address] [place] [address] PCP - General Family Medicine 10/27/20 Ninfa Dietrich PharmD [address] [place] [address] Pharmacist Internal Medicine 11/10/23 [employer] 12/20/23 documented as of this encounter
--- OUTSIDE RECORDS SUMMARY | 2025-04-23 08:32 | XMS_ITS | Encounter Summary ---
Author Organization [employer] Address 75 [facility] 7t [place] [address] Care Team Providers Care Evening Or Night Nurse Supervisor Name Role Phone Angela Luz MD Primary Care Provide r Ninfa Dietrich PharmD Unavailable Reason for Visit * Reason Comments Med Refill Encounter Details Date Type Department Care Team (Late st Contact Info) Description 02/22/2023 Refill [facility] MEDICINE 230 [place], [place] [phone] Angela Luz MD 230 [place], [place] [phone] Type 2 diabetes mellitus with stage 3 [...] Description 05/12/2025 9:00 AM EST Medication Management [facility] MEDICINE [address] [place] [address] Ninfa Dietrich PharmD [address] [place] [address] 05/30/2025 9:00 AM EST Telemedicine [address] [address] Nazia Martins RN documented as of this encounter Visit Diagnoses Diagnosis Type 2 diabetes mellitus with stage 3 chronic kidney disease, with long-term current use of insulin, unspecified whether stage 3a or 3b CKD (HCC) documented in this encounter Care Teams Evening Or Night Nurse Supervisor Relationship Specialty Start Date End Date Angela Luz MD [address] [place] [address] PCP - General Family Medicine 10/27/20 Ninfa Dietrich PharmD [address] [place] [address] Pharmacist Internal Medicine 11/10/23 [employer] 12/20/23 documented as of this encounter
--- OUTSIDE RECORDS SUMMARY | 2025-04-23 08:32 | XMS_ITS | Encounter Summary ---
Author Organization [employer] Address 75 [facility] 7t [place] [address] Care Team Providers Care Petrologist Name Role Phone Angela Luz MD Primary Care Provide r Ninfa Dietrich PharmD Unavailable Reason for Visit * Reason Comments Med Refill Encounter Details Date Type Department Care Team (Late st Contact Info) Description 01/27/2023 Refill [facility] MEDICINE 230 [place], [place] [phone] Angela Luz MD 230 [place], [place] [phone] Other chronic pain Social History Tobacco Use [...] Description 05/12/2025 9:00 AM EST Medication Management [facility] MEDICINE 230 [place] [address] Ninfa Dietrich, PharmD 230 [place] [address] 05/30/2025 9:00 AM EST Telemedicine [facility] MEDICINE 230 [place], [place] [phone] Nazia Martins RN documented as of this encounter Visit Diagnoses Diagnosis Other chronic pain documented in this encounter Care Teams Petrologist Relationship Specialty Start Date End Date Angela Luz MD [address] [place] [address] PCP - General Family Medicine 10/27/20 Ninfa Dietrich PharmD [address] [place] [address] Pharmacist Internal Medicine 11/10/23 [employer] 12/20/23 documented as of this encounter
--- OUTSIDE RECORDS SUMMARY | 2025-04-23 08:32 | XMS_ITS | Encounter Summary ---
Author Organization [employer] Address 75 [facility] 7t [place] [address] Care Team Providers Care Visitor Services Technician Name Role Phone Angela Luz MD Primary Care Provide r Ninfa Dietrich PharmD Unavailable Reason for Visit * Reason Comments Med Refill Encounter Details Date Type Department Care Team (Late Contact Info) Description 02/20/2023 Refill [facility] MED & PEDS 505 [place], [place] [phone] Angela Luz MD 230 [place], [place] [phone] Gastroesophageal reflux disease, unspecified whether esophagitis present [...] Department Care Team (Late Contact Info) Description 05/12/2025 9:00 AM EST Medication Management [facility] MEDICINE 230 [place], [place] [phone] Ninfa Dietrich PharmD [address] [place] [address] 05/30/2025 9:00 AM EST Telemedicine [facility] MEDICINE [address] [place] [address] Nazia Martins RN documented as of this encounter Visit Diagnoses Diagnosis Gastroesophageal reflux disease, unspecified whether esophagitis present documented in this encounter Care Teams Visitor Services Technician Relationship Specialty Start Date End Date Angela Luz MD [address] [place] [address] PCP - General Family Medicine 10/27/20 Ninfa Dietrich PharmD [address] [place] [address] Pharmacist Internal Medicine 11/10/23 [email or web address] 12/20/23 documented as of this encounter
--- OUTSIDE RECORDS SUMMARY | 2025-04-23 08:32 | XMS_ITS | Encounter Summary ---
Author Organization [employer] Address [address] [facility] [address] 7t [place] [address] Care Team Providers Care Stamp Analyst Name Role Phone Angela Luz MD Primary Care Provide r Ninfa Dietrich PharmD Unavailable Reason for Visit * Reason Comments Med Refill Encounter Details Date Type Department Care Team (Late st Contact Info) Description 09/27/2023 Refill [facility] MED [facility] PEDS [address] [place], [place] [phone] Angela Luz MD 230 [place], [place] [phone] Seasonal allergic rhinitis, unspecified trigger; Other chronic [...] Description 05/12/2025 9:00 AM EST Medication Management [address] [address] Ninfa Dietrich PharmD [address] [place] [address] 05/30/2025 9:00 AM EST Telemedicine [address] [address] Nazia Martins RN documented as of this [...] pain documented in this encounter Care Teams Stamp Analyst Relationship Specialty Start Date End Date Angela Luz MD [address] [place] [address] PCP - General Family Medicine 10/27/20 Ninfa Dietrich PharmD 230 [place] [address] Pharmacist Internal Medicine 11/10/23 [employer] 12/20/23 documented as of this encounter
--- OUTSIDE RECORDS SUMMARY | 2025-04-23 08:32 | XMS_ITS | Encounter Summary ---
Author Organization [id number] Address [address] [facility] [address] 7t [place] [address] Care Team Providers Care Technician Terminal And Repeater Name Role Phone Angela Luz MD Primary Care Provide r Ninfa Dietrich PharmD Unavailable [phone] Reason for Visit * Reason Onset Date Comments Shade 03/28/2023 Encounter Details Date Type Department Care Team ([facility] st Contact Info) Description 03/28/2023 Telephone [facility] ADULT DENTAL 230 [place] [address] Percy Dennison, DMD [address] [place], [place] [phone] Shade Social History Tobacco Use Types Packs/Day [...] from Vitality looking for shade of denture. [phone]. [facility] contact lab documented in this encounter Plan of Treatment Upcoming Encounters Date Type Department Care Team (Late st Contact Info) Description 05/12/2025 9:00 AM EST Medication Management [facility] MEDICINE [address] [place] [address] Ninfa Dietrich PharmD [address] [place] [address] 05/30/2025 9:00 AM EST Telemedicine [facility] MEDICINE [address] [place] [address] Nazia Martins RN documented as of this encounter Visit Diagnoses Not on filedocumented in this encounter Care Teams Technician Terminal And Repeater Relationship Specialty Start Date End Date Angela Luz MD [address] [place] [address] PCP - General Family Medicine 10/27/20 Ninfa Dietrich PharmD [address] [place] [address] Pharmacist Internal Medicine 11/10/23 [employer] 12/20/23 documented as of this encounter
--- OUTSIDE RECORDS SUMMARY | 2025-04-23 08:32 | XMS_ITS | Encounter Summary ---
Author Organization [employer] Address 75 [facility] 7t [place] [address] Care Team Providers Care Finance Consultant Name Role Phone Angela Luz MD Primary Care Provide r Ninfa Dietrich PharmD Unavailable [phone] Encounter Details Date Type Department Care Team (Late st Contact Info) Description 08/30/2022 Telephone [facility] MEDICINE 230 [place] [address] Lacie Mtz, DIAMOND 230 [place] [address] Social History Tobacco Use Types Packs/Day Years [...] Description 05/12/2025 9:00 AM EST Medication Management [address] [address] Ninfa Dietrich PharmD [address] [place] [address] 05/30/2025 9:00 AM EST Telemedicine [address] [address] Nazia Martins, DIAMOND documented as of this encounter Visit Diagnoses Not on filedocumented in this encounter Care Teams Finance Consultant Relationship Specialty Start Date End Date Angela Luz MD [address] [place] [address] PCP - General Family Medicine 10/27/20 Ninfa Dietrich PharmD [address] [place] [address] Pharmacist Internal Medicine 11/10/23 [employer] 12/20/23 documented as of this encounter
--- OUTSIDE RECORDS SUMMARY | 2025-04-23 08:32 | XMS_ITS | Encounter Summary ---
Author Organization [employer] Address 75 [facility] 7t [place] [address] Care Team Providers Care Alarm Signal Operator Name Role Phone Angela Luz MD Primary Care Provide r Ninfa Dietrich PharmD Unavailable [phone]- [phone] Reason for Visit * Reason Comments Med Refill Encounter Details Date Type Department Care Team ([facility] st Contact Info) Description 07/03/2023 Refill [facility] MEDICINE 230 [place], [place] [phone] Angela Luz MD 230 [place], [place] [phone] Seasonal allergic rhinitis, unspecified trigger; Type 2 diabetes mellitus with other specified complication, unspecified whether prison insulin use ([facility]) Social History Tobacco Use Types [...] Description 05/12/2025 9:00 AM EST Medication Management [address] [address] Ninfa Dietrich PharmD [address] [place] [address] 05/30/2025 9:00 AM EST Telemedicine [address] [address] Nazia Martins RN documented as of this encounter Visit Diagnoses Diagnosis Seasonal allergic rhinitis, unspecified trigger Type 2 diabetes mellitus with other specified complication, unspecified whether terminal clerk insulin use (HCC) documented in this encounter Care Teams Alarm Signal Operator Relationship Specialty Start Date End Date Angela Luz MD [address] [place] [address] PCP - General Family Medicine 10/27/20 Ninfa Dietrich PharmD [address] [place] [address] Pharmacist Internal Medicine 11/10/23 [employer] 12/20/23 documented as of this encounter
--- OUTSIDE RECORDS SUMMARY | 2025-04-23 08:32 | XMS_ITS | Encounter Summary ---
Author Organization [employer] Address [address] [facility] [address] 7t [place] [address] Care Team Providers Care Gambling Dealer Name Role Phone Angela Luz MD Primary Care Provide r Ninfa Dietrich PharmD Unavailable [phone] Reason for Visit * Reason Comments Med Refill Encounter Details Date Type Department Care Team ([facility] st Contact Info) Description 03/14/2023 Refill [facility] MEDICINE 230 [place], [place] [phone] Jeancarlos Brice MD 230 [place], [place] [phone] Chronic pruritus Social History Tobacco Use Types [...] Description 05/12/2025 9:00 AM EST Medication Management [address] [address] Ninfa Dietrich PharmD [address] [place] [address] 05/30/2025 9:00 AM EST Telemedicine [address] [address] Nazia Martins RN documented as of this encounter Visit Diagnoses Diagnosis Chronic pruritus documented in this encounter Care Teams Gambling Dealer Relationship Specialty Start Date End Date Angela Luz MD [address] [place] [address] PCP - General Family Medicine 10/27/20 Ninfa Dietrich, PharmD [address] [place] [address] Pharmacist Internal Medicine 11/10/23 [employer] 12/20/23 documented as of this encounter
--- OUTSIDE RECORDS SUMMARY | 2025-04-23 08:32 | XMS_ITS | Encounter Summary ---
Author Organization [employer] Address [address] [facility] [address] 7t [place] [address] Care Team Providers Care Sweeper Operator Highways Name Role Phone Angela Luz MD Primary Care Provide r Ninfa Dietrich PharmD Unavailable Reason for Visit * Reason Comments Med Refill Encounter Details Date Type Department Care Team (Late st Contact Info) Description 02/15/2024 Refill [facility] CH[facility] MED & PEDS [address] [place], [place] [phone] Angela Luz MD 230 [place], [place] [phone] Seasonal allergic rhinitis, unspecified trigger Social History [...] Description 05/12/2025 9:00 AM EST Medication Management [address] [address] Ninfa Dietrich PharmD [address] [place] [address] 05/30/2025 9:00 AM EST Telemedicine [address] [address] Nazia Martins RN documented as of this [...] trigger documented in this encounter Care Teams Sweeper Operator Highways Relationship Specialty Start Date End Date Angela Luz MD [address] [place] [address] PCP - General Family Medicine 10/27/20 Ninfa Dietrich, Shadia 230 [place] [address] Pharmacist Internal Medicine 11/10/23 [email or web address] 12/20/23 documented as of this encounter
--- OUTSIDE RECORDS SUMMARY | 2025-04-23 08:32 | XMS_ITS | Encounter Summary ---
Author Organization [employer] Address [address] [facility] [address] 7t [place] [address] Care Team Providers Care Biomedical Equipment Technician Name Role Phone Angela Luz MD Primary Care Provide r Ninfa Dietrich PharmD Unavailable Reason for Visit * Reason Comments Med Refill Encounter Details Date Type Department Care Team (Late st Contact Info) Description 10/17/2024 Refill [facility] MEDICINE 230 [place], [place] [phone] Ninfa Dietrich, PharmD 230 [place], [place] [phone] Type 2 diabetes mellitus with hyperglycemia, with long-term current use of insulin ([facility]) Social History Tobacco Use [...] Description 05/12/2025 9:00 AM EST Medication Management [address] [address] Ninfa Dietrich, LauraD [address] [place] [address] 05/30/2025 9:00 AM EST Telemedicine [address] [address] Nazia Martins RN documented as of this [...] hyperglycemia, with long-term current use of insulin (HCC) documented in this encounter Care Teams Biomedical Equipment Technician Relationship Specialty Start Date End Date Angela Luz MD 230 [place] [address] PCP - General Family Medicine 10/27/20 Ninfa Dietrich, LauraD 230 [place] [address] Pharmacist Internal Medicine 11/10/23 [employer] 12/20/23 documented as of this encounter
--- OUTSIDE RECORDS SUMMARY | 2025-04-23 08:32 | XMS_ITS | Encounter Summary ---
Author Organization [employer] Address 75 [facility] 7t [place] [address] Care Team Providers Care Electrician Bus Name Role Phone Angela Luz MD Primary Care Provide r Ninfa Dietrich PharmD Unavailable [phone] Reason for Visit * Reason Onset Date Comments Med Refill 11/11/2022 Encounter Details Date Type Department Care Team (Late st Contact Info) Description 11/11/2022 Refill [facility] MEDICINE 230 [place], [place] [phone] Angela Luz MD 230 [place], [place] [phone] Other chronic pain Social History Tobacco Use [...] 05/12/2025 9:00 AM EST Medication Management [address] [address] Ninfa Dietrich PharmD [address] [place] [address] 05/30/2025 9:00 AM EST Telemedicine [address] [address] Nazia Martins, DIAMOND documented as of this encounter Visit Diagnoses Diagnosis Other chronic pain documented in this encounter Care Teams Electrician Bus Relationship Specialty Start Date End Date Angela Luz MD [address] [place] [address] PCP - General Family Medicine 10/27/20 Ninfa Dietrich PharmD [address] [place] [address] Pharmacist Internal Medicine 11/10/23 [employer] 12/20/23 documented as of this encounter
--- OUTSIDE RECORDS SUMMARY | 2025-04-23 08:32 | XMS_ITS | Encounter Summary ---
Author Organization [employer] Address 75 [facility] 7t [place] [address] Care Team Providers Care Pharmacy Graduate Intern Name Role Phone Angela Luz MD Primary Care Provide r Ninfa Dietrich PharmD Unavailable Reason for Visit * Reason Comments Med Refill Encounter Details Date Type Department Care Team (Late st Contact Info) Description 09/13/2022 Refill [facility] MEDICINE 230 [place], [place] [phone] Angela Luz MD 230 [place], [place] [phone] Other chronic pain Social History Tobacco Use [...] Description 05/12/2025 9:00 AM EST Medication Management [facility] MEDICINE 230 [place], [place] [phone] Ninfa Dietrich, PharmD 230 [place] [address] 05/30/2025 9:00 AM EST Telemedicine [facility] MEDICINE 230 [place], [place] [phone] Nazia Martins RN documented as of this encounter Visit Diagnoses Diagnosis Other chronic pain documented in this encounter Care Teams Pharmacy Graduate Intern Relationship Specialty Start Date End Date Angela Luz MD [address] [place] [address] PCP - General Family Medicine 10/27/20 Ninfa Dietrich PharmD [address] [place] [address] Pharmacist Internal Medicine 11/10/23 [employer] 12/20/23 documented as of this encounter
--- OUTSIDE RECORDS SUMMARY | 2025-04-23 08:32 | XMS_ITS | Encounter Summary ---
Author Organization [employer] Address [address] [facility] [address] 7t [place] [address] Care Team Providers Care Insurance Underwriter Sales Name Role Phone Angela Luz MD Primary Care Provide r Ninfa Dietrich PharmD Unavailable [phone] Reason for Visit * Reason Onset Date Comments Call Back Request 01/24/2024 Encounter Details Date Type Department Care Team ([facility] st Contact Info) Description 01/24/2024 Telephone [facility] MEDICINE 230 [place], [place] [phone] Angela Luz MD 230 [place], [place] [phone] Call Back Request Social History Tobacco Use [...] EDT Tc from Angela the VNA at [employer] requesting a calll back in regards to a sliding scale that was suppose to be faxed to [phone] please call Angela at [phone] documented in this encounter Plan of Treatment Upcoming Encounters Date Type Department Care Team (Late st Contact Info) Description 05/12/2025 9:00 AM EST Medication Management [address] [address] Ninfa Dietrich, LauraD [address] [place] [address] 05/30/2025 9:00 AM EST Telemedicine [address] [address] Nazia Martins, DIAMOND documented as of this encounter Goals Goal Patient Goal Type Associated Problems Recent Progress Patient-Stated? Author Blood Pressure < 140/90 Blood Pressure 142/68(2024 9:04 AM EDT) No Ady Araujo Hemoglobin A1c < 8 Result Component 7.7( 9:06 AM EDT) Ady Chan Note: Comorbidities: CHF, CKD, cirrhosis documented as of this encounter Visit Diagnoses Not on filedocumented in this encounter Care Teams Insurance Underwriter Sales Relationship Specialty Start Date End Date Angela Luz MD 230 [place] [address] PCP - General Family Medicine 10/27/20 Ninfa Dietrich PharmD 230 [place] [address] Pharmacist Internal Medicine 11/10/23 [employer] 12/20/23 documented as of this encounter
--- OUTSIDE RECORDS SUMMARY | 2025-04-23 08:32 | XMS_ITS | Encounter Summary ---
Author Organization [employer] Address 75 [facility] 7t [place] [address] Care Team Providers Care Treating Plant Supervisor Name Role Phone Angela Luz MD Primary Care Provide r Ninfa Dietrich PharmD Unavailable [phone] Reason for Visit * Reason Comments Med Refill Encounter Details Date Type Department Care Team ([facility] st Contact Info) Description 03/21/2023 Refill [facility] MEDICINE 230 [place], [place] [phone] Angela Luz MD 230 [place], [place] [phone] Other chronic pain Social History Tobacco Use [...] Description 05/12/2025 9:00 AM EST Medication Management [facility] MEDICINE [address] [place] [address] Ninfa Dietrich PharmD [address] [place] [address] 05/30/2025 9:00 AM EST Telemedicine [address] [address] Nazia Martins RN documented as of this encounter Visit Diagnoses Diagnosis Other chronic pain documented in this encounter Care Teams Treating Plant Supervisor Relationship Specialty Start Date End Date Angela Luz MD [address] [place] [address] PCP - General Family Medicine 10/27/20 Ninfa Dietrich, PharmD [address] [place] [address] Pharmacist Internal Medicine 11/10/23 [employer] 12/20/23 documented as of this encounter
--- OUTSIDE RECORDS SUMMARY | 2025-04-23 08:32 | XMS_ITS | Clinical Summary ---
Author Organization [facility] Address [address] [place] [address] Phone Care Team Providers Care Band Presser Name Role Phone Angela Luz MD Primary [...] EVENING 30 tablet 11 08/23/19 25 Active gabapentin (Neurontin) 100 mg capsule Take 1 capsule (100 mg total) by mouth 3 (three) times a day. 90 each 2 03/26/20 25 Active ammonium lactate (AmLactin) 12 % lotion Apply topically if needed for dry skin. 400 g 2 03/26/20 25 026 Active Encounters Date Type Department Care Team Description 04/21/2025 8:50 AM EST - 04/21/2025 11:59 PM EST Hospital Encounter [facility] [address] [place] [address] Encounter for screening mammogram for breast cancer Discharge Disposition: Home or Self Care 03/26/2025 9:00 AM EST Office Visit [facility] Surgery - [place] [address] [facility] [address] [place] [phone] Silviano Ingram DPM Controlled type 2 diabetes with neuropathy ([facility] V24, [facility] V28) (Primary Dx); Pain in toes of both feet; Arthritis of both feet; Hammertoes of both feet; Dermatophytosis, nail from Last 3 Months Immunizations Immunization Administration Dates Next Due COVID-19 (Pfizer/Comirnaty) 12yo and older 06/28/2023 [employer] SARS-CoV-2 COVID-19, mRNA, LNP-S, preservative free 06/10/2022,10/07/2021,03/02/2021,2020,07/02/2020 [...] due to type 2 di abetes mellitus ([facility] V24, [facility] V28) DX:CKD stage 3 due to type 2 diabetes mellitus (HCC) Insomnia DX:Insomnia Chronic shoulder pain DX:Chronic shoulder pain Type 2 diabetes mellitus wit h diabetic neuropathy ([facility] V24, [facility] V28) DX:Type 2 diabet es mellitus with diabetic neuropathy (HCC) Heel pain DX:Heel pain Venous insufficiency DX:Venous i nsufficiency HTN, goal below 140/80 DX:HTN, g oal below 140/80 Vitamin B12 deficiency anemia DX :Vitamin B12 deficiency anemia Allergic rhinitis DX:Allergic rh initis Solitary pulmonary nodule DX:Alisa itary pulmonary nodule Nonproliferative diabetic re tinopathy associated with type 2 diabetes mellitus ([facility] V24, [facility] V28) DX:Nonproliferative diabeti c retinopathy associated with type 2 diabetes mellitus (HCC) Mild obstructive sleep apnea DX: Mild obstructive sleep apnea RLS (restless legs syndrome) DX: RLS (restless legs syndrome) Anemia DX:Anemia PAD (peripheral artery disea se) ([facility] V24) DX:PAD (peripheral artery di sease) ([facility]) Hyperlipidemia DX:Hyperlipidemi a Essential hypertension, benign D X:Essential hypertension, benign Glaucoma DX:Glaucoma DM (diabetes mellitus) type II controlled, neurological manifestation ([facility] V24, [facility] V28) DX:DM (diabetes mellitus) ty pe II controlled, neurological manifestation ([facility]) Breast cancer ([facility] V24, [facility] V28) Social History Tobacco Use Types Packs/Day [...] Orientation Straight 03/11/2025 10 :51 AM EDT Obstetrics History Para Term AB IAB SAB [...] AM EST Office Visit [facility] [place] [address] [phone] Silviano Ingram, DPHelder [address] [address] 11/25/2025 8:30 AM EDT Office Visit [facility] Hematology Oncology [address] [place] [phone] Nabeel March MD [address] [place] [address] Health Maintenance Due Date Last Done Comments Colorectal Cancer Screening: Colonoscopy 1954 Diabetes: Annual Foot Exam 1964 Diabetes: Annual Retina Eye Exam 1964 Falls Risk Assessment 04/28/2022 Medicare Annual Wellness Visit 04/28/2022 Social Influencers of Health Screening 04/28/2022 Depression Screening 05/22/2024 COVID-19 Vaccine ( season) 2025 03/26/2024, 06/28/2023, 06/10/2022, Additional history exists Diabetes: Blood Sugar Control Test (HGBA1C) 09/04/2025 03/06/2025, 09/20/2024, 03/26/2024, Additional history exists Diabetes: Annual Urine Albumin-Creatinine Ratio (uACR) 10/18/2025 10/18/2024, 12/27/2023, 10/07/2022 Diabetes: Annual GFR (Glomerular Filtration Rate) 02/10/2026 02/10/2025, 07/30/2024, 01/23/2024, Additional history exists Hypertension/CHF/CAD Annual BMP Blood Test 02/10/2026 02/10/2025, 07/30/2024, 01/23/2024, Additional history exists Breast Cancer Screening 04/21/2027 04/21/20, 04/19/2024, 04/17/2023, Additional history exists Cholesterol Screening (Lipid Panel) [...] Hepatitis B Vaccines Completed 12/11/2023, 12/07/2023, 08/21/2023 Influenza Vaccine Completed 02/17/2025, , 03/30/2023, Additional history exists HIB Vaccines Aged Out [...] year. [facility]amm[facility] location[facility] [address], [address] -------- FINAL REPORT -------- Dictated By: Raymon Pruitt Dictated Date: 04/21/2025 09:15 ET Assigned Physician: Raymon Pruitt Reviewed and Electronically Signed By: Raymon Pruitt Signed Date: 04/21/2025 09:25 ET Workstation ID: [id number] Transcribed By: Self Edit Transcribed Date: 04/21/2025 [...] Tomosynthesis. Computer-aided detection was employed with the [employer] 3-D. TISSUE DENSITY: The breasts are [...] Tomosynthesis. Computer-aided detection was employed with the [employer] 3-D. TISSUE DENSITY: The breasts are heterogeneously [...] year. Mammography location: [facility] [address], [address] -------- FINAL REPORT -------- Dictated By: Raymon Pruitt Dictated Date: 04/21/2025 09:15 ET Assigned Physician: Raymon Pruitt Reviewed and Electronically Signed By: Raymon Pruitt Signed Date: 04/21/2025 09:25 ET Workstation ID: [id number] Transcribed By: Self Edit Transcribed Date: 04/21/2025 09:15 ET us Self Referral Sppl IMG BI PROCEDURES Final Resul t * BD Bone Density DXA Axial Skeleton [...] probability of hip fracture of 4.0%. Code 29163 -------- FINAL REPORT -------- Dictated By: Joby Brand Dictated Date: 04/19/2024 09:53 ET Assigned Physician: Joby Brand Reviewed and Electronically Signed By: Joby Brand Signed Date: 04/19/2024 09:54 ET Workstation ID: [id number] Transcribed By: Self Edit Transcribed Date: 04/19/2024 [...] density of the femurs bilaterally is 0.907 gm/io4pbhwq is 90% of that of young normals [...] probability of hip fracture of 4.0%. Code 41207 -------- FINAL REPORT -------- Dictated By: Joby Brand Dictated Date: 04/19/2024 09:53 ET Assigned Physician: Joby Brand Reviewed and Electronically Signed By: Joby Brand Signed Date: 04/19/2024 09:54 ET Workstation ID: [id number] Transcribed By: Self Edit Transcribed Date: 04/19/2024 09:53 ET us Nabeel March MD IMG DXA PROCEDURES Final Res ult * Lipid panel (05/23/2023) [facility] Triglycerides 0 mg/dL Comment:No interpretation Cholesterol 0 mg/dL Comment:No interpretation HDL 0 mg/dL Comment:No interpretation LDL Cholesterol 0 mg/dL Comment:No interpretation Blood Venous blood specimen / Unknown Result [facility] Historical Provider LAB BLOOD ORDERABLES Ruthy l Result * Urine Albumin Creatinine Ratio (10/07/2022) [facility] Urine Albumin Creatinine Ratio Abstracted Result [facility] Provider HEALTH MAINTENANCE Final Result * Annual BMP Blood Test (01/13/2022) [facility] Annual BMP Blood Test Abstracted Result [facility] Provider HEALTH MAINTENANCE Final Result * Hepatitis C Screening (11/17/2021) [facility] Hepatitis C Screening Abstracted Result [facility] Provider HEALTH MAINTENANCE Final Result * Hemoglobin A1c (03/29/2021) [facility] Hemoglobin A1C 0.0 % Comment:No interpretation Blood Venous blood specimen / Unknown Result [facility] Provider LAB BLOOD ORDERABLES Ruthy l Result from Last 3 Months or Most Recently Relevant to Health Maintenance Insurance [facility] MEDICARE Member Subscriber Plan / Payer (Ef fective 2023-Present) Name:Dominguez Angela Moreno Relation to Subscriber:Self Name:Angela Dominguez Payer ID:[id number] Group ID:[id number] Type:Not on file Address: [address] [place] [address] Care Teams Band Presser Relationship Specialty Start Date End Date Angela Luz MD [address] [facility] [address] [place] [phone] PCP - General Internal Medicine 01/28/21
--- OUTSIDE RECORDS SUMMARY | 2025-04-23 08:32 | XMS_ITS | Clinical Summary ---
Author Organization [employer] Address [address] [facility] [address] [place] [address] Care Team Providers Care Career Resource Specialist Name Role Phone Angela Luz MD Primary Care Provide r Ninfa Dietrich PharmD Unavailable [phone] Allergies Active Allergy Reactions Criticality Noted Date [...] mg by mouth 2 times daily. Active Fluticasone-Umecl idin-Vilant (Trelegy Ellipta) 200-62.5-25 MCG/ACT aerosol powder inhale [...] 2 TO 3 HOURS BEFORE DOSE Active sertraline (Zoloft) 100 MG tablet Take 1 tablet by mouth in the morning. 024 Active glucose (Glutose) 40 % gel oral gelIndications:Ty pe 2 diabetes mellitus with stage 3 chronic kidney disease, with long-term current use of insulin, unspecified whether stage 3a or 3b CKD ([facility]) Take 15 g by mouth if needed for low blood sugar. 45 g Active glucagon (Baqsimi) 3 MG/DOSE nasal powderIndications :Type 2 diabetes mellitus with hypoglycemia without coma, with long-term current use of insulin ([facility]) For severe hypoglycemia, administer 3 mg (1 actuation) into 1 nostril. May repeat dose if there has been no response after 15 minutes 2 each Active calcitriol (Rocaltrol) 0.25 MCG capsule Take 0.25 mcg by mouth every other day. 024 Active naloxone (Narcan) 4 mg/0.1 mL nasal sprayIndications: Chronic right shoulder pain Administer 1 spray (4 mg) into affected nostril(s) if needed for opioid reversal. spray 0.1 milliliter by intranasal route in 1 nostril may repeat dose every 2-3 minutes as needed alternating nostrils with each dose 2 each 2 Active Continuous Glucose Sensor (FreeStyle Jeovany 3 Plus Sensor) miscIndications:T ype 2 diabetes mellitus with hyperglycemia, with long-term current use of insulin ([facility]) 1 each every 15 days. Apply 1 every 15 days as directed for CGM 2 each 04/07/20 25 9:40 AM EST 025 Active losartan (Cozaar) 50 MG tablet Take 50 mg by mouth in the morning. 025 Active albuterol (2.5 MG/3ML) 0.083% nebulizer solutionIndicatio ns:Simple chronic bronchitis (CMS/HCC) ([facility]) INHALE 1 AMPULE USING A NEBULIZER THREE TIMES DAILY 180 mL 3 04/07/20 25 9:40 AM EST 025 Active TRUEplus Lancets 33G miscIndications:T ype 2 diabetes mellitus with hyperglycemia, with long-term current use of insulin ([facility]) USE DIRECTED TO TEST BLOOD SUGAR FOUR TIMES DAILY 400 each 11 04/21/20 25 12:48 PM EST 025 Active glucose blood (FreeStyle Precision Boris Test) test stripIndications: Type 2 diabetes mellitus with stage 3 chronic kidney disease, with long-term current use of insulin, unspecified whether stage 3a or 3b CKD ([facility]) Test blood sugar as directed three times daily 100 each 11 025 2025 Active Continuous Glucose Sales Route Driver (FreeStyle Jeovany 3 Elizabeth) deviceIndications :Type 2 diabetes mellitus with hyperglycemia, with long-term current use of insulin ([facility]) 1 each Once per day. Use as directed for CGM 1 each 025 Active insulin degludec (Tresiba FlexTouch) 200 UNIT/ML injectionIndicati ons:Type 2 diabetes mellitus with stage 3 chronic kidney disease, with long-term current use of insulin, unspecified whether stage 3a or 3b CKD ([facility]) INJECT 32 UNITS SUBCUTANEOUSLY ONCE DAILY 15 mL 3 025 Active senna (Senokot) 8.6 MG tabletIndications :Constipation, unspecified constipation type TAKE 2 TABLETS BY MOUTH EVERY DAY AT BEDTIME NEEDED FOR CONSTIPATION 180 tablet 1 025 Active fluticasone (Flonase) 50 MCG/ACT nasal sprayIndications: Nasal congestion USE 1-2 SPRAYS IN EACH NOSTRIL 1-2 TIMES PER DAY NEEDED FOR NASAL CONGESTION. NO MORE THAN 4 SPRAYS DAILY 16 g 025 Active Ozempic, 2 MG/DOSE, 8 MG/3ML solution pen-injectorIndic ations:Type 2 diabetes mellitus with stage 3 chronic kidney disease, with long-term current use of insulin, unspecified whether stage 3a or 3b CKD ([facility]) Inject 2 MG SUBCUTANEOUSLY EVERY 7 DAYS IN THE ABDOMEN, THIGHS OR UPPER ARM. ROTATE INJECTION SITES. 3 mL 3 025 Active NovoLOG FLEXPEN 100 UNIT/ML penIndications:Ty pe 2 diabetes mellitus with stage 3 chronic kidney disease, with long-term current use of insulin, unspecified whether stage 3a or 3b CKD ([facility]) USE DIRECTED THREE TIMES DAILY PER SLIDING SCALE <150mg/dL= 0 units,151-199mg/ dL=4 units,200-249mg/ dL=6 units,250-299mg/ dL=8 units,300-349mg/ dL=10 units,350-399mg/ dL=12 units,>400mg/dL 14 units & call offic 15 mL 3 04/21/20 25 12:48 PM EST 025 Active amLODIPine (Norvasc) 10 MG tabletIndications :Primary hypertension TAKE 1 TABLET BY MOUTH AT BEDTIME 90 tablet 1 025 Active pregabalin (Lyrica) 75 MG capsuleIndication s:Diabetic polyneuropathy associated with type 2 diabetes mellitus (HCC) Take 1 capsule (75 mg) by mouth 2 times daily. 60 capsule 1 025 Active ursodiol (Actigall) 500 MG tablet TAKE 1 TABLET BY MOUTH TWICE DAILY IN THE MORNING AND IN THE EVENING 60 tablet 2 025 Active esomeprazole (NexIUM) [address] capsule TAKE 1 CAPSULE BY MOUTH EVERY MORNING WITH BREAKFAST 30 capsule 2 025 Active insulin pen needle (Easy Touch Pen [place]) 31G X 8 mm miscIndications:T ype 2 diabetes mellitus with stage 3b chronic kidney disease, with long-term current use of insulin ([facility]) USE DIRECTED TO INJECT INSULIN 100 each 3 04/07/20 25 9:40 AM EST 025 Active oxyCODONE-acetami nophen (Percocet) 5-325 MG tabletIndications :Other chronic pain,Chronic right shoulder pain TAKE 1 TABLET BY MOUTH EVERY 6 HOURS NEEDED FOR SEVERE PAIN 112 tablet 04/07/20 25 9:40 AM EST 025 Active oxyCODONE-acetami nophen (Percocet) 5-325 MG tabletIndications :Other chronic pain,Chronic right shoulder pain TAKE 1 TABLET BY MOUTH EVERY 6 HOURS NEEDED FOR SEVERE PAIN FOR UP TO 28 DAYS 112 tablet 10/14/2 025 2024 Discontinued Active Problems Problem Noted Date Diagnosed Date Moderate episode of recurren t major depressive disorder (CMS/[facility]) 03/06/2025 Assessment & Plan (03/06/2025 12:43 PM EDT): Moderate recurrent major depressive disorder, currently stable. Psychiatric care and therapy ongoing. - Continue psychiatric and therapeutic management. Next follow-up in 3 months. Long-term current use of opiate analgesic 2024 Chronic kidney disease, stage 4 (severe) (CMS/HC C) 06/28/2024 Assessment & Plan (06/28/2024 4:39 PM EST): [...] is already refer to our pharmacy team [facility] for further medication adjustments Its my medical [...] use of insulin 06/08/2022 Assessment & Plan (12/09/2024 1:15 PM EDT): Diabetes is: almost at goal - Lab Results Component Value Date HGBA1C 7.1 (A) 12/09/2024 HGBA1C 8.5 (A) 09/20/2024 HGBA1C 6.9 (A) 03/26/2024 - Lab Results Component Value Date MICROALBUR 17.0 07/30/2024 CREATININE 1.57 (H) 07/30/2024 -Changes: none - Diabetic eye exam:up to date - Diabetic foot exam:referral done today - Continue lifestyle modifications - Continue current medications - Follow up: 3 months Assessment & Plan (03/26/2024 11:07 AM EST): [...] AM EDT): I will refer patient to slackline operator outside after this plan is to refer [...] current medications - Patient already has seen slackline operator diabetes has being challenging to manage I will refer her to endocrinology Assessment & Plan (07/21/2022 12:56 PM EST): Llast A1c was high. Continue current insulins dose XXXXX Continue Farxiga. FU with PCP in 2 months. FU closely with solution designer. Assessment & Plan (06/08/2022 1:02 PM EST): Restart Farxiga 10 mg and increase Lantus to 50 units qhs, continue 43 units in the morning. -Continue Humalog sliding scale. -Encouraged to increase small in fraction meals. -Will refer to certified adapted physical educator and gauger chief. -FU with me in 3-4 weeks. Other [...] Bradycardia 04/29/2022 Chronic right shoulder pain 04/29/2022 Assessment & Plan (03/06/2025 12:44 PM EDT): Chronic pain managed with prescribed analgesics. No new issues reported with current regimen. - Continue current pain management regimen. Monitor pain control. Pain in wrist 04/29/2022 Chronic systolic heart [...] or stolen. Prescription sent today. FU with LEVEL VIAL INSPECTOR AND TESTER nurse. Moderate persistent asthma 08/07/2017 Overview (04/29/2022): [...] ablation 2013 Hypertension 10/24/2013 Assessment & Plan (12/09/2024 1:14 PM EDT): I advised: - Aerobic exercise to reduce BP. Initial [...] consulting health care provider Assessment & Plan (06/28/2024 4:39 PM EST): [...] 06/11/2012 Overview (04/29/2022): 01/[address] in [place]. Last CT (abd) 06/02/12 - 5x7 pulm [...] units Dr. Gee Oneal Assessment & Plan (03/06/2025 12:43 PM EDT): - Type 2 diabetes mellitus with stage 3b chronic kidney disease, currently stable. Glycemic control target adjusted to A1c of 7 due to comorbid cardiac and renal conditions. No changes to current medications. - Continue current insulin regimen and management. Ordered 31 gauge x 8 mm pen needles for insulin administration. Next follow-up scheduled in 3 months. Monitor glycemic control and renal function. Assessment & Plan (06/28/2024 4:40 PM EST): [...] Diagnosed Date Resolved Date Breast cancer, right ([facility]/HCC) 06/24/2019 06/28/2024 Overview (12/26/2023): Right partial mastectomy 07/11, invasive intraductal carcinoma Patient underwent ultrasound-guided core biopsy on 06/03/2019 that showed infiltrating ductal carcinoma, ER CA positive HER-2/ayanna negative grade 2 malignancy Patient [...] breast. Pt follow up closely at [facility]/Dr. March. Obtain result of last mammogram. Continue on anastrozole Encounters Date Type Department Care Team Description 04/16/2025 Refill [facility] [address] [place] [id number] Angela Luz MD Diabetic polyneuropathy associated with type 2 diabetes mellitus (HCC) 04/04/2025 Refill [facility] [address], [place] [phone] Angela Luz MD Other chronic pain; Chronic right shoulder pain 03/21/2025 Telephone [facility] [address] [place] [phone] Angela Luz MD BENY RECALL 03/06/2025 9:15 AM EDT Office Visit [address] [phone] Angela Luz MD Moderate episode of recurrent major depressive disorder (CMS/HCC) (HCC) (Primary Dx); Type 2 diabetes mellitus with stage 3b chronic kidney disease, with long-term current use of insulin (HCC); Chronic right shoulder pain 03/06/2025 Travel 03/05/2025 Telephone [facility] [address] [place] [address] Angela Luz MD CHART PREP 03/03/2025 Refill [facility] [address] [place] [address] Angela Luz MD Other chronic pain; Chronic right shoulder pain 02/25/2025 Patient Outreach [facility] [address] [place] [address] Angela Luz MD 02/24/2025 Refill [facility] [address] [place] [address] Angela Luz MD 02/19/2025 9:00 AM EDT Clinical Support [facility] [address] [facility] [place] [address] Nazia Martins, RN Long-term current use of opiate analgesic (Primary Dx) 02/19/2025 Telephone [facility] [place] [address] Nazia Martins, RN LEVEL VIAL INSPECTOR AND TESTER Agreement resigned today 02/19/2025 Travel 02/17/2025 Orders Only [facility] [address] [place] [address] Angela Luz MD Type 2 diabetes mellitus with stage 3b chronic kidney disease, with long-term current use of insulin (CMS/HCC); Primary hypertension 02/17/2025 Telephone [facility] [address] [place] [address] Ninfa Dietrich, Shadia 02/17/2025 Travel 02/12/2025 Travel 02/10/2025 Orders Only GENERIC EXTERNAL DATA DEPARTMENT Provider, Generic External Data 01/28/2025 Refill [facility] [address] [place] [address] Angela Luz MD Other chronic pain; Chronic right shoulder pain 01/27/2025 Refill [facility] [address] [place] [address] Angela Luz MD Diabetic polyneuropathy associated with type 2 diabetes mellitus (CMS/HCC) from Last 3 Months Immunizations Immunization Administration Dates Next Due Hep A, Adult 12/11/2023 Hep B, adult 12/11/2023 HepB-CpG 12/07/2023,08/21/2023 INFLUENZA INJECTABLE QUADRIV ALANT CCIIV4 MDCK Multi-dose vial 04/19/2017 Influenza High-dose Quadriva lent Preservative Free 03/30/2023,02/26/2021 Influenza Injectable Quadriv alant Preservative Free IIV4 MDCK 03/21/2019 Influenza injectable quadriv alent preservative free 03/14/2020 Influenza, High Dose Seasona l, Preservative Free 02/17/2025,03/26/2024 Influenza, IIV3, injectable 03/21/2019,1 06/19/2016,05/02/2016,02/23,04/24/2014,03/28/2013,02/13/2012 Influenza, Unspecified [...] housing situation today? I have calos kermit 02/25/[address] you li ve. Do you have problems with any of the following? None of the above 02/25/2025 Food Insecurity Answer Date Recorded Within the past 12 months, y ou worried that your food would run out before you got money to buy more: Never True 02/25/2025 Within the past 12 months,th e food you bought just didn't last and you didn't have enough money to get more: Never True 11/2024 Transportation Answer Date Recorded In the past 12 months, has l ack of transportation kept you from medical appts, meetings, work or from getting things needed for daily living? No 02/25/2025 Utilities Answer Date Recorded In the past 12 months, has t he electric, gas, oil or water company threatened to shut off services in your home? No 02/25/2025 Depression Answer Date Recorded Patient Health Questionnaire-2 Score 6 12/26/2023 Internet Access Answer Date Recorded Internet Access Q1 Yes 02/25/2025 Internet Access Q2 Not on file 02/25/2025 Comments No Sex and Gender Information Value Date Recorded Sex Assigned at Female 03/21/2022 10:38 AM EDT Legal Sex Female 10:38 AM EDT Gender Identity Female 03/21/2022 10:38 AM EDT Sexual Orientation Straight 03/21/2022 10 :38 AM EDT Last Filed Vital Signs Vital Sign Reading Time Taken Comments Blood Pressure 142/68 03/06/2025 9:04 AM EDT Pulse 60 03/06/2025 9:04 AM EDT Temperature 35.1 C (95.1 F) 03/06/2025 9:04 AM EDT Respiratory Rate 16 03/06/2025 9:04 AM EDT Oxygen Saturation 98% 03/06/2025 9:04 AM EDT Inhaled Oxygen Concentration - - Weight 62.5 kg (137 lb 12.8 oz) 03/06/2025 9:04 AM EDT Height 142.2 cm (4' 8 ) 03/06/2025 9:04 AM EDT Body Mass Index 30.89 03/06/2025 9:04 AM EDT Plan of Treatment Upcoming Encounters Date Type Department Care Team (Late st Contact Info) Description 05/12/2025 9:00 AM EST Medication Management [address] [phone] Ninfa Dietrich, LauraD [address] [place] [address] 05/30/2025 9:00 AM EST Telemedicine [address] [phone] Nazia Martins, DIAMOND Health Maintenance Due Date Last Done Comments CT Colonography 1954 Dental Prophylaxis 1954 Dental X-Ray: Bitewings 1954 FIT DNA/Cologuard 1954 FIT 1954 FOBT 1954 Sigmoidoscopy 1954 Diabetes: Foot Exam 1964 Eye Exam 1964 Alcohol/Substance Use Screening 1966 Dental Oral Exam 08/08/2023 02/06/2023 Depression Screening 12/25/2024 12/26/2023, 12/26/19 24 COVID-19 Vaccine ( season) 2025 03/26/2024, 06/28/2023, 06/10/2022, Additional history exists Colonoscopy 02/09/2025 Colorectal Cancer Screening 02/09/2025 Diabetes: Hemoglobin A1C 06/06/2025 025, 12/09/2024, 09/20/2024, Additional history exists Lipid Panel 07/30/2025 07/30/2024, 06/2023, 06/29/2021, Additional history exists Dental X-Ray: Full Mouth 02/07/2026 02/06/2023 SDOH Screening 02/25/2026 02/25/2025 Tobacco Screening 03/06/2026 03/06/2025 Mammogram 04/21/2026 04/21/2025, 12/0 05/2024, 04/19/2024, Additional history exists DTaP/Tdap/Td Vaccines (4 - Td or Tdap) [...] 140/90 Blood Pressure 142/68(2024 9:04 AM EDT) Ady Chan Hemoglobin A1c < 8 Result Component 7.7( 9:06 AM EDT) No Ady Araujo Note: Comorbidities: CHF, CKD, cirrhosis Help patients manage their type 2 diabetes Care Plan Help patients manage their type 2 diabetes No Lakshmi, Nazia, RN Weekly blood pressure task Care Plan Weekly blood pressure task No Nazia Martins RN Help patients manage their type 2 diabetes Care Plan Help patients manage their type 2 diabetes No Nazia Martins RN Patient has diabetic eye disease Care Plan Patient has diabetic eye disease No Nazia Martins RN Help patients manage their type 2 diabetes Care Plan Help patients manage their type 2 diabetes No Nazia Martins RN Patient has chronic kidney disease Care Plan Patient has chronic kidney disease No Nazia Martins RN Help patients manage their type 2 diabetes Care Plan Help patients manage their type 2 diabetes No Nazia Martins RN Patient has diabetic neuropathy Care Plan Patient has diabetic neuropathy No Nazia Martins RN Weekly blood pressure task Care Plan Weekly blood pressure task No Nazia Martins RN Weekly blood pressure task Care Plan Weekly blood pressure task No Nazia Martins RN Weekly blood pressure task Care Plan Weekly blood pressure task No Nazia Martins RN Patient has diabetic eye disease Care Plan Patient has diabetic eye disease No Nazia Martins RN Patient has diabetic eye disease Care Plan Patient has diabetic eye disease No Nazia Martins RN Patient has diabetic eye disease Care Plan Patient has diabetic eye disease No Nazia Martins RN Patient has chronic kidney disease Care Plan Patient has chronic kidney disease No Nazia Martins RN Patient has chronic kidney disease Care Plan Patient has chronic kidney disease No Nazia Martins RN Patient has chronic kidney disease Care Plan Patient has chronic kidney disease No Nazia Martins RN Patient has diabetic neuropathy Care Plan Patient has diabetic neuropathy No Nazia Martins RN Patient has diabetic neuropathy Care Plan Patient has diabetic neuropathy No Nazia Martins RN Patient has diabetic neuropathy Care Plan Patient has diabetic neuropathy No Nazia Martins RN Procedures Procedure Name Priority Date/Time Associated Diagnosis Comments POCT GLYCATED HEMOGLOBIN, TOTAL Routine 03/06/2025 9:06 AM EDT Type 2 diabetes mellitus with stage 3b chronic kidney disease, with long-term current use of insulin (HCC) POCT GLUCOSE Routine 03/06/2025 9:05 AM EDT Type 2 diabetes mellitus with stage 3b chronic kidney disease, with long-term current use of insulin (HCC) POCT MIRANDA-14 URINE DRUG SCREEN Routine 02/19/2025 9:12 AM EDT Long-term current use of opiate analgesic COMPREHENSIVE METABOLIC PANEL Routine 02/10/2025 12:53 PM EDT PROTHROMBIN TIME-INR Routine 02/10/2025 12:53 PM EDT CBC WITH AUTO DIFFERENTIAL Routine 02/10/2025 12:53 PM EDT LIPID PANEL, STANDARD Routine 07/30/2024 8:25 AM [...] to Health Maintenance Results * (ABNORMAL) POCT Hgb A1c (03/06/2025 9:06 AM EDT) Hemoglobin A1C 7.7(A) 4.0 - 5.7 % QC Media Lot # [id number] Lot# Expiration Date [id number] Blood 03/06/2025 9:06 AM EDT Angela Haley MD POINT OF CARE TEST EN TER/EDIT ORDERABLES Final Result * POCT Glucose (03/06/2025 9:05 AM EDT) Glucose Blood, POC 172 60 - 200 mg/dL QC Media Lot # [id number] Lot# Expiration Date 31,126 Blood Capillary blood specimen / Unknown 03/06/2025 9:05 AM EDT Angela Haley MD POINT OF CARE TEST EN TER/EDIT ORDERABLES Final Result * POCT MIRANDA-14 Urine Drug Screen (02/19/2025 9:12 AM EDT) [facility] THC Negative Negative Cocaine Screen, Urine Negative Negative Opiate Screen, Urine Negative Negative Methamphetamine Screen Urine Negative Negative Amphetamine Screen, Urine Negative Negative Benzodiazepines Screen, Urine Negative Negative Barbiturate Screen, Urine Negative Negative Methadone Screen, Urine Negative Negative Buprenophine Screen, Urine Negative Negative TCA, Urine Positive Negative MDMA Urine Negative Negative ng/mL Oxycodone Screen, Urine Positive Negative Phencyclidine (PCP), Urine Negative Negative Propoxyphene, Urine Negative Negative Fentanyl, Urine Negative Negative Urine Urine specimen obtained by clean catch procedure / Unknown 02/19/2025 9:12 AM EDT Narrative Nazia Martins RN - 02/19/2025 9:12 AM EDT UTOX cup Lot#[id number] Exp. 02/25/26 Internal Pass Control us Angela Haley MD POINT OF CARE TEST EN TER/EDIT ORDERABLES Final Result * (ABNORMAL) CBC auto differential (02/10/2025 12:53 PM EDT) [facility] White Blood Count 7.4 4.8 - 10.8 X10*3/uL [facility] Red Blood Count 4.18(L) 4.20 - 5.50 X10*6/uL [facility] Hemoglobin 11.8(L) 12.0 - 16.0 g/dl [facility] Hematocrit 34.9(L) 37.0 - 47.0 % [facility] Mean Corpuscular Volume 83.5 80.0 - 98.0 fL [facility] Mean Corpuscular Hemoglobin 28.2 27.0 - 33.0 pg [facility] Mean Corpuscular HGB Conc 33.8 31.0 - 35.0 g/dl [facility] Red Cell Distribution Width 13.7 11.0 - 16.0 % [facility] Platelet Count 180 160 - 400 X10*3/uL [facility] Mean Platelet Volume 9.6 9.4 - 12.3 fL [facility] Neutrophils Percent Auto 64.4 45 - 73 % [facility] Imm Gran Pct Auto 0.9(H) 0.0 - 0.4 % [facility] Lymphocytes Percent Auto 22.2 20 - 40 % [facility] Monocytes Percent Auto 8.9 2 - 11 % [facility] Eosinophils Percent Auto 3.1 0 - 4 % [facility] Basophils Percent Auto 0.5 0 - 2 % [facility] NRBC Pct Auto 0.0 0.0 - 0.2 /100WBC [facility] Neutrophils Absolute Auto 4.8 2.0 - 8.3 x10*3/uL [facility] Imm Gran Abs Auto 0.07(H) 0.00 - 0.03 X10*3/uL [facility] Lymphocytes Absolute Auto 1.7 1.2 - 4.9 X10*3/uL [facility] Monocytes Absolute Auto 0.7 0.1 - 1.2 X10*3/uL [facility] Eosinophils Absolute Auto 0.2 0.0 - 0.4 X10*3/uL [facility] Basophils Absolute Auto 0.0 0.0 - 0.2 X10*3/uL [facility] NRBC Abs Auto 0.000 0.0 - 0.012 X10*3/uL [facility] 02/10/2025 12:5 3 PM EDT 02/10/2025 12:53 PM EDT us Generic External Data Provider LAB BLOOD ORDERAB LES Final Result [facility] [address] [place] [phone] * (ABNORMAL) Prothrombin Time-INR (02/10/2025 12:53 PM EDT) Prothrombin Time 12.5(H) 10.9 - 12.4 SEC [facility] INTERNATIONAL NORM RATIO 1.1 0.9 - 1.1 [facility] Comment:INTERNATIONAL NORMAL IZED RATIO (INR) REFERENCE RANGES Reference RangeFor patients not on anticoagulant therapy: 0.9 - 1.1INR ranges for oral anticoagulanttherapy:For prevention and treatment of venous thrombosis and pulmonary embolism: 2.0 - 3.0For acute myocardial infarction with aspirin therapy: 2.0 - 3.0For acute myocardial infarction without aspirin therapy: 3.0 - 4.0For patients with mechanical prosthetic heart valves: 2.5 - 3.5 02/10/2025 12:5 3 PM EDT 02/10/2025 12:53 PM EDT us Generic External Data Provider LAB BLOOD ORDERAB LES Final Result [facility] [address] [place] [phone] * (ABNORMAL) Comprehensive Metabolic Panel (02/10/2025 12:53 PM EDT) Sodium 139 135 - 145 mmol/L [facility] Potassium 3.9 3.3 - 5.1 mmol/L [facility] Chloride 103 96 - 108 mmol/L [facility] Carbon Dioxide 27 22 - 29 mmol/L [facility] Anion Gap 13 12 - 20 [facility] Urea Nitrogen (BUN) 27(H) 9 - 16 mg/dL [facility] Creatinine, Serum 1.65(H) 0.5 - 1.4 mg/dL [facility] Estimated Glomerular Filt Rate 31 [facility] Comment:Chronic Kidney Disea se: Estimated GFR < 60 mL/min/1.50p1Yyoyea Kidney Disease: Estimated GFR < 15 mL/min/1.73m2 Glucose 191(H) 60 - 115 mg/dL [facility] Calcium 9.8 8.4 - 10.2 mg/dL [facility] Bilirubin, Total 0.5 0.0 - 1.0 mg/dL [facility] Aspartate Amino Transferase 36(H) 5 - 31 U/L [facility] Alanine Aminotransferase 28 0 - 31 U/L [facility] Total Protein 7.7 6.5 - 8.0 g/dL [facility] Albumin Level 4.3 3.5 - 5.0 g/dL [facility] Alkaline Phosphatase 142(H) 39 - 117 U/L [facility] 02/10/2025 12:5 3 PM EDT 02/10/2025 12:53 PM EDT us Generic External Data Provider LAB BLOOD ORDERAB LES Final Result [facility] [address] [place] [phone] * Lipid Panel, Standard (07/30/2024 8:25 AM EDT) Triglycerides 130 <150 mg/dL [facility] Comment:Desirable Triglyceri de: less than 150 mg/dLBorderline High Triglyceride 150-199 mg/dLHigh Triglyceride: 200-499 mg/dLVery High Triglyceride: greater than or equal to 5OO mg/dL Cholesterol 126 <200 mg/dL [facility] Comment:Desirable Cholestero l: less than 200 mg/dLBorderline High Cholesterol: 200-239 mg/dLHigh Cholesterol: greater than 239 mg/dL LDL Cholesterol Calculated 53 <100 mg/dL [facility] Comment:Desirable LDL: less than 100 mg/dLNear Optimal/Above Optimal LDL: 110- 129 mg/dLBorderline High LDL: 130-159 mg/dLHigh LDL: 160-189 mg/dLVery High LDL: greater than or equal to 190 mg/dL HDL Cholesterol 47 >40 mg/dL [facility] Comment:Desirable HDL: great er than 40 mg/dL Note: This HDL assay may give artificially low results in patients with liver disease. Blood Venous blood specimen / Unknown 07/30/2024 8:25 AM EDT 07/30/2024 8:25 AM EDT us Angela Haley MD LAB BLOOD ORDERABLES Final Result Performing Organization Address [facility] Co de Phone Number [facility] [address] [place] [address] [phone] * Hepatitis Panel, General (03/20/2023 11:30 AM EDT) Hepatitis A IgM Nonreactive Nonreactive [facility] Comment:IgM antibodies to [place] V not detected; does not exclude earlyacute or recovered HAV infection. ~Hepatitis B Surface Antibody NONREACTIVE Nonreactive [facility] Comment:Nonreactive: < 8.00 mIU/mL Hepatitis B Core Antibody Nonreactive Nonreactive [facility] Hepatitis C Antibody Nonreactive Nonreactive [facility] Comment:Antibodies to HCV no t detected; does not exclude early acuteHCV infection. Hepatitis B Surface Ag Negative Negative [facility] 03/20/2023 11:3 0 AM EDT 03/20/2023 11:32 AM EDT [facility] External Provider LAB BLO OD ORDERABLES Final Result Performing Organization Address [facility] Co de Phone Number [facility] [address] [place] [address] [phone] from Last 3 Months or Most Recently Relevant to Health Maintenance Additional Health Concerns Active Problems Noted Date Diagnosed Date Help patients manage their type 2 diabetes 04/04 Weekly blood pressure task 04/04/2025 Help patients manage their type 2 diabetes 04/04 Patient has diabetic eye disease 04/04/2025 Help patients manage their type 2 diabetes 04/04 Patient has chronic kidney disease 04/04/2025 Help patients manage their type 2 diabetes 04/04 Patient has diabetic neuropathy 04/04/2025 Weekly blood pressure task 04/04/2025 Weekly blood pressure task 04/04/2025 Weekly blood pressure task 04/04/2025 Patient has diabetic eye disease 04/04/2025 Patient has diabetic eye disease 04/04/2025 Patient has diabetic eye disease 04/04/2025 Patient has chronic kidney disease 04/04/2025 Patient has chronic kidney disease 04/04/2025 Patient has chronic kidney disease 04/04/2025 Patient has diabetic neuropathy 04/04/2025 Patient has diabetic neuropathy 04/04/2025 Patient has diabetic neuropathy 04/04/2025 Insurance [facility] INTERMEDIATE OPTIONS (O D-SNP) [facility] Care Teams Career Resource Specialist Relationship Specialty Start Date End Date Angela Luz MD [address] [place] [address] PCP - General Family Medicine 10/27/20 Ninfa Dietrich, LauraD [address] [place] [address] Pharmacist Internal Medicine 11/10/23 [employer] 12/20/23
--- OUTSIDE RECORDS SUMMARY | 2025-04-23 08:32 | XMS_ITS | Encounter Summary ---
Author Organization [employer] Address [address] 7[address] [place] [address] Care Team Providers Care Order Manager Name Role Phone Angela Luz MD Primary Care Provide r Ninfa Dietrich PharmD Unavailable [phone] Reason for Visit * Reason Comments Med Refill Encounter Details Date Type Department Care Team (Late st Contact Info) Description 03/24/2023 Refill [facility] [address] [place], [place] [phone] Angela Luz MD 230 [place], [place] [phone] Cervical spondylosis with radiculopathy Social History Tobacco [...] Description 05/12/2025 9:00 AM EST Medication Management [address] [address] Ninfa Dietrich PharmD [address] [place] [address] 05/30/2025 9:00 AM EST Telemedicine [address] [address] Nazia Martins RN documented as of this encounter Visit Diagnoses Diagnosis Cervical spondylosis with radiculopathy Cervical spondylosis with myelopathy documented in this encounter Care Teams Order Manager Relationship Specialty Start Date End Date Angela Luz MD [address] [place] [address] PCP - General Family Medicine 10/27/20 Ninfa Dietrich, LauraD [address] [place] [address] Pharmacist Internal Medicine 11/10/23 [employer] 12/20/23 documented as of this encounter
--- OUTSIDE RECORDS SUMMARY | 2025-04-23 08:32 | XMS_ITS | Encounter Summary ---
Author Organization [employer] Address [address] [facility] 7t [place] [address] Care Team Providers Care Adaptive Physical Education Teacher Name Role Phone Angela Luz MD Primary Care Provide r Ninfa Dietrich PharmD Unavailable Reason for Visit * Reason Comments Med Refill Encounter Details Date Type Department Care Team (Late Contact Info) Description 12/05/[address] [facility] [address] [place], [place] [phone] Gemini Lagunas MD 230 [place], [place] [phone] Type 2 diabetes mellitus with unspecified complications [...] Description 05/12/2025 9:00 AM EST Medication Management [facility] [address] [place], [place] [phone] Ninfa Dietrich PharmD [address] [place] [address] 05/30/2025 9:[address] [facility] [address] [place] [address] Nazia Martins, RN documented as of this encounter Visit Diagnoses Diagnosis Type 2 diabetes mellitus with unspecified complications (HCC) documented in this encounter Care Teams Adaptive Physical Education Teacher Relationship Specialty Start Date End Date Angela Luz MD [address] [place] [address] PCP - General Family Medicine 10/27/20 Ninfa Dietrich PharmD [address] [place] [address] Pharmacist Internal Medicine 11/10/23 [employer] 12/20/23 documented as of this encounter
--- OUTSIDE RECORDS SUMMARY | 2025-04-23 08:32 | XMS_ITS | Encounter Summary ---
Author Organization [email or web address] Address [address] 7t [place] [address] Care Team Providers Care Manager Rail Name Role Phone Angela Luz MD Primary Care Provide r Ninfa Dietrich PharmD Unavailable [phone] Encounter Details Date Type Department Care Team (Late st Contact Info) Description 04/18/2023 Abstract [facility] 230 [place], [place] [phone] Delia Ballard Social History Tobacco Use Types [...] Description 05/12/2025 9:00 AM EST Medication Management [address] [address] Ninfa Dietrich PharmD [address] [place] [address] 05/30/2025 9:00 AM EST Telemedicine [address] [address] Nazia Martins RN documented as of this encounter Visit Diagnoses Not on filedocumented in this encounter Care Teams Manager Rail Relationship Specialty Start Date End Date Angela uLz MD [address] [place] [address] PCP - General Family Medicine 10/27/20 Ninfa Dietrich PharmD [address] [place] [address] Pharmacist Internal Medicine 11/10/23 [employer] 12/20/23 documented as of this encounter
--- OUTSIDE RECORDS SUMMARY | 2025-04-23 08:32 | XMS_ITS | Encounter Summary ---
Author Organization [employer] Address [address] [facility] 7t [place] [address] Care Team Providers Care Funeral Professional Name Role Phone Angela Luz MD Primary Care Provide r Ninfa Dietrich PharmD Unavailable [phone] Reason for Visit * Reason Onset Date Comments Med Refill 02/28/2023 Encounter Details Date Type Department Care Team (Late st Contact Info) Description 02/28/2023 Refill [facility] 230 [place], [place] [phone] Angela Luz MD 230 [place], [place] [phone] Other chronic pain Social History Tobacco Use [...] Description 05/12/2025 9:00 AM EST Medication Management [address] [address] Ninfa Dietrich PharmD [address] [place] [address] 05/30/2025 9:00 AM EST Telemedicine [address] [address] Nazia Martins RN documented as of this encounter Visit Diagnoses Diagnosis Other chronic pain documented in this encounter Care Teams Funeral Professional Relationship Specialty Start Date End Date nAgela Luz MD [address] [place] [address] PCP - General Family Medicine 10/27/20 Ninfa Dietrich, PharmD [address] [place] [address] Pharmacist Internal Medicine 11/10/23 [employer] 12/20/23 documented as of this encounter
--- OUTSIDE RECORDS SUMMARY | 2025-04-23 08:32 | XMS_ITS | Encounter Summary ---
Author Organization [employer] Address [address] [facility] 7t [place] [address] Care Team Providers Care Brazing Machine Setter Name Role Phone Angela Luz MD Primary Care Provide r Ninfa Dietrich PharmD Unavailable [phone] Reason for Visit * Reason Comments Med Refill Encounter Details Date Type Department Care Team (Late st Contact Info) Description 07/20/2023 Refill [facility] 230 [place], [place] [phone] Angela Cornell MD 230 [place], [place] [phone] Social History Tobacco Use Types Packs/Day Years [...] 05/12/2025 9:00 AM EST Medication Management [address] [address] Ninfa Dietrich PharmD [address] [place] [address] 05/30/2025 9:00 AM EST Telemedicine [address] [phone] Nazia Martins RN documented as of this [...] on filedocumented in this encounter Care Teams Brazing Machine Setter Relationship Specialty Start Date End Date Angela Luz MD [address] [place] [address] [phone] PCP - General Family Medicine 10/27/20 Ninfa Dietrich PharmD [address] [place] [address] [phone] Pharmacist Internal Medicine 11/10/23 [employer] 12/20/23 documented as of this encounter
--- OUTSIDE RECORDS SUMMARY | 2025-04-23 08:32 | XMS_ITS | Encounter Summary ---
Author Organization [employer] Address [address] [facility] 7t [place] [address] Care Team Providers Care Adult Basic Studies Teacher Name Role Phone Angela Luz MD Primary Care Provide r Ninfa Dietrich PharmD Unavailable [phone] Reason for Visit * Reason Onset Date Comments Med Refill 10/09/2024 Encounter Details Date Type Department Care Team (Late st Contact Info) Description 10/09/2024 Refill [facility] 230 [place], [place] [phone] Angela Luz MD 230 [place], [place] [phone] Other chronic pain Social History Tobacco Use [...] Description 05/12/2025 9:00 AM EST Medication Management [address] [address] Ninfa Dietrich, LauraD [address] [place] [address] 05/30/2025 9:00 AM EST Telemedicine [address] [address] Nazia Martins RN documented as [...] pain documented in this encounter Care Teams Adult Basic Studies Teacher Relationship Specialty Start Date End Date Angela Luz MD [address] [place] [address] PCP - General Family Medicine 10/27/20 Ninfa Dietrich PharmD 230 [facility] [place] [address] Pharmacist Internal Medicine 11/10/23 [employer] 12/20/23 documented as of this encounter
--- OUTSIDE RECORDS SUMMARY | 2025-04-23 08:32 | XMS_ITS | Encounter Summary ---
Author Organization [employer] Address [address] [facility] [address] [facility] [address] 7t [place] [address] Care Team Providers Care Ruby Rails Developer Name Role Phone Angela Luz MD Primary Care Provide r Ninfa Dietrich PharmD Unavailable [phone]- [phone] Reason for Visit * Reason Onset Date Comments Med Refill 12/04/2023 Encounter Details Date Type Department Care Team (Late st Contact Info) Description 12/04/2023 Refill [facility] 230 [place], [place] [phone] Angela Luz MD 230 [place], [place] [phone] Other chronic pain Social History Tobacco Use [...] Description 05/12/2025 9:00 AM EST Medication Management [address] [address] Ninfa Dietrich PharmD [address] [place] [address] 05/30/2025 9:00 AM EST Telemedicine [address] [address] Nazia Martins RN documented as of this [...] pain documented in this encounter Care Teams Ruby Rails Developer Relationship Specialty Start Date End Date Angela Luz MD [address] [place] [address] PCP - General Family Medicine 10/27/20 Ninfa Dietrich PharmD 230 [place] [address] Pharmacist Internal Medicine 11/10/23 [employer] 12/20/23 documented as of this encounter
--- OUTSIDE RECORDS SUMMARY | 2025-04-23 08:32 | XMS_ITS | Encounter Summary ---
Author Organization [employer] Address [address] [facility] [address] 7t [place] [address] Care Team Providers Care Executive Vice President And Chief Operating Officer Name Role Phone Angela Luz MD Primary Care Provide r Ninfa Dietrich PharmD Unavailable [phone] Reason for Visit * Reason Onset Date Comments Med Refill 03/14/2024 Encounter Details Date Type Department Care Team (Late st Contact Info) Description 03/14/2024 Refill [facility] 230 [place], [place] [phone] Angela Luz MD 230 [place], [place] [phone] Social History Tobacco Use Types Packs/Day Years [...] Description 05/12/2025 9:00 AM EST Medication Management [address] [address] Ninfa Dietrich PharmD [address] [place] [address] 05/30/2025 9:00 AM EST Telemedicine [address] [address] Nazia Martins RN documented as of this [...] on filedocumented in this encounter Care Teams Executive Vice President And Chief Operating Officer Relationship Specialty Start Date End Date Angela Luz MD [address] [place] [address] PCP - General Family Medicine 10/27/20 Ninfa Dietrich PharmD [address] [place] [address] Pharmacist Internal Medicine 11/10/23 [employer] 12/20/23 documented as of this encounter
--- OUTSIDE RECORDS SUMMARY | 2025-04-23 08:32 | XMS_ITS | Encounter Summary ---
Author Organization [employer] Address [address] [facility] 7t [place] [address] Care Team Providers Care Speech Pathology Supervisor Name Role Phone Angela Luz MD Primary Care Provide r Ninfa Dietrich PharmD Unavailable Reason for Visit * Reason Comments Med Refill Encounter Details Date Type Department Care Team (Late st Contact Info) Description 12/05/2022 Refill [facility] [address] [place] [address] Angela Luz MD 230 [place], [place] [phone] Diabetic polyneuropathy associated with type 2 diabetes [...] Description 05/12/2025 9:00 AM EST Medication Management [facility] [address] [place] [address] Ninfa Dietrich PharmD 230 [place] [address] 05/30/2025 9:00 AM EST Telemedicine [facility] 230 [place] [address] Nazia Martins RN documented as of this encounter Visit Diagnoses Diagnosis Diabetic polyneuropathy associated with type 2 diabetes mellitus (HCC) Primary hypertension Unspecified essential hypertension Chronic right-sided thoracic back pain documented in this encounter Care Teams Speech Pathology Supervisor Relationship Specialty Start Date End Date Angela Luz MD [address] [place] [address] PCP - General Family Medicine 10/27/20 Ninfa Dietrich PharmD [address] [place] [phone] Pharmacist Internal Medicine 11/10/23 [employer] 12/20/23 documented as of this encounter
--- OUTSIDE RECORDS SUMMARY | 2025-04-23 08:32 | XMS_ITS | Encounter Summary ---
Author Organization [employer] Address [address] [facility] 7t [place] [address] Care Team Providers Care Water Taxi Captain Name Role Phone Angela Luz MD Primary Care Provide r Ninfa Dietrich PharmD Unavailable [phone] Reason for Visit * Reason Comments Med Refill Encounter Details Date Type Department Care Team (Late st Contact Info) Description 10/26/2022 Refill [facility] 230 [place], [place] [phone] Angela Luz MD 230 [place], [place] [phone] Type 2 diabetes mellitus with other specified complication, unspecified whether intermediate project manager insulin use ([facility]) Social History Tobacco [...] Description 05/12/2025 9:00 AM EST Medication Management [address] [address] Ninfa Dietrich PharmD [address] [place] [address] 05/30/2025 9:00 AM EST Telemedicine [address] [address] Nazia Martins RN documented as of this encounter Visit Diagnoses Diagnosis Type 2 diabetes mellitus with other specified complication, unspecified whether fpc insulin use (HCC) documented in this encounter Care Teams Water Taxi Captain Relationship Specialty Start Date End Date Angela Luz MD [address] [place] [address] PCP - General Family Medicine 10/27/20 Ninfa Dietrich PharmD [address] [place] [address] Pharmacist Internal Medicine 11/10/23 [employer] 12/20/23 documented as of this encounter
--- OUTSIDE RECORDS SUMMARY | 2025-04-23 08:33 | XMS_ITS | Encounter Summary ---
Author Organization [employer] Address [address] [facility] 7t [place] [address] Care Team Providers Care Front Office Supervisor Name Role Phone Angela Luz MD Primary Care Provide r Ninfa Dietrich PharmD Unavailable Reason for Visit * Reason Comments Med Refill Encounter Details Date Type Department Care Team ([facility] Contact Info) Description 06/30/2022 Refill [facility] [address] [place], [place] [phone] Balwinder Kumar MD 230 [place], [place] [phone] Social History Tobacco Use Types Packs/Day Years [...] Upcoming Encounters Date Type Department Care Team ([facility] Contact Info) Description 05/12/2025 9:00 AM EST Medication Management [facility] [address] [place] [address] Ninfa Dietrich PharmD [address] [place] [address] 05/30/2025 9:00 AM EST Telemedicine [address] [address] Nazia Martins RN documented as of this encounter Visit Diagnoses Not on filedocumented in this encounter Care Teams Front Office Supervisor Relationship Specialty Start Date End Date Angela Luz MD [address] [place] [address] PCP - General Family Medicine 10/27/20 Ninfa Dietrich, Shadia [address] [place] [address] Pharmacist Internal Medicine 11/10/23 [employer] 12/20/23 documented as of this encounter
--- OUTSIDE RECORDS SUMMARY | 2025-04-23 08:33 | XMS_ITS | Encounter Summary ---
Author Organization [employer] Address [address] [facility] [address] 7[address] [place] [address] Care Team Providers Care Prepared Foods Service Team Member Name Role Phone Angela Luz MD Primary Care Provide r Ninfa Dietrich PharmD Unavailable [phone] Reason for Visit * Reason Comments Med Refill Encounter Details Date Type Department Care Team ([facility] st Contact Info) Description 11/08/[address] [facility] [address] [place], [place] [phone] Angela Luz MD 230 [place], [place] [phone] Other chronic pain Social History Tobacco Use [...] 05/12/2025 9:00 AM EST Medication Management [address] [address] Ninfa Dietrich PharmD [address] [place] [address] 05/30/2025 9:00 AM EST Telemedicine [address] [address] Nazia Martins RN documented as of this [...] pain documented in this encounter Care Teams Prepared Foods Service Team Member Relationship Specialty Start Date End Date Angela Luz MD [address] [place] [address] PCP - General Family Medicine 10/27/20 Ninfa Dietrich, Shadia [address] [place] [address] Pharmacist Internal Medicine 11/10/23 [employer] 12/20/23 documented as of this encounter
--- OUTSIDE RECORDS SUMMARY | 2025-04-23 08:33 | XMS_ITS | Encounter Summary ---
Author Organization [employer] Address [address] [facility] 7t [place] [address] Care Team Providers Care Field Marketing Specialist Name Role Phone Angela Luz MD Primary Care Provide r Ninfa Dietrich PharmD Unavailable [phone]- [phone] Reason for Visit * Reason Comments Med Refill Encounter Details Date Type Department Care Team ([facility] st Contact Info) Description 04/16/2025 Refill [facility] MEDICINE [address] [place], [place] [phone] Angela Luz MD [address] [place], [place] [phone] Diabetic polyneuropathy associated with type 2 diabetes mellitus (HCC) Social History Tobacco Use Types Packs/Day [...] housing situation today? I have calos carmen 02/25/[address] you li [...] Description 05/12/2025 9:00 AM EST Medication Management [address] [address] Ninfa Dietrich, PharmD [address] [place] [address] 05/30/2025 9:00 AM EST Telemedicine [address] [address] Nazia Martins, RN documented as of this encounter Goals Goal Patient Goal Type Associated Problems Recent Progress Patient-Stated? Author Blood Pressure < 140/90 Blood Pressure 142/68(2024 9:04 AM EDT) Ady Chan Hemoglobin A1c < 8 Result Component 7.7( 9:06 AM EDT) Ady Chan Note: Comorbidities: CHF, CKD, cirrhosis Help patients manage their type 2 diabetes Care Plan Help patients manage their type 2 diabetes No LakshmiNazia oneal RN Weekly blood pressure task Care Plan Weekly blood pressure task No Nazia Martins RN Help patients manage their type 2 diabetes Care Plan Help patients manage their type 2 diabetes Nazia Ramírez RN Patient has diabetic eye disease Care Plan Patient has diabetic eye disease Nazia Ramírez RN Help patients manage their type 2 diabetes Care Plan Help patients manage their type 2 diabetes Nazia Ramírez RN Patient has chronic kidney disease Care Plan Patient has chronic kidney disease Nazia Ramírez RN Help patients manage their type 2 [...] Care Plan Patient has chronic kidney disease Nazia Ramírez RN Patient has chronic kidney disease Care Plan Patient has chronic kidney disease Nazia Ramírez RN Patient has chronic kidney disease Care Plan Patient has chronic kidney disease Nazia Ramírez RN Patient has diabetic neuropathy Care Plan Patient has diabetic neuropathy Nazia Ramírez RN Patient has diabetic neuropathy Care Plan Patient has diabetic neuropathy No Nazia Martins RN Patient has diabetic neuropathy Care Plan Patient has diabetic neuropathy Nazia Ramírez RN documented as of this encounter Visit Diagnoses Diagnosis Diabetic polyneuropathy associated with type 2 diabetes mellitus (HCC) documented in this encounter Additional Health Concerns Active Problems Noted Date [...] neuropathy 04/04/2025 Patient has diabetic neuropathy 04/04/2025 documented as of this encounter Care Teams Field Marketing Specialist Relationship Specialty Start Date End Date Angela Luz MD [address] [place] [address] PCP - General Family Medicine 10/27/20 Ninfa Dietrich PharmD [address] [place] [address] Pharmacist Internal Medicine 11/10/23 [employer] 12/20/23 documented as of this encounter
--- OUTSIDE RECORDS SUMMARY | 2025-04-23 08:33 | XMS_ITS | Clinical Summary ---
Author Organization [facility] Address [address] [place] [address] Phone Care Team Providers Care Career Services Coordinator Name Role Phone Angela Luz MD [...] 1 Active hydrALAZINE 50 MG tablet Take 25 mg by mouth in the morning and 25 mg at noon and 25 mg in the evening. Take with meals. 1 Active isosorbide dinitrate (ISORDIL) 20 MG [...] 3 Active calcitriol (ROCALTROL) 0.25 MCG capsule Take 1 capsule (0.25 mcg total) by mouth every other day TAKE 1 CAPSULE BY MOUTH EVERY OTHER DAY IN THE MORNING 45 capsule 5 Active torsemide (DEMADEX) 20 MG tabletIndicati ons:Hypertensi on,Type 2 diabetes mellitus with diabetic chronic kidney disease (HCC),Anemia in chronic kidney disease,Iron deficiency anemia, not otherwise specified TAKE 1 TABLET BY MOUTH TWICE DAILY IN THE MORNING AND IN THE EVENING 180 tablet 2 5 Active Farxiga 10 MG tablet TAKE 1 TABLET BY MOUTH EVERY MORNING 90 tablet 3 5 Active Farxiga 10 MG tablet TAKE 1 TABLET BY MOUTH EVERY MORNING 90 tablet 3 4 04/16/20 25 Discontinued Active Problems Problem Noted Date [...] (07/20/2020): Methacholine challenge (+) Insomnia 10/05/2016 01/11/2021 Pain of shoulder region 09/16/201612/21 Overview (07/20/2020): 2011 - right shoulder pain; complete rotator cuff tear s/p surgery Venous insufficiency of leg 02/10/2014 01/11/2021 Overview (07/20/2020): S/p right endovenous ablation 2013 Allergic rhinitis 09/18/2012 01/11/2021 Solitary pulmonary nodule 06/11/2012 Overview (07/20/2020): 01/[address] in [place] Last CT (abd) 06/02/12 - 5x7 pulm nodule, recommended rpt CT to confirm 2 years of stability. Obstructive sleep apnea 01/31/201212/21 Restless legs 10/06/2011 01/11/2021 Glaucoma 02/15/2011 01/11/2021 Hyperlipidemia 02/15/2011 01/11/2021 Encounters Date Type Department Care Team Description 04/16/2025 Refill [facility] [address] [place] [address] Beau Vargas MD 03/24/2025 Refill [facility] [address] [place] [address] Beau Vargas MD Hypertension; Type 2 diabetes mellitus with diabetic chronic kidney disease (HCC); Anemia in chronic kidney disease; Iron deficiency anemia, not otherwise specified from Last 3 Months Immunizations Immunization Administration Dates Next Due HepB-CpG 12/07/2023,08/21/2023 Hepatitis A 12/11/2023 Hepatitis B 12/11/2023 Influenza Split High Dose Pr eservative Free IM 03/26/2024 Influenza TIV (IM) 05/02/2016, 5,04/24/2014,03/28,02/13/2012 Influenza, MDCK, PF, Quadrivalent 03/21/2019 Influenza, MDCK, Quadrivalen t, with preservative 04/19/2017 Influenza, Quadrivalent, Pre servative Free 03/14/2020 Influenza, Trivalent, Adjuvanted 016,02/23/2015,04/24/2014,03/28,02/13/2012 Influenza, Unspecified 02/26/2021,03/21/2019, Pfizer SARS-COV-2 06/10/2022,,03/02/2021,07/30,07/08/2020,07/02/2020 Pneumococcal Conjugate 13-Valent 03/30/2021 Pneumococcal Conjugate Pcv 20 06/28/2023 Pneumococcal Polysaccharide 05/08/2017, 5 Shingrix 07/20/2023,03/30/2021 Tdap 08/21/2023,03/28/2013,08/21/2012 Family History Medical History Relation Comments Diabetes [...] Sign Reading Time Taken Comments Blood Pressure 119/44 12/30/2024 2:52 PM EDT Pulse 68 12/30/2024 2:52 PM EDT Temperature - - Respiratory Rate - - Oxygen Saturation 98% 12/30/2024 2:52 PM EDT Inhaled Oxygen Concentration - - Weight 61 kg (134 lb 6.4 oz) 12/30/2024 2:52 PM EDT Height 144.8 cm (4' 9 ) 03/30/2020 12:00 PM EST Body Mass Index 29.08 03/30/2020 12:00 PM EST Plan of Treatment Upcoming Encounters Date Type Department Care Team (Late st Contact Info) Description 07/21/2025 1:30 PM EST Office Visit [facility] [address] [place] [address] Beau Vargas MD [address] [facility] [address] [place] [address] Health Maintenance Due Date Last Done Comments Breast Cancer Screening 1955 Colorectal Cancer Screening: Annual FOBT 10/24/2003 Colorectal Cancer Screening: Colonoscopy 10/24/2003 Colorectal Cancer Screening: Sigmoidoscopy 10/24/2003 Diabetes: Ophthalmology Exam 06/18/2020 Diabetes: Pedal Pulse Checked 06/18/2020 Diabetes: Sensory Foot Exam 06/18/2020 Diabetes: Visual Foot Exam 06/18/2020 Hepatitis B Vaccine (3 of 3 - 19+ 3-dose series) 02/20/2024 12/11/2023, 12/07/2023, 08/21/2023 Diabetes: Hemoglobin A1C 06/06/2025 025, 12/09/2024, 09/20/2024, Additional history exists Pneumococcal Vaccine: 50+ Years Completed 06/28/2023, 03/30/2021, 05/08/2017, Additional history exists Pneumococcal Vaccine: Peds ( 0 to 5 Years) and At-Risk Patients (6 to 49 Years) Discontinued 06/28/2023, 03/30/2021, 05/08/2017, Additional history exists Influenza Vaccine Completed 02/17/2025, , 02/26/2021, Additional history exists Insurance [facility] MCR ([id number]) [facility] MCR ([id number]) RELL [place] [phone] Care Teams Career Services Coordinator Relationship Specialty Start Date End Date Angela Luz MD [address] [place] [address] [place] [phone] PCP - General Internal Medicine 01/12/21
--- OUTSIDE RECORDS SUMMARY | 2025-04-23 08:33 | XMS_ITS | Encounter Summary ---
Author Organization [employer] Address [address] [facility] [address] 7t [place] [address] Care Team Providers Care Ceramics Artist Name Role Phone Angela Luz MD Primary Care Provide r Ninfa Dietrich PharmD Unavailable [phone] Reason for Visit * Reason Onset Date Comments Med Refill 05/30/2023 Encounter Details Date Type Department Care Team (Late st Contact Info) Description 05/30/2023 Refill [facility] CHC MED & PEDS [address] [place], [place] [phone] Angela Luz MD [address] [place], [place] [phone] Primary hypertension Social History Tobacco Use Types [...] Description 05/12/2025 9:00 AM EST Medication Management [address] [address] Ninfa Dietrich PharmD [address] [place] [address] 05/30/2025 9:00 AM EST Telemedicine [address] [address] Nazia Martins RN documented as of this encounter Visit Diagnoses Diagnosis Primary hypertension Unspecified essential hypertension documented in this encounter Care Teams Ceramics Artist Relationship Specialty Start Date End Date Angela Luz MD [address] [place] [address] PCP - General Family Medicine 10/27/20 Ninfa Dietrich PharmD [address] [place] [phone] Pharmacist Internal Medicine 11/10/23 [employer] 12/20/23 documented as of this encounter
--- OUTSIDE RECORDS SUMMARY | 2025-04-23 08:33 | XMS_ITS | Encounter Summary ---
Author Organization [employer] Address [address] [facility] 7t [place] [address] Care Team Providers Care Coding Auditor Name Role Phone Angela Luz MD Primary Care Provide r Ninfa Dietrich PharmD Unavailable [phone] Reason for Visit * Reason Comments Med Refill Encounter Details Date Type Department Care Team (Late Contact Info) Description 06/30/2022 Refill [facility] CHC MED & PEDS [address] [place] [address] Yunier Mohr MD 230 [place] [address] Seasonal allergic rhinitis, unspecified trigger Social History [...] Description 05/12/2025 9:00 AM EST Medication Management [facility] MEDICINE [address] [place] [address] Ninfa Dietrich PharmD [address] [place] [address] 05/30/2025 9:00 AM EST Telemedicine [facility] MEDICINE [address] [place] [address] Nazia Martins RN documented as of this encounter Visit Diagnoses Diagnosis Seasonal allergic rhinitis, unspecified trigger documented in this encounter Care Teams Coding Auditor Relationship Specialty Start Date End Date Angela Luz MD [address] [place] [address] PCP - General Family Medicine 10/27/20 Ninfa Dietrich PharmD [address] [place] [address] Pharmacist Internal Medicine 11/10/23 [employer] 12/20/23 documented as of this encounter
--- OUTSIDE RECORDS SUMMARY | 2025-04-23 08:33 | XMS_ITS | Encounter Summary ---
Author Organization [employer] Address [address] [facility] 7t [place] [address] Care Team Providers Care Vmware Systems Administrator Name Role Phone Angela Luz MD Primary Care Provide r Ninfa Dietrich PharmD Unavailable [phone] Reason for Visit * Reason Comments Med Refill Encounter Details Date Type Department Care Team (Late st Contact Info) Description 01/11/2025 Refill [facility] MEDICINE 230 [place], [place] [phone] Angela Luz MD [address] [place], [place] [phone] Diabetic polyneuropathy associated with type 2 diabetes mellitus ([facility]/HCC) Social History Tobacco Use Types Packs/Day Years [...] Patient Health Questionnaire-2 Score 6 12/26/2023 Comments No Sex and Gender Information Value [...] Description 05/12/2025 9:00 AM EST Medication Management [address] [address] Ninfa Dietrich, PharmD [address] [place] [address] 05/30/2025 9:00 AM EST Telemedicine [address] [address] Nazia Martins RN documented as of this [...] (HCC) documented in this encounter Care Teams Vmware Systems Administrator Relationship Specialty Start Date End Date Angela Luz MD 230 [place] [address] PCP - General Family Medicine 10/27/20 Ninfa Dietrich, LauraD 230 [place] [address] Pharmacist Internal Medicine 11/10/23 [employer] 12/20/23 documented as of this encounter
--- OUTSIDE RECORDS SUMMARY | 2025-04-23 08:33 | XMS_ITS | Encounter Summary ---
Author Organization [employer] Address [address] [facility] [address] 7t [place] [address] Care Team Providers Care Tobacco Drummer Name Role Phone Angela Luz MD Primary Care Provide r Ninfa Dietrich PharmD Unavailable Reason for Visit * Reason Comments Med Refill Encounter Details Date Type Department Care Team (Late st Contact Info) Description 08/29/2024 Refill [facility] MEDICINE 230 [place], [place] [phone] Ninfa Dietrich, PharmD [address] [place], [place] [phone] Type 2 diabetes mellitus with hyperglycemia, with long-term current use of insulin ([facility]) Social History Tobacco Use Types Packs/Day Years [...] Description 05/12/2025 9:00 AM EST Medication Management [facility] MEDICINE [address] [place] [address] Ninfa Dietrich PharmD [address] [place] [address] 05/30/2025 9:00 AM EST Telemedicine [facility] MEDICINE [address] [place] [address] Nazia Martins, RN documented as of this encounter Goals Goal Patient Goal Type Associated Problems Recent Progress Patient-Stated? Author Blood Pressure < 140/90 Blood Pressure 142/68(2024 9:04 AM EDT) No Ady Araujo Hemoglobin A1c < 8 Result Component 7.7( 5 9:06 AM EDT) No Ady Araujo Note: Comorbidities: CHF, CKD, cirrhosis documented as of this encounter Visit Diagnoses Diagnosis Type 2 diabetes mellitus with hyperglycemia, with long-term current use of insulin (HCC) documented in this encounter Care Teams Tobacco Drummer Relationship Specialty Start Date End Date Angela Luz MD [address] [place] [address] PCP - General Family Medicine 10/27/20 Ninfa Dietrich PharmD [address] [place] [address] Pharmacist Internal Medicine 11/10/23 [employer] 12/20/23 documented as of this encounter
--- OUTSIDE RECORDS SUMMARY | 2025-04-23 08:33 | XMS_ITS | Encounter Summary ---
Author Organization [employer] Address [address] [facility] [address] 7t [place] [address] Care Team Providers Care Hole Puncher Strap Name Role Phone Angela Luz MD Primary Care Provide r Ninfa Dietrich PharmD Unavailable [phone] Reason for Visit * Reason Comments Med Refill Encounter Details Date Type Department Care Team ([facility] st Contact Info) Description 07/31/2024 Refill [facility] MEDICINE 230 [place], [place] [phone] Angela Luz MD 230 [place], [place] [phone] Other chronic pain Social History Tobacco Use [...] 05/12/2025 9:00 AM EST Medication Management [address] [address] Ninfa Dietrich PharmD [address] [place] [address] 05/30/2025 9:00 AM EST Telemedicine [address] [address] Nazia Martins RN documented as of this [...] pain documented in this encounter Care Teams Hole Puncher Strap Relationship Specialty Start Date End Date Angela Luz MD [address] [place] [address] PCP - General Family Medicine 10/27/20 Ninfa Dietrich, Shadia [address] [place] [address] Pharmacist Internal Medicine 11/10/23 [employer] 12/20/23 documented as of this encounter
--- OUTSIDE RECORDS SUMMARY | 2025-04-23 08:33 | XMS_ITS | Encounter Summary ---
Author Organization [employer] Address [address] [facility] [address] 7t [place] [address] Care Team Providers Care Factory Lay Out Engineer Name Role Phone Angela Luz MD Primary Care Provide r Ninfa Dietrich PharmD Unavailable [phone] Reason for Visit * Reason Onset Date Comments Med Refill 05/30/2023 Encounter Details Date Type Department Care Team (Late st Contact Info) Description 05/30/2023 Refill [facility] CHC MED & PEDS [address] [place], [place] [phone] Balwinder Kumar MD [address] [facility] [place], [place] [phone] Seasonal allergic rhinitis, unspecified trigger Social History [...] Description 05/12/2025 9:00 AM EST Medication Management [address] [address] Ninfa Dietrich PharmD [address] [place] [address] 05/30/2025 9:00 AM EST Telemedicine [address] [address] Nazia Martins RN documented as of this encounter Visit Diagnoses Diagnosis Seasonal allergic rhinitis, unspecified trigger documented in this encounter Care Teams Factory Lay Out Engineer Relationship Specialty Start Date End Date Angela Luz MD [address] [place] [address] PCP - General Family Medicine 10/27/20 Ninfa Dietrich PharmD [address] [place] [address] [phone] Pharmacist Internal Medicine 11/10/23 [employer] 12/20/23 documented as of this encounter
--- OUTSIDE RECORDS SUMMARY | 2025-04-23 08:33 | XMS_ITS | Encounter Summary ---
Author Organization [employer] Address [address] [facility] 7t [place] [address] Care Team Providers Care Watchguard Name Role Phone Angela Luz MD Primary Care Provide r Ninfa Dietrich PharmD Unavailable [phone] Reason for Visit * Reason Onset Date Comments Med Refill 05/30/2023 Encounter Details Date Type Department Care Team (Late st Contact Info) Description 05/30/2023 Refill [facility] MEDICINE 230 [place], [place] [phone] Angela Luz MD 230 [place], [place] [phone] Type 2 diabetes mellitus with other specified [...] 05/12/2025 9:00 AM EST Medication Management [address] [address] Ninfa Dietrich PharmD [address] [place] [address] 05/30/2025 9:00 AM EST Telemedicine [address] [address] Nazia Martins RN documented as of this encounter Visit Diagnoses Diagnosis Type 2 diabetes mellitus with other specified complication, unspecified whether fpc insulin use (HCC) Type 2 diabetes mellitus with stage 3 chronic kidney disease, with long-term current use of insulin, unspecified whether stage 3a or 3b CKD (HCC) Other chronic pain documented in this encounter Care Teams Watchguard Relationship Specialty Start Date End Date Angela Luz MD [address] [place] [address] PCP - General Family Medicine 10/27/20 Ninfa Dietrich, PharmD 230 [place] [address] Pharmacist Internal Medicine 11/10/23 [employer] 12/20/23 documented as of this encounter
--- OUTSIDE RECORDS SUMMARY | 2025-04-23 08:33 | XMS_ITS | Encounter Summary ---
Author Organization [employer] Address [address] [facility] 7t [place] [address] Care Team Providers Care Wire Annealer Name Role Phone Angela Luz MD Primary Care Provide r Ninfa Dietrich PharmD Unavailable [phone] Reason for Visit * Reason Comments Med Refill Encounter Details Date Type Department Care Team (Late st Contact Info) Description 08/22/2024 Refill [facility] MEDICINE 230 [place], [place] [phone] Angela Luz MD 230 [place], [place] [phone] Diabetic polyneuropathy associated with type 2 diabetes mellitus ([facility]/HCC) Social History Tobacco Use Types Packs/Day Years [...] Description 05/12/2025 9:00 AM EST Medication Management [address] [address] Ninfa Dietrich, PharmD [address] [place] [address] 05/30/2025 9:00 AM EST Telemedicine [address] [address] Nazia Martins RN documented as of this [...] (HCC) documented in this encounter Care Teams Wire Annealer Relationship Specialty Start Date End Date Angela Luz MD 230 [place] [address] PCP - General Family Medicine 10/27/20 Ninfa Dietrich, LauraD 230 [place] [address] Pharmacist Internal Medicine 11/10/23 [employer] 12/20/23 documented as of this encounter
--- OUTSIDE RECORDS SUMMARY | 2025-04-23 08:33 | XMS_ITS | Encounter Summary ---
Author Organization [employer] Address [address] [facility] 7t [place] [address] Care Team Providers Care Journeyman Apprentice Electricians Name Role Phone Angela Luz MD Primary Care Provide r Ninfa Dietrich PharmD Unavailable [phone] Reason for Visit * Reason Comments Med Refill Encounter Details Date Type Department Care Team (Late st Contact Info) Description 01/06/[address] [facility] MEDICINE 230 [place], [place] [phone] Angela Luz MD [address] [place], [place] [phone] Other chronic pain; Chronic right shoulder pain Social History Tobacco Use Types Packs/Day [...] Description 05/12/2025 9:00 AM EST Medication Management [address] [address] Ninfa Dietrich, PharmD [address] [place] [address] 05/30/2025 9:00 AM EST Telemedicine [address] [address] Nazia Martins RN documented as of this encounter Goals Goal Patient Goal Type Associated Problems Recent Progress Patient-Stated? Author Blood Pressure < 140/90 Blood Pressure 142/68(2024 9:04 AM EDT) No Ady Araujo Hemoglobin A1c < 8 Result Component 7.7( 9:06 AM EDT) No Ady Araujo Note: Comorbidities: CHF, CKD, cirrhosis documented as of this encounter Visit Diagnoses Diagnosis Other chronic pain Chronic right shoulder pain Pain in joint, shoulder region documented in this encounter Care Teams Journeyman Apprentice Electricians Relationship Specialty Start Date End Date Angela Luz MD [address] [place] [address] PCP - General Family Medicine 10/27/20 Ninfa Dietrich, Shadia [address] [place] [address] Pharmacist Internal Medicine 11/10/23 [employer] 12/20/23 documented as of this encounter
== END 2025-04-23 08:43 | disposition home or self-care (01) ==
LOC: HO.HOS 08:23
PROVIDERS: PCP Internal Medicine; Visit Provider Orthopaedic Surgery
DX: M25.512 Pain in left shoulder (principal)
CPT/HCPCS: 20610; 99213

== ENCOUNTER → 2025-04-23 08:22 | Outpatient (BNVA) | payer OTHER, SELFPAY | PROVIDERS: PCP Internal Medicine; Visit Provider Orthopaedic Surgery | DX: M25.512 Pain in left shoulder (principal) | CPT/HCPCS: 20610; 99212; J1010; J2003 ==

== ENCOUNTER 2025-05-01 07:36 | Outpatient (REF) | payer OTHER, SELFPAY ==
--- NOTE | ~2025-05-01 | US_ITS ---
EXAMINATION: US ABDOMEN LIMITED WITH LIVER ELASTOGRAPHY CLINICAL INFORMATION: -Nonalcoholic steatohepatitis. ([facility]) COMPARISON: Abdomen US with elastography 08/08/2024, 12/22/2023 TECHNIQUE: Real-time imaging of the abdominal viscera. Noninvasive ultrasound liver fibrosis assessment is performed using Siemens point quantification shear wave elastography (2D-SWE) with a C5-2 MHz transducer. Multiple elastography samples are obtained. FINDINGS: PANCREAS: The visualized pancreatic head and body are normal in appearance. The remainder of the pancreas is obscured from visualization by the overlying bowel gas. LIVER: The liver demonstrates normal size, contour and increased and mildly coarsened echogenicity. No focal lesion or intrahepatic biliary duct dilatation. The right lobe measures 16.8 cm in length. The left lobe measures 11.3 cm in length. Portal flow is towards the liver (hepatopetal). Shear wave liver elastography median stiffness is 2.00 m/s (reference: normal median stiffness is 1.3 m/s or less). (Previously measuring 1.38 m/s). IQR/median stiffness to assess sampling precision is 0.17 (reference: good quality data set is IQR/median stiffness of 0.30 or less). This indicates a quality data set. GALLBLADDER: Surgically absent. COMMON BILE DUCT: Normal in caliber measuring 0.4 cm in diameter. RIGHT KIDNEY: No hydronephrosis. No renal calculi or suspicious focal parenchymal lesions. The kidney measures 10.0 cm in maximum dimension. There is a mid pole lateral simple cyst measuring 0.6 x 0.5 x 0.4 cm. FREE FLUID: None. US/US abdomen milan w elastography IMPRESSION: 1. Mildly diffusely increased and coarsened hepatic echogenicity, in keeping with steatosis and/or hepatocellular disease. No focal suspicious lesion. 2. Liver elastography: Measurements are suggestive of compensated advanced chronic liver disease but need further test for confirmation. When compared with prior exam, there is a statistically significant increase in liver stiffness (increase at least 10%). 3. Cholecystectomy. 4. No biliary dilatation. 5. Essentially normal right kidney. --- REFERENCE: Society of Radiologists in Ultrasound Liver Stiffness Thresholds (2020): LIVER STIFFNESS THRESHOLDS: *Liver Stiffness equal or less than 1.3 m/s: High probability of being normal. *Liver Stiffness less than 1.7 m/s: In the absence of other known clinical signs, rules out compensated advanced chronic liver disease. *Liver Stiffness 1.7-2.1 m/s: Suggestive of compensated advanced chronic liver disease but need further test for confirmation. *Liver Stiffness over 2.1 m/s: Rules in compensated advanced chronic liver disease. *Liver Stiffness over 2.4 m/s: Suggestive of clinically significant portal hypertension. QUALITY OF DATA SET: *IQR/Median value equal or less than 0.30 implies a quality data set. *IQR/Median value over 0.30 implies a poor quality data set. SIGNIFICANT CHANGE FROM PRIOR EXAM: Significant change if liver stiffness measurement is 10% or greater from prior exam. OTHER CONSIDERATIONS: The stage of liver fibrosis may be overestimated in the setting of acute hepatitis, liver inflammation, elevated liver function tests, hepatic vascular congestion, obstructive cholestasis, non-fasting state, and infiltrative diseases such as amyloidosis and lymphoma. In some patients with NAFLD, the liver stiffness thresholds for compensated advanced chronic liver disease may be lower. In causes other than viral hepatitis and NAFLD, liver stiffness thresholds are not well established. Electronically signed by: Demetri Hughes MD 05/01/2025 08:42 AM [facility]
--- OUTSIDE RECORDS SUMMARY | 2025-05-01 07:46 | XMS_ITS | Clinical Summary ---
Author Organization [facility] Address [address] [place] [address] Phone Care Team Providers Care Components Engineer Name Role Phone Angela Luz MD [...] EST Hospital Encounter [facility] [address] [place] [address] Encounter for screening mammogram for breast cancer Discharge Disposition: Home or Self Care 03/26/2025 9:00 AM EST Office Visit Orthopedic Surgery - [place] [address] [facility] [address] [place] [phone] Silviano Ingram DPM Controlled type 2 diabetes with neuropathy ([facility] V24, [facility] V28) (Primary Dx); Pain in toes of both feet; Arthritis of both feet; Hammertoes of both feet; Dermatophytosis, nail from Last 3 Months Immunizations Immunization Administration Dates Next Due COVID-19 (Pfizer/Comirnaty) 12yo and older 06/28/2023 [employer] SARS-CoV-2 COVID-19, mRNA, LNP-S, preservative free 06/10/2022,10/07/2021,03/02/2021,2020,07/02/2020 [...] to type 2 di abetes mellitus ([facility] V24, [facility] V28) DX:CKD stage 3 due to type 2 diabetes mellitus (HCC) Insomnia DX:Insomnia Chronic shoulder pain DX:Chronic shoulder pain Type 2 diabetes mellitus wit h diabetic neuropathy ([facility] V24, [facility] V28) DX:Type 2 diabet es mellitus with diabetic neuropathy (HCC) Heel pain DX:Heel pain Venous insufficiency DX:Venous i nsufficiency HTN, goal below 140/80 DX:HTN, g oal below 140/80 Vitamin B12 deficiency anemia DX :Vitamin B12 deficiency anemia Allergic rhinitis DX:Allergic rh initis Solitary pulmonary nodule DX:Alisa itary pulmonary nodule Nonproliferative diabetic re tinopathy associated with type 2 diabetes mellitus ([facility] V24, [facility] V28) DX:Nonproliferative diabeti c retinopathy associated with type 2 diabetes mellitus (HCC) Mild obstructive sleep apnea DX: Mild obstructive sleep apnea RLS (restless legs syndrome) DX: RLS (restless legs syndrome) Anemia DX:Anemia PAD (peripheral artery disea se) ([facility] V24) DX:PAD (peripheral artery di sease) ([facility]) Hyperlipidemia DX:Hyperlipidemi a Essential hypertension, benign D X:Essential hypertension, benign Glaucoma DX:Glaucoma DM (diabetes mellitus) type II controlled, neurological manifestation ([facility] V24, [facility] V28) DX:DM (diabetes mellitus) ty pe II controlled, neurological manifestation ([facility]) Breast cancer ([facility] V24, [facility] V28) Social History Tobacco Use Types Packs/Day [...] AM EST Office Visit Orthopedic Surgery - [place] [address] [phone] Silviano Ingram, DPHelder [address] [address] 11/25/2025 8:30 AM EDT Office Visit [facility] Hematology Oncology [address] [place] [phone] Nabeel March MD [address] [place] [address] Health Maintenance Due Date Last Done Comments [...] year. Mammography location: [facility] [address], [address] -------- FINAL REPORT -------- Dictated By: Raymon Pruitt Dictated Date: 04/21/2025 09:15 ET Assigned Physician: Raymon Pruitt Reviewed and Electronically Signed By: Raymon Pruitt Signed Date: 04/21/2025 09:25 ET Workstation ID: [id number] Transcribed By: Self Edit Transcribed Date: 04/21/2025 [...] Tomosynthesis. Computer-aided detection was employed with the [employer] AI 3-D. TISSUE DENSITY: The breasts are [...] Tomosynthesis. Computer-aided detection was employed with the [employer] 3-D. TISSUE DENSITY: The breasts are heterogeneously [...] year. Mammography location: [facility] [address], [address] -------- FINAL REPORT -------- Dictated By: Raymon Pruitt Dictated Date: 04/21/2025 09:15 ET Assigned Physician: Raymon Pruitt Reviewed and Electronically Signed By: Raymon Pruitt Signed Date: 04/21/2025 09:25 ET Workstation ID: [id number] Transcribed By: Self Edit Transcribed Date: 04/21/2025 [...] probability of hip fracture of 4.0%. Code 85643 -------- FINAL REPORT -------- Dictated By: Joby Brand Dictated Date: 04/19/2024 09:53 ET Assigned Physician: Joby Brand Reviewed and Electronically Signed By: Joby Brand Signed Date: 04/19/2024 09:54 ET Workstation ID: [id number] Transcribed By: Self Edit Transcribed Date: 04/19/2024 [...] density of the femurs bilaterally is 0.907 gm/gw8bmumt is 90% of that of young normals [...] probability of hip fracture of 4.0%. Code 22029 -------- FINAL REPORT -------- Dictated By: Joby Brand Dictated Date: 04/19/2024 09:53 ET Assigned Physician: Joby Brand Reviewed and Electronically Signed By: Joby Brand Signed Date: 04/19/2024 09:54 ET Workstation ID: [id number] Transcribed By: Self Edit Transcribed Date: 04/19/2024 09:53 ET us Nabeel March MD IMG DXA PROCEDURES Final Res ult * Lipid panel (05/23/2023) [facility] Triglycerides 0 mg/dL Comment:No interpretation Cholesterol 0 mg/dL Comment:No interpretation HDL 0 mg/dL Comment:No interpretation LDL Cholesterol 0 mg/dL Comment:No interpretation Blood Venous blood specimen / Unknown Result [facility] Historical Provider LAB BLOOD ORDERABLES Ruthy l Result * Urine Albumin Creatinine Ratio (10/07/2022) [facility] Urine Albumin Creatinine Ratio Abstracted Result [facility] Provider HEALTH MAINTENANCE Final Result * Annual BMP Blood Test (01/13/2022) [facility] Annual BMP Blood Test Abstracted Result [facility] Provider HEALTH MAINTENANCE Final Result * Hepatitis C Screening (11/17/2021) [facility] Hepatitis C Screening Abstracted Result [facility] Provider HEALTH MAINTENANCE Final Result * Hemoglobin A1c (03/29/2021) [facility] Hemoglobin A1C 0.0 % Comment:No interpretation Blood Venous blood specimen / Unknown Result [facility] Provider LAB BLOOD ORDERABLES Ruthy l Result from Last 3 Months or Most Recently Relevant to Health Maintenance Insurance [facility] MEDICARE Member Subscriber Plan / Payer (Ef fective 2023-Present) Name:Dominguez Angela Moreno Relation to Subscriber:Self Name:Angela Dominguez Payer ID:[id number] Group ID:[id number] Type:Not on file Address: [address] [place] [phone] Care Teams Components Engineer Relationship Specialty Start Date End Date Angela Luz MD [address] [facility] [address] [place] [phone] PCP - General Internal Medicine 01/28/21
--- OUTSIDE RECORDS SUMMARY | 2025-05-01 07:46 | XMS_ITS | Clinical Summary ---
Author Organization [facility] 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 Last CT (abd) 06/02/12 - 5x7 pulm nodule, recommended rpt CT to confirm 2 years of stability. Obstructive sleep apnea 01/31/201212/21 Restless legs 10/06/2011 01/11/2021 Glaucoma 02/15/2011 01/11/2021 Hyperlipidemia 02/15/2011 01/11/2021 Encounters Date Type Department Care Team Description 04/16/2025 Refill [facility] [address] [place] [address] Beau Vargas MD 03/24/2025 Refill [facility] [address] [place] [address] Beau Vargas MD Hypertension; Type 2 diabetes [...] Visit [facility] [address] [place] [address] Beau Vargas MD [address] [facility] [address] [place] [address] Health Maintenance Due Date Last Done Comments [...] , 02/26/2021, Additional history exists Insurance [facility] MCR ([id number]) [facility] MCR ([id number]) [place] [id number] Care Teams Oyster Bed Worker Relationship Specialty Start Date End Date Angela Luz MD [address] [place] [address] [place] [address] PCP - General Internal Medicine 01/12/21
== END 2025-05-01 07:37 | disposition home or self-care (01) ==
LOC: HO.US 07:36
PROVIDERS: PCP Internal Medicine; Visit Provider Internal Medicine Gastroenterology
DX: K75.81 Nonalcoholic steatohepatitis (NASH) (principal); K74.60 Unspecified cirrhosis of liver; R79.89 Other specified abnormal findings of blood chemistry
CPT/HCPCS: 76705; 76981

== ENCOUNTER → 2025-05-01 07:36 | Outpatient (BNV) | payer OTHER, SELFPAY | PROVIDERS: PCP Internal Medicine; Visit Provider Radiology Diagnostic Radiology | DX: K75.81 Nonalcoholic steatohepatitis (NASH) (principal); Z90.49 Acquired absence of other specified parts of digestive tract | CPT/HCPCS: 76705 ==